=== PATIENT | female | born 1980 | race Caucasian/White ===

== ENCOUNTER → 2016-06-25 | Outpatient (REF) | payer OTHER ==
[2016-06-25 14:51] LABS: BASO % 0.2 % (0.0-1.0); EOS # 0.1 K/mm3 (0.0-0.50); EOS % 1.4 % (0.0-3.0); LARGE UNSTAINED CELL # 0.1 K/mm3 (0.0-0.4); LARGE UNSTAINED CELL % 2.1 % (0.0-4.0); LYMPH # 1.5 K/mm3 (1.5-4.5); LYMPH % 23.6 % (24.0-44.0); MEAN CORPUSCULAR HEMOGLOBIN 29.3 pg (27.0-33.0); MEAN CORPUSCULAR HGB CONC 32.5 g/dl (32.0-36.5); MEAN CORPUSCULAR VOLUME 90.3 fl (80.0-96.0); MONO # 0.3 K/mm3 (0.0-0.8); MONO % 5.6 % (0.0-5.0); NEUTROPHILS % 67.1 % (36.0-66.0); PLATELET COUNT, AUTOMATED 261 k/mm3 (150-450); RED CELL DISTRIBUTION WIDTH 13.3 % (11.5-14.5); WHITE BLOOD COUNT 5.9 K/mm3 (4.0-10.0)
== END ==
LOC: M LABNEURO 12:57
PROVIDERS: ATTEND Physician Assistant Medical
DX: E55.9 Vitamin D deficiency, unspecified (principal); G70.00 Myasthenia gravis without (acute) exacerbation

== ENCOUNTER → 2016-11-28 | Outpatient (REF) | payer OTHER ==
[~2016-11-28] MED LIST: CELL500T PO; DIAZ1CON PO; DIAZ5TAB PO; GABA-282 PO; LORA10TA2 PO; MAGNESIUM OIL TOP; MEST60TA PO; METH36TA2 PO; MOME50SP; VITA1CAP7 PO; ZOLO100T PO
[2016-11-28 21:11] LABS: BASO % 0.5 % (0.0-1.0); EOS # 0.2 K/mm3 (0.0-0.50); EOS % 2.3 % (0.0-3.0); LARGE UNSTAINED CELL # 0.1 K/mm3 (0.0-0.4); LARGE UNSTAINED CELL % 1.9 % (0.0-4.0); LYMPH # 1.7 K/mm3 (1.5-4.5); LYMPH % 23.1 % (24.0-44.0); MEAN CORPUSCULAR HEMOGLOBIN 29.8 pg (27.0-33.0); MEAN CORPUSCULAR HGB CONC 32.3 g/dl (32.0-36.5); MEAN CORPUSCULAR VOLUME 92.1 fl (80.0-96.0); MONO # 0.4 K/mm3 (0.0-0.8); MONO % 5.9 % (0.0-5.0); NEUTROPHILS # 4.6 K/mm3 (1.8-7.7); NEUTROPHILS % 66.5 % (36.0-66.0); PLATELET COUNT, AUTOMATED 231 k/mm3 (150-450); RED CELL DISTRIBUTION WIDTH 13.2 % (11.5-14.5); WHITE BLOOD COUNT 6.8 K/mm3 (4.0-10.0)
[2016-12-01 10:35] LABS: CONTROL LINE MONO RF C INT CTR LINE PRESENT
== END ==
LOC: M LABDRWAD 09:18
PROVIDERS: ATTEND Physician Assistant Medical
DX: R59.0 Localized enlarged lymph nodes (principal)

== ENCOUNTER → 2016-12-20 | Outpatient (REF) | payer OTHER ==
[2016-12-20 16:01] LABS: BASO % 0.3 % (0.0-1.0); EOS % 0.1 % (0.0-3.0); IMMATURE GRANULOCYTE % 0.4 % (0-0); LYMPH # 2.4 10^3/uL (1.5-4.5); LYMPH % 16.2 % (24.0-44.0); MEAN CORPUSCULAR HEMOGLOBIN 29.5 pg (27.0-33.0); MEAN CORPUSCULAR HGB CONC 32.7 g/dl (32.0-36.5); MONO # 0.6 10^3/uL (0.0-0.8); MONO % 4.1 % (0.0-5.0); NEUTROPHILS # 11.9 10^3/uL (1.8-7.7); NEUTROPHILS % 78.9 % (36.0-66.0); PLATELET COUNT, AUTOMATED 297 10^3/uL (150-450); RED CELL DISTRIBUTION WIDTH 13.2 % (11.5-14.5)
[2016-12-20 16:02] LABS: ADD MORPHOLOGY? NO
[2016-12-20 16:25] LABS: ERYTHROCYTE SEDIMENTATION RATE 6 mm/hr (0-20)
[2016-12-20 16:34] LABS: ALT/SGPT 21 U/L (12-78); AST/SGOT 10 U/L (15-37)
[2016-12-22 10:55] LABS: FOLATE > 24.0 NG/ML; VITAMIN B12 LEVEL 760 PG/ML
[2016-12-24 16:03] LABS: Lyme Disease IgG/IgM Antibodie See Separate Report
== END ==
LOC: M LABDRWAD 15:58
PROVIDERS: ATTEND Physician Assistant Medical
DX: R51 Headache (principal); M79.7 Fibromyalgia

== ENCOUNTER → 2016-12-26 | Outpatient (REF) | payer OTHER ==
[2016-12-26 20:25] LABS: MEAN CORPUSCULAR HEMOGLOBIN 28.8 pg (27.0-33.0); MEAN CORPUSCULAR HGB CONC 32.2 g/dl (32.0-36.5); MEAN CORPUSCULAR VOLUME 89.6 fl (80.0-96.0); RED CELL DISTRIBUTION WIDTH 13.3 % (11.5-14.5); WHITE BLOOD COUNT 10.8 10^3/uL (4.0-10.0)
[2016-12-26 20:31] LABS: ANION GAP 5 MEQ/L (8-16); BLOOD UREA NITROGEN 14 MG/DL (7-18); CALCIUM LEVEL 9.3 MG/DL (8.5-10.1); CARBON DIOXIDE LEVEL 29 MEQ/L (21-32); CHLORIDE LEVEL 107 MEQ/L (98-107); CREATININE FOR GFR 0.85 MG/DL (0.55-1.02); GLOMERULAR FILTRATION RATE > 60.0 (>60); GLUCOSE, FASTING 89 MG/DL (70-105); POTASSIUM SERUM 4.3 MEQ/L (3.5-5.1); SODIUM LEVEL 141 MEQ/L (136-145)
== END ==
LOC: M LABSMT 13:36
PROVIDERS: ATTEND Specialist
DX: Z01.812 Encounter for preprocedural laboratory examination (principal); N39.3 Stress incontinence (female) (male); N32.81 Overactive bladder

== ENCOUNTER → 2016-12-31 | Outpatient (CLI) | payer OTHER ==
--- NOTE | 2016-12-31 14:12 | PFTRPT ---
Tech: Franklin PALOMINO RRT Age: 36 Sex: Female Race: Height: 65.00 Inches Weight: 187.00 Lbs BSA: 1.92 Diagnosis: G70.00 PULMONARY FUNCTION REPORT ORDERING PROVIDER: Jamilah Ya DO DATE OF SERVICE: 12/31/16 SPIROMETRY: Excellent technical quality. The forced vital capacity is normal. The FEV1 is in proportion. The obstructive index is, therefore, normal. FLOW VOLUME LOOP: The expiratory limb of the flow volume loop is normal. LUNG VOLUMES: The total lung capacity is normal. The residual volume is in proportion. DIFFUSION CAPACITY: The diffusion capacity is minimally reduced, but is appropriate for alveolar volume. HEMOGLOBIN: No hemoglobin is available for correction. AIRWAY MECHANICS: Airways resistance and conductance are normal. IMPRESSION: Mild reduction in the absolute diffusion capacity. Please correlate clinically. MTDD
== END ==
LOC: M CARPUL 13:37
PROVIDERS: ATTEND Family Medicine
DX: G70.00 Myasthenia gravis without (acute) exacerbation (principal)

== ENCOUNTER → 2016-12-31 | Outpatient (CLI) | payer OTHER ==
--- NOTE | 2017-01-01 06:29 | REP ---
Clinical: Preoperative assessment . Comparison: 11/07/2009 . Technique: PA and lateral. Findings: The mediastinum and cardiac silhouette are normal. Evidence for prior sternotomy. Airway is patent and midline. The lung tanner are clear and without acute consolidation, effusion, or pneumothorax. The skeletal structures are intact and normal. Impression: 1. No acute cardiopulmonary process. Signed by Mt Esteban MD 01/01/2017 06:21 A
== END ==
LOC: M ADAMS 15:21
PROVIDERS: ATTEND Family Medicine
DX: Z01.810 Encounter for preprocedural cardiovascular examination (principal)

== ENCOUNTER → 2017-01-01 | Outpatient (REF) | payer OTHER | LOC: M SFHCADAM 09:16 | PROVIDERS: ATTEND Family Medicine | DX: Z01.419 Encounter for gynecological examination (general) (routine) without abnormal findings (principal) ==

== ENCOUNTER 2017-01-06 09:41 | Day surgery (SDC) | payer OTHER ==
[~2017-01-06] VITALS: Ht 165.1 cm; Wt 84.8 kg
[~2017-01-06 09:41] MED LIST changes: -MAGNESIUM OIL TOP
[2017-01-06] MEDS ORDERED: LR 1,000 ML IV ONE (10:00)
[2017-01-06] MEDS ORDERED: MAGNESIUM OIL TOP (10:49)
[2017-01-06] MEDS ORDERED: PROPOFOL 200 MG/20 ML VIAL As Ordered ONE ×3 (11:11→12:54)
[2017-01-06] MEDS ORDERED: MIDAZOLAM INJ 2 MG/2 ML VIAL (J2250) As Ordered ONE ×2 (11:12→12:00)
[2017-01-06] MEDS ORDERED: fentaNYL 100 MCG/2 ML INJECTION (J3010) As Ordered ONE (11:12)
[2017-01-06] MEDS ORDERED: LIDOCAINE 1% SDV INJ 30 ML VIAL As Ordered ONE (11:15)
[2017-01-06] MEDS ORDERED: SODIUM BICARBONATE 4.2% INJ 10 ML SYRINGE As Ordered ONE (11:15)
[2017-01-06] MEDS ORDERED: LIDOCAINE 1% MDV INJ 50 ML VIAL As Ordered ONE (11:18)
[2017-01-06] MEDS ORDERED: BACITRACIN PWD 50,000 UNITS VIAL As Ordered ONE (12:44)
--- NOTE | 2017-01-06 13:47 | REP ---
C-ARM VIEWS PELVIS: Two C-arm views of the pelvis performed during placement of InterStim device. Catheter is seen with the tip in the right pelvic region. 22 seconds fluoroscopy time utilized. Signed by Mauricio Cruz MD 01/06/2017 08:00 P
[2017-01-06] MEDS ORDERED: PERCOCET 5MG/325MG TAB PO ONE (14:00)
[2017-01-06 15:07] VITALS: BP 157/85
--- NOTE | 2017-01-06 18:10 | RO ---
DATE OF PROCEDURE: 01/06/2017 PREOPERATIVE DIAGNOSIS: Urinary urgency, frequency, and urge incontinence. POSTOPERATIVE DIAGNOSIS: Urinary urgency, frequency, and urge incontinence. PROCEDURE: Placement of a right neurostimulator electrode and implantable pulse generator with the InterStim device. SURGEON: Dr. Toyin Perez MILLING SUPERVISOR: ANESTHESIA: MAC. MEDICATIONS: Ancef 2 grams preoperatively. DRAINS: None. COMPLICATIONS: None. FINDINGS: The patient felt the neurostimulator on the right side of the vaginal region, and she also had anal bellowing and toes at low amplitudes. INDICATIONS FOR PROCEDURE: The patient is a 36-year-old female with myasthenia gravis with severe urinary urgency, frequency, and occasional urge incontinence in a patient who was unable to tolerate anticholinergic medications because of severe fatigue. She voided as often as 20 times a day with nocturia times four. Urodynamic studies were done 11/06, and this showed urgency at only 57 mL and a maximum capacity of only 127 mL. We did a bilateral percutaneous InterStim test in the office on 12/18/2016, and the right sided lead helped significantly where she could hold her urine for 3-4 hours at a time, which was a significant improvement for her. After discussing all different options, alternatives, risks, and benefits, it was decided to bring her to the operating room for placement of the InterStim device in what we used to call stage I and stage II with placement of the percutaneous neurostimulator electrode and implantable pulse generator at the same time. The risks discussed included but were not limited to general anesthesia, reactions to medication, infections, bleeding, not having the same results that she wished that she could have, nerve injury, pain from the device, problems with the device itself or with the neurostimulator electrode requiring revisions in the future, and knowing that the battery will not last forever, pain at the implantable pulse generator site and movement of the implantable pulse generator, again also requiring revisions. We were very clear that this procedure oftentimes comes with revisions and issues that do need to be dealt with on an ongoing basis. After clearly understanding all different options, alternatives, risks, and benefits, we decided to proceed with the procedure. DESCRIPTION OF PROCEDURE: The patient was brought into the operating room and placed prone on the padded operating room table. MAC was given. She was prepped and draped in the usual fashion. 1% lidocaine with sodium bicarbonate was then mixed and local anesthesia was given in the area of where the percutaneous electrode was placed previously on the right-hand side. We had marked the area where the percutaneous electrode was on the right. Fluoroscopy was then utilized, and we were able to visualize midline and the area of the S3 foramen. A needle was then placed through the previous site, and we were able to get into what appeared to be the S3 foramen by fluoroscopy. At this point, the needle was tested, and she felt this in the vaginal region and also had good movement of her first toe and anal bellowing. Next, an incision was made over the needle and using a Seldinger technique, a permanent neurostimulator electrode was then placed. This was tested on 0, 1, 2 and 3. It was placed a little bit deeper than we are accustomed to and we did not straddle the bone at 2 and 3 because we got better results on 0, 1, 2 and 3 when this was deeper. On all these leads, she felt this vaginally with excellent first toe movement and anal bellowing at very low amplitudes. When this was decided it was in excellent placement, the lead was left in place and fluoroscopy images were saved. Next, an incision was made over her right upper buttocks in an area that was mapped out in the preoperative area where it would be comfortable to place her implantable pulse generator. At this point, an approximately 4 cm incision was made, and this was brought down to fascia and an area for the neurostimulator pocket was then made using sharp and blunt dissection. Copious antibiotic irrigation was utilized and hemostasis was obtained using electrocautery. Next, the neurostimulator electrode was tunneled from the midline out through the area of the implantable pulse generator on the right upper buttocks and then this was attached. The neurostimulator electrode was then attached to the implantable pulse generator. The implantable pulse generator was then placed in the pocket making sure that the InterStim logo was face-up. Once this was in the pocket, this was tested and impedance was normal and all the leads appeared to be functioning correctly. The pocket was just large enough for the implantable pulse generator to fit correctly and next, tissue was brought over the neurostimulator electrode and then Yessica's fascia was also reapproximated using #2-0 chromic sutures. Skin was closed using jarrett. The patient tolerated the procedure well and was returned to the recovery room in stable condition.
[2017-01-06] MEDS ORDERED: CEPHALEXIN 500 MG CAP PO SCH (21:00)
== END 2017-01-06 15:08 | disposition home or self-care (01) ==
LOC: M SDC 09:41
PROVIDERS: ATTEND Specialist
DX: R39.15 Urgency of urination (principal); R35.0 Frequency of micturition; N39.41 Urge incontinence; N32.81 Overactive bladder; R53.83 Other fatigue; N83.209 Unspecified ovarian cyst, unspecified side; K21.9 Gastro-esophageal reflux disease without esophagitis; G70.00 Myasthenia gravis without (acute) exacerbation; F32.9 Major depressive disorder, single episode, unspecified; F90.9 Attention-deficit hyperactivity disorder, unspecified type; M79.7 Fibromyalgia; F41.9 Anxiety disorder, unspecified; G62.9 Polyneuropathy, unspecified; R06.83 Snoring; G47.33 Obstructive sleep apnea (adult) (pediatric); Z88.1 Allergy status to other antibiotic agents; Z88.8 Allergy status to other drugs, medicaments and biological substances; Z91.018 Allergy to other foods; Z91.09 Other allergy status, other than to drugs and biological substances; Z79.899 Other long term (current) drug therapy; Z87.891 Personal history of nicotine dependence; Z98.51 Tubal ligation status
CPT/HCPCS: 64581; 64590; 76000; C1767; C1787

== ENCOUNTER → 2017-01-31 | Outpatient (REF) | payer OTHER ==
[~2017-01-31] MED LIST changes: +MAGNESIUM OIL TOP; +PRED20TA PO; +VALI5TAB PO; +VIIB10TA
== END ==
LOC: M LAB REF 07:21
PROVIDERS: ATTEND Physician Assistant
DX: J02.9 Acute pharyngitis, unspecified (principal)

== ENCOUNTER 2017-02-04 17:57 | Emergency (ER) | payer OTHER ==
[~2017-02-04] VITALS: Ht 165.1 cm; Wt 84.1 kg
[~2017-02-04 17:57] MED LIST changes: -PRED20TA PO; -VALI5TAB PO; -VIIB10TA
[2017-02-04] MEDS ORDERED: VALI5TAB PO (18:08)
[2017-02-04] MEDS ORDERED: PRED20TA PO (18:08)
[2017-02-04] MEDS ORDERED: VIIB10TA (18:08)
[2017-02-04] MEDS ORDERED: MORPHINE 2 MG/ML 1ML SYRINGE IV ONE (20:30)
[2017-02-04] MEDS ORDERED: ONDANSETRON 4MG/2ML VIAL (J2405) IV ONE (20:30)
[2017-02-04] MEDS ORDERED: MORPHINE 2 MG/ML 1ML SYRINGE As Ordered ONE (21:13)
[2017-02-04] MEDS ORDERED: ONDANSETRON 4MG/2ML VIAL (J2405) As Ordered ONE (21:13)
[2017-02-04 21:14] LABS: MEAN CORPUSCULAR HEMOGLOBIN 29.3 pg (27.0-33.0); MEAN CORPUSCULAR HGB CONC 32.9 g/dl (32.0-36.5); MEAN CORPUSCULAR VOLUME 89.3 fl (80.0-96.0); PLATELET COUNT, AUTOMATED 297 10^3/uL (150-450); RED CELL DISTRIBUTION WIDTH 13.8 % (11.5-14.5); WHITE BLOOD COUNT 13.8 10^3/uL (4.0-10.0)
[2017-02-04] MEDS ORDERED: diphenhydrAMINE INJ 50MG/ML VIAL (J1200) IV STA (21:27)
[2017-02-04] MEDS ORDERED: diphenhydrAMINE INJ 50MG/ML VIAL (J1200) As Ordered ONE (21:29)
[2017-02-04 21:37] LABS: INR 0.93
[2017-02-04 21:47] LABS: ANION GAP 6 MEQ/L (8-16); BLOOD UREA NITROGEN 19 MG/DL (7-18); CALCIUM LEVEL 9.2 MG/DL (8.5-10.1); CARBON DIOXIDE LEVEL 25 MEQ/L (21-32); CHLORIDE LEVEL 109 MEQ/L (98-107); GLOMERULAR FILTRATION RATE > 60.0 (>60); GLUCOSE, FASTING 92 MG/DL (70-105); POTASSIUM SERUM 3.8 MEQ/L (3.5-5.1); SODIUM LEVEL 140 MEQ/L (136-145)
[2017-02-04 22:20] VITALS: BP 157/97
--- NOTE | 2017-02-05 07:50 | REP ---
Clinical: Atypical headaches . Comparison: 12/25/2008 . Findings: The ventricles, sulci, and cisterns are normal in position and appearance. Cruz-white differentiation is maintained. No acute intracranial hemorrhage, mass/mass effect, pathology or trauma/injury. No evidence for acute infarction. No extra-axial fluid collection. Calvarium is intact. Paranasal sinuses and mastoid air cells are clear. Impression: Normal noncontrast head CT. No evidence for acute intracranial pathology or trauma/injury. Signed by Mt Esteban MD 02/05/2017 07:42 A
== END 2017-02-04 22:23 | disposition home or self-care (01) ==
LOC: M ED 17:57
DX: R51 Headache (principal); G70.01 Myasthenia gravis with (acute) exacerbation; M79.7 Fibromyalgia; Z79.52 Long term (current) use of systemic steroids; Z79.899 Other long term (current) drug therapy; Z88.8 Allergy status to other drugs, medicaments and biological substances; Z88.2 Allergy status to sulfonamides; Z88.1 Allergy status to other antibiotic agents; Z91.048 Other nonmedicinal substance allergy status; Z91.018 Allergy to other foods; J30.89 Other allergic rhinitis
CPT/HCPCS: 70450; 80048; 85027; 85610; 96374; 96375; 99284; J1200; J2405

== ENCOUNTER → 2017-04-06 | Outpatient (CLI) | payer OTHER | LOC: M PAIN 11:00 | DX: R52 Pain, unspecified (principal); M79.7 Fibromyalgia; Z79.899 Other long term (current) drug therapy; Z87.891 Personal history of nicotine dependence; Z88.1 Allergy status to other antibiotic agents; Z88.8 Allergy status to other drugs, medicaments and biological substances | CPT/HCPCS: G0463 ==

== ENCOUNTER → 2017-04-10 | Outpatient (REF) | payer OTHER ==
[2017-04-10 21:33] LABS: BASO # 0.1 10^3/uL (0.0-0.2); BASO % 0.9 % (0.0-1.0); EOS # 0.1 10^3/uL (0.0-0.50); EOS % 0.8 % (0.0-3.0); HEMATOCRIT 44.3 % (36.0-47.0); HEMOGLOBIN 14.3 g/dl (12.0-16.0); IMMATURE GRANULOCYTE % 0.3 % (0-0); LYMPH % 30.5 % (24.0-44.0); MEAN CORPUSCULAR HEMOGLOBIN 29.2 pg (27.0-33.0); MEAN CORPUSCULAR HGB CONC 32.3 g/dl (32.0-36.5); MEAN CORPUSCULAR VOLUME 90.4 fl (80.0-96.0); MONO # 0.6 10^3/uL (0.0-0.8); MONO % 8.9 % (0.0-5.0); NEUTROPHILS # 3.8 10^3/uL (1.8-7.7); NEUTROPHILS % 58.6 % (36.0-66.0); PLATELET COUNT, AUTOMATED 304 10^3/uL (150-450); RED CELL DISTRIBUTION WIDTH 13.1 % (11.5-14.5); WHITE BLOOD COUNT 6.4 10^3/uL (4.0-10.0)
[2017-04-10 21:51] LABS: ALBUMIN 4.4 GM/DL (3.2-5.2); ALBUMIN/GLOBULIN RATIO 1.42 (1.00-1.93); ALKALINE PHOSPHATASE 69 U/L (45-117); ALT/SGPT 17 U/L (12-78); ANION GAP 4 MEQ/L (8-16); AST/SGOT 8 U/L (7-37); BILIRUBIN,TOTAL 0.4 MG/DL (0.2-1.0); BLOOD UREA NITROGEN 13 MG/DL (7-18); C REACTIVE PROTEIN QUANTITATIV < 0.30 MG/DL (0.00-0.30); CARBON DIOXIDE LEVEL 30 MEQ/L (21-32); CHLORIDE LEVEL 107 MEQ/L (98-107); CREATININE FOR GFR 0.92 MG/DL (0.55-1.02); GLOMERULAR FILTRATION RATE > 60.0 (>60); GLUCOSE, FASTING 108 MG/DL (70-105); POTASSIUM SERUM 4.6 MEQ/L (3.5-5.1); SODIUM LEVEL 141 MEQ/L (136-145); TOTAL PROTEIN 7.5 GM/DL (6.4-8.2)
[2017-04-10 22:10] LABS: ERYTHROCYTE SEDIMENTATION RATE 3 mm/hr (0-20)
[2017-04-15 00:06] LABS: Lyme Disease IgG/IgM Antibodie <0.91 ISR (0.00-0.90); Lyme Disease IgM Ab Quantitati <0.80 index (0.00-0.79)
== END ==
LOC: M LAB 04-11 12:34
DX: M79.1 Myalgia (principal)

== ENCOUNTER 2017-04-28 10:01 | Outpatient (RCR) | payer OTHER | END 2017-05-20 | LOC: M PT 10:01 | DX: Z51.89 Encounter for other specified aftercare (principal); R52 Pain, unspecified; M54.5 Low back pain | CPT/HCPCS: 97010 ==

== ENCOUNTER 2017-05-11 11:45 | Emergency (ER) | payer OTHER ==
[2017-05-11 12:54] LABS: BASO # 0.1 10^3/uL (0.0-0.2); BASO % 0.8 % (0.0-1.0); EOS # 0.1 10^3/uL (0.0-0.50); EOS % 0.8 % (0.0-3.0); HEMATOCRIT 41.1 % (36.0-47.0); HEMOGLOBIN 13.6 g/dl (12.0-16.0); IMMATURE GRANULOCYTE % 0.3 % (0-3.0); LYMPH # 1.5 10^3/uL (1.5-4.5); LYMPH % 22.6 % (24.0-44.0); MEAN CORPUSCULAR HEMOGLOBIN 29.1 pg (27.0-33.0); MEAN CORPUSCULAR HGB CONC 33.1 g/dl (32.0-36.5); MEAN CORPUSCULAR VOLUME 87.8 fl (80.0-96.0); MONO # 0.5 10^3/uL (0.0-0.8); MONO % 7.1 % (0.0-5.0); NEUTROPHILS # 4.6 10^3/uL (1.8-7.7); NEUTROPHILS % 68.4 % (36.0-66.0); PLATELET COUNT, AUTOMATED 296 10^3/uL (150-450); RED BLOOD COUNT 4.68 10^6/uL (4.00-5.40); RED CELL DISTRIBUTION WIDTH 13.5 % (11.5-14.5); WHITE BLOOD COUNT 6.6 10^3/uL (4.0-10.0)
[2017-05-11] MEDS: LORazepam 2 MG/ML VIAL (J2060) IV (13:01)
[2017-05-11 13:25] LABS: ALBUMIN 4.2 GM/DL (3.2-5.2); ALBUMIN/GLOBULIN RATIO 1.35 (1.00-1.93); ALKALINE PHOSPHATASE 69 U/L (45-117); ALT/SGPT 30 U/L (12-78); ANION GAP 5 MEQ/L (8-16); AST/SGOT 17 U/L (7-37); BILIRUBIN,TOTAL 0.5 MG/DL (0.2-1.0); BLOOD UREA NITROGEN 6 MG/DL (7-18); C REACTIVE PROTEIN QUANTITATIV < 0.30 MG/DL (0.00-0.30); CARBON DIOXIDE LEVEL 26 MEQ/L (21-32); CHLORIDE LEVEL 109 MEQ/L (98-107); CREATININE FOR GFR 0.93 MG/DL (0.55-1.30); GLOMERULAR FILTRATION RATE > 60.0 (>60); GLUCOSE, FASTING 94 MG/DL (70-100); POTASSIUM SERUM 4.1 MEQ/L (3.5-5.1); SODIUM LEVEL 140 MEQ/L (136-145); TOTAL PROTEIN 7.3 GM/DL (6.4-8.2)
[2017-05-11 13:40] LABS: ERYTHROCYTE SEDIMENTATION RATE 5 mm/hr (0-20)
[2017-05-14 14:12] LABS: SEROTONIN QUANTITATIVE LEVEL 9 ng/mL (0-420)
== END 2017-05-11 14:35 | disposition home or self-care (01) ==
LOC: M ED 11:45
DX: R25.2 Cramp and spasm (principal); M25.60 Stiffness of unspecified joint, not elsewhere classified; M79.7 Fibromyalgia; G70.01 Myasthenia gravis with (acute) exacerbation; Z98.890 Other specified postprocedural states; Z91.048 Other nonmedicinal substance allergy status; Z88.8 Allergy status to other drugs, medicaments and biological substances; Z88.1 Allergy status to other antibiotic agents; Z88.2 Allergy status to sulfonamides
CPT/HCPCS: J2060

== ENCOUNTER → 2017-05-12 | Outpatient (REF) | payer OTHER ==
[2017-05-12 15:02] LABS: BASO # 0.1 10^3/uL (0.0-0.2); BASO % 0.8 % (0.0-1.0); EOS # 0.1 10^3/uL (0.0-0.50); HEMATOCRIT 42.8 % (36.0-47.0); HEMOGLOBIN 13.8 g/dl (12.0-16.0); IMMATURE GRANULOCYTE % 0.3 % (0-3.0); LYMPH # 1.6 10^3/uL (1.5-4.5); LYMPH % 25.2 % (24.0-44.0); MEAN CORPUSCULAR HEMOGLOBIN 28.6 pg (27.0-33.0); MEAN CORPUSCULAR HGB CONC 32.2 g/dl (32.0-36.5); MEAN CORPUSCULAR VOLUME 88.8 fl (80.0-96.0); MONO # 0.5 10^3/uL (0.0-0.8); MONO % 7.4 % (0.0-5.0); NEUTROPHILS % 65.3 % (36.0-66.0); PLATELET COUNT, AUTOMATED 304 10^3/uL (150-450); RED BLOOD COUNT 4.82 10^6/uL (4.00-5.40); RED CELL DISTRIBUTION WIDTH 13.6 % (11.5-14.5); WHITE BLOOD COUNT 6.2 10^3/uL (4.0-10.0)
[2017-05-12 15:11] LABS: ALBUMIN/GLOBULIN RATIO 1.43 (1.00-1.93); ALKALINE PHOSPHATASE 68 U/L (45-117); ALT/SGPT 23 U/L (12-78); ANION GAP 8 MEQ/L (8-16); AST/SGOT 14 U/L (7-37); BILIRUBIN,TOTAL 0.6 MG/DL (0.2-1.0); BLOOD UREA NITROGEN 6 MG/DL (7-18); CALCIUM LEVEL 9.2 MG/DL (8.5-10.1); CARBON DIOXIDE LEVEL 27 MEQ/L (21-32); CHLORIDE LEVEL 106 MEQ/L (98-107); CREATININE FOR GFR 0.98 MG/DL (0.55-1.30); GLOMERULAR FILTRATION RATE > 60.0 (>60); GLUCOSE, FASTING 88 MG/DL (70-100); POTASSIUM SERUM 4.2 MEQ/L (3.5-5.1); SODIUM LEVEL 141 MEQ/L (136-145); TOTAL PROTEIN 6.8 GM/DL (6.4-8.2)
== END ==
LOC: M LABNEURO 09:48
DX: G70.00 Myasthenia gravis without (acute) exacerbation (principal)

== ENCOUNTER → 2017-07-06 | Outpatient (REF) | payer OTHER ==
[2017-07-06 19:25] LABS: OSMOLALITY SERUM 281 MOSM/KG (275-295)
[2017-07-06 19:31] LABS: ALBUMIN 3.9 GM/DL (3.2-5.2); ALBUMIN/GLOBULIN RATIO 1.18 (1.00-1.93); ALKALINE PHOSPHATASE 83 U/L (45-117); ALT/SGPT 32 U/L (12-78); ANION GAP 5 MEQ/L (8-16); AST/SGOT 20 U/L (7-37); BILIRUBIN,TOTAL 0.5 MG/DL (0.2-1.0); BLOOD UREA NITROGEN 9 MG/DL (7-18); CALCIUM LEVEL 9.1 MG/DL (8.5-10.1); CARBON DIOXIDE LEVEL 27 MEQ/L (21-32); CHLORIDE LEVEL 108 MEQ/L (98-107); CREATININE FOR GFR 0.88 MG/DL (0.55-1.30); GLOMERULAR FILTRATION RATE > 60.0 (>60); GLUCOSE, FASTING 98 MG/DL (70-100); POTASSIUM SERUM 3.8 MEQ/L (3.5-5.1); SODIUM LEVEL 140 MEQ/L (136-145); TOTAL PROTEIN 7.2 GM/DL (6.4-8.2); URIC ACID 5.1 MG/DL (2.6-6.0)
[2017-07-06 19:45] LABS: CORTISOL PM 10.7 UG/DL (3.1-16.7)
[2017-07-07 13:17] LABS: OSMOLALITY URINE 619 MOSM/KG (500-800)
== END ==
LOC: M LABDRWAD 18:44
DX: E22.2 Syndrome of inappropriate secretion of antidiuretic hormone (principal)

== ENCOUNTER 2017-08-27 11:23 | Emergency (ER) | payer OTHER ==
[2017-08-27 12:03] LABS: KETONE, URINE AUTO RFX NEGATIVE (NEGATIVE); NITRITE, URINE AUTO RFX NEGATIVE (NEGATIVE); RBC, URINE AUTO RFX TNTC /HPF (0-3); SPECIFIC GRAVITY UR AUTO RFX 1.027 (1.002-1.035); SQUAM EPITHELIAL CELL UR AURFX 2 /HPF (0-6)
[2017-08-27 12:14] LABS: LEUKOCYTE ESTERASE UR AUTO RFX 3+ (NEGATIVE); WBC, URINE AUTO RFX TNTC /HPF (0-3)
[2017-08-27] MEDS: PHENAZOPYRIDINE 100 MG TAB PO (13:56)
[2017-08-27] MEDS: CEPHALEXIN 500 MG CAP PO (13:56)
[2017-08-27] MEDS: IBUPROFEN 800 MG TAB PO (13:57)
== END 2017-08-27 14:00 | disposition home or self-care (01) ==
LOC: M ED 11:23
DX: N30.01 Acute cystitis with hematuria (principal); G70.01 Myasthenia gravis with (acute) exacerbation; M79.7 Fibromyalgia; K21.9 Gastro-esophageal reflux disease without esophagitis; F90.9 Attention-deficit hyperactivity disorder, unspecified type; Z87.42 Personal history of other diseases of the female genital tract; Z91.048 Other nonmedicinal substance allergy status; Z91.018 Allergy to other foods; Z88.8 Allergy status to other drugs, medicaments and biological substances; Z88.2 Allergy status to sulfonamides; Z88.1 Allergy status to other antibiotic agents; Z79.899 Other long term (current) drug therapy
CPT/HCPCS: 81001

== ENCOUNTER 2017-08-31 12:17 | Inpatient (IN) | payer MEDICAID, OTHER ==
[2017-08-31 13:28] LABS: HEMATOCRIT 40.2 % (36.0-47.0); HEMOGLOBIN 13.3 g/dl (12.0-15.5); MEAN CORPUSCULAR HEMOGLOBIN 30.6 pg (27.0-33.0); MEAN CORPUSCULAR HGB CONC 33.1 g/dl (32.0-36.5); MEAN CORPUSCULAR VOLUME 92.4 fl (80.0-96.0); PLATELET COUNT, AUTOMATED 264 10^3/uL (150-450); RED BLOOD COUNT 4.35 10^6/uL (4.00-5.40); RED CELL DISTRIBUTION WIDTH 13.2 % (11.5-14.5); WHITE BLOOD COUNT 6.3 10^3/uL (4.0-10.0)
[2017-08-31 13:40] LABS: CONTROL LINE HCG INT CTR LINE PRESENT; HCG, SERUM QUALITATIVE NEGATIVE (NEGATIVE)
[2017-08-31 13:47] LABS: AMPHETAMINES LEVEL URINE NEGATIVE (NEGATIVE); BARBITURATES URINE NEGATIVE (NEGATIVE); BENZODIAZEPINES URINE NEGATIVE (NEGATIVE); CANNABINOIDS URINE POSITIVE (NEGATIVE); COCAINE METABOLITE URINE NEGATIVE (NEGATIVE); METHADONE URINE NEGATIVE (NEGATIVE); OPIATES URINE NEGATIVE (NEGATIVE); PHENCYCLIDINE URINE NEGATIVE (NEGATIVE)
[2017-08-31 13:55] LABS: ACETAMINOPHEN LEVEL < 2.0 UG/ML (10.0-30.0); ALBUMIN/GLOBULIN RATIO 1.29 (1.00-1.93); ALKALINE PHOSPHATASE 74 U/L (45-117); ALT/SGPT 18 U/L (12-78); ANION GAP 6 MEQ/L (8-16); AST/SGOT 11 U/L (7-37); BILIRUBIN,DIRECT 0.1 MG/DL (0.0-0.2); BILIRUBIN,TOTAL 0.4 MG/DL (0.2-1.0); BLOOD UREA NITROGEN 12 MG/DL (7-18); CALCIUM LEVEL 9.1 MG/DL (8.5-10.1); CARBON DIOXIDE LEVEL 27 MEQ/L (21-32); CHLORIDE LEVEL 108 MEQ/L (98-107); CREATININE FOR GFR 0.89 MG/DL (0.55-1.30); ETHYL ALCOHOL (ETHANOL) < 0.003 % (0.000-0.010); GLOMERULAR FILTRATION RATE > 60.0 (>60); GLUCOSE, FASTING 92 MG/DL (70-100); SALICYLATE LEVEL < 1.7 MG/DL (5.0-30.0); SODIUM LEVEL 141 MEQ/L (136-145); TOTAL PROTEIN 7.1 GM/DL (6.4-8.2)
[2017-08-31] MEDS: KETOROLAC 30 MG/ML VIAL (J1885) IM (15:49)
[2017-08-31] MEDS: diphenhydrAMINE 25 MG CAP PO (15:49)
[2017-08-31] MEDS: FIORICET TAB PO (15:49)
[2017-08-31] MEDS ORDERED: ENTER DRUG NAME HERE (PATIENT'S OWN MED) PO (21:00)
[2017-08-31] MEDS: CEPHALEXIN 500 MG CAP PO (21:11)
[2017-08-31] MEDS: traZODone 50 MG TAB PO (21:12)
[2017-08-31] MEDS: MYCOPHENOLATE MOFETIL 250 MG CAP (J7517) PO (21:12)
[2017-08-31] MEDS: ACYCLOVIR 200 MG CAPSULE PO (21:12)
[2017-08-31] MEDS: PREGABALIN 100 MG CAP (LYRICA) PO (21:12)
[2017-08-31] MEDS: IBUPROFEN 400 MG TAB PO (21:12)
[2017-08-31] MEDS: PYRIDOSTIGMINE 60 MG TAB PO (21:13)
[2017-08-31] MEDS: PILL CRUSHER/CUTTER 1 EACH XX (21:34)
[2017-09-01] MEDS: CEPHALEXIN 500 MG CAP PO ×3 (06:01→21:40)
[2017-09-01] MEDS: IBUPROFEN 400 MG TAB PO ×2 (06:03→10:16)
[2017-09-01] MEDS: PILL CRUSHER/CUTTER 1 EACH XX ×3 (08:43→17:37)
[2017-09-01] MEDS: VITAMIN D 1,000 INTERNATIONAL UNITS TABLET PO (08:43)
[2017-09-01] MEDS: MYCOPHENOLATE MOFETIL 250 MG CAP (J7517) PO ×3 (08:43→20:41)
[2017-09-01] MEDS: PYRIDOSTIGMINE 60 MG TAB PO ×4 (08:43→20:42)
[2017-09-01] MEDS: ACYCLOVIR 200 MG CAPSULE PO ×2 (08:44→20:41)
[2017-09-01] MEDS: PREGABALIN 50 MG CAP (LYRICA) PO (08:44)
[2017-09-01] MEDS: FOLIC ACID 1 MG TAB PO (08:44)
[2017-09-01 13:22] LABS: KETONE, URINE AUTO RFX NEGATIVE (NEGATIVE); LEUKOCYTE ESTERASE UR AUTO RFX NEGATIVE (NEGATIVE); MUCUS, URINE RFX SMALL (NEGATIVE); NITRITE, URINE AUTO RFX NEGATIVE (NEGATIVE); RBC, URINE AUTO RFX 1 /HPF (0-3); SPECIFIC GRAVITY UR AUTO RFX 1.008 (1.002-1.035); SQUAM EPITHELIAL CELL UR AURFX 1 /HPF (0-6); WBC, URINE AUTO RFX 1 /HPF (0-3)
[2017-09-01] MEDS: clonazePAM 0.5 MG TAB PO ×3 (13:44→21:00)
[2017-09-01] MEDS: DESVENLAFAXINE ER 50 MG TABLET (PRISTIQ) PO (13:44)
[2017-09-01] MEDS: POLYVINYL ALCOHOL OPHTH SOLN 15 ML(LIQUITEARS) OU (16:36)
[2017-09-01] MEDS: PREGABALIN 100 MG CAP (LYRICA) PO (20:42)
[2017-09-01] MEDS: traZODone 50 MG TAB PO (20:45)
[2017-09-02] MEDS: CEPHALEXIN 500 MG CAP PO ×3 (06:04→20:38)
[2017-09-02] MEDS: DESVENLAFAXINE ER 50 MG TABLET (PRISTIQ) PO (08:07)
[2017-09-02] MEDS: FOLIC ACID 1 MG TAB PO (08:07)
[2017-09-02] MEDS: PREGABALIN 50 MG CAP (LYRICA) PO (08:07)
[2017-09-02] MEDS: PYRIDOSTIGMINE 60 MG TAB PO ×4 (08:08→20:38)
[2017-09-02] MEDS: MYCOPHENOLATE MOFETIL 250 MG CAP (J7517) PO ×3 (08:09→20:38)
[2017-09-02] MEDS: VITAMIN D 1,000 INTERNATIONAL UNITS TABLET PO (08:09)
[2017-09-02] MEDS: ACYCLOVIR 200 MG CAPSULE PO ×2 (08:09→20:38)
[2017-09-02] MEDS: PILL CRUSHER/CUTTER 1 EACH XX ×4 (08:09→20:41)
[2017-09-02] MEDS: clonazePAM 0.5 MG TAB PO (10:04)
[2017-09-02 12:22] LABS: BASO % 0.5 % (0.0-1.0); EOS # 0.1 10^3/uL (0.0-0.50); EOS % 1.4 % (0.0-3.0); IMMATURE GRANULOCYTE % 0.5 % (0-3.0); LYMPH # 1.5 10^3/uL (1.5-4.5); LYMPH % 25.9 % (24.0-44.0); MEAN CORPUSCULAR HEMOGLOBIN 30.7 pg (27.0-33.0); MEAN CORPUSCULAR HGB CONC 33.3 g/dl (32.0-36.5); MEAN CORPUSCULAR VOLUME 92.2 fl (80.0-96.0); MONO # 0.6 10^3/uL (0.0-0.8); MONO % 9.9 % (0.0-5.0); NEUTROPHILS # 3.6 10^3/uL (1.8-7.7); NEUTROPHILS % 61.8 % (36.0-66.0); PLATELET COUNT, AUTOMATED 227 10^3/uL (150-450); RED BLOOD COUNT 4.23 10^6/uL (4.00-5.40); RED CELL DISTRIBUTION WIDTH 13.3 % (11.5-14.5); WHITE BLOOD COUNT 5.9 10^3/uL (4.0-10.0)
[2017-09-02 12:38] LABS: KETONE, URINE AUTO RFX NEGATIVE (NEGATIVE); LEUKOCYTE ESTERASE UR AUTO RFX NEGATIVE (NEGATIVE); MUCUS, URINE RFX SMALL (NEGATIVE); NITRITE, URINE AUTO RFX NEGATIVE (NEGATIVE); RBC, URINE AUTO RFX 1 /HPF (0-3); SPECIFIC GRAVITY UR AUTO RFX 1.006 (1.002-1.035); SQUAM EPITHELIAL CELL UR AURFX 17 /HPF (0-6); WBC, URINE AUTO RFX 1 /HPF (0-3)
[2017-09-02 12:45] LABS: ALBUMIN 3.8 GM/DL (3.2-5.2); ALBUMIN/GLOBULIN RATIO 1.23 (1.00-1.93); ALKALINE PHOSPHATASE 65 U/L (45-117); ALT/SGPT 18 U/L (12-78); ANION GAP 7 MEQ/L (8-16); AST/SGOT 9 U/L (7-37); BILIRUBIN,TOTAL 0.5 MG/DL (0.2-1.0); BLOOD UREA NITROGEN 13 MG/DL (7-18); CALCIUM LEVEL 9.1 MG/DL (8.5-10.1); CARBON DIOXIDE LEVEL 26 MEQ/L (21-32); CHLORIDE LEVEL 107 MEQ/L (98-107); CREATININE FOR GFR 0.89 MG/DL (0.55-1.30); GLOMERULAR FILTRATION RATE > 60.0 (>60); GLUCOSE, FASTING 89 MG/DL (70-100); LIPASE 122 U/L (73-393); POTASSIUM SERUM 4.7 MEQ/L (3.5-5.1); SODIUM LEVEL 140 MEQ/L (136-145); TOTAL PROTEIN 6.9 GM/DL (6.4-8.2)
[2017-09-02] MEDS: PREGABALIN 100 MG CAP (LYRICA) PO (20:38)
[2017-09-02] MEDS: POLYVINYL ALCOHOL OPHTH SOLN 15 ML(LIQUITEARS) OU (20:39)
[2017-09-02] MEDS: diphenhydrAMINE 50 MG CAP PO (23:11)
[2017-09-03] MEDS: CEPHALEXIN 500 MG CAP PO ×3 (06:18→20:46)
[2017-09-03] MEDS: MYCOPHENOLATE MOFETIL 250 MG CAP (J7517) PO ×3 (08:24→20:46)
[2017-09-03] MEDS: PREGABALIN 50 MG CAP (LYRICA) PO (08:25)
[2017-09-03] MEDS: ACYCLOVIR 200 MG CAPSULE PO ×2 (08:25→20:46)
[2017-09-03] MEDS: VITAMIN D 1,000 INTERNATIONAL UNITS TABLET PO (08:25)
[2017-09-03] MEDS: FOLIC ACID 1 MG TAB PO (08:25)
[2017-09-03] MEDS: PYRIDOSTIGMINE 60 MG TAB PO ×4 (08:25→20:47)
[2017-09-03] MEDS: DULoxetine 30 MG CAP (CYMBALTA) PO ×2 (08:25→11:40)
[2017-09-03] MEDS: MAALOX 30 ML SUSP *UDC PO (17:53)
[2017-09-03] MEDS: PREGABALIN 100 MG CAP (LYRICA) PO (20:46)
[2017-09-03] MEDS: traZODone 50 MG TAB PO (20:51)
[2017-09-04] MEDS: CEPHALEXIN 500 MG CAP PO ×3 (06:22→20:05)
[2017-09-04] MEDS: PREGABALIN 50 MG CAP (LYRICA) PO ×2 (08:31→20:05)
[2017-09-04] MEDS: DULoxetine 30 MG CAP (CYMBALTA) PO (08:31)
[2017-09-04] MEDS: VITAMIN D 1,000 INTERNATIONAL UNITS TABLET PO (08:32)
[2017-09-04] MEDS: FOLIC ACID 1 MG TAB PO (08:32)
[2017-09-04] MEDS: PYRIDOSTIGMINE 60 MG TAB PO ×4 (08:32→20:05)
[2017-09-04] MEDS: ACYCLOVIR 200 MG CAPSULE PO ×2 (08:32→20:04)
[2017-09-04] MEDS: MYCOPHENOLATE MOFETIL 250 MG CAP (J7517) PO ×3 (08:33→20:04)
[2017-09-04] MEDS: clonazePAM 0.5 MG TAB PO (11:32)
[2017-09-04] MEDS: PILL CRUSHER/CUTTER 1 EACH XX ×2 (12:54→18:09)
[2017-09-04] MEDS: IBUPROFEN 600 MG TAB PO ×2 (18:10→20:07)
[2017-09-04] MEDS: traZODone 50 MG TAB PO (20:05)
[2017-09-05] MEDS: CEPHALEXIN 500 MG CAP PO ×3 (05:59→20:48)
[2017-09-05] MEDS: POLYVINYL ALCOHOL OPHTH SOLN 15 ML(LIQUITEARS) OU ×3 (06:50→20:49)
[2017-09-05] MEDS: PREGABALIN 50 MG CAP (LYRICA) PO ×2 (08:27→20:48)
[2017-09-05] MEDS: ACYCLOVIR 200 MG CAPSULE PO ×2 (08:28→20:49)
[2017-09-05] MEDS: MYCOPHENOLATE MOFETIL 250 MG CAP (J7517) PO ×3 (08:31→20:48)
[2017-09-05] MEDS: IBUPROFEN 600 MG TAB PO ×3 (08:31→20:49)
[2017-09-05] MEDS: PYRIDOSTIGMINE 60 MG TAB PO ×4 (08:34→20:48)
[2017-09-05] MEDS: FOLIC ACID 1 MG TAB PO (08:35)
[2017-09-05] MEDS: DULoxetine 30 MG CAP (CYMBALTA) PO (08:38)
[2017-09-05] MEDS: VITAMIN D 1,000 INTERNATIONAL UNITS TABLET PO (10:00)
[2017-09-05] MEDS: clonazePAM 0.5 MG TAB PO (10:00)
[2017-09-05] MEDS: ACETAMINOPHEN 500 MG TAB PO (17:14)
[2017-09-05] MEDS: MAALOX 30 ML SUSP *UDC PO (17:17)
[2017-09-05] MEDS: traZODone 50 MG TAB PO (20:49)
[2017-09-05] MEDS: MOM 30ML SUSPENSION UDC PO (21:23)
[2017-09-06] MEDS: CEPHALEXIN 500 MG CAP PO ×3 (06:05→20:55)
[2017-09-06] MEDS: PYRIDOSTIGMINE 60 MG TAB PO ×4 (09:15→21:03)
[2017-09-06] MEDS: PILL CRUSHER/CUTTER 1 EACH XX ×4 (09:15→21:04)
[2017-09-06] MEDS: PREGABALIN 50 MG CAP (LYRICA) PO ×2 (09:17→20:55)
[2017-09-06] MEDS: IBUPROFEN 600 MG TAB PO ×3 (09:17→20:56)
[2017-09-06] MEDS: FOLIC ACID 1 MG TAB PO (09:18)
[2017-09-06] MEDS: DULoxetine 30 MG CAP (CYMBALTA) PO (09:18)
[2017-09-06] MEDS: MYCOPHENOLATE MOFETIL 250 MG CAP (J7517) PO ×3 (09:19→20:55)
[2017-09-06] MEDS: VITAMIN D 1,000 INTERNATIONAL UNITS TABLET PO (09:19)
[2017-09-06] MEDS: ACYCLOVIR 200 MG CAPSULE PO ×2 (09:19→20:55)
[2017-09-06 11:30] LABS: BASO % 0.5 % (0.0-1.0); EOS # 0.1 10^3/uL (0.0-0.50); EOS % 2.2 % (0.0-3.0); HEMATOCRIT 36.9 % (36.0-47.0); HEMOGLOBIN 12.2 g/dl (12.0-15.5); IMMATURE GRANULOCYTE % 0.5 % (0-3.0); LYMPH # 1.8 10^3/uL (1.5-4.5); LYMPH % 28.2 % (24.0-44.0); MEAN CORPUSCULAR HEMOGLOBIN 30.5 pg (27.0-33.0); MEAN CORPUSCULAR HGB CONC 33.1 g/dl (32.0-36.5); MEAN CORPUSCULAR VOLUME 92.3 fl (80.0-96.0); MONO # 0.5 10^3/uL (0.0-0.8); MONO % 8.5 % (0.0-5.0); NEUTROPHILS # 3.9 10^3/uL (1.8-7.7); NEUTROPHILS % 60.1 % (36.0-66.0); PLATELET COUNT, AUTOMATED 221 10^3/uL (150-450); RED CELL DISTRIBUTION WIDTH 13.1 % (11.5-14.5); WHITE BLOOD COUNT 6.4 10^3/uL (4.0-10.0)
[2017-09-06 11:55] LABS: ALBUMIN 3.6 GM/DL (3.2-5.2); ALBUMIN/GLOBULIN RATIO 1.38 (1.00-1.93); ALKALINE PHOSPHATASE 79 U/L (45-117); ALT/SGPT 21 U/L (12-78); ANION GAP 5 MEQ/L (8-16); AST/SGOT 9 U/L (7-37); BILIRUBIN,TOTAL 0.4 MG/DL (0.2-1.0); BLOOD UREA NITROGEN 12 MG/DL (7-18); CALCIUM LEVEL 8.5 MG/DL (8.5-10.1); CARBON DIOXIDE LEVEL 27 MEQ/L (21-32); CHLORIDE LEVEL 110 MEQ/L (98-107); GLOMERULAR FILTRATION RATE > 60.0 (>60); GLUCOSE, FASTING 94 MG/DL (70-100); POTASSIUM SERUM 4.5 MEQ/L (3.5-5.1); SODIUM LEVEL 142 MEQ/L (136-145); TOTAL PROTEIN 6.2 GM/DL (6.4-8.2)
[2017-09-06] MEDS: ACETAMINOPHEN 500 MG TAB PO (13:32)
[2017-09-06] MEDS: diphenhydrAMINE 50 MG CAP PO (20:56)
[2017-09-07] MEDS ORDERED: UNRESOLVED CLARIFICATION ENTRY XX (00:01)
[2017-09-07] MEDS: CEPHALEXIN 500 MG CAP PO (06:05)
[2017-09-07] MEDS: VITAMIN D 1,000 INTERNATIONAL UNITS TABLET PO (09:11)
[2017-09-07] MEDS: PREGABALIN 50 MG CAP (LYRICA) PO ×2 (09:11→20:30)
[2017-09-07] MEDS: DULoxetine 30 MG CAP (CYMBALTA) PO (09:11)
[2017-09-07] MEDS: ACYCLOVIR 200 MG CAPSULE PO ×2 (09:11→20:30)
[2017-09-07] MEDS: FOLIC ACID 1 MG TAB PO (09:11)
[2017-09-07] MEDS: MYCOPHENOLATE MOFETIL 250 MG CAP (J7517) PO ×3 (09:12→20:30)
[2017-09-07] MEDS: ACETAMINOPHEN 500 MG TAB PO ×3 (09:16→20:35)
[2017-09-07] MEDS: PYRIDOSTIGMINE 60 MG TAB PO ×4 (10:43→20:30)
[2017-09-07] MEDS: clonazePAM 0.5 MG TAB PO (12:22)
[2017-09-07] MEDS: LORazepam 0.5 MG TAB PO (18:26)
[2017-09-07] MEDS: PILL CRUSHER/CUTTER 1 EACH XX (20:30)
[2017-09-07] MEDS: traZODone 50 MG TAB PO (20:32)
[2017-09-08] MEDS: ACYCLOVIR 200 MG CAPSULE PO (08:39)
[2017-09-08] MEDS: DULoxetine 30 MG CAP (CYMBALTA) PO (08:39)
[2017-09-08] MEDS: VITAMIN D 1,000 INTERNATIONAL UNITS TABLET PO (08:39)
[2017-09-08] MEDS: FOLIC ACID 1 MG TAB PO (08:39)
[2017-09-08] MEDS: ACETAMINOPHEN 500 MG TAB PO (08:39)
[2017-09-08] MEDS: MYCOPHENOLATE MOFETIL 250 MG CAP (J7517) PO (08:39)
[2017-09-08] MEDS: PYRIDOSTIGMINE 60 MG TAB PO (08:40)
[2017-09-08] MEDS: diazePAM 2 MG TAB PO (11:14)
== END 2017-09-08 12:15 | disposition home or self-care (01) | DRG 885 ==
LOC: M ED 12:17 → M ED INP 16:02 → M PSY 17:15
DX: F33.2 Major depressive disorder, recurrent severe without psychotic features (principal); F60.3 Borderline personality disorder; M79.7 Fibromyalgia; J30.1 Allergic rhinitis due to pollen; G89.4 Chronic pain syndrome; K21.9 Gastro-esophageal reflux disease without esophagitis; G70.00 Myasthenia gravis without (acute) exacerbation; G47.33 Obstructive sleep apnea (adult) (pediatric); R10.9 Unspecified abdominal pain; Z62.810 Personal history of physical and sexual abuse in childhood; Z81.8 Family history of other mental and behavioral disorders; Z88.8 Allergy status to other drugs, medicaments and biological substances; Z88.2 Allergy status to sulfonamides; Z87.891 Personal history of nicotine dependence; Z91.048 Other nonmedicinal substance allergy status; Z91.018 Allergy to other foods; Z79.899 Other long term (current) drug therapy; Z91.5 Personal history of self-harm

== ENCOUNTER → 2017-09-19 | Outpatient (CLI) | payer MEDICAID, OTHER | LOC: M ADAMS 13:15 | DX: M54.5 Low back pain (principal) | CPT/HCPCS: 72220 ==

== ENCOUNTER → 2017-10-13 | Outpatient (CLI) | payer OTHER | LOC: M CARPUL 08:33 | DX: R60.9 Edema, unspecified (principal) | CPT/HCPCS: 93306 ==

== ENCOUNTER → 2017-10-21 | Outpatient (REF) | payer OTHER ==
[2017-10-21 12:48] LABS: HEMATOCRIT 40.9 % (36.0-47.0); HEMOGLOBIN 13.9 g/dl (12.0-15.5); MEAN CORPUSCULAR HEMOGLOBIN 31.1 pg (27.0-33.0); MEAN CORPUSCULAR VOLUME 91.5 fl (80.0-96.0); PLATELET COUNT, AUTOMATED 312 10^3/uL (150-450); RED BLOOD COUNT 4.47 10^6/uL (4.00-5.40); RED CELL DISTRIBUTION WIDTH 12.9 % (11.5-14.5); WHITE BLOOD COUNT 7.6 10^3/uL (4.0-10.0)
[2017-10-21 12:54] LABS: BACTERIA, URINE AUTO NEGATIVE (NEGATIVE); RBC, URINE AUTO TNTC /HPF (0-3); SQUAMOUS EPITHELIAL CELL UR AU 2 /HPF (0-6); WBC, URINE AUTO TNTC /HPF (0-3)
[2017-10-21 13:05] LABS: ANION GAP 7 MEQ/L (8-16); BLOOD UREA NITROGEN 11 MG/DL (7-18); CALCIUM LEVEL 8.8 MG/DL (8.5-10.1); CARBON DIOXIDE LEVEL 28 MEQ/L (21-32); CHLORIDE LEVEL 107 MEQ/L (98-107); CREATININE FOR GFR 1.04 MG/DL (0.55-1.30); GLOMERULAR FILTRATION RATE > 60.0 (>60); GLUCOSE, FASTING 86 MG/DL (70-100); POTASSIUM SERUM 4.4 MEQ/L (3.5-5.1); SODIUM LEVEL 142 MEQ/L (136-145)
== END ==
LOC: M LABSMT 10:46 → M LABDRWAD 10:50
DX: N32.81 Overactive bladder (principal)
CPT/HCPCS: 80048

== ENCOUNTER 2017-10-28 12:56 | Day surgery (SDC) | payer OTHER ==
[2017-10-28] MEDS: LR 1,000 ML IV (14:00)
[2017-10-28] MEDS: CIPROFLOXACIN 400 MG in APPROPRIATE DILUENT 1 EA IV (15:43)
[2017-10-28] MEDS ORDERED: PROPOFOL 200 MG/20 ML VIAL As Ordered ×2 (16:15→16:56)
[2017-10-28] MEDS ORDERED: MIDAZOLAM INJ 2 MG/2 ML VIAL (J2250) As Ordered (16:15)
[2017-10-28] MEDS ORDERED: fentaNYL 100 MCG/2 ML INJECTION (J3010) As Ordered (16:15)
[2017-10-28] MEDS ORDERED: dexameTHASONE 4 MG/ML 1ML VIAL (J1100) As Ordered ×2 (16:46)
[2017-10-28] MEDS ORDERED: ONDANSETRON 4MG/2ML VIAL (J2405) As Ordered (16:47)
[2017-10-28] MEDS ORDERED: KETOROLAC 60 MG/2 ML VIAL (J1885) As Ordered (16:47)
[2017-10-28] MEDS: LIDOCAINE 1% SDV INJ 30 ML VIAL As Ordered (17:10)
[2017-10-28] MEDS ORDERED: PERCOCET 5MG/325MG TAB As Ordered (18:22)
[2017-10-28] MEDS: PERCOCET 5MG/325MG TAB PO (18:25)
[2017-10-28] MEDS ORDERED: MEPERIDINE INJ 25 MG/ML VIAL (J2175) IV (18:30)
[2017-10-28] MEDS ORDERED: ONDANSETRON 4MG/2ML VIAL (J2405) IV (18:30)
[2017-10-28] MEDS ORDERED: PROMETHAZINE INJ 25 MG/ML VIAL (J2550) IV (18:30)
[2017-10-28] MEDS ORDERED: LR 1,000 ML IV (18:30)
[2017-10-28] MEDS ORDERED: fentaNYL 100 MCG/2 ML INJECTION (J3010) IV (18:30)
[2017-10-28] MEDS ORDERED: diphenhydrAMINE INJ 50MG/ML VIAL (J1200) IV (18:30)
[2017-10-28] MEDS ORDERED: NORCO, ANEXSIA 5/325MG TABLET (HYDROcodone/ACETAMINOPHEN) PO (18:30)
[2017-10-28] MEDS ORDERED: MORPHINE 10 MG/ML 1ML VIAL (J2270) IV (18:30)
[2017-10-28] MEDS ORDERED: NALBUPHINE HCL 10 MG/ML AMP (J2300) IV (18:30)
[2017-10-28] MEDS ORDERED: KETOROLAC 30 MG/ML VIAL (J1885) IV (18:30)
[2017-10-28] MEDS ORDERED: METOCLOPRAMIDE INJ 10MG/2ML VIAL (J2765) IV (18:30)
[2017-10-28] MEDS ORDERED: HYDROMORPHONE HCL 0.5 MG/ 0.5 ML SYRINGE (J1170 PER 1) IV (18:30)
== END 2017-10-28 19:00 | disposition home or self-care (01) ==
LOC: M SDC 12:56
DX: Z45.42 Encounter for adjustment and management of neurostimulator (principal); T85.698A Other mechanical complication of other specified internal prosthetic devices, implants and grafts, initial encounter; N32.81 Overactive bladder; M79.7 Fibromyalgia; R35.1 Nocturia; K21.9 Gastro-esophageal reflux disease without esophagitis; N39.46 Mixed incontinence; Z86.69 Personal history of other diseases of the nervous system and sense organs; Z87.891 Personal history of nicotine dependence; F32.9 Major depressive disorder, single episode, unspecified; Z88.2 Allergy status to sulfonamides; Z88.8 Allergy status to other drugs, medicaments and biological substances; F41.9 Anxiety disorder, unspecified
CPT/HCPCS: 64585

== ENCOUNTER 2017-11-01 13:29 | Emergency (ER) | payer OTHER | END 2017-11-01 14:19 | disposition home or self-care (01) | LOC: M ED 13:29 | DX: M79.7 Fibromyalgia (principal); G62.9 Polyneuropathy, unspecified; E66.9 Obesity, unspecified; J30.89 Other allergic rhinitis; J30.2 Other seasonal allergic rhinitis; Z79.899 Other long term (current) drug therapy; Z88.8 Allergy status to other drugs, medicaments and biological substances; Z88.1 Allergy status to other antibiotic agents; Z91.018 Allergy to other foods | CPT/HCPCS: 99282 ==

== ENCOUNTER → 2017-11-03 | Outpatient (CLI) | payer OTHER | LOC: M RAD 09:17 | DX: I87.393 Chronic venous hypertension (idiopathic) with other complications of bilateral lower extremity (principal); R22.43 Localized swelling, mass and lump, lower limb, bilateral | CPT/HCPCS: 93970 ==

== ENCOUNTER 2017-11-26 11:47 | Outpatient (RCR) | payer OTHER | END 2017-12-20 | LOC: M PT 11:47 | DX: M79.604 Pain in right leg (principal); M79.605 Pain in left leg | CPT/HCPCS: 97140 ==

== ENCOUNTER 2017-12-17 10:14 | Emergency (ER) | payer OTHER ==
[2017-12-17] MEDS: ONDANSETRON 4 MG ORAL DISINTEGRATING TAB (Q0162 PER 1MG) PO (11:18)
== END 2017-12-17 11:22 | disposition home or self-care (01) ==
LOC: M ED 10:14
DX: R11.0 Nausea (principal); R20.2 Paresthesia of skin; T50.995A Adverse effect of other drugs, medicaments and biological substances, initial encounter; X58.XXXA Exposure to other specified factors, initial encounter; K21.9 Gastro-esophageal reflux disease without esophagitis; M79.7 Fibromyalgia; M54.81 Occipital neuralgia; F41.9 Anxiety disorder, unspecified; F33.9 Major depressive disorder, recurrent, unspecified; G47.33 Obstructive sleep apnea (adult) (pediatric); R51 Headache; N83.9 Noninflammatory disorder of ovary, fallopian tube and broad ligament, unspecified; Z79.899 Other long term (current) drug therapy; Z88.1 Allergy status to other antibiotic agents; Z88.8 Allergy status to other drugs, medicaments and biological substances; Z91.018 Allergy to other foods; J30.89 Other allergic rhinitis
CPT/HCPCS: Q0162

== ENCOUNTER 2017-12-21 12:50 | Outpatient (RCR) | payer OTHER | END 2018-01-20 | LOC: M PT 12-30 08:30 | DX: M79.604 Pain in right leg (principal); M79.605 Pain in left leg | CPT/HCPCS: 97140 ==

== ENCOUNTER 2018-01-15 14:29 | Emergency (ER) | payer OTHER ==
[2018-01-15] MEDS: NS 1,000 ML IV (15:26)
[2018-01-15] MEDS: ADACEL/BOOSTRIX VACCINE (DIPHTH/PERTUSS/ACELL/TETANUS)0.5ML SYR (90715) IM (15:26)
[2018-01-15 15:32] LABS: BASO % 0.5 % (0.0-1.0); EOS # 0.1 10^3/uL (0.0-0.50); EOS % 1.2 % (0.0-3.0); HEMATOCRIT 41.9 % (36.0-47.0); HEMOGLOBIN 13.8 g/dl (12.0-15.5); IMMATURE GRANULOCYTE % 0.5 % (0-3.0); LYMPH % 23.3 % (24.0-44.0); MEAN CORPUSCULAR HEMOGLOBIN 31.2 pg (27.0-33.0); MEAN CORPUSCULAR HGB CONC 32.9 g/dl (32.0-36.5); MEAN CORPUSCULAR VOLUME 94.6 fl (80.0-96.0); MONO # 0.6 10^3/uL (0.0-0.8); MONO % 6.9 % (0.0-5.0); NEUTROPHILS # 5.7 10^3/uL (1.8-7.7); NEUTROPHILS % 67.6 % (36.0-66.0); PLATELET COUNT, AUTOMATED 312 10^3/uL (150-450); RED BLOOD COUNT 4.43 10^6/uL (4.00-5.40); RED CELL DISTRIBUTION WIDTH 13.3 % (11.5-14.5); WHITE BLOOD COUNT 8.4 10^3/uL (4.0-10.0)
[2018-01-15 15:53] LABS: OSMOLALITY SERUM 289 MOSM/KG (275-295)
[2018-01-15 15:55] LABS: AMPHETAMINES LEVEL URINE NEGATIVE (NEGATIVE); BARBITURATES URINE NEGATIVE (NEGATIVE); BENZODIAZEPINES URINE POSITIVE (NEGATIVE); CANNABINOIDS URINE NEGATIVE (NEGATIVE); COCAINE METABOLITE URINE NEGATIVE (NEGATIVE); METHADONE URINE NEGATIVE (NEGATIVE); OPIATES URINE NEGATIVE (NEGATIVE); PHENCYCLIDINE URINE NEGATIVE (NEGATIVE)
[2018-01-15 16:06] LABS: ACETAMINOPHEN LEVEL < 2.0 UG/ML (10.0-30.0); ALBUMIN 4.5 GM/DL (3.2-5.2); ALBUMIN/GLOBULIN RATIO 1.45 (1.00-1.93); ALKALINE PHOSPHATASE 87 U/L (45-117); ALT/SGPT 20 U/L (12-78); ANION GAP 8 MEQ/L (8-16); AST/SGOT 13 U/L (7-37); BILIRUBIN,DIRECT < 0.1 MG/DL (0.0-0.2); BILIRUBIN,TOTAL 0.3 MG/DL (0.2-1.0); BLOOD UREA NITROGEN 11 MG/DL (7-18); CALCIUM LEVEL 9.5 MG/DL (8.5-10.1); CARBON DIOXIDE LEVEL 25 MEQ/L (21-32); CHLORIDE LEVEL 107 MEQ/L (98-107); CPK CREATINE PHOSPHOKINASE 158 U/L (26-192); CREATININE FOR GFR 0.83 MG/DL (0.55-1.30); ETHYL ALCOHOL (ETHANOL) < 0.003 % (0.000-0.010); GLOMERULAR FILTRATION RATE > 60.0 (>60); GLUCOSE, FASTING 90 MG/DL (70-100); HCG, SERUM QUANTITATIVE < 1.0 MIU/ML; POTASSIUM SERUM 3.9 MEQ/L (3.5-5.1); SALICYLATE LEVEL < 1.7 MG/DL (5.0-30.0); SODIUM LEVEL 140 MEQ/L (136-145); TOTAL PROTEIN 7.6 GM/DL (6.4-8.2)
== END 2018-01-16 04:12 | disposition short-term general hospital (02) ==
LOC: M ED 01-16 04:12
DX: F33.2 Major depressive disorder, recurrent severe without psychotic features (principal); F98.8 Other specified behavioral and emotional disorders with onset usually occurring in childhood and adolescence; G70.00 Myasthenia gravis without (acute) exacerbation; M79.7 Fibromyalgia; K21.9 Gastro-esophageal reflux disease without esophagitis; G47.33 Obstructive sleep apnea (adult) (pediatric); Z87.891 Personal history of nicotine dependence; Z91.018 Allergy to other foods; Z88.1 Allergy status to other antibiotic agents; Z88.8 Allergy status to other drugs, medicaments and biological substances; Z88.2 Allergy status to sulfonamides; J30.1 Allergic rhinitis due to pollen; Z79.899 Other long term (current) drug therapy
CPT/HCPCS: 90715

== ENCOUNTER 2018-02-04 15:26 | Inpatient (IN) | payer MEDICAID, OTHER ==
[2018-02-04] MEDS: IBUPROFEN 600 MG TAB PO (15:45)
[2018-02-04 17:45] LABS: HEMATOCRIT 39.1 % (36.0-47.0); HEMOGLOBIN 13.1 g/dl (12.0-15.5); MEAN CORPUSCULAR HEMOGLOBIN 30.5 pg (27.0-33.0); MEAN CORPUSCULAR HGB CONC 33.5 g/dl (32.0-36.5); MEAN CORPUSCULAR VOLUME 91.1 fl (80.0-96.0); PLATELET COUNT, AUTOMATED 292 10^3/uL (150-450); RED BLOOD COUNT 4.29 10^6/uL (4.00-5.40); RED CELL DISTRIBUTION WIDTH 13.2 % (11.5-14.5); WHITE BLOOD COUNT 9.5 10^3/uL (4.0-10.0)
[2018-02-04 17:51] LABS: CONTROL LINE HCG INT CTR LINE PRESENT; HCG, SERUM QUALITATIVE NEGATIVE (NEGATIVE)
[2018-02-04 18:08] LABS: ACETAMINOPHEN LEVEL < 2.0 UG/ML (10.0-30.0); ALBUMIN 3.7 GM/DL (3.2-5.2); ALBUMIN/GLOBULIN RATIO 1.28 (1.00-1.93); ALKALINE PHOSPHATASE 81 U/L (45-117); ALT/SGPT 23 U/L (12-78); ANION GAP 7 MEQ/L (8-16); AST/SGOT 11 U/L (7-37); BILIRUBIN,DIRECT < 0.1 MG/DL (0.0-0.2); BILIRUBIN,TOTAL 0.3 MG/DL (0.2-1.0); BLOOD UREA NITROGEN 13 MG/DL (7-18); CALCIUM LEVEL 8.9 MG/DL (8.5-10.1); CARBON DIOXIDE LEVEL 24 MEQ/L (21-32); CHLORIDE LEVEL 108 MEQ/L (98-107); ETHYL ALCOHOL (ETHANOL) < 0.003 % (0.000-0.010); GLOMERULAR FILTRATION RATE > 60.0 (>60); GLUCOSE, FASTING 94 MG/DL (70-100); SALICYLATE LEVEL < 1.7 MG/DL (5.0-30.0); SODIUM LEVEL 139 MEQ/L (136-145); TOTAL PROTEIN 6.6 GM/DL (6.4-8.2)
[2018-02-04 18:15] LABS: AMPHETAMINES LEVEL URINE NEGATIVE (NEGATIVE); BARBITURATES URINE NEGATIVE (NEGATIVE); BENZODIAZEPINES URINE NEGATIVE (NEGATIVE); CANNABINOIDS URINE POSITIVE (NEGATIVE); COCAINE METABOLITE URINE NEGATIVE (NEGATIVE); METHADONE URINE NEGATIVE (NEGATIVE); OPIATES URINE NEGATIVE (NEGATIVE); PHENCYCLIDINE URINE NEGATIVE (NEGATIVE)
[2018-02-04] MEDS ORDERED: MOM 30ML SUSPENSION UDC PO (18:45)
[2018-02-05] MEDS ORDERED: ONDANSETRON 4 MG TAB (S0181) PO (00:15)
[2018-02-05] MEDS: ACETAMINOPHEN TAB 650MG DOSE (2X325MG) PO ×2 (00:44→13:35)
[2018-02-05] MEDS: NALTREXONE 50 MG TAB PO ×3 (01:06→21:20)
[2018-02-05] MEDS: DULoxetine 30 MG CAP (CYMBALTA) PO ×2 (01:07→08:11)
[2018-02-05] MEDS: BACLOFEN 10 MG TAB PO (01:07)
[2018-02-05] MEDS ORDERED: BACLOFEN 10 MG TAB PO ×2 (01:15→09:00)
[2018-02-05] MEDS: MYCOPHENOLATE MOFETIL 250 MG CAP (J7517) PO ×4 (01:26→21:20)
[2018-02-05] MEDS: ACYCLOVIR 200 MG CAPSULE PO ×3 (01:27→21:21)
[2018-02-05] MEDS: rOPINIRole 1MG TAB PO ×2 (01:27→21:19)
[2018-02-05] MEDS: PYRIDOSTIGMINE 60 MG TAB PO ×5 (01:28→21:19)
[2018-02-05] MEDS ORDERED: TEARS NATURALE FREE OPHTH DROP VIAL OU (06:00)
[2018-02-05] MEDS: INFLUENZA QUADRIVALENT PF VACCINE 0.5ML SYRINGE (90686) IM (08:10)
[2018-02-05] MEDS: PILL CRUSHER/CUTTER 1 EACH XX (08:11)
[2018-02-05] MEDS: FOLIC ACID 1 MG TAB PO (08:11)
[2018-02-05] MEDS ORDERED: NALTREXONE 50 MG TAB PO (09:00)
[2018-02-05] MEDS ORDERED: ACYCLOVIR 200 MG CAPSULE PO (09:00)
[2018-02-05] MEDS ORDERED: MYCOPHENOLATE MOFETIL 250 MG CAP (J7517) PO (09:00)
[2018-02-05] MEDS ORDERED: DULoxetine 30 MG CAP (CYMBALTA) PO (09:00)
[2018-02-05] MEDS ORDERED: PYRIDOSTIGMINE 60 MG TAB PO (09:00)
[2018-02-05] MEDS: VENLAFAXINE **XR** 75MG CAPSULE PO (12:13)
[2018-02-05] MEDS: hydrOXYzine 50 MG TAB PO (14:23)
[2018-02-05] MEDS ORDERED: POLYVINYL ALCOHOL OPHTH SOLN 15 ML(LIQUITEARS) OU (14:30)
[2018-02-05] MEDS ORDERED: rOPINIRole 1MG TAB PO (21:00)
[2018-02-05] MEDS: ARIPiprazole 15 MG TAB (AbiLIFY) PO (21:20)
[2018-02-05] MEDS: PRAZOSIN 1 MG CAP PO (21:21)
[2018-02-05] MEDS: BELSOMRA PO (21:23)
[2018-02-06] MEDS: PILL CRUSHER/CUTTER 1 EACH XX ×3 (08:21→16:58)
[2018-02-06] MEDS: FOLIC ACID 1 MG TAB PO (08:22)
[2018-02-06] MEDS: ACYCLOVIR 200 MG CAPSULE PO ×2 (08:22→20:33)
[2018-02-06] MEDS: MYCOPHENOLATE MOFETIL 250 MG CAP (J7517) PO ×3 (08:22→20:33)
[2018-02-06] MEDS: NALTREXONE 50 MG TAB PO ×2 (08:22→20:33)
[2018-02-06] MEDS: VENLAFAXINE **XR** 75MG CAPSULE PO (08:22)
[2018-02-06] MEDS: PYRIDOSTIGMINE 60 MG TAB PO ×4 (08:22→20:33)
[2018-02-06] MEDS: MAALOX 30 ML SUSP *UDC PO (12:10)
[2018-02-06] MEDS: ACETAMINOPHEN TAB 650MG DOSE (2X325MG) PO (14:25)
[2018-02-06] MEDS: rOPINIRole 1MG TAB PO (20:33)
[2018-02-06] MEDS: PRAZOSIN 1 MG CAP PO (20:33)
[2018-02-06] MEDS: BELSOMRA PO (20:34)
[2018-02-06] MEDS: ARIPiprazole 15 MG TAB (AbiLIFY) PO (20:34)
[2018-02-07] MEDS: traZODone 50 MG TAB PO (02:10)
[2018-02-07] MEDS: VENLAFAXINE **XR** 75MG CAPSULE PO (08:47)
[2018-02-07] MEDS: MYCOPHENOLATE MOFETIL 250 MG CAP (J7517) PO ×3 (08:47→20:59)
[2018-02-07] MEDS: ACYCLOVIR 200 MG CAPSULE PO ×2 (08:47→20:59)
[2018-02-07] MEDS: FOLIC ACID 1 MG TAB PO (08:47)
[2018-02-07] MEDS: PYRIDOSTIGMINE 60 MG TAB PO ×4 (08:48→21:00)
[2018-02-07] MEDS: NALTREXONE 50 MG TAB PO ×2 (08:48→20:59)
[2018-02-07] MEDS: PILL CRUSHER/CUTTER 1 EACH XX ×3 (08:49→17:01)
[2018-02-07] MEDS: hydrOXYzine 50 MG TAB PO (13:16)
[2018-02-07] MEDS: MIRTAZAPINE 15 MG TAB PO (20:58)
[2018-02-07] MEDS: PRAZOSIN 1 MG CAP PO (20:59)
[2018-02-07] MEDS: BELSOMRA PO (21:00)
[2018-02-07] MEDS: rOPINIRole 1MG TAB PO (21:00)
[2018-02-08] MEDS: MYCOPHENOLATE MOFETIL 250 MG CAP (J7517) PO ×3 (08:19→20:30)
[2018-02-08] MEDS: PYRIDOSTIGMINE 60 MG TAB PO ×4 (08:19→20:31)
[2018-02-08] MEDS: ACYCLOVIR 200 MG CAPSULE PO ×2 (08:19→20:32)
[2018-02-08] MEDS: FOLIC ACID 1 MG TAB PO (08:20)
[2018-02-08] MEDS: VENLAFAXINE **XR** 75MG CAPSULE PO (08:20)
[2018-02-08] MEDS: NALTREXONE 50 MG TAB PO ×2 (08:20→20:32)
[2018-02-08] MEDS: hydrOXYzine 50 MG TAB PO (15:31)
[2018-02-08] MEDS: MIRTAZAPINE 15 MG TAB PO (20:32)
[2018-02-08] MEDS: rOPINIRole 1MG TAB PO (20:34)
[2018-02-08] MEDS: PRAZOSIN 1 MG CAP PO (20:34)
[2018-02-08] MEDS: PILL CRUSHER/CUTTER 1 EACH XX (20:38)
[2018-02-08] MEDS: BELSOMRA PO (22:39)
[2018-02-09] MEDS: FOLIC ACID 1 MG TAB PO (08:24)
[2018-02-09] MEDS: NALTREXONE 50 MG TAB PO (08:24)
[2018-02-09] MEDS: MYCOPHENOLATE MOFETIL 250 MG CAP (J7517) PO (08:24)
[2018-02-09] MEDS: VENLAFAXINE **XR** 75MG CAPSULE PO (08:24)
[2018-02-09] MEDS: ACYCLOVIR 200 MG CAPSULE PO (08:24)
[2018-02-09] MEDS: PILL CRUSHER/CUTTER 1 EACH XX (08:25)
[2018-02-09] MEDS: PYRIDOSTIGMINE 60 MG TAB PO (08:25)
[2018-02-09] MEDS: ACETAMINOPHEN TAB 650MG DOSE (2X325MG) PO (08:25)
[2018-02-09] MEDS: hydrOXYzine 50 MG TAB PO (09:12)
== END 2018-02-09 11:45 | disposition home or self-care (01) | DRG 751 ==
LOC: M ED 15:26 → M ED INP 18:37 → M PSY 02-05 14:11
DX: F33.2 Major depressive disorder, recurrent severe without psychotic features (principal); G70.00 Myasthenia gravis without (acute) exacerbation; N32.81 Overactive bladder; F60.3 Borderline personality disorder; Z91.5 Personal history of self-harm; Z62.811 Personal history of psychological abuse in childhood; Z62.810 Personal history of physical and sexual abuse in childhood; K21.9 Gastro-esophageal reflux disease without esophagitis; A60.09 Herpesviral infection of other urogenital tract; G89.29 Other chronic pain; M79.7 Fibromyalgia; G47.33 Obstructive sleep apnea (adult) (pediatric); J30.1 Allergic rhinitis due to pollen; Z90.49 Acquired absence of other specified parts of digestive tract; Z79.899 Other long term (current) drug therapy; Z88.2 Allergy status to sulfonamides; Z88.8 Allergy status to other drugs, medicaments and biological substances; Z91.018 Allergy to other foods; Z91.048 Other nonmedicinal substance allergy status

== ENCOUNTER → 2018-07-01 | Outpatient (REF) | payer MEDICAID, OTHER ==
[~2018-07-01] MED LIST changes: +ABIL1TAB11 PO; +ACYC200C8 PO; +ACYC400T PO; +ADDE10CA3; +AKWASOL OD; +ANEC4CRE3; +ARIP1TAB2 PO; +ARIP1TAB6 PO; +ARTI99.0 OU; +ATIV1TAB7 PO; +BACL1TAB8 PO; +BELS1TAB PO; +CEPH500T PO; +CLON0.5T17; +CLON0.5T8 PO; +D-3-50003 PO; +D-50TAB PO; +DESV50TA3 PO; +DIAZ2TAB PO; +DULO1CAP3 PO; +DULO30CA9 PO; +FOLI1TAB11 PO; -GABA-282 PO; +GABA-843 PO; +HYDR-3363; +HYDRO50TAB PO; +KEFL500C17 PO; +LIDO1CRE2; +LORA-243 PO; +LORA0.5T11 PO; -LORA10TA2 PO; +MINI1CAP PO; +MIRT15TA3 PO; +MYCO500T; +MYRB50TA PO; +NALT50TA4; +NALT50TA4 PO; +NEUR300C PO; +ONDA4TAB5 PO; +PRED20TA PO; +PREG50CA PO; +PROG1CRE TD; +PYRI1TAB5 PO; +PYRI60TA2; +ROPI1TAB PO; +TRAZO50TA PO; +VALI5TAB PO; +VENL75CA47 PO; +VIIB10TA; -VITA1CAP7 PO; +XANA0.5T PO; +ZALE10CA; +ZALE5CA; +ZALE5CA PO; +ZOFR4TAB14 PO
== END ==
LOC: M SFHCADAM 14:24
PROVIDERS: ATTEND Family Medicine
DX: R30.0 Dysuria (principal)

== ENCOUNTER 2018-07-12 08:50 | Emergency (ER) | payer MEDICAID, OTHER ==
[~2018-07-12] VITALS: Ht 165.1 cm; Wt 109.1 kg
[2018-07-12] MEDS ORDERED: ADDE15CA3 (09:06)
[2018-07-12] MEDS ORDERED: CLIN300C5 (09:06)
[2018-07-12] MEDS ORDERED: FURO20TA2 (09:06)
[2018-07-12] MEDS ORDERED: CLOZ50TA (09:06)
[2018-07-12] MEDS ORDERED: OMEP-218 (09:06)
[2018-07-12] MEDS ORDERED: ACETAMINOPHEN 500 MG TAB PO ONE (09:30)
--- NOTE | 2018-07-12 11:12 | REP ---
PELVIC SONOGRAPHY: HISTORY: Pelvic pain. History of fibroid. Cysts. FINDINGS: Transabdominal and transvaginal scanning are performed. Uterine dimensions are 8.2 x 4.3 x 5.6 cm. Endometrial echo is 1.3 cm thick. There is an anterior fibroid seen measuring 2.2 x 2.0 x 2.5 cm. No other focal uterine mass seen. No free fluid is noted. Right ovary measures 2.4 x 1.4 x 2.0 cm. The left ovary is normal measuring 2.0 2.0 x 2.0 x 2.1 cm. Doppler flow is present in both ovaries. A Nabothian cyst is seen on transvaginal scanning. IMPRESSION: 2.5 cm anterior myometrial fibroid. Otherwise negative pelvic sonography. Electronically Signed by Justin Tucker MD 07/12/2018 11:41 A
[2018-07-12] MEDS ORDERED: KETO10TAB PO (11:18)
[2018-07-12 11:19] VITALS: BP 145/95
== END 2018-07-12 11:30 | disposition home or self-care (01) ==
LOC: M ED 08:50
DX: D25.9 Leiomyoma of uterus, unspecified (principal); Z87.42 Personal history of other diseases of the female genital tract; K21.9 Gastro-esophageal reflux disease without esophagitis; M79.7 Fibromyalgia; F99 Mental disorder, not otherwise specified; G70.00 Myasthenia gravis without (acute) exacerbation; Z88.8 Allergy status to other drugs, medicaments and biological substances; Z88.1 Allergy status to other antibiotic agents; Z88.2 Allergy status to sulfonamides; Z91.018 Allergy to other foods; Z91.048 Other nonmedicinal substance allergy status; J30.1 Allergic rhinitis due to pollen; Z79.899 Other long term (current) drug therapy; Z79.2 Long term (current) use of antibiotics

== ENCOUNTER → 2018-07-30 | Outpatient (REF) | payer OTHER ==
[~2018-07-30] MED LIST changes: +ADDE15CA3; +CLIN300C5; +CLOZ50TA; +FURO20TA2; +KETO10TAB PO; +OMEP-218
[2018-08-03 14:16] LABS: HPV HYBRID CAPTURE II Positive (Negative)
== END ==
LOC: M LAB REF 13:31
PROVIDERS: ATTEND Obstetrics & Gynecology
DX: Z12.4 Encounter for screening for malignant neoplasm of cervix (principal)

== ENCOUNTER → 2018-08-12 | Outpatient (REF) | payer OTHER | LOC: M LAB REF 17:36 | PROVIDERS: ATTEND Obstetrics & Gynecology | DX: N93.9 Abnormal uterine and vaginal bleeding, unspecified (principal) ==

== ENCOUNTER → 2018-08-26 | Outpatient (CLI) | payer OTHER ==
[~2018-08-26] MED LIST changes: -ADDE15CA3; +ADDE15CA3 PO; -CLOZ50TA; +CLOZ50TA PO; -FURO20TA2; +FURO20TA2 PO; +MIRT1TAB16 PO; -OMEP-218; +OMEP-218 PO; +OXYC1TAB23 PO; +TRAZ1TAB10 PO; -TRAZO50TA PO; +VENL150C43 PO; +XANA1TAB2 PO
--- NOTE | 2018-08-27 03:31 | REP ---
Clinical: Uterine fibroid. Comparison: 07/12/2018 . Technique: Transabdominal pelvic ultrasound followed by transvaginal examination for better evaluation of the endometrium and adnexa with color Doppler evaluation of the ovaries. Findings: Bladder is unremarkable and measures 11.1 x 3.9 x 7.7 cm . Anteverted uterus measures 9.2 x 3.4 x 6.1 cm . The endometrial complex measures 8.4 mm thickness. 2.7 x 1.3 x 1.6 cm anterior intramural fibroid noted. Small Nabothian cysts are identified in the lower uterine segment. Bilateral ovaries are normal in appearance and vascularity without evidence for torsion. Right ovary measures 2.4 x 1.4 x 1.5 cm ; R I = 0.51 . Left ovary measures 3.3 x 2.3 x 2.6 cm with 2.4 cm hemorrhagic cyst ; R I = 0.51 . No pelvic fluid or adnexal mass lesion . Impression: 1. 2.7 cm anterior intramural fibroid. 2. Bilateral ovaries without torsion. 2.4 cm left hemorrhagic cyst noted. Electronically Signed by Mt Esteban MD 08/27/2018 03:22 A
== END ==
LOC: M RAD 16:38
PROVIDERS: ATTEND Obstetrics & Gynecology
DX: D25.9 Leiomyoma of uterus, unspecified (principal)

== ENCOUNTER → 2018-09-04 | Outpatient (CLI) | payer OTHER ==
[~2018-09-04] MED LIST changes: +COLA100C5 PO; +IBUP80TA PO; +PERCOCET PO
--- NOTE | 2018-09-05 13:44 | ECGEPIP ---
[facility] Test Date: 2018-09-04 Pat Name: BRADY CARVAJAL Department: Room: - Gender: Female Social Worker Psychiatric: [place] : 1980 Requested By: DUANE Garcia Order Number: [id number] Reading MD: Torin Montoya Measurements Intervals [place] Rate: 85 P: 28 IA: 147 QRS: 14 QRSD: 111 T: QT: 353 QTc: 421 Interpretive Statements SINUS RHYTHM Incomplete right bundle branch block Nonspecific T wave abnormality represents a change from tracing done 01-15-18 Electronically Signed on 09-05-2018 13:44:11 EDT by Torin Montoya
== END ==
LOC: M EKG 11:07
PROVIDERS: ATTEND Anesthesiology
DX: Z01.818 Encounter for other preprocedural examination (principal); R40.0 Somnolence

== ENCOUNTER 2018-09-13 09:14 | Day surgery (SDC) | payer OTHER ==
[~2018-09-13] VITALS: Ht 167.6 cm; Wt 111.0 kg
[2018-09-13] VITALS (7 sets, daily range): BP systolic 131–152; BP diastolic 72–89
[~2018-09-13 09:14] MED LIST changes: -COLA100C5 PO; -IBUP80TA PO; +LR 1,000 ML IV ONE; -PERCOCET PO
[2018-09-13] MEDS ORDERED: ROCURONIUM BROMIDE 50 MG/5 ML VIAL As Ordered ONE (10:09)
[2018-09-13] MEDS ORDERED: PROPOFOL 200 MG/20 ML VIAL As Ordered ONE (10:09)
[2018-09-13] MEDS ORDERED: MIDAZOLAM INJ 2 MG/2 ML VIAL (J2250) As Ordered ONE (10:09)
[2018-09-13] MEDS ORDERED: fentaNYL 250 MCG/5 ML INJECTION (J3010) As Ordered ONE ×2 (10:09→12:02)
[2018-09-13] MEDS ORDERED: LIDOCAINE 2% INJ 100 MG/5 ML SDV (FOR ANES.) As Ordered ONE (10:10)
[2018-09-13] MEDS ORDERED: ONDANSETRON 4MG/2ML VIAL (J2405) As Ordered ONE (10:10)
[2018-09-13] MEDS ORDERED: dexameTHASONE 4 MG/ML 1ML VIAL (J1100) As Ordered ONE (10:10)
[2018-09-13 10:25] LABS: HCG, SERUM QUALITATIVE NEGATIVE (NEGATIVE)
[2018-09-13] MEDS ORDERED: METHYLENE BLUE 0.5% (5MG/ML) 10 ML AMP (PROVAYBLUE)(Q9968 PER 1MG) As Ordered ONE (11:01)
[2018-09-13] MEDS ORDERED: BUPIVACAINE HCL 0.25% 10 ML VIAL As Ordered ONE (11:01)
[2018-09-13] MEDS ORDERED: BUPIVACAINE HCL 0.25% 30 ML VIAL As Ordered ONE (11:07)
[2018-09-13] MEDS ORDERED: KETOROLAC 60 MG/2 ML VIAL (J1885) As Ordered ONE (13:57)
[2018-09-13] MEDS ORDERED: PERCOCET 5MG/325MG TAB PO PRN ×2 (14:30)
[2018-09-13] MEDS ORDERED: ONDANSETRON 4MG/2ML VIAL (J2405) IV PRN ×2 (14:30→15:00)
[2018-09-13] MEDS ORDERED: PROMETHAZINE INJ 25 MG/ML VIAL (J2550) IV PRN (14:30)
[2018-09-13] MEDS ORDERED: LR 1,000 ML IV SCH (15:00)
[2018-09-13] MEDS ORDERED: METOCLOPRAMIDE INJ 10MG/2ML VIAL (J2765) IV PRN (15:00)
--- NOTE | 2018-09-13 15:05 | NUR ---
Operative Note DATE OF PROCEDURE: 09/13/2018 PREOPERATIVE DIAGNOSIS: 1. Abnormal uterine bleeding. 2. Chronic pelvic pain 3. Uterine leiomyoma POSTOPERATIVE DIAGNOSIS: 1. Abnormal uterine bleeding. 2. Chronic pelvic pain 3. Uterine leiomyoma PROCEDURE PERFORMED: Robotic-assisted total laparoscopic hysterectomy, bilateral salpingectomy and cystoscopy. SURGEON: Mickey Gilmore DO ENDOSCOPY TECHNICIAN: Yaneli Kaiser, PGY-3 (ICE CREAM SHOP ASSOCIATE), Ceelste Luis, CASH CONTROLLER-C (needed for uterine manipulation). ANESTHESIA: General endotracheal. SPECIMENS TO PATHOLOGY: Uterus, cervix with bilateral fallopian tubes ESTIMATED BLOOD LOSS: 50 mL. FLUIDS REPLACED: 1 liters lactated Ringer's. DRAINS: Singh catheter 100 mL. COMPLICATIONS: None. PREOPERATIVE ANTIBIOTICS: Ancef 2g IV x 1 (administered within 30 minutes of procedure start time) INTRAOPERATIVE FINDINGS: Uterus was approximately 8-10 cm in greatest dimension. No e/o subserosal leiomyoma. The right and left ovary and fallopian tubes were normal in appearance. Cystoscopic findings: No bladder injury. No suture material. Bilateral ureteral orifice efflux visualized after IV infusion of methylene blue. INDICATION: Abnormal uterine bleeding/CPP/uterine leiomyoma. PROCEDURE: The patient was counseled and consented on the risks, benefits, indications, and alternatives of the procedure. Informed consent was obtained. She was take n to the operating room with an IV running and placed on the operating table in the dorsal supine position. General anesthesia was administered and airway secured without any difficulty. The patient was placed in a level horizontal low lithotomy position. She was prepped and draped in a normal sterile fashion. A time-out was performed per protocol. A Singh catheter was placed under sterile conditions. A sterile speculum was placed into the vagina with good visualization of the cervix. The anterior lip of the cervix was grasped with a single-tooth tenaculum and downward traction was applied. The uterus was sounded to 8 cm. The cervix was sequentially dilated with Lance dilators up to #16. The anterior and posterior lip were tagged with and interrupted stitch using #0 Vicryl suture. The VCare uterine manipulator was placed in typical fashion without any difficulty. The single-toothed tenaculum was removed. The sterile speculum was removed. The VCare uterine manipulator was noted to be adequately in place. A glove switch was performed. Attention was turned to the abdomen. A 2 mm umbilical incision was made with the 11 blade. The Veress needle was placed through this incision into the intraperitoneal cavity. Intraperitoneal placement was confirmed with the following checks: no resistance/ease of flow of normal saline from the attached syringe through the Veress needle, no return of blood/fluid/succus upon aspirating with the attached syringe, a positi ve drop test, and the opening pressure during insufflation was less than 10 mmHg. The abdomen was insufflated with 2.5 liters of gas. The Veress needle was removed. An 8mm horizontal midline, supraumbilical incision was made with the 11 blade. Through this incision, a laparoscopic cannula was placed under direct visualization technique into the intraperitoneal cavity. Intraperitoneal placement was confirmed. The patient was placed in a low lithotomy steep Trendelenberg position. The right and left lower quadrant port sites were placed via 8 mm incisions using the 11 blade. The 8 mm da Ronnie cannulas were placed under laparoscopic guidance on both sides. An additional 8 mm accessory port-site was placed under laparoscopic guidance in the left upper quadrant, approximately 10 cm directly above the left lower quadrant port site. Given the successful placement of all the DaVinci cannulas, the robot was easily side-docked. Attention was turned to the [employer] robotic console. The right and left distal fallopian tubes were identified and excised with the Da Ronnie vessel sealer instrument, thus removing both fimbriated ends of each fallopian tube. The right fallopian tube, utero-ovarian ligament, and round ligament were sequentially clamped, coagulated and transected with the DaVinci vessel sealer device. The Da Ronnie vessel sealer was used to dissect and mobilize the right-sided half of the vesicouterine peritoneum/"bladder flap" with both blunt and bipolar dissection. The right uterine vasculature was skeletonized and identified. Excellent hemostasis was achieved. The left fallopian tube, utero-ovarian ligament and round ligament were sequentially clamped, coagulated and transected using the Da Ronnie vessel sealer device. The left chicken ranch rine vasculature was skeletonized and easily identified. Excellent hemostasis was noted. The remainder of the vesicouterine peritoneum was dissected and mobilized along the anterior portion of the VCare uterine manipulator cup in order to complete the bladder flap. This resulted in adequate mobilization/displacement of the bladder away from the cervix. During all of the dissection described above, an occasional small bleeding vessel needed to be cauterized with the DaVinci Force bipolar forceps. The right and left uterine vasculature were sequentially clamped, coagulated and transected with both DaVinci Force bipolar forceps and vessel sealer instruments. Excellent blanching of the uterus was noted, thus indicating that the blood supply to the uterus was obliterated. Excellent hemostasis was noted. The DaVinci monopolar augusta were used to create the circumferential colpotomy around the VCare cervical cup border. Incidental small bleeding vaginal vessels were cauterized with the DaVinci Force bipolar forceps. This circumferential incision was completed and the uterus with the cervix was noted to be fully amputated as one unit. This specimen was brought through the colpotomy into the vagina, and ultimately removed and sent to pathology for permanent section. The vaginal cuff was closed in running fashion with V-Loc suture. Excellent hemostasis of the vaginal cuff was noted. The lower abdomen/pelvis was irrigated and suctioned, thus removing all blood and clot. Excellent hemostasis was noted. Elizabeth was placed over the surgical sites to maintain hemostasis. The insufflation gas was released from the intraperitoneal cavity. All cannulas were removed. The robot was un-docked without any difficulty. The patient was taken out of steep Trendelenburg and placed back into a level horizontal low lithotomy position. The Singh catheter was removed. A 30 degree cystoscope was placed transurethrally into the bladder. The entire bladder mucosa was examined. There was no evidence of a bladder injury or suture material. Brisk bilateral ureteral orifice efflux of urine was visualized after IV infusion of methylene blue. The cystoscope was removed and the Singh catheter was replaced. The vagina was copiously irrigated. The vaginal cuff was palpated and noted to be intact. The sponge, needle, and instrument counts were correct. A glove switch was performed. Attention was turned back to the abdomen. [facility]. The gas was released from the abdomen. The cannulas were all removed. Each skin incision was closed with #4-0 Monocryl in subcuticular fashi on and reinforced with Dermabond. Sponge, needle, and instrument counts were again correct. The patient tolerated the entire procedure well. She was transferred to the postanesthesia care unit in good and stable condition. Dinah Gilmore DO
[2018-09-13] MEDS: fentaNYL 100 MCG/2 ML INJECTION (J3010) IV PRN ×4 (15:20→15:35)
[2018-09-13] MEDS: PERCOCET 5MG/325MG TAB PO PRN ×2 (15:20→15:57)
[2018-09-13] MEDS ORDERED: PYRIDOSTIGMINE 60 MG TAB PO ONE (16:00)
[2018-09-13] MEDS ORDERED: PILL CUTTER 1 EACH XX ONE (16:03)
[2018-09-13] MEDS ORDERED: PILL CUTTER 1 EACH XX PRN (16:30)
[2018-09-13] MEDS: LR 1,000 ML IV SCH (16:49)
[2018-09-13] MEDS: DOCUSATE SODIUM 100 MG CAP PO SCH (20:59)
[2018-09-13] MEDS: PYRIDOSTIGMINE 60 MG TAB PO SCH (21:00)
[2018-09-13] MEDS: KETOROLAC 30 MG/ML VIAL (J1885) IV SCH (21:00)
[2018-09-13] MEDS ORDERED: cloZAPine 25 MG TAB (S0136) PO SCH (21:00)
[2018-09-14] MEDS: LR 1,000 ML IV SCH (00:50)
[2018-09-14 02:00] VITALS: BP 138/78
[2018-09-14] MEDS: KETOROLAC 30 MG/ML VIAL (J1885) IV SCH ×2 (02:31→08:47)
[2018-09-14 06:00] VITALS: BP 156/82
--- NOTE | 2018-09-14 07:30 | IPNPDOC ---
Subjective General Date/Time Seen The patient was seen on 09/14/18 at 07:23. Subject Chief Complaint/History The patient is a 38-year-old P1 POD#1 s/p RA TLH/BS, cystoscopy for uterine fibroids and chronic pelvic pain. She is doing well this am, pain is well controlled, tolerating PO, voiding, ambulating. No CP, SOB, dizziness, n/v. +Flatus Current Medications Current Medications Current Medications Clozapine (Clozaril) 50 mg QHS PO Last administered on 09/13/18at 20:59; Start 09/13/18 at 21:00 Docusate Sodium (Colace) 100 mg BID PO Last administered on 09/13/18at 20:59; Start 09/13/18 at 21:00 Fentanyl Citrate (Sublimaze) 25 mcg Q5MP PRN IV MODERATE PAIN (PS 4-7) Last administered on 09/13/18at 15:35; Start 09/13/18 at 15:00; Stop 09/13/18 at 15 :42; Status DC Ibuprofen (Advil) 800 mg Q8H PO ; Start 09/14/18 at 16:00 Ketorolac Tromethamine (ToRADol) 30 mg Q6H IV Last administered on 09/14/18at 02:31; Start 09/13/18 at 20:00; Stop 09/14/18 at 08:01 Lactated Ringer's 1,000 ml @ 100 mls/hr Q10H IV ; Start 09/13/18 at 15:00; Stop 09/13/18 at 16:00; Status DC Lactated Ringer's 1,000 ml @ 125 mls/hr Q8H IV Last administered on 09/14/18at 00:50; Start 09/13/18 at 14:30 Metoclopramide HCl (REGLAN INJection) 10 mg Q6HP PRN IV NAUSEA OR VOMITING; Start 09/13/18 at 15:00; Stop 09/13/18 at 16:00; Status DC Ondansetron HCl (ZOFRAN INJection) 4 mg Q4HP PRN IV NAUSEA OR VOMITING; Start 09/13/18 at 15:00; Stop 09/13/18 at 16:00; Status DC Ondansetron HCl (ZOFRAN INJection) 4 mg Q6HP PRN IV NAUSEA OR VOMITING; Start 09/13/18 at 14:30 Oxycodone/ Acetaminophen (Percocet 5mg/ 325mg Tablet) 1 tab ASDIRECTED PRN PO MILD/MODERATE PAIN (PS 1-7) Last administered on 09/13/18at 15:57; Start 09/13/18 at 15:00; Stop 09/13/18 at 15:57; Status DC Oxycodone/ Acetaminophen (Percocet 5mg/ 325mg Tablet) 1 tab Q4HP PRN PO MILD PAIN (PS 1-4); Start 09/13/18 at 14:30 Oxycodone/ Acetaminophen (Percocet 5mg/ 325mg Tablet) 2 tab Q4HP PRN PO MODERATE/SEVERE PAIN (PS 5-10) Last administered on 09/14/18at 05:38; Start 09/13/18 at 14:30 Promethazine HCl (PHENERGAN INJection) 12.5 mg Q6HP PRN IV NAUSEA; Start 09/13/18 at 14:30 Pyridostigmine [place] (Mestinon) 90 mg QID PO Last administered on 09/13/18at 21:00; Start 09/13/18 at 21:00 Allergies Coded Allergies: amitriptyline (Verified Allergy, Severe, SWELLING, 07/12/18) Grass (Verified Allergy, Mild, ITCHY EYES,NOSE, 12/17/17) TREES (Verified Allergy, Mild, ITCHY EYES,NOSE, 12/17/17) TAPE (Verified Allergy, Unknown, RASH/BLISTER, 07/12/18) bupropion (Verified Allergy, Unknown, ESOPHAGEAL SPASMS, 07/12/18) metaxalone (Verified Allergy, Unknown, itching, 07/12/18) minocycline (Verified Allergy, Unknown, 07/12/18) mold (Verified Allergy, Unknown, 07/12/18) pregabalin (Verified Allergy, Unknown, EDEMA, 07/12/18) propranolol (Verified Allergy, Unknown, 07/12/18) tizanidine (Verified Allergy, Unknown, ITCHING, 07/12/18) trazodone (Verified Allergy, Unknown, EDEMA, 07/12/18) valproic acid (Verified Allergy, Unknown, DOES NOT METABOLIZE, 07/12/18) banana (Verified Adverse Reaction, Unknown, VOMITING, 07/12/18) benztropine (Verified Adverse Reaction, Unknown, BLURRED VISION, 08/31/18) clindamycin (Verified Adverse Reaction, Unknown, HEART BURN, 07/12/18) cyclobenzaprine (Verified Adverse Reaction, Unknown, IRRITABILITY, 07/12/18) gabapentin (Verified Adverse Reaction, Unknown, extreme weakness, 08/31/18) sulfamethoxazole (Verified Adverse Reaction, Unknown, DIARRHEA, 07/12/18) trimethoprim (Verified Adverse Reaction, Unknown, DIARRHEA, 07/12/18) vilazodone (Verified Adverse Reaction, Unknown, MOOD CHANGES, 08/31/18) Objective Physical Examination Examination GENERAL APPEARANCE:Patient seen, laying in bed, awake, alert, and oriented. Comfortable, in no acute distress. LUNGS: Clear to auscultation bilaterally. No wheezing appreciated HEART: No chest wall abnormalities. Regular rate and rhythm with no murmurs appreciated ABDOMEN: Abdomen is soft, mildly distended and appropriately tender to palpation. +BS in all 4 quadrants. No rebound or guarding. EXTREMITIES: Non tender, non edematous. Old scars present on all 4 extremities Vital Signs Vital Signs Date Time Temp Pulse Resp B/P (MAP) Pulse Ox O2 Delivery O2 Flow Rate FiO2 09/14/18 06:08 18 09/14/18 06:00 97.6 79 156/82 (106) 97 2.0 I&Os I&O- Last 24 Hours up to 6 AM 09/14/18 06:00 Intake Total 2760 ml Output Total 1250 ml Balance 1510 ml Laboratory Data Labs 24H Laboratory Tests 2 09/13/18 09:27: Human Chorionic Gonadotropin, Qual NEGATIVE Impression 38 yo P1 POD#1 s/p RA TLH/BS, cysto for uterine fibroid and chronic pelvic pain Neuro: pain well controlled on current regimen. Continue toradol, percocet. Continue home antianxiety meds. H/o myasthenia gravis, continue pyridostigmine. CV/Pulm: No acute issues FEN/GI: tolerating regular diet, will SLIV. Phenergan prn for nausea, colace for constipation : voiding spontaneously, UOP adequate LEAD MINER BLASTING: s/p TLH, will follow up with Dr. Gilmore in 2-3 weeks PPx: SCDs, IS, encourage ambulation Dispo: anticipate discharge home today d/w Dr. Trujillo and Dr. Deirdre Kaiser, PGY3 Plan / VTE VTE Prophylaxis Ordered?: No VTE Exclusion Mechanical Proph: Low Risk for VTE VTE Exclusion Pharmacological: At Low Risk for VTE Plan / Urinary Catheter Urinary Catheter: D/C OSCAR Klein PGY-3 Sep 14, 2018 07:29
[2018-09-14] MEDS ORDERED: IBUP80TA PO (08:08)
[2018-09-14] MEDS ORDERED: COLA100C5 PO (08:08)
[2018-09-14] MEDS ORDERED: PERCOCET PO (08:08)
[2018-09-14] MEDS: PYRIDOSTIGMINE 60 MG TAB PO SCH (08:47)
[2018-09-14] MEDS: DOCUSATE SODIUM 100 MG CAP PO SCH (08:47)
[2018-09-14 10:00] VITALS: BP 147/87
[2018-09-14] MEDS ORDERED: IBUPROFEN 800 MG TAB PO SCH (16:00)
== END 2018-09-14 11:07 | disposition home or self-care (01) ==
LOC: M SDC 09:14 → M MSPAV 16:37 → M SDC 09-14 11:07
PROVIDERS: ATTEND Obstetrics & Gynecology
DX: R10.2 Pelvic and perineal pain (principal); N80.0 Endometriosis of uterus; N72 Inflammatory disease of cervix uteri; K21.9 Gastro-esophageal reflux disease without esophagitis; M79.7 Fibromyalgia; F41.9 Anxiety disorder, unspecified; F32.9 Major depressive disorder, single episode, unspecified; G47.30 Sleep apnea, unspecified; G70.00 Myasthenia gravis without (acute) exacerbation; Z88.1 Allergy status to other antibiotic agents; Z88.8 Allergy status to other drugs, medicaments and biological substances; Z87.891 Personal history of nicotine dependence; Z79.899 Other long term (current) drug therapy
CPT/HCPCS: 36415; 58571; 84703; 86850; 88307; 96361; 96374; 96376; J0690; J1100; J1885; J2250; J2405; J3010; Q9968

== ENCOUNTER → 2018-09-20 | Outpatient (REF) | payer OTHER ==
[~2018-09-20] MED LIST changes: +COLA100C5 PO; +IBUP80TA PO; -LR 1,000 ML IV ONE; +PERCOCET PO
[2018-09-20 16:45] LABS: BASO # 0.1 10^3/uL (0.0-0.2); BASO % 0.6 % (0.0-1.0); EOS # 0.7 10^3/uL (0.0-0.50); EOS % 6.6 % (0.0-3.0); HEMATOCRIT 39.5 % (36.0-47.0); LYMPH # 2.1 10^3/uL (1.5-4.5); LYMPH % 20.5 % (24.0-44.0); MEAN CORPUSCULAR HEMOGLOBIN 29.5 pg (27.0-33.0); MEAN CORPUSCULAR HGB CONC 32.9 g/dl (32.0-36.5); MEAN CORPUSCULAR VOLUME 89.6 fl (80.0-96.0); MONO # 0.8 10^3/uL (0.0-0.8); MONO % 7.6 % (0.0-5.0); NEUTROPHILS # 6.5 10^3/uL (1.8-7.7); NEUTROPHILS % 63.3 % (36.0-66.0); PLATELET COUNT, AUTOMATED 305 10^3/uL (150-450); RED BLOOD COUNT 4.41 10^6/uL (4.00-5.40); WHITE BLOOD COUNT 10.3 10^3/uL (4.0-10.0)
== END ==
LOC: M LABDRWAD 15:22
PROVIDERS: ATTEND Nurse Practitioner Psychiatric/Mental Health
DX: F28 Other psychotic disorder not due to a substance or known physiological condition (principal); Z79.899 Other long term (current) drug therapy

== ENCOUNTER 2018-10-30 20:38 | Inpatient (IN) | payer MEDICAID, OTHER ==
[~2018-10-30] VITALS: Ht 162.6 cm; Wt 110.2 kg
[~2018-10-30 20:38] MED LIST changes: -ARTI99.0 OU; +ARTIDRO2 OU; -DULO1CAP3 PO; +DULO1CAP6 PO; +HYDR1TAB33 PO; -HYDRO50TAB PO
[2018-10-30] MEDS ORDERED: rOPINIRole 1MG TAB PO SCH (21:00)
[2018-10-30 21:33] LABS: HEMATOCRIT 39.6 % (36.0-47.0); HEMOGLOBIN 12.8 g/dl (12.0-15.5); MEAN CORPUSCULAR HEMOGLOBIN 29.1 pg (27.0-33.0); MEAN CORPUSCULAR HGB CONC 32.3 g/dl (32.0-36.5); PLATELET COUNT, AUTOMATED 285 10^3/uL (150-450); WHITE BLOOD COUNT 8.9 10^3/uL (4.0-10.0)
[2018-10-30 21:45] LABS: HCG, SERUM QUALITATIVE NEGATIVE (NEGATIVE)
[2018-10-30] MEDS ORDERED: NALT50TA4 PO (21:45)
[2018-10-30] MEDS ORDERED: LOXA50CA PO (21:45)
[2018-10-30] MEDS ORDERED: IBUP80TA PO (21:45)
[2018-10-30] MEDS ORDERED: ROPI0.253 PO (21:45)
[2018-10-30] MEDS ORDERED: ZALE10CA PO (21:45)
[2018-10-30 22:10] LABS: ACETAMINOPHEN LEVEL < 2.0 UG/ML (10.0-30.0); ALBUMIN 3.9 GM/DL (3.2-5.2); ALT/SGPT 61 U/L (12-78); BILIRUBIN,DIRECT < 0.1 MG/DL (0.0-0.2); BILIRUBIN,TOTAL 0.3 MG/DL (0.2-1.0); BLOOD UREA NITROGEN 8 MG/DL (7-18); CALCIUM LEVEL 9.1 MG/DL (8.5-10.1); CARBON DIOXIDE LEVEL 27 MEQ/L (21-32); CHLORIDE LEVEL 107 MEQ/L (98-107); CREATININE FOR GFR 0.89 MG/DL (0.55-1.30); ETHYL ALCOHOL (ETHANOL) < 0.003 % (0.000-0.010); GLOMERULAR FILTRATION RATE > 60.0 (>60); GLUCOSE, FASTING 87 MG/DL (70-100); POTASSIUM SERUM 4.1 MEQ/L (3.5-5.1); SALICYLATE LEVEL < 1.7 MG/DL (5.0-30.0); SODIUM LEVEL 139 MEQ/L (136-145)
[2018-10-30 22:23] LABS: AMPHETAMINES LEVEL URINE POSITIVE (NEGATIVE); BARBITURATES URINE NEGATIVE (NEGATIVE); BENZODIAZEPINES URINE POSITIVE (NEGATIVE); CANNABINOIDS URINE NEGATIVE (NEGATIVE); COCAINE METABOLITE URINE NEGATIVE (NEGATIVE); METHADONE URINE NEGATIVE (NEGATIVE); OPIATES URINE NEGATIVE (NEGATIVE); PHENCYCLIDINE URINE NEGATIVE (NEGATIVE)
[2018-10-30] MEDS ORDERED: MAALOX 30 ML SUSP *UDC PO PRN (23:15)
[2018-10-30] MEDS ORDERED: NICOTINE 21MG/24HR 1 EA TRANSDERMAL TD PRN (23:15)
[2018-10-30] MEDS ORDERED: MOM 30ML SUSPENSION UDC PO PRN (23:15)
[2018-10-31 00:25] VITALS: BP 163/90
[2018-10-31] MEDS: MYCOPHENOLATE MOFETIL 250 MG CAP (J7517) PO SCH ×4 (02:02→21:08)
[2018-10-31] MEDS: ACYCLOVIR 200 MG CAPSULE PO SCH ×3 (02:03→21:14)
[2018-10-31] MEDS: NALTREXONE 50 MG TAB PO SCH ×3 (02:03→21:13)
[2018-10-31] MEDS: PYRIDOSTIGMINE 60 MG TAB PO SCH ×5 (02:04→21:11)
[2018-10-31] MEDS: PILL CUTTER 1 EACH XX PRN ×3 (08:59→16:56)
[2018-10-31] MEDS: BACLOFEN 10 MG TAB PO SCH ×3 (09:00→21:09)
[2018-10-31] MEDS: rOPINIRole 0.25 MG TAB(REQUIP) PO SCH (09:00)
[2018-10-31] MEDS ORDERED: VENLAFAXINE **XR** 75MG CAPSULE PO SCH (09:00)
[2018-10-31] MEDS: FOLIC ACID 1 MG TAB PO SCH (09:00)
[2018-10-31 12:20] VITALS: BP 163/90
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
[2018-10-31] MEDS: OMEPRAZOLE 20 MG CAP PO SCH (15:21)
[2018-10-31] MEDS ORDERED: LORazepam 1 MG TAB PO STA (16:54)
[2018-10-31 18:00] VITALS: BP 143/83
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
[2018-10-31] MEDS: rOPINIRole 2MG TAB PO SCH (21:12)
[2018-10-31] MEDS: QUEtiapine FUMARATE 25 MG TAB PO SCH (21:14)
[2018-10-31] MEDS: ALPRAZolam 0.5 MG TAB PO PRN (21:17)
[2018-11-01 06:37] VITALS: BP 143/84
[2018-11-01] MEDS: IBUPROFEN 800 MG TAB PO PRN ×2 (06:39→14:50)
[2018-11-01] MEDS: MYCOPHENOLATE MOFETIL 250 MG CAP (J7517) PO SCH ×3 (08:04→20:38)
[2018-11-01] MEDS: rOPINIRole 0.25 MG TAB(REQUIP) PO SCH (08:04)
[2018-11-01] MEDS: VENLAFAXINE **XR** 75MG CAPSULE PO SCH (08:04)
[2018-11-01] MEDS: ACYCLOVIR 200 MG CAPSULE PO SCH ×2 (08:04→20:39)
[2018-11-01] MEDS: NALTREXONE 50 MG TAB PO SCH ×2 (08:05→20:39)
[2018-11-01] MEDS: BACLOFEN 10 MG TAB PO SCH ×3 (08:05→20:38)
[2018-11-01] MEDS: PYRIDOSTIGMINE 60 MG TAB PO SCH ×4 (08:05→20:40)
[2018-11-01] MEDS: FOLIC ACID 1 MG TAB PO SCH (08:05)
[2018-11-01] MEDS: OMEPRAZOLE 20 MG CAP PO SCH (08:05)
[2018-11-01] MEDS: ACETAMINOPHEN TAB 650MG DOSE (2X325MG) PO PRN ×2 (10:28→16:40)
--- NOTE | 2018-11-01 11:10 | MHIPNPDOC ---
[facility] Progress Note Progress Note Date of Service: 11/01/2018 History of Present Illness The patient a 38-year-old woman with a likely history of borderline personality disorder and depression presents with suicidality. She has multiple conflicting, controlled prescriptions that are likely unhelpful for her as recent studies have indicated borderline personality disorder decompensates in the context of benzodiazepine use. The patient has made various self-harm statements, but all have appeared very vain and primarily manipulative and behavioral. Interval History The patient was met with today where she describes that her symptoms do appear to be improving on the increased Effexor and Seroquel at night. She reports that she's fairly tired as she has had difficulty sleeping at home and reports that she is enjoying having some time to sleep. She's had no behavioral problems today. Last night, she had reported that she had claimed that she was worried she would want to try to "eat jarrett from her roommate's admission packet" so she was allowed to sleep in the restraint room. However, she was removed from their earlier today as the room would need to be used. It appeared that her situation was primarily behavioral in nature. Review Of Systems Reports improving mood, less fatigue, better motivation, less concentration focus with improving suicidal thoughts only intermittent throughout the day. Psychotherapy None on this visit. Vital Signs Reviewed. Mental Status Examination General: Well dressed with good hygiene Speech: Spontaneous and fluid Thought processes: Linear and logical MSK: Smooth and coordinated gait, no signs of tremors or involuntary orofacial movements Thought content: Future orientated Abstract reasoning, and computation: Intact Description of associations: Intact Description of abnormal or psychotic thoughts: Admits to intermittent fleeting suicidal ideation. Denies homicidal ideation. Judgment: Limited Insight: Limited Orientation: Alert and orientated 3 Cognition: Grossly normal Recent and remote memory: Intact Attention span and concentration: Intact Fund of knowledge: Adequate Mood: "okay" Affect: Dysthymic with a constricted range. Diagnoses Unspecified depressive disorder. Rule out MDD versus substance induced. Borderline personality disorder. Assessment and Plan The patient a complex individual with borderline personality disorder, appears to be making some improvements on her increased Effexor 225 mg daily that will be continued and additionally her 75 mg of Seroquel at night. Her Ativan and Adderall will likely need to be addressed with her outpatient provider, Dr. Mg Viramontes as it is fairly problematic and studies indicate the borderline personality disorder does not perform well in these situations. Pulling the patient off the medication suddenly will likely destroy the therapeutic alliance with no overall change due to her difficulties in tolerating sudden change. Coordination with the outpatient care will need to commence in order to ascertain whether they would be amenable to discontinuing this as an outpatient. Disposition Patient need a further inpatient admission in order to treat her depression and to stabilize and remove her suicidal thoughts that currently pose a risk to her safety. Time Spent 20 minutes face to face Thursday Vital Signs Vital Signs Date Time Temp Pulse Resp B/P (MAP) Pulse Ox O2 Delivery O2 Flow Rate FiO2 11/01/18 06:37 98.4 64 14 143/84 (103) 10/31/18 12:20 100 10/31/18 12:20 Room Air Current Medications Current Medications Medications (Trade) Dose Ordered Sig/Ben Route PRN Reason Start Time Stop Time Status Last Admin Dose Admin Acetaminophen (Tylenol Tab) 650 mg Q6HP PRN PO HEADACHE or DISCOMFORT 10/30/18 23:15 11/01/18 10:28 Acyclovir (Zovirax) 400 mg BID PO 10/30/18 21:00 11/01/18 08:04 Al Hydrox/Mg Hydrox/Simethicone (Mylanta) 30 ml Q4HP PRN PO HEARTBURN/INDIGESTION 10/30/18 23:15 Alprazolam (Xanax) 1 mg QHS PRN PO SLEEP 10/30/18 23:15 10/31/18 21:17 Baclofen (Lioresal) 10 mg TID PO 10/31/18 09:00 11/01/18 08:05 Folic Acid (Folic Acid) 1 mg DAILY PO 10/31/18 09:00 11/01/18 08:05 Home Med (Med Rec Complete!) ASDIRECTED XX 10/30/18 22:00 10/30/18 22:00 DC Ibuprofen (Advil) 800 mg Q8H PRN PO PAIN 10/30/18 23:15 11/01/18 06:39 Lorazepam (Ativan) 0.5 mg Q6HP PRN PO ANXIETY 10/31/18 17:00 Lorazepam (Ativan) 1 mg STAT STAT PO 10/31/18 16:54 10/31/18 16:58 DC 10/31/18 17:06 Magnesium Hydroxide (Milk Of Magnesia) 30 ml DAILYPRN PRN PO CONSTIPATION 10/30/18 23:15 Mycophenolate Mofetil (Cellcept) 1,000 mg TID PO 10/30/18 21:00 11/01/18 08:04 Naltrexone HCl (Revia) 25 mg BID PO 10/30/18 21:00 11/01/18 08:05 Nicotine (Nicoderm Cq 21mg) 1 patch DAILY PRN TD As Needed For Craving 10/30/18 23:15 Cancel Omeprazole (PriLOSEC) 20 mg DAILY PO 10/31/18 09:00 11/01/18 08:05 Pyridostigmine [place] (Mestinon) 90 mg QID PO 10/30/18 21:00 11/01/18 08:05 Quetiapine Fumarate (SEROquel) 75 mg QHS PO 10/31/18 21:00 10/31/18 21:14 Ropinirole HCl (Requip) 0.25 mg QAM PO 10/31/18 09:00 11/01/18 08:04 Ropinirole HCl (Requip) 2 mg QHS PO 10/30/18 21:00 10/31/18 17:13 DC 10/31/18 02:02 Ropinirole HCl (Requip) 2 mg QHS PO 10/31/18 21:00 10/31/18 21:12 Venlafaxine HCl (Effexor Xr) 150 mg DAILY PO 10/31/18 09:00 10/31/18 16:52 DC 10/31/18 08:59 Venlafaxine HCl (Effexor Xr) 225 mg DAILY PO 11/01/18 09:00 11/01/18 08:04 Allergies Coded Allergies: amitriptyline (Verified Allergy, Severe, SWELLING, 07/12/18) Grass (Verified Allergy, Mild, ITCHY EYES,NOSE, 12/17/17) TREES (Verified Allergy, Mild, ITCHY EYES,NOSE, 12/17/17) TAPE (Verified Allergy, Unknown, RASH/BLISTER, 07/12/18) bupropion (Verified Allergy, Unknown, ESOPHAGEAL SPASMS, 07/12/18) metaxalone (Verified Allergy, Unknown, itching, 07/12/18) minocycline (Verified Allergy, Unknown, 07/12/18) mold (Verified Allergy, Unknown, 07/12/18) pregabalin (Verified Allergy, Unknown, EDEMA, 07/12/18) propranolol (Verified Allergy, Unknown, 07/12/18) tizanidine (Verified Allergy, Unknown, ITCHING, 07/12/18) trazodone (Verified Allergy, Unknown, EDEMA, 07/12/18) valproic acid (Verified Allergy, Unknown, DOES NOT METABOLIZE, 07/12/18) banana (Verified Adverse Reaction, Unknown, VOMITING, 07/12/18) benztropine (Verified Adverse Reaction, Unknown, BLURRED VISION, 08/31/18) clindamycin (Verified Adverse Reaction, Unknown, HEART BURN, 07/12/18) cyclobenzaprine (Verified Adverse Reaction, Unknown, IRRITABILITY, 07/12) gabapentin (Verified Adverse Reaction, Unknown, extreme weakness, 08/31/18) sulfamethoxazole (Verified Adverse Reaction, Unknown, DIARRHEA, 07/12/18) trimethoprim (Verified Adverse Reaction, Unknown, DIARRHEA, 07/12/18) vilazodone (Verified Adverse Reaction, Unknown, MOOD CHANGES, 08/31/18) MANJULA ALBRIGHT DO Nov 01, 2018 11:10
[2018-11-01 18:07] VITALS: BP 146/67
[2018-11-01] MEDS: QUEtiapine FUMARATE 25 MG TAB PO SCH (20:39)
[2018-11-01] MEDS: rOPINIRole 2MG TAB PO SCH (20:46)
[2018-11-01] MEDS: ALPRAZolam 0.5 MG TAB PO PRN (21:19)
[2018-11-02 06:36] VITALS: BP 148/88
[2018-11-02] MEDS: BACLOFEN 10 MG TAB PO SCH ×3 (09:01→20:44)
[2018-11-02] MEDS: OMEPRAZOLE 20 MG CAP PO SCH (09:01)
[2018-11-02] MEDS: VENLAFAXINE **XR** 75MG CAPSULE PO SCH (09:01)
[2018-11-02] MEDS: MYCOPHENOLATE MOFETIL 250 MG CAP (J7517) PO SCH ×3 (09:01→20:43)
[2018-11-02] MEDS: rOPINIRole 0.25 MG TAB(REQUIP) PO SCH (09:01)
[2018-11-02] MEDS: FOLIC ACID 1 MG TAB PO SCH (09:01)
[2018-11-02] MEDS: PYRIDOSTIGMINE 60 MG TAB PO SCH ×4 (09:01→20:42)
[2018-11-02] MEDS: NALTREXONE 50 MG TAB PO SCH ×2 (09:01→20:41)
[2018-11-02] MEDS: ACYCLOVIR 200 MG CAPSULE PO SCH ×2 (09:05→20:44)
--- NOTE | 2018-11-02 11:22 | MHIPNPDOC ---
[facility] Progress Note Progress Note Date of Service: 11/02/2018 History of Present Illness The patient a 38-year-old woman with a likely history of borderline personality disorder and depression presents with suicidality. She has multiple conflicting, controlled prescriptions that are likely unhelpful for her as recent studies have indicated borderline personality disorder decompensates in the context of benzodiazepine use. The patient has made various self-harm statements, but all have appeared very vain and primarily manipulative and behavioral. Interval History The patient is met with today. She describes that she generally spends most of the day in bed as she has noticed some oversedation from her Seroquel. She cont inues to ask about receiving benzodiazepines for tremors; however, she was told that this is unlikely to be helpful and emphasized that long-term benzodiazepine use is not approved for treatment of anxiety or depression. The patient reports that she is feeling somewhat better on increased Effexor 225 and that she reports generally feeling improved with less low mood, tearfulness, suicidal thought and improved outlook. Review Of Systems Denies any tremors, GI upsets, headaches or other side effects related to her medications at this time. Psychotherapy None on this visit. Vital Signs Reviewed. Mental Status Examination General: Well dressed with good hygiene Speech: Spontaneous and fluid Thought processes: Linear and logical MSK: Smooth and coordinated gait, no signs of tremors or involuntary orofacial movements Thought content: Future orientated Abstract reasoning, and computation: Intact Description of associations: Intact Description of abnormal or psychotic thoughts: Admits to intermittent fleeting suicidal ideation. Denies homicidal ideation. Judgment: Limited Insight: Limited Orientation: Alert and orientated 3 Cognition: Grossly normal Recent and remote memory: Intact Attention span and concentration: Intact Fund of knowledge: Adequate Mood: "okay" Affect: Dysthymic with a constricted range. Diagnoses Unspecified depressive disorder. Rule out MDD versus substance induced. Borderline personality disorder. Assessment and Plan The patient appears to making continued mild improvement, although she still admits to suicidal thoughts. Continue Effexor at current dose and Seroquel as oversedation will likely improve. Coordination with outpatient will likely be helpful to reduce her reliance on controlled substances as it is unlikely to be helpful in BPD. Disposition Patient need a further inpatient admission in order to treat her depression and to stabilize and remove her suicidal thoughts that currently pose a risk to her safety. Time Spent 15 minutes [id number]. Thursday Vital Signs Vital Signs Date Time Temp Pulse Resp B/P (MAP) Pulse Ox O2 Delivery O2 Flow Rate FiO2 11/02/18 06:36 99.4 82 16 148/88 (108) 10/31/18 12:20 100 10/31/18 12:20 Room Air Current Medications Current Medications Medications (Trade) Dose Ordered Sig/Ben Route PRN Reason Start Time Stop Time Status Last Admin Dose Admin Acetaminophen (Tylenol Tab) 650 mg Q6HP PRN PO HEADACHE or DISCOMFORT 10/30/18 23:15 11/01/18 16:40 Acyclovir (Zovirax) 400 mg BID PO 10/30/18 21:00 11/02/18 09:05 Al Hydrox/Mg Hydrox/Simethicone (Mylanta) 30 ml Q4HP PRN PO HEARTBURN/INDIGESTION 10/30/18 23:15 Alprazolam (Xanax) 1 mg QHS PRN PO SLEEP 10/30/18 23:15 11/01/18 21:19 Baclofen (Lioresal) 10 mg TID PO 10/31/18 09:00 11/02/18 09:01 Folic Acid (Folic Acid) 1 mg DAILY PO 10/31/18 09:00 11/02/18 09:01 Home Med (Med Rec Complete!) ASDIRECTED XX 10/30/18 22:00 10/30/18 22:00 DC Ibuprofen (Advil) 800 mg Q8H PRN PO PAIN 10/30/18 23:15 11/01/18 14:50 Lorazepam (Ativan) 0.5 mg Q6HP PRN PO ANXIETY 10/31/18 17:00 Lorazepam (Ativan) 1 mg STAT STAT PO 10/31/18 16:54 10/31/18 16:58 DC 10/31/18 17:06 Magnesium Hydroxide (Milk Of Magnesia) 30 ml DAILYPRN PRN PO CONSTIPATION 10/30/18 23:15 Mycophenolate Mofetil (Cellcept) 1,000 mg TID PO 10/30/18 21:00 11/02/18 09:01 Naltrexone HCl (Revia) 25 mg BID PO 10/30/18 21:00 11/02/18 09:01 Nicotine (Nicoderm Cq 21mg) 1 patch DAILY PRN TD As Needed For Craving 10/30/18 23:15 Cancel Omeprazole (PriLOSEC) 20 mg DAILY PO 10/31/18 09:00 11/02/18 09:01 Pyridostigmine [place] (Mestinon) 90 mg QID PO 10/30/18 21:00 11/02/18 09:01 Quetiapine Fumarate (SEROquel) 75 mg QHS PO 10/31/18 21:00 11/01/18 20:39 Ropinirole HCl (Requip) 0.25 mg QAM PO 10/31/18 09:00 11/02/18 09:01 Ropinirole HCl (Requip) 2 mg QHS PO 10/30/18 21:00 10/31/18 17:13 DC 10/31/18 02:02 Ropinirole HCl (Requip) 2 mg QHS PO 10/31/18 21:00 11/01/18 20:46 Venlafaxine HCl (Effexor Xr) 150 mg DAILY PO 10/31/18 09:00 10/31/18 16:52 DC 10/31/18 08:59 Venlafaxine HCl (Effexor Xr) 225 mg DAILY PO 11/01/18 09:00 11/02/18 09:01 Allergies Coded Allergies: amitriptyline (Verified Allergy, Severe, SWELLING, 07/12/18) Grass (Verified Allergy, Mild, ITCHY EYES,NOSE, 12/17/17) TREES (Verified Allergy, Mild, ITCHY EYES,NOSE, 12/17/17) TAPE (Verified Allergy, Unknown, RASH/BLISTER, 07/12/18) bupropion (Verified Allergy, Unknown, ESOPHAGEAL SPASMS, 07/12/18) metaxalone (Verified Allergy, Unknown, itching, 07/12/18) minocycline (Verified Allergy, Unknown, 07/12/18) mold (Verified Allergy, Unknown, 07/12/18) pregabalin (Verified Allergy, Unknown, EDEMA, 07/12/18) propranolol (Verified Allergy, Unknown, 07/12/18) tizanidine (Verified Allergy, Unknown, ITCHING, 07/12/18) trazodone (Verified Allergy, Unknown, EDEMA, 07/12/18) valproic acid (Verified Allergy, Unknown, DOES NOT METABOLIZE, 07/12/18) banana (Verified Adverse Reaction, Unknown, VOMITING, 07/12/18) benztropine (Verified Adverse Reaction, Unknown, BLURRED VISION, 08/31/18) clindamycin (Verified Adverse Reaction, Unknown, HEART BURN, 07/12/18) cyclobenzaprine (Verified Adverse Reaction, Unknown, IRRITABILITY, 07/12/18) gabapentin (Verified Adverse Reaction, Unknown, extreme weakness, 08/31/18) sulfamethoxazole (Verified Adverse Reaction, Unknown, DIARRHEA, 07/12/18) trimethoprim (Verified Adverse Reaction, Unknown, DIARRHEA, 07/12/18) vilazodone (Verified Adverse Reaction, Unknown, MOOD CHANGES, 08/31/18) MANJULA ALBRIGHT DO Nov 02, 2018 11:21
[2018-11-02] MEDS: IBUPROFEN 800 MG TAB PO PRN ×2 (12:49→20:53)
[2018-11-02] MEDS: ACETAMINOPHEN TAB 650MG DOSE (2X325MG) PO PRN (15:15)
[2018-11-02 17:46] VITALS: BP 161/89
[2018-11-02] MEDS: LORazepam 0.5 MG TAB PO PRN (17:48)
[2018-11-02 18:00] VITALS: BP 161/89
[2018-11-02] MEDS: rOPINIRole 2MG TAB PO SCH (20:41)
[2018-11-02] MEDS: PILL CUTTER 1 EACH XX PRN (20:41)
[2018-11-02] MEDS: QUEtiapine FUMARATE 25 MG TAB PO SCH (20:44)
[2018-11-02] MEDS: ALPRAZolam 0.5 MG TAB PO PRN (20:45)
[2018-11-03 06:46] VITALS: BP 140/83
[2018-11-03] MEDS: rOPINIRole 0.25 MG TAB(REQUIP) PO SCH (08:30)
[2018-11-03] MEDS: OMEPRAZOLE 20 MG CAP PO SCH (08:30)
[2018-11-03] MEDS: NALTREXONE 50 MG TAB PO SCH ×2 (08:31→20:38)
[2018-11-03] MEDS: MYCOPHENOLATE MOFETIL 250 MG CAP (J7517) PO SCH ×3 (08:31→20:43)
[2018-11-03] MEDS: ACYCLOVIR 200 MG CAPSULE PO SCH ×2 (08:31→20:41)
[2018-11-03] MEDS: BACLOFEN 10 MG TAB PO SCH ×3 (08:31→20:37)
[2018-11-03] MEDS: VENLAFAXINE **XR** 75MG CAPSULE PO SCH (08:31)
[2018-11-03] MEDS: FOLIC ACID 1 MG TAB PO SCH (08:31)
[2018-11-03] MEDS: PYRIDOSTIGMINE 60 MG TAB PO SCH ×4 (08:31→20:41)
[2018-11-03] MEDS: LORazepam 0.5 MG TAB PO PRN ×2 (08:32→15:24)
--- NOTE | 2018-11-03 11:53 | MHIPNPDOC ---
[facility] [place] Progress Note Progress Note Date of Service: 11/03/2018 History of Present Illness The patient a 38-year-old woman with a likely history of borderline personality disorder and depression presents with suicidality. She has multiple conflicting, controlled prescriptions that are likely unhelpful for her as recent studies have indicated borderline personality disorder decompensates in the context of benzodiazepine use. The patient has made various self-harm statements, but all have appeared very vain and primarily manipulative and behavioral. Interval History The patient is met with today. She describes feeling more depressed and hopelessness has recurred. She describes having some triggering events in two groups that she had gone to, where people had mentioned subjects as she finds typically difficult to tolerate. She describes feeling more hopeless, ruminating on past, anxieties and having difficulty motivating herself, staying in her bed for a fair portion of the day. Staff have noted no major behavioral issues today, however, last night she notably probably scratched herself with a staple she had found. She describes that she still has suicidal thoughts and that they're more intense. She describes doing fairly well on clozapine in the past, but noted that the weight gain was particularly bad and that she had difficulty tolerating that. Discussed with patient the risks and benefits of clozapine. Review Of Systems Denies any side effects from her Seroquel or venlafaxine such as rapid heart rate, chest pain, tremors, GI upset or headache. Psychotherapy None on this visit. Vital Signs Reviewed. Mental Status Examination General: Well dressed with good hygiene Speech: Spontaneous and fluid Thought processes: Linear and logical MSK: Smooth and coordinated gait, no signs of tremors or involuntary orofacial movements Thought content: Hopeless and pessimistic Abstract reasoning, and computation: Intact Description of associations: Intact Description of abnormal or psychotic thoughts: Admits to suicidal thoughts with an intention to . Denies homicidal ideation. Denies auditory or visual hallucination. Does not appear to be responding to internal stimuli. Judgment: Limited Insight: Limited Orientation: Alert and orientated 3 Cognition: Grossly normal Recent and remote memory: Intact Attention span and concentration: Intact Fund of knowledge: Adequate Mood: "okay" Affect: Dysthymic with a constricted range. Diagnoses Unspecified depressive disorder. Rule out MDD versus substance induced. Borderline personality disorder. Assessment and Plan The patient has made fair progress with the increased amount of venlafaxine and will continue 225 mg daily as she's tolerating it well. The Seroquel appears to help with sleep, but is not likely stabilizing her mood. She had done very well with Clozaril by her report and it appears she was prescribed up to 100 mg. She describes the weight gain is a problem, however, after discussing the risks, benefits and potential side effects as well as options to treat the weight gain related to neuroleptics with melatonin, the patient was open to trying Clozaril again. We'll start 25 mg tonight, discontinue Seroquel with CBC to be ordered for baseline labs. We'll attempt to discuss with outpatient provider about options to treat patient's potential weight gain as clozapine appear to keep the patient out of the hospital for quite some time. Disposition Patient need a further inpatient admission in order to treat her depression and to stabilize and remove her suicidal thoughts that currently pose a risk to her safety. Time Spent 15 minutes [id number]. Thursday Vital Signs Vital Signs Date Time Temp Pulse Resp B/P (MAP) Pulse Ox O2 Delivery O2 Flow Rate FiO2 11/03/18 06:46 98.7 66 18 140/83 (102) 10/31/18 12:20 100 10/31/18 12:20 Room Air Current Medications Current Medications Medications (Trade) Dose Ordered Sig/Ben Route PRN Reason Start Time Stop Time Status Last Admin Dose Admin Acetaminophen (Tylenol Tab) 650 mg Q6HP PRN PO HEADACHE or DISCOMFORT 10/30/18 23:15 11/02/18 15:15 Acyclovir (Zovirax) 400 mg BID PO 10/30/18 21:00 11/03/18 08:31 Al Hydrox/Mg Hydrox/Simethicone (Mylanta) 30 ml Q4HP PRN PO HEARTBURN/INDIGESTION 10/30/18 23:15 Alprazolam (Xanax) 1 mg QHS PRN PO SLEEP 10/30/18 23:15 11/02/18 20:45 Baclofen (Lioresal) 10 mg TID PO 10/31/18 09:00 11/03/18 08:31 Folic Acid (Folic Acid) 1 mg DAILY PO 10/31/18 09:00 11/03/18 08:31 Home Med (Med Rec Complete!) ASDIRECTED XX 10/30/18 22:00 10/30/18 22:00 DC Ibuprofen (Advil) 800 mg Q8H PRN PO PAIN 10/30/18 23:15 11/02/18 20:53 Lorazepam (Ativan) 0.5 mg Q6HP PRN PO ANXIETY 10/31/18 17:00 11/03/18 08:32 Lorazepam (Ativan) 1 mg STAT STAT PO 10/31/18 16:54 10/31/18 16:58 DC 10/31/18 17:06 Magnesium Hydroxide (Milk Of Magnesia) 30 ml DAILYPRN PRN PO CONSTIPATION 10/30/18 23:15 Mycophenolate Mofetil (Cellcept) 1,000 mg TID PO 10/30/18 21:00 11/03/18 08:31 Naltrexone HCl (Revia) 25 mg BID PO 10/30/18 21:00 11/03/18 08:31 Nicotine (Nicoderm Cq 21mg) 1 patch DAILY PRN TD As Needed For Craving 10/30/18 23:15 Cancel Omeprazole (PriLOSEC) 20 mg DAILY PO 10/31/18 09:00 11/03/18 08:30 Pyridostigmine [place] (Mestinon) 90 mg QID PO 10/30/18 21:00 11/03/18 08:31 Quetiapine Fumarate (SEROquel) 75 mg QHS PO 10/31/18 21:00 11/02/18 20:44 Ropinirole HCl (Requip) 0.25 mg QAM PO 10/31/18 09:00 11/03/18 08:30 Ropinirole HCl (Requip) 2 mg QHS PO 10/30/18 21:00 10/31/18 17:13 DC 10/31/18 02:02 Ropinirole HCl (Requip) 2 mg QHS PO 10/31/18 21:00 11/02/18 20:41 Venlafaxine HCl (Effexor Xr) 150 mg DAILY PO 10/31/18 09:00 10/31/18 16:52 DC 10/31/18 08:59 Venlafaxine HCl (Effexor Xr) 225 mg DAILY PO 11/01/18 09:00 11/03/18 08:31 Allergies Coded Allergies: amitriptyline (Verified Allergy, Severe, SWELLING, 4/22/19) Grass (Verified Allergy, Mild, ITCHY EYES,NOSE, 12/17/17) TREES (Verified Allergy, Mild, ITCHY EYES,NOSE, 12/17/17) TAPE (Verified Allergy, Unknown, RASH/BLISTER, 07/12/18) bupropion (Verified Allergy, Unknown, ESOPHAGEAL SPASMS, 07/12/18) metaxalone (Verified Allergy, Unknown, itching, 07/12/18) minocycline (Verified Allergy, Unknown, 07/12/18) mold (Verified Allergy, Unknown, 07/12/18) pregabalin (Verified Allergy, Unknown, EDEMA, 07/12/18) propranolol (Verified Allergy, Unknown, 07/12/18) tizanidine (Verified Allergy, Unknown, ITCHING, 07/12/18) trazodone (Verified Allergy, Unknown, EDEMA, 07/12/18) valproic acid (Verified Allergy, Unknown, DOES NOT METABOLIZE, 07/12/18) banana (Verified Adverse Reaction, Unknown, VOMITING, 07/12/18) benztropine (Verified Adverse Reaction, Unknown, BLURRED VISION, 08/31/18) clindamycin (Verified Adverse Reaction, Unknown, HEART BURN, 07/12/18) cyclobenzaprine (Verified Adverse Reaction, Unknown, IRRITABILITY, 07/12/18) gabapentin (Verified Adverse Reaction, Unknown, extreme weakness, 08/31/18) sulfamethoxazole (Verified Adverse Reaction, Unknown, DIARRHEA, 07/12/18) trimethoprim (Verified Adverse Reaction, Unknown, DIARRHEA, 07/12/18) vilazodone (Verified Adverse Reaction, Unknown, MOOD CHANGES, 08/31/18) MANJULA ALBRIGHT DO Nov 03, 2018 11:53
[2018-11-03 17:50] LABS: BASO % 0.4 % (0.0-1.0); EOS # 0.2 10^3/uL (0.0-0.50); EOS % 1.9 % (0.0-3.0); HEMATOCRIT 39.7 % (36.0-47.0); HEMOGLOBIN 12.9 g/dl (12.0-15.5); LYMPH # 1.9 10^3/uL (1.5-4.5); LYMPH % 23.7 % (24.0-44.0); MEAN CORPUSCULAR HEMOGLOBIN 29.5 pg (27.0-33.0); MEAN CORPUSCULAR HGB CONC 32.5 g/dl (32.0-36.5); MEAN CORPUSCULAR VOLUME 90.6 fl (80.0-96.0); MONO # 0.6 10^3/uL (0.0-0.8); MONO % 7.7 % (0.0-5.0); NEUTROPHILS # 5.3 10^3/uL (1.8-7.7); NEUTROPHILS % 65.9 % (36.0-66.0); PLATELET COUNT, AUTOMATED 264 10^3/uL (150-450); RED BLOOD COUNT 4.38 10^6/uL (4.00-5.40); WHITE BLOOD COUNT 8.1 10^3/uL (4.0-10.0)
[2018-11-03 18:00] VITALS: BP 160/88
[2018-11-03] MEDS: rOPINIRole 2MG TAB PO SCH (20:39)
[2018-11-03] MEDS ORDERED: cloZAPine 25 MG TAB (S0136) PO SCH (21:00)
[2018-11-04] MEDS: OMEPRAZOLE 20 MG CAP PO SCH (09:28)
[2018-11-04] MEDS: MYCOPHENOLATE MOFETIL 250 MG CAP (J7517) PO SCH ×3 (09:28→20:02)
[2018-11-04] MEDS: NALTREXONE 50 MG TAB PO SCH ×2 (09:30→20:06)
[2018-11-04] MEDS: PYRIDOSTIGMINE 60 MG TAB PO SCH ×4 (09:30→20:05)
[2018-11-04] MEDS: FOLIC ACID 1 MG TAB PO SCH (09:31)
[2018-11-04] MEDS: BACLOFEN 10 MG TAB PO SCH ×3 (09:31→20:03)
[2018-11-04] MEDS: rOPINIRole 0.25 MG TAB(REQUIP) PO SCH (09:32)
[2018-11-04] MEDS: VENLAFAXINE **XR** 75MG CAPSULE PO SCH (09:32)
[2018-11-04] MEDS: ACYCLOVIR 200 MG CAPSULE PO SCH ×2 (09:32→20:05)
[2018-11-04] MEDS ORDERED: BISACODYL 5 MG TAB PO ONE (11:45)
[2018-11-04 18:00] VITALS: BP 147/85
[2018-11-04] MEDS: ALPRAZolam 0.5 MG TAB PO PRN (20:04)
[2018-11-04] MEDS: rOPINIRole 2MG TAB PO SCH (20:07)
[2018-11-04] MEDS: cloZAPine 25 MG TAB (S0136) PO SCH (20:12)
--- NOTE | 2018-11-04 20:52 | MHIPNPDOC ---
[facility] Progress Note Progress Note Date of Service: 11/04/2018 History of Present Illness The patient a 38-year-old woman with a likely history of borderline personality disorder and depression presents with suicidality. She has multiple conflicting, controlled prescriptions that are likely unhelpful for her as recent studies have indicated borderline personality disorder decompensates in the context of benzodiazepine use. The patient has made various self-harm statements, but all have appeared very vain and primarily manipulative and behavioral. Interval History The patient's met with today. She describes that she hasn't noticed strong effect from the clozapine, but is surprising now she is not experiencing any increased appetite, which is generally a report problem with clozapine. She requests to have her clozapine increased to 50 as she notes that that dose she did quite well. The patient's CBC is within normal limits and ANC appears normal. The patient has been less behavioral today and generally much less dependent, which is fairly helpful for the patient's treatment. She has not made any self-harm attempts and is generally able to attend to some need. She attends groups intermittently, but does spend a fair amount of time isolated to her room. Review Of Systems Reports continued hopelessness, depressed mood, fatigue, loss of interest, and suicidal thoughts. Denies any change in bowel habits, tremors, fevers or other potential side effects from clozapine. Psychotherapy None on this visit. Vital Signs Reviewed. Mental Status Examination General: Well dressed with good hygiene Speech: Spontaneous and fluid Thought processes: Linear and logical MSK: Smooth and coordinated gait, no signs of tremors or involuntary orofacial movements Thought content: Hopeless and pessimistic Abstract reasoning, and computation: Intact Description of associations: Intact Description of abnormal or psychotic thoughts: Admits to suicidal thoughts with an intention to . Denies homicidal ideation. Denies auditory or visual hallucination. Does not appear to be responding to internal stimuli. Judgment: Limited Insight: Limited Orientation: Alert and orientated 3 Cognition: Grossly normal Recent and remote memory: Intact Attention span and concentration: Intact Fund of knowledge: Adequate Mood: "okay" Affect: Dysthymic with a constricted range. Diagnoses Unspecified depressive disorder. Rule out MDD versus substance induced. Borderline personality disorder. Assessment and Plan The patient appears to be making some progress. We'll increase clozapine to 50 mg daily, as she has tolerated before with close observation. Continuing other home medications, as clozapine appeared to perform best as clozapine is able to be more effectively used and tapered to higher dose could possibly get patient off of Xanax and other medications that are less helpful for her condition. Disposition Patient need a further inpatient admission in order to treat her depression and to stabilize and remove her suicidal thoughts that currently pose a risk to her safety. Time Spent 15 minutes [id number] Vital Signs Vital Signs Date Time Temp Pulse Resp B/P (MAP) Pulse Ox O2 Delivery O2 Flow Rate FiO2 11/04/18 18:00 98.8 67 16 147/85 (105) 10/31/18 12:20 100 10/31/18 12:20 Room Air Current Medications Current Medications Medications (Trade) Dose Ordered Sig/Ben Route PRN Reason Start Time Stop Time Status Last Admin Dose Admin Acetaminophen (Tylenol Tab) 650 mg Q6HP PRN PO HEADACHE or DISCOMFORT 10/30/18 23:15 11/02/18 15:15 Acyclovir (Zovirax) 400 mg BID PO 10/30/18 21:00 11/04/18 20:05 Al Hydrox/Mg Hydrox/Simethicone (Mylanta) 30 ml Q4HP PRN PO HEARTBURN/INDIGESTION 10/30/18 23:15 Alprazolam (Xanax) 1 mg QHS PRN PO SLEEP 10/30/18 23:15 11/04/18 20:04 Baclofen (Lioresal) 10 mg TID PO 10/31/18 09:00 11/04/18 20:03 Clozapine (Clozaril) 25 mg QHS PO 11/03/18 21:00 11/04/18 12:52 DC 11/03/18 20:37 Clozapine (Clozaril) 50 mg QHS PO 11/04/18 21:00 11/04/18 20:12 Folic Acid (Folic Acid) 1 mg DAILY PO 10/31/18 09:00 11/04/18 09:31 Home Med (Med Rec Complete!) ASDIRECTED XX 10/30/18 22:00 10/30/18 22:00 DC Ibuprofen (Advil) 800 mg Q8H PRN PO PAIN 10/30/18 23:15 11/02/18 20:53 Lorazepam (Ativan) 0.5 mg Q6HP PRN PO ANXIETY 10/31/18 17:00 11/03/18 15:24 Lorazepam (Ativan) 1 mg STAT STAT PO 10/31/18 16:54 10/31/18 16:58 DC 10/31/18 17:06 Magnesium Hydroxide (Milk Of Magnesia) 30 ml DAILYPRN PRN PO CONSTIPATION 10/30/18 23:15 Mycophenolate Mofetil (Cellcept) 1,000 mg TID PO 10/30/18 21:00 11/04/18 20:02 Naltrexone HCl (Revia) 25 mg BID PO 10/30/18 21:00 11/04/18 20:06 Nicotine (Nicoderm Cq 21mg) 1 patch DAILY PRN TD As Needed For Craving 10/30/18 23:15 Cancel Omeprazole (PriLOSEC) 20 mg DAILY PO 10/31/18 09:00 11/04/18 09:28 Pyridostigmine [place] (Mestinon) 90 mg QID PO 10/30/18 21:00 11/04/18 20:05 Quetiapine Fumarate (SEROquel) 75 mg QHS PO 10/31/18 21:00 11/03/18 16:50 DC 11/02/18 20:44 Ropinirole HCl (Requip) 0.25 mg QAM PO 10/31/18 09:00 11/04/18 09:32 Ropinirole HCl (Requip) 2 mg QHS PO 10/30/18 21:00 10/31/18 17:13 DC 10/31/18 02:02 Ropinirole HCl (Requip) 2 mg QHS PO 10/31/18 21:00 11/04/18 20:07 Venlafaxine HCl (Effexor Xr) 150 mg DAILY PO 10/31/18 09:00 10/31/18 16:52 DC 10/31/18 08:59 Venlafaxine HCl (Effexor Xr) 225 mg DAILY PO 11/01/18 09:00 11/04/18 09:32 Allergies Coded Allergies: amitriptyline (Verified Allergy, Severe, SWELLING, 07/12/18) Grass (Verified Allergy, Mild, ITCHY EYES,NOSE, 12/17/17) TREES (Verified Allergy, Mild, ITCHY EYES,NOSE, 12/17/17) TAPE (Verified Allergy, Unknown, RASH/BLISTER, 07/12/18) bupropion (Verified Allergy, Unknown, ESOPHAGEAL SPASMS, 07/12/18) metaxalone (Verified Allergy, Unknown, itching, 07/12/18) minocycline (Verified Allergy, Unknown, 07/12/18) mold (Verified Allergy, Unknown, 07/12/18) pregabalin (Verified Allergy, Unknown, EDEMA, 07/12/18) propranolol (Verified Allergy, Unknown, 07/12/18) tizanidine (Verified Allergy, Unknown, ITCHING, 07/12/18) trazodone (Verified Allergy, Unknown, EDEMA, 07/12/18) valproic acid (Verified Allergy, Unknown, DOES NOT METABOLIZE, 07/12/18) banana (Verified Adverse Reaction, Unknown, VOMITING, 07/12/18) benztropine (Verified Adverse Reaction, Unknown, BLURRED VISION, 08/31/18) clindamycin (Verified Adverse Reaction, Unknown, HEART BURN, 07/12/18) cyclobenzaprine (Verified Adverse Reaction, Unknown, IRRITABILITY, 07/12/18) gabapentin (Verified Adverse Reaction, Unknown, extreme weakness, 08/31/18) sulfamethoxazole (Verified Adverse Reaction, Unknown, DIARRHEA, 07/12/18) trimethoprim (Verified Adverse Reaction, Unknown, DIARRHEA, 07/12/18) vilazodone (Verified Adverse Reaction, Unknown, MOOD CHANGES, 08/31/18) MANJULA ALBRIGHT DO Nov 04, 2018 20:52
[2018-11-05 06:07] VITALS: BP 142/75
[2018-11-05] MEDS: OMEPRAZOLE 20 MG CAP PO SCH (08:01)
[2018-11-05] MEDS: VENLAFAXINE **XR** 75MG CAPSULE PO SCH (08:01)
[2018-11-05] MEDS: MYCOPHENOLATE MOFETIL 250 MG CAP (J7517) PO SCH ×3 (08:01→20:17)
[2018-11-05] MEDS: rOPINIRole 0.25 MG TAB(REQUIP) PO SCH (08:01)
[2018-11-05] MEDS: PYRIDOSTIGMINE 60 MG TAB PO SCH ×4 (08:02→20:17)
[2018-11-05] MEDS: FOLIC ACID 1 MG TAB PO SCH (08:02)
[2018-11-05] MEDS: IBUPROFEN 800 MG TAB PO PRN (08:02)
[2018-11-05] MEDS: NALTREXONE 50 MG TAB PO SCH ×2 (08:02→20:16)
[2018-11-05] MEDS: BACLOFEN 10 MG TAB PO SCH ×3 (08:02→20:16)
[2018-11-05] MEDS: ACYCLOVIR 200 MG CAPSULE PO SCH ×2 (08:02→20:16)
--- NOTE | 2018-11-05 14:18 | MHIPNPDOC ---
[facility] Progress Note Progress Note Date of Service: 11/05/2018 History of Present Illness The patient a 38-year-old woman with a likely history of borderline personality disorder and depression presents with suicidality. She has multiple conflicting, controlled prescriptions that are likely unhelpful for her as recent studies have indicated borderline personality disorder decompensates in the context of benzodiazepine use. The patient has made various self-harm statements, but all have appeared very vain and primarily manipulative and behavioral. Interval History The patient is met with today. She describes her depression is lifting and she feels as though she is making some headway, first in her treatment. She descri bes improving low mood, loss of interest and increased activities. She has been to groups more frequently today and has had no behavioral problems as noted by staff. She does ask whether she can be changed from baclofen to Zanaflex due to muscle spasms and describes that she has done this as an outpatient and it has done well. She does report odd episodes of "blanking out" on the unit and that had been present prior to her admission that might be consistent with seizures. The patient describes that she had had an episode in the lounge where she had felt mildly dissociated from her current surroundings. Review Of Systems The patient denies any side effects from clozapine such as constipation, tremors or other discomfort. She reports improving self-harm thoughts and a better ability to control her aggression. The patient denies any appetite changes that she has reported in the past with clozapine. Psychotherapy None on this visit. Vital Signs Reviewed. Mental Status Examination General: Well dressed with good hygiene Speech: Spontaneous and fluid Thought processes: Linear and logical MSK: Smooth and coordinated gait, no signs of tremors or involuntary orofacial movements Thought content: Hopeless and pessimistic Abstract reasoning, and computation: Intact Description of associations: Intact Description of abnormal or psychotic thoughts: Denies suicidal or homicidal ideation. Denies auditory visualization. Does not appear to be responding to internal stimuli. Judgment: Improving Insight: Improving Orientation: Alert and orientated 3 Cognition: Grossly normal Recent and remote memory: Intact Attention span and concentration: Intact Fund of knowledge: Adequate Mood: "okay" Affect: Less dysthymic Diagnoses Unspecified depressive disorder. Rule out MDD versus substance induced. Borderline personality disorder. Assessment and Plan The patient appears to be making good progress on 50 mg of clozapine, recommend to continue. We'll order an EEG to be done in order to ascertain whether her seizures or disassociation, which could be a complex issue to resolve. Discussed with patient that changing the baclofen in the concerning presence of possible seizures would be inadvisable. And thus, if the patient elects, lidocaine can be used. However, she notes that next to the reported spasm area is a non-healing burn. The patient appears to be doing well with an unlikely combination of medications. However, she has experienced none of her reported hyperphagia that had been a problem in the past. Disposition Patient need a further inpatient admission in order to treat her depression. Time Spent 15 minutes [id number] Thursday Vital Signs Vital Signs Date Time Temp Pulse Resp B/P (MAP) Pulse Ox O2 Delivery O2 Flow Rate FiO2 11/05/18 06:07 98.5 81 16 142/75 (97) 10/31/18 12:20 100 10/31/18 12:20 Room Air Current Medications Current Medications Medications (Trade) Dose Ordered Sig/Ben Route PRN Reason Start Time Stop Time Status Last Admin Dose Admin Acetaminophen (Tylenol Tab) 650 mg Q6HP PRN PO HEADACHE or DISCOMFORT 10/30/18 23:15 11/02/18 15:15 Acyclovir (Zovirax) 400 mg BID PO 10/30/18 21:00 11/05/18 08:02 Al Hydrox/Mg Hydrox/Simethicone (Mylanta) 30 ml Q4HP PRN PO HEARTBURN/INDIGESTION 10/30/18 23:15 Alprazolam (Xanax) 1 mg QHS PRN PO SLEEP 10/30/18 23:15 11/04/18 20:04 Baclofen (Lioresal) 10 mg TID PO 10/31/18 09:00 11/05/18 08:02 Clozapine (Clozaril) 25 mg QHS PO 11/03/18 21:00 11/04/18 12:52 DC 11/03/18 20:37 Clozapine (Clozaril) 50 mg QHS PO 11/04/18 21:00 11/04/18 20:12 Folic Acid (Folic Acid) 1 mg DAILY PO 10/31/18 09:00 11/05/18 08:02 Home Med (Med Rec Complete!) ASDIRECTED XX 10/30/18 22:00 10/30/18 22:00 DC Ibuprofen (Advil) 800 mg Q8H PRN PO PAIN 10/30/18 23:15 11/05/18 08:02 Lorazepam (Ativan) 0.5 mg Q6HP PRN PO ANXIETY 10/31/18 17:00 11/03/18 15:24 Lorazepam (Ativan) 1 mg STAT STAT PO 10/31/18 16:54 10/31/18 16:58 DC 10/31/18 17:06 Magnesium Hydroxide (Milk Of Magnesia) 30 ml DAILYPRN PRN PO CONSTIPATION 10/30/18 23:15 Mycophenolate Mofetil (Cellcept) 1,000 mg TID PO 10/30/18 21:00 11/05/18 08:01 Naltrexone HCl (Revia) 25 mg BID PO 10/30/18 21:00 11/05/18 08:02 Nicotine (Nicoderm Cq 21mg) 1 patch DAILY PRN TD As Needed For Craving 10/30/18 23:15 Cancel Omeprazole (PriLOSEC) 20 mg DAILY PO 10/31/18 09:00 11/05/18 08:01 Pyridostigmine [place] (Mestinon) 90 mg QID PO 10/30/18 21:00 11/05/18 12:40 Quetiapine Fumarate (SEROquel) 75 mg QHS PO 10/31/18 21:00 11/03/18 16:50 DC 11/02/18 20:44 Ropinirole HCl (Requip) 0.25 mg QAM PO 10/31/18 09:00 11/05/18 08:01 Ropinirole HCl (Requip) 2 mg QHS PO 10/30/18 21:00 10/31/18 17:13 DC 10/31/18 02:02 Ropinirole HCl (Requip) 2 mg QHS PO 10/31/18 21:00 11/04/18 20:07 Venlafaxine HCl (Effexor Xr) 150 mg DAILY PO 10/31/18 09:00 10/31/18 16:52 DC 10/31/18 08:59 Venlafaxine HCl (Effexor Xr) 225 mg DAILY PO 11/01/18 09:00 11/05/18 08:01 Allergies Coded Allergies: amitriptyline (Verified Allergy, Severe, SWELLING, 07/12/18) Grass (Verified Allergy, Mild, ITCHY EYES,NOSE, 12/17/17) TREES (Verified Allergy, Mild, ITCHY EYES,NOSE, 12/17/17) TAPE (Verified Allergy, Unknown, RASH/BLISTER, 07/12/18) bupropion (Verified Allergy, Unknown, ESOPHAGEAL SPASMS, 07/12/18) metaxalone (Verified Allergy, Unknown, itching, 07/12/18) minocycline (Verified Allergy, Unknown, 07/12/18) mold (Verified Allergy, Unknown, 07/12/18) pregabalin (Verified Allergy, Unknown, EDEMA, 07/12/18) propranolol (Verified Allergy, Unknown, 07/12/18) tizanidine (Verified Allergy, Unknown, ITCHING, 07/12/18) trazodone (Verified Allergy, Unknown, EDEMA, 07/12/18) valproic acid (Verified Allergy, Unknown, DOES NOT METABOLIZE, 07/12/18) banana (Verified Adverse Reaction, Unknown, VOMITING, 07/12/18) benztropine (Verified Adverse Reaction, Unknown, BLURRED VISION, 08/31/18) clindamycin (Verified Adverse Reaction, Unknown, HEART BURN, 07/12/18) cyclobenzaprine (Verified Adverse Reaction, Unknown, IRRITABILITY, 07/12/18) gabapentin (Verified Adverse Reaction, Unknown, extreme weakness, 08/31/18) sulfamethoxazole (Verified Adverse Reaction, Unknown, DIARRHEA, 07/12/18) trimethoprim (Verified Adverse Reaction, Unknown, DIARRHEA, 07/12/18) vilazodone (Verified Adverse Reaction, Unknown, MOOD CHANGES, 08/31/18) MANJULA ALBRIGHT DO Nov 05, 2018 14:18
[2018-11-05] MEDS: LIDOCAINE 5% (LIDODERM) PATCH TD PRN (18:24)
[2018-11-05] MEDS: ALPRAZolam 0.5 MG TAB PO PRN (20:16)
[2018-11-05] MEDS: rOPINIRole 2MG TAB PO SCH (20:16)
[2018-11-05] MEDS: cloZAPine 25 MG TAB (S0136) PO SCH (20:16)
[2018-11-05] MEDS: PILL CUTTER 1 EACH XX PRN (20:19)
[2018-11-06 06:50] VITALS: BP 126/86
[2018-11-06] MEDS: NALTREXONE 50 MG TAB PO SCH ×2 (08:48→20:25)
[2018-11-06] MEDS: ACYCLOVIR 200 MG CAPSULE PO SCH ×2 (08:48→20:25)
[2018-11-06] MEDS: OMEPRAZOLE 20 MG CAP PO SCH (08:48)
[2018-11-06] MEDS: BACLOFEN 10 MG TAB PO SCH ×3 (08:48→20:25)
[2018-11-06] MEDS: VENLAFAXINE **XR** 75MG CAPSULE PO SCH (08:49)
[2018-11-06] MEDS: PYRIDOSTIGMINE 60 MG TAB PO SCH ×4 (08:49→20:24)
[2018-11-06] MEDS: FOLIC ACID 1 MG TAB PO SCH (08:49)
[2018-11-06] MEDS: rOPINIRole 0.25 MG TAB(REQUIP) PO SCH (08:49)
[2018-11-06] MEDS: MYCOPHENOLATE MOFETIL 250 MG CAP (J7517) PO SCH ×3 (08:49→20:27)
[2018-11-06] MEDS: IBUPROFEN 800 MG TAB PO PRN ×2 (08:50→17:17)
[2018-11-06] MEDS: LIDOCAINE 5% (LIDODERM) PATCH TD PRN (08:54)
[2018-11-06] MEDS: ACETAMINOPHEN TAB 650MG DOSE (2X325MG) PO PRN ×2 (11:56→20:28)
[2018-11-06 18:01] VITALS: BP 135/88
[2018-11-06] MEDS: cloZAPine 25 MG TAB (S0136) PO SCH (20:26)
[2018-11-06] MEDS: ALPRAZolam 0.5 MG TAB PO PRN (20:26)
[2018-11-06] MEDS: rOPINIRole 2MG TAB PO SCH (20:26)
[2018-11-06] MEDS: PILL CUTTER 1 EACH XX PRN (20:28)
[2018-11-07 06:52] VITALS: BP 132/82
[2018-11-07] MEDS: IBUPROFEN 800 MG TAB PO PRN (08:12)
[2018-11-07] MEDS: rOPINIRole 0.25 MG TAB(REQUIP) PO SCH (08:13)
[2018-11-07] MEDS: PYRIDOSTIGMINE 60 MG TAB PO SCH ×4 (08:13→20:59)
[2018-11-07] MEDS: FOLIC ACID 1 MG TAB PO SCH (08:13)
[2018-11-07] MEDS: OMEPRAZOLE 20 MG CAP PO SCH (08:13)
[2018-11-07] MEDS: BACLOFEN 10 MG TAB PO SCH ×3 (08:13→20:59)
[2018-11-07] MEDS: ACYCLOVIR 200 MG CAPSULE PO SCH ×2 (08:13→20:58)
[2018-11-07] MEDS: VENLAFAXINE **XR** 75MG CAPSULE PO SCH (08:13)
[2018-11-07] MEDS: NALTREXONE 50 MG TAB PO SCH ×2 (08:13→21:00)
[2018-11-07] MEDS: MYCOPHENOLATE MOFETIL 250 MG CAP (J7517) PO SCH ×3 (08:14→21:01)
[2018-11-07] MEDS: LIDOCAINE 5% (LIDODERM) PATCH TD PRN (08:33)
[2018-11-07 18:39] VITALS: BP 128/73
[2018-11-07] MEDS: rOPINIRole 2MG TAB PO SCH (20:58)
[2018-11-07] MEDS: cloZAPine 25 MG TAB (S0136) PO SCH (21:01)
[2018-11-07] MEDS: ALPRAZolam 0.5 MG TAB PO PRN (21:46)
[2018-11-08 06:36] VITALS: BP 138/79
[2018-11-08] MEDS: NALTREXONE 50 MG TAB PO SCH (08:31)
[2018-11-08] MEDS: LIDOCAINE 5% (LIDODERM) PATCH TD PRN (08:36)
[2018-11-08] MEDS: PILL CUTTER 1 EACH XX PRN ×3 (08:36→17:07)
[2018-11-08] MEDS: ACYCLOVIR 200 MG CAPSULE PO SCH ×2 (08:37→20:21)
[2018-11-08] MEDS: MYCOPHENOLATE MOFETIL 250 MG CAP (J7517) PO SCH ×3 (08:37→20:21)
[2018-11-08] MEDS: VENLAFAXINE **XR** 75MG CAPSULE PO SCH (08:37)
[2018-11-08] MEDS: FOLIC ACID 1 MG TAB PO SCH (08:38)
[2018-11-08] MEDS: rOPINIRole 0.25 MG TAB(REQUIP) PO SCH (08:38)
[2018-11-08] MEDS: PYRIDOSTIGMINE 60 MG TAB PO SCH ×4 (08:38→20:23)
[2018-11-08] MEDS: BACLOFEN 10 MG TAB PO SCH ×3 (08:38→20:22)
[2018-11-08] MEDS: OMEPRAZOLE 20 MG CAP PO SCH (08:38)
--- NOTE | 2018-11-08 09:47 | MHIPNPDOC ---
[facility] Progress Note Progress Note Date of Service: 11/08/2018 History of Present Illness The patient a 38-year-old woman with a likely history of borderline personality disorder and depression presents with suicidality. She has multiple conflicting, controlled prescriptions that are likely unhelpful for her as recent studies have indicated borderline personality disorder decompensates in the context of benzodiazepine use. The patient has made various self-harm statements, but all have appeared very vain and primarily manipulative and behavioral. Interval History The patient was met with today. She describes that she has had an increase in her depression, more hopelessness and suicidal thoughts re-emerging. She reports that she had had a "difficult weekend" where she has notably ruminated on the difficulties of her situation and had talked with her about the potential doing ECT as an outpatient. The patient reports doing well on the clozapine. She does report some constipation of which she requests Dulcolax for. She inquires whether her Xanax which she feels is unhelpful for her sleep could be changed to Ambien or another related medicine as she feels that it does not help her sleep overall. Staff have noted that she has had no major behavioral problems on the unit with no further episodes of self-harm with various objects and has engaging in groups well. Review Of Systems Denies any tremors or nausea or vomiting related to clozapine at this time. Psychotherapy None on this visit. Vital Signs Reviewed. Mental Status Examination General: Well dressed with good hygiene Speech: Spontaneous and fluid Thought processes: Linear and logical MSK: Smooth and coordinated gait, no signs of tremors or involuntary orofacial movements Thought content: Hopeless and pessimistic Abstract reasoning, and computation: Intact Description of associations: Intact Description of abnormal or psychotic thoughts: Admits to suicidal thoughts with a plan to "swallow magnets ." Denies homicidal ideation. Denies auditory or visual hallucinations. Does not appear to be responding to internal stimuli. Judgment: Poor Insight: Poor Orientation: Alert and orientated 3 Cognition: Grossly normal Recent and remote memory: Intact Attention span and concentration: Intact Fund of knowledge: Adequate Mood: "bad" Affect: Dysthymic with a constricted range. Diagnoses Unspecified depressive disorder. Rule out MDD versus substance induced. Borderline personality disorder. Cannabis use disorder, mild. Assessment and Plan The patient appears to make some progress on the clozapine, however, it is unclear as to why she has sudden decompensation, it could be from a variety of factors including relatively small insult as she does have a notable history of borderline personality disorder. She requested change in her sleeping medication and thus her Xanax will be changed to Ambien 5 mg nightly PRN. Her clozapine will be increased to 75 mg nightly. CBC drawn with normal A1c. Dulcolax PRN 100 mg daily will be started as well for constipation. EKG ordered as patient was having increased swelling that she feels is from her naltrexone. We will restart patient's home vitamin D5 K units per day. EKG determine if any Clozaril related cardiomyopathy and prompt referral to medicine if any concerning signs. Disposition Patient will need a further inpatient admission in order to treat her decompensation, suicidality and depression. Time Spent 15 minutes face to face. M Vital Signs Vital Signs Date Time Temp Pulse Resp B/P (MAP) Pulse Ox O2 Delivery O2 Flow Rate FiO2 11/08/18 06:36 98.6 98 14 138/79 (98) Current Medications Current Medications Medications (Trade) Dose Ordered Sig/Ben Route PRN Reason Start Time Stop Time Status Last Admin Dose Admin Acetaminophen (Tylenol Tab) 650 mg Q6HP PRN PO HEADACHE or DISCOMFORT 10/30/18 23:15 11/06/18 20:28 Acyclovir (Zovirax) 400 mg BID PO 10/30/18 21:00 11/08/18 08:37 Al Hydrox/Mg Hydrox/Simethicone (Mylanta) 30 ml Q4HP PRN PO HEARTBURN/INDIGESTION 10/30/18 23:15 Alprazolam (Xanax) 1 mg QHS PRN PO SLEEP 10/30/18 23:15 11/07/18 21:46 Baclofen (Lioresal) 10 mg TID PO 10/31/18 09:00 11/08/18 08:38 Clozapine (Clozaril) 25 mg QHS PO 11/03/18 21:00 11/04/18 12:52 DC 11/03/18 20:37 Clozapine (Clozaril) 50 mg QHS PO 11/04/18 21:00 11/07/18 21:01 Folic Acid (Folic Acid) 1 mg DAILY PO 10/31/18 09:00 11/08/18 08:38 Home Med (Med Rec Complete!) ASDIRECTED XX 10/30/18 22:00 10/30/18 22:00 DC Ibuprofen (Advil) 800 mg Q8H PRN PO PAIN 10/30/18 23:15 11/07/18 08:12 Lidocaine (Lidoderm Patch) 1 patch DAILYPRN PRN TD pain 11/05/18 17:30 11/08/18 08:36 Lorazepam (Ativan) 0.5 mg Q6HP PRN PO ANXIETY 10/31/18 17:00 11/03/18 15:24 Lorazepam (Ativan) 1 mg STAT STAT PO 10/31/18 16:54 10/31/18 16:58 DC 10/31/18 17:06 Magnesium Hydroxide (Milk Of Magnesia) 30 ml DAILYPRN PRN PO CONSTIPATION 10/30/18 23:15 11/07/18 12:04 Miscellaneous (Unresolved Clarification Entry) SEE LABEL COMMENTS DAILY XX 11/05/18 09:00 11/06/18 08:08 DC Miscellaneous (Unresolved Clarification Entry) SEE LABEL COMMENTS DAILY XX 11/06/18 09:00 11/06/18 13:02 DC Mycophenolate Mofetil (Cellcept) 1,000 mg TID PO 10/30/18 21:00 11/08/18 08:37 Naltrexone HCl (Revia) 25 mg BID PO 10/30/18 21:00 11/07/18 08:13 Nicotine (Nicoderm Cq 21mg) 1 patch DAILY PRN TD As Needed For Craving 10/30/18 23:15 Cancel Non-Formulary Medication ( See Comment Field Below ) REMOVE LIDODERM PATCH... DAILY@21 XX 11/05/18 21:00 11/07/18 21:06 Omeprazole (PriLOSEC) 20 mg DAILY PO 10/31/18 09:00 11/08/18 08:38 Pyridostigmine [place] (Mestinon) 90 mg QID PO 10/30/18 21:00 11/08/18 08:38 Quetiapine Fumarate (SEROquel) 75 mg QHS PO 10/31/18 21:00 11/03/18 16:50 DC 11/02/18 20:44 Ropinirole HCl (Requip) 0.25 mg QAM PO 10/31/18 09:00 11/08/18 08:38 Ropinirole HCl (Requip) 2 mg QHS PO 10/30/18 21:00 10/31/18 17:13 DC 10/31/18 02:02 Ropinirole HCl (Requip) 2 mg QHS PO 10/31/18 21:00 11/07/18 20:58 Venlafaxine HCl (Effexor Xr) 150 mg DAILY PO 10/31/18 09:00 10/31/18 16:52 DC 10/31/18 08:59 Venlafaxine HCl (Effexor Xr) 225 mg DAILY PO 11/01/18 09:00 11/08/18 08:37 Allergies Coded Allergies: amitriptyline (Verified Allergy, Severe, SWELLING, 07/12/18) Grass (Verified Allergy, Mild, ITCHY EYES,NOSE, 12/17/17) TREES (Verified Allergy, Mild, ITCHY EYES,NOSE, 12/17/17) TAPE (Verified Allergy, Unknown, RASH/BLISTER, 07/12/18) bupropion (Verified Allergy, Unknown, ESOPHAGEAL SPASMS, 07/12/18) metaxalone (Verified Allergy, Unknown, itching, 07/12/18) minocycline (Verified Allergy, Unknown, 07/12/18) mold (Verified Allergy, Unknown, 07/12/18) pregabalin (Verified Allergy, Unknown, EDEMA, 07/12/18) propranolol (Verified Allergy, Unknown, 07/12/18) tizanidine (Verified Allergy, Unknown, ITCHING, 07/12/18) trazodone (Verified Allergy, Unknown, EDEMA, 07/12/18) valproic acid (Verified Allergy, Unknown, DOES NOT METABOLIZE, 07/12/18) banana (Verified Adverse Reaction, Unknown, VOMITING, 07/12/18) benztropine (Verified Adverse Reaction, Unknown, BLURRED VISION, 08/31/18) clindamycin (Verified Adverse Reaction, Unknown, HEART BURN, 07/12/18) cyclobenzaprine (Verified Adverse Reaction, Unknown, IRRITABILITY, 07/12/18) gabapentin (Verified Adverse Reaction, Unknown, extreme weakness, 08/31/18) sulfamethoxazole (Verified Adverse Reaction, Unknown, DIARRHEA, 07/12/18) trimethoprim (Verified Adverse Reaction, Unknown, DIARRHEA, 07/12/18) vilazodone (Verified Adverse Reaction, Unknown, MOOD CHANGES, 08/31/18) MANJULA ALBRIGHT DO Nov 08, 2018 09:47
[2018-11-08 11:38] LABS: BASO # 0.1 10^3/uL (0.0-0.2); BASO % 0.9 % (0.0-1.0); EOS # 0.2 10^3/uL (0.0-0.50); EOS % 3.4 % (0.0-3.0); HEMATOCRIT 39.5 % (36.0-47.0); HEMOGLOBIN 12.5 g/dl (12.0-15.5); LYMPH % 27.8 % (24.0-44.0); MEAN CORPUSCULAR HEMOGLOBIN 28.3 pg (27.0-33.0); MEAN CORPUSCULAR HGB CONC 31.6 g/dl (32.0-36.5); MEAN CORPUSCULAR VOLUME 89.4 fl (80.0-96.0); MONO # 0.5 10^3/uL (0.0-0.8); MONO % 6.6 % (0.0-5.0); NEUTROPHILS # 4.3 10^3/uL (1.8-7.7); NEUTROPHILS % 60.9 % (36.0-66.0); PLATELET COUNT, AUTOMATED 259 10^3/uL (150-450); RED BLOOD COUNT 4.42 10^6/uL (4.00-5.40)
[2018-11-08] MEDS: DOCUSATE SODIUM 100 MG CAP PO PRN (15:33)
[2018-11-08 15:55] VITALS: BP 132/80
--- NOTE | 2018-11-08 18:42 | ECGEPIP ---
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
[2018-11-08] MEDS: IBUPROFEN 800 MG TAB PO PRN (19:14)
[2018-11-08] MEDS: rOPINIRole 2MG TAB PO SCH (20:21)
[2018-11-08] MEDS: LORazepam 0.5 MG TAB PO PRN (20:21)
[2018-11-08] MEDS: cloZAPine 25 MG TAB (S0136) PO SCH (20:22)
[2018-11-09] MEDS: IBUPROFEN 800 MG TAB PO PRN ×3 (06:20→23:12)
[2018-11-09 06:40] VITALS: BP 136/62
[2018-11-09] MEDS: PILL CUTTER 1 EACH XX PRN ×3 (08:08→16:56)
[2018-11-09] MEDS: MYCOPHENOLATE MOFETIL 250 MG CAP (J7517) PO SCH ×3 (08:10→21:16)
[2018-11-09] MEDS: LIDOCAINE 5% (LIDODERM) PATCH TD PRN ×2 (08:10→16:58)
[2018-11-09] MEDS: VITAMIN D 1,000 INTERNATIONAL UNITS TABLET PO SCH (08:11)
[2018-11-09] MEDS: VENLAFAXINE **XR** 75MG CAPSULE PO SCH (08:11)
[2018-11-09] MEDS: OMEPRAZOLE 20 MG CAP PO SCH (08:12)
[2018-11-09] MEDS: FOLIC ACID 1 MG TAB PO SCH (08:12)
[2018-11-09] MEDS: PYRIDOSTIGMINE 60 MG TAB PO SCH ×4 (08:12→21:15)
[2018-11-09] MEDS: ACYCLOVIR 200 MG CAPSULE PO SCH ×2 (08:12→21:16)
[2018-11-09] MEDS: BACLOFEN 10 MG TAB PO SCH ×3 (08:12→21:16)
[2018-11-09] MEDS: rOPINIRole 0.25 MG TAB(REQUIP) PO SCH (08:14)
[2018-11-09] MEDS: ACETAMINOPHEN TAB 650MG DOSE (2X325MG) PO PRN (10:08)
--- NOTE | 2018-11-09 11:32 | MHIPNPDOC ---
[facility] Progress Note Progress Note Date of Service: 11/09/2018 History of Present Illness The patient a 38-year-old woman with a likely history of borderline personality disorder and depression presents with suicidality. She has multiple conflicting, controlled prescriptions that are likely unhelpful for her as recent studies have indicated borderline personality disorder decompensates in the context of benzodiazepine use. The patient has made various self-harm statements, but all have appeared very vain and primarily manipulative and behavioral. Interval History The patient was met with today. She describes the clozapine is helping her depression and she is improving well with less self-harm thoughts and improving depression. She does report having consistent spasms that are problematic as well as some intermittent confusion episodes. She reports having difficulties with pain secondary to her spasms, but otherwise reports that her anxiety and ability to attend to her needs has been improving. She describes she is becoming more future orientated and positive. Review Of Systems Denies any constipation, tremors or other side effects from clozapine. Does report some sedation likely from the Ambien on the previous evening. Reports improving hopelessness and fatigue. Psychotherapy None on this visit. Vital Signs Reviewed. Mental Status Examination General: Well dressed with good hygiene Speech: Spontaneous and fluid Thought processes: Linear and logical MSK: Smooth and coordinated gait, no signs of tremors or involuntary orofacial movements Thought content: Future orientated Abstract reasoning, and computation: Intact Description of associations: Intact Description of abnormal or psychotic thoughts: Denies suicidal thoughts at this time. Denies consistent self-harm thoughts. Denies homicidal thoughts. Denies auditory or visual hallucinations. Judgment: fair Insight: fair Orientation: Alert and orientated 3 Cognition: Grossly normal Recent and remote memory: Intact Attention span and concentration: Intact Fund of knowledge: Adequate Mood: "Okay" Affect: Less dysthymic with a improving range. Diagnoses Unspecified depressive disorder. Rule out MDD versus substance induced. Borderline personality disorder. Cannabis use disorder, mild. Assessment and Plan The patient appears to be making some improvement on the clozapine, we will co ntinue 75 mg nightly and Ambien 5 mg. We will order med consult for muscle spasms and EEG to rule out potential seizures related to clozapine. Patient reports that she does have more myasthenia symptoms when she is on clozapine. We will consider med consult for this if medication adjustment is warranted. Disposition The patient will need further inpatient admission to titrate her medications and to start safety planning in order to produce a safe discharge due to her fluctuating symptoms. Time Spent 15 minutes. Thursday Vital Signs Vital Signs Date Time Temp Pulse Resp B/P (MAP) Pulse Ox O2 Delivery O2 Flow Rate FiO2 11/09/18 06:40 98.1 81 16 136/62 (86) Current Medications Current Medications Medications (Trade) Dose Ordered Sig/Ben Route PRN Reason Start Time Stop Time Status Last Admin Dose Admin Acetaminophen (Tylenol Tab) 650 mg Q6HP PRN PO HEADACHE or DISCOMFORT 10/30/18 23:15 11/09/18 10:08 Acyclovir (Zovirax) 400 mg BID PO 10/30/18 21:00 11/09/18 08:12 Al Hydrox/Mg Hydrox/Simethicone (Mylanta) 30 ml Q4HP PRN PO HEARTBURN/INDIGESTION 10/30/18 23:15 Alprazolam (Xanax) 1 mg QHS PRN PO SLEEP 10/30/18 23:15 11/08/18 10:47 DC 11/07/18 21:46 Baclofen (Lioresal) 10 mg TID PO 10/31/18 09:00 11/09/18 08:12 Clozapine (Clozaril) 25 mg QHS PO 11/03/18 21:00 11/04/18 12:52 DC 11/03/18 20:37 Clozapine (Clozaril) 50 mg QHS PO 11/04/18 21:00 11/08/18 10:47 DC 11/07/18 21:01 Clozapine (Clozaril) 75 mg QHS PO 11/08/18 21:00 11/08/18 20:22 Docusate Sodium (Colace) 100 mg DAILYPRN PRN PO CONSTIPATION 11/08/18 10:45 11/08/18 15:33 Folic Acid (Folic Acid) 1 mg DAILY PO 10/31/18 09:00 11/09/18 08:12 Home Med (Med Rec Complete!) ASDIRECTED XX 10/30/18 22:00 10/30/18 22:00 DC Ibuprofen (Advil) 800 mg Q8H PRN PO PAIN 10/30/18 23:15 11/09/18 06:20 Lidocaine (Lidoderm Patch) 1 patch DAILYPRN PRN TD pain 11/05/18 17:30 11/09/18 08:10 Lorazepam (Ativan) 0.5 mg Q6HP PRN PO ANXIETY 10/31/18 17:00 11/08/18 20:21 Lorazepam (Ativan) 1 mg STAT STAT PO 10/31/18 16:54 10/31/18 16:58 DC 10/31/18 17:06 Magnesium Hydroxide (Milk Of Magnesia) 30 ml DAILYPRN PRN PO CONSTIPATION 10/30/18 23:15 11/07/18 12:04 Miscellaneous (Unresolved Clarification Entry) SEE LABEL COMMENTS DAILY XX 11/05/18 09:00 11/06/18 08:08 DC Miscellaneous (Unresolved Clarification Entry) SEE LABEL COMMENTS DAILY XX 11/06/18 09:00 11/06/18 13:02 DC Mycophenolate Mofetil (Cellcept) 1,000 mg TID PO 10/30/18 21:00 11/09/18 08:10 Naltrexone HCl (Revia) 25 mg BID PO 10/30/18 21:00 11/08/18 19:48 DC 11/07/18 08:13 Nicotine (Nicoderm Cq 21mg) 1 patch DAILY PRN TD As Needed For Craving 10/30/18 23:15 Cancel Non-Formulary Medication ( See Comment Field Below ) REMOVE LIDODERM PATCH... DAILY@21 XX 11/05/18 21:00 11/08/18 21:41 Omeprazole (PriLOSEC) 20 mg DAILY PO 10/31/18 09:00 11/09/18 08:12 Pyridostigmine [place] (Mestinon) 90 mg QID PO 10/30/18 21:00 11/09/18 08:12 Quetiapine Fumarate (SEROquel) 75 mg QHS PO 10/31/18 21:00 11/03/18 16:50 DC 11/02/18 20:44 Ropinirole HCl (Requip) 0.25 mg QAM PO 10/31/18 09:00 11/09/18 08:14 Ropinirole HCl (Requip) 2 mg QHS PO 10/30/18 21:00 10/31/18 17:13 DC 10/31/18 02:02 Ropinirole HCl (Requip) 2 mg QHS PO 10/31/18 21:00 11/08/18 20:21 Venlafaxine HCl (Effexor Xr) 150 mg DAILY PO 10/31/18 09:00 10/31/18 16:52 DC 10/31/18 08:59 Venlafaxine HCl (Effexor Xr) 225 mg DAILY PO 11/01/18 09:00 11/09/18 08:11 Vitamin D (Vitamin D) 5,000 units DAILY PO 11/09/18 09:00 11/09/18 08:11 Zolpidem Tartrate (Ambien) 5 mg QHSP PRN PO sleep 11/08/18 10:45 Allergies Coded Allergies: amitriptyline (Verified Allergy, Severe, SWELLING, 07/12/18) Grass (Verified Allergy, Mild, ITCHY EYES,NOSE, 12/17/17) TREES (Verified Allergy, Mild, ITCHY EYES,NOSE, 12/17/17) TAPE (Verified Allergy, Unknown, RASH/BLISTER, 07/12/18) bupropion (Verified Allergy, Unknown, ESOPHAGEAL SPASMS, 07/12/18) metaxalone (Verified Allergy, Unknown, itching, 07/12/18) minocycline (Verified Allergy, Unknown, 07/12/18) mold (Verified Allergy, Unknown, 07/12/18) pregabalin (Verified Allergy, Unknown, EDEMA, 07/12/18) propranolol (Verified Allergy, Unknown, 07/12/18) tizanidine (Verified Allergy, Unknown, ITCHING, 07/12/18) trazodone (Verified Allergy, Unknown, EDEMA, 07/12/18) valproic acid (Verified Allergy, Unknown, DOES NOT METABOLIZE, 07/12/18) banana (Verified Adverse Reaction, Unknown, VOMITING, 07/12/18) benztropine (Verified Adverse Reaction, Unknown, BLURRED VISION, 08/31/18) clindamycin (Verified Adverse Reaction, Unknown, HEART BURN, 07/12/18) cyclobenzaprine (Verified Adverse Reaction, Unknown, IRRITABILITY, 07/12/18) gabapentin (Verified Adverse Reaction, Unknown, extreme weakness, 08/31/18) sulfamethoxazole (Verified Adverse Reaction, Unknown, DIARRHEA, 07/12/18) trimethoprim (Verified Adverse Reaction, Unknown, DIARRHEA, 07/12/18) vilazodone (Verified Adverse Reaction, Unknown, MOOD CHANGES, 08/31/18) MANJULA ALBRIGHT DO Nov 09, 2018 11:32
[2018-11-09 12:54] VITALS: BP 136/62
[2018-11-09 12:58] VITALS: BP 136/62
--- NOTE | 2018-11-09 14:26 | IPN ---
DATE: 11/09/2018 Mitra is seen in inpatient mental health unit. Reconsulted for back spasms. She described back pain and back spasms. She uses Baclofen as an outpatient. PHYSICAL EXAMINATION: Low back is tender to palpate. She does have some spasms in the vertebral muscles in the lumbar area. is at baseline. She did have some low back pain on axial loading, which is a nonorganic sign as well. IMPRESSION: 1. Low back pain with spasm. Question of nonorganic signs present as well. PLAN: She typically responds to Baclofen. She is probably habituated to the current dose. We will increase it to 20 mg three times a day and asked nursing staff to observe for sedative effects.
[2018-11-09 16:30] VITALS: BP 140/87
[2018-11-09] MEDS: DOCUSATE SODIUM 100 MG CAP PO PRN (16:55)
[2018-11-09 19:20] VITALS: BP 140/87
[2018-11-09] MEDS: rOPINIRole 2MG TAB PO SCH (21:15)
[2018-11-09] MEDS: cloZAPine 25 MG TAB (S0136) PO SCH (21:16)
[2018-11-09] MEDS: zolPIDEM TARTRATE 5 MG TAB PO PRN (23:11)
[2018-11-10 06:37] VITALS: BP 142/75
[2018-11-10] MEDS: PILL CUTTER 1 EACH XX PRN ×3 (08:20→17:11)
[2018-11-10] MEDS: VITAMIN D 1,000 INTERNATIONAL UNITS TABLET PO SCH (08:21)
[2018-11-10] MEDS: PYRIDOSTIGMINE 60 MG TAB PO SCH ×4 (08:22→20:50)
[2018-11-10] MEDS: MYCOPHENOLATE MOFETIL 250 MG CAP (J7517) PO SCH ×3 (08:22→20:50)
[2018-11-10] MEDS: VENLAFAXINE **XR** 75MG CAPSULE PO SCH (08:22)
[2018-11-10] MEDS: IBUPROFEN 800 MG TAB PO PRN (08:23)
[2018-11-10] MEDS: LIDOCAINE 5% (LIDODERM) PATCH TD PRN (08:23)
[2018-11-10] MEDS: OMEPRAZOLE 20 MG CAP PO SCH (08:23)
[2018-11-10] MEDS: FOLIC ACID 1 MG TAB PO SCH (08:24)
[2018-11-10] MEDS: ACYCLOVIR 200 MG CAPSULE PO SCH ×2 (08:24→20:50)
[2018-11-10] MEDS: BACLOFEN 10 MG TAB PO SCH ×3 (08:24→20:50)
[2018-11-10] MEDS: rOPINIRole 0.25 MG TAB(REQUIP) PO SCH (08:45)
--- NOTE | 2018-11-10 09:10 | MHIPNPDOC ---
[facility] Progress Note Progress Note Mitra Taylor Inpatient Progress Note Mitra Taylor Select Gender MRN: N/A Date of : MM/DD/YYYY Date of Service: 11/10/2018 History of Present Illness The patient a 38-year-old woman with a likely history of borderline personality disorder and depression presents with suicidality. She has multiple conflicting, controlled prescriptions that are likely unhelpful for her as recent studies have indicated borderline personality disorder decompensates in the context of benzodiazepine use. The patient has made various self-harm statements, but all have appeared very vain and primarily manipulative and behavioral. Interval History The patient is met with today. She was seen by the medical provider yesterday and her baclofen was increased with some positive effects on her chronic back pain. She reports that she is having a bit more appetite increase from the clozapine and that her constipation is stable, but still problematic with clozapine. She denies any other side effects such as tremors, headaches or fevers at this time. She reports her depression is lifting with less depressed mood, better motivation, less fatigue and better ability to attend to her needs. Reports that her suicidal ideations have generally resolved with only fleeting thoughts at times of stress. She reports that she is feeling ready for discharge potentially tomorrow. She had her EEG today in order to ascertain the nature of these reported confusion episodes, which could be related to dissociation or seizure disorder, she does have multiple autoimmune disorders. Review Of Systems As above reports improving self-harm thoughts and resolving impulsivity. Psychotherapy None on this visit. Vital Signs Reviewed. Mental Status Examination General: Well dressed with good hygiene Speech: Spontaneous and fluid Thought processes: Linear and logical MSK: Smooth and coordinated gait, no signs of tremors or involuntary orofacial movements Thought content: Future orientated Abstract reasoning, and computation: Intact Description of associations: Intact Description of abnormal or psychotic thoughts: Denies suicidal thoughts at this time. Denies consistent self-harm thoughts. Denies homicidal thoughts. Denies auditory or visual hallucinations. Judgment: fair Insight: fair Orientation: Alert and orientated 3 Cognition: Grossly normal Recent and remote memory: Intact Attention span and concentration: Intact Fund of knowledge: Adequate Mood: "Okay" Affect: More euthymic with an improving range. Diagnoses Unspecified depressive disorder. Rule out MDD versus substance induced. Borderline personality disorder. Cannabis use disorder, mild. Assessment and Plan Continue clozapine 75 mg, continue Ambien 5 mg PRN, start Rozerem 8 mg nightly as appetite associated with her Clozaril. Discussed risks and benefits as well as the use of Rozerem preferentially melatonin is contraindicated in autoimmune disorders. We will await results from EEG, however, plan for discharged tomorrow as suicidality appears to have resolved. Nursing notes reveal no suicidality for the last several days. Disposition Likely discharge tomorrow. Time Spent 20 minutes face to face. Vital Signs Vital Signs Date Time Temp Pulse Resp B/P (MAP) Pulse Ox O2 Delivery O2 Flow Rate FiO2 11/10/18 06:37 97.2 76 16 142/75 (97) 11/09/18 19:20 100 11/09/18 12:58 Room Air Current Medications Current Medications Medications (Trade) Dose Ordered Sig/Ben Route PRN Reason Start Time Stop Time Status Last Admin Dose Admin Acetaminophen (Tylenol Tab) 650 mg Q6HP PRN PO HEADACHE or DISCOMFORT 10/30/18 23:15 11/09/18 10:08 Acyclovir (Zovirax) 400 mg BID PO 10/30/18 21:00 11/10/18 08:24 Al Hydrox/Mg Hydrox/Simethicone (Mylanta) 30 ml Q4HP PRN PO HEARTBURN/INDIGESTION 10/30/18 23:15 Alprazolam (Xanax) 1 mg QHS PRN PO SLEEP 10/30/18 23:15 11/08/18 10:47 DC 11/07/18 21:46 Baclofen (Lioresal) 10 mg TID PO 10/31/18 09:00 11/09/18 14:17 DC 11/09/18 08:12 Baclofen (Lioresal) 20 mg TID PO 11/09/18 16:00 11/10/18 08:24 Clozapine (Clozaril) 25 mg QHS PO 11/03/18 21:00 11/04/18 12:52 DC 11/03/18 20:37 Clozapine (Clozaril) 50 mg QHS PO 11/04/18 21:00 11/08/18 10:47 DC 11/07/18 21:01 Clozapine (Clozaril) 75 mg QHS PO 11/08/18 21:00 11/09/18 21:16 Docusate Sodium (Colace) 100 mg DAILYPRN PRN PO CONSTIPATION 11/08/18 10:45 11/09/18 16:55 Folic Acid (Folic Acid) 1 mg DAILY PO 10/31/18 09:00 11/10/18 08:24 Home Med (Med Rec Complete!) ASDIRECTED XX 10/30/18 22:00 10/30/18 22:00 DC Ibuprofen (Advil) 800 mg Q8H PRN PO PAIN 10/30/18 23:15 11/10/18 08:23 Lidocaine (Lidoderm Patch) 1 patch DAILYPRN PRN TD pain 11/05/18 17:30 11/10/18 08:23 Lorazepam (Ativan) 0.5 mg Q6HP PRN PO ANXIETY 10/31/18 17:00 11/08/18 20:21 Lorazepam (Ativan) 1 mg STAT STAT PO 10/31/18 16:54 10/31/18 16:58 DC 10/31/18 17:06 Magnesium Hydroxide (Milk Of Magnesia) 30 ml DAILYPRN PRN PO CONSTIPATION 10/30/18 23:15 11/07/18 12:04 Miscellaneous (Unresolved Clarification Entry) SEE LABEL COMMENTS DAILY XX 11/05/18 09:00 11/06/18 08:08 DC Miscellaneous (Unresolved Clarification Entry) SEE LABEL COMMENTS DAILY XX 11/06/18 09:00 11/06/18 13:02 DC Mycophenolate Mofetil (Cellcept) 1,000 mg TID PO 10/30/18 21:00 11/10/18 08:22 Naltrexone HCl (Revia) 25 mg BID PO 10/30/18 21:00 11/08/18 19:48 DC 11/07/18 08:13 Nicotine (Nicoderm Cq 21mg) 1 patch DAILY PRN TD As Needed For Craving 10/30/18 23:15 Cancel Non-Formulary Medication ( See Comment Field Below ) REMOVE LIDODERM PATCH... DAILY@21 XX 11/05/18 21:00 11/09/18 21:10 Omeprazole (PriLOSEC) 20 mg DAILY PO 10/31/18 09:00 11/10/18 08:23 Pyridostigmine [place] (Mestinon) 90 mg QID PO 10/30/18 21:00 11/10/18 08:22 Quetiapine Fumarate (SEROquel) 75 mg QHS PO 10/31/18 21:00 11/03/18 16:50 DC 11/02/18 20:44 Ropinirole HCl (Requip) 0.25 mg QAM PO 10/31/18 09:00 11/10/18 08:45 Ropinirole HCl (Requip) 2 mg QHS PO 10/30/18 21:00 10/31/18 17:13 DC 10/31/18 02:02 Ropinirole HCl (Requip) 2 mg QHS PO 10/31/18 21:00 11/09/18 21:15 Venlafaxine HCl (Effexor Xr) 150 mg DAILY PO 10/31/18 09:00 10/31/18 16:52 DC 10/31/18 08:59 Venlafaxine HCl (Effexor Xr) 225 mg DAILY PO 11/01/18 09:00 11/10/18 08:22 Vitamin D (Vitamin D) 5,000 units DAILY PO 11/09/18 09:00 11/10/18 08:21 Zolpidem Tartrate (Ambien) 5 mg QHSP PRN PO sleep 11/08/18 10:45 11/09/18 23:11 Allergies Coded Allergies: amitriptyline (Verified Allergy, Severe, SWELLING, 07/12/18) Grass (Verified Allergy, Mild, ITCHY EYES,NOSE, 12/17/17) TREES (Verified Allergy, Mild, ITCHY EYES,NOSE, 12/17/17) TAPE (Verified Allergy, Unknown, RASH/BLISTER, 07/12/18) bupropion (Verified Allergy, Unknown, ESOPHAGEAL SPASMS, 07/12/18) metaxalone (Verified Allergy, Unknown, itching, 07/12/18) minocycline (Verified Allergy, Unknown, 07/12/18) mold (Verified Allergy, Unknown, 07/12/18) pregabalin (Verified Allergy, Unknown, EDEMA, 07/12/18) propranolol (Verified Allergy, Unknown, 07/12/18) tizanidine (Verified Allergy, Unknown, ITCHING, 07/12/18) trazodone (Verified Allergy, Unknown, EDEMA, 07/12/18) valproic acid (Verified Allergy, Unknown, DOES NOT METABOLIZE, 07/12/18) banana (Verified Adverse Reaction, Unknown, VOMITING, 07/12/18) benztropine (Verified Adverse Reaction, Unknown, BLURRED VISION, 08/31/18) clindamycin (Verified Adverse Reaction, Unknown, HEART BURN, 07/12/18) cyclobenzaprine (Verified Adverse Reaction, Unknown, IRRITABILITY, 07/12/18) gabapentin (Verified Adverse Reaction, Unknown, extreme weakness, 08/31/18) sulfamethoxazole (Verified Adverse Reaction, Unknown, DIARRHEA, 07/12/18) trimethoprim (Verified Adverse Reaction, Unknown, DIARRHEA, 07/12/18) vilazodone (Verified Adverse Reaction, Unknown, MOOD CHANGES, 08/31/18) MANJULA ALBRIGHT DO Nov 10, 2018 09:10
[2018-11-10 13:47] LABS: BASO # 0.1 10^3/uL (0.0-0.2); BASO % 0.6 % (0.0-1.0); EOS # 0.3 10^3/uL (0.0-0.50); EOS % 3.1 % (0.0-3.0); HEMATOCRIT 40.9 % (36.0-47.0); HEMOGLOBIN 13.2 g/dl (12.0-15.5); LYMPH # 1.9 10^3/uL (1.5-4.5); LYMPH % 21.8 % (24.0-44.0); MEAN CORPUSCULAR HEMOGLOBIN 29.7 pg (27.0-33.0); MEAN CORPUSCULAR HGB CONC 32.3 g/dl (32.0-36.5); MEAN CORPUSCULAR VOLUME 92.1 fl (80.0-96.0); MONO # 0.5 10^3/uL (0.0-0.8); MONO % 5.1 % (0.0-5.0); NEUTROPHILS # 6.1 10^3/uL (1.8-7.7); NEUTROPHILS % 68.8 % (36.0-66.0); PLATELET COUNT, AUTOMATED 249 10^3/uL (150-450); RED BLOOD COUNT 4.44 10^6/uL (4.00-5.40); WHITE BLOOD COUNT 8.9 10^3/uL (4.0-10.0)
[2018-11-10] MEDS: ACETAMINOPHEN TAB 650MG DOSE (2X325MG) PO PRN (15:35)
[2018-11-10] MEDS: LORazepam 0.5 MG TAB PO PRN (15:55)
[2018-11-10 18:00] VITALS: BP 135/68
[2018-11-10] MEDS: zolPIDEM TARTRATE 5 MG TAB PO PRN (20:49)
[2018-11-10] MEDS: rOPINIRole 2MG TAB PO SCH (20:55)
[2018-11-10] MEDS ORDERED: cloZAPine 25 MG TAB (S0136) PO SCH ×2 (21:00)
[2018-11-10] MEDS ORDERED: RAMELTEON 8 MG TAB (ROZEREM) PO SCH (21:00)
[2018-11-11 06:39] VITALS: BP 148/86
[2018-11-11] MEDS: IBUPROFEN 800 MG TAB PO PRN (06:45)
[2018-11-11] MEDS: MYCOPHENOLATE MOFETIL 250 MG CAP (J7517) PO SCH (08:35)
[2018-11-11] MEDS: rOPINIRole 0.25 MG TAB(REQUIP) PO SCH (08:35)
[2018-11-11] MEDS: PYRIDOSTIGMINE 60 MG TAB PO SCH (08:36)
[2018-11-11] MEDS: VENLAFAXINE **XR** 75MG CAPSULE PO SCH (08:36)
[2018-11-11] MEDS: ACYCLOVIR 200 MG CAPSULE PO SCH (08:36)
[2018-11-11] MEDS: VITAMIN D 1,000 INTERNATIONAL UNITS TABLET PO SCH (08:36)
[2018-11-11] MEDS: DOCUSATE SODIUM 100 MG CAP PO PRN (08:36)
[2018-11-11] MEDS: OMEPRAZOLE 20 MG CAP PO SCH (08:36)
[2018-11-11] MEDS: FOLIC ACID 1 MG TAB PO SCH (08:37)
[2018-11-11] MEDS: BACLOFEN 10 MG TAB PO SCH (08:37)
[2018-11-11] MEDS: LIDOCAINE 5% (LIDODERM) PATCH TD PRN (08:37)
--- NOTE | 2018-11-11 09:50 | MHDSPDOC ---
[facility] Discharge Summary Discharge Summary DATE OF ADMISSION: Oct 30, 2018 at 23:07 DATE OF DISCHARGE: 11/11/18 Date of Service: 11/11/2018 Diagnoses Unspecified depressive disorder. Rule out MDD versus substance induced. Borderline personality disorder. Cannabis use disorder, mild. History of Present Illness The patient a 38-year-old woman with a likely history of borderline personality disorder and depression presents with suicidality. She has multiple conflicting, controlled prescriptions that are likely unhelpful for her as recent studies have indicated borderline personality disorder decompensates in the context of benzodiazepine use. The patient has made various self-harm statements, but all have appeared very vain and primarily manipulative and behavioral. Consultants Involved Hospitalist/PCP screening Treatment and Progress On The Unit The patient was admitted to the unit and subsequently further evaluated. She was increased on her Effexor to 225 mg a day with some positive effects on her mood. She additionally was then augmented with clozapine as she had done previously quite well in the past on it. She was continued on her home Adderall 15 mg BID. She was additionally continued on her 1 mg of Xanax nightly for insomnia, howev er, she was titrated up on the clozapine to 75 mg daily with positive effects, reduced self-harm thoughts and her suicidal ideation resolving. She made positive progress on the unit where she was able to demonstrate more effect on her treatment attending groups regularly. The patient additionally was augmented with Rozerem 8 mg nightly for the clozapine. After augmentation, she reported less feelings of increased appetite, which she reported had been a problem that had led to her initial problem with the clozapine she had tried in September. She was discontinued on her Ativan as she had tried a low dose Ambien, but found it too oversedating. She was discharged free of suicidal ideation and significantly improved. She did explore the options of ECT and other various options for depression, but was able to come up with an effective discharge plan. She was demonstrating no significant signs of self-harm, suicidal ideation or severe depression on discharge. Discharge Assessment A 38-year-old woman with significant depression, borderline personality disorder and difficulty with self-harm who benefits from augmentation with clozapine as well as venlafaxine. She does have multiple controlled substances which are unlikely to be helpful for her as an outpatient. Mental Status Examination General: Well dressed with good hygiene Speech: Spontaneous and fluid Thought processes: Linear and logical MSK: Smooth and coordinated gait, no signs of tremors or involuntary orofacial movements Thought content: Future orientated Abstract reasoning, and computation: Intact Description of associations: Intact Description of abnormal or psychotic thoughts: Denies any suicidal or homicidal ideation. Denies any auditory or visual hallucinations. Does not appear to be responding to internal stimuli. Does not appear to be endorsing any bizarre or paranoid ideation. Judgment: fair Insight: fair Orientation: Alert and orientated 3 Cognition: Grossly normal Recent and remote memory: Intact Attention span and concentration: Intact Fund of knowledge: Adequate Mood: "okay" Affect: Euthymic with a full range Follow Up The social work team worked during the predischarge meeting in order to evaluate for further issues of lethality address them fully before discharge. They worked on safety planning with the patient's family members in order to ensure that the patient will have a safe and effective discharge. Time Spent The amount of time spent in the coordination of care for this patient was approximately 30 minutes. Vital Signs/I&Os Vital Signs Date Time Temp Pulse Resp B/P (MAP) Pulse Ox O2 Delivery O2 Flow Rate FiO2 11/11/18 06:39 98.4 92 14 148/86 (106) 11/09/18 19:20 100 11/09/18 12:58 Room Air Laboratory Data Labs 24H Laboratory Tests 2 11/10/18 13:31: Immature Granulocyte % (Auto) 0.6, White Blood Count 8.9, Red Blood Count 4.44, Hemoglobin 13.2, Hematocrit 40.9, Mean Corpuscular Volume 92.1, Mean Corpuscular Hemoglobin 29.7, Mean Corpuscular Hemoglobin Concent 32.3, Red Cell Distribution Width 13.6, Platelet Count 249, Neutrophils (%) (Auto) 68.8H, Lymphocytes (%) (Auto) 21.8L, Monocytes (%) (Auto) 5.1H, Eosinophils (%) (Auto) 3.1H, Basophils (%) (Auto) 0.6, Neutrophils # (Auto) 6.1, Lymphocytes # (Auto) 1.9, Monocytes # (Auto) 0.5, Eosinophils # (Auto) 0.3, Basophils # (Auto) 0.1, Nucleated Red Blood Cells % (auto) 0.0 CBC/BMP Laboratory Tests 11/10/18 13:31 Red Blood Count 4.44, Mean Corpuscular Volume 92.1, Mean Corpuscular Hemoglobin 29.7, Mean Corpuscular Hemoglobin Concent 32.3, Red Cell Distribution Width 13.6, Neutrophils (%) (Auto) 68.8 H, Lymphocytes (%) (Auto) 21.8 L, Monocytes (%) (Auto) 5.1 H, Eosinophils (%) (Auto) 3.1 H, Basophils (%) (Auto) 0.6, Neutrophils # (Auto) 6.1, Lymphocytes # (Auto) 1.9, Monocytes # (Auto) 0.5, Eosinophils # (Auto) 0.3, Basophils # (Auto) 0.1 Medications Scheduled Acyclovir (Acyclovir) 400 Mg Tab, 400 MG PO BID, (Reported) Baclofen (Baclofen) 10 Mg Tablet, 20 MG PO TID for back pain for 7 Days, #14 Cholecalciferol (Vitamin D3) (Vitamin D3) 5,000 Unit Tab, 5,000 UNIT PO DAILY, (Reported) Clozapine (Clozapine) 25 Mg Tablet, 75 MG PO QHS for mood for 7 Days, #21 Dextroamphetamine/Amphetamine (Adderall Xr 15 mg Capsule) 15 Mg Cap.er.24h, 15 MG PO BID, (Reported) TAKES QAM AND NOON Folic Acid (Folic Acid) 1 Mg Tab, 1 MG PO DAILY, (Reported) Mirabegron (Myrbetriq) 50 Mg Tab, 50 MG PO DAILY, (Reported) Mycophenolate Mofetil (Cellcept) 500 Mg Tab, 1,000 MG PO TID, (Reported) Omeprazole (Omeprazole) 20 Mg Capsule.dr, 20 MG PO DAILY, (Reported) Pyridostigmine [place] (Mestinon) 60 Mg Tab, 90 MG PO QID, (Reported) Ramelteon (Ramelteon) 8 Mg Tablet, 8 MG PO QHS for sleep for 30 Days, #30 Ropinirole HCl (Ropinirole HCl) 1 Mg Tab, 2 MG PO QHS, (Reported) Ropinirole HCl (Ropinirole HCl) 0.25 Mg Tablet, 0.25 MG PO QAM, (Reported) Venlafaxine HCl (Venlafaxine HCl ER) 75 Mg Cap.er.24h, 225 MG PO DAILY for mood for 7 Days, #21 Scheduled PRN Ibuprofen (Ibuprofen) 800 Mg Tablet, 800 MG PO Q8H PRN for PAIN, (Reported) Allergies Coded Allergies: amitriptyline (Verified Allergy, Severe, SWELLING, 07/12/18) Grass (Verified Allergy, Mild, ITCHY EYES,NOSE, 12/17/17) TREES (Verified Allergy, Mild, ITCHY EYES,NOSE, 12/17/17) TAPE (Verified Allergy, Unknown, RASH/BLISTER, 07/12/18) bupropion (Verified Allergy, Unknown, ESOPHAGEAL SPASMS, 07/12/18) metaxalone (Verified Allergy, Unknown, itching, 07/12/18) minocycline (Verified Allergy, Unknown, 07/12/18) mold (Verified Allergy, Unknown, 07/12/18) pregabalin (Verified Allergy, Unknown, EDEMA, 07/12/18) propranolol (Verified Allergy, Unknown, 07/12/18) tizanidine (Verified Allergy, Unknown, ITCHING, 07/12/18) trazodone (Verified Allergy, Unknown, EDEMA, 07/12/18) valproic acid (Verified Allergy, Unknown, DOES NOT METABOLIZE, 07/12/18) banana (Verified Adverse Reaction, Unknown, VOMITING, 07/12/18) benztropine (Verified Adverse Reaction, Unknown, BLURRED VISION, 08/31/18) clindamycin (Verified Adverse Reaction, Unknown, HEART BURN, 07/12/18) cyclobenzaprine (Verified Adverse Reaction, Unknown, IRRITABILITY, 07/12/18) gabapentin (Verified Adverse Reaction, Unknown, extreme weakness, 08/31/18) sulfamethoxazole (Verified Adverse Reaction, Unknown, DIARRHEA, 07/12/18) trimethoprim (Verified Adverse Reaction, Unknown, DIARRHEA, 07/12/18) vilazodone (Verified Adverse Reaction, Unknown, MOOD CHANGES, 08/31/18) MANJULA ALBRIGHT DO Nov 11, 2018 09:50
[2018-11-11] MEDS ORDERED: RAME8TAB2 PO (10:47)
[2018-11-11] MEDS ORDERED: BACL10TA2 PO (10:47)
[2018-11-11] MEDS ORDERED: CLOZ25TA3 PO (10:47)
[2018-11-11] MEDS ORDERED: VENL75CA47 PO (10:47)
--- NOTE | 2018-11-12 07:55 | EEG ---
DATE OF PROCEDURE: 11/10/2018 REFERRING PHYSICIAN: Dr. Alfredo Montes DIAGNOSIS: Possible seizure. EEG NUMBER: [id number] HISTORY: The patient is a 38-year-old woman who was admitted at [facility] due to depression, borderline personality disorder and suicidality. EEG was done to rule out seizures and dissociative disorder. She is currently taking baclofen, folic acid, CellCept, Mestinon, Requip, acyclovir, Prilosec, Effexor, clozapine. TECHNICAL DESCRIPTION: This digital EEG was recorded by 21 scalp, ear and two EKG electrodes and was reviewed in bipolar and referential montages following reformatting in 10-20 international electrode placement system. INTERPRETATION: The patient was noted to be in awake and drowsy states during this EEG. Resting awake background rhythm consisted of 10 Hz alpha activity measuring 15 - 40 microvolts in amplitude, which was symmetric and reactive to eye opening. Attenuation of posterior dominant was seen during transition into drowsiness. Stage I and II sleep were reviewed and was symmetric bilaterally. Hyperventilation and photic stimulation remained unremarkable. EKG revealed normal sinus rhythm. Left rectus muscle artifact was noted. Benign small spikes of sleep were noted in left temporal head region during sleep. No focal, lateralizing or epileptiform abnormalities were seen. No clinical or electrographic seizures were recorded. CONCLUSION: This EEG in awake, drowsy states, stage I and II sleep is within normal limits.
== END 2018-11-11 13:10 | disposition home or self-care (01) | DRG 751 ==
LOC: M ED 20:38 → M ED INP 23:07 → M PSY 10-31 00:15
PROVIDERS: ADMIT Psychiatry & Neurology Psychiatry; ATTEND Psychiatry & Neurology Addiction Medicine
DX: F33.9 Major depressive disorder, recurrent, unspecified (principal); J30.1 Allergic rhinitis due to pollen; F60.3 Borderline personality disorder; M62.830 Muscle spasm of back; F12.10 Cannabis abuse, uncomplicated; A60.09 Herpesviral infection of other urogenital tract; G25.81 Restless legs syndrome; G47.00 Insomnia, unspecified; K21.9 Gastro-esophageal reflux disease without esophagitis; G70.00 Myasthenia gravis without (acute) exacerbation; Z88.2 Allergy status to sulfonamides; Z88.8 Allergy status to other drugs, medicaments and biological substances; Z91.048 Other nonmedicinal substance allergy status; Z81.8 Family history of other mental and behavioral disorders; Z62.811 Personal history of psychological abuse in childhood; Z79.899 Other long term (current) drug therapy; Z91.5 Personal history of self-harm

== ENCOUNTER → 2019-03-24 | Outpatient (CLI) | payer OTHER ==
[~2019-03-24] MED LIST changes: +BACL10TA2 PO; +CLON0.5T2 PO; -CLON0.5T8 PO; +CLOZ25TA3 PO; +LOXA50CA PO; +RAME8TAB2 PO; +ROPI0.253 PO; +ZALE10CA PO
--- NOTE | 2019-03-24 16:00 | REP ---
Digital diagnostic bilateral mammography with CAD, 3-D tomography, and focused right breast sonography. History: Palpable lump right breast noted 1 week ago. Comparison mammography is from November 01, 2008. Mammographic findings: A skin marker is affixed to the skin at the site of the palpable lump. This projects inferiorly and medially in the right breast. Routine views are accomplished along with magnified focal spot compression images and 3-D tomography. These views confirm the presence of a slightly spiculated irregularly shaped inferomedial right breast mass. This measures 2.2 cm medial to lateral by 1.6 cm cranial to caudal by 2.0 cm anterior to posterior. This is considered suspicious mammographically and appears to correspond to the palpable abnormality. Breast parenchyma is heterogeneously dense in a pattern which may otherwise inhibit the sensitivity of mammography. No other soft tissue mass is seen. No micro calcific cluster is observed. No worrisome skin change is seen. 3-D tomography images show no additional abnormality. Focused right breast sonographic findings: The right breast is examined at the site of the palpable lump at approximate 4 o'clock inferiorly and medially. Spiculated very hypoechoic suspicious mass is seen sonographically measuring 2.0 x 1.5 x 1.3 cm. This is felt to correspond to mammographic opacity. It has irregular spiculated margins. Its long axis is parallel to the skin. Impression: BIRADS category five highly suspicious right breast imaging. The palpable lump corresponds to a 2.2 cm mass mammographically and hypoechoic spiculated mass sonographically. Ultrasound-guided needle biopsy with marker clip placement is recommended. BIRADS 5: BI-RADS/ACR category 5 mammogram. Highly Suggestive of Malignancy - appropriate action should be taken. This mammogram was interpreted with the aid of an FDA-approved computer-aided detection system. The patient states she had a clinical breast exam in February 2019. The patient letter being requested is m4 This patient's estimated Tyrer-Cuzick lifetime risk assessment for the breast cancer is 12.8 %. Electronically Signed by Justin Tucker MD 03/24/2019 06:15 P
== END ==
LOC: M RAD 13:53
PROVIDERS: ATTEND Family Medicine
DX: N63.10 Unspecified lump in the right breast, unspecified quadrant (principal)
CPT/HCPCS: 76642; 77066; G0279

== ENCOUNTER → 2019-04-14 | Outpatient (CLI) | payer OTHER ==
[~2019-04-14] MED LIST changes: -LORA0.5T11 PO; +LORA0.5T5 PO; +ONDA-83 PO; -ONDA4TAB5 PO
--- NOTE | 2019-04-15 02:57 | REP ---
Clinical: Cough . Comparison: 01/15/2018 . Technique: PA and lateral. Findings: The mediastinum and cardiac silhouette are normal. Evidence of prior sternotomy. The lung tanner are clear and without acute consolidation, effusion, or pneumothorax. The skeletal structures are intact and normal. Impression: 1. No acute cardiopulmonary process. Electronically Signed by Mt Esteban MD 04/15/2019 02:49 A
== END ==
LOC: M ADAMS 09:56
PROVIDERS: ATTEND Family Medicine
DX: R05 Cough (principal)

== ENCOUNTER → 2019-04-14 | Outpatient (REF) | payer OTHER ==
[2019-04-14 12:46] LABS: APPEARANCE, URINE TURBID (CLEAR); BACTERIA, URINE AUTO NEGATIVE (NEGATIVE); BILIRUBIN, URINE AUTO NEGATIVE (NEGATIVE); BLOOD, URINE BLOOD 1+ (NEGATIVE); CALCIUM OXALATE CRYSTALS LARGE; COLOR, URINE AMBER (YELLOW); GLUCOSE, URINE (UA) AUTO NEGATIVE (NEGATIVE); KETONE, URINE AUTO TRACE mg/dL (NEGATIVE); LEUKOCYTE ESTERASE, URINE AUTO TRACE (NEGATIVE); NITRITE, URINE AUTO NEGATIVE (NEGATIVE); PROTEIN, URINE AUTO NEGATIVE (NEGATIVE); RBC, URINE AUTO 14 /HPF (0-3); SPECIFIC GRAVITY URINE AUTO 1.032 (1.002-1.035); SQUAMOUS EPITHELIAL CELL UR AU 7 /HPF (0-6); UROBILINOGEN, URINE AUTO 0.2 mg/dL (0.0-2.0); WBC, URINE AUTO 13 /HPF (0-3)
[2019-04-14 13:17] LABS: ALBUMIN 3.9 GM/DL (3.2-5.2); ALT/SGPT 34 U/L (12-78); BILIRUBIN,TOTAL 0.4 MG/DL (0.2-1.0); BLOOD UREA NITROGEN 7 MG/DL (7-18); CARBON DIOXIDE LEVEL 23 MEQ/L (21-32); CHLORIDE LEVEL 111 MEQ/L (98-107); CREATININE FOR GFR 0.84 MG/DL (0.55-1.30); GLOMERULAR FILTRATION RATE > 60.0 (>58); GLUCOSE, FASTING 103 MG/DL (70-100); POTASSIUM SERUM 3.7 MEQ/L (3.5-5.1); SODIUM LEVEL 142 MEQ/L (136-145); TOTAL PROTEIN 7.1 GM/DL (6.4-8.2)
== END ==
LOC: M SFHCADAM 09:47
PROVIDERS: ATTEND Family Medicine
DX: R35.0 Frequency of micturition (principal); C50.919 Malignant neoplasm of unspecified site of unspecified female breast

== ENCOUNTER → 2019-04-19 | Outpatient (CLI) | payer OTHER | LOC: M PLALAB 15:13 | PROVIDERS: ATTEND Surgery | DX: Z13.79 Encounter for other screening for genetic and chromosomal anomalies (principal) ==

== ENCOUNTER → 2019-05-03 | Outpatient (CLI) | payer OTHER ==
[~2019-05-03] MED LIST changes: -ARTIDRO2 OU; +ATIV1TAB10 PO; +CEPH500C PO; +MELO15TA28 PO; +POLYOPD OU; +PROHANCE 279.3MG/ML 15ML VIAL (A9576) As Ordered ONE; +PROHANCE 279.3MG/ML 5ML VIAL (A9576) As Ordered ONE; -ROPI1TAB PO; +ROPI1TAB3 PO; +VITA500079 PO
--- NOTE | 2019-05-03 18:04 | REP ---
Bilateral breast MRI study without and with IV gadolinium: History: Malignant neoplasm of the lower inner quadrant right breast. Comparison mammography March 24, 2019 and post biopsy imaging April 06, 2019. The patient underwent ultrasound-guided needle biopsy right breast mass April 06, 2019. Technique: Three Divya MRI imaging was performed with a dedicated breast coil. Axial, coronal, and sagittal T1 and T2-weighted scans were obtained with and without fat saturation in the usual fashion. The study includes dynamically acquired post gadolinium enhanced imaging subtraction imaging. Maximal intensity projection and multiplanar re-formation imaging is included as well. The study was interpreted with the aid of WakoopaD, an FDA approved computer-aided detection (CAD) software program, on a dedicated breast MRI work station. The gadolinium enhancement dose is 20 ml of intravenous ProHance. Findings: There is a moderate pattern of fibroglandular tissue the breast parenchyma bilaterally. Magnetic field susceptibility artifact is seen emanating from sternotomy wires. There is no evidence of axillary lymphadenopathy on either side. No internal mammary adenopathy is appreciated. There are innumerable foci of T2 hyperintensity distributed throughout the breast parenchyma bilaterally consistent with multiple small breast cysts bilaterally. The biopsy proven malignancy is seen as a mass in the inferomedial quadrant of the right breast. This shows irregular spiculated margins and heterogeneous pattern of enhancement. It measures 2.2 x 2.4 x 1.6 cm in diameter. It contains a marker clip post biopsy artifact. On dynamic postcontrast images, there is a heterogeneous pattern of enhancement with extensive areas of plateau and washout kinetics. There are asymmetric prominent draining venous channels in the right breast. There is a mild to moderate pattern of background parenchymal enhancement. No other suspicious morphologic abnormality is seen. No other suspicious focus of enhancement and/or washout on dynamically acquired post contrast images. Impression: BIRADS category six known right breast malignancy. No evidence of axillary or internal mammary adenopathy. No other suspicious abnormality seen in either breast. Numerous small sub-centimeter breast cysts. Prominent draining veins associated with the known malignancy on the right. Electronically Signed by Justin Tucker MD 05/03/2019 08:02 P
== END ==
LOC: M RAD 13:52
PROVIDERS: ATTEND Surgery
DX: C50.911 Malignant neoplasm of unspecified site of right female breast (principal)
CPT/HCPCS: A9576; C8908

== ENCOUNTER 2019-05-18 18:46 | Inpatient (IN) | payer OTHER ==
[~2019-05-18] VITALS: Ht 165.1 cm; Wt 116.7 kg
[~2019-05-18 18:46] MED LIST changes: -PROHANCE 279.3MG/ML 15ML VIAL (A9576) As Ordered ONE; -PROHANCE 279.3MG/ML 5ML VIAL (A9576) As Ordered ONE
--- NOTE | 2019-05-18 19:32 | HPEPDOC ---
[facility] Medical History & Physical Date of Admission May 18, 2019 Date of Service: May 18, 2019 Attending Physician: ALEXIA TORRES MD History and Physical TIME OF SERVICE: 8:20 PM CHIEF COMPLAINT: Left breast pain and swelling HISTORY OF PRESENT ILLNESS: This is a 39-year-old female who presented to Dr. Kaur's day office with complaints of 6 /10 in severity left breast pain, swelling, and purple discoloration that began this morning associated with bloody discharge from the incision site. She was recently diagnosed with right-sided breast cancer and had a lumpectomy and lymph node dissection yesterday [place]; she was unable to drive to [place] today because the drive was about an hour away. She is also complaining of feeling tired, but doesn't think her myasthenia is acting up. REVIEW OF SYSTEMS: 12 point review of systems negative except as listed in HPI PAST MEDICAL/ SURGICAL HISTORY: Stage II, ER positive, IN positive, HER-2 negative, invasive ductal carcinoma of the right breast status post lumpectomy and lymph node dissection Status post total abdominal hysterectomy with retained ovaries. Myasthenia gravis Status post thymectomy Fibromyalgia. GERD. Depression. ADD OPHELIA with CPAP. Hearing loss. Mild mitral regurgitation. Status post cholecystectomy Status post tubal ligation. Status post bladder stimulator placement and resection SOCIAL HISTORY: Former smoker FAMILY HISTORY: Testicular cancer Uterine cancer Lung cancer. Colon cancer. Rectal cancer. Breast cancer affecting multiple family members. Ovarian cancer Alzheimer's ALLERGIES: Please see below. HOME MEDICATIONS: Please see below. PHYSICAL EXAMINATION: Vital Signs Date Time Temp Pulse Resp B/P (MAP) Pulse Ox O2 Delivery O2 Flow Rate FiO2 05/18/19 19:40 98.2 67 20 155/89 (111) 99 Room Air 05/18/19 23:05 2 GEN: Obese / well developed/ flat affect INTEGUMENT: the right breast is purple in color and enlarged compared to the left breast, it is warm and tender on palpation / she has maynard from cutting on her left lower arm HEENT: NCAT / lips acyanotic /mucus membranes moist and pink CVS: RRR/NMRG LUNGS: / lungs are clear to auscultation bilaterally on room air ABDOMEN: Contour ( obese) / soft & not tender with palpation MSK/EXTREMITIES: range of motion intact in all 4 extremities NEURO: CN 2-12 are grossly intact / speech is not dysarthric PSYCH: alert and oriented to person place and time/ able to understand and follow all commands LABORATORY DATA: 05/18/19 19:54 ASSESSMENT: Ms. Taylor is a 39-year-old female with a past medical history of right-sided invasive ductal carcinoma, myasthenia gravis, fibromyalgia, depression, ADD, and multiple surgeries, who is admitted for management of a right breast hematoma. PLAN: 1. Right breast hematoma. Plan: Admit to medical floor/follow-up with Dr. Kaur for evacuation of hematoma and drain placement today/ will order perioperative antibiotics / f/u serial Hg 2. Myasthenia gravis. Plan: Per discussion with Dr. Yusuf we will continue with her current doses of CellCept & Mestinon 3. Fibromyalgia - Plan: c/w home meds 4. GERD. - Plan: c/w home meds 5. Depression. - Plan: c/w home meds 6. ADD - Plan: c/w home meds 7. OPHELIA with CPAP. - Plan: may use own CPAP DVT PROPHYLAXIS: SCDs DISPOSITION: home [facility] after more than 2 midnight's stay Home Medications Scheduled Acyclovir (Acyclovir) 400 Mg Tab, 400 MG PO BID Baclofen (Baclofen) 10 Mg Tablet, 10 MG PO TID Cholecalciferol (Vitamin D3) (Vitamin D3) 125 Mcg Capsule, 125 MCG PO DAILY Clozapine (Clozapine) 100 Mg Tablet, 100 MG PO QHS Dextroamphetamine/Amphetamine (Adderall 20 mg Tablet) 20 Mg Tablet, 20 MG PO BID MORNING AND NOON Docusate Sodium (Docusate Sodium) 100 Mg Capsule, 100 MG PO DAILY Ferrous Sulfate (Ferrous Sulfate) 325 Mg Tablet, 325 MG PO DAILY Folic Acid (Folic Acid) 1 Mg Tab, 1 MG PO DAILY Furosemide (Furosemide) 20 Mg Tablet, 20 MG PO DAILY Lorazepam (Ativan) 0.5 Mg Tablet, 0.5 MG PO QHS Meloxicam (Meloxicam) 15 Mg Tablet, 15 MG PO QHS Mirabegron (Myrbetriq) 50 Mg Tab, 50 MG PO DAILY Mycophenolate Mofetil (Cellcept) 500 Mg Tab, 1,000 MG PO TID Naltrexone HCl (Naltrexone HCl) 50 Mg Tablet, 50 MG PO DAILY Omeprazole (Omeprazole) 20 Mg Capsule.dr, 20 MG PO DAILY Pyridostigmine [place] (Mestinon) 60 Mg Tab, 90 MG PO QID Ramelteon (Rozerem) 8 Mg Tablet, 8 MG PO QHS Ropinirole HCl (Ropinirole HCl) 0.25 Mg Tablet, 0.25 MG PO DAILY Ropinirole HCl (Ropinirole HCl) 2 Mg Tablet, 2 MG PO QHS Venlafaxine HCl (Venlafaxine HCl ER) 75 Mg Cap.er.24h, 225 MG PO DAILY Zaleplon (Zaleplon) 10 Mg Capsule, 10 MG PO QHS Scheduled PRN Hydrocodone/Acetaminophen (Peck 5-325 Tablet) 1 Each Tablet, 1 TAB PO Q6H PRN for PAIN Polyvinyl Alcohol (Artificial Tears) 15 Ml Drops, 1 DROP OU QID PRN for DRY EYES Allergies Coded Allergies: amitriptyline (Verified Allergy, Severe, SWELLING, 07/12/18) Grass (Verified Allergy, Mild, ITCHY EYES,NOSE, 12/17/17) TREES (Verified Allergy, Mild, ITCHY EYES,NOSE, 12/17/17) TAPE (Verified Allergy, Unknown, RASH/BLISTER, 07/12/18) bupropion (Verified Allergy, Unknown, ESOPHAGEAL SPASMS, 07/12/18) metaxalone (Verified Allergy, Unknown, itching, 07/12/18) minocycline (Verified Allergy, Unknown, 07/12/18) mold (Verified Allergy, Unknown, 07/12/18) pregabalin (Verified Allergy, Unknown, EDEMA, 07/12/18) tizanidine (Verified Allergy, Unknown, ITCHING, 07/12/18) trazodone (Verified Allergy, Unknown, EDEMA, 07/12/18) valproic acid (Verified Allergy, Unknown, DOES NOT METABOLIZE, 07/12/18) banana (Verified Adverse Reaction, Unknown, VOMITING, 07/12/18) benztropine (Verified Adverse Reaction, Unknown, BLURRED VISION, 08/31/18) clindamycin (Verified Adverse Reaction, Unknown, HEART BURN, 07/12/18) cyclobenzaprine (Verified Adverse Reaction, Unknown, IRRITABILITY, 07/12/18) gabapentin (Verified Adverse Reaction, Unknown, extreme weakness, 08/31/18) sulfamethoxazole (Verified Adverse Reaction, Unknown, DIARRHEA, 07/12/18) trimethoprim (Verified Adverse Reaction, Unknown, DIARRHEA, 07/12/18) vilazodone (Verified Adverse Reaction, Unknown, MOOD CHANGES, 08/31/18) A-FIB/CHADSVASC A-FIB History Current/History of A-Fib/PAF?: No Current PO Anticoag Therapy: No ALEXIA TORRES MD May 18, 2019 19:32
[2019-05-18 19:40] VITALS: BP 155/89
[2019-05-18 20:08] LABS: HEMATOCRIT 35.3 % (36.0-47.0); HEMOGLOBIN 11.5 g/dl (12.0-15.5); MEAN CORPUSCULAR HEMOGLOBIN 29.2 pg (27.0-33.0); MEAN CORPUSCULAR HGB CONC 32.6 g/dl (32.0-36.5); MEAN CORPUSCULAR VOLUME 89.6 fl (80.0-96.0); PLATELET COUNT, AUTOMATED 260 10^3/uL (150-450); RED BLOOD COUNT 3.94 10^6/uL (4.00-5.40); WHITE BLOOD COUNT 9.8 10^3/uL (4.0-10.0)
[2019-05-18] MEDS ORDERED: PIPERACILLIN/TAZOBACTAM SOD 2.25 GM in D5W MINI-BAG PLUS 50 ML IV ONE (20:15)
[2019-05-18 20:40] LABS: ALBUMIN 3.8 GM/DL (3.2-5.2); ALT/SGPT 23 U/L (12-78); BILIRUBIN,TOTAL 0.2 MG/DL (0.2-1.0); BLOOD UREA NITROGEN 12 MG/DL (7-18); CALCIUM LEVEL 8.5 MG/DL (8.5-10.1); CARBON DIOXIDE LEVEL 25 MEQ/L (21-32); CHLORIDE LEVEL 109 MEQ/L (98-107); CREATININE FOR GFR 0.78 MG/DL (0.55-1.30); GLOMERULAR FILTRATION RATE > 60.0 (>58); GLUCOSE, FASTING 94 MG/DL (70-100); POTASSIUM SERUM 3.5 MEQ/L (3.5-5.1); SODIUM LEVEL 140 MEQ/L (136-145); TOTAL PROTEIN 6.7 GM/DL (6.4-8.2)
--- NOTE | 2019-05-18 21:21 | CR.PDOC ---
Plastic Surgery Consultation Date of Consultation 05/18/19 History and Physical CONSULT REPORT FOR: REASON FOR CONSULTATION: Right breast hematoma after recent surgery HISTORY OF PRESENT ILLNESS: Ms Taylor is a 39 -year-old lady with past medical history of myasthenia gravis recent diagnosis of right breast cancer. Patient had the right breast lumpectomy and right sentinel lymph node biopsy done yesterday (05/17/2019) done at [facility]. This morning around 10 she noted increasing swelling in her right breast. She called her surgeon at [facility] around 4 PM to let them know that her breast is swollen. Unfortunately, her surgeons an hour away and she could not be seen today. I was asked to see a patient and evaluate her. Patient reports right breast pain 7 out of 10. Past meal was at 2 PM and it was a dominant PAST MEDICAL HISTORY: GERD, myasthenia gravis(follows with neurology), depression, ADD, fibromyalgia, OPHELIA with CPAP, mild mitral regurgitation, infiltrating ductal carcinoma of the right breast, lymphedema of the legs, ovarian cyst PAST SURGICAL HISTORY: INCLUDES: Right breast lumpectomy and right sentinel lymph node biopsy 05/17/2019, cholecystectomy 2004, tubal ligation 2009, 2006, thymectomy (for myas thenia gravis) 2004, PRK surgery bilaterally, [employer] InterStim for bladder 2016, InterStim removal 2017, lap assisted hysterectomy. 2019 right breast biopsy March 2019 ALLERGIES: Please see below. FAMILY HISTORY: Father diagnosed with diabetes and hypertension, mother alive, sibling alive with asthma and diabetes, maternal grandfather: Cancer, Alzheimer's, unknown cancer, maternal grandmother with lung cancer and other malignancy, paternal grandfather with diabetes, maternal grandparent and with breast cancer, ovarian cancer. No known family history of any urological related disease/cancer HOME MEDICATIONS: Please see below. REVIEW OF SYSTEMS: GENERAL: Reports pain in the right breast, not feeling well. CARDIOVASCULAR: mitral regurg MUSCULOSKELETAL: myastenia gravis SKIN: patient has numerous cut maynard NEUROLOGIC: myasthenia gravis, on Mestinon and Cellcept PSYCHIATRIC: depression, ADD, fibromyalgia. PULMONARY: OPHELIA GASTROINTESTINAL: GERD GENITOURINARY:bladder issues PHYSICAL EXAMINATION: VITALS SIGNS: Please see below. GENERAL APPEARANCE: Alert and oriented, in mild distress due to pain SKIN: Skin of the right breast with severe ecchymosis BREAST: Right breast status post lumpectomy and right sentinel lymph node biopsy. There are 2 incisions, one in the inframammary fold close with the stitches, one in the axilla close with the stitches. The skin over right breast is severely ecchymotic the right breast is enlarged and firm. Ultrasound examination of the right breast shows free fluid in the cavity HEENT: Oral mucosa moist NECK: Supple LUNGS: Breathing comfortably on room air HEART:RR, not tachycardic ABDOMEN: nondistended EXTREMITIES: good range of motion in upper extremities. Patient is able to ambulate without assistance. LABORATORY DATA: Please see below. IMPRESSION: RIGHT BREAST CANCER S/P RIGHT LUMPECTOMY AND RIGHT SENTINEL LYMPH NODE BX 05/17/2019 POD1 RIGHT BREAST HEMATOMA Myastenia Gravis OPHELIA GERD PLANS: - admitted directly from the office - NPO - IVF - pain control - STAT labs CBC/BMP - to OR tonight to evacuate hematoma and drain placement - consent will be obtained in preop - I greatly appreciate medicine team input Vital Signs HR 73/min BP 136/84 mm Hg RR 18 Temp 98.0 O2 sats 99 [id number] ht 65 in Laboratory Data Labs 24H Laboratory Tests 2 05/18/19 19:54: Nucleated Red Blood Cells % (auto) 0.0, Anion Gap 6L, Glomerular Filtration Rate > 60.0, Lactic Acid Level 0.9, Calcium Level 8.5, Total Bilirubin 0.2, Aspartate Amino Transf (AST/SGOT) 27, Alanine Aminotransferase (ALT/SGPT) 23, Alkaline Phosphatase 89, Total Protein 6.7, Albumin 3.8, Albumin/Globulin Ratio 1.31 CBC/BMP Laboratory Tests 05/18/19 19:54 Microbiology Microbiology 05/18/19 Blood Culture, Received Pending Home Medications Scheduled Acyclovir (Acyclovir) 400 Mg Tab, 400 MG PO BID, (Reported) Baclofen (Baclofen) 10 Mg Tablet, 20 MG PO TID for back pain Cephalexin (Cephalexin) 500 Mg Capsule, 500 MG PO TID, (Reported) Cholecalciferol (Vitamin D3) (Vitamin D3) 5,000 Unit Tab.rapdis, 1 TAB PO DAILY, (Reported) Clozapine (Clozapine) 25 Mg Tablet, 75 MG PO QHS for mood Dextroamphetamine/Amphetamine (Adderall Xr 15 mg Capsule) 15 Mg Cap.er.24h, 15 MG PO BID, (Reported) TAKES QAM AND NOON Folic Acid (Folic Acid) 1 Mg Tab, 1 MG PO DAILY, (Reported) Meloxicam (Meloxicam) 15 Mg Tablet, 1 TAB PO DAILY, (Reported) Mirabegron (Myrbetriq) 50 Mg Tab, 50 MG PO DAILY, (Reported) Mycophenolate Mofetil (Cellcept) 500 Mg Tab, 1,000 MG PO TID, (Reported) Omeprazole (Omeprazole) 20 Mg Capsule.dr, 20 MG PO DAILY, (Reported) Pyridostigmine [place] (Mestinon) 60 Mg Tab, 90 MG PO QID, (Reported) Ramelteon (Ramelteon) 8 Mg Tablet, 8 MG PO QHS for sleep Ropinirole HCl (Ropinirole HCl) 1 Mg Tab, 2 MG PO QHS, (Reported) Ropinirole HCl (Ropinirole HCl) 0.25 Mg Tablet, 0.25 MG PO QAM, (Reported) Venlafaxine HCl (Venlafaxine HCl ER) 75 Mg Cap.er.24h, 225 MG PO DAILY for mood Miscellaneous Medications Lorazepam (Ativan) 0.5 Mg Tablet, 0.5 MG PO, (Reported) Allergies Coded Allergies: amitriptyline (Verified Allergy, Severe, SWELLING, 07/12/18) Grass (Verified Allergy, Mild, ITCHY EYES,NOSE, 12/17/17) TREES (Verified Allergy, Mild, ITCHY EYES,NOSE, 12/17/17) TAPE (Verified Allergy, Unknown, RASH/BLISTER, 07/12/18) bupropion (Verified Allergy, Unknown, ESOPHAGEAL SPASMS, 07/12/18) metaxalone (Verified Allergy, Unknown, itching, 07/12/18) minocycline (Verified Allergy, Unknown, 07/12/18) mold (Verified Allergy, Unknown, 07/12/18) pregabalin (Verified Allergy, Unknown, EDEMA, 07/12/18) propranolol (Verified Allergy, Unknown, 07/12/18) tizanidine (Verified Allergy, Unknown, ITCHING, 07/12/18) trazodone (Verified Allergy, Unknown, EDEMA, 07/12/18) valproic acid (Verified Allergy, Unknown, DOES NOT METABOLIZE, 07/12/18) banana (Verified Adverse Reaction, Unknown, VOMITING, 07/12/18) benztropine (Verified Adverse Reaction, Unknown, BLURRED VISION, 08/31/18) clindamycin (Verified Adverse Reaction, Unknown, HEART BURN, 07/12/18) cyclobenzaprine (Verified Adverse Reaction, Unknown, IRRITABILITY, 07/12/18) gabapentin (Verified Adverse Reaction, Unknown, extreme weakness, 08/31/18) sulfamethoxazole (Verified Adverse Reaction, Unknown, DIARRHEA, 07/12/18) trimethoprim (Verified Adverse Reaction, Unknown, DIARRHEA, 07/12/18) vilazodone (Verified Adverse Reaction, Unknown, MOOD CHANGES, 08/31/18) ALBA SIMONS DO May 18, 2019 21:21
[2019-05-18] MEDS ORDERED: ceFAZolin 1GM INJ (J0690 PER 500MG) As Ordered ONE (21:33)
[2019-05-18] MEDS ORDERED: LIDOCAINE 2% INJ 100 MG/5 ML SDV (FOR ANES.) As Ordered ONE (21:42)
[2019-05-18] MEDS ORDERED: fentaNYL 100 MCG/2 ML INJECTION (J3010) As Ordered ONE ×3 (21:42→23:08)
[2019-05-18] MEDS ORDERED: propofoL 200 MG/20 ML VIAL As Ordered ONE (21:42)
[2019-05-18] MEDS ORDERED: dexameTHASONE 4 MG/ML 1ML VIAL (J1100) As Ordered ONE (21:50)
[2019-05-18] MEDS ORDERED: ONDANSETRON 4MG/2ML VIAL (J2405) As Ordered ONE (21:50)
[2019-05-18] MEDS ORDERED: SEVOFLURANE INHAL SOLN 250 ML BTL As Ordered ONE (22:02)
[2019-05-18] MEDS ORDERED: BUPIVACAINE HCL 0.25% 30 ML VIAL As Ordered ONE (22:16)
[2019-05-18] MEDS ORDERED: LIDOCAINE 1% SDV INJ 30 ML VIAL As Ordered ONE (22:16)
[2019-05-18] MEDS ORDERED: METOCLOPRAMIDE INJ 10MG/2ML VIAL (J2765) As Ordered ONE (22:24)
[2019-05-18] MEDS: fentaNYL 100 MCG/2 ML INJECTION (J3010) IV PRN ×4 (23:09→23:30)
[2019-05-18] MEDS ORDERED: LR 1,000 ML IV SCH (23:15)
[2019-05-18] MEDS ORDERED: PERCOCET 5MG/325MG TAB PO PRN (23:15)
[2019-05-18] MEDS ORDERED: ONDANSETRON 4MG/2ML VIAL (J2405) IV PRN (23:15)
[2019-05-18] MEDS ORDERED: MORPHINE 2 MG/ML 1ML VIAL (J2270) IV PRN (23:30)
[2019-05-18] MEDS ORDERED: oxyCODONE 5MG TAB PO PRN (23:30)
[2019-05-19] VITALS (12 sets, daily range): BP systolic 106–144; BP diastolic 60–90; O2SAT 96–98
[2019-05-19] MEDS ORDERED: PYRIDOSTIGMINE 60 MG TAB PO ONE (00:15)
[2019-05-19] MEDS ORDERED: MYCOPHENOLATE MOFETIL 250 MG CAP (J7517) PO ONE (00:15)
[2019-05-19] MEDS ORDERED: D 50CAP3 PO (00:23)
[2019-05-19] MEDS ORDERED: MELO15TA28 PO (00:23)
[2019-05-19] MEDS ORDERED: BACL10TA2 PO (00:23)
[2019-05-19] MEDS ORDERED: CLOZ100T2 PO (00:23)
[2019-05-19] MEDS ORDERED: ADDE20TA PO (00:23)
[2019-05-19] MEDS: LR 1,000 ML IV SCH ×3 (00:29→14:05)
[2019-05-19] MEDS ORDERED: ROZE8TAB16 PO (00:32)
[2019-05-19] MEDS ORDERED: FURO20TA2 PO (00:32)
[2019-05-19] MEDS ORDERED: FERR1TAB8 PO (00:32)
[2019-05-19] MEDS ORDERED: ROPI2TAB3 PO (00:32)
[2019-05-19] MEDS ORDERED: POLYOPD OU (00:32)
[2019-05-19] MEDS ORDERED: DOCU100C17 PO (00:32)
[2019-05-19] MEDS ORDERED: NORC1TAB7 PO (00:32)
[2019-05-19] MEDS ORDERED: VENL75CA2 PO (00:32)
[2019-05-19] MEDS ORDERED: ZALE10CA PO (00:32)
[2019-05-19] MEDS ORDERED: NALT50TA4 PO (00:32)
[2019-05-19] MEDS ORDERED: POLYVINYL ALCOHOL OPHTH SOLN 15 ML(LIQUITEARS) OU PRN (01:00)
[2019-05-19] MEDS: VITAMIN D 1,000 INTERNATIONAL UNITS TABLET PO SCH ×2 (01:51→22:47)
[2019-05-19] MEDS: RAMELTEON 8 MG TAB (ROZEREM) PO SCH ×2 (01:51→22:46)
[2019-05-19] MEDS: PYRIDOSTIGMINE 60 MG TAB PO SCH ×5 (01:52→22:46)
[2019-05-19] MEDS: MELOXICAM (MOBIC) 7.5 MG TAB PO SCH ×2 (01:52→22:46)
[2019-05-19] MEDS: ACYCLOVIR 200 MG CAPSULE PO SCH ×3 (01:52→22:47)
[2019-05-19] MEDS: MYCOPHENOLATE MOFETIL 250 MG CAP (J7517) PO SCH ×4 (01:53→22:45)
[2019-05-19] MEDS: cloZAPine 100 MG TAB (S0136) PO SCH ×2 (01:53→22:45)
[2019-05-19] MEDS: LORazepam 0.5 MG TAB PO SCH ×2 (01:53→22:46)
[2019-05-19] MEDS ORDERED: ceFAZolin SOD 2 GM in IV 1 EA IV ONE (06:00)
[2019-05-19 06:07] LABS: HEMATOCRIT 35.4 % (36.0-47.0); HEMOGLOBIN 11.3 g/dl (12.0-15.5); MEAN CORPUSCULAR HEMOGLOBIN 28.3 pg (27.0-33.0); MEAN CORPUSCULAR HGB CONC 31.9 g/dl (32.0-36.5); MEAN CORPUSCULAR VOLUME 88.7 fl (80.0-96.0); PLATELET COUNT, AUTOMATED 263 10^3/uL (150-450); RED BLOOD COUNT 3.99 10^6/uL (4.00-5.40); WHITE BLOOD COUNT 9.4 10^3/uL (4.0-10.0)
[2019-05-19 06:36] LABS: BLOOD UREA NITROGEN 10 MG/DL (7-18); CALCIUM LEVEL 7.9 MG/DL (8.5-10.1); CARBON DIOXIDE LEVEL 24 MEQ/L (21-32); CHLORIDE LEVEL 113 MEQ/L (98-107); CREATININE FOR GFR 0.75 MG/DL (0.55-1.30); GLOMERULAR FILTRATION RATE > 60.0 (>58); GLUCOSE, FASTING 126 MG/DL (70-100); POTASSIUM SERUM 3.9 MEQ/L (3.5-5.1); SODIUM LEVEL 142 MEQ/L (136-145)
--- NOTE | 2019-05-19 07:52 | IPNPDOC ---
Subjective General Date Seen: May 19, 2019 Subject Chief Complaint/History The patient is a 39-year-old female admitted with right breast hematoma s/p R breast lumpectomy and right breast SLNBx on 05/17/2019 s/p evacuation of Right breast hematoma, exploration of right axilla and drain placement in the right breast 05/18/2019 Since the surgical procedure. Patient is doing well. She states that she has less pain. AFIA drain since the procedure was only 20 mL sanguinous. Patient states that she was able to tolerate some crackers last night and she was able to void. There is no nausea or vomiting. Her pain is well-controlled with oral medications. Current Medications Current Medications Current Medications Medications (Trade) Dose Ordered Sig/Ben Route PRN Reason Start Time Stop Time Status Last Admin Dose Admin Acetaminophen (Tylenol Tab) 500 mg Q4HP PRN PO PAIN 1-5 05/18/19 23:30 Acetaminophen/ Hydrocodone Bitart ([place], Anexsia 5/325) 1 tab Q6H PRN PO PAIN 05/19/19 01:00 Acyclovir (Zovirax) 400 mg BID PO 05/19/19 01:00 05/19/19 01:52 Amphetamine/ Dextroamphetamine (Adderall) 20 mg BID@0800,1400 PO 05/19/19 08:00 Artificial Tears (Akwa Tears) 1 drop QID PRN OU DRY EYES 05/19/19 01:00 Baclofen (Lioresal) 10 mg TID PO 05/19/19 09:00 Clozapine (Clozaril) 100 mg QHS PO 05/19/19 01:00 05/19/19 01:53 Docusate Sodium (Colace) 100 mg DAILY PO 05/19/19 09:00 Fentanyl Citrate (Sublimaze) 25 mcg Q5MP PRN IV PAIN LEVEL 5-10 05/18/19 23:15 05/18/19 23:38 DC 05/18/19 23:30 Ferrous Sulfate (Ferrous Sulfate) 325 mg DAILY PO 05/19/19 09:00 Folic Acid (Folic Acid) 1 mg DAILY PO 05/19/19 09:00 Furosemide (Lasix) 20 mg DAILY PO 05/19/19 09:00 Home Med (Med Rec Complete!) ASDIRECTED XX 05/19/19 00:45 05/19/19 00:34 DC Lactated Ringer's 1,000 ml @ 80 mls/hr [id number] IV 05/18/19 23:15 05/19/19 00:15 DC Lactated Ringer's 1,000 ml @ 120 mls/hr Q8H20M IV 05/18/19 20:15 05/19/19 05:36 Lorazepam (Ativan) 0.5 mg QHS PO 05/19/19 01:00 05/19/19 01:53 Meloxicam (Mobic) 15 mg QHS PO 05/19/19 01:00 05/19/19 01:52 Miscellaneous (Unresolved Patient Own Med Order) SEE LABEL COMMENTS DAILY XX 05/19/19 09:00 Morphine Sulfate (Morphine Sulfate Inj) 2 mg Q2HP PRN IV BREAKTHROUGH PAIN 05/18/19 23:30 Mycophenolate Mofetil (Cellcept) 1,000 mg TID PO 05/18/19 21:00 05/19/19 01:53 Naltrexone HCl (Revia) 50 mg DAILY PO 05/19/19 09:00 Omeprazole (PriLOSEC) 20 mg DAILY PO 05/19/19 09:00 Ondansetron HCl (ZOFRAN INJection) 4 mg Q4HP PRN IV NAUSEA OR VOMITING 05/18/19 23:15 05/19/19 00:15 DC Oxycodone HCl (Roxicodone, Oxyir) 5 mg Q4HP PRN PO PAIN 6-10 05/18/19 23:30 05/19/19 05:36 Oxycodone/ Acetaminophen (Percocet 5mg/ 325mg Tablet) 1 tab ASDIRECTED PRN PO PAIN LEVEL 1-4 05/18/19 23:15 05/19/19 00:15 DC Patient Own Medication (Patient'S Own Med) MYRBETRIQ 50MG DAILY DAILY PO 05/19/19 09:00 UNV Pyridostigmine [place] (Mestinon) 90 mg QID PO 05/18/19 21:00 05/19/19 01:52 Ramelteon (Rozerem) 8 mg QHS PO 05/18/19 21:00 05/19/19 01:51 Ropinirole HCl (Requip) 0.25 mg DAILY PO 05/19/19 09:00 Venlafaxine HCl (Effexor Xr) 225 mg DAILY PO 05/19/19 09:00 Vitamin D (Vitamin D) 2,000 units QHS PO 05/18/19 21:00 05/19/19 01:51 Allergies Coded Allergies: amitriptyline (Verified Allergy, Severe, SWELLING, 07/12/18) Grass (Verified Allergy, Mild, ITCHY EYES,NOSE, 12/17/17) TREES (Verified Allergy, Mild, ITCHY EYES,NOSE, 12/17/17) TAPE (Verified Allergy, Unknown, RASH/BLISTER, 07/12/18) bupropion (Verified Allergy, Unknown, ESOPHAGEAL SPASMS, 07/12/18) metaxalone (Verified Allergy, Unknown, itching, 07/12/18) minocycline (Verified Allergy, Unknown, 07/12/18) mold (Verified Allergy, Unknown, 07/12/18) pregabalin (Verified Allergy, Unknown, EDEMA, 07/12/18) tizanidine (Verified Allergy, Unknown, ITCHING, 07/12/18) trazodone (Verified Allergy, Unknown, EDEMA, 07/12/18) valproic acid (Verified Allergy, Unknown, DOES NOT METABOLIZE, 07/12/18) banana (Verified Adverse Reaction, Unknown, VOMITING, 07/12/18) benztropine (Verified Adverse Reaction, Unknown, BLURRED VISION, 08/31/18) clindamycin (Verified Adverse Reaction, Unknown, HEART BURN, 07/12/18) cyclobenzaprine (Verified Adverse Reaction, Unknown, IRRITABILITY, 07/12/18) gabapentin (Verified Adverse Reaction, Unknown, extreme weakness, 08/31/18) sulfamethoxazole (Verified Adverse Reaction, Unknown, DIARRHEA, 07/12/18) trimethoprim (Verified Adverse Reaction, Unknown, DIARRHEA, 07/12/18) vilazodone (Verified Adverse Reaction, Unknown, MOOD CHANGES, 08/31/18) Objective Physical Examination Examination GENERAL APPEARANCE:Patient seen, laying in bed, awake, alert, and oriented. Comfortable, in no acute distress. SKIN: Warm and moist. BREAST: Right is softer than preop, majority of right breast is ecchymotic with some traction down to the abdomen, mildly tender on palpation, inframammary and axillary incisions intact. AFIA drains: 20cc/24 hr. HEENT: Lips and mucosa appear moist LUNGS: Breathing comfortably on room air HEART: Regular rate. No tachycardia ABDOMEN: Abdomen soft, nondistended AFIA drains with sanguinous drainage. 20 cc/24hr each drain. EXTREMITIES: No visible edema in upper extremities Vital Signs Vital Signs Date Time Temp Pulse Resp B/P (MAP) Pulse Ox O2 Delivery O2 Flow Rate FiO2 05/19/19 06:06 68 16 97 Room Air 05/19/19 05:00 98.1 134/84 (101) 05/18/19 23:35 2 I&Os I&O- Last 24 Hours up to 6 AM 05/19/19 06:00 Intake Total 1320 ml Output Total 105 ml Balance 1215 ml Laboratory Data Labs 24H Laboratory Tests 2 05/18/19 19:54: Nucleated Red Blood Cells % (auto) 0.0, Anion Gap 6L, Glomerular Filtration Rate > 60.0, Lactic Acid Level 0.9, Calcium Level 8.5, Total Bilirubin 0.2, Aspartate Amino Transf (AST/SGOT) 27, Alanine Aminotransferase (ALT/SGPT) 23, Alkaline Phosphatase 89, Total Protein 6.7, Albumin 3.8, Albumin/Globulin Ratio 1.31 05/19/19 05:43: Nucleated Red Blood Cells % (auto) 0.0, Anion Gap 5L, Glomerular Filtration Rate > 60.0, Calcium Level 7.9L CBC/BMP Laboratory Tests 05/18/19 19:54 05/19/19 00:41 05/19/19 05:43 Microbiology Microbiology 05/18/19 Gram Stain, Received Pending 05/18/19 Wound Culture, Received Pending 05/18/19 Anaerobic Culture, Received Pending 05/18/19 Blood Culture, Received Pending Impression 39 -year-old woman with myasthenia gravis and recent history of right breast cancer. Status post right breast lumpectomy and right sentinel lymph node biopsy done at [place] on 05/17/2019 who developed right breast hematoma yesterday requiring OR exploration of right breast lumpectomy and right axilla, evacuation of right breast hematoma and right breast drain placement done on 05/18/2019. - Admitted to medicine/I greatly appreciate medical team help with numerous medical issues with this patient has - Monitor right AFIA output, drain Per protocol - Monitor labs, especially hemoglobin - Follow up on wound culture and clot cultures, continue antibiotics until cultures are negative - Pain control - Regular diet - ok to DC fluids if patient has adequate by mouth intake - I will be changing patient's dressing as needed with Xeroform. Please have it available by bedside - VTE prophylaxis with sequential compression devices, no heparin please as patient has increased risk of bleeding - continue pulmonary toilet with Incentive spirometer - will keep in house today to continue to monitor and to assess need for outpatient abx - case discussed with nursing staff. Plan / VTE VTE Prophylaxis Ordered?: Yes VTE Exclusion Pharmacological: Bleeding Risk ALBA SIMONS DO May 19, 2019 07:52
[2019-05-19] MEDS: ADDERALL 5 MG TAB PO SCH ×2 (08:25→14:01)
[2019-05-19] MEDS: FERROUS SULFATE 325MG TAB PO SCH (08:27)
[2019-05-19] MEDS: OMEPRAZOLE 20 MG CAP PO SCH (08:27)
[2019-05-19] MEDS: FOLIC ACID 1 MG TAB PO SCH (08:27)
[2019-05-19] MEDS: VENLAFAXINE **XR** 75MG CAPSULE PO SCH (08:27)
[2019-05-19] MEDS: FUROSEMIDE 20 MG TAB PO SCH (08:28)
[2019-05-19] MEDS: BACLOFEN 10 MG TAB PO SCH ×3 (08:28→22:46)
[2019-05-19] MEDS: rOPINIRole 0.25 MG TAB(REQUIP) PO SCH (08:28)
[2019-05-19] MEDS: NALTREXONE 50 MG TAB PO SCH (08:28)
[2019-05-19] MEDS ORDERED: ENTER DRUG NAME HERE (PATIENT'S OWN MED) PO SCH (09:00)
[2019-05-19] MEDS ORDERED: DOCUSATE SODIUM 100 MG CAP PO SCH ×2 (09:00→21:00)
[2019-05-19] MEDS: NORCO, ANEXSIA 5/325MG TABLET (HYDROcodone/ACETAMINOPHEN) PO PRN ×2 (11:29→22:47)
--- NOTE | 2019-05-19 11:40 | IPNPDOC ---
Subjective Date Seen The patient was seen on 05/19/19. Subjective Chief Complaint/HPI No complaints - pain controlled Constitutional: Denies: Chills, Fever Pulmonary: Denies: Dyspnea, Cough Cardiovascular: Denies: Chest Pain, Palpitations Gastrointestinal: Denies: Nausea, Vomiting, Abdominal Pain, Diarrhea, Constipation Objective Physical Examination General Exam: Positive: Alert, No Acute Distress Chest Exam: Positive: Clear to auscultation; Negative: Rales, Rhonchi, Wheezing Heart Exam: Positive: Rate Normal, Regular Rhythm Abdomen Exam: Positive: Normal bowel sounds, Soft; Negative: Tenderness Extremity Exam: Negative: Edema Psych Exam: Positive: Mental status NL, Mood NL Assessment /Plan Problems (1) Chest heaviness Status: Acute Problem Text: 05/19/19 new onset ~1420 p repositioning in bed aw dyspnea laying in bed-no previous VTE, mild bibasialr rales-SLIV-+ ~2.5L since admission 05/19/19 1451 EKG NSR 79, diffuse RA similar to 11/08/18 per px, ho post- pulmonary edema, 03/2017 TTE Antecol: 1. Normal left ventricle internal dimensions and wall thickness. Normal regional left ventricular (LV) wall motion and wall thickening. Normal LV systolic function. Left ventricular ejection fraction (LVEF) 60% by visual estimate. Normal LV diastolic function. 2. Structurally normal appearing mitral leaflets. Mild mitral regurgitation within normal limits. 3. No coarctation of the aorta. 4. Otherwise normal appearing echocardiogram Doppler findings. (2) Breast hematoma after procedure Status: Acute Problem Text: Psot lumpectomy in [place] - Hematoma evacuated by Dr. Sawyer - per patient, she plans to see her again later today and decide on d/c plan (3) Major depression Status: Acute Problem Text: continue HD cloz 100 QHS, venla ER 225, Adderall 120 BID, martha 0.5 QHS Patient has new cuts on left wrist - I spoke with her about this and she states that although she tends to cut herself superficially, she is not actively suicidal. I offered psychiatry eval, but she does not feel she needs this currently - F ollowed with [facility] as outpatient and feels she is stable at this time. (4) Myasthenia gravis Status: Acute Response to Treatment: Stable Problem Text: Stable on HD pyrido 90 QID, MM 1000 TID (5) Breast cancer, right (6) Dysuria Status: Acute Problem Text: 05/19 check UA/reflex, PVR Plan/VTE VTE Prophylaxis Ordered?: Yes VTE Exclusion Pharmacological: Bleeding Risk VS, I&O, 24H, Fishbone Vital Signs/I&O Vital Signs Date Time Temp Pulse Resp B/P (MAP) Pulse Ox O2 Delivery O2 Flow Rate FiO2 05/19/19 11:29 76 22 98 Room Air 05/19/19 10:00 98.3 115/68 (84) 05/18/19 23:35 2 I&O- Last 24 Hours up to 6 AM 05/19/19 06:00 Intake Total 1320 ml Output Total 105 ml Balance 1215 ml Laboratory Data 24H LABS Laboratory Tests 2 05/18/19 19:54: Nucleated Red Blood Cells % (auto) 0.0, Anion Gap 6L, Glomerular Filtration Rate > 60.0, Lactic Acid Level 0.9, Calcium Level 8.5, Total Bilirubin 0.2, Aspartate Amino Transf (AST/SGOT) 27, Alanine Aminotransferase (ALT/SGPT) 23, Alkaline Phosphatase 89, Total Protein 6.7, Albumin 3.8, Albumin/Globulin Ratio 1.31 05/19/19 05:43: Nucleated Red Blood Cells % (auto) 0.0, Anion Gap 5L, Glomerular Filtration Rate > 60.0, Calcium Level 7.9L CBC/BMP Laboratory Tests 05/18/19 19:54 05/19/19 00:41 05/19/19 05:43 Microbiology Microbiology 05/18/19 Gram Stain - Final, Resulted 05/18/19 Wound Culture, Resulted Pending 05/18/19 Anaerobic Culture, Resulted Pending 05/18/19 Blood Culture, Received Pending DIEGO EASON PA-C May 19, 2019 11:40 Cristino Obrien M.D. May 19, 2019 15:45
[2019-05-19] MEDS: ACETAMINOPHEN 500 MG TAB PO PRN (14:01)
--- NOTE | 2019-05-19 14:03 | ROOPDOC ---
[facility] Report Of Operation Report of Operation DATE OF PROCEDURE: 05/18/19 PREPROCEDURE DIAGNOSES: Right breast and right axilla hematoma POSTPROCEDURE DIAGNOSES: Right breast hematoma PROCEDURE: Right breast and right axilla exploration and evacuation of the right breast hematoma SURGEON: Alba Simons COURT SECURITY OFFICER: ANESTHESIA: general ESTIMATED BLOOD LOSS: Approximately 1 mL. COMPLICATIONS: none REMARKS: moderate amount of blood clot in the lumpectomy cavity DESCRIPTION OF PROCEDURE: INDICATIONS: Ms. Taylor is a 39-year-old woman with a past medical history of obstructive sleep apnea and myasthenia gravis, status sternotomy and thymectomy, currently on CellCept and Mestinon, who was recently diagnosed with right breast cancer. Due to patients complex medical history after discussion with neurology patient was referred to [facility] for surgical procedure. She had right breast lumpectomy and right sentinel lymph node biopsy done on 05/17/2019. The next morning patient noted that her right breast is swollen and tender. She presented to my clinic with extensive ecchymosis of the right breast and hematoma. I explained to the patient that hematoma needs to be evacuated. Patient was admitted to the hospital for surgery. Risks and possible complications of surgical procedure including bleeding, infection and injury to surrounding structures were explained to the patient and she wished to proceed. Consent was signed. DETAILS: Patient was taken to the operating room and placed supine on the operating room table. A sign in was called stating patients name, date of and the procedure to be done. Preoperative antibiotics were infused. Smooth induction of general anesthesia was done. Patients hands were extended on arm rests and placed in the protective foam. Care was taken not to over extend patients arms. Patients right breast was prepped and draped in the usual fashion. Appropriate time out was called confirming patients name, date of and procedure to be done. Upon examination, patients Right breast appeared firm and had extensive skin ecchymosis involving majority of the right breast, some part of the right axilla and some tracking of ecchymosis below inframammary fold. Procedure was started with opening the right inframammary incision by pulling proline suture out. Hemostat was used to spread the edges of the incision. A moderate amount of black blood clot was encountered. Two wound culture sticks were placed in the wound at two different sites. Specimens were marked with patient name and were sent to the lab. The moderate amount of black blood clot was evacuated from the lumpectomy cavity. A piece of the clot was sent as a specimen to pathology after appropriately marking it with patient information. Wound was irrigated. No arterial bleeding was seen. There were a few spots of raw tissue with some oozing. Those areas were coagulated with electrocautery. Wound was thoroughly irrigated and hemostasis was assured. Right axillary incision site also appeared weller although markedly less full than the lumpectomy site. Decision was made to open axillary incision and eval uate it for presence of hematoma as well. The proline suture was pulled out of incision. Hemostat was used to spread the incision. Examination of the right axillary cavity showed small amount of serous fluid in the axilla. This was suctioned out and the incision was closed with interrupted 3-0 Monocryl. 10mm AFIA drain was placed into the wound through separate inframammary incision. The drain was secured to the skin with stitches. The deep space of the lumpectomy cavity was closed with interrupted 3-0 Vicryl stitches. The dermis was closed with interrupted 3-0 Monocryl stitches. Local anesthetic using 1% lidocaine and 0.25 % Marcaine 50/50 mix was injected around the drain site and at the sites of previously opened incision. Xeroform gauze was placed over ecchymotic breast skin and incisions. This was covered with fluffs and ABD dressing. Surgical bra was placed. Patient emerged from the anesthesia without any problems. Patient tolerated procedure well and was taken to recovery unit in stable condition. ALBA SIMONS DO May 19, 2019 14:02
[2019-05-19] MEDS ORDERED: ISOVUE-370 76% 100ML VIAL (Q9967) As Ordered ONE (16:03)
[2019-05-19 16:46] LABS: NT-PRO BNP 381 PG/ML (<125); TROPONIN I < 0.02 NG/ML (< 0.10)
[2019-05-19] MEDS ORDERED: LORazepam 0.5 MG TAB PO ONE (18:15)
--- NOTE | 2019-05-19 19:06 | REPVR ---
PROCEDURE INFORMATION: Exam: US Duplex Lower Extremity Veins Exam date and time: 05/19/2019 6:49 PM Age: 39 years old Clinical indication: Lymphedema and swelling (edema) of limb; Lower extremity, bilateral; Additional info: RO dvt TECHNIQUE: Imaging protocol: Real-time duplex ultrasound of the Lower Extremities with 2-D najera scale, color Doppler flow and spectral waveform analysis with image documentation. Complete exam focused on the bilateral lower extremity veins. COMPARISON: US Duplex, Ext LOWER veins, bilat 11/03/2017 10:00 AM FINDINGS: Right deep veins: Unremarkable. The common femoral, femoral, proximal profunda femoral and popliteal veins are patent without thrombus. Normal Doppler waveforms. Normal compressibility and/or augmentation response. Right superficial veins: Saphenofemoral junction is patent without thrombus. Left deep veins: Unremarkable. The common femoral, femoral, proximal profunda femoral and popliteal veins are patent without thrombus. Normal Doppler waveforms. Normal compressibility and/or augmentation response. Left superficial veins: Saphenofemoral junction is patent without thrombus. Soft tissues: Unremarkable. IMPRESSION: No DVT of bilateral lower extremity veins. Electronically signed by: Harman Valle On 05/19/2019 19:06:07 PM
--- NOTE | 2019-05-19 20:08 | IPNPDOC ---
Subjective General Date Seen: May 19, 2019 Subject Chief Complaint/History i got called by the RN on the floor that Ms. Taylor is complaining of Shortness of breast and chest pain. PAtient states that it is difficult to breast. She feels like something is sitting on her chest. She also felt that possibly the right breast is more tender, especially arount the drain site Current Medications Current Medications Current Medications Medications (Trade) Dose Ordered Sig/Ben Route PRN Reason Start Time Stop Time Status Last Admin Dose Admin Acetaminophen (Tylenol Tab) 500 mg Q4HP PRN PO PAIN 1-5 05/18/19 23:30 05/19/19 14:01 Acetaminophen/ Hydrocodone Bitart ([place], Anexsia 5/325) 1 tab Q6H PRN PO PAIN 05/19/19 01:00 05/19/19 11:29 Acyclovir (Zovirax) 400 mg BID PO 05/19/19 01:00 05/19/19 08:27 Amphetamine/ Dextroamphetamine (Adderall) 20 mg BID@0800,1400 PO 05/19/19 08:00 05/19/19 14:01 Artificial Tears (Akwa Tears) 1 drop QID PRN OU DRY EYES 05/19/19 01:00 Baclofen (Lioresal) 10 mg TID PO 05/19/19 09:00 05/19/19 16:02 Clozapine (Clozaril) 100 mg QHS PO 05/19/19 01:00 05/19/19 01:53 Docusate Sodium (Colace) 100 mg BID PO 05/19/19 21:00 05/19/19 10:32 DC Docusate Sodium (Colace) 100 mg BID PO 05/19/19 21:00 Docusate Sodium (Colace) 100 mg DAILY PO 05/19/19 09:00 05/19/19 10:32 DC 05/19/19 08:28 Fentanyl Citrate (Sublimaze) 25 mcg Q5MP PRN IV PAIN LEVEL 5-10 05/18/19 23:15 05/18/19 23:38 DC 05/18/19 23:30 Ferrous Sulfate (Ferrous Sulfate) 325 mg DAILY PO 05/19/19 09:00 05/19/19 08:27 Folic Acid (Folic Acid) 1 mg DAILY PO 05/19/19 09:00 05/19/19 08:27 Furosemide (Lasix) 20 mg DAILY PO 05/19/19 09:00 05/19/19 08:28 Home Med (Med Rec Complete!) ASDIRECTED XX 05/19/19 00:45 05/19/19 00:34 DC Lactated Ringer's 1,000 ml @ 80 mls/hr [id number] IV 05/18/19 23:15 05/19/19 00:15 DC Lactated Ringer's 1,000 ml @ 120 mls/hr Q8H20M IV 05/18/19 20:15 05/19/19 15:52 DC 05/19/19 14:05 Lorazepam (Ativan) 0.5 mg QHS PO 05/19/19 01:00 05/19/19 01:53 Meloxicam (Mobic) 15 mg QHS PO 05/19/19 01:00 05/19/19 01:52 Miscellaneous (Unresolved Patient Own Med Order) SEE LABEL COMMENTS DAILY XX 05/19/19 09:00 Morphine Sulfate (Morphine Sulfate Inj) 2 mg Q2HP PRN IV BREAKTHROUGH PAIN 05/18/19 23:30 05/19/19 08:29 Mycophenolate Mofetil (Cellcept) 1,000 mg TID PO 05/18/19 21:00 05/19/19 16:02 Naltrexone HCl (Revia) 50 mg DAILY PO 05/19/19 09:00 05/19/19 08:28 Omeprazole (PriLOSEC) 20 mg DAILY PO 05/19/19 09:00 05/19/19 08:27 Ondansetron HCl (ZOFRAN INJection) 4 mg Q4HP PRN IV NAUSEA OR VOMITING 05/18/19 23:15 05/19/19 00:15 DC Oxycodone HCl (Roxicodone, Oxyir) 5 mg Q4HP PRN PO PAIN 6-10 05/18/19 23:30 05/19/19 05:36 Oxycodone/ Acetaminophen (Percocet 5mg/ 325mg Tablet) 1 tab ASDIRECTED PRN PO PAIN LEVEL 1-4 05/18/19 23:15 05/19/19 00:15 DC Patient Own Medication (Patient'S Own Med) MYRBETRIQ 50MG DAILY DAILY PO 05/19/19 09:00 UNV Pyridostigmine [place] (Mestinon) 90 mg QID PO 05/18/19 21:00 05/19/19 16:02 Ramelteon (Rozerem) 8 mg QHS PO 05/18/19 21:00 05/19/19 01:51 Ropinirole HCl (Requip) 0.25 mg DAILY PO 05/19/19 09:00 05/19/19 08:28 Venlafaxine HCl (Effexor Xr) 225 mg DAILY PO 05/19/19 09:00 05/19/19 08:27 Vitamin D (Vitamin D) 2,000 units QHS PO 05/18/19 21:00 05/19/19 01:51 Allergies Coded Allergies: amitriptyline (Verified Allergy, Severe, SWELLING, 07/12/18) Grass (Verified Allergy, Mild, ITCHY EYES,NOSE, 12/17/17) TREES (Verified Allergy, Mild, ITCHY EYES,NOSE, 12/17/17) TAPE (Verified Allergy, Unknown, RASH/BLISTER, 07/12/18) bupropion (Verified Allergy, Unknown, ESOPHAGEAL SPASMS, 07/12/18) metaxalone (Verified Allergy, Unknown, itching, 07/12/18) minocycline (Verified Allergy, Unknown, 07/12/18) mold (Verified Allergy, Unknown, 07/12/18) pregabalin (Verified Allergy, Unknown, EDEMA, 07/12/18) tizanidine (Verified Allergy, Unknown, ITCHING, 07/12/18) trazodone (Verified Allergy, Unknown, EDEMA, 07/12/18) valproic acid (Verified Allergy, Unknown, DOES NOT METABOLIZE, 07/12/18) banana (Verified Adverse Reaction, Unknown, VOMITING, 07/12/18) benztropine (Verified Adverse Reaction, Unknown, BLURRED VISION, 08/31/18) clindamycin (Verified Adverse Reaction, Unknown, HEART BURN, 07/12/18) cyclobenzaprine (Verified Adverse Reaction, Unknown, IRRITABILITY, 07/12/18) gabapentin (Verified Adverse Reaction, Unknown, extreme weakness, 08/31/18) sulfamethoxazole (Verified Adverse Reaction, Unknown, DIARRHEA, 07/12/18) trimethoprim (Verified Adverse Reaction, Unknown, DIARRHEA, 07/12/18) vilazodone (Verified Adverse Reaction, Unknown, MOOD CHANGES, 08/31/18) Objective Physical Examination Examination GENERAL APPEARANCE: patient is in bed in mild distress due to discomfort ans shortness of breast BREAST: right breast is with extensive ecchymosis which was present on admission. The right breast is softer than yesterday and feels the same it felt this morning. AFIA drain is in place and draining small amount of s/s drainage. The incision in the inframammary fold and axilla look fine. Drain site is very tender. LUNGS: appears short of breath HEART: no tachycardia ABDOMEN: soft EXTREMITIES: no calf tenderness Vital Signs Vital Signs Date Time Temp Pulse Resp B/P (MAP) Pulse Ox O2 Delivery O2 Flow Rate FiO2 05/19/19 18:00 97.9 67 21 135/81 (99) 92 Room Air 05/18/19 23:35 2 I&Os I&O- Last 24 Hours up to 6 AM 05/19/19 06:00 Intake Total 1320 ml Output Total 105 ml Balance 1215 ml Laboratory Data Labs 24H Laboratory Tests 2 05/19/19 05:43: Nucleated Red Blood Cells % (auto) 0.0, Anion Gap 5L, Glomerular Filtration Rate > 60.0, Calcium Level 7.9L 05/19/19 16:04: D-Dimer, Quantitative 329.91, Troponin I < 0.02, BR-Flo-Y-Type Natriuretic P eptide 381H 05/19/19 18:04: Urine Color YELLOW, Urine Appearance CLEAR, Urine pH 6.0, Urine Specific [place] 1.046, Urine Protein NEGATIVE, Urine Glucose (UA) NEGATIVE, Urine Ketones NEGATIVE, Urine Blood 1+H, Urine Nitrite NEGATIVE, Urine Bilirubin NEGATIVE, Urine Urobilinogen 0.2, Urine Leukocyte Esterase NEGATIVE, Urine WBC (Auto) 2, Urine RBC (Auto) 3, Urine Hyaline Casts (Auto) 0, Urine Bacteria (Auto) NEGATIVE, Urine Squamous Epithelial Cells 7, Urine Mucus (Auto) SMALL, Urine Sperm (Auto) CBC/BMP Laboratory Tests 05/19/19 00:41 05/19/19 05:43 05/19/19 12:07 Microbiology Microbiology 05/18/19 Gram Stain - Final, Resulted 05/18/19 Wound Culture, Resulted Pending 05/18/19 Anaerobic Culture, Resulted Pending 05/18/19 Blood Culture, Received Pending Impression 39 y o F with R breast cancer and myastenia gravis, admitted yesterday due to right breast hematoma, s/p evacuation of hematoma last night, now complaining of chest pain and trouble breathing. US lower extremities was negative for DVT. Pt supposed to go for CT chest to r/o PE but there is an issue with her IV. ICU nurse will try to replace IV. - I spoke with hospitalist doctor and discussed possible cardiac etiology - will continue to monitor drain output and breast exam Plan / VTE VTE Prophylaxis Ordered?: Yes VTE Exclusion Pharmacological: Bleeding Risk ALBA SIMONS DO May 19, 2019 20:08
[2019-05-19] MEDS: DOCUSATE SODIUM 100 MG CAP PO SCH (22:45)
[2019-05-20 02:00] VITALS: BP 141/75
[2019-05-20 06:00] VITALS: BP 142/78; O2SAT 98
[2019-05-20] MEDS ORDERED: fentaNYL 100 MCG/2 ML INJECTION (J3010) IV SCH (06:00)
[2019-05-20] MEDS ORDERED: MIDAZOLAM INJ 2 MG/2 ML VIAL (J2250) IV SCH (06:00)
[2019-05-20 06:29] LABS: BASO # 0.1 10^3/uL (0.0-0.2); BASO % 0.7 % (0.0-1.0); EOS # 0.4 10^3/uL (0.0-0.5); EOS % 4.5 % (0.0-3.0); HEMATOCRIT 33.7 % (36.0-47.0); HEMOGLOBIN 10.9 g/dl (12.0-15.5); LYMPH # 3.6 10^3/uL (1.5-5.0); LYMPH % 43.4 % (24.0-44.0); MEAN CORPUSCULAR HEMOGLOBIN 28.8 pg (27.0-33.0); MEAN CORPUSCULAR HGB CONC 32.3 g/dl (32.0-36.5); MEAN CORPUSCULAR VOLUME 88.9 fl (80.0-96.0); MONO # 0.5 10^3/uL (0.0-0.8); MONO % 6.2 % (0.0-5.0); NEUTROPHILS # 3.7 10^3/uL (1.5-8.5); NEUTROPHILS % 44.5 % (36.0-66.0); PLATELET COUNT, AUTOMATED 244 10^3/uL (150-450); RED BLOOD COUNT 3.79 10^6/uL (4.00-5.40); WHITE BLOOD COUNT 8.3 10^3/uL (4.0-10.0)
[2019-05-20 06:53] LABS: ALBUMIN 2.9 GM/DL (3.2-5.2); ALT/SGPT 24 U/L (12-78); BILIRUBIN,TOTAL 0.3 MG/DL (0.2-1.0); BLOOD UREA NITROGEN 11 MG/DL (7-18); CALCIUM LEVEL 7.9 MG/DL (8.5-10.1); CARBON DIOXIDE LEVEL 26 MEQ/L (21-32); CHLORIDE LEVEL 114 MEQ/L (98-107); CREATININE FOR GFR 0.76 MG/DL (0.55-1.30); GLOMERULAR FILTRATION RATE > 60.0 (>58); GLUCOSE, FASTING 91 MG/DL (70-100); POTASSIUM SERUM 3.5 MEQ/L (3.5-5.1); SODIUM LEVEL 144 MEQ/L (136-145); TOTAL PROTEIN 5.6 GM/DL (6.4-8.2)
--- NOTE | 2019-05-20 07:46 | IPNPDOC ---
Subjective General Date Seen: May 20, 2019 Subject Chief Complaint/History The patient is a 39-year-old female admitted due to right breast hematoma. She had right breast lumpectomy and right sentinel lymph node biopsy at [place] on 05/17/2019, s/p R breast hematoma evacuation, right axilla exploration and Right breast drain placement at [facility] 05/18/2019, now POD2. Yesterday patient developed a chest pain and shortness of breath. She described it as somebody sitting on her chest. EKG and trops were done and normal. US LE was done and no DVT. CTA chest was not done yet because issues with IV but will be attempted again today. Patient states that she feels better today. Her chest pain is better when she is flat in bed. Her right breast hurts less as well. Current Medications Current Medications Current Medications Medications (Trade) Dose Ordered Sig/Ben Route PRN Reason Start Time Stop Time Status Last Admin Dose Admin Acetaminophen (Tylenol Tab) 500 mg Q4HP PRN PO PAIN 1-5 05/18/19 23:30 05/19/19 14:01 Acetaminophen/ Hydrocodone Bitart (Bud, Anexsia 5/325) 1 tab Q6H PRN PO PAIN 05/19/19 01:00 05/19/19 22:47 Acyclovir (Zovirax) 400 mg BID PO 05/19/19 01:00 05/19/19 22:47 Amphetamine/ Dextroamphetamine (Adderall) 20 mg BID@0800,1400 PO 05/19/19 08:00 05/19/19 14:01 Artificial Tears (Akwa Tears) 1 drop QID PRN OU DRY EYES 05/19/19 01:00 Baclofen (Lioresal) 10 mg TID PO 05/19/19 09:00 05/19/19 22:46 Clozapine (Clozaril) 100 mg QHS PO 05/19/19 01:00 05/19/19 22:45 Docusate Sodium (Colace) 100 mg BID PO 05/19/19 21:00 05/19/19 10:32 DC Docusate Sodium (Colace) 100 mg BID PO 05/19/19 21:00 05/19/19 22:45 Docusate Sodium (Colace) 100 mg DAILY PO 05/19/19 09:00 05/19/19 10:32 DC 05/19/19 08:28 Fentanyl Citrate (Sublimaze) 25 mcg Q5MP PRN IV PAIN LEVEL 5-10 05/18/19 23:15 05/18/19 23:38 DC 05/18/19 23:30 Ferrous Sulfate (Ferrous Sulfate) 325 mg DAILY PO 05/19/19 09:00 05/19/19 08:27 Folic Acid (Folic Acid) 1 mg DAILY PO 05/19/19 09:00 05/19/19 08:27 Furosemide (Lasix) 20 mg DAILY PO 05/19/19 09:00 05/19/19 08:28 Home Med (Med Rec Complete!) ASDIRECTED XX 05/19/19 00:45 05/19/19 00:34 DC Lactated Ringer's 1,000 ml @ 80 mls/hr [id number] IV 05/18/19 23:15 05/19/19 00:15 DC Lactated Ringer's 1,000 ml @ 120 mls/hr Q8H20M IV 05/18/19 20:15 05/19/19 15:52 DC 05/19/19 14:05 Lorazepam (Ativan) 0.5 mg QHS PO 05/19/19 01:00 05/19/19 01:53 Meloxicam (Mobic) 15 mg QHS PO 05/19/19 01:00 05/19/19 22:46 Miscellaneous (Unresolved Patient Own Med Order) SEE LABEL COMMENTS DAILY XX 05/19/19 09:00 Morphine Sulfate (Morphine Sulfate Inj) 2 mg Q2HP PRN IV BREAKTHROUGH PAIN 05/18/19 23:30 05/19/19 08:29 Mycophenolate Mofetil (Cellcept) 1,000 mg TID PO 05/18/19 21:00 05/19/19 22:45 Naltrexone HCl (Revia) 50 mg DAILY PO 05/19/19 09:00 05/19/19 08:28 Omeprazole (PriLOSEC) 20 mg DAILY PO 05/19/19 09:00 05/19/19 08:27 Ondansetron HCl (ZOFRAN INJection) 4 mg Q4HP PRN IV NAUSEA OR VOMITING 05/18/19 23:15 05/19/19 00:15 DC Oxycodone HCl (Roxicodone, Oxyir) 5 mg Q4HP PRN PO PAIN 6-10 05/18/19 23:30 05/19/19 05:36 Oxycodone/ Acetaminophen (Percocet 5mg/ 325mg Tablet) 1 tab ASDIRECTED PRN PO PAIN LEVEL 1-4 05/18/19 23:15 05/19/19 00:15 DC Patient Own Medication (Patient'S Own Med) MYRBETRIQ 50MG DAILY DAILY PO 05/19/19 09:00 UNV Pyridostigmine [place] (Mestinon) 90 mg QID PO 05/18/19 21:00 05/19/19 22:46 Ramelteon (Rozerem) 8 mg QHS PO 05/18/19 21:00 05/19/19 22:46 Ropinirole HCl (Requip) 0.25 mg DAILY PO 05/19/19 09:00 05/19/19 08:28 Venlafaxine HCl (Effexor Xr) 225 mg DAILY PO 05/19/19 09:00 05/19/19 08:27 Vitamin D (Vitamin D) 2,000 units QHS PO 05/18/19 21:00 05/19/19 22:47 Allergies Coded Allergies: amitriptyline (Verified Allergy, Severe, SWELLING, 07/12/18) Grass (Verified Allergy, Mild, ITCHY EYES,NOSE, 12/17/17) TREES (Verified Allergy, Mild, ITCHY EYES,NOSE, 12/17/17) TAPE (Verified Allergy, Unknown, RASH/BLISTER, 07/12/18) bupropion (Verified Allergy, Unknown, ESOPHAGEAL SPASMS, 07/12/18) metaxalone (Verified Allergy, Unknown, itching, 07/12/18) minocycline (Verified Allergy, Unknown, 07/12/18) mold (Verified Allergy, Unknown, 07/12/18) pregabalin (Verified Allergy, Unknown, EDEMA, 07/12/18) tizanidine (Verified Allergy, Unknown, ITCHING, 07/12/18) trazodone (Verified Allergy, Unknown, EDEMA, 07/12/18) valproic acid (Verified Allergy, Unknown, DOES NOT METABOLIZE, 07/12/18) banana (Verified Adverse Reaction, Unknown, VOMITING, 07/12/18) benztropine (Verified Adverse Reaction, Unknown, BLURRED VISION, 08/31/18) clindamycin (Verified Adverse Reaction, Unknown, HEART BURN, 07/12/18) cyclobenzaprine (Verified Adverse Reaction, Unknown, IRRITABILITY, 07/12/18) gabapentin (Verified Adverse Reaction, Unknown, extreme weakness, 08/31/18) sulfamethoxazole (Verified Adverse Reaction, Unknown, DIARRHEA, 07/12/18) trimethoprim (Verified Adverse Reaction, Unknown, DIARRHEA, 07/12/18) vilazodone (Verified Adverse Reaction, Unknown, MOOD CHANGES, 08/31/18) Objective Physical Examination Examination GENERAL APPEARANCE:Patient seen, laying in bed, awake, alert, and oriented. Comfortable, in no acute distress BREAST: Right breast still with extensive ecchymosis but remains soft. There is some tracking of the ecchymosis below the inflammatory fold which expected. incisions in the inflammatory fold and right axilla are intact. right AFIA with low drainage - still mostly sanguinous. Left breast is soft, non-tender. HEENT: mucosa moist LUNGS: breathing comfortably on room air when lying down HEART: RR, no tachycardia ABDOMEN: soft EXTREMITIES: no pain in lower extremities pain Vital Signs Vital Signs Date Time Temp Pulse Resp B/P (MAP) Pulse Ox O2 Delivery O2 Flow Rate FiO2 05/20/19 02:00 97.9 65 18 141/75 (97) 96 Room Air 05/18/19 23:35 2 I&Os I&O- Last 24 Hours up to 6 AM 05/20/19 06:00 Intake Total 3300 ml Output Total 1740 ml Balance 1560 ml Laboratory Data Labs 24H Laboratory Tests 2 05/19/19 16:04: D-Dimer, Quantitative 329.91, Troponin I < 0.02, UU-Llg-Q-Type Natriuretic Peptide 381H 05/19/19 18:04: Urine Color YELLOW, Urine Appearance CLEAR, Urine pH 6.0, Urine Specific [place] 1.046, Urine Protein NEGATIVE, Urine Glucose (UA) NEGATIVE, Urine Ketones NEGATIVE, Urine Blood 1+H, Urine Nitrite NEGATIVE, Urine Bilirubin NEGATIVE, Urine Urobilinogen 0.2, Urine Leukocyte Esterase NEGATIVE, Urine WBC (Auto) 2, Urine RBC (Auto) 3, Urine Hyaline Casts (Auto) 0, Urine Bacteria (Auto) NEGATIVE, Urine Squamous Epithelial Cells 7, Urine Mucus (Auto) SMALL, Urine Sperm (Auto) 2/28/20 06:12: Immature Granulocyte % (Auto) 0.7, Neutrophils (%) (Auto) 44.5, Lymphocytes (%) (Auto) 43.4, Monocytes (%) (Auto) 6.2H, Eosinophils (%) (Auto) 4.5H, Basophils (%) (Auto) 0.7, Neutrophils # (Auto) 3.7, Lymphocytes # (Auto) 3.6, Monocytes # (Auto) 0.5, Eosinophils # (Auto) 0.4, Basophils # (Auto) 0.1, Nucleated Red Bl ood Cells % (auto) 0.0, Anion Gap 4L, Glomerular Filtration Rate > 60.0, Calcium Level 7.9L, Total Bilirubin 0.3, Aspartate Amino Transf (AST/SGOT) 11, Alanine Aminotransferase (ALT/SGPT) 24, Alkaline Phosphatase 73, Total Protein 5.6L, Albumin 2.9#L, Albumin/Globulin Ratio 1.07 CBC/BMP Laboratory Tests 05/19/19 12:07 05/20/19 06:12 Microbiology Microbiology 05/18/19 Gram Stain - Final, Resulted 05/18/19 Wound Culture, Resulted Pending 05/18/19 Anaerobic Culture, Resulted Pending 05/18/19 Blood Culture - Preliminary, Resulted No growth after 24 hours . All specim... Imaging Studies US LE negative for DVT Impression The patient is a 39-year-old female admitted due to right breast hematoma. She had right breast lumpectomy and right sentinel lymph node biopsy at [place] on 05/17/2019, s/p R breast hematoma evacuation, right axilla exploration and Right breast drain placement at [facility] 05/18/2019, now POD2 with new chest pain and shortness of breast - monitor AFIA output, will remove outpatient when output is serous and low - monitor right breast for increased swelling - ok to keep surgical bra open when patient is in bed, please close it when she is moving around as the dressings will fall off - monitor Hb, slowly trending down now - will follow CT chest today - greatly appreciate medical team help with management of multiple health issues of this patient - not ready for d/c yet from surgical point Plan / VTE VTE Prophylaxis Ordered?: Yes VTE Exclusion Pharmacological: Bleeding Risk ALBA SIMONS DO May 20, 2019 07:46
[2019-05-20] MEDS: ACETAMINOPHEN 500 MG TAB PO PRN ×3 (09:13→21:08)
[2019-05-20] MEDS: MYCOPHENOLATE MOFETIL 250 MG CAP (J7517) PO SCH ×3 (09:13→21:01)
[2019-05-20] MEDS: OMEPRAZOLE 20 MG CAP PO SCH (09:14)
[2019-05-20] MEDS: PYRIDOSTIGMINE 60 MG TAB PO SCH ×4 (09:14→20:59)
[2019-05-20] MEDS: FERROUS SULFATE 325MG TAB PO SCH (09:14)
[2019-05-20] MEDS: ADDERALL 5 MG TAB PO SCH ×2 (09:14→15:17)
[2019-05-20] MEDS: BACLOFEN 10 MG TAB PO SCH ×3 (09:15→21:00)
[2019-05-20] MEDS: ACYCLOVIR 200 MG CAPSULE PO SCH ×2 (09:15→21:01)
[2019-05-20] MEDS: FUROSEMIDE 20 MG TAB PO SCH (09:15)
[2019-05-20] MEDS: VENLAFAXINE **XR** 75MG CAPSULE PO SCH (09:15)
[2019-05-20] MEDS: NALTREXONE 50 MG TAB PO SCH (09:15)
[2019-05-20] MEDS: DOCUSATE SODIUM 100 MG CAP PO SCH ×2 (09:15→21:00)
[2019-05-20] MEDS: FOLIC ACID 1 MG TAB PO SCH (09:15)
[2019-05-20] MEDS: rOPINIRole 0.25 MG TAB(REQUIP) PO SCH (09:15)
[2019-05-20] MEDS ORDERED: ISOVUE-370 76% 100ML VIAL (Q9967) As Ordered ONE (09:41)
[2019-05-20 10:00] VITALS: BP 126/79; O2SAT 99
--- NOTE | 2019-05-20 10:23 | IPNPDOC ---
Subjective Date Seen The patient was seen on 05/20/19. Subjective Chief Complaint/HPI continues to c/o chest heaviness and dyspnea - heading down for CT angio Constitutional: Denies: Chills, Fever Pulmonary: Reports: Dyspnea; Denies: Cough Cardiovascular: Reports: Chest Pain (chest heaviness); Denies: Palpitations Gastrointestinal: Denies: Nausea, Vomiting, Abdominal Pain, Diarrhea, Constipation Objective Physical Examination General Exam: Positive: Alert, Mild Distress (looks dyspneic) Chest Exam: Positive: Clear to auscultation; Negative: Rales, Rhonchi, Wheezing Heart Exam: Positive: Rate Normal, Regular Rhythm Abdomen Exam: Positive: Normal bowel sounds, Soft; Negative: Tenderness Extremity Exam: Negative: Edema Psych Exam: Positive: Mental status NL, Mood NL Assessment /Plan Problems (1) Chest heaviness Status: Acute Problem Text: 05/20 - CT angio this am - (unable to get IV access for test until this am) 05/19/19 new onset ~1420 p repositioning in bed aw dyspnea laying in bed-no previous VTE, mild bibasialr rales-SLIV-+ ~2.5L since admission, DD 330, T-I <0.03, BNP 381-favor 2 mild fluid overload 05/19/19 1451 EKG NSR 79, diffuse RA similar to 11/08/18 per px, ho post- pulmonary edema 03/2017 TTE Antecol: 1. Normal left ventricle internal dimensions and wall thickness. Normal regional left ventricular (LV) wall motion and wall thickening. Normal LV systolic function. Left ventricular ejection fraction (LVEF) 60% by visual estimate. Normal LV diastolic function. 2. Structurally normal appearing mitral leaflets. Mild mitral regurgitation within normal limits. 3. No coarctation of the aorta. 4. Otherwise normal appearing echocardiogram Doppler findings. (2) Breast hematoma after procedure Status: Acute Problem Text: Psot lumpectomy in [place] - Hematoma evacuated by Dr. Sawyer - per patient, she plans to see her again later today and decide on d/c plan (3) Major depression Status: Acute Problem Text: continue HD cloz 100 QHS, venla ER 225, Adderall 120 BID, martha 0.5 QHS Patient has new cuts on left wrist - I spoke with her about this and she states that although she tends to cut herself superficially, she is not actively suicidal. I offered psychiatry eval, but she does not feel she needs this currently - [facility] and feels she is stable at this time. (4) Myasthenia gravis Status: Acute Response to Treatment: Stable Problem Text: Stable on HD pyrido 90 QID, MM 1000 TID (5) Breast cancer, right Problem Text: 0/6 nodes involved with tumor tumor size 3 cm. very high oncotype score-HCT P (6) Dysuria Status: Acute Problem Text: 05/19 check UA/reflex, PVR (7) Nephrolithiasis Status: Chronic Problem Text: favor outpx ESWL 05/20 CTA chest c incidental: There is a nonobstructive right renal upper pole 9 mm calculus. Plan/VTE VTE Prophylaxis Ordered?: Yes VTE Exclusion Pharmacological: Bleeding Risk VS, I&O, 24H, Fishbone Vital Signs/I&O Vital Signs Date Time Temp Pulse Resp B/P (MAP) Pulse Ox O2 Delivery O2 Flow Rate FiO2 05/20/19 10:00 97.7 86 20 126/79 (95) 99 Room Air 05/18/19 23:35 2 I&O- Last 24 Hours up to 6 AM 05/20/19 05:59 Intake Total 4020 ml Output Total 1740 ml Balance 2280 ml Laboratory Data 24H LABS Laboratory Tests 2 05/19/19 16:04: D-Dimer, Quantitative 329.91, Troponin I < 0.02, QM-Duq-P-Type Natriuretic Peptide 381H 05/19/19 18:04: Urine Color YELLOW, Urine Appearance CLEAR, Urine pH 6.0, Urine Specific [place] 1.046, Urine Protein NEGATIVE, Urine Glucose (UA) NEGATIVE, Urine Ketones NEGATIVE, Urine Blood 1+H, Urine Nitrite NEGATIVE, Urine Bilirubin NEGATIVE, Urine Urobilinogen 0.2, Urine Leukocyte Esterase NEGATIVE, Urine WBC (Auto) 2, Urine RBC (Auto) 3, Urine Hyaline Casts (Auto) 0, Urine Bacteria (Auto) NEGATIVE, Urine Squamous Epithelial Cells 7, Urine Mucus (Auto) SMALL, Urine Sperm (Auto) 05/20/19 06:12: Immature Granulocyte % (Auto) 0.7, Neutrophils (%) (Auto) 44.5, Lymphocytes (%) (Auto) 43.4, Monocytes (%) (Auto) 6.2H, Eosinophils (%) (Auto) 4.5H, Basophils (%) (Auto) 0.7, Neutrophils # (Auto) 3.7, Lymphocytes # (Auto) 3.6, Monocytes # (Auto) 0.5, Eosinophils # (Auto) 0.4, Basophils # (Auto) 0.1, Nucleated Red Blood Cells % (auto) 0.0, Anion Gap 4L, Glomerular Filtration Rate > 60.0, Calcium Level 7.9L, Total Bilirubin 0.3, Aspartate Amino Transf (AST/SGOT) 11, Alanine Aminotransferase (ALT/SGPT) 24, Alkaline Phosphatase 73, Total Protein 5.6L, Albumin 2.9#L, Albumin/Globulin Ratio 1.07 CBC/BMP Laboratory Tests 05/19/19 12:07 05/20/19 06:12 Microbiology Microbiology 05/18/19 Gram Stain - Final, Complete 05/18/19 Wound Culture - Final, Complete 05/18/19 Anaerobic Culture - Final, Complete 05/18/19 Blood Culture - Preliminary, Resulted No growth after 24 hours . All specim... DIEGO EASON PA-C May 20, 2019 10:23 Cristino Obrien M.D. May 20, 2019 15:59
--- NOTE | 2019-05-20 10:49 | REP ---
CT of the chest with IV contrast, CT pulmonary angiography: The patient has a history of right breast lumpectomy and thymectomy. There are no emboli in the pulmonary trunk or central pulmonary arteries. There are no emboli in the pulmonary artery lobe or segment branches. There are no infiltrates or pleural effusions. There are no lung masses or nodules. There is a surgical drain in the right breast. There are a few tiny air bubbles in the right breast, likely postsurgical. There are sternotomy wires compatible with thymectomy. The thoracic aorta is unremarkable. Cardiac size is normal. There is no pericardial effusion. Upper abdomen: There are surgical clips in the gallbladder fossa. There is a nonobstructive 9 mm calculus in the right renal upper pole. Otherwise, the visualized upper abdominal contents are unremarkable. Impression: There are no pulmonary emboli. Otherwise, negative CT study of the chest. There is a right breast surgical drain. There are sternotomy wires compatible with the history of thyroidectomy. There is a nonobstructive right renal upper pole 9 mm calculus. Electronically Signed by Mauricio Spear MD 05/20/2019 10:41 A
--- NOTE | 2019-05-20 12:01 | MEDONC ---
MEDICAL ONCOLOGY TELEPHONE NOTE / CHART UPDATE DATE OF SERVICE: 05/20/2019 I spoke with Sierra Mckinney MD, breast surgery, this morning. She reports that surgery went well, margins were negative, 0/6 nodes involved with tumor, tumor size 3 cm. She received oncotype results, very high oncotype score and requested myriad hereditary testing results. I looked these up, it was drawn on 04/19/2019, result not yet received and I confirmed the same with Dr. Kaur's office. Finally, pathology from Mitra's current surgery will be slightly delayed for repeated ER, MD, and HER2 testing to absolutely confirm her histologic status before deciding adjuvant chemotherapy. Electronically Signed by Apolonia Funez MD 05/20/2019 01:28 P DD: Apolonia Funez MD 05/20/2019 10:56 A DT: simin 05/20/2019 11:58 A CC: DO Sierra Haq MD
[2019-05-20 14:00] VITALS: BP 127/78
--- NOTE | 2019-05-20 17:03 | ECGEPIP ---
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
[2019-05-20] MEDS: LORazepam 0.5 MG TAB PO SCH (21:00)
[2019-05-20] MEDS: VITAMIN D 1,000 INTERNATIONAL UNITS TABLET PO SCH (21:00)
[2019-05-20] MEDS: RAMELTEON 8 MG TAB (ROZEREM) PO SCH (21:00)
[2019-05-20] MEDS: cloZAPine 100 MG TAB (S0136) PO SCH (21:01)
[2019-05-20] MEDS: MELOXICAM (MOBIC) 7.5 MG TAB PO SCH (21:01)
[2019-05-20 22:00] VITALS: BP 118/69
[2019-05-21 06:00] VITALS: BP 142/89
[2019-05-21] MEDS: DOCUSATE SODIUM 100 MG CAP PO SCH (08:34)
[2019-05-21] MEDS: ADDERALL 5 MG TAB PO SCH (08:34)
[2019-05-21] MEDS: FERROUS SULFATE 325MG TAB PO SCH (08:34)
[2019-05-21] MEDS: VENLAFAXINE **XR** 75MG CAPSULE PO SCH (08:34)
[2019-05-21] MEDS: OMEPRAZOLE 20 MG CAP PO SCH (08:34)
[2019-05-21] MEDS: ACYCLOVIR 200 MG CAPSULE PO SCH (08:35)
[2019-05-21] MEDS: PYRIDOSTIGMINE 60 MG TAB PO SCH (08:35)
[2019-05-21] MEDS: rOPINIRole 0.25 MG TAB(REQUIP) PO SCH (08:35)
[2019-05-21] MEDS: FOLIC ACID 1 MG TAB PO SCH (08:35)
[2019-05-21] MEDS: BACLOFEN 10 MG TAB PO SCH (08:36)
[2019-05-21] MEDS: FUROSEMIDE 20 MG TAB PO SCH (08:36)
[2019-05-21] MEDS: NALTREXONE 50 MG TAB PO SCH (08:36)
[2019-05-21] MEDS: MYCOPHENOLATE MOFETIL 250 MG CAP (J7517) PO SCH (08:36)
--- NOTE | 2019-05-21 10:57 | IPNPDOC ---
Subjective General Date Seen: May 21, 2019 Subject Chief Complaint/History The patient is a 39-year-old female admitted due to right breast hematoma. She had right breast lumpectomy and right sentinel lymph node biopsy at [place] on 05/17/2019, s/p R breast hematoma evacuation, right axilla exploration and Right breast drain placement at [facility] 05/18/2019, now POD3. On POD1 patient developed a chest pain and shortness of breath. She described it as somebody sitting on her chest. EKG and trops were done and normal. US LE was done and no DVT. CTA chest was done and no PE. Patient states that she feels much better today. Her chest pain resolved. Her right breast hurts less as well. The drain site is most bothersome. The drain put out 55cc over last 24 h. It is now s/s as opposed to sanguineous yesterday. Current Medications Current Medications Current Medications Medications (Trade) Dose Ordered Sig/Ben Route PRN Reason Start Time Stop Time Status Last Admin Dose Admin Acetaminophen (Tylenol Tab) 500 mg Q4HP PRN PO PAIN 1-5 05/18/19 23:30 05/20/19 21:08 Acetaminophen/ Hydrocodone Bitart ([place], Anexsia 5/325) 1 tab Q6H PRN PO PAIN 05/19/19 01:00 05/19/19 22:47 Acyclovir (Zovirax) 400 mg BID PO 05/19/19 01:00 05/21/19 08:35 Amphetamine/ Dextroamphetamine (Adderall) 20 mg BID@0800,1400 PO 05/19/19 08:00 05/21/19 08:34 Artificial Tears (Akwa Tears) 1 drop QID PRN OU DRY EYES 05/19/19 01:00 Baclofen (Lioresal) 10 mg TID PO 05/19/19 09:00 05/21/19 08:36 Clozapine (Clozaril) 100 mg QHS PO 05/19/19 01:00 05/20/19 21:01 Docusate Sodium (Colace) 100 mg BID PO 05/19/19 21:00 05/19/19 10:32 DC Docusate Sodium (Colace) 100 mg BID PO 05/19/19 21:00 05/21/19 08:34 Docusate Sodium (Colace) 100 mg DAILY PO 05/19/19 09:00 05/19/19 10:32 DC 05/19/19 08:28 Fentanyl Citrate (Sublimaze) 25 mcg Q5MP PRN IV PAIN LEVEL 5-10 05/18/19 23:15 05/18/19 23:38 DC 05/18/19 23:30 Fentanyl Citrate (Sublimaze) 50 mcg ASDIRECTED IV 05/20/19 06:00 05/20/19 23:59 Cancel Ferrous Sulfate (Ferrous Sulfate) 325 mg DAILY PO 05/19/19 09:00 05/21/19 08:34 Folic Acid (Folic Acid) 1 mg DAILY PO 05/19/19 09:00 05/21/19 08:35 Furosemide (Lasix) 20 mg DAILY PO 05/19/19 09:00 05/21/19 08:36 Home Med (Med Rec Complete!) ASDIRECTED XX 05/19/19 00:45 05/19/19 00:34 DC Lactated Ringer's 1,000 ml @ 80 mls/hr [id number] IV 05/18/19 23:15 05/19/19 00:15 DC Lactated Ringer's 1,000 ml @ 120 mls/hr Q8H20M IV 05/18/19 20:15 05/19/19 15:52 DC 05/19/19 14:05 Lorazepam (Ativan) 0.5 mg QHS PO 05/19/19 01:00 05/20/19 21:00 Meloxicam (Mobic) 15 mg QHS PO 05/19/19 01:00 05/20/19 21:01 Midazolam HCl (Versed) 1 mg ASDIRECTED IV 05/20/19 06:00 05/20/19 23:59 Cancel Miscellaneous (Unresolved Patient Own Med Order) SEE LABEL COMMENTS DAILY XX 05/19/19 09:00 Morphine Sulfate (Morphine Sulfate Inj) 2 mg Q2HP PRN IV BREAKTHROUGH PAIN 05/18/19 23:30 05/19/19 08:29 Mycophenolate Mofetil (Cellcept) 1,000 mg TID PO 05/18/19 21:00 05/21/19 08:36 Naltrexone HCl (Revia) 50 mg DAILY PO 05/19/19 09:00 05/21/19 08:36 Omeprazole (PriLOSEC) 20 mg DAILY PO 05/19/19 09:00 05/21/19 08:34 Ondansetron HCl (ZOFRAN INJection) 4 mg Q4HP PRN IV NAUSEA OR VOMITING 05/18/19 23:15 05/19/19 00:15 DC Oxycodone HCl (Roxicodone, Oxyir) 5 mg Q4HP PRN PO PAIN 6-10 05/18/19 23:30 05/19/19 05:36 Oxycodone/ Acetaminophen (Percocet 5mg/ 325mg Tablet) 1 tab ASDIRECTED PRN PO PAIN LEVEL 1-4 05/18/19 23:15 05/19/19 00:15 DC Patient Own Medication (Patient'S Own Med) MYRBETRIQ 50MG DAILY DAILY PO 05/19/19 09:00 UNV Pyridostigmine [place] (Mestinon) 90 mg QID PO 05/18/19 21:00 05/21/19 08:35 Ramelteon (Rozerem) 8 mg QHS PO 05/18/19 21:00 05/20/19 21:00 Ropinirole HCl (Requip) 0.25 mg DAILY PO 05/19/19 09:00 05/21/19 08:35 Venlafaxine HCl (Effexor Xr) 225 mg DAILY PO 05/19/19 09:00 05/21/19 08:34 Vitamin D (Vitamin D) 2,000 units QHS PO 05/18/19 21:00 05/20/19 21:00 Allergies Coded Allergies: amitriptyline (Verified Allergy, Severe, SWELLING, 07/12/18) Grass (Verified Allergy, Mild, ITCHY EYES,NOSE, 12/17/17) TREES (Verified Allergy, Mild, ITCHY EYES,NOSE, 12/17/17) TAPE (Verified Allergy, Unknown, RASH/BLISTER, 07/12/18) bupropion (Verified Allergy, Unknown, ESOPHAGEAL SPASMS, 07/12/18) metaxalone (Verified Allergy, Unknown, itching, 07/12/18) minocycline (Verified Allergy, Unknown, 07/12/18) mold (Verified Allergy, Unknown, 07/12/18) pregabalin (Verified Allergy, Unknown, EDEMA, 07/12/18) tizanidine (Verified Allergy, Unknown, ITCHING, 07/12/18) trazodone (Verified Allergy, Unknown, EDEMA, 07/12/18) valproic acid (Verified Allergy, Unknown, DOES NOT METABOLIZE, 07/12/18) banana (Verified Adverse Reaction, Unknown, VOMITING, 07/12/18) benztropine (Verified Adverse Reaction, Unknown, BLURRED VISION, 08/31/18) clindamycin (Verified Adverse Reaction, Unknown, HEART BURN, 07/12/18) cyclobenzaprine (Verified Adverse Reaction, Unknown, IRRITABILITY, 07/12/18) gabapentin (Verified Adverse Reaction, Unknown, extreme weakness, 08/31/18) sulfamethoxazole (Verified Adverse Reaction, Unknown, DIARRHEA, 07/12/18) trimethoprim (Verified Adverse Reaction, Unknown, DIARRHEA, 07/12/18) vilazodone (Verified Adverse Reaction, Unknown, MOOD CHANGES, 08/31/18) Objective Physical Examination Examination GENERAL APPEARANCE:Patient seen, laying in bed, awake, alert, and oriented. Comfortable, in no acute distress. BREAST: Right is soft although with extensive ecchymosis, the ecchymosis is slowly becoming yellowish, there is mild tracking of the ecchymosis below the inflammatory fold which is expected. Both incisions at the inframammary fold and axilla are well approximated and without drainage. Xeroform dressing was replaced over the right breast on todays exam. HEENT: Lips and mucosa appear moist]. LUNGS: breathing comfortably on room air HEART: RR ABDOMEN: nondistended EXTREMITIES: able to spontaneously move al 4 extremities. There are signs of self inflicted cutting Vital Signs Vital Signs Date Time Temp Pulse Resp B/P (MAP) Pulse Ox O2 Delivery O2 Flow Rate FiO2 05/21/19 06:00 97.8 70 18 142/89 (106) 96 Room Air 05/18/19 23:35 2 I&Os I&O- Last 24 Hours up to 6 AM 05/21/19 06:00 Intake Total 1350 ml Output Total 3115 ml Balance -1765 ml Laboratory Data Microbiology Microbiology 05/18/19 Gram Stain - Final, Complete 05/18/19 Wound Culture - Final, Complete 05/18/19 Anaerobic Culture - Final, Complete 05/18/19 Blood Culture - Preliminary, Resulted No Growth after 48 hours. All Specime... Impression The patient is a 39-year-old female admitted due to right breast hematoma. She had right breast lumpectomy and right sentinel lymph node biopsy at [place] on 05/17/2019, s/p R breast hematoma evacuation, right axilla exploration and Right breast drain placement at [facility] 05/18/2019, now POD3 - monitor AFIA output, will remove outpatient when output is serous and low - drain care teaching per nursing staff, please teach patient how to measure output and keep drain on bulb suction - no need to change dressings until postop appointment - no showers until drain is out, ok for sponge baths - ok to keep surgical bra open when patient is in bed, please close it when she is moving around as the dressings will fall off - greatly appreciate medical team help with management of multiple health issues of this patient - ready for discharge from surgical point of view. Follow up appointment already made for May 26 Plan / VTE VTE Prophylaxis Ordered?: Yes VTE Exclusion Pharmacological: Bleeding Risk ALBA SIMONS DO May 21, 2019 10:50
[2019-05-21 12:31] VITALS: O2SAT 98
--- NOTE | 2019-05-21 15:35 | DSES ---
DATE OF ADMISSION: 05/18/2019 DATE OF DISCHARGE: 05/21/2019 PRINCIPAL DIAGNOSIS: Postoperative hematoma following right breast lumpectomy, right sentinel lymph node biopsy in [place] 05/17/2019. CONSULTATIONS BY: Dr. Netta Kaur PROCEDURE: Evacuation hematoma right breast. SECONDARY DIAGNOSES: Noncardiac chest pain. HISTORY: The patient was admitted with a hematoma right breast one day postop breast surgery in [place]. See details in history and physical from admission. HOSPITAL COURSE: The patient was admitted to a medical bed. She had hematoma evacuated by Dr. Sawyer of plastic surgery. She was seen by Dr. Kaur on a daily basis. Her postoperative care was essentially unremarkable. She has a drain in place, and I spoke to Dr. Kaur today. We discussed the case. She feels she can go home. The patient developed a noncardiac chest heaviness during hospitalization. EKG was normal. Troponins were normal and CT scan of the chest showed no pulmonary embolism. She had a history of major depression and cutting behaviors, which she says is how she deals with stress. Denied any suicidal ideation, was offered psychiatry evaluation, but she declined this. She has myasthenia gravis, which remained stable during her hospitalization. SIGNIFICANT LABS: Today, white count is 8.3, hemoglobin 10.9, platelets 244, sodium 144, potassium 3.5, BUN 11, creatinine 0.7, glucose 91. Cultures were all negative. DISPOSITION: The patient will be discharged home today in improved and stable condition. Followup with Dr. Bolaños in 1-[address] Kaur and Dr. Apolonia Funez per their office. Activity as tolerated. Regular diet advised. Wound care as per Dr. Kaur, and she reviewed this with the patient today. Medications are unchanged from admission: - acyclovir 400 mg twice a day - baclofen 10 mg three times a day - vitamin D - clozapine 100 mg nightly - Adderall 20 mg twice a day - Colace as needed - ferrous sulfate 325 mg daily - folic acid 1 mg daily - furosemide 20 mg daily - [place] as needed - Ativan 0.5 mg nightly - meloxicam 15 mg daily - Cellcept 1000 mg three times a day - naltrexone 50 mg daily - omeprazole 20 mg daily - Artificial Tears - Mestinon 90 mg four times a day - Rozerem 8 mg nightly - ropinirole mg daily (2 mg plus 0.25 mg); taking this 0.25 mg in the morning and 2 mg at bedtime - venlafaxine ER 225 mg - zaleplon 10 mg nightly
== END 2019-05-21 13:01 | disposition home health service (06) | DRG 813 ==
LOC: M MSPAV 19:33
PROVIDERS: ADMIT Surgery; ATTEND Family Medicine
PROC: 0HCT0ZZ Extirpation of Matter from Right Breast, Open Approach (ICD-10-PCS; principal; 2019-05-18 19:26)
DX: L76.32 Postprocedural hematoma of skin and subcutaneous tissue following other procedure (principal); G70.00 Myasthenia gravis without (acute) exacerbation; C50.911 Malignant neoplasm of unspecified site of right female breast; F32.9 Major depressive disorder, single episode, unspecified; M79.7 Fibromyalgia; K21.9 Gastro-esophageal reflux disease without esophagitis; F90.9 Attention-deficit hyperactivity disorder, unspecified type; G47.33 Obstructive sleep apnea (adult) (pediatric); H91.90 Unspecified hearing loss, unspecified ear; I34.0 Nonrheumatic mitral (valve) insufficiency; R30.0 Dysuria; Z87.891 Personal history of nicotine dependence; Z90.49 Acquired absence of other specified parts of digestive tract; Z90.710 Acquired absence of both cervix and uterus; Y83.8 Other surgical procedures as the cause of abnormal reaction of the patient, or of later complication, without mention of misadventure at the time of the procedure; Z79.1 Long term (current) use of non-steroidal anti-inflammatories (NSAID); Z79.899 Other long term (current) drug therapy; Z88.1 Allergy status to other antibiotic agents; Z88.8 Allergy status to other drugs, medicaments and biological substances; Z91.048 Other nonmedicinal substance allergy status; Z91.018 Allergy to other foods; Z88.2 Allergy status to sulfonamides

== ENCOUNTER → 2019-07-01 | Outpatient (REF) | payer OTHER ==
[~2019-07-01] MED LIST changes: +ADDE20TA PO; +CLOZ100T2 PO; +D 50CAP3 PO; +DEXA4TA PO; +DOCU100C17 PO; +FERR1TAB8 PO; +NORC1TAB7 PO; +ONDA8TAB10 PO; +PROC10TA4 PO; +ROPI2TAB3 PO; +ROZE8TAB16 PO; +SENN1TAB8 PO; +TORS20TA2 PO; +VENL75CA2 PO
== END ==
LOC: M LAB REF 12:17
PROVIDERS: ATTEND Physician Assistant
DX: L02.91 Cutaneous abscess, unspecified (principal)

== ENCOUNTER → 2019-07-07 | Outpatient (CLI) | payer OTHER ==
[~2019-07-07] MED LIST changes: +ISOVUE-370 76% 100ML VIAL (Q9967) As Ordered ONE; +SENN-80 PO; -SENN1TAB8 PO
--- NOTE | 2019-07-07 15:08 | REP ---
CT SOFT TISSUE NECK: CT soft tissues neck performed following the intravenous administration of 100 mL Isovue 370. Sagittal and coronal reconstruction images are performed. There are no prior studies for comparison. Along the right jugular vein, at the angle of the right mandible, there is a mildly enlarged lymph node, measuring 2.1 x 1.2 cm. A lymph node is seen at the same location on the left with a short axis dimension of 1 cm, upper limits of normal. No other adenopathy is seen and there is no other evidence of soft tissue mass. Parotid, submandibular and thyroid glands are unremarkable and homogeneous in density. Airway is patent with no abnormality. Visualized osseous structures are unremarkable. Visualized paranasal sinuses are clear. Epiglottic is normal. There is no prevertebral soft tissue swelling. The adenoids are not enlarged, nor are the palatine tonsils. IMPRESSION: Mildly enlarged lymph node along the posterior margin of the angle of the right mandible, 2.1 x 1.2 cm. No other evidence of adenopathy or mass. Electronically Signed by Mauricio Cruz MD 07/07/2019 03:48 P
== END ==
LOC: M RAD 14:01
PROVIDERS: ATTEND Internal Medicine Medical Oncology
DX: R22.1 Localized swelling, mass and lump, neck (principal); Z85.3 Personal history of malignant neoplasm of breast
CPT/HCPCS: 70491; Q9967

== ENCOUNTER → 2019-07-11 | Outpatient (REF) | payer OTHER ==
[~2019-07-11] MED LIST changes: -ISOVUE-370 76% 100ML VIAL (Q9967) As Ordered ONE
[2019-07-11 16:58] LABS: BASO # 0.1 10^3/uL (0.0-0.2); BASO % 1.3 % (0.0-1.0); EOS % 0.1 % (0.0-3.0); HEMATOCRIT 41.3 % (36.0-47.0); HEMOGLOBIN 13.3 g/dl (12.0-15.5); LYMPH # 0.9 10^3/uL (1.5-5.0); LYMPH % 11.1 % (24.0-44.0); MEAN CORPUSCULAR HEMOGLOBIN 28.5 pg (27.0-33.0); MEAN CORPUSCULAR HGB CONC 32.2 g/dl (32.0-36.5); MEAN CORPUSCULAR VOLUME 88.6 fl (80.0-96.0); MONO # 0.3 10^3/uL (0.0-0.8); MONO % 3.8 % (0.0-5.0); NEUTROPHILS # 6.5 10^3/uL (1.5-8.5); NEUTROPHILS % 79.3 % (36.0-66.0); PLATELET COUNT, AUTOMATED 469 10^3/uL (150-450); RED BLOOD COUNT 4.66 10^6/uL (4.00-5.40); WHITE BLOOD COUNT 8.2 10^3/uL (4.0-10.0)
[2019-07-11 17:10] LABS: ALBUMIN 3.9 GM/DL (3.2-5.2); ALT/SGPT 38 U/L (12-78); BILIRUBIN,TOTAL 0.3 MG/DL (0.2-1.0); BLOOD UREA NITROGEN 12 MG/DL (7-18); CALCIUM LEVEL 9.5 MG/DL (8.5-10.1); CARBON DIOXIDE LEVEL 26 MEQ/L (21-32); CHLORIDE LEVEL 106 MEQ/L (98-107); CREATININE FOR GFR 0.92 MG/DL (0.55-1.30); GLOMERULAR FILTRATION RATE > 60.0 (>58); GLUCOSE, FASTING 117 MG/DL (70-100); SODIUM LEVEL 139 MEQ/L (136-145); TOTAL PROTEIN 7.7 GM/DL (6.4-8.2)
== END ==
LOC: M LAB REF 16:18
PROVIDERS: ATTEND Internal Medicine Medical Oncology
DX: R22.1 Localized swelling, mass and lump, neck (principal); Z85.3 Personal history of malignant neoplasm of breast

== ENCOUNTER 2019-07-22 13:01 | Inpatient (IN) | payer MEDICAID, OTHER ==
[~2019-07-22] VITALS: Ht 165.1 cm; Wt 112.7 kg
[2019-07-22 13:56] LABS: HEMATOCRIT 40.3 % (36.0-47.0); MEAN CORPUSCULAR HEMOGLOBIN 29.1 pg (27.0-33.0); MEAN CORPUSCULAR HGB CONC 32.3 g/dl (32.0-36.5); MEAN CORPUSCULAR VOLUME 90.2 fl (80.0-96.0); PLATELET COUNT, AUTOMATED 259 10^3/uL (150-450); RED BLOOD COUNT 4.47 10^6/uL (4.00-5.40); WHITE BLOOD COUNT 15.2 10^3/uL (4.0-10.0)
[2019-07-22 14:29] LABS: AMPHETAMINES LEVEL URINE NEGATIVE (NEGATIVE); BARBITURATES URINE NEGATIVE (NEGATIVE); BENZODIAZEPINES URINE NEGATIVE (NEGATIVE); CANNABINOIDS URINE NEGATIVE (NEGATIVE); COCAINE METABOLITE URINE NEGATIVE (NEGATIVE); METHADONE URINE NEGATIVE (NEGATIVE); OPIATES URINE NEGATIVE (NEGATIVE); PHENCYCLIDINE URINE NEGATIVE (NEGATIVE)
[2019-07-22 14:45] LABS: ACETAMINOPHEN LEVEL < 2.0 UG/ML (10.0-30.0); ALBUMIN 3.8 GM/DL (3.2-5.2); ALT/SGPT 72 U/L (12-78); BILIRUBIN,DIRECT < 0.1 MG/DL (0.0-0.2); BILIRUBIN,TOTAL 0.3 MG/DL (0.2-1.0); BLOOD UREA NITROGEN 14 MG/DL (7-18); CARBON DIOXIDE LEVEL 27 MEQ/L (21-32); CHLORIDE LEVEL 103 MEQ/L (98-107); CREATININE FOR GFR 0.96 MG/DL (0.55-1.30); ETHYL ALCOHOL (ETHANOL) < 0.003 % (0.000-0.010); GLOMERULAR FILTRATION RATE > 60.0 (>58); GLUCOSE, FASTING 94 MG/DL (70-100); POTASSIUM SERUM 3.7 MEQ/L (3.5-5.1); SALICYLATE LEVEL < 1.7 MG/DL (5.0-30.0); SODIUM LEVEL 138 MEQ/L (136-145); TOTAL PROTEIN 7.3 GM/DL (6.4-8.2)
[2019-07-22] MEDS ORDERED: VITA500079 PO (15:34)
[2019-07-22] MEDS ORDERED: ONDA8TAB10 PO (15:36)
[2019-07-22] MEDS ORDERED: PROC10TA4 PO (15:38)
[2019-07-22] MEDS ORDERED: DEXA4TA PO (15:41)
[2019-07-22] MEDS ORDERED: MIRT1TAB16 PO (15:41)
[2019-07-22] MEDS ORDERED: NALT50TA4 PO (15:41)
[2019-07-22] MEDS ORDERED: DOCU100C16 PO (15:41)
[2019-07-22] MEDS ORDERED: MAALOX 30 ML SUSP *UDC PO PRN (22:30)
[2019-07-22] MEDS ORDERED: MOM 30ML SUSPENSION UDC PO PRN (22:30)
[2019-07-22] MEDS ORDERED: traZODone 50 MG TAB PO PRN (22:30)
[2019-07-23 00:08] VITALS: BP 129/88
[2019-07-23] MEDS ORDERED: ONDANSETRON 4 MG TAB PO PRN (00:45)
[2019-07-23 06:28] VITALS: BP 142/81
[2019-07-23] MEDS: PILL CUTTER 1 EACH XX PRN ×4 (08:38→20:48)
[2019-07-23] MEDS: MYCOPHENOLATE MOFETIL 250 MG CAP (J7517) PO SCH ×3 (08:39→20:47)
[2019-07-23] MEDS: PYRIDOSTIGMINE 60 MG TAB PO SCH ×4 (08:39→20:45)
[2019-07-23] MEDS: OMEPRAZOLE 20 MG CAP PO SCH (08:40)
[2019-07-23] MEDS: TORSEMIDE 20 MG TAB PO SCH (08:40)
[2019-07-23] MEDS: VITAMIN D 1,000 INTERNATIONAL UNITS TABLET PO SCH (08:40)
[2019-07-23] MEDS: rOPINIRole 0.25 MG TAB(REQUIP) PO SCH (08:40)
[2019-07-23] MEDS: BACLOFEN 10 MG TAB PO SCH ×3 (08:40→20:45)
[2019-07-23] MEDS: ACYCLOVIR 200 MG CAPSULE PO SCH ×2 (08:40→20:44)
[2019-07-23] MEDS: FOLIC ACID 1 MG TAB PO SCH (08:40)
[2019-07-23] MEDS: VENLAFAXINE **XR** 75MG CAPSULE PO SCH (08:40)
[2019-07-23] MEDS: NALTREXONE 50 MG TAB PO SCH (08:40)
[2019-07-23] MEDS: DOCUSATE SODIUM 100 MG CAP PO SCH (08:40)
[2019-07-23] MEDS: ACETAMINOPHEN TAB 650MG DOSE (2X325MG) PO PRN (13:27)
--- NOTE | 2019-07-23 15:31 | HPE ---
DATE OF ADMISSION: 07/22/2019 CHIEF COMPLAINT: Depression. HISTORY OF PRESENTING ILLNESS: This is a 39-year-old female with a history of depressive disorder, myasthenia gravis, stage 2 ER positive, MA positive, HER2/ave negative invasive ductal carcinoma of the right breast with right breast hematoma evacuated in April 2019, with lymph node dissection, status post total abdominal hysterectomy, retained ovaries, status post thymectomy from myasthenia gravis, fibromyalgia, reflux, depression, attention deficit disorder (ADD), obstructive sleep apnea (OPHELIA) with continuous positive airway pressure (CPAP), hearing loss, admitted to the inpatient mental health until due to severe depression and self-cutting. Patient says that her fibromyalgia is acting up and has not been taking her Tylenol or naltrexone recently. Her myasthenia appears to be stable. She usually sees Mitra Land from Dr. Peguero's office at [facility]. Patient otherwise denies any other new symptoms. Denies fever, chills, weight gain, weight loss, changes in appetite, diplopia, photophobia. Denies any sore throat, nasal congestion, coryza, shortness of breath, chest pain, pressure, tightness, lightheadedness, dizziness, nausea, vomiting, diarrhea, abdominal pain, constipation, bright red blood per rectum, melena, black tarry stools, dysuria, urgency, frequency, flank pain. Denies any nocturia, polyphagia, polydipsia, upper or lower extremity weakness at this time or paresthesias. All other systems otherwise are negative aside from other findings with positive for depression. PAST MEDICAL HISTORY: Myasthenia gravis, status post thymectomy, lumpectomy, and lymph node dissection for stage 2 ER positive, MA positive, HER2/ave negative invasive ductal carcinoma of the right breast. Right breast hematoma, status post surgical evacuation April 2019, total abdominal hysterectomy with retained ovaries, reflux, depression, ADD, OPHELIA with CPAP, fibromyalgia, hearing loss, mild mitral regurgitation. PAST SURGICAL HISTORY: Lymph node dissection, lumpectomy of the right breast, total abdominal hysterectomy with retained ovaries, thymectomy for myasthenia gravis, cholecystectomy, bladder stimulator placement and resection, tubal ligation. HOSPITAL MEDICATIONS: - Clozaril 100 mg nightly - Mobic 15 mg nightly - Requip 2 mg nightly - Senokot two tabs nightly - Remeron 30 mg nightly - acyclovir 400 mg twice a day - baclofen 10 mg three times a day - Colace 100 mg every morning - folic acid 1 mg daily - Cellcept 1 gram three times a day - naltrexone 50 mg daily - Prilosec 20 mg daily - Mestinon 90 mg four times a day - Requip 0.25 mg daily - torsemide 20 mg daily - Effexor XR 225 mg daily - vitamin D 5000 units daily - Zofran 8 mg every 6 hours as needed - trazodone 50 mg nightly as needed - Tylenol 650 mg every 6 hours as needed - Milk of Magnesia 30 mL daily as needed - Mylanta 30 mL every 4 hours as needed SOCIAL HISTORY: Former smoker. No alcohol or recreational drug use. Unemployed. FAMILY HISTORY: Positive for uterine cancer, lung, colon, rectal, breast cancer, multiple family members, testicular cancer, ovarian and Alzheimer's. ALLERGIES: Multiple allergies - GRASS, TAPE, TREES, BANANA, AMITRIPTYLINE, ADHESIVE, BENZTROPINE, BUPROPION, CLINDAMYCIN, CYCLOBENZAPRINE, PREGABALIN, MOLD, MINOCYCLINE, METAXALONE, GABAPENTIN, DIVALPROEX SODIUM, and CYCLOBENZAPRINE. REVIEW OF SYSTEMS: Per history of the present illness; 12-point system otherwise negative. PHYSICAL EXAMINATION: Temperature 96.9, pulse 99, respiratory rate 18, blood pressure 142/81, 99% on room air. Generally, awake, alert, oriented to person, place and time. Answering questions appropriately. Obese with thick neck. No jugular venous distention (JVD), thyromegaly. Moist mucous membranes. Wearing a mask. Lungs are clear to auscultation. No wheezing, rales or rhonchi. Postop changes in the right breast. Heart: S1, S2, sinus rhythm. No murmurs, rubs, or gallops. Abdomen is soft, nontender, nondistended. Positive bowel sounds. Extremities: No cyanosis, clubbing or any pitting edema. Patient has multiple self-inflicted cuttings on the right arm. LAB DATA: 07/22/2019: CBC, metabolic panel have all been reviewed. Liver function test, TSH are all normal. ASSESSMENT AND PLAN: This is a 39-year-old female with a history of invasive right breast cancer with strong family history, stage 2 ER positive, MA positive, HER2 negative, status post lumpectomy and lymph node dissection, total abdominal hysterectomy with retained ovaries, myasthenia gravis, status post thymectomy, fibromyalgia, depression, reflux, OPHELIA with CPAP, mild mitral regurgitation, hearing loss and ADD, admitted to inpatient mental health unit for depression. CURRENT ISSUES: 1. Depression. Currently managed by psychiatric team. 2. Herpes, on Zovirax 400 mg twice a day. 3. Myasthenia gravis. Continued on CellCept and Mestinon, Requip. 4. Chronic venous insufficiency, on chronic torsemide. 5. Obstructive sleep apnea. Should resume on home CPAP at hospital discharge. 6. History of right breast invasive ductal carcinoma, stage 2. Outpatient followup with her breast surgeon and medical oncologist. 7. History of myasthenia gravis without acute exacerbation, status post thymectomy. Followup with neurology, Dr. Peguero, as outpatient or Mitra Land. 8. Reflux. Continued on Prilosec 20 mg daily. 9. Folic acid deficiency, on folic acid replacement 1 mg daily. 10. Vitamin D deficiency, on 5000 units daily. MTDD
[2019-07-23 16:26] VITALS: BP 142/82
[2019-07-23] MEDS: MELOXICAM (MOBIC) 7.5 MG TAB PO SCH (20:44)
[2019-07-23] MEDS: SENNA 8.6 MG TAB (SENOKOT) PO SCH (20:44)
[2019-07-23] MEDS: MIRTAZAPINE 15 MG TAB PO SCH (20:44)
[2019-07-23] MEDS: cloZAPine 100 MG TAB (S0136) PO SCH (20:44)
[2019-07-23] MEDS: rOPINIRole 1MG TAB PO SCH (20:46)
[2019-07-24 06:40] VITALS: BP 148/90
[2019-07-24] MEDS: PILL CUTTER 1 EACH XX PRN ×3 (08:29→17:20)
[2019-07-24] MEDS: PYRIDOSTIGMINE 60 MG TAB PO SCH ×4 (08:29→21:02)
[2019-07-24] MEDS: NALTREXONE 50 MG TAB PO SCH (08:30)
[2019-07-24] MEDS: rOPINIRole 0.25 MG TAB(REQUIP) PO SCH (08:30)
[2019-07-24] MEDS: FOLIC ACID 1 MG TAB PO SCH (08:30)
[2019-07-24] MEDS: MYCOPHENOLATE MOFETIL 250 MG CAP (J7517) PO SCH ×3 (08:30→21:01)
[2019-07-24] MEDS: BACLOFEN 10 MG TAB PO SCH ×3 (08:30→21:02)
[2019-07-24] MEDS: DOCUSATE SODIUM 100 MG CAP PO SCH (08:30)
[2019-07-24] MEDS: VENLAFAXINE **XR** 75MG CAPSULE PO SCH (08:30)
[2019-07-24] MEDS: TORSEMIDE 20 MG TAB PO SCH (08:30)
[2019-07-24] MEDS: ACYCLOVIR 200 MG CAPSULE PO SCH ×2 (08:30→21:01)
[2019-07-24] MEDS: VITAMIN D 1,000 INTERNATIONAL UNITS TABLET PO SCH (08:30)
[2019-07-24] MEDS: OMEPRAZOLE 20 MG CAP PO SCH (08:30)
[2019-07-24] MEDS: ACETAMINOPHEN TAB 650MG DOSE (2X325MG) PO PRN ×2 (11:46→18:01)
[2019-07-24 16:21] VITALS: BP 131/80
[2019-07-24] MEDS: SENNA 8.6 MG TAB (SENOKOT) PO SCH (21:01)
[2019-07-24] MEDS: MELOXICAM (MOBIC) 7.5 MG TAB PO SCH (21:01)
[2019-07-24] MEDS: MIRTAZAPINE 15 MG TAB PO SCH (21:02)
[2019-07-24] MEDS: rOPINIRole 1MG TAB PO SCH (21:02)
[2019-07-24] MEDS: cloZAPine 100 MG TAB (S0136) PO SCH (21:02)
[2019-07-25 06:34] VITALS: BP 132/78
--- NOTE | 2019-07-25 09:11 | MHIPNPDOC ---
[facility] Progress Note Progress Note Inpatient Progress Note Mitra Taylor MRN: N/A Date of : N/A Date of Service: 07/25/2019 History of Present Illness The patient a 38-year-old woman with a likely history of borderline personality disorder and depression presents with suicidality. She has multiple conflicting, controlled prescriptions that are likely unhelpful for her as recent studies have indicated borderline personality disorder decompensates in the context of b enzodiazepine use. The patient has made various self-harm statements, but all have appeared very vain and primarily manipulative and behavioral. Interval History The patient was met with today. She reports she is doing much better and has been able to cope better than she has been on the unit. She reports that she has difficulties with her anxiety related to her current situation of having cancer, but reports that she is feeling more focused as she is going to continue with her chemotherapy. She has had some reported suicidal ideation over the previous evening, however, upon further investigation appears to be more hopelessness at times rather than overt suicidality. Review Of Systems Cardiovascular: Denies Chest pain or palpations GI: Denies Nausea, vomiting, or bowel changes Respiratory: Denies shortness of breath or cough Neuro: Denies dizziness, tremors Derm: Denies any rashes or pruritus MSK: Denies any muscle tightness or stiffness HEENT: Denies any vision changes or headaches Psychotherapy None on this visit. Vital Signs Reviewed. Mental Status Examination General: Well dressed with good hygiene Speech: Spontaneous and fluid Thought processes: Linear and logical MSK: Smooth and coordinated gait, no signs of tremors or involuntary orofacial movements Thought content: Future orientated Abstract reasoning, and computation: Intact Description of associations: Intact Description of abnormal or psychotic thoughts: Denies any suicidal or homicidal ideation. Denies any auditory or visual hallucinations. Does not appear to be responding to internal stimuli. Does not appear to be endorsing any bizarre or paranoid ideation. Judgment: fair Insight: fair Orientation: Alert and orientated 3 Cognition: Grossly normal Recent and remote memory: Intact Attention span and concentration: Intact Fund of knowledge: Adequate Mood: "okay" Affect: Euthymic with a full range Diagnoses Adjustment disorder with disruption of conduct. Borderline personality disorder. Cannabis use disorder, mild. Assessment and Plan Adjustment disorder: Continue patient's home medications. Borderline personality disorder: Continue clozapine and naltrexone as off label treatments. CBC with differential ordered. Disposition We will observe and if continues to be without suicidality, we will honor shelby meza's request to be discharged tomorrow. She has a port scheduled to be put in on Thursday. Time Spent 15 minutes. Thursday Vital Signs Vital Signs Date Time Temp Pulse Resp B/P (MAP) Pulse Ox O2 Delivery O2 Flow Rate FiO2 07/25/19 06:34 99.1 80 16 132/78 (96) 07/24/19 08:22 Room Air 07/24/19 06:40 97 Current Medications Current Medications Medications (Trade) Dose Ordered Sig/Ben Route PRN Reason Start Time Stop Time Status Last Admin Dose Admin Acetaminophen (Tylenol Tab) 650 mg Q6HP PRN PO HEADACHE or DISCOMFORT 07/22/19 22:30 07/24/19 18:01 Acyclovir (Zovirax) 400 mg BID PO 07/23/19 09:00 07/24/19 21:01 Al Hydrox/Mg Hydrox/Simethicone (Mylanta) 30 ml Q4HP PRN PO HEARTBURN/INDIGESTION 07/22/19 22:30 Baclofen (Lioresal) 10 mg TID PO 07/23/19 09:00 07/24/19 21:02 Clozapine (Clozaril) 100 mg QHS PO 07/23/19 21:00 07/24/19 21:02 Docusate Sodium (Colace) 100 mg QAM PO 07/23/19 09:00 07/24/19 08:30 Folic Acid (Folic Acid) 1 mg DAILY PO 07/23/19 09:00 07/24/19 08:30 Home Med (Med Rec Complete!) ASDIRECTED XX 07/22/19 15:45 07/22/19 15:43 DC Magnesium Hydroxide (Milk Of Magnesia) 30 ml DAILYPRN PRN PO CONSTIPATION 07/22/19 22:30 Meloxicam (Mobic) 15 mg QHS PO 07/23/19 21:00 07/24/19 21:01 Mirtazapine (Remeron) 30 mg QHS PO 07/23/19 21:00 07/24/19 21:02 Mycophenolate Mofetil (Cellcept) 1,000 mg TID PO 07/23/19 09:00 07/24/19 21:01 Naltrexone HCl (Revia) 50 mg DAILY PO 07/23/19 09:00 07/24/19 08:30 Omeprazole (PriLOSEC) 20 mg DAILY PO 07/23/19 09:00 07/24/19 08:30 Ondansetron HCl (Zofran) 8 mg Q6H PRN PO NAUSEA OR VOMITING 07/23/19 00:45 Pyridostigmine [place] (Mestinon) 90 mg QID PO 07/23/19 09:00 07/24/19 21:02 Ropinirole HCl (Requip) 0.25 mg DAILY PO 07/23/19 09:00 07/24/19 08:30 Ropinirole HCl (Requip) 2 mg QHS PO 07/23/19 21:00 07/24/19 21:02 Senna (Senokot) 2 tab QHS PO 07/23/19 21:00 07/24/19 21:01 Torsemide (Demadex) 20 mg DAILY PO 07/23/19 09:00 07/24/19 08:30 Trazodone HCl (Desyrel) 50 mg QHSP PRN PO INSOMNIA 07/22/19 22:30 Venlafaxine HCl (Effexor Xr) 225 mg DAILY PO 07/23/19 09:00 07/24/19 08:30 Vitamin D (Vitamin D) 5,000 units DAILY PO 07/23/19 09:00 07/24/19 08:30 Allergies Coded Allergies: amitriptyline (Verified Allergy, Severe, SWELLING, 07/12/18) Grass (Verified Allergy, Mild, ITCHY EYES,NOSE, 12/17/17) TAPE (Verified Allergy, Mild, RASH/BLISTER, 07/22/19) TREES (Verified Allergy, Mild, ITCHY EYES,NOSE, 12/17/17) adhesive (Verified Allergy, Unknown, 07/22/19) divalproex sodium (Verified Allergy, Unknown, 07/22/19) minocycline (Verified Allergy, Unknown, 07/12/18) mold (Verified Allergy, Unknown, 07/12/18) tetracycline (Verified Allergy, Unknown, 07/22/19) bupropion (Verified Adverse Reaction, Intermediate, ESOPHAGEAL SPASMS, 07/22/19) banana (Verified Adverse Reaction, Mild, VOMITING, 07/22/19) benztropine (Verified Adverse Reaction, Mild, BLURRED VISION, 07/22/19) clindamycin (Verified Adverse Reaction, Mild, HEART BURN, 07/22/19) gabapentin (Verified Adverse Reaction, Mild, extreme weakness, 07/22/19) metaxalone (Verified Adverse Reaction, Mild, itching, 07/22/19) pregabalin (Verified Adverse Reaction, Mild, EDEMA, 07/22/19) sulfamethoxazole (Verified Adverse Reaction, Mild, DIARRHEA, 07/22/19) tizanidine (Verified Adverse Reaction, Mild, ITCHING, 07/22/19) trazodone (Verified Adverse Reaction, Mild, EDEMA, 07/22/19) trimethoprim (Verified Adverse Reaction, Mild, DIARRHEA, 07/22/19) vilazodone (Verified Adverse Reaction, Mild, MOOD CHANGES, 07/22/19) cyclobenzaprine (Verified Adverse Reaction, Unknown, IRRITABILITY, 07/12/18) valproic acid (Unverified Adverse Reaction, Unknown, DOES NOT METABOLIZE, 07/22/19) MANJULA ALBRIGHT DO July 25, 2019 09:11
[2019-07-25] MEDS: DOCUSATE SODIUM 100 MG CAP PO SCH (09:12)
[2019-07-25] MEDS: rOPINIRole 0.25 MG TAB(REQUIP) PO SCH (09:12)
[2019-07-25] MEDS: FOLIC ACID 1 MG TAB PO SCH (09:12)
[2019-07-25] MEDS: OMEPRAZOLE 20 MG CAP PO SCH (09:12)
[2019-07-25] MEDS: NALTREXONE 50 MG TAB PO SCH (09:13)
[2019-07-25] MEDS: TORSEMIDE 20 MG TAB PO SCH (09:13)
[2019-07-25] MEDS: VENLAFAXINE **XR** 75MG CAPSULE PO SCH (09:13)
[2019-07-25] MEDS: BACLOFEN 10 MG TAB PO SCH ×3 (09:13→21:04)
[2019-07-25] MEDS: VITAMIN D 1,000 INTERNATIONAL UNITS TABLET PO SCH (09:13)
[2019-07-25] MEDS: PYRIDOSTIGMINE 60 MG TAB PO SCH ×4 (09:14→21:05)
[2019-07-25] MEDS: MYCOPHENOLATE MOFETIL 250 MG CAP (J7517) PO SCH ×3 (09:14→21:09)
[2019-07-25] MEDS: ACYCLOVIR 200 MG CAPSULE PO SCH ×2 (10:18→21:03)
[2019-07-25 12:18] LABS: BASO # 0.1 10^3/uL (0.0-0.2); BASO % 0.9 % (0.0-1.0); EOS # 0.3 10^3/uL (0.0-0.5); EOS % 2.7 % (0.0-3.0); HEMATOCRIT 41.4 % (36.0-47.0); HEMOGLOBIN 13.3 g/dl (12.0-15.5); LYMPH # 1.7 10^3/uL (1.5-5.0); MEAN CORPUSCULAR HEMOGLOBIN 28.5 pg (27.0-33.0); MEAN CORPUSCULAR HGB CONC 32.1 g/dl (32.0-36.5); MEAN CORPUSCULAR VOLUME 88.8 fl (80.0-96.0); MONO # 0.7 10^3/uL (0.0-0.8); MONO % 6.8 % (0.0-5.0); NEUTROPHILS # 7.3 10^3/uL (1.5-8.5); NEUTROPHILS % 69.7 % (36.0-66.0); PLATELET COUNT, AUTOMATED 232 10^3/uL (150-450); RED BLOOD COUNT 4.66 10^6/uL (4.00-5.40); WHITE BLOOD COUNT 10.5 10^3/uL (4.0-10.0)
[2019-07-25 15:35] VITALS: BP 136/90
[2019-07-25] MEDS: MIRTAZAPINE 15 MG TAB PO SCH (21:03)
[2019-07-25] MEDS: SENNA 8.6 MG TAB (SENOKOT) PO SCH (21:03)
[2019-07-25] MEDS: MELOXICAM (MOBIC) 7.5 MG TAB PO SCH (21:04)
[2019-07-25] MEDS: cloZAPine 100 MG TAB (S0136) PO SCH (21:04)
[2019-07-25] MEDS: rOPINIRole 1MG TAB PO SCH (21:09)
[2019-07-25] MEDS: ACETAMINOPHEN TAB 650MG DOSE (2X325MG) PO PRN (21:10)
[2019-07-26 06:34] VITALS: BP 135/65
[2019-07-26] MEDS: VENLAFAXINE **XR** 75MG CAPSULE PO SCH (08:23)
[2019-07-26] MEDS: ACYCLOVIR 200 MG CAPSULE PO SCH (08:23)
[2019-07-26] MEDS: PYRIDOSTIGMINE 60 MG TAB PO SCH (08:24)
[2019-07-26] MEDS: rOPINIRole 0.25 MG TAB(REQUIP) PO SCH (08:26)
[2019-07-26] MEDS: VITAMIN D 1,000 INTERNATIONAL UNITS TABLET PO SCH (08:26)
[2019-07-26] MEDS: BACLOFEN 10 MG TAB PO SCH (08:26)
[2019-07-26] MEDS: TORSEMIDE 20 MG TAB PO SCH (08:26)
[2019-07-26] MEDS: OMEPRAZOLE 20 MG CAP PO SCH (08:26)
[2019-07-26] MEDS: MYCOPHENOLATE MOFETIL 250 MG CAP (J7517) PO SCH (08:27)
[2019-07-26] MEDS: NALTREXONE 50 MG TAB PO SCH (08:27)
[2019-07-26] MEDS: FOLIC ACID 1 MG TAB PO SCH (08:27)
[2019-07-26] MEDS: DOCUSATE SODIUM 100 MG CAP PO SCH (08:27)
--- NOTE | 2019-07-26 08:32 | MHHPE ---
DATE OF ADMISSION: 07/22/2019 This is a telemedicine video assessment, she is seen in the presence of staff. VITAL SIGNS: Blood pressure 142/82, pulse 98, temperature 98.6. CHIEF COMPLAINT: She is suicidal. SUBJECTIVE: She is [id number]. She is . Has a child. She, her and the child live together. The patient has been depressed. Attends outpatient care at the [facility]. Has a long history of psychiatric difficulties, depression, and says had recently her therapist. Has been feeling increasingly depressed the last few weeks, felt hopeless, and then began thinking of take her life. Has a tendency to cut went distressed, including in order to obtain emotional pain relief, says has been doing that, and then decided to take 10 of her Ativan, each one being a milligram. Says she blacked out, woke up, attended her appointment to see her therapist, informed her therapist of that, was sent to the hospital for admission. Says is still "on the fence" these are her words, regarding having survived. She realizes she wishes to survive because of her young child. Has several medical difficulties, diagnosed a few months ago with breast cancer, and is undergoing treatment for that, including chemotherapy, sees the local center, Dr. Funez. Also has a long history of myasthenia gravis, sees neurology locally. She says the myasthenia gravis was triggered by clozapine, which she first used about 12-13 years ago. Says was at [facility] during that time. Found the clozapine quite helpful. Says was put on it because most other medicines have been tried, in terms of antidepressants. As far as she is aware does not have any psychiatric features. Denies any history of hallucinations or delusions. After a gap of several years, says had seen Dr. Isaac Cavanaugh at [place], in October a colleague had suggested the patient restarting clozapine. She will be seeing Dr. Cavanaugh for essentially the pain management, which he suggest. Says was seeing a clinician here, [place], who recently retired. She says he agreed to start her on clozapine, recently, says she felt better on it, and has been less depressed. Says more interactive with her , their relationship has improved, and that she does not get despondent as often. PAST PSYCHIATRIC HISTORY: She has had previous admissions, last visit here last October, was here for about 12 days, seen by Dr. Montes. Was diagnosed with unspecified depressive disorder, some concerns regarding major depressive disorder versus substance use depression. She has also been diagnosed with borderline personality disorder and cannabis use disorder. Some question if she has had difficulties with substances, as well as drinking in the past. Please refer to Dr. Montes's summary for details related to that particular hospitalization. On various psychotropics, and they currently include clozapine 100 mg at night, mirtazapine 30 mg at night, naltrexone 50 mg daily, venlafaxine 225 mg daily, trazodone 50 mg at night. She says she takes one here for sleep. FAMILY PSYCHIATRIC HISTORY/SUBSTANCE ABUSE HISTORY: Please refer to previous summary. MEDICAL HISTORY: Has history of breast cancer, right breast, had surgery related to that, April 2016, with lymph node dissection. She has had a total abdominal hysterectomy, has retained her ovaries however. Has had a thymectomy for myasthenia gravis. Other difficulties include obstructive sleep apnea, has a continuous positive airway pressure (CPAP) machine. She has been diagnosed with fibromyalgia in the past. There was some question of mild mitral valve regurgitation. MEDICATIONS: Please see the list above, in addition to that, these include: - Mobic 15 mg at night - Requip 20 mg nightly. - acyclovir 400 mg twice a day - baclofen 20 mg three times a day - Colace 100 mg every morning - folic acid 1 mg daily - Cellcept 1 gram three times a day - naltrexone 50 mg daily - Mestinon 90 mg four times a day Other medications include: - Requip - torsemide - venlafaxine - Zofran ALLERGIES: Has multiple allergies, relative to GRASS, TAPE, TREES, BANANA, AMITRIPTYLINE, ADHESIVE, BENZTROPINE, BUPROPION, CLINDAMYCIN, CYCLOBENZAPRINE, PREGABALIN, MOLD, MINOCYCLINE, METAXALONE, GABAPENTIN, DIVALPROEX, and CYCLOBENZAPRINE. SOCIAL HISTORY: This is also as detailed in previous history summary, she lives with her and son. MENTAL STATUS EXAMINATION: She is neat. She is cooperative. Wearing a mask, as a precaution. No agitation. No psychomotor retardation. She is coherent. Affect is restricted but reactive. Has suicidal thoughts, no firm plans. No evidence of psychosis. Does not appear to be internally preoccupied. Cognition is grossly intact. Her intellect is average. Judgment and insight are questionable. ASSESSMENT: Major depressive disorder, recurrent, severe, without psychotic features. Borderline personality disorder by history. Cannabis use disorder by history. Several medical difficulties including breast cancer, myasthenia gravis. Clinically significantly depressed, took an overdose, recently, and then called her therapist, then was brought here for admission. PLAN: She is admitted the inpatient psychiatry unit, placed on relevant precautions. We will look at obtaining collateral information. She is to be encouraged to participate in activities on the unit. We will keep her on her current medication regimen, this may not necessary require a change, but should it do so, will institute it. Will look at encouraging her to participate in activities in the unit as tolerated. She will be discharged with followup when she is stabilized, a 5-7 day stay. The assessment took 30 minutes.
--- NOTE | 2019-07-26 09:44 | MHDSPDOC ---
[facility] Discharge Summary Discharge Summary DATE OF ADMISSION: July 22, 2019 at 22:22 DATE OF DISCHARGE: 07/26/19 Discharge Mitra Taylor MRN: N/[id number] Date of : N/A Date of Service: 07/26/2019 Diagnoses Adjustment disorder with disruption of conduct. Borderline personality disorder. Cannabis use disorder, mild. History of Present Illness The patient a 38-year-old woman with a likely history of borderline personality disorder and depression presents with suicidality. She has multiple conflicting, controlled prescriptions that are likely unhelpful for her as recent studies have indicated borderline personality disorder decompensates in the context of benzodiazepine use. The patient has made various self-harm statements, but all have appeared very vain and primarily manipulative and behavioral. Consultants Involved Hospitalist/PCP screening. Treatment and Progress On The Unit The patient was admitted to the inpatient mental health unit. She was resumed on her home medications without any alterations. She did well and participate in treatment results significantly well suggesting adjustment disorder to her current cancer diagnosis. She had no behavioral problems while on he unit and subsequently requested discharge after making improvements in the supportive environment. Discharge Assessment 38-year-old woman with a history of borderline personality disorder and likely adjustment presents after having multiple stressors that make it difficult for her to cope with her emotions. She is treated primarily supportively that produces positive results. The patient at the time of discharge did not meet criteria for involuntary admission/extension due to having a normal mental status exam, fair insight into the situation, They are engaged in the discharge process, as well as being friendly and amenable in behavioral control and havent been engaging in any observed concerning behavior or ideation recently. They decline voluntary extension/admission at this time and must be discharged in good eduarda, as Im unable to make a case for holding the patient against their will. They may have historical risk factors of admissions and other interactions with psychiatry however, those are not modifiable from a clinical perspective. The patient will need to be discharged in good eduarda. Mental Status Examination General: Well dressed with good hygiene Speech: Spontaneous and fluid Thought processes: Linear and logical MSK: Smooth and coordinated gait, no signs of tremors or involuntary orofacial movements Thought content: Future orientated Abstract reasoning, and computation: Intact Description of associations: Intact Description of abnormal or psychotic thoughts: Denies any suicidal or homicidal ideation. Denies any auditory or visual hallucinations. Does not appear to be responding to internal stimuli. Does not appear to be endorsing any bizarre or paranoid ideation. Judgment: fair Insight: fair Orientation: Alert and orientated 3 Cognition: Grossly normal Recent and remote memory: Intact Attention span and concentration: Intact Fund of knowledge: Adequate Mood: "okay" Affect: Euthymic with a full range Follow Up The social work team worked during the predischarge meeting in order to evaluate for further issues of lethality address them fully before discharge. They worked on safety planning with the patient's family members in order to ensure that the patient will have a safe and effective discharge. Time Spent The amount of time spent in the coordination of care for this patient was approximately 45 minutes. Thursday Vital Signs/I&Os Vital Signs Date Time Temp Pulse Resp B/P (MAP) Pulse Ox O2 Delivery O2 Flow Rate FiO2 07/26/19 06:34 97.8 92 12 135/65 (88) Room Air 07/24/19 06:40 97 Laboratory Data Labs 24H Laboratory Tests 2 07/25/19 11:53: Immature Granulocyte % (Auto) 3.9H, Neutrophils (%) (Auto) 69.7H, Lymphocytes (%) (Auto) 16.0L, Monocytes (%) (Auto) 6.8H, Eosinophils (%) (Auto) 2.7, Basophils (%) (Auto) 0.9, Neutrophils # (Auto) 7.3, Lymphocytes # (Auto) 1.7, Monocytes # (Auto) 0.7, Eosinophils # (Auto) 0.3, Basophils # (Auto) 0.1, Nucleated Red Blood Cells % (auto) 0.0 CBC/BMP Laboratory Tests 07/25/19 11:53 Medications Scheduled Acyclovir (Acyclovir) 400 Mg Tab, 400 MG PO BID, (Reported) Baclofen (Baclofen) 10 Mg Tablet, 10 MG PO TID, (Reported) Cholecalciferol (Vitamin D3) (Vitamin D3) 125 Mcg (5000 Unit) Tab.rapdis, 5,000 UNITS PO DAILY, (Reported) Clozapine (Clozapine) 100 Mg Tablet, 100 MG PO QHS, (Reported) Dexamethasone (Dexamethasone) 4 Mg Tablet, 4 MG PO BID, (Reported) take 2 tabs by mouth daily the day before chemo, the day of chemo, and the day after chemo Docusate Sodium (Docusate Sodium) 100 Mg Capsule, 100 MG PO QAM, (Reported) Folic Acid (Folic Acid) 1 Mg Tab, 1 MG PO DAILY, (Reported) Meloxicam (Meloxicam) 15 Mg Tablet, 15 MG PO QHS, (Reported) Mirabegron (Myrbetriq) 50 Mg Tab, 50 MG PO DAILY, (Reported) Mirtazapine (Mirtazapine) 30 Mg Tab.rapdis, 30 MG PO QHS, (Reported) Mycophenolate Mofetil (Cellcept) 500 Mg Tab, 1,000 MG PO TID, (Reported) Naltrexone HCl (Naltrexone HCl) 50 Mg Tablet, 50 MG PO DAILY, (Reported) Omeprazole (Omeprazole) 20 Mg Capsule.dr, 20 MG PO DAILY, (Reported) Pyridostigmine [place] (Mestinon) 60 Mg Tab, 90 MG PO QID, (Reported) Ramelteon (Rozerem) 8 Mg Tablet, 8 MG PO QHS, (Reported) Ropinirole HCl (Ropinirole HCl) 0.25 Mg Tablet, 0.25 MG PO DAILY, (Reported) Ropinirole HCl (Ropinirole HCl) 2 Mg Tablet, 2 MG PO QHS, (Reported) Sennosides (Senna) 8.6 Mg Tablet, 2 TAB PO QHS for constipation for 25 Days, #100 (Reported) Torsemide (Torsemide) 20 Mg Tablet, 1 TAB PO DAILY for 30 Days, #30 (Reported) Venlafaxine HCl (Venlafaxine HCl ER) 75 Mg Cap.er.24h, 225 MG PO DAILY, (Reported) Zaleplon (Zaleplon) 10 Mg Capsule, 10 MG PO QHS, (Reported) Scheduled PRN Ondansetron HCl (Ondansetron HCl) 8 Mg Tablet, 8 MG PO Q6H PRN for NAUSEA OR VOMITING, (Reported) Prochlorperazine Maleate (Prochlorperazine Maleate) 10 Mg Tablet, 10 MG PO Q8H PRN for NAUSEA OR VOMITING for 5 Days, #20 (Reported) Allergies Coded Allergies: amitriptyline (Verified Allergy, Severe, SWELLING, 07/12/18) Grass (Verified Allergy, Mild, ITCHY EYES,NOSE, 12/17/17) TAPE (Verified Allergy, Mild, RASH/BLISTER, 07/22/19) TREES (Verified Allergy, Mild, ITCHY EYES,NOSE, 12/17/17) adhesive (Verified Allergy, Unknown, 07/22/19) divalproex sodium (Verified Allergy, Unknown, 07/22/19) minocycline (Verified Allergy, Unknown, 07/12/18) mold (Verified Allergy, Unknown, 07/12/18) tetracycline (Verified Allergy, Unknown, 07/22/19) bupropion (Verified Adverse Reaction, Intermediate, ESOPHAGEAL SPASMS, 07/22/19) banana (Verified Adverse Reaction, Mild, VOMITING, 07/22/19) benztropine (Verified Adverse Reaction, Mild, BLURRED VISION, 07/22/19) clindamycin (Verified Adverse Reaction, Mild, HEART BURN, 07/22/19) gabapentin (Verified Adverse Reaction, Mild, extreme weakness, 07/22/19) metaxalone (Verified Adverse Reaction, Mild, itching, 07/22/19) pregabalin (Verified Adverse Reaction, Mild, EDEMA, 07/22/19) sulfamethoxazole (Verified Adverse Reaction, Mild, DIARRHEA, 07/22/19) tizanidine (Verified Adverse Reaction, Mild, ITCHING, 07/22/19) trazodone (Verified Adverse Reaction, Mild, EDEMA, 07/22/19) trimethoprim (Verified Adverse Reaction, Mild, DIARRHEA, 07/22/19) vilazodone (Verified Adverse Reaction, Mild, MOOD CHANGES, 07/22/19) cyclobenzaprine (Verified Adverse Reaction, Unknown, IRRITABILITY, 07/12/18) valproic acid (Unverified Adverse Reaction, Unknown, DOES NOT METABOLIZE, 07/22/19) MANJULA ALBRIGHT DO July 26, 2019 09:44
[2019-07-26] MEDS ORDERED: REME15TA PO (10:57)
--- NOTE | 2019-07-26 14:18 | MHIPN ---
DATE: 07/24/2019 VITAL SIGNS: Blood pressure 148/90. Pulse 106. Temperature 98.5. This is a telemedicine video followup assessment. CHIEF COMPLAINT: Feels depressed. SUBJECTIVE: She is seen for followup, in the presence of staff. Says feels depressed, but that she slept relatively well, says got up several times at night, was able to go back to sleep, does tend to wake up more frequently generally. Somewhat less anxious. Has had temptations to cut, does not intend doing so, but says if she was outside hospital, may have acted on them and possibly also on suicidal thoughts. MENTAL STATUS EXAMINATION: She is neat. She is cooperative. She is wearing a mask for the virus precautions. No agitation. No psychomotor retardation. Coherent. Affect reactive as far as I can determine. Has suicidal thoughts. No firm plans. No homicidal ideas or intents. No evidence of any psychosis at present. Cognition grossly intact. Judgment and insight remain compromised overall. Remains depressed, but possibly somewhat less anxious. PLAN: Continue current care, and medication regimen. I do not think that the medications need changing at present. It should be noted, says is on naltrexone to help with moods and pain, this was first prescribed by Dr. Cavanaugh, psychiatrist, at [place]. She has found it to be helpful. She is to be encouraged to engage in activities as best she can within the unit. Further recommendations will be made depending on the clinical picture, when she sees the assigned psychiatrist tomorrow.
== END 2019-07-26 12:15 | disposition home or self-care (01) | DRG 755 ==
LOC: M ED 13:01 → M ED INP 22:22 → M PSY 23:20
PROVIDERS: ADMIT Psychiatry & Neurology Addiction Medicine; ATTEND Psychiatry & Neurology Addiction Medicine
DX: F43.24 Adjustment disorder with disturbance of conduct (principal); G70.00 Myasthenia gravis without (acute) exacerbation; F60.3 Borderline personality disorder; F12.10 Cannabis abuse, uncomplicated; G47.33 Obstructive sleep apnea (adult) (pediatric); K21.9 Gastro-esophageal reflux disease without esophagitis; C50.911 Malignant neoplasm of unspecified site of right female breast; J30.1 Allergic rhinitis due to pollen; M79.10 Myalgia, unspecified site; Z88.8 Allergy status to other drugs, medicaments and biological substances; Z91.018 Allergy to other foods; Z91.048 Other nonmedicinal substance allergy status; Z88.1 Allergy status to other antibiotic agents; Z87.891 Personal history of nicotine dependence; Z79.899 Other long term (current) drug therapy

== ENCOUNTER → 2019-07-27 | Outpatient (CLI) | payer OTHER ==
[~2019-07-27] MED LIST changes: +ACETAMINOPHEN 325 MG TAB As Ordered ONE; +ACETAMINOPHEN TAB 650MG DOSE (2X325MG) PO ONE; +DOCU100C16 PO; +FISH306C PO; +LIDOCAINE 1% MDV 20ML VIAL As Ordered ONE; +MIDAZOLAM INJ 2MG/2ML VIAL (J2250 PER 1MG) As Ordered ONE; +PROMETHAZINE INJ 25 MG/ML VIAL (J2550) As Ordered ONE; +REME15TA PO; +ceFAZolin 2 GM/D5W 50 ML IV BAG (J0690 PER 500MG) As Ordered ONE; +diphenhydrAMINE 50MG/ML VIAL (J1200) As Ordered ONE
--- NOTE | 2019-07-27 15:37 | REP ---
IR Ultrasound and fluoroscopy-guided port placement. IR Ultrasound of the neck. IR Moderate sedation. Clinical information: Right sided breast cancer. Physician: Dr. Wong. Procedure: The patient was advised of the benefits, risks, and alternatives of the procedure and informed consent was obtained. A time-out was performed with verification of the patient's name, MRN, site of procedure and type of procedure to be performed. The patient was positioned in the supine position on the angiographic table. The site was prepped and draped in the usual sterile fashion. Moderate sedation was performed by the physician including the presence of an independent trained observer who assisted and monitored the patient's level of consciousness and physiologic status. Following the administration of Fentanyl and versed, the physician spent 45 minutes of continuous face to face time with the patient. Ultrasound of the neck reveals a patent and compressible left internal jugular vein. A epic willow specialist radiograph reveals median sternotomy wires. The neck and anterior chest wall were anesthetized with lidocaine. The left internal jugular vein was accessed using a microintroducer needle under ultrasound guidance, via a lateral approach. An 018 wire was advanced into the superior vena cava, the needle was removed and a microsheath was placed. An Amplatz wire was then passed into the inferior vena cava. An incision at the internal jugular vein access site and anterior chest wall were made using a scalpel. An incision was made at the anterior chest wall. A small pocket was created using a combination of blunt and sharp dissection. A tunneling device was then used to pass the catheter from the pocket to the neck puncture site. An 8-[place] Angio dynamics Smart power port was then positioned in the pocket. The catheter was then measured and cut. The introducer sheath was exchanged for a peel-away sheath. The catheter was passed through the peel-away sheath into the internal jugular vein and the peel-away sheath was removed. The port tip was positioned at the cavoatrial junction. The port was then accessed with a Hickman needle. The port flushes and aspirates well. The puncture site in the neck was closed. The chest wall incision was then closed with 2-0 Vicryl and 4-0 Monocryl. Glue and Steri-Strips were applied. A sterile dressing was then applied. The patient tolerated the procedure well and was returned to the PRU in stable condition. Estimated blood loss: <5 ml. Complications: None. Conclusion: 1. Successful placement of an 8-[place] Angio dynamics Smart power port via the left internal jugular vein. The port is ready for immediate use. 2. Patient to follow up in IR clinic in 2 weeks. Thank you for this referral. Electronically Signed by Jossie Wong MD 07/27/2019 03:36 P
[2019-07-27 16:35] VITALS: BP 160/88
--- NOTE | 2019-07-27 17:00 | IRHP ---
[facility] IR Pre-Procedure H & P General Date of Service: July 27, 2019 Procedure: Same Day Surgery Interval History and Physical I have seen the patient and reviewed last H & P performed within 30 days. There is no significant interval change. History of Present Illness Chief Complaint The patient is a 39-year-old female admitted with a reason for visit of Breast Ca. PRE-PROCEDURE DIAGNOSIS: breast ca HEART: normal rate. LUNGS: normal breathing at rest. ASA Classification ASA Classification: II-Mild systemic disease Mallampati Score: II NPO: Yes Problems with prior sedation: No Obstructive Sleep Apnea: No Plan moderate sedation Allergies Coded Allergies: amitriptyline (Verified Allergy, Severe, SWELLING, 07/12/18) Grass (Verified Allergy, Mild, ITCHY EYES,NOSE, 12/17/17) TAPE (Verified Allergy, Mild, RASH/BLISTER, 07/22/19) TREES (Verified Allergy, Mild, ITCHY EYES,NOSE, 12/17/17) adhesive (Verified Allergy, Unknown, 07/22/19) divalproex sodium (Verified Allergy, Unknown, 07/22/19) minocycline (Verified Allergy, Unknown, 07/12/18) mold (Verified Allergy, Unknown, 07/12/18) tetracycline (Verified Allergy, Unknown, 07/22/19) bupropion (Verified Adverse Reaction, Intermediate, ESOPHAGEAL SPASMS, 07/22/19) banana (Verified Adverse Reaction, Mild, VOMITING, 07/22/19) benztropine (Verified Adverse Reaction, Mild, BLURRED VISION, 07/22/19) clindamycin (Verified Adverse Reaction, Mild, HEART BURN, 07/22/19) gabapentin (Verified Adverse Reaction, Mild, extreme weakness, 07/22/19) metaxalone (Verified Adverse Reaction, Mild, itching, 07/22/19) pregabalin (Verified Adverse Reaction, Mild, EDEMA, 07/22/19) sulfamethoxazole (Verified Adverse Reaction, Mild, DIARRHEA, 07/22/19) tizanidine (Verified Adverse Reaction, Mild, ITCHING, 07/22/19) trazodone (Verified Adverse Reaction, Mild, EDEMA, 07/22/19) trimethoprim (Verified Adverse Reaction, Mild, DIARRHEA, 07/22/19) vilazodone (Verified Adverse Reaction, Mild, MOOD CHANGES, 07/22/19) cyclobenzaprine (Verified Adverse Reaction, Unknown, IRRITABILITY, 07/12/18) valproic acid (Unverified Adverse Reaction, Unknown, DOES NOT METABOLIZE, 07/22/19) Home Medications Scheduled Acyclovir (Acyclovir), 400 MG PO BID, (Reported) Baclofen (Baclofen), 10 MG PO TID, (Reported) Cholecalciferol (Vitamin D3) (Vitamin D3), 5,000 UNITS PO DAILY, (Reported) Clozapine (Clozapine), 100 MG PO QHS, (Reported) Dexamethasone (Dexamethasone), 4 MG PO BID, (Reported) Docusate Sodium (Docusate Sodium), 100 MG PO QAM, (Reported) Folic Acid (Folic Acid), 1 MG PO DAILY, (Reported) Meloxicam (Meloxicam), 15 MG PO QHS, (Reported) Mirabegron (Myrbetriq), 50 MG PO DAILY, (Reported) Mirtazapine (Mirtazapine), 30 MG PO QHS, (Reported) Mycophenolate Mofetil (Cellcept), 1,000 MG PO TID, (Reported) Naltrexone HCl (Naltrexone HCl), 50 MG PO DAILY, (Reported) Omeprazole (Omeprazole), 20 MG PO DAILY, (Reported) Pyridostigmine [place] (Mestinon), 90 MG PO QID, (Reported) Ramelteon (Rozerem), 8 MG PO QHS, (Reported) Ropinirole HCl (Ropinirole HCl), 0.25 MG PO DAILY, (Reported) Ropinirole HCl (Ropinirole HCl), 2 MG PO QHS, (Reported) Sennosides (Senna), 2 TAB PO QHS, (Reported) Torsemide (Torsemide), 1 TAB PO DAILY, (Reported) Venlafaxine HCl (Venlafaxine HCl ER), 225 MG PO DAILY, (Reported) Zaleplon (Zaleplon), 10 MG PO QHS, (Reported) Scheduled PRN Ondansetron HCl (Ondansetron HCl), 8 MG PO Q6H PRN for NAUSEA OR VOMITING, (Reported) Prochlorperazine Maleate (Prochlorperazine Maleate), 10 MG PO Q8H PRN for NAUSEA OR VOMITING, (Reported) Discontinued Medications Cholecalciferol (Vitamin D3) (Vitamin D3), 1 TAB PO DAILY, (Reported) Discontinued Reason: Re-entering as new Dexamethasone (Dexamethasone), 4 MG PO ASDIRECTED Discontinued Reason: Pt states not taking Lorazepam (Ativan), 1 TAB PO QHS PRN for ANXIETY, (Reported) Discontinued Reason: Pt states not taking Mirtazapine (Remeron), 30 MG PO QHS Discontinued Reason: Pt states not taking Naltrexone HCl (Naltrexone HCl), 5 MG PO BID, (Reported) Discontinued Reason: Pt states not taking Ondansetron HCl (Ondansetron HCl), 8 MG PO Q6H PRN for NAUSEA OR VOMITING Discontinued Reason: Re-entering as new Polyvinyl Alcohol (Artificial Tears), 1 DROP OU QID PRN for DRY EYES, (Reported) Discontinued Reason: Pt states not taking Prochlorperazine Maleate (Prochlorperazine Maleate), 10 MG PO Q8HP PRN for NAUS EA OR VOMITING Discontinued Reason: Re-entering as new VS, I&O, 24H, Fishbone Vital Signs/I&O Vital Signs Date Time Temp Pulse Resp B/P (MAP) Pulse Ox O2 Delivery O2 Flow Rate FiO2 07/27/19 15:50 105 18 99 Room Air 07/27/19 14:25 2 07/27/19 12:20 99.1 ANJELICA MONTANA MD July 27, 2019 16:59
== END ==
LOC: M IRPRO 11:50
PROVIDERS: ATTEND Internal Medicine Medical Oncology
DX: C50.911 Malignant neoplasm of unspecified site of right female breast (principal); Z79.899 Other long term (current) drug therapy
CPT/HCPCS: 36561; 99152; 99153; C1769; C1788; C1894; J0690; J1200; J1642; J1644; J2250

== ENCOUNTER → 2019-08-03 | Outpatient (REF) | payer OTHER ==
[~2019-08-03] MED LIST changes: -ACETAMINOPHEN 325 MG TAB As Ordered ONE; -ACETAMINOPHEN TAB 650MG DOSE (2X325MG) PO ONE; -LIDOCAINE 1% MDV 20ML VIAL As Ordered ONE; -MIDAZOLAM INJ 2MG/2ML VIAL (J2250 PER 1MG) As Ordered ONE; -PROMETHAZINE INJ 25 MG/ML VIAL (J2550) As Ordered ONE; -ceFAZolin 2 GM/D5W 50 ML IV BAG (J0690 PER 500MG) As Ordered ONE; -diphenhydrAMINE 50MG/ML VIAL (J1200) As Ordered ONE
[2019-08-03 14:00] LABS: ALT/SGPT 50 U/L (12-78); BILIRUBIN,TOTAL 0.4 MG/DL (0.2-1.0); BLOOD UREA NITROGEN 16 MG/DL (7-18); CALCIUM LEVEL 9.8 MG/DL (8.5-10.1); CARBON DIOXIDE LEVEL 30 MEQ/L (21-32); CHLORIDE LEVEL 99 MEQ/L (98-107); CREATININE FOR GFR 1.01 MG/DL (0.55-1.30); GLOMERULAR FILTRATION RATE > 60.0 (>58); GLUCOSE, FASTING 109 MG/DL (70-100); SODIUM LEVEL 136 MEQ/L (136-145); TOTAL PROTEIN 7.7 GM/DL (6.4-8.2)
[2019-08-03 14:04] LABS: HEMATOCRIT 44.3 % (36.0-47.0); HEMOGLOBIN 14.2 g/dl (12.0-15.5); MEAN CORPUSCULAR HEMOGLOBIN 28.3 pg (27.0-33.0); MEAN CORPUSCULAR HGB CONC 32.1 g/dl (32.0-36.5); MEAN CORPUSCULAR VOLUME 88.4 fl (80.0-96.0); PLATELET COUNT, AUTOMATED 187 10^3/uL (150-450); RED BLOOD COUNT 5.01 10^6/uL (4.00-5.40); WHITE BLOOD COUNT 5.4 10^3/uL (4.0-10.0)
[2019-08-03 14:31] LABS: EOSINOPHILS 8 % (0-3); LYMPHOCYTES 25 % (16-44); MONOCYTES 3 % (0-5); NEUTROPHILS 63 % (28-66)
[2019-08-03 14:32] LABS: ANISOCYTOSIS 1+; PLATELET ESTIMATE NORMAL (NORMAL)
== END ==
LOC: M SFHCADAM 09:59
PROVIDERS: ATTEND Family Medicine
DX: Z01.818 Encounter for other preprocedural examination (principal)

== ENCOUNTER → 2019-08-09 | Outpatient (POV) | payer OTHER ==
--- NOTE | 2019-08-10 09:05 | IRPN ---
[facility] IR Progress Note IR Progress Note DATE: August 09, 2019 Consent was given by patient for this telephone call. Length of call was 5 minutes. FOLLOW-UP: Status post port placement. Patient states she is doing well. No pain, fevers or chills. Port used without issues. ON EXAMINATION: Patient sent picture of the port site. Site appears to be healing well. No erythema or discharge. No glue or steristrips remain. IMPRESSION: Doing well status post port placement . No further follow up scheduled unless initiated by patient and or referring provider. Thank you for this referral Allergies Coded Allergies: amitriptyline (Verified Allergy, Severe, SWELLING, 07/12/18) Grass (Verified Allergy, Mild, ITCHY EYES,NOSE, 12/17/17) TAPE (Verified Allergy, Mild, RASH/BLISTER, 07/22/19) TREES (Verified Allergy, Mild, ITCHY EYES,NOSE, 12/17/17) adhesive (Verified Allergy, Unknown, 07/22/19) divalproex sodium (Verified Allergy, Unknown, 07/22/19) minocycline (Verified Allergy, Unknown, 07/12/18) mold (Verified Allergy, Unknown, 07/12/18) tetracycline (Verified Allergy, Unknown, 07/22/19) bupropion (Verified Adverse Reaction, Intermediate, ESOPHAGEAL SPASMS, 07/22/19) banana (Verified Adverse Reaction, Mild, VOMITING, 07/22/19) benztropine (Verified Adverse Reaction, Mild, BLURRED VISION, 07/22/19) clindamycin (Verified Adverse Reaction, Mild, HEART BURN, 07/22/19) gabapentin (Verified Adverse Reaction, Mild, extreme weakness, 07/22/19) metaxalone (Verified Adverse Reaction, Mild, itching, 07/22/19) pregabalin (Verified Adverse Reaction, Mild, EDEMA, 07/22/19) sulfamethoxazole (Verified Adverse Reaction, Mild, DIARRHEA, 07/22/19) tizanidine (Verified Adverse Reaction, Mild, ITCHING, 07/22/19) trazodone (Verified Adverse Reaction, Mild, EDEMA, 07/22/19) trimethoprim (Verified Adverse Reaction, Mild, DIARRHEA, 07/22/19) vilazodone (Verified Adverse Reaction, Mild, MOOD CHANGES, 07/22/19) cyclobenzaprine (Verified Adverse Reaction, Unknown, IRRITABILITY, 07/12/18) valproic acid (Unverified Adverse Reaction, Unknown, DOES NOT METABOLIZE, 07/22/19) ANJELICA MONTANA MD August 10, 2019 09:05
== END ==
LOC: M TMIRPOV 09:15
PROVIDERS: ATTEND Radiology Diagnostic Radiology
DX: Z45.2 Encounter for adjustment and management of vascular access device (principal)

== ENCOUNTER → 2019-08-30 | Outpatient (CLI) | payer OTHER ==
--- NOTE | 2019-09-03 13:24 | RADONC ---
RADIATION ONCOLOGY CONSULTATION NOTE DATE OF CONSULTATION: 08/30/2019 This is a telemedicine visit. The patient was informed of the risks including security breech, technological failure, inability to perform a comprehensive physical exam which could delay or prevent an accurate diagnosis, and potential complications from treatment decisions rendered over a telemedicine platform. The patient understands and consented to the use of telehealth services. Phone only. CHART NUMBER: [id number]. DIAGNOSIS: Right breast cancer. STAGE: IB, T2, N0, M0, grade 3, ER positive, W[place] positive, HER2 negative, Oncotype score 69. ECOG PERFORMANCE STATUS: 0. CONSULTATION NOTE: Ms. Taylor is a very pleasant 39-year-old white female with the diagnosis what appears to be a stage IB, T2, N0, M0 all poorly differentiated infiltrating ductal carcinoma which is estrogen receptor positive, progesterone receptor positive, and HER2 negative with an initial Oncotype score of 69, who is presenting to in today status post lumpectomy and sentinel lymph node biopsy, followed by chemotherapy consisting of thus far three out of four cycles of TC. HISTORY OF PRESENT ILLNESS: The patient was in the usual state of health until February of 2019 when she first noticed a small lump of the medial lower aspect of the right breast. She subsequently underwent a mammogram on March 24, 2019, as well as an ultrasound which showed a suspicious mass in the lower inner quadrant. Ultrasound biopsy was performed on 04/06/2019 with pathology revealing a poorly differentiated infiltrating ductal carcinoma. The tumor was estrogen receptor positive, progesterone receptor positive, and HER2 negative. The patient was subsequently seen by Dr. Sierra Mckinney MD, and underwent a lumpectomy, as well as sentinel lymph node biopsy, on 05/17/2019. Pathology revealed a 3.5 cm x 2.5 cm x 1.8 cm poorly differentiated invasive ductal carcinoma. All margins of resection were negative. Lymph vascular invasion was not seen. A total of six sentinel lymph nodes were sampled, and all were negative for malignancy. Once again, the tumor was found to be estrogen receptor positive, progesterone receptor positive, and HER2 negative. Oncotype testing was sent with a resulting score of 69. The patient was subsequently seen by medical oncology and has been undergoing systemic therapy. She has thus far received her third cycle of TC chemotherapy and is scheduled for a fourth cycle on September 08. She is now presenting to in for consideration of postoperative radiation therapy for conservative breast management. PAST MEDICAL HISTORY: The patient's past medical history is positive for depression, ADD, fibromyalgia, mild hearing loss, mild mitral valve regurgitation, myasthenia gravis, obstructive sleep apnea with CPAP use, ovarian cyst, poor memory, and tension headaches. The patient has had a cholecystectomy, a C section, a laparoscopic hysterectomy, as well as the thymectomy and tubal ligation. ALLERGIES: The patient has multiple medical allergies, and I would refer you to her chart. They are listed in our electronic medical record. FAMILY HISTORY: The patient's family history is positive for a maternal grandmother with uterine cancer and lung cancer. She had a paternal grandmother with uterine cancer. She has a maternal grandfather with colon and rectal cancer. She has a paternal uncle with testicular cancer, and a maternal great aunt with breast cancer. SOCIAL HISTORY: The patient has smoked one pack of cigarettes per day for 17 years. She quit 8 years ago. She does not abuse alcohol. REVIEW OF SYSTEMS: The patient's review of systems at this time is positive for some bilateral lymphedema, as well as some fibromyalgia discomfort; but overall, she is feeling quite well. She denies nausea, vomiting, fevers, chills, night sweats, diplopia, headaches, anxiety or depression, anorexia, weight loss, visual disturbances, chest pain, urinary or bowel difficulties, bone pain, or neurological problems. PHYSICAL EXAMINATION: Physical examination was deferred as per COVID-19 precautions. This was a telephone consultation. ASSESSMENT: Clearly, the patient is a candidate for postoperative radiation therapy, and I so informed her. I have discussed with the patient in detail the potential benefits, as well as possible acute and chronic sequelae, of external beam radiation therapy. We discussed logistics of treatment planning, simulation, and subsequent fractionated daily radiation treatments. The patient is scheduled for her last chemo on September 08, and radiation usually begins 4 weeks following that. In light of this, I have put in an order to initiate treatment planning the week of October 02. Thank you for allowing us to participate in the care of this very pleasant woman. If I could be of any further assistance or provide you with any information, please feel free to contact me at any time. As always, warm regards. Vel Szymanski cc: Netta Kaur, DO Jamilah Bolaños, MD Apolonia Stahl MD Abdul Latif, MD Lisa Trickey, PA-C
== END ==
LOC: M ONCR 13:04
PROVIDERS: ATTEND Radiology Radiation Oncology
DX: C50.911 Malignant neoplasm of unspecified site of right female breast (principal)

== ENCOUNTER → 2019-09-27 | Outpatient (POV) | payer OTHER ==
[~2019-09-27] MED LIST changes: +ACET250T2 PO
--- NOTE | 2019-09-28 10:10 | IRPN ---
[facility] IR Progress Note IR Progress Note DATE: Sep 27, 2019 Patient agreed to this telephone consultation. Duration of call 5 minutes. FOLLOW-UP: 2 months status post port placement, patient was doing well but states after last access she noticed redness over the port and tracking to the neck. She states the port is tender to touch. No fevers or chills and she denies any discharge or busting open of the skin over the port. ON EXAMINATION: no video on patient side. IMPRESSION: Possible overlying cellulitis without systemic symptoms of infection. I have prescribed a short course of antibiotics and patient is to follow up in clinic in 1 week. Allergies Coded Allergies: amitriptyline (Verified Allergy, Severe, SWELLING, 07/12/18) Grass (Verified Allergy, Mild, ITCHY EYES,NOSE, 12/17/17) TAPE (Verified Allergy, Mild, RASH/BLISTER, 07/22/19) TREES (Verified Allergy, Mild, ITCHY EYES,NOSE, 12/17/17) adhesive (Verified Allergy, Unknown, 07/22/19) divalproex sodium (Verified Allergy, Unknown, 07/22/19) minocycline (Verified Allergy, Unknown, 07/12/18) mold (Verified Allergy, Unknown, 07/12/18) tetracycline (Verified Allergy, Unknown, 07/22/19) bupropion (Verified Adverse Reaction, Intermediate, ESOPHAGEAL SPASMS, 07/22/19) banana (Verified Adverse Reaction, Mild, VOMITING, 07/22/19) benztropine (Verified Adverse Reaction, Mild, BLURRED VISION, 07/22/19) clindamycin (Verified Adverse Reaction, Mild, HEART BURN, 07/22/19) gabapentin (Verified Adverse Reaction, Mild, extreme weakness, 07/22/19) metaxalone (Verified Adverse Reaction, Mild, itching, 07/22/19) pregabalin (Verified Adverse Reaction, Mild, EDEMA, 07/22/19) sulfamethoxazole (Verified Adverse Reaction, Mild, DIARRHEA, 07/22/19) tizanidine (Verified Adverse Reaction, Mild, ITCHING, 07/22/19) trazodone (Verified Adverse Reaction, Mild, EDEMA, 07/22/19) trimethoprim (Verified Adverse Reaction, Mild, DIARRHEA, 07/22/19) vilazodone (Verified Adverse Reaction, Mild, MOOD CHANGES, 07/22/19) cyclobenzaprine (Verified Adverse Reaction, Unknown, IRRITABILITY, 07/12/18) valproic acid (Unverified Adverse Reaction, Unknown, DOES NOT METABOLIZE, 07/22/19) ANJELICA MONTANA MD Sep 28, 2019 10:10
== END ==
LOC: M TMIRPOV 10:14
PROVIDERS: ATTEND Radiology Diagnostic Radiology
DX: Z45.2 Encounter for adjustment and management of vascular access device (principal)

== ENCOUNTER 2019-10-05 12:50 | Outpatient (RCR) | payer OTHER ==
[2019-12-21] MEDS ORDERED: TAMO20TA8 PO (14:39)
[2019-12-21] MEDS ORDERED: POTA1TAB14 PO (15:57)
[2020-01-10] MEDS ORDERED: REME30TA PO (21:32)
== END 2019-10-21 ==
LOC: M ONCR 12:50
PROVIDERS: ATTEND Radiology Radiation Oncology
DX: C50.311 Malignant neoplasm of lower-inner quadrant of right female breast (principal)

== ENCOUNTER 2019-11-29 16:25 | Inpatient (IN) | payer MEDICAID, OTHER ==
[~2019-11-29] VITALS: Ht 165.1 cm; Wt 106.5 kg
[2019-11-29] MEDS ORDERED: PROZ20CA11 PO (16:54)
[2019-11-29 17:44] LABS: HEMATOCRIT 39.4 % (36.0-47.0); HEMOGLOBIN 12.8 g/dl (12.0-15.5); MEAN CORPUSCULAR HEMOGLOBIN 28.6 pg (27.0-33.0); MEAN CORPUSCULAR HGB CONC 32.5 g/dl (32.0-36.5); MEAN CORPUSCULAR VOLUME 88.1 fl (80.0-96.0); PLATELET COUNT, AUTOMATED 239 10^3/uL (150-450); RED BLOOD COUNT 4.47 10^6/uL (4.00-5.40); WHITE BLOOD COUNT 4.9 10^3/uL (4.0-10.0)
[2019-11-29 17:59] LABS: AMPHETAMINES LEVEL URINE NEGATIVE (NEGATIVE); BARBITURATES URINE NEGATIVE (NEGATIVE); BENZODIAZEPINES URINE NEGATIVE (NEGATIVE); CANNABINOIDS URINE POSITIVE (NEGATIVE); COCAINE METABOLITE URINE NEGATIVE (NEGATIVE); METHADONE URINE NEGATIVE (NEGATIVE); OPIATES URINE NEGATIVE (NEGATIVE); PHENCYCLIDINE URINE NEGATIVE (NEGATIVE)
[2019-11-29 18:29] LABS: ACETAMINOPHEN LEVEL < 2.0 UG/ML (10.0-30.0); ALBUMIN 4.1 GM/DL (3.2-5.2); ALT/SGPT 27 U/L (12-78); BILIRUBIN,DIRECT < 0.1 MG/DL (0.0-0.2); BILIRUBIN,TOTAL 0.3 MG/DL (0.2-1.0); BLOOD UREA NITROGEN 11 MG/DL (7-18); CALCIUM LEVEL 9.1 MG/DL (8.5-10.1); CARBON DIOXIDE LEVEL 24 MEQ/L (21-32); CHLORIDE LEVEL 112 MEQ/L (98-107); CREATININE FOR GFR 1.14 MG/DL (0.55-1.30); ETHYL ALCOHOL (ETHANOL) < 0.003 % (0.000-0.010); GLOMERULAR FILTRATION RATE 56.2 (>58); GLUCOSE, FASTING 95 MG/DL (70-100); POTASSIUM SERUM 3.3 MEQ/L (3.5-5.1); SALICYLATE LEVEL < 1.7 MG/DL (5.0-30.0); SODIUM LEVEL 142 MEQ/L (136-145); TOTAL PROTEIN 7.4 GM/DL (6.4-8.2)
[2019-11-29] MEDS ORDERED: POTASSIUM CHLORIDE 10 MEQ SR TABLET PO ONE (19:00)
[2019-11-29] MEDS ORDERED: MYCOPHENOLATE MOFETIL 250 MG CAP (J7517) PO ONE (20:30)
[2019-11-29] MEDS ORDERED: ACYCLOVIR 200 MG CAPSULE PO ONE (20:30)
[2019-11-29] MEDS ORDERED: RAMELTEON 8 MG TAB (ROZEREM) PO ONE (20:30)
[2019-11-29] MEDS ORDERED: BACLOFEN 10 MG TAB PO ONE (20:30)
[2019-11-29] MEDS ORDERED: acetaZOLAMIDE 250 MG TAB PO ONE (20:30)
[2019-11-29] MEDS ORDERED: PYRIDOSTIGMINE 60 MG TAB PO ONE (20:30)
[2019-11-29] MEDS ORDERED: MIRTAZAPINE 15 MG TAB PO ONE (20:30)
[2019-11-29] MEDS ORDERED: cloZAPine 100 MG TAB (S0136) PO ONE (20:30)
[2019-11-29] MEDS ORDERED: SENN8.6T28 PO (22:49)
[2019-11-29] MEDS ORDERED: OMEG100011 PO (22:49)
[2019-11-29] MEDS ORDERED: FLUO20CA22 PO (22:49)
[2019-11-29] MEDS ORDERED: TORS20TA2 PO (22:49)
[2019-11-29] MEDS ORDERED: REME30TA PO (22:49)
[2019-11-30] MEDS ORDERED: acetaZOLAMIDE 250 MG TAB PO SCH ×2 (09:00)
[2019-11-30] MEDS ORDERED: OMEGA-3 1000MG CAPSULE PO SCH (09:00)
[2019-11-30] MEDS ORDERED: OMEPRAZOLE 20 MG CAP PO SCH (09:00)
[2019-11-30] MEDS ORDERED: DOCUSATE SODIUM 100 MG CAP PO SCH (09:00)
[2019-11-30] MEDS ORDERED: FLUoxetine 20 MG CAP PO SCH (09:00)
[2019-11-30] MEDS ORDERED: VENLAFAXINE 37.5 MG TAB PO SCH (09:00)
[2019-11-30] MEDS ORDERED: FOLIC ACID 1 MG TAB PO SCH (09:00)
[2019-11-30] MEDS ORDERED: MYCOPHENOLATE MOFETIL 250 MG CAP (J7517) PO SCH (09:00)
[2019-11-30] MEDS ORDERED: TORSEMIDE 20 MG TAB PO SCH (09:00)
[2019-11-30] MEDS ORDERED: NALTREXONE 50 MG TAB PO SCH (09:00)
[2019-11-30] MEDS ORDERED: VENLAFAXINE **XR** 75MG CAPSULE PO SCH (09:00)
[2019-11-30] MEDS: VITAMIN D 1,000 INTERNATIONAL UNITS TABLET PO SCH (09:04)
[2019-11-30] MEDS: ACYCLOVIR 200 MG CAPSULE PO SCH ×2 (09:06→21:00)
[2019-11-30] MEDS: PYRIDOSTIGMINE 60 MG TAB PO SCH ×4 (09:29→20:23)
[2019-11-30] MEDS ORDERED: MAALOX 30 ML SUSP *UDC PO PRN (16:30)
[2019-11-30] MEDS ORDERED: MOM 30ML SUSPENSION UDC PO PRN (16:30)
[2019-11-30] MEDS ORDERED: SENNA 8.6 MG TAB (SENOKOT) PO PRN (16:30)
[2019-11-30 17:07] VITALS: BP 143/85
[2019-11-30] MEDS: cloZAPine 100 MG TAB (S0136) PO SCH (20:19)
[2019-11-30] MEDS: zolPIDEM TARTRATE 5 MG TAB PO PRN (20:19)
[2019-11-30] MEDS: MIRTAZAPINE 15 MG TAB PO SCH (20:19)
[2019-11-30] MEDS: MYCOPHENOLATE MOFETIL 250 MG CAP (J7517) PO SCH (20:20)
[2019-11-30] MEDS: acetaZOLAMIDE 250 MG TAB PO SCH (20:20)
[2019-11-30] MEDS ORDERED: MIRTAZAPINE 15 MG TAB PO SCH (21:00)
[2019-11-30] MEDS ORDERED: cloZAPine 100 MG TAB (S0136) PO SCH (21:00)
[2019-12-01 06:43] VITALS: BP 131/86
[2019-12-01] MEDS ORDERED: OLANZapine ORAL DISINTEGRATING TAB 5MG PO ONE (07:45)
[2019-12-01] MEDS: ACYCLOVIR 200 MG CAPSULE PO SCH ×2 (09:00→21:00)
[2019-12-01] MEDS: TORSEMIDE 20 MG TAB PO SCH (09:45)
[2019-12-01] MEDS: NALTREXONE 50 MG TAB PO SCH (09:46)
[2019-12-01] MEDS: acetaZOLAMIDE 250 MG TAB PO SCH ×2 (09:46→21:31)
[2019-12-01] MEDS: VENLAFAXINE **XR** 75MG CAPSULE PO SCH (09:46)
[2019-12-01] MEDS: VITAMIN D 1,000 INTERNATIONAL UNITS TABLET PO SCH (09:46)
[2019-12-01] MEDS: DOCUSATE SODIUM 100 MG CAP PO SCH (09:46)
[2019-12-01] MEDS: FLUoxetine 20 MG CAP PO SCH (09:46)
[2019-12-01] MEDS: OMEGA-3 1000MG CAPSULE PO SCH (09:46)
[2019-12-01] MEDS: PYRIDOSTIGMINE 60 MG TAB PO SCH ×4 (09:47→21:32)
[2019-12-01] MEDS: FOLIC ACID 1 MG TAB PO SCH (09:47)
[2019-12-01] MEDS: MYCOPHENOLATE MOFETIL 250 MG CAP (J7517) PO SCH ×3 (09:47→21:30)
[2019-12-01] MEDS: OMEPRAZOLE 20 MG CAP PO SCH (09:47)
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
[2019-12-01] MEDS: BACLOFEN 10 MG TAB PO PRN (16:08)
[2019-12-01 16:20] VITALS: BP 135/87
--- NOTE | 2019-12-01 20:36 | HPEPDOC ---
General Date of Admission Nov 30, 2019 at 16:26 Date of Service: Dec 01, 2019 Chief Complaint The patient is a 39-year-old female admitted with a reason for visit of Unspecified Depression. Source: Patient Exam Limitations: No limitations Severity: Moderate History of Present Illness Patient is 39 years old female with past medical history of depression, anxiety, breast cancer, myasthenia gravis presented hospital with suicidal ideation. She was evaluated in the emergency department and admitted on a 9.39 legal status. She reports many situational stressors including finishing her last chemo treatment for Breast Cancer on Thursday of this week. Patient denied fever, chills, nausea,, diarrhea or dysuria Home Medications Scheduled Acetazolamide (Acetazolamide) 250 Mg Tablet, 500 MG PO BID, (Reported) Acyclovir (Acyclovir) 400 Mg Tab, 400 MG PO BID, (Reported) Cholecalciferol (Vitamin D3) (Vitamin D3) 125 Mcg (5000 Unit) Tab.rapdis, 5,000 UNITS PO DAILY, (Reported) Clozapine (Clozapine) 100 Mg Tablet, 100 MG PO QHS, (Reported) Docusate Sodium (Docusate Sodium) 100 Mg Capsule, 100 MG PO DAILY, (Reported) Fluoxetine Hcl (Fluoxetine HCl) 20 Mg Capsule, 20 MG PO DAILY, (Reported) Folic Acid (Folic Acid) 1 Mg Tab, 1 MG PO DAILY, (Reported) Mirtazapine (Remeron) 30 Mg Tablet, 30 MG PO QHS, (Reported) Mycophenolate Mofetil (Cellcept) 500 Mg Tab, 1,000 MG PO TID, (Reported) Naltrexone HCl (Naltrexone HCl) 50 Mg Tablet, 50 MG PO DAILY, (Reported) Cartwright-3 Fatty Acids/Fish Oil (Cartwright 3 1,000 mg Softgel) 1 Each Capsule, 1 CAP PO DAILY, (Reported) Omeprazole (Omeprazole) 20 Mg Capsule.dr, 20 MG PO DAILY, (Reported) Pyridostigmine Louise (Mestinon) 60 Mg Tab, 90 MG PO QID, (Reported) Torsemide (Torsemide) 20 Mg Tablet, 20 MG PO DAILY, (Reported) Venlafaxine HCl (Venlafaxine HCl ER) 75 Mg Cap.er.24h, 225 MG PO DAILY, (Reported) Zaleplon (Zaleplon) 10 Mg Capsule, 10 MG PO Q2D, (Reported) EVERY OTHER NIGHT Scheduled PRN Baclofen (Baclofen) 10 Mg Tablet, 10 MG PO TID PRN for MUSCLE SPASMS, (Reported) Sennosides (Senna) 8.6 Mg Tablet, 2 TAB PO QHS PRN for CONSTIPATION, (Reported) Allergies Coded Allergies: amitriptyline (Verified Allergy, Severe, SWELLING, 11/29/19) Grass (Verified Allergy, Mild, ITCHY EYES,NOSE, 11/29/19) TAPE (Verified Allergy, Mild, RASH/BLISTER, 11/29/19) TREES (Verified Allergy, Mild, ITCHY EYES,NOSE, 11/29/19) adhesive (Verified Allergy, Unknown, 11/29/19) divalproex sodium (Verified Allergy, Unknown, 11/29/19) minocycline (Verified Allergy, Unknown, 11/29/19) mold (Verified Allergy, Unknown, 11/29/19) tetracycline (Verified Allergy, Unknown, 11/29/19) bupropion (Verified Adverse Reaction, Intermediate, ESOPHAGEAL SPASMS, 11/29/19) banana (Verified Adverse Reaction, Mild, VOMITING, 11/29/19) benztropine (Verified Adverse Reaction, Mild, BLURRED VISION, 11/29/19) clindamycin (Verified Adverse Reaction, Mild, HEART BURN, 11/29/19) gabapentin (Verified Adverse Reaction, Mild, extreme weakness, 11/29/19) metaxalone (Verified Adverse Reaction, Mild, itching, 11/29/19) pregabalin (Verified Adverse Reaction, Mild, EDEMA, 11/29/19) sulfamethoxazole (Verified Adverse Reaction, Mild, DIARRHEA, 11/29/19) tizanidine (Verified Adverse Reaction, Mild, ITCHING, 11/29/19) trazodone (Verified Adverse Reaction, Mild, EDEMA, 11/29/19) trimethoprim (Verified Adverse Reaction, Mild, DIARRHEA, 11/29/19) vilazodone (Verified Adverse Reaction, Mild, MOOD CHANGES, 11/29/19) cyclobenzaprine (Verified Adverse Reaction, Unknown, IRRITABILITY, 11/29/19) valproic acid (Unverified Adverse Reaction, Unknown, DOES NOT METABOLIZE, 11/29/19) Past Medical History Medical History Myasthenia gravis, breast cancer, depression, anxiety, fibromyalgia Surgical History Right breast lumpectomy due to breast cancer diagnosed in 2019 Family History Father has diabetes Social History * Smoker: Denies, current smoker Alcohol: Denies Drugs: marijuana A-FIB/CHADSVASC A-FIB History Current/History of A-Fib/PAF?: No Current PO Anticoag Therapy: No Review of Systems Constitutional: Denies: Chills, Fever Eyes: Denies: Pain ENT: Denies: Head Aches Skin: Denies: Rash, Lesions Pulmonary: Denies: Dyspnea Cardiovascular: Denies: Chest Pain Gastrointestinal: Denies: Nausea, Vomiting Genitourinary: Denies: Dysuria, Frequency Hematologic: Denies: Bruising Endocrine: Denies: Polydipsia, Polyphagia Musculoskeletal: Denies: Neck Pain Neurological: Denies: Weakness Psych: Reports: Anxiety, Depression Physical Examination General Exam: Positive: Alert, Cooperative Eye Exam: Positive: PERRLA ENT Exam: Positive: Atraumatic Neck Exam: Positive: Supple; Negative: JVD Chest Exam: Positive: Clear to auscultation Heart Exam: Positive: Rate Normal Telemetry: Positive: No significant arrhythmia Abdomen Exam: Positive: Normal bowel sounds Extremity Exam: Negative: Clubbing, Cyanosis Skin Exam: Positive: Nl turgor and temperature Neuro Exam: Positive: Normal Gait, Strength at 5/5 X4 ext, Cranial Nerves 3-12 NL Psych Exam: Positive: Anxiety Vital Signs Vital Signs Date Time Temp Pulse Resp B/P (MAP) Pulse Ox O2 Delivery O2 Flow Rate FiO2 12/01/19 16:20 98.7 89 14 135/87 (103) 12/01/19 06:43 97 Room Air Assessment/Plan Patient is 39 years old female with past medical history of depression, anxiety, breast cancer, myasthenia gravis presented hospital with suicidal ideation. She was evaluated in the emergency department and admitted on a 9.39 legal status. She reports many situational stressors including finishing her last chemo treatment for Breast Cancer on Thursday of this week. Patient denied fever, chills, nausea,, diarrhea or dysuria Problems (1) Myasthenia gravis Status: Chronic Problem Text: Continue home meds Not in acute exacerbation (2) Major depression Status: Acute Problem Text: Defer to psych team (3) Breast cancer, right Status: Chronic Problem Text: Follow-up with oncologist in the outpatient settings Plan / VTE VTE Prophylaxis Ordered?: No VTE Exclusion Mechanical Proph: Low Risk for VTE JOSE D PREALTA DO Dec 01, 2019 20:36
[2019-12-01] MEDS: zolPIDEM TARTRATE 5 MG TAB PO PRN (21:29)
[2019-12-01] MEDS: cloZAPine 100 MG TAB (S0136) PO SCH (21:30)
[2019-12-01] MEDS: MIRTAZAPINE 15 MG TAB PO SCH (21:31)
[2019-12-02 06:59] VITALS: BP 130/82
[2019-12-02] MEDS: FOLIC ACID 1 MG TAB PO SCH (08:17)
[2019-12-02] MEDS: FLUoxetine 20 MG CAP PO SCH (08:17)
[2019-12-02] MEDS: VENLAFAXINE **XR** 75MG CAPSULE PO SCH (08:17)
[2019-12-02] MEDS: OMEPRAZOLE 20 MG CAP PO SCH (08:17)
[2019-12-02] MEDS: VITAMIN D 1,000 INTERNATIONAL UNITS TABLET PO SCH (08:17)
[2019-12-02] MEDS: TORSEMIDE 20 MG TAB PO SCH (08:18)
[2019-12-02] MEDS: NALTREXONE 50 MG TAB PO SCH (08:18)
[2019-12-02] MEDS: DOCUSATE SODIUM 100 MG CAP PO SCH (08:18)
[2019-12-02] MEDS: OMEGA-3 1000MG CAPSULE PO SCH (08:18)
[2019-12-02] MEDS: MYCOPHENOLATE MOFETIL 250 MG CAP (J7517) PO SCH ×3 (08:19→21:40)
[2019-12-02] MEDS: acetaZOLAMIDE 250 MG TAB PO SCH ×2 (08:19→21:39)
[2019-12-02] MEDS: PYRIDOSTIGMINE 60 MG TAB PO SCH ×4 (08:19→21:38)
[2019-12-02] MEDS ORDERED: INFLUENZA QUADRIVALENT PF VACCINE 0.5ML SYRINGE IM ONE (09:00)
[2019-12-02] MEDS: hydrOXYzine 50 MG TAB PO PRN ×2 (09:22→15:40)
[2019-12-02] MEDS: ACYCLOVIR 200 MG CAPSULE PO SCH ×2 (11:26→21:39)
--- NOTE | 2019-12-02 12:16 | MHIPNPDOC ---
[facility] Progress Note Progress Note DATE OF SERVICE: 12/02/19 HISTORY: Patient is a 39 -year-old , Disabled, Comiciled , Female, who reports many situational stressors and long history of psychiatric illnesses. Patient reports increase in Depressive Symptoms due to situational stressors: 1) Patient has numerous medication conditions including diagnosis of Breast Cancer and finishing up last chemo treatment on Thursday11/29/19. Also has Fibromyalgia, Myasthenia Gravis. Patient's has Muscular Dystrophy recently fell and broke his knee. He wa in the hospital for several weeks and she helped him rehabilitate at home. But she reports feelings of being overwhelmed with housekeeping, cooking and taking care of the household. States that her anxiety and depression is debilitating because she wants to clean the house because when it is messy she gets anxious but the depression stops her from being motivated to do it. VITAL SIGNS: See below. NEW TEST RESULTS: CURRENT MEDICATIONS: See below. MENTAL STATUS EXAMINATION: Patient is a 39 year old , disabled, domiciled Female who reports depression and plan to overdose on medications. She reports numerous situational stressors, including depression and anxiety. She appears her stated age. Calm and cooperative in the interview. She is dressed in hospital scrubs and her hygiene and grooming is good. Her hair is very short due to recent chemo treatment. She makes intermittent eye contact. She does not have psychomotor retardation or agitation Speech: Is fluid, spontaneous, initially very impoverished but she became more conversant at the end of the interview. Language skills are good Thought processes including: linear and goal oriented Thought content: depression, anxiety, Abstract reasoning, and computation: fair Description of associations: none noted/patient denies Description of abnormal or psychotic thoughts: none noted/patient denies Judgment: fair Insight: fair Orientation: alert and oriented Recent and remote memory: intact Attention span and concentration: good Language: good Fund of knowledge: average Mood: depressed. Affect: constricted DIAGNOSES: 1. Major Depressive Disorder, Recurrent, Moderate 2. Anxiety Disorder ASSESSMENT: Cut self with jarrett from a book this AM, reports feeling trapped, anxious, depressed, feeling hopeless, agitated. Having a room mate is difficult for her. Having a difficulty tolerating sharing room with another person, states the peer wants to have conversations but patient is aware of her own limitations and has difficulty having conversation with others. She reports that at one point she and her were much happier in another place years ago, currently they live in an apartment owned by her Aunt and Uncle and she is often very scared of being judged by her family for the way the house is. Reports that it is difficult to leave this apartment because of her having a previous felony charge (sexual offender) and inability to live in areas that might accommodate his disability. Rating depression 7/10, anxiety 4/10, agitation 2/10, report suicidal ideation and thoughts of planning but no intent. States that her son is her reason for living, doesn't want to leave him with unresolved feelings because of her suicidality. (patient lost her brother due to overdose and her stepfather by hanging) Patient medicated for anxiety and self-harm thoughts, reports Hydroxyzine was effective. Patient is willing to work on listing behaviors and feelings for mild agitation, moderate agitation and severe agitation. Encouraging patient to identify her behaviors at below moderate agitation/anxiety in order to seek talk therapy or medications, MANAGEMENT PLAN: Patient is not stable for discharge, she continues to report depression, anxiety and suicidal ideation, she also has cut herself while hospitalized. Continue all medications as ordered, she will be discharged when she is stable and has met criteria for discharge by the treatment team TIME SPENT: 35 minutes. Vital Signs Vital Signs Date Time Temp Pulse Resp B/P (MAP) Pulse Ox O2 Delivery O2 Flow Rate FiO2 12/02/19 06:59 98.2 80 14 130/82 (98) Room Air 12/01/19 06:43 97 Current Medications Current Medications Medications (Trade) Dose Ordered Sig/Ben Route PRN Reason Start Time Stop Time Status Last Admin Dose Admin Acetaminophen (Tylenol Tab) 650 mg Q6HP PRN PO HEADACHE or DISCOMFORT 11/30/19 16:30 Acetazolamide (Diamox) 500 mg BID PO 11/30/19 09:00 11/30/19 09:03 DC Acetazolamide (Diamox) 500 mg BID PO 11/30/19 21:00 12/02/19 08:19 Acetazolamide (Diamox) 500 mg BID@0900,1700 PO 11/30/19 09:00 11/30/19 16:48 DC 11/30/19 09:31 Acyclovir (Zovirax) 400 mg BID PO 11/30/19 09:00 12/02/19 11:26 Al Hydrox/Mg Hydrox/Simethicone (Mylanta) 30 ml Q4HP PRN PO HEARTBURN/INDIGESTION 11/30/19 16:30 Baclofen (Lioresal) 10 mg TID PRN PO MUSCLE SPASMS 11/30/19 16:30 12/01/19 16:08 Clozapine (Clozaril) 100 mg QHS PO 11/30/19 21:00 11/30/19 16:50 DC Clozapine (Clozaril) 100 mg QHS PO 11/30/19 21:00 12/01/19 21:30 Docusate Sodium (Colace) 100 mg DAILY PO 12/01/19 09:00 12/02/19 08:18 Docusate Sodium (Colace) 100 mg DAILY PO 11/30/19 09:00 11/30/19 16:48 DC 11/30/19 09:07 Fish Oil ([place]-3 (1000mg)) 1 cap DAILY PO 12/01/19 09:00 12/02/19 08:18 Fish Oil ([place]-3 (1000mg)) 1 cap DAILY PO 11/30/19 09:00 11/30/19 16:55 DC 11/30/19 09:31 Fluoxetine HCl (PROzac) 20 mg DAILY PO 12/01/19 09:00 12/02/19 08:17 Fluoxetine HCl (PROzac) 20 mg DAILY PO 11/30/19 09:00 11/30/19 16:49 DC 11/30/19 09:06 Folic Acid (Folic Acid) 1 mg DAILY PO 12/01/19 09:00 12/02/19 08:17 Folic Acid (Folic Acid) 1 mg DAILY PO 11/30/19 09:00 11/30/19 16:51 DC 11/30/19 09:08 Home Med (Med Rec Complete!) ASDIRECTED XX 11/29/19 23:00 11/29/19 22:51 DC Hydroxyzine HCl (Atarax) 50 mg Q6HP PRN PO anxiety 12/02/19 09:00 12/02/19 09:22 Magnesium Hydroxide (Milk Of Magnesia) 30 ml DAILYPRN PRN PO CONSTIPATION 11/30/19 16:30 Mirtazapine (Remeron) 30 mg QHS PO 11/30/19 21:00 11/30/19 16:52 DC Mirtazapine (Remeron) 30 mg QHS PO 11/30/19 21:00 12/01/19 21:31 Mycophenolate Mofetil (Cellcept) 1,000 mg TID PO 11/30/19 09:00 11/30/19 17:18 DC 11/30/19 09:33 Mycophenolate Mofetil (Cellcept) 1,000 mg TID PO 11/30/19 21:00 12/02/19 08:19 Naltrexone HCl (Revia) 50 mg DAILY PO 12/01/19 09:00 12/02/19 08:18 Naltrexone HCl (Revia) 50 mg DAILY PO 11/30/19 09:00 11/30/19 17:20 DC 11/30/19 09:31 Omeprazole (PriLOSEC) 20 mg DAILY PO 12/01/19 09:00 12/02/19 08:17 Omeprazole (PriLOSEC) 20 mg DAILY PO 11/30/19 09:00 11/30/19 16:54 DC 11/30/19 09:07 Pyridostigmine [place] (Mestinon) 90 mg QID PO 11/30/19 09:00 11/30/19 17:21 DC 11/30/19 14:38 Pyridostigmine [place] (Mestinon) 90 mg QID PO 11/30/19 17:00 12/02/19 08:19 Senna (Senokot) 2 tab QHS PRN PO CONSTIPATION 11/30/19 16:30 Torsemide (Demadex) 20 mg DAILY PO 12/01/19 09:00 12/02/19 08:18 Torsemide (Demadex) 20 mg DAILY PO 11/30/19 09:00 11/30/19 16:53 DC 11/30/19 09:08 Venlafaxine HCl (Effexor Xr) 225 mg DAILY PO 12/01/19 09:00 12/02/19 08:17 Venlafaxine HCl (Effexor Xr) 225 mg DAILY PO 11/30/19 09:00 11/30/19 16:53 DC 11/30/19 09:08 Venlafaxine HCl (Effexor) 225 mg DAILY PO 11/30/19 09:00 11/30/19 07:50 DC Vitamin D (Vitamin D) 5,000 units DAILY PO 11/30/19 09:00 12/02/19 08:17 Zolpidem Tartrate (Ambien) 10 mg QHSP PRN PO INSOMNIA 11/30/19 16:30 12/01/19 21:29 Allergies Coded Allergies: amitriptyline (Verified Allergy, Severe, SWELLING, 11/29/19) Grass (Verified Allergy, Mild, ITCHY EYES,NOSE, 11/29/19) TAPE (Verified Allergy, Mild, RASH/BLISTER, 11/29/19) TREES (Verified Allergy, Mild, ITCHY EYES,NOSE, 11/29/19) adhesive (Verified Allergy, Unknown, 11/29/19) divalproex sodium (Verified Allergy, Unknown, 11/29/19) minocycline (Verified Allergy, Unknown, 11/29/19) mold (Verified Allergy, Unknown, 11/29/19) tetracycline (Verified Allergy, Unknown, 11/29/19) bupropion (Verified Adverse Reaction, Intermediate, ESOPHAGEAL SPASMS, 11/29/19) banana (Verified Adverse Reaction, Mild, VOMITING, 11/29/19) benztropine (Verified Adverse Reaction, Mild, BLURRED VISION, 11/29/19) clindamycin (Verified Adverse Reaction, Mild, HEART BURN, 11/29/19) gabapentin (Verified Adverse Reaction, Mild, extreme weakness, 11/29/19) metaxalone (Verified Adverse Reaction, Mild, itching, 11/29/19) pregabalin (Verified Adverse Reaction, Mild, EDEMA, 11/29/19) sulfamethoxazole (Verified Adverse Reaction, Mild, DIARRHEA, 11/29/19) tizanidine (Verified Adverse Reaction, Mild, ITCHING, 11/29/19) trazodone (Verified Adverse Reaction, Mild, EDEMA, 11/29/19) trimethoprim (Verified Adverse Reaction, Mild, DIARRHEA, 11/29/19) vilazodone (Verified Adverse Reaction, Mild, MOOD CHANGES, 11/29/19) cyclobenzaprine (Verified Adverse Reaction, Unknown, IRRITABILITY, 11/29/19) valproic acid (Unverified Adverse Reaction, Unknown, DOES NOT METABOLIZE, 11/29/19) GEORGE DAWN NP Dec 02, 2019 12:16
[2019-12-02] MEDS: ACETAMINOPHEN TAB 650MG DOSE (2X325MG) PO PRN (13:56)
[2019-12-02] MEDS: BACLOFEN 10 MG TAB PO PRN ×2 (13:56→21:42)
[2019-12-02 18:11] VITALS: BP 148/73
[2019-12-02] MEDS: MIRTAZAPINE 15 MG TAB PO SCH (21:40)
[2019-12-02] MEDS: cloZAPine 100 MG TAB (S0136) PO SCH (21:40)
[2019-12-03 07:01] VITALS: BP 151/95
[2019-12-03] MEDS: ACYCLOVIR 200 MG CAPSULE PO SCH ×2 (09:31→20:54)
[2019-12-03] MEDS: VITAMIN D 1,000 INTERNATIONAL UNITS TABLET PO SCH (09:31)
[2019-12-03] MEDS: DOCUSATE SODIUM 100 MG CAP PO SCH (09:31)
[2019-12-03] MEDS: MYCOPHENOLATE MOFETIL 250 MG CAP (J7517) PO SCH ×3 (09:32→20:53)
[2019-12-03] MEDS: ACETAMINOPHEN TAB 650MG DOSE (2X325MG) PO PRN ×2 (09:33→15:37)
[2019-12-03] MEDS: PYRIDOSTIGMINE 60 MG TAB PO SCH ×4 (09:33→20:58)
[2019-12-03] MEDS: OMEGA-3 1000MG CAPSULE PO SCH (09:33)
[2019-12-03] MEDS: FOLIC ACID 1 MG TAB PO SCH (09:33)
[2019-12-03] MEDS: VENLAFAXINE **XR** 75MG CAPSULE PO SCH (09:33)
[2019-12-03] MEDS: acetaZOLAMIDE 250 MG TAB PO SCH ×2 (09:34→20:55)
[2019-12-03] MEDS: OMEPRAZOLE 20 MG CAP PO SCH (09:34)
[2019-12-03] MEDS: FLUoxetine 20 MG CAP PO SCH (09:34)
[2019-12-03] MEDS: TORSEMIDE 20 MG TAB PO SCH (09:34)
[2019-12-03] MEDS: NALTREXONE 50 MG TAB PO SCH (09:34)
[2019-12-03] MEDS: LIDOCAINE 5% (LIDODERM) PATCH TD SCH (13:22)
--- NOTE | 2019-12-03 14:53 | ECGEPIP ---
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
[2019-12-03] MEDS: BACLOFEN 10 MG TAB PO PRN ×2 (15:37→21:43)
[2019-12-03] MEDS: hydrOXYzine 50 MG TAB PO PRN (17:03)
[2019-12-03 18:00] VITALS: BP 132/88
--- NOTE | 2019-12-03 18:32 | MHIPNPDOC ---
[facility] Progress Note Progress Note DATE OF SERVICE: 12/03/19 HISTORY: Patient is a 39 -year-old , Disabled, Comiciled , Female, who reports many situational stressors and long history of psychiatric illnesses. As per previous notes: "Patient reports increase in Depressive Symptoms due to situational stressors: 1) Patient has numerous medication conditions including diagnosis of Breast Cancer and finishing up last chemo treatment on Thursday11/29/19. Also has Fibromyalgia, Myasthenia Gravis. Patient's has Muscular Dystrophy recently fell and broke his knee. He was in the hospital for several weeks and she helped him rehabilitate at home. But she reports feelings of being overwhelmed with housekeeping, cooking and taking care of the household. States that her anxiety and depression is debilitating because she wants to clean the house because when it is messy she gets anxious but the depression stops her from being motivated to do it." VITAL SIGNS: See below. NEW TEST RESULTS: CURRENT MEDICATIONS: See below. MENTAL STATUS EXAMINATION: Mitra is a 39 year old female with h/o previous admissions to [facility] and a h/o Depression, previous suicide attempts and multiple medical illnesses. She was dressed in hospital clothes, she was cooperative, restless, very fidgety. Her hair was shaved. Speech: Spontaneous and fluent, normal in rate, tone and volume Language skills intact Thought processes including: linear and coherent Thought content: Anxious and depressed thoughts, reported recent suicidal thoughts "just what I would do to myself, but not here" ( she mentioned she had those suicidal thoughts 1-2 hours before this interview) Abstract reasoning, and computation: fair Description of associations: not loose Description of abnormal or psychotic thoughts: She denies thought delusions, she denies TAV hallucinations Judgment: fair Insight: fair Orientation: x 3 Recent and remote memory: good Attention span and concentration: good Language: no abnormalities observed Fund of knowledge: average and anxious Mood: depressed. Affect: congruent with mood DIAGNOSES: 1. Major Depressive Disorder, Recurrent, Moderate 2. Anxiety Disorder ASSESSMENT: The patient has been at [facility] before, i had her under my care. She has a h/o depression and anxiety and what I believed to be PTSD and Borderline Personality disorder. She has a family history of depression, substance abuse and suicide. her life is difficult because she has multiple medical illnesses that interfere with her level of functioning and later on she has been dealing with radiotherapy, chemotherapy and a diagnosis of breast cancer. As she says, she has kept "lots of things inside". MANAGEMENT PLAN: The patient should continue on the same treatment plan. Encouraged her to remain outside of her room as long as she could do it because when she goes in she starts ruminating about her depression and anxiety. encouraged her to seek help in case she would feel that she is in danger to self or others. TIME SPENT: 20 minutes. Vital Signs Vital Signs Date Time Temp Pulse Resp B/P (MAP) Pulse Ox O2 Delivery O2 Flow Rate FiO2 12/03/19 07:01 97.7 101 16 151/95 (113) 100 Room Air Current Medications Current Medications Medications (Trade) Dose Ordered Sig/Ben Route PRN Reason Start Time Stop Time Status Last Admin Dose Admin Acetaminophen (Tylenol Tab) 650 mg Q6HP PRN PO HEADACHE or DISCOMFORT 11/30/19 16:30 12/03/19 15:37 Acetazolamide (Diamox) 500 mg BID PO 11/30/19 09:00 11/30/19 09:03 DC Acetazolamide (Diamox) 500 mg BID PO 11/30/19 21:00 12/03/19 09:34 Acetazolamide (Diamox) 500 mg BID@0900,1700 PO 11/30/19 09:00 11/30/19 16:48 DC 11/30/19 09:31 Acyclovir (Zovirax) 400 mg BID PO 11/30/19 09:00 12/03/19 09:31 Al Hydrox/Mg Hydrox/Simethicone (Mylanta) 30 ml Q4HP PRN PO HEARTBURN/INDIGESTION 11/30/19 16:30 Baclofen (Lioresal) 10 mg TID PRN PO MUSCLE SPASMS 11/30/19 16:30 12/03/19 15:37 Clozapine (Clozaril) 100 mg QHS PO 11/30/19 21:00 11/30/19 16:50 DC Clozapine (Clozaril) 100 mg QHS PO 11/30/19 21:00 12/02/19 21:40 Docusate Sodium (Colace) 100 mg DAILY PO 12/01/19 09:00 12/03/19 09:31 Docusate Sodium (Colace) 100 mg DAILY PO 11/30/19 09:00 11/30/19 16:48 DC 11/30/19 09:07 Fish Oil ([place]-3 (1000mg)) 1 cap DAILY PO 12/01/19 09:00 12/03/19 09:33 Fish Oil ([place]-3 (1000mg)) 1 cap DAILY PO 11/30/19 09:00 11/30/19 16:55 DC 11/30/19 09:31 Fluoxetine HCl (PROzac) 20 mg DAILY PO 12/01/19 09:00 12/03/19 09:34 Fluoxetine HCl (PROzac) 20 mg DAILY PO 11/30/19 09:00 11/30/19 16:49 DC 11/30/19 09:06 Folic Acid (Folic Acid) 1 mg DAILY PO 12/01/19 09:00 12/03/19 09:33 Folic Acid (Folic Acid) 1 mg DAILY PO 11/30/19 09:00 11/30/19 16:51 DC 11/30/19 09:08 Home Med (Med Rec Complete!) ASDIRECTED XX 11/29/19 23:00 11/29/19 22:51 DC Hydroxyzine HCl (Atarax) 50 mg Q6HP PRN PO anxiety 12/02/19 09:00 12/03/19 17:03 Lidocaine (Lidoderm Patch) 1 patch DAILY TD 12/03/19 09:00 12/03/19 13:22 Magnesium Hydroxide (Milk Of Magnesia) 30 ml DAILYPRN PRN PO CONSTIPATION 11/30/19 16:30 Mirtazapine (Remeron) 30 mg QHS PO 11/30/19 21:00 11/30/19 16:52 DC Mirtazapine (Remeron) 30 mg QHS PO 11/30/19 21:00 12/02/19 21:40 Mycophenolate Mofetil (Cellcept) 1,000 mg TID PO 11/30/19 09:00 11/30/19 17:18 DC 11/30/19 09:33 Mycophenolate Mofetil (Cellcept) 1,000 mg TID PO 11/30/19 21:00 12/03/19 15:37 Naltrexone HCl (Revia) 50 mg DAILY PO 12/01/19 09:00 12/03/19 09:34 Naltrexone HCl (Revia) 50 mg DAILY PO 11/30/19 09:00 11/30/19 17:20 DC 11/30/19 09:31 Non-Formulary Medication ( See Comment Field Below ) REMOVE LIDODERM PATCH DAILY@21 XX 12/03/19 21:00 Omeprazole (PriLOSEC) 20 mg DAILY PO 12/01/19 09:00 12/03/19 09:34 Omeprazole (PriLOSEC) 20 mg DAILY PO 11/30/19 09:00 11/30/19 16:54 DC 11/30/19 09:07 Pyridostigmine [place] (Mestinon) 90 mg QID PO 11/30/19 09:00 11/30/19 17:21 DC 11/30/19 14:38 Pyridostigmine [place] ([place]) 90 mg QID PO 11/30/19 17:00 12/03/19 17:04 Senna (Senokot) 2 tab QHS PRN PO CONSTIPATION 11/30/19 16:30 Torsemide (Demadex) 20 mg DAILY PO 12/01/19 09:00 12/03/19 09:34 Torsemide (Demadex) 20 mg DAILY PO 11/30/19 09:00 11/30/19 16:53 DC 11/30/19 09:08 Venlafaxine HCl (Effexor Xr) 225 mg DAILY PO 12/01/19 09:00 12/03/19 09:33 Venlafaxine HCl (Effexor Xr) 225 mg DAILY PO 11/30/19 09:00 11/30/19 16:53 DC 11/30/19 09:08 Venlafaxine HCl (Effexor) 225 mg DAILY PO 11/30/19 09:00 11/30/19 07:50 DC Vitamin D (Vitamin D) 5,000 units DAILY PO 11/30/19 09:00 12/03/19 09:31 Zolpidem Tartrate (Ambien) 10 mg QHSP PRN PO INSOMNIA 11/30/19 16:30 12/01/19 21:29 Allergies Coded Allergies: amitriptyline (Verified Allergy, Severe, SWELLING, 11/29/19) Grass (Verified Allergy, Mild, ITCHY EYES,NOSE, 11/29/19) TAPE (Verified Allergy, Mild, RASH/BLISTER, 11/29/19) TREES (Verified Allergy, Mild, ITCHY EYES,NOSE, 11/29/19) adhesive (Verified Allergy, Unknown, 11/29/19) divalproex sodium (Verified Allergy, Unknown, 11/29/19) minocycline (Verified Allergy, Unknown, 11/29/19) mold (Verified Allergy, Unknown, 11/29/19) tetracycline (Verified Allergy, Unknown, 11/29/19) bupropion (Verified Adverse Reaction, Intermediate, ESOPHAGEAL SPASMS, 11/29/19) banana (Verified Adverse Reaction, Mild, VOMITING, 11/29/19) benztropine (Verified Adverse Reaction, Mild, BLURRED VISION, 11/29/19) clindamycin (Verified Adverse Reaction, Mild, HEART BURN, 11/29/19) gabapentin (Verified Adverse Reaction, Mild, extreme weakness, 11/29/19) metaxalone (Verified Adverse Reaction, Mild, itching, 11/29/19) pregabalin (Verified Adverse Reaction, Mild, EDEMA, 11/29/19) sulfamethoxazole (Verified Adverse Reaction, Mild, DIARRHEA, 11/29/19) tizanidine (Verified Adverse Reaction, Mild, ITCHING, 11/29/19) trazodone (Verified Adverse Reaction, Mild, EDEMA, 11/29/19) trimethoprim (Verified Adverse Reaction, Mild, DIARRHEA, 11/29/19) vilazodone (Verified Adverse Reaction, Mild, MOOD CHANGES, 11/29/19) cyclobenzaprine (Verified Adverse Reaction, Unknown, IRRITABILITY, 11/29/19) valproic acid (Unverified Adverse Reaction, Unknown, DOES NOT METABOLIZE, 11/29/19) MARK ANTHONY HDZ MD Dec 03, 2019 18:32
[2019-12-03] MEDS ORDERED: LORazepam 1 MG TAB PO ONE (19:00)
[2019-12-03] MEDS: PILL CUTTER 1 EACH XX PRN (20:52)
[2019-12-03] MEDS: cloZAPine 100 MG TAB (S0136) PO SCH (20:54)
[2019-12-03] MEDS: MIRTAZAPINE 15 MG TAB PO SCH (20:54)
[2019-12-03] MEDS: **NOTE PATIENT COMMENT** MISC XX SCH (21:00)
[2019-12-03] MEDS: zolPIDEM TARTRATE 5 MG TAB PO PRN (21:43)
[2019-12-04 06:38] VITALS: BP 146/87
[2019-12-04] MEDS: OMEGA-3 1000MG CAPSULE PO SCH (10:01)
[2019-12-04] MEDS: OMEPRAZOLE 20 MG CAP PO SCH (10:01)
[2019-12-04] MEDS: VENLAFAXINE **XR** 75MG CAPSULE PO SCH (10:02)
[2019-12-04] MEDS: ACYCLOVIR 200 MG CAPSULE PO SCH ×2 (10:02→20:10)
[2019-12-04] MEDS: VITAMIN D 1,000 INTERNATIONAL UNITS TABLET PO SCH (10:02)
[2019-12-04] MEDS: FOLIC ACID 1 MG TAB PO SCH (10:02)
[2019-12-04] MEDS: DOCUSATE SODIUM 100 MG CAP PO SCH (10:02)
[2019-12-04] MEDS: FLUoxetine 20 MG CAP PO SCH (10:02)
[2019-12-04] MEDS: TORSEMIDE 20 MG TAB PO SCH (10:03)
[2019-12-04] MEDS: acetaZOLAMIDE 250 MG TAB PO SCH ×2 (10:03→20:10)
[2019-12-04] MEDS: BACLOFEN 10 MG TAB PO PRN ×2 (10:03→18:59)
[2019-12-04] MEDS: NALTREXONE 50 MG TAB PO SCH (10:03)
[2019-12-04] MEDS: MYCOPHENOLATE MOFETIL 250 MG CAP (J7517) PO SCH ×3 (10:03→20:18)
[2019-12-04] MEDS: LIDOCAINE 5% (LIDODERM) PATCH TD SCH (10:04)
[2019-12-04] MEDS: PYRIDOSTIGMINE 60 MG TAB PO SCH ×4 (10:05→20:12)
[2019-12-04] MEDS: hydrOXYzine 50 MG TAB PO PRN (11:23)
--- NOTE | 2019-12-04 15:05 | MHIPNPDOC ---
[facility] Progress Note Progress Note DATE OF SERVICE: 12/04/19 HISTORY: Patient is a 39 -year-old , Disabled, Comiciled , Female, who reports many situational stressors and long history of psychiatric illnesses. As per previous notes: "Patient reports increase in Depressive Symptoms due to situational stressors: 1) Patient has numerous medication conditions including diagnosis of Breast Cancer and finishing up last chemo treatment on Thursday11/29/19. Also has Fibromyalgia, Myasthenia Gravis. Patient's has Muscular Dystrophy recently fell and broke his knee. He was in the hospital for several weeks and she helped him rehabilitate at home. But she reports feelings of being overwhelmed with housekeeping, cooking and taking care of the household. States that her anxiety and depression is debilitating because she wants to clean the house because when it is messy she gets anxious but the depression stops her from being motivated to do it." VITAL SIGNS: See below. NEW TEST RESULTS: CURRENT MEDICATIONS: See below. MENTAL STATUS EXAMINATION: Mitra is a 39 year old female with h/o previous admissions to [facility] and a h/o Depression, previous suicide attempts and multiple medical illnesses. She was dressed in hospital clothes, she was cooperative, restless, very fidgety. Her hair was shaved. Speech: Spontaneous and fluent, normal in rate, tone and volume Language skills intact Thought processes including: linear and coherent Thought content: Anxious and depressed thoughts but she denied SI/HI or thought delusions Abstract reasoning, and computation: fair Description of associations: not loose Description of abnormal or psychotic thoughts: She denies thought delusions, she denies TAV hallucinations Judgment: fair Insight: fair Orientation: x 3 Recent and remote memory: good Attention span and concentration: good Language: no abnormalities observed Fund of knowledge: average and anxious Mood: depressed and anxious Affect: congruent with mood DIAGNOSES: 1. Major Depressive Disorder, Recurrent, Moderate 2. Anxiety Disorder ASSESSMENT: The patient is less anxious and less depressed than yesterday but she is still concerned about her marital relationship and not being able to comply with house chores, etc. because she feels she has no energy and no motivation. MANAGEMENT PLAN: The patient should continue on the same treatment plan. TIME SPENT: 20 minutes. Vital Signs Vital Signs Date Time Temp Pulse Resp B/P (MAP) Pulse Ox O2 Delivery O2 Flow Rate FiO2 12/04/19 06:38 97.1 84 14 146/87 (106) 95 Room Air Current Medications Current Medications Medications (Trade) Dose Ordered Sig/Ben Route PRN Reason Start Time Stop Time Status Last Admin Dose Admin Acetaminophen (Tylenol Tab) 650 mg Q6HP PRN PO HEADACHE or DISCOMFORT 11/30/19 16:30 12/03/19 15:37 Acetazolamide (Diamox) 500 mg BID PO 11/30/19 09:00 11/30/19 09:03 DC Acetazolamide (Diamox) 500 mg BID PO 11/30/19 21:00 12/04/19 10:03 Acetazolamide (Diamox) 500 mg BID@0900,1700 PO 11/30/19 09:00 11/30/19 16:48 DC 11/30/19 09:31 Acyclovir (Zovirax) 400 mg BID PO 11/30/19 09:00 12/04/19 10:02 Al Hydrox/Mg Hydrox/Simethicone (Mylanta) 30 ml Q4HP PRN PO HEARTBURN/INDIGESTION 11/30/19 16:30 Baclofen (Lioresal) 10 mg TID PRN PO MUSCLE SPASMS 11/30/19 16:30 12/04/19 10:03 Clozapine (Clozaril) 100 mg QHS PO 11/30/19 21:00 11/30/19 16:50 DC Clozapine (Clozaril) 100 mg QHS PO 11/30/19 21:00 12/03/19 20:54 Docusate Sodium (Colace) 100 mg DAILY PO 12/01/19 09:00 12/04/19 10:02 Docusate Sodium (Colace) 100 mg DAILY PO 11/30/19 09:00 11/30/19 16:48 DC 11/30/19 09:07 Fish Oil ([place]-3 (1000mg)) 1 cap DAILY PO 12/01/19 09:00 12/04/19 10:01 Fish Oil ([place]-3 (1000mg)) 1 cap DAILY PO 11/30/19 09:00 11/30/19 16:55 DC 11/30/19 09:31 Fluoxetine HCl (PROzac) 20 mg DAILY PO 12/01/19 09:00 12/04/19 10:02 Fluoxetine HCl (PROzac) 20 mg DAILY PO 11/30/19 09:00 11/30/19 16:49 DC 11/30/19 09:06 Folic Acid (Folic Acid) 1 mg DAILY PO 12/01/19 09:00 12/04/19 10:02 Folic Acid (Folic Acid) 1 mg DAILY PO 11/30/19 09:00 11/30/19 16:51 DC 11/30/19 09:08 Home Med (Med Rec Complete!) ASDIRECTED XX 11/29/19 23:00 11/29/19 22:51 DC Hydroxyzine HCl (Atarax) 50 mg Q6HP PRN PO anxiety 12/02/19 09:00 12/04/19 11:23 Lidocaine (Lidoderm Patch) 1 patch DAILY TD 12/03/19 09:00 12/04/19 10:04 Magnesium Hydroxide (Milk Of Magnesia) 30 ml DAILYPRN PRN PO CONSTIPATION 11/30/19 16:30 Mirtazapine (Remeron) 30 mg QHS PO 11/30/19 21:00 11/30/19 16:52 DC Mirtazapine (Remeron) 30 mg QHS PO 11/30/19 21:00 12/03/19 20:54 Miscellaneous (Unresolved Clarification Entry) SEE LABEL COMMENTS DAILY XX 12/04/19 09:00 12/04/19 09:43 DC Mycophenolate Mofetil (Cellcept) 1,000 mg TID PO 11/30/19 09:00 11/30/19 17:18 DC 11/30/19 09:33 Mycophenolate Mofetil (Cellcept) 1,000 mg TID PO 11/30/19 21:00 12/04/19 10:03 Naltrexone HCl (Revia) 50 mg DAILY PO 12/01/19 09:00 12/04/19 10:03 Naltrexone HCl (Revia) 50 mg DAILY PO 11/30/19 09:00 11/30/19 17:20 DC 11/30/19 09:31 Non-Formulary Medication ( See Comment Field Below ) REMOVE LIDODERM PATCH DAILY@21 XX 12/03/19 21:00 12/03/19 21:00 Omeprazole (PriLOSEC) 20 mg DAILY PO 12/01/19 09:00 12/04/19 10:01 Omeprazole (PriLOSEC) 20 mg DAILY PO 11/30/19 09:00 11/30/19 16:54 DC 11/30/19 09:07 Pyridostigmine [place] (Mestinon) 90 mg QID PO 11/30/19 09:00 11/30/19 17:21 DC 11/30/19 14:38 Pyridostigmine [place] (Mestinon) 90 mg QID PO 11/30/19 17:00 12/04/19 12:39 Senna (Senokot) 2 tab QHS PRN PO CONSTIPATION 11/30/19 16:30 12/03/19 21:43 Torsemide (Demadex) 20 mg DAILY PO 12/01/19 09:00 12/04/19 10:03 Torsemide (Demadex) 20 mg DAILY PO 11/30/19 09:00 11/30/19 16:53 DC 11/30/19 09:08 Venlafaxine HCl (Effexor Xr) 225 mg DAILY PO 12/01/19 09:00 12/04/19 10:02 Venlafaxine HCl (Effexor Xr) 225 mg DAILY PO 11/30/19 09:00 11/30/19 16:53 DC 11/30/19 09:08 Venlafaxine HCl (Effexor) 225 mg DAILY PO 11/30/19 09:00 11/30/19 07:50 DC Vitamin D (Vitamin D) 5,000 units DAILY PO 11/30/19 09:00 12/04/19 10:02 Zolpidem Tartrate (Ambien) 10 mg QHSP PRN PO INSOMNIA 11/30/19 16:30 12/03/19 21:43 Allergies Coded Allergies: amitriptyline (Verified Allergy, Severe, SWELLING, 11/29/19) Grass (Verified Allergy, Mild, ITCHY EYES,NOSE, 11/29/19) TAPE (Verified Allergy, Mild, RASH/BLISTER, 11/29/19) TREES (Verified Allergy, Mild, ITCHY EYES,NOSE, 11/29/19) adhesive (Verified Allergy, Unknown, 11/29/19) divalproex sodium (Verified Allergy, Unknown, 11/29/19) minocycline (Verified Allergy, Unknown, 11/29/19) mold (Verified Allergy, Unknown, 11/29/19) tetracycline (Verified Allergy, Unknown, 11/29/19) bupropion (Verified Adverse Reaction, Intermediate, ESOPHAGEAL SPASMS, 11/29/19) banana (Verified Adverse Reaction, Mild, VOMITING, 11/29/19) benztropine (Verified Adverse Reaction, Mild, BLURRED VISION, 11/29/19) clindamycin (Verified Adverse Reaction, Mild, HEART BURN, 11/29/19) gabapentin (Verified Adverse Reaction, Mild, extreme weakness, 11/29/19) metaxalone (Verified Adverse Reaction, Mild, itching, 11/29/19) pregabalin (Verified Adverse Reaction, Mild, EDEMA, 11/29/19) sulfamethoxazole (Verified Adverse Reaction, Mild, DIARRHEA, 11/29/19) tizanidine (Verified Adverse Reaction, Mild, ITCHING, 11/29/19) trazodone (Verified Adverse Reaction, Mild, EDEMA, 11/29/19) trimethoprim (Verified Adverse Reaction, Mild, DIARRHEA, 11/29/19) vilazodone (Verified Adverse Reaction, Mild, MOOD CHANGES, 11/29/19) cyclobenzaprine (Verified Adverse Reaction, Unknown, IRRITABILITY, 11/29/19) valproic acid (Unverified Adverse Reaction, Unknown, DOES NOT METABOLIZE, 11/29/19) MARK ANTHONY HDZ MD Dec 04, 2019 15:05
[2019-12-04 18:00] VITALS: BP 127/69
[2019-12-04] MEDS: ACETAMINOPHEN TAB 650MG DOSE (2X325MG) PO PRN (18:59)
[2019-12-04] MEDS: cloZAPine 100 MG TAB (S0136) PO SCH (20:09)
[2019-12-04] MEDS: MIRTAZAPINE 15 MG TAB PO SCH (20:09)
[2019-12-04] MEDS: PILL CUTTER 1 EACH XX PRN (20:12)
[2019-12-04] MEDS: zolPIDEM TARTRATE 5 MG TAB PO PRN (20:21)
[2019-12-04] MEDS: **NOTE PATIENT COMMENT** MISC XX SCH (20:22)
[2019-12-05 06:04] VITALS: BP 156/68
[2019-12-05] MEDS: hydrOXYzine 50 MG TAB PO PRN ×2 (07:24→12:58)
[2019-12-05] MEDS: NALTREXONE 50 MG TAB PO SCH (09:37)
[2019-12-05] MEDS: DOCUSATE SODIUM 100 MG CAP PO SCH (09:37)
[2019-12-05] MEDS: VENLAFAXINE **XR** 75MG CAPSULE PO SCH (09:37)
[2019-12-05] MEDS: MYCOPHENOLATE MOFETIL 250 MG CAP (J7517) PO SCH ×3 (09:38→21:24)
[2019-12-05] MEDS: ACYCLOVIR 200 MG CAPSULE PO SCH ×2 (09:39→21:24)
[2019-12-05] MEDS: VITAMIN D 1,000 INTERNATIONAL UNITS TABLET PO SCH (09:39)
[2019-12-05] MEDS: OMEPRAZOLE 20 MG CAP PO SCH (09:40)
[2019-12-05] MEDS: PILL CUTTER 1 EACH XX PRN ×4 (09:40→21:25)
[2019-12-05] MEDS: PYRIDOSTIGMINE 60 MG TAB PO SCH ×4 (09:40→21:27)
[2019-12-05] MEDS: FLUoxetine 20 MG CAP PO SCH (09:40)
[2019-12-05] MEDS: FOLIC ACID 1 MG TAB PO SCH (09:42)
[2019-12-05] MEDS: OMEGA-3 1000MG CAPSULE PO SCH (09:42)
[2019-12-05] MEDS: acetaZOLAMIDE 250 MG TAB PO SCH ×2 (09:42→21:25)
[2019-12-05] MEDS: BACLOFEN 10 MG TAB PO PRN ×2 (09:42→21:26)
[2019-12-05] MEDS: LIDOCAINE 5% (LIDODERM) PATCH TD SCH (09:43)
[2019-12-05] MEDS: TORSEMIDE 20 MG TAB PO SCH (09:43)
--- NOTE | 2019-12-05 12:13 | MHIPNPDOC ---
[facility] Progress Note Progress Note DATE OF SERVICE: 12/05/19 ISTORY: Patient is a 39 -year-old , Disabled, Comiciled , Female, who reports many situational stressors and long history of psychiatric illnesses. As per previous notes: "Patient reports increase in Depressive Symptoms due to situational stressors: 1) Patient has numerous medication conditions including diagnosis of Breast Cancer and finishing up last chemo treatment on Thursday11/29/19. Also has Fibromyalgia, Myasthenia Gravis. Patient's has Muscular Dystrophy recently fell and broke his knee. He was in the hospital for several weeks and she helped him rehabilitate at home. But she reports feelings of being overwhelmed with housekeeping, cooking and taking care of the household. States that her anxiety and depression is debilitating because she wants to clean the house because when it is messy she gets anxious but the depression stops her from being motivated to do it." VITAL SIGNS: See below. NEW TEST RESULTS: CURRENT MEDICATIONS: See below. MENTAL STATUS EXAMINATION: Mitra is a 39 year old female with h/o previous admissions to [facility] and a h/o Depression, previous suicide attempts and multiple medical illnesses. She was dressed in hospital clothes, she was cooperative, . Her hair was shaved. Speech: Spontaneous and fluent, normal in rate, tone and volume Language skills intact Thought processes including: linear and coherent Thought content: Anxious and depressed thoughts but she denied SI/HI or thought delusions Abstract reasoning, and computation: fair Description of associations: not loose Description of abnormal or psychotic thoughts: She denies thought delusions, she denies T/A/V hallucinations Judgment: fair Insight: fair Orientation: x 3 Recent and remote memory: good Attention span and concentration: good Language: no abnormalities observed Fund of knowledge: average and anxious Mood: depressed and anxious Affect: congruent with mood DIAGNOSES: 1. Major Depressive Disorder, Recurrent, Moderate 2. Anxiety Disorder ASSESSMENT: She rates her depression 8/10, and anxiety 6/10 and agitation 6/10. States that she has pent up anger at times, would like to punch something. She is not observed with any agitation or threats to harm others. Patient reports that she has very sedentary life at home. We discussed her relationship with her son, she reports that she had suggested that he take Karate, I made the recommendation that she consider it for herself if she feels at times like wanting to direct her anger a sport that may help with her agitation, need to punch may help her. She was contemplating this and reported that she can see the value in this activity. We also discussed the importance of exercise. MANAGEMENT PLAN: Will continue all medications, consider increasing Clozaril to 125 mg. Labs to monitor current neutrophils count result. TIME SPENT: 20 minutes. Vital Signs Vital Signs Date Time Temp Pulse Resp B/P (MAP) Pulse Ox O2 Delivery O2 Flow Rate FiO2 12/05/19 06:04 97.9 89 20 156/68 (97) 96 Room Air Current Medications Current Medications Medications (Trade) Dose Ordered Sig/Ben Route PRN Reason Start Time Stop Time Status Last Admin Dose Admin Acetaminophen (Tylenol Tab) 650 mg Q6HP PRN PO HEADACHE or DISCOMFORT 11/30/19 16:30 12/04/19 18:59 Acetazolamide (Diamox) 500 mg BID PO 11/30/19 09:00 11/30/19 09:03 DC Acetazolamide (Diamox) 500 mg BID PO 11/30/19 21:00 12/05/19 09:42 Acetazolamide (Diamox) 500 mg BID@0900,1700 PO 11/30/19 09:00 11/30/19 16:48 DC 11/30/19 09:31 Acyclovir (Zovirax) 400 mg BID PO 11/30/19 09:00 12/05/19 09:39 Al Hydrox/Mg Hydrox/Simethicone (Mylanta) 30 ml Q4HP PRN PO HEARTBURN/INDIGESTION 11/30/19 16:30 Baclofen (Lioresal) 10 mg TID PRN PO MUSCLE SPASMS 11/30/19 16:30 12/05/19 09:42 Clozapine (Clozaril) 100 mg QHS PO 11/30/19 21:00 11/30/19 16:50 DC Clozapine (Clozaril) 100 mg QHS PO 11/30/19 21:00 12/04/19 20:09 Docusate Sodium (Colace) 100 mg DAILY PO 12/01/19 09:00 12/05/19 09:37 Docusate Sodium (Colace) 100 mg DAILY PO 11/30/19 09:00 11/30/19 16:48 DC 11/30/19 09:07 Fish Oil ([place]-3 (1000mg)) 1 cap DAILY PO 12/01/19 09:00 12/05/19 09:42 Fish Oil ([place]-3 (1000mg)) 1 cap DAILY PO 11/30/19 09:00 11/30/19 16:55 DC 11/30/19 09:31 Fluoxetine HCl (PROzac) 20 mg DAILY PO 12/01/19 09:00 12/05/19 09:40 Fluoxetine HCl (PROzac) 20 mg DAILY PO 11/30/19 09:00 11/30/19 16:49 DC 11/30/19 09:06 Folic Acid (Folic Acid) 1 mg DAILY PO 12/01/19 09:00 12/05/19 09:42 Folic Acid (Folic Acid) 1 mg DAILY PO 11/30/19 09:00 11/30/19 16:51 DC 11/30/19 09:08 Home Med (Med Rec Complete!) ASDIRECTED XX 11/29/19 23:00 11/29/19 22:51 DC Hydroxyzine HCl (Atarax) 50 mg Q6HP PRN PO anxiety 12/02/19 09:00 12/05/19 07:24 Lidocaine (Lidoderm Patch) 1 patch DAILY TD 12/03/19 09:00 12/05/19 09:43 Magnesium Hydroxide (Milk Of Magnesia) 30 ml DAILYPRN PRN PO CONSTIPATION 11/30/19 16:30 Mirtazapine (Remeron) 30 mg QHS PO 11/30/19 21:00 11/30/19 16:52 DC Mirtazapine (Remeron) 30 mg QHS PO 11/30/19 21:00 12/04/19 20:09 Miscellaneous (Unresolved Clarification Entry) SEE LABEL COMMENTS DAILY XX 12/04/19 09:00 12/04/19 09:43 DC Mycophenolate Mofetil (Cellcept) 1,000 mg TID PO 11/30/19 09:00 11/30/19 17:18 DC 11/30/19 09:33 Mycophenolate Mofetil (Cellcept) 1,000 mg TID PO 11/30/19 21:00 12/05/19 09:38 Naltrexone HCl (Revia) 50 mg DAILY PO 12/01/19 09:00 12/05/19 09:37 Naltrexone HCl (Revia) 50 mg DAILY PO 11/30/19 09:00 11/30/19 17:20 DC 11/30/19 09:31 Non-Formulary Medication ( See Comment Field Below ) REMOVE LIDODERM PATCH DAILY@21 XX 12/03/19 21:00 12/04/19 20:22 Omeprazole (PriLOSEC) 20 mg DAILY PO 12/01/19 09:00 12/05/19 09:40 Omeprazole (PriLOSEC) 20 mg DAILY PO 11/30/19 09:00 11/30/19 16:54 DC 11/30/19 09:07 Pyridostigmine [place] (Mestinon) 90 mg QID PO 11/30/19 09:00 11/30/19 17:21 DC 11/30/19 14:38 Pyridostigmine [place] (Mestinon) 90 mg QID PO 11/30/19 17:00 12/05/19 09:40 Senna (Senokot) 2 tab QHS PRN PO CONSTIPATION 11/30/19 16:30 12/03/19 21:43 Torsemide (Demadex) 20 mg DAILY PO 12/01/19 09:00 12/05/19 09:43 Torsemide (Demadex) 20 mg DAILY PO 11/30/19 09:00 11/30/19 16:53 DC 11/30/19 09:08 Venlafaxine HCl (Effexor Xr) 225 mg DAILY PO 12/01/19 09:00 12/05/19 09:37 Venlafaxine HCl (Effexor Xr) 225 mg DAILY PO 11/30/19 09:00 11/30/19 16:53 DC 11/30/19 09:08 Venlafaxine HCl (Effexor) 225 mg DAILY PO 11/30/19 09:00 11/30/19 07:50 DC Vitamin D (Vitamin D) 5,000 units DAILY PO 11/30/19 09:00 12/05/19 09:39 Zolpidem Tartrate (Ambien) 10 mg QHSP PRN PO INSOMNIA 11/30/19 16:30 12/04/19 20:21 Allergies Coded Allergies: amitriptyline (Verified Allergy, Severe, SWELLING, 11/29/19) Grass (Verified Allergy, Mild, ITCHY EYES,NOSE, 11/29/19) TAPE (Verified Allergy, Mild, RASH/BLISTER, 11/29/19) TREES (Verified Allergy, Mild, ITCHY EYES,NOSE, 11/29/19) adhesive (Verified Allergy, Unknown, 11/29/19) divalproex sodium (Verified Allergy, Unknown, 11/29/19) minocycline (Verified Allergy, Unknown, 11/29/19) mold (Verified Allergy, Unknown, 11/29/19) tetracycline (Verified Allergy, Unknown, 11/29/19) bupropion (Verified Adverse Reaction, Intermediate, ESOPHAGEAL SPASMS, 11/29/19) banana (Verified Adverse Reaction, Mild, VOMITING, 11/29/19) benztropine (Verified Adverse Reaction, Mild, BLURRED VISION, 11/29/19) clindamycin (Verified Adverse Reaction, Mild, HEART BURN, 11/29/19) gabapentin (Verified Adverse Reaction, Mild, extreme weakness, 11/29/19) metaxalone (Verified Adverse Reaction, Mild, itching, 11/29/19) pregabalin (Verified Adverse Reaction, Mild, EDEMA, 11/29/19) sulfamethoxazole (Verified Adverse Reaction, Mild, DIARRHEA, 11/29/19) tizanidine (Verified Adverse Reaction, Mild, ITCHING, 11/29/19) trazodone (Verified Adverse Reaction, Mild, EDEMA, 11/29/19) trimethoprim (Verified Adverse Reaction, Mild, DIARRHEA, 11/29/19) vilazodone (Verified Adverse Reaction, Mild, MOOD CHANGES, 11/29/19) cyclobenzaprine (Verified Adverse Reaction, Unknown, IRRITABILITY, 11/29/19) valproic acid (Unverified Adverse Reaction, Unknown, DOES NOT METABOLIZE, 11/29/19) GEORGE DAWN NP Dec 05, 2019 12:13
[2019-12-05] MEDS: **NOTE PATIENT COMMENT** MISC XX SCH (13:00)
[2019-12-05 13:42] LABS: BASO % 0.4 % (0.0-1.0); EOS # 0.4 10^3/uL (0.0-0.5); EOS % 5.8 % (0.0-3.0); HEMATOCRIT 42.3 % (36.0-47.0); HEMOGLOBIN 13.5 g/dl (12.0-15.5); LYMPH # 0.5 10^3/uL (1.5-5.0); LYMPH % 7.7 % (24.0-44.0); MEAN CORPUSCULAR HEMOGLOBIN 28.4 pg (27.0-33.0); MEAN CORPUSCULAR HGB CONC 31.9 g/dl (32.0-36.5); MEAN CORPUSCULAR VOLUME 88.9 fl (80.0-96.0); MONO # 0.5 10^3/uL (0.0-0.8); MONO % 6.8 % (0.0-5.0); NEUTROPHILS # 5.3 10^3/uL (1.5-8.5); NEUTROPHILS % 78.9 % (36.0-66.0); PLATELET COUNT, AUTOMATED 235 10^3/uL (150-450); RED BLOOD COUNT 4.76 10^6/uL (4.00-5.40); WHITE BLOOD COUNT 6.7 10^3/uL (4.0-10.0)
[2019-12-05] MEDS: ACETAMINOPHEN TAB 650MG DOSE (2X325MG) PO PRN (14:32)
[2019-12-05 16:44] VITALS: BP 120/76
[2019-12-05] MEDS: MIRTAZAPINE 15 MG TAB PO SCH (21:26)
[2019-12-05] MEDS: cloZAPine 100 MG TAB (S0136) PO SCH (21:27)
[2019-12-05] MEDS: zolPIDEM TARTRATE 5 MG TAB PO PRN (21:27)
[2019-12-06 06:32] VITALS: BP 135/65
[2019-12-06] MEDS: NALTREXONE 50 MG TAB PO SCH (08:39)
[2019-12-06] MEDS: FLUoxetine 20 MG CAP PO SCH (08:39)
[2019-12-06] MEDS: PILL CUTTER 1 EACH XX PRN ×3 (08:39→18:05)
[2019-12-06] MEDS: PYRIDOSTIGMINE 60 MG TAB PO SCH ×4 (08:39→21:46)
[2019-12-06] MEDS: FOLIC ACID 1 MG TAB PO SCH (08:40)
[2019-12-06] MEDS: ACETAMINOPHEN TAB 650MG DOSE (2X325MG) PO PRN (08:40)
[2019-12-06] MEDS: VITAMIN D 1,000 INTERNATIONAL UNITS TABLET PO SCH (08:40)
[2019-12-06] MEDS: OMEPRAZOLE 20 MG CAP PO SCH (08:40)
[2019-12-06] MEDS: VENLAFAXINE **XR** 75MG CAPSULE PO SCH (08:40)
[2019-12-06] MEDS: MYCOPHENOLATE MOFETIL 250 MG CAP (J7517) PO SCH ×3 (08:41→21:49)
[2019-12-06] MEDS: DOCUSATE SODIUM 100 MG CAP PO SCH (08:41)
[2019-12-06] MEDS: BACLOFEN 10 MG TAB PO PRN ×2 (08:41→15:44)
[2019-12-06] MEDS: OMEGA-3 1000MG CAPSULE PO SCH (08:41)
[2019-12-06] MEDS: ACYCLOVIR 200 MG CAPSULE PO SCH ×2 (08:41→21:47)
[2019-12-06] MEDS: TORSEMIDE 20 MG TAB PO SCH (08:42)
[2019-12-06] MEDS: acetaZOLAMIDE 250 MG TAB PO SCH ×2 (08:42→21:48)
[2019-12-06] MEDS: LIDOCAINE 5% (LIDODERM) PATCH TD SCH (08:46)
[2019-12-06] MEDS: hydrOXYzine 50 MG TAB PO PRN (11:58)
[2019-12-06] MEDS: IBUPROFEN 800 MG TAB PO PRN (14:34)
--- NOTE | 2019-12-06 15:04 | MHIPNPDOC ---
[facility] Progress Note Progress Note DATE OF SERVICE: 12/06/19 HISTORY: Patient is a 39 -year-old , Disabled, Domiciled , Female, who reports many situational stressors and long history of psychiatric illnesses. As per previous notes: "Patient reports increase in Depressive Symptoms due to situational stressors: 1) Patient has numerous medication conditions including diagnosis of Breast Cancer and finishing up last chemo treatment on Thursday. Also has Fibromyalgia, Myasthenia Gravis. Patient's has Muscular Dystrophy recently fell and broke his knee. He was in the hospital for several weeks and she helped him rehabilitate at home. But she reports feelings of being overwhelmed with housekeeping, cooking and taking care of the household. States that her anxiety and depression is debilitating because she wants to clean the house because when it is messy she gets anxious but the depression stops her from being motivated to do it." VITAL SIGNS: See below. NEW TEST RESULTS: CURRENT MEDICATIONS: See below. MENTAL STATUS EXAMINATION: Mitra is a 39 year old female with h/o previous admissions to [facility] and a h/o Depression, previous suicide attempts and multiple medical illnesses. She was dressed in hospital clothes, she was cooperative, . Her hair was shaved. Speech: Spontaneous and fluent, normal in rate, tone and volume Language skills intact Thought processes including: linear and coherent Thought content: Anxious and depressed thoughts and reporting fleeting suicidal ideation with no current planning or intent Abstract reasoning, and computation: fair Description of associations: not loose Description of abnormal or psychotic thoughts: She denies thought delusions, she denies T/A/V hallucinations Judgment: fair Insight: fair Orientation: x 3 Recent and remote memory: good Attention span and concentration: good Language: no abnormalities observed Fund of knowledge: average and anxious Mood: mild decrease of depression and anxiety Affect: congruent with mood DIAGNOSES: 1. Major Depressive Disorder, Recurrent, Moderate 2. Anxiety Disorder ASSESSMENT: Patient appeared to be less depressed and anxious. She reports that because she had a nursing education specialist and this helped with distraction. We discussed that her Absolute Neutrophil Count is within normal limits. We discussed the possibility of increasing Clozaril, she opted for Hydroxyzine which will help with her anxiety. She states, "I can't go home like this, but I don't want to go to the [facility] Patient's presentation is less depressed and less anxious, she states she only has minimal decrease. MANAGEMENT PLAN: Will continue all medications, patient reporting anxiety is moderately high. Hydroxyzine 100 mg three times daily. TIME SPENT: 20 minutes. Vital Signs Vital Signs Date Time Temp Pulse Resp B/P (MAP) Pulse Ox O2 Delivery O2 Flow Rate FiO2 12/06/19 06:32 99.2 81 16 135/65 (88) 12/05/19 06:04 96 Room Air Current Medications Current Medications Medications (Trade) Dose Ordered Sig/Ben Route PRN Reason Start Time Stop Time Status Last Admin Dose Admin Acetaminophen (Tylenol Tab) 650 mg Q6HP PRN PO HEADACHE or DISCOMFORT 11/30/19 16:30 12/06/19 08:40 Acetazolamide (Diamox) 500 mg BID PO 11/30/19 09:00 11/30/19 09:03 DC Acetazolamide (Diamox) 500 mg BID PO 11/30/19 21:00 12/06/19 08:42 Acetazolamide (Diamox) 500 mg BID@0900,1700 PO 11/30/19 09:00 11/30/19 16:48 DC 11/30/19 09:31 Acyclovir (Zovirax) 400 mg BID PO 11/30/19 09:00 12/06/19 08:41 Al Hydrox/Mg Hydrox/Simethicone (Mylanta) 30 ml Q4HP PRN PO HEARTBURN/INDIGESTION 11/30/19 16:30 Baclofen (Lioresal) 10 mg TID PRN PO MUSCLE SPASMS 11/30/19 16:30 12/06/19 08:41 Clozapine (Clozaril) 100 mg QHS PO 11/30/19 21:00 11/30/19 16:50 DC Clozapine (Clozaril) 100 mg QHS PO 11/30/19 21:00 12/05/19 21:27 Docusate Sodium (Colace) 100 mg DAILY PO 12/01/19 09:00 12/06/19 08:41 Docusate Sodium (Colace) 100 mg DAILY PO 11/30/19 09:00 11/30/19 16:48 DC 11/30/19 09:07 Fish Oil ([place]-3 (1000mg)) 1 cap DAILY PO 12/01/19 09:00 12/06/19 08:41 Fish Oil ([place]-3 (1000mg)) 1 cap DAILY PO 11/30/19 09:00 11/30/19 16:55 DC 11/30/19 09:31 Fluoxetine HCl (PROzac) 20 mg DAILY PO 12/01/19 09:00 12/06/19 08:39 Fluoxetine HCl (PROzac) 20 mg DAILY PO 11/30/19 09:00 11/30/19 16:49 DC 11/30/19 09:06 Folic Acid (Folic Acid) 1 mg DAILY PO 12/01/19 09:00 12/06/19 08:40 Folic Acid (Folic Acid) 1 mg DAILY PO 11/30/19 09:00 11/30/19 16:51 DC 11/30/19 09:08 Home Med (Med Rec Complete!) ASDIRECTED XX 11/29/19 23:00 11/29/19 22:51 DC Hydroxyzine HCl (Atarax) 50 mg Q6HP PRN PO anxiety 12/02/19 09:00 12/06/19 14:20 DC 12/06/19 11:58 Hydroxyzine HCl (Atarax) 100 mg TID PO 12/06/19 16:00 Ibuprofen (Advil) 800 mg Q8HP PRN PO MODERATE PAIN (PS 5-7) 12/06/19 14:30 12/06/19 14:34 Lidocaine (Lidoderm Patch) 1 patch DAILY TD 12/03/19 09:00 12/06/19 08:46 Magnesium Hydroxide (Milk Of Magnesia) 30 ml DAILYPRN PRN PO CONSTIPATION 11/30/19 16:30 Mirtazapine (Remeron) 30 mg QHS PO 11/30/19 21:00 11/30/19 16:52 DC Mirtazapine (Remeron) 30 mg QHS PO 11/30/19 21:00 12/05/19 21:26 Miscellaneous (Unresolved Clarification Entry) SEE LABEL COMMENTS DAILY XX 12/04/19 09:00 12/04/19 09:43 DC Mycophenolate Mofetil (Cellcept) 1,000 mg TID PO 11/30/19 09:00 11/30/19 17:18 DC 11/30/19 09:33 Mycophenolate Mofetil (Cellcept) 1,000 mg TID PO 11/30/19 21:00 12/06/19 08:41 Naltrexone HCl (Revia) 50 mg DAILY PO 12/01/19 09:00 12/06/19 08:39 Naltrexone HCl (Revia) 50 mg DAILY PO 11/30/19 09:00 11/30/19 17:20 DC 11/30/19 09:31 Non-Formulary Medication ( See Comment Field Below ) REMOVE LIDODERM PATCH DAILY@21 XX 12/03/19 21:00 12/05/19 13:00 Omeprazole (PriLOSEC) 20 mg DAILY PO 12/01/19 09:00 12/06/19 08:40 Omeprazole (PriLOSEC) 20 mg DAILY PO 11/30/19 09:00 11/30/19 16:54 DC 11/30/19 09:07 Pyridostigmine [place] (Mestinon) 90 mg QID PO 11/30/19 09:00 11/30/19 17:21 DC 11/30/19 14:38 Pyridostigmine [place] (Mestinon) 90 mg QID PO 11/30/19 17:00 12/06/19 12:20 Senna (Senokot) 2 tab QHS PRN PO CONSTIPATION 11/30/19 16:30 12/03/19 21:43 Torsemide (Demadex) 20 mg DAILY PO 12/01/19 09:00 12/06/19 08:42 Torsemide (Demadex) 20 mg DAILY PO 11/30/19 09:00 11/30/19 16:53 DC 11/30/19 09:08 Venlafaxine HCl (Effexor Xr) 225 mg DAILY PO 12/01/19 09:00 12/06/19 08:40 Venlafaxine HCl (Effexor Xr) 225 mg DAILY PO 11/30/19 09:00 11/30/19 16:53 DC 11/30/19 09:08 Venlafaxine HCl (Effexor) 225 mg DAILY PO 11/30/19 09:00 11/30/19 07:50 DC Vitamin D (Vitamin D) 5,000 units DAILY PO 11/30/19 09:00 12/06/19 08:40 Zolpidem Tartrate (Ambien) 10 mg QHSP PRN PO INSOMNIA 11/30/19 16:30 12/05/19 21:27 Allergies Coded Allergies: amitriptyline (Verified Allergy, Severe, SWELLING, 11/29/19) Grass (Verified Allergy, Mild, ITCHY EYES,NOSE, 11/29/19) TAPE (Verified Allergy, Mild, RASH/BLISTER, 11/29/19) TREES (Verified Allergy, Mild, ITCHY EYES,NOSE, 11/29/19) adhesive (Verified Allergy, Unknown, 11/29/19) divalproex sodium (Verified Allergy, Unknown, 11/29/19) minocycline (Verified Allergy, Unknown, 11/29/19) mold (Verified Allergy, Unknown, 11/29/19) tetracycline (Verified Allergy, Unknown, 11/29/19) bupropion (Verified Adverse Reaction, Intermediate, ESOPHAGEAL SPASMS, 11/29/19) banana (Verified Adverse Reaction, Mild, VOMITING, 11/29/19) benztropine (Verified Adverse Reaction, Mild, BLURRED VISION, 11/29/19) clindamycin (Verified Adverse Reaction, Mild, HEART BURN, 11/29/19) gabapentin (Verified Adverse Reaction, Mild, extreme weakness, 11/29/19) metaxalone (Verified Adverse Reaction, Mild, itching, 11/29/19) pregabalin (Verified Adverse Reaction, Mild, EDEMA, 11/29/19) sulfamethoxazole (Verified Adverse Reaction, Mild, DIARRHEA, 11/29/19) tizanidine (Verified Adverse Reaction, Mild, ITCHING, 11/29/19) trazodone (Verified Adverse Reaction, Mild, EDEMA, 11/29/19) trimethoprim (Verified Adverse Reaction, Mild, DIARRHEA, 11/29/19) vilazodone (Verified Adverse Reaction, Mild, MOOD CHANGES, 11/29/19) cyclobenzaprine (Verified Adverse Reaction, Unknown, IRRITABILITY, 11/29/19) valproic acid (Unverified Adverse Reaction, Unknown, DOES NOT METABOLIZE, 11/29/19) GEORGE DAWN NP Dec 06, 2019 15:04
[2019-12-06] MEDS: hydrOXYzine 50 MG TAB PO SCH ×2 (15:44→21:48)
[2019-12-06 16:20] VITALS: BP 128/86
[2019-12-06] MEDS: cloZAPine 100 MG TAB (S0136) PO SCH (21:47)
[2019-12-06] MEDS: MIRTAZAPINE 15 MG TAB PO SCH (21:48)
[2019-12-06] MEDS: **NOTE PATIENT COMMENT** MISC XX SCH (21:49)
[2019-12-07 06:16] VITALS: BP 122/72
[2019-12-07] MEDS: NALTREXONE 50 MG TAB PO SCH (08:18)
[2019-12-07] MEDS: PILL CUTTER 1 EACH XX PRN ×3 (08:18→17:05)
[2019-12-07] MEDS: MYCOPHENOLATE MOFETIL 250 MG CAP (J7517) PO SCH ×3 (08:19→21:49)
[2019-12-07] MEDS: OMEGA-3 1000MG CAPSULE PO SCH (08:19)
[2019-12-07] MEDS: acetaZOLAMIDE 250 MG TAB PO SCH ×2 (08:19→21:49)
[2019-12-07] MEDS: VENLAFAXINE **XR** 75MG CAPSULE PO SCH (08:19)
[2019-12-07] MEDS: hydrOXYzine 50 MG TAB PO SCH ×3 (08:19→21:49)
[2019-12-07] MEDS: FLUoxetine 20 MG CAP PO SCH (08:19)
[2019-12-07] MEDS: ACYCLOVIR 200 MG CAPSULE PO SCH ×2 (08:19→21:49)
[2019-12-07] MEDS: DOCUSATE SODIUM 100 MG CAP PO SCH (08:20)
[2019-12-07] MEDS: FOLIC ACID 1 MG TAB PO SCH (08:20)
[2019-12-07] MEDS: PYRIDOSTIGMINE 60 MG TAB PO SCH ×4 (08:20→21:51)
[2019-12-07] MEDS: VITAMIN D 1,000 INTERNATIONAL UNITS TABLET PO SCH (08:20)
[2019-12-07] MEDS: OMEPRAZOLE 20 MG CAP PO SCH (08:20)
[2019-12-07] MEDS: BACLOFEN 10 MG TAB PO PRN ×3 (08:20→21:49)
[2019-12-07] MEDS: TORSEMIDE 20 MG TAB PO SCH (08:20)
[2019-12-07] MEDS: LIDOCAINE 5% (LIDODERM) PATCH TD SCH (08:21)
--- NOTE | 2019-12-07 10:33 | MHIPNPDOC ---
[facility] Progress Note Progress Note DATE OF SERVICE: 12/07/19 HISTORY: Patient is a 39 -year-old , Disabled, Domiciled , Female, who reports many situational stressors and long history of psychiatric illnesses. As per previous notes: "Patient reports increase in Depressive Symptoms due to situational stressors: 1) Patient has numerous medication conditions including diagnosis of Breast Cancer and finishing up last chemo treatment on Thursday. Also has Fibromyalgia, Myasthenia Gravis. Patient's has Muscular Dystrophy recently fell and broke his knee. He was in the hospital for several weeks and she helped him rehabilitate at home. But she reports feelings of being overwhelmed with housekeeping, cooking and taking care of the household. States that her anxiety and depression is debilitating because she wants to clean the house because when it is messy she gets anxious but the depression stops her from being motivated to do it." VITAL SIGNS: See below. NEW TEST RESULTS: CURRENT MEDICATIONS: See below. MENTAL STATUS EXAMINATION: Mitra is a 39 year old female with h/o previous admissions to [facility] and a h/o Depression and Anxiety, previous suicide attempts and multiple medical illnesses. She was dressed in hospital clothes, she was cooperative, . Her hair was very short due to chemo treatment. Eye contact is fleeting Speech: Spontaneous and fluid, normal in rate, tone and low volume Language skills intact Thought processes including: linear and coherent Thought content: Anxious and depressed thoughts but she denied SI/HI or thought delusions, she reports not cutting in 48 hours Abstract reasoning, and computation: fair Description of associations: not loose Description of abnormal or psychotic thoughts: She denies thought delusions, she denies T/A/V hallucinations Judgment: fair Insight: fair Orientation: x 3 Recent and remote memory: good Attention span and concentration: good Language: no abnormalities observed Fund of knowledge: average Mood: depressed and anxious Affect: congruent with mood/flat DIAGNOSES: 1. Major Depressive Disorder, Recurrent, Moderate 2. Anxiety Disorder ASSESSMENT: She states her depression is mild today, Reports moderate anxiety. Fleeting suicidal ideation. Has not attempted to cut herself in 48 hours/ Feels that the addition of Hydroxyzine is helping. She remains anxious reports that she is not as depressed but this is incongruent with her stated mood and affect MANAGEMENT PLAN: Continues all medications. Patient is reporting not stable for discharge stating that she feels anxious about it. TIME SPENT: 20 minutes. Vital Signs Vital Signs Date Time Temp Pulse Resp B/P (MAP) Pulse Ox O2 Delivery O2 Flow Rate FiO2 12/07/19 06:16 97.3 76 16 122/72 (89) 12/05/19 06:04 96 Room Air Current Medications Current Medications Medications (Trade) Dose Ordered Sig/Ben Route PRN Reason Start Time Stop Time Status Last Admin Dose Admin Acetaminophen (Tylenol Tab) 650 mg Q6HP PRN PO HEADACHE or DISCOMFORT 11/30/19 16:30 12/06/19 08:40 Acetazolamide (Diamox) 500 mg BID PO 11/30/19 09:00 11/30/19 09:03 DC Acetazolamide (Diamox) 500 mg BID PO 11/30/19 21:00 12/07/19 08:19 Acetazolamide (Diamox) 500 mg BID@0900,1700 PO 11/30/19 09:00 11/30/19 16:48 DC 11/30/19 09:31 Acyclovir (Zovirax) 400 mg BID PO 11/30/19 09:00 12/07/19 08:19 Al Hydrox/Mg Hydrox/Simethicone (Mylanta) 30 ml Q4HP PRN PO HEARTBURN/INDIGESTION 11/30/19 16:30 Baclofen (Lioresal) 10 mg TID PRN PO MUSCLE SPASMS 11/30/19 16:30 12/07/19 08:20 Clozapine (Clozaril) 100 mg QHS PO 11/30/19 21:00 11/30/19 16:50 DC Clozapine (Clozaril) 100 mg QHS PO 11/30/19 21:00 12/06/19 21:47 Docusate Sodium (Colace) 100 mg DAILY PO 12/01/19 09:00 12/07/19 08:20 Docusate Sodium (Colace) 100 mg DAILY PO 11/30/19 09:00 11/30/19 16:48 DC 11/30/19 09:07 Fish Oil ([place]-3 (1000mg)) 1 cap DAILY PO 12/01/19 09:00 12/07/19 08:19 Fish Oil ([place]-3 (1000mg)) 1 cap DAILY PO 11/30/19 09:00 11/30/19 16:55 DC 11/30/19 09:31 Fluoxetine HCl (PROzac) 20 mg DAILY PO 12/01/19 09:00 12/07/19 08:19 Fluoxetine HCl (PROzac) 20 mg DAILY PO 11/30/19 09:00 11/30/19 16:49 DC 11/30/19 09:06 Folic Acid (Folic Acid) 1 mg DAILY PO 12/01/19 09:00 12/07/19 08:20 Folic Acid (Folic Acid) 1 mg DAILY PO 11/30/19 09:00 11/30/19 16:51 DC 11/30/19 09:08 Home Med (Med Rec Complete!) ASDIRECTED XX 11/29/19 23:00 11/29/19 22:51 DC Hydroxyzine HCl (Atarax) 50 mg Q6HP PRN PO anxiety 12/02/19 09:00 12/06/19 14:20 DC 12/06/19 11:58 Hydroxyzine HCl (Atarax) 100 mg TID PO 12/06/19 16:00 12/07/19 08:19 Ibuprofen (Advil) 800 mg Q8HP PRN PO MODERATE PAIN (PS 5-7) 12/06/19 14:30 12/06/19 14:34 Lidocaine (Lidoderm Patch) 1 patch DAILY TD 12/03/19 09:00 12/07/19 08:21 Magnesium Hydroxide (Milk Of Magnesia) 30 ml DAILYPRN PRN PO CONSTIPATION 11/30/19 16:30 Mirtazapine (Remeron) 30 mg QHS PO 11/30/19 21:00 11/30/19 16:52 DC Mirtazapine (Remeron) 30 mg QHS PO 11/30/19 21:00 12/06/19 21:48 Miscellaneous (Unresolved Clarification Entry) SEE LABEL COMMENTS DAILY XX 12/04/19 09:00 12/04/19 09:43 DC Mycophenolate Mofetil (Cellcept) 1,000 mg TID PO 11/30/19 09:00 11/30/19 17:18 DC 11/30/19 09:33 Mycophenolate Mofetil (Cellcept) 1,000 mg TID PO 11/30/19 21:00 12/07/19 08:19 Naltrexone HCl (Revia) 50 mg DAILY PO 12/01/19 09:00 12/07/19 08:18 Naltrexone HCl (Revia) 50 mg DAILY PO 11/30/19 09:00 11/30/19 17:20 DC 11/30/19 09:31 Non-Formulary Medication ( See Comment Field Below ) REMOVE LIDODERM PATCH DAILY@21 XX 12/03/19 21:00 12/06/19 21:49 Omeprazole (PriLOSEC) 20 mg DAILY PO 12/01/19 09:00 12/07/19 08:20 Omeprazole (PriLOSEC) 20 mg DAILY PO 11/30/19 09:00 11/30/19 16:54 DC 11/30/19 09:07 Pyridostigmine [place] (Mestinon) 90 mg QID PO 11/30/19 09:00 11/30/19 17:21 DC 11/30/19 14:38 Pyridostigmine [place] (Mestinon) 90 mg QID PO 11/30/19 17:00 12/07/19 08:20 Senna (Senokot) 2 tab QHS PRN PO CONSTIPATION 11/30/19 16:30 12/03/19 21:43 Torsemide (Demadex) 20 mg DAILY PO 12/01/19 09:00 12/07/19 08:20 Torsemide (Demadex) 20 mg DAILY PO 11/30/19 09:00 11/30/19 16:53 DC 11/30/19 09:08 Venlafaxine HCl (Effexor Xr) 225 mg DAILY PO 12/01/19 09:00 12/07/19 08:19 Venlafaxine HCl (Effexor Xr) 225 mg DAILY PO 11/30/19 09:00 11/30/19 16:53 DC 11/30/19 09:08 Venlafaxine HCl (Effexor) 225 mg DAILY PO 11/30/19 09:00 11/30/19 07:50 DC Vitamin D (Vitamin D) 5,000 units DAILY PO 11/30/19 09:00 12/07/19 08:20 Zolpidem Tartrate (Ambien) 10 mg QHSP PRN PO INSOMNIA 11/30/19 16:30 12/05/19 21:27 Allergies Coded Allergies: amitriptyline (Verified Allergy, Severe, SWELLING, 11/29/19) Grass (Verified Allergy, Mild, ITCHY EYES,NOSE, 11/29/19) TAPE (Verified Allergy, Mild, RASH/BLISTER, 11/29/19) TREES (Verified Allergy, Mild, ITCHY EYES,NOSE, 11/29/19) adhesive (Verified Allergy, Unknown, 11/29/19) divalproex sodium (Verified Allergy, Unknown, 11/29/19) minocycline (Verified Allergy, Unknown, 11/29/19) mold (Verified Allergy, Unknown, 11/29/19) tetracycline (Verified Allergy, Unknown, 11/29/19) bupropion (Verified Adverse Reaction, Intermediate, ESOPHAGEAL SPASMS, 11/29/19) banana (Verified Adverse Reaction, Mild, VOMITING, 11/29/19) benztropine (Verified Adverse Reaction, Mild, BLURRED VISION, 11/29/19) clindamycin (Verified Adverse Reaction, Mild, HEART BURN, 11/29/19) gabapentin (Verified Adverse Reaction, Mild, extreme weakness, 11/29/19) metaxalone (Verified Adverse Reaction, Mild, itching, 11/29/19) pregabalin (Verified Adverse Reaction, Mild, EDEMA, 11/29/19) sulfamethoxazole (Verified Adverse Reaction, Mild, DIARRHEA, 11/29/19) tizanidine (Verified Adverse Reaction, Mild, ITCHING, 11/29/19) trazodone (Verified Adverse Reaction, Mild, EDEMA, 11/29/19) trimethoprim (Verified Adverse Reaction, Mild, DIARRHEA, 11/29/19) vilazodone (Verified Adverse Reaction, Mild, MOOD CHANGES, 11/29/19) cyclobenzaprine (Verified Adverse Reaction, Unknown, IRRITABILITY, 11/29/19) valproic acid (Unverified Adverse Reaction, Unknown, DOES NOT METABOLIZE, 11/29/19) GEORGE DAWN NP Dec 07, 2019 10:33
[2019-12-07] MEDS: ACETAMINOPHEN TAB 650MG DOSE (2X325MG) PO PRN (11:18)
[2019-12-07] MEDS: IBUPROFEN 800 MG TAB PO PRN (15:12)
[2019-12-07 16:15] VITALS: BP 123/81
[2019-12-07] MEDS: MIRTAZAPINE 15 MG TAB PO SCH (21:48)
[2019-12-07] MEDS: cloZAPine 100 MG TAB (S0136) PO SCH (21:49)
[2019-12-07] MEDS: **NOTE PATIENT COMMENT** MISC XX SCH (21:54)
[2019-12-08 06:35] VITALS: BP 138/70
[2019-12-08] MEDS: LIDOCAINE 5% (LIDODERM) PATCH TD SCH (08:28)
[2019-12-08] MEDS: FOLIC ACID 1 MG TAB PO SCH (08:32)
[2019-12-08] MEDS: VITAMIN D 1,000 INTERNATIONAL UNITS TABLET PO SCH (08:32)
[2019-12-08] MEDS: NALTREXONE 50 MG TAB PO SCH (08:32)
[2019-12-08] MEDS: BACLOFEN 10 MG TAB PO PRN ×2 (08:32→21:35)
[2019-12-08] MEDS: DOCUSATE SODIUM 100 MG CAP PO SCH (08:33)
[2019-12-08] MEDS: VENLAFAXINE **XR** 75MG CAPSULE PO SCH (08:33)
[2019-12-08] MEDS: hydrOXYzine 50 MG TAB PO SCH ×3 (08:33→21:35)
[2019-12-08] MEDS: TORSEMIDE 20 MG TAB PO SCH (08:33)
[2019-12-08] MEDS: FLUoxetine 20 MG CAP PO SCH (08:33)
[2019-12-08] MEDS: OMEPRAZOLE 20 MG CAP PO SCH (08:33)
[2019-12-08] MEDS: OMEGA-3 1000MG CAPSULE PO SCH (08:34)
[2019-12-08] MEDS: ACYCLOVIR 200 MG CAPSULE PO SCH ×2 (08:34→21:35)
[2019-12-08] MEDS: MYCOPHENOLATE MOFETIL 250 MG CAP (J7517) PO SCH ×3 (08:35→21:34)
[2019-12-08] MEDS: acetaZOLAMIDE 250 MG TAB PO SCH ×2 (08:36→21:35)
[2019-12-08] MEDS: PYRIDOSTIGMINE 60 MG TAB PO SCH ×4 (08:37→21:36)
[2019-12-08] MEDS: PILL CUTTER 1 EACH XX PRN ×2 (08:38→21:34)
[2019-12-08] MEDS: IBUPROFEN 800 MG TAB PO PRN ×2 (13:04→21:35)
--- NOTE | 2019-12-08 14:35 | MHIPNPDOC ---
[facility] Progress Note Progress Note DATE OF SERVICE: 12/08/19 HISTORY: Patient is a 39 -year-old , Disabled, Domiciled , Female, who reports many situational stressors and long history of psychiatric illnesses. As per previous notes: "Patient reports increase in Depressive Symptoms due to situational stressors: 1) Patient has numerous medication conditions including diagnosis of Breast Cancer and finishing up last chemo treatment on 11/29/19. Also has Fibromyalgia, Myasthenia Gravis. Patient's has Muscular Dystrophy recently fell and broke his knee. He was in the hospital for several weeks and she helped him rehabilitate at home. But she reports feelings of being overwhelmed with housekeeping, cooking and taking care of the household. States that her anxiety and depression is debilitating because she wants to clean the house because when it is messy she gets anxious but the depression stops her from being motivated to do it." VITAL SIGNS: See below. NEW TEST RESULTS: CURRENT MEDICATIONS: See below. MENTAL STATUS EXAMINATION: Mitra is a 39 year old female with h/o previous admissions to [facility] and a h/o Depression, previous suicide attempts and multiple medical illnesses. She was dressed in hospital clothes, she was cooperative, . Her hair was shaved. Speech: Spontaneous and fluent, normal in rate, tone and volume Language skills intact Thought processes including: linear and coherent Thought content: Reporting decreased anxiety and depression and she denied SI/HI or thought delusions Abstract reasoning, and computation: fair Description of associations: not loose Description of abnormal or psychotic thoughts: She denies thought delusions, she denies T/A/V hallucinations Judgment: good Insight: good Orientation: x 3 Recent and remote memory: good Attention span and concentration: good Language: no abnormalities observed Fund of knowledge: average Mood: euthymic Affect: reactive, smiling in the interview DIAGNOSES: 1. Major Depressive Disorder, Recurrent, Moderate 2. Anxiety Disorder ASSESSMENT: Reports sleep is good, sleeping well the last few nights Mood: I feel good, I was talking to dad and , felt happy and excited about going home. Continuing to feel better, not overwhelmed about going home, feels like a good thing" Anxiety: I had a little this morning when I got up, not as bad today, I find that I get more anxious before the Hydroxyzine. Suicidal thoughts: None in the last few days Patient observed to be brighter in mood and affect. She reports minimal depression and anxiety is in control. States that scheduled Hydroxyzine helped her. Reinforced finding coping activities to distract her, she states that she would like to take up some of her crafting hobbies again. Reports good communication with her spouse, feels that she is doing well enough to return home. She is requesting discharge tomorrow. MANAGEMENT PLAN: Discharge tomorrow TIME SPENT: 20 minutes. MANAGEMENT PLAN: . TIME SPENT: minutes. Vital Signs Vital Signs Date Time Temp Pulse Resp B/P (MAP) Pulse Ox O2 Delivery O2 Flow Rate FiO2 12/08/19 08:28 Room Air 12/08/19 06:35 97.9 81 16 138/70 (92) 96 Current Medications Current Medications Medications (Trade) Dose Ordered Sig/Ben Route PRN Reason Start Time Stop Time Status Last Admin Dose Admin Acetaminophen (Tylenol Tab) 650 mg Q6HP PRN PO HEADACHE or DISCOMFORT 11/30/19 16:30 12/07/19 11:18 Acetazolamide (Diamox) 500 mg BID PO 11/30/19 09:00 11/30/19 09:03 DC Acetazolamide (Diamox) 500 mg BID PO 11/30/19 21:00 12/08/19 08:36 Acetazolamide (Diamox) 500 mg BID@0900,1700 PO 11/30/19 09:00 11/30/19 16:48 DC 11/30/19 09:31 Acyclovir (Zovirax) 400 mg BID PO 11/30/19 09:00 12/08/19 08:34 Al Hydrox/Mg Hydrox/Simethicone (Mylanta) 30 ml Q4HP PRN PO HEARTBURN/INDIGESTION 11/30/19 16:30 Baclofen (Lioresal) 10 mg TID PRN PO MUSCLE SPASMS 11/30/19 16:30 12/08/19 08:32 Clozapine (Clozaril) 100 mg QHS PO 11/30/19 21:00 11/30/19 16:50 DC Clozapine (Clozaril) 100 mg QHS PO 11/30/19 21:00 12/07/19 21:49 Docusate Sodium (Colace) 100 mg DAILY PO 12/01/19 09:00 12/08/19 08:33 Docusate Sodium (Colace) 100 mg DAILY PO 11/30/19 09:00 11/30/19 16:48 DC 11/30/19 09:07 Fish Oil ([place]-3 (1000mg)) 1 cap DAILY PO 12/01/19 09:00 12/08/19 08:34 Fish Oil ([place]-3 (1000mg)) 1 cap DAILY PO 11/30/19 09:00 11/30/19 16:55 DC 11/30/19 09:31 Fluoxetine HCl (PROzac) 20 mg DAILY PO 12/01/19 09:00 12/08/19 08:33 Fluoxetine HCl (PROzac) 20 mg DAILY PO 11/30/19 09:00 11/30/19 16:49 DC 11/30/19 09:06 Folic Acid (Folic Acid) 1 mg DAILY PO 12/01/19 09:00 12/08/19 08:32 Folic Acid (Folic Acid) 1 mg DAILY PO 11/30/19 09:00 11/30/19 16:51 DC 11/30/19 09:08 Home Med (Med Rec Complete!) ASDIRECTED XX 11/29/19 23:00 11/29/19 22:51 DC Hydroxyzine HCl (Atarax) 50 mg Q6HP PRN PO anxiety 12/02/19 09:00 12/06/19 14:20 DC 12/06/19 11:58 Hydroxyzine HCl (Atarax) 100 mg TID PO 12/06/19 16:00 12/08/19 08:33 Ibuprofen (Advil) 800 mg Q8HP PRN PO MODERATE PAIN (PS 5-7) 12/06/19 14:30 12/08/19 13:04 Lidocaine (Lidoderm Patch) 1 patch DAILY TD 12/03/19 09:00 12/07/19 08:21 Magnesium Hydroxide (Milk Of Magnesia) 30 ml DAILYPRN PRN PO CONSTIPATION 11/30/19 16:30 Mirtazapine (Remeron) 30 mg QHS PO 11/30/19 21:00 11/30/19 16:52 DC Mirtazapine (Remeron) 30 mg QHS PO 11/30/19 21:00 12/07/19 21:48 Miscellaneous (Unresolved Clarification Entry) SEE LABEL COMMENTS DAILY XX 12/04/19 09:00 12/04/19 09:43 DC Mycophenolate Mofetil (Cellcept) 1,000 mg TID PO 11/30/19 09:00 11/30/19 17:18 DC 11/30/19 09:33 Mycophenolate Mofetil (Cellcept) 1,000 mg TID PO 11/30/19 21:00 12/08/19 08:35 Naltrexone HCl (Revia) 50 mg DAILY PO 12/01/19 09:00 12/08/19 08:32 Naltrexone HCl (Revia) 50 mg DAILY PO 11/30/19 09:00 11/30/19 17:20 DC 11/30/19 09:31 Non-Formulary Medication ( See Comment Field Below ) REMOVE LIDODERM PATCH DAILY@21 XX 12/03/19 21:00 12/07/19 21:54 Omeprazole (PriLOSEC) 20 mg DAILY PO 12/01/19 09:00 12/08/19 08:33 Omeprazole (PriLOSEC) 20 mg DAILY PO 11/30/19 09:00 11/30/19 16:54 DC 11/30/19 09:07 Pyridostigmine [place] (Mestinon) 90 mg QID PO 11/30/19 09:00 11/30/19 17:21 DC 11/30/19 14:38 Pyridostigmine [place] (Mestinon) 90 mg QID PO 11/30/19 17:00 12/08/19 13:06 Senna (Senokot) 2 tab QHS PRN PO CONSTIPATION 11/30/19 16:30 12/03/19 21:43 Torsemide (Demadex) 20 mg DAILY PO 12/01/19 09:00 12/08/19 08:33 Torsemide (Demadex) 20 mg DAILY PO 11/30/19 09:00 11/30/19 16:53 DC 11/30/19 09:08 Venlafaxine HCl (Effexor Xr) 225 mg DAILY PO 12/01/19 09:00 12/08/19 08:33 Venlafaxine HCl (Effexor Xr) 225 mg DAILY PO 11/30/19 09:00 11/30/19 16:53 DC 11/30/19 09:08 Venlafaxine HCl (Effexor) 225 mg DAILY PO 11/30/19 09:00 11/30/19 07:50 DC Vitamin D (Vitamin D) 5,000 units DAILY PO 11/30/19 09:00 12/08/19 08:32 Zolpidem Tartrate (Ambien) 10 mg QHSP PRN PO INSOMNIA 11/30/19 16:30 12/05/19 21:27 Allergies Coded Allergies: amitriptyline (Verified Allergy, Severe, SWELLING, 11/29/19) Grass (Verified Allergy, Mild, ITCHY EYES,NOSE, 11/29/19) TAPE (Verified Allergy, Mild, RASH/BLISTER, 11/29/19) TREES (Verified Allergy, Mild, ITCHY EYES,NOSE, 11/29/19) adhesive (Verified Allergy, Unknown, 11/29/19) divalproex sodium (Verified Allergy, Unknown, 11/29/19) minocycline (Verified Allergy, Unknown, 11/29/19) mold (Verified Allergy, Unknown, 11/29/19) tetracycline (Verified Allergy, Unknown, 11/29/19) bupropion (Verified Adverse Reaction, Intermediate, ESOPHAGEAL SPASMS, 11/29/19) banana (Verified Adverse Reaction, Mild, VOMITING, 11/29/19) benztropine (Verified Adverse Reaction, Mild, BLURRED VISION, 11/29/19) clindamycin (Verified Adverse Reaction, Mild, HEART BURN, 11/29/19) gabapentin (Verified Adverse Reaction, Mild, extreme weakness, 11/29/19) metaxalone (Verified Adverse Reaction, Mild, itching, 11/29/19) pregabalin (Verified Adverse Reaction, Mild, EDEMA, 11/29/19) sulfamethoxazole (Verified Adverse Reaction, Mild, DIARRHEA, 11/29/19) tizanidine (Verified Adverse Reaction, Mild, ITCHING, 11/29/19) trazodone (Verified Adverse Reaction, Mild, EDEMA, 11/29/19) trimethoprim (Verified Adverse Reaction, Mild, DIARRHEA, 11/29/19) vilazodone (Verified Adverse Reaction, Mild, MOOD CHANGES, 11/29/19) cyclobenzaprine (Verified Adverse Reaction, Unknown, IRRITABILITY, 11/29/19) valproic acid (Unverified Adverse Reaction, Unknown, DOES NOT METABOLIZE, 11/29/19) GEORGE DAWN NP Dec 08, 2019 14:35
[2019-12-08] MEDS: ACETAMINOPHEN TAB 650MG DOSE (2X325MG) PO PRN (16:31)
[2019-12-08 18:33] VITALS: BP 131/86
[2019-12-08] MEDS: **NOTE PATIENT COMMENT** MISC XX SCH (21:00)
[2019-12-08] MEDS: MIRTAZAPINE 15 MG TAB PO SCH (21:35)
[2019-12-08] MEDS: cloZAPine 100 MG TAB (S0136) PO SCH (21:35)
[2019-12-09 06:59] VITALS: BP 136/86
[2019-12-09] MEDS: PILL CUTTER 1 EACH XX PRN (08:37)
[2019-12-09] MEDS: VENLAFAXINE **XR** 75MG CAPSULE PO SCH (08:38)
[2019-12-09] MEDS: OMEGA-3 1000MG CAPSULE PO SCH (08:38)
[2019-12-09] MEDS: DOCUSATE SODIUM 100 MG CAP PO SCH (08:38)
[2019-12-09] MEDS: MYCOPHENOLATE MOFETIL 250 MG CAP (J7517) PO SCH (08:38)
[2019-12-09] MEDS: NALTREXONE 50 MG TAB PO SCH (08:38)
[2019-12-09] MEDS: VITAMIN D 1,000 INTERNATIONAL UNITS TABLET PO SCH (08:38)
[2019-12-09] MEDS: ACYCLOVIR 200 MG CAPSULE PO SCH (08:38)
[2019-12-09] MEDS: hydrOXYzine 50 MG TAB PO SCH (08:38)
[2019-12-09] MEDS: OMEPRAZOLE 20 MG CAP PO SCH (08:38)
[2019-12-09] MEDS: PYRIDOSTIGMINE 60 MG TAB PO SCH (08:38)
[2019-12-09] MEDS: FLUoxetine 20 MG CAP PO SCH (08:38)
[2019-12-09] MEDS: FOLIC ACID 1 MG TAB PO SCH (08:39)
[2019-12-09] MEDS: BACLOFEN 10 MG TAB PO PRN (08:39)
[2019-12-09] MEDS: TORSEMIDE 20 MG TAB PO SCH (08:39)
[2019-12-09] MEDS: ACETAMINOPHEN TAB 650MG DOSE (2X325MG) PO PRN (08:39)
[2019-12-09] MEDS: acetaZOLAMIDE 250 MG TAB PO SCH (08:40)
[2019-12-09] MEDS: LIDOCAINE 5% (LIDODERM) PATCH TD SCH (08:40)
[2019-12-09] MEDS ORDERED: REME30TA PO (09:32)
[2019-12-09] MEDS ORDERED: ACET250T2 PO (09:32)
[2019-12-09] MEDS ORDERED: VENL75CA2 PO (09:32)
[2019-12-09] MEDS ORDERED: HYDR50TA70 PO (09:32)
[2019-12-09] MEDS ORDERED: FLUO20CA22 PO (09:32)
[2019-12-09] MEDS: IBUPROFEN 800 MG TAB PO PRN (10:35)
--- NOTE | 2019-12-09 11:54 | MHDSPDOC ---
[facility] Discharge Summary Discharge Summary DATE OF ADMISSION: Nov 30, 2019 at 16:26 DATE OF DISCHARGE: December 09, 2019 11:40 DISCHARGE DIAGNOSES: 1. Major Depressive Disorder, Recurrent, Moderate 2. Anxiety Disorder 3. Borderline Personality Disorder REASON FOR ADMISSION: HISTORY: Patient is a 39 -year-old , Disabled, Domiciled , Female, who reports many ongoing situational stressors and long history of psychiatric illnesses. Patient reports increase in Depressive Symptoms due to situational stressors: 1) Patient has numerous medication conditions including diagnosis of Breast Cancer and finishing up last chemo treatment on Thursday11/29/19. Also has Fibromyalgia, Myasthenia Gravis. Patient's has Muscular Dystrophy recently fell and broke his knee. He was in the hospital for several weeks and she helped him rehabilitate at home. But she reports feelings of being overwhelmed with housekeeping, cooking and taking care of the household. States that her anxiety and depression is debilitating because she wants to clean the house because when it is messy she gets anxious but the depression stops her from being motivated to do it. She had been going to chemo treatments by herself, taking care of the household and their 13-year old son. When the returned home, she felt very anxious and had feelings of self-harm. Patient presents with numerous self-lacerations to her left forearm. CONSULTANTS INVOLVED: TREATMENT AND PROGRESS ON THE UNIT : See Medical H + P by Dr. Berger [facility]SE: Patient was afforded: 1) Individual and group therapy, 2) Psychopharmacological management, 3) Family therapy conducted by discharge pl anning department with patient and family for the purpose of education and discharge planning. DISCHARGE ASSESSMENT: The patient responded well to individual and group psychotherapy, milieu therapy and medication management. Patient had just finished chemotherapy treatment on Thursday prior to her admission. Due to her medical co-morbidities (Breast Cancer, Fibromyalgia and Myasthenia Gravis) and abnormal white blood cell levels, we had considered increasing her Clozapine but did not make any changes. She had reported that much of her thoughts were centered around anxiety. She is currently on Mirtazapine, Effexor and Fluoxetine. Due to the risk of Serotonin Toxicity, these were not changed. She was agreeable to Hydroxyzine and was given an as needed but she continued to have anxiety. This was changed to Hydroxyzine 100 mg three times daily and she felt that she had improved from this. During her admission, she was cooperative with milieu, medications and individual/group therapy. She identified several ways to alleviate her anxiety and states that she will incorporate these into her life. At time of discharge the patient is alert and fully oriented, Mood euthymic. Affect broad range. Patient denies suicidal/homicidal ideation, planning or intent. IQ is at baseline. Memory is intact and insight and judgement is good. She is welcome to return home and her feels that she is safe for return. MENTAL STATUS EXAMINATION ON DISCHARGE: Mitra is a 39 year old female with h/o previous admissions to [facility] and a h/o Depression, previous suicide attempts and multiple medical illnesses. She was dressed in hospital clothes, she was cooperative. Her hair was short, hygiene and grooming is well-kempt. She is not observed with psychomotor retardation or agitation. Makes good eye contact Speech: Spontaneous and fluent, normal in rate, tone and volume Language skills intact Thought processes including: linear and coherent Thought content: Anxious and depressed thoughts but she denied SI/HI or thought delusions Abstract reasoning, and computation: fair Description of associations: not loose Description of abnormal or psychotic thoughts: She denies thought delusions, she denies T/A/V hallucinations Judgment: good Insight: good Orientation: x 3 Recent and remote memory: good Attention span and concentration: good Language: no abnormalities observed Fund of knowledge: average and anxious Mood: euthymic Affect: reactive MEDICATIONS ON DISCHARGE: see Medication Reconciliation PLAN/FOLLOWUP ARRANGEMENTS: The patient is being discharged as he/she no longer poses a risk of harm towards himself or others. The patient will continue on her medications. All of her home medications were continued on discharge. She was given a prescription for Hydroxyzine 100 mg three times daily. She is following up with [facility]. The amount of time spent in the coordination of care for this patient was approximately 30 minutes. Vital Signs/I&Os Vital Signs Date Time Temp Pulse Resp B/P (MAP) Pulse Ox O2 Delivery O2 Flow Rate FiO2 12/09/19 06:59 97.4 78 18 136/86 (103) 99 Room Air Medications Scheduled Acetazolamide (Acetazolamide) 500 Mg Capsule.er, 500 MG PO BID, (Reported) Acyclovir (Acyclovir) 400 Mg Tab, 400 MG PO BID, (Reported) Cholecalciferol (Vitamin D3) (Vitamin D3) 125 Mcg (5000 Unit) Tab.rapdis, 5,000 UNITS PO DAILY, (Reported) Clozapine (Clozapine) 100 Mg Tablet, 100 MG PO QHS, (Reported) Docusate Sodium (Docusate Sodium) 100 Mg Capsule, 100 MG PO DAILY, (Reported) Fluoxetine Hcl (Fluoxetine HCl) 20 Mg Capsule, 20 MG PO DAILY, (Reported) Folic Acid (Folic Acid) 1 Mg Tab, 1 MG PO DAILY, (Reported) Meloxicam (Meloxicam) 15 Mg Tablet, 15 MG PO DAILY, (Reported) Mirtazapine (Remeron) 30 Mg Tablet, 30 MG PO QHS, (Reported) Mycophenolate Mofetil (Cellcept) 500 Mg Tab, 1,000 MG PO TID, (Reported) Naltrexone HCl (Naltrexone HCl) 50 Mg Tablet, 50 MG PO BID, (Reported) [place]-3 Fatty Acids/Fish Oil ([place] 3 1,000 mg Softgel) 1 Each Capsule, 1 CAP PO DAILY, (Reported) Omeprazole (Omeprazole) 20 Mg Capsule.dr, 20 MG PO DAILY, (Reported) Potassium Chloride (Potassium Chloride) 20 Meq Tablet.er, 20 MEQ PO DAILY, (Reported) Pyridostigmine [place] (Mestinon) 60 Mg Tab, 90 MG PO QID, (Reported) Tamoxifen Citrate (Tamoxifen Citrate) 20 Mg Tablet, 20 MG PO DAILY, (Reported) Torsemide (Torsemide) 20 Mg Tablet, 20 MG PO DAILY, (Reported) Venlafaxine HCl (Venlafaxine HCl ER) 75 Mg Cap.er.24h, 225 MG PO DAILY, (Repor staci) Zaleplon (Zaleplon) 10 Mg Capsule, 10 MG PO Q2D, (Reported) EVERY OTHER NIGHT Scheduled PRN Baclofen (Baclofen) 10 Mg Tablet, 10 MG PO TID PRN for MUSCLE SPASMS, (Reported) Hydroxyzine HCl (Hydroxyzine HCl) 50 Mg Tablet, 50 MG PO QID PRN for ANXIETY, (Reported) Sennosides (Senna) 8.6 Mg Tablet, 2 TAB PO QHS PRN for CONSTIPATION, (Reported) Allergies Coded Allergies: amitriptyline (Verified Allergy, Severe, SWELLING, 11/29/19) Grass (Verified Allergy, Mild, ITCHY EYES,NOSE, 11/29/19) TAPE (Verified Allergy, Mild, RASH/BLISTER, 11/29/19) TREES (Verified Allergy, Mild, ITCHY EYES,NOSE, 11/29/19) adhesive (Verified Allergy, Unknown, 11/29/19) divalproex sodium (Verified Allergy, Unknown, 11/29/19) minocycline (Verified Allergy, Unknown, 11/29/19) mold (Verified Allergy, Unknown, 11/29/19) tetracycline (Verified Allergy, Unknown, 11/29/19) bupropion (Verified Adverse Reaction, Intermediate, ESOPHAGEAL SPASMS, 11/29/19) banana (Verified Adverse Reaction, Mild, VOMITING, 11/29/19) benztropine (Verified Adverse Reaction, Mild, BLURRED VISION, 11/29/19) clindamycin (Verified Adverse Reaction, Mild, HEART BURN, 11/29/19) gabapentin (Verified Adverse Reaction, Mild, extreme weakness, 11/29/19) metaxalone (Verified Adverse Reaction, Mild, itching, 11/29/19) pregabalin (Verified Adverse Reaction, Mild, EDEMA, 11/29/19) sulfamethoxazole (Verified Adverse Reaction, Mild, DIARRHEA, 11/29/19) tizanidine (Verified Adverse Reaction, Mild, ITCHING, 11/29/19) trazodone (Verified Adverse Reaction, Mild, EDEMA, 11/29/19) trimethoprim (Verified Adverse Reaction, Mild, DIARRHEA, 11/29/19) vilazodone (Verified Adverse Reaction, Mild, MOOD CHANGES, 11/29/19) cyclobenzaprine (Verified Adverse Reaction, Unknown, IRRITABILITY, 11/29/19) valproic acid (Unverified Adverse Reaction, Unknown, DOES NOT METABOLIZE, 11/29/19) GEORGE DAWN NP Dec 09, 2019 11:54
[2019-12-21] MEDS ORDERED: TAMO20TA8 PO (14:39)
[2019-12-21] MEDS ORDERED: POTA1TAB14 PO (15:57)
[2020-01-10] MEDS ORDERED: REME30TA PO (21:32)
== END 2019-12-09 11:15 | disposition home or self-care (01) | DRG 751 ==
LOC: M ED 16:25 → M ED INP 11-30 16:26 → M PSY 11-30 17:00
PROVIDERS: ADMIT Psychiatry & Neurology Addiction Medicine; ATTEND Psychiatry & Neurology Psychiatry
DX: F33.1 Major depressive disorder, recurrent, moderate (principal); G70.00 Myasthenia gravis without (acute) exacerbation; C50.912 Malignant neoplasm of unspecified site of left female breast; F41.9 Anxiety disorder, unspecified; M79.7 Fibromyalgia; Z79.899 Other long term (current) drug therapy; Z88.1 Allergy status to other antibiotic agents; Z88.2 Allergy status to sulfonamides; Z92.21 Personal history of antineoplastic chemotherapy; Z88.8 Allergy status to other drugs, medicaments and biological substances; Z91.048 Other nonmedicinal substance allergy status; Z81.8 Family history of other mental and behavioral disorders; Z63.79 Other stressful life events affecting family and household; Z87.891 Personal history of nicotine dependence; Z63.6 Dependent relative needing care at home

== ENCOUNTER → 2019-12-14 | Outpatient (REF) | payer MEDICAID ==
[~2019-12-14] MED LIST changes: +ACET50CA PO; +FLUO20CA20 PO; +FLUO20CA22 PO; +HYDR50TA70 PO; +MELO15TA28; +OMEG100011 PO; +POTA1TAB14 PO; +PROZ20CA11 PO; +REME30TA PO; +SENN8.6T28 PO; +TAMO20TA8 PO
[2019-12-14 14:03] LABS: BILIRUBIN,TOTAL 0.2 MG/DL (0.2-1.0); CALCIUM LEVEL 8.8 MG/DL (8.5-10.1); CREATININE FOR GFR 1.11 MG/DL (0.55-1.30); POTASSIUM SERUM 3.4 MEQ/L (3.5-5.1)
== END ==
LOC: M SFHCADAM 13:02
PROVIDERS: ATTEND Family Medicine
DX: E87.6 Hypokalemia (principal)

== ENCOUNTER 2020-01-09 08:54 | Inpatient (IN) | payer MEDICAID, OTHER ==
[~2020-01-09] VITALS: Ht 165.1 cm; Wt 100.0 kg
[~2020-01-09 08:54] MED LIST changes: -ACET50CA PO; -CLIN300C5; +CLIN300C6; -FLUO20CA20 PO; -MELO15TA28; +MIRT-60 PO; +MIRT-62 PO; -REME15TA PO; -REME30TA PO
[2020-01-09] MEDS ORDERED: MELO15TA28 (09:13)
[2020-01-09] MEDS ORDERED: HYDR50TA70 PO (09:13)
[2020-01-09] MEDS ORDERED: LIDOCAINE W/EPINEPHRINE 1% 20ML VIAL SC ONE (09:30)
[2020-01-09] MEDS ORDERED: BOOSTRIX/ADACEL VACCINE (DIPHTH/PERTUSS/ACELL/TETANUS) 0.5ML SYR IM ONE (09:30)
[2020-01-09 11:04] LABS: AMPHETAMINES LEVEL URINE NEGATIVE (NEGATIVE); BARBITURATES URINE NEGATIVE (NEGATIVE); BENZODIAZEPINES URINE NEGATIVE (NEGATIVE); CANNABINOIDS URINE NEGATIVE (NEGATIVE); COCAINE METABOLITE URINE NEGATIVE (NEGATIVE); METHADONE URINE NEGATIVE (NEGATIVE); OPIATES URINE NEGATIVE (NEGATIVE); PHENCYCLIDINE URINE NEGATIVE (NEGATIVE)
[2020-01-09 11:35] LABS: HEMATOCRIT 38.4 % (36.0-47.0); MEAN CORPUSCULAR HEMOGLOBIN 27.9 pg (27.0-33.0); MEAN CORPUSCULAR HGB CONC 31.3 g/dl (32.0-36.5); MEAN CORPUSCULAR VOLUME 89.3 fl (80.0-96.0); PLATELET COUNT, AUTOMATED 216 10^3/uL (150-450); WHITE BLOOD COUNT 5.5 10^3/uL (4.0-10.0)
[2020-01-09 12:07] LABS: HCG, SERUM QUALITATIVE NEGATIVE (NEGATIVE)
[2020-01-09 12:11] LABS: ACETAMINOPHEN LEVEL < 2.0 UG/ML (10.0-30.0); ALBUMIN 3.6 GM/DL (3.2-5.2); ALT/SGPT 51 U/L (12-78); BILIRUBIN,DIRECT < 0.1 MG/DL (0.0-0.2); BILIRUBIN,TOTAL 0.3 MG/DL (0.2-1.0); BLOOD UREA NITROGEN 12 MG/DL (7-18); CALCIUM LEVEL 9.3 MG/DL (8.5-10.1); CARBON DIOXIDE LEVEL 30 MEQ/L (21-32); CHLORIDE LEVEL 108 MEQ/L (98-107); CREATININE FOR GFR 0.96 MG/DL (0.55-1.30); ETHYL ALCOHOL (ETHANOL) < 0.003 % (0.000-0.010); GLOMERULAR FILTRATION RATE > 60.0 (>58); GLUCOSE, FASTING 95 MG/DL (70-100); POTASSIUM SERUM 4.5 MEQ/L (3.5-5.1); SALICYLATE LEVEL < 1.7 MG/DL (5.0-30.0); SODIUM LEVEL 142 MEQ/L (136-145); THYROID STIMULATING HORMONE 0.584 uIU/ML (0.358-3.740); TOTAL PROTEIN 6.7 GM/DL (6.4-8.2)
[2020-01-09] MEDS ORDERED: cloZAPine 100 MG TAB (S0136) PO ONE (20:15)
[2020-01-09] MEDS ORDERED: MELOXICAM (MOBIC) 7.5 MG TAB PO ONE (20:15)
[2020-01-09] MEDS ORDERED: hydrOXYzine 50 MG TAB PO ONE (20:15)
[2020-01-09] MEDS ORDERED: BACLOFEN 10 MG TAB PO ONE (20:15)
[2020-01-09] MEDS ORDERED: acetaZOLAMIDE 250 MG TAB PO ONE ×2 (20:15→21:15)
[2020-01-09] MEDS ORDERED: PYRIDOSTIGMINE 60 MG TAB PO ONE (20:15)
[2020-01-09] MEDS ORDERED: NALTREXONE 50 MG TAB PO ONE (20:15)
[2020-01-09] MEDS ORDERED: MYCOPHENOLATE MOFETIL 250 MG CAP (J7517) PO ONE (20:15)
[2020-01-09] MEDS ORDERED: ACYCLOVIR 200 MG CAPSULE PO ONE (20:15)
[2020-01-09] MEDS ORDERED: MIRTAZAPINE 15 MG TAB PO ONE (20:45)
[2020-01-10] MEDS ORDERED: hydrOXYzine 50 MG TAB PO ONE (07:45)
[2020-01-10] MEDS ORDERED: BACLOFEN 10 MG TAB PO ONE (07:45)
[2020-01-10] MEDS: PYRIDOSTIGMINE 60 MG TAB PO SCH ×3 (08:27→17:02)
[2020-01-10] MEDS: MYCOPHENOLATE MOFETIL 250 MG CAP (J7517) PO SCH ×2 (08:30→17:04)
[2020-01-10] MEDS ORDERED: FOLIC ACID 1 MG TAB PO SCH (09:00)
[2020-01-10] MEDS ORDERED: TORSEMIDE 20 MG TAB PO SCH (09:00)
[2020-01-10] MEDS ORDERED: FLUoxetine 20 MG CAP PO SCH (09:00)
[2020-01-10] MEDS ORDERED: VENLAFAXINE 37.5 MG TAB PO SCH (09:00)
[2020-01-10] MEDS ORDERED: VITAMIN D 1,000 INTERNATIONAL UNITS TABLET PO SCH (09:00)
[2020-01-10] MEDS ORDERED: POTASSIUM CHLORIDE 10 MEQ SR TABLET PO SCH (09:00)
[2020-01-10] MEDS ORDERED: acetaZOLAMIDE 250 MG TAB PO SCH (09:00)
[2020-01-10] MEDS ORDERED: ACYCLOVIR 200 MG CAPSULE PO SCH (09:00)
[2020-01-10] MEDS ORDERED: NALTREXONE 50 MG TAB PO SCH (09:00)
[2020-01-10] MEDS ORDERED: TAMOXIFEN CITRATE 10 MG TAB PO SCH (09:00)
[2020-01-10] MEDS ORDERED: OMEPRAZOLE 20 MG CAP PO SCH (09:00)
[2020-01-10] MEDS ORDERED: OMEGA-3 1000MG CAPSULE PO SCH (09:00)
[2020-01-10] MEDS: hydrOXYzine 50 MG TAB PO SCH ×2 (13:47→17:03)
[2020-01-10] MEDS ORDERED: PILL CUTTER 1 EACH XX ONE (16:58)
[2020-01-10] MEDS ORDERED: LORazepam 2 MG TAB PO PRN (20:30)
[2020-01-10] MEDS ORDERED: MOM 30ML SUSPENSION UDC PO PRN (20:30)
[2020-01-10] MEDS ORDERED: VENL75CA2 PO (21:32)
[2020-01-10] MEDS ORDERED: ACET50CA PO (21:32)
[2020-01-10] MEDS ORDERED: TAMO20TA8 PO (21:32)
[2020-01-10] MEDS ORDERED: MIRT-60 PO (21:32)
[2020-01-10] MEDS ORDERED: POTA1TAB14 PO (21:32)
[2020-01-10] MEDS ORDERED: FLUO20CA20 PO (21:32)
[2020-01-10] MEDS ORDERED: HYDR50TA70 PO (21:32)
[2020-01-10] MEDS ORDERED: MELO15TA28 PO (21:32)
[2020-01-10] MEDS ORDERED: PILL CUTTER 1 EACH XX PRN (22:15)
[2020-01-10 22:45] VITALS: BP 136/88
[2020-01-10] MEDS ORDERED: hydrOXYzine 50 MG TAB PO PRN (22:45)
[2020-01-10] MEDS ORDERED: SENNA 8.6 MG TAB (SENOKOT) PO PRN (22:45)
[2020-01-10 23:31] VITALS: BP 139/88
[2020-01-11] MEDS: MIRTAZAPINE 15 MG TAB PO SCH ×2 (03:34→22:15)
[2020-01-11] MEDS: acetaZOLAMIDE 500 MG ER CAP PO SCH ×3 (03:34→22:21)
[2020-01-11] MEDS: PYRIDOSTIGMINE 60 MG TAB PO SCH ×5 (03:34→22:18)
[2020-01-11] MEDS: MYCOPHENOLATE MOFETIL 250 MG CAP (J7517) PO SCH ×4 (03:34→22:17)
[2020-01-11] MEDS: NALTREXONE 50 MG TAB PO SCH ×3 (03:34→22:21)
[2020-01-11] MEDS: cloZAPine 100 MG TAB (S0136) PO SCH ×2 (03:34→22:19)
[2020-01-11] MEDS: THIAMINE 100 MG TAB PO SCH ×3 (03:34→22:44)
[2020-01-11] MEDS: ACYCLOVIR 200 MG CAPSULE PO SCH ×3 (03:35→22:20)
[2020-01-11 06:38] VITALS: BP 144/88
[2020-01-11] MEDS: FLUoxetine 20 MG CAP PO SCH (08:37)
[2020-01-11] MEDS: DOCUSATE SODIUM 100MG CAPSULE PO SCH (08:37)
[2020-01-11] MEDS: MULTIVITAMINS/MINERALS THERAP 1 TAB PO SCH (08:38)
[2020-01-11] MEDS: TORSEMIDE 20 MG TAB PO SCH (08:39)
[2020-01-11] MEDS: FOLIC ACID 1 MG TAB PO SCH (08:39)
[2020-01-11] MEDS: OMEPRAZOLE 20 MG CAP PO SCH (08:39)
[2020-01-11] MEDS: BACLOFEN 10 MG TAB PO PRN ×2 (08:40→18:46)
[2020-01-11] MEDS: POTASSIUM CHLORIDE 10 MEQ SR TABLET PO SCH (08:41)
[2020-01-11] MEDS: VENLAFAXINE **XR** 75MG CAPSULE PO SCH (08:42)
[2020-01-11] MEDS: TAMOXIFEN CITRATE 10 MG TAB PO SCH (08:43)
[2020-01-11] MEDS: OMEGA-3 1000MG CAPSULE PO SCH (08:45)
[2020-01-11] MEDS: MELOXICAM (MOBIC) 7.5 MG TAB PO SCH (08:47)
[2020-01-11] MEDS ORDERED: FOLIC ACID 1 MG TAB PO SCH (09:00)
[2020-01-11 09:30] VITALS: BP 144/88
--- NOTE | 2020-01-11 12:28 | HPEPDOC ---
[facility] Medical History & Physical Date of Admission Jan 10, 2020 Date of Service: Jan 11, 2020 Attending Physician: Siobhan Chanel MD History and Physical HISTORY OF PRESENT ILLNESS: The patient is a 39-year-old female with past medical history of neuralgia ophthalmicus, myasthenia gravis, fibromyalgia, chronic pain, depression, anxiety, borderline personality disorder, bipolar disorder who presented to [facility] emergency room after increased depression with suicidal thoughts. The patient states that she's had increased and uncontrolled depression, hopelessness, decreased appetite, decreased interaction with other people, poor sleep. She cut both anterior forearms with a sharp item multiple times. She states that cutting "makes her feel better". The patient follows with [facility] but admits to not accessing her resources regularly. She also follows with a therapist regularly. She denies fevers, chills, nausea or vomiting but admits to having increased shortness of breath, occasional wheezing and nonproductive cough along with postnasal drip over the past 2 weeks. REVIEW OF SYSTEMS: Neg except for what is mentioned above PAST MEDICAL HISTORY: 1. neuralgia ophthalmicus 2. myasthenia gravis 3. fibromyalgia 4. chronic pain 5. depression 6. anxiety 7. borderline personality disorder 8. bipolar disorder 9. major depressive disorder 10. gastroesophageal reflux disease 11. Hx of childhood asthma 12. Breast cancer s/p chemotherapy and radiation PAST SURGICAL HISTORY: 1. lumpectomy 2. partial hysterectomy 3. cholecystectomy 4. thymus removal 5. c. section 6. tubal ligation FAMILY HISTORY: Father: DM, HTN, depression, alive Mother: Healthy. Alive SOCIAL HISTORY: Smoked 1 pack per day for 15 years, quit 8 years ago. Drinks all garrison occasionally, smokes marijuana recreationally. Lives with her family in [place]. She is . She is a full code. ALLERGIES: Please see below. HOME MEDICATIONS: Please see below. PHYSICAL EXAMINATION: VS: Please see below. CONSTITUTIONAL: No acute distress, resting comfortably, AAO x 3 EYES: PERRLA, EOM intact HENT, MOUTH: Normocephalic, atraumatic, moist mucous membranes, NECK: SUPPLE, no JVD, no lymphadenopathy, no carotid bruit CV: Regular rate and rhythm, S1S2 normal, no murmurs/rubs/gallops RESPIRATORY: Clear to auscultation bilaterally, no rales/rhonchi/wheezes GI: obese abdomen, BS positive in 4 quadrants, soft, nontender, nondistended, no rebound or guarding, no organomegaly : Deferred MUSCULOSKELETAL: Normal ROM. No cyanosis, clubbing, swelling, joint deformity, extremity edema INTEGUMENTARY: Numerous long cuts on bilateral anterior forearms, scabbed and some are bleeding. Multiple tattoos. NEUROLOGIC: Cranial Nerves II-XII are intact, no focal deficits PSYCHIATRIC: Mood and affect are normal LABORATORY DATA: Please see below IMAGING: None ASSESSMENT: 39-year-old female with past medical history of neuralgia ophthalmicus, myasthenia gravis, fibromyalgia, chronic pain, depression, anxiety, borderline personality disorder, bipolar disorder who was admitted to [facility] for unspecified depressive disorder. PLAN: 1. Upper respiratory infection, likely viral. Recommend hydration throughout the day, added albuterol inhaler if needed. 2. Chronic pain with muscle spasming, fibromyalgia. Stable. The patient asked to make her baclofen scheduled but with psych possibly changing medications, I do not want this to make her too sleepy. Will keep home meds, baclofen as PRN. 3. Myasthenia gravis. Stable. F/u with Dr. Hooks office o/p. 4. Breast cancer s/p radiation and chemo. F/u with Dr. Chase as o/p. 5. Borderline personality d/o/ depression/anxiety with hx of SI. Plan per psychiatry team. DISPOSITION: Thank you kindly for the consult. Will sign off but if needed again please do not hesitate to call at any time. Vital Signs Vital Signs Date Time Temp Pulse Resp B/P (MAP) Pulse Ox O2 Delivery O2 Flow Rate FiO2 01/11/20 09:30 89 144/88 01/11/20 06:38 97.2 16 01/10/20 22:45 96 Room Air Home Medications Scheduled Acetazolamide (Acetazolamide) 500 Mg Capsule.er, 500 MG PO BID Acyclovir (Acyclovir) 400 Mg Tab, 400 MG PO BID Cholecalciferol (Vitamin D3) (Vitamin D3) 125 Mcg (5000 Unit) Tab.rapdis, 5,000 UNITS PO DAILY Clozapine (Clozapine) 100 Mg Tablet, 100 MG PO QHS Docusate Sodium (Docusate Sodium) 100 Mg Capsule, 100 MG PO DAILY Fluoxetine Hcl (Fluoxetine HCl) 20 Mg Capsule, 20 MG PO DAILY Folic Acid (Folic Acid) 1 Mg Tab, 1 MG PO DAILY Meloxicam (Meloxicam) 15 Mg Tablet, 15 MG PO DAILY Mirtazapine (Remeron) 30 Mg Tablet, 30 MG PO QHS Mycophenolate Mofetil (Cellcept) 500 Mg Tab, 1,000 MG PO TID Naltrexone HCl (Naltrexone HCl) 50 Mg Tablet, 50 MG PO BID [place]-3 Fatty Acids/Fish Oil ([place] 3 1,000 mg Softgel) 1 Each Capsule, 1 CAP PO DAILY Omeprazole (Omeprazole) 20 Mg Capsule.dr, 20 MG PO DAILY Potassium Chloride (Potassium Chloride) 20 Meq Tablet.er, 20 MEQ PO DAILY Pyridostigmine [place] (Mestinon) 60 Mg Tab, 90 MG PO QID Tamoxifen Citrate (Tamoxifen Citrate) 20 Mg Tablet, 20 MG PO DAILY Torsemide (Torsemide) 20 Mg Tablet, 20 MG PO DAILY Venlafaxine HCl (Venlafaxine HCl ER) 75 Mg Cap.er.24h, 225 MG PO DAILY Zaleplon (Zaleplon) 10 Mg Capsule, 10 MG PO Q2D EVERY OTHER NIGHT Scheduled PRN Baclofen (Baclofen) 10 Mg Tablet, 10 MG PO TID PRN for MUSCLE SPASMS Hydroxyzine HCl (Hydroxyzine HCl) 50 Mg Tablet, 50 MG PO QID PRN for ANXIETY Sennosides (Senna) 8.6 Mg Tablet, 2 TAB PO QHS PRN for CONSTIPATION Allergies Coded Allergies: amitriptyline (Verified Allergy, Severe, SWELLING, 11/29/19) Grass (Verified Allergy, Mild, ITCHY EYES,NOSE, 11/29/19) TAPE (Verified Allergy, Mild, RASH/BLISTER, 11/29/19) TREES (Verified Allergy, Mild, ITCHY EYES,NOSE, 11/29/19) adhesive (Verified Allergy, Unknown, 11/29/19) divalproex sodium (Verified Allergy, Unknown, 11/29/19) minocycline (Verified Allergy, Unknown, 11/29/19) mold (Verified Allergy, Unknown, 11/29/19) tetracycline (Verified Allergy, Unknown, 11/29/19) bupropion (Verified Adverse Reaction, Intermediate, ESOPHAGEAL SPASMS, 11/29/19) banana (Verified Adverse Reaction, Mild, VOMITING, 11/29/19) benztropine (Verified Adverse Reaction, Mild, BLURRED VISION, 11/29/19) clindamycin (Verified Adverse Reaction, Mild, HEART BURN, 11/29/19) gabapentin (Verified Adverse Reaction, Mild, extreme weakness, 11/29/19) metaxalone (Verified Adverse Reaction, Mild, itching, 11/29/19) pregabalin (Verified Adverse Reaction, Mild, EDEMA, 11/29/19) sulfamethoxazole (Verified Adverse Reaction, Mild, DIARRHEA, 11/29/19) tizanidine (Verified Adverse Reaction, Mild, ITCHING, 11/29/19) trazodone (Verified Adverse Reaction, Mild, EDEMA, 11/29/19) trimethoprim (Verified Adverse Reaction, Mild, DIARRHEA, 11/29/19) vilazodone (Verified Adverse Reaction, Mild, MOOD CHANGES, 11/29/19) cyclobenzaprine (Verified Adverse Reaction, Unknown, IRRITABILITY, 11/29/19) valproic acid (Unverified Adverse Reaction, Unknown, DOES NOT METABOLIZE, 11/29/19) A-FIB/CHADSVASC A-FIB History Current/History of A-Fib/PAF?: No Current PO Anticoag Therapy: No Age/Risk Factor Scoring CHADSVASC: CHADSVASC Response (Comments) Value Age Risk Factor Age < 65 years old 0 Gender Risk Factor Female 1 Hx of CHF No 0 Hx of HTN No 0 Hx of Stroke/TIA/or VTE No 0 Hx of Diabetes No 0 Hx of Vascular Disease No 0 Total 1 Treatment Treatment ordered: NONE Other anticoagulant ordered: None Siobhan Chanel MD Jan 11, 2020 12:28
[2020-01-11] MEDS: hydrOXYzine 50 MG TAB PO SCH ×3 (12:47→22:19)
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
[2020-01-11] MEDS: OLANZapine ORAL DISINTEGRATING TAB 5MG PO PRN (16:56)
[2020-01-11] MEDS: BACITRACIN OINTMENT 30GM TUBE TOP SCH (22:13)
[2020-01-12 07:28] VITALS: BP 129/87
[2020-01-12] MEDS: OLANZapine ORAL DISINTEGRATING TAB 5MG PO PRN ×2 (07:53→12:22)
[2020-01-12] MEDS: ACYCLOVIR 200 MG CAPSULE PO SCH ×2 (08:25→21:43)
[2020-01-12] MEDS: acetaZOLAMIDE 500 MG ER CAP PO SCH ×2 (08:25→21:42)
[2020-01-12] MEDS: OMEGA-3 1000MG CAPSULE PO SCH (08:26)
[2020-01-12] MEDS: TORSEMIDE 20 MG TAB PO SCH (08:28)
[2020-01-12] MEDS: TAMOXIFEN CITRATE 10 MG TAB PO SCH (08:29)
[2020-01-12] MEDS: MELOXICAM (MOBIC) 7.5 MG TAB PO SCH (08:30)
[2020-01-12] MEDS: MULTIVITAMINS/MINERALS THERAP 1 TAB PO SCH (08:31)
[2020-01-12] MEDS: THIAMINE 100 MG TAB PO SCH ×2 (08:31→21:41)
[2020-01-12] MEDS: hydrOXYzine 50 MG TAB PO SCH ×4 (08:31→21:41)
[2020-01-12] MEDS: NALTREXONE 50 MG TAB PO SCH ×2 (08:31→21:42)
[2020-01-12] MEDS: MYCOPHENOLATE MOFETIL 250 MG CAP (J7517) PO SCH ×3 (08:32→21:42)
[2020-01-12] MEDS: FLUoxetine 20 MG CAP PO SCH (08:33)
[2020-01-12] MEDS: DOCUSATE SODIUM 100MG CAPSULE PO SCH (08:33)
[2020-01-12] MEDS: FOLIC ACID 1 MG TAB PO SCH (08:33)
[2020-01-12] MEDS: POTASSIUM CHLORIDE 10 MEQ SR TABLET PO SCH (08:33)
[2020-01-12] MEDS: VENLAFAXINE **XR** 75MG CAPSULE PO SCH (08:34)
[2020-01-12] MEDS: PILL CUTTER 1 EACH XX PRN ×4 (08:34→21:41)
[2020-01-12] MEDS: PYRIDOSTIGMINE 60 MG TAB PO SCH ×4 (08:34→21:41)
[2020-01-12] MEDS: OMEPRAZOLE 20 MG CAP PO SCH (08:35)
[2020-01-12] MEDS: BACITRACIN OINTMENT 30GM TUBE TOP SCH ×3 (08:36→21:42)
[2020-01-12] MEDS: BACLOFEN 10 MG TAB PO PRN ×2 (08:36→14:00)
--- NOTE | 2020-01-12 10:30 | MHIPNPDOC ---
[facility] Progress Note Progress Note DATE OF SERVICE: 01/12/20 Subjective HPI: The patient is met with, she reports that she is feeling still quite depressed, with difficulty motivating herself and sleeping. She reports that she still feels suicidal and is increasingly hopeless. Objective General: Well dressed with good hygiene Speech: Spontaneous and fluid Thought processes: Linear and logical Thought content: hopeless Abstract reasoning, and computation: Intact Description of associations: Intact Description of abnormal or psychotic thoughts: reports thoughts as above Judgment: fair Insight: fair Orientation: Alert and orientated 3 Recent and remote memory: Intact Attention span and concentration: Intact Fund of knowledge: Adequate Mood: "okay" Affect: dysthymic, constricted Assessment major depressive disorder, recurrent, severe borderline personality disorder Plan Increase Prozac to 30 mg daily, continue Clozaril as is and other medications Vital Signs Vital Signs Date Time Temp Pulse Resp B/P (MAP) Pulse Ox O2 Delivery O2 Flow Rate FiO2 01/12/20 07:28 96.7 84 16 129/87 (101) 16 Room Air Current Medications Current Medications Medications (Trade) Dose Ordered Sig/Ben Route PRN Reason Start Time Stop Time Status Last Admin Dose Admin Acetaminophen (Tylenol Tab) 650 mg Q6HP PRN PO HEADACHE or DISCOMFORT 01/10/20 20:30 Acetazolamide (Diamox Sequels) 500 mg BID PO 01/10/20 21:00 01/12/20 08:25 Acetazolamide (Diamox) 500 mg BID PO 01/10/20 09:00 01/10/20 22:33 DC 01/10/20 08:29 Acyclovir (Zovirax) 400 mg BID PO 01/10/20 09:00 01/10/20 22:33 DC 01/10/20 08:22 Acyclovir (Zovirax) 400 mg BID PO 01/10/20 21:00 01/12/20 08:25 Al Hydrox/Mg Hydrox/Simethicone (Mylanta) 30 ml Q4HP PRN PO HEARTBURN/INDIGESTION 01/10/20 20:30 Albuterol Sulfate (Proventil, Ventolin Hfa) 2 puff Q2HP PRN INH SHORTNESS OF BREATH 01/11/20 12:15 Bacitracin (Bacitracin Oint) apply to left arm lacerations TID TOP 01/11/20 21:00 01/12/20 08:36 Baclofen (Lioresal) 10 mg TIDP PRN PO MUSCLE SPASMS 01/10/20 22:45 01/12/20 08:36 Clozapine (Clozaril) 100 mg QHS PO 01/10/20 21:00 01/11/20 22:19 Docusate Sodium (Colace) 100 mg DAILY PO 01/11/20 09:00 01/12/20 08:33 Fish Oil ([place]-3 (1000mg)) 1 cap DAILY PO 01/10/20 09:00 01/10/20 22:33 DC 01/10/20 08:29 Fish Oil ([place]-3 (1000mg)) 1 cap DAILY PO 01/11/20 09:00 01/12/20 08:26 Fluoxetine HCl (PROzac) 20 mg DAILY PO 01/10/20 09:00 01/10/20 22:33 DC 01/10/20 08:22 Fluoxetine HCl (PROzac) 20 mg DAILY PO 01/11/20 09:00 01/12/20 08:33 Folic Acid (Folic Acid) 1 mg DAILY PO 01/10/20 09:00 01/10/20 20:27 DC 01/10/20 08:23 Folic Acid (Folic Acid) 1 mg DAILY PO 01/11/20 09:00 01/12/20 08:33 Folic Acid (Folic Acid) 1 mg DAILY PO 01/11/20 09:00 Cancel Home Med (Med Rec Complete!) ASDIRECTED XX 01/10/20 21:45 01/10/20 21:35 DC Hydroxyzine HCl (Atarax) 50 mg QID PO 01/10/20 13:00 01/10/20 22:33 DC 01/10/20 17:03 Hydroxyzine HCl (Atarax) 50 mg QID PO 01/11/20 13:00 01/12/20 08:31 Hydroxyzine HCl (Atarax) 50 mg QIDP PRN PO ANXIETY 01/10/20 22:45 01/11/20 12:19 DC 01/11/20 08:37 Lorazepam (Ativan) 2 mg ASDIRECTED PRN PO SEE PROTOCOL 01/10/20 20:30 01/11/20 16:44 DC Magnesium Hydroxide (Milk Of Magnesia) 30 ml DAILYPRN PRN PO CONSTIPATION 01/10/20 20:30 Meloxicam (Mobic) 15 mg DAILY PO 01/11/20 09:00 01/12/20 08:30 Mirtazapine (Remeron) 30 mg QHS PO 01/10/20 21:00 01/11/20 22:15 Multivitamins (Theragram-M) 1 tab DAILY PO 01/11/20 09:00 01/12/20 08:31 Mycophenolate Mofetil (Cellcept) 500 mg TID PO 01/10/20 09:00 01/10/20 22:33 DC 01/10/20 17:04 Mycophenolate Mofetil (Cellcept) 1,000 mg TID PO 01/10/20 21:00 01/12/20 08:32 Naltrexone HCl (Revia) 50 mg BID PO 01/10/20 09:00 01/10/20 22:33 DC 01/10/20 08:28 Naltrexone HCl (Revia) 50 mg BID PO 01/10/20 21:00 01/12/20 08:31 Olanzapine (ZyPREXA ZYDIS) 5 mg Q4HP PRN PO ANXIETY/AGITATION 01/11/20 16:45 01/12/20 07:53 Omeprazole (PriLOSEC) 20 mg DAILY PO 01/10/20 09:00 01/10/20 22:33 DC 01/10/20 08:21 Omeprazole (PriLOSEC) 20 mg DAILY PO 01/11/20 09:00 01/12/20 08:35 Potassium Chloride (Micro-K Extencaps) 20 meq DAILY PO 01/10/20 09:00 01/10/20 22:33 DC 01/10/20 08:22 Potassium Chloride (Micro-K Extencaps) 20 meq DAILY PO 01/11/20 09:00 01/12/20 08:33 Pyridostigmine [place] (Mestinon) 90 mg QID PO 01/10/20 09:00 01/10/20 22:33 DC 01/10/20 17:02 Pyridostigmine [place] (Mestinon) 90 mg QID PO 01/10/20 21:00 01/12/20 08:34 Senna (Senokot) 2 tab QHSP PRN PO CONSTIPATION 01/10/20 22:45 Tamoxifen Citrate (Nolvadex) 20 mg DAILY PO 01/10/20 09:00 01/10/20 22:33 DC 01/10/20 08:31 Tamoxifen Citrate (Nolvadex) 20 mg DAILY PO 01/11/20 09:00 01/12/20 08:29 Thiamine HCl (Thiamine HCl) 100 mg BID PO 01/10/20 21:00 01/13/20 20:59 01/12/20 08:31 Torsemide (Demadex) 20 mg DAILY PO 01/10/20 09:00 01/10/20 22:33 DC 01/10/20 08:22 Torsemide (Demadex) 20 mg DAILY PO 01/11/20 09:00 01/12/20 08:28 Trazodone HCl (Desyrel) 50 mg QHSP PRN PO INSOMNIA 01/10/20 20:30 Venlafaxine HCl (Effexor Xr) 225 mg DAILY PO 01/11/20 09:00 01/12/20 08:34 Venlafaxine HCl (Effexor) 225 mg DAILY PO 01/10/20 09:00 01/10/20 22:33 DC 01/10/20 08:28 Vitamin D (Vitamin D) 5,000 units DAILY PO 01/10/20 09:00 01/10/20 22:33 DC 01/10/20 08:20 Allergies Coded Allergies: amitriptyline (Verified Allergy, Severe, SWELLING, 11/29/19) Grass (Verified Allergy, Mild, ITCHY EYES,NOSE, 11/29/19) TAPE (Verified Allergy, Mild, RASH/BLISTER, 11/29/19) TREES (Verified Allergy, Mild, ITCHY EYES,NOSE, 11/29/19) adhesive (Verified Allergy, Unknown, 11/29/19) divalproex sodium (Verified Allergy, Unknown, 11/29/19) minocycline (Verified Allergy, Unknown, 11/29/19) mold (Verified Allergy, Unknown, 11/29/19) tetracycline (Verified Allergy, Unknown, 11/29/19) bupropion (Verified Adverse Reaction, Intermediate, ESOPHAGEAL SPASMS, 11/29/19) banana (Verified Adverse Reaction, Mild, VOMITING, 11/29/19) benztropine (Verified Adverse Reaction, Mild, BLURRED VISION, 11/29/19) clindamycin (Verified Adverse Reaction, Mild, HEART BURN, 11/29/19) gabapentin (Verified Adverse Reaction, Mild, extreme weakness, 11/29/19) metaxalone (Verified Adverse Reaction, Mild, itching, 11/29/19) pregabalin (Verified Adverse Reaction, Mild, EDEMA, 11/29/19) sulfamethoxazole (Verified Adverse Reaction, Mild, DIARRHEA, 11/29/19) tizanidine (Verified Adverse Reaction, Mild, ITCHING, 11/29/19) trazodone (Verified Adverse Reaction, Mild, EDEMA, 11/29/19) trimethoprim (Verified Adverse Reaction, Mild, DIARRHEA, 11/29/19) vilazodone (Verified Adverse Reaction, Mild, MOOD CHANGES, 11/29/19) cyclobenzaprine (Verified Adverse Reaction, Unknown, IRRITABILITY, 11/29/19) valproic acid (Unverified Adverse Reaction, Unknown, DOES NOT METABOLIZE, 11/29/19) MANJULA ALBRIGHT DO Jan 12, 2020 10:30
[2020-01-12 19:15] VITALS: BP 124/64
[2020-01-12] MEDS: MIRTAZAPINE 15 MG TAB PO SCH (21:42)
[2020-01-12] MEDS: cloZAPine 100 MG TAB (S0136) PO SCH (21:42)
[2020-01-13 06:27] VITALS: BP 140/88
[2020-01-13] MEDS: OLANZapine ORAL DISINTEGRATING TAB 5MG PO PRN ×2 (08:02→12:30)
[2020-01-13] MEDS: MYCOPHENOLATE MOFETIL 250 MG CAP (J7517) PO SCH ×3 (08:02→21:40)
[2020-01-13] MEDS: OMEGA-3 1000MG CAPSULE PO SCH (08:03)
[2020-01-13] MEDS: OMEPRAZOLE 20 MG CAP PO SCH (08:03)
[2020-01-13] MEDS: THIAMINE 100 MG TAB PO SCH (08:03)
[2020-01-13] MEDS: ACYCLOVIR 200 MG CAPSULE PO SCH ×2 (08:03→21:41)
[2020-01-13] MEDS: MELOXICAM (MOBIC) 7.5 MG TAB PO SCH (08:04)
[2020-01-13] MEDS: POTASSIUM CHLORIDE 10 MEQ SR TABLET PO SCH (08:04)
[2020-01-13] MEDS: TORSEMIDE 20 MG TAB PO SCH (08:04)
[2020-01-13] MEDS: NALTREXONE 50 MG TAB PO SCH ×2 (08:04→21:40)
[2020-01-13] MEDS: PILL CUTTER 1 EACH XX PRN ×4 (08:05→21:39)
[2020-01-13] MEDS: PYRIDOSTIGMINE 60 MG TAB PO SCH ×4 (08:05→21:38)
[2020-01-13] MEDS: hydrOXYzine 50 MG TAB PO SCH ×4 (08:06→21:41)
[2020-01-13] MEDS: MULTIVITAMINS/MINERALS THERAP 1 TAB PO SCH (08:06)
[2020-01-13] MEDS: DOCUSATE SODIUM 100MG CAPSULE PO SCH (08:06)
[2020-01-13] MEDS: acetaZOLAMIDE 500 MG ER CAP PO SCH ×2 (08:06→21:41)
[2020-01-13] MEDS: VENLAFAXINE **XR** 75MG CAPSULE PO SCH (08:06)
[2020-01-13] MEDS: FOLIC ACID 1 MG TAB PO SCH (08:06)
[2020-01-13] MEDS: FLUoxetine 10 MG CAP PO SCH (08:06)
[2020-01-13] MEDS: TAMOXIFEN CITRATE 10 MG TAB PO SCH (08:08)
[2020-01-13] MEDS: BACITRACIN OINTMENT 30GM TUBE TOP SCH ×3 (08:09→21:40)
--- NOTE | 2020-01-13 12:31 | MHIPNPDOC ---
[facility] Progress Note Progress Note DATE OF SERVICE: 01/13/20 Subjective HPI: The patient is met with, she reports that she still depressed and hopeless with little change. She reports that she is still having suicidal thoughts and has little outlook for the future. Objective General: Well dressed with good hygiene Speech: Spontaneous and fluid Thought processes: Linear and logical Thought content: hopeless Abstract reasoning, and computation: Intact Description of associations: Intact Description of abnormal or psychotic thoughts: reports intermittent SI with no plan Judgment:. Fair Insight: fair Orientation: Alert and orientated 3 Recent and remote memory: Intact Attention span and concentration: Intact Fund of knowledge: Adequate Mood: "okay" Affect: dysthymic, constricted Assessment major depressive disorder, recurrent, severe borderline personality disorder Plan Continue Prozac, Clozaril and others at this time Vital Signs Vital Signs Date Time Temp Pulse Resp B/P (MAP) Pulse Ox O2 Delivery O2 Flow Rate FiO2 01/13/20 11:04 82 01/13/20 06:27 97.3 16 140/88 (105) Room Air 01/12/20 07:28 16 Current Medications Current Medications Medications (Trade) Dose Ordered Sig/Ben Route PRN Reason Start Time Stop Time Status Last Admin Dose Admin Acetaminophen (Tylenol Tab) 650 mg Q6HP PRN PO HEADACHE or DISCOMFORT 01/10/20 20:30 Acetazolamide (Diamox Sequels) 500 mg BID PO 01/10/20 21:00 01/13/20 08:06 Acetazolamide (Diamox) 500 mg BID PO 01/10/20 09:00 01/10/20 22:33 DC 01/10/20 08:29 Acyclovir (Zovirax) 400 mg BID PO 01/10/20 09:00 01/10/20 22:33 DC 01/10/20 08:22 Acyclovir (Zovirax) 400 mg BID PO 01/10/20 21:00 01/13/20 08:03 Al Hydrox/Mg Hydrox/Simethicone (Mylanta) 30 ml Q4HP PRN PO HEARTBURN/INDIGESTION 01/10/20 20:30 Albuterol Sulfate (Proventil, Ventolin Hfa) 2 puff Q2HP PRN INH SHORTNESS OF BREATH 01/11/20 12:15 Bacitracin (Bacitracin Oint) apply to left arm lacerations TID TOP 01/11/20 21:00 01/13/20 08:09 Baclofen (Lioresal) 10 mg TIDP PRN PO MUSCLE SPASMS 01/10/20 22:45 01/12/20 14:00 Clozapine (Clozaril) 100 mg QHS PO 01/10/20 21:00 01/12/20 21:42 Docusate Sodium (Colace) 100 mg DAILY PO 01/11/20 09:00 01/13/20 08:06 Fish Oil ([place]-3 (1000mg)) 1 cap DAILY PO 01/10/20 09:00 01/10/20 22:33 DC 01/10/20 08:29 Fish Oil ([place]-3 (1000mg)) 1 cap DAILY PO 01/11/20 09:00 01/13/20 08:03 Fluoxetine HCl (PROzac) 20 mg DAILY PO 01/10/20 09:00 01/10/20 22:33 DC 01/10/20 08:22 Fluoxetine HCl (PROzac) 20 mg DAILY PO 01/11/20 09:00 01/12/20 12:40 DC 01/12/20 08:33 Fluoxetine HCl (PROzac) 30 mg DAILY PO 01/13/20 09:00 01/13/20 08:06 Folic Acid (Folic Acid) 1 mg DAILY PO 01/10/20 09:00 01/10/20 20:27 DC 01/10/20 08:23 Folic Acid (Folic Acid) 1 mg DAILY PO 01/11/20 09:00 01/13/20 08:06 Folic Acid (Folic Acid) 1 mg DAILY PO 01/11/20 09:00 Cancel Home Med (Med Rec Complete!) ASDIRECTED XX 01/10/20 21:45 01/10/20 21:35 DC Hydroxyzine HCl (Atarax) 50 mg QID PO 01/10/20 13:00 01/10/20 22:33 DC 01/10/20 17:03 Hydroxyzine HCl (Atarax) 50 mg QID PO 01/11/20 13:00 01/13/20 08:06 Hydroxyzine HCl (Atarax) 50 mg QIDP PRN PO ANXIETY 01/10/20 22:45 01/11/20 12:19 DC 01/11/20 08:37 Lorazepam (Ativan) 2 mg ASDIRECTED PRN PO SEE PROTOCOL 01/10/20 20:30 01/11/20 16:44 DC Magnesium Hydroxide (Milk Of Magnesia) 30 ml DAILYPRN PRN PO CONSTIPATION 01/10/20 20:30 Meloxicam (Mobic) 15 mg DAILY PO 01/11/20 09:00 01/13/20 08:04 Mirtazapine (Remeron) 30 mg QHS PO 01/10/20 21:00 01/12/20 21:42 Multivitamins (Theragram-M) 1 tab DAILY PO 01/11/20 09:00 01/13/20 08:06 Mycophenolate Mofetil (Cellcept) 500 mg TID PO 01/10/20 09:00 01/10/20 22:33 DC 01/10/20 17:04 Mycophenolate Mofetil (Cellcept) 1,000 mg TID PO 01/10/20 21:00 01/13/20 08:02 Naltrexone HCl (Revia) 50 mg BID PO 01/10/20 09:00 01/10/20 22:33 DC 01/10/20 08:28 Naltrexone HCl (Revia) 50 mg BID PO 01/10/20 21:00 01/13/20 08:04 Olanzapine (ZyPREXA ZYDIS) 5 mg Q4HP PRN PO ANXIETY/AGITATION 01/11/20 16:45 01/13/20 08:02 Omeprazole (PriLOSEC) 20 mg DAILY PO 01/10/20 09:00 01/10/20 22:33 DC 01/10/20 08:21 Omeprazole (PriLOSEC) 20 mg DAILY PO 01/11/20 09:00 01/13/20 08:03 Potassium Chloride (Micro-K Extencaps) 20 meq DAILY PO 01/10/20 09:00 01/10/20 22:33 DC 01/10/20 08:22 Potassium Chloride (Micro-K Extencaps) 20 meq DAILY PO 01/11/20 09:00 01/13/20 08:04 Pyridostigmine [place] (Mestinon) 90 mg QID PO 01/10/20 09:00 01/10/20 22:33 DC 01/10/20 17:02 Pyridostigmine [place] ([place]) 90 mg QID PO 01/10/20 21:00 01/13/20 08:05 Senna (Senokot) 2 tab QHSP PRN PO CONSTIPATION 01/10/20 22:45 Tamoxifen Citrate (Nolvadex) 20 mg DAILY PO 01/10/20 09:00 01/10/20 22:33 DC 01/10/20 08:31 Tamoxifen Citrate (Nolvadex) 20 mg DAILY PO 01/11/20 09:00 01/13/20 08:08 Thiamine HCl (Thiamine HCl) 100 mg BID PO 01/10/20 21:00 01/13/20 20:59 01/13/20 08:03 Torsemide (Demadex) 20 mg DAILY PO 01/10/20 09:00 01/10/20 22:33 DC 01/10/20 08:22 Torsemide (Demadex) 20 mg DAILY PO 01/11/20 09:00 01/13/20 08:04 Trazodone HCl (Desyrel) 50 mg QHSP PRN PO INSOMNIA 01/10/20 20:30 Venlafaxine HCl (Effexor Xr) 225 mg DAILY PO 01/11/20 09:00 01/13/20 08:06 Venlafaxine HCl (Effexor) 225 mg DAILY PO 01/10/20 09:00 01/10/20 22:33 DC 01/10/20 08:28 Vitamin D (Vitamin D) 5,000 units DAILY PO 01/10/20 09:00 01/10/20 22:33 DC 01/10/20 08:20 Allergies Coded Allergies: amitriptyline (Verified Allergy, Severe, SWELLING, 11/29/19) Grass (Verified Allergy, Mild, ITCHY EYES,NOSE, 11/29/19) TAPE (Verified Allergy, Mild, RASH/BLISTER, 11/29/19) TREES (Verified Allergy, Mild, ITCHY EYES,NOSE, 11/29/19) adhesive (Verified Allergy, Unknown, 11/29/19) divalproex sodium (Verified Allergy, Unknown, 11/29/19) minocycline (Verified Allergy, Unknown, 11/29/19) mold (Verified Allergy, Unknown, 11/29/19) tetracycline (Verified Allergy, Unknown, 11/29/19) bupropion (Verified Adverse Reaction, Intermediate, ESOPHAGEAL SPASMS, 11/29/19) banana (Verified Adverse Reaction, Mild, VOMITING, 11/29/19) benztropine (Verified Adverse Reaction, Mild, BLURRED VISION, 11/29/19) clindamycin (Verified Adverse Reaction, Mild, HEART BURN, 11/29/19) gabapentin (Verified Adverse Reaction, Mild, extreme weakness, 11/29/19) metaxalone (Verified Adverse Reaction, Mild, itching, 11/29/19) pregabalin (Verified Adverse Reaction, Mild, EDEMA, 11/29/19) sulfamethoxazole (Verified Adverse Reaction, Mild, DIARRHEA, 11/29/19) tizanidine (Verified Adverse Reaction, Mild, ITCHING, 11/29/19) trazodone (Verified Adverse Reaction, Mild, EDEMA, 11/29/19) trimethoprim (Verified Adverse Reaction, Mild, DIARRHEA, 11/29/19) vilazodone (Verified Adverse Reaction, Mild, MOOD CHANGES, 11/29/19) cyclobenzaprine (Verified Adverse Reaction, Unknown, IRRITABILITY, 11/29/19) valproic acid (Unverified Adverse Reaction, Unknown, DOES NOT METABOLIZE, 11/29/19) MANJULA ALBRIGHT DO Jan 13, 2020 12:31
[2020-01-13] MEDS: BACLOFEN 10 MG TAB PO PRN ×2 (14:06→21:41)
[2020-01-13] MEDS: ALBUTEROL 90 MCG/ACT 8GM HFA INHALER INH PRN (14:08)
[2020-01-13 18:10] VITALS: BP 143/78
[2020-01-13] MEDS: cloZAPine 100 MG TAB (S0136) PO SCH (21:41)
[2020-01-13] MEDS: MIRTAZAPINE 15 MG TAB PO SCH (21:41)
[2020-01-14] MEDS: BACITRACIN OINTMENT 30GM TUBE TOP SCH ×3 (08:17→21:24)
[2020-01-14] MEDS: ALBUTEROL 90 MCG/ACT 8GM HFA INHALER INH PRN (08:17)
[2020-01-14] MEDS: VENLAFAXINE **XR** 75MG CAPSULE PO SCH (08:18)
[2020-01-14] MEDS: MELOXICAM (MOBIC) 7.5 MG TAB PO SCH (08:18)
[2020-01-14] MEDS: TORSEMIDE 20 MG TAB PO SCH (08:19)
[2020-01-14] MEDS: FOLIC ACID 1 MG TAB PO SCH (08:19)
[2020-01-14] MEDS: OMEPRAZOLE 20 MG CAP PO SCH (08:19)
[2020-01-14] MEDS: DOCUSATE SODIUM 100MG CAPSULE PO SCH (08:19)
[2020-01-14] MEDS: hydrOXYzine 50 MG TAB PO SCH ×4 (08:19→21:26)
[2020-01-14] MEDS: FLUoxetine 10 MG CAP PO SCH (08:19)
[2020-01-14] MEDS: MULTIVITAMINS/MINERALS THERAP 1 TAB PO SCH (08:20)
[2020-01-14] MEDS: POTASSIUM CHLORIDE 10 MEQ SR TABLET PO SCH (08:20)
[2020-01-14] MEDS: ACYCLOVIR 200 MG CAPSULE PO SCH ×2 (08:20→21:25)
[2020-01-14] MEDS: acetaZOLAMIDE 500 MG ER CAP PO SCH ×2 (08:21→21:25)
[2020-01-14] MEDS: PYRIDOSTIGMINE 60 MG TAB PO SCH ×4 (08:21→21:26)
[2020-01-14] MEDS: PILL CUTTER 1 EACH XX PRN ×2 (08:21→12:59)
[2020-01-14] MEDS: NALTREXONE 50 MG TAB PO SCH ×2 (08:21→21:26)
[2020-01-14] MEDS: OLANZapine ORAL DISINTEGRATING TAB 5MG PO PRN ×2 (08:22→12:59)
[2020-01-14] MEDS: MYCOPHENOLATE MOFETIL 250 MG CAP (J7517) PO SCH ×3 (08:22→21:29)
[2020-01-14] MEDS: TAMOXIFEN CITRATE 10 MG TAB PO SCH (08:22)
[2020-01-14] MEDS: BACLOFEN 10 MG TAB PO PRN ×2 (08:22→21:27)
[2020-01-14] MEDS: OMEGA-3 1000MG CAPSULE PO SCH (08:24)
[2020-01-14 17:38] VITALS: BP 142/80
[2020-01-14] MEDS: MIRTAZAPINE 15 MG TAB PO SCH (21:26)
[2020-01-14] MEDS: cloZAPine 100 MG TAB (S0136) PO SCH (21:26)
[2020-01-15 07:05] VITALS: BP 149/88
[2020-01-15] MEDS: BACITRACIN OINTMENT 30GM TUBE TOP SCH ×3 (09:00→23:12)
[2020-01-15] MEDS: ACYCLOVIR 200 MG CAPSULE PO SCH ×2 (09:42→21:41)
[2020-01-15] MEDS: FLUoxetine 10 MG CAP PO SCH (09:42)
[2020-01-15] MEDS: FOLIC ACID 1 MG TAB PO SCH (09:42)
[2020-01-15] MEDS: hydrOXYzine 50 MG TAB PO SCH ×4 (09:42→21:35)
[2020-01-15] MEDS: MULTIVITAMINS/MINERALS THERAP 1 TAB PO SCH (09:43)
[2020-01-15] MEDS: MELOXICAM (MOBIC) 7.5 MG TAB PO SCH (09:43)
[2020-01-15] MEDS: OMEPRAZOLE 20 MG CAP PO SCH (09:43)
[2020-01-15] MEDS: NALTREXONE 50 MG TAB PO SCH ×2 (09:43→21:36)
[2020-01-15] MEDS: DOCUSATE SODIUM 100MG CAPSULE PO SCH (09:43)
[2020-01-15] MEDS: acetaZOLAMIDE 500 MG ER CAP PO SCH ×2 (09:43→21:35)
[2020-01-15] MEDS: OMEGA-3 1000MG CAPSULE PO SCH (09:44)
[2020-01-15] MEDS: POTASSIUM CHLORIDE 10 MEQ SR TABLET PO SCH (09:44)
[2020-01-15] MEDS: MYCOPHENOLATE MOFETIL 250 MG CAP (J7517) PO SCH ×3 (09:45→21:35)
[2020-01-15] MEDS: BACLOFEN 10 MG TAB PO PRN ×2 (09:45→14:57)
[2020-01-15] MEDS: TORSEMIDE 20 MG TAB PO SCH (09:45)
[2020-01-15] MEDS: TAMOXIFEN CITRATE 10 MG TAB PO SCH (09:45)
[2020-01-15] MEDS: VENLAFAXINE **XR** 75MG CAPSULE PO SCH (09:46)
[2020-01-15] MEDS: PYRIDOSTIGMINE 60 MG TAB PO SCH ×4 (09:57→21:36)
[2020-01-15] MEDS: OLANZapine ORAL DISINTEGRATING TAB 5MG PO PRN (18:02)
[2020-01-15 18:28] VITALS: BP 159/105
[2020-01-15] MEDS: MIRTAZAPINE 15 MG TAB PO SCH (21:33)
[2020-01-15] MEDS: cloZAPine 100 MG TAB (S0136) PO SCH (21:37)
[2020-01-16 06:54] VITALS: BP 141/79
[2020-01-16] MEDS: TORSEMIDE 20 MG TAB PO SCH (08:47)
[2020-01-16] MEDS: MYCOPHENOLATE MOFETIL 250 MG CAP (J7517) PO SCH ×3 (08:48→22:00)
[2020-01-16] MEDS: TAMOXIFEN CITRATE 10 MG TAB PO SCH (08:48)
[2020-01-16] MEDS: OMEGA-3 1000MG CAPSULE PO SCH (08:49)
[2020-01-16] MEDS: VENLAFAXINE **XR** 75MG CAPSULE PO SCH (08:49)
[2020-01-16] MEDS: POTASSIUM CHLORIDE 10 MEQ SR TABLET PO SCH (08:49)
[2020-01-16] MEDS: MELOXICAM (MOBIC) 7.5 MG TAB PO SCH (08:49)
[2020-01-16] MEDS: FLUoxetine 10 MG CAP PO SCH (08:50)
[2020-01-16] MEDS: hydrOXYzine 50 MG TAB PO SCH ×4 (08:50→22:00)
[2020-01-16] MEDS: acetaZOLAMIDE 500 MG ER CAP PO SCH ×2 (08:50→22:00)
[2020-01-16] MEDS: OMEPRAZOLE 20 MG CAP PO SCH (08:50)
[2020-01-16] MEDS: MULTIVITAMINS/MINERALS THERAP 1 TAB PO SCH (08:50)
[2020-01-16] MEDS: PYRIDOSTIGMINE 60 MG TAB PO SCH ×4 (08:51→21:59)
[2020-01-16] MEDS: BACLOFEN 10 MG TAB PO PRN (08:51)
[2020-01-16] MEDS: DOCUSATE SODIUM 100MG CAPSULE PO SCH (08:51)
[2020-01-16] MEDS: FOLIC ACID 1 MG TAB PO SCH (08:51)
[2020-01-16] MEDS: ACETAMINOPHEN TAB 650MG DOSE (2X325MG) PO PRN (08:52)
[2020-01-16] MEDS: NALTREXONE 50 MG TAB PO SCH ×2 (08:52→22:01)
[2020-01-16] MEDS: ACYCLOVIR 200 MG CAPSULE PO SCH ×2 (08:53→21:59)
[2020-01-16] MEDS: BACITRACIN OINTMENT 30GM TUBE TOP SCH ×3 (08:53→22:01)
--- NOTE | 2020-01-16 09:47 | MHIPNPDOC ---
[facility] Progress Note Progress Note DATE OF SERVICE: 01/16/20 Subjective HPI: Mitra was met with today. She continues to reports that shes quite dysthymic, tired, and sad. She continues to feel hopeless and helpless with passive ideation. MEDICATIONS: She feels that the Baclofen, being PRN, makes it easy for her to forget taking the medicine and now that its scheduled, it helps her and claims that this might contribute to her mood variation and her low mood at this time. Objective Appearance: Fair hygiene. Mood: Constricted. Associations intact. Dysthymic. Thought Content: No evidence of delusions. Intermittent suicidal ideation unchanged from yesterday. No thoughts of self harm. No evidence of aggressive or homicidal ideation. Judgement: Poor to fair. Insight: Poor to fair. Assessment F33.40 Major depressive disorder, recurrent, in remission, unspecified F60.3 Borderline personality disorder Plan Schedule Baclofen, increased dose of Prozac to 40 mg, and will be mindful of interactions as she has multiple different medication. She may need long-term care and its unclear if Tamoxifen or other aspects are playing into her depression. However, its not unheard of at this time. Vital Signs Vital Signs Date Time Temp Pulse Resp B/P (MAP) Pulse Ox O2 Delivery O2 Flow Rate FiO2 01/16/20 09:16 Room Air 01/16/20 06:54 97.7 75 16 141/79 (99) 01/15/20 18:28 100 Current Medications Current Medications Medications (Trade) Dose Ordered Sig/Ben Route PRN Reason Start Time Stop Time Status Last Admin Dose Admin Acetaminophen (Tylenol Tab) 650 mg Q6HP PRN PO HEADACHE or DISCOMFORT 01/10/20 20:30 01/16/20 08:52 Acetazolamide (Diamox Sequels) 500 mg BID PO 01/10/20 21:00 01/16/20 08:50 Acetazolamide (Diamox) 500 mg BID PO 01/10/20 09:00 01/10/20 22:33 DC 01/10/20 08:29 Acyclovir (Zovirax) 400 mg BID PO 01/10/20 09:00 01/10/20 22:33 DC 01/10/20 08:22 Acyclovir (Zovirax) 400 mg BID PO 01/10/20 21:00 01/16/20 08:53 Al Hydrox/Mg Hydrox/Simethicone (Mylanta) 30 ml Q4HP PRN PO HEARTBURN/INDIGESTION 01/10/20 20:30 Albuterol Sulfate (Proventil, Ventolin Hfa) 2 puff Q2HP PRN INH SHORTNESS OF BREATH 01/11/20 12:15 01/14/20 08:17 Bacitracin (Bacitracin Oint) apply to left arm lacerations TID TOP 01/11/20 21:00 01/16/20 08:53 Baclofen (Lioresal) 10 mg TIDP PRN PO MUSCLE SPASMS 01/10/20 22:45 01/16/20 08:51 Clozapine (Clozaril) 100 mg QHS PO 01/10/20 21:00 01/15/20 21:37 Docusate Sodium (Colace) 100 mg DAILY PO 01/11/20 09:00 01/16/20 08:51 Fish Oil ([place]-3 (1000mg)) 1 cap DAILY PO 01/10/20 09:00 01/10/20 22:33 DC 01/10/20 08:29 Fish Oil ([place]-3 (1000mg)) 1 cap DAILY PO 01/11/20 09:00 01/16/20 08:49 Fluoxetine HCl (PROzac) 20 mg DAILY PO 01/10/20 09:00 01/10/20 22:33 DC 01/10/20 08:22 Fluoxetine HCl (PROzac) 20 mg DAILY PO 01/11/20 09:00 01/12/20 12:40 DC 01/12/20 08:33 Fluoxetine HCl (PROzac) 30 mg DAILY PO 01/13/20 09:00 01/16/20 08:50 Folic Acid (Folic Acid) 1 mg DAILY PO 01/10/20 09:00 01/10/20 20:27 DC 01/10/20 08:23 Folic Acid (Folic Acid) 1 mg DAILY PO 01/11/20 09:00 01/16/20 08:51 Folic Acid (Folic Acid) 1 mg DAILY PO 01/11/20 09:00 Cancel Home Med (Med Rec Complete!) ASDIRECTED XX 01/10/20 21:45 01/10/20 21:35 DC Hydroxyzine HCl (Atarax) 50 mg QID PO 01/10/20 13:00 01/10/20 22:33 DC 01/10/20 17:03 Hydroxyzine HCl (Atarax) 50 mg QID PO 01/11/20 13:00 01/16/20 08:50 Hydroxyzine HCl (Atarax) 50 mg QIDP PRN PO ANXIETY 01/10/20 22:45 01/11/20 12:19 DC 01/11/20 08:37 Lorazepam (Ativan) 2 mg ASDIRECTED PRN PO SEE PROTOCOL 01/10/20 20:30 01/11/20 16:44 DC Magnesium Hydroxide (Milk Of Magnesia) 30 ml DAILYPRN PRN PO CONSTIPATION 01/10/20 20:30 Meloxicam (Mobic) 15 mg DAILY PO 01/11/20 09:00 01/16/20 08:49 Mirtazapine (Remeron) 30 mg QHS PO 01/10/20 21:00 01/15/20 21:33 Miscellaneous (Unresolved Clarification Entry) SEE LABEL COMMENTS DAILY XX 01/15/20 09:00 01/15/20 11:17 DC Multivitamins (Theragram-M) 1 tab DAILY PO 01/11/20 09:00 01/16/20 08:50 Mycophenolate Mofetil (Cellcept) 500 mg TID PO 01/10/20 09:00 01/10/20 22:33 DC 01/10/20 17:04 Mycophenolate Mofetil (Cellcept) 1,000 mg TID PO 01/10/20 21:00 01/16/20 08:48 Naltrexone HCl (Revia) 50 mg BID PO 01/10/20 09:00 01/10/20 22:33 DC 01/10/20 08:28 Naltrexone HCl (Revia) 50 mg BID PO 01/10/20 21:00 01/16/20 08:52 Olanzapine (ZyPREXA ZYDIS) 5 mg Q4HP PRN PO ANXIETY/AGITATION 01/11/20 16:45 01/15/20 18:02 Omeprazole (PriLOSEC) 20 mg DAILY PO 01/10/20 09:00 01/10/20 22:33 DC 01/10/20 08:21 Omeprazole (PriLOSEC) 20 mg DAILY PO 01/11/20 09:00 01/16/20 08:50 Potassium Chloride (Micro-K Extencaps) 20 meq DAILY PO 01/10/20 09:00 01/10/20 22:33 DC 01/10/20 08:22 Potassium Chloride (Micro-K Extencaps) 20 meq DAILY PO 01/11/20 09:00 01/16/20 08:49 Pyridostigmine [place] (Mestin[place]) 90 mg QID PO 01/10/20 09:00 01/10/20 22:33 DC 01/10/20 17:02 Pyridostigmine [place] ([place]) 90 mg QID PO 01/10/20 21:00 01/16/20 08:51 Senna (Senokot) 2 tab QHSP PRN PO CONSTIPATION 01/10/20 22:45 Tamoxifen Citrate (Nolvadex) 20 mg DAILY PO 01/10/20 09:00 01/10/20 22:33 DC 01/10/20 08:31 Tamoxifen Citrate (Nolvadex) 20 mg DAILY PO 01/11/20 09:00 01/16/20 08:48 Thiamine HCl (Thiamine HCl) 100 mg BID PO 01/10/20 21:00 01/13/20 20:59 DC 01/13/20 08:03 Torsemide (Demadex) 20 mg DAILY PO 01/10/20 09:00 01/10/20 22:33 DC 01/10/20 08:22 Torsemide (Demadex) 20 mg DAILY PO 01/11/20 09:00 01/16/20 08:47 Trazodone HCl (Desyrel) 50 mg QHSP PRN PO INSOMNIA 01/10/20 20:30 Venlafaxine HCl (Effexor Xr) 225 mg DAILY PO 01/11/20 09:00 01/16/20 08:49 Venlafaxine HCl (Effexor) 225 mg DAILY PO 01/10/20 09:00 01/10/20 22:33 DC 01/10/20 08:28 Vitamin D (Vitamin D) 5,000 units DAILY PO 01/10/20 09:00 01/10/20 22:33 DC 01/10/20 08:20 Allergies Coded Allergies: amitriptyline (Verified Allergy, Severe, SWELLING, 11/29/19) Grass (Verified Allergy, Mild, ITCHY EYES,NOSE, 11/29/19) TAPE (Verified Allergy, Mild, RASH/BLISTER, 11/29/19) TREES (Verified Allergy, Mild, ITCHY EYES,NOSE, 11/29/19) adhesive (Verified Allergy, Unknown, 11/29/19) divalproex sodium (Verified Allergy, Unknown, 11/29/19) minocycline (Verified Allergy, Unknown, 11/29/19) mold (Verified Allergy, Unknown, 11/29/19) tetracycline (Verified Allergy, Unknown, 11/29/19) bupropion (Verified Adverse Reaction, Intermediate, ESOPHAGEAL SPASMS, 11/29/19) banana (Verified Adverse Reaction, Mild, VOMITING, 11/29/19) benztropine (Verified Adverse Reaction, Mild, BLURRED VISION, 11/29/19) clindamycin (Verified Adverse Reaction, Mild, HEART BURN, 11/29/19) gabapentin (Verified Adverse Reaction, Mild, extreme weakness, 11/29/19) metaxalone (Verified Adverse Reaction, Mild, itching, 11/29/19) pregabalin (Verified Adverse Reaction, Mild, EDEMA, 11/29/19) sulfamethoxazole (Verified Adverse Reaction, Mild, DIARRHEA, 11/29/19) tizanidine (Verified Adverse Reaction, Mild, ITCHING, 11/29/19) trazodone (Verified Adverse Reaction, Mild, EDEMA, 11/29/19) trimethoprim (Verified Adverse Reaction, Mild, DIARRHEA, 11/29/19) vilazodone (Verified Adverse Reaction, Mild, MOOD CHANGES, 11/29/19) cyclobenzaprine (Verified Adverse Reaction, Unknown, IRRITABILITY, 11/29/19) valproic acid (Unverified Adverse Reaction, Unknown, DOES NOT METABOLIZE, 11/29/19) MANJULA ALBRIGHT DO Jan 16, 2020 09:47
[2020-01-16] MEDS: ALBUTEROL 90 MCG/ACT 8GM HFA INHALER INH PRN (11:42)
--- NOTE | 2020-01-16 11:56 | MHIPN ---
DATE: 01/14/2020 VITAL SIGNS: Blood pressure 142/80, pulse 66, temperature 96.8. CHIEF COMPLAINT: Feels depressed. SUBJECTIVE: Seen for followup in the presence of staff. Says feels depressed, anxious, has some suicidal thoughts, but no plans, though somewhat vague on this. MENTAL STATUS EXAMINATION: Cooperative, coherent, has cut maynard on her arms, these appear to be old ones. Displays no agitation at present. Affect is restricted in range. Has suicidal thoughts, no firm plans. No homicidal ideas or intents currently. No evidence of any psychosis. Cognition grossly intact. Judgment is questionable as is insight. ASSESSMENT: Major depressive disorder, recurrent. Borderline personality disorder by history. PLAN: Continue current care, observations. Encourage participation in activities in the unit. She is to continue with Prozac at the current dose. Has been taking olanzapine as needed. MTDD
[2020-01-16] MEDS: PILL CUTTER 1 EACH XX PRN ×2 (12:47→17:03)
[2020-01-16] MEDS: BACLOFEN 10 MG TAB PO SCH ×2 (15:29→22:01)
[2020-01-16] MEDS: OLANZapine ORAL DISINTEGRATING TAB 5MG PO PRN ×2 (16:09→21:59)
[2020-01-16 16:54] VITALS: BP 121/77
[2020-01-16] MEDS: MIRTAZAPINE 15 MG TAB PO SCH (22:00)
[2020-01-16] MEDS: cloZAPine 100 MG TAB (S0136) PO SCH (22:01)
[2020-01-17 06:40] VITALS: BP 134/72
[2020-01-17] MEDS: ALBUTEROL 90 MCG/ACT 8GM HFA INHALER INH PRN (08:25)
[2020-01-17] MEDS: TAMOXIFEN CITRATE 10 MG TAB PO SCH (08:25)
[2020-01-17] MEDS: BACITRACIN OINTMENT 30GM TUBE TOP SCH ×3 (08:26→21:23)
[2020-01-17] MEDS: OLANZapine ORAL DISINTEGRATING TAB 5MG PO PRN ×2 (08:27→12:25)
[2020-01-17] MEDS: ACYCLOVIR 200 MG CAPSULE PO SCH ×2 (08:27→21:24)
[2020-01-17] MEDS: DOCUSATE SODIUM 100MG CAPSULE PO SCH (08:28)
[2020-01-17] MEDS: OMEGA-3 1000MG CAPSULE PO SCH (08:28)
[2020-01-17] MEDS: NALTREXONE 50 MG TAB PO SCH ×2 (08:28→21:24)
[2020-01-17] MEDS: TORSEMIDE 20 MG TAB PO SCH (08:28)
[2020-01-17] MEDS: PILL CUTTER 1 EACH XX PRN ×2 (08:29→16:33)
[2020-01-17] MEDS: FOLIC ACID 1 MG TAB PO SCH (08:29)
[2020-01-17] MEDS: POTASSIUM CHLORIDE 10 MEQ SR TABLET PO SCH (08:29)
[2020-01-17] MEDS: PYRIDOSTIGMINE 60 MG TAB PO SCH ×4 (08:29→21:27)
[2020-01-17] MEDS: FLUoxetine 20 MG CAP PO SCH (08:30)
[2020-01-17] MEDS: MULTIVITAMINS/MINERALS THERAP 1 TAB PO SCH (08:30)
[2020-01-17] MEDS: acetaZOLAMIDE 500 MG ER CAP PO SCH ×2 (08:30→21:25)
[2020-01-17] MEDS: OMEPRAZOLE 20 MG CAP PO SCH (08:30)
[2020-01-17] MEDS: MYCOPHENOLATE MOFETIL 250 MG CAP (J7517) PO SCH ×3 (08:30→21:24)
[2020-01-17] MEDS: BACLOFEN 10 MG TAB PO SCH ×3 (08:30→21:25)
[2020-01-17] MEDS: MELOXICAM (MOBIC) 7.5 MG TAB PO SCH (08:30)
[2020-01-17] MEDS: hydrOXYzine 50 MG TAB PO SCH ×4 (08:30→21:25)
[2020-01-17] MEDS: VENLAFAXINE **XR** 75MG CAPSULE PO SCH (08:31)
--- NOTE | 2020-01-17 13:29 | MHIPNPDOC ---
[facility] [place] Progress Note Progress Note DATE OF SERVICE: 01/17/20 Subjective HPI: Mitra presents today for her suicidal ideation and depression. She reports that she is doing fair. Her suicidal ideation and depression are mildly improved since scheduling of baclofen. Mitra reports no other major changes and still feels tired, disinterested, and generally unengaged. SOCIAL HISTORY - LIVING SITUATION: Isolated to room generally. Objective Mood: Dysthymic. Constricted. Cognition: Grossly intact. Thought Form: Linear logical association intact. Thought Content: Intermittent SI with no plan. Judgement: Poor to fair. Insight: Poor to fair. Assessment F33.2 Major depressive disorder, recurrent severe without psychotic features F60.3 Borderline personality disorder Plan Continue Prozac Clozaril. Schedule baclofen. Will determine if the improvement is likely secondary to adjustment versus medication-related. Vital Signs Vital Signs Date Time Temp Pulse Resp B/P (MAP) Pulse Ox O2 Delivery O2 Flow Rate FiO2 01/17/20 06:40 96.7 74 16 134/72 (92) 01/16/20 09:16 Room Air 01/15/20 18:28 100 Current Medications Current Medications Medications (Trade) Dose Ordered Sig/Ben Route PRN Reason Start Time Stop Time Status Last Admin Dose Admin Acetaminophen (Tylenol Tab) 650 mg Q6HP PRN PO HEADACHE or DISCOMFORT 01/10/20 20:30 01/16/20 08:52 Acetazolamide (Diamox Sequels) 500 mg BID PO 01/10/20 21:00 01/17/20 08:30 Acetazolamide (Diamox) 500 mg BID PO 01/10/20 09:00 01/10/20 22:33 DC 01/10/20 08:29 Acyclovir (Zovirax) 400 mg BID PO 01/10/20 09:00 01/10/20 22:33 DC 01/10/20 08:22 Acyclovir (Zovirax) 400 mg BID PO 01/10/20 21:00 01/17/20 08:27 Al Hydrox/Mg Hydrox/Simethicone (Mylanta) 30 ml Q4HP PRN PO HEARTBURN/INDIGESTION 01/10/20 20:30 Albuterol Sulfate (Proventil, Ventolin Hfa) 2 puff Q2HP PRN INH SHORTNESS OF BREATH 01/11/20 12:15 01/17/20 08:25 Bacitracin (Bacitracin Oint) apply to left arm lacerations TID TOP 01/11/20 21:00 01/17/20 08:26 Baclofen (Lioresal) 10 mg TID PO 01/16/20 16:00 01/17/20 08:30 Baclofen (Lioresal) 10 mg TIDP PRN PO MUSCLE SPASMS 01/10/20 22:45 01/16/20 11:38 DC 01/16/20 08:51 Clozapine (Clozaril) 100 mg QHS PO 01/10/20 21:00 01/16/20 22:01 Docusate Sodium (Colace) 100 mg DAILY PO 01/11/20 09:00 01/17/20 08:28 Fish Oil ([place]-3 (1000mg)) 1 cap DAILY PO 01/10/20 09:00 01/10/20 22:33 DC 01/10/20 08:29 Fish Oil ([place]-3 (1000mg)) 1 cap DAILY PO 01/11/20 09:00 01/17/20 08:28 Fluoxetine HCl (PROzac) 20 mg DAILY PO 01/10/20 09:00 01/10/20 22:33 DC 01/10/20 08:22 Fluoxetine HCl (PROzac) 20 mg DAILY PO 01/11/20 09:00 01/12/20 12:40 DC 01/12/20 08:33 Fluoxetine HCl (PROzac) 30 mg DAILY PO 01/13/20 09:00 01/16/20 11:35 DC 01/16/20 08:50 Fluoxetine HCl (PROzac) 40 mg DAILY PO 01/17/20 09:00 01/17/20 08:30 Folic Acid (Folic Acid) 1 mg DAILY PO 01/10/20 09:00 01/10/20 20:27 DC 01/10/20 08:23 Folic Acid (Folic Acid) 1 mg DAILY PO 01/11/20 09:00 01/17/20 08:29 Folic Acid (Folic Acid) 1 mg DAILY PO 01/11/20 09:00 Cancel Home Med (Med Rec Complete!) ASDIRECTED XX 01/10/20 21:45 01/10/20 21:35 DC Hydroxyzine HCl (Atarax) 50 mg QID PO 01/10/20 13:00 01/10/20 22:33 DC 01/10/20 17:03 Hydroxyzine HCl (Atarax) 50 mg QID PO 01/11/20 13:00 01/17/20 12:25 Hydroxyzine HCl (Atarax) 50 mg QIDP PRN PO ANXIETY 01/10/20 22:45 01/11/20 12:19 DC 01/11/20 08:37 Lorazepam (Ativan) 2 mg ASDIRECTED PRN PO SEE PROTOCOL 01/10/20 20:30 01/11/20 16:44 DC Magnesium Hydroxide (Milk Of Magnesia) 30 ml DAILYPRN PRN PO CONSTIPATION 01/10/20 20:30 Meloxicam (Mobic) 15 mg DAILY PO 01/11/20 09:00 01/17/20 08:30 Mirtazapine (Remeron) 30 mg QHS PO 01/10/20 21:00 01/16/20 22:00 Miscellaneous (Unresolved Clarification Entry) SEE LABEL COMMENTS DAILY XX 01/15/20 09:00 01/15/20 11:17 DC Multivitamins (Theragram-M) 1 tab DAILY PO 01/11/20 09:00 01/17/20 08:30 Mycophenolate Mofetil (Cellcept) 500 mg TID PO 01/10/20 09:00 01/10/20 22:33 DC 01/10/20 17:04 Mycophenolate Mofetil (Cellcept) 1,000 mg TID PO 01/10/20 21:00 01/17/20 08:30 Naltrexone HCl (Revia) 50 mg BID PO 01/10/20 09:00 01/10/20 22:33 DC 01/10/20 08:28 Naltrexone HCl (Revia) 50 mg BID PO 01/10/20 21:00 01/17/20 08:28 Olanzapine (ZyPREXA ZYDIS) 5 mg Q4HP PRN PO ANXIETY/AGITATION 01/11/20 16:45 01/17/20 12:25 Omeprazole (PriLOSEC) 20 mg DAILY PO 01/10/20 09:00 01/10/20 22:33 DC 01/10/20 08:21 Omeprazole (PriLOSEC) 20 mg DAILY PO 01/11/20 09:00 01/17/20 08:30 Potassium Chloride (Micro-K Extencaps) 20 meq DAILY PO 01/10/20 09:00 01/10/20 22:33 DC 01/10/20 08:22 Potassium Chloride (Micro-K Extencaps) 20 meq DAILY PO 01/11/20 09:00 01/17/20 08:29 Pyridostigmine [place] (Mestinon) 90 mg QID PO 01/10/20 09:00 01/10/20 22:33 DC 01/10/20 17:02 Pyridostigmine [place] ([place]) 90 mg QID PO 01/10/20 21:00 01/17/20 12:25 Senna (Senokot) 2 tab QHSP PRN PO CONSTIPATION 01/10/20 22:45 Tamoxifen Citrate (Nolvadex) 20 mg DAILY PO 01/10/20 09:00 01/10/20 22:33 DC 01/10/20 08:31 Tamoxifen Citrate (Nolvadex) 20 mg DAILY PO 01/11/20 09:00 01/17/20 08:25 Thiamine HCl (Thiamine HCl) 100 mg BID PO 01/10/20 21:00 01/13/20 20:59 DC 01/13/20 08:03 Torsemide (Demadex) 20 mg DAILY PO 01/10/20 09:00 01/10/20 22:33 DC 01/10/20 08:22 Torsemide (Demadex) 20 mg DAILY PO 01/11/20 09:00 01/17/20 08:28 Trazodone HCl (Desyrel) 50 mg QHSP PRN PO INSOMNIA 01/10/20 20:30 Venlafaxine HCl (Effexor Xr) 225 mg DAILY PO 01/11/20 09:00 01/17/20 08:31 Venlafaxine HCl (Effexor) 225 mg DAILY PO 01/10/20 09:00 01/10/20 22:33 DC 01/10/20 08:28 Vitamin D (Vitamin D) 5,000 units DAILY PO 01/10/20 09:00 01/10/20 22:33 DC 01/10/20 08:20 Allergies Coded Allergies: amitriptyline (Verified Allergy, Severe, SWELLING, 11/29/19) Grass (Verified Allergy, Mild, ITCHY EYES,NOSE, 11/29/19) TAPE (Verified Allergy, Mild, RASH/BLISTER, 11/29/19) TREES (Verified Allergy, Mild, ITCHY EYES,NOSE, 11/29/19) adhesive (Verified Allergy, Unknown, 11/29/19) divalproex sodium (Verified Allergy, Unknown, 11/29/19) minocycline (Verified Allergy, Unknown, 11/29/19) mold (Verified Allergy, Unknown, 11/29/19) tetracycline (Verified Allergy, Unknown, 11/29/19) bupropion (Verified Adverse Reaction, Intermediate, ESOPHAGEAL SPASMS, 11/29/19) banana (Verified Adverse Reaction, Mild, VOMITING, 11/29/19) benztropine (Verified Adverse Reaction, Mild, BLURRED VISION, 11/29/19) clindamycin (Verified Adverse Reaction, Mild, HEART BURN, 11/29/19) gabapentin (Verified Adverse Reaction, Mild, extreme weakness, 11/29/19) metaxalone (Verified Adverse Reaction, Mild, itching, 11/29/19) pregabalin (Verified Adverse Reaction, Mild, EDEMA, 11/29/19) sulfamethoxazole (Verified Adverse Reaction, Mild, DIARRHEA, 11/29/19) tizanidine (Verified Adverse Reaction, Mild, ITCHING, 11/29/19) trazodone (Verified Adverse Reaction, Mild, EDEMA, 11/29/19) trimethoprim (Verified Adverse Reaction, Mild, DIARRHEA, 11/29/19) vilazodone (Verified Adverse Reaction, Mild, MOOD CHANGES, 11/29/19) cyclobenzaprine (Verified Adverse Reaction, Unknown, IRRITABILITY, 11/29/19) valproic acid (Unverified Adverse Reaction, Unknown, DOES NOT METABOLIZE, 11/29/19) MANJULA ALBRIGHT DO Jan 17, 2020 13:29
[2020-01-17 16:18] VITALS: BP 124/67
[2020-01-17] MEDS: MIRTAZAPINE 15 MG TAB PO SCH (21:24)
[2020-01-17] MEDS: cloZAPine 100 MG TAB (S0136) PO SCH (21:25)
[2020-01-18 06:40] VITALS: BP 142/82
[2020-01-18] MEDS: ALBUTEROL 90 MCG/ACT 8GM HFA INHALER INH PRN (08:31)
[2020-01-18] MEDS: BACITRACIN OINTMENT 30GM TUBE TOP SCH ×3 (08:31→22:31)
[2020-01-18] MEDS: PILL CUTTER 1 EACH XX PRN ×3 (08:31→17:19)
[2020-01-18] MEDS: TAMOXIFEN CITRATE 10 MG TAB PO SCH (08:34)
[2020-01-18] MEDS: DOCUSATE SODIUM 100MG CAPSULE PO SCH (08:35)
[2020-01-18] MEDS: MYCOPHENOLATE MOFETIL 250 MG CAP (J7517) PO SCH ×3 (08:35→22:30)
[2020-01-18] MEDS: BACLOFEN 10 MG TAB PO SCH ×3 (08:35→22:28)
[2020-01-18] MEDS: hydrOXYzine 50 MG TAB PO SCH ×4 (08:35→22:28)
[2020-01-18] MEDS: ACYCLOVIR 200 MG CAPSULE PO SCH ×2 (08:35→22:27)
[2020-01-18] MEDS: TORSEMIDE 20 MG TAB PO SCH (08:35)
[2020-01-18] MEDS: PYRIDOSTIGMINE 60 MG TAB PO SCH ×4 (08:36→22:29)
[2020-01-18] MEDS: OMEPRAZOLE 20 MG CAP PO SCH (08:36)
[2020-01-18] MEDS: MULTIVITAMINS/MINERALS THERAP 1 TAB PO SCH (08:36)
[2020-01-18] MEDS: acetaZOLAMIDE 500 MG ER CAP PO SCH ×2 (08:36→22:28)
[2020-01-18] MEDS: POTASSIUM CHLORIDE 10 MEQ SR TABLET PO SCH (08:36)
[2020-01-18] MEDS: FLUoxetine 20 MG CAP PO SCH (08:37)
[2020-01-18] MEDS: OMEGA-3 1000MG CAPSULE PO SCH (08:37)
[2020-01-18] MEDS: MELOXICAM (MOBIC) 7.5 MG TAB PO SCH (08:37)
[2020-01-18] MEDS: VENLAFAXINE **XR** 75MG CAPSULE PO SCH (08:37)
[2020-01-18] MEDS: FOLIC ACID 1 MG TAB PO SCH (08:37)
[2020-01-18] MEDS: NALTREXONE 50 MG TAB PO SCH ×2 (08:37→22:28)
--- NOTE | 2020-01-18 10:22 | MHIPNPDOC ---
[facility] Progress Note Progress Note DATE OF SERVICE: 01/18/20 Subjective HPI: Mitra presents today to be met with, she reports that she is doing better and making some improvements. She notes that she does not feel overly pressured by her current situation. She is notably more engaged today. MEDICATIONS: Patient states that Prozac has been helpful and that she is less depressed. Objective Appearance: Well groomed. Appears to be stated age. Well nourished. Fair hygien e. Behavior: Cooperative with good eye contact. Pleasant. Engaged. Mood: Generally good. Euthymic. Less dysthymic, more reactive. Speech: Normal volume. Normal rate. Spontaneous and Fluid. Cognition: Alert, Attentive, and Oriented to person, place, time. Thought Content: No evidence of delusions. No evidence of aggressive or homicidal ideation. No thoughts of self harm. Suicidal ideation appears to be improving. Judgement: Improved. Insight: Improved. Assessment F33.2 Major depressive disorder, recurrent severe without psychotic features F60.3 Borderline personality disorder Plan Continue Prozac elevation, Clozaril, and others at this time making some slow progress. Discussed with patient about talking to her oncologist when she leaves about changing medications if she finds Tamoxifen makes her feel worse. Vital Signs Vital Signs Date Time Temp Pulse Resp B/P (MAP) Pulse Ox O2 Delivery O2 Flow Rate FiO2 01/18/20 06:40 96.8 78 18 142/82 (102) 01/16/20 09:16 Room Air 01/15/20 18:28 100 Current Medications Current Medications Medications (Trade) Dose Ordered Sig/Ben Route PRN Reason Start Time Stop Time Status Last Admin Dose Admin Acetaminophen (Tylenol Tab) 650 mg Q6HP PRN PO HEADACHE or DISCOMFORT 01/10/20 20:30 01/16/20 08:52 Acetazolamide (Diamox Sequels) 500 mg BID PO 01/10/20 21:00 01/18/20 08:36 Acetazolamide (Diamox) 500 mg BID PO 01/10/20 09:00 01/10/20 22:33 DC 01/10/20 08:29 Acyclovir (Zovirax) 400 mg BID PO 01/10/20 09:00 01/10/20 22:33 DC 01/10/20 08:22 Acyclovir (Zovirax) 400 mg BID PO 01/10/20 21:00 01/18/20 08:35 Al Hydrox/Mg Hydrox/Simethicone (Mylanta) 30 ml Q4HP PRN PO HEARTBURN/INDIGESTION 01/10/20 20:30 Albuterol Sulfate (Proventil, Ventolin Hfa) 2 puff Q2HP PRN INH SHORTNESS OF BREATH 01/11/20 12:15 01/18/20 08:31 Bacitracin (Bacitracin Oint) apply to left arm lacerations TID TOP 01/11/20 21:00 01/18/20 08:31 Baclofen (Lioresal) 10 mg TID PO 01/16/20 16:00 01/18/20 08:35 Baclofen (Lioresal) 10 mg TIDP PRN PO MUSCLE SPASMS 01/10/20 22:45 01/16/20 11:38 DC 01/16/20 08:51 Clozapine (Clozaril) 100 mg QHS PO 01/10/20 21:00 01/17/20 21:25 Docusate Sodium (Colace) 100 mg DAILY PO 01/11/20 09:00 01/18/20 08:35 Fish Oil ([place]-3 (1000mg)) 1 cap DAILY PO 01/10/20 09:00 01/10/20 22:33 DC 01/10/20 08:29 Fish Oil ([place]-3 (1000mg)) 1 cap DAILY PO 01/11/20 09:00 01/18/20 08:37 Fluoxetine HCl (PROzac) 20 mg DAILY PO 01/10/20 09:00 01/10/20 22:33 DC 01/10/20 08:22 Fluoxetine HCl (PROzac) 20 mg DAILY PO 01/11/20 09:00 01/12/20 12:40 DC 01/12/20 08:33 Fluoxetine HCl (PROzac) 30 mg DAILY PO 01/13/20 09:00 01/16/20 11:35 DC 01/16/20 08:50 Fluoxetine HCl (PROzac) 40 mg DAILY PO 01/17/20 09:00 01/18/20 08:37 Folic Acid (Folic Acid) 1 mg DAILY PO 01/10/20 09:00 01/10/20 20:27 DC 01/10/20 08:23 Folic Acid (Folic Acid) 1 mg DAILY PO 01/11/20 09:00 01/18/20 08:37 Folic Acid (Folic Acid) 1 mg DAILY PO 01/11/20 09:00 Cancel Home Med (Med Rec Complete!) ASDIRECTED XX 01/10/20 21:45 01/10/20 21:35 DC Hydroxyzine HCl (Atarax) 50 mg QID PO 01/10/20 13:00 01/10/20 22:33 DC 01/10/20 17:03 Hydroxyzine HCl (Atarax) 50 mg QID PO 01/11/20 13:00 01/18/20 08:35 Hydroxyzine HCl (Atarax) 50 mg QIDP PRN PO ANXIETY 01/10/20 22:45 01/11/20 12:19 DC 01/11/20 08:37 Lorazepam (Ativan) 2 mg ASDIRECTED PRN PO SEE PROTOCOL 01/10/20 20:30 01/11/20 16:44 DC Magnesium Hydroxide (Milk Of Magnesia) 30 ml DAILYPRN PRN PO CONSTIPATION 01/10/20 20:30 Meloxicam (Mobic) 15 mg DAILY PO 01/11/20 09:00 01/18/20 08:37 Mirtazapine (Remeron) 30 mg QHS PO 01/10/20 21:00 01/17/20 21:24 Miscellaneous (Unresolved Clarification Entry) SEE LABEL COMMENTS DAILY XX 01/15/20 09:00 01/15/20 11:17 DC Multivitamins (Theragram-M) 1 tab DAILY PO 01/11/20 09:00 01/18/20 08:36 Mycophenolate Mofetil (Cellcept) 500 mg TID PO 01/10/20 09:00 01/10/20 22:33 DC 01/10/20 17:04 Mycophenolate Mofetil (Cellcept) 1,000 mg TID PO 01/10/20 21:00 01/18/20 08:35 Naltrexone HCl (Revia) 50 mg BID PO 01/10/20 09:00 01/10/20 22:33 DC 01/10/20 08:28 Naltrexone HCl (Revia) 50 mg BID PO 01/10/20 21:00 01/18/20 08:37 Olanzapine (ZyPREXA ZYDIS) 5 mg Q4HP PRN PO ANXIETY/AGITATION 01/11/20 16:45 01/17/20 12:25 Omeprazole (PriLOSEC) 20 mg DAILY PO 01/10/20 09:00 01/10/20 22:33 DC 01/10/20 08:21 Omeprazole (PriLOSEC) 20 mg DAILY PO 01/11/20 09:00 01/18/20 08:36 Potassium Chloride (Micro-K Extencaps) 20 meq DAILY PO 01/10/20 09:00 01/10/20 22:33 DC 01/10/20 08:22 Potassium Chloride (Micro-K Extencaps) 20 meq DAILY PO 01/11/20 09:00 01/18/20 08:36 Pyridostigmine [place] (Mestinon) 90 mg QID PO 01/10/20 09:00 01/10/20 22:33 DC 01/10/20 17:02 Pyridostigmine [place] (Mestinon) 90 mg QID PO 01/10/20 21:00 01/18/20 08:36 Senna (Senokot) 2 tab QHSP PRN PO CONSTIPATION 01/10/20 22:45 Tamoxifen Citrate (Nolvadex) 20 mg DAILY PO 01/10/20 09:00 01/10/20 22:33 DC 01/10/20 08:31 Tamoxifen Citrate (Nolvadex) 20 mg DAILY PO 01/11/20 09:00 01/18/20 08:34 Thiamine HCl (Thiamine HCl) 100 mg BID PO 01/10/20 21:00 01/13/20 20:59 DC 01/13/20 08:03 Torsemide (Demadex) 20 mg DAILY PO 01/10/20 09:00 01/10/20 22:33 DC 01/10/20 08:22 Torsemide (Demadex) 20 mg DAILY PO 01/11/20 09:00 01/18/20 08:35 Trazodone HCl (Desyrel) 50 mg QHSP PRN PO INSOMNIA 01/10/20 20:30 Venlafaxine HCl (Effexor Xr) 225 mg DAILY PO 01/11/20 09:00 01/18/20 08:37 Venlafaxine HCl (Effexor) 225 mg DAILY PO 01/10/20 09:00 01/10/20 22:33 DC 01/10/20 08:28 Vitamin D (Vitamin D) 5,000 units DAILY PO 01/10/20 09:00 01/10/20 22:33 DC 01/10/20 08:20 Allergies Coded Allergies: amitriptyline (Verified Allergy, Severe, SWELLING, 11/29/19) Grass (Verified Allergy, Mild, ITCHY EYES,NOSE, 11/29/19) TAPE (Verified Allergy, Mild, RASH/BLISTER, 11/29/19) TREES (Verified Allergy, Mild, ITCHY EYES,NOSE, 11/29/19) adhesive (Verified Allergy, Unknown, 11/29/19) divalproex sodium (Verified Allergy, Unknown, 11/29/19) minocycline (Verified Allergy, Unknown, 11/29/19) mold (Verified Allergy, Unknown, 11/29/19) tetracycline (Verified Allergy, Unknown, 11/29/19) bupropion (Verified Adverse Reaction, Intermediate, ESOPHAGEAL SPASMS, 11/29/19) banana (Verified Adverse Reaction, Mild, VOMITING, 11/29/19) benztropine (Verified Adverse Reaction, Mild, BLURRED VISION, 11/29/19) clindamycin (Verified Adverse Reaction, Mild, HEART BURN, 11/29/19) gabapentin (Verified Adverse Reaction, Mild, extreme weakness, 11/29/19) metaxalone (Verified Adverse Reaction, Mild, itching, 11/29/19) pregabalin (Verified Adverse Reaction, Mild, EDEMA, 11/29/19) sulfamethoxazole (Verified Adverse Reaction, Mild, DIARRHEA, 11/29/19) tizanidine (Verified Adverse Reaction, Mild, ITCHING, 11/29/19) trazodone (Verified Adverse Reaction, Mild, EDEMA, 11/29/19) trimethoprim (Verified Adverse Reaction, Mild, DIARRHEA, 11/29/19) vilazodone (Verified Adverse Reaction, Mild, MOOD CHANGES, 11/29/19) cyclobenzaprine (Verified Adverse Reaction, Unknown, IRRITABILITY, 11/29/19) valproic acid (Unverified Adverse Reaction, Unknown, DOES NOT METABOLIZE, 11/29/19) MANJULA ALBRIGHT DO Jan 18, 2020 10:22
[2020-01-18] MEDS: OLANZapine ORAL DISINTEGRATING TAB 5MG PO PRN ×2 (11:07→15:53)
[2020-01-18 16:28] VITALS: BP 140/80
[2020-01-18] MEDS: cloZAPine 100 MG TAB (S0136) PO SCH (22:27)
[2020-01-18] MEDS: MIRTAZAPINE 15 MG TAB PO SCH (22:27)
[2020-01-19 06:47] VITALS: BP 151/85
[2020-01-19] MEDS: VENLAFAXINE **XR** 75MG CAPSULE PO SCH (08:00)
[2020-01-19] MEDS: TAMOXIFEN CITRATE 10 MG TAB PO SCH (08:01)
[2020-01-19] MEDS: FLUoxetine 20 MG CAP PO SCH (08:01)
[2020-01-19] MEDS: ACYCLOVIR 200 MG CAPSULE PO SCH ×2 (08:02→20:50)
[2020-01-19] MEDS: POTASSIUM CHLORIDE 10 MEQ SR TABLET PO SCH (08:02)
[2020-01-19] MEDS: FOLIC ACID 1 MG TAB PO SCH (08:03)
[2020-01-19] MEDS: MELOXICAM (MOBIC) 7.5 MG TAB PO SCH (08:03)
[2020-01-19] MEDS: MYCOPHENOLATE MOFETIL 250 MG CAP (J7517) PO SCH ×3 (08:04→20:54)
[2020-01-19] MEDS: acetaZOLAMIDE 500 MG ER CAP PO SCH ×2 (08:04→20:50)
[2020-01-19] MEDS: TORSEMIDE 20 MG TAB PO SCH (08:05)
[2020-01-19] MEDS: MULTIVITAMINS/MINERALS THERAP 1 TAB PO SCH (08:05)
[2020-01-19] MEDS: DOCUSATE SODIUM 100MG CAPSULE PO SCH (08:05)
[2020-01-19] MEDS: OMEGA-3 1000MG CAPSULE PO SCH (08:05)
[2020-01-19] MEDS: OMEPRAZOLE 20 MG CAP PO SCH (08:06)
[2020-01-19] MEDS: NALTREXONE 50 MG TAB PO SCH ×2 (08:06→20:54)
[2020-01-19] MEDS: BACLOFEN 10 MG TAB PO SCH ×3 (08:06→20:54)
[2020-01-19] MEDS: hydrOXYzine 50 MG TAB PO SCH ×4 (08:06→20:52)
[2020-01-19] MEDS: PYRIDOSTIGMINE 60 MG TAB PO SCH ×4 (08:07→20:51)
[2020-01-19] MEDS: BACITRACIN OINTMENT 30GM TUBE TOP SCH ×3 (08:49→20:57)
--- NOTE | 2020-01-19 11:15 | MHIPNPDOC ---
[facility] Progress Note Progress Note DATE OF SERVICE: 01/19/20 Subjective HPI: The patient today reports that she is feeling more depressed, and her suicidal thoughts have returned. She reports that she feels down and hopeless about things, having difficulty sleeping and increased anxiety about her situation. She hasnt attended groups, but reports the Hydroxyzine is no longer effective. Objective Appearance: Well groomed. Appears to be stated age. Well nourished. Behavior: Poor eye contact. Mood: Dysthymic. Speech: Normal rate. Normal volume. Spontaneous and Fluid. Thought Content: Passive suicidal ideation. Judgement: Fair. Insight: Fair. Assessment F33.2 Major depressive disorder, recurrent severe without psychotic features F60.3 Borderline personality disorder Plan Continue Prozac and Clozaril. Change Hydroxyzine to 100 mg b.i.d with a 25 mg p.r.n on a q.4h. p.r.n to help with anxiety issues likely attenuating to this. Situational stressors could be at play, however, she does appear quite dysthymic. Vital Signs Vital Signs Date Time Temp Pulse Resp B/P (MAP) Pulse Ox O2 Delivery O2 Flow Rate FiO2 01/19/20 06:47 97.3 71 14 151/85 (107) 98 Room Air Current Medications Current Medications Medications (Trade) Dose Ordered Sig/Ben Route PRN Reason Start Time Stop Time Status Last Admin Dose Admin Acetaminophen (Tylenol Tab) 650 mg Q6HP PRN PO HEADACHE or DISCOMFORT 01/10/20 20:30 01/16/20 08:52 Acetazolamide (Diamox Sequels) 500 mg BID PO 01/10/20 21:00 01/19/20 08:04 Acetazolamide (Diamox) 500 mg BID PO 01/10/20 09:00 01/10/20 22:33 DC 01/10/20 08:29 Acyclovir (Zovirax) 400 mg BID PO 01/10/20 09:00 01/10/20 22:33 DC 01/10/20 08:22 Acyclovir (Zovirax) 400 mg BID PO 01/10/20 21:00 01/19/20 08:02 Al Hydrox/Mg Hydrox/Simethicone (Mylanta) 30 ml Q4HP PRN PO HEARTBURN/INDIGESTION 01/10/20 20:30 Albuterol Sulfate (Proventil, Ventolin Hfa) 2 puff Q2HP PRN INH SHORTNESS OF BREATH 01/11/20 12:15 01/18/20 08:31 Bacitracin (Bacitracin Oint) apply to left arm lacerations TID TOP 01/11/20 21:00 01/19/20 08:49 Baclofen (Lioresal) 10 mg TID PO 01/16/20 16:00 01/19/20 08:06 Baclofen (Lioresal) 10 mg TIDP PRN PO MUSCLE SPASMS 01/10/20 22:45 01/16/20 11:38 DC 01/16/20 08:51 Clozapine (Clozaril) 100 mg QHS PO 01/10/20 21:00 01/18/20 22:27 Docusate Sodium (Colace) 100 mg DAILY PO 01/11/20 09:00 01/19/20 08:05 Fish Oil ([place]-3 (1000mg)) 1 cap DAILY PO 01/10/20 09:00 01/10/20 22:33 DC 01/10/20 08:29 Fish Oil ([place]-3 (1000mg)) 1 cap DAILY PO 01/11/20 09:00 01/19/20 08:05 Fluoxetine HCl (PROzac) 20 mg DAILY PO 01/10/20 09:00 01/10/20 22:33 DC 01/10/20 08:22 Fluoxetine HCl (PROzac) 20 mg DAILY PO 01/11/20 09:00 01/12/20 12:40 DC 01/12/20 08:33 Fluoxetine HCl (PROzac) 30 mg DAILY PO 01/13/20 09:00 01/16/20 11:35 DC 01/16/20 08:50 Fluoxetine HCl (PROzac) 40 mg DAILY PO 01/17/20 09:00 01/19/20 08:01 Folic Acid (Folic Acid) 1 mg DAILY PO 01/10/20 09:00 01/10/20 20:27 DC 01/10/20 08:23 Folic Acid (Folic Acid) 1 mg DAILY PO 01/11/20 09:00 01/19/20 08:03 Folic Acid (Folic Acid) 1 mg DAILY PO 01/11/20 09:00 Cancel Home Med (Med Rec Complete!) ASDIRECTED XX 01/10/20 21:45 01/10/20 21:35 DC Hydroxyzine HCl (Atarax) 50 mg QID PO 01/10/20 13:00 01/10/20 22:33 DC 01/10/20 17:03 Hydroxyzine HCl (Atarax) 50 mg QID PO 01/11/20 13:00 01/19/20 08:06 Hydroxyzine HCl (Atarax) 50 mg QIDP PRN PO ANXIETY 01/10/20 22:45 01/11/20 12:19 DC 01/11/20 08:37 Lorazepam (Ativan) 2 mg ASDIRECTED PRN PO SEE PROTOCOL 01/10/20 20:30 01/11/20 16:44 DC Magnesium Hydroxide (Milk Of Magnesia) 30 ml DAILYPRN PRN PO CONSTIPATION 01/10/20 20:30 Meloxicam (Mobic) 15 mg DAILY PO 01/11/20 09:00 01/19/20 08:03 Mirtazapine (Remeron) 30 mg QHS PO 01/10/20 21:00 01/18/20 22:27 Miscellaneous (Unresolved Clarification Entry) SEE LABEL COMMENTS DAILY XX 01/15/20 09:00 01/15/20 11:17 DC Multivitamins (Theragram-M) 1 tab DAILY PO 01/11/20 09:00 01/19/20 08:05 Mycophenolate Mofetil (Cellcept) 500 mg TID PO 01/10/20 09:00 01/10/20 22:33 DC 01/10/20 17:04 Mycophenolate Mofetil (Cellcept) 1,000 mg TID PO 01/10/20 21:00 01/19/20 08:04 Naltrexone HCl (Revia) 50 mg BID PO 01/10/20 09:00 01/10/20 22:33 DC 01/10/20 08:28 Naltrexone HCl (Revia) 50 mg BID PO 01/10/20 21:00 01/19/20 08:06 Olanzapine (ZyPREXA ZYDIS) 5 mg Q4HP PRN PO ANXIETY/AGITATION 01/11/20 16:45 01/18/20 15:53 Omeprazole (PriLOSEC) 20 mg DAILY PO 01/10/20 09:00 01/10/20 22:33 DC 01/10/20 08:21 Omeprazole (PriLOSEC) 20 mg DAILY PO 01/11/20 09:00 01/19/20 08:06 Potassium Chloride (Micro-K Extencaps) 20 meq DAILY PO 01/10/20 09:00 01/10/20 22:33 DC 01/10/20 08:22 Potassium Chloride (Micro-K Extencaps) 20 meq DAILY PO 01/11/20 09:00 01/19/20 08:02 Pyridostigmine [place] (Mestinon) 90 mg QID PO 01/10/20 09:00 01/10/20 22:33 DC 01/10/20 17:02 Pyridostigmine [place] (Mestinon) 90 mg QID PO 01/10/20 21:00 01/19/20 08:07 Senna (Senokot) 2 tab QHSP PRN PO CONSTIPATION 01/10/20 22:45 Tamoxifen Citrate (Nolvadex) 20 mg DAILY PO 01/10/20 09:00 01/10/20 22:33 DC 01/10/20 08:31 Tamoxifen Citrate (Nolvadex) 20 mg DAILY PO 01/11/20 09:00 01/19/20 08:01 Thiamine HCl (Thiamine HCl) 100 mg BID PO 01/10/20 21:00 01/13/20 20:59 DC 01/13/20 08:03 Torsemide (Demadex) 20 mg DAILY PO 01/10/20 09:00 01/10/20 22:33 DC 01/10/20 08:22 Torsemide (Demadex) 20 mg DAILY PO 01/11/20 09:00 01/19/20 08:05 Trazodone HCl (Desyrel) 50 mg QHSP PRN PO INSOMNIA 01/10/20 20:30 Venlafaxine HCl (Effexor Xr) 225 mg DAILY PO 01/11/20 09:00 01/19/20 08:00 Venlafaxine HCl (Effexor) 225 mg DAILY PO 01/10/20 09:00 01/10/20 22:33 DC 01/10/20 08:28 Vitamin D (Vitamin D) 5,000 units DAILY PO 01/10/20 09:00 01/10/20 22:33 DC 10/20/20 08:20 Allergies Coded Allergies: amitriptyline (Verified Allergy, Severe, SWELLING, 11/29/19) Grass (Verified Allergy, Mild, ITCHY EYES,NOSE, 11/29/19) TAPE (Verified Allergy, Mild, RASH/BLISTER, 11/29/19) TREES (Verified Allergy, Mild, ITCHY EYES,NOSE, 11/29/19) adhesive (Verified Allergy, Unknown, 11/29/19) divalproex sodium (Verified Allergy, Unknown, 11/29/19) minocycline (Verified Allergy, Unknown, 11/29/19) mold (Verified Allergy, Unknown, 11/29/19) tetracycline (Verified Allergy, Unknown, 11/29/19) bupropion (Verified Adverse Reaction, Intermediate, ESOPHAGEAL SPASMS, 11/29/19) banana (Verified Adverse Reaction, Mild, VOMITING, 11/29/19) benztropine (Verified Adverse Reaction, Mild, BLURRED VISION, 11/29/19) clindamycin (Verified Adverse Reaction, Mild, HEART BURN, 11/29/19) gabapentin (Verified Adverse Reaction, Mild, extreme weakness, 11/29/19) metaxalone (Verified Adverse Reaction, Mild, itching, 11/29/19) pregabalin (Verified Adverse Reaction, Mild, EDEMA, 11/29/19) sulfamethoxazole (Verified Adverse Reaction, Mild, DIARRHEA, 11/29/19) tizanidine (Verified Adverse Reaction, Mild, ITCHING, 11/29/19) trazodone (Verified Adverse Reaction, Mild, EDEMA, 11/29/19) trimethoprim (Verified Adverse Reaction, Mild, DIARRHEA, 11/29/19) vilazodone (Verified Adverse Reaction, Mild, MOOD CHANGES, 11/29/19) cyclobenzaprine (Verified Adverse Reaction, Unknown, IRRITABILITY, 11/29/19) valproic acid (Unverified Adverse Reaction, Unknown, DOES NOT METABOLIZE, 11/29/19) MANJULA ALBRIGHT DO Jan 19, 2020 11:15
--- NOTE | 2020-01-19 12:30 | ECGEPIP ---
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 Electronically Signed on 01-19-2020 12:29:52 EDT by Torin Tellez
[2020-01-19] MEDS: OLANZapine ORAL DISINTEGRATING TAB 5MG PO PRN (15:56)
[2020-01-19 16:47] VITALS: BP 136/80
--- NOTE | 2020-01-19 17:41 | IPNPDOC ---
Text Note Date of Service The patient was seen on 01/19/20. NOTE Subjective: Patient complains of legs edema. Patient stated that for past few days her legs edema increased. Objective: VS: Please see below. CONSTITUTIONAL: No acute distress EYES: PERRLA, EOM intact HENT, MOUTH: Normocephalic, atraumatic, moist mucous membranes, NECK: SUPPLE, no JVD, no lymphadenopathy, no carotid bruit CV: Regular rate and rhythm, S1S2 normal, no murmurs/rubs/gallops RESPIRATORY: Clear to auscultation bilaterally, no rales/rhonchi/wheezes GI: obese abdomen, BS positive in 4 quadrants, soft, nontender, nondistended, no rebound or guarding, no organomegaly : Deferred MUSCULOSKELETAL: +2 pitting edema NEUROLOGIC: Cranial Nerves II-XII are intact, no focal deficits ASSESSMENT: 39-year-old female with past medical history of neuralgia ophthalmicus, myasthenia gravis, fibromyalgia, chronic pain, depression, anxiety, borderline personality disorder, bipolar disorder who was admitted to [facility] for unspecified depressive disorder. Legs edema Unclear etiology for now Patient stated that she has been having legs edema since childhood We will check BNP and echo Also there is possibility for lymphostasis Patient cannot tolerate compression stockings VS,Fishbone, I+O VS, Fishbone, I+O Vital Signs Date Time Temp Pulse Resp B/P (MAP) Pulse Ox O2 Delivery O2 Flow Rate FiO2 01/19/20 16:47 98.0 77 16 136/80 (98) 99 Room Air JOSE D PERALTA DO Jan 19, 2020 17:41
[2020-01-19] MEDS: hydrOXYzine 50 MG TAB PO PRN (17:57)
[2020-01-19] MEDS: MIRTAZAPINE 15 MG TAB PO SCH (20:53)
[2020-01-19] MEDS: cloZAPine 100 MG TAB (S0136) PO SCH (20:53)
[2020-01-20 06:53] VITALS: BP 135/71
[2020-01-20] MEDS: PILL CUTTER 1 EACH XX PRN ×3 (08:21→16:59)
[2020-01-20] MEDS: TAMOXIFEN CITRATE 10 MG TAB PO SCH (08:21)
[2020-01-20] MEDS: ALBUTEROL 90 MCG/ACT 8GM HFA INHALER INH PRN (08:22)
[2020-01-20] MEDS: NALTREXONE 50 MG TAB PO SCH ×2 (08:23→20:52)
[2020-01-20] MEDS: OMEPRAZOLE 20 MG CAP PO SCH (08:23)
[2020-01-20] MEDS: FOLIC ACID 1 MG TAB PO SCH (08:23)
[2020-01-20] MEDS: MYCOPHENOLATE MOFETIL 250 MG CAP (J7517) PO SCH ×3 (08:23→20:52)
[2020-01-20] MEDS: FLUoxetine 20 MG CAP PO SCH (08:23)
[2020-01-20] MEDS: acetaZOLAMIDE 500 MG ER CAP PO SCH ×2 (08:23→20:52)
[2020-01-20] MEDS: ACYCLOVIR 200 MG CAPSULE PO SCH ×2 (08:24→20:51)
[2020-01-20] MEDS: TORSEMIDE 20 MG TAB PO SCH (08:24)
[2020-01-20] MEDS: BACLOFEN 10 MG TAB PO SCH ×3 (08:25→20:51)
[2020-01-20] MEDS: hydrOXYzine 50 MG TAB PO SCH ×2 (08:25→15:36)
[2020-01-20] MEDS: OMEGA-3 1000MG CAPSULE PO SCH (08:25)
[2020-01-20] MEDS: VENLAFAXINE **XR** 75MG CAPSULE PO SCH (08:25)
[2020-01-20] MEDS: DOCUSATE SODIUM 100MG CAPSULE PO SCH (08:25)
[2020-01-20] MEDS: MULTIVITAMINS/MINERALS THERAP 1 TAB PO SCH (08:25)
[2020-01-20] MEDS: MELOXICAM (MOBIC) 7.5 MG TAB PO SCH (08:25)
[2020-01-20] MEDS: PYRIDOSTIGMINE 60 MG TAB PO SCH ×4 (08:25→20:51)
[2020-01-20] MEDS: BACITRACIN OINTMENT 30GM TUBE TOP SCH ×3 (08:26→20:52)
[2020-01-20] MEDS: POTASSIUM CHLORIDE 10 MEQ SR TABLET PO SCH (08:26)
--- NOTE | 2020-01-20 11:04 | MHIPNPDOC ---
[facility] Progress Note Progress Note DATE OF SERVICE: 01/20/20 Subjective HPI/Interval Hx: Patient is met with today, reports continual low mood, she feels that her tamoxifen could be the problem. She reports that she has been trying to cut on the unit feeling increasingly depressed and despondent. 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 borderline personality disorder Plan Will continue medications as current with the exception of cluster all increased by 25 mg nightly , will attempt to engage patient more in therapy on the unit, as it appears she is regressing Vital Signs Vital Signs Date Time Temp Pulse Resp B/P (MAP) Pulse Ox O2 Delivery O2 Flow Rate FiO2 01/20/20 06:53 97.8 80 16 135/71 (92) 98 Room Air Laboratory Data 24H Labs Laboratory Tests 2 01/19/20 17:40: [id number] Natriuretic Peptide 45 Current Medications Current Medications Medications (Trade) Dose Ordered Sig/Ben Route PRN Reason Start Time Stop Time Status Last Admin Dose Admin Acetaminophen (Tylenol Tab) 650 mg Q6HP PRN PO HEADACHE or DISCOMFORT 01/10/20 20:30 01/16/20 08:52 Acetazolamide (Diamox Sequels) 500 mg BID PO 01/10/20 21:00 01/20/20 08:23 Acetazolamide (Diamox) 500 mg BID PO 01/10/20 09:00 01/10/20 22:33 DC 01/10/20 08:29 Acyclovir (Zovirax) 400 mg BID PO 01/10/20 09:00 01/10/20 22:33 DC 01/10/20 08:22 Acyclovir (Zovirax) 400 mg BID PO 01/10/20 21:00 01/20/20 08:24 Al Hydrox/Mg Hydrox/Simethicone (Mylanta) 30 ml Q4HP PRN PO HEARTBURN/INDIGESTION 01/10/20 20:30 Albuterol Sulfate (Proventil, Ventolin Hfa) 2 puff Q2HP PRN INH SHORTNESS OF BREATH 01/11/20 12:15 01/20/20 08:22 Bacitracin (Bacitracin Oint) apply to left arm lacerations TID TOP 01/11/20 21:00 01/20/20 08:26 Baclofen (Lioresal) 10 mg TID PO 01/16/20 16:00 01/20/20 08:25 Baclofen (Lioresal) 10 mg TIDP PRN PO MUSCLE SPASMS 01/10/20 22:45 01/16/20 11:38 DC 01/16/20 08:51 Clozapine (Clozaril) 100 mg QHS PO 01/10/20 21:00 01/19/20 20:53 Docusate Sodium (Colace) 100 mg DAILY PO 01/11/20 09:00 01/20/20 08:25 Fish Oil ([place]-3 (1000mg)) 1 cap DAILY PO 01/10/20 09:00 01/10/20 22:33 DC 01/10/20 08:29 Fish Oil ([place]-3 (1000mg)) 1 cap DAILY PO 01/11/20 09:00 01/20/20 08:25 Fluoxetine HCl (PROzac) 20 mg DAILY PO 01/10/20 09:00 01/10/20 22:33 DC 01/10/20 08:22 Fluoxetine HCl (PROzac) 20 mg DAILY PO 01/11/20 09:00 01/12/20 12:40 DC 01/12/20 08:33 Fluoxetine HCl (PROzac) 30 mg DAILY PO 01/13/20 09:00 01/16/20 11:35 DC 01/16/20 08:50 Fluoxetine HCl (PROzac) 40 mg DAILY PO 01/17/20 09:00 01/20/20 08:23 Folic Acid (Folic Acid) 1 mg DAILY PO 01/10/20 09:00 01/10/20 20:27 DC 01/10/20 08:23 Folic Acid (Folic Acid) 1 mg DAILY PO 01/11/20 09:00 01/20/20 08:23 Folic Acid (Folic Acid) 1 mg DAILY PO 01/11/20 09:00 Cancel Home Med (Med Rec Complete!) ASDIRECTED XX 01/10/20 21:45 01/10/20 21:35 DC Hydroxyzine HCl (Atarax) 50 mg Q6HP PRN PO anxiety 01/19/20 17:00 01/19/20 17:57 Hydroxyzine HCl (Atarax) 50 mg QID PO 01/10/20 13:00 01/10/20 22:33 DC 01/10/20 17:03 Hydroxyzine HCl (Atarax) 50 mg QID PO 01/11/20 13:00 01/19/20 16:52 DC 01/19/20 15:53 Hydroxyzine HCl (Atarax) 50 mg QIDP PRN PO ANXIETY 01/10/20 22:45 01/11/20 12:19 DC 01/11/20 08:37 Hydroxyzine HCl (Atarax) 100 mg BID PO 01/19/20 21:00 01/20/20 08:25 Lorazepam (Ativan) 2 mg ASDIRECTED PRN PO SEE PROTOCOL 01/10/20 20:30 01/11/20 16:44 DC Magnesium Hydroxide (Milk Of Magnesia) 30 ml DAILYPRN PRN PO CONSTIPATION 01/10/20 20:30 Meloxicam (Mobic) 15 mg DAILY PO 01/11/20 09:00 01/20/20 08:25 Mirtazapine (Remeron) 30 mg QHS PO 01/10/20 21:00 01/19/20 20:53 Miscellaneous (Unresolved Clarification Entry) SEE LABEL COMMENTS DAILY XX 01/15/20 09:00 01/15/20 11:17 DC Multivitamins (Theragram-M) 1 tab DAILY PO 01/11/20 09:00 01/20/20 08:25 Mycophenolate Mofetil (Cellcept) 500 mg TID PO 01/10/20 09:00 01/10/20 22:33 DC 01/10/20 17:04 Mycophenolate Mofetil (Cellcept) 1,000 mg TID PO 01/10/20 21:00 01/20/20 08:23 Naltrexone HCl (Revia) 50 mg BID PO 01/10/20 09:00 01/10/20 22:33 DC 01/10/20 08:28 Naltrexone HCl (Revia) 50 mg BID PO 01/10/20 21:00 01/20/20 08:23 Olanzapine (ZyPREXA ZYDIS) 5 mg Q4HP PRN PO ANXIETY/AGITATION 01/11/20 16:45 01/19/20 16:55 DC 01/19/20 15:56 Omeprazole (PriLOSEC) 20 mg DAILY PO 01/10/20 09:00 01/10/20 22:33 DC 01/10/20 08:21 Omeprazole (PriLOSEC) 20 mg DAILY PO 01/11/20 09:00 01/20/20 08:23 Potassium Chloride (Micro-K Extencaps) 20 meq DAILY PO 01/10/20 09:00 01/10/20 22:33 DC 01/10/20 08:22 Potassium Chloride (Micro-K Extencaps) 20 meq DAILY PO 01/11/20 09:00 01/20/20 08:26 Pyridostigmine [place] (Mestinon) 90 mg QID PO 01/10/20 09:00 01/10/20 22:33 DC 01/10/20 17:02 Pyridostigmine [place] ([place]) 90 mg QID PO 01/10/20 21:00 01/20/20 08:25 Senna (Senokot) 2 tab QHSP PRN PO CONSTIPATION 01/10/20 22:45 Tamoxifen Citrate (Nolvadex) 20 mg DAILY PO 01/10/20 09:00 01/10/20 22:33 DC 01/10/20 08:31 Tamoxifen Citrate (Nolvadex) 20 mg DAILY PO 01/11/20 09:00 01/20/20 08:21 Thiamine HCl (Thiamine HCl) 100 mg BID PO 01/10/20 21:00 01/13/20 20:59 DC 01/13/20 08:03 Torsemide (Demadex) 20 mg DAILY PO 01/10/20 09:00 01/10/20 22:33 DC 01/10/20 08:22 Torsemide (Demadex) 20 mg DAILY PO 01/11/20 09:00 01/19/20 16:37 DC 01/19/20 08:05 Torsemide (Demadex) 40 mg DAILY PO 01/20/20 09:00 01/20/20 08:24 Trazodone HCl (Desyrel) 50 mg QHSP PRN PO INSOMNIA 01/10/20 20:30 Venlafaxine HCl (Effexor Xr) 225 mg DAILY PO 01/11/20 09:00 01/20/20 08:25 Venlafaxine HCl (Effexor) 225 mg DAILY PO 01/10/20 09:00 01/10/20 22:33 DC 01/10/20 08:28 Vitamin D (Vitamin D) 5,000 units DAILY PO 01/10/20 09:00 01/10/20 22:33 DC 01/10/20 08:20 Allergies Coded Allergies: amitriptyline (Verified Allergy, Severe, SWELLING, 11/29/19) Grass (Verified Allergy, Mild, ITCHY EYES,NOSE, 11/29/19) TAPE (Verified Allergy, Mild, RASH/BLISTER, 11/29/19) TREES (Verified Allergy, Mild, ITCHY EYES,NOSE, 11/29/19) adhesive (Verified Allergy, Unknown, 11/29/19) divalproex sodium (Verified Allergy, Unknown, 11/29/19) minocycline (Verified Allergy, Unknown, 11/29/19) mold (Verified Allergy, Unknown, 11/29/19) tetracycline (Verified Allergy, Unknown, 11/29/19) bupropion (Verified Adverse Reaction, Intermediate, ESOPHAGEAL SPASMS, 11/29/19) banana (Verified Adverse Reaction, Mild, VOMITING, 11/29/19) benztropine (Verified Adverse Reaction, Mild, BLURRED VISION, 11/29/19) clindamycin (Verified Adverse Reaction, Mild, HEART BURN, 11/29/19) gabapentin (Verified Adverse Reaction, Mild, extreme weakness, 11/29/19) metaxalone (Verified Adverse Reaction, Mild, itching, 11/29/19) pregabalin (Verified Adverse Reaction, Mild, EDEMA, 11/29/19) sulfamethoxazole (Verified Adverse Reaction, Mild, DIARRHEA, 11/29/19) tizanidine (Verified Adverse Reaction, Mild, ITCHING, 11/29/19) trazodone (Verified Adverse Reaction, Mild, EDEMA, 11/29/19) trimethoprim (Verified Adverse Reaction, Mild, DIARRHEA, 11/29/19) vilazodone (Verified Adverse Reaction, Mild, MOOD CHANGES, 11/29/19) cyclobenzaprine (Verified Adverse Reaction, Unknown, IRRITABILITY, 11/29/19) valproic acid (Unverified Adverse Reaction, Unknown, DOES NOT METABOLIZE, 11/29/19) MANJULA ALBRIGHT DO Jan 20, 2020 11:04
[2020-01-20 16:04] VITALS: BP 134/86
[2020-01-20] MEDS: MIRTAZAPINE 15 MG TAB PO SCH (20:51)
[2020-01-20] MEDS: cloZAPine 25 MG TAB (S0136) PO SCH (20:52)
[2020-01-20] MEDS: traZODone 50 MG TAB PO PRN (20:53)
[2020-01-20] MEDS ORDERED: cloZAPine 100 MG TAB (S0136) PO SCH (21:00)
[2020-01-21 06:46] VITALS: BP 142/98
[2020-01-21] MEDS: ACYCLOVIR 200 MG CAPSULE PO SCH ×2 (08:08→20:07)
[2020-01-21] MEDS: MELOXICAM (MOBIC) 7.5 MG TAB PO SCH (08:08)
[2020-01-21] MEDS: TORSEMIDE 20 MG TAB PO SCH (08:08)
[2020-01-21] MEDS: hydrOXYzine 50 MG TAB PO SCH ×2 (08:09→15:05)
[2020-01-21] MEDS: BACLOFEN 10 MG TAB PO SCH ×3 (08:09→20:07)
[2020-01-21] MEDS: VENLAFAXINE **XR** 75MG CAPSULE PO SCH (08:09)
[2020-01-21] MEDS: OMEPRAZOLE 20 MG CAP PO SCH (08:09)
[2020-01-21] MEDS: FOLIC ACID 1 MG TAB PO SCH (08:09)
[2020-01-21] MEDS: MULTIVITAMINS/MINERALS THERAP 1 TAB PO SCH (08:09)
[2020-01-21] MEDS: NALTREXONE 50 MG TAB PO SCH ×2 (08:09→20:06)
[2020-01-21] MEDS: OMEGA-3 1000MG CAPSULE PO SCH (08:10)
[2020-01-21] MEDS: acetaZOLAMIDE 500 MG ER CAP PO SCH ×2 (08:10→20:07)
[2020-01-21] MEDS: FLUoxetine 20 MG CAP PO SCH (08:10)
[2020-01-21] MEDS: PYRIDOSTIGMINE 60 MG TAB PO SCH ×4 (08:10→20:06)
[2020-01-21] MEDS: POTASSIUM CHLORIDE 10 MEQ SR TABLET PO SCH (08:11)
[2020-01-21] MEDS: DOCUSATE SODIUM 100MG CAPSULE PO SCH (08:11)
[2020-01-21] MEDS: BACITRACIN OINTMENT 30GM TUBE TOP SCH ×4 (08:12→20:07)
[2020-01-21] MEDS: MYCOPHENOLATE MOFETIL 250 MG CAP (J7517) PO SCH ×3 (08:12→20:07)
[2020-01-21] MEDS: TAMOXIFEN CITRATE 10 MG TAB PO SCH (09:29)
[2020-01-21] MEDS: hydrOXYzine 50 MG TAB PO PRN (17:26)
[2020-01-21] MEDS: traZODone 50 MG TAB PO PRN (20:06)
[2020-01-21] MEDS: MIRTAZAPINE 15 MG TAB PO SCH (20:06)
[2020-01-21] MEDS: cloZAPine 25 MG TAB (S0136) PO SCH (20:06)
[2020-01-22 06:38] VITALS: BP 152/98
[2020-01-22] MEDS: hydrOXYzine 50 MG TAB PO SCH ×2 (08:23→14:32)
[2020-01-22] MEDS: BACITRACIN OINTMENT 30GM TUBE TOP SCH ×3 (08:23→20:13)
[2020-01-22] MEDS: TAMOXIFEN CITRATE 10 MG TAB PO SCH (08:32)
[2020-01-22] MEDS: NALTREXONE 50 MG TAB PO SCH ×2 (08:34→20:13)
[2020-01-22] MEDS: PYRIDOSTIGMINE 60 MG TAB PO SCH ×4 (08:34→20:15)
[2020-01-22] MEDS: DOCUSATE SODIUM 100MG CAPSULE PO SCH (08:34)
[2020-01-22] MEDS: BACLOFEN 10 MG TAB PO SCH ×3 (08:34→20:13)
[2020-01-22] MEDS: VENLAFAXINE **XR** 75MG CAPSULE PO SCH (08:35)
[2020-01-22] MEDS: ACYCLOVIR 200 MG CAPSULE PO SCH ×2 (08:35→20:15)
[2020-01-22] MEDS: OMEGA-3 1000MG CAPSULE PO SCH (08:35)
[2020-01-22] MEDS: acetaZOLAMIDE 500 MG ER CAP PO SCH ×2 (08:35→20:16)
[2020-01-22] MEDS: MYCOPHENOLATE MOFETIL 250 MG CAP (J7517) PO SCH ×3 (08:35→20:15)
[2020-01-22] MEDS: MELOXICAM (MOBIC) 7.5 MG TAB PO SCH (08:35)
[2020-01-22] MEDS: MULTIVITAMINS/MINERALS THERAP 1 TAB PO SCH (08:36)
[2020-01-22] MEDS: FLUoxetine 20 MG CAP PO SCH (08:36)
[2020-01-22] MEDS: POTASSIUM CHLORIDE 10 MEQ SR TABLET PO SCH (08:36)
[2020-01-22] MEDS: OMEPRAZOLE 20 MG CAP PO SCH (08:36)
[2020-01-22] MEDS: TORSEMIDE 20 MG TAB PO SCH (08:36)
[2020-01-22] MEDS: FOLIC ACID 1 MG TAB PO SCH (08:36)
[2020-01-22] MEDS: PILL CUTTER 1 EACH XX PRN (16:33)
[2020-01-22 16:40] VITALS: BP 134/90
[2020-01-22] MEDS: hydrOXYzine 50 MG TAB PO PRN (18:24)
[2020-01-22] MEDS: cloZAPine 25 MG TAB (S0136) PO SCH (20:13)
[2020-01-22] MEDS: MIRTAZAPINE 15 MG TAB PO SCH (20:13)
[2020-01-23 06:48] VITALS: BP 150/87
[2020-01-23] MEDS: FLUoxetine 20 MG CAP PO SCH (08:03)
[2020-01-23] MEDS: acetaZOLAMIDE 500 MG ER CAP PO SCH ×2 (08:03→21:17)
[2020-01-23] MEDS: OMEGA-3 1000MG CAPSULE PO SCH (08:03)
[2020-01-23] MEDS: MULTIVITAMINS/MINERALS THERAP 1 TAB PO SCH (08:03)
[2020-01-23] MEDS: FOLIC ACID 1 MG TAB PO SCH (08:03)
[2020-01-23] MEDS: OMEPRAZOLE 20 MG CAP PO SCH (08:04)
[2020-01-23] MEDS: DOCUSATE SODIUM 100MG CAPSULE PO SCH (08:04)
[2020-01-23] MEDS: hydrOXYzine 50 MG TAB PO SCH ×2 (08:04→15:23)
[2020-01-23] MEDS: BACITRACIN OINTMENT 30GM TUBE TOP SCH ×3 (08:04→21:00)
[2020-01-23] MEDS: MELOXICAM (MOBIC) 7.5 MG TAB PO SCH (08:05)
[2020-01-23] MEDS: MYCOPHENOLATE MOFETIL 250 MG CAP (J7517) PO SCH ×3 (08:05→21:17)
[2020-01-23] MEDS: PYRIDOSTIGMINE 60 MG TAB PO SCH ×4 (08:05→21:16)
[2020-01-23] MEDS: ACYCLOVIR 200 MG CAPSULE PO SCH ×2 (08:05→21:17)
[2020-01-23] MEDS: POTASSIUM CHLORIDE 10 MEQ SR TABLET PO SCH (08:06)
[2020-01-23] MEDS: TORSEMIDE 20 MG TAB PO SCH (08:06)
[2020-01-23] MEDS: NALTREXONE 50 MG TAB PO SCH ×2 (08:06→21:16)
[2020-01-23] MEDS: BACLOFEN 10 MG TAB PO SCH ×3 (08:06→21:16)
[2020-01-23] MEDS: VENLAFAXINE **XR** 75MG CAPSULE PO SCH (08:07)
[2020-01-23] MEDS: TAMOXIFEN CITRATE 10 MG TAB PO SCH (08:07)
--- NOTE | 2020-01-23 10:13 | MHIPNPDOC ---
[facility] Progress Note Progress Note DATE OF SERVICE: 01/23/20 HPI: Mitra presents today for feeling increasingly depressed. She complains that her and child are not going to help with chores. Throughout the day, she claims to have constant thoughts about self mutilating. MEDICAL HISTORY: Patient reports of being in a one-to-one sitter due to self mutilation. Objective Appearance: Appears to be stated age. Well nourished. Well groomed. Mood: Dysthymic. Speech: Constricted. Thought Form: Linear and goal directed. Thought Content: Constant thoughts of self harm. Perception: No perceptual abnormalities noted. Assessment F33.2 Major depressive disorder, recurrent severe without psychotic features F60.3 Borderline personality disorder Plan Continue current medications. Continue one-to-one sitter due to self mutilating. Convert to voluntary today for longer stay as Patient is amenable; however, she may need even long-term or other treatment as she is still heavily depressed. Vital Signs Vital Signs Date Time Temp Pulse Resp B/P (MAP) Pulse Ox O2 Delivery O2 Flow Rate FiO2 01/23/20 06:48 98.1 83 12 150/87 (108) Room Air 01/20/20 06:53 98 Current Medications Current Medications Medications (Trade) Dose Ordered Sig/Ben Route PRN Reason Start Time Stop Time Status Last Admin Dose Admin Acetaminophen (Tylenol Tab) 650 mg Q6HP PRN PO HEADACHE or DISCOMFORT 01/10/20 20:30 01/16/20 08:52 Acetazolamide (Diamox Sequels) 500 mg BID PO 01/10/20 21:00 01/23/20 08:03 Acetazolamide (Diamox) 500 mg BID PO 01/10/20 09:00 01/10/20 22:33 DC 01/10/20 08:29 Acyclovir (Zovirax) 400 mg BID PO 01/10/20 09:00 01/10/20 22:33 DC 01/10/20 08:22 Acyclovir (Zovirax) 400 mg BID PO 01/10/20 21:00 01/23/20 08:05 Al Hydrox/Mg Hydrox/Simethicone (Mylanta) 30 ml Q4HP PRN PO HEARTBURN/INDIGESTION 01/10/20 20:30 Albuterol Sulfate (Proventil, Ventolin Hfa) 2 puff Q2HP PRN INH SHORTNESS OF BREATH 01/11/20 12:15 01/20/20 08:22 Bacitracin (Bacitracin Oint) apply to left arm lacerations TID TOP 01/11/20 21:00 01/22/20 20:13 Baclofen (Lioresal) 10 mg TID PO 01/16/20 16:00 01/23/20 08:06 Baclofen (Lioresal) 10 mg TIDP PRN PO MUSCLE SPASMS 01/10/20 22:45 01/16/20 11:38 DC 01/16/20 08:51 Clozapine (Clozaril) 100 mg QHS PO 01/10/20 21:00 01/20/20 17:14 DC 01/19/20 20:53 Clozapine (Clozaril) 125 mg QHS PO 01/20/20 21:00 01/22/20 20:13 Clozapine (Clozaril) 150 mg QHS PO 01/20/20 21:00 01/20/20 17:16 DC Docusate Sodium (Colace) 100 mg DAILY PO 01/11/20 09:00 01/23/20 08:04 Fish Oil ([place]-3 (1000mg)) 1 cap DAILY PO 01/10/20 09:00 01/10/20 22:33 DC 01/10/20 08:29 Fish Oil ([place]-3 (1000mg)) 1 cap DAILY PO 01/11/20 09:00 01/23/20 08:03 Fluoxetine HCl (PROzac) 20 mg DAILY PO 01/10/20 09:00 01/10/20 22:33 DC 01/10/20 08:22 Fluoxetine HCl (PROzac) 20 mg DAILY PO 01/11/20 09:00 01/12/20 12:40 DC 01/12/20 08:33 Fluoxetine HCl (PROzac) 30 mg DAILY PO 01/13/20 09:00 01/16/20 11:35 DC 01/16/20 08:50 Fluoxetine HCl (PROzac) 40 mg DAILY PO 01/17/20 09:00 01/23/20 08:03 Folic Acid (Folic Acid) 1 mg DAILY PO 01/10/20 09:00 01/10/20 20:27 DC 01/10/20 08:23 Folic Acid (Folic Acid) 1 mg DAILY PO 01/11/20 09:00 01/23/20 08:03 Folic Acid (Folic Acid) 1 mg DAILY PO 01/11/20 09:00 Cancel Home Med (Med Rec Complete!) ASDIRECTED XX 01/10/20 21:45 01/10/20 21:35 DC Hydroxyzine HCl (Atarax) 50 mg Q6HP PRN PO anxiety 01/19/20 17:00 01/22/20 18:24 Hydroxyzine HCl (Atarax) 50 mg QID PO 01/10/20 13:00 01/10/20 22:33 DC 01/10/20 17:03 Hydroxyzine HCl (Atarax) 50 mg QID PO 01/11/20 13:00 01/19/20 16:52 DC 01/19/20 15:53 Hydroxyzine HCl (Atarax) 50 mg QIDP PRN PO ANXIETY 01/10/20 22:45 01/11/20 12:19 DC 01/11/20 08:37 Hydroxyzine HCl (Atarax) 100 mg BID PO 01/19/20 21:00 01/20/20 11:16 DC 01/20/20 08:25 Hydroxyzine HCl (Atarax) 100 mg BID@0900,1500 PO 01/20/20 15:00 01/23/20 08:04 Lorazepam (Ativan) 2 mg ASDIRECTED PRN PO SEE PROTOCOL 01/10/20 20:30 01/11/20 16:44 DC Magnesium Hydroxide (Milk Of Magnesia) 30 ml DAILYPRN PRN PO CONSTIPATION 01/10/20 20:30 Meloxicam (Mobic) 15 mg DAILY PO 01/11/20 09:00 01/23/20 08:05 Mirtazapine (Remeron) 30 mg QHS PO 01/10/20 21:00 01/22/20 20:13 Miscellaneous (Unresolved Clarification Entry) SEE LABEL COMMENTS DAILY XX 01/15/20 09:00 01/15/20 11:17 DC Multivitamins (Theragram-M) 1 tab DAILY PO 01/11/20 09:00 01/23/20 08:03 Mycophenolate Mofetil (Cellcept) 500 mg TID PO 01/10/20 09:00 01/10/20 22:33 DC 01/10/20 17:04 Mycophenolate Mofetil (Cellcept) 1,000 mg TID PO 01/10/20 21:00 01/23/20 08:05 Naltrexone HCl (Revia) 50 mg BID PO 01/10/20 09:00 01/10/20 22:33 DC 01/10/20 08:28 Naltrexone HCl (Revia) 50 mg BID PO 01/10/20 21:00 01/23/20 08:06 Olanzapine (ZyPREXA ZYDIS) 5 mg Q4HP PRN PO ANXIETY/AGITATION 01/11/20 16:45 01/19/20 16:55 DC 01/19/20 15:56 Omeprazole (PriLOSEC) 20 mg DAILY PO 01/10/20 09:00 01/10/20 22:33 DC 01/10/20 08:21 Omeprazole (PriLOSEC) 20 mg DAILY PO 01/11/20 09:00 01/23/20 08:04 Potassium Chloride (Micro-K Extencaps) 20 meq DAILY PO 01/10/20 09:00 01/10/20 22:33 DC 01/10/20 08:22 Potassium Chloride (Micro-K Extencaps) 20 meq DAILY PO 01/11/20 09:00 01/23/20 08:06 Pyridostigmine [place] (Mestinon) 90 mg QID PO 01/10/20 09:00 01/10/20 22:33 DC 01/10/20 17:02 Pyridostigmine [place] ([place]) 90 mg QID PO 01/10/20 21:00 01/23/20 08:05 Senna (Senokot) 2 tab QHSP PRN PO CONSTIPATION 01/10/20 22:45 Tamoxifen Citrate (Nolvadex) 20 mg DAILY PO 01/10/20 09:00 01/10/20 22:33 DC 01/10/20 08:31 Tamoxifen Citrate (Nolvadex) 20 mg DAILY PO 01/11/20 09:00 01/23/20 08:07 Thiamine HCl (Thiamine HCl) 100 mg BID PO 01/10/20 21:00 01/13/20 20:59 DC 01/13/20 08:03 Torsemide (Demadex) 20 mg DAILY PO 01/10/20 09:00 01/10/20 22:33 DC 01/10/20 08:22 Torsemide (Demadex) 20 mg DAILY PO 01/11/20 09:00 01/19/20 16:37 DC 01/19/20 08:05 Torsemide (Demadex) 40 mg DAILY PO 01/20/20 09:00 01/23/20 08:06 Trazodone HCl (Desyrel) 50 mg QHSP PRN PO INSOMNIA 01/10/20 20:30 01/21/20 20:06 Venlafaxine HCl (Effexor Xr) 225 mg DAILY PO 01/11/20 09:00 01/23/20 08:07 Venlafaxine HCl (Effexor) 225 mg DAILY PO 01/10/20 09:00 01/10/20 22:33 DC 01/10/20 08:28 Vitamin D (Vitamin D) 5,000 units DAILY PO 01/10/20 09:00 01/10/20 22:33 DC 01/10/20 08:20 Allergies Coded Allergies: amitriptyline (Verified Allergy, Severe, SWELLING, 11/29/19) Grass (Verified Allergy, Mild, ITCHY EYES,NOSE, 11/29/19) TAPE (Verified Allergy, Mild, RASH/BLISTER, 11/29/19) TREES (Verified Allergy, Mild, ITCHY EYES,NOSE, 11/29/19) adhesive (Verified Allergy, Unknown, 11/29/19) divalproex sodium (Verified Allergy, Unknown, 11/29/19) minocycline (Verified Allergy, Unknown, 11/29/19) mold (Verified Allergy, Unknown, 11/29/19) tetracycline (Verified Allergy, Unknown, 11/29/19) bupropion (Verified Adverse Reaction, Intermediate, ESOPHAGEAL SPASMS, 11/29/19) banana (Verified Adverse Reaction, Mild, VOMITING, 11/29/19) benztropine (Verified Adverse Reaction, Mild, BLURRED VISION, 11/29/19) clindamycin (Verified Adverse Reaction, Mild, HEART BURN, 11/29/19) gabapentin (Verified Adverse Reaction, Mild, extreme weakness, 11/29/19) metaxalone (Verified Adverse Reaction, Mild, itching, 11/29/19) pregabalin (Verified Adverse Reaction, Mild, EDEMA, 11/29/19) sulfamethoxazole (Verified Adverse Reaction, Mild, DIARRHEA, 11/29/19) tizanidine (Verified Adverse Reaction, Mild, ITCHING, 11/29/19) trazodone (Verified Adverse Reaction, Mild, EDEMA, 11/29/19) trimethoprim (Verified Adverse Reaction, Mild, DIARRHEA, 11/29/19) vilazodone (Verified Adverse Reaction, Mild, MOOD CHANGES, 11/29/19) cyclobenzaprine (Verified Adverse Reaction, Unknown, IRRITABILITY, 11/29/19) valproic acid (Unverified Adverse Reaction, Unknown, DOES NOT METABOLIZE, 11/29/19) MANJULA ALBRIGHT DO Jan 23, 2020 10:13
[2020-01-23 18:03] VITALS: BP 139/89
[2020-01-23] MEDS: cloZAPine 25 MG TAB (S0136) PO SCH (21:16)
[2020-01-23] MEDS: MIRTAZAPINE 15 MG TAB PO SCH (21:16)
[2020-01-24 06:55] VITALS: BP 127/75
--- NOTE | 2020-01-24 08:01 | ECHO ---
DATE OF PROCEDURE: 01/20/2020 Age: 39 Gender: Female REFERRING PHYSICIAN: Dr. Berger INDICATION: Edema. MEASUREMENTS: 2D measurements: IVS 1.2 cm LV 4.6 cm LVPW 1.0 cm LA 3.7 cm Aorta 2.6 cm IVC 1.7 cm DOPPLER MEASURMENTS: Peak velocity across the aortic valve 1.6 meters per second Peak velocity across the LVOT 1.3 meters per second Peak gradient across the aortic valve 10 mmHg Mean gradient across the aortic valve 6 mmHg Mitral E 0.75, mitral A 0.84 with ratio of 0.9 Maximum tricuspid jet velocity 2.3 meters per second 2D COMMENTS: 1. Normal left ventricular size, wall thickness and normal global left ventricular systolic function The estimated left ventricular systolic ejection fraction is 60 to 65%. 2. Normal left atrium, normal right atrium and right ventricle. 3. The atrial septum appear to be normal without evidence of defect or shunt. 4. Normal aortic root. 5. No pericardial effusion seen. 6. Mildly calcified aortic valve. Leaflet excursion appear to be normal. Normal mitral valve, tricuspid valve and pulmonic valve. The proximal pulmonary artery branches appear to be normal in limited views. 7. The inferior vena cava is normal in size. Central venous pressure is most likely normal. DOPPLER: It detects mild mitral regurgitation and mild tricuspid regurgitation. The calculated pulmonary artery systolic pressure varies between 30 to 40 mmHg. Abnormal relaxation pattern was noted across the mitral valve leaflets, as well as the mitral valve annulus consistent with features of grade 1 left ventricular diastolic dysfunction. IMPRESSION: 1. Normal global left ventricular systolic function. There are features of grade 1 left ventricular diastolic function manifested by abnormal relaxation. 2. Aortic valve sclerosis with trivial aortic stenosis, but no aortic regurgitation. 3. Mild mitral regurgitation. 4. Trace to mild tricuspid regurgitation with probably mild pulmonary hypertension. 5. This was compared with prior echocardiogram on 10/13/2017, more mitral regurgitation was detected at that time and the gradient across the aortic valve was slightly higher. MTDD
[2020-01-24] MEDS: BACITRACIN OINTMENT 30GM TUBE TOP SCH ×3 (09:00→20:35)
[2020-01-24] MEDS: FOLIC ACID 1 MG TAB PO SCH (09:54)
[2020-01-24] MEDS: FLUoxetine 20 MG CAP PO SCH (09:54)
[2020-01-24] MEDS: MELOXICAM (MOBIC) 7.5 MG TAB PO SCH (09:54)
[2020-01-24] MEDS: OMEPRAZOLE 20 MG CAP PO SCH (09:54)
[2020-01-24] MEDS: MYCOPHENOLATE MOFETIL 250 MG CAP (J7517) PO SCH ×3 (09:55→20:35)
[2020-01-24] MEDS: POTASSIUM CHLORIDE 10 MEQ SR TABLET PO SCH (09:55)
[2020-01-24] MEDS: TORSEMIDE 20 MG TAB PO SCH (09:55)
[2020-01-24] MEDS: VENLAFAXINE **XR** 75MG CAPSULE PO SCH (09:55)
[2020-01-24] MEDS: BACLOFEN 10 MG TAB PO SCH ×3 (09:56→20:33)
[2020-01-24] MEDS: DOCUSATE SODIUM 100MG CAPSULE PO SCH (09:56)
[2020-01-24] MEDS: hydrOXYzine 50 MG TAB PO SCH ×2 (09:56→15:12)
[2020-01-24] MEDS: acetaZOLAMIDE 500 MG ER CAP PO SCH ×2 (09:56→20:33)
[2020-01-24] MEDS: NALTREXONE 50 MG TAB PO SCH ×2 (09:56→20:33)
[2020-01-24] MEDS: TAMOXIFEN CITRATE 10 MG TAB PO SCH (09:56)
[2020-01-24] MEDS: PYRIDOSTIGMINE 60 MG TAB PO SCH ×4 (09:56→20:32)
[2020-01-24] MEDS: MULTIVITAMINS/MINERALS THERAP 1 TAB PO SCH (09:56)
[2020-01-24] MEDS: OMEGA-3 1000MG CAPSULE PO SCH (09:56)
[2020-01-24] MEDS: ACYCLOVIR 200 MG CAPSULE PO SCH ×2 (09:57→20:33)
[2020-01-24] MEDS: hydrOXYzine 50 MG TAB PO PRN (12:58)
[2020-01-24] MEDS ORDERED: hydrOXYzine 50 MG TAB PO ONE (17:30)
[2020-01-24 17:57] VITALS: BP 132/82
[2020-01-24] MEDS: traZODone 50 MG TAB PO PRN (20:32)
[2020-01-24] MEDS: MIRTAZAPINE 15 MG TAB PO SCH (20:32)
[2020-01-24] MEDS: cloZAPine 25 MG TAB (S0136) PO SCH (20:33)
[2020-01-25 07:00] VITALS: BP 147/82
[2020-01-25] MEDS: hydrOXYzine 50 MG TAB PO SCH ×2 (08:16→14:50)
[2020-01-25] MEDS: FOLIC ACID 1 MG TAB PO SCH (08:17)
[2020-01-25] MEDS: TORSEMIDE 20 MG TAB PO SCH (08:17)
[2020-01-25] MEDS: POTASSIUM CHLORIDE 10 MEQ SR TABLET PO SCH (08:17)
[2020-01-25] MEDS: FLUoxetine 20 MG CAP PO SCH (08:17)
[2020-01-25] MEDS: acetaZOLAMIDE 500 MG ER CAP PO SCH ×2 (08:18→20:08)
[2020-01-25] MEDS: MYCOPHENOLATE MOFETIL 250 MG CAP (J7517) PO SCH ×3 (08:18→20:09)
[2020-01-25] MEDS: MULTIVITAMINS/MINERALS THERAP 1 TAB PO SCH (08:18)
[2020-01-25] MEDS: VENLAFAXINE **XR** 75MG CAPSULE PO SCH (08:18)
[2020-01-25] MEDS: OMEPRAZOLE 20 MG CAP PO SCH (08:19)
[2020-01-25] MEDS: DOCUSATE SODIUM 100MG CAPSULE PO SCH (08:19)
[2020-01-25] MEDS: BACLOFEN 10 MG TAB PO SCH ×3 (08:19→20:09)
[2020-01-25] MEDS: NALTREXONE 50 MG TAB PO SCH ×2 (08:19→20:08)
[2020-01-25] MEDS: PYRIDOSTIGMINE 60 MG TAB PO SCH ×4 (08:20→20:09)
[2020-01-25] MEDS: ACYCLOVIR 200 MG CAPSULE PO SCH ×2 (08:20→20:08)
[2020-01-25] MEDS: OMEGA-3 1000MG CAPSULE PO SCH (08:20)
[2020-01-25] MEDS: TAMOXIFEN CITRATE 10 MG TAB PO SCH (09:00)
[2020-01-25] MEDS: BACITRACIN OINTMENT 30GM TUBE TOP SCH ×3 (09:00→20:12)
--- NOTE | 2020-01-25 10:42 | MHIPNPDOC ---
[facility] Progress Note Progress Note DATE OF SERVICE: 01/25/20 Subjective HPI: Mitra presents today for a mental health check-up. Patient reports feeling frustrated and irritable. She notes she does not feel as weighed down by it though and says the suicidal thoughts have lessened. Patient confirms she has had self-mutilations since she has been on the sitter. She states she has been cutting. She reports she has gone to all the group sessions. Objective Mood: Constricted. Dysthymic. Thought Form: Associations intact. Linear and goal directed. Thought Content: No evidence of aggressive or homicidal ideation. No evidence of delusions. Reports improved suicidal thoughts with self-mutilation. Judgement: Poor. Insight: Poor. Assessment F33.2 Major depressive disorder, recurrent severe without psychotic features F60.3 Borderline personality disorder Plan Increase clozapine by another 25 milligrams. Will draw a CBC with differential to further ascertain if she has neutropenia. Will follow closely. Vital Signs Vital Signs Date Time Temp Pulse Resp B/P (MAP) Pulse Ox O2 Delivery O2 Flow Rate FiO2 01/25/20 07:00 97.8 86 15 147/82 (103) 100 Room Air Current Medications Current Medications Medications (Trade) Dose Ordered Sig/Ben Route PRN Reason Start Time Stop Time Status Last Admin Dose Admin Acetaminophen (Tylenol Tab) 650 mg Q6HP PRN PO HEADACHE or DISCOMFORT 01/10/20 20:30 01/16/20 08:52 Acetazolamide (Diamox Sequels) 500 mg BID PO 01/10/20 21:00 01/25/20 08:18 Acetazolamide (Diamox) 500 mg BID PO 01/10/20 09:00 01/10/20 22:33 DC 01/10/20 08:29 Acyclovir (Zovirax) 400 mg BID PO 01/10/20 09:00 01/10/20 22:33 DC 01/10/20 08:22 Acyclovir (Zovirax) 400 mg BID PO 01/10/20 21:00 01/25/20 08:20 Al Hydrox/Mg Hydrox/Simethicone (Mylanta) 30 ml Q4HP PRN PO HEARTBURN/INDIGESTION 01/10/20 20:30 Albuterol Sulfate (Proventil, Ventolin Hfa) 2 puff Q2HP PRN INH SHORTNESS OF BREATH 01/11/20 12:15 01/20/20 08:22 Bacitracin (Bacitracin Oint) apply to left arm lacerations TID TOP 01/11/20 21:00 01/22/20 20:13 Baclofen (Lioresal) 10 mg TID PO 01/16/20 16:00 01/25/20 08:19 Baclofen (Lioresal) 10 mg TIDP PRN PO MUSCLE SPASMS 01/10/20 22:45 01/16/20 11:38 DC 01/16/20 08:51 Clozapine (Clozaril) 100 mg QHS PO 01/10/20 21:00 01/20/20 17:14 DC 01/19/20 20:53 Clozapine (Clozaril) 125 mg QHS PO 01/20/20 21:00 01/24/20 20:33 Clozapine (Clozaril) 150 mg QHS PO 01/20/20 21:00 01/20/20 17:16 DC Docusate Sodium (Colace) 100 mg DAILY PO 01/11/20 09:00 01/25/20 08:19 Fish Oil ([place]-3 (1000mg)) 1 cap DAILY PO 01/10/20 09:00 01/10/20 22:33 DC 01/10/20 08:29 Fish Oil ([place]-3 (1000mg)) 1 cap DAILY PO 01/11/20 09:00 01/25/20 08:20 Fluoxetine HCl (PROzac) 20 mg DAILY PO 01/10/20 09:00 01/10/20 22:33 DC 01/10/20 08:22 Fluoxetine HCl (PROzac) 20 mg DAILY PO 01/11/20 09:00 01/12/20 12:40 DC 01/12/20 08:33 Fluoxetine HCl (PROzac) 30 mg DAILY PO 01/13/20 09:00 01/16/20 11:35 DC 01/16/20 08:50 Fluoxetine HCl (PROzac) 40 mg DAILY PO 01/17/20 09:00 01/25/20 08:17 Folic Acid (Folic Acid) 1 mg DAILY PO 01/10/20 09:00 01/10/20 20:27 DC 01/10/20 08:23 Folic Acid (Folic Acid) 1 mg DAILY PO 01/11/20 09:00 01/25/20 08:17 Folic Acid (Folic Acid) 1 mg DAILY PO 01/11/20 09:00 Cancel Home Med (Med Rec Complete!) ASDIRECTED XX 01/10/20 21:45 01/10/20 21:35 DC Hydroxyzine HCl (Atarax) 50 mg Q6HP PRN PO anxiety 01/19/20 17:00 01/24/20 14:12 DC 01/24/20 12:58 Hydroxyzine HCl (Atarax) 50 mg QID PO 01/10/20 13:00 01/10/20 22:33 DC 01/10/20 17:03 Hydroxyzine HCl (Atarax) 50 mg QID PO 01/11/20 13:00 01/19/20 16:52 DC 01/19/20 15:53 Hydroxyzine HCl (Atarax) 50 mg QIDP PRN PO ANXIETY 01/10/20 22:45 01/11/20 12:19 DC 01/11/20 08:37 Hydroxyzine HCl (Atarax) 100 mg BID PO 01/19/20 21:00 01/20/20 11:16 DC 01/20/20 08:25 Hydroxyzine HCl (Atarax) 100 mg BID@0900,1500 PO 01/20/20 15:00 01/25/20 08:16 Lorazepam (Ativan) 2 mg ASDIRECTED PRN PO SEE PROTOCOL 01/10/20 20:30 01/11/20 16:44 DC Magnesium Hydroxide (Milk Of Magnesia) 30 ml DAILYPRN PRN PO CONSTIPATION 01/10/20 20:30 Meloxicam (Mobic) 15 mg DAILY PO 01/11/20 09:00 01/24/20 09:54 Mirtazapine (Remeron) 30 mg QHS PO 01/10/20 21:00 01/24/20 20:32 Miscellaneous (Unresolved Clarification Entry) SEE LABEL COMMENTS DAILY XX 01/15/20 09:00 01/15/20 11:17 DC Multivitamins (Theragram-M) 1 tab DAILY PO 01/11/20 09:00 01/25/20 08:18 Mycophenolate Mofetil (Cellcept) 500 mg TID PO 01/10/20 09:00 01/10/20 22:33 DC 01/10/20 17:04 Mycophenolate Mofetil (Cellcept) 1,000 mg TID PO 01/10/20 21:00 01/25/20 08:18 Naltrexone HCl (Revia) 50 mg BID PO 01/10/20 09:00 01/10/20 22:33 DC 01/10/20 08:28 Naltrexone HCl (Revia) 50 mg BID PO 01/10/20 21:00 01/25/20 08:19 Olanzapine (ZyPREXA ZYDIS) 5 mg Q4HP PRN PO ANXIETY/AGITATION 01/11/20 16:45 01/19/20 16:55 DC 01/19/20 15:56 Omeprazole (PriLOSEC) 20 mg DAILY PO 01/10/20 09:00 01/10/20 22:33 DC 01/10/20 08:21 Omeprazole (PriLOSEC) 20 mg DAILY PO 01/11/20 09:00 01/25/20 08:19 Potassium Chloride (Micro-K Extencaps) 20 meq DAILY PO 01/10/20 09:00 01/10/20 22:33 DC 01/10/20 08:22 Potassium Chloride (Micro-K Extencaps) 20 meq DAILY PO 01/11/20 09:00 01/25/20 08:17 Pyridostigmine [place] (Mestinon) 90 mg QID PO 01/10/20 09:00 01/10/20 22:33 DC 01/10/20 17:02 Pyridostigmine [place] (Mest[place]on) 90 mg QID PO 01/10/20 21:00 01/25/20 08:20 Senna (Senokot) 2 tab QHSP PRN PO CONSTIPATION 01/10/20 22:45 Tamoxifen Citrate (Nolvadex) 20 mg DAILY PO 01/10/20 09:00 01/10/20 22:33 DC 01/10/20 08:31 Tamoxifen Citrate (Nolvadex) 20 mg DAILY PO 01/11/20 09:00 01/24/20 09:56 Thiamine HCl (Thiamine HCl) 100 mg BID PO 01/10/20 21:00 01/13/20 20:59 DC 01/13/20 08:03 Torsemide (Demadex) 20 mg DAILY PO 01/10/20 09:00 01/10/20 22:33 DC 01/10/20 08:22 Torsemide (Demadex) 20 mg DAILY PO 01/11/20 09:00 01/19/20 16:37 DC 01/19/20 08:05 Torsemide (Demadex) 40 mg DAILY PO 01/20/20 09:00 01/25/20 08:17 Trazodone HCl (Desyrel) 50 mg QHSP PRN PO INSOMNIA 01/10/20 20:30 01/24/20 20:32 Venlafaxine HCl (Effexor Xr) 225 mg DAILY PO 01/11/20 09:00 01/25/20 08:18 Venlafaxine HCl (Effexor) 225 mg DAILY PO 01/10/20 09:00 01/10/20 22:33 DC 01/10/20 08:28 Vitamin D (Vitamin D) 5,000 units DAILY PO 01/10/20 09:00 01/10/20 22:33 DC 01/10/20 08:20 Allergies Coded Allergies: amitriptyline (Verified Allergy, Severe, SWELLING, 11/29/19) Grass (Verified Allergy, Mild, ITCHY EYES,NOSE, 11/29/19) TAPE (Verified Allergy, Mild, RASH/BLISTER, 11/29/19) TREES (Verified Allergy, Mild, ITCHY EYES,NOSE, 11/29/19) adhesive (Verified Allergy, Unknown, 11/29/19) divalproex sodium (Verified Allergy, Unknown, 11/29/19) minocycline (Verified Allergy, Unknown, 11/29/19) mold (Verified Allergy, Unknown, 11/29/19) tetracycline (Verified Allergy, Unknown, 11/29/19) bupropion (Verified Adverse Reaction, Intermediate, ESOPHAGEAL SPASMS, 11/29/19) banana (Verified Adverse Reaction, Mild, VOMITING, 11/29/19) benztropine (Verified Adverse Reaction, Mild, BLURRED VISION, 11/29/19) clindamycin (Verified Adverse Reaction, Mild, HEART BURN, 11/29/19) gabapentin (Verified Adverse Reaction, Mild, extreme weakness, 11/29/19) metaxalone (Verified Adverse Reaction, Mild, itching, 11/29/19) pregabalin (Verified Adverse Reaction, Mild, EDEMA, 11/29/19) sulfamethoxazole (Verified Adverse Reaction, Mild, DIARRHEA, 11/29/19) tizanidine (Verified Adverse Reaction, Mild, ITCHING, 11/29/19) trazodone (Verified Adverse Reaction, Mild, EDEMA, 11/29/19) trimethoprim (Verified Adverse Reaction, Mild, DIARRHEA, 11/29/19) vilazodone (Verified Adverse Reaction, Mild, MOOD CHANGES, 11/29/19) cyclobenzaprine (Verified Adverse Reaction, Unknown, IRRITABILITY, 11/29/19) valproic acid (Unverified Adverse Reaction, Unknown, DOES NOT METABOLIZE, 11/29/19) MANJULA ALBRIGHT DO Jan 25, 2020 10:42
[2020-01-25] MEDS: MELOXICAM (MOBIC) 7.5 MG TAB PO SCH (10:48)
[2020-01-25] MEDS ORDERED: PILL CUTTER 1 EACH XX PRN (12:00)
[2020-01-25 12:34] LABS: BASO # 0.1 10^3/uL (0.0-0.2); BASO % 0.9 % (0.0-1.0); EOS # 0.4 10^3/uL (0.0-0.5); HEMATOCRIT 40.5 % (36.0-47.0); HEMOGLOBIN 12.8 g/dl (12.0-15.5); LYMPH % 17.2 % (24.0-44.0); MEAN CORPUSCULAR HEMOGLOBIN 27.6 pg (27.0-33.0); MEAN CORPUSCULAR HGB CONC 31.6 g/dl (32.0-36.5); MEAN CORPUSCULAR VOLUME 87.5 fl (80.0-96.0); MONO # 0.5 10^3/uL (0.0-0.8); MONO % 8.9 % (0.0-5.0); NEUTROPHILS # 3.7 10^3/uL (1.5-8.5); NEUTROPHILS % 65.5 % (36.0-66.0); PLATELET COUNT, AUTOMATED 232 10^3/uL (150-450); RED BLOOD COUNT 4.63 10^6/uL (4.00-5.40); WHITE BLOOD COUNT 5.6 10^3/uL (4.0-10.0)
[2020-01-25 18:00] VITALS: BP 125/77
[2020-01-25] MEDS: MIRTAZAPINE 15 MG TAB PO SCH (20:08)
[2020-01-25] MEDS: traZODone 50 MG TAB PO PRN (20:09)
[2020-01-25] MEDS: cloZAPine 100 MG TAB (S0136) PO SCH (20:09)
[2020-01-25] MEDS: PILL CUTTER 1 EACH XX PRN (20:13)
[2020-01-26 06:13] VITALS: BP 118/72
[2020-01-26] MEDS: MULTIVITAMINS/MINERALS THERAP 1 TAB PO SCH (08:08)
[2020-01-26] MEDS: OMEPRAZOLE 20 MG CAP PO SCH (08:08)
[2020-01-26] MEDS: BACLOFEN 10 MG TAB PO SCH ×3 (08:08→21:25)
[2020-01-26] MEDS: MYCOPHENOLATE MOFETIL 250 MG CAP (J7517) PO SCH ×3 (08:08→21:27)
[2020-01-26] MEDS: TAMOXIFEN CITRATE 10 MG TAB PO SCH (08:08)
[2020-01-26] MEDS: MELOXICAM (MOBIC) 7.5 MG TAB PO SCH (08:08)
[2020-01-26] MEDS: NALTREXONE 50 MG TAB PO SCH ×2 (08:08→21:26)
[2020-01-26] MEDS: ACYCLOVIR 200 MG CAPSULE PO SCH ×2 (08:09→21:25)
[2020-01-26] MEDS: DOCUSATE SODIUM 100MG CAPSULE PO SCH (08:09)
[2020-01-26] MEDS: FOLIC ACID 1 MG TAB PO SCH (08:09)
[2020-01-26] MEDS: FLUoxetine 20 MG CAP PO SCH (08:09)
[2020-01-26] MEDS: POTASSIUM CHLORIDE 10 MEQ SR TABLET PO SCH (08:09)
[2020-01-26] MEDS: hydrOXYzine 50 MG TAB PO SCH ×2 (08:09→15:51)
[2020-01-26] MEDS: PYRIDOSTIGMINE 60 MG TAB PO SCH ×4 (08:09→21:26)
[2020-01-26] MEDS: VENLAFAXINE **XR** 75MG CAPSULE PO SCH (08:10)
[2020-01-26] MEDS: OMEGA-3 1000MG CAPSULE PO SCH (08:10)
[2020-01-26] MEDS: acetaZOLAMIDE 500 MG ER CAP PO SCH ×2 (08:10→21:26)
[2020-01-26] MEDS: TORSEMIDE 20 MG TAB PO SCH (08:10)
[2020-01-26] MEDS: BACITRACIN OINTMENT 30GM TUBE TOP SCH ×3 (09:00→21:00)
--- NOTE | 2020-01-26 11:04 | MHIPNPDOC ---
[facility] Progress Note Progress Note DATE OF SERVICE: 01/26/20 HPI: Mitra presents today for a follow up in an inpatient mental health unit. She states that it is too hard to do the group activities because of her energy decrease. She notes that she is having a suicidal thought currently. Her thoughts about self harm and cutting are the same. She reports that her and mother do not want her to take her medication, and it is stressful for her because she does not want to lie to them about her taking it. Objective Behavior: Cooperative with good eye contact. Pleasant. Engaged. Fair. Affect: Constricted. Mood: Dysthymic. Speech: Slow and tired. Thought Content: No evidence of delusions. No thoughts of self harm. Reports suicidal thoughts. No evidence of aggressive or homicidal ideation. Judgement: Poor to fair. Insight: Poor to fair. Assessment F33.2 Major depressive disorder, recurrent severe without psychotic features Plan Trial a stimulant. Tomorrow well do EKG. Today to determine if she has an appropriate QTC. Discuss the risks and benefits of off-label stimulant use as she is quite tired medically. Her condition and use of aromatase inhibitors could be causing it; however, she may very well need this. We'll continue 1-to-1 as she's still quite risky for suicide. Vital Signs Vital Signs Date Time Temp Pulse Resp B/P (MAP) Pulse Ox O2 Delivery O2 Flow Rate FiO2 01/26/20 06:13 97.7 84 16 118/72 (87) 01/25/20 07:00 100 Room Air Laboratory Data 24H Labs Laboratory Tests 2 01/25/20 12:11: Immature Granulocyte % (Auto) 0.5, Neutrophils (%) (Auto) 65.5, Lymphocytes (%) (Auto) 17.2L, Monocytes (%) (Auto) 8.9H, Eosinophils (%) (Auto) 7.0H, Basophils (%) (Auto) 0.9, Neutrophils # (Auto) 3.7, Lymphocytes # (Auto) 1.0L, Monocytes # (Auto) 0.5, Eosinophils # (Auto) 0.4, Basophils # (Auto) 0.1, Nucleated Red Blood Cells % (auto) 0.0 CBC/BMP Laboratory Tests 01/25/20 12:11 Current Medications Current Medications Medications (Trade) Dose Ordered Sig/Ben Route PRN Reason Start Time Stop Time Status Last Admin Dose Admin Acetaminophen (Tylenol Tab) 650 mg Q6HP PRN PO HEADACHE or DISCOMFORT 01/10/20 20:30 01/16/20 08:52 Acetazolamide (Diamox Sequels) 500 mg BID PO 01/10/20 21:00 01/26/20 08:10 Acetazolamide (Diamox) 500 mg BID PO 01/10/20 09:00 01/10/20 22:33 DC 01/10/20 08:29 Acyclovir (Zovirax) 400 mg BID PO 01/10/20 09:00 01/10/20 22:33 DC 01/10/20 08:22 Acyclovir (Zovirax) 400 mg BID PO 01/10/20 21:00 01/26/20 08:09 Al Hydrox/Mg Hydrox/Simethicone (Mylanta) 30 ml Q4HP PRN PO HEARTBURN/INDIGESTION 01/10/20 20:30 Albuterol Sulfate (Proventil, Ventolin Hfa) 2 puff Q2HP PRN INH SHORTNESS OF BREATH 01/11/20 12:15 01/20/20 08:22 Bacitracin (Bacitracin Oint) apply to left arm lacerations TID TOP 01/11/20 21:00 01/22/20 20:13 Baclofen (Lioresal) 10 mg TID PO 01/16/20 16:00 01/26/20 08:08 Baclofen (Lioresal) 10 mg TIDP PRN PO MUSCLE SPASMS 01/10/20 22:45 01/16/20 11:38 DC 01/16/20 08:51 Clozapine (Clozaril) 100 mg QHS PO 01/10/20 21:00 01/20/20 17:14 DC 01/19/20 20:53 Clozapine (Clozaril) 125 mg QHS PO 01/20/20 21:00 01/25/20 11:52 DC 01/24/20 20:33 Clozapine (Clozaril) 150 mg QHS PO 01/20/20 21:00 01/20/20 17:16 DC Clozapine (Clozaril) 150 mg QHS PO 01/25/20 21:00 01/25/20 20:09 Docusate Sodium (Colace) 100 mg DAILY PO 01/11/20 09:00 01/26/20 08:09 Fish Oil ([place]-3 (1000mg)) 1 cap DAILY PO 01/10/20 09:00 01/10/20 22:33 DC 01/10/20 08:29 Fish Oil ([place]-3 (1000mg)) 1 cap DAILY PO 01/11/20 09:00 01/26/20 08:10 Fluoxetine HCl (PROzac) 20 mg DAILY PO 01/10/20 09:00 01/10/20 22:33 DC 01/10/20 08:22 Fluoxetine HCl (PROzac) 20 mg DAILY PO 01/11/20 09:00 01/12/20 12:40 DC 01/12/20 08:33 Fluoxetine HCl (PROzac) 30 mg DAILY PO 01/13/20 09:00 01/16/20 11:35 DC 01/16/20 08:50 Fluoxetine HCl (PROzac) 40 mg DAILY PO 01/17/20 09:00 01/26/20 08:09 Folic Acid (Folic Acid) 1 mg DAILY PO 01/10/20 09:00 01/10/20 20:27 DC 01/10/20 08:23 Folic Acid (Folic Acid) 1 mg DAILY PO 01/11/20 09:00 01/26/20 08:09 Folic Acid (Folic Acid) 1 mg DAILY PO 01/11/20 09:00 Cancel Home Med (Med Rec Complete!) ASDIRECTED XX 01/10/20 21:45 01/10/20 21:35 DC Hydroxyzine HCl (Atarax) 50 mg Q6HP PRN PO anxiety 01/19/20 17:00 01/24/20 14:12 DC 01/24/20 12:58 Hydroxyzine HCl (Atarax) 50 mg QID PO 01/10/20 13:00 01/10/20 22:33 DC 01/10/20 17:03 Hydroxyzine HCl (Atarax) 50 mg QID PO 01/11/20 13:00 01/19/20 16:52 DC 01/19/20 15:53 Hydroxyzine HCl (Atarax) 50 mg QIDP PRN PO ANXIETY 01/10/20 22:45 01/11/20 12:19 DC 01/11/20 08:37 Hydroxyzine HCl (Atarax) 100 mg BID PO 01/19/20 21:00 01/20/20 11:16 DC 01/20/20 08:25 Hydroxyzine HCl (Atarax) 100 mg BID@0900,1500 PO 01/20/20 15:00 01/26/20 08:09 Lorazepam (Ativan) 2 mg ASDIRECTED PRN PO SEE PROTOCOL 01/10/20 20:30 01/11/20 16:44 DC Magnesium Hydroxide (Milk Of Magnesia) 30 ml DAILYPRN PRN PO CONSTIPATION 01/10/20 20:30 Meloxicam (Mobic) 15 mg DAILY PO 01/11/20 09:00 01/26/20 08:08 Mirtazapine (Remeron) 30 mg QHS PO 01/10/20 21:00 01/25/20 20:08 Miscellaneous (Unresolved Clarification Entry) SEE LABEL COMMENTS DAILY XX 01/15/20 09:00 01/15/20 11:17 DC Multivitamins (Theragram-M) 1 tab DAILY PO 01/11/20 09:00 01/26/20 08:08 Mycophenolate Mofetil (Cellcept) 500 mg TID PO 01/10/20 09:00 01/10/20 22:33 DC 01/10/20 17:04 Mycophenolate Mofetil (Cellcept) 1,000 mg TID PO 01/10/20 21:00 01/26/20 08:08 Naltrexone HCl (Revia) 50 mg BID PO 01/10/20 09:00 01/10/20 22:33 DC 01/10/20 08:28 Naltrexone HCl (Revia) 50 mg BID PO 01/10/20 21:00 01/26/20 08:08 Olanzapine (ZyPREXA ZYDIS) 5 mg Q4HP PRN PO ANXIETY/AGITATION 01/11/20 16:45 01/19/20 16:55 DC 01/19/20 15:56 Omeprazole (PriLOSEC) 20 mg DAILY PO 01/10/20 09:00 01/10/20 22:33 DC 01/10/20 08:21 Omeprazole (PriLOSEC) 20 mg DAILY PO 01/11/20 09:00 01/26/20 08:08 Potassium Chloride (Micro-K Extencaps) 20 meq DAILY PO 01/10/20 09:00 01/10/20 22:33 DC 01/10/20 08:22 Potassium Chloride (Micro-K Extencaps) 20 meq DAILY PO 01/11/20 09:00 01/26/20 08:09 Pyridostigmine [place] (Mestinon) 90 mg QID PO 01/10/20 09:00 01/10/20 22:33 DC 01/10/20 17:02 Pyridostigmine [place] ([place]) 90 mg QID PO 01/10/20 21:00 01/26/20 08:09 Senna (Senokot) 2 tab QHSP PRN PO CONSTIPATION 01/10/20 22:45 Tamoxifen Citrate (Nolvadex) 20 mg DAILY PO 01/10/20 09:00 01/10/20 22:33 DC 01/10/20 08:31 Tamoxifen Citrate (Nolvadex) 20 mg DAILY PO 01/11/20 09:00 01/26/20 08:08 Thiamine HCl (Thiamine HCl) 100 mg BID PO 01/10/20 21:00 01/13/20 20:59 DC 01/13/20 08:03 Torsemide (Demadex) 20 mg DAILY PO 01/10/20 09:00 01/10/20 22:33 DC 01/10/20 08:22 Torsemide (Demadex) 20 mg DAILY PO 01/11/20 09:00 01/19/20 16:37 DC 01/19/20 08:05 Torsemide (Demadex) 40 mg DAILY PO 01/20/20 09:00 01/26/20 08:10 Trazodone HCl (Desyrel) 50 mg QHSP PRN PO INSOMNIA 01/10/20 20:30 01/25/20 20:09 Venlafaxine HCl (Effexor Xr) 225 mg DAILY PO 01/11/20 09:00 01/26/20 08:10 Venlafaxine HCl (Effexor) 225 mg DAILY PO 01/10/20 09:00 01/10/20 22:33 DC 01/10/20 08:28 Vitamin D (Vitamin D) 5,000 units DAILY PO 01/10/20 09:00 01/10/20 22:33 DC 01/10/20 08:20 Allergies Coded Allergies: amitriptyline (Verified Allergy, Severe, SWELLING, 9/8/20) Grass (Verified Allergy, Mild, ITCHY EYES,NOSE, 11/29/19) TAPE (Verified Allergy, Mild, RASH/BLISTER, 11/29/19) TREES (Verified Allergy, Mild, ITCHY EYES,NOSE, 11/29/19) adhesive (Verified Allergy, Unknown, 11/29/19) divalproex sodium (Verified Allergy, Unknown, 11/29/19) minocycline (Verified Allergy, Unknown, 11/29/19) mold (Verified Allergy, Unknown, 11/29/19) tetracycline (Verified Allergy, Unknown, 11/29/19) bupropion (Verified Adverse Reaction, Intermediate, ESOPHAGEAL SPASMS, 11/29/19) banana (Verified Adverse Reaction, Mild, VOMITING, 11/29/19) benztropine (Verified Adverse Reaction, Mild, BLURRED VISION, 11/29/19) clindamycin (Verified Adverse Reaction, Mild, HEART BURN, 11/29/19) gabapentin (Verified Adverse Reaction, Mild, extreme weakness, 11/29/19) metaxalone (Verified Adverse Reaction, Mild, itching, 11/29/19) pregabalin (Verified Adverse Reaction, Mild, EDEMA, 11/29/19) sulfamethoxazole (Verified Adverse Reaction, Mild, DIARRHEA, 11/29/19) tizanidine (Verified Adverse Reaction, Mild, ITCHING, 11/29/19) trazodone (Verified Adverse Reaction, Mild, EDEMA, 11/29/19) trimethoprim (Verified Adverse Reaction, Mild, DIARRHEA, 11/29/19) vilazodone (Verified Adverse Reaction, Mild, MOOD CHANGES, 11/29/19) cyclobenzaprine (Verified Adverse Reaction, Unknown, IRRITABILITY, 11/29/19) valproic acid (Unverified Adverse Reaction, Unknown, DOES NOT METABOLIZE, 11/29/19) MANJULA ALBRIGHT DO Jan 26, 2020 11:04
--- NOTE | 2020-01-26 16:03 | MHIPNPDOC ---
[facility] Progress Note Progress Note DATE OF SERVICE: 01/24/20 HPI: Mitra presents today for a follow up in an inpatient mental health unit. She states that it is too hard to do the group activities because of her energy d ecrease. She notes that she is having a suicidal thought currently. Her thoughts about self harm and cutting are the same. She reports that her and mother do not want her to take her medication, and it is stressful for her because she does not want to lie to them about her taking it. Objective Behavior: Cooperative with good eye contact. Pleasant. Engaged. Fair. Affect: Constricted. Mood: Dysthymic. Speech: Slow and tired. Thought Content: No evidence of delusions. No thoughts of self harm. Reports suicidal thoughts. No evidence of aggressive or homicidal ideation. Judgement: Poor to fair. Insight: Poor to fair. Assessment F33.2 Major depressive disorder, recurrent severe without psychotic features Plan Trial a stimulant. Tomorrow well do EKG. Today to determine if she has an appropriate QTC. Discuss the risks and benefits of off-label stimulant use as she is quite tired medically. Her condition and use of aromatase inhibitors could be causing it; however, she may very well need this. We'll continue 1-to-1 as she's still quite risky for suicide. Vital Signs Vital Signs Date Time Temp Pulse Resp B/P (MAP) Pulse Ox O2 Delivery O2 Flow Rate FiO2 01/26/20 06:13 97.7 84 16 118/72 (87) 01/25/20 07:00 100 Room Air Current Medications Current Medications Medications (Trade) Dose Ordered Sig/Ben Route PRN Reason Start Time Stop Time Status Last Admin Dose Admin Acetaminophen (Tylenol Tab) 650 mg Q6HP PRN PO HEADACHE or DISCOMFORT 01/10/20 20:30 01/16/20 08:52 Acetazolamide (Diamox Sequels) 500 mg BID PO 01/10/20 21:00 01/26/20 08:10 Acetazolamide (Diamox) 500 mg BID PO 01/10/20 09:00 01/10/20 22:33 DC 01/10/20 08:29 Acyclovir (Zovirax) 400 mg BID PO 01/10/20 09:00 01/10/20 22:33 DC 01/10/20 08:22 Acyclovir (Zovirax) 400 mg BID PO 01/10/20 21:00 01/26/20 08:09 Al Hydrox/Mg Hydrox/Simethicone (Mylanta) 30 ml Q4HP PRN PO HEARTBURN/INDIGESTION 01/10/20 20:30 Albuterol Sulfate (Proventil, Ventolin Hfa) 2 puff Q2HP PRN INH SHORTNESS OF BREATH 01/11/20 12:15 01/20/20 08:22 Bacitracin (Bacitracin Oint) apply to left arm lacerations TID TOP 01/11/20 21:00 01/22/20 20:13 Baclofen (Lioresal) 10 mg TID PO 01/16/20 16:00 01/26/20 15:51 Baclofen (Lioresal) 10 mg TIDP PRN PO MUSCLE SPASMS 01/10/20 22:45 01/16/20 11:38 DC 01/16/20 08:51 Clozapine (Clozaril) 100 mg QHS PO 01/10/20 21:00 01/20/20 17:14 DC 01/19/20 20:53 Clozapine (Clozaril) 125 mg QHS PO 01/20/20 21:00 01/25/20 11:52 DC 01/24/20 20:33 Clozapine (Clozaril) 150 mg QHS PO 01/20/20 21:00 01/20/20 17:16 DC Clozapine (Clozaril) 150 mg QHS PO 01/25/20 21:00 01/25/20 20:09 Docusate Sodium (Colace) 100 mg DAILY PO 01/11/20 09:00 01/26/20 08:09 Fish Oil ([place]-3 (1000mg)) 1 cap DAILY PO 01/10/20 09:00 01/10/20 22:33 DC 01/10/20 08:29 Fish Oil ([place]-3 (1000mg)) 1 cap DAILY PO 01/11/20 09:00 01/26/20 08:10 Fluoxetine HCl (PROzac) 20 mg DAILY PO 01/10/20 09:00 01/10/20 22:33 DC 01/10/20 08:22 Fluoxetine HCl (PROzac) 20 mg DAILY PO 01/11/20 09:00 01/12/20 12:40 DC 01/12/20 08:33 Fluoxetine HCl (PROzac) 30 mg DAILY PO 01/13/20 09:00 01/16/20 11:35 DC 01/16/20 08:50 Fluoxetine HCl (PROzac) 40 mg DAILY PO 01/17/20 09:00 01/26/20 08:09 Folic Acid (Folic Acid) 1 mg DAILY PO 01/10/20 09:00 01/10/20 20:27 DC 01/10/20 08:23 Folic Acid (Folic Acid) 1 mg DAILY PO 01/11/20 09:00 01/26/20 08:09 Folic Acid (Folic Acid) 1 mg DAILY PO 01/11/20 09:00 Cancel Home Med (Med Rec Complete!) ASDIRECTED XX 01/10/20 21:45 01/10/20 21:35 DC Hydroxyzine HCl (Atarax) 50 mg Q6HP PRN PO anxiety 01/19/20 17:00 01/24/20 14:12 DC 01/24/20 12:58 Hydroxyzine HCl (Atarax) 50 mg QID PO 01/10/20 13:00 01/10/20 22:33 DC 01/10/20 17:03 Hydroxyzine HCl (Atarax) 50 mg QID PO 01/11/20 13:00 01/19/20 16:52 DC 01/19/20 15:53 Hydroxyzine HCl (Atarax) 50 mg QIDP PRN PO ANXIETY 01/10/20 22:45 01/11/20 12:19 DC 01/11/20 08:37 Hydroxyzine HCl (Atarax) 100 mg BID PO 01/19/20 21:00 01/20/20 11:16 DC 01/20/20 08:25 Hydroxyzine HCl (Atarax) 100 mg BID@0900,1500 PO 01/20/20 15:00 01/26/20 15:51 Lorazepam (Ativan) 2 mg ASDIRECTED PRN PO SEE PROTOCOL 01/10/20 20:30 01/11/20 16:44 DC Magnesium Hydroxide (Milk Of Magnesia) 30 ml DAILYPRN PRN PO CONSTIPATION 01/10/20 20:30 Meloxicam (Mobic) 15 mg DAILY PO 01/11/20 09:00 01/26/20 08:08 Mirtazapine (Remeron) 30 mg QHS PO 01/10/20 21:00 01/25/20 20:08 Miscellaneous (Unresolved Clarification Entry) SEE LABEL COMMENTS DAILY XX 01/15/20 09:00 01/15/20 11:17 DC Multivitamins (Theragram-M) 1 tab DAILY PO 01/11/20 09:00 01/26/20 08:08 Mycophenolate Mofetil (Cellcept) 500 mg TID PO 01/10/20 09:00 01/10/20 22:33 DC 01/10/20 17:04 Mycophenolate Mofetil (Cellcept) 1,000 mg TID PO 01/10/20 21:00 01/26/20 15:52 Naltrexone HCl (Revia) 50 mg BID PO 01/10/20 09:00 01/10/20 22:33 DC 01/10/20 08:28 Naltrexone HCl (Revia) 50 mg BID PO 01/10/20 21:00 01/26/20 08:08 Olanzapine (ZyPREXA ZYDIS) 5 mg Q4HP PRN PO ANXIETY/AGITATION 01/11/20 16:45 01/19/20 16:55 DC 01/19/20 15:56 Omeprazole (PriLOSEC) 20 mg DAILY PO 01/10/20 09:00 01/10/20 22:33 DC 01/10/20 08:21 Omeprazole (PriLOSEC) 20 mg DAILY PO 01/11/20 09:00 01/26/20 08:08 Potassium Chloride (Micro-K Extencaps) 20 meq DAILY PO 01/10/20 09:00 01/10/20 22:33 DC 01/10/20 08:22 Potassium Chloride (Micro-K Extencaps) 20 meq DAILY PO 01/11/20 09:00 01/26/20 08:09 Pyridostigmine [place] (Mestinon) 90 mg QID PO 01/10/20 09:00 01/10/20 22:33 DC 01/10/20 17:02 Pyridostigmine [place] (Mestinon) 90 mg QID PO 01/10/20 21:00 01/26/20 13:15 Senna (Senokot) 2 tab QHSP PRN PO CONSTIPATION 01/10/20 22:45 Tamoxifen Citrate (Nolvadex) 20 mg DAILY PO 01/10/20 09:00 01/10/20 22:33 DC 01/10/20 08:31 Tamoxifen Citrate (Nolvadex) 20 mg DAILY PO 01/11/20 09:00 01/26/20 08:08 Thiamine HCl (Thiamine HCl) 100 mg BID PO 01/10/20 21:00 01/13/20 20:59 DC 01/13/20 08:03 Torsemide (Demadex) 20 mg DAILY PO 01/10/20 09:00 01/10/20 22:33 DC 01/10/20 08:22 Torsemide (Demadex) 20 mg DAILY PO 01/11/20 09:00 01/19/20 16:37 DC 01/19/20 08:05 Torsemide (Demadex) 40 mg DAILY PO 01/20/20 09:00 01/26/20 08:10 Trazodone HCl (Desyrel) 50 mg QHSP PRN PO INSOMNIA 01/10/20 20:30 01/25/20 20:09 Venlafaxine HCl (Effexor Xr) 225 mg DAILY PO 01/11/20 09:00 01/26/20 08:10 Venlafaxine HCl (Effexor) 225 mg DAILY PO 01/10/20 09:00 01/10/20 22:33 DC 01/10/20 08:28 Vitamin D (Vitamin D) 5,000 units DAILY PO 01/10/20 09:00 01/10/20 22:33 DC 01/10/20 08:20 Allergies Coded Allergies: amitriptyline (Verified Allergy, Severe, SWELLING, 11/29/19) Grass (Verified Allergy, Mild, ITCHY EYES,NOSE, 11/29/19) TAPE (Verified Allergy, Mild, RASH/BLISTER, 11/29/19) TREES (Verified Allergy, Mild, ITCHY EYES,NOSE, 11/29/19) adhesive (Verified Allergy, Unknown, 11/29/19) divalproex sodium (Verified Allergy, Unknown, 11/29/19) minocycline (Verified Allergy, Unknown, 11/29/19) mold (Verified Allergy, Unknown, 11/29/19) tetracycline (Verified Allergy, Unknown, 11/29/19) bupropion (Verified Adverse Reaction, Intermediate, ESOPHAGEAL SPASMS, 11/29/19) banana (Verified Adverse Reaction, Mild, VOMITING, 11/29/19) benztropine (Verified Adverse Reaction, Mild, BLURRED VISION, 11/29/19) clindamycin (Verified Adverse Reaction, Mild, HEART BURN, 11/29/19) gabapentin (Verified Adverse Reaction, Mild, extreme weakness, 11/29/19) metaxalone (Verified Adverse Reaction, Mild, itching, 11/29/19) pregabalin (Verified Adverse Reaction, Mild, EDEMA, 11/29/19) sulfamethoxazole (Verified Adverse Reaction, Mild, DIARRHEA, 11/29/19) tizanidine (Verified Adverse Reaction, Mild, ITCHING, 11/29/19) trazodone (Verified Adverse Reaction, Mild, EDEMA, 11/29/19) trimethoprim (Verified Adverse Reaction, Mild, DIARRHEA, 11/29/19) vilazodone (Verified Adverse Reaction, Mild, MOOD CHANGES, 11/29/19) cyclobenzaprine (Verified Adverse Reaction, Unknown, IRRITABILITY, 11/29/19) valproic acid (Unverified Adverse Reaction, Unknown, DOES NOT METABOLIZE, 11/29/19) MANJULA ALBRIGHT DO Jan 26, 2020 16:03
[2020-01-26 18:24] VITALS: BP 123/96
[2020-01-26] MEDS: MIRTAZAPINE 15 MG TAB PO SCH (21:25)
[2020-01-26] MEDS: cloZAPine 100 MG TAB (S0136) PO SCH (21:25)
--- NOTE | 2020-01-27 01:55 | ECGEPIP ---
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
[2020-01-27 06:34] VITALS: BP 142/80
[2020-01-27] MEDS: BACITRACIN OINTMENT 30GM TUBE TOP SCH ×3 (09:00→20:42)
[2020-01-27] MEDS: PILL CUTTER 1 EACH XX PRN ×3 (09:01→16:46)
[2020-01-27] MEDS: PYRIDOSTIGMINE 60 MG TAB PO SCH ×4 (09:01→20:22)
[2020-01-27] MEDS: OMEGA-3 1000MG CAPSULE PO SCH (09:01)
[2020-01-27] MEDS: DOCUSATE SODIUM 100MG CAPSULE PO SCH (09:01)
[2020-01-27] MEDS: NALTREXONE 50 MG TAB PO SCH ×2 (09:03→20:23)
[2020-01-27] MEDS: FLUoxetine 20 MG CAP PO SCH (09:03)
[2020-01-27] MEDS: OMEPRAZOLE 20 MG CAP PO SCH (09:03)
[2020-01-27] MEDS: MELOXICAM (MOBIC) 7.5 MG TAB PO SCH (09:03)
[2020-01-27] MEDS: BACLOFEN 10 MG TAB PO SCH ×3 (09:03→20:23)
[2020-01-27] MEDS: hydrOXYzine 50 MG TAB PO SCH ×2 (09:03→14:06)
[2020-01-27] MEDS: VENLAFAXINE **XR** 75MG CAPSULE PO SCH (09:04)
[2020-01-27] MEDS: FOLIC ACID 1 MG TAB PO SCH (09:04)
[2020-01-27] MEDS: acetaZOLAMIDE 500 MG ER CAP PO SCH ×2 (09:04→20:22)
[2020-01-27] MEDS: MULTIVITAMINS/MINERALS THERAP 1 TAB PO SCH (09:05)
[2020-01-27] MEDS: ACYCLOVIR 200 MG CAPSULE PO SCH ×2 (09:05→20:22)
[2020-01-27] MEDS: POTASSIUM CHLORIDE 10 MEQ SR TABLET PO SCH (09:05)
[2020-01-27] MEDS: TORSEMIDE 20 MG TAB PO SCH (09:06)
[2020-01-27] MEDS: MYCOPHENOLATE MOFETIL 250 MG CAP (J7517) PO SCH ×3 (09:06→20:22)
--- NOTE | 2020-01-27 10:09 | MHIPNPDOC ---
[facility] Progress Note Progress Note DATE OF SERVICE: 01/27/20 HPI: Mitra presents today for her suicidal and self-mutilating thoughts. She reports that shes made some mild progress in terms of her suicidal thoughts and self- mutilating thoughts. MEDICATIONS: She reports since the tamoxifen stopping she has done a little better. FAMILY HISTORY: Staff report that her difficulties with her family do appear to make it more difficult for her to progress. TESTS: She remains on a one-to-one with close observation. Objective Appearance: Hygiene fair. Mood: Dysthymic but mildly less so. Speech: Fluid. Cognition: Grossly intact. Thought Form: Linear and logical with no problems with associations. Thought Content: Suicidal thoughts. Self-mutilating thoughts. Judgement: Poor. Insight: Poor. Assessment F33.2 Major depressive disorder, recurrent severe without psychotic features F31.9 Bipolar disorder, unspecified Plan Continue medication as current, Clozaril and Prozac. Stopping tamoxifen could serve as an improvement incentive as well as potentially reduce some dysphoria. Continue on one-to-one as she still has quite a bit of self-mutilating tendencies. Vital Signs Vital Signs Date Time Temp Pulse Resp B/P (MAP) Pulse Ox O2 Delivery O2 Flow Rate FiO2 01/27/20 06:34 99.3 73 18 142/80 (100) 01/25/20 07:00 100 Room Air Current Medications Current Medications Medications (Trade) Dose Ordered Sig/Ben Route PRN Reason Start Time Stop Time Status Last Admin Dose Admin Acetaminophen (Tylenol Tab) 650 mg Q6HP PRN PO HEADACHE or DISCOMFORT 01/10/20 20:30 01/16/20 08:52 Acetazolamide (Diamox Sequels) 500 mg BID PO 01/10/20 21:00 01/27/20 09:04 Acetazolamide (Diamox) 500 mg BID PO 01/10/20 09:00 01/10/20 22:33 DC 01/10/20 08:29 Acyclovir (Zovirax) 400 mg BID PO 01/10/20 09:00 01/10/20 22:33 DC 01/10/20 08:22 Acyclovir (Zovirax) 400 mg BID PO 01/10/20 21:00 01/27/20 09:05 Al Hydrox/Mg Hydrox/Simethicone (Mylanta) 30 ml Q4HP PRN PO HEARTBURN/INDIGESTION 01/10/20 20:30 Albuterol Sulfate (Proventil, Ventolin Hfa) 2 puff Q2HP PRN INH SHORTNESS OF BREATH 01/11/20 12:15 01/20/20 08:22 Bacitracin (Bacitracin Oint) apply to left arm lacerations TID TOP 01/11/20 21:00 01/22/20 20:13 Baclofen (Lioresal) 10 mg TID PO 01/16/20 16:00 01/27/20 09:03 Baclofen (Lioresal) 10 mg TIDP PRN PO MUSCLE SPASMS 01/10/20 22:45 01/16/20 11:38 DC 01/16/20 08:51 Clozapine (Clozaril) 100 mg QHS PO 01/10/20 21:00 01/20/20 17:14 DC 01/19/20 20:53 Clozapine (Clozaril) 125 mg QHS PO 01/20/20 21:00 01/25/20 11:52 DC 01/24/20 20:33 Clozapine (Clozaril) 150 mg QHS PO 01/20/20 21:00 01/20/20 17:16 DC Clozapine (Clozaril) 150 mg QHS PO 01/25/20 21:00 01/26/20 21:25 Docusate Sodium (Colace) 100 mg DAILY PO 01/11/20 09:00 01/27/20 09:01 Fish Oil ([place]-3 (1000mg)) 1 cap DAILY PO 01/10/20 09:00 01/10/20 22:33 DC 01/10/20 08:29 Fish Oil ([place]raper-3 (1000mg)) 1 cap DAILY PO 01/11/20 09:00 01/27/20 09:01 Fluoxetine HCl (PROzac) 20 mg DAILY PO 01/10/20 09:00 01/10/20 22:33 DC 01/10/20 08:22 Fluoxetine HCl (PROzac) 20 mg DAILY PO 01/11/20 09:00 01/12/20 12:40 DC 01/12/20 08:33 Fluoxetine HCl (PROzac) 30 mg DAILY PO 01/13/20 09:00 01/16/20 11:35 DC 01/16/20 08:50 Fluoxetine HCl (PROzac) 40 mg DAILY PO 01/17/20 09:00 01/27/20 09:03 Folic Acid (Folic Acid) 1 mg DAILY PO 01/10/20 09:00 01/10/20 20:27 DC 01/10/20 08:23 Folic Acid (Folic Acid) 1 mg DAILY PO 01/11/20 09:00 01/27/20 09:04 Folic Acid (Folic Acid) 1 mg DAILY PO 01/11/20 09:00 Cancel Home Med (Med Rec Complete!) ASDIRECTED XX 01/10/20 21:45 01/10/20 21:35 DC Hydroxyzine HCl (Atarax) 50 mg Q6HP PRN PO anxiety 01/19/20 17:00 01/24/20 14:12 DC 01/24/20 12:58 Hydroxyzine HCl (Atarax) 50 mg QID PO 01/10/20 13:00 01/10/20 22:33 DC 01/10/20 17:03 Hydroxyzine HCl (Atarax) 50 mg QID PO 01/11/20 13:00 01/19/20 16:52 DC 01/19/20 15:53 Hydroxyzine HCl (Atarax) 50 mg QIDP PRN PO ANXIETY 01/10/20 22:45 01/11/20 12:19 DC 01/11/20 08:37 Hydroxyzine HCl (Atarax) 100 mg BID PO 01/19/20 21:00 01/20/20 11:16 DC 01/20/20 08:25 Hydroxyzine HCl (Atarax) 100 mg BID@0900,1500 PO 01/20/20 15:00 01/27/20 09:03 Lorazepam (Ativan) 2 mg ASDIRECTED PRN PO SEE PROTOCOL 01/10/20 20:30 01/11/20 16:44 DC Magnesium Hydroxide (Milk Of Magnesia) 30 ml DAILYPRN PRN PO CONSTIPATION 01/10/20 20:30 Meloxicam (Mobic) 15 mg DAILY PO 01/11/20 09:00 01/27/20 09:03 Mirtazapine (Remeron) 30 mg QHS PO 01/10/20 21:00 01/26/20 21:25 Miscellaneous (Unresolved Clarification Entry) SEE LABEL COMMENTS DAILY XX 01/15/20 09:00 01/15/20 11:17 DC Multivitamins (Theragram-M) 1 tab DAILY PO 01/11/20 09:00 01/27/20 09:05 Mycophenolate Mofetil (Cellcept) 500 mg TID PO 01/10/20 09:00 01/10/20 22:33 DC 01/10/20 17:04 Mycophenolate Mofetil (Cellcept) 1,000 mg TID PO 01/10/20 21:00 01/27/20 09:06 Naltrexone HCl (Revia) 50 mg BID PO 01/10/20 09:00 01/10/20 22:33 DC 01/10/20 08:28 Naltrexone HCl (Revia) 50 mg BID PO 01/10/20 21:00 01/27/20 09:03 Olanzapine (ZyPREXA ZYDIS) 5 mg Q4HP PRN PO ANXIETY/AGITATION 01/11/20 16:45 01/19/20 16:55 DC 01/19/20 15:56 Omeprazole (PriLOSEC) 20 mg DAILY PO 01/10/20 09:00 01/10/20 22:33 DC 01/10/20 08:21 Omeprazole (PriLOSEC) 20 mg DAILY PO 01/11/20 09:00 01/27/20 09:03 Potassium Chloride (Micro-K Extencaps) 20 meq DAILY PO 01/10/20 09:00 01/10/20 22:33 DC 01/10/20 08:22 Potassium Chloride (Micro-K Extencaps) 20 meq DAILY PO 01/11/20 09:00 01/27/20 09:05 Pyridostigmine [place] (Mestinon) 90 mg QID PO 01/10/20 09:00 01/10/20 22:33 DC 01/10/20 17:02 Pyridostigmine [place] (Mestinon) 90 mg QID PO 01/10/20 21:00 01/27/20 09:01 Senna (Senokot) 2 tab QHSP PRN PO CONSTIPATION 01/10/20 22:45 Tamoxifen Citrate (Nolvadex) 20 mg DAILY PO 01/10/20 09:00 01/10/20 22:33 DC 01/10/20 08:31 Tamoxifen Citrate (Nolvadex) 20 mg DAILY PO 01/11/20 09:00 01/26/20 16:25 DC 01/26/20 08:08 Thiamine HCl (Thiamine HCl) 100 mg BID PO 01/10/20 21:00 01/13/20 20:59 DC 01/13/20 08:03 Torsemide (Demadex) 20 mg DAILY PO 01/10/20 09:00 01/10/20 22:33 DC 01/10/20 08:22 Torsemide (Demadex) 20 mg DAILY PO 01/11/20 09:00 01/19/20 16:37 DC 01/19/20 08:05 Torsemide (Demadex) 40 mg DAILY PO 01/20/20 09:00 01/27/20 09:06 Trazodone HCl (Desyrel) 50 mg QHSP PRN PO INSOMNIA 01/10/20 20:30 01/25/20 20:09 Venlafaxine HCl (Effexor Xr) 225 mg DAILY PO 01/11/20 09:00 01/27/20 09:04 Venlafaxine HCl (Effexor) 225 mg DAILY PO 01/10/20 09:00 01/10/20 22:33 DC 01/10/20 08:28 Vitamin D (Vitamin D) 5,000 units DAILY PO 01/10/20 09:00 01/10/20 22:33 DC 01/10/20 08:20 Allergies Coded Allergies: amitriptyline (Verified Allergy, Severe, SWELLING, 11/29/19) Grass (Verified Allergy, Mild, ITCHY EYES,NOSE, 11/29/19) TAPE (Verified Allergy, Mild, RASH/BLISTER, 11/29/19) TREES (Verified Allergy, Mild, ITCHY EYES,NOSE, 11/29/19) adhesive (Verified Allergy, Unknown, 11/29/19) divalproex sodium (Verified Allergy, Unknown, 11/29/19) minocycline (Verified Allergy, Unknown, 11/29/19) mold (Verified Allergy, Unknown, 11/29/19) tetracycline (Verified Allergy, Unknown, 11/29/19) bupropion (Verified Adverse Reaction, Intermediate, ESOPHAGEAL SPASMS, 11/29/19) banana (Verified Adverse Reaction, Mild, VOMITING, 11/29/19) benztropine (Verified Adverse Reaction, Mild, BLURRED VISION, 11/29/19) clindamycin (Verified Adverse Reaction, Mild, HEART BURN, 11/29/19) gabapentin (Verified Adverse Reaction, Mild, extreme weakness, 11/29/19) metaxalone (Verified Adverse Reaction, Mild, itching, 11/29/19) pregabalin (Verified Adverse Reaction, Mild, EDEMA, 11/29/19) sulfamethoxazole (Verified Adverse Reaction, Mild, DIARRHEA, 11/29/19) tizanidine (Verified Adverse Reaction, Mild, ITCHING, 11/29/19) trazodone (Verified Adverse Reaction, Mild, EDEMA, 11/29/19) trimethoprim (Verified Adverse Reaction, Mild, DIARRHEA, 11/29/19) vilazodone (Verified Adverse Reaction, Mild, MOOD CHANGES, 11/29/19) cyclobenzaprine (Verified Adverse Reaction, Unknown, IRRITABILITY, 11/29/19) valproic acid (Unverified Adverse Reaction, Unknown, DOES NOT METABOLIZE, 11/29/19) MANJULA ALBRIGHT DO Jan 27, 2020 10:09
[2020-01-27 18:46] VITALS: BP 132/88
[2020-01-27] MEDS: MIRTAZAPINE 15 MG TAB PO SCH (20:23)
[2020-01-27] MEDS: cloZAPine 100 MG TAB (S0136) PO SCH (20:23)
[2020-01-27] MEDS: traZODone 50 MG TAB PO PRN (20:23)
[2020-01-28 07:11] VITALS: BP 144/86
[2020-01-28] MEDS: ACYCLOVIR 200 MG CAPSULE PO SCH ×2 (08:03→21:46)
[2020-01-28] MEDS: acetaZOLAMIDE 500 MG ER CAP PO SCH ×2 (08:03→21:46)
[2020-01-28] MEDS: MYCOPHENOLATE MOFETIL 250 MG CAP (J7517) PO SCH ×3 (08:04→21:45)
[2020-01-28] MEDS: OMEGA-3 1000MG CAPSULE PO SCH (08:04)
[2020-01-28] MEDS: MELOXICAM (MOBIC) 7.5 MG TAB PO SCH (08:05)
[2020-01-28] MEDS: PYRIDOSTIGMINE 60 MG TAB PO SCH ×4 (08:05→21:46)
[2020-01-28] MEDS: TORSEMIDE 20 MG TAB PO SCH (08:05)
[2020-01-28] MEDS: BACLOFEN 10 MG TAB PO SCH ×3 (08:05→21:44)
[2020-01-28] MEDS: NALTREXONE 50 MG TAB PO SCH ×2 (08:06→21:44)
[2020-01-28] MEDS: POTASSIUM CHLORIDE 10 MEQ SR TABLET PO SCH (08:07)
[2020-01-28] MEDS: DOCUSATE SODIUM 100MG CAPSULE PO SCH (08:07)
[2020-01-28] MEDS: MULTIVITAMINS/MINERALS THERAP 1 TAB PO SCH (08:07)
[2020-01-28] MEDS: FLUoxetine 20 MG CAP PO SCH (08:07)
[2020-01-28] MEDS: OMEPRAZOLE 20 MG CAP PO SCH (08:07)
[2020-01-28] MEDS: FOLIC ACID 1 MG TAB PO SCH (08:08)
[2020-01-28] MEDS: hydrOXYzine 50 MG TAB PO SCH ×2 (08:08→14:03)
[2020-01-28] MEDS: VENLAFAXINE **XR** 75MG CAPSULE PO SCH (08:08)
[2020-01-28] MEDS: PILL CUTTER 1 EACH XX PRN ×3 (08:08→16:22)
[2020-01-28] MEDS: BACITRACIN OINTMENT 30GM TUBE TOP SCH ×3 (08:12→21:00)
[2020-01-28 18:04] VITALS: BP 118/66
[2020-01-28] MEDS: cloZAPine 100 MG TAB (S0136) PO SCH (21:43)
[2020-01-28] MEDS: MIRTAZAPINE 15 MG TAB PO SCH (21:44)
[2020-01-28] MEDS: traZODone 50 MG TAB PO PRN (21:44)
[2020-01-29 07:01] VITALS: BP 142/79
[2020-01-29] MEDS: BACITRACIN OINTMENT 30GM TUBE TOP SCH ×3 (09:00→20:36)
[2020-01-29] MEDS: acetaZOLAMIDE 500 MG ER CAP PO SCH ×2 (09:02→20:34)
[2020-01-29] MEDS: MYCOPHENOLATE MOFETIL 250 MG CAP (J7517) PO SCH ×3 (09:03→20:34)
[2020-01-29] MEDS: ACYCLOVIR 200 MG CAPSULE PO SCH ×2 (09:03→20:34)
[2020-01-29] MEDS: OMEGA-3 1000MG CAPSULE PO SCH (09:04)
[2020-01-29] MEDS: PYRIDOSTIGMINE 60 MG TAB PO SCH ×4 (09:04→20:32)
[2020-01-29] MEDS: PILL CUTTER 1 EACH XX PRN ×2 (09:05→16:38)
[2020-01-29] MEDS: BACLOFEN 10 MG TAB PO SCH ×3 (09:05→20:33)
[2020-01-29] MEDS: TORSEMIDE 20 MG TAB PO SCH (09:05)
[2020-01-29] MEDS: MELOXICAM (MOBIC) 7.5 MG TAB PO SCH (09:05)
[2020-01-29] MEDS: NALTREXONE 50 MG TAB PO SCH ×2 (09:06→20:33)
[2020-01-29] MEDS: POTASSIUM CHLORIDE 10 MEQ SR TABLET PO SCH (09:07)
[2020-01-29] MEDS: FLUoxetine 20 MG CAP PO SCH (09:07)
[2020-01-29] MEDS: MULTIVITAMINS/MINERALS THERAP 1 TAB PO SCH (09:07)
[2020-01-29] MEDS: OMEPRAZOLE 20 MG CAP PO SCH (09:07)
[2020-01-29] MEDS: FOLIC ACID 1 MG TAB PO SCH (09:07)
[2020-01-29] MEDS: VENLAFAXINE **XR** 75MG CAPSULE PO SCH (09:08)
[2020-01-29] MEDS: DOCUSATE SODIUM 100MG CAPSULE PO SCH (09:08)
[2020-01-29] MEDS: hydrOXYzine 50 MG TAB PO SCH ×2 (09:08→14:20)
[2020-01-29 19:08] VITALS: BP 119/67
[2020-01-29] MEDS: cloZAPine 100 MG TAB (S0136) PO SCH (20:33)
[2020-01-29] MEDS: MIRTAZAPINE 15 MG TAB PO SCH (20:33)
[2020-01-29] MEDS: traZODone 50 MG TAB PO PRN (20:34)
[2020-01-30] MEDS: BACITRACIN OINTMENT 30GM TUBE TOP SCH ×3 (08:48→20:53)
[2020-01-30] MEDS: FLUoxetine 20 MG CAP PO SCH (08:49)
[2020-01-30] MEDS: PYRIDOSTIGMINE 60 MG TAB PO SCH ×4 (08:49→20:48)
[2020-01-30] MEDS: MELOXICAM (MOBIC) 7.5 MG TAB PO SCH (08:49)
[2020-01-30] MEDS: NALTREXONE 50 MG TAB PO SCH ×2 (08:49→20:47)
[2020-01-30] MEDS: OMEGA-3 1000MG CAPSULE PO SCH (08:49)
[2020-01-30] MEDS: PILL CUTTER 1 EACH XX PRN ×3 (08:49→16:51)
[2020-01-30] MEDS: BACLOFEN 10 MG TAB PO SCH ×3 (08:49→20:48)
[2020-01-30] MEDS: POTASSIUM CHLORIDE 10 MEQ SR TABLET PO SCH (08:49)
[2020-01-30] MEDS: TORSEMIDE 20 MG TAB PO SCH (08:50)
[2020-01-30] MEDS: MYCOPHENOLATE MOFETIL 250 MG CAP (J7517) PO SCH ×3 (08:50→20:50)
[2020-01-30] MEDS: OMEPRAZOLE 20 MG CAP PO SCH (08:50)
[2020-01-30] MEDS: MULTIVITAMINS/MINERALS THERAP 1 TAB PO SCH (08:50)
[2020-01-30] MEDS: ACYCLOVIR 200 MG CAPSULE PO SCH ×2 (08:50→20:47)
[2020-01-30] MEDS: FOLIC ACID 1 MG TAB PO SCH (08:50)
[2020-01-30] MEDS: DOCUSATE SODIUM 100MG CAPSULE PO SCH (08:50)
[2020-01-30] MEDS: acetaZOLAMIDE 500 MG ER CAP PO SCH ×2 (08:51→20:46)
[2020-01-30] MEDS: hydrOXYzine 50 MG TAB PO SCH ×2 (08:51→15:25)
[2020-01-30] MEDS: VENLAFAXINE **XR** 75MG CAPSULE PO SCH (08:51)
[2020-01-30] MEDS ORDERED: OLANZapine ORAL DISINTEGRATING TAB 5MG PO ONE (11:30)
[2020-01-30 16:09] VITALS: BP 121/62
[2020-01-30 17:03] VITALS: BP 142/79
[2020-01-30] MEDS: traZODone 50 MG TAB PO PRN (20:47)
[2020-01-30] MEDS: cloZAPine 100 MG TAB (S0136) PO SCH (20:47)
[2020-01-30] MEDS: MIRTAZAPINE 15 MG TAB PO SCH (20:48)
--- NOTE | 2020-01-31 07:27 | MHIPN ---
DATE OF SERVICE: 01/28/2020 NOTE: The patient today refused to talk to me and so I am not able to complete an evaluation. CASIMIRO
--- NOTE | 2020-01-31 07:33 | MHIPN ---
DATE: 01/30/2020 VITAL SIGNS: Blood pressure 119/67, pulse 101, temperature 97. CHIEF COMPLAINT: Feels depressed. OBJECTIVE: She is seen for follow-up. I am assigned to her care today as is away. She says she feels depressed, has had suicidal thoughts, and also thoughts of harming herself, for example cutting, says has attempted looking for ways to do that, but feels a bit better, she took Zydis earlier today, feels a bit tired after that. MENTAL STATUS EXAMINATION: She is neat, cooperative. No agitation. No psychomotor retardation. Affect is restricted in range, with little reactivity, has suicidal thoughts, no certain plans, no current evidence of psychosis. Judgment and insight remain compromised. ASSESSMENT: 1. Bipolar disorder. 2. Borderline personality disorder by history. PLAN: Continue current care, observations including one-on-one observations, and I would suggest using Zyprexa as needed, to help with racing thoughts and irritabilities, which raise risks for looking at harming herself. It should be noted, differential diagnosis, among others would include major depressive disorder and for early . MTDD
[2020-01-31] MEDS: PILL CUTTER 1 EACH XX PRN ×3 (08:08→16:49)
[2020-01-31] MEDS: TORSEMIDE 20 MG TAB PO SCH (08:08)
[2020-01-31] MEDS: BACITRACIN OINTMENT 30GM TUBE TOP SCH ×3 (08:09→21:00)
[2020-01-31] MEDS: MULTIVITAMINS/MINERALS THERAP 1 TAB PO SCH (08:09)
[2020-01-31] MEDS: MYCOPHENOLATE MOFETIL 250 MG CAP (J7517) PO SCH ×3 (08:09→21:39)
[2020-01-31] MEDS: NALTREXONE 50 MG TAB PO SCH ×2 (08:09→21:40)
[2020-01-31] MEDS: POTASSIUM CHLORIDE 10 MEQ SR TABLET PO SCH (08:09)
[2020-01-31] MEDS: ACYCLOVIR 200 MG CAPSULE PO SCH ×2 (08:10→21:40)
[2020-01-31] MEDS: BACLOFEN 10 MG TAB PO SCH ×3 (08:10→21:40)
[2020-01-31] MEDS: FLUoxetine 20 MG CAP PO SCH (08:10)
[2020-01-31] MEDS: FOLIC ACID 1 MG TAB PO SCH (08:10)
[2020-01-31] MEDS: acetaZOLAMIDE 500 MG ER CAP PO SCH ×2 (08:10→21:40)
[2020-01-31] MEDS: DOCUSATE SODIUM 100MG CAPSULE PO SCH (08:10)
[2020-01-31] MEDS: hydrOXYzine 50 MG TAB PO SCH (08:10)
[2020-01-31] MEDS: OMEPRAZOLE 20 MG CAP PO SCH (08:10)
[2020-01-31] MEDS: PYRIDOSTIGMINE 60 MG TAB PO SCH ×4 (08:10→21:37)
[2020-01-31] MEDS: OMEGA-3 1000MG CAPSULE PO SCH (08:10)
[2020-01-31] MEDS: MELOXICAM (MOBIC) 7.5 MG TAB PO SCH (08:11)
[2020-01-31] MEDS: VENLAFAXINE **XR** 75MG CAPSULE PO SCH (08:11)
--- NOTE | 2020-01-31 10:42 | MHIPNPDOC ---
[facility] Progress Note Progress Note DATE OF SERVICE: 01/31/20 Subjective HPI: Mitra presents today for continuous report of feeling very mildly improved in terms of her depression and anxiety. Patient claims that she still has not made much progress on self-harm thoughts every day. She notes of not noticing a significant difference in general. Objective Appearance: Appears to be stated age. Well nourished. Well groomed. Behavior: Pleasant. Poor eye contact. Engaged. Affect: Little. No reactivity. Mood: Dysthymic. Speech: Constricted. Thought Form: Linear and goal directed. Associations intact. Thought Content: No evidence of suicidal ideation. Self mutilating thoughts. No evidence of aggressive or homicidal ideation. No evidence of delusions. Perception: No perceptual abnormalities noted. Judgement: Poor. Insight: Poor. Assessment F32.2 Major depressive disorder, single episode, severe without psychotic features F60.3 Borderline personality disorder Plan We will make significant changes as she has not made much progress the discontinuation of Tamoxifen or the attempted use of the Clozaril. Discontinue Clozaril and Mirtazapine at this time, and augment her Prozac and Effexor 0.5 mg daily. Risk, benefits, and potential side effects were discussed. EKG to be ordered to monitor QTC. Vital Signs Vital Signs Date Time Temp Pulse Resp B/P (MAP) Pulse Ox O2 Delivery O2 Flow Rate FiO2 01/30/20 17:03 98.4 72 16 142/79 (100) 01/29/20 07:01 98 Room Air Current Medications Current Medications Medications (Trade) Dose Ordered Sig/Ben Route PRN Reason Start Time Stop Time Status Last Admin Dose Admin Acetaminophen (Tylenol Tab) 650 mg Q6HP PRN PO HEADACHE or DISCOMFORT 01/10/20 20:30 01/16/20 08:52 Acetazolamide (Diamox Sequels) 500 mg BID PO 01/10/20 21:00 01/31/20 08:10 Acetazolamide (Diamox) 500 mg BID PO 01/10/20 09:00 01/10/20 22:33 DC 01/10/20 08:29 Acyclovir (Zovirax) 400 mg BID PO 01/10/20 09:00 01/10/20 22:33 DC 01/10/20 08:22 Acyclovir (Zovirax) 400 mg BID PO 01/10/20 21:00 01/31/20 08:10 Al Hydrox/Mg Hydrox/Simethicone (Mylanta) 30 ml Q4HP PRN PO HEARTBURN/INDIGESTION 01/10/20 20:30 Albuterol Sulfate (Proventil, Ventolin Hfa) 2 puff Q2HP PRN INH SHORTNESS OF BREATH 01/11/20 12:15 01/20/20 08:22 Bacitracin (Bacitracin Oint) apply to left arm lacerations TID TOP 01/11/20 21:00 01/31/20 08:09 Baclofen (Lioresal) 10 mg TID PO 01/16/20 16:00 01/31/20 08:10 Baclofen (Lioresal) 10 mg TIDP PRN PO MUSCLE SPASMS 01/10/20 22:45 01/16/20 11:38 DC 01/16/20 08:51 Clozapine (Clozaril) 100 mg QHS PO 01/10/20 21:00 01/20/20 17:14 DC 01/19/20 20:53 Clozapine (Clozaril) 125 mg QHS PO 01/20/20 21:00 01/25/20 11:52 DC 01/24/20 20:33 Clozapine (Clozaril) 150 mg QHS PO 01/20/20 21:00 01/20/20 17:16 DC Clozapine (Clozaril) 150 mg QHS PO 01/25/20 21:00 01/30/20 20:47 Docusate Sodium (Colace) 100 mg DAILY PO 01/11/20 09:00 01/31/20 08:10 Fish Oil ([place]-3 (1000mg)) 1 cap DAILY PO 01/10/20 09:00 01/10/20 22:33 DC 01/10/20 08:29 Fish Oil ([place]-3 (1000mg)) 1 cap DAILY PO 01/11/20 09:00 01/31/20 08:10 Fluoxetine HCl (PROzac) 20 mg DAILY PO 01/10/20 09:00 01/10/20 22:33 DC 01/10/20 08:22 Fluoxetine HCl (PROzac) 20 mg DAILY PO 01/11/20 09:00 01/12/20 12:40 DC 01/12/20 08:33 Fluoxetine HCl (PROzac) 30 mg DAILY PO 01/13/20 09:00 01/16/20 11:35 DC 01/16/20 08:50 Fluoxetine HCl (PROzac) 40 mg DAILY PO 01/17/20 09:00 01/31/20 08:10 Folic Acid (Folic Acid) 1 mg DAILY PO 01/10/20 09:00 01/10/20 20:27 DC 01/10/20 08:23 Folic Acid (Folic Acid) 1 mg DAILY PO 01/11/20 09:00 01/31/20 08:10 Folic Acid (Folic Acid) 1 mg DAILY PO 01/11/20 09:00 Cancel Home Med (Med Rec Complete!) ASDIRECTED XX 01/10/20 21:45 01/10/20 21:35 DC Hydroxyzine HCl (Atarax) 50 mg Q6HP PRN PO anxiety 01/19/20 17:00 01/24/20 14:12 DC 01/24/20 12:58 Hydroxyzine HCl (Atarax) 50 mg QID PO 01/10/20 13:00 01/10/20 22:33 DC 01/10/20 17:03 Hydroxyzine HCl (Atarax) 50 mg QID PO 01/11/20 13:00 01/19/20 16:52 DC 01/19/20 15:53 Hydroxyzine HCl (Atarax) 50 mg QIDP PRN PO ANXIETY 01/10/20 22:45 01/11/20 12:19 DC 01/11/20 08:37 Hydroxyzine HCl (Atarax) 100 mg BID PO 01/19/20 21:00 01/20/20 11:16 DC 01/20/20 08:25 Hydroxyzine HCl (Atarax) 100 mg BID@0900,1500 PO 01/20/20 15:00 01/31/20 08:10 Lorazepam (Ativan) 2 mg ASDIRECTED PRN PO SEE PROTOCOL 01/10/20 20:30 01/11/20 16:44 DC Magnesium Hydroxide (Milk Of Magnesia) 30 ml DAILYPRN PRN PO CONSTIPATION 01/10/20 20:30 Meloxicam (Mobic) 15 mg DAILY PO 01/11/20 09:00 01/31/20 08:11 Mirtazapine (Remeron) 30 mg QHS PO 01/10/20 21:00 01/30/20 20:48 Miscellaneous (Unresolved Clarification Entry) SEE LABEL COMMENTS DAILY XX 01/15/20 09:00 01/15/20 11:17 DC Multivitamins (Theragram-M) 1 tab DAILY PO 01/11/20 09:00 01/31/20 08:09 Mycophenolate Mofetil (Cellcept) 500 mg TID PO 01/10/20 09:00 01/10/20 22:33 DC 01/10/20 17:04 Mycophenolate Mofetil (Cellcept) 1,000 mg TID PO 01/10/20 21:00 01/31/20 08:09 Naltrexone HCl (Revia) 50 mg BID PO 01/10/20 09:00 01/10/20 22:33 DC 01/10/20 08:28 Naltrexone HCl (Revia) 50 mg BID PO 01/10/20 21:00 01/31/20 08:09 Olanzapine (ZyPREXA ZYDIS) 5 mg Q4HP PRN PO ANXIETY/AGITATION 01/11/20 16:45 01/19/20 16:55 DC 01/19/20 15:56 Omeprazole (PriLOSEC) 20 mg DAILY PO 01/10/20 09:00 01/10/20 22:33 DC 01/10/20 08:21 Omeprazole (PriLOSEC) 20 mg DAILY PO 01/11/20 09:00 01/31/20 08:10 Potassium Chloride (Micro-K Extencaps) 20 meq DAILY PO 01/10/20 09:00 01/10/20 22:33 DC 01/10/20 08:22 Potassium Chloride (Micro-K Extencaps) 20 meq DAILY PO 01/11/20 09:00 01/31/20 08:09 Pyridostigmine [place] (Mestinon) 90 mg QID PO 01/10/20 09:00 01/10/20 22:33 DC 01/10/20 17:02 Pyridostigmine [place] (Mestinon) 90 mg QID PO 01/10/20 21:00 01/31/20 08:10 Senna (Senokot) 2 tab QHSP PRN PO CONSTIPATION 01/10/20 22:45 Tamoxifen Citrate (Nolvadex) 20 mg DAILY PO 01/10/20 09:00 01/10/20 22:33 DC 01/10/20 08:31 Tamoxifen Citrate (Nolvadex) 20 mg DAILY PO 01/11/20 09:00 01/26/20 16:25 DC 01/26/20 08:08 Thiamine HCl (Thiamine HCl) 100 mg BID PO 01/10/20 21:00 01/13/20 20:59 DC 01/13/20 08:03 Torsemide (Demadex) 20 mg DAILY PO 01/10/20 09:00 01/10/20 22:33 DC 01/10/20 08:22 Torsemide (Demadex) 20 mg DAILY PO 01/11/20 09:00 01/19/20 16:37 DC 01/19/20 08:05 Torsemide (Demadex) 40 mg DAILY PO 01/20/20 09:00 01/31/20 08:08 Trazodone HCl (Desyrel) 50 mg QHSP PRN PO INSOMNIA 01/10/20 20:30 01/30/20 20:47 Venlafaxine HCl (Effexor Xr) 225 mg DAILY PO 01/11/20 09:00 01/31/20 08:11 Venlafaxine HCl (Effexor) 225 mg DAILY PO 01/10/20 09:00 01/10/20 22:33 DC 01/10/20 08:28 Vitamin D (Vitamin D) 5,000 units DAILY PO 01/10/20 09:00 01/10/20 22:33 DC 01/10/20 08:20 Allergies Coded Allergies: amitriptyline (Verified Allergy, Severe, SWELLING, 11/29/19) Grass (Verified Allergy, Mild, ITCHY EYES,NOSE, 11/29/19) TAPE (Verified Allergy, Mild, RASH/BLISTER, 11/29/19) TREES (Verified Allergy, Mild, ITCHY EYES,NOSE, 11/29/19) adhesive (Verified Allergy, Unknown, 11/29/19) divalproex sodium (Verified Allergy, Unknown, 11/29/19) minocycline (Verified Allergy, Unknown, 11/29/19) mold (Verified Allergy, Unknown, 11/29/19) tetracycline (Verified Allergy, Unknown, 11/29/19) bupropion (Verified Adverse Reaction, Intermediate, ESOPHAGEAL SPASMS, 11/29/19) banana (Verified Adverse Reaction, Mild, VOMITING, 11/29/19) benztropine (Verified Adverse Reaction, Mild, BLURRED VISION, 11/29/19) clindamycin (Verified Adverse Reaction, Mild, HEART BURN, 11/29/19) gabapentin (Verified Adverse Reaction, Mild, extreme weakness, 11/29/19) metaxalone (Verified Adverse Reaction, Mild, itching, 11/29/19) pregabalin (Verified Adverse Reaction, Mild, EDEMA, 11/29/19) sulfamethoxazole (Verified Adverse Reaction, Mild, DIARRHEA, 11/29/19) tizanidine (Verified Adverse Reaction, Mild, ITCHING, 11/29/19) trazodone (Verified Adverse Reaction, Mild, EDEMA, 11/29/19) trimethoprim (Verified Adverse Reaction, Mild, DIARRHEA, 11/29/19) vilazodone (Verified Adverse Reaction, Mild, MOOD CHANGES, 11/29/19) cyclobenzaprine (Verified Adverse Reaction, Unknown, IRRITABILITY, 11/29/19) valproic acid (Unverified Adverse Reaction, Unknown, DOES NOT METABOLIZE, 11/29/19) MANJULA ALBRIGHT DO Jan 31, 2020 10:42
[2020-01-31] MEDS ORDERED: BREXPIPRAZOLE 0.5MG TABLET (REXULTI) PO ONE (13:30)
[2020-01-31] MEDS: OXAZEPAM 10 MG CAP PO PRN (14:24)
[2020-01-31 16:34] VITALS: BP 102/62
--- NOTE | 2020-01-31 18:15 | ECGEPIP ---
[facility] Test Date: 2020-01-31 Pat Name: BRADY CARVAJAL Department: Room: [place] [address] Gender: Female Account Development Representative: CAROLINA : 1980 Requested By: MANJULA ALBRIGHT Order Number: [id number] Reading MD: Ronak Luna Measurements Intervals [place] Rate: 81 P: 35 MT: 146 QRS: 22 QRSD: 116 T: -74 QT: 376 QTc: 439 Interpretive Statements Normal sinus rhythm Incomplete right bundle branch block Nonspecific ST-T wave abnormalities No significant change since prior tracing of 01/26/2020 Electronically Signed on 01-31-2020 18:14:55 EST by Ronak Luna
[2020-02-01 07:21] VITALS: BP 138/84
[2020-02-01] MEDS: PILL CUTTER 1 EACH XX PRN ×3 (08:08→17:02)
[2020-02-01] MEDS: MYCOPHENOLATE MOFETIL 250 MG CAP (J7517) PO SCH ×3 (08:08→21:43)
[2020-02-01] MEDS: OMEPRAZOLE 20 MG CAP PO SCH (08:08)
[2020-02-01] MEDS: PYRIDOSTIGMINE 60 MG TAB PO SCH ×4 (08:08→21:46)
[2020-02-01] MEDS: OMEGA-3 1000MG CAPSULE PO SCH (08:08)
[2020-02-01] MEDS: POTASSIUM CHLORIDE 10 MEQ SR TABLET PO SCH (08:09)
[2020-02-01] MEDS: BREXPIPRAZOLE 0.5MG TABLET (REXULTI) PO SCH (08:09)
[2020-02-01] MEDS: MELOXICAM (MOBIC) 7.5 MG TAB PO SCH (08:09)
[2020-02-01] MEDS: MULTIVITAMINS/MINERALS THERAP 1 TAB PO SCH (08:09)
[2020-02-01] MEDS: FLUoxetine 20 MG CAP PO SCH (08:09)
[2020-02-01] MEDS: VENLAFAXINE **XR** 75MG CAPSULE PO SCH (08:09)
[2020-02-01] MEDS: DOCUSATE SODIUM 100MG CAPSULE PO SCH (08:09)
[2020-02-01] MEDS: FOLIC ACID 1 MG TAB PO SCH (08:09)
[2020-02-01] MEDS: TORSEMIDE 20 MG TAB PO SCH (08:09)
[2020-02-01] MEDS: acetaZOLAMIDE 500 MG ER CAP PO SCH ×2 (08:09→21:44)
[2020-02-01] MEDS: BACLOFEN 10 MG TAB PO SCH ×3 (08:09→21:44)
[2020-02-01] MEDS: NALTREXONE 50 MG TAB PO SCH ×2 (08:10→21:44)
[2020-02-01] MEDS: ACYCLOVIR 200 MG CAPSULE PO SCH ×2 (08:10→21:44)
[2020-02-01] MEDS: BACITRACIN OINTMENT 30GM TUBE TOP SCH ×3 (08:10→21:00)
[2020-02-01] MEDS ORDERED: SODIUM CHLORIDE 0.9% INJ 10 ML SYR IV SCH (09:00)
[2020-02-01] MEDS ORDERED: OLANZapine ORAL DISINTEGRATING TAB 5MG PO ONE (10:30)
--- NOTE | 2020-02-01 10:40 | MHIPNPDOC ---
[facility] Progress Note Progress Note DATE OF SERVICE: 02/01/20 Subjective HPI: Mitra presents today for her psych issues. The patient was met with today she reports that she hasn't noticed any changes yet on her medication. Still has self-harm thoughts but no Suicidal Thoughts. She is interested to know when she could come off the one-to-one. Nursing staff reports still quite concerned about her want to harm. Objective Appearance: Fair hygiene. Appears to be stated age. Mood: Appropriately reactive. Dysthymic. Constricted. Thought Content: No evidence of suicidal ideation. No evidence of aggressive or homicidal ideation. No evidence of delusions. Reports self-harm thoughts. Associations intact. Judgement: Poor-fair. Insight: Poor-fair. Assessment F33.2 Major depressive disorder, recurrent severe without psychotic features F60.3 Borderline personality disorder Plan Plan is to continue Rexulti, Prozac and Effexor. We'll slowly titrate up. EKG pending repeat. Vital Signs Vital Signs Date Time Temp Pulse Resp B/P (MAP) Pulse Ox O2 Delivery O2 Flow Rate FiO2 02/01/20 07:21 96.3 86 16 138/84 (102) 01/29/20 07:01 98 Room Air Current Medications Current Medications Medications (Trade) Dose Ordered Sig/Ben Route PRN Reason Start Time Stop Time Status Last Admin Dose Admin Acetaminophen (Tylenol Tab) 650 mg Q6HP PRN PO HEADACHE or DISCOMFORT 01/10/20 20:30 01/16/20 08:52 Acetazolamide (Diamox Sequels) 500 mg BID PO 01/10/20 21:00 02/01/20 08:09 Acetazolamide (Diamox) 500 mg BID PO 01/10/20 09:00 01/10/20 22:33 DC 01/10/20 08:29 Acyclovir (Zovirax) 400 mg BID PO 01/10/20 09:00 01/10/20 22:33 DC 01/10/20 08:22 Acyclovir (Zovirax) 400 mg BID PO 01/10/20 21:00 02/01/20 08:10 Al Hydrox/Mg Hydrox/Simethicone (Mylanta) 30 ml Q4HP PRN PO HEARTBURN/INDIGESTION 01/10/20 20:30 Albuterol Sulfate (Proventil, Ventolin Hfa) 2 puff Q2HP PRN INH SHORTNESS OF BREATH 01/11/20 12:15 01/20/20 08:22 Bacitracin (Bacitracin Oint) apply to left arm lacerations TID TOP 01/11/20 21:00 02/01/20 08:10 Baclofen (Lioresal) 10 mg TID PO 01/16/20 16:00 02/01/20 08:09 Baclofen (Lioresal) 10 mg TIDP PRN PO MUSCLE SPASMS 01/10/20 22:45 01/16/20 11:38 DC 01/16/20 08:51 Brexpiprazole (Rexulti) 0.5 mg DAILY PO 02/01/20 09:00 02/01/20 08:09 Clozapine (Clozaril) 100 mg QHS PO 01/10/20 21:00 01/20/20 17:14 DC 01/19/20 20:53 Clozapine (Clozaril) 125 mg QHS PO 01/20/20 21:00 01/25/20 11:52 DC 01/24/20 20:33 Clozapine (Clozaril) 150 mg QHS PO 01/20/20 21:00 01/20/20 17:16 DC Clozapine (Clozaril) 150 mg QHS PO 01/25/20 21:00 01/31/20 13:28 DC 01/30/20 20:47 Docusate Sodium (Colace) 100 mg DAILY PO 01/11/20 09:00 02/01/20 08:09 Fish Oil ([place]-3 (1000mg)) 1 cap DAILY PO 01/10/20 09:00 01/10/20 22:33 DC 01/10/20 08:29 Fish Oil (Stella-3 (1000mg)) 1 cap DAILY PO 01/11/20 09:00 02/01/20 08:08 Fluoxetine HCl (PROzac) 20 mg DAILY PO 01/10/20 09:00 01/10/20 22:33 DC 01/10/20 08:22 Fluoxetine HCl (PROzac) 20 mg DAILY PO 01/11/20 09:00 01/12/20 12:40 DC 01/12/20 08:33 Fluoxetine HCl (PROzac) 30 mg DAILY PO 01/13/20 09:00 01/16/20 11:35 DC 01/16/20 08:50 Fluoxetine HCl (PROzac) 40 mg DAILY PO 01/17/20 09:00 02/01/20 08:09 Folic Acid (Folic Acid) 1 mg DAILY PO 01/10/20 09:00 01/10/20 20:27 DC 01/10/20 08:23 Folic Acid (Folic Acid) 1 mg DAILY PO 01/11/20 09:00 02/01/20 08:09 Folic Acid (Folic Acid) 1 mg DAILY PO 01/11/20 09:00 Cancel Home Med (Med Rec Complete!) ASDIRECTED XX 01/10/20 21:45 01/10/20 21:35 DC Hydroxyzine HCl (Atarax) 50 mg Q6HP PRN PO anxiety 01/19/20 17:00 01/24/20 14:12 DC 01/24/20 12:58 Hydroxyzine HCl (Atarax) 50 mg QID PO 01/10/20 13:00 01/10/20 22:33 DC 01/10/20 17:03 Hydroxyzine HCl (Atarax) 50 mg QID PO 01/11/20 13:00 01/19/20 16:52 DC 01/19/20 15:53 Hydroxyzine HCl (Atarax) 50 mg QIDP PRN PO ANXIETY 01/10/20 22:45 01/11/20 12:19 DC 01/11/20 08:37 Hydroxyzine HCl (Atarax) 100 mg BID PO 01/19/20 21:00 01/20/20 11:16 DC 01/20/20 08:25 Hydroxyzine HCl (Atarax) 100 mg BID@0900,1500 PO 01/20/20 15:00 01/31/20 13:28 DC 01/31/20 08:10 Lorazepam (Ativan) 2 mg ASDIRECTED PRN PO SEE PROTOCOL 01/10/20 20:30 01/11/20 16:44 DC Magnesium Hydroxide (Milk Of Magnesia) 30 ml DAILYPRN PRN PO CONSTIPATION 01/10/20 20:30 Meloxicam (Mobic) 15 mg DAILY PO 01/11/20 09:00 02/01/20 08:09 Mirtazapine (Remeron) 30 mg QHS PO 01/10/20 21:00 01/31/20 13:28 DC 01/30/20 20:48 Miscellaneous (Unresolved Clarification Entry) SEE LABEL COMMENTS DAILY XX 01/15/20 09:00 01/15/20 11:17 DC Multivitamins (Theragram-M) 1 tab DAILY PO 01/11/20 09:00 02/01/20 08:09 Mycophenolate Mofetil (Cellcept) 500 mg TID PO 01/10/20 09:00 01/10/20 22:33 DC 01/10/20 17:04 Mycophenolate Mofetil (Cellcept) 1,000 mg TID PO 01/10/20 21:00 02/01/20 08:08 Naltrexone HCl (Revia) 50 mg BID PO 01/10/20 09:00 01/10/20 22:33 DC 01/10/20 08:28 Naltrexone HCl (Revia) 50 mg BID PO 01/10/20 21:00 02/01/20 08:10 Olanzapine (ZyPREXA ZYDIS) 5 mg Q4HP PRN PO ANXIETY/AGITATION 01/11/20 16:45 01/19/20 16:55 DC 01/19/20 15:56 Omeprazole (PriLOSEC) 20 mg DAILY PO 01/10/20 09:00 01/10/20 22:33 DC 01/10/20 08:21 Omeprazole (PriLOSEC) 20 mg DAILY PO 01/11/20 09:00 02/01/20 08:08 Oxazepam (Serax) 10 mg DAILYPRN PRN PO ANXIETY 01/31/20 13:30 01/31/20 14:24 Potassium Chloride (Micro-K Extencaps) 20 meq DAILY PO 01/10/20 09:00 01/10/20 22:33 DC 01/10/20 08:22 Potassium Chloride (Micro-K Extencaps) 20 meq DAILY PO 01/11/20 09:00 02/01/20 08:09 Pyridostigmine [place] (Mestinon) 90 mg QID PO 01/10/20 09:00 01/10/20 22:33 DC 01/10/20 17:02 Pyridostigmine [place] (Mestinon) 90 mg QID PO 01/10/20 21:00 02/01/20 08:08 Ramelteon (Rozerem) 8 mg QHS PRN PO INSOMNIA 01/31/20 13:30 Senna (Senokot) 2 tab QHSP PRN PO CONSTIPATION 01/10/20 22:45 Tamoxifen Citrate (Nolvadex) 20 mg DAILY PO 01/10/20 09:00 01/10/20 22:33 DC 01/10/20 08:31 Tamoxifen Citrate (Nolvadex) 20 mg DAILY PO 01/11/20 09:00 01/26/20 16:25 DC 01/26/20 08:08 Thiamine HCl (Thiamine HCl) 100 mg BID PO 01/10/20 21:00 01/13/20 20:59 DC 01/13/20 08:03 Torsemide (Demadex) 20 mg DAILY PO 01/10/20 09:00 01/10/20 22:33 DC 01/10/20 08:22 Torsemide (Demadex) 20 mg DAILY PO 01/11/20 09:00 01/19/20 16:37 DC 01/19/20 08:05 Torsemide (Demadex) 40 mg DAILY PO 01/20/20 09:00 02/01/20 08:09 Trazodone HCl (Desyrel) 50 mg QHSP PRN PO INSOMNIA 01/10/20 20:30 01/31/20 13:29 DC 01/30/20 20:47 Venlafaxine HCl (Effexor Xr) 225 mg DAILY PO 01/11/20 09:00 02/01/20 08:09 Venlafaxine HCl (Effexor) 225 mg DAILY PO 01/10/20 09:00 01/10/20 22:33 DC 01/10/20 08:28 Vitamin D (Vitamin D) 5,000 units DAILY PO 01/10/20 09:00 01/10/20 22:33 DC 01/10/20 08:20 Allergies Coded Allergies: amitriptyline (Verified Allergy, Severe, SWELLING, 11/29/19) Grass (Verified Allergy, Mild, ITCHY EYES,NOSE, 11/29/19) TAPE (Verified Allergy, Mild, RASH/BLISTER, 11/29/19) TREES (Verified Allergy, Mild, ITCHY EYES,NOSE, 11/29/19) adhesive (Verified Allergy, Unknown, 11/29/19) divalproex sodium (Verified Allergy, Unknown, 11/29/19) minocycline (Verified Allergy, Unknown, 11/29/19) mold (Verified Allergy, Unknown, 11/29/19) tetracycline (Verified Allergy, Unknown, 11/29/19) bupropion (Verified Adverse Reaction, Intermediate, ESOPHAGEAL SPASMS, 11/29/19) banana (Verified Adverse Reaction, Mild, VOMITING, 11/29/19) benztropine (Verified Adverse Reaction, Mild, BLURRED VISION, 11/29/19) clindamycin (Verified Adverse Reaction, Mild, HEART BURN, 11/29/19) gabapentin (Verified Adverse Reaction, Mild, extreme weakness, 11/29/19) metaxalone (Verified Adverse Reaction, Mild, itching, 11/29/19) pregabalin (Verified Adverse Reaction, Mild, EDEMA, 11/29/19) sulfamethoxazole (Verified Adverse Reaction, Mild, DIARRHEA, 11/29/19) tizanidine (Verified Adverse Reaction, Mild, ITCHING, 11/29/19) trazodone (Verified Adverse Reaction, Mild, EDEMA, 11/29/19) trimethoprim (Verified Adverse Reaction, Mild, DIARRHEA, 11/29/19) vilazodone (Verified Adverse Reaction, Mild, MOOD CHANGES, 11/29/19) cyclobenzaprine (Verified Adverse Reaction, Unknown, IRRITABILITY, 11/29/19) valproic acid (Unverified Adverse Reaction, Unknown, DOES NOT METABOLIZE, 11/29/19) MANJULA ALBRIGHT DO Feb 01, 2020 10:40
[2020-02-01] MEDS ORDERED: LIDOCAINE 4% CREAM 5GM (LMX4) TOP ONE (12:00)
[2020-02-01 16:47] VITALS: BP 143/84
[2020-02-01] MEDS: RAMELTEON 8 MG TAB (ROZEREM) PO PRN (22:40)
[2020-02-02 06:51] VITALS: BP 130/74
--- NOTE | 2020-02-02 08:39 | MHIPN ---
DATE: 01/29/2020 The patient today refused to see me again, and so I am not able to complete an evaluation. MTDD
[2020-02-02] MEDS: ACYCLOVIR 200 MG CAPSULE PO SCH ×2 (09:00→21:36)
[2020-02-02] MEDS: BACITRACIN OINTMENT 30GM TUBE TOP SCH ×3 (09:00→21:00)
[2020-02-02] MEDS: MYCOPHENOLATE MOFETIL 250 MG CAP (J7517) PO SCH ×3 (09:00→21:34)
[2020-02-02] MEDS: FLUoxetine 20 MG CAP PO SCH (09:01)
[2020-02-02] MEDS: POTASSIUM CHLORIDE 10 MEQ SR TABLET PO SCH (09:02)
[2020-02-02] MEDS: MELOXICAM (MOBIC) 7.5 MG TAB PO SCH (09:02)
[2020-02-02] MEDS: VENLAFAXINE **XR** 75MG CAPSULE PO SCH (09:02)
[2020-02-02] MEDS: DOCUSATE SODIUM 100MG CAPSULE PO SCH (09:03)
[2020-02-02] MEDS: PYRIDOSTIGMINE 60 MG TAB PO SCH ×4 (09:03→21:37)
[2020-02-02] MEDS: TORSEMIDE 20 MG TAB PO SCH (09:04)
[2020-02-02] MEDS: NALTREXONE 50 MG TAB PO SCH ×2 (09:04→21:38)
[2020-02-02] MEDS: OMEGA-3 1000MG CAPSULE PO SCH (09:06)
[2020-02-02] MEDS: OXAZEPAM 10 MG CAP PO PRN (09:08)
[2020-02-02] MEDS: BACLOFEN 10 MG TAB PO SCH ×3 (09:08→21:38)
[2020-02-02] MEDS: MULTIVITAMINS/MINERALS THERAP 1 TAB PO SCH (09:08)
[2020-02-02] MEDS: BREXPIPRAZOLE 0.5MG TABLET (REXULTI) PO SCH (09:09)
[2020-02-02] MEDS: FOLIC ACID 1 MG TAB PO SCH (09:09)
[2020-02-02] MEDS: OMEPRAZOLE 20 MG CAP PO SCH (09:09)
[2020-02-02] MEDS: acetaZOLAMIDE 500 MG ER CAP PO SCH ×2 (09:11→21:36)
--- NOTE | 2020-02-02 11:14 | MHIPNPDOC ---
[facility] Progress Note Progress Note DATE OF SERVICE: 02/02/20 Subjective HPI: The patient is met with today. She reports that shes doing somewhat better since the change and that shes doing okay off the sitter. She otherwise reports that her depression is making slight improvements. Objective Appearance: Hygiene fair. Affect: Less disthymic. More reactive. Thought Form: Linear and goal directed. Associations intact. Thought Content: Denies suicidal thoughts. Reports self mutilating thoughts improving. Judgement: Poor. Insight: Poor. Assessment F33.2 Major depressive disorder, recurrent severe without psychotic features F60.3 Borderline personality disorder Plan Plan is to continue Rexulti, Effexor, and Prozac at current dose. Serax 10 mg as PRN. Hopefully, can get the patient more stable before early next week. Vital Signs Vital Signs Date Time Temp Pulse Resp B/P (MAP) Pulse Ox O2 Delivery O2 Flow Rate FiO2 02/02/20 06:51 97.8 72 16 130/74 (92) 96 Room Air Current Medications Current Medications Medications (Trade) Dose Ordered Sig/Ben Route PRN Reason Start Time Stop Time Status Last Admin Dose Admin Acetaminophen (Tylenol Tab) 650 mg Q6HP PRN PO HEADACHE or DISCOMFORT 01/10/20 20:30 01/16/20 08:52 Acetazolamide (Diamox Sequels) 500 mg BID PO 01/10/20 21:00 02/02/20 09:11 Acetazolamide (Diamox) 500 mg BID PO 01/10/20 09:00 01/10/20 22:33 DC 01/10/20 08:29 Acyclovir (Zovirax) 400 mg BID PO 01/10/20 09:00 01/10/20 22:33 DC 01/10/20 08:22 Acyclovir (Zovirax) 400 mg BID PO 01/10/20 21:00 02/02/20 09:00 Al Hydrox/Mg Hydrox/Simethicone (Mylanta) 30 ml Q4HP PRN PO HEARTBURN/INDIGESTION 01/10/20 20:30 Albuterol Sulfate (Proventil, Ventolin Hfa) 2 puff Q2HP PRN INH SHORTNESS OF BREATH 01/11/20 12:15 01/20/20 08:22 Bacitracin (Bacitracin Oint) apply to left arm lacerations TID TOP 10/21/20 21:00 02/01/20 15:58 Baclofen (Lioresal) 10 mg TID PO 01/16/20 16:00 02/02/20 09:08 Baclofen (Lioresal) 10 mg TIDP PRN PO MUSCLE SPASMS 01/10/20 22:45 01/16/20 11:38 DC 01/16/20 08:51 Brexpiprazole (Rexulti) 0.5 mg DAILY PO 02/01/20 09:00 02/02/20 09:09 Clozapine (Clozaril) 100 mg QHS PO 01/10/20 21:00 01/20/20 17:14 DC 01/19/20 20:53 Clozapine (Clozaril) 125 mg QHS PO 01/20/20 21:00 01/25/20 11:52 DC 01/24/20 20:33 Clozapine (Clozaril) 150 mg QHS PO 01/20/20 21:00 01/20/20 17:16 DC Clozapine (Clozaril) 150 mg QHS PO 01/25/20 21:00 01/31/20 13:28 DC 01/30/20 20:47 Docusate Sodium (Colace) 100 mg DAILY PO 01/11/20 09:00 02/02/20 09:03 Fish Oil ([place]-3 (1000mg)) 1 cap DAILY PO 01/10/20 09:00 01/10/20 22:33 DC 01/10/20 08:29 Fish Oil ([place]-3 (1000mg)) 1 cap DAILY PO 01/11/20 09:00 02/02/20 09:06 Fluoxetine HCl (PROzac) 20 mg DAILY PO 01/10/20 09:00 01/10/20 22:33 DC 01/10/20 08:22 Fluoxetine HCl (PROzac) 20 mg DAILY PO 01/11/20 09:00 01/12/20 12:40 DC 01/12/20 08:33 Fluoxetine HCl (PROzac) 30 mg DAILY PO 01/13/20 09:00 01/16/20 11:35 DC 01/16/20 08:50 Fluoxetine HCl (PROzac) 40 mg DAILY PO 01/17/20 09:00 02/02/20 09:01 Folic Acid (Folic Acid) 1 mg DAILY PO 01/10/20 09:00 01/10/20 20:27 DC 01/10/20 08:23 Folic Acid (Folic Acid) 1 mg DAILY PO 01/11/20 09:00 02/02/20 09:09 Folic Acid (Folic Acid) 1 mg DAILY PO 01/11/20 09:00 Cancel Heparin Sodium (Heparin (Flush)) 500 units Q30D@09 IV 02/01/20 09:00 02/01/20 15:33 Home Med (Med Rec Complete!) ASDIRECTED XX 01/10/20 21:45 01/10/20 21:35 DC Hydroxyzine HCl (Atarax) 50 mg Q6HP PRN PO anxiety 01/19/20 17:00 01/24/20 14:12 DC 01/24/20 12:58 Hydroxyzine HCl (Atarax) 50 mg QID PO 01/10/20 13:00 01/10/20 22:33 DC 01/10/20 17:03 Hydroxyzine HCl (Atarax) 50 mg QID PO 01/11/20 13:00 01/19/20 16:52 DC 01/19/20 15:53 Hydroxyzine HCl (Atarax) 50 mg QIDP PRN PO ANXIETY 01/10/20 22:45 01/11/20 12:19 DC 01/11/20 08:37 Hydroxyzine HCl (Atarax) 100 mg BID PO 01/19/20 21:00 01/20/20 11:16 DC 01/20/20 08:25 Hydroxyzine HCl (Atarax) 100 mg BID@0900,1500 PO 01/20/20 15:00 01/31/20 13:28 DC 01/31/20 08:10 Lorazepam (Ativan) 2 mg ASDIRECTED PRN PO SEE PROTOCOL 01/10/20 20:30 01/11/20 16:44 DC Magnesium Hydroxide (Milk Of Magnesia) 30 ml DAILYPRN PRN PO CONSTIPATION 01/10/20 20:30 Meloxicam (Mobic) 15 mg DAILY PO 01/11/20 09:00 02/02/20 09:02 Mirtazapine (Remeron) 30 mg QHS PO 01/10/20 21:00 01/31/20 13:28 DC 01/30/20 20:48 Miscellaneous (Unresolved Clarification Entry) SEE LABEL COMMENTS DAILY XX 01/15/20 09:00 01/15/20 11:17 DC Multivitamins (Theragram-M) 1 tab DAILY PO 01/11/20 09:00 02/02/20 09:08 Mycophenolate Mofetil (Cellcept) 500 mg TID PO 01/10/20 09:00 01/10/20 22:33 DC 01/10/20 17:04 Mycophenolate Mofetil (Cellcept) 1,000 mg TID PO 01/10/20 21:00 02/02/20 09:00 Naltrexone HCl (Revia) 50 mg BID PO 01/10/20 09:00 01/10/20 22:33 DC 01/10/20 08:28 Naltrexone HCl (Revia) 50 mg BID PO 01/10/20 21:00 02/02/20 09:04 Olanzapine (ZyPREXA ZYDIS) 5 mg Q4HP PRN PO ANXIETY/AGITATION 01/11/20 16:45 01/19/20 16:55 DC 01/19/20 15:56 Omeprazole (PriLOSEC) 20 mg DAILY PO 01/10/20 09:00 01/10/20 22:33 DC 01/10/20 08:21 Omeprazole (PriLOSEC) 20 mg DAILY PO 01/11/20 09:00 02/02/20 09:09 Oxazepam (Serax) 10 mg DAILYPRN PRN PO ANXIETY 01/31/20 13:30 02/02/20 09:08 Potassium Chloride (Micro-K Extencaps) 20 meq DAILY PO 01/10/20 09:00 01/10/20 22:33 DC 01/10/20 08:22 Potassium Chloride (Micro-K Extencaps) 20 meq DAILY PO 01/11/20 09:00 02/02/20 09:02 Pyridostigmine [place] (Mestinon) 90 mg QID PO 01/10/20 09:00 01/10/20 22:33 DC 01/10/20 17:02 Pyridostigmine [place] (Mestinon) 90 mg QID PO 01/10/20 21:00 02/02/20 09:03 Ramelteon (Rozerem) 8 mg QHS PRN PO INSOMNIA 01/31/20 13:30 02/01/20 22:40 Senna (Senokot) 2 tab QHSP PRN PO CONSTIPATION 01/10/20 22:45 Sodium Chloride (Saline Lock Flush) 10 ml Q30D IV 02/01/20 09:00 02/01/20 15:33 Tamoxifen Citrate (Nolvadex) 20 mg DAILY PO 01/10/20 09:00 01/10/20 22:33 DC 01/10/20 08:31 Tamoxifen Citrate (Nolvadex) 20 mg DAILY PO 01/11/20 09:00 01/26/20 16:25 DC 01/26/20 08:08 Thiamine HCl (Thiamine HCl) 100 mg BID PO 01/10/20 21:00 01/13/20 20:59 DC 01/13/20 08:03 Torsemide (Demadex) 20 mg DAILY PO 01/10/20 09:00 01/10/20 22:33 DC 01/10/20 08:22 Torsemide (Demadex) 20 mg DAILY PO 01/11/20 09:00 01/19/20 16:37 DC 01/19/20 08:05 Torsemide (Demadex) 40 mg DAILY PO 01/20/20 09:00 02/02/20 09:04 Trazodone HCl (Desyrel) 50 mg QHSP PRN PO INSOMNIA 01/10/20 20:30 01/31/20 13:29 DC 01/30/20 20:47 Venlafaxine HCl (Effexor Xr) 225 mg DAILY PO 01/11/20 09:00 02/02/20 09:02 Venlafaxine HCl (Effexor) 225 mg DAILY PO 01/10/20 09:00 01/10/20 22:33 DC 01/10/20 08:28 Vitamin D (Vitamin D) 5,000 units DAILY PO 01/10/20 09:00 01/10/20 22:33 DC 01/10/20 08:20 Allergies Coded Allergies: amitriptyline (Verified Allergy, Severe, SWELLING, 11/29/19) Grass (Verified Allergy, Mild, ITCHY EYES,NOSE, 11/29/19) TAPE (Verified Allergy, Mild, RASH/BLISTER, 11/29/19) TREES (Verified Allergy, Mild, ITCHY EYES,NOSE, 11/29/19) adhesive (Verified Allergy, Unknown, 11/29/19) divalproex sodium (Verified Allergy, Unknown, 11/29/19) minocycline (Verified Allergy, Unknown, 11/29/19) mold (Verified Allergy, Unknown, 11/29/19) tetracycline (Verified Allergy, Unknown, 11/29/19) bupropion (Verified Adverse Reaction, Intermediate, ESOPHAGEAL SPASMS, 11/29/19) banana (Verified Adverse Reaction, Mild, VOMITING, 11/29/19) benztropine (Verified Adverse Reaction, Mild, BLURRED VISION, 11/29/19) clindamycin (Verified Adverse Reaction, Mild, HEART BURN, 11/29/19) gabapentin (Verified Adverse Reaction, Mild, extreme weakness, 11/29/19) metaxalone (Verified Adverse Reaction, Mild, itching, 11/29/19) pregabalin (Verified Adverse Reaction, Mild, EDEMA, 11/29/19) sulfamethoxazole (Verified Adverse Reaction, Mild, DIARRHEA, 11/29/19) tizanidine (Verified Adverse Reaction, Mild, ITCHING, 11/29/19) trazodone (Verified Adverse Reaction, Mild, EDEMA, 11/29/19) trimethoprim (Verified Adverse Reaction, Mild, DIARRHEA, 11/29/19) vilazodone (Verified Adverse Reaction, Mild, MOOD CHANGES, 11/29/19) cyclobenzaprine (Verified Adverse Reaction, Unknown, IRRITABILITY, 11/29/19) valproic acid (Unverified Adverse Reaction, Unknown, DOES NOT METABOLIZE, 11/29/19) MANJULA ALBRIGHT DO Feb 02, 2020 11:14
[2020-02-02] MEDS: MAALOX 30 ML SUSP *UDC PO PRN (16:00)
[2020-02-02 17:28] VITALS: BP 127/64
[2020-02-02] MEDS: RAMELTEON 8 MG TAB (ROZEREM) PO PRN (21:33)
[2020-02-03] MEDS: MAALOX 30 ML SUSP *UDC PO PRN ×3 (06:19→17:46)
[2020-02-03] MEDS: OXAZEPAM 10 MG CAP PO PRN ×2 (06:44→12:07)
[2020-02-03 06:55] VITALS: BP 126/92
[2020-02-03] MEDS: BACITRACIN OINTMENT 30GM TUBE TOP SCH ×3 (08:23→20:28)
[2020-02-03] MEDS: PILL CUTTER 1 EACH XX PRN ×3 (08:23→16:53)
[2020-02-03] MEDS: BREXPIPRAZOLE 0.5MG TABLET (REXULTI) PO SCH (08:24)
[2020-02-03] MEDS: MYCOPHENOLATE MOFETIL 250 MG CAP (J7517) PO SCH ×3 (08:24→20:27)
[2020-02-03] MEDS: PYRIDOSTIGMINE 60 MG TAB PO SCH ×4 (08:25→20:27)
[2020-02-03] MEDS: acetaZOLAMIDE 500 MG ER CAP PO SCH ×2 (08:27→20:27)
[2020-02-03] MEDS: OMEPRAZOLE 20 MG CAP PO SCH (08:28)
[2020-02-03] MEDS: TORSEMIDE 20 MG TAB PO SCH (08:28)
[2020-02-03] MEDS: NALTREXONE 50 MG TAB PO SCH ×2 (08:29→20:27)
[2020-02-03] MEDS: BACLOFEN 10 MG TAB PO SCH ×3 (08:29→20:27)
[2020-02-03] MEDS: MELOXICAM (MOBIC) 7.5 MG TAB PO SCH (08:29)
[2020-02-03] MEDS: FLUoxetine 20 MG CAP PO SCH (08:30)
[2020-02-03] MEDS: VENLAFAXINE **XR** 75MG CAPSULE PO SCH (08:30)
[2020-02-03] MEDS: MULTIVITAMINS/MINERALS THERAP 1 TAB PO SCH (08:56)
[2020-02-03] MEDS: ACYCLOVIR 200 MG CAPSULE PO SCH ×2 (08:56→20:27)
[2020-02-03] MEDS: POTASSIUM CHLORIDE 10 MEQ SR TABLET PO SCH (08:56)
[2020-02-03] MEDS: OMEGA-3 1000MG CAPSULE PO SCH (08:56)
[2020-02-03] MEDS: FOLIC ACID 1 MG TAB PO SCH (08:56)
[2020-02-03] MEDS: DOCUSATE SODIUM 100MG CAPSULE PO SCH (08:56)
--- NOTE | 2020-02-03 10:17 | MHIPNPDOC ---
[facility] Progress Note Progress Note DATE OF SERVICE: 02/03/20 Subjective HPI: Mitra presents today to follow-up on her depression. She reports that she is doing fairly well, without any major problems. She states that she has felt some increasing anxiety at times, but is unable to identify the rationale or the feeling. Mitra noted that she is able to control her self-mutilating thoughts and has improved. She remained off a one-to-one without any self-harm behavior. Objective Appearance: Well nourished. Well groomed. Appears to be stated age. Mood: Generally good. Appropriately reactive. Less dysthymic. Speech: Normal volume. Spontaneous and Fluid. Normal rate. Cognition: Alert, Attentive, and Oriented to person, place, time. Eye contact better. Thought Form: Linear and goal directed. Thought Content: No evidence of aggressive or homicidal ideation. No thoughts of self harm. No evidence of suicidal ideation. No evidence of delusions. Perception: No perceptual abnormalities noted. Judgement: Intact as evidenced by decision making in the recent past. Insight: Good insight into symptoms and treatment options. Assessment F32.2 Major depressive disorder, single episode, severe without psychotic features F60.3 Borderline personality disorder Plan Continue Effexor and Prozac at this time. We will increase Serax to 10 milligrams BID PRN to help with anxiety. She appears to be able to use her coping skills much better than before. Vital Signs Vital Signs Date Time Temp Pulse Resp B/P (MAP) Pulse Ox O2 Delivery O2 Flow Rate FiO2 02/03/20 06:55 98.1 97 16 126/92 (103) 98 Room Air Current Medications Current Medications Medications (Trade) Dose Ordered Sig/Ben Route PRN Reason Start Time Stop Time Status Last Admin Dose Admin Acetaminophen (Tylenol Tab) 650 mg Q6HP PRN PO HEADACHE or DISCOMFORT 01/10/20 20:30 01/16/20 08:52 Acetazolamide (Diamox Sequels) 500 mg BID PO 01/10/20 21:00 02/03/20 08:27 Acetazolamide (Diamox) 500 mg BID PO 01/10/20 09:00 01/10/20 22:33 DC 01/10/20 08:29 Acyclovir (Zovirax) 400 mg BID PO 01/10/20 09:00 10/20/20 22:33 DC 01/10/20 08:22 Acyclovir (Zovirax) 400 mg BID PO 01/10/20 21:00 02/03/20 08:56 Al Hydrox/Mg Hydrox/Simethicone (Mylanta) 30 ml Q4HP PRN PO HEARTBURN/INDIGESTION 01/10/20 20:30 02/03/20 06:19 Albuterol Sulfate (Proventil, Ventolin Hfa) 2 puff Q2HP PRN INH SHORTNESS OF BREATH 01/11/20 12:15 01/20/20 08:22 Bacitracin (Bacitracin Oint) apply to left arm lacerations TID TOP 01/11/20 21:00 02/03/20 08:23 Baclofen (Lioresal) 10 mg TID PO 01/16/20 16:00 02/03/20 08:29 Baclofen (Lioresal) 10 mg TIDP PRN PO MUSCLE SPASMS 01/10/20 22:45 01/16/20 11:38 DC 01/16/20 08:51 Brexpiprazole (Rexulti) 0.5 mg DAILY PO 02/01/20 09:00 02/03/20 08:24 Clozapine (Clozaril) 100 mg QHS PO 01/10/20 21:00 01/20/20 17:14 DC 01/19/20 20:53 Clozapine (Clozaril) 125 mg QHS PO 01/20/20 21:00 01/25/20 11:52 DC 01/24/20 20:33 Clozapine (Clozaril) 150 mg QHS PO 01/20/20 21:00 01/20/20 17:16 DC Clozapine (Clozaril) 150 mg QHS PO 01/25/20 21:00 01/31/20 13:28 DC 01/30/20 20:47 Docusate Sodium (Colace) 100 mg DAILY PO 01/11/20 09:00 02/03/20 08:56 Fish Oil ([place]-3 (1000mg)) 1 cap DAILY PO 01/10/20 09:00 01/10/20 22:33 DC 01/10/20 08:29 Fish Oil ([place]-3 (1000mg)) 1 cap DAILY PO 01/11/20 09:00 02/03/20 08:56 Fluoxetine HCl (PROzac) 20 mg DAILY PO 01/10/20 09:00 01/10/20 22:33 DC 01/10/20 08:22 Fluoxetine HCl (PROzac) 20 mg DAILY PO 01/11/20 09:00 01/12/20 12:40 DC 01/12/20 08:33 Fluoxetine HCl (PROzac) 30 mg DAILY PO 01/13/20 09:00 01/16/20 11:35 DC 01/16/20 08:50 Fluoxetine HCl (PROzac) 40 mg DAILY PO 01/17/20 09:00 02/03/20 08:30 Folic Acid (Folic Acid) 1 mg DAILY PO 01/10/20 09:00 01/10/20 20:27 DC 01/10/20 08:23 Folic Acid (Folic Acid) 1 mg DAILY PO 01/11/20 09:00 02/03/20 08:56 Folic Acid (Folic Acid) 1 mg DAILY PO 01/11/20 09:00 Cancel Heparin Sodium (Heparin (Flush)) 500 units Q30D@09 IV 02/01/20 09:00 02/01/20 15:33 Home Med (Med Rec Complete!) ASDIRECTED XX 01/10/20 21:45 01/10/20 21:35 DC Hydroxyzine HCl (Atarax) 50 mg Q6HP PRN PO anxiety 01/19/20 17:00 01/24/20 14:12 DC 01/24/20 12:58 Hydroxyzine HCl (Atarax) 50 mg QID PO 01/10/20 13:00 01/10/20 22:33 DC 01/10/20 17:03 Hydroxyzine HCl (Atarax) 50 mg QID PO 01/11/20 13:00 01/19/20 16:52 DC 01/19/20 15:53 Hydroxyzine HCl (Atarax) 50 mg QIDP PRN PO ANXIETY 01/10/20 22:45 01/11/20 12:19 DC 01/11/20 08:37 Hydroxyzine HCl (Atarax) 100 mg BID PO 01/19/20 21:00 01/20/20 11:16 DC 01/20/20 08:25 Hydroxyzine HCl (Atarax) 100 mg BID@0900,1500 PO 01/20/20 15:00 01/31/20 13:28 DC 01/31/20 08:10 Lorazepam (Ativan) 2 mg ASDIRECTED PRN PO SEE PROTOCOL 01/10/20 20:30 01/11/20 16:44 DC Magnesium Hydroxide (Milk Of Magnesia) 30 ml DAILYPRN PRN PO CONSTIPATION 01/10/20 20:30 Meloxicam (Mobic) 15 mg DAILY PO 01/11/20 09:00 02/03/20 08:29 Mirtazapine (Remeron) 30 mg QHS PO 01/10/20 21:00 01/31/20 13:28 DC 01/30/20 20:48 Miscellaneous (Unresolved Clarification Entry) SEE LABEL COMMENTS DAILY XX 01/15/20 09:00 01/15/20 11:17 DC Multivitamins (Theragram-M) 1 tab DAILY PO 01/11/20 09:00 02/03/20 08:56 Mycophenolate Mofetil (Cellcept) 500 mg TID PO 01/10/20 09:00 01/10/20 22:33 DC 01/10/20 17:04 Mycophenolate Mofetil (Cellcept) 1,000 mg TID PO 01/10/20 21:00 02/03/20 08:24 Naltrexone HCl (Revia) 50 mg BID PO 01/10/20 09:00 01/10/20 22:33 DC 01/10/20 08:28 Naltrexone HCl (Revia) 50 mg BID PO 01/10/20 21:00 02/03/20 08:29 Olanzapine (ZyPREXA ZYDIS) 5 mg Q4HP PRN PO ANXIETY/AGITATION 01/11/20 16:45 01/19/20 16:55 DC 01/19/20 15:56 Omeprazole (PriLOSEC) 20 mg DAILY PO 01/10/20 09:00 01/10/20 22:33 DC 01/10/20 08:21 Omeprazole (PriLOSEC) 20 mg DAILY PO 01/11/20 09:00 02/03/20 08:28 Oxazepam (Serax) 10 mg DAILYPRN PRN PO ANXIETY 01/31/20 13:30 02/03/20 06:44 Potassium Chloride (Micro-K Extencaps) 20 meq DAILY PO 01/10/20 09:00 01/10/20 22:33 DC 01/10/20 08:22 Potassium Chloride (Micro-K Extencaps) 20 meq DAILY PO 01/11/20 09:00 02/03/20 08:56 Pyridostigmine [place] (Mestinon) 90 mg QID PO 01/10/20 09:00 01/10/20 22:33 DC 01/10/20 17:02 Pyridostigmine [place] (Mestinon) 90 mg QID PO 01/10/20 21:00 02/03/20 08:25 Ramelteon (Rozerem) 8 mg QHS PRN PO INSOMNIA 01/31/20 13:30 02/02/20 21:33 Senna (Senokot) 2 tab QHSP PRN PO CONSTIPATION 01/10/20 22:45 Sodium Chloride (Saline Lock Flush) 10 ml Q30D IV 02/01/20 09:00 02/01/20 15:33 Tamoxifen Citrate (Nolvadex) 20 mg DAILY PO 01/10/20 09:00 01/10/20 22:33 DC 01/10/20 08:31 Tamoxifen Citrate (Nolvadex) 20 mg DAILY PO 01/11/20 09:00 01/26/20 16:25 DC 01/26/20 08:08 Thiamine HCl (Thiamine HCl) 100 mg BID PO 01/10/20 21:00 01/13/20 20:59 DC 01/13/20 08:03 Torsemide (Demadex) 20 mg DAILY PO 01/10/20 09:00 01/10/20 22:33 DC 01/10/20 08:22 Torsemide (Demadex) 20 mg DAILY PO 01/11/20 09:00 01/19/20 16:37 DC 01/19/20 08:05 Torsemide (Demadex) 40 mg DAILY PO 01/20/20 09:00 02/03/20 08:28 Trazodone HCl (Desyrel) 50 mg QHSP PRN PO INSOMNIA 01/10/20 20:30 01/31/20 13:29 DC 01/30/20 20:47 Venlafaxine HCl (Effexor Xr) 225 mg DAILY PO 01/11/20 09:00 02/03/20 08:30 Venlafaxine HCl (Effexor) 225 mg DAILY PO 01/10/20 09:00 01/10/20 22:33 DC 01/10/20 08:28 Vitamin D (Vitamin D) 5,000 units DAILY PO 01/10/20 09:00 01/10/20 22:33 DC 01/10/20 08:20 Allergies Coded Allergies: amitriptyline (Verified Allergy, Severe, SWELLING, 11/29/19) Grass (Verified Allergy, Mild, ITCHY EYES,NOSE, 11/29/19) TAPE (Verified Allergy, Mild, RASH/BLISTER, 11/29/19) TREES (Verified Allergy, Mild, ITCHY EYES,NOSE, 11/29/19) adhesive (Verified Allergy, Unknown, 11/29/19) divalproex sodium (Verified Allergy, Unknown, 11/29/19) minocycline (Verified Allergy, Unknown, 11/29/19) mold (Verified Allergy, Unknown, 11/29/19) tetracycline (Verified Allergy, Unknown, 11/29/19) bupropion (Verified Adverse Reaction, Intermediate, ESOPHAGEAL SPASMS, 11/29/19) banana (Verified Adverse Reaction, Mild, VOMITING, 11/29/19) benztropine (Verified Adverse Reaction, Mild, BLURRED VISION, 11/29/19) clindamycin (Verified Adverse Reaction, Mild, HEART BURN, 11/29/19) gabapentin (Verified Adverse Reaction, Mild, extreme weakness, 11/29/19) metaxalone (Verified Adverse Reaction, Mild, itching, 11/29/19) pregabalin (Verified Adverse Reaction, Mild, EDEMA, 11/29/19) sulfamethoxazole (Verified Adverse Reaction, Mild, DIARRHEA, 11/29/19) tizanidine (Verified Adverse Reaction, Mild, ITCHING, 11/29/19) trazodone (Verified Adverse Reaction, Mild, EDEMA, 11/29/19) trimethoprim (Verified Adverse Reaction, Mild, DIARRHEA, 11/29/19) vilazodone (Verified Adverse Reaction, Mild, MOOD CHANGES, 11/29/19) cyclobenzaprine (Verified Adverse Reaction, Unknown, IRRITABILITY, 11/29/19) valproic acid (Unverified Adverse Reaction, Unknown, DOES NOT METABOLIZE, 11/29/19) MANJULA ALBRIGHT DO Feb 03, 2020 10:17
[2020-02-03 16:12] VITALS: BP 125/72
[2020-02-03] MEDS: LOPERAMIDE 2 MG CAPLET PO PRN (19:33)
[2020-02-03] MEDS: RAMELTEON 8 MG TAB (ROZEREM) PO PRN (20:30)
[2020-02-04] MEDS: LOPERAMIDE 2 MG CAPLET PO PRN ×2 (01:40→11:05)
[2020-02-04 06:42] VITALS: BP 148/82
[2020-02-04] MEDS: OXAZEPAM 10 MG CAP PO PRN ×2 (06:51→19:27)
[2020-02-04] MEDS: PYRIDOSTIGMINE 60 MG TAB PO SCH ×4 (08:18→20:37)
[2020-02-04] MEDS: PILL CUTTER 1 EACH XX PRN ×3 (08:18→16:41)
[2020-02-04] MEDS: DOCUSATE SODIUM 100MG CAPSULE PO SCH (08:19)
[2020-02-04] MEDS: OMEGA-3 1000MG CAPSULE PO SCH (08:19)
[2020-02-04] MEDS: MELOXICAM (MOBIC) 7.5 MG TAB PO SCH (08:19)
[2020-02-04] MEDS: ACYCLOVIR 200 MG CAPSULE PO SCH ×2 (08:19→20:37)
[2020-02-04] MEDS: MYCOPHENOLATE MOFETIL 250 MG CAP (J7517) PO SCH ×3 (08:19→20:37)
[2020-02-04] MEDS: FLUoxetine 20 MG CAP PO SCH (08:19)
[2020-02-04] MEDS: OMEPRAZOLE 20 MG CAP PO SCH (08:19)
[2020-02-04] MEDS: VENLAFAXINE **XR** 75MG CAPSULE PO SCH (08:19)
[2020-02-04] MEDS: POTASSIUM CHLORIDE 10 MEQ SR TABLET PO SCH (08:20)
[2020-02-04] MEDS: acetaZOLAMIDE 500 MG ER CAP PO SCH ×2 (08:20→20:37)
[2020-02-04] MEDS: NALTREXONE 50 MG TAB PO SCH ×2 (08:20→20:37)
[2020-02-04] MEDS: MULTIVITAMINS/MINERALS THERAP 1 TAB PO SCH (08:20)
[2020-02-04] MEDS: BACLOFEN 10 MG TAB PO SCH ×3 (08:20→20:38)
[2020-02-04] MEDS: TORSEMIDE 20 MG TAB PO SCH (08:20)
[2020-02-04] MEDS: BREXPIPRAZOLE 0.5MG TABLET (REXULTI) PO SCH (08:20)
[2020-02-04] MEDS: FOLIC ACID 1 MG TAB PO SCH (08:20)
[2020-02-04] MEDS: BACITRACIN OINTMENT 30GM TUBE TOP SCH ×3 (08:21→20:38)
[2020-02-04 16:31] VITALS: BP 130/69
[2020-02-05 06:14] VITALS: BP 136/92
[2020-02-05] MEDS: PILL CUTTER 1 EACH XX PRN ×3 (08:52→16:12)
[2020-02-05] MEDS: BREXPIPRAZOLE 0.5MG TABLET (REXULTI) PO SCH (08:53)
[2020-02-05] MEDS: ACETAMINOPHEN TAB 650MG DOSE (2X325MG) PO PRN ×2 (08:53→15:06)
[2020-02-05] MEDS: BACLOFEN 10 MG TAB PO SCH ×3 (08:54→20:29)
[2020-02-05] MEDS: POTASSIUM CHLORIDE 10 MEQ SR TABLET PO SCH (08:54)
[2020-02-05] MEDS: FLUoxetine 20 MG CAP PO SCH (08:54)
[2020-02-05] MEDS: PYRIDOSTIGMINE 60 MG TAB PO SCH ×4 (08:54→20:29)
[2020-02-05] MEDS: ACYCLOVIR 200 MG CAPSULE PO SCH ×2 (08:54→20:30)
[2020-02-05] MEDS: MELOXICAM (MOBIC) 7.5 MG TAB PO SCH (08:54)
[2020-02-05] MEDS: VENLAFAXINE **XR** 75MG CAPSULE PO SCH (08:54)
[2020-02-05] MEDS: OMEGA-3 1000MG CAPSULE PO SCH (08:55)
[2020-02-05] MEDS: MYCOPHENOLATE MOFETIL 250 MG CAP (J7517) PO SCH ×3 (08:55→20:29)
[2020-02-05] MEDS: MULTIVITAMINS/MINERALS THERAP 1 TAB PO SCH (08:55)
[2020-02-05] MEDS: NALTREXONE 50 MG TAB PO SCH ×2 (08:55→20:29)
[2020-02-05] MEDS: TORSEMIDE 20 MG TAB PO SCH (08:55)
[2020-02-05] MEDS: FOLIC ACID 1 MG TAB PO SCH (08:55)
[2020-02-05] MEDS: acetaZOLAMIDE 500 MG ER CAP PO SCH ×2 (08:55→20:30)
[2020-02-05] MEDS: OMEPRAZOLE 20 MG CAP PO SCH (08:55)
[2020-02-05] MEDS: DOCUSATE SODIUM 100MG CAPSULE PO SCH (08:56)
[2020-02-05] MEDS: BACITRACIN OINTMENT 30GM TUBE TOP SCH ×3 (08:56→21:00)
[2020-02-05] MEDS: OXAZEPAM 10 MG CAP PO PRN ×2 (11:06→18:37)
[2020-02-05 16:17] VITALS: BP 135/88
[2020-02-05 16:33] VITALS: BP 140/74
[2020-02-05] MEDS: IBUPROFEN 400 MG TAB PO PRN (17:01)
[2020-02-06 06:37] VITALS: BP 136/14
[2020-02-06] MEDS: BACITRACIN OINTMENT 30GM TUBE TOP SCH ×3 (09:00→21:00)
[2020-02-06] MEDS: BREXPIPRAZOLE 0.5MG TABLET (REXULTI) PO SCH (09:52)
[2020-02-06] MEDS: BACLOFEN 10 MG TAB PO SCH ×3 (09:52→21:54)
[2020-02-06] MEDS: FLUoxetine 20 MG CAP PO SCH (09:52)
[2020-02-06] MEDS: DOCUSATE SODIUM 100MG CAPSULE PO SCH (09:52)
[2020-02-06] MEDS: acetaZOLAMIDE 500 MG ER CAP PO SCH ×2 (09:52→21:54)
[2020-02-06] MEDS: OMEGA-3 1000MG CAPSULE PO SCH (09:53)
[2020-02-06] MEDS: POTASSIUM CHLORIDE 10 MEQ SR TABLET PO SCH (09:54)
[2020-02-06] MEDS: TORSEMIDE 20 MG TAB PO SCH (09:54)
[2020-02-06] MEDS: OMEPRAZOLE 20 MG CAP PO SCH (09:54)
[2020-02-06] MEDS: VENLAFAXINE **XR** 75MG CAPSULE PO SCH (09:55)
[2020-02-06] MEDS: MYCOPHENOLATE MOFETIL 250 MG CAP (J7517) PO SCH ×3 (09:56→21:54)
[2020-02-06] MEDS: FOLIC ACID 1 MG TAB PO SCH (09:56)
[2020-02-06] MEDS: PYRIDOSTIGMINE 60 MG TAB PO SCH ×4 (09:57→21:54)
[2020-02-06] MEDS: MELOXICAM (MOBIC) 7.5 MG TAB PO SCH (09:57)
[2020-02-06] MEDS: NALTREXONE 50 MG TAB PO SCH ×2 (09:58→21:54)
[2020-02-06] MEDS: MULTIVITAMINS/MINERALS THERAP 1 TAB PO SCH (09:59)
[2020-02-06] MEDS: PILL CUTTER 1 EACH XX PRN ×2 (10:01→17:47)
[2020-02-06] MEDS: ACYCLOVIR 200 MG CAPSULE PO SCH ×2 (10:01→21:54)
--- NOTE | 2020-02-06 11:13 | MHIPNPDOC ---
[facility] Progress Note Progress Note DATE OF SERVICE: 02/06/20 Subjective HPI: Mitra presents today for a check up. Patient reports that she is doing somewhat better. Patient reports that she is working with her nurse and making solid progress towards working on coping skills and being off the sitter. She claims of feeling anxious but overall encouraged. MEDICATIONS: She notes that the Serax is helpful and the Brexpiprazole is making some progress. Objective Appearance: Well groomed. Well nourished. Appears to be stated age. Mood: Appropriately reactive. Less dysthymic. Generally good. Thought Form: Linear and goal directed. Thought Content: No evidence of delusions. No evidence of aggressive or homicidal ideation. No evidence of suicidal ideation. Some mutilation ideation. Judgement: Mildly improving. Insight: Mildly improving. Assessment F60.3 Borderline personality disorder F33.2 Major depressive disorder, recurrent severe without psychotic features Plan Patient is doing somewhat better. Continue Brexpiprazole increased to 1 mg daily, Effexor, and Prozac. Continue Serax 10 mg BID PRN. Vital Signs Vital Signs Date Time Temp Pulse Resp B/P (MAP) Pulse Ox O2 Delivery O2 Flow Rate FiO2 02/06/20 06:37 97.3 92 14 136/14 (54) Room Air 02/05/20 06:14 96 Current Medications Current Medications Medications (Trade) Dose Ordered Sig/Ben Route PRN Reason Start Time Stop Time Status Last Admin Dose Admin Acetaminophen (Tylenol Tab) 650 mg Q6HP PRN PO HEADACHE or DISCOMFORT 01/10/20 20:30 02/05/20 15:06 Acetazolamide (Diamox Sequels) 500 mg BID PO 01/10/20 21:00 02/06/20 09:52 Acetazolamide (Diamox) 500 mg BID PO 01/10/20 09:00 01/10/20 22:33 DC 01/10/20 08:29 Acyclovir (Zovirax) 400 mg BID PO 01/10/20 09:00 01/10/20 22:33 DC 01/10/20 08:22 Acyclovir (Zovirax) 400 mg BID PO 01/10/20 21:00 02/06/20 10:01 Al Hydrox/Mg Hydrox/Simethicone (Mylanta) 30 ml Q4HP PRN PO HEARTBURN/INDIGESTION 01/10/20 20:30 11/13/20 17:46 Albuterol Sulfate (Proventil, Ventolin Hfa) 2 puff Q2HP PRN INH SHORTNESS OF BREATH 01/11/20 12:15 01/20/20 08:22 Bacitracin (Bacitracin Oint) apply to left arm lacerations TID TOP 01/11/20 21:00 02/03/20 08:23 Baclofen (Lioresal) 10 mg TID PO 01/16/20 16:00 02/06/20 09:52 Baclofen (Lioresal) 10 mg TIDP PRN PO MUSCLE SPASMS 01/10/20 22:45 01/16/20 11:38 DC 01/16/20 08:51 Brexpiprazole (Rexulti) 0.5 mg DAILY PO 02/01/20 09:00 02/06/20 09:52 Clozapine (Clozaril) 100 mg QHS PO 01/10/20 21:00 01/20/20 17:14 DC 01/19/20 20:53 Clozapine (Clozaril) 125 mg QHS PO 01/20/20 21:00 01/25/20 11:52 DC 01/24/20 20:33 Clozapine (Clozaril) 150 mg QHS PO 01/20/20 21:00 01/20/20 17:16 DC Clozapine (Clozaril) 150 mg QHS PO 01/25/20 21:00 01/31/20 13:28 DC 01/30/20 20:47 Docusate Sodium (Colace) 100 mg DAILY PO 01/11/20 09:00 02/06/20 09:52 Fish Oil ([place]-3 (1000mg)) 1 cap DAILY PO 01/10/20 09:00 01/10/20 22:33 DC 01/10/20 08:29 Fish Oil ([place]-3 (1000mg)) 1 cap DAILY PO 01/11/20 09:00 02/06/20 09:53 Fluoxetine HCl (PROzac) 20 mg DAILY PO 01/10/20 09:00 01/10/20 22:33 DC 01/10/20 08:22 Fluoxetine HCl (PROzac) 20 mg DAILY PO 01/11/20 09:00 01/12/20 12:40 DC 01/12/20 08:33 Fluoxetine HCl (PROzac) 30 mg DAILY PO 01/13/20 09:00 01/16/20 11:35 DC 01/16/20 08:50 Fluoxetine HCl (PROzac) 40 mg DAILY PO 01/17/20 09:00 02/06/20 09:52 Folic Acid (Folic Acid) 1 mg DAILY PO 01/10/20 09:00 01/10/20 20:27 DC 01/10/20 08:23 Folic Acid (Folic Acid) 1 mg DAILY PO 01/11/20 09:00 02/06/20 09:56 Folic Acid (Folic Acid) 1 mg DAILY PO 01/11/20 09:00 Cancel Heparin Sodium (Heparin (Flush)) 500 units Q30D@09 IV 02/01/20 09:00 02/01/20 15:33 Home Med (Med Rec Complete!) ASDIRECTED XX 01/10/20 21:45 01/10/20 21:35 DC Hydroxyzine HCl (Atarax) 50 mg Q6HP PRN PO anxiety 01/19/20 17:00 01/24/20 14:12 DC 01/24/20 12:58 Hydroxyzine HCl (Atarax) 50 mg QID PO 01/10/20 13:00 01/10/20 22:33 DC 01/10/20 17:03 Hydroxyzine HCl (Atarax) 50 mg QID PO 01/11/20 13:00 01/19/20 16:52 DC 01/19/20 15:53 Hydroxyzine HCl (Atarax) 50 mg QIDP PRN PO ANXIETY 01/10/20 22:45 01/11/20 12:19 DC 01/11/20 08:37 Hydroxyzine HCl (Atarax) 100 mg BID PO 01/19/20 21:00 01/20/20 11:16 DC 01/20/20 08:25 Hydroxyzine HCl (Atarax) 100 mg BID@0900,1500 PO 01/20/20 15:00 01/31/20 13:28 DC 01/31/20 08:10 Ibuprofen (Advil) 400 mg Q6HP PRN PO PAIN 02/05/20 15:00 02/05/20 17:01 Loperamide HCl (Imodium) 2 mg ASDIRECTED PRN PO DIARRHEA 02/03/20 19:30 02/04/20 11:05 Lorazepam (Ativan) 2 mg ASDIRECTED PRN PO SEE PROTOCOL 01/10/20 20:30 01/11/20 16:44 DC Magnesium Hydroxide (Milk Of Magnesia) 30 ml DAILYPRN PRN PO CONSTIPATION 01/10/20 20:30 Meloxicam (Mobic) 15 mg DAILY PO 01/11/20 09:00 02/06/20 09:57 Mirtazapine (Remeron) 30 mg QHS PO 01/10/20 21:00 01/31/20 13:28 DC 01/30/20 20:48 Miscellaneous (Unresolved Clarification Entry) SEE LABEL COMMENTS DAILY XX 01/15/20 09:00 01/15/20 11:17 DC Multivitamins (Theragram-M) 1 tab DAILY PO 01/11/20 09:00 02/06/20 09:59 Mycophenolate Mofetil (Cellcept) 500 mg TID PO 01/10/20 09:00 01/10/20 22:33 DC 01/10/20 17:04 Mycophenolate Mofetil (Cellcept) 1,000 mg TID PO 01/10/20 21:00 02/06/20 09:56 Naltrexone HCl (Revia) 50 mg BID PO 01/10/20 09:00 01/10/20 22:33 DC 01/10/20 08:28 Naltrexone HCl (Revia) 50 mg BID PO 01/10/20 21:00 02/06/20 09:58 Olanzapine (ZyPREXA ZYDIS) 5 mg Q4HP PRN PO ANXIETY/AGITATION 01/11/20 16:45 01/19/20 16:55 DC 01/19/20 15:56 Omeprazole (PriLOSEC) 20 mg DAILY PO 01/10/20 09:00 01/10/20 22:33 DC 01/10/20 08:21 Omeprazole (PriLOSEC) 20 mg DAILY PO 01/11/20 09:00 02/06/20 09:54 Oxazepam (Serax) 10 mg BIDP PRN PO ANXIETY 02/03/20 12:00 02/05/20 18:37 Oxazepam (Serax) 10 mg DAILYPRN PRN PO ANXIETY 01/31/20 13:30 02/03/20 11:55 DC 02/03/20 06:44 Potassium Chloride (Micro-K Extencaps) 20 meq DAILY PO 01/10/20 09:00 01/10/20 22:33 DC 01/10/20 08:22 Potassium Chloride (Micro-K Extencaps) 20 meq DAILY PO 01/11/20 09:00 02/06/20 09:54 Pyridostigmine [place] (Mestinon) 90 mg QID PO 01/10/20 09:00 01/10/20 22:33 DC 01/10/20 17:02 Pyridostigmine Ragland (Mestinon) 90 mg QID PO 01/10/20 21:00 02/06/20 09:57 Ramelteon (Rozerem) 8 mg QHS PRN PO INSOMNIA 01/31/20 13:30 02/03/20 20:30 Senna (Senokot) 2 tab QHSP PRN PO CONSTIPATION 01/10/20 22:45 Sodium Chloride (Saline Lock Flush) 10 ml Q30D IV 02/01/20 09:00 02/01/20 15:33 Tamoxifen Citrate (Nolvadex) 20 mg DAILY PO 01/10/20 09:00 01/10/20 22:33 DC 01/10/20 08:31 Tamoxifen Citrate (Nolvadex) 20 mg DAILY PO 01/11/20 09:00 01/26/20 16:25 DC 01/26/20 08:08 Thiamine HCl (Thiamine HCl) 100 mg BID PO 01/10/20 21:00 01/13/20 20:59 DC 01/13/20 08:03 Torsemide (Demadex) 20 mg DAILY PO 01/10/20 09:00 01/10/20 22:33 DC 01/10/20 08:22 Torsemide (Demadex) 20 mg DAILY PO 01/11/20 09:00 01/19/20 16:37 DC 01/19/20 08:05 Torsemide (Demadex) 40 mg DAILY PO 01/20/20 09:00 02/06/20 09:54 Trazodone HCl (Desyrel) 50 mg QHSP PRN PO INSOMNIA 01/10/20 20:30 01/31/20 13:29 DC 01/30/20 20:47 Venlafaxine HCl (Effexor Xr) 225 mg DAILY PO 01/11/20 09:00 02/06/20 09:55 Venlafaxine HCl (Effexor) 225 mg DAILY PO 01/10/20 09:00 01/10/20 22:33 DC 01/10/20 08:28 Vitamin D (Vitamin D) 5,000 units DAILY PO 01/10/20 09:00 01/10/20 22:33 DC 01/10/20 08:20 Allergies Coded Allergies: amitriptyline (Verified Allergy, Severe, SWELLING, 11/29/19) Grass (Verified Allergy, Mild, ITCHY EYES,NOSE, 11/29/19) TAPE (Verified Allergy, Mild, RASH/BLISTER, 11/29/19) TREES (Verified Allergy, Mild, ITCHY EYES,NOSE, 11/29/19) adhesive (Verified Allergy, Unknown, 11/29/19) divalproex sodium (Verified Allergy, Unknown, 11/29/19) minocycline (Verified Allergy, Unknown, 11/29/19) mold (Verified Allergy, Unknown, 11/29/19) tetracycline (Verified Allergy, Unknown, 11/29/19) bupropion (Verified Adverse Reaction, Intermediate, ESOPHAGEAL SPASMS, 11/29/19) banana (Verified Adverse Reaction, Mild, VOMITING, 11/29/19) benztropine (Verified Adverse Reaction, Mild, BLURRED VISION, 11/29/19) clindamycin (Verified Adverse Reaction, Mild, HEART BURN, 11/29/19) gabapentin (Verified Adverse Reaction, Mild, extreme weakness, 11/29/19) metaxalone (Verified Adverse Reaction, Mild, itching, 11/29/19) pregabalin (Verified Adverse Reaction, Mild, EDEMA, 11/29/19) sulfamethoxazole (Verified Adverse Reaction, Mild, DIARRHEA, 11/29/19) tizanidine (Verified Adverse Reaction, Mild, ITCHING, 11/29/19) trazodone (Verified Adverse Reaction, Mild, EDEMA, 11/29/19) trimethoprim (Verified Adverse Reaction, Mild, DIARRHEA, 11/29/19) vilazodone (Verified Adverse Reaction, Mild, MOOD CHANGES, 11/29/19) cyclobenzaprine (Verified Adverse Reaction, Unknown, IRRITABILITY, 11/29/19) valproic acid (Unverified Adverse Reaction, Unknown, DOES NOT METABOLIZE, 11/29/19) MANJULA ALBRIGHT DO Feb 06, 2020 11:13
[2020-02-06] MEDS: ACETAMINOPHEN TAB 650MG DOSE (2X325MG) PO PRN (12:50)
[2020-02-06] MEDS: OXAZEPAM 10 MG CAP PO PRN (12:50)
[2020-02-06] MEDS: RAMELTEON 8 MG TAB (ROZEREM) PO PRN (21:54)
[2020-02-07 06:10] VITALS: BP 138/88
[2020-02-07] MEDS: PILL CUTTER 1 EACH XX PRN ×3 (08:42→16:09)
[2020-02-07] MEDS: acetaZOLAMIDE 500 MG ER CAP PO SCH ×2 (08:43→21:16)
[2020-02-07] MEDS: ACYCLOVIR 200 MG CAPSULE PO SCH ×2 (08:44→21:16)
[2020-02-07] MEDS: BACITRACIN OINTMENT 30GM TUBE TOP SCH ×3 (08:45→21:00)
[2020-02-07] MEDS: MYCOPHENOLATE MOFETIL 250 MG CAP (J7517) PO SCH ×3 (08:45→21:16)
[2020-02-07] MEDS: OMEGA-3 1000MG CAPSULE PO SCH (08:45)
[2020-02-07] MEDS: TORSEMIDE 20 MG TAB PO SCH (08:46)
[2020-02-07] MEDS: PYRIDOSTIGMINE 60 MG TAB PO SCH ×4 (08:46→21:15)
[2020-02-07] MEDS: MELOXICAM (MOBIC) 7.5 MG TAB PO SCH (08:46)
[2020-02-07] MEDS: BREXPIPRAZOLE 0.5MG TABLET (REXULTI) PO SCH (08:47)
[2020-02-07] MEDS: BACLOFEN 10 MG TAB PO SCH ×3 (08:47→21:16)
[2020-02-07] MEDS: POTASSIUM CHLORIDE 10 MEQ SR TABLET PO SCH (08:48)
[2020-02-07] MEDS: FLUoxetine 20 MG CAP PO SCH (08:48)
[2020-02-07] MEDS: NALTREXONE 50 MG TAB PO SCH ×2 (08:48→21:16)
[2020-02-07] MEDS: OMEPRAZOLE 20 MG CAP PO SCH (08:49)
[2020-02-07] MEDS: FOLIC ACID 1 MG TAB PO SCH (08:49)
[2020-02-07] MEDS: MULTIVITAMINS/MINERALS THERAP 1 TAB PO SCH (08:49)
[2020-02-07] MEDS: VENLAFAXINE **XR** 75MG CAPSULE PO SCH (08:49)
[2020-02-07] MEDS: OXAZEPAM 10 MG CAP PO PRN (08:51)
[2020-02-07] MEDS: DOCUSATE SODIUM 100MG CAPSULE PO SCH (08:59)
--- NOTE | 2020-02-07 14:44 | MHIPNPDOC ---
[facility] Progress Note Progress Note DATE OF SERVICE: 02/07/20 HISTORY: As per Ed report "Patient is a 39-year-old female, who, as per ED report: 'PT has long hx of cutting for emotional relief. She admits to 2 suicide attempts by OD. She has had multiple admissions to [facility] with last admission 11/2019. PT states that she has been feeling depressed for the past two weeks. She typically will have SI up to 10x daily when she is doing well but current she states the SI is non stop. "I want to " "I hope I never wake up" Last night PT intended to cut her worst to kill herself but decided to wait until today when her son went to school. Instead of her wrist she cut her forearm and "Blood gushed and it freaked me out" The site of her blood "gushing" helped PT refocus and she sought medical care. She feels she is still suicidal and that if she is d/c she cannot trust herself to remain safe. She cannot identify a trigger for her latest cycle of depression. She feels overwhelmed and constantly tired. Her sleep has been interupted and her appetite has been poor. PT is agreeable to admission and is aware she will require transfer due to [facility] being at capacity". VITAL SIGNS: See below. NEW TEST RESULTS: See below CURRENT MEDICATIONS: See below. MENTAL STATUS EXAMINATION: Patient is a 39-year old female, who is alert, cooperative, laying in bed, dressed in hospital clothes. Speech: Is normal in rate, rhythm, tone and volume. Language skills are Intact Thought processes including: liner and coherent. Thought content: is positive for depressed/anxious thoughts, positive for fleeting passive suicidal ideation without a plan or intent. Negative for homicidal ideation, negative for paranoid thoughts or other thought delusions . Abstract reasoning, and computation: fair. Description of associations: not loose. Description of abnormal or psychotic thoughts: denies thought delusions, denies active suicidal thoughts, reports passive, fleeting suicidal thoughts. Denies homicidal ideation, denies bizarre/grandiose delusions Judgment: improving Insight: fair Orientation: x 3 Recent and remote memory: fir. Attention span and concentration: good. Language: adequate. Fund of knowledge: average. Mood: euthymic at this time Affect: congruent with mood DIAGNOSES: F32.2 Major depressive disorder, single episode, severe without psychotic features F60.3 Borderline personality disorder ASSESSMENT: Patient is improved today, she say she has spoken to her Nurses who have been really helpful. She says talking usually helps her relieve her pain. She denies feeling actively suicidal, denies having a plan or intent. MANAGEMENT PLAN: Continue as per Dr. Montes TIME SPENT: 15 minutes. Vital Signs Vital Signs Date Time Temp Pulse Resp B/P (MAP) Pulse Ox O2 Delivery O2 Flow Rate FiO2 02/07/20 06:10 98.3 108 18 138/88 (105) Room Air 02/05/20 06:14 96 Current Medications Current Medications Medications (Trade) Dose Ordered Sig/Ben Route PRN Reason Start Time Stop Time Status Last Admin Dose Admin Acetaminophen (Tylenol Tab) 650 mg Q6HP PRN PO HEADACHE or DISCOMFORT 01/10/20 20:30 02/06/20 12:50 Acetazolamide (Diamox Sequels) 500 mg BID PO 01/10/20 21:00 02/07/20 08:43 Acetazolamide (Diamox) 500 mg BID PO 01/10/20 09:00 01/10/20 22:33 DC 01/10/20 08:29 Acyclovir (Zovirax) 400 mg BID PO 01/10/20 09:00 01/10/20 22:33 DC 01/10/20 08:22 Acyclovir (Zovirax) 400 mg BID PO 01/10/20 21:00 02/07/20 08:44 Al Hydrox/Mg Hydrox/Simethicone (Mylanta) 30 ml Q4HP PRN PO HEARTBURN/INDIGESTION 01/10/20 20:30 02/03/20 17:46 Albuterol Sulfate (Proventil, Ventolin Hfa) 2 puff Q2HP PRN INH SHORTNESS OF BREATH 01/11/20 12:15 01/20/20 08:22 Bacitracin (Bacitracin Oint) apply to left arm lacerations TID TOP 01/11/20 21:00 02/07/20 08:45 Baclofen (Lioresal) 10 mg TID PO 01/16/20 16:00 02/07/20 08:47 Baclofen (Lioresal) 10 mg TIDP PRN PO MUSCLE SPASMS 01/10/20 22:45 01/16/20 11:38 DC 01/16/20 08:51 Brexpiprazole (Rexulti) 0.5 mg DAILY PO 02/01/20 09:00 02/06/20 12:33 DC 02/06/20 09:52 Brexpiprazole (Rexulti) 1 mg DAILY PO 02/07/20 09:00 02/07/20 08:47 Clozapine (Clozaril) 100 mg QHS PO 01/10/20 21:00 01/20/20 17:14 DC 01/19/20 20:53 Clozapine (Clozaril) 125 mg QHS PO 01/20/20 21:00 01/25/20 11:52 DC 01/24/20 20:33 Clozapine (Clozaril) 150 mg QHS PO 01/20/20 21:00 01/20/20 17:16 DC Clozapine (Clozaril) 150 mg QHS PO 01/25/20 21:00 01/31/20 13:28 DC 01/30/20 20:47 Docusate Sodium (Colace) 100 mg DAILY PO 01/11/20 09:00 02/06/20 09:52 Fish Oil ([place]-3 (1000mg)) 1 cap DAILY PO 01/10/20 09:00 01/10/20 22:33 DC 01/10/20 08:29 Fish Oil ([place]-3 (1000mg)) 1 cap DAILY PO 01/11/20 09:00 02/07/20 08:45 Fluoxetine HCl (PROzac) 20 mg DAILY PO 01/10/20 09:00 01/10/20 22:33 DC 01/10/20 08:22 Fluoxetine HCl (PROzac) 20 mg DAILY PO 01/11/20 09:00 01/12/20 12:40 DC 01/12/20 08:33 Fluoxetine HCl (PROzac) 30 mg DAILY PO 01/13/20 09:00 01/16/20 11:35 DC 01/16/20 08:50 Fluoxetine HCl (PROzac) 40 mg DAILY PO 01/17/20 09:00 02/07/20 08:48 Folic Acid (Folic Acid) 1 mg DAILY PO 01/10/20 09:00 01/10/20 20:27 DC 01/10/20 08:23 Folic Acid (Folic Acid) 1 mg DAILY PO 01/11/20 09:00 02/07/20 08:49 Folic Acid (Folic Acid) 1 mg DAILY PO 01/11/20 09:00 Cancel Heparin Sodium (Heparin (Flush)) 500 units Q30D@09 IV 02/01/20 09:00 02/01/20 15:33 Home Med (Med Rec Complete!) ASDIRECTED XX 01/10/20 21:45 01/10/20 21:35 DC Hydroxyzine HCl (Atarax) 50 mg Q6HP PRN PO anxiety 01/19/20 17:00 01/24/20 14:12 DC 01/24/20 12:58 Hydroxyzine HCl (Atarax) 50 mg QID PO 01/10/20 13:00 01/10/20 22:33 DC 01/10/20 17:03 Hydroxyzine HCl (Atarax) 50 mg QID PO 01/11/20 13:00 01/19/20 16:52 DC 01/19/20 15:53 Hydroxyzine HCl (Atarax) 50 mg QIDP PRN PO ANXIETY 01/10/20 22:45 01/11/20 12:19 DC 01/11/20 08:37 Hydroxyzine HCl (Atarax) 100 mg BID PO 01/19/20 21:00 01/20/20 11:16 DC 01/20/20 08:25 Hydroxyzine HCl (Atarax) 100 mg BID@0900,1500 PO 01/20/20 15:00 01/31/20 13:28 DC 01/31/20 08:10 Ibuprofen (Advil) 400 mg Q6HP PRN PO PAIN 02/05/20 15:00 02/05/20 17:01 Loperamide HCl (Imodium) 2 mg ASDIRECTED PRN PO DIARRHEA 02/03/20 19:30 02/04/20 11:05 Lorazepam (Ativan) 2 mg ASDIRECTED PRN PO SEE PROTOCOL 01/10/20 20:30 01/11/20 16:44 DC Magnesium Hydroxide (Milk Of Magnesia) 30 ml DAILYPRN PRN PO CONSTIPATION 01/10/20 20:30 Meloxicam (Mobic) 15 mg DAILY PO 01/11/20 09:00 02/07/20 08:46 Mirtazapine (Remeron) 30 mg QHS PO 01/10/20 21:00 01/31/20 13:28 DC 01/30/20 20:48 Miscellaneous (Unresolved Clarification Entry) SEE LABEL COMMENTS DAILY XX 01/15/20 09:00 01/15/20 11:17 DC Multivitamins (Theragram-M) 1 tab DAILY PO 01/11/20 09:00 02/07/20 08:49 Mycophenolate Mofetil (Cellcept) 500 mg TID PO 01/10/20 09:00 01/10/20 22:33 DC 01/10/20 17:04 Mycophenolate Mofetil (Cellcept) 1,000 mg TID PO 01/10/20 21:00 02/07/20 08:45 Naltrexone HCl (Revia) 50 mg BID PO 01/10/20 09:00 01/10/20 22:33 DC 01/10/20 08:28 Naltrexone HCl (Revia) 50 mg BID PO 01/10/20 21:00 02/07/20 08:48 Olanzapine (ZyPREXA ZYDIS) 5 mg Q4HP PRN PO ANXIETY/AGITATION 01/11/20 16:45 01/19/20 16:55 DC 01/19/20 15:56 Omeprazole (PriLOSEC) 20 mg DAILY PO 01/10/20 09:00 01/10/20 22:33 DC 01/10/20 08:21 Omeprazole (PriLOSEC) 20 mg DAILY PO 01/11/20 09:00 02/07/20 08:49 Oxazepam (Serax) 10 mg BIDP PRN PO ANXIETY 02/03/20 12:00 02/07/20 08:51 Oxazepam (Serax) 10 mg DAILYPRN PRN PO ANXIETY 01/31/20 13:30 02/03/20 11:55 DC 02/03/20 06:44 Potassium Chloride (Micro-K Extencaps) 20 meq DAILY PO 01/10/20 09:00 01/10/20 22:33 DC 01/10/20 08:22 Potassium Chloride (Micro-K Extencaps) 20 meq DAILY PO 01/11/20 09:00 02/07/20 08:48 Pyridostigmine [place] (Mestinon) 90 mg QID PO 01/10/20 09:00 01/10/20 22:33 DC 01/10/20 17:02 Pyridostigmine [place] (Mestinon) 90 mg QID PO 01/10/20 21:00 02/07/20 13:23 Ramelteon (Rozerem) 8 mg QHS PRN PO INSOMNIA 01/31/20 13:30 02/06/20 21:54 Senna (Senokot) 2 tab QHSP PRN PO CONSTIPATION 01/10/20 22:45 Sodium Chloride (Saline Lock Flush) 10 ml Q30D IV 02/01/20 09:00 02/01/20 15:33 Tamoxifen Citrate (Nolvadex) 20 mg DAILY PO 01/10/20 09:00 01/10/20 22:33 DC 01/10/20 08:31 Tamoxifen Citrate (Nolvadex) 20 mg DAILY PO 01/11/20 09:00 01/26/20 16:25 DC 01/26/20 08:08 Thiamine HCl (Thiamine HCl) 100 mg BID PO 01/10/20 21:00 01/13/20 20:59 DC 01/13/20 08:03 Torsemide (Demadex) 20 mg DAILY PO 01/10/20 09:00 01/10/20 22:33 DC 01/10/20 08:22 Torsemide (Demadex) 20 mg DAILY PO 01/11/20 09:00 01/19/20 16:37 DC 01/19/20 08:05 Torsemide (Demadex) 40 mg DAILY PO 01/20/20 09:00 02/07/20 08:46 Trazodone HCl (Desyrel) 50 mg QHSP PRN PO INSOMNIA 01/10/20 20:30 01/31/20 13:29 DC 01/30/20 20:47 Venlafaxine HCl (Effexor Xr) 225 mg DAILY PO 01/11/20 09:00 02/07/20 08:49 Venlafaxine HCl (Effexor) 225 mg DAILY PO 01/10/20 09:00 01/10/20 22:33 DC 01/10/20 08:28 Vitamin D (Vitamin D) 5,000 units DAILY PO 01/10/20 09:00 01/10/20 22:33 DC 01/10/20 08:20 Allergies Coded Allergies: amitriptyline (Verified Allergy, Severe, SWELLING, 11/29/19) Grass (Verified Allergy, Mild, ITCHY EYES,NOSE, 11/29/19) TAPE (Verified Allergy, Mild, RASH/BLISTER, 11/29/19) TREES (Verified Allergy, Mild, ITCHY EYES,NOSE, 11/29/19) adhesive (Verified Allergy, Unknown, 11/29/19) divalproex sodium (Verified Allergy, Unknown, 11/29/19) minocycline (Verified Allergy, Unknown, 11/29/19) mold (Verified Allergy, Unknown, 11/29/19) tetracycline (Verified Allergy, Unknown, 11/29/19) bupropion (Verified Adverse Reaction, Intermediate, ESOPHAGEAL SPASMS, 11/29/19) banana (Verified Adverse Reaction, Mild, VOMITING, 11/29/19) benztropine (Verified Adverse Reaction, Mild, BLURRED VISION, 11/29/19) clindamycin (Verified Adverse Reaction, Mild, HEART BURN, 11/29/19) gabapentin (Verified Adverse Reaction, Mild, extreme weakness, 11/29/19) metaxalone (Verified Adverse Reaction, Mild, itching, 11/29/19) pregabalin (Verified Adverse Reaction, Mild, EDEMA, 11/29/19) sulfamethoxazole (Verified Adverse Reaction, Mild, DIARRHEA, 11/29/19) tizanidine (Verified Adverse Reaction, Mild, ITCHING, 11/29/19) trazodone (Verified Adverse Reaction, Mild, EDEMA, 11/29/19) trimethoprim (Verified Adverse Reaction, Mild, DIARRHEA, 11/29/19) vilazodone (Verified Adverse Reaction, Mild, MOOD CHANGES, 11/29/19) cyclobenzaprine (Verified Adverse Reaction, Unknown, IRRITABILITY, 11/29/19) valproic acid (Unverified Adverse Reaction, Unknown, DOES NOT METABOLIZE, 11/29/19) MARK ANTHONY HDZ MD Feb 07, 2020 14:37
[2020-02-07] MEDS: ACETAMINOPHEN TAB 650MG DOSE (2X325MG) PO PRN (16:09)
[2020-02-07] MEDS: IBUPROFEN 400 MG TAB PO PRN (18:04)
[2020-02-07] MEDS: RAMELTEON 8 MG TAB (ROZEREM) PO PRN (21:17)
[2020-02-08 06:31] VITALS: BP 142/89
[2020-02-08] MEDS: MULTIVITAMINS/MINERALS THERAP 1 TAB PO SCH (08:28)
[2020-02-08] MEDS: FOLIC ACID 1 MG TAB PO SCH (08:28)
[2020-02-08] MEDS: MELOXICAM (MOBIC) 7.5 MG TAB PO SCH (08:28)
[2020-02-08] MEDS: FLUoxetine 20 MG CAP PO SCH (08:28)
[2020-02-08] MEDS: OMEPRAZOLE 20 MG CAP PO SCH (08:28)
[2020-02-08] MEDS: BACLOFEN 10 MG TAB PO SCH ×3 (08:28→20:46)
[2020-02-08] MEDS: MYCOPHENOLATE MOFETIL 250 MG CAP (J7517) PO SCH ×3 (08:30→20:46)
[2020-02-08] MEDS: TORSEMIDE 20 MG TAB PO SCH (08:31)
[2020-02-08] MEDS: DOCUSATE SODIUM 100MG CAPSULE PO SCH (08:33)
[2020-02-08] MEDS: OMEGA-3 1000MG CAPSULE PO SCH (08:34)
[2020-02-08] MEDS: POTASSIUM CHLORIDE 10 MEQ SR TABLET PO SCH (08:34)
[2020-02-08] MEDS: VENLAFAXINE **XR** 75MG CAPSULE PO SCH (08:34)
[2020-02-08] MEDS: BREXPIPRAZOLE 0.5MG TABLET (REXULTI) PO SCH (08:35)
[2020-02-08] MEDS: NALTREXONE 50 MG TAB PO SCH ×2 (08:35→20:46)
[2020-02-08] MEDS: acetaZOLAMIDE 500 MG ER CAP PO SCH ×2 (08:36→20:46)
[2020-02-08] MEDS: ACYCLOVIR 200 MG CAPSULE PO SCH ×2 (08:36→20:47)
[2020-02-08] MEDS: PYRIDOSTIGMINE 60 MG TAB PO SCH ×4 (08:38→20:47)
[2020-02-08] MEDS: BACITRACIN OINTMENT 30GM TUBE TOP SCH ×3 (08:39→20:47)
[2020-02-08] MEDS: OXAZEPAM 10 MG CAP PO PRN (08:40)
[2020-02-08] MEDS: ACETAMINOPHEN TAB 650MG DOSE (2X325MG) PO PRN (08:41)
--- NOTE | 2020-02-08 16:25 | MHIPNPDOC ---
[facility] Progress Note Progress Note DATE OF SERVICE: 02/08/20 HISTORY: As per Ed report "Patient is a 39-year-old female, who, as per ED report: 'PT has long hx of cutting for emotional relief. She admits to 2 suicide attempts by OD. She has had multiple admissions to [facility] with last admission 11/2019. PT states that she has been feeling depressed for the past two weeks. She typically will have SI up to 10x daily when she is doing well but current she states the SI is non stop. "I want to " "I hope I never wake up" Last night PT intended to cut her worst to kill herself but decided to wait until today when her son went to school. Instead of her wrist she cut her forearm and "Blood gushed and it freaked me out" The site of her blood "gushing" helped PT refocus and she sought medical care. She feels she is still suicidal and that if she is d/c she cannot trust herself to remain safe. She cannot identify a trigger for her latest cycle of depression. She feels overwhelmed and constantly tired. Her sleep has been interupted and her appetite has been poor. PT is agreeable to admission and is aware she will require transfer due to [facility] being at capacity". VITAL SIGNS: See below. NEW TEST RESULTS: See below CURRENT MEDICATIONS: See below. MENTAL STATUS EXAMINATION: Patient is a 39-year old female, who is alert, cooperative, laying in bed, dressed in personal clothes. Speech: Is normal in rate, rhythm, tone and volume. Language skills are Intact Thought processes including: liner and coherent. Thought content: is positive for depressed/anxious thoughts, positive for fleeting passive suicidal ideation without a plan or intent.; the last time she had suicidal thoughts today was around 10:30 a.m. thought content is negative for homicidal ideation, negative for paranoid thoughts or other thought delusions . Abstract reasoning, and computation: fair. Description of associations: not loose. Description of abnormal or psychotic thoughts: denies thought delusions, denies active suicidal thoughts, reports passive, fleeting suicidal thoughts. Denies homicidal ideation, denies bizarre/grandiose delusions Judgment: improving Insight: fair Orientation: x 3 Recent and remote memory: fair. Attention span and concentration: good. Language: adequate. Fund of knowledge: average. Mood: very anxious at this time Affect: congruent with mood DIAGNOSES: F32.2 Major depressive disorder, single episode, severe without psychotic features F60.3 Borderline personality disorder ASSESSMENT: Patient reports feeling very anxious, she says her anxiety has increased since she starting the cross taper between Clozaril and Rexulti. she says Serx doesn't work but she has accepted Klonopin becaue I have explained that it has a longer half life compared to other benzodiazepines. MANAGEMENT PLAN: Will start Klonopin 1 mg PO TID PRN for anxiety TIME SPENT: 15 minutes. Vital Signs Vital Signs Date Time Temp Pulse Resp B/P (MAP) Pulse Ox O2 Delivery O2 Flow Rate FiO2 02/08/20 06:31 98.2 70 17 142/89 (106) 02/07/20 06:10 Room Air 02/05/20 06:14 96 Current Medications Current Medications Medications (Trade) Dose Ordered Sig/Ben Route PRN Reason Start Time Stop Time Status Last Admin Dose Admin Acetaminophen (Tylenol Tab) 650 mg Q6HP PRN PO HEADACHE or DISCOMFORT 01/10/20 20:30 02/08/20 08:41 Acetazolamide (Diamox Sequels) 500 mg BID PO 01/10/20 21:00 02/08/20 08:36 Acetazolamide (Diamox) 500 mg BID PO 01/10/20 09:00 01/10/20 22:33 DC 01/10/20 08:29 Acyclovir (Zovirax) 400 mg BID PO 01/10/20 09:00 01/10/20 22:33 DC 01/10/20 08:22 Acyclovir (Zovirax) 400 mg BID PO 01/10/20 21:00 02/08/20 08:36 Al Hydrox/Mg Hydrox/Simethicone (Mylanta) 30 ml Q4HP PRN PO HEARTBURN/INDIGESTION 01/10/20 20:30 02/03/20 17:46 Albuterol Sulfate (Proventil, Ventolin Hfa) 2 puff Q2HP PRN INH SHORTNESS OF BREATH 01/11/20 12:15 01/20/20 08:22 Bacitracin (Bacitracin Oint) apply to left arm lacerations TID TOP 01/11/20 21:00 02/07/20 08:45 Baclofen (Lioresal) 10 mg TID PO 01/16/20 16:00 02/08/20 15:37 Baclofen (Lioresal) 10 mg TIDP PRN PO MUSCLE SPASMS 01/10/20 22:45 01/16/20 11:38 DC 01/16/20 08:51 Brexpiprazole (Rexulti) 0.5 mg DAILY PO 02/01/20 09:00 02/06/20 12:33 DC 02/06/20 09:52 Brexpiprazole (Rexulti) 1 mg DAILY PO 02/07/20 09:00 02/08/20 08:35 Clozapine (Clozaril) 100 mg QHS PO 01/10/20 21:00 01/20/20 17:14 DC 01/19/20 20:53 Clozapine (Clozaril) 125 mg QHS PO 01/20/20 21:00 01/25/20 11:52 DC 01/24/20 20:33 Clozapine (Clozaril) 150 mg QHS PO 01/20/20 21:00 01/20/20 17:16 DC Clozapine (Clozaril) 150 mg QHS PO 01/25/20 21:00 01/31/20 13:28 DC 01/30/20 20:47 Docusate Sodium (Colace) 100 mg DAILY PO 01/11/20 09:00 02/06/20 09:52 Fish Oil ([place]-3 (1000mg)) 1 cap DAILY PO 01/10/20 09:00 01/10/20 22:33 DC 01/10/20 08:29 Fish Oil ([place]-3 (1000mg)) 1 cap DAILY PO 01/11/20 09:00 02/08/20 08:34 Fluoxetine HCl (PROzac) 20 mg DAILY PO 01/10/20 09:00 01/10/20 22:33 DC 01/10/20 08:22 Fluoxetine HCl (PROzac) 20 mg DAILY PO 01/11/20 09:00 01/12/20 12:40 DC 01/12/20 08:33 Fluoxetine HCl (PROzac) 30 mg DAILY PO 01/13/20 09:00 01/16/20 11:35 DC 01/16/20 08:50 Fluoxetine HCl (PROzac) 40 mg DAILY PO 01/17/20 09:00 02/08/20 08:28 Folic Acid (Folic Acid) 1 mg DAILY PO 01/10/20 09:00 01/10/20 20:27 DC 01/10/20 08:23 Folic Acid (Folic Acid) 1 mg DAILY PO 01/11/20 09:00 02/08/20 08:28 Folic Acid (Folic Acid) 1 mg DAILY PO 01/11/20 09:00 Cancel Heparin Sodium (Heparin (Flush)) 500 units Q30D@09 IV 02/01/20 09:00 02/01/20 15:33 Home Med (Med Rec Complete!) ASDIRECTED XX 01/10/20 21:45 01/10/20 21:35 DC Hydroxyzine HCl (Atarax) 50 mg Q6HP PRN PO anxiety 01/19/20 17:00 01/24/20 14:12 DC 01/24/20 12:58 Hydroxyzine HCl (Atarax) 50 mg QID PO 01/10/20 13:00 01/10/20 22:33 DC 01/10/20 17:03 Hydroxyzine HCl (Atarax) 50 mg QID PO 01/11/20 13:00 01/19/20 16:52 DC 01/19/20 15:53 Hydroxyzine HCl (Atarax) 50 mg QIDP PRN PO ANXIETY 01/10/20 22:45 01/11/20 12:19 DC 01/11/20 08:37 Hydroxyzine HCl (Atarax) 100 mg BID PO 01/19/20 21:00 01/20/20 11:16 DC 01/20/20 08:25 Hydroxyzine HCl (Atarax) 100 mg BID@0900,1500 PO 01/20/20 15:00 01/31/20 13:28 DC 01/31/20 08:10 Ibuprofen (Advil) 400 mg Q6HP PRN PO PAIN 02/05/20 15:00 02/07/20 18:04 Loperamide HCl (Imodium) 2 mg ASDIRECTED PRN PO DIARRHEA 02/03/20 19:30 02/04/20 11:05 Lorazepam (Ativan) 2 mg ASDIRECTED PRN PO SEE PROTOCOL 01/10/20 20:30 01/11/20 16:44 DC Magnesium Hydroxide (Milk Of Magnesia) 30 ml DAILYPRN PRN PO CONSTIPATION 01/10/20 20:30 Meloxicam (Mobic) 15 mg DAILY PO 01/11/20 09:00 02/08/20 08:28 Mirtazapine (Remeron) 30 mg QHS PO 01/10/20 21:00 01/31/20 13:28 DC 01/30/20 20:48 Miscellaneous (Unresolved Clarification Entry) SEE LABEL COMMENTS DAILY XX 01/15/20 09:00 01/15/20 11:17 DC Multivitamins (Theragram-M) 1 tab DAILY PO 01/11/20 09:00 02/08/20 08:28 Mycophenolate Mofetil (Cellcept) 500 mg TID PO 01/10/20 09:00 01/10/20 22:33 DC 01/10/20 17:04 Mycophenolate Mofetil (Cellcept) 1,000 mg TID PO 01/10/20 21:00 02/08/20 15:37 Naltrexone HCl (Revia) 50 mg BID PO 01/10/20 09:00 01/10/20 22:33 DC 01/10/20 08:28 Naltrexone HCl (Revia) 50 mg BID PO 01/10/20 21:00 02/08/20 08:35 Olanzapine (ZyPREXA ZYDIS) 5 mg Q4HP PRN PO ANXIETY/AGITATION 01/11/20 16:45 01/19/20 16:55 DC 01/19/20 15:56 Omeprazole (PriLOSEC) 20 mg DAILY PO 01/10/20 09:00 01/10/20 22:33 DC 01/10/20 08:21 Omeprazole (PriLOSEC) 20 mg DAILY PO 01/11/20 09:00 02/08/20 08:28 Oxazepam (Serax) 10 mg BIDP PRN PO ANXIETY 02/03/20 12:00 02/08/20 08:40 Oxazepam (Serax) 10 mg DAILYPRN PRN PO ANXIETY 01/31/20 13:30 02/03/20 11:55 DC 02/03/20 06:44 Potassium Chloride (Micro-K Extencaps) 20 meq DAILY PO 01/10/20 09:00 01/10/20 22:33 DC 01/10/20 08:22 Potassium Chloride (Micro-K Extencaps) 20 meq DAILY PO 01/11/20 09:00 02/08/20 08:34 Pyridostigmine [place] (Mestinon) 90 mg QID PO 01/10/20 09:00 01/10/20 22:33 DC 01/10/20 17:02 Pyridostigmine [place] (Mestinon) 90 mg QID PO 01/10/20 21:00 02/08/20 15:37 Ramelteon (Rozerem) 8 mg QHS PRN PO INSOMNIA 01/31/20 13:30 02/07/20 21:17 Senna (Senokot) 2 tab QHSP PRN PO CONSTIPATION 01/10/20 22:45 Sodium Chloride (Saline Lock Flush) 10 ml Q30D IV 02/01/20 09:00 02/01/20 15:33 Tamoxifen Citrate (Nolvadex) 20 mg DAILY PO 01/10/20 09:00 01/10/20 22:33 DC 01/10/20 08:31 Tamoxifen Citrate (Nolvadex) 20 mg DAILY PO 01/11/20 09:00 01/26/20 16:25 DC 01/26/20 08:08 Thiamine HCl (Thiamine HCl) 100 mg BID PO 01/10/20 21:00 01/13/20 20:59 DC 01/13/20 08:03 Torsemide (Demadex) 20 mg DAILY PO 01/10/20 09:00 01/10/20 22:33 DC 01/10/20 08:22 Torsemide (Demadex) 20 mg DAILY PO 01/11/20 09:00 01/19/20 16:37 DC 01/19/20 08:05 Torsemide (Demadex) 40 mg DAILY PO 01/20/20 09:00 02/08/20 08:31 Trazodone HCl (Desyrel) 50 mg QHSP PRN PO INSOMNIA 01/10/20 20:30 01/31/20 13:29 DC 01/30/20 20:47 Venlafaxine HCl (Effexor Xr) 225 mg DAILY PO 01/11/20 09:00 02/08/20 08:34 Venlafaxine HCl (Effexor) 225 mg DAILY PO 01/10/20 09:00 01/10/20 22:33 DC 01/10/20 08:28 Vitamin D (Vitamin D) 5,000 units DAILY PO 01/10/20 09:00 01/10/20 22:33 DC 01/10/20 08:20 Allergies Coded Allergies: amitriptyline (Verified Allergy, Severe, SWELLING, 11/29/19) Grass (Verified Allergy, Mild, ITCHY EYES,NOSE, 11/29/19) TAPE (Verified Allergy, Mild, RASH/BLISTER, 11/29/19) TREES (Verified Allergy, Mild, ITCHY EYES,NOSE, 11/29/19) adhesive (Verified Allergy, Unknown, 11/29/19) divalproex sodium (Verified Allergy, Unknown, 11/29/19) minocycline (Verified Allergy, Unknown, 11/29/19) mold (Verified Allergy, Unknown, 11/29/19) tetracycline (Verified Allergy, Unknown, 11/29/19) bupropion (Verified Adverse Reaction, Intermediate, ESOPHAGEAL SPASMS, 11/29/19) banana (Verified Adverse Reaction, Mild, VOMITING, 11/29/19) benztropine (Verified Adverse Reaction, Mild, BLURRED VISION, 11/29/19) clindamycin (Verified Adverse Reaction, Mild, HEART BURN, 11/29/19) gabapentin (Verified Adverse Reaction, Mild, extreme weakness, 11/29/19) metaxalone (Verified Adverse Reaction, Mild, itching, 11/29/19) pregabalin (Verified Adverse Reaction, Mild, EDEMA, 11/29/19) sulfamethoxazole (Verified Adverse Reaction, Mild, DIARRHEA, 11/29/19) tizanidine (Verified Adverse Reaction, Mild, ITCHING, 11/29/19) trazodone (Verified Adverse Reaction, Mild, EDEMA, 11/29/19) trimethoprim (Verified Adverse Reaction, Mild, DIARRHEA, 11/29/19) vilazodone (Verified Adverse Reaction, Mild, MOOD CHANGES, 11/29/19) cyclobenzaprine (Verified Adverse Reaction, Unknown, IRRITABILITY, 11/29/19) valproic acid (Unverified Adverse Reaction, Unknown, DOES NOT METABOLIZE, 11/29/19) MARK ANTHONY HDZ MD Feb 08, 2020 16:25
[2020-02-08] MEDS: clonazePAM 1 MG TAB PO PRN (17:02)
[2020-02-08 18:00] VITALS: BP 127/78
[2020-02-08] MEDS: RAMELTEON 8 MG TAB (ROZEREM) PO PRN (20:46)
[2020-02-09 06:34] VITALS: BP 148/84
[2020-02-09] MEDS: BACITRACIN OINTMENT 30GM TUBE TOP SCH ×3 (09:00→21:00)
[2020-02-09] MEDS: VENLAFAXINE **XR** 75MG CAPSULE PO SCH (09:00)
[2020-02-09] MEDS: clonazePAM 1 MG TAB PO PRN (09:27)
[2020-02-09] MEDS: MYCOPHENOLATE MOFETIL 250 MG CAP (J7517) PO SCH ×3 (09:34→16:42)
[2020-02-09] MEDS: TORSEMIDE 20 MG TAB PO SCH (09:36)
[2020-02-09] MEDS: acetaZOLAMIDE 500 MG ER CAP PO SCH ×2 (09:38→21:18)
[2020-02-09] MEDS: PYRIDOSTIGMINE 60 MG TAB PO SCH ×4 (09:41→21:17)
[2020-02-09] MEDS: FOLIC ACID 1 MG TAB PO SCH (09:49)
[2020-02-09] MEDS: FLUoxetine 20 MG CAP PO SCH (09:49)
[2020-02-09] MEDS: DOCUSATE SODIUM 100MG CAPSULE PO SCH (09:49)
[2020-02-09] MEDS: BACLOFEN 10 MG TAB PO SCH ×3 (09:50→21:17)
[2020-02-09] MEDS: MELOXICAM (MOBIC) 7.5 MG TAB PO SCH (09:50)
[2020-02-09] MEDS: ACYCLOVIR 200 MG CAPSULE PO SCH ×2 (09:53→21:18)
[2020-02-09] MEDS: OMEGA-3 1000MG CAPSULE PO SCH (09:55)
[2020-02-09] MEDS: NALTREXONE 50 MG TAB PO SCH ×2 (10:04→21:17)
[2020-02-09] MEDS: POTASSIUM CHLORIDE 10 MEQ SR TABLET PO SCH (10:06)
[2020-02-09] MEDS: MULTIVITAMINS/MINERALS THERAP 1 TAB PO SCH (10:06)
[2020-02-09] MEDS: OMEPRAZOLE 20 MG CAP PO SCH (10:06)
[2020-02-09] MEDS: BREXPIPRAZOLE 0.5MG TABLET (REXULTI) PO SCH (10:09)
--- NOTE | 2020-02-09 10:31 | MHIPNPDOC ---
[facility] Progress Note Progress Note DATE OF SERVICE: 02/09/20 Subjective HPI: Mitra presents today for her psych issues. The patient's met with today. She reports that she's not feeling very good and that the she feels the brexpiprazole hasn't been helpful for her. She noticeably had an episode where she had cut herself and was placed back on a one-to-one, briefly then was taking off . She appears to have digressed. MEDICATIONS: She was placed on Klonopin 1 mg TID PRN, but appears much more depressed. Objective Speech: Normal volume. Spontaneous and Fluid. Normal rate. Associations intact. Thought Form: Linear, logical but dismissive. Depressed and constricted. Thought Content: Reports suicidal thoughts and self-mutilating thoughts. Judgement: Poor. Insight: Poor. Assessment F33.2 Major depressive disorder, recurrent severe without psychotic features F60.3 Borderline personality disorder Plan Patient will be transitioned back onto clozapine, and she does not want to take the Brexpiprazole. Discontinued the clonazepam as this could be causing her to feel more depressed and unhinging her borderline personality disorder traits. We'll attempt to reinstate behavioral controls as this is critical to helping he r do better as she appeared to be making some progress. Vital Signs Vital Signs Date Time Temp Pulse Resp B/P (MAP) Pulse Ox O2 Delivery O2 Flow Rate FiO2 02/09/20 06:34 98.8 66 18 148/84 (105) Room Air 02/05/20 06:14 96 Current Medications Current Medications Medications (Trade) Dose Ordered Sig/Ben Route PRN Reason Start Time Stop Time Status Last Admin Dose Admin Acetaminophen (Tylenol Tab) 650 mg Q6HP PRN PO HEADACHE or DISCOMFORT 01/10/20 20:30 02/08/20 08:41 Acetazolamide (Diamox Sequels) 500 mg BID PO 01/10/20 21:00 02/09/20 09:38 Acetazolamide (Diamox) 500 mg BID PO 01/10/20 09:00 01/10/20 22:33 DC 01/10/20 08:29 Acyclovir (Zovirax) 400 mg BID PO 01/10/20 09:00 01/10/20 22:33 DC 01/10/20 08:22 Acyclovir (Zovirax) 400 mg BID PO 01/10/20 21:00 02/09/20 09:53 Al Hydrox/Mg Hydrox/Simethicone (Mylanta) 30 ml Q4HP PRN PO HEARTBURN/INDIGESTION 01/10/20 20:30 02/03/20 17:46 Albuterol Sulfate (Proventil, Ventolin Hfa) 2 puff Q2HP PRN INH SHORTNESS OF BREATH 01/11/20 12:15 01/20/20 08:22 Bacitracin (Bacitracin Oint) apply to left arm lacerations TID TOP 01/11/20 21:00 02/07/20 08:45 Baclofen (Lioresal) 10 mg TID PO 01/16/20 16:00 02/09/20 09:50 Baclofen (Lioresal) 10 mg TIDP PRN PO MUSCLE SPASMS 01/10/20 22:45 01/16/20 11:38 DC 01/16/20 08:51 Brexpiprazole (Rexulti) 0.5 mg DAILY PO 02/01/20 09:00 02/06/20 12:33 DC 02/06/20 09:52 Brexpiprazole (Rexulti) 1 mg DAILY PO 02/07/20 09:00 02/09/20 10:09 Clonazepam (KlonoPIN) 1 mg TID PRN PO ANXIETY/AGITATION 02/08/20 16:30 02/09/20 09:27 Clozapine (Clozaril) 100 mg QHS PO 01/10/20 21:00 01/20/20 17:14 DC 01/19/20 20:53 Clozapine (Clozaril) 125 mg QHS PO 01/20/20 21:00 01/25/20 11:52 DC 01/24/20 20:33 Clozapine (Clozaril) 150 mg QHS PO 01/20/20 21:00 01/20/20 17:16 DC Clozapine (Clozaril) 150 mg QHS PO 01/25/20 21:00 01/31/20 13:28 DC 01/30/20 20:47 Docusate Sodium (Colace) 100 mg DAILY PO 01/11/20 09:00 02/09/20 09:49 Fish Oil ([place]-3 (1000mg)) 1 cap DAILY PO 01/10/20 09:00 01/10/20 22:33 DC 01/10/20 08:29 Fish Oil ([place]-3 (1000mg)) 1 cap DAILY PO 01/11/20 09:00 02/09/20 09:55 Fluoxetine HCl (PROzac) 20 mg DAILY PO 01/10/20 09:00 01/10/20 22:33 DC 01/10/20 08:22 Fluoxetine HCl (PROzac) 20 mg DAILY PO 01/11/20 09:00 01/12/20 12:40 DC 01/12/20 08:33 Fluoxetine HCl (PROzac) 30 mg DAILY PO 01/13/20 09:00 01/16/20 11:35 DC 01/16/20 08:50 Fluoxetine HCl (PROzac) 40 mg DAILY PO 01/17/20 09:00 02/09/20 09:49 Folic Acid (Folic Acid) 1 mg DAILY PO 01/10/20 09:00 01/10/20 20:27 DC 01/10/20 08:23 Folic Acid (Folic Acid) 1 mg DAILY PO 01/11/20 09:00 02/09/20 09:49 Folic Acid (Folic Acid) 1 mg DAILY PO 01/11/20 09:00 Cancel Heparin Sodium (Heparin (Flush)) 500 units Q30D@09 IV 02/01/20 09:00 02/01/20 15:33 Home Med (Med Rec Complete!) ASDIRECTED XX 01/10/20 21:45 01/10/20 21:35 DC Hydroxyzine HCl (Atarax) 50 mg Q6HP PRN PO anxiety 01/19/20 17:00 01/24/20 14:12 DC 01/24/20 12:58 Hydroxyzine HCl (Atarax) 50 mg QID PO 01/10/20 13:00 01/10/20 22:33 DC 01/10/20 17:03 Hydroxyzine HCl (Atarax) 50 mg QID PO 01/11/20 13:00 01/19/20 16:52 DC 01/19/20 15:53 Hydroxyzine HCl (Atarax) 50 mg QIDP PRN PO ANXIETY 01/10/20 22:45 01/11/20 12:19 DC 01/11/20 08:37 Hydroxyzine HCl (Atarax) 100 mg BID PO 01/19/20 21:00 01/20/20 11:16 DC 01/20/20 08:25 Hydroxyzine HCl (Atarax) 100 mg BID@0900,1500 PO 01/20/20 15:00 01/31/20 13:28 DC 01/31/20 08:10 Ibuprofen (Advil) 400 mg Q6HP PRN PO PAIN 02/05/20 15:00 02/07/20 18:04 Loperamide HCl (Imodium) 2 mg ASDIRECTED PRN PO DIARRHEA 02/03/20 19:30 02/04/20 11:05 Lorazepam (Ativan) 2 mg ASDIRECTED PRN PO SEE PROTOCOL 01/10/20 20:30 01/11/20 16:44 DC Magnesium Hydroxide (Milk Of Magnesia) 30 ml DAILYPRN PRN PO CONSTIPATION 01/10/20 20:30 Meloxicam (Mobic) 15 mg DAILY PO 01/11/20 09:00 02/09/20 09:50 Mirtazapine (Remeron) 30 mg QHS PO 01/10/20 21:00 01/31/20 13:28 DC 01/30/20 20:48 Miscellaneous (Unresolved Clarification Entry) SEE LABEL COMMENTS DAILY XX 01/15/20 09:00 01/15/20 11:17 DC Multivitamins (Theragram-M) 1 tab DAILY PO 01/11/20 09:00 02/09/20 10:06 Mycophenolate Mofetil (Cellcept) 500 mg TID PO 01/10/20 09:00 01/10/20 22:33 DC 01/10/20 17:04 Mycophenolate Mofetil (Cellcept) 1,000 mg TID PO 01/10/20 21:00 02/09/20 10:10 Naltrexone HCl (Revia) 50 mg BID PO 01/10/20 09:00 01/10/20 22:33 DC 01/10/20 08:28 Naltrexone HCl (Revia) 50 mg BID PO 01/10/20 21:00 02/09/20 10:04 Olanzapine (ZyPREXA ZYDIS) 5 mg Q4HP PRN PO ANXIETY/AGITATION 01/11/20 16:45 01/19/20 16:55 DC 01/19/20 15:56 Omeprazole (PriLOSEC) 20 mg DAILY PO 01/10/20 09:00 01/10/20 22:33 DC 01/10/20 08:21 Omeprazole (PriLOSEC) 20 mg DAILY PO 01/11/20 09:00 02/09/20 10:06 Oxazepam (Serax) 10 mg BIDP PRN PO ANXIETY 02/03/20 12:00 02/08/20 08:40 Oxazepam (Serax) 10 mg DAILYPRN PRN PO ANXIETY 01/31/20 13:30 02/03/20 11:55 DC 02/03/20 06:44 Potassium Chloride (Micro-K Extencaps) 20 meq DAILY PO 01/10/20 09:00 01/10/20 22:33 DC 01/10/20 08:22 Potassium Chloride (Micro-K Extencaps) 20 meq DAILY PO 01/11/20 09:00 02/09/20 10:06 Pyridostigmine [place] (Mestinon) 90 mg QID PO 01/10/20 09:00 01/10/20 22:33 DC 01/10/20 17:02 Pyridostigmine [place] (Mestinon) 90 mg QID PO 01/10/20 21:00 02/09/20 09:41 Ramelteon (Rozerem) 8 mg QHS PRN PO INSOMNIA 01/31/20 13:30 02/08/20 20:46 Senna (Senokot) 2 tab QHSP PRN PO CONSTIPATION 01/10/20 22:45 Sodium Chloride (Saline Lock Flush) 10 ml Q30D IV 02/01/20 09:00 02/01/20 15:33 Tamoxifen Citrate (Nolvadex) 20 mg DAILY PO 01/10/20 09:00 01/10/20 22:33 DC 01/10/20 08:31 Tamoxifen Citrate (Nolvadex) 20 mg DAILY PO 01/11/20 09:00 01/26/20 16:25 DC 01/26/20 08:08 Thiamine HCl (Thiamine HCl) 100 mg BID PO 01/10/20 21:00 01/13/20 20:59 DC 01/13/20 08:03 Torsemide (Demadex) 20 mg DAILY PO 01/10/20 09:00 01/10/20 22:33 DC 01/10/20 08:22 Torsemide (Demadex) 20 mg DAILY PO 01/11/20 09:00 01/19/20 16:37 DC 01/19/20 08:05 Torsemide (Demadex) 40 mg DAILY PO 01/20/20 09:00 02/09/20 09:36 Trazodone HCl (Desyrel) 50 mg QHSP PRN PO INSOMNIA 01/10/20 20:30 01/31/20 13:29 DC 01/30/20 20:47 Venlafaxine HCl (Effexor Xr) 225 mg DAILY PO 01/11/20 09:00 02/08/20 08:34 Venlafaxine HCl (Effexor) 225 mg DAILY PO 01/10/20 09:00 01/10/20 22:33 DC 01/10/20 08:28 Vitamin D (Vitamin D) 5,000 units DAILY PO 01/10/20 09:00 01/10/20 22:33 DC 01/10/20 08:20 Allergies Coded Allergies: amitriptyline (Verified Allergy, Severe, SWELLING, 11/29/19) Grass (Verified Allergy, Mild, ITCHY EYES,NOSE, 11/29/19) TAPE (Verified Allergy, Mild, RASH/BLISTER, 11/29/19) TREES (Verified Allergy, Mild, ITCHY EYES,NOSE, 11/29/19) adhesive (Verified Allergy, Unknown, 11/29/19) divalproex sodium (Verified Allergy, Unknown, 11/29/19) minocycline (Verified Allergy, Unknown, 11/29/19) mold (Verified Allergy, Unknown, 11/29/19) tetracycline (Verified Allergy, Unknown, 11/29/19) bupropion (Verified Adverse Reaction, Intermediate, ESOPHAGEAL SPASMS, 11/29/19) banana (Verified Adverse Reaction, Mild, VOMITING, 11/29/19) benztropine (Verified Adverse Reaction, Mild, BLURRED VISION, 11/29/19) clindamycin (Verified Adverse Reaction, Mild, HEART BURN, 11/29/19) gabapentin (Verified Adverse Reaction, Mild, extreme weakness, 11/29/19) metaxalone (Verified Adverse Reaction, Mild, itching, 11/29/19) pregabalin (Verified Adverse Reaction, Mild, EDEMA, 11/29/19) sulfamethoxazole (Verified Adverse Reaction, Mild, DIARRHEA, 11/29/19) tizanidine (Verified Adverse Reaction, Mild, ITCHING, 11/29/19) trazodone (Verified Adverse Reaction, Mild, EDEMA, 11/29/19) trimethoprim (Verified Adverse Reaction, Mild, DIARRHEA, 11/29/19) vilazodone (Verified Adverse Reaction, Mild, MOOD CHANGES, 11/29/19) cyclobenzaprine (Verified Adverse Reaction, Unknown, IRRITABILITY, 11/29/19) valproic acid (Unverified Adverse Reaction, Unknown, DOES NOT METABOLIZE, 11/29/19) MANJULA ALBRIGHT DO Feb 09, 2020 10:31
[2020-02-09 16:32] VITALS: BP 136/98
[2020-02-09 16:41] LABS: BASO # 0.1 10^3/uL (0.0-0.2); BASO % 0.8 % (0.0-1.0); EOS # 0.2 10^3/uL (0.0-0.5); EOS % 2.5 % (0.0-3.0); HEMOGLOBIN 12.4 g/dl (12.0-15.5); LYMPH % 16.7 % (24.0-44.0); MEAN CORPUSCULAR HEMOGLOBIN 27.6 pg (27.0-33.0); MEAN CORPUSCULAR HGB CONC 31.8 g/dl (32.0-36.5); MEAN CORPUSCULAR VOLUME 86.9 fl (80.0-96.0); MONO # 0.6 10^3/uL (0.0-0.8); MONO % 9.6 % (0.0-5.0); NEUTROPHILS # 4.2 10^3/uL (1.5-8.5); NEUTROPHILS % 69.9 % (36.0-66.0); PLATELET COUNT, AUTOMATED 257 10^3/uL (150-450); RED BLOOD COUNT 4.49 10^6/uL (4.00-5.40); WHITE BLOOD COUNT 5.9 10^3/uL (4.0-10.0)
[2020-02-09] MEDS: cloZAPine 25 MG TAB (S0136) PO SCH (21:17)
[2020-02-09] MEDS: RAMELTEON 8 MG TAB (ROZEREM) PO PRN (21:18)
[2020-02-10 06:36] VITALS: BP 146/74
[2020-02-10] MEDS: PILL CUTTER 1 EACH XX PRN ×3 (08:25→16:37)
[2020-02-10] MEDS: acetaZOLAMIDE 500 MG ER CAP PO SCH ×2 (08:30→21:09)
[2020-02-10] MEDS: ACYCLOVIR 200 MG CAPSULE PO SCH ×2 (08:30→21:09)
[2020-02-10] MEDS: OMEGA-3 1000MG CAPSULE PO SCH (08:31)
[2020-02-10] MEDS: MYCOPHENOLATE MOFETIL 250 MG CAP (J7517) PO SCH ×3 (08:31→21:09)
[2020-02-10] MEDS: PYRIDOSTIGMINE 60 MG TAB PO SCH ×4 (08:31→21:08)
[2020-02-10] MEDS: cloZAPine 25 MG TAB (S0136) PO SCH (08:33)
[2020-02-10] MEDS: TORSEMIDE 20 MG TAB PO SCH (08:33)
[2020-02-10] MEDS: MELOXICAM (MOBIC) 7.5 MG TAB PO SCH (08:33)
[2020-02-10] MEDS: POTASSIUM CHLORIDE 10 MEQ SR TABLET PO SCH (08:34)
[2020-02-10] MEDS: BACLOFEN 10 MG TAB PO SCH ×3 (08:34→21:08)
[2020-02-10] MEDS: NALTREXONE 50 MG TAB PO SCH ×2 (08:34→21:08)
[2020-02-10] MEDS: FLUoxetine 20 MG CAP PO SCH (08:34)
[2020-02-10] MEDS: FOLIC ACID 1 MG TAB PO SCH (08:35)
[2020-02-10] MEDS: MULTIVITAMINS/MINERALS THERAP 1 TAB PO SCH (08:35)
[2020-02-10] MEDS: OMEPRAZOLE 20 MG CAP PO SCH (08:35)
[2020-02-10] MEDS: VENLAFAXINE **XR** 75MG CAPSULE PO SCH (08:36)
[2020-02-10] MEDS: BACITRACIN OINTMENT 30GM TUBE TOP SCH ×3 (08:40→21:00)
[2020-02-10] MEDS: DOCUSATE SODIUM 100MG CAPSULE PO SCH (08:40)
--- NOTE | 2020-02-10 09:49 | MHIPNPDOC ---
[facility] Progress Note Progress Note DATE OF SERVICE: 02/10/20 Subjective Copy HPI: Patient was met with today and reports she has depression. She has been sleepy d uring the day today and otherwise reports no major change in her mood. She denies constipation or other problems. She has not been interacting very much today and has not engaged in many groups. She reports no changes in her suicidal thoughts or self-mutilating thoughts. MEDICATIONS: She was placed on Klonopin 12.5 mg BID. Objective Copy Behavior: poor eye contact. Affect: dysthemic. constricted. Cognition: Alert, Attentive, and Oriented to person, place, time. Thought Content: unchanged, suicidal thoughts from previous. significant hopelessness. Judgement: Poor. Insight: Poor. Assessment Copy F32.2 Major depressive disorder, single episode, severe without psychotic feat ures F60.3 Borderline personality disorder Plan The Klonopin could be causing her to feel worse as is sometimes seen in borderline organized individuals. Maybe possible to help with behavioral int erventions to encourage her to use coping skills. Long-term care will likely need to be pursued if this fails. Continue Clozapine 25 mg nightly to reduce daytime sedation. Continue bowel prophylaxis.. Vital Signs Vital Signs Date Time Temp Pulse Resp B/P (MAP) Pulse Ox O2 Delivery O2 Flow Rate FiO2 02/10/20 06:36 97.3 67 18 146/74 (98) Room Air 02/05/20 06:14 96 Laboratory Data 24H Labs Laboratory Tests 2 02/09/20 16:20: Immature Granulocyte % (Auto) 0.5, Neutrophils (%) (Auto) 69.9H, Lymphocytes (%) (Auto) 16.7L, Monocytes (%) (Auto) 9.6H, Eosinophils (%) (Auto) 2.5, Basophils (%) (Auto) 0.8, Neutrophils # (Auto) 4.2, Lymphocytes # (Auto) 1.0L, Monocytes # (Auto) 0.6, Eosinophils # (Auto) 0.2, Basophils # (Auto) 0.1, Nucleated Red Blood Cells % (auto) 0.0 CBC/BMP Laboratory Tests 02/09/20 16:20 Current Medications Current Medications Medications (Trade) Dose Ordered Sig/Ben Route PRN Reason Start Time Stop Time Status Last Admin Dose Admin Acetaminophen (Tylenol Tab) 650 mg Q6HP PRN PO HEADACHE or DISCOMFORT 01/10/20 20:30 02/08/20 08:41 Acetazolamide (Diamox Sequels) 500 mg BID PO 01/10/20 21:00 02/10/20 08:30 Acetazolamide (Diamox) 500 mg BID PO 01/10/20 09:00 01/10/20 22:33 DC 01/10/20 08:29 Acyclovir (Zovirax) 400 mg BID PO 01/10/20 09:00 01/10/20 22:33 DC 01/10/20 08:22 Acyclovir (Zovirax) 400 mg BID PO 01/10/20 21:00 02/10/20 08:30 Al Hydrox/Mg Hydrox/Simethicone (Mylanta) 30 ml Q4HP PRN PO HEARTBURN/INDIGESTION 01/10/20 20:30 02/03/20 17:46 Albuterol Sulfate (Proventil, Ventolin Hfa) 2 puff Q2HP PRN INH SHORTNESS OF BREATH 01/11/20 12:15 01/20/20 08:22 Bacitracin (Bacitracin Oint) apply to left arm lacerations TID TOP 01/11/20 21:00 02/09/20 16:41 Baclofen (Lioresal) 10 mg TID PO 01/16/20 16:00 02/10/20 08:34 Baclofen (Lioresal) 10 mg TIDP PRN PO MUSCLE SPASMS 01/10/20 22:45 01/16/20 11:38 DC 01/16/20 08:51 Brexpiprazole (Rexulti) 0.5 mg DAILY PO 02/01/20 09:00 02/06/20 12:33 DC 02/06/20 09:52 Brexpiprazole (Rexulti) 1 mg DAILY PO 02/07/20 09:00 02/09/20 15:59 DC 02/09/20 10:09 Clonazepam (KlonoPIN) 1 mg TID PRN PO ANXIETY/AGITATION 02/08/20 16:30 02/09/20 15:59 DC 02/09/20 09:27 Clozapine (Clozaril) 12.5 mg BID PO 02/09/20 21:00 02/10/20 08:33 Clozapine (Clozaril) 100 mg QHS PO 01/10/20 21:00 01/20/20 17:14 DC 01/19/20 20:53 Clozapine (Clozaril) 125 mg QHS PO 01/20/20 21:00 01/25/20 11:52 DC 01/24/20 20:33 Clozapine (Clozaril) 150 mg QHS PO 01/20/20 21:00 01/20/20 17:16 DC Clozapine (Clozaril) 150 mg QHS PO 01/25/20 21:00 01/31/20 13:28 DC 01/30/20 20:47 Docusate Sodium (Colace) 100 mg DAILY PO 01/11/20 09:00 02/09/20 09:49 Fish Oil ([place]-3 (1000mg)) 1 cap DAILY PO 01/10/20 09:00 01/10/20 22:33 DC 01/10/20 08:29 Fish Oil ([place]-3 (1000mg)) 1 cap DAILY PO 01/11/20 09:00 02/10/20 08:31 Fluoxetine HCl (PROzac) 20 mg DAILY PO 01/10/20 09:00 01/10/20 22:33 DC 01/10/20 08:22 Fluoxetine HCl (PROzac) 20 mg DAILY PO 01/11/20 09:00 01/12/20 12:40 DC 01/12/20 08:33 Fluoxetine HCl (PROzac) 30 mg DAILY PO 01/13/20 09:00 01/16/20 11:35 DC 01/16/20 08:50 Fluoxetine HCl (PROzac) 40 mg DAILY PO 01/17/20 09:00 02/10/20 08:34 Folic Acid (Folic Acid) 1 mg DAILY PO 01/10/20 09:00 01/10/20 20:27 DC 01/10/20 08:23 Folic Acid (Folic Acid) 1 mg DAILY PO 01/11/20 09:00 02/10/20 08:35 Folic Acid (Folic Acid) 1 mg DAILY PO 01/11/20 09:00 Cancel Heparin Sodium (Heparin (Flush)) 500 units Q30D@09 IV 02/01/20 09:00 02/01/20 15:33 Home Med (Med Rec Complete!) ASDIRECTED XX 01/10/20 21:45 01/10/20 21:35 DC Hydroxyzine HCl (Atarax) 50 mg Q6HP PRN PO anxiety 01/19/20 17:00 01/24/20 14:12 DC 01/24/20 12:58 Hydroxyzine HCl (Atarax) 50 mg QID PO 01/10/20 13:00 01/10/20 22:33 DC 01/10/20 17:03 Hydroxyzine HCl (Atarax) 50 mg QID PO 01/11/20 13:00 01/19/20 16:52 DC 01/19/20 15:53 Hydroxyzine HCl (Atarax) 50 mg QIDP PRN PO ANXIETY 01/10/20 22:45 01/11/20 12:19 DC 01/11/20 08:37 Hydroxyzine HCl (Atarax) 100 mg BID PO 01/19/20 21:00 01/20/20 11:16 DC 01/20/20 08:25 Hydroxyzine HCl (Atarax) 100 mg BID@0900,1500 PO 01/20/20 15:00 01/31/20 13:28 DC 01/31/20 08:10 Ibuprofen (Advil) 400 mg Q6HP PRN PO PAIN 02/05/20 15:00 02/07/20 18:04 Loperamide HCl (Imodium) 2 mg ASDIRECTED PRN PO DIARRHEA 02/03/20 19:30 02/04/20 11:05 Lorazepam (Ativan) 2 mg ASDIRECTED PRN PO SEE PROTOCOL 01/10/20 20:30 01/11/20 16:44 DC Magnesium Hydroxide (Milk Of Magnesia) 30 ml DAILYPRN PRN PO CONSTIPATION 01/10/20 20:30 Meloxicam (Mobic) 15 mg DAILY PO 01/11/20 09:00 02/10/20 08:33 Mirtazapine (Remeron) 30 mg QHS PO 01/10/20 21:00 01/31/20 13:28 DC 01/30/20 20:48 Miscellaneous (Unresolved Clarification Entry) SEE LABEL COMMENTS DAILY XX 01/15/20 09:00 01/15/20 11:17 DC Multivitamins (Theragram-M) 1 tab DAILY PO 01/11/20 09:00 02/10/20 08:35 Mycophenolate Mofetil (Cellcept) 500 mg TID PO 01/10/20 09:00 01/10/20 22:33 DC 01/10/20 17:04 Mycophenolate Mofetil (Cellcept) 1,000 mg TID PO 01/10/20 21:00 02/10/20 08:31 Naltrexone HCl (Revia) 50 mg BID PO 01/10/20 09:00 01/10/20 22:33 DC 01/10/20 08:28 Naltrexone HCl (Revia) 50 mg BID PO 01/10/20 21:00 02/10/20 08:34 Olanzapine (ZyPREXA ZYDIS) 5 mg Q4HP PRN PO ANXIETY/AGITATION 01/11/20 16:45 01/19/20 16:55 DC 01/19/20 15:56 Omeprazole (PriLOSEC) 20 mg DAILY PO 01/10/20 09:00 01/10/20 22:33 DC 01/10/20 08:21 Omeprazole (PriLOSEC) 20 mg DAILY PO 01/11/20 09:00 02/10/20 08:35 Oxazepam (Serax) 10 mg BIDP PRN PO ANXIETY 02/03/20 12:00 02/08/20 08:40 Oxazepam (Serax) 10 mg DAILYPRN PRN PO ANXIETY 01/31/20 13:30 02/03/20 11:55 DC 02/03/20 06:44 Potassium Chloride (Micro-K Extencaps) 20 meq DAILY PO 01/10/20 09:00 01/10/20 22:33 DC 01/10/20 08:22 Potassium Chloride (Micro-K Extencaps) 20 meq DAILY PO 01/11/20 09:00 02/10/20 08:34 Pyridostigmine [place] (Mestinon) 90 mg QID PO 01/10/20 09:00 01/10/20 22:33 DC 01/10/20 17:02 Pyridostigmine [place] (Mestinon) 90 mg QID PO 01/10/20 21:00 02/10/20 08:31 Ramelteon (Rozerem) 8 mg QHS PRN PO INSOMNIA 01/31/20 13:30 02/09/20 21:18 Senna (Senokot) 2 tab QHSP PRN PO CONSTIPATION 10/20/20 22:45 Sodium Chloride (Saline Lock Flush) 10 ml Q30D IV 02/01/20 09:00 02/01/20 15:33 Tamoxifen Citrate (Nolvadex) 20 mg DAILY PO 01/10/20 09:00 01/10/20 22:33 DC 01/10/20 08:31 Tamoxifen Citrate (Nolvadex) 20 mg DAILY PO 01/11/20 09:00 01/26/20 16:25 DC 01/26/20 08:08 Thiamine HCl (Thiamine HCl) 100 mg BID PO 01/10/20 21:00 01/13/20 20:59 DC 01/13/20 08:03 Torsemide (Demadex) 20 mg DAILY PO 01/10/20 09:00 01/10/20 22:33 DC 01/10/20 08:22 Torsemide (Demadex) 20 mg DAILY PO 01/11/20 09:00 01/19/20 16:37 DC 01/19/20 08:05 Torsemide (Demadex) 40 mg DAILY PO 01/20/20 09:00 02/10/20 08:33 Trazodone HCl (Desyrel) 50 mg QHSP PRN PO INSOMNIA 01/10/20 20:30 01/31/20 13:29 DC 01/30/20 20:47 Venlafaxine HCl (Effexor Xr) 225 mg DAILY PO 01/11/20 09:00 02/10/20 08:36 Venlafaxine HCl (Effexor) 225 mg DAILY PO 01/10/20 09:00 01/10/20 22:33 DC 01/10/20 08:28 Vitamin D (Vitamin D) 5,000 units DAILY PO 01/10/20 09:00 01/10/20 22:33 DC 01/10/20 08:20 Allergies Coded Allergies: amitriptyline (Verified Allergy, Severe, SWELLING, 11/29/19) Grass (Verified Allergy, Mild, ITCHY EYES,NOSE, 11/29/19) TAPE (Verified Allergy, Mild, RASH/BLISTER, 11/29/19) TREES (Verified Allergy, Mild, ITCHY EYES,NOSE, 11/29/19) adhesive (Verified Allergy, Unknown, 11/29/19) divalproex sodium (Verified Allergy, Unknown, 11/29/19) minocycline (Verified Allergy, Unknown, 11/29/19) mold (Verified Allergy, Unknown, 11/29/19) tetracycline (Verified Allergy, Unknown, 11/29/19) bupropion (Verified Adverse Reaction, Intermediate, ESOPHAGEAL SPASMS, 11/29/19) banana (Verified Adverse Reaction, Mild, VOMITING, 11/29/19) benztropine (Verified Adverse Reaction, Mild, BLURRED VISION, 11/29/19) clindamycin (Verified Adverse Reaction, Mild, HEART BURN, 11/29/19) gabapentin (Verified Adverse Reaction, Mild, extreme weakness, 11/29/19) metaxalone (Verified Adverse Reaction, Mild, itching, 11/29/19) pregabalin (Verified Adverse Reaction, Mild, EDEMA, 11/29/19) sulfamethoxazole (Verified Adverse Reaction, Mild, DIARRHEA, 11/29/19) tizanidine (Verified Adverse Reaction, Mild, ITCHING, 11/29/19) trazodone (Verified Adverse Reaction, Mild, EDEMA, 11/29/19) trimethoprim (Verified Adverse Reaction, Mild, DIARRHEA, 11/29/19) vilazodone (Verified Adverse Reaction, Mild, MOOD CHANGES, 11/29/19) cyclobenzaprine (Verified Adverse Reaction, Unknown, IRRITABILITY, 11/29/19) valproic acid (Unverified Adverse Reaction, Unknown, DOES NOT METABOLIZE, 11/29/19) MANJULA ALBRIGHT DO Feb 10, 2020 09:49
[2020-02-10 11:57] LABS: BASO % 0.4 % (0.0-1.0); EOS # 0.1 10^3/uL (0.0-0.5); EOS % 1.8 % (0.0-3.0); HEMATOCRIT 39.4 % (36.0-47.0); HEMOGLOBIN 12.6 g/dl (12.0-15.5); LYMPH # 0.8 10^3/uL (1.5-5.0); LYMPH % 13.8 % (24.0-44.0); MEAN CORPUSCULAR HEMOGLOBIN 27.7 pg (27.0-33.0); MEAN CORPUSCULAR VOLUME 86.6 fl (80.0-96.0); MONO # 0.6 10^3/uL (0.0-0.8); MONO % 10.1 % (0.0-5.0); NEUTROPHILS % 73.5 % (36.0-66.0); PLATELET COUNT, AUTOMATED 249 10^3/uL (150-450); RED BLOOD COUNT 4.55 10^6/uL (4.00-5.40); WHITE BLOOD COUNT 5.5 10^3/uL (4.0-10.0)
[2020-02-10 12:25] LABS: CREATININE FOR GFR 1.26 MG/DL (0.55-1.30); GLOMERULAR FILTRATION RATE 50.1 (>58); POTASSIUM SERUM 3.9 MEQ/L (3.5-5.1)
[2020-02-10 12:26] LABS: ALBUMIN 4.1 GM/DL (3.2-5.2); BILIRUBIN,TOTAL 0.3 MG/DL (0.2-1.0); CALCIUM LEVEL 9.1 MG/DL (8.5-10.1); MAGNESIUM LEVEL 2.3 MG/DL (1.8-2.4); TOTAL PROTEIN 6.7 GM/DL (6.4-8.2)
--- NOTE | 2020-02-10 13:16 | IPNPDOC ---
Text Note Date of Service The patient was seen on 02/10/20. NOTE Subjective: Patient is a 39 year old female with a PMHx of Neuralgia ophthalmicus, myasthenia gravis, fibromyalgia, chronic pain, depression, anxiety, borderline personality disorder, bipolar disorder who presented to the ER after increased depression with suicidal thoughts. Patient was admitted to inpatient mental health unit under the care of psychiatry. Hospital services were consulted for medical screening evaluation. I was called to reevaluate this patient for diarrhea. Patient was seen and examined at the bedside. Currently patient reports that she's been experiencing 3-4 bowel movements a day. She describes these as liquid, watery without blood or mucus. Patient reports that these bowel movements have started since arrival to the inpatient mental health unit, which has been more than 30 days ago. Patient has reported a remote history of infectious diarrhea years ago.. She denies the use of any recent antibiotics. Currently she reports some nausea. Denies any vomiting. Denies abdominal pain, or urinary discomfort. She denies any recent fevers or chills. Does experience hot and cold intolerance, denies any shortness breath, cough, chest pain or palpitations. Objective: Vitals (See below) General: Lying in bed, no acute distress, comfortable, AAOx3 HEENT: NC, AT CVS: RRR, +S1S2 Lungs: Fair air entry b/l, -w/r/r Abdomen: Soft, ND, NT Extremities: - Edema, - Calf tenderness Assessment and plan: Diarrhea - Patient has reported several episodes of diarrhea since admission - Remains hemodynamically stable and afebrile - Abdomen is benign on palpation - Lab work reviewed without any leukocytosis / mild elevation of creatinine - Review of medications, does reveal that she has received several doses of docusate - Will discontinue bowel regimen - Will hold off on diuretic therapy at this time and resume in 2 days if Cr is < 1 DVT prophylaxis - c/w early ambulation Female cremator was present throughout the duration of his history and physical examination Thank you for this reconsultation; hospitalist service will now sign off, please reconsult as needed VS,Fishbone, I+O VS, Fishbone, I+O Laboratory Tests 02/09/20 16:20 02/10/20 11:24 Vital Signs Date Time Temp Pulse Resp B/P (MAP) Pulse Ox O2 Delivery O2 Flow Rate FiO2 02/10/20 06:36 97.3 67 18 146/74 (98) Room Air 02/05/20 06:14 96 SLY MORENO MD Feb 10, 2020 13:16
[2020-02-10] MEDS: RAMELTEON 8 MG TAB (ROZEREM) PO PRN (21:12)
[2020-02-11 06:34] VITALS: BP 144/94
[2020-02-11] MEDS: NALTREXONE 50 MG TAB PO SCH ×2 (08:26→20:03)
[2020-02-11] MEDS: FLUoxetine 20 MG CAP PO SCH (08:27)
[2020-02-11] MEDS: MULTIVITAMINS/MINERALS THERAP 1 TAB PO SCH (08:27)
[2020-02-11] MEDS: VENLAFAXINE **XR** 75MG CAPSULE PO SCH (08:27)
[2020-02-11] MEDS: acetaZOLAMIDE 500 MG ER CAP PO SCH ×2 (08:27→20:03)
[2020-02-11] MEDS: OMEGA-3 1000MG CAPSULE PO SCH (08:27)
[2020-02-11] MEDS: POTASSIUM CHLORIDE 10 MEQ SR TABLET PO SCH (08:27)
[2020-02-11] MEDS: MYCOPHENOLATE MOFETIL 250 MG CAP (J7517) PO SCH ×3 (08:28→20:03)
[2020-02-11] MEDS: MELOXICAM (MOBIC) 7.5 MG TAB PO SCH (08:28)
[2020-02-11] MEDS: OMEPRAZOLE 20 MG CAP PO SCH (08:28)
[2020-02-11] MEDS: FOLIC ACID 1 MG TAB PO SCH (08:28)
[2020-02-11] MEDS: ACYCLOVIR 200 MG CAPSULE PO SCH ×2 (08:28→20:03)
[2020-02-11] MEDS: BACLOFEN 10 MG TAB PO SCH ×3 (08:28→20:03)
[2020-02-11] MEDS: BACITRACIN OINTMENT 30GM TUBE TOP SCH ×3 (08:29→20:03)
[2020-02-11] MEDS: PYRIDOSTIGMINE 60 MG TAB PO SCH ×4 (08:29→20:03)
[2020-02-11] MEDS: OXAZEPAM 10 MG CAP PO PRN (11:20)
[2020-02-11 16:00] VITALS: BP 141/76
[2020-02-11] MEDS: cloZAPine 25 MG TAB (S0136) PO SCH (19:04)
[2020-02-12 06:53] VITALS: BP 148/77
[2020-02-12] MEDS: BACITRACIN OINTMENT 30GM TUBE TOP SCH ×3 (08:52→21:00)
[2020-02-12] MEDS: acetaZOLAMIDE 500 MG ER CAP PO SCH ×2 (08:56→20:41)
[2020-02-12] MEDS: MYCOPHENOLATE MOFETIL 250 MG CAP (J7517) PO SCH ×3 (08:58→20:42)
[2020-02-12] MEDS: TORSEMIDE 20 MG TAB PO SCH (09:00)
[2020-02-12] MEDS: VENLAFAXINE **XR** 75MG CAPSULE PO SCH (09:02)
[2020-02-12 09:03] LABS: CALCIUM LEVEL 9.5 MG/DL (8.5-10.1); CREATININE FOR GFR 1.27 MG/DL (0.55-1.30); GLOMERULAR FILTRATION RATE 49.6 (>58); POTASSIUM SERUM 3.7 MEQ/L (3.5-5.1)
[2020-02-12] MEDS: FOLIC ACID 1 MG TAB PO SCH (09:03)
[2020-02-12] MEDS: BACLOFEN 10 MG TAB PO SCH ×3 (09:03→20:41)
[2020-02-12] MEDS: PYRIDOSTIGMINE 60 MG TAB PO SCH ×4 (09:03→20:42)
[2020-02-12] MEDS: POTASSIUM CHLORIDE 10 MEQ SR TABLET PO SCH (09:04)
[2020-02-12] MEDS: MELOXICAM (MOBIC) 7.5 MG TAB PO SCH (09:04)
[2020-02-12] MEDS: OMEPRAZOLE 20 MG CAP PO SCH (09:05)
[2020-02-12] MEDS: FLUoxetine 20 MG CAP PO SCH (09:05)
[2020-02-12] MEDS: NALTREXONE 50 MG TAB PO SCH ×2 (09:05→20:41)
[2020-02-12] MEDS: OMEGA-3 1000MG CAPSULE PO SCH (09:05)
[2020-02-12] MEDS: MULTIVITAMINS/MINERALS THERAP 1 TAB PO SCH (09:05)
[2020-02-12] MEDS: ACYCLOVIR 200 MG CAPSULE PO SCH ×2 (09:06→20:41)
[2020-02-12] MEDS: OXAZEPAM 10 MG CAP PO PRN (10:43)
[2020-02-12] MEDS: PILL CUTTER 1 EACH XX PRN ×2 (12:48→16:34)
[2020-02-12] MEDS ORDERED: OXAZEPAM 10 MG CAP PO ONE (17:30)
[2020-02-12 18:57] VITALS: BP 118/68
[2020-02-12] MEDS: cloZAPine 25 MG TAB (S0136) PO SCH (20:42)
[2020-02-13 06:59] VITALS: BP 145/73
[2020-02-13] MEDS: TORSEMIDE 20 MG TAB PO SCH (08:55)
[2020-02-13] MEDS: MULTIVITAMINS/MINERALS THERAP 1 TAB PO SCH (08:59)
[2020-02-13] MEDS: BACITRACIN OINTMENT 30GM TUBE TOP SCH ×3 (09:00→20:05)
[2020-02-13] MEDS: PILL CUTTER 1 EACH XX PRN ×3 (09:00→17:13)
[2020-02-13] MEDS: ACYCLOVIR 200 MG CAPSULE PO SCH ×2 (09:00→20:02)
[2020-02-13] MEDS: FLUoxetine 20 MG CAP PO SCH (09:01)
[2020-02-13] MEDS: POTASSIUM CHLORIDE 10 MEQ SR TABLET PO SCH (09:01)
[2020-02-13] MEDS: MYCOPHENOLATE MOFETIL 250 MG CAP (J7517) PO SCH ×3 (09:01→20:05)
[2020-02-13] MEDS: FOLIC ACID 1 MG TAB PO SCH (09:02)
[2020-02-13] MEDS: OMEGA-3 1000MG CAPSULE PO SCH (09:02)
[2020-02-13] MEDS: OMEPRAZOLE 20 MG CAP PO SCH (09:02)
[2020-02-13] MEDS: VENLAFAXINE **XR** 75MG CAPSULE PO SCH (09:02)
[2020-02-13] MEDS: PYRIDOSTIGMINE 60 MG TAB PO SCH ×4 (09:02→20:04)
[2020-02-13] MEDS: NALTREXONE 50 MG TAB PO SCH ×2 (09:03→20:02)
[2020-02-13] MEDS: BACLOFEN 10 MG TAB PO SCH ×3 (09:03→20:02)
[2020-02-13] MEDS: acetaZOLAMIDE 500 MG ER CAP PO SCH ×2 (09:03→20:01)
[2020-02-13] MEDS: MELOXICAM (MOBIC) 7.5 MG TAB PO SCH (09:03)
--- NOTE | 2020-02-13 09:43 | MHIPNPDOC ---
[facility] Progress Note Progress Note DATE OF SERVICE: 02/13/20 HISTORY: The patient is met with today, she reports that she feels worse in she has not made much progress in her opinion. She feels the medicine has been in effective that she still feels fairly depressed, hopeless with little interest in daily activities. She reports still feeling quite despondent but her suicidal thoughts have generally been unchanged. She reports no side effects from the Clozaril, with no constipation.. VITAL SIGNS: See below. NEW TEST RESULTS: NA. CURRENT MEDICATIONS: See below. MENTAL STATUS EXAMINATION: General: [Well dressed with good hygiene] Speech: [Spontaneous and fluid] Thought processes: [Linear and logical] Thought content: Hopelessness Abstract reasoning, and computation: [Intact] Description of associations: [Intact] Description of abnormal or psychotic thoughts: Reports unchanged passive SI, as well as self-regulating thoughts unchanged Judgment: Poor Insight: Poor Orientation: [Alert and orientated 3] Recent and remote memory: [Intact] Attention span and concentration: [Intact] Fund of knowledge: [Adequate] Mood: "Fine" Affect: Dysthymic and constricted DIAGNOSES: 1. MDD, recurrent, severe without psychotic features. 2. Borderline personality disorder 3. . ASSESSMENT: The patient doesn't appear to be making much progress, it's unclear whether her borderline traits are making it difficult for her to adapt to difficult social settings but she does appear to become much more depressed recently will attempt to continue titrating the causal is the patient's only amenable to trying this and had an uninterested in further titration of the Rexulti despite some improvement she had had. MANAGEMENT PLAN: We'll continue Clozaril with increased to 50 mg nightly, denies any constipation reports some mild loose stools. Will continue Prozac and Effexor as well as naltrexone pain management. Patient is quite eager about increasing the dose however due to its unusual side effects will be cautious, will draw CBC shortly due to her chemotherapy for cancer, although it appears in the past she has tolerated the Clozaril with her chemotherapy without major issue in terms of her CBC. TIME SPENT: 15 minutes. Vital Signs Vital Signs Date Time Temp Pulse Resp B/P (MAP) Pulse Ox O2 Delivery O2 Flow Rate FiO2 02/13/20 06:59 97.2 70 16 145/73 (97) 99 Room Air Current Medications Current Medications Medications (Trade) Dose Ordered Sig/Ben Route PRN Reason Start Time Stop Time Status Last Admin Dose Admin Acetaminophen (Tylenol Tab) 650 mg Q6HP PRN PO HEADACHE or DISCOMFORT 01/10/20 20:30 02/08/20 08:41 Acetazolamide (Diamox Sequels) 500 mg BID PO 01/10/20 21:00 02/13/20 09:03 Acetazolamide (Diamox) 500 mg BID PO 01/10/20 09:00 01/10/20 22:33 DC 01/10/20 08:29 Acyclovir (Zovirax) 400 mg BID PO 01/10/20 09:00 01/10/20 22:33 DC 01/10/20 08:22 Acyclovir (Zovirax) 400 mg BID PO 01/10/20 21:00 02/13/20 09:00 Al Hydrox/Mg Hydrox/Simethicone (Mylanta) 30 ml Q4HP PRN PO HEARTBURN/INDIGESTION 01/10/20 20:30 02/03/20 17:46 Albuterol Sulfate (Proventil, Ventolin Hfa) 2 puff Q2HP PRN INH SHORTNESS OF BREATH 01/11/20 12:15 01/20/20 08:22 Bacitracin (Bacitracin Oint) apply to left arm lacerations TID TOP 01/11/20 21:00 02/09/20 16:41 Baclofen (Lioresal) 10 mg TID PO 01/16/20 16:00 02/13/20 09:03 Baclofen (Lioresal) 10 mg TIDP PRN PO MUSCLE SPASMS 01/10/20 22:45 01/16/20 11:38 DC 01/16/20 08:51 Brexpiprazole (Rexulti) 0.5 mg DAILY PO 02/01/20 09:00 02/06/20 12:33 DC 02/06/20 09:52 Brexpiprazole (Rexulti) 1 mg DAILY PO 02/07/20 09:00 02/09/20 15:59 DC 02/09/20 10:09 Clonazepam (KlonoPIN) 1 mg TID PRN PO ANXIETY/AGITATION 02/08/20 16:30 02/09/20 15:59 DC 02/09/20 09:27 Clozapine (Clozaril) 12.5 mg BID PO 02/09/20 21:00 02/10/20 13:31 DC 02/10/20 08:33 Clozapine (Clozaril) 25 mg QHS PO 02/11/20 21:00 02/12/20 20:42 Clozapine (Clozaril) 100 mg QHS PO 01/10/20 21:00 01/20/20 17:14 DC 01/19/20 20:53 Clozapine (Clozaril) 125 mg QHS PO 01/20/20 21:00 01/25/20 11:52 DC 01/24/20 20:33 Clozapine (Clozaril) 150 mg QHS PO 01/20/20 21:00 01/20/20 17:16 DC Clozapine (Clozaril) 150 mg QHS PO 01/25/20 21:00 01/31/20 13:28 DC 01/30/20 20:47 Docusate Sodium (Colace) 100 mg DAILY PO 01/11/20 09:00 02/10/20 13:12 DC 02/09/20 09:49 Fish Oil ([place]-3 (1000mg)) 1 cap DAILY PO 01/10/20 09:00 01/10/20 22:33 DC 01/10/20 08:29 Fish Oil ([place]-3 (1000mg)) 1 cap DAILY PO 01/11/20 09:00 02/13/20 09:02 Fluoxetine HCl (PROzac) 20 mg DAILY PO 01/10/20 09:00 01/10/20 22:33 DC 01/10/20 08:22 Fluoxetine HCl (PROzac) 20 mg DAILY PO 01/11/20 09:00 01/12/20 12:40 DC 01/12/20 08:33 Fluoxetine HCl (PROzac) 30 mg DAILY PO 01/13/20 09:00 01/16/20 11:35 DC 01/16/20 08:50 Fluoxetine HCl (PROzac) 40 mg DAILY PO 01/17/20 09:00 02/13/20 09:01 Folic Acid (Folic Acid) 1 mg DAILY PO 01/10/20 09:00 01/10/20 20:27 DC 01/10/20 08:23 Folic Acid (Folic Acid) 1 mg DAILY PO 01/11/20 09:00 02/13/20 09:02 Folic Acid (Folic Acid) 1 mg DAILY PO 01/11/20 09:00 Cancel Heparin Sodium (Heparin (Flush)) 500 units Q30D@09 IV 02/01/20 09:00 02/01/20 15:33 Home Med (Med Rec Complete!) ASDIRECTED XX 01/10/20 21:45 01/10/20 21:35 DC Hydroxyzine HCl (Atarax) 50 mg Q6HP PRN PO anxiety 01/19/20 17:00 01/24/20 14:12 DC 01/24/20 12:58 Hydroxyzine HCl (Atarax) 50 mg QID PO 01/10/20 13:00 01/10/20 22:33 DC 01/10/20 17:03 Hydroxyzine HCl (Atarax) 50 mg QID PO 01/11/20 13:00 01/19/20 16:52 DC 01/19/20 15:53 Hydroxyzine HCl (Atarax) 50 mg QIDP PRN PO ANXIETY 01/10/20 22:45 01/11/20 12:19 DC 01/11/20 08:37 Hydroxyzine HCl (Atarax) 100 mg BID PO 01/19/20 21:00 01/20/20 11:16 DC 01/20/20 08:25 Hydroxyzine HCl (Atarax) 100 mg BID@0900,1500 PO 01/20/20 15:00 01/31/20 13:28 DC 01/31/20 08:10 Ibuprofen (Advil) 400 mg Q6HP PRN PO PAIN 02/05/20 15:00 02/07/20 18:04 Loperamide HCl (Imodium) 2 mg ASDIRECTED PRN PO DIARRHEA 02/03/20 19:30 02/04/20 11:05 Lorazepam (Ativan) 2 mg ASDIRECTED PRN PO SEE PROTOCOL 01/10/20 20:30 01/11/20 16:44 DC Magnesium Hydroxide (Milk Of Magnesia) 30 ml DAILYPRN PRN PO CONSTIPATION 01/10/20 20:30 02/10/20 13:12 DC Meloxicam (Mobic) 15 mg DAILY PO 01/11/20 09:00 02/13/20 09:03 Mirtazapine (Remeron) 30 mg QHS PO 01/10/20 21:00 01/31/20 13:28 DC 01/30/20 20:48 Miscellaneous (Unresolved Clarification Entry) SEE LABEL COMMENTS DAILY XX 01/15/20 09:00 01/15/20 11:17 DC Multivitamins (Theragram-M) 1 tab DAILY PO 01/11/20 09:00 02/13/20 08:59 Mycophenolate Mofetil (Cellcept) 500 mg TID PO 01/10/20 09:00 01/10/20 22:33 DC 01/10/20 17:04 Mycophenolate Mofetil (Cellcept) 1,000 mg TID PO 01/10/20 21:00 02/13/20 09:01 Naltrexone HCl (Revia) 50 mg BID PO 01/10/20 09:00 01/10/20 22:33 DC 01/10/20 08:28 Naltrexone HCl (Revia) 50 mg BID PO 01/10/20 21:00 02/13/20 09:03 Olanzapine (ZyPREXA ZYDIS) 5 mg Q4HP PRN PO ANXIETY/AGITATION 01/11/20 16:45 01/19/20 16:55 DC 01/19/20 15:56 Omeprazole (PriLOSEC) 20 mg DAILY PO 01/10/20 09:00 01/10/20 22:33 DC 01/10/20 08:21 Omeprazole (PriLOSEC) 20 mg DAILY PO 01/11/20 09:00 02/13/20 09:02 Oxazepam (Serax) 10 mg BIDP PRN PO ANXIETY 02/03/20 12:00 02/12/20 10:43 Oxazepam (Serax) 10 mg DAILYPRN PRN PO ANXIETY 01/31/20 13:30 02/03/20 11:55 DC 02/03/20 06:44 Potassium Chloride (Micro-K Extencaps) 20 meq DAILY PO 01/10/20 09:00 01/10/20 22:33 DC 01/10/20 08:22 Potassium Chloride (Micro-K Extencaps) 20 meq DAILY PO 01/11/20 09:00 02/13/20 09:01 Pyridostigmine [place] (Mestinon) 90 mg QID PO 01/10/20 09:00 01/10/20 22:33 DC 01/10/20 17:02 Pyridostigmine [place] (Mest[place]) 90 mg QID PO 01/10/20 21:00 02/13/20 09:02 Ramelteon (Rozerem) 8 mg QHS PRN PO INSOMNIA 01/31/20 13:30 02/10/20 21:12 Senna (Senokot) 2 tab QHSP PRN PO CONSTIPATION 01/10/20 22:45 02/10/20 13:12 DC Sodium Chloride (Saline Lock Flush) 10 ml Q30D IV 02/01/20 09:00 02/01/20 15:33 Tamoxifen Citrate (Nolvadex) 20 mg DAILY PO 01/10/20 09:00 01/10/20 22:33 DC 01/10/20 08:31 Tamoxifen Citrate (Nolvadex) 20 mg DAILY PO 01/11/20 09:00 01/26/20 16:25 DC 01/26/20 08:08 Thiamine HCl (Thiamine HCl) 100 mg BID PO 01/10/20 21:00 01/13/20 20:59 DC 01/13/20 08:03 Torsemide (Demadex) 20 mg DAILY PO 01/10/20 09:00 01/10/20 22:33 DC 01/10/20 08:22 Torsemide (Demadex) 20 mg DAILY PO 01/11/20 09:00 01/19/20 16:37 DC 01/19/20 08:05 Torsemide (Demadex) 40 mg DAILY PO 01/20/20 09:00 02/10/20 13:01 DC 02/10/20 08:33 Torsemide (Demadex) 40 mg DAILY PO 02/12/20 09:00 Trazodone HCl (Desyrel) 50 mg QHSP PRN PO INSOMNIA 01/10/20 20:30 01/31/20 13:29 DC 01/30/20 20:47 Venlafaxine HCl (Effexor Xr) 225 mg DAILY PO 01/11/20 09:00 02/13/20 09:02 Venlafaxine HCl (Effexor) 225 mg DAILY PO 01/10/20 09:00 01/10/20 22:33 DC 01/10/20 08:28 Vitamin D (Vitamin D) 5,000 units DAILY PO 01/10/20 09:00 01/10/20 22:33 DC 01/10/20 08:20 Allergies Coded Allergies: amitriptyline (Verified Allergy, Severe, SWELLING, 11/29/19) Grass (Verified Allergy, Mild, ITCHY EYES,NOSE, 11/29/19) TAPE (Verified Allergy, Mild, RASH/BLISTER, 11/29/19) TREES (Verified Allergy, Mild, ITCHY EYES,NOSE, 11/29/19) adhesive (Verified Allergy, Unknown, 11/29/19) divalproex sodium (Verified Allergy, Unknown, 11/29/19) minocycline (Verified Allergy, Unknown, 11/29/19) mold (Verified Allergy, Unknown, 11/29/19) tetracycline (Verified Allergy, Unknown, 11/29/19) bupropion (Verified Adverse Reaction, Intermediate, ESOPHAGEAL SPASMS, 11/29/19) banana (Verified Adverse Reaction, Mild, VOMITING, 11/29/19) benztropine (Verified Adverse Reaction, Mild, BLURRED VISION, 11/29/19) clindamycin (Verified Adverse Reaction, Mild, HEART BURN, 11/29/19) gabapentin (Verified Adverse Reaction, Mild, extreme weakness, 11/29/19) metaxalone (Verified Adverse Reaction, Mild, itching, 11/29/19) pregabalin (Verified Adverse Reaction, Mild, EDEMA, 11/29/19) sulfamethoxazole (Verified Adverse Reaction, Mild, DIARRHEA, 11/29/19) tizanidine (Verified Adverse Reaction, Mild, ITCHING, 11/29/19) trazodone (Verified Adverse Reaction, Mild, EDEMA, 11/29/19) trimethoprim (Verified Adverse Reaction, Mild, DIARRHEA, 11/29/19) vilazodone (Verified Adverse Reaction, Mild, MOOD CHANGES, 11/29/19) cyclobenzaprine (Verified Adverse Reaction, Unknown, IRRITABILITY, 11/29/19) valproic acid (Unverified Adverse Reaction, Unknown, DOES NOT METABOLIZE, 11/29/19) MANJULA ALBRIGHT DO Feb 13, 2020 09:43
[2020-02-13] MEDS: LOPERAMIDE 2 MG CAPLET PO PRN ×4 (10:20→17:49)
[2020-02-13] MEDS: OXAZEPAM 10 MG CAP PO PRN (11:38)
[2020-02-13 11:40] LABS: BASO % 0.5 % (0.0-1.0); EOS # 0.3 10^3/uL (0.0-0.5); EOS % 5.1 % (0.0-3.0); HEMATOCRIT 39.1 % (36.0-47.0); HEMOGLOBIN 12.8 g/dl (12.0-15.5); LYMPH # 0.7 10^3/uL (1.5-5.0); LYMPH % 11.6 % (24.0-44.0); MEAN CORPUSCULAR HEMOGLOBIN 28.5 pg (27.0-33.0); MEAN CORPUSCULAR HGB CONC 32.7 g/dl (32.0-36.5); MEAN CORPUSCULAR VOLUME 87.1 fl (80.0-96.0); MONO # 0.6 10^3/uL (0.0-0.8); MONO % 10.3 % (0.0-5.0); NEUTROPHILS # 4.4 10^3/uL (1.5-8.5); NEUTROPHILS % 71.8 % (36.0-66.0); PLATELET COUNT, AUTOMATED 239 10^3/uL (150-450); RED BLOOD COUNT 4.49 10^6/uL (4.00-5.40); WHITE BLOOD COUNT 6.1 10^3/uL (4.0-10.0)
[2020-02-13] MEDS: RAMELTEON 8 MG TAB (ROZEREM) PO PRN (20:02)
[2020-02-13] MEDS ORDERED: cloZAPine 25 MG TAB (S0136) PO SCH (21:00)
[2020-02-14 06:21] VITALS: BP 133/71
[2020-02-14] MEDS: MULTIVITAMINS/MINERALS THERAP 1 TAB PO SCH (08:08)
[2020-02-14] MEDS: PILL CUTTER 1 EACH XX PRN ×3 (08:08→16:32)
[2020-02-14] MEDS: FLUoxetine 20 MG CAP PO SCH (08:09)
[2020-02-14] MEDS: PYRIDOSTIGMINE 60 MG TAB PO SCH ×4 (08:09→22:56)
[2020-02-14] MEDS: OMEGA-3 1000MG CAPSULE PO SCH (08:09)
[2020-02-14] MEDS: acetaZOLAMIDE 500 MG ER CAP PO SCH ×2 (08:09→22:55)
[2020-02-14] MEDS: NALTREXONE 50 MG TAB PO SCH ×2 (08:09→22:55)
[2020-02-14] MEDS: ACYCLOVIR 200 MG CAPSULE PO SCH ×2 (08:09→22:54)
[2020-02-14] MEDS: OMEPRAZOLE 20 MG CAP PO SCH (08:09)
[2020-02-14] MEDS: FOLIC ACID 1 MG TAB PO SCH (08:10)
[2020-02-14] MEDS: MELOXICAM (MOBIC) 7.5 MG TAB PO SCH (08:10)
[2020-02-14] MEDS: POTASSIUM CHLORIDE 10 MEQ SR TABLET PO SCH (08:10)
[2020-02-14] MEDS: MYCOPHENOLATE MOFETIL 250 MG CAP (J7517) PO SCH ×3 (08:10→22:56)
[2020-02-14] MEDS: BACLOFEN 10 MG TAB PO SCH ×3 (08:10→22:57)
[2020-02-14] MEDS: BACITRACIN OINTMENT 30GM TUBE TOP SCH ×3 (08:11→22:55)
[2020-02-14] MEDS: OXAZEPAM 10 MG CAP PO PRN (08:11)
[2020-02-14] MEDS: VENLAFAXINE **XR** 75MG CAPSULE PO SCH (08:11)
[2020-02-14] MEDS: TORSEMIDE 20 MG TAB PO SCH (08:11)
--- NOTE | 2020-02-14 09:56 | MHIPNPDOC ---
[facility] Progress Note Progress Note DATE OF SERVICE: 02/14/20 HISTORY: the patient is met with today, she has been notably quite dysphoric today, posting signs on her door for people to go away and that she feels that she is "broken". The patient reports that she is still quite depressed and dysphoric and that although she has less anxiety, she still feels hopeless, helpless and unable to engage in any meaningful activity VITAL SIGNS: See below. NEW TEST RESULTS: NA. CURRENT MEDICATIONS: See below. MENTAL STATUS EXAMINATION: General: [Well dressed with good hygiene] Speech: [Spontaneous and fluid] Thought processes: [Linear and logical] Thought content: Hopelessness Abstract reasoning, and computation: [Intact] Description of associations: [Intact] Description of abnormal or psychotic thoughts. Reports some SI, similar in intensity as prior, self mutilating thoughts more present Judgment: Poor Insight: Poor Orientation: [Alert and orientated 3] Recent and remote memory: [Intact] Attention span and concentration: [Intact] Fund of knowledge: [Adequate] Mood: "Fine" Affect: Dysthymic and constricted DIAGNOSES: 1. MDD, recurrent, severe without psychotic features. 2. Borderline personality disorder ASSESSMENT: will continue to increase Clozaril, recommend low threshold for putting the sitter back on when one sitter, ambivalent about this at this time as the patient generally tends to regress in the situations becomes harder to engage. She hasn't had any self harming activity and the staff are more closely monitoring her more than every 15 minutes with a cautious side to any unusual behavior. MANAGEMENT PLAN: increase Clozaril to 75 Milgram's daily, no constipation at this time, CBC to be drawn Continue Effexor 225 Milgram's daily Continue Prozac 40 mg daily Discharge process is still unclear, will attempt to utilize Clozaril as patient is only amenable to taking this unclear if this is related to borderline traits or whether she generally doesn't feel benefit from the previous rexculti TIME SPENT: 15 minutes. Vital Signs Vital Signs Date Time Temp Pulse Resp B/P (MAP) Pulse Ox O2 Delivery O2 Flow Rate FiO2 02/14/20 06:21 99.2 72 16 133/71 (91) 99 Room Air Laboratory Data 24H Labs Laboratory Tests 2 02/13/20 11:19: Immature Granulocyte % (Auto) 0.7, Neutrophils (%) (Auto) 71.8H, Lymphocytes (%) (Auto) 11.6L, Monocytes (%) (Auto) 10.3H, Eosinophils (%) (Auto) 5.1H, Basophils (%) (Auto) 0.5, Neutrophils # (Auto) 4.4, Lymphocytes # (Auto) 0.7L, Monocytes # (Auto) 0.6, Eosinophils # (Auto) 0.3, Basophils # (Auto) 0.0, Nucleated Red Blood Cells % (auto) 0.0 CBC/BMP Laboratory Tests 02/13/20 11:19 Current Medications Current Medications Medications (Trade) Dose Ordered Sig/Ben Route PRN Reason Start Time Stop Time Status Last Admin Dose Admin Acetaminophen (Tylenol Tab) 650 mg Q6HP PRN PO HEADACHE or DISCOMFORT 01/10/20 20:30 02/08/20 08:41 Acetazolamide (Diamox Sequels) 500 mg BID PO 01/10/20 21:00 02/14/20 08:09 Acetazolamide (Diamox) 500 mg BID PO 01/10/20 09:00 01/10/20 22:33 DC 01/10/20 08:29 Acyclovir (Zovirax) 400 mg BID PO 01/10/20 09:00 01/10/20 22:33 DC 01/10/20 08:22 Acyclovir (Zovirax) 400 mg BID PO 01/10/20 21:00 02/14/20 08:09 Al Hydrox/Mg Hydrox/Simethicone (Mylanta) 30 ml Q4HP PRN PO HEARTBURN/INDIGESTION 01/10/20 20:30 02/03/20 17:46 Albuterol Sulfate (Proventil, Ventolin Hfa) 2 puff Q2HP PRN INH SHORTNESS OF BREATH 01/11/20 12:15 01/20/20 08:22 Bacitracin (Bacitracin Oint) apply to left arm lacerations TID TOP 01/11/20 21:00 02/09/20 16:41 Baclofen (Lioresal) 10 mg TID PO 01/16/20 16:00 02/14/20 08:10 Baclofen (Lioresal) 10 mg TIDP PRN PO MUSCLE SPASMS 01/10/20 22:45 01/16/20 11:38 DC 01/16/20 08:51 Brexpiprazole (Rexulti) 0.5 mg DAILY PO 02/01/20 09:00 02/06/20 12:33 DC 02/06/20 09:52 Brexpiprazole (Rexulti) 1 mg DAILY PO 02/07/20 09:00 02/09/20 15:59 DC 02/09/20 10:09 Clonazepam (KlonoPIN) 1 mg TID PRN PO ANXIETY/AGITATION 02/08/20 16:30 02/09/20 15:59 DC 02/09/20 09:27 Clozapine (Clozaril) 12.5 mg BID PO 02/09/20 21:00 02/10/20 13:31 DC 02/10/20 08:33 Clozapine (Clozaril) 25 mg QHS PO 02/11/20 21:00 02/13/20 11:00 DC 02/12/20 20:42 Clozapine (Clozaril) 50 mg QHS PO 02/13/20 21:00 02/13/20 20:02 Clozapine (Clozaril) 100 mg QHS PO 01/10/20 21:00 01/20/20 17:14 DC 01/19/20 20:53 Clozapine (Clozaril) 125 mg QHS PO 01/20/20 21:00 01/25/20 11:52 DC 01/24/20 20:33 Clozapine (Clozaril) 150 mg QHS PO 01/20/20 21:00 01/20/20 17:16 DC Clozapine (Clozaril) 150 mg QHS PO 01/25/20 21:00 01/31/20 13:28 DC 01/30/20 20:47 Docusate Sodium (Colace) 100 mg DAILY PO 01/11/20 09:00 02/10/20 13:12 DC 02/09/20 09:49 Fish Oil ([place]-3 (1000mg)) 1 cap DAILY PO 01/10/20 09:00 01/10/20 22:33 DC 01/10/20 08:29 Fish Oil ([place]-3 (1000mg)) 1 cap DAILY PO 01/11/20 09:00 02/14/20 08:09 Fluoxetine HCl (PROzac) 20 mg DAILY PO 01/10/20 09:00 01/10/20 22:33 DC 01/10/20 08:22 Fluoxetine HCl (PROzac) 20 mg DAILY PO 01/11/20 09:00 01/12/20 12:40 DC 01/12/20 08:33 Fluoxetine HCl (PROzac) 30 mg DAILY PO 01/13/20 09:00 01/16/20 11:35 DC 01/16/20 08:50 Fluoxetine HCl (PROzac) 40 mg DAILY PO 01/17/20 09:00 02/14/20 08:09 Folic Acid (Folic Acid) 1 mg DAILY PO 01/10/20 09:00 01/10/20 20:27 DC 01/10/20 08:23 Folic Acid (Folic Acid) 1 mg DAILY PO 01/11/20 09:00 02/14/20 08:10 Folic Acid (Folic Acid) 1 mg DAILY PO 01/11/20 09:00 Cancel Heparin Sodium (Heparin (Flush)) 500 units Q30D@09 IV 02/01/20 09:00 02/01/20 15:33 Home Med (Med Rec Complete!) ASDIRECTED XX 01/10/20 21:45 01/10/20 21:35 DC Hydroxyzine HCl (Atarax) 50 mg Q6HP PRN PO anxiety 01/19/20 17:00 01/24/20 14:12 DC 01/24/20 12:58 Hydroxyzine HCl (Atarax) 50 mg QID PO 01/10/20 13:00 01/10/20 22:33 DC 01/10/20 17:03 Hydroxyzine HCl (Atarax) 50 mg QID PO 01/11/20 13:00 01/19/20 16:52 DC 01/19/20 15:53 Hydroxyzine HCl (Atarax) 50 mg QIDP PRN PO ANXIETY 01/10/20 22:45 01/11/20 12:19 DC 01/11/20 08:37 Hydroxyzine HCl (Atarax) 100 mg BID PO 01/19/20 21:00 01/20/20 11:16 DC 01/20/20 08:25 Hydroxyzine HCl (Atarax) 100 mg BID@0900,1500 PO 01/20/20 15:00 01/31/20 13:28 DC 01/31/20 08:10 Ibuprofen (Advil) 400 mg Q6HP PRN PO PAIN 02/05/20 15:00 02/07/20 18:04 Loperamide HCl (Imodium) 2 mg ASDIRECTED PRN PO DIARRHEA 02/03/20 19:30 02/13/20 17:49 Lorazepam (Ativan) 2 mg ASDIRECTED PRN PO SEE PROTOCOL 01/10/20 20:30 01/11/20 16:44 DC Magnesium Hydroxide (Milk Of Magnesia) 30 ml DAILYPRN PRN PO CONSTIPATION 01/10/20 20:30 02/10/20 13:12 DC Meloxicam (Mobic) 15 mg DAILY PO 01/11/20 09:00 02/14/20 08:10 Mirtazapine (Remeron) 30 mg QHS PO 01/10/20 21:00 01/31/20 13:28 DC 01/30/20 20:48 Miscellaneous (Unresolved Clarification Entry) SEE LABEL COMMENTS DAILY XX 01/15/20 09:00 01/15/20 11:17 DC Multivitamins (Theragram-M) 1 tab DAILY PO 01/11/20 09:00 02/14/20 08:08 Mycophenolate Mofetil (Cellcept) 500 mg TID PO 01/10/20 09:00 01/10/20 22:33 DC 01/10/20 17:04 Mycophenolate Mofetil (Cellcept) 1,000 mg TID PO 01/10/20 21:00 02/14/20 08:10 Naltrexone HCl (Revia) 50 mg BID PO 01/10/20 09:00 01/10/20 22:33 DC 01/10/20 08:28 Naltrexone HCl (Revia) 50 mg BID PO 01/10/20 21:00 02/14/20 08:09 Olanzapine (ZyPREXA ZYDIS) 5 mg Q4HP PRN PO ANXIETY/AGITATION 01/11/20 16:45 01/19/20 16:55 DC 01/19/20 15:56 Omeprazole (PriLOSEC) 20 mg DAILY PO 01/10/20 09:00 01/10/20 22:33 DC 01/10/20 08:21 Omeprazole (PriLOSEC) 20 mg DAILY PO 01/11/20 09:00 02/14/20 08:09 Oxazepam (Serax) 10 mg BIDP PRN PO ANXIETY 02/03/20 12:00 02/14/20 08:11 Oxazepam (Serax) 10 mg DAILYPRN PRN PO ANXIETY 01/31/20 13:30 02/03/20 11:55 DC 02/03/20 06:44 Potassium Chloride (Micro-K Extencaps) 20 meq DAILY PO 01/10/20 09:00 01/10/20 22:33 DC 01/10/20 08:22 Potassium Chloride (Micro-K Extencaps) 20 meq DAILY PO 01/11/20 09:00 02/14/20 08:10 Pyridostigmine [place] (Mestinon) 90 mg QID PO 01/10/20 09:00 01/10/20 22:33 DC 01/10/20 17:02 Pyridostigmine [place] ([place]) 90 mg QID PO 01/10/20 21:00 02/14/20 08:09 Ramelteon (Rozerem) 8 mg QHS PRN PO INSOMNIA 01/31/20 13:30 02/13/20 20:02 Senna (Senokot) 2 tab QHSP PRN PO CONSTIPATION 01/10/20 22:45 02/10/20 13:12 DC Sodium Chloride (Saline Lock Flush) 10 ml Q30D IV 02/01/20 09:00 02/01/20 15:33 Tamoxifen Citrate (Nolvadex) 20 mg DAILY PO 01/10/20 09:00 01/10/20 22:33 DC 01/10/20 08:31 Tamoxifen Citrate (Nolvadex) 20 mg DAILY PO 01/11/20 09:00 01/26/20 16:25 DC 01/26/20 08:08 Thiamine HCl (Thiamine HCl) 100 mg BID PO 01/10/20 21:00 01/13/20 20:59 DC 01/13/20 08:03 Torsemide (Demadex) 20 mg DAILY PO 01/10/20 09:00 01/10/20 22:33 DC 01/10/20 08:22 Torsemide (Demadex) 20 mg DAILY PO 01/11/20 09:00 01/19/20 16:37 DC 01/19/20 08:05 Torsemide (Demadex) 40 mg DAILY PO 01/20/20 09:00 02/10/20 13:01 DC 02/10/20 08:33 Torsemide (Demadex) 40 mg DAILY PO 02/12/20 09:00 Trazodone HCl (Desyrel) 50 mg QHSP PRN PO INSOMNIA 01/10/20 20:30 01/31/20 13:29 DC 01/30/20 20:47 Venlafaxine HCl (Effexor Xr) 225 mg DAILY PO 01/11/20 09:00 02/14/20 08:11 Venlafaxine HCl (Effexor) 225 mg DAILY PO 01/10/20 09:00 01/10/20 22:33 DC 01/10/20 08:28 Vitamin D (Vitamin D) 5,000 units DAILY PO 01/10/20 09:00 01/10/20 22:33 DC 01/10/20 08:20 Allergies Coded Allergies: amitriptyline (Verified Allergy, Severe, SWELLING, 11/29/19) Grass (Verified Allergy, Mild, ITCHY EYES,NOSE, 11/29/19) TAPE (Verified Allergy, Mild, RASH/BLISTER, 11/29/19) TREES (Verified Allergy, Mild, ITCHY EYES,NOSE, 11/29/19) adhesive (Verified Allergy, Unknown, 11/29/19) divalproex sodium (Verified Allergy, Unknown, 11/29/19) minocycline (Verified Allergy, Unknown, 11/29/19) mold (Verified Allergy, Unknown, 11/29/19) tetracycline (Verified Allergy, Unknown, 11/29/19) bupropion (Verified Adverse Reaction, Intermediate, ESOPHAGEAL SPASMS, 11/29/19) banana (Verified Adverse Reaction, Mild, VOMITING, 11/29/19) benztropine (Verified Adverse Reaction, Mild, BLURRED VISION, 11/29/19) clindamycin (Verified Adverse Reaction, Mild, HEART BURN, 11/29/19) gabapentin (Verified Adverse Reaction, Mild, extreme weakness, 11/29/19) metaxalone (Verified Adverse Reaction, Mild, itching, 11/29/19) pregabalin (Verified Adverse Reaction, Mild, EDEMA, 11/29/19) sulfamethoxazole (Verified Adverse Reaction, Mild, DIARRHEA, 11/29/19) tizanidine (Verified Adverse Reaction, Mild, ITCHING, 11/29/19) trazodone (Verified Adverse Reaction, Mild, EDEMA, 11/29/19) trimethoprim (Verified Adverse Reaction, Mild, DIARRHEA, 11/29/19) vilazodone (Verified Adverse Reaction, Mild, MOOD CHANGES, 11/29/19) cyclobenzaprine (Verified Adverse Reaction, Unknown, IRRITABILITY, 11/29/19) valproic acid (Unverified Adverse Reaction, Unknown, DOES NOT METABOLIZE, 11/29/19) MANJULA ALBRIGHT DO Feb 14, 2020 09:56
[2020-02-14 16:35] VITALS: BP 139/89
[2020-02-14] MEDS: LOPERAMIDE 2 MG CAPLET PO PRN (17:56)
[2020-02-14] MEDS: cloZAPine 25 MG TAB (S0136) PO SCH (22:54)
[2020-02-15] MEDS: LOPERAMIDE 2 MG CAPLET PO PRN ×6 (01:54→14:52)
[2020-02-15 06:30] VITALS: BP 146/74
[2020-02-15] MEDS: PILL CUTTER 1 EACH XX PRN ×3 (08:21→16:54)
[2020-02-15] MEDS: POTASSIUM CHLORIDE 10 MEQ SR TABLET PO SCH (08:22)
[2020-02-15] MEDS: MYCOPHENOLATE MOFETIL 250 MG CAP (J7517) PO SCH ×3 (08:22→21:45)
[2020-02-15] MEDS: VENLAFAXINE **XR** 75MG CAPSULE PO SCH (08:22)
[2020-02-15] MEDS: ACYCLOVIR 200 MG CAPSULE PO SCH ×2 (08:22→21:45)
[2020-02-15] MEDS: OMEPRAZOLE 20 MG CAP PO SCH (08:23)
[2020-02-15] MEDS: MULTIVITAMINS/MINERALS THERAP 1 TAB PO SCH (08:23)
[2020-02-15] MEDS: FOLIC ACID 1 MG TAB PO SCH (08:23)
[2020-02-15] MEDS: acetaZOLAMIDE 500 MG ER CAP PO SCH ×2 (08:24→21:46)
[2020-02-15] MEDS: BACLOFEN 10 MG TAB PO SCH ×3 (08:24→21:46)
[2020-02-15] MEDS: FLUoxetine 20 MG CAP PO SCH (08:24)
[2020-02-15] MEDS: OMEGA-3 1000MG CAPSULE PO SCH (08:24)
[2020-02-15] MEDS: MELOXICAM (MOBIC) 7.5 MG TAB PO SCH (08:24)
[2020-02-15] MEDS: NALTREXONE 50 MG TAB PO SCH ×2 (08:24→21:46)
[2020-02-15] MEDS: PYRIDOSTIGMINE 60 MG TAB PO SCH ×4 (08:24→21:46)
[2020-02-15] MEDS: BACITRACIN OINTMENT 30GM TUBE TOP SCH ×3 (08:25→21:00)
[2020-02-15] MEDS: TORSEMIDE 20 MG TAB PO SCH (08:25)
--- NOTE | 2020-02-15 10:47 | MHIPNPDOC ---
[facility] Progress Note Progress Note DATE OF SERVICE: 02/15/20 HISTORY: the patient still quite depressed today, she reports she is less anxious but feels more hopeless and unable to engage. She generally is been sleeping more and appears fairly depressed. She reports that the Clozaril only helps the anxiety slightly. Denies constipation VITAL SIGNS: See below. NEW TEST RESULTS: NA. CURRENT MEDICATIONS: See below. MENTAL STATUS EXAMINATION: General: [Well dressed with good hygiene] Speech: [Spontaneous and fluid] Thought processes: [Linear and logical] Thought content: Hopelessness Abstract reasoning, and computation: [Intact] Description of associations: [Intact] Description of abnormal or psychotic thoughts. Reports some SI, similar in intensity as prior, self mutilating thoughts more present Judgment: Poor Insight: Poor Orientation: [Alert and orientated 3] Recent and remote memory: [Intact] Attention span and concentration: [Intact] Fund of knowledge: [Adequate] Mood: "Fine" Affect: Dysthymic and constricted DIAGNOSES: 1. MDD, recurrent, severe without psychotic features. 2. Borderline personality disorder ASSESSMENT: will try off label Mirapex, the patient will likely need to be referred for long-term hopefully we can avert this but her progress is very slow. MANAGEMENT PLAN: Continue Clozaril to 75 Milgram's daily, no constipation at this time Continue Effexor 225 Milgram's daily Continue Prozac 40 mg daily Start Mirapex 0.125 mg QHS intention to increase to therapeutic range of 0.5 mg and above Referral to [facility] in process TIME SPENT: 15 minutes. Vital Signs Vital Signs Date Time Temp Pulse Resp B/P (MAP) Pulse Ox O2 Delivery O2 Flow Rate FiO2 02/15/20 06:30 98.5 73 16 146/74 (98) 98 Room Air Current Medications Current Medications Medications (Trade) Dose Ordered Sig/Ben Route PRN Reason Start Time Stop Time Status Last Admin Dose Admin Acetaminophen (Tylenol Tab) 650 mg Q6HP PRN PO HEADACHE or DISCOMFORT 01/10/20 20:30 02/08/20 08:41 Acetazolamide (Diamox Sequels) 500 mg BID PO 01/10/20 21:00 02/15/20 08:24 Acetazolamide (Diamox) 500 mg BID PO 01/10/20 09:00 01/10/20 22:33 DC 01/10/20 08:29 Acyclovir (Zovirax) 400 mg BID PO 01/10/20 09:00 01/10/20 22:33 DC 01/10/20 08:22 Acyclovir (Zovirax) 400 mg BID PO 01/10/20 21:00 02/15/20 08:22 Al Hydrox/Mg Hydrox/Simethicone (Mylanta) 30 ml Q4HP PRN PO HEARTBURN/INDIGESTION 01/10/20 20:30 02/03/20 17:46 Albuterol Sulfate (Proventil, Ventolin Hfa) 2 puff Q2HP PRN INH SHORTNESS OF BREATH 01/11/20 12:15 01/20/20 08:22 Bacitracin (Bacitracin Oint) apply to left arm lacerations TID TOP 01/11/20 21:00 02/14/20 22:55 Baclofen (Lioresal) 10 mg TID PO 01/16/20 16:00 02/15/20 08:24 Baclofen (Lioresal) 10 mg TIDP PRN PO MUSCLE SPASMS 01/10/20 22:45 01/16/20 11:38 DC 01/16/20 08:51 Brexpiprazole (Rexulti) 0.5 mg DAILY PO 02/01/20 09:00 02/06/20 12:33 DC 02/06/20 09:52 Brexpiprazole (Rexulti) 1 mg DAILY PO 02/07/20 09:00 02/09/20 15:59 DC 02/09/20 10:09 Clonazepam (KlonoPIN) 1 mg TID PRN PO ANXIETY/AGITATION 02/08/20 16:30 02/09/20 15:59 DC 02/09/20 09:27 Clozapine (Clozaril) 12.5 mg BID PO 02/09/20 21:00 02/10/20 13:31 DC 02/10/20 08:33 Clozapine (Clozaril) 25 mg QHS PO 02/11/20 21:00 02/13/20 11:00 DC 02/12/20 20:42 Clozapine (Clozaril) 50 mg QHS PO 02/13/20 21:00 02/14/20 13:31 DC 02/13/20 20:02 Clozapine (Clozaril) 75 mg QHS PO 02/14/20 21:00 02/14/20 22:54 Clozapine (Clozaril) 100 mg QHS PO 01/10/20 21:00 01/20/20 17:14 DC 01/19/20 20:53 Clozapine (Clozaril) 125 mg QHS PO 01/20/20 21:00 01/25/20 11:52 DC 01/24/20 20:33 Clozapine (Clozaril) 150 mg QHS PO 01/20/20 21:00 01/20/20 17:16 DC Clozapine (Clozaril) 150 mg QHS PO 01/25/20 21:00 01/31/20 13:28 DC 01/30/20 20:47 Docusate Sodium (Colace) 100 mg DAILY PO 01/11/20 09:00 02/10/20 13:12 DC 02/09/20 09:49 Fish Oil ([place]-3 (1000mg)) 1 cap DAILY PO 01/10/20 09:00 01/10/20 22:33 DC 01/10/20 08:29 Fish Oil ([place]-3 (1000mg)) 1 cap DAILY PO 01/11/20 09:00 02/15/20 08:24 Fluoxetine HCl (PROzac) 20 mg DAILY PO 01/10/20 09:00 01/10/20 22:33 DC 01/10/20 08:22 Fluoxetine HCl (PROzac) 20 mg DAILY PO 01/11/20 09:00 01/12/20 12:40 DC 01/12/20 08:33 Fluoxetine HCl (PROzac) 30 mg DAILY PO 01/13/20 09:00 01/16/20 11:35 DC 01/16/20 08:50 Fluoxetine HCl (PROzac) 40 mg DAILY PO 01/17/20 09:00 02/15/20 08:24 Folic Acid (Folic Acid) 1 mg DAILY PO 01/10/20 09:00 01/10/20 20:27 DC 01/10/20 08:23 Folic Acid (Folic Acid) 1 mg DAILY PO 01/11/20 09:00 02/15/20 08:23 Folic Acid (Folic Acid) 1 mg DAILY PO 01/11/20 09:00 Cancel Heparin Sodium (Heparin (Flush)) 500 units Q30D@09 IV 02/01/20 09:00 02/01/20 15:33 Home Med (Med Rec Complete!) ASDIRECTED XX 01/10/20 21:45 01/10/20 21:35 DC Hydroxyzine HCl (Atarax) 50 mg Q6HP PRN PO anxiety 01/19/20 17:00 01/24/20 14:12 DC 01/24/20 12:58 Hydroxyzine HCl (Atarax) 50 mg QID PO 01/10/20 13:00 01/10/20 22:33 DC 01/10/20 17:03 Hydroxyzine HCl (Atarax) 50 mg QID PO 01/11/20 13:00 01/19/20 16:52 DC 01/19/20 15:53 Hydroxyzine HCl (Atarax) 50 mg QIDP PRN PO ANXIETY 01/10/20 22:45 01/11/20 12:19 DC 01/11/20 08:37 Hydroxyzine HCl (Atarax) 100 mg BID PO 01/19/20 21:00 01/20/20 11:16 DC 01/20/20 08:25 Hydroxyzine HCl (Atarax) 100 mg BID@0900,1500 PO 01/20/20 15:00 01/31/20 13:28 DC 01/31/20 08:10 Ibuprofen (Advil) 400 mg Q6HP PRN PO PAIN 02/05/20 15:00 02/07/20 18:04 Loperamide HCl (Imodium) 2 mg ASDIRECTED PRN PO DIARRHEA 02/03/20 19:30 02/15/20 08:23 Lorazepam (Ativan) 2 mg ASDIRECTED PRN PO SEE PROTOCOL 01/10/20 20:30 01/11/20 16:44 DC Magnesium Hydroxide (Milk Of Magnesia) 30 ml DAILYPRN PRN PO CONSTIPATION 01/10/20 20:30 02/10/20 13:12 DC Meloxicam (Mobic) 15 mg DAILY PO 01/11/20 09:00 02/15/20 08:24 Mirtazapine (Remeron) 30 mg QHS PO 01/10/20 21:00 01/31/20 13:28 DC 01/30/20 20:48 Miscellaneous (Unresolved Clarification Entry) SEE LABEL COMMENTS DAILY XX 01/15/20 09:00 01/15/20 11:17 DC Multivitamins (Theragram-M) 1 tab DAILY PO 01/11/20 09:00 02/15/20 08:23 Mycophenolate Mofetil (Cellcept) 500 mg TID PO 01/10/20 09:00 01/10/20 22:33 DC 01/10/20 17:04 Mycophenolate Mofetil (Cellcept) 1,000 mg TID PO 01/10/20 21:00 02/15/20 08:22 Naltrexone HCl (Revia) 50 mg BID PO 01/10/20 09:00 01/10/20 22:33 DC 01/10/20 08:28 Naltrexone HCl (Revia) 50 mg BID PO 01/10/20 21:00 02/15/20 08:24 Olanzapine (ZyPREXA ZYDIS) 5 mg Q4HP PRN PO ANXIETY/AGITATION 01/11/20 16:45 01/19/20 16:55 DC 01/19/20 15:56 Omeprazole (PriLOSEC) 20 mg DAILY PO 01/10/20 09:00 01/10/20 22:33 DC 01/10/20 08:21 Omeprazole (PriLOSEC) 20 mg DAILY PO 01/11/20 09:00 02/15/20 08:23 Oxazepam (Serax) 10 mg BIDP PRN PO ANXIETY 02/03/20 12:00 02/14/20 08:11 Oxazepam (Serax) 10 mg DAILYPRN PRN PO ANXIETY 01/31/20 13:30 02/03/20 11:55 DC 02/03/20 06:44 Potassium Chloride (Micro-K Extencaps) 20 meq DAILY PO 01/10/20 09:00 01/10/20 22:33 DC 01/10/20 08:22 Potassium Chloride (Micro-K Extencaps) 20 meq DAILY PO 01/11/20 09:00 02/15/20 08:22 Pyridostigmine [place] (Mestinon) 90 mg QID PO 01/10/20 09:00 01/10/20 22:33 DC 01/10/20 17:02 Pyridostigmine [place] (Mestinon) 90 mg QID PO 01/10/20 21:00 02/15/20 08:24 Ramelteon (Rozerem) 8 mg QHS PRN PO INSOMNIA 01/31/20 13:30 02/13/20 20:02 Senna (Senokot) 2 tab QHSP PRN PO CONSTIPATION 01/10/20 22:45 02/10/20 13:12 DC Sodium Chloride (Saline Lock Flush) 10 ml Q30D IV 02/01/20 09:00 02/01/20 15:33 Tamoxifen Citrate (Nolvadex) 20 mg DAILY PO 01/10/20 09:00 01/10/20 22:33 DC 01/10/20 08:31 Tamoxifen Citrate (Nolvadex) 20 mg DAILY PO 01/11/20 09:00 01/26/20 16:25 DC 01/26/20 08:08 Thiamine HCl (Thiamine HCl) 100 mg BID PO 01/10/20 21:00 01/13/20 20:59 DC 01/13/20 08:03 Torsemide (Demadex) 20 mg DAILY PO 01/10/20 09:00 01/10/20 22:33 DC 01/10/20 08:22 Torsemide (Demadex) 20 mg DAILY PO 01/11/20 09:00 01/19/20 16:37 DC 01/19/20 08:05 Torsemide (Demadex) 40 mg DAILY PO 01/20/20 09:00 02/10/20 13:01 DC 02/10/20 08:33 Torsemide (Demadex) 40 mg DAILY PO 02/12/20 09:00 Trazodone HCl (Desyrel) 50 mg QHSP PRN PO INSOMNIA 01/10/20 20:30 01/31/20 13:29 DC 01/30/20 20:47 Venlafaxine HCl (Effexor Xr) 225 mg DAILY PO 01/11/20 09:00 02/15/20 08:22 Venlafaxine HCl (Effexor) 225 mg DAILY PO 01/10/20 09:00 01/10/20 22:33 DC 01/10/20 08:28 Vitamin D (Vitamin D) 5,000 units DAILY PO 01/10/20 09:00 01/10/20 22:33 DC 01/10/20 08:20 Allergies Coded Allergies: amitriptyline (Verified Allergy, Severe, SWELLING, 11/29/19) Grass (Verified Allergy, Mild, ITCHY EYES,NOSE, 11/29/19) TAPE (Verified Allergy, Mild, RASH/BLISTER, 11/29/19) TREES (Verified Allergy, Mild, ITCHY EYES,NOSE, 11/29/19) adhesive (Verified Allergy, Unknown, 11/29/19) divalproex sodium (Verified Allergy, Unknown, 11/29/19) minocycline (Verified Allergy, Unknown, 11/29/19) mold (Verified Allergy, Unknown, 11/29/19) tetracycline (Verified Allergy, Unknown, 11/29/19) bupropion (Verified Adverse Reaction, Intermediate, ESOPHAGEAL SPASMS, 11/29/19) banana (Verified Adverse Reaction, Mild, VOMITING, 11/29/19) benztropine (Verified Adverse Reaction, Mild, BLURRED VISION, 11/29/19) clindamycin (Verified Adverse Reaction, Mild, HEART BURN, 11/29/19) gabapentin (Verified Adverse Reaction, Mild, extreme weakness, 11/29/19) metaxalone (Verified Adverse Reaction, Mild, itching, 11/29/19) pregabalin (Verified Adverse Reaction, Mild, EDEMA, 11/29/19) sulfamethoxazole (Verified Adverse Reaction, Mild, DIARRHEA, 11/29/19) tizanidine (Verified Adverse Reaction, Mild, ITCHING, 11/29/19) trazodone (Verified Adverse Reaction, Mild, EDEMA, 11/29/19) trimethoprim (Verified Adverse Reaction, Mild, DIARRHEA, 11/29/19) vilazodone (Verified Adverse Reaction, Mild, MOOD CHANGES, 11/29/19) cyclobenzaprine (Verified Adverse Reaction, Unknown, IRRITABILITY, 11/29/19) valproic acid (Unverified Adverse Reaction, Unknown, DOES NOT METABOLIZE, 11/29/19) MANJULA ALBRIGHT DO Feb 15, 2020 10:47
[2020-02-15] MEDS: diphenhydrAMINE 25MG CAP PO SCH ×3 (14:27→21:46)
[2020-02-15 16:00] VITALS: BP 135/75
[2020-02-15] MEDS: cloZAPine 25 MG TAB (S0136) PO SCH (21:44)
[2020-02-15] MEDS: RAMELTEON 8 MG TAB (ROZEREM) PO PRN (21:45)
[2020-02-15] MEDS: PRAMIPEXOLE (MIRAPEX) 0.125 MG TAB PO SCH (21:46)
[2020-02-16] MEDS: diphenhydrAMINE 25MG CAP PO SCH ×6 (01:18→22:12)
[2020-02-16 06:29] VITALS: BP 133/79
[2020-02-16] MEDS: VENLAFAXINE **XR** 75MG CAPSULE PO SCH (08:43)
[2020-02-16] MEDS: MELOXICAM (MOBIC) 7.5 MG TAB PO SCH (08:43)
[2020-02-16] MEDS: FOLIC ACID 1 MG TAB PO SCH (08:44)
[2020-02-16] MEDS: TORSEMIDE 20 MG TAB PO SCH (08:44)
[2020-02-16] MEDS: PYRIDOSTIGMINE 60 MG TAB PO SCH ×4 (08:44→22:11)
[2020-02-16] MEDS: MULTIVITAMINS/MINERALS THERAP 1 TAB PO SCH (08:44)
[2020-02-16] MEDS: ACYCLOVIR 200 MG CAPSULE PO SCH ×2 (08:45→22:12)
[2020-02-16] MEDS: NALTREXONE 50 MG TAB PO SCH ×2 (08:45→22:12)
[2020-02-16] MEDS: OMEPRAZOLE 20 MG CAP PO SCH (08:45)
[2020-02-16] MEDS: FLUoxetine 20 MG CAP PO SCH (08:45)
[2020-02-16] MEDS: acetaZOLAMIDE 500 MG ER CAP PO SCH ×2 (08:45→22:11)
[2020-02-16] MEDS: BACLOFEN 10 MG TAB PO SCH ×3 (08:45→22:11)
[2020-02-16] MEDS: POTASSIUM CHLORIDE 10 MEQ SR TABLET PO SCH (08:45)
[2020-02-16] MEDS: OMEGA-3 1000MG CAPSULE PO SCH (08:45)
[2020-02-16] MEDS: LOPERAMIDE 2 MG CAPLET PO PRN ×2 (08:49→10:23)
[2020-02-16] MEDS: BACITRACIN OINTMENT 30GM TUBE TOP SCH ×3 (09:00→21:00)
[2020-02-16] MEDS: MYCOPHENOLATE MOFETIL 250 MG CAP (J7517) PO SCH ×3 (09:00→22:12)
[2020-02-16 11:15] VITALS: BP 133/79
[2020-02-16] MEDS: MAALOX 30 ML SUSP *UDC PO PRN (16:48)
[2020-02-16 17:48] VITALS: BP 128/84
[2020-02-16] MEDS: cloZAPine 25 MG TAB (S0136) PO SCH (22:11)
[2020-02-16] MEDS: PRAMIPEXOLE (MIRAPEX) 0.125 MG TAB PO SCH (22:24)
[2020-02-17] MEDS: diphenhydrAMINE 25MG CAP PO SCH ×6 (01:00→22:07)
[2020-02-17 06:52] VITALS: BP 117/66
[2020-02-17] MEDS: BACLOFEN 10 MG TAB PO SCH ×3 (08:24→22:07)
[2020-02-17] MEDS: ACYCLOVIR 200 MG CAPSULE PO SCH ×2 (08:24→22:07)
[2020-02-17] MEDS: OMEGA-3 1000MG CAPSULE PO SCH ×2 (08:24→22:06)
[2020-02-17] MEDS: FLUoxetine 20 MG CAP PO SCH (08:25)
[2020-02-17] MEDS: PYRIDOSTIGMINE 60 MG TAB PO SCH ×4 (08:25→22:08)
[2020-02-17] MEDS: FOLIC ACID 1 MG TAB PO SCH (08:25)
[2020-02-17] MEDS: acetaZOLAMIDE 500 MG ER CAP PO SCH ×2 (08:25→22:07)
[2020-02-17] MEDS: MYCOPHENOLATE MOFETIL 250 MG CAP (J7517) PO SCH ×3 (08:26→22:06)
[2020-02-17] MEDS: NALTREXONE 50 MG TAB PO SCH ×2 (08:28→22:07)
[2020-02-17] MEDS: MELOXICAM (MOBIC) 7.5 MG TAB PO SCH (08:28)
[2020-02-17] MEDS: PILL CUTTER 1 EACH XX PRN ×3 (08:28→16:32)
[2020-02-17] MEDS: OMEPRAZOLE 20 MG CAP PO SCH (08:29)
[2020-02-17] MEDS: MULTIVITAMINS/MINERALS THERAP 1 TAB PO SCH (08:29)
[2020-02-17] MEDS: VENLAFAXINE **XR** 75MG CAPSULE PO SCH (08:29)
[2020-02-17] MEDS: POTASSIUM CHLORIDE 10 MEQ SR TABLET PO SCH (08:29)
[2020-02-17] MEDS: BACITRACIN OINTMENT 30GM TUBE TOP SCH ×3 (08:30→21:00)
[2020-02-17] MEDS: TORSEMIDE 20 MG TAB PO SCH (09:00)
--- NOTE | 2020-02-17 09:53 | MHIPNPDOC ---
[facility] Progress Note Progress Note DATE OF SERVICE: 02/17/20 HISTORY: The patient is met with today, she reports that she still dysthymic and depressed, she reports that she hasn't had any appreciable changes in general appears quite negative and upset. Staff report that she does laugh at times and is somewhat engaged although she does have some difficulty with splitting. The patient generally still reports being fairly depressed. She denies any constipation at this time. Reports hasn't had any changes from the Mirapex. VITAL SIGNS: See below. NEW TEST RESULTS: NA. CURRENT MEDICATIONS: See below. MENTAL STATUS EXAMINATION: General: [Well dressed with good hygiene] Speech: [Spontaneous and fluid] Thought processes: [Linear and logical] Thought content: Hopelessness Abstract reasoning, and computation: [Intact] Description of associations: [Intact] Description of abnormal or psychotic thoughts. Reports some SI, similar in intensity as prior, self mutilating thoughts more present Judgment: Poor Insight: Poor Orientation: [Alert and orientated 3] Recent and remote memory: [Intact] Attention span and concentration: [Intact] Fund of knowledge: [Adequate] Mood: "Fine" Affect: Dysthymic and constricted DIAGNOSES: 1. MDD, recurrent, severe without psychotic features. 2. Borderline personality disorder ASSESSMENT: We'll continue to titrate Mirapex, and monitor, some staff members report that she complains of lip smacking, however this hasn't been observed during my interviews and the patient does have a lot of somatizations will monitor closely. MANAGEMENT PLAN: Increase Clozaril to 100 mg daily Continue Effexor 225 Milgram's daily Continue Prozac 40 mg daily Increase Mirapex to 0.25 mg daily Patient wishes to have her tamoxifen 20 mg daily restarted, as she reports her is no longer pressuring her as her depression still remains, will restart previous dose. Referral to [facility] in process TIME SPENT: 15 minutes. Vital Signs Vital Signs Date Time Temp Pulse Resp B/P (MAP) Pulse Ox O2 Delivery O2 Flow Rate FiO2 02/17/20 06:52 99.2 78 16 117/66 (83) 95 Room Air Current Medications Current Medications Medications (Trade) Dose Ordered Sig/Ben Route PRN Reason Start Time Stop Time Status Last Admin Dose Admin Acetaminophen (Tylenol Tab) 650 mg Q6HP PRN PO HEADACHE or DISCOMFORT 01/10/20 20:30 02/08/20 08:41 Acetazolamide (Diamox Sequels) 500 mg BID PO 01/10/20 21:00 02/17/20 08:25 Acetazolamide (Diamox) 500 mg BID PO 01/10/20 09:00 01/10/20 22:33 DC 01/10/20 08:29 Acyclovir (Zovirax) 400 mg BID PO 01/10/20 09:00 01/10/20 22:33 DC 01/10/20 08:22 Acyclovir (Zovirax) 400 mg BID PO 01/10/20 21:00 02/17/20 08:24 Al Hydrox/Mg Hydrox/Simethicone (Mylanta) 30 ml Q4HP PRN PO HEARTBURN/INDIGESTION 01/10/20 20:30 02/16/20 16:48 Albuterol Sulfate (Proventil, Ventolin Hfa) 2 puff Q2HP PRN INH SHORTNESS OF BREATH 01/11/20 12:15 01/20/20 08:22 Bacitracin (Bacitracin Oint) apply to left arm lacerations TID TOP 01/11/20 21:00 02/16/20 09:00 Baclofen (Lioresal) 10 mg TID PO 01/16/20 16:00 02/17/20 08:24 Baclofen (Lioresal) 10 mg TIDP PRN PO MUSCLE SPASMS 01/10/20 22:45 01/16/20 11:38 DC 01/16/20 08:51 Brexpiprazole (Rexulti) 0.5 mg DAILY PO 02/01/20 09:00 02/06/20 12:33 DC 02/06/20 09:52 Brexpiprazole (Rexulti) 1 mg DAILY PO 02/07/20 09:00 02/09/20 15:59 DC 02/09/20 10:09 Clonazepam (KlonoPIN) 1 mg TID PRN PO ANXIETY/AGITATION 02/08/20 16:30 02/09/20 15:59 DC 02/09/20 09:27 Clozapine (Clozaril) 12.5 mg BID PO 02/09/20 21:00 02/10/20 13:31 DC 02/10/20 08:33 Clozapine (Clozaril) 25 mg QHS PO 02/11/20 21:00 02/13/20 11:00 DC 02/12/20 20:42 Clozapine (Clozaril) 50 mg QHS PO 02/13/20 21:00 02/14/20 13:31 DC 02/13/20 20:02 Clozapine (Clozaril) 75 mg QHS PO 02/14/20 21:00 02/16/20 22:11 Clozapine (Clozaril) 100 mg QHS PO 01/10/20 21:00 01/20/20 17:14 DC 01/19/20 20:53 Clozapine (Clozaril) 125 mg QHS PO 01/20/20 21:00 01/25/20 11:52 DC 01/24/20 20:33 Clozapine (Clozaril) 150 mg QHS PO 01/20/20 21:00 01/20/20 17:16 DC Clozapine (Clozaril) 150 mg QHS PO 01/25/20 21:00 01/31/20 13:28 DC 01/30/20 20:47 Diphenhydramine HCl (Benadryl) 25 mg Q4H PO 02/15/20 13:00 02/17/20 06:07 Docusate Sodium (Colace) 100 mg DAILY PO 01/11/20 09:00 02/10/20 13:12 DC 02/09/20 09:49 Fish Oil ([place]-3 (1000mg)) 1 cap DAILY PO 01/10/20 09:00 01/10/20 22:33 DC 01/10/20 08:29 Fish Oil ([place]-3 (1000mg)) 1 cap DAILY PO 01/11/20 09:00 02/17/20 08:24 Fluoxetine HCl (PROzac) 20 mg DAILY PO 01/10/20 09:00 01/10/20 22:33 DC 01/10/20 08:22 Fluoxetine HCl (PROzac) 20 mg DAILY PO 01/11/20 09:00 01/12/20 12:40 DC 01/12/20 08:33 Fluoxetine HCl (PROzac) 30 mg DAILY PO 01/13/20 09:00 01/16/20 11:35 DC 01/16/20 08:50 Fluoxetine HCl (PROzac) 40 mg DAILY PO 01/17/20 09:00 02/17/20 08:25 Folic Acid (Folic Acid) 1 mg DAILY PO 01/10/20 09:00 01/10/20 20:27 DC 01/10/20 08:23 Folic Acid (Folic Acid) 1 mg DAILY PO 01/11/20 09:00 02/17/20 08:25 Folic Acid (Folic Acid) 1 mg DAILY PO 01/11/20 09:00 Cancel Heparin Sodium (Heparin (Flush)) 500 units Q30D@09 IV 02/01/20 09:00 02/01/20 15:33 Home Med (Med Rec Complete!) ASDIRECTED XX 01/10/20 21:45 01/10/20 21:35 DC Hydroxyzine HCl (Atarax) 50 mg Q6HP PRN PO anxiety 01/19/20 17:00 01/24/20 14:12 DC 01/24/20 12:58 Hydroxyzine HCl (Atarax) 50 mg QID PO 01/10/20 13:00 01/10/20 22:33 DC 01/10/20 17:03 Hydroxyzine HCl (Atarax) 50 mg QID PO 01/11/20 13:00 01/19/20 16:52 DC 01/19/20 15:53 Hydroxyzine HCl (Atarax) 50 mg QIDP PRN PO ANXIETY 01/10/20 22:45 01/11/20 12:19 DC 01/11/20 08:37 Hydroxyzine HCl (Atarax) 100 mg BID PO 01/19/20 21:00 01/20/20 11:16 DC 01/20/20 08:25 Hydroxyzine HCl (Atarax) 100 mg BID@0900,1500 PO 01/20/20 15:00 01/31/20 13:28 DC 01/31/20 08:10 Ibuprofen (Advil) 400 mg Q6HP PRN PO PAIN 02/05/20 15:00 02/07/20 18:04 Loperamide HCl (Imodium) 2 mg ASDIRECTED PRN PO DIARRHEA 02/03/20 19:30 02/16/20 10:23 Lorazepam (Ativan) 2 mg ASDIRECTED PRN PO SEE PROTOCOL 01/10/20 20:30 01/11/20 16:44 DC Magnesium Hydroxide (Milk Of Magnesia) 30 ml DAILYPRN PRN PO CONSTIPATION 01/10/20 20:30 02/10/20 13:12 DC Meloxicam (Mobic) 15 mg DAILY PO 01/11/20 09:00 02/17/20 08:28 Mirtazapine (Remeron) 30 mg QHS PO 01/10/20 21:00 01/31/20 13:28 DC 01/30/20 20:48 Miscellaneous (Unresolved Clarification Entry) SEE LABEL COMMENTS DAILY XX 01/15/20 09:00 01/15/20 11:17 DC Multivitamins (Theragram-M) 1 tab DAILY PO 01/11/20 09:00 02/17/20 08:29 Mycophenolate Mofetil (Cellcept) 500 mg TID PO 01/10/20 09:00 01/10/20 22:33 DC 01/10/20 17:04 Mycophenolate Mofetil (Cellcept) 1,000 mg TID PO 01/10/20 21:00 02/17/20 08:26 Naltrexone HCl (Revia) 50 mg BID PO 01/10/20 09:00 01/10/20 22:33 DC 01/10/20 08:28 Naltrexone HCl (Revia) 50 mg BID PO 01/10/20 21:00 02/17/20 08:28 Olanzapine (ZyPREXA ZYDIS) 5 mg Q4HP PRN PO ANXIETY/AGITATION 01/11/20 16:45 01/19/20 16:55 DC 01/19/20 15:56 Omeprazole (PriLOSEC) 20 mg DAILY PO 01/10/20 09:00 01/10/20 22:33 DC 01/10/20 08:21 Omeprazole (PriLOSEC) 20 mg DAILY PO 01/11/20 09:00 02/17/20 08:29 Oxazepam (Serax) 10 mg BIDP PRN PO ANXIETY 02/03/20 12:00 02/14/20 08:11 Oxazepam (Serax) 10 mg DAILYPRN PRN PO ANXIETY 01/31/20 13:30 02/03/20 11:55 DC 02/03/20 06:44 Potassium Chloride (Micro-K Extencaps) 20 meq DAILY PO 01/10/20 09:00 01/10/20 22:33 DC 01/10/20 08:22 Potassium Chloride (Micro-K Extencaps) 20 meq DAILY PO 01/11/20 09:00 02/17/20 08:29 Pramipexole Dihydrochloride (Mirapex) 0.125 mg QHS PO 02/15/20 21:00 02/16/20 22:24 Pyridostigmine [place] (Mestinon) 90 mg QID PO 01/10/20 09:00 01/10/20 22:33 DC 01/10/20 17:02 Pyridostigmine [place] (Mestinon) 90 mg QID PO 01/10/20 21:00 02/17/20 08:25 Ramelteon (Rozerem) 8 mg QHS PRN PO INSOMNIA 01/31/20 13:30 02/15/20 21:45 Senna (Senokot) 2 tab QHSP PRN PO CONSTIPATION 01/10/20 22:45 02/10/20 13:12 DC Sodium Chloride (Saline Lock Flush) 10 ml Q30D IV 02/01/20 09:00 02/01/20 15:33 Tamoxifen Citrate (Nolvadex) 20 mg DAILY PO 01/10/20 09:00 01/10/20 22:33 DC 01/10/20 08:31 Tamoxifen Citrate (Nolvadex) 20 mg DAILY PO 01/11/20 09:00 01/26/20 16:25 DC 01/26/20 08:08 Thiamine HCl (Thiamine HCl) 100 mg BID PO 01/10/20 21:00 01/13/20 20:59 DC 01/13/20 08:03 Torsemide (Demadex) 20 mg DAILY PO 01/10/20 09:00 01/10/20 22:33 DC 01/10/20 08:22 Torsemide (Demadex) 20 mg DAILY PO 01/11/20 09:00 01/19/20 16:37 DC 01/19/20 08:05 Torsemide (Demadex) 40 mg DAILY PO 01/20/20 09:00 02/10/20 13:01 DC 02/10/20 08:33 Torsemide (Demadex) 40 mg DAILY PO 02/12/20 09:00 02/16/20 08:44 Trazodone HCl (Desyrel) 50 mg QHSP PRN PO INSOMNIA 01/10/20 20:30 01/31/20 13:29 DC 01/30/20 20:47 Venlafaxine HCl (Effexor Xr) 225 mg DAILY PO 01/11/20 09:00 02/17/20 08:29 Venlafaxine HCl (Effexor) 225 mg DAILY PO 01/10/20 09:00 01/10/20 22:33 DC 01/10/20 08:28 Vitamin D (Vitamin D) 5,000 units DAILY PO 01/10/20 09:00 01/10/20 22:33 DC 01/10/20 08:20 Allergies Coded Allergies: amitriptyline (Verified Allergy, Severe, SWELLING, 11/29/19) Grass (Verified Allergy, Mild, ITCHY EYES,NOSE, 11/29/19) TAPE (Verified Allergy, Mild, RASH/BLISTER, 11/29/19) TREES (Verified Allergy, Mild, ITCHY EYES,NOSE, 11/29/19) adhesive (Verified Allergy, Unknown, 11/29/19) divalproex sodium (Verified Allergy, Unknown, 11/29/19) minocycline (Verified Allergy, Unknown, 11/29/19) mold (Verified Allergy, Unknown, 11/29/19) tetracycline (Verified Allergy, Unknown, 11/29/19) bupropion (Verified Adverse Reaction, Intermediate, ESOPHAGEAL SPASMS, 11/29/19) banana (Verified Adverse Reaction, Mild, VOMITING, 11/29/19) benztropine (Verified Adverse Reaction, Mild, BLURRED VISION, 11/29/19) clindamycin (Verified Adverse Reaction, Mild, HEART BURN, 11/29/19) gabapentin (Verified Adverse Reaction, Mild, extreme weakness, 11/29/19) metaxalone (Verified Adverse Reaction, Mild, itching, 11/29/19) pregabalin (Verified Adverse Reaction, Mild, EDEMA, 11/29/19) sulfamethoxazole (Verified Adverse Reaction, Mild, DIARRHEA, 11/29/19) tizanidine (Verified Adverse Reaction, Mild, ITCHING, 11/29/19) trazodone (Verified Adverse Reaction, Mild, EDEMA, 11/29/19) trimethoprim (Verified Adverse Reaction, Mild, DIARRHEA, 11/29/19) vilazodone (Verified Adverse Reaction, Mild, MOOD CHANGES, 11/29/19) cyclobenzaprine (Verified Adverse Reaction, Unknown, IRRITABILITY, 11/29/19) valproic acid (Unverified Adverse Reaction, Unknown, DOES NOT METABOLIZE, 11/29/19) MANJULA ALBRIGHT DO Feb 17, 2020 09:53
[2020-02-17] MEDS: LOPERAMIDE 2 MG CAPLET PO PRN (10:46)
[2020-02-17 14:04] LABS: ALBUMIN 3.8 GM/DL (3.2-5.2); BILIRUBIN,TOTAL 0.2 MG/DL (0.2-1.0); CALCIUM LEVEL 9.1 MG/DL (8.5-10.1); CREATININE FOR GFR 1.31 MG/DL (0.55-1.30); GLOMERULAR FILTRATION RATE 47.9 (>58); POTASSIUM SERUM 3.6 MEQ/L (3.5-5.1); TOTAL PROTEIN 6.7 GM/DL (6.4-8.2)
[2020-02-17 16:00] VITALS: BP 119/95
[2020-02-17] MEDS: PRAMIPEXOLE 0.25 MG TAB PO SCH (21:00)
[2020-02-17] MEDS: MAALOX 30 ML SUSP *UDC PO PRN (22:05)
[2020-02-17] MEDS: cloZAPine 100 MG TAB (S0136) PO SCH (22:07)
[2020-02-17] MEDS: RAMELTEON 8 MG TAB (ROZEREM) PO PRN (23:05)
[2020-02-18] MEDS: diphenhydrAMINE 25MG CAP PO SCH ×6 (00:37→21:00)
[2020-02-18 06:48] VITALS: BP 136/97
[2020-02-18] MEDS: TAMOXIFEN CITRATE 10 MG TAB PO SCH (08:59)
[2020-02-18] MEDS: OMEPRAZOLE 20 MG CAP PO SCH (09:00)
[2020-02-18] MEDS: VENLAFAXINE **XR** 75MG CAPSULE PO SCH (09:00)
[2020-02-18] MEDS: BACITRACIN OINTMENT 30GM TUBE TOP SCH ×3 (09:00→21:00)
[2020-02-18] MEDS: TORSEMIDE 20 MG TAB PO SCH (09:00)
[2020-02-18] MEDS: MELOXICAM (MOBIC) 7.5 MG TAB PO SCH (09:00)
[2020-02-18] MEDS: BACLOFEN 10 MG TAB PO SCH ×3 (09:00→21:28)
[2020-02-18] MEDS: NALTREXONE 50 MG TAB PO SCH ×2 (09:00→21:26)
[2020-02-18] MEDS: FOLIC ACID 1 MG TAB PO SCH (09:00)
[2020-02-18] MEDS: PILL CUTTER 1 EACH XX PRN ×4 (09:01→21:36)
[2020-02-18] MEDS: MYCOPHENOLATE MOFETIL 250 MG CAP (J7517) PO SCH ×3 (09:01→21:28)
[2020-02-18] MEDS: FLUoxetine 20 MG CAP PO SCH (09:01)
[2020-02-18] MEDS: POTASSIUM CHLORIDE 10 MEQ SR TABLET PO SCH (09:01)
[2020-02-18] MEDS: OMEGA-3 1000MG CAPSULE PO SCH (09:02)
[2020-02-18] MEDS: acetaZOLAMIDE 500 MG ER CAP PO SCH ×2 (09:02→21:28)
[2020-02-18] MEDS: ACYCLOVIR 200 MG CAPSULE PO SCH ×2 (09:02→21:27)
[2020-02-18] MEDS: MULTIVITAMINS/MINERALS THERAP 1 TAB PO SCH (09:02)
[2020-02-18] MEDS: PYRIDOSTIGMINE 60 MG TAB PO SCH ×4 (09:02→21:27)
[2020-02-18 16:14] VITALS: BP 112/98
[2020-02-18] MEDS: RAMELTEON 8 MG TAB (ROZEREM) PO PRN (21:26)
[2020-02-18] MEDS: cloZAPine 100 MG TAB (S0136) PO SCH (21:27)
[2020-02-18] MEDS: PRAMIPEXOLE 0.25 MG TAB PO SCH (21:30)
[2020-02-19] MEDS: diphenhydrAMINE 25MG CAP PO SCH ×6 (00:44→19:55)
[2020-02-19 06:14] VITALS: BP 135/70
[2020-02-19] MEDS: BACITRACIN OINTMENT 30GM TUBE TOP SCH ×3 (08:34→21:12)
[2020-02-19] MEDS: TAMOXIFEN CITRATE 10 MG TAB PO SCH (08:47)
[2020-02-19] MEDS: VENLAFAXINE **XR** 75MG CAPSULE PO SCH (08:48)
[2020-02-19] MEDS: MYCOPHENOLATE MOFETIL 250 MG CAP (J7517) PO SCH ×3 (08:48→19:54)
[2020-02-19] MEDS: MELOXICAM (MOBIC) 7.5 MG TAB PO SCH (08:48)
[2020-02-19] MEDS: acetaZOLAMIDE 500 MG ER CAP PO SCH ×2 (08:48→19:53)
[2020-02-19] MEDS: ACYCLOVIR 200 MG CAPSULE PO SCH ×2 (08:49→19:55)
[2020-02-19] MEDS: NALTREXONE 50 MG TAB PO SCH ×2 (08:49→19:54)
[2020-02-19] MEDS: BACLOFEN 10 MG TAB PO SCH ×3 (08:49→19:55)
[2020-02-19] MEDS: FLUoxetine 20 MG CAP PO SCH (08:49)
[2020-02-19] MEDS: OMEPRAZOLE 20 MG CAP PO SCH (08:49)
[2020-02-19] MEDS: MULTIVITAMINS/MINERALS THERAP 1 TAB PO SCH (08:49)
[2020-02-19] MEDS: OMEGA-3 1000MG CAPSULE PO SCH (08:49)
[2020-02-19] MEDS: PYRIDOSTIGMINE 60 MG TAB PO SCH ×4 (08:50→19:56)
[2020-02-19] MEDS: FOLIC ACID 1 MG TAB PO SCH (08:50)
[2020-02-19] MEDS: POTASSIUM CHLORIDE 10 MEQ SR TABLET PO SCH (08:50)
[2020-02-19] MEDS: TORSEMIDE 20 MG TAB PO SCH (09:00)
[2020-02-19] MEDS: PILL CUTTER 1 EACH XX PRN ×2 (12:48→16:41)
[2020-02-19] MEDS: cloZAPine 100 MG TAB (S0136) PO SCH (19:55)
[2020-02-19] MEDS: RAMELTEON 8 MG TAB (ROZEREM) PO PRN (20:00)
[2020-02-19] MEDS: PRAMIPEXOLE 0.25 MG TAB PO SCH (20:00)
[2020-02-19] MEDS: OXAZEPAM 10 MG CAP PO PRN (20:39)
[2020-02-20] MEDS: diphenhydrAMINE 25MG CAP PO SCH ×6 (00:40→21:49)
[2020-02-20 06:29] VITALS: BP 143/84
[2020-02-20] MEDS: FOLIC ACID 1 MG TAB PO SCH (08:56)
[2020-02-20] MEDS: acetaZOLAMIDE 500 MG ER CAP PO SCH ×2 (08:56→21:48)
[2020-02-20] MEDS: ACYCLOVIR 200 MG CAPSULE PO SCH ×2 (08:56→21:49)
[2020-02-20] MEDS: VENLAFAXINE **XR** 75MG CAPSULE PO SCH (08:56)
[2020-02-20] MEDS: MELOXICAM (MOBIC) 7.5 MG TAB PO SCH (08:57)
[2020-02-20] MEDS: NALTREXONE 50 MG TAB PO SCH ×2 (08:57→21:46)
[2020-02-20] MEDS: BACLOFEN 10 MG TAB PO SCH ×3 (08:57→21:47)
[2020-02-20] MEDS: FLUoxetine 20 MG CAP PO SCH (08:57)
[2020-02-20] MEDS: OMEPRAZOLE 20 MG CAP PO SCH (08:57)
[2020-02-20] MEDS: MULTIVITAMINS/MINERALS THERAP 1 TAB PO SCH (08:58)
[2020-02-20] MEDS: POTASSIUM CHLORIDE 10 MEQ SR TABLET PO SCH (08:58)
[2020-02-20] MEDS: TORSEMIDE 20 MG TAB PO SCH (09:00)
[2020-02-20] MEDS: TAMOXIFEN CITRATE 10 MG TAB PO SCH (09:00)
[2020-02-20] MEDS: BACITRACIN OINTMENT 30GM TUBE TOP SCH ×3 (09:00→21:51)
[2020-02-20] MEDS: PYRIDOSTIGMINE 60 MG TAB PO SCH ×4 (09:02→21:47)
--- NOTE | 2020-02-20 10:31 | MHIPNPDOC ---
[facility] Progress Note Progress Note DATE OF SERVICE: 02/20/20 HISTORY: the patient is met with today, she had an episode of significant cutting over the weekend, this had been discovered during a routine vitals check when she had declined to show her arm, nursing staff had searched her room finding a variety of small ingenious cutting objects that she has been collecting. She was placed back on a one-to-one immediately, when I met with her, she reported that she was still feeling depressed and that herself mewling thoughts have been present. She has little to say appears generally unengaged, she generally feels the staff don't help her and there's no hope for her to improve. VITAL SIGNS: See below. NEW TEST RESULTS: NA. CURRENT MEDICATIONS: See below. MENTAL STATUS EXAMINATION: General: [Well dressed with good hygiene] Speech: [Spontaneous and fluid] Thought processes: [Linear and logical] Thought content: Hopelessness Abstract reasoning, and computation: [Intact] Description of associations: [Intact] Description of abnormal or psychotic thoughts. Reports some SI, similar in intensity as prior, self mutilating thoughts more present Judgment: Poor Insight: Poor Orientation: [Alert and orientated 3] Recent and remote memory: [Intact] Attention span and concentration: [Intact] Fund of knowledge: [Adequate] Mood: "Fine" Affect: Dysthymic and constricted DIAGNOSES: 1. MDD, recurrent, severe without psychotic features. 2. Borderline personality disorder ASSESSMENT: will continue to increase Mirapex into the therapeutic range, patient will be best met with outside of office space and continued on a very close one-to-one, with even some group restriction as she appears to collect objects to self-harm with on the unit. Her Clozaril will be continued, no signs of any tart I've has had been reported over the weekend, likely her or line personality disorder is playing a component and some difficulties with her behavior and thought process. Long-term can be an option. However, in a lost am not optimistic about her chances of being accepted given the current climate of [facility] unit. MANAGEMENT PLAN: Continue Clozaril to 100 mg daily Continue Effexor 225 Milgram's daily Continue Prozac 40 mg daily Increase Mirapex to 0.5 mg daily Referral to [facility] in process, will likely not pursue if patient is not interested as it would be quite difficult to improve, will still try to maximize Mirapex or even consider MAOI agent TIME SPENT: 15 minutes. Vital Signs Vital Signs Date Time Temp Pulse Resp B/P (MAP) Pulse Ox O2 Delivery O2 Flow Rate FiO2 02/20/20 06:29 98.2 80 16 143/84 (103) 98 Room Air Current Medications Current Medications Medications (Trade) Dose Ordered Sig/Ben Route PRN Reason Start Time Stop Time Status Last Admin Dose Admin Acetaminophen (Tylenol Tab) 650 mg Q6HP PRN PO HEADACHE or DISCOMFORT 01/10/20 20:30 02/08/20 08:41 Acetazolamide (Diamox Sequels) 500 mg BID PO 01/10/20 21:00 02/20/20 08:56 Acetazolamide (Diamox) 500 mg BID PO 01/10/20 09:00 01/10/20 22:33 DC 01/10/20 08:29 Acyclovir (Zovirax) 400 mg BID PO 01/10/20 09:00 01/10/20 22:33 DC 01/10/20 08:22 Acyclovir (Zovirax) 400 mg BID PO 01/10/20 21:00 02/20/20 08:56 Al Hydrox/Mg Hydrox/Simethicone (Mylanta) 30 ml Q4HP PRN PO HEARTBURN/INDIGESTION 01/10/20 20:30 02/17/20 22:05 Albuterol Sulfate (Proventil, Ventolin Hfa) 2 puff Q2HP PRN INH SHORTNESS OF BREATH 01/11/20 12:15 01/20/20 08:22 Bacitracin (Bacitracin Oint) apply to left arm lacerations TID TOP 01/11/20 21:00 02/19/20 21:12 Baclofen (Lioresal) 10 mg TID PO 01/16/20 16:00 02/20/20 08:57 Baclofen (Lioresal) 10 mg TIDP PRN PO MUSCLE SPASMS 01/10/20 22:45 01/16/20 11:38 DC 01/16/20 08:51 Brexpiprazole (Rexulti) 0.5 mg DAILY PO 02/01/20 09:00 02/06/20 12:33 DC 02/06/20 09:52 Brexpiprazole (Rexulti) 1 mg DAILY PO 02/07/20 09:00 02/09/20 15:59 DC 02/09/20 10:09 Clonazepam (KlonoPIN) 1 mg TID PRN PO ANXIETY/AGITATION 02/08/20 16:30 02/09/20 15:59 DC 02/09/20 09:27 Clozapine (Clozaril) 12.5 mg BID PO 02/09/20 21:00 02/10/20 13:31 DC 02/10/20 08:33 Clozapine (Clozaril) 25 mg QHS PO 02/11/20 21:00 02/13/20 11:00 DC 02/12/20 20:42 Clozapine (Clozaril) 50 mg QHS PO 02/13/20 21:00 02/14/20 13:31 DC 02/13/20 20:02 Clozapine (Clozaril) 75 mg QHS PO 02/14/20 21:00 02/17/20 12:57 DC 02/16/20 22:11 Clozapine (Clozaril) 100 mg QHS PO 01/10/20 21:00 01/20/20 17:14 DC 01/19/20 20:53 Clozapine (Clozaril) 100 mg QHS PO 02/17/20 21:00 02/19/20 19:55 Clozapine (Clozaril) 125 mg QHS PO 01/20/20 21:00 01/25/20 11:52 DC 01/24/20 20:33 Clozapine (Clozaril) 150 mg QHS PO 01/20/20 21:00 01/20/20 17:16 DC Clozapine (Clozaril) 150 mg QHS PO 01/25/20 21:00 01/31/20 13:28 DC 01/30/20 20:47 Diphenhydramine HCl (Benadryl) 25 mg Q4H PO 02/15/20 13:00 02/20/20 08:56 Docusate Sodium (Colace) 100 mg DAILY PO 01/11/20 09:00 02/10/20 13:12 DC 02/09/20 09:49 Fish Oil ([place]-3 (1000mg)) 1 cap DAILY PO 01/10/20 09:00 01/10/20 22:33 DC 01/10/20 08:29 Fish Oil ([place]-3 (1000mg)) 1 cap DAILY PO 01/11/20 09:00 02/19/20 08:49 Fluoxetine HCl (PROzac) 20 mg DAILY PO 01/10/20 09:00 01/10/20 22:33 DC 01/10/20 08:22 Fluoxetine HCl (PROzac) 20 mg DAILY PO 01/11/20 09:00 01/12/20 12:40 DC 01/12/20 08:33 Fluoxetine HCl (PROzac) 30 mg DAILY PO 01/13/20 09:00 01/16/20 11:35 DC 01/16/20 08:50 Fluoxetine HCl (PROzac) 40 mg DAILY PO 01/17/20 09:00 02/20/20 08:57 Folic Acid (Folic Acid) 1 mg DAILY PO 01/10/20 09:00 01/10/20 20:27 DC 01/10/20 08:23 Folic Acid (Folic Acid) 1 mg DAILY PO 01/11/20 09:00 02/20/20 08:56 Folic Acid (Folic Acid) 1 mg DAILY PO 01/11/20 09:00 Cancel Heparin Sodium (Heparin (Flush)) 500 units Q30D@09 IV 02/01/20 09:00 02/01/20 15:33 Home Med (Med Rec Complete!) ASDIRECTED XX 01/10/20 21:45 01/10/20 21:35 DC Hydroxyzine HCl (Atarax) 50 mg Q6HP PRN PO anxiety 01/19/20 17:00 01/24/20 14:12 DC 01/24/20 12:58 Hydroxyzine HCl (Atarax) 50 mg QID PO 01/10/20 13:00 01/10/20 22:33 DC 01/10/20 17:03 Hydroxyzine HCl (Atarax) 50 mg QID PO 01/11/20 13:00 01/19/20 16:52 DC 01/19/20 15:53 Hydroxyzine HCl (Atarax) 50 mg QIDP PRN PO ANXIETY 01/10/20 22:45 01/11/20 12:19 DC 01/11/20 08:37 Hydroxyzine HCl (Atarax) 100 mg BID PO 01/19/20 21:00 01/20/20 11:16 DC 01/20/20 08:25 Hydroxyzine HCl (Atarax) 100 mg BID@0900,1500 PO 01/20/20 15:00 01/31/20 13:28 DC 01/31/20 08:10 Ibuprofen (Advil) 400 mg Q6HP PRN PO PAIN 02/05/20 15:00 02/07/20 18:04 Loperamide HCl (Imodium) 2 mg ASDIRECTED PRN PO DIARRHEA 02/03/20 19:30 02/17/20 10:46 Lorazepam (Ativan) 2 mg ASDIRECTED PRN PO SEE PROTOCOL 01/10/20 20:30 01/11/20 16:44 DC Magnesium Hydroxide (Milk Of Magnesia) 30 ml DAILYPRN PRN PO CONSTIPATION 01/10/20 20:30 02/10/20 13:12 DC Meloxicam (Mobic) 15 mg DAILY PO 01/11/20 09:00 02/20/20 08:57 Mirtazapine (Remeron) 30 mg QHS PO 01/10/20 21:00 01/31/20 13:28 DC 01/30/20 20:48 Miscellaneous (Unresolved Clarification Entry) SEE LABEL COMMENTS DAILY XX 01/15/20 09:00 01/15/20 11:17 DC Multivitamins (Theragram-M) 1 tab DAILY PO 01/11/20 09:00 02/20/20 08:58 Mycophenolate Mofetil (Cellcept) 500 mg TID PO 01/10/20 09:00 01/10/20 22:33 DC 01/10/20 17:04 Mycophenolate Mofetil (Cellcept) 1,000 mg TID PO 01/10/20 21:00 02/19/20 19:54 Naltrexone HCl (Revia) 50 mg BID PO 01/10/20 09:00 01/10/20 22:33 DC 01/10/20 08:28 Naltrexone HCl (Revia) 50 mg BID PO 01/10/20 21:00 02/20/20 08:57 Olanzapine (ZyPREXA ZYDIS) 5 mg Q4HP PRN PO ANXIETY/AGITATION 01/11/20 16:45 01/19/20 16:55 DC 01/19/20 15:56 Omeprazole (PriLOSEC) 20 mg DAILY PO 01/10/20 09:00 01/10/20 22:33 DC 01/10/20 08:21 Omeprazole (PriLOSEC) 20 mg DAILY PO 01/11/20 09:00 02/20/20 08:57 Oxazepam (Serax) 10 mg BIDP PRN PO ANXIETY 02/03/20 12:00 02/19/20 20:39 Oxazepam (Serax) 10 mg DAILYPRN PRN PO ANXIETY 01/31/20 13:30 02/03/20 11:55 DC 02/03/20 06:44 Potassium Chloride (Micro-K Extencaps) 20 meq DAILY PO 01/10/20 09:00 01/10/20 22:33 DC 01/10/20 08:22 Potassium Chloride (Micro-K Extencaps) 20 meq DAILY PO 01/11/20 09:00 02/20/20 08:58 Pramipexole Dihydrochloride (Mirapex) 0.125 mg QHS PO 02/15/20 21:00 02/17/20 12:57 DC 02/16/20 22:24 Pramipexole Dihydrochloride (Mirapex) 0.25 mg QHS PO 02/17/20 21:00 02/19/20 20:00 Pyridostigmine [place] (Mestinon) 90 mg QID PO 01/10/20 09:00 01/10/20 22:33 DC 01/10/20 17:02 Pyridostigmine [place] (Mestinon) 90 mg QID PO 01/10/20 21:00 02/20/20 09:02 Ramelteon (Rozerem) 8 mg QHS PRN PO INSOMNIA 01/31/20 13:30 02/19/20 20:00 Senna (Senokot) 2 tab QHSP PRN PO CONSTIPATION 01/10/20 22:45 02/10/20 13:12 DC Sodium Chloride (Saline Lock Flush) 10 ml Q30D IV 02/01/20 09:00 02/01/20 15:33 Tamoxifen Citrate (Nolvadex) 20 mg DAILY PO 01/10/20 09:00 01/10/20 22:33 DC 01/10/20 08:31 Tamoxifen Citrate (Nolvadex) 20 mg DAILY PO 01/11/20 09:00 01/26/20 16:25 DC 01/26/20 08:08 Tamoxifen Citrate (Nolvadex) 20 mg DAILY PO 02/18/20 09:00 02/20/20 09:00 Thiamine HCl (Thiamine HCl) 100 mg BID PO 01/10/20 21:00 01/13/20 20:59 DC 01/13/20 08:03 Torsemide (Demadex) 20 mg DAILY PO 01/10/20 09:00 01/10/20 22:33 DC 01/10/20 08:22 Torsemide (Demadex) 20 mg DAILY PO 01/11/20 09:00 01/19/20 16:37 DC 01/19/20 08:05 Torsemide (Demadex) 40 mg DAILY PO 01/20/20 09:00 02/10/20 13:01 DC 02/10/20 08:33 Torsemide (Demadex) 40 mg DAILY PO 02/12/20 09:00 02/16/20 08:44 Trazodone HCl (Desyrel) 50 mg QHSP PRN PO INSOMNIA 01/10/20 20:30 01/31/20 13:29 DC 01/30/20 20:47 Venlafaxine HCl (Effexor Xr) 225 mg DAILY PO 01/11/20 09:00 02/20/20 08:56 Venlafaxine HCl (Effexor) 225 mg DAILY PO 01/10/20 09:00 01/10/20 22:33 DC 01/10/20 08:28 Vitamin D (Vitamin D) 5,000 units DAILY PO 01/10/20 09:00 01/10/20 22:33 DC 01/10/20 08:20 Allergies Coded Allergies: amitriptyline (Verified Allergy, Severe, SWELLING, 11/29/19) Grass (Verified Allergy, Mild, ITCHY EYES,NOSE, 11/29/19) TAPE (Verified Allergy, Mild, RASH/BLISTER, 11/29/19) TREES (Verified Allergy, Mild, ITCHY EYES,NOSE, 11/29/19) adhesive (Verified Allergy, Unknown, 11/29/19) divalproex sodium (Verified Allergy, Unknown, 11/29/19) minocycline (Verified Allergy, Unknown, 11/29/19) mold (Verified Allergy, Unknown, 11/29/19) tetracycline (Verified Allergy, Unknown, 11/29/19) bupropion (Verified Adverse Reaction, Intermediate, ESOPHAGEAL SPASMS, 11/29/19) banana (Verified Adverse Reaction, Mild, VOMITING, 11/29/19) benztropine (Verified Adverse Reaction, Mild, BLURRED VISION, 11/29/19) clindamycin (Verified Adverse Reaction, Mild, HEART BURN, 11/29/19) gabapentin (Verified Adverse Reaction, Mild, extreme weakness, 11/29/19) metaxalone (Verified Adverse Reaction, Mild, itching, 11/29/19) pregabalin (Verified Adverse Reaction, Mild, EDEMA, 11/29/19) sulfamethoxazole (Verified Adverse Reaction, Mild, DIARRHEA, 11/29/19) tizanidine (Verified Adverse Reaction, Mild, ITCHING, 11/29/19) trazodone (Verified Adverse Reaction, Mild, EDEMA, 11/29/19) trimethoprim (Verified Adverse Reaction, Mild, DIARRHEA, 11/29/19) vilazodone (Verified Adverse Reaction, Mild, MOOD CHANGES, 11/29/19) cyclobenzaprine (Verified Adverse Reaction, Unknown, IRRITABILITY, 11/29/19) valproic acid (Unverified Adverse Reaction, Unknown, DOES NOT METABOLIZE, 11/29/19) MANJULA ALBRIGHT DO Feb 20, 2020 10:31
[2020-02-20] MEDS: MYCOPHENOLATE MOFETIL 250 MG CAP (J7517) PO SCH ×3 (10:55→21:50)
[2020-02-20] MEDS: OMEGA-3 1000MG CAPSULE PO SCH (10:57)
[2020-02-20] MEDS: OXAZEPAM 10 MG CAP PO PRN (17:11)
[2020-02-20 18:58] VITALS: BP 160/82
[2020-02-20] MEDS ORDERED: PRAMIPEXOLE 0.25 MG TAB PO SCH (21:00)
[2020-02-20] MEDS: cloZAPine 100 MG TAB (S0136) PO SCH (21:47)
[2020-02-21] MEDS: diphenhydrAMINE 25MG CAP PO SCH ×6 (01:00→21:51)
[2020-02-21 06:27] VITALS: BP 158/85
[2020-02-21] MEDS: acetaZOLAMIDE 500 MG ER CAP PO SCH ×2 (08:42→21:52)
[2020-02-21] MEDS: ACYCLOVIR 200 MG CAPSULE PO SCH ×2 (08:42→21:51)
[2020-02-21] MEDS: MYCOPHENOLATE MOFETIL 250 MG CAP (J7517) PO SCH ×3 (08:43→21:50)
[2020-02-21] MEDS: OMEGA-3 1000MG CAPSULE PO SCH (08:43)
[2020-02-21] MEDS: BACLOFEN 10 MG TAB PO SCH ×3 (08:45→21:51)
[2020-02-21] MEDS: MELOXICAM (MOBIC) 7.5 MG TAB PO SCH (08:45)
[2020-02-21] MEDS: PILL CUTTER 1 EACH XX PRN ×3 (08:45→16:42)
[2020-02-21] MEDS: TAMOXIFEN CITRATE 10 MG TAB PO SCH (08:45)
[2020-02-21] MEDS: NALTREXONE 50 MG TAB PO SCH ×2 (08:46→21:52)
[2020-02-21] MEDS: POTASSIUM CHLORIDE 10 MEQ SR TABLET PO SCH (08:47)
[2020-02-21] MEDS: FLUoxetine 20 MG CAP PO SCH (08:47)
[2020-02-21] MEDS: MULTIVITAMINS/MINERALS THERAP 1 TAB PO SCH (08:47)
[2020-02-21] MEDS: OMEPRAZOLE 20 MG CAP PO SCH (08:47)
[2020-02-21] MEDS: VENLAFAXINE **XR** 75MG CAPSULE PO SCH (08:48)
[2020-02-21] MEDS: PYRIDOSTIGMINE 60 MG TAB PO SCH ×4 (08:48→21:53)
[2020-02-21] MEDS: FOLIC ACID 1 MG TAB PO SCH (08:48)
[2020-02-21] MEDS: BACITRACIN OINTMENT 30GM TUBE TOP SCH ×3 (08:53→21:00)
[2020-02-21] MEDS: TORSEMIDE 20 MG TAB PO SCH (08:55)
--- NOTE | 2020-02-21 10:41 | MHIPNPDOC ---
[facility] Progress Note Progress Note DATE OF SERVICE: 02/21/20 HISTORY: the patient is met with in her room, she still quite depressed and generally uninterested and engaging. She is writing various letters, it appears nurse reports that she is fairly poorly engaged, still on one-to-one sitter VITAL SIGNS: See below. NEW TEST RESULTS: NA. CURRENT MEDICATIONS: See below. MENTAL STATUS EXAMINATION: General: cut maynard a long arm Speech: [Spontaneous and fluid] Thought processes: [Linear and logical] Thought content: Hopelessness Abstract reasoning, and computation: [Intact] Description of associations: [Intact] Description of abnormal or psychotic thoughts. Reports her self muting thoughts are frequent Judgment: Poor Insight: Poor Orientation: [Alert and orientated 3] Recent and remote memory: [Intact] Attention span and concentration: [Intact] Fund of knowledge: [Adequate] Mood: "Fine" Affect: Dysthymic and constricted DIAGNOSES: 1. MDD, recurrent, severe without psychotic features. 2. Borderline personality disorder ASSESSMENT: will continue to increase Mirapex, if does not produce results the next week or so will need to take much more aggressive treatment even recommending electroconvulsive MANAGEMENT PLAN: Continue Clozaril to 100 mg daily Continue Effexor 225 Milgram's daily Continue Prozac 40 mg daily Increase Mirapex to 0.75 mg nightly Referral to [facility] in process, will likely not pursue if patient is not interested as it would be quite difficult to improve, will still try to maximize Mirapex or even consider MAOI agent TIME SPENT: 15 minutes. Vital Signs Vital Signs Date Time Temp Pulse Resp B/P (MAP) Pulse Ox O2 Delivery O2 Flow Rate FiO2 02/21/20 06:27 98.5 90 18 158/85 (109) 02/20/20 06:29 98 Room Air Current Medications Current Medications Medications (Trade) Dose Ordered Sig/Ben Route PRN Reason Start Time Stop Time Status Last Admin Dose Admin Acetaminophen (Tylenol Tab) 650 mg Q6HP PRN PO HEADACHE or DISCOMFORT 01/10/20 20:30 02/08/20 08:41 Acetazolamide (Diamox Sequels) 500 mg BID PO 01/10/20 21:00 02/21/20 08:42 Acetazolamide (Diamox) 500 mg BID PO 01/10/20 09:00 01/10/20 22:33 DC 01/10/20 08:29 Acyclovir (Zovirax) 400 mg BID PO 01/10/20 09:00 01/10/20 22:33 DC 01/10/20 08:22 Acyclovir (Zovirax) 400 mg BID PO 01/10/20 21:00 02/21/20 08:42 Al Hydrox/Mg Hydrox/Simethicone (Mylanta) 30 ml Q4HP PRN PO HEARTBURN/INDIGESTION 01/10/20 20:30 02/17/20 22:05 Albuterol Sulfate (Proventil, Ventolin Hfa) 2 puff Q2HP PRN INH SHORTNESS OF BREATH 01/11/20 12:15 01/20/20 08:22 Bacitracin (Bacitracin Oint) apply to left arm lacerations TID TOP 01/11/20 21:00 02/20/20 21:51 Baclofen (Lioresal) 10 mg TID PO 01/16/20 16:00 02/21/20 08:45 Baclofen (Lioresal) 10 mg TIDP PRN PO MUSCLE SPASMS 01/10/20 22:45 01/16/20 11:38 DC 01/16/20 08:51 Brexpiprazole (Rexulti) 0.5 mg DAILY PO 02/01/20 09:00 02/06/20 12:33 DC 02/06/20 09:52 Brexpiprazole (Rexulti) 1 mg DAILY PO 02/07/20 09:00 02/09/20 15:59 DC 02/09/20 10:09 Clonazepam (KlonoPIN) 1 mg TID PRN PO ANXIETY/AGITATION 02/08/20 16:30 02/09/20 15:59 DC 02/09/20 09:27 Clozapine (Clozaril) 12.5 mg BID PO 02/09/20 21:00 02/10/20 13:31 DC 02/10/20 08:33 Clozapine (Clozaril) 25 mg QHS PO 02/11/20 21:00 02/13/20 11:00 DC 02/12/20 20:42 Clozapine (Clozaril) 50 mg QHS PO 02/13/20 21:00 02/14/20 13:31 DC 02/13/20 20:02 Clozapine (Clozaril) 75 mg QHS PO 02/14/20 21:00 02/17/20 12:57 DC 02/16/20 22:11 Clozapine (Clozaril) 100 mg QHS PO 01/10/20 21:00 01/20/20 17:14 DC 01/19/20 20:53 Clozapine (Clozaril) 100 mg QHS PO 02/17/20 21:00 02/20/20 21:47 Clozapine (Clozaril) 125 mg QHS PO 01/20/20 21:00 01/25/20 11:52 DC 01/24/20 20:33 Clozapine (Clozaril) 150 mg QHS PO 01/20/20 21:00 01/20/20 17:16 DC Clozapine (Clozaril) 150 mg QHS PO 01/25/20 21:00 01/31/20 13:28 DC 01/30/20 20:47 Diphenhydramine HCl (Benadryl) 25 mg Q4H PO 02/15/20 13:00 02/21/20 08:48 Docusate Sodium (Colace) 100 mg DAILY PO 01/11/20 09:00 02/10/20 13:12 DC 02/09/20 09:49 Fish Oil ([place]-3 (1000mg)) 1 cap DAILY PO 01/10/20 09:00 01/10/20 22:33 DC 01/10/20 08:29 Fish Oil ([place]-3 (1000mg)) 1 cap DAILY PO 01/11/20 09:00 02/21/20 08:43 Fluoxetine HCl (PROzac) 20 mg DAILY PO 01/10/20 09:00 01/10/20 22:33 DC 01/10/20 08:22 Fluoxetine HCl (PROzac) 20 mg DAILY PO 01/11/20 09:00 01/12/20 12:40 DC 01/12/20 08:33 Fluoxetine HCl (PROzac) 30 mg DAILY PO 01/13/20 09:00 01/16/20 11:35 DC 01/16/20 08:50 Fluoxetine HCl (PROzac) 40 mg DAILY PO 01/17/20 09:00 02/21/20 08:47 Folic Acid (Folic Acid) 1 mg DAILY PO 01/10/20 09:00 01/10/20 20:27 DC 01/10/20 08:23 Folic Acid (Folic Acid) 1 mg DAILY PO 01/11/20 09:00 02/21/20 08:48 Folic Acid (Folic Acid) 1 mg DAILY PO 01/11/20 09:00 Cancel Heparin Sodium (Heparin (Flush)) 500 units Q30D@09 IV 02/01/20 09:00 02/01/20 15:33 Home Med (Med Rec Complete!) ASDIRECTED XX 01/10/20 21:45 01/10/20 21:35 DC Hydroxyzine HCl (Atarax) 50 mg Q6HP PRN PO anxiety 01/19/20 17:00 01/24/20 14:12 DC 01/24/20 12:58 Hydroxyzine HCl (Atarax) 50 mg QID PO 01/10/20 13:00 01/10/20 22:33 DC 01/10/20 17:03 Hydroxyzine HCl (Atarax) 50 mg QID PO 01/11/20 13:00 01/19/20 16:52 DC 01/19/20 15:53 Hydroxyzine HCl (Atarax) 50 mg QIDP PRN PO ANXIETY 01/10/20 22:45 01/11/20 12:19 DC 01/11/20 08:37 Hydroxyzine HCl (Atarax) 100 mg BID PO 01/19/20 21:00 01/20/20 11:16 DC 01/20/20 08:25 Hydroxyzine HCl (Atarax) 100 mg BID@0900,1500 PO 01/20/20 15:00 01/31/20 13:28 DC 01/31/20 08:10 Ibuprofen (Advil) 400 mg Q6HP PRN PO PAIN 02/05/20 15:00 02/07/20 18:04 Loperamide HCl (Imodium) 2 mg ASDIRECTED PRN PO DIARRHEA 02/03/20 19:30 02/17/20 10:46 Lorazepam (Ativan) 2 mg ASDIRECTED PRN PO SEE PROTOCOL 01/10/20 20:30 01/11/20 16:44 DC Magnesium Hydroxide (Milk Of Magnesia) 30 ml DAILYPRN PRN PO CONSTIPATION 01/10/20 20:30 02/10/20 13:12 DC Meloxicam (Mobic) 15 mg DAILY PO 01/11/20 09:00 02/21/20 08:45 Mirtazapine (Remeron) 30 mg QHS PO 01/10/20 21:00 01/31/20 13:28 DC 01/30/20 20:48 Miscellaneous (Unresolved Clarification Entry) SEE LABEL COMMENTS DAILY XX 01/15/20 09:00 01/15/20 11:17 DC Multivitamins (Theragram-M) 1 tab DAILY PO 01/11/20 09:00 02/21/20 08:47 Mycophenolate Mofetil (Cellcept) 500 mg TID PO 01/10/20 09:00 01/10/20 22:33 DC 01/10/20 17:04 Mycophenolate Mofetil (Cellcept) 1,000 mg TID PO 01/10/20 21:00 02/21/20 08:43 Naltrexone HCl (Revia) 50 mg BID PO 01/10/20 09:00 01/10/20 22:33 DC 01/10/20 08:28 Naltrexone HCl (Revia) 50 mg BID PO 01/10/20 21:00 02/21/20 08:46 Olanzapine (ZyPREXA ZYDIS) 5 mg Q4HP PRN PO ANXIETY/AGITATION 01/11/20 16:45 01/19/20 16:55 DC 01/19/20 15:56 Omeprazole (PriLOSEC) 20 mg DAILY PO 01/10/20 09:00 01/10/20 22:33 DC 01/10/20 08:21 Omeprazole (PriLOSEC) 20 mg DAILY PO 01/11/20 09:00 02/21/20 08:47 Oxazepam (Serax) 10 mg BIDP PRN PO ANXIETY 02/03/20 12:00 02/20/20 17:11 Oxazepam (Serax) 10 mg DAILYPRN PRN PO ANXIETY 01/31/20 13:30 02/03/20 11:55 DC 02/03/20 06:44 Potassium Chloride (Micro-K Extencaps) 20 meq DAILY PO 01/10/20 09:00 01/10/20 22:33 DC 01/10/20 08:22 Potassium Chloride (Micro-K Extencaps) 20 meq DAILY PO 01/11/20 09:00 02/21/20 08:47 Pramipexole Dihydrochloride (Mirapex) 0.125 mg QHS PO 02/15/20 21:00 02/17/20 12:57 DC 02/16/20 22:24 Pramipexole Dihydrochloride (Mirapex) 0.25 mg QHS PO 02/17/20 21:00 02/20/20 12:23 DC 02/19/20 20:00 Pramipexole Dihydrochloride (Mirapex) 0.5 mg QHS PO 02/20/20 21:00 02/20/20 21:48 Pyridostigmine [place] (Mestinon) 90 mg QID PO 01/10/20 09:00 01/10/20 22:33 DC 01/10/20 17:02 Pyridostigmine [place] (Mestinon) 90 mg QID PO 01/10/20 21:00 02/21/20 08:48 Ramelteon (Rozerem) 8 mg QHS PRN PO INSOMNIA 01/31/20 13:30 02/19/20 20:00 Senna (Senokot) 2 tab QHSP PRN PO CONSTIPATION 01/10/20 22:45 02/10/20 13:12 DC Sodium Chloride (Saline Lock Flush) 10 ml Q30D IV 02/01/20 09:00 02/01/20 15:33 Tamoxifen Citrate (Nolvadex) 20 mg DAILY PO 01/10/20 09:00 01/10/20 22:33 DC 01/10/20 08:31 Tamoxifen Citrate (Nolvadex) 20 mg DAILY PO 01/11/20 09:00 01/26/20 16:25 DC 01/26/20 08:08 Tamoxifen Citrate (Nolvadex) 20 mg DAILY PO 02/18/20 09:00 02/21/20 08:45 Thiamine HCl (Thiamine HCl) 100 mg BID PO 01/10/20 21:00 01/13/20 20:59 DC 01/13/20 08:03 Torsemide (Demadex) 20 mg DAILY PO 01/10/20 09:00 01/10/20 22:33 DC 01/10/20 08:22 Torsemide (Demadex) 20 mg DAILY PO 01/11/20 09:00 01/19/20 16:37 DC 01/19/20 08:05 Torsemide (Demadex) 40 mg DAILY PO 01/20/20 09:00 02/10/20 13:01 DC 02/10/20 08:33 Torsemide (Demadex) 40 mg DAILY PO 02/12/20 09:00 02/16/20 08:44 Trazodone HCl (Desyrel) 50 mg QHSP PRN PO INSOMNIA 01/10/20 20:30 01/31/20 13:29 DC 01/30/20 20:47 Venlafaxine HCl (Effexor Xr) 225 mg DAILY PO 01/11/20 09:00 02/21/20 08:48 Venlafaxine HCl (Effexor) 225 mg DAILY PO 01/10/20 09:00 01/10/20 22:33 DC 01/10/20 08:28 Vitamin D (Vitamin D) 5,000 units DAILY PO 01/10/20 09:00 01/10/20 22:33 DC 01/10/20 08:20 Allergies Coded Allergies: amitriptyline (Verified Allergy, Severe, SWELLING, 11/29/19) Grass (Verified Allergy, Mild, ITCHY EYES,NOSE, 11/29/19) TAPE (Verified Allergy, Mild, RASH/BLISTER, 11/29/19) TREES (Verified Allergy, Mild, ITCHY EYES,NOSE, 11/29/19) adhesive (Verified Allergy, Unknown, 11/29/19) divalproex sodium (Verified Allergy, Unknown, 11/29/19) minocycline (Verified Allergy, Unknown, 11/29/19) mold (Verified Allergy, Unknown, 11/29/19) tetracycline (Verified Allergy, Unknown, 11/29/19) bupropion (Verified Adverse Reaction, Intermediate, ESOPHAGEAL SPASMS, 11/29/19) banana (Verified Adverse Reaction, Mild, VOMITING, 11/29/19) benztropine (Verified Adverse Reaction, Mild, BLURRED VISION, 11/29/19) clindamycin (Verified Adverse Reaction, Mild, HEART BURN, 11/29/19) gabapentin (Verified Adverse Reaction, Mild, extreme weakness, 11/29/19) metaxalone (Verified Adverse Reaction, Mild, itching, 11/29/19) pregabalin (Verified Adverse Reaction, Mild, EDEMA, 11/29/19) sulfamethoxazole (Verified Adverse Reaction, Mild, DIARRHEA, 11/29/19) tizanidine (Verified Adverse Reaction, Mild, ITCHING, 11/29/19) trazodone (Verified Adverse Reaction, Mild, EDEMA, 11/29/19) trimethoprim (Verified Adverse Reaction, Mild, DIARRHEA, 11/29/19) vilazodone (Verified Adverse Reaction, Mild, MOOD CHANGES, 11/29/19) cyclobenzaprine (Verified Adverse Reaction, Unknown, IRRITABILITY, 11/29/19) valproic acid (Unverified Adverse Reaction, Unknown, DOES NOT METABOLIZE, 11/29/19) MANJULA ALBRIGHT DO Feb 21, 2020 10:41
[2020-02-21 18:00] VITALS: BP 142/72
[2020-02-21] MEDS ORDERED: PRAMIPEXOLE 0.25 MG TAB PO SCH (21:00)
[2020-02-21] MEDS: RAMELTEON 8 MG TAB (ROZEREM) PO PRN (21:51)
[2020-02-21] MEDS: cloZAPine 100 MG TAB (S0136) PO SCH (21:51)
[2020-02-22] MEDS: diphenhydrAMINE 25MG CAP PO SCH ×6 (01:00→20:56)
[2020-02-22 06:34] VITALS: BP 153/96
[2020-02-22] MEDS: BACITRACIN OINTMENT 30GM TUBE TOP SCH ×3 (08:48→20:58)
[2020-02-22] MEDS: TORSEMIDE 20 MG TAB PO SCH (08:48)
[2020-02-22] MEDS: LOPERAMIDE 2 MG CAPLET PO PRN (08:49)
[2020-02-22] MEDS: NALTREXONE 50 MG TAB PO SCH ×2 (08:50→20:56)
[2020-02-22] MEDS: OMEPRAZOLE 20 MG CAP PO SCH (08:50)
[2020-02-22] MEDS: POTASSIUM CHLORIDE 10 MEQ SR TABLET PO SCH (08:50)
[2020-02-22] MEDS: ACYCLOVIR 200 MG CAPSULE PO SCH ×2 (08:50→20:55)
[2020-02-22] MEDS: FOLIC ACID 1 MG TAB PO SCH (08:51)
[2020-02-22] MEDS: acetaZOLAMIDE 500 MG ER CAP PO SCH ×2 (08:52→20:55)
[2020-02-22] MEDS: MYCOPHENOLATE MOFETIL 250 MG CAP (J7517) PO SCH ×3 (08:53→20:54)
[2020-02-22] MEDS: MULTIVITAMINS/MINERALS THERAP 1 TAB PO SCH (08:53)
[2020-02-22] MEDS: BACLOFEN 10 MG TAB PO SCH ×3 (08:53→20:55)
[2020-02-22] MEDS: VENLAFAXINE **XR** 75MG CAPSULE PO SCH (08:53)
[2020-02-22] MEDS: PYRIDOSTIGMINE 60 MG TAB PO SCH ×4 (08:54→20:55)
[2020-02-22] MEDS: PILL CUTTER 1 EACH XX PRN (08:54)
[2020-02-22] MEDS: MELOXICAM (MOBIC) 7.5 MG TAB PO SCH (08:54)
[2020-02-22] MEDS: TAMOXIFEN CITRATE 10 MG TAB PO SCH (08:54)
[2020-02-22] MEDS: FLUoxetine 20 MG CAP PO SCH (08:55)
--- NOTE | 2020-02-22 10:01 | MHIPNPDOC ---
[facility] Progress Note Progress Note DATE OF SERVICE: 02/22/20 HISTORY: the patient is met with today, she reports that she feels like she is doing better on a very slight level, she does not want to go to long-term and w ith prefer to do administrative hearing, discussed with patient about the options available and she elects continue to try treatment here. Staff report that the patient still appears quite depressed, although his oppositional at times with staff and does attempt to rile up other patients. VITAL SIGNS: See below. NEW TEST RESULTS: NA. CURRENT MEDICATIONS: See below. MENTAL STATUS EXAMINATION: General: cut maynard a long arm Speech: [Spontaneous and fluid] Thought processes: [Linear and logical] Thought content: Hopelessness Abstract reasoning, and computation: [Intact] Description of associations: [Intact] Description of abnormal or psychotic thoughts. Reports her self muting thoughts are frequent Judgment: Poor Insight: Poor Orientation: [Alert and orientated 3] Recent and remote memory: [Intact] Attention span and concentration: [Intact] Fund of knowledge: [Adequate] Mood: "Fine" Affect: Dysthymic and constricted DIAGNOSES: 1. MDD, recurrent, severe without psychotic features. 2. Borderline personality disorder ASSESSMENT: will continue to titrate Mirapex, however, at this time I do not believe I would be successful in totality of getting her to long-term treatment given the current state of things with long-term care facility, as she is unlikely to be approved if she is uninterested. MANAGEMENT PLAN: Continue Clozaril to 100 mg daily Continue Effexor 225 Milgram's daily Continue Prozac 40 mg daily Increase Mirapex to 1 mg nightly Discontinue referral to [facility] at this time, will attempt to create more advanced medication management, with more aggressive changes to produce reduction in depression TIME SPENT: 15 minutes. Vital Signs Vital Signs Date Time Temp Pulse Resp B/P (MAP) Pulse Ox O2 Delivery O2 Flow Rate FiO2 02/22/20 06:34 99.4 89 18 153/96 (115) 02/20/20 06:29 98 Room Air Current Medications Current Medications Medications (Trade) Dose Ordered Sig/Ben Route PRN Reason Start Time Stop Time Status Last Admin Dose Admin Acetaminophen (Tylenol Tab) 650 mg Q6HP PRN PO HEADACHE or DISCOMFORT 01/10/20 20:30 02/08/20 08:41 Acetazolamide (Diamox Sequels) 500 mg BID PO 01/10/20 21:00 02/22/20 08:52 Acetazolamide (Diamox) 500 mg BID PO 01/10/20 09:00 01/10/20 22:33 DC 01/10/20 08:29 Acyclovir (Zovirax) 400 mg BID PO 01/10/20 09:00 01/10/20 22:33 DC 01/10/20 08:22 Acyclovir (Zovirax) 400 mg BID PO 01/10/20 21:00 02/22/20 08:50 Al Hydrox/Mg Hydrox/Simethicone (Mylanta) 30 ml Q4HP PRN PO HEARTBURN/INDIGESTION 01/10/20 20:30 02/17/20 22:05 Albuterol Sulfate (Proventil, Ventolin Hfa) 2 puff Q2HP PRN INH SHORTNESS OF BREATH 01/11/20 12:15 01/20/20 08:22 Bacitracin (Bacitracin Oint) apply to left arm lacerations TID TOP 01/11/20 21:00 02/20/20 21:51 Baclofen (Lioresal) 10 mg TID PO 01/16/20 16:00 02/22/20 08:53 Baclofen (Lioresal) 10 mg TIDP PRN PO MUSCLE SPASMS 01/10/20 22:45 01/16/20 11:38 DC 01/16/20 08:51 Brexpiprazole (Rexulti) 0.5 mg DAILY PO 02/01/20 09:00 02/06/20 12:33 DC 02/06/20 09:52 Brexpiprazole (Rexulti) 1 mg DAILY PO 02/07/20 09:00 02/09/20 15:59 DC 02/09/20 10:09 Clonazepam (KlonoPIN) 1 mg TID PRN PO ANXIETY/AGITATION 02/08/20 16:30 02/09/20 15:59 DC 02/09/20 09:27 Clozapine (Clozaril) 12.5 mg BID PO 02/09/20 21:00 02/10/20 13:31 DC 02/10/20 08:33 Clozapine (Clozaril) 25 mg QHS PO 02/11/20 21:00 02/13/20 11:00 DC 02/12/20 20:42 Clozapine (Clozaril) 50 mg QHS PO 02/13/20 21:00 02/14/20 13:31 DC 02/13/20 20:02 Clozapine (Clozaril) 75 mg QHS PO 02/14/20 21:00 02/17/20 12:57 DC 02/16/20 22:11 Clozapine (Clozaril) 100 mg QHS PO 01/10/20 21:00 01/20/20 17:14 DC 01/19/20 20:53 Clozapine (Clozaril) 100 mg QHS PO 02/17/20 21:00 02/21/20 21:51 Clozapine (Clozaril) 125 mg QHS PO 01/20/20 21:00 01/25/20 11:52 DC 01/24/20 20:33 Clozapine (Clozaril) 150 mg QHS PO 01/20/20 21:00 01/20/20 17:16 DC Clozapine (Clozaril) 150 mg QHS PO 01/25/20 21:00 01/31/20 13:28 DC 01/30/20 20:47 Diphenhydramine HCl (Benadryl) 25 mg Q4H PO 02/15/20 13:00 02/22/20 09:50 Docusate Sodium (Colace) 100 mg DAILY PO 01/11/20 09:00 02/10/20 13:12 DC 02/09/20 09:49 Fish Oil ([place]-3 (1000mg)) 1 cap DAILY PO 01/10/20 09:00 01/10/20 22:33 DC 01/10/20 08:29 Fish Oil ([place]-3 (1000mg)) 1 cap DAILY PO 01/11/20 09:00 02/21/20 08:43 Fluoxetine HCl (PROzac) 20 mg DAILY PO 01/10/20 09:00 01/10/20 22:33 DC 01/10/20 08:22 Fluoxetine HCl (PROzac) 20 mg DAILY PO 01/11/20 09:00 01/12/20 12:40 DC 01/12/20 08:33 Fluoxetine HCl (PROzac) 30 mg DAILY PO 01/13/20 09:00 01/16/20 11:35 DC 01/16/20 08:50 Fluoxetine HCl (PROzac) 40 mg DAILY PO 01/17/20 09:00 02/22/20 08:55 Folic Acid (Folic Acid) 1 mg DAILY PO 01/10/20 09:00 01/10/20 20:27 DC 01/10/20 08:23 Folic Acid (Folic Acid) 1 mg DAILY PO 01/11/20 09:00 02/22/20 08:51 Folic Acid (Folic Acid) 1 mg DAILY PO 01/11/20 09:00 Cancel Heparin Sodium (Heparin (Flush)) 500 units Q30D@09 IV 02/01/20 09:00 02/01/20 15:33 Home Med (Med Rec Complete!) ASDIRECTED XX 01/10/20 21:45 01/10/20 21:35 DC Hydroxyzine HCl (Atarax) 50 mg Q6HP PRN PO anxiety 01/19/20 17:00 01/24/20 14:12 DC 01/24/20 12:58 Hydroxyzine HCl (Atarax) 50 mg QID PO 01/10/20 13:00 01/10/20 22:33 DC 01/10/20 17:03 Hydroxyzine HCl (Atarax) 50 mg QID PO 01/11/20 13:00 01/19/20 16:52 DC 01/19/20 15:53 Hydroxyzine HCl (Atarax) 50 mg QIDP PRN PO ANXIETY 01/10/20 22:45 01/11/20 12:19 DC 01/11/20 08:37 Hydroxyzine HCl (Atarax) 100 mg BID PO 01/19/20 21:00 01/20/20 11:16 DC 01/20/20 08:25 Hydroxyzine HCl (Atarax) 100 mg BID@0900,1500 PO 01/20/20 15:00 01/31/20 13:28 DC 01/31/20 08:10 Ibuprofen (Advil) 400 mg Q6HP PRN PO PAIN 02/05/20 15:00 02/07/20 18:04 Loperamide HCl (Imodium) 2 mg ASDIRECTED PRN PO DIARRHEA 02/03/20 19:30 02/22/20 08:49 Lorazepam (Ativan) 2 mg ASDIRECTED PRN PO SEE PROTOCOL 01/10/20 20:30 01/11/20 16:44 DC Magnesium Hydroxide (Milk Of Magnesia) 30 ml DAILYPRN PRN PO CONSTIPATION 01/10/20 20:30 02/10/20 13:12 DC Meloxicam (Mobic) 15 mg DAILY PO 01/11/20 09:00 02/22/20 08:54 Mirtazapine (Remeron) 30 mg QHS PO 01/10/20 21:00 01/31/20 13:28 DC 01/30/20 20:48 Miscellaneous (Unresolved Clarification Entry) SEE LABEL COMMENTS DAILY XX 01/15/20 09:00 01/15/20 11:17 DC Multivitamins (Theragram-M) 1 tab DAILY PO 01/11/20 09:00 02/22/20 08:53 Mycophenolate Mofetil (Cellcept) 500 mg TID PO 01/10/20 09:00 01/10/20 22:33 DC 01/10/20 17:04 Mycophenolate Mofetil (Cellcept) 1,000 mg TID PO 01/10/20 21:00 02/22/20 08:53 Naltrexone HCl (Revia) 50 mg BID PO 01/10/20 09:00 01/10/20 22:33 DC 01/10/20 08:28 Naltrexone HCl (Revia) 50 mg BID PO 01/10/20 21:00 02/22/20 08:50 Olanzapine (ZyPREXA ZYDIS) 5 mg Q4HP PRN PO ANXIETY/AGITATION 01/11/20 16:45 01/19/20 16:55 DC 01/19/20 15:56 Omeprazole (PriLOSEC) 20 mg DAILY PO 01/10/20 09:00 01/10/20 22:33 DC 01/10/20 08:21 Omeprazole (PriLOSEC) 20 mg DAILY PO 01/11/20 09:00 02/22/20 08:50 Oxazepam (Serax) 10 mg BIDP PRN PO ANXIETY 02/03/20 12:00 02/20/20 17:11 Oxazepam (Serax) 10 mg DAILYPRN PRN PO ANXIETY 01/31/20 13:30 02/03/20 11:55 DC 02/03/20 06:44 Potassium Chloride (Micro-K Extencaps) 20 meq DAILY PO 01/10/20 09:00 01/10/20 22:33 DC 01/10/20 08:22 Potassium Chloride (Micro-K Extencaps) 20 meq DAILY PO 01/11/20 09:00 02/22/20 08:50 Pramipexole Dihydrochloride (Mirapex) 0.125 mg QHS PO 02/15/20 21:00 02/17/20 12:57 DC 02/16/20 22:24 Pramipexole Dihydrochloride (Mirapex) 0.25 mg QHS PO 02/17/20 21:00 02/20/20 12:23 DC 02/19/20 20:00 Pramipexole Dihydrochloride (Mirapex) 0.5 mg QHS PO 02/20/20 21:00 02/21/20 13:34 DC 02/20/20 21:48 Pramipexole Dihydrochloride (Mirapex) 0.75 mg QHS PO 02/21/20 21:00 02/21/20 21:52 Pyridostigmine [place] (Mestinon) 90 mg QID PO 01/10/20 09:00 01/10/20 22:33 DC 01/10/20 17:02 Pyridostigmine [place] (Mestinon) 90 mg QID PO 01/10/20 21:00 02/22/20 08:54 Ramelteon (Rozerem) 8 mg QHS PRN PO INSOMNIA 01/31/20 13:30 02/21/20 21:51 Senna (Senokot) 2 tab QHSP PRN PO CONSTIPATION 01/10/20 22:45 02/10/20 13:12 DC Sodium Chloride (Saline Lock Flush) 10 ml Q30D IV 02/01/20 09:00 02/01/20 15:33 Tamoxifen Citrate (Nolvadex) 20 mg DAILY PO 01/10/20 09:00 01/10/20 22:33 DC 01/10/20 08:31 Tamoxifen Citrate (Nolvadex) 20 mg DAILY PO 01/11/20 09:00 01/26/20 16:25 DC 01/26/20 08:08 Tamoxifen Citrate (Nolvadex) 20 mg DAILY PO 02/18/20 09:00 02/22/20 08:54 Thiamine HCl (Thiamine HCl) 100 mg BID PO 01/10/20 21:00 01/13/20 20:59 DC 01/13/20 08:03 Torsemide (Demadex) 20 mg DAILY PO 01/10/20 09:00 01/10/20 22:33 DC 01/10/20 08:22 Torsemide (Demadex) 20 mg DAILY PO 01/11/20 09:00 01/19/20 16:37 DC 01/19/20 08:05 Torsemide (Demadex) 40 mg DAILY PO 01/20/20 09:00 02/10/20 13:01 DC 02/10/20 08:33 Torsemide (Demadex) 40 mg DAILY PO 02/12/20 09:00 02/16/20 08:44 Trazodone HCl (Desyrel) 50 mg QHSP PRN PO INSOMNIA 01/10/20 20:30 01/31/20 13:29 DC 01/30/20 20:47 Venlafaxine HCl (Effexor Xr) 225 mg DAILY PO 01/11/20 09:00 02/22/20 08:53 Venlafaxine HCl (Effexor) 225 mg DAILY PO 01/10/20 09:00 01/10/20 22:33 DC 01/10/20 08:28 Vitamin D (Vitamin D) 5,000 units DAILY PO 01/10/20 09:00 01/10/20 22:33 DC 01/10/20 08:20 Allergies Coded Allergies: amitriptyline (Verified Allergy, Severe, SWELLING, 11/29/19) Grass (Verified Allergy, Mild, ITCHY EYES,NOSE, 11/29/19) TAPE (Verified Allergy, Mild, RASH/BLISTER, 11/29/19) TREES (Verified Allergy, Mild, ITCHY EYES,NOSE, 11/29/19) adhesive (Verified Allergy, Unknown, 11/29/19) divalproex sodium (Verified Allergy, Unknown, 11/29/19) minocycline (Verified Allergy, Unknown, 11/29/19) mold (Verified Allergy, Unknown, 11/29/19) tetracycline (Verified Allergy, Unknown, 11/29/19) bupropion (Verified Adverse Reaction, Intermediate, ESOPHAGEAL SPASMS, 11/29/19) banana (Verified Adverse Reaction, Mild, VOMITING, 11/29/19) benztropine (Verified Adverse Reaction, Mild, BLURRED VISION, 11/29/19) clindamycin (Verified Adverse Reaction, Mild, HEART BURN, 11/29/19) gabapentin (Verified Adverse Reaction, Mild, extreme weakness, 11/29/19) metaxalone (Verified Adverse Reaction, Mild, itching, 11/29/19) pregabalin (Verified Adverse Reaction, Mild, EDEMA, 11/29/19) sulfamethoxazole (Verified Adverse Reaction, Mild, DIARRHEA, 11/29/19) tizanidine (Verified Adverse Reaction, Mild, ITCHING, 11/29/19) trazodone (Verified Adverse Reaction, Mild, EDEMA, 11/29/19) trimethoprim (Verified Adverse Reaction, Mild, DIARRHEA, 11/29/19) vilazodone (Verified Adverse Reaction, Mild, MOOD CHANGES, 11/29/19) cyclobenzaprine (Verified Adverse Reaction, Unknown, IRRITABILITY, 11/29/19) valproic acid (Unverified Adverse Reaction, Unknown, DOES NOT METABOLIZE, 11/29/19) MANJULA ALBRIGHT DO Feb 22, 2020 10:01
[2020-02-22] MEDS: OMEGA-3 1000MG CAPSULE PO SCH (11:59)
[2020-02-22] MEDS: RAMELTEON 8 MG TAB (ROZEREM) PO PRN (20:54)
[2020-02-22] MEDS: cloZAPine 100 MG TAB (S0136) PO SCH (20:55)
[2020-02-22] MEDS ORDERED: PRAMIPEXOLE 1 MG TAB PO SCH (21:00)
[2020-02-23] MEDS: diphenhydrAMINE 25MG CAP PO SCH ×6 (01:00→20:45)
[2020-02-23 06:46] VITALS: BP 139/88
[2020-02-23] MEDS: MYCOPHENOLATE MOFETIL 250 MG CAP (J7517) PO SCH ×3 (08:34→20:45)
[2020-02-23] MEDS: acetaZOLAMIDE 500 MG ER CAP PO SCH ×2 (08:34→20:45)
[2020-02-23] MEDS: TAMOXIFEN CITRATE 10 MG TAB PO SCH (08:34)
[2020-02-23] MEDS: OMEPRAZOLE 20 MG CAP PO SCH (08:36)
[2020-02-23] MEDS: ACYCLOVIR 200 MG CAPSULE PO SCH ×2 (08:36→20:45)
[2020-02-23] MEDS: FOLIC ACID 1 MG TAB PO SCH (08:36)
[2020-02-23] MEDS: MELOXICAM (MOBIC) 7.5 MG TAB PO SCH (08:36)
[2020-02-23] MEDS: PYRIDOSTIGMINE 60 MG TAB PO SCH ×4 (08:39→20:45)
[2020-02-23] MEDS: OMEGA-3 1000MG CAPSULE PO SCH (08:40)
[2020-02-23] MEDS: BACLOFEN 10 MG TAB PO SCH ×3 (08:40→20:45)
[2020-02-23] MEDS: NALTREXONE 50 MG TAB PO SCH (08:40)
[2020-02-23] MEDS: TORSEMIDE 20 MG TAB PO SCH (08:40)
[2020-02-23] MEDS: BACITRACIN OINTMENT 30GM TUBE TOP SCH ×3 (09:00→20:42)
[2020-02-23] MEDS: MULTIVITAMINS/MINERALS THERAP 1 TAB PO SCH (09:00)
[2020-02-23] MEDS: POTASSIUM CHLORIDE 10 MEQ SR TABLET PO SCH (09:00)
[2020-02-23] MEDS: FLUoxetine 20 MG CAP PO SCH (09:00)
[2020-02-23] MEDS: VENLAFAXINE **XR** 75MG CAPSULE PO SCH (09:00)
[2020-02-23] MEDS ORDERED: POTA1TAB14 PO (09:47)
--- NOTE | 2020-02-23 10:43 | MHIPNPDOC ---
[facility] Progress Note Progress Note DATE OF SERVICE: 02/23/20 HISTORY: the patient is met with today, she still reports that she's feeling depressed, with minimal benefit from the medications, she otherwise doesn't have much to engage with. She reports that she is open to trying a different medication, as we discussed. She reports that she isn't having any side effects other than some sedation and feeling groggy from the Clozaril. VITAL SIGNS: See below. NEW TEST RESULTS: NA. CURRENT MEDICATIONS: See below. MENTAL STATUS EXAMINATION: General: fair hygiene Speech: [Spontaneous and fluid] Thought processes: [Linear and logical] Thought content: Hopelessness Abstract reasoning, and computation: [Intact] Description of associations: [Intact] Description of abnormal or psychotic thoughts. Reports her self muting thoughts are frequent Judgment: Poor Insight: Poor Orientation: [Alert and orientated 3] Recent and remote memory: [Intact] Attention span and concentration: [Intact] Fund of knowledge: [Adequate] Mood: "Fine" Affect: Dysthymic and constricted DIAGNOSES: 1. MDD, recurrent, severe without psychotic features. 2. Borderline personality disorder ASSESSMENT: given the patient's significant depression and BPD. I believe it appropriate to try and off label treatment, buprenorphine does have an low dose evidence in multiple trials for depression in individuals that have BPD, this was discussed with patient, as well as the various options, Risks and benefits, as she would likely be needed and MAO I or tricyclic agent, she elects this out of a range. Will try to taper down the number of medications, she has an come closer to mono therapy. MANAGEMENT PLAN: Discontinue Clozaril to 100 mg daily Continue Effexor 225 Milgram's daily Continue Prozac 40 mg daily Discontinue Mirapex to 1 mg nightly Start Suboxone 2 mg daily, monitor for nausea TIME SPENT: 15 minutes. Vital Signs Vital Signs Date Time Temp Pulse Resp B/P (MAP) Pulse Ox O2 Delivery O2 Flow Rate FiO2 02/23/20 06:46 98.1 90 16 139/88 (105) 98 Room Air Current Medications Current Medications Medications (Trade) Dose Ordered Sig/Ben Route PRN Reason Start Time Stop Time Status Last Admin Dose Admin Acetaminophen (Tylenol Tab) 650 mg Q6HP PRN PO HEADACHE or DISCOMFORT 01/10/20 20:30 02/08/20 08:41 Acetazolamide (Diamox Sequels) 500 mg BID PO 01/10/20 21:00 02/23/20 08:34 Acetazolamide (Diamox) 500 mg BID PO 01/10/20 09:00 01/10/20 22:33 DC 01/10/20 08:29 Acyclovir (Zovirax) 400 mg BID PO 01/10/20 09:00 01/10/20 22:33 DC 01/10/20 08:22 Acyclovir (Zovirax) 400 mg BID PO 01/10/20 21:00 02/23/20 08:36 Al Hydrox/Mg Hydrox/Simethicone (Mylanta) 30 ml Q4HP PRN PO HEARTBURN/INDIGESTION 01/10/20 20:30 02/17/20 22:05 Albuterol Sulfate (Proventil, Ventolin Hfa) 2 puff Q2HP PRN INH SHORTNESS OF BREATH 01/11/20 12:15 01/20/20 08:22 Bacitracin (Bacitracin Oint) apply to left arm lacerations TID TOP 01/11/20 21:00 02/20/20 21:51 Baclofen (Lioresal) 10 mg TID PO 01/16/20 16:00 02/23/20 08:40 Baclofen (Lioresal) 10 mg TIDP PRN PO MUSCLE SPASMS 01/10/20 22:45 01/16/20 11:38 DC 01/16/20 08:51 Brexpiprazole (Rexulti) 0.5 mg DAILY PO 02/01/20 09:00 02/06/20 12:33 DC 02/06/20 09:52 Brexpiprazole (Rexulti) 1 mg DAILY PO 02/07/20 09:00 02/09/20 15:59 DC 02/09/20 10:09 Clonazepam (KlonoPIN) 1 mg TID PRN PO ANXIETY/AGITATION 02/08/20 16:30 02/09/20 15:59 DC 02/09/20 09:27 Clozapine (Clozaril) 12.5 mg BID PO 02/09/20 21:00 02/10/20 13:31 DC 02/10/20 08:33 Clozapine (Clozaril) 25 mg QHS PO 02/11/20 21:00 02/13/20 11:00 DC 02/12/20 20:42 Clozapine (Clozaril) 50 mg QHS PO 02/13/20 21:00 02/14/20 13:31 DC 02/13/20 20:02 Clozapine (Clozaril) 75 mg QHS PO 02/14/20 21:00 02/17/20 12:57 DC 02/16/20 22:11 Clozapine (Clozaril) 100 mg QHS PO 01/10/20 21:00 01/20/20 17:14 DC 01/19/20 20:53 Clozapine (Clozaril) 100 mg QHS PO 02/17/20 21:00 02/22/20 20:55 Clozapine (Clozaril) 125 mg QHS PO 01/20/20 21:00 01/25/20 11:52 DC 01/24/20 20:33 Clozapine (Clozaril) 150 mg QHS PO 01/20/20 21:00 01/20/20 17:16 DC Clozapine (Clozaril) 150 mg QHS PO 01/25/20 21:00 01/31/20 13:28 DC 01/30/20 20:47 Diphenhydramine HCl (Benadryl) 25 mg Q4H PO 02/15/20 13:00 02/23/20 08:40 Docusate Sodium (Colace) 100 mg DAILY PO 01/11/20 09:00 02/10/20 13:12 DC 02/09/20 09:49 Fish Oil ([place]-3 (1000mg)) 1 cap DAILY PO 01/10/20 09:00 01/10/20 22:33 DC 01/10/20 08:29 Fish Oil ([place]-3 (1000mg)) 1 cap DAILY PO 01/11/20 09:00 02/23/20 08:40 Fluoxetine HCl (PROzac) 20 mg DAILY PO 01/10/20 09:00 01/10/20 22:33 DC 01/10/20 08:22 Fluoxetine HCl (PROzac) 20 mg DAILY PO 01/11/20 09:00 01/12/20 12:40 DC 01/12/20 08:33 Fluoxetine HCl (PROzac) 30 mg DAILY PO 01/13/20 09:00 01/16/20 11:35 DC 01/16/20 08:50 Fluoxetine HCl (PROzac) 40 mg DAILY PO 01/17/20 09:00 02/22/20 08:55 Folic Acid (Folic Acid) 1 mg DAILY PO 01/10/20 09:00 01/10/20 20:27 DC 01/10/20 08:23 Folic Acid (Folic Acid) 1 mg DAILY PO 01/11/20 09:00 02/23/20 08:36 Folic Acid (Folic Acid) 1 mg DAILY PO 01/11/20 09:00 Cancel Heparin Sodium (Heparin (Flush)) 500 units Q30D@09 IV 02/01/20 09:00 02/01/20 15:33 Home Med (Med Rec Complete!) ASDIRECTED XX 01/10/20 21:45 01/10/20 21:35 DC Hydroxyzine HCl (Atarax) 50 mg Q6HP PRN PO anxiety 01/19/20 17:00 01/24/20 14:12 DC 01/24/20 12:58 Hydroxyzine HCl (Atarax) 50 mg QID PO 01/10/20 13:00 01/10/20 22:33 DC 01/10/20 17:03 Hydroxyzine HCl (Atarax) 50 mg QID PO 01/11/20 13:00 01/19/20 16:52 DC 01/19/20 15:53 Hydroxyzine HCl (Atarax) 50 mg QIDP PRN PO ANXIETY 01/10/20 22:45 01/11/20 12:19 DC 01/11/20 08:37 Hydroxyzine HCl (Atarax) 100 mg BID PO 01/19/20 21:00 01/20/20 11:16 DC 01/20/20 08:25 Hydroxyzine HCl (Atarax) 100 mg BID@0900,1500 PO 01/20/20 15:00 01/31/20 13:28 DC 01/31/20 08:10 Ibuprofen (Advil) 400 mg Q6HP PRN PO PAIN 02/05/20 15:00 02/07/20 18:04 Loperamide HCl (Imodium) 2 mg ASDIRECTED PRN PO DIARRHEA 02/03/20 19:30 02/22/20 08:49 Lorazepam (Ativan) 2 mg ASDIRECTED PRN PO SEE PROTOCOL 01/10/20 20:30 01/11/20 16:44 DC Magnesium Hydroxide (Milk Of Magnesia) 30 ml DAILYPRN PRN PO CONSTIPATION 01/10/20 20:30 02/10/20 13:12 DC Meloxicam (Mobic) 15 mg DAILY PO 01/11/20 09:00 02/23/20 08:36 Mirtazapine (Remeron) 30 mg QHS PO 01/10/20 21:00 01/31/20 13:28 DC 01/30/20 20:48 Miscellaneous (Unresolved Clarification Entry) SEE LABEL COMMENTS DAILY XX 01/15/20 09:00 01/15/20 11:17 DC Multivitamins (Theragram-M) 1 tab DAILY PO 01/11/20 09:00 02/23/20 09:00 Mycophenolate Mofetil (Cellcept) 500 mg TID PO 01/10/20 09:00 01/10/20 22:33 DC 01/10/20 17:04 Mycophenolate Mofetil (Cellcept) 1,000 mg TID PO 01/10/20 21:00 02/23/20 08:34 Naltrexone HCl (Revia) 50 mg BID PO 01/10/20 09:00 01/10/20 22:33 DC 01/10/20 08:28 Naltrexone HCl (Revia) 50 mg BID PO 01/10/20 21:00 02/23/20 08:40 Olanzapine (ZyPREXA ZYDIS) 5 mg Q4HP PRN PO ANXIETY/AGITATION 01/11/20 16:45 01/19/20 16:55 DC 01/19/20 15:56 Omeprazole (PriLOSEC) 20 mg DAILY PO 01/10/20 09:00 01/10/20 22:33 DC 01/10/20 08:21 Omeprazole (PriLOSEC) 20 mg DAILY PO 01/11/20 09:00 02/23/20 08:36 Oxazepam (Serax) 10 mg BIDP PRN PO ANXIETY 02/03/20 12:00 02/20/20 17:11 Oxazepam (Serax) 10 mg DAILYPRN PRN PO ANXIETY 01/31/20 13:30 02/03/20 11:55 DC 02/03/20 06:44 Potassium Chloride (Micro-K Extencaps) 20 meq DAILY PO 01/10/20 09:00 01/10/20 22:33 DC 01/10/20 08:22 Potassium Chloride (Micro-K Extencaps) 20 meq DAILY PO 01/11/20 09:00 02/22/20 08:50 Pramipexole Dihydrochloride (Mirapex) 0.125 mg QHS PO 02/15/20 21:00 02/17/20 12:57 DC 02/16/20 22:24 Pramipexole Dihydrochloride (Mirapex) 0.25 mg QHS PO 02/17/20 21:00 02/20/20 12:23 DC 02/19/20 20:00 Pramipexole Dihydrochloride (Mirapex) 0.5 mg QHS PO 02/20/20 21:00 02/21/20 13:34 DC 02/20/20 21:48 Pramipexole Dihydrochloride (Mirapex) 0.75 mg QHS PO 02/21/20 21:00 02/22/20 12:11 DC 02/21/20 21:52 Pramipexole Dihydrochloride (Mirapex) 1 mg QHS PO 02/22/20 21:00 02/22/20 20:54 Pyridostigmine [place] (Mestinon) 90 mg QID PO 01/10/20 09:00 01/10/20 22:33 DC 01/10/20 17:02 Pyridostigmine [place] (Mestinon) 90 mg QID PO 01/10/20 21:00 02/23/20 08:39 Ramelteon (Rozerem) 8 mg QHS PRN PO INSOMNIA 01/31/20 13:30 02/22/20 20:54 Senna (Senokot) 2 tab QHSP PRN PO CONSTIPATION 01/10/20 22:45 02/10/20 13:12 DC Sodium Chloride (Saline Lock Flush) 10 ml Q30D IV 02/01/20 09:00 02/01/20 15:33 Tamoxifen Citrate (Nolvadex) 20 mg DAILY PO 01/10/20 09:00 01/10/20 22:33 DC 01/10/20 08:31 Tamoxifen Citrate (Nolvadex) 20 mg DAILY PO 01/11/20 09:00 01/26/20 16:25 DC 01/26/20 08:08 Tamoxifen Citrate (Nolvadex) 20 mg DAILY PO 02/18/20 09:00 02/23/20 08:34 Thiamine HCl (Thiamine HCl) 100 mg BID PO 01/10/20 21:00 01/13/20 20:59 DC 01/13/20 08:03 Torsemide (Demadex) 20 mg DAILY PO 01/10/20 09:00 01/10/20 22:33 DC 01/10/20 08:22 Torsemide (Demadex) 20 mg DAILY PO 01/11/20 09:00 01/19/20 16:37 DC 01/19/20 08:05 Torsemide (Demadex) 40 mg DAILY PO 01/20/20 09:00 02/10/20 13:01 DC 02/10/20 08:33 Torsemide (Demadex) 40 mg DAILY PO 02/12/20 09:00 02/23/20 08:40 Trazodone HCl (Desyrel) 50 mg QHSP PRN PO INSOMNIA 01/10/20 20:30 01/31/20 13:29 DC 01/30/20 20:47 Venlafaxine HCl (Effexor Xr) 225 mg DAILY PO 01/11/20 09:00 02/22/20 08:53 Venlafaxine HCl (Effexor) 225 mg DAILY PO 01/10/20 09:00 01/10/20 22:33 DC 01/10/20 08:28 Vitamin D (Vitamin D) 5,000 units DAILY PO 01/10/20 09:00 01/10/20 22:33 DC 01/10/20 08:20 Allergies Coded Allergies: amitriptyline (Verified Allergy, Severe, SWELLING, 11/29/19) Grass (Verified Allergy, Mild, ITCHY EYES,NOSE, 11/29/19) TAPE (Verified Allergy, Mild, RASH/BLISTER, 11/29/19) TREES (Verified Allergy, Mild, ITCHY EYES,NOSE, 11/29/19) adhesive (Verified Allergy, Unknown, 11/29/19) divalproex sodium (Verified Allergy, Unknown, 11/29/19) minocycline (Verified Allergy, Unknown, 11/29/19) mold (Verified Allergy, Unknown, 11/29/19) tetracycline (Verified Allergy, Unknown, 11/29/19) bupropion (Verified Adverse Reaction, Intermediate, ESOPHAGEAL SPASMS, 11/29/19) banana (Verified Adverse Reaction, Mild, VOMITING, 11/29/19) benztropine (Verified Adverse Reaction, Mild, BLURRED VISION, 11/29/19) clindamycin (Verified Adverse Reaction, Mild, HEART BURN, 11/29/19) gabapentin (Verified Adverse Reaction, Mild, extreme weakness, 11/29/19) metaxalone (Verified Adverse Reaction, Mild, itching, 11/29/19) pregabalin (Verified Adverse Reaction, Mild, EDEMA, 11/29/19) sulfamethoxazole (Verified Adverse Reaction, Mild, DIARRHEA, 11/29/19) tizanidine (Verified Adverse Reaction, Mild, ITCHING, 11/29/19) trazodone (Verified Adverse Reaction, Mild, EDEMA, 11/29/19) trimethoprim (Verified Adverse Reaction, Mild, DIARRHEA, 11/29/19) vilazodone (Verified Adverse Reaction, Mild, MOOD CHANGES, 11/29/19) cyclobenzaprine (Verified Adverse Reaction, Unknown, IRRITABILITY, 11/29/19) valproic acid (Unverified Adverse Reaction, Unknown, DOES NOT METABOLIZE, 11/29/19) MANJULA ALBRIGHT DO Feb 23, 2020 10:43
[2020-02-23 17:01] VITALS: BP 110/80
[2020-02-23] MEDS ORDERED: BUPRENORPHINE/NALOXONE 2-0.5MG SUBLINGUAL TABLET(SUBOXONE) SL ONE (18:00)
[2020-02-23] MEDS: RAMELTEON 8 MG TAB (ROZEREM) PO PRN (20:45)
[2020-02-24] MEDS: diphenhydrAMINE 25MG CAP PO SCH ×6 (00:39→21:12)
[2020-02-24 06:21] VITALS: BP 143/67
[2020-02-24] MEDS: OMEPRAZOLE 20 MG CAP PO SCH (08:40)
[2020-02-24] MEDS: MULTIVITAMINS/MINERALS THERAP 1 TAB PO SCH (08:40)
[2020-02-24] MEDS: FOLIC ACID 1 MG TAB PO SCH (08:40)
[2020-02-24] MEDS: POTASSIUM CHLORIDE 10 MEQ SR TABLET PO SCH (08:41)
[2020-02-24] MEDS: VENLAFAXINE **XR** 75MG CAPSULE PO SCH (08:41)
[2020-02-24] MEDS: BACLOFEN 10 MG TAB PO SCH ×3 (08:41→21:13)
[2020-02-24] MEDS: MYCOPHENOLATE MOFETIL 250 MG CAP (J7517) PO SCH ×3 (08:41→21:12)
[2020-02-24] MEDS: MELOXICAM (MOBIC) 7.5 MG TAB PO SCH (08:42)
[2020-02-24] MEDS: FLUoxetine 20 MG CAP PO SCH (08:42)
[2020-02-24] MEDS: ACYCLOVIR 200 MG CAPSULE PO SCH ×2 (08:43→21:13)
[2020-02-24] MEDS: BUPRENORPHINE/NALOXONE 2-0.5MG SUBLINGUAL TABLET(SUBOXONE) SL SCH (08:43)
[2020-02-24] MEDS: PYRIDOSTIGMINE 60 MG TAB PO SCH ×4 (08:43→21:13)
[2020-02-24] MEDS: OMEGA-3 1000MG CAPSULE PO SCH (08:44)
[2020-02-24] MEDS: TAMOXIFEN CITRATE 10 MG TAB PO SCH (08:44)
[2020-02-24] MEDS: acetaZOLAMIDE 500 MG ER CAP PO SCH ×2 (08:44→21:12)
[2020-02-24] MEDS: TORSEMIDE 20 MG TAB PO SCH (09:00)
[2020-02-24] MEDS: BACITRACIN OINTMENT 30GM TUBE TOP SCH ×3 (09:00→21:00)
--- NOTE | 2020-02-24 09:46 | MHIPNPDOC ---
[facility] Progress Note Progress Note DATE OF SERVICE: 02/24/20 HISTORY: The patient has met with today, she reports that she is doing better and feeling improved, she reports that she is more talkative, had some mild nausea but otherwise reports that she is doing better. Staff reports she is generally engaging better making some progress since starting on the Suboxone. She reports that she is conscious but generally has been more gregarious and talkative. She has been off the sitter without any major issues VITAL SIGNS: See below. NEW TEST RESULTS: NA. CURRENT MEDICATIONS: See below. MENTAL STATUS EXAMINATION: General: fair hygiene Speech: [Spontaneous and fluid] Thought processes: [Linear and logical] Thought content: More future orientated Abstract reasoning, and computation: [Intact] Description of associations: [Intact] Description of abnormal or psychotic thoughts. Denies any suicidal or homicidal thoughts judgment: Improved Insight: Improved Orientation: [Alert and orientated 3] Recent and remote memory: [Intact] Attention span and concentration: [Intact] Fund of knowledge: [Adequate] Mood: "Fine" Affect: More euthymic DIAGNOSES: 1. MDD, recurrent, severe without psychotic features. 2. Borderline personality disorder ASSESSMENT: Patient appears to be making significant improvement on the Suboxone, will observe over the weekend, appears to be making very brisk progress MANAGEMENT PLAN: Continue Effexor 225 Milgram's daily Continue Prozac 40 mg daily Continue Suboxone 2 mg daily, monitor for nausea TIME SPENT: 15 minutes. Vital Signs Vital Signs Date Time Temp Pulse Resp B/P (MAP) Pulse Ox O2 Delivery O2 Flow Rate FiO2 02/24/20 06:21 99.0 83 18 143/67 (92) 97 Room Air Current Medications Current Medications Medications (Trade) Dose Ordered Sig/Ben Route PRN Reason Start Time Stop Time Status Last Admin Dose Admin Acetaminophen (Tylenol Tab) 650 mg Q6HP PRN PO HEADACHE or DISCOMFORT 01/10/20 20:30 02/08/20 08:41 Acetazolamide (Diamox Sequels) 500 mg BID PO 01/10/20 21:00 02/24/20 08:44 Acetazolamide (Diamox) 500 mg BID PO 01/10/20 09:00 01/10/20 22:33 DC 01/10/20 08:29 Acyclovir (Zovirax) 400 mg BID PO 01/10/20 09:00 01/10/20 22:33 DC 01/10/20 08:22 Acyclovir (Zovirax) 400 mg BID PO 01/10/20 21:00 02/24/20 08:43 Al Hydrox/Mg Hydrox/Simethicone (Mylanta) 30 ml Q4HP PRN PO HEARTBURN/INDIGESTION 01/10/20 20:30 02/17/20 22:05 Albuterol Sulfate (Proventil, Ventolin Hfa) 2 puff Q2HP PRN INH SHORTNESS OF BREATH 01/11/20 12:15 01/20/20 08:22 Bacitracin (Bacitracin Oint) apply to left arm lacerations TID TOP 01/11/20 21:00 02/20/20 21:51 Baclofen (Lioresal) 10 mg TID PO 01/16/20 16:00 02/24/20 08:41 Baclofen (Lioresal) 10 mg TIDP PRN PO MUSCLE SPASMS 01/10/20 22:45 01/16/20 11:38 DC 01/16/20 08:51 Brexpiprazole (Rexulti) 0.5 mg DAILY PO 02/01/20 09:00 02/06/20 12:33 DC 02/06/20 09:52 Brexpiprazole (Rexulti) 1 mg DAILY PO 02/07/20 09:00 02/09/20 15:59 DC 02/09/20 10:09 Buprenorphine/ Naloxone (Suboxone 2/ 0.5mg) 1 tab DAILY SL 02/24/20 09:00 02/24/20 08:43 Clonazepam (KlonoPIN) 1 mg TID PRN PO ANXIETY/AGITATION 02/08/20 16:30 02/09/20 15:59 DC 02/09/20 09:27 Clozapine (Clozaril) 12.5 mg BID PO 02/09/20 21:00 02/10/20 13:31 DC 02/10/20 08:33 Clozapine (Clozaril) 25 mg QHS PO 02/11/20 21:00 02/13/20 11:00 DC 02/12/20 20:42 Clozapine (Clozaril) 50 mg QHS PO 02/13/20 21:00 02/14/20 13:31 DC 02/13/20 20:02 Clozapine (Clozaril) 75 mg QHS PO 02/14/20 21:00 02/17/20 12:57 DC 02/16/20 22:11 Clozapine (Clozaril) 100 mg QHS PO 01/10/20 21:00 01/20/20 17:14 DC 01/19/20 20:53 Clozapine (Clozaril) 100 mg QHS PO 02/17/20 21:00 02/23/20 17:49 DC 02/22/20 20:55 Clozapine (Clozaril) 125 mg QHS PO 01/20/20 21:00 01/25/20 11:52 DC 01/24/20 20:33 Clozapine (Clozaril) 150 mg QHS PO 01/20/20 21:00 01/20/20 17:16 DC Clozapine (Clozaril) 150 mg QHS PO 01/25/20 21:00 01/31/20 13:28 DC 01/30/20 20:47 Diphenhydramine HCl (Benadryl) 25 mg Q4H PO 02/15/20 13:00 02/24/20 08:43 Docusate Sodium (Colace) 100 mg DAILY PO 01/11/20 09:00 02/10/20 13:12 DC 02/09/20 09:49 Fish Oil ([place]-3 (1000mg)) 1 cap DAILY PO 01/10/20 09:00 01/10/20 22:33 DC 01/10/20 08:29 Fish Oil ([place]-3 (1000mg)) 1 cap DAILY PO 01/11/20 09:00 02/24/20 08:44 Fluoxetine HCl (PROzac) 20 mg DAILY PO 01/10/20 09:00 01/10/20 22:33 DC 01/10/20 08:22 Fluoxetine HCl (PROzac) 20 mg DAILY PO 01/11/20 09:00 01/12/20 12:40 DC 01/12/20 08:33 Fluoxetine HCl (PROzac) 30 mg DAILY PO 01/13/20 09:00 01/16/20 11:35 DC 01/16/20 08:50 Fluoxetine HCl (PROzac) 40 mg DAILY PO 01/17/20 09:00 02/24/20 08:42 Folic Acid (Folic Acid) 1 mg DAILY PO 01/10/20 09:00 01/10/20 20:27 DC 01/10/20 08:23 Folic Acid (Folic Acid) 1 mg DAILY PO 01/11/20 09:00 02/24/20 08:40 Folic Acid (Folic Acid) 1 mg DAILY PO 01/11/20 09:00 Cancel Heparin Sodium (Heparin (Flush)) 500 units Q30D@09 IV 02/01/20 09:00 02/01/20 15:33 Home Med (Med Rec Complete!) ASDIRECTED XX 01/10/20 21:45 01/10/20 21:35 DC Hydroxyzine HCl (Atarax) 50 mg Q6HP PRN PO anxiety 01/19/20 17:00 01/24/20 14:12 DC 01/24/20 12:58 Hydroxyzine HCl (Atarax) 50 mg QID PO 01/10/20 13:00 01/10/20 22:33 DC 01/10/20 17:03 Hydroxyzine HCl (Atarax) 50 mg QID PO 01/11/20 13:00 01/19/20 16:52 DC 01/19/20 15:53 Hydroxyzine HCl (Atarax) 50 mg QIDP PRN PO ANXIETY 01/10/20 22:45 01/11/20 12:19 DC 01/11/20 08:37 Hydroxyzine HCl (Atarax) 100 mg BID PO 01/19/20 21:00 01/20/20 11:16 DC 01/20/20 08:25 Hydroxyzine HCl (Atarax) 100 mg BID@0900,1500 PO 01/20/20 15:00 01/31/20 13:28 DC 01/31/20 08:10 Ibuprofen (Advil) 400 mg Q6HP PRN PO PAIN 02/05/20 15:00 02/07/20 18:04 Loperamide HCl (Imodium) 2 mg ASDIRECTED PRN PO DIARRHEA 02/03/20 19:30 02/22/20 08:49 Lorazepam (Ativan) 2 mg ASDIRECTED PRN PO SEE PROTOCOL 01/10/20 20:30 01/11/20 16:44 DC Magnesium Hydroxide (Milk Of Magnesia) 30 ml DAILYPRN PRN PO CONSTIPATION 01/10/20 20:30 02/10/20 13:12 DC Meloxicam (Mobic) 15 mg DAILY PO 01/11/20 09:00 02/24/20 08:42 Mirtazapine (Remeron) 30 mg QHS PO 01/10/20 21:00 01/31/20 13:28 DC 01/30/20 20:48 Miscellaneous (Unresolved Clarification Entry) SEE LABEL COMMENTS DAILY XX 01/15/20 09:00 01/15/20 11:17 DC Multivitamins (Theragram-M) 1 tab DAILY PO 01/11/20 09:00 02/24/20 08:40 Mycophenolate Mofetil (Cellcept) 500 mg TID PO 01/10/20 09:00 01/10/20 22:33 DC 01/10/20 17:04 Mycophenolate Mofetil (Cellcept) 1,000 mg TID PO 01/10/20 21:00 02/24/20 08:41 Naltrexone HCl (Revia) 50 mg BID PO 01/10/20 09:00 01/10/20 22:33 DC 01/10/20 08:28 Naltrexone HCl (Revia) 50 mg BID PO 01/10/20 21:00 02/23/20 17:49 DC 02/23/20 08:40 Olanzapine (ZyPREXA ZYDIS) 5 mg Q4HP PRN PO ANXIETY/AGITATION 01/11/20 16:45 01/19/20 16:55 DC 01/19/20 15:56 Omeprazole (PriLOSEC) 20 mg DAILY PO 01/10/20 09:00 01/10/20 22:33 DC 01/10/20 08:21 Omeprazole (PriLOSEC) 20 mg DAILY PO 01/11/20 09:00 02/24/20 08:40 Oxazepam (Serax) 10 mg BIDP PRN PO ANXIETY 02/03/20 12:00 02/23/20 17:49 DC 02/20/20 17:11 Oxazepam (Serax) 10 mg DAILYPRN PRN PO ANXIETY 01/31/20 13:30 02/03/20 11:55 DC 02/03/20 06:44 Potassium Chloride (Micro-K Extencaps) 20 meq DAILY PO 01/10/20 09:00 01/10/20 22:33 DC 01/10/20 08:22 Potassium Chloride (Micro-K Extencaps) 20 meq DAILY PO 01/11/20 09:00 02/24/20 08:41 Pramipexole Dihydrochloride (Mirapex) 0.125 mg QHS PO 02/15/20 21:00 02/17/20 12:57 DC 02/16/20 22:24 Pramipexole Dihydrochloride (Mirapex) 0.25 mg QHS PO 02/17/20 21:00 02/20/20 12:23 DC 02/19/20 20:00 Pramipexole Dihydrochloride (Mirapex) 0.5 mg QHS PO 02/20/20 21:00 02/21/20 13:34 DC 02/20/20 21:48 Pramipexole Dihydrochloride (Mirapex) 0.75 mg QHS PO 02/21/20 21:00 02/22/20 12:11 DC 02/21/20 21:52 Pramipexole Dihydrochloride (Mirapex) 1 mg QHS PO 02/22/20 21:00 02/23/20 17:49 DC 02/22/20 20:54 Pyridostigmine [place] (Mestinon) 90 mg QID PO 01/10/20 09:00 01/10/20 22:33 DC 01/10/20 17:02 Pyridostigmine [place] (Mestinon) 90 mg QID PO 01/10/20 21:00 02/24/20 08:43 Ramelteon (Rozerem) 8 mg QHS PRN PO INSOMNIA 01/31/20 13:30 02/23/20 20:45 Senna (Senokot) 2 tab QHSP PRN PO CONSTIPATION 01/10/20 22:45 02/10/20 13:12 DC Sodium Chloride (Saline Lock Flush) 10 ml Q30D IV 02/01/20 09:00 02/01/20 15:33 Tamoxifen Citrate (Nolvadex) 20 mg DAILY PO 01/10/20 09:00 01/10/20 22:33 DC 01/10/20 08:31 Tamoxifen Citrate (Nolvadex) 20 mg DAILY PO 01/11/20 09:00 01/26/20 16:25 DC 01/26/20 08:08 Tamoxifen Citrate (Nolvadex) 20 mg DAILY PO 02/18/20 09:00 02/24/20 08:44 Thiamine HCl (Thiamine HCl) 100 mg BID PO 01/10/20 21:00 01/13/20 20:59 DC 01/13/20 08:03 Torsemide (Demadex) 20 mg DAILY PO 01/10/20 09:00 01/10/20 22:33 DC 01/10/20 08:22 Torsemide (Demadex) 20 mg DAILY PO 01/11/20 09:00 01/19/20 16:37 DC 01/19/20 08:05 Torsemide (Demadex) 40 mg DAILY PO 01/20/20 09:00 02/10/20 13:01 DC 02/10/20 08:33 Torsemide (Demadex) 40 mg DAILY PO 02/12/20 09:00 02/23/20 08:40 Trazodone HCl (Desyrel) 50 mg QHSP PRN PO INSOMNIA 01/10/20 20:30 01/31/20 13:29 DC 01/30/20 20:47 Venlafaxine HCl (Effexor Xr) 225 mg DAILY PO 01/11/20 09:00 02/24/20 08:41 Venlafaxine HCl (Effexor) 225 mg DAILY PO 01/10/20 09:00 01/10/20 22:33 DC 01/10/20 08:28 Vitamin D (Vitamin D) 5,000 units DAILY PO 01/10/20 09:00 01/10/20 22:33 DC 01/10/20 08:20 Allergies Coded Allergies: amitriptyline (Verified Allergy, Severe, SWELLING, 11/29/19) Grass (Verified Allergy, Mild, ITCHY EYES,NOSE, 11/29/19) TAPE (Verified Allergy, Mild, RASH/BLISTER, 11/29/19) TREES (Verified Allergy, Mild, ITCHY EYES,NOSE, 11/29/19) adhesive (Verified Allergy, Unknown, 11/29/19) divalproex sodium (Verified Allergy, Unknown, 11/29/19) minocycline (Verified Allergy, Unknown, 11/29/19) mold (Verified Allergy, Unknown, 11/29/19) tetracycline (Verified Allergy, Unknown, 11/29/19) bupropion (Verified Adverse Reaction, Intermediate, ESOPHAGEAL SPASMS, 11/29/19) banana (Verified Adverse Reaction, Mild, VOMITING, 11/29/19) benztropine (Verified Adverse Reaction, Mild, BLURRED VISION, 11/29/19) clindamycin (Verified Adverse Reaction, Mild, HEART BURN, 11/29/19) gabapentin (Verified Adverse Reaction, Mild, extreme weakness, 11/29/19) metaxalone (Verified Adverse Reaction, Mild, itching, 11/29/19) pregabalin (Verified Adverse Reaction, Mild, EDEMA, 11/29/19) sulfamethoxazole (Verified Adverse Reaction, Mild, DIARRHEA, 11/29/19) tizanidine (Verified Adverse Reaction, Mild, ITCHING, 11/29/19) trazodone (Verified Adverse Reaction, Mild, EDEMA, 11/29/19) trimethoprim (Verified Adverse Reaction, Mild, DIARRHEA, 11/29/19) vilazodone (Verified Adverse Reaction, Mild, MOOD CHANGES, 11/29/19) cyclobenzaprine (Verified Adverse Reaction, Unknown, IRRITABILITY, 11/29/19) valproic acid (Unverified Adverse Reaction, Unknown, DOES NOT METABOLIZE, 11/29/19) MANJULA ALBRIGHT DO Feb 24, 2020 09:46
--- NOTE | 2020-02-24 12:37 | IPNPDOC ---
Date Seen The patient was seen on 02/24/20. Progress Note SUBJECTIVE: I was asked to follow up on patient as she is having increased lower ext swelling. She has history of lymphedema/swelling which is chronic; however, diuretic was held since 02/10/20 due to increased Cr. She was also having diarrhea 2/2 to bowel regimen and this was believed to have increased her Cr at the time. She denies worsening diarrhea, decreased PO intake, n/v, abdominal pain since this previous evaluation. Labs are ordered today to follow up. OBJECTIVE: PHYSICAL EXAMINATION: VS: Please see below. CONSTITUTIONAL: NAD, AAO x 3 EYES: PERRLA, EOM intact HENT, MOUTH: Normocephalic, atraumatic, moist mucous membranes, NECK: SUPPLE, no JVD, no lymphadenopathy, no carotid bruit CV: Regular rate and rhythm, S1S2 normal, no murmurs/rubs/gallops RESPIRATORY: Clear to auscultation bilaterally, no rales/rhonchi/wheezes GI: obese abdomen, BS positive in 4 quadrants, soft, nontender, nondistended, no rebound or guarding, no organomegaly : Deferred MUSCULOSKELETAL: Normal ROM. No cyanosis, clubbing, swelling, joint deformity EXT: +2 pitting edema in the lower ext , no erythema, tenderness to palpation INTEGUMENTARY: Numerous long cuts on bilateral anterior forearms, scabbed and some are bleeding. Multiple tattoos. NEUROLOGIC: Cranial Nerves II-XII are intact, no focal deficits PSYCHIATRIC: Mood and affect are normal LABORATORY DATA: Please see below IMAGING: None ASSESSMENT: 39-year-old female with past medical history of neuralgia ophthalmicus, myasthenia gravis, fibromyalgia, chronic pain, depression, anxiet y, borderline personality disorder, bipolar disorder who was admitted to [facility] for unspecified depressive disorder. PLAN: 1. Lower extremity edema/lymphedema. -+ 2 pitting edema, states that compression stockings do not fit her here. Cannot do JAILENE bandages due to rules in [facility] -Will recheck Cr again today, if normalized c/w home torsemide. -Encourage elevation of feet when resting. 2. YAMILETH likely 2/2 to diarrhea, torsemide -Cr 02/10/20 1.3, baseline is wnl -Repeat labs today -Encouarge PO hydration throughout day. 3. MDD. -Plan per psychiatry. 4. Borderline personality disorder -Plan per psychiatry. All other chronic issues are stable. DISPOSITION: Will recheck labs and follow up later today. There will be no need to follow patient if Cr is normalized so if so, will sign off. VS, I&O, 24H, Fishbone Vital Signs/I&O Vital Signs Date Time Temp Pulse Resp B/P (MAP) Pulse Ox O2 Delivery O2 Flow Rate FiO2 02/24/20 06:21 99.0 83 18 143/67 (92) 97 Room Air Current Medications Current Medications Medications (Trade) Dose Ordered Sig/Ben Route PRN Reason Start Time Stop Time Status Last Admin Dose Admin Acetaminophen (Tylenol Tab) 650 mg Q6HP PRN PO HEADACHE or DISCOMFORT 01/10/20 20:30 02/08/20 08:41 Acetazolamide (Diamox Sequels) 500 mg BID PO 01/10/20 21:00 02/24/20 08:44 Acetazolamide (Diamox) 500 mg BID PO 01/10/20 09:00 01/10/20 22:33 DC 01/10/20 08:29 Acyclovir (Zovirax) 400 mg BID PO 01/10/20 09:00 01/10/20 22:33 DC 01/10/20 08:22 Acyclovir (Zovirax) 400 mg BID PO 01/10/20 21:00 02/24/20 08:43 Al Hydrox/Mg Hydrox/Simethicone (Mylanta) 30 ml Q4HP PRN PO HEARTBURN/INDIGESTION 01/10/20 20:30 02/17/20 22:05 Albuterol Sulfate (Proventil, Ventolin Hfa) 2 puff Q2HP PRN INH SHORTNESS OF BREATH 01/11/20 12:15 01/20/20 08:22 Bacitracin (Bacitracin Oint) apply to left arm lacerations TID TOP 01/11/20 21:00 02/20/20 21:51 Baclofen (Lioresal) 10 mg TID PO 01/16/20 16:00 02/24/20 08:41 Baclofen (Lioresal) 10 mg TIDP PRN PO MUSCLE SPASMS 01/10/20 22:45 01/16/20 11:38 DC 01/16/20 08:51 Brexpiprazole (Rexulti) 0.5 mg DAILY PO 02/01/20 09:00 02/06/20 12:33 DC 02/06/20 09:52 Brexpiprazole (Rexulti) 1 mg DAILY PO 02/07/20 09:00 02/09/20 15:59 DC 02/09/20 10:09 Buprenorphine/ Naloxone (Suboxone 2/ 0.5mg) 1 tab DAILY SL 02/24/20 09:00 02/24/20 08:43 Clonazepam (KlonoPIN) 1 mg TID PRN PO ANXIETY/AGITATION 02/08/20 16:30 02/09/20 15:59 DC 02/09/20 09:27 Clozapine (Clozaril) 12.5 mg BID PO 02/09/20 21:00 02/10/20 13:31 DC 02/10/20 08:33 Clozapine (Clozaril) 25 mg QHS PO 02/11/20 21:00 02/13/20 11:00 DC 02/12/20 20:42 Clozapine (Clozaril) 50 mg QHS PO 02/13/20 21:00 02/14/20 13:31 DC 02/13/20 20:02 Clozapine (Clozaril) 75 mg QHS PO 02/14/20 21:00 02/17/20 12:57 DC 02/16/20 22:11 Clozapine (Clozaril) 100 mg QHS PO 01/10/20 21:00 01/20/20 17:14 DC 01/19/20 20:53 Clozapine (Clozaril) 100 mg QHS PO 02/17/20 21:00 02/23/20 17:49 DC 02/22/20 20:55 Clozapine (Clozaril) 125 mg QHS PO 01/20/20 21:00 01/25/20 11:52 DC 01/24/20 20:33 Clozapine (Clozaril) 150 mg QHS PO 01/20/20 21:00 01/20/20 17:16 DC Clozapine (Clozaril) 150 mg QHS PO 01/25/20 21:00 01/31/20 13:28 DC 01/30/20 20:47 Diphenhydramine HCl (Benadryl) 25 mg Q4H PO 02/15/20 13:00 02/24/20 08:43 Docusate Sodium (Colace) 100 mg DAILY PO 01/11/20 09:00 02/10/20 13:12 DC 02/09/20 09:49 Fish Oil ([place]-3 (1000mg)) 1 cap DAILY PO 01/10/20 09:00 01/10/20 22:33 DC 01/10/20 08:29 Fish Oil ([place]-3 (1000mg)) 1 cap DAILY PO 01/11/20 09:00 02/24/20 08:44 Fluoxetine HCl (PROzac) 20 mg DAILY PO 01/10/20 09:00 01/10/20 22:33 DC 01/10/20 08:22 Fluoxetine HCl (PROzac) 20 mg DAILY PO 01/11/20 09:00 01/12/20 12:40 DC 01/12/20 08:33 Fluoxetine HCl (PROzac) 30 mg DAILY PO 01/13/20 09:00 01/16/20 11:35 DC 01/16/20 08:50 Fluoxetine HCl (PROzac) 40 mg DAILY PO 01/17/20 09:00 02/24/20 08:42 Folic Acid (Folic Acid) 1 mg DAILY PO 01/10/20 09:00 01/10/20 20:27 DC 01/10/20 08:23 Folic Acid (Folic Acid) 1 mg DAILY PO 01/11/20 09:00 02/24/20 08:40 Folic Acid (Folic Acid) 1 mg DAILY PO 01/11/20 09:00 Cancel Heparin Sodium (Heparin (Flush)) 500 units Q30D@09 IV 02/01/20 09:00 02/01/20 15:33 Home Med (Med Rec Complete!) ASDIRECTED XX 01/10/20 21:45 01/10/20 21:35 DC Hydroxyzine HCl (Atarax) 50 mg Q6HP PRN PO anxiety 01/19/20 17:00 01/24/20 14:12 DC 01/24/20 12:58 Hydroxyzine HCl (Atarax) 50 mg QID PO 01/10/20 13:00 01/10/20 22:33 DC 01/10/20 17:03 Hydroxyzine HCl (Atarax) 50 mg QID PO 01/11/20 13:00 01/19/20 16:52 DC 01/19/20 15:53 Hydroxyzine HCl (Atarax) 50 mg QIDP PRN PO ANXIETY 01/10/20 22:45 01/11/20 12:19 DC 01/11/20 08:37 Hydroxyzine HCl (Atarax) 100 mg BID PO 01/19/20 21:00 01/20/20 11:16 DC 01/20/20 08:25 Hydroxyzine HCl (Atarax) 100 mg BID@0900,1500 PO 01/20/20 15:00 01/31/20 13:28 DC 01/31/20 08:10 Ibuprofen (Advil) 400 mg Q6HP PRN PO PAIN 02/05/20 15:00 02/07/20 18:04 Loperamide HCl (Imodium) 2 mg ASDIRECTED PRN PO DIARRHEA 02/03/20 19:30 02/22/20 08:49 Lorazepam (Ativan) 2 mg ASDIRECTED PRN PO SEE PROTOCOL 01/10/20 20:30 01/11/20 16:44 DC Magnesium Hydroxide (Milk Of Magnesia) 30 ml DAILYPRN PRN PO CONSTIPATION 01/10/20 20:30 02/10/20 13:12 DC Meloxicam (Mobic) 15 mg DAILY PO 01/11/20 09:00 02/24/20 08:42 Mirtazapine (Remeron) 30 mg QHS PO 01/10/20 21:00 01/31/20 13:28 DC 01/30/20 20:48 Miscellaneous (Unresolved Clarification Entry) SEE LABEL COMMENTS DAILY XX 01/15/20 09:00 01/15/20 11:17 DC Multivitamins (Theragram-M) 1 tab DAILY PO 01/11/20 09:00 02/24/20 08:40 Mycophenolate Mofetil (Cellcept) 500 mg TID PO 01/10/20 09:00 01/10/20 22:33 DC 01/10/20 17:04 Mycophenolate Mofetil (Cellcept) 1,000 mg TID PO 01/10/20 21:00 02/24/20 08:41 Naltrexone HCl (Revia) 50 mg BID PO 01/10/20 09:00 01/10/20 22:33 DC 01/10/20 08:28 Naltrexone HCl (Revia) 50 mg BID PO 01/10/20 21:00 02/23/20 17:49 DC 02/23/20 08:40 Olanzapine (ZyPREXA ZYDIS) 5 mg Q4HP PRN PO ANXIETY/AGITATION 01/11/20 16:45 01/19/20 16:55 DC 01/19/20 15:56 Omeprazole (PriLOSEC) 20 mg DAILY PO 01/10/20 09:00 01/10/20 22:33 DC 01/10/20 08:21 Omeprazole (PriLOSEC) 20 mg DAILY PO 01/11/20 09:00 02/24/20 08:40 Oxazepam (Serax) 10 mg BIDP PRN PO ANXIETY 02/03/20 12:00 02/23/20 17:49 DC 02/20/20 17:11 Oxazepam (Serax) 10 mg DAILYPRN PRN PO ANXIETY 01/31/20 13:30 02/03/20 11:55 DC 02/03/20 06:44 Potassium Chloride (Micro-K Extencaps) 20 meq DAILY PO 01/10/20 09:00 01/10/20 22:33 DC 01/10/20 08:22 Potassium Chloride (Micro-K Extencaps) 20 meq DAILY PO 01/11/20 09:00 02/24/20 08:41 Pramipexole Dihydrochloride (Mirapex) 0.125 mg QHS PO 02/15/20 21:00 02/17/20 12:57 DC 02/16/20 22:24 Pramipexole Dihydrochloride (Mirapex) 0.25 mg QHS PO 02/17/20 21:00 02/20/20 12:23 DC 02/19/20 20:00 Pramipexole Dihydrochloride (Mirapex) 0.5 mg QHS PO 02/20/20 21:00 02/21/20 13:34 DC 02/20/20 21:48 Pramipexole Dihydrochloride (Mirapex) 0.75 mg QHS PO 02/21/20 21:00 02/22/20 12:11 DC 02/21/20 21:52 Pramipexole Dihydrochloride (Mirapex) 1 mg QHS PO 02/22/20 21:00 02/23/20 17:49 DC 02/22/20 20:54 Pyridostigmine [place] (Mestinon) 90 mg QID PO 01/10/20 09:00 01/10/20 22:33 DC 01/10/20 17:02 Pyridostigmine [place] (Mestinon) 90 mg QID PO 01/10/20 21:00 02/24/20 08:43 Ramelteon (Rozerem) 8 mg QHS PRN PO INSOMNIA 01/31/20 13:30 02/23/20 20:45 Senna (Senokot) 2 tab QHSP PRN PO CONSTIPATION 01/10/20 22:45 02/10/20 13:12 DC Sodium Chloride (Saline Lock Flush) 10 ml Q30D IV 02/01/20 09:00 02/01/20 15:33 Tamoxifen Citrate (Nolvadex) 20 mg DAILY PO 01/10/20 09:00 01/10/20 22:33 DC 01/10/20 08:31 Tamoxifen Citrate (Nolvadex) 20 mg DAILY PO 01/11/20 09:00 01/26/20 16:25 DC 01/26/20 08:08 Tamoxifen Citrate (Nolvadex) 20 mg DAILY PO 02/18/20 09:00 02/24/20 08:44 Thiamine HCl (Thiamine HCl) 100 mg BID PO 01/10/20 21:00 01/13/20 20:59 DC 01/13/20 08:03 Torsemide (Demadex) 20 mg DAILY PO 01/10/20 09:00 01/10/20 22:33 DC 01/10/20 08:22 Torsemide (Demadex) 20 mg DAILY PO 01/11/20 09:00 01/19/20 16:37 DC 01/19/20 08:05 Torsemide (Demadex) 40 mg DAILY PO 01/20/20 09:00 02/10/20 13:01 DC 02/10/20 08:33 Torsemide (Demadex) 40 mg DAILY PO 02/12/20 09:00 02/23/20 08:40 Trazodone HCl (Desyrel) 50 mg QHSP PRN PO INSOMNIA 01/10/20 20:30 01/31/20 13:29 DC 01/30/20 20:47 Venlafaxine HCl (Effexor Xr) 225 mg DAILY PO 01/11/20 09:00 02/24/20 08:41 Venlafaxine HCl (Effexor) 225 mg DAILY PO 01/10/20 09:00 01/10/20 22:33 DC 01/10/20 08:28 Vitamin D (Vitamin D) 5,000 units DAILY PO 01/10/20 09:00 01/10/20 22:33 DC 01/10/20 08:20 Allergies Coded Allergies: amitriptyline (Verified Allergy, Severe, SWELLING, 11/29/19) Grass (Verified Allergy, Mild, ITCHY EYES,NOSE, 11/29/19) TAPE (Verified Allergy, Mild, RASH/BLISTER, 11/29/19) TREES (Verified Allergy, Mild, ITCHY EYES,NOSE, 11/29/19) adhesive (Verified Allergy, Unknown, 11/29/19) divalproex sodium (Verified Allergy, Unknown, 11/29/19) minocycline (Verified Allergy, Unknown, 11/29/19) mold (Verified Allergy, Unknown, 11/29/19) tetracycline (Verified Allergy, Unknown, 11/29/19) bupropion (Verified Adverse Reaction, Intermediate, ESOPHAGEAL SPASMS, 11/29/19) banana (Verified Adverse Reaction, Mild, VOMITING, 11/29/19) benztropine (Verified Adverse Reaction, Mild, BLURRED VISION, 11/29/19) clindamycin (Verified Adverse Reaction, Mild, HEART BURN, 11/29/19) gabapentin (Verified Adverse Reaction, Mild, extreme weakness, 11/29/19) metaxalone (Verified Adverse Reaction, Mild, itching, 11/29/19) pregabalin (Verified Adverse Reaction, Mild, EDEMA, 11/29/19) sulfamethoxazole (Verified Adverse Reaction, Mild, DIARRHEA, 11/29/19) tizanidine (Verified Adverse Reaction, Mild, ITCHING, 11/29/19) trazodone (Verified Adverse Reaction, Mild, EDEMA, 11/29/19) trimethoprim (Verified Adverse Reaction, Mild, DIARRHEA, 11/29/19) vilazodone (Verified Adverse Reaction, Mild, MOOD CHANGES, 11/29/19) cyclobenzaprine (Verified Adverse Reaction, Unknown, IRRITABILITY, 9/8/20) valproic acid (Unverified Adverse Reaction, Unknown, DOES NOT METABOLIZE, 11/29/19) Siobhan Chanel MD Feb 24, 2020 12:36
[2020-02-24 13:39] LABS: CREATININE FOR GFR 1.21 MG/DL (0.55-1.30); GLOMERULAR FILTRATION RATE 52.5 (>58); POTASSIUM SERUM 4.1 MEQ/L (3.5-5.1)
[2020-02-24 13:40] LABS: BILIRUBIN,TOTAL 0.3 MG/DL (0.2-1.0); CALCIUM LEVEL 8.9 MG/DL (8.5-10.1); TOTAL PROTEIN 7.1 GM/DL (6.4-8.2)
[2020-02-24] MEDS: ACETAMINOPHEN TAB 650MG DOSE (2X325MG) PO PRN (14:31)
[2020-02-24] MEDS: IBUPROFEN 400 MG TAB PO PRN (14:31)
[2020-02-24 16:00] VITALS: BP 117/72
[2020-02-24] MEDS: LOPERAMIDE 2 MG CAPLET PO PRN ×2 (16:01→16:55)
[2020-02-24] MEDS ORDERED: TORSEMIDE 20 MG TAB PO ONE (20:30)
[2020-02-24] MEDS: RAMELTEON 8 MG TAB (ROZEREM) PO PRN (21:12)
[2020-02-25] MEDS: diphenhydrAMINE 25MG CAP PO SCH ×6 (01:18→22:47)
[2020-02-25] MEDS: TORSEMIDE 20 MG TAB PO SCH ×2 (08:11→17:14)
[2020-02-25] MEDS: BUPRENORPHINE/NALOXONE 2-0.5MG SUBLINGUAL TABLET(SUBOXONE) SL SCH (08:22)
[2020-02-25] MEDS: MULTIVITAMINS/MINERALS THERAP 1 TAB PO SCH (08:23)
[2020-02-25] MEDS: FLUoxetine 20 MG CAP PO SCH (08:23)
[2020-02-25] MEDS: OMEPRAZOLE 20 MG CAP PO SCH (08:23)
[2020-02-25] MEDS: POTASSIUM CHLORIDE 10 MEQ SR TABLET PO SCH (08:24)
[2020-02-25] MEDS: TAMOXIFEN CITRATE 10 MG TAB PO SCH (08:24)
[2020-02-25] MEDS: acetaZOLAMIDE 500 MG ER CAP PO SCH ×2 (08:24→22:47)
[2020-02-25] MEDS: ACYCLOVIR 200 MG CAPSULE PO SCH ×2 (08:25→22:47)
[2020-02-25] MEDS: VENLAFAXINE **XR** 75MG CAPSULE PO SCH (08:25)
[2020-02-25] MEDS: FOLIC ACID 1 MG TAB PO SCH (08:25)
[2020-02-25] MEDS: PYRIDOSTIGMINE 60 MG TAB PO SCH ×4 (08:25→22:49)
[2020-02-25] MEDS: BACLOFEN 10 MG TAB PO SCH ×3 (08:25→22:47)
[2020-02-25] MEDS: OMEGA-3 1000MG CAPSULE PO SCH (08:25)
[2020-02-25] MEDS: BACITRACIN OINTMENT 30GM TUBE TOP SCH ×3 (08:26→21:00)
[2020-02-25] MEDS: MYCOPHENOLATE MOFETIL 250 MG CAP (J7517) PO SCH ×3 (08:26→22:48)
[2020-02-25] MEDS: MELOXICAM (MOBIC) 7.5 MG TAB PO SCH (08:26)
[2020-02-25 17:15] VITALS: BP 124/79
[2020-02-25] MEDS: RAMELTEON 8 MG TAB (ROZEREM) PO PRN (22:49)
[2020-02-25] MEDS ORDERED: hydrOXYzine 50 MG TAB PO ONE (23:15)
[2020-02-26] MEDS: diphenhydrAMINE 25MG CAP PO SCH ×6 (01:00→21:55)
[2020-02-26] MEDS: BACLOFEN 10 MG TAB PO SCH ×3 (08:31→21:55)
[2020-02-26] MEDS: MELOXICAM (MOBIC) 7.5 MG TAB PO SCH (08:31)
[2020-02-26] MEDS: BUPRENORPHINE/NALOXONE 2-0.5MG SUBLINGUAL TABLET(SUBOXONE) SL SCH (08:31)
[2020-02-26] MEDS: VENLAFAXINE **XR** 75MG CAPSULE PO SCH (08:32)
[2020-02-26] MEDS: OMEPRAZOLE 20 MG CAP PO SCH (08:32)
[2020-02-26] MEDS: acetaZOLAMIDE 500 MG ER CAP PO SCH ×2 (08:32→21:58)
[2020-02-26] MEDS: MULTIVITAMINS/MINERALS THERAP 1 TAB PO SCH (08:32)
[2020-02-26] MEDS: FOLIC ACID 1 MG TAB PO SCH (08:32)
[2020-02-26] MEDS: POTASSIUM CHLORIDE 10 MEQ SR TABLET PO SCH (08:32)
[2020-02-26] MEDS: FLUoxetine 20 MG CAP PO SCH (08:32)
[2020-02-26] MEDS: OMEGA-3 1000MG CAPSULE PO SCH (08:33)
[2020-02-26] MEDS: TAMOXIFEN CITRATE 10 MG TAB PO SCH (08:33)
[2020-02-26] MEDS: MYCOPHENOLATE MOFETIL 250 MG CAP (J7517) PO SCH ×3 (08:33→21:54)
[2020-02-26] MEDS: ACYCLOVIR 200 MG CAPSULE PO SCH ×2 (08:33→21:54)
[2020-02-26] MEDS: TORSEMIDE 20 MG TAB PO SCH (08:33)
[2020-02-26] MEDS: PYRIDOSTIGMINE 60 MG TAB PO SCH ×4 (08:33→21:54)
[2020-02-26] MEDS: BACITRACIN OINTMENT 30GM TUBE TOP SCH ×3 (08:39→21:00)
[2020-02-26 18:36] VITALS: BP 142/72
[2020-02-26] MEDS: RAMELTEON 8 MG TAB (ROZEREM) PO PRN (21:54)
[2020-02-27] MEDS: diphenhydrAMINE 25MG CAP PO SCH ×5 (01:00→12:56)
[2020-02-27 06:28] VITALS: BP 133/62
[2020-02-27] MEDS: IBUPROFEN 400 MG TAB PO PRN (06:30)
[2020-02-27] MEDS: BACITRACIN OINTMENT 30GM TUBE TOP SCH (09:00)
[2020-02-27] MEDS: TAMOXIFEN CITRATE 10 MG TAB PO SCH (09:04)
[2020-02-27] MEDS: BUPRENORPHINE/NALOXONE 2-0.5MG SUBLINGUAL TABLET(SUBOXONE) SL SCH (09:07)
[2020-02-27] MEDS: ACYCLOVIR 200 MG CAPSULE PO SCH (09:07)
[2020-02-27] MEDS: acetaZOLAMIDE 500 MG ER CAP PO SCH (09:08)
[2020-02-27] MEDS: OMEGA-3 1000MG CAPSULE PO SCH (09:08)
[2020-02-27] MEDS: FLUoxetine 20 MG CAP PO SCH (09:08)
[2020-02-27] MEDS: OMEPRAZOLE 20 MG CAP PO SCH (09:08)
[2020-02-27] MEDS: VENLAFAXINE **XR** 75MG CAPSULE PO SCH (09:08)
[2020-02-27] MEDS: MELOXICAM (MOBIC) 7.5 MG TAB PO SCH (09:09)
[2020-02-27] MEDS: MULTIVITAMINS/MINERALS THERAP 1 TAB PO SCH (09:09)
[2020-02-27] MEDS: POTASSIUM CHLORIDE 10 MEQ SR TABLET PO SCH (09:09)
[2020-02-27] MEDS: TORSEMIDE 20 MG TAB PO SCH (09:09)
[2020-02-27] MEDS: PYRIDOSTIGMINE 60 MG TAB PO SCH ×2 (09:10→12:56)
[2020-02-27] MEDS: BACLOFEN 10 MG TAB PO SCH (09:10)
[2020-02-27] MEDS: FOLIC ACID 1 MG TAB PO SCH (09:10)
[2020-02-27] MEDS: MYCOPHENOLATE MOFETIL 250 MG CAP (J7517) PO SCH (09:16)
--- NOTE | 2020-02-27 09:58 | MHDSPDOC ---
[facility] Discharge Summary Discharge Summary DATE OF ADMISSION: Jan 10, 2020 at 20:22 DATE OF DISCHARGE: Feb 27, 2020 at 14:20 DISCHARGE DIAGNOSES: Major depressive disorder recurrent severe without psychotic features Borderline personality disorder CONSULTANTS INVOLVED: Oncology, regarding whether tamoxifen could be briefly stopped, hospitalist for management of diuretics REASON FOR ADMISSION & TREATMENT AND PROGRESS ON THE UNIT : The patient was admitted to the inpatient mental health unit with suicidality and significant cutting she was resumed on her home clozapine, venlafaxine and Prozac, she additionally had mirtazapine for sleep, which did not help with her anxiety and depression. She was tried on increasing dose of Clazuril which proved fairly ineffective, she was then tried on Rexulti as an augmentation after moving her mirtazapine which failed even after going to 1 mg, explored various options and triage for a terminal block assembler of which the patient opposed, due to her diagnosis it would be unlikely she would be successful and negotiated with patient to try an alternative option removed the majority of her medications for psychiatry including mirtazapine clozapine and only leaving venlafaxine and Prozac which had been increased to 40 mg respectively. The patient was tried on low-dose Suboxone 2 mg daily as an off label treatment for depression and anxiety as well as treating her chronic pain which was one of her major complaints, there is evidence that low-dose Suboxone can be helpful especially in borderline individuals who are quite depressed and suicidal, she required going on and off a one-to-one multiple different times due to hiding various objects and self harming. She eventually engaged much better once being started on the Suboxone and generally did fairly well coming off the one-to-one in short order within a day, being observed over the prior weekend she did wonderfully engaged more with more talkative and even her realized that she was more talkative and engaged she reported that she felt much improved and want to continue on this treatment she reported that it did wear off towards in the day, of which she was reports she could split the dose to help improve the effects. Her suicidality vanished quite quickly after, she did still retain some of her borderline traits with splitting but these appear to even improve after the start of the Suboxone. DISCHARGE ASSESSMENT[improved] Legal status considerations: The patient at the time of discharge did not meet criteria for involuntary admission/extension due to having a [normal] mental status exam, [fair] insight into the situation, They are engaged in the discharge process, as well as being friendly and amenable in behavioral control and havent been engaging in any observed concerning behavior or ideation recently. They decline voluntary extension/admission at this time and must be discharged in good eduarda, as Im unable to make a case for holding the patient against their will. They may have historical risk factors of admissions and other interactions with psychiatry however, those are not modifiable from a clinical perspective. The patient will need to be discharged in good eduarda. MENTAL STATUS EXAMINATION ON DISCHARGE: [General: Well dressed with good hygiene Speech: Spontaneous and fluid Thought processes: Linear and logical Thought content: Future orientated Abstract reasoning, and computation: Intact Description of associations: Intact Description of abnormal or psychotic thoughts:Denies any suicidal or homicidal ideation. Denies any auditory or visual hallucinations. Does not appear to be responding to internal stimuli. Does not appear to be endorsing any bizarre or paranoid ideation. Judgment: fair Insight: fair Orientation: Alert and orientated 3 Recent and remote memory: Intact Attention span and concentration: Intact Fund of knowledge: Adequate Mood: "okay" Affect: Euthymic with a full range] PLAN/FOLLOWUP ARRANGEMENTS: Follow up appointments made (PCP and MH in 5 days of D/C date) and safety plan completed. Safety Planning aspects completed prior to discharge [Medication supplies limited to 7 days with 4 refills to prevent accumulation to OD]-Suboxone given as a 14-day supply, refill may need to be done before seeing [facility], discussed with patient about closing her case at [facility] and going to [facility] in order to see provider who could continue her Suboxone for depression [Family contact completed, educated on safe practices, instructed on removal and mitigation of dangerous means] [RN reviewed crisis hotline information and other aspects to empower patient to access care in interim before next appointment.] The amount of time spent in the coordination of care for this patient was approximately 30 minutes. Vital Signs/I&Os Vital Signs Date Time Temp Pulse Resp B/P (MAP) Pulse Ox O2 Delivery O2 Flow Rate FiO2 02/27/20 06:28 99.3 77 16 133/62 (85) 02/26/20 18:36 98 Room Air Medications Scheduled Acetazolamide (Acetazolamide) 500 Mg Capsule.er, 500 MG PO BID, (Reported) Acyclovir (Acyclovir) 400 Mg Tab, 400 MG PO BID, (Reported) Buprenorphine HCl/Naloxone HCl (Buprenorphn-Naloxn 2-0.5 mg Sl) 1 Each Tab.subl, 1 TAB SL DAILY for pain for 14 Days, #14 Cholecalciferol (Vitamin D3) (Vitamin D3) 125 Mcg (5000 Unit) Tab.rapdis, 5,000 UNITS PO DAILY, (Reported) Docusate Sodium (Docusate Sodium) 100 Mg Capsule, 100 MG PO DAILY, (Reported) Fluoxetine Hcl (Fluoxetine HCl) 20 Mg Capsule, 40 MG PO DAILY for mood for 7 Days, #14 Folic Acid (Folic Acid) 1 Mg Tab, 1 MG PO DAILY, (Reported) Meloxicam (Meloxicam) 15 Mg Tablet, 15 MG PO DAILY, (Reported) Mycophenolate Mofetil (Cellcept) 500 Mg Tab, 1,000 MG PO TID, (Reported) [place]-3 Fatty Acids/Fish Oil ([place] 3 1,000 mg Softgel) 1 Each Capsule, 1 CAP PO DAILY, (Reported) Omeprazole (Omeprazole) 20 Mg Capsule.dr, 20 MG PO DAILY, (Reported) Potassium Chloride (Potassium Chloride) 20 Meq Tablet.er, 20 MEQ PO DAILY, #30 Pyridostigmine [place] (Mestinon) 60 Mg Tab, 90 MG PO QID, (Reported) Tamoxifen Citrate (Tamoxifen Citrate) 20 Mg Tablet, 20 MG PO DAILY, (Reported) Torsemide (Torsemide) 20 Mg Tablet, 20 MG PO DAILY, (Reported) Venlafaxine HCl (Venlafaxine HCl ER) 75 Mg Cap.er.24h, 225 MG PO DAILY, (Reported) Scheduled PRN Baclofen (Baclofen) 10 Mg Tablet, 10 MG PO TID PRN for MUSCLE SPASMS, (Reported) Hydroxyzine HCl (Hydroxyzine HCl) 50 Mg Tablet, 50 MG PO QID PRN for ANXIETY, (Reported) Hydroxyzine HCl (Hydroxyzine HCl) 50 Mg Tablet, 2 TAB PO QPM PRN for SLEEP for 7 Days, #14 Ramelteon (Ramelteon) 8 Mg Tablet, 8 MG PO QHS PRN for INSOMNIA for 30 Days, #30 Sennosides (Senna) 8.6 Mg Tablet, 2 TAB PO QHS PRN for CONSTIPATION, (Reported) Allergies Coded Allergies: amitriptyline (Verified Allergy, Severe, SWELLING, 11/29/19) Grass (Verified Allergy, Mild, ITCHY EYES,NOSE, 11/29/19) TAPE (Verified Allergy, Mild, RASH/BLISTER, 11/29/19) TREES (Verified Allergy, Mild, ITCHY EYES,NOSE, 11/29/19) adhesive (Verified Allergy, Unknown, 11/29/19) divalproex sodium (Verified Allergy, Unknown, 11/29/19) minocycline (Verified Allergy, Unknown, 11/29/19) mold (Verified Allergy, Unknown, 11/29/19) tetracycline (Verified Allergy, Unknown, 11/29/19) bupropion (Verified Adverse Reaction, Intermediate, ESOPHAGEAL SPASMS, 11/29/19) banana (Verified Adverse Reaction, Mild, VOMITING, 11/29/19) benztropine (Verified Adverse Reaction, Mild, BLURRED VISION, 11/29/19) clindamycin (Verified Adverse Reaction, Mild, HEART BURN, 11/29/19) gabapentin (Verified Adverse Reaction, Mild, extreme weakness, 11/29/19) metaxalone (Verified Adverse Reaction, Mild, itching, 11/29/19) pregabalin (Verified Adverse Reaction, Mild, EDEMA, 11/29/19) sulfamethoxazole (Verified Adverse Reaction, Mild, DIARRHEA, 11/29/19) tizanidine (Verified Adverse Reaction, Mild, ITCHING, 11/29/19) trazodone (Verified Adverse Reaction, Mild, EDEMA, 11/29/19) trimethoprim (Verified Adverse Reaction, Mild, DIARRHEA, 11/29/19) vilazodone (Verified Adverse Reaction, Mild, MOOD CHANGES, 11/29/19) cyclobenzaprine (Verified Adverse Reaction, Unknown, IRRITABILITY, 11/29/19) valproic acid (Unverified Adverse Reaction, Unknown, DOES NOT METABOLIZE, 11/29/19) MANJULA ALBRIGHT DO Feb 27, 2020 09:58
[2020-02-27] MEDS: ACETAMINOPHEN TAB 650MG DOSE (2X325MG) PO PRN (10:22)
[2020-02-27] MEDS ORDERED: RAME8TAB2 PO (10:51)
[2020-02-27] MEDS ORDERED: BUPR1SUB33 SL (10:51)
[2020-02-27] MEDS ORDERED: HYDR1TAB33 PO (11:08)
[2020-02-27] MEDS ORDERED: FLUO20CA22 PO (11:10)
== END 2020-02-27 14:20 | disposition home or self-care (01) | DRG 751 ==
LOC: M ED 08:54 → M ED INP 01-10 20:22 → M PSY 01-10 22:20
PROVIDERS: ADMIT Psychiatry & Neurology Addiction Medicine; ATTEND Psychiatry & Neurology Addiction Medicine
DX: F33.2 Major depressive disorder, recurrent severe without psychotic features (principal); F41.9 Anxiety disorder, unspecified; G70.00 Myasthenia gravis without (acute) exacerbation; M79.7 Fibromyalgia; G89.29 Other chronic pain; R45.851 Suicidal ideations; J30.1 Allergic rhinitis due to pollen; R19.7 Diarrhea, unspecified; J06.9 Acute upper respiratory infection, unspecified; N17.9 Acute kidney failure, unspecified; F60.3 Borderline personality disorder; R60.0 Localized edema; K21.9 Gastro-esophageal reflux disease without esophagitis; Z85.3 Personal history of malignant neoplasm of breast; Z81.8 Family history of other mental and behavioral disorders; Z62.810 Personal history of physical and sexual abuse in childhood; Z62.811 Personal history of psychological abuse in childhood; Z92.21 Personal history of antineoplastic chemotherapy; Z92.3 Personal history of irradiation; Z87.891 Personal history of nicotine dependence; Z79.1 Long term (current) use of non-steroidal anti-inflammatories (NSAID); Z79.899 Other long term (current) drug therapy; Z88.1 Allergy status to other antibiotic agents; Z88.2 Allergy status to sulfonamides; Z88.8 Allergy status to other drugs, medicaments and biological substances; Z91.018 Allergy to other foods

== ENCOUNTER → 2020-03-14 | Outpatient (REF) | payer OTHER ==
[~2020-03-14] MED LIST changes: +ACET50CA PO; +BUPR1SUB33 SL; +BUPR1SUB4 SL; +FLUO20CA20 PO; +MELA3TAB29 PO; +MELO15TA28
[2020-03-14 12:51] LABS: BASO # 0.1 10^3/uL (0.0-0.2); BASO % 0.8 % (0.0-1.0); EOS # 0.3 10^3/uL (0.0-0.5); EOS % 5.1 % (0.0-3.0); HEMATOCRIT 38.7 % (36.0-47.0); HEMOGLOBIN 12.2 g/dl (12.0-15.5); LYMPH # 0.7 10^3/uL (1.5-5.0); LYMPH % 12.2 % (24.0-44.0); MEAN CORPUSCULAR HGB CONC 31.5 g/dl (32.0-36.5); MEAN CORPUSCULAR VOLUME 88.8 fl (80.0-96.0); MONO # 0.5 10^3/uL (0.0-0.8); MONO % 9.1 % (0.0-5.0); NEUTROPHILS # 4.2 10^3/uL (1.5-8.5); NEUTROPHILS % 71.4 % (36.0-66.0); PLATELET COUNT, AUTOMATED 288 10^3/uL (150-450); RED BLOOD COUNT 4.36 10^6/uL (4.00-5.40); WHITE BLOOD COUNT 5.9 10^3/uL (4.0-10.0)
[2020-03-14 13:20] LABS: ALBUMIN 4.1 GM/DL (3.2-5.2); BILIRUBIN,TOTAL 0.8 MG/DL (0.2-1.0); CALCIUM LEVEL 9.3 MG/DL (8.5-10.1); CREATININE FOR GFR 1.22 MG/DL (0.55-1.30); GLOMERULAR FILTRATION RATE 51.7 (>58); POTASSIUM SERUM 3.3 MEQ/L (3.5-5.1); TOTAL PROTEIN 7.3 GM/DL (6.4-8.2)
== END ==
LOC: M LABDRWAD 12:30
PROVIDERS: ATTEND Physician Assistant Medical
DX: G70.00 Myasthenia gravis without (acute) exacerbation (principal)

== ENCOUNTER → 2020-03-26 | Outpatient (CLI) | payer OTHER ==
--- NOTE | 2020-03-26 10:42 | REPMRS ---
Patient History Family history of unknown cancer at age 81 in paternal grandmother, unknown cancer at age 80 in maternal grandmother, colorectal cancer at age 80 in maternal grandfather. Malignant US guided breast biopsy of the right breast, April 06, 2019. Diagnostic Bilateral Mammo: March 26, 2020 - Exam #: [id number] Bilateral CC and MLO view(s) were taken. Technologist: Radha Gary, Technologist Prior study comparison: April 06, 2019, right breast digital mammo diagnostic unilateral, performed at [facility]. March 24, 2019, digital mammo diagnostic bilateral, performed at [facility]. November 01, 2008, digital mammo diagnostic bilateral, performed at [facility]. FINDINGS: The breast tissue is heterogeneously dense. This may lower the sensitivity of mammography. The Volpara volumetric breast density category is: C. There is diffuse stromal and dermal thickening in the right breast as expected post radiation therapy. An [id number] is noted over the pectoralis muscle on the left. The previously noted right breast mass is no longer apparent. There is a moderate amount of heterogeneously dense fibroglandular tissue which is fairly symmetric. There is no interval development of dominant mass, architectural distortion, or grouped microcalcification typical of malignancy. There has been no other change in the appearance of the mammogram from the prior studies. 3-D tomosynthesis shows no additional findings. Assessment: BI-RADS/ACR category 2 mammogram. Benign Findings. Recommendation Routine screening mammogram of both breasts in 1 year (for women over age 40). This mammogram was interpreted with the aid of an FDA-approved computer-aided dectection system. Electronically Signed By: Adán Tucker MD 03/26/20 9894
== END ==
LOC: M WHC 09:55
PROVIDERS: ATTEND Surgery
DX: C50.911 Malignant neoplasm of unspecified site of right female breast (principal)
CPT/HCPCS: 77066; G0279

== ENCOUNTER → 2020-03-29 | Outpatient (REF) | payer OTHER ==
[2020-03-29 13:30] LABS: BASO % 0.8 % (0.0-1.0); EOS # 0.3 10^3/uL (0.0-0.5); EOS % 5.6 % (0.0-3.0); HEMOGLOBIN 12.2 g/dl (12.0-15.5); LYMPH % 18.8 % (24.0-44.0); MEAN CORPUSCULAR HEMOGLOBIN 28.2 pg (27.0-33.0); MEAN CORPUSCULAR HGB CONC 31.3 g/dl (32.0-36.5); MEAN CORPUSCULAR VOLUME 90.3 fl (80.0-96.0); MONO # 0.4 10^3/uL (0.0-0.8); MONO % 7.7 % (0.0-5.0); NEUTROPHILS # 3.4 10^3/uL (1.5-8.5); NEUTROPHILS % 66.7 % (36.0-66.0); PLATELET COUNT, AUTOMATED 241 10^3/uL (150-450); RED BLOOD COUNT 4.32 10^6/uL (4.00-5.40)
[2020-03-29 14:00] LABS: ALBUMIN 4.1 GM/DL (3.2-5.2); ALT/SGPT 20 U/L (12-78); BILIRUBIN,TOTAL 0.4 MG/DL (0.2-1.0); BLOOD UREA NITROGEN 12 MG/DL (7-18); CALCIUM LEVEL 9.1 MG/DL (8.5-10.1); CARBON DIOXIDE LEVEL 22 MEQ/L (21-32); CHLORIDE LEVEL 113 MEQ/L (98-107); CHOLESTEROL LEVEL 188 MG/DL (<200); CHOLESTEROL RISK RATIO 4.372 (<5); CREATININE FOR GFR 1.04 MG/DL (0.55-1.30); GLOMERULAR FILTRATION RATE > 60.0 (>58); GLUCOSE, FASTING 92 MG/DL (70-100); HDL CHOLESTEROL 43 MG/DL (>40); LDL CHOLESTEROL 115 MG/DL (<100); NON-HDL-C 145 MG/DL; POTASSIUM SERUM 4.6 MEQ/L (3.5-5.1); SODIUM LEVEL 140 MEQ/L (136-145); TOTAL PROTEIN 6.5 GM/DL (6.4-8.2); TRIGLYCERIDES LEVEL 152 MG/DL (<150)
== END ==
LOC: M SFHCADAM 08:52
PROVIDERS: ATTEND Family Medicine
DX: F32.9 Major depressive disorder, single episode, unspecified (principal); E66.1 Drug-induced obesity; Z68.41 Body mass index [BMI] 40.0-44.9, adult; E87.6 Hypokalemia

== ENCOUNTER 2020-04-09 13:52 | Emergency (ER) | payer MEDICAID, OTHER ==
[~2020-04-09] VITALS: Ht 165.1 cm; Wt 93.2 kg
[~2020-04-09 13:52] MED LIST changes: +GABA-282 PO; -GABA-843 PO
--- OUTSIDE RECORDS SUMMARY | 2020-04-09 13:59 | CCD ---
Author Author [facility] Organization [facility] Address Unknown Phone Unavailable Care Team Providers Care Hatch Supervisor Name Role Phone Jamilah Bolaños Unavailable PROBLEMS Type Condition ICD9-CM Code [id number] Code Onset Dates Condition S tatus SNOMED Code Notes Problem Overactive bladder N32.81 Active 501435346 Problem Stress incontinence N39.3 Active 28899697 Problem HSV (herpes simplex virus) anogenital infection A6 0.9 Active 372301144 Problem Mixed incontinence N39.46 Active 510837901 Problem Body mass index (BMI) 40.0-44.9, adult Z68.41 A ctive 759714532 Problem Irregular menses N92.6 Active 24674132 Problem Fibromyalgia M79.7 Active 235698999 Problem Generalized pain R52 Active 06715508 Problem Insomnia, unspecified type G47.00 Active 24441 2000 Problem Myalgia M79.1 Active 74445625 Problem Other chronic pain G89.29 Active 57363087 Problem Depression, unspecified depression type F32.9 Active 09261580 Problem Gastroesophageal reflux disease, esophagitis pre sence not specified K21.9 Active 629740819 Problem Chronic pain disorder G89.4 Active 537462096 Problem 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 Active 283030131 Problem Infiltrating ductal carcinoma C50.919 Active 37 9704508 Problem Malignant neoplasm of lower-inner quadrant of ri ght female breast C50.311 Active 470310302 Problem Neoplastic malignant related fatigue R53.0 Act sherri 550984467 Problem Obstructive sleep apnea G47.33 Active 46580483 Problem Other elevated white blood cell (WBC) count D72.82 8 Active 934959175 Problem Myasthenia gravis G70.00 Active 06831546 Problem Hearing loss, unspecified hearing loss type, uns pecified laterality H91.90 Active 54102259 Problem Myasthenia gravis without (acute) exacerbation G70 .00 Active 25989056 Problem Breast hematoma N64.89 Active 914201767 Problem Infiltrating ductal carcinoma of right breast C50. 911 Active 409571620 Problem Constipation, unspecified constipation type K59.00 Active 37681147 ALLERGIES Allergen (clinical drug ingredient) Drug/Non Drug Allergy do cumented on EMR Reaction Allergy Type Onset Date Status Wellbutrin throat spasms Drug Allergy Active pregabalin Lyrica(NDC Code:[address]-42) fluid retentiom Drug Allerg y Active clindamycin Clindamycin HCl(NDC Code:[address]-15) heart burn Drug A llergy Active sulfamethoxazole / trimethoprim Bactrim DS(NDC Code:[address]-8 1) Diarrhea Drug Allergy Active Zanaflex itching Drug Allergy Active gabapentin Gabapentin(NDC Code:[address]-80) weakness and confusion Drug Allergy Active Flexeril irritability Drug Allergy Active amitriptyline Amitriptyline HCl(NDC Code:[address]-22) edema Dr ug Allergy Active metaxalone Skelaxin(NDC Code:[address]-14) itching Drug Allergy Active benztropine Cogentin(NDC Code:[address]-09) blurry eyes Drug Allergy Active valproate Depakote(NDC Code:[address]-15) does not metabo lize properly Drug Allergy Active trazodone TraZODone HCl(NDC Code:[address]-11) swelling Drug Jerod rgy Active ENCOUNTERS from 1979 to 2020-03-26 Encounter Location Date Provider Diagnosis [facility] [address] [place] [address] Feb, 20 Jamilah Felton-Tartell Peripheral edema R60.9 IMMUNIZATIONS Vaccine Route Administration Date Status Influenza (18 yrs & older) Flublok IM Intramuscular Feb 14, 2019 Administered Pneumococcal Adult 0.5mL (Pneumovax 23) IM Intramuscular Nov Administered TDAP 0.5mL (Boostrix) Unknown Oct 24, 2018 Administer ed TDAP 0.5mL (Boostrix) IM Intramuscular October 06, 2016 Administe red Pneumococcal 0.5mL (Prevnar 13) Unknown October 06, 2016 Administered Influenza (6mo & up) Fluzone Unknown Mar 10, 2018 Adm inistered SOCIAL HISTORY Tobacco Use: Social History Observation Description Date Details (start date - stop date) Former Smoker Sex Assigned At : Social History Observation Description Sex Assigned At Unknown Education: Question Answer Notes Level of Education: High School Audit Question Answer Notes Interpretation: Alcohol Education Total Score: 2 Sexual Hx: Question Answer Notes Had sex in the last 12 months (vaginal, oral, or anal)? Yes Have you ever had an STD? Yes with Men only Herpes? Yes Drug and Alcohol Question Answer Notes Total Score: 0 Interpretation: No problems reported Alcohol Screening: Question Answer Notes Did you have a drink containing alcohol in the past year? Ye s Points 1 Interpretation Negative How often did you have six or more drinks on one occas ion in the past year? Never (0 points) How many drinks did you have on a typica l day when you were drinking in the past year? 1 or 2 (0 points) How often did you have a drink containing alcohol in t he past year? Monthly or less (1 point) BMI Care Goal Follow-Up Question Answer Notes Above Normal BMI Follow-Up Giving encouragement to exercise Tobacco Use: Question Answer Notes Are you a: former smoker quit 2011 How long has it been since you last smoked? 1-5 years REASON FOR REFERRAL No Information VITAL SIGNS No information MEDICATIONS Medication SIG (Take, Route, Frequency, Duration) Notes Start Da te End Date Status Tamoxifen Citrate 20 MG 53 tab(s) Orally Once a day Active Cyclophosphamide 1 GM as directed Injection Not-Taking Docusate Sodium 100 MG Oral for 30 Active FLUoxetine HCl 40 MG 1 capsule Orally Once a day for 30 day(s) Active Ramelteon 8 MG 1 tablet at bedtime as needed Orally Once a day Not-Taking Acyclovir 400 MG 1 tablet orally twice daily for 30 Active HydrOXYzine HCl 50 MG 1 tablet as needed Orally every 6 hrs Active Zaleplon 10 MG 1 capsule at bedtime as needed Orally Once a day Not-Taking Meloxicam 15 MG 1 tablet Orally Once a day for 30 day(s) 0 5 Nov, 2018 Active HydrOXYzine HCl 50 MG 2 tabs Orally before bedtime Active Aripiprazole 5 MG Oral for 30 Not-T aking Potassium 20 fr 1 tablet Orally Once a day Active Requip 2 MG 1 tablet 1 to 3 hours before bedtime Orally Once a day Not-Taking Vitamin D3 5000 UNIT 1 capsule Orally Once a day Active Omeprazole 20 MG TAKE ONE CAPSULE BY MOUTH EVERY DAY for 30 Active Naltrexone HCl 50 MG Oral for 30 No t-Taking Senna 8.6 MG 2 tablets at bedtime as needed Orally Once a day for 30 Active Torsemide 20 MG 1 tab Orally Daily for 30 Active Mirtazapine 30 MG TAKE ONE TABLET BY MOUTH AT BEDTIME NEEDED FOR SLEEP Oral for 7 Not-Taking AcetaZOLAMIDE 250 MG 2 tablets Orally twice daily Sep, Active Hydrocodone-Acetaminophen 5-325 MG 1 tablet as needed Orally every 6 hrs Not-Taking Mestinon 60 MG 1 1/2 tablet Orally four times a day Active Lorazepam 1 MG (Schedule IV Drug) Oral for 30 Not-Taking Adderall 20 MG 1 tablet Orally Twice a day Not-Taking Broadus 3-6-9 Fatty Acids - as directed Orally Active Docetaxel 160 MG/16ML as directed Intravenous Not-Taking CellCept 500 MG 2 tablets Orally tid Active Melatonin 3 MG 1 tablet at bedtime as needed Orally Once a day for 30 day(s) Active Myrbetriq 50 MG 1 tablet Orally Once a day for 90 days Not-Taking Tamoxifen Citrate 20 MG 1 tablet Orally Once a day Active Shower Chair without wheels as directed Dx: G70.00,M79 .7 Daily Use for 30 day(s) Sep, Active Suboxone 2-0.5 MG 2 films under the tongue and allow to dissolve Sublingual Once a day Active Artificial Tears 1.4 % Ophthalmic for 28 Active Cephalexin 500 MG 1 capsule Orally every 12 hrs for 10 day(s) Not-Taking Folic Acid 1 MG 1 tablet Orally Once a day Active Baclofen 10 MG 1 tab Orally Three times a day Active Jobst Relief 30-40mmHg Medium - as directed topically Daily for 90 day(s) Feb, Active Venlafaxine HCl ER 225 MG 1 tablet with food Orally Once a day Active PROCEDURES No Information RESULTS No Results REASON FOR VISIT Neuro/med questions MEDICAL (GENERAL) HISTORY Type Description Date Medical History ovarian cysts Medical History GERD Medical History myasthenia gravis (follows with neurolog y) Medical History depression Medical History ADD 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 [facility] Medical History fibromyalgia Medical History OPHELIA with CPAP Medical History unremarkable lumbar spine MRI (12/2016) Medical History mild hearing loss (01/2017) Medical History normal Pap (12/2016) Medical History echocardiogram with mild mitral regurg ( 09/2017) Medical History lymphedema of legs Medical History clinical stage II left breas t lower inner quadrant ER/[place] weakly positive, Her2/ave negative, grade 3 invasive ductal carcinoma (03/2019); plan Taxol cyclophosphamide, followed by radiation Medical History idiopathic intracranial hypertension (2019) Surgical History cholecystectomy 2004 Surgical History tubal ligation 2009 Surgical History C section 2006 Surgical History thymectomy (for myasthenia gravis) 2004 Surgical History PRK surgery bilat Surgical History medtronics InterStem for bladder 01-06- 017 Surgical History INTERSTIM REMOVAL 10/28/2017 Surgical History lap assist hyst 09/08 Surgical History R breast biopsy 04/06/2019 Surgical History R breast lumpectomy 05/17/19 Surgical History R breast hematoma surgical drainage 05/18 Hospitalization History depression multiple times Hospitalization History childbirth Hospitalization History D&C (for vaginal bleeding x 2 months ) -- nonmalignancy 2009 Hospitalization History depression and SI 08/2017 Hospitalization History depression 02/07 Hospitalization History [facility] - depression 10/2018 Hospitalization History R lumpectomy, sentinel node biopsy ( Dr. Mckinney, [facility]) 04/2019 Hospitalization History drainage of postop breast he matoma (Dr. White, [facility]) 04/2019 Hospitalization History idiopathic intracranial hype rtension, started on acetazolamide ([facility]) 08/2019 Goals Section No Information Health Concerns No Information MEDICAL EQUIPMENT No Information MENTAL STATUS No Information FUNCTIONAL STATUS No Information ASSESSMENTS Encounter Date Diagnosis Assessment Notes Treatment Notes Treatm ent Clinical Notes Feb, Peripheral edema (ICD-10 - R60.9) Compression stockings sent per patient request. Feb, Other Will obtain doc umentation or discuss with neurology the role of acetazolamide for this patient. PLAN OF TREATMENT Medication Medication Name Sig Start Date Stop Date Jobst Relief 30-40mmHg Medium - as directed topically Daily for 90 day(s) Feb, Treatment Notes Assessment Notes Clinical Notes Peripheral edema Compression stocking s sent per patient request. Next Appt Details Provider Name:Jamilah Bolaños, 2020-04-04 11:30:00 AM, [address], [place], [address], Provider Name:Mickey Gilmore, 10:40:00 AM, [address] [place], [address], Provider Name:Toyin Perez, 10:30:00 AM, [address] [place], [address], Provider Name:Netta Kaur, 13-05-14 10:30:00 AM, [address] [place], [address], Insurance Providers Payer Name Payer Address Payer Phone Insured Name Patient Relati onship to Insured Coverage Start Date Coverage End Date [facility] COMMUNITY PLAN [facility] [address] [facility] [id number] BRADY CARVAJAL self
--- OUTSIDE RECORDS SUMMARY | 2020-04-09 13:59 | CCD ---
Author Author [facility] Organization [facility] Address Unknown Phone Unavailable Care Team Providers Care Color Control Supervisor Name Role Phone Jamilah Bolaños Unavailable PROBLEMS Type Condition ICD9-CM Code [id number] Code Onset Dates Condition S tatus SNOMED Code Notes Problem Overactive bladder N32.81 Active 981443685 Problem Stress incontinence N39.3 Active 36962482 Problem HSV (herpes simplex virus) anogenital infection A6 0.9 Active 613632991 Problem Mixed incontinence N39.46 Active 481480387 Problem Body mass index (BMI) 40.0-44.9, adult Z68.41 A ctive 944766719 Problem Irregular menses N92.6 Active 61986322 Problem Fibromyalgia M79.7 Active 282384328 Problem Generalized pain R52 Active 39944594 Problem Insomnia, unspecified type G47.00 Active 75958 2000 Problem Myalgia M79.1 Active 66286130 Problem Other chronic pain G89.29 Active 27458750 Problem Depression, unspecified depression type F32.9 Active 29789479 Problem Gastroesophageal reflux disease, esophagitis pre sence not specified K21.9 Active 952615120 Problem Chronic pain disorder G89.4 Active 509145731 Problem 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 Active 962802927 Problem Infiltrating ductal carcinoma C50.919 Active 37 1208540 Problem Malignant neoplasm of lower-inner quadrant of ri ght female breast C50.311 Active 748992399 Problem Neoplastic malignant related fatigue R53.0 Act sherri 732716501 Problem Obstructive sleep apnea G47.33 Active 23375532 Problem Other elevated white blood cell (WBC) count D72.82 8 Active 422009126 Problem Myasthenia gravis G70.00 Active 89882328 Problem Hearing loss, unspecified hearing loss type, uns pecified laterality H91.90 Active 25518581 Problem Myasthenia gravis without (acute) exacerbation G70 .00 Active 66640806 Problem Breast hematoma N64.89 Active 448596094 Problem Infiltrating ductal carcinoma of right breast C50. 911 Active 053240702 Problem Constipation, unspecified constipation type K59.00 Active 24878553 ALLERGIES Allergen (clinical drug ingredient) Drug/Non Drug Allergy do cumented on EMR Reaction Allergy Type Onset Date Status Wellbutrin throat spasms Drug Allergy Active pregabalin Lyrica(NDC Code:[address]-59) fluid retentiom Drug Allerg y Active clindamycin Clindamycin HCl(NDC Code:[address]-49) heart burn Drug A llergy Active sulfamethoxazole / trimethoprim Bactrim DS(NDC Code:[address]-9 1) Diarrhea Drug Allergy Active Zanaflex itching Drug Allergy Active gabapentin Gabapentin(NDC Code:[address]-29) weakness and confusion Drug Allergy Active Flexeril irritability Drug Allergy Active amitriptyline Amitriptyline HCl(NDC Code:[address]-53) edema Dr ug Allergy Active metaxalone Skelaxin(NDC Code:[address]-91) itching Drug Allergy Active benztropine Cogentin(NDC Code:[address]-01) blurry eyes Drug Allergy Active valproate Depakote(NDC Code:[address]-89) does not metabo lize properly Drug Allergy Active trazodone TraZODone HCl(NDC Code:[address]-09) swelling Drug Jerod rgy Active ENCOUNTERS from 1979 to 2020-03-20 Encounter Location Date Provider Diagnosis [facility] [address] [place] [address] Feb, Jamilah Bolaños IMMUNIZATIONS Vaccine Route Administration Date Status Influenza [...] Education: High School Audit Question Answer Notes Total Score: 2 Interpretation: Alcohol Education Sexual Hx: Question Answer Notes Had sex [...] 1 tablet Orally Twice a day Not-Taking [place] 3-6-9 Fatty Acids - as directed Orally [...] Information RESULTS No Results REASON FOR VISIT med question MEDICAL (GENERAL) HISTORY Type Description Date Medical History ovarian cysts Medical History GERD Medical History myasthenia gravis (follows with neurolog y) Medical History depression Medical History ADD 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 [facility] Medical History fibromyalgia Medical History OPHELIA with CPAP Medical History unremarkable lumbar spine MRI (12/2016) Medical History mild hearing loss (01/2017) Medical History normal Pap (12/2016) Medical History echocardiogram with mild mitral regurg ( 09/2017) Medical History lymphedema of legs Medical History clinical stage II left breas t lower inner quadrant ER/[place] weakly positive, Her2/ave negative, grade 3 invasive ductal carcinoma (03/2019); plan Taxol cyclophosphamide, followed by radiation Medical History idiopathic intracranial hypertension (2019) Surgical History cholecystectomy 2004 Surgical History tubal ligation 2009 Surgical History C section 2006 Surgical History thymectomy (for myasthenia gravis) 2004 Surgical History PRK surgery bilat Surgical History [employer]tronics InterStem for bladder 017 Surgical History INTERSTIM REMOVAL 10/28/2017 Surgical [...] 08/2017 Hospitalization History depression 02/07 Hospitalization History [facility] IM - depression 10/2018 Hospitalization History R lumpectomy, sentinel node biopsy ( Dr. Mckinney, [facility]) 04/2019 Hospitalization History drainage of postop breast he matoma (Dr. White, [facility]) 04/2019 Hospitalization History idiopathic intracranial hype rtension, started on acetazolamide ([facility]) 08/2019 Goals Section No Information Health Concerns No Information MEDICAL EQUIPMENT No Information MENTAL STATUS No Information FUNCTIONAL STATUS No Information ASSESSMENTS No Information PLAN OF TREATMENT Medication Medication Name Sig Start Date Stop Date Jobst Relief 30-40mmHg Medium - as directed topically Daily for 90 day(s) Feb, Next Appt Details Provider Name:Jamilah Bolaños, 2020-04-04 11:30:00 AM, [address] [place] [address], [address], Provider Name:Mickey Gilmore, 10:40:00 AM, [address] [place], [address], Provider Name:Toyin Perez, 10:30:00 AM, [address], [place], [address], Provider Name:Netta Kaur, 13-05-14 10:30:00 AM, [address] [facility], [place], [address], Insurance Providers Payer Name Payer Address Payer Phone Insured Name Patient Relati onship to Insured Coverage Start Date Coverage End Date [facility] COMMUNITY PLAN [facility] [address] [facility] [id number] BRADY CARVAJAL self
--- OUTSIDE RECORDS SUMMARY | 2020-04-09 13:59 | CCD | Continuity of Care Document ---
Author Author Mitra LAND P.A.-C. Organization Unknown Address [address] [place], [place] [address] Phone [phone] Care Team Providers Care Academic Guidance Specialist Name Role Phone Jamilah Carpio DO AUTM Problems Active Problems Provider Date Numbness of limbs Melanie Rehman M.D. Onset: 12/22/2014 Carpal tunnel syndrome Melanie Rehman M.D. Onset: 12/22/2014 Social History Type Date Description Comments Sex Unknown Tobacco Use Start: Unknown Patient has never smoked Allergies, Adverse Reactions, Alerts Active Allergies Reaction Severity Comments Date Wellbutrin 04/11/2010 Depakote 04/11/2010 Cogentin vision changes 04/11/2010 Tetracycline 04/11/2010 Minocin 04/11/2010 Tape 04/11/2010 Flexeril irritability 04/12/2010 Skelaxin 04/17/2010 Zanaflex itch 10/14/2010 Lyrica edema 04/06/2017 Viibryd made her [place] 06/19/2017 Amitriptyline oral swelling 09/21/2017 Gabapentin weakness, edema 09/21/2017 Medications Active Medications SIG Qnty Indications Ordering Provide r Date Acetazolamide ER 500mg Caps ER 12H R 1 by mouth twice a day 60caps Melanie Rehman M.D. 12/16/2019 [facility], g47.33 Maggie Ruth 11/15/2018 Pyridostigmine [place] 60mg Tablet s Take 1 & 1/2 Tablets By Mouth Four Times A Day 180tabs Melanie Leal M.D. 04/28/2018 Mycophenolate Mofetil 500mg Tablet s Take Two Tablets By Mouth Three Times A Day Maximum Daily Dose = 6 Tablets 180tabs Melanie Rehman M.D. 03/11/2018 Baclofen 10mg Tablets Take One Tablet By Mouth Three Times A Day as Needed 90tabs Kranthi Ruth 11/30/2017 Cpap [facility], g47.33 1unbraydon Rehman M.D. 01/24/2016 Immunizations Description No Information Available Vital Signs Date Vital Result Comment 12/12/2019 5:36am BP Systolic 124 mmHg BP Diastolic 84 mmHg Heart Rate 80 /min Respiratory Rate 16 /min Height 65 inches 5'5" Weight 235.00 lb BMI (Body Mass Index) 39.1 kg/m2 [place] Body Weight 125 lb 12/12/2019 5:36am BP Systolic 124 mmHg BP Diastolic 84 mmHg Heart Rate 80 /min Respiratory Rate 20 /min Results Test Acquired Date Facility Test Result H/L Range Note CBC With Differential 03/14/2020 [facility] White Blood Count 5.9 10 Normal 4.0-10.0 Red Blood Count 4.36 10 Normal 4.00-5.40 Hemoglobin 12.2 g/dL Normal 12.0-15.5 Hematocrit 38.7 % Normal 36.0-47.0 Mean Corpuscular Volume 88.8 fl Normal 80.0-96.0 Mean Corpuscular Hemoglobin 28.0 pg Normal 27.0-33.0 Mean Corpuscular HGB Conc 31.5 g/dL Low 32.0-36.5 Red Cell Distribution Width 15.3 % High 11.5-14.5 Platelet Count, Automated 288 10 Normal 150-450 Neutrophils % 71.4 % High 36.0-66.0 Lymph % 12.2 % Low 24.0-44.0 [place] % 9.1 % High 0.0-5.0 Eos % 5.1 % High 0.0-3.0 Baso % 0.8 % Normal 0.0-1.0 Immature Granulocyte % 1.4 % Normal 0-3.0 Nucleated Red Blood Cell % 0.0 % Normal 0-0 Neutrophils # 4.2 10 Normal 1.5-8.5 Lymph # 0.7 10 Low 1.5-5.0 [place] # 0.5 10 Normal 0.0-0.8 Eos # 0.3 10 Normal 0.0-0.5 Baso # 0.1 10 Normal 0.0-0.2 Comprehensive Metabolic Profil 03/14/2020 [facility] Glucose, Fasting 92 mg/dL Normal 70-100 Blood Urea Nitrogen 17 mg/dL Normal 7-18 Creatinine For GFR 1.22 mg/dL Normal 0.55-1.30 Glomerular Filtration Rate 51.7 Low >58 1 Sodium Level 138 mEq/L Normal 136-145 Potassium Serum 3.3 mEq/L Low 3.5-5.1 Chloride Level 108 mEq/L High 98-107 Carbon Dioxide Level 23 mEq/L Normal 21-32 Anion Gap 7 mEq/L Low 8-16 Calcium Level 9.3 mg/dL Normal 8.5-10.1 Ast/Sgot 13 U/L Normal 7-37 Alt/SGPT 21 U/L Normal 12-78 Alkaline Phosphatase 108 U/L Normal 45-117 Bilirubin,Total 0.8 mg/dL Normal 0.2-1.0 Total Protein 7.3 GM/DL Normal 6.4-8.2 Albumin 4.1 GM/DL Normal 3.2-5.2 Albumin/Globulin Ratio 1.3 Normal 1.2-2.2 1 Units are mL/min/1.73 m2 Chronic Kidney Disease Staging per NKF: Stage I & II GFR >=60 Normal to Mildly Decreased Stage III GFR 30-59 Moderately Decreased Stage IV GFR 15-29 Severely Decreased Stage V GFR <15 Very Little GFR Left ESRD GFR <15 on [employer] T[employer]ER Procedures Date Code Description Status 12/19/2019 99350 Nerve Conduction 13+ Studies Com pleted 12/19/2019 42190 Needle Electromyography Complete , Five Or More Muscles Studied Completed 12/19/2019 92673 Needle Electromyography Complete , Five Or More Muscles Studied Completed Medical Devices Description No Information Available Encounters Type Date Location Provider Dx Diagnosis Office Visit 03/12/2020 9:00a Main office - [place] Mitra samayoa P.A.-C. 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 03/12/2020 G93.0 Cerebral cysts Mitra Land P.A.-C. 03/12/2020 G93.2 Benign intracranial hypertension Mitra Land P.A.-C. 03/12/2020 M54.81 Occipital neuralgia Mitra samayoa P.A.-C. 03/12/2020 M26.633 Articular disc disorder of bilat eral temporomandibular joint Mitra Land P.A.-C. 03/12/2020 M79.7 Fibromyalgia Mitra Land P.A.-C. 03/12/2020 M62.838 Other muscle spasm Mitra sal P.A.-C. 03/12/2020 M54.2 Cervicalgia Mitra Land P.A.-C. 03/12/2020 M54.5 Low back pain Mitra Land P.A.-C. 03/12/2020 G47.33 Obstructive sleep apnea (adult) (pediatric) Mitra Land P.A.-C. 03/12/2020 G24.01 Drug induced subacute dyskinesia Mitra Land P.A.-C. 12/19/2019 M25.579 Pain in unspecified ankle and frankie ints of unspecified foot Melanie Sherie, M.D. 12/19/2019 M54.5 Low back pain Melanie Sherie, M.D . 12/19/2019 R20.2 Paresthesia of skin Melanie Sherie, M.D. 12/19/2019 G60.9 Hereditary and idiopathic neurop athy, unspecified Melanie Sherie, M.D. 12/12/2019 G93.0 Cerebral cysts Kevin JavedA.-C. 12/12/2019 G70.00 Myasthenia gravis without (acute ) exacerbation Rex Javed.A.-C. 12/12/2019 M54.81 Occipital neuralgia Kevin BennettA.-C. 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 12/12/2019 M54.2 Cervicalgia Rex Javed.A.-C. 12/12/2019 M54.5 Low back pain Rex Javed.A.-C. 12/12/2019 M62.838 Other muscle spasm Rex Lucero.A.-C. 12/12/2019 M79.7 Fibromyalgia Rex Javed.A.-C. 12/12/2019 G56.01 Carpal tunnel syndrome, right up per limb Kevin JavedAZeke-CZeke 12/12/2019 G47.33 Obstructive sleep apnea (adult) (pediatric) Rex Javed.A.-C. 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 CBC and CMP pending. * G93.0 Cerebral cysts* Comments:* Brain imaging up to date. * G93.2 Benign intracranial hypertension* Comments:* She does not like side effects of Diamox. She can ask her PCP if she can take Lasix with her current diuretic. Follow up at [facility]. * M54.81 Occipital neuralgia* Comments:* Improved. 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 * M79.7 Fibromyalgia* Comments:* Improved. She no longer sees Dr Cavanaugh. She takes Suboxone per mental health. * M62.838 Other muscle spasm* Comments:* Continue baclofen. * M54.2 Cervicalgia* Comments:* Improved. * M54.5 Low back pain* Comments:* Improved. * G47.33 Obstructive sleep apnea (adult) (pediatric)* Comments:* She continues CPAP. 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 * Follow up:* 3 months Functional Status Description No Information Available Mental Status Description No Information Available Referrals Description No Information Available
--- OUTSIDE RECORDS SUMMARY | 2020-04-09 13:59 | CCD ---
Author Author [facility] Organization [facility] Address Unknown Phone Unavailable Care Team Providers Care Overseer Kosher Kitchen Name Role Phone Jamilah Bolaños Unavailable PROBLEMS Type Condition ICD9-CM Code NUW34-GN Code Onset Dates Condition S tatus SNOMED Code Notes Problem Overactive bladder N32.81 Active 384979827 Problem Stress incontinence N39.3 Active 87025860 Problem HSV (herpes simplex virus) anogenital infection A6 0.9 Active 921184226 Problem Mixed incontinence N39.46 Active 081148514 Problem Body mass index (BMI) 40.0-44.9, adult Z68.41 A ctive 467069095 Problem Irregular menses N92.6 Active 32291842 Problem Fibromyalgia M79.7 Active 878010440 Problem Generalized pain R52 Active 52164387 Problem Insomnia, unspecified type G47.00 Active 22136 2000 Problem Myalgia M79.1 Active 02634136 Problem Other chronic pain G89.29 Active 46669287 Problem Depression, unspecified depression type F32.9 Active 94169688 Problem Gastroesophageal reflux disease, esophagitis pre sence not specified K21.9 Active 147279705 Problem Chronic pain disorder G89.4 Active 787128671 Problem 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 Active 429553225 Problem Infiltrating ductal carcinoma C50.919 Active 37 9911895 Problem Malignant neoplasm of lower-inner quadrant of ri ght female breast C50.311 Active 863598126 Problem Neoplastic malignant related fatigue R53.0 Act sherri 152123232 Problem Obstructive sleep apnea G47.33 Active 49733435 Problem Other elevated white blood cell (WBC) count D72.82 8 Active 965515351 Problem Myasthenia gravis G70.00 Active 19688120 Problem Hearing loss, unspecified hearing loss type, uns pecified laterality H91.90 Active 43723478 Problem Myasthenia gravis without (acute) exacerbation G70 .00 Active 44573025 Problem Breast hematoma N64.89 Active 724337196 Problem Infiltrating ductal carcinoma of right breast C50. 911 Active 454063575 Problem Constipation, unspecified constipation type K59.00 Active 71825965 ALLERGIES Allergen (clinical drug ingredient) Drug/Non Drug Allergy do cumented on EMR Reaction Allergy Type Onset Date Status Wellbutrin throat spasms Drug Allergy Active pregabalin Lyrica(NDC Code:[address]-64) fluid retentiom Drug Allerg y Active clindamycin Clindamycin HCl(NDC Code:[address]-25) heart burn Drug A llergy Active sulfamethoxazole / trimethoprim Bactrim DS(NDC Code:[address]-7 1) Diarrhea Drug Allergy Active Zanaflex itching Drug Allergy Active gabapentin Gabapentin(NDC Code:[address]-62) weakness and confusion Drug Allergy Active Flexeril irritability Drug Allergy Active amitriptyline Amitriptyline HCl(NDC Code:[address]-59) edema Dr ug Allergy Active metaxalone Skelaxin(NDC Code:[address]-91) itching Drug Allergy Active benztropine Cogentin(NDC Code:[address]-59) blurry eyes Drug Allergy Active valproate Depakote(NDC Code:[address]-62) does not metabo lize properly Drug Allergy Active trazodone TraZODone HCl(NDC Code:[address]-23) swelling Drug Jerod rgy Active ENCOUNTERS from 1980 to 2020-03-22 Encounter Location Date Provider Diagnosis [facility] [address] [place] [address] 30 Dec, 20 20 Jamilah Felton-Tartell Hypokalemia E87.6 IMMUNIZATIONS Vaccine Route Administration Date Status Influenza [...] 1 tablet Orally Twice a day Not-Taking [place] 3-6-9 Fatty Acids - as directed Orally [...] Information RESULTS No Results REASON FOR VISIT starting lasix MEDICAL (GENERAL) HISTORY Type Description Date Medical History ovarian cysts Medical History GERD Medical History myasthenia gravis (follows with neurolog y) Medical History depression Medical History ADD 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 [facility] Medical History fibromyalgia Medical History OPHELIA with CPAP Medical History unremarkable lumbar spine MRI (12/2016) Medical History mild hearing loss (01/2017) Medical History normal Pap (12/2016) Medical History echocardiogram with mild mitral regurg ( 09/2017) Medical History lymphedema of legs Medical History clinical stage II left breas t lower inner quadrant ER/IN weakly positive, Her2/ave negative, grade 3 invasive [...] 08/2017 Hospitalization History depression 02/07 Hospitalization History [facility] IM - depression 10/2018 Hospitalization History R lumpectomy, sentinel node biopsy ( Dr. Mckinney, [facility]) 04/2019 Hospitalization History drainage of postop breast he matoma (Dr. White, [facility]) 04/2019 Hospitalization History idiopathic intracranial hype rtension, started on acetazolamide ([facility]) 08/2019 Goals Section No Information Health Concerns No Information MEDICAL EQUIPMENT No Information MENTAL STATUS No Information FUNCTIONAL STATUS No Information ASSESSMENTS Encounter Date Diagnosis Assessment Notes Treatment Notes Treatm ent Clinical Notes Feb, Hypokalemia (ICD-10 - E87.6) PLAN OF TREATMENT Medication Medication Name Sig Start Date Stop Date Jobst Relief 30-40mmHg Medium - as directed topically Daily for 90 day(s) Feb, Future Test Test Name Order Date Basic Metabolic Profile (BMP) [id number] Next Appt Details Provider Name:Jamilah Bolaños, 2020-04-04 11:30:00 AM, [address], [place], [address], Provider Name:Mickey Gilmore, 10:40:00 AM, [address] [place], [address], Provider Name:Toyin Perez, 10:30:00 AM, [address], [place], [address], Provider Name:Netta Kaur, 13-05-14 10:30:00 AM, [address] [place], [address], Insurance Providers Payer Name Payer Address Payer Phone Insured Name Patient Relati onship to Insured Coverage Start Date Coverage End Date [facility] [employer] [facility] [address] [facility] [phone] [phone] BRADY CARVAJAL self
--- OUTSIDE RECORDS SUMMARY | 2020-04-09 14:00 | CCD | Continuity of Care Document ---
Author Author Mitra LAND P.A.-C. Organization Unknown Address [address] [place], [place] [address] Phone [phone] Care Team Providers Care Gynecologist Name Role Phone Jamilah Carpio DO AUTM [...] [facility], g47.33 Maggie Ruth 11/15/2018 Pyridostigmine [place] 60mg Tablet s Take 1 & 1/2 [...] lb BMI (Body Mass Index) 39.1 kg/m2 [place] Body Weight 125 lb 12/12/2019 5:36am BP Systolic 124 mmHg BP Diastolic 84 mmHg Heart Rate 80 /min Respiratory Rate 20 /min Results Test Acquired Date Facility Test Result H/L Range Note CBC With Differential 03/14/2020 [facility] White Blood Count 5.9 10 Normal 4.0-10.0 [...] 36.0-66.0 Lymph % 12.2 % Low 24.0-44.0 [place] % 9.1 % High 0.0-5.0 Eos % 5.1 % High 0.0-3.0 Baso % 0.8 % Normal 0.0-1.0 Immature Granulocyte % 1.4 % Normal 0-3.0 Nucleated Red Blood Cell % 0.0 % Normal 0-0 Neutrophils # 4.2 10 Normal 1.5-8.5 Lymph # 0.7 10 Low 1.5-5.0 [place] # 0.5 10 Normal 0.0-0.8 Eos # 0.3 10 Normal 0.0-0.5 Baso # 0.1 10 Normal 0.0-0.2 Comprehensive Metabolic Profil 03/14/2020 [facility] Glucose, Fasting 92 mg/dL Normal 70-100 Blood [...] Little GFR Left ESRD GFR <15 on [employer]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 G93.0 Cerebral cysts G70.00 [...] Land P.A.-C. 03/12/2020 M54.5 Low back pain Mirta Land P.A.-C. 03/12/2020 G47.33 Obstructive sleep apnea [...] Sherie, M.D. 12/12/2019 G93.0 Cerebral cysts Kevin JavdeA.-C. 12/12/2019 G70.00 Myasthenia gravis without (acute ) [...]
--- OUTSIDE RECORDS SUMMARY | 2020-04-09 14:00 | CCD ---
Author Author [facility] Organization [facility] Address Unknown Phone Unavailable Care Team Providers Care Ems Manager Name Role Phone Jamilah Bolaños Unavailable PROBLEMS Type Condition ICD9-CM Code [id number] Code Onset Dates Condition S tatus SNOMED Code Notes Problem Overactive bladder N32.81 Active 355501249 Problem Stress incontinence N39.3 Active 70122941 Problem HSV (herpes simplex virus) anogenital infection A6 0.9 Active 919763719 Problem Mixed incontinence N39.46 Active 264890794 Problem Body mass index (BMI) 40.0-44.9, adult Z68.41 A ctive 714910860 Problem Irregular menses N92.6 Active 72143034 Problem Fibromyalgia M79.7 Active 243192896 Problem Generalized pain R52 Active 54165722 Problem Insomnia, unspecified type G47.00 Active 34882 2000 Problem Myalgia M79.1 Active 49349231 Problem Other chronic pain G89.29 Active 58996238 Problem Depression, unspecified depression type F32.9 Active 54695134 Problem Gastroesophageal reflux disease, esophagitis pre sence not specified K21.9 Active 079455487 Problem Chronic pain disorder G89.4 Active 191558224 Problem 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 Active 913048926 Problem Infiltrating ductal carcinoma C50.919 Active 37 3429000 Problem Malignant neoplasm of lower-inner quadrant of ri ght female breast C50.311 Active 160551429 Problem Neoplastic malignant related fatigue R53.0 Act sherri 533946506 Problem Obstructive sleep apnea G47.33 Active 38769505 Problem Other elevated white blood cell (WBC) count D72.82 8 Active 978550913 Problem Myasthenia gravis G70.00 Active 18909500 Problem Hearing loss, unspecified hearing loss type, uns pecified laterality H91.90 Active 82953313 Problem Myasthenia gravis without (acute) exacerbation G70 .00 Active 89928206 Problem Breast hematoma N64.89 Active 167144543 Problem Infiltrating ductal carcinoma of right breast C50. 911 Active 188962451 Problem Constipation, unspecified constipation type K59.00 Active 38295697 ALLERGIES Allergen (clinical drug ingredient) Drug/Non Drug Allergy do cumented on EMR Reaction Allergy Type Onset Date Status Wellbutrin throat spasms Drug Allergy Active pregabalin Lyrica(NDC Code:[address]-51) fluid retentiom Drug Allerg y Active clindamycin Clindamycin HCl(NDC Code:[address]-88) heart burn Drug A llergy Active sulfamethoxazole / trimethoprim Bactrim DS(NDC Code:[address]-1 1) Diarrhea Drug Allergy Active Zanaflex itching Drug Allergy Active gabapentin Gabapentin(NDC Code:[address]-04) weakness and confusion Drug Allergy Active Flexeril irritability Drug Allergy Active amitriptyline Amitriptyline HCl(NDC Code:[address]-45) edema Dr ug Allergy Active metaxalone Skelaxin(NDC Code:[address]-10) itching Drug Allergy Active benztropine Cogentin(NDC Code:[address]-63) blurry eyes Drug Allergy Active valproate Depakote(NDC Code:[address]-94) does not metabo lize properly Drug Allergy Active trazodone TraZODone HCl(NDC Code:[address]-74) swelling Drug Jerod rgy Active ENCOUNTERS from 1979 to 2020-03-15 Encounter Location Date Provider Diagnosis [facility] [address] [place] [address] Feb, 20 Jamilah Felton-Tartell Suicidal ideation R45.851 and Diarrhea, unspecified type R19.7 IMMUNIZATIONS Vaccine Route Administration Date Status Influenza [...] Notes Start Da te End Date Status HydrOXYzine HCl 50 MG 2 tabs Orally before bedtime Active Aripiprazole 5 MG Oral for 30 Not-T aking Potassium 20 fr 1 tablet Orally Once a day Active Tamoxifen Citrate 20 MG 53 tab(s) Orally Once a day Active Cyclophosphamide 1 GM as directed Injection Not-Taking Docusate Sodium 100 MG Oral for 30 Active Omeprazole 20 MG TAKE ONE CAPSULE BY MOUTH EVERY DAY for 30 Active Naltrexone HCl 50 MG Oral for 30 No t-Taking Senna 8.6 MG 2 tablets at bedtime as needed Orally Once a day for 30 Active HydrOXYzine HCl 50 MG 1 tablet as needed Orally every 6 hrs Active Zaleplon 10 MG 1 capsule at bedtime as needed Orally Once a day Not-Taking Meloxicam 15 MG 1 tablet Orally Once a day for 30 day(s) 0 5 Nov, 2018 Active Mirtazapine 30 MG TAKE ONE TABLET BY MOUTH AT BEDTIME NEEDED FOR SLEEP Oral for 7 Not-Taking AcetaZOLAMIDE 250 MG 2 tablets Orally twice daily Sep, Active Melatonin 3 MG 1 tablet at bedtime as needed Orally Once a day for 30 day(s) Active Requip 2 MG 1 tablet 1 to 3 hours before bedtime Orally Once a day Not-Taking Vitamin D3 5000 UNIT 1 capsule Orally Once a day Active Tamoxifen Citrate 20 MG 1 tablet Orally Once a day Active Torsemide 20 MG 1 tab Orally Daily for 30 Active CellCept 500 MG 2 tablets Orally tid Active Hydrocodone-Acetaminophen 5-325 MG 1 tablet as needed Orally every 6 hrs Not-Taking Shower Chair without wheels as directed Dx: G70.00,M79 .7 Daily Use for 30 day(s) Sep, Active Suboxone 2-0.5 MG 2 films under the tongue and allow to dissolve Sublingual Once a day Active Myrbetriq 50 MG 1 tablet Orally Once a day for 90 days Not-Taking Artificial Tears 1.4 % Ophthalmic for 28 Active Adderall 20 MG 1 tablet Orally Twice a day Not-Taking [place] 3-6-9 Fatty Acids - as directed Orally Active Ramelteon 8 MG 1 tablet at bedtime as needed Orally Once a day Not-Taking Acyclovir 400 MG 1 tablet orally twice daily for 30 Active Docetaxel 160 MG/16ML as directed Intravenous Not-Taking FLUoxetine HCl 40 MG 1 capsule Orally Once a day for 30 day(s) Active Mestinon 60 MG 1 1/2 tablet Orally four times a day Active Lorazepam 1 MG (Schedule IV Drug) Oral for 30 Not-Taking Baclofen 10 MG 1 tab Orally Three times a day Active Cephalexin 500 MG 1 capsule Orally every 12 hrs for 10 day(s) Not-Taking Folic Acid 1 MG 1 tablet Orally Once a day Active Venlafaxine HCl ER 225 MG 1 tablet with food Orally Once a day Active PROCEDURES No Information RESULTS No Results REASON FOR VISIT [facility] inpatient mental health MEDICAL (GENERAL) HISTORY Type Description Date Medical History ovarian cysts Medical History GERD Medical History myasthenia gravis (follows with neurolog y) Medical History depression Medical History ADD 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 [facility] Medical History fibromyalgia Medical History OPHELIA with CPAP Medical History unremarkable lumbar spine MRI (12/2016) Medical History mild hearing loss (01/2017) Medical History normal Pap (12/2016) Medical History echocardiogram with mild mitral regurg ( 09/2017) Medical History lymphedema of legs Medical History clinical stage II left breas t lower inner quadrant [place] weakly positive, Her2/ave negative, grade 3 invasive [...] 08/2017 Hospitalization History depression 02/07 Hospitalization History [facility] - depression 10/2018 Hospitalization History R lumpectomy, sentinel node biopsy ( Dr. Mckinney, [facility]) 04/2019 Hospitalization History drainage of postop breast he matoma (Dr. White, [facility]) 04/2019 Hospitalization History idiopathic intracranial hype rtension, started on acetazolamide ([facility]) 08/2019 Goals Section No Information Health Concerns No Information MEDICAL EQUIPMENT No Information MENTAL STATUS No Information FUNCTIONAL STATUS No Information ASSESSMENTS Encounter Date Diagnosis Assessment Notes Treatment Notes Treatm ent Clinical Notes Feb, Suicidal ideation (ICD-10 - R45.851) She reports stabilization of mood, denies current SI. Intends to change her providers to [facility], has followup available. Feb, Diarrhea, unspecified type (ICD-10 - R19.7) Possibly secondary to change in medications. Labwork ordered to evaluate for other causes. PLAN OF TREATMENT Treatment Notes Assessment Notes Clinical Notes Suicidal ideation She reports stabiliz ation of mood, denies current SI. Intends to change her providers to [facility], has followup available. Diarrhea, unspecified type Possibly seco ndary to change in medications. Labwork ordered to evaluate for other causes. Treatment Notes Test Name Order Date FECAL OCCULT BLOOD (FOBT) 2020-03-15 GASTROINTESTINAL GI PANEL (GIPANEL) 2020-03-15 Next Appt Details Provider Name:Mickey Gilmore, 10:40:00 AM, [address] [place], [address], Provider Name:Toyin Perez, 10:30:00 AM, [address] [place], [address], Provider Name:Netta Kaur, 13-05-14 10:30:00 AM, [address] [place], [address], Insurance Providers Payer Name Payer Address Payer Phone Insured Name Patient Relati onship to Insured Coverage Start Date Coverage End Date [facility] [address] [facility] [phone] BRADY CARVAJAL self
--- OUTSIDE RECORDS SUMMARY | 2020-04-09 14:00 | CCD ---
Author Author [facility] Organization [facility] Address Unknown Phone Unavailable Care Team Providers Care Music Industry Internship Name Role Phone Jamilah Bolaños Unavailable PROBLEMS Type Condition ICD9-CM Code [id number] Code Onset Dates Condition S tatus SNOMED Code Notes Problem Overactive bladder N32.81 Active 289739724 Problem Stress incontinence N39.3 Active 08557060 Problem HSV (herpes simplex virus) anogenital infection A6 0.9 Active 124280058 Problem Mixed incontinence N39.46 Active 182471899 Problem Body mass index (BMI) 40.0-44.9, adult Z68.41 A ctive 612395712 Problem Irregular menses N92.6 Active 63171038 Problem Fibromyalgia M79.7 Active 894197709 Problem Generalized pain R52 Active 87053327 Problem Insomnia, unspecified type G47.00 Active 00751 2000 Problem Myalgia M79.1 Active 21316597 Problem Other chronic pain G89.29 Active 52101768 Problem Depression, unspecified depression type F32.9 Active 24023906 Problem Gastroesophageal reflux disease, esophagitis pre sence not specified K21.9 Active 983754427 Problem Chronic pain disorder G89.4 Active 675852876 Problem 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 Active 596630282 Problem Infiltrating ductal carcinoma C50.919 Active 37 1847550 Problem Malignant neoplasm of lower-inner quadrant of ri ght female breast C50.311 Active 275994950 Problem Neoplastic malignant related fatigue R53.0 Act sherri 878066432 Problem Obstructive sleep apnea G47.33 Active 11713386 Problem Other elevated white blood cell (WBC) count D72.82 8 Active 385341806 Problem Myasthenia gravis G70.00 Active 20245156 Problem Hearing loss, unspecified hearing loss type, uns pecified laterality H91.90 Active 85405736 Problem Myasthenia gravis without (acute) exacerbation G70 .00 Active 27502790 Problem Breast hematoma N64.89 Active 827088242 Problem Infiltrating ductal carcinoma of right breast C50. 911 Active 443429703 Problem Constipation, unspecified constipation type K59.00 Active 78064420 ALLERGIES Allergen (clinical drug ingredient) Drug/Non Drug Allergy do cumented on EMR Reaction Allergy Type Onset Date Status Wellbutrin throat spasms Drug Allergy Active pregabalin Lyrica(NDC Code:[address]-12) fluid retentiom Drug Allerg y Active clindamycin Clindamycin HCl(NDC Code:[address]-22) heart burn Drug A llergy Active sulfamethoxazole / trimethoprim Bactrim DS(NDC Code:[address]-6 1) Diarrhea Drug Allergy Active Zanaflex itching Drug Allergy Active gabapentin Gabapentin(NDC Code:[address]-75) weakness and confusion Drug Allergy Active Flexeril irritability Drug Allergy Active amitriptyline Amitriptyline HCl(NDC Code:[address]-83) edema Dr ug Allergy Active metaxalone Skelaxin(NDC Code:[address]-86) itching Drug Allergy Active benztropine Cogentin(NDC Code:[address]-96) blurry eyes Drug Allergy Active valproate Depakote(NDC Code:[address]-23) does not metabo lize properly Drug Allergy Active trazodone TraZODone HCl(NDC Code:[address]-41) swelling Drug Jerod rgy Active ENCOUNTERS from 1979 to 2020-03-10 Encounter Location Date Provider Diagnosis [facility] [address] [place] [address] July, Jamilah Bolaños IMMUNIZATIONS Vaccine Route Administration Date [...] Notes Start Da te End Date Status Potassium 20 fr 1 tablet Orally Once a day Active Venlafaxine HCl ER 225 MG 1 tablet with food Orally Once a day Active Tamoxifen Citrate 20 MG 53 tab(s) Orally Once a day Not-Taking Mestinon 60 MG 1 1/2 tablet Orally four times a day Active Omeprazole 20 MG TAKE ONE CAPSULE BY MOUTH EVERY DAY for 30 Active Tamoxifen Citrate 20 MG 1 tablet Orally Once a day Active CellCept 500 MG 2 tablets Orally tid Active Acyclovir 400 MG 1 tablet orally twice daily for 30 Active Ramelteon 8 MG 1 tablet at bedtime as needed Orally Once a day Not-Taking Folic Acid 1 MG 1 tablet Orally Once a day Active Shower Chair without wheels as directed Dx: G70.00,M79 .7 Daily Use for 30 day(s) Sep, Not-Taking Myrbetriq 50 MG 1 tablet Orally Once a day for 90 days Not-Taking Vitamin D3 5000 UNIT 1 capsule Orally Once a day Active Aripiprazole 5 MG Oral for 30 Not-T aking Zaleplon 10 MG 1 capsule at bedtime as needed Orally Once a day Active Cephalexin 500 MG 1 capsule Orally every 12 hrs for 10 day(s) Not-Taking Torsemide 20 MG 1 tab Orally Daily for 30 Active Requip 2 MG 1 tablet 1 to 3 hours before bedtime Orally Once a day Not-Taking Senna 8.6 MG 2 tablets at bedtime as needed Orally Once a day for 30 Active Docusate Sodium 100 MG Oral for 30 Not-Taking Meloxicam 15 MG 1 tablet Orally Once a day for 30 day(s) 0 Nov, Not-Taking Artificial Tears 1.4 % Ophthalmic for 28 Not-Taking Baclofen 10 MG 1 tab Orally Three times a day Active Mirtazapine 30 MG TAKE ONE TABLET BY MOUTH AT BEDTIME NEEDED FOR SLEEP Oral for 7 Active AcetaZOLAMIDE 250 MG 2 tablets Orally twice daily Sep, Active Naltrexone HCl 50 MG Oral for 30 Ac tive Lorazepam 1 MG (Schedule IV Drug) Oral for 30 Not-Taking Cyclophosphamide 1 GM as directed Injection Not-Taking Docetaxel 160 MG/16ML as directed Intravenous Not-Taking Hydrocodone-Acetaminophen 5-325 MG 1 tablet as needed Orally every 6 hrs Not-Taking Adderall 20 MG 1 tablet Orally Twice a day Not-Taking PROCEDURES No Information RESULTS No Results REASON FOR VISIT needs a 2020 transportation MEDICAL (GENERAL) HISTORY Type Description Date Medical History ovarian cysts Medical History GERD Medical History myasthenia gravis (follows with neurolog y) Medical History depression Medical History ADD 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 [facility] Medical History fibromyalgia Medical History OPHELIA with CPAP Medical History unremarkable lumbar spine MRI (12/2016) Medical History mild hearing loss (01/2017) Medical History normal Pap (12/2016) Medical History echocardiogram with mild mitral regurg ( 09/2017) Medical History lymphedema of legs Medical History clinical stage II left breas t lower inner quadrant ER/[place] weakly positive, Her2/ave negative, grade 3 invasive ductal carcinoma (03/2019); plan Taxol cyclophosphamide, followed by radiation Medical History idiopathic intracranial hypertension (2019) Surgical History cholecystectomy 2004 Surgical History tubal ligation 2009 Surgical History C section 2006 Surgical History thymectomy (for myasthenia gravis) 2004 Surgical History PRK surgery bilat Surgical History medtronics InterStem for bladder -17-2 017 Surgical History INTERSTIM REMOVAL 10/28/2017 Surgical [...] 08/2017 Hospitalization History depression 02/07 Hospitalization History [facility] IM - depression 10/2018 Hospitalization History R lumpectomy, sentinel node biopsy ( Dr. Mckinney, [facility]) 04/2019 Hospitalization History drainage of postop breast he matoma (Dr. White, [facility]) 04/2019 Hospitalization History idiopathic intracranial hype rtension, started on acetazolamide ([facility]) 08/2019 Goals Section No Information Health Concerns No Information MEDICAL EQUIPMENT No Information MENTAL STATUS No Information FUNCTIONAL STATUS No Information ASSESSMENTS No Information PLAN OF TREATMENT Medication Medication Name Sig Start Date Stop Date Omeprazole 20 MG TAKE ONE CAPSULE BY MOUTH EVERY DAY for 30 Next Appt Details Provider Name:Netta Kaur, 20 13-05-14 10:30:00 AM, [address] [place] [address], [id number], Insurance Providers Payer Name Payer Address Payer Phone Insured Name Patient Relati onship to Insured Coverage Start Date Coverage End Date [facility] [address] [facility] [phone] [phone] BRADY CARVAJAL self
--- OUTSIDE RECORDS SUMMARY | 2020-04-09 14:00 | CCD ---
Author Author [facility] Organization [facility] Address Unknown Phone Unavailable Care Team Providers Care Save All Operator Name Role Phone Jamilah Bolaños Unavailable PROBLEMS Type Condition ICD9-CM Code [id number] Code Onset Dates Condition S tatus SNOMED Code Notes Problem Overactive bladder N32.81 Active 484531428 Problem Stress incontinence N39.3 Active 16328562 Problem HSV (herpes simplex virus) anogenital infection A6 0.9 Active 100939243 Problem Mixed incontinence N39.46 Active 034704011 Problem Body mass index (BMI) 40.0-44.9, adult Z68.41 A ctive 717181062 Problem Irregular menses N92.6 Active 08243160 Problem Fibromyalgia M79.7 Active 808390650 Problem Generalized pain R52 Active 88504009 Problem Insomnia, unspecified type G47.00 Active 34151 2000 Problem Myalgia M79.1 Active 21111342 Problem Other chronic pain G89.29 Active 27925664 Problem Depression, unspecified depression type F32.9 Active 11360343 Problem Gastroesophageal reflux disease, esophagitis pre sence not specified K21.9 Active 985131522 Problem Chronic pain disorder G89.4 Active 682356112 Problem 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 Active 403341638 Problem Infiltrating ductal carcinoma C50.919 Active 37 0614840 Problem Malignant neoplasm of lower-inner quadrant of ri ght female breast C50.311 Active 739682769 Problem Neoplastic malignant related fatigue R53.0 Act sherri 788753725 Problem Obstructive sleep apnea G47.33 Active 48764800 Problem Other elevated white blood cell (WBC) count D72.82 8 Active 608969610 Problem Myasthenia gravis G70.00 Active 04643524 Problem Hearing loss, unspecified hearing loss type, uns pecified laterality H91.90 Active 36901815 Problem Myasthenia gravis without (acute) exacerbation G70 .00 Active 24624915 Problem Breast hematoma N64.89 Active 528194863 Problem Infiltrating ductal carcinoma of right breast C50. 911 Active 749263901 Problem Constipation, unspecified constipation type K59.00 Active 42432181 ALLERGIES Allergen (clinical drug ingredient) Drug/Non Drug Allergy do cumented on EMR Reaction Allergy Type Onset Date Status Wellbutrin throat spasms Drug Allergy Active pregabalin Lyrica(NDC Code:[address]-32) fluid retentiom Drug Allerg y Active clindamycin Clindamycin HCl(NDC Code:[address]-28) heart burn Drug A llergy Active sulfamethoxazole / trimethoprim Bactrim DS(NDC Code:[address]-2 1) Diarrhea Drug Allergy Active Zanaflex itching Drug Allergy Active gabapentin Gabapentin(NDC Code:[address]-56) weakness and confusion Drug Allergy Active Flexeril irritability Drug Allergy Active amitriptyline Amitriptyline HCl(NDC Code:[address]-74) edema Dr ug Allergy Active metaxalone Skelaxin(NDC Code:[address]-16) itching Drug Allergy Active benztropine Cogentin(NDC Code:[address]-34) blurry eyes Drug Allergy Active valproate Depakote(NDC Code:[address]-91) does not metabo lize properly Drug Allergy Active trazodone TraZODone HCl(NDC Code:[address]-67) swelling Drug Jerod rgy Active ENCOUNTERS from 1979 to 2020-03-13 Encounter Location Date Provider Diagnosis [facility] [address] [place] [address] Feb, Jamilah Bolaños IMMUNIZATIONS Vaccine Route Administration [...] 1 tablet Orally Twice a day Not-Taking [place] 3-6-9 Fatty Acids - as directed Orally [...] Information RESULTS No Results REASON FOR VISIT reason for med change MEDICAL (GENERAL) HISTORY Type Description Date Medical History ovarian cysts Medical History GERD Medical History myasthenia gravis (follows with neurolog y) Medical History depression Medical History ADD 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[facility] Medical History fibromyalgia Medical History OPHELIA with CPAP Medical History unremarkable lumbar spine MRI (12/2016) Medical History mild hearing loss (01/2017) Medical History normal Pap (12/2016) Medical History echocardiogram with mild mitral regurg ( 09/2017) Medical History lymphedema of legs Medical History clinical stage II left breas t lower inner quadrant ER/[place] weakly positive, Her2/ave negative, grade 3 invasive [...] 08/2017 Hospitalization History depression 02/07 Hospitalization History [facility] IM - depression 10/2018 Hospitalization History R lumpectomy, sentinel node biopsy ( Dr. Mckinney, [facility]) 04/2019 Hospitalization History drainage of postop breast he matoma (Dr. White, [facility]) 04/2019 Hospitalization History idiopathic intracranial hype rtension, started on acetazolamide ([facility]) 08/2019 Goals Section No Information Health Concerns No Information MEDICAL EQUIPMENT No Information MENTAL STATUS No Information FUNCTIONAL STATUS No Information ASSESSMENTS No Information PLAN OF TREATMENT Next Appt Details Provider Name:Mickey Gilmore, 10:40:00 AM, [facility] [place], [address], Provider Name:Toyin Perez, 10:30:00 AM, [address] [place], [address], Provider Name:Netta Kaur, 13-05-14 10:30:00 AM, [address] [place], [address], Insurance Providers Payer Name Payer Address Payer Phone Insured Name Patient Relati onship to Insured Coverage Start Date Coverage End Date [facility] [address] [facility] [phone] BRADY CARVAJAL self
--- OUTSIDE RECORDS SUMMARY | 2020-04-09 14:00 | CCD ---
Author Author [facility] Organization [facility] Address Unknown Phone Unavailable Care Team Providers Care Natural Remedy Consultant Name Role Phone Jamilah Bolaños Unavailable PROBLEMS Type Condition ICD9-CM Code [id number] Code Onset Dates Condition S tatus SNOMED Code Notes Problem Overactive bladder N32.81 Active 748015415 Problem Stress incontinence N39.3 Active 57095306 Problem HSV (herpes simplex virus) anogenital infection A6 0.9 Active 709213706 Problem Mixed incontinence N39.46 Active 801690890 Problem Body mass index (BMI) 40.0-44.9, adult Z68.41 A ctive 438660508 Problem Irregular menses N92.6 Active 01145361 Problem Fibromyalgia M79.7 Active 518824993 Problem Generalized pain R52 Active 65731966 Problem Insomnia, unspecified type G47.00 Active 03866 2000 Problem Myalgia M79.1 Active 79972120 Problem Other chronic pain G89.29 Active 96270172 Problem Depression, unspecified depression type F32.9 Active 01553943 Problem Gastroesophageal reflux disease, esophagitis pre sence not specified K21.9 Active 085047540 Problem Chronic pain disorder G89.4 Active 916182004 Problem 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 Active 284895587 Problem Infiltrating ductal carcinoma C50.919 Active 37 5042998 Problem Malignant neoplasm of lower-inner quadrant of ri ght female breast C50.311 Active 545178837 Problem Neoplastic malignant related fatigue R53.0 Act sherri 107891096 Problem Obstructive sleep apnea G47.33 Active 73442941 Problem Other elevated white blood cell (WBC) count D72.82 8 Active 034847101 Problem Myasthenia gravis G70.00 Active 98740891 Problem Hearing loss, unspecified hearing loss type, uns pecified laterality H91.90 Active 80798021 Problem Myasthenia gravis without (acute) exacerbation G70 .00 Active 48224073 Problem Breast hematoma N64.89 Active 056374939 Problem Infiltrating ductal carcinoma of right breast C50. 911 Active 282286733 Problem Constipation, unspecified constipation type K59.00 Active 38593115 ALLERGIES Allergen (clinical drug ingredient) Drug/Non Drug Allergy do cumented on EMR Reaction Allergy Type Onset Date Status Wellbutrin throat spasms Drug Allergy Active pregabalin Lyrica(NDC Code:[address]-16) fluid retentiom Drug Allerg y Active clindamycin Clindamycin HCl(NDC Code:[address]-78) heart burn Drug A llergy Active sulfamethoxazole / trimethoprim Bactrim DS(NDC Code:[address]-9 1) Diarrhea Drug Allergy Active Zanaflex itching Drug Allergy Active gabapentin Gabapentin(NDC Code:[address]-20) weakness and confusion Drug Allergy Active Flexeril irritability Drug Allergy Active amitriptyline Amitriptyline HCl(NDC Code:[address]-57) edema Dr ug Allergy Active metaxalone Skelaxin(NDC Code:[address]-55) itching Drug Allergy Active benztropine Cogentin(NDC Code:[address]-04) blurry eyes Drug Allergy Active valproate Depakote(NDC Code:[address]-10) does not metabo lize properly Drug Allergy Active trazodone TraZODone HCl(NDC Code:[address]-14) swelling Drug Jerod rgy Active ENCOUNTERS from 1979 to 2020-03-19 Encounter Location Date Provider Diagnosis [facility] [address] [place] [address] Feb, 20 Jamilah Felton-Tartell Peripheral edema R60.9 [...] 1 tablet Orally Twice a day Not-Taking Oakley 3-6-9 Fatty Acids - as directed Orally [...] RESULTS No Results REASON FOR VISIT needs compression stockings MEDICAL (GENERAL) HISTORY Type Description Date Medical History ovarian cysts Medical History GERD Medical History myasthenia gravis (follows with neurolog y) Medical History depression Medical History ADD 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 [facility] Medical History fibromyalgia Medical History OPHELIA with CPAP Medical History unremarkable lumbar spine MRI (12/2016) Medical History mild hearing loss (01/2017) Medical History normal Pap (12/2016) Medical History echocardiogram with mild mitral regurg ( 09/2017) Medical History lymphedema of legs Medical History clinical stage II left breas t lower inner quadrant ER/DC weakly positive, Her2/ave negative, grade 3 invasive [...] 08/2017 Hospitalization History depression 02/07 Hospitalization History [facility] - depression 10/2018 Hospitalization History R lumpectomy, sentinel node biopsy ( Dr. Mckinney, [facility]) 04/2019 Hospitalization History drainage of postop breast he matoma (Dr. White, [facility]) 04/2019 Hospitalization History idiopathic intracranial hype rtension, started on acetazolamide ([facility]) 08/2019 Goals Section No Information Health Concerns No Information MEDICAL EQUIPMENT No Information MENTAL STATUS No Information FUNCTIONAL STATUS No Information ASSESSMENTS Encounter Date Diagnosis Assessment Notes Treatment Notes Treatm ent Clinical Notes Feb, Peripheral edema (ICD-10 - R60.9) PLAN OF TREATMENT Medication Medication Name Sig Start Date Stop Date Jobst Relief 30-40mmHg Medium - as directed topically Daily for 90 day(s) Feb, Next Appt Details Provider Name:Jamilah Bolaños, 2020-04-04 11:30:00 AM, [address] [place] [address], [id number], Provider Name:Mickey Gilmore, 10:40:00 AM, [address] [place], [address], Provider Name:Toyin Perez, 10:30:00 AM, [address], [place], [address], Provider Name:Netta Kaur, 13-05-14 10:30:00 AM, [address] [place], [address], Insurance Providers Payer Name Payer Address Payer Phone Insured Name Patient Relati onship to Insured Coverage Start Date Coverage End Date [facility] [address] [facility] [address] BRADY CARVAJAL self
--- OUTSIDE RECORDS SUMMARY | 2020-04-09 14:00 | CCD ---
Author Author [facility] Organization [facility] Address Unknown Phone Unavailable Care Team Providers Care Hydraulic Dredge Operator Name Role Phone Netta Kaur Unavailable PROBLEMS Type Condition ICD9-CM Code [id number] Code Onset Dates Condition S tatus SNOMED Code Notes Problem Overactive bladder N32.81 Active 877537964 Problem Stress incontinence N39.3 Active 84204542 Problem HSV (herpes simplex virus) anogenital infection A6 0.9 Active 195265633 Problem Mixed incontinence N39.46 Active 831120817 Problem Body mass index (BMI) 40.0-44.9, adult Z68.41 A ctive 529779502 Problem Irregular menses N92.6 Active 62568579 Problem Fibromyalgia M79.7 Active 526935318 Problem Generalized pain R52 Active 32709504 Problem Insomnia, unspecified type G47.00 Active 72352 2000 Problem Myalgia M79.1 Active 30213278 Problem Other chronic pain G89.29 Active 11724813 Problem Depression, unspecified depression type F32.9 Active 78126265 Problem Gastroesophageal reflux disease, esophagitis pre sence not specified K21.9 Active 099515593 Problem Chronic pain disorder G89.4 Active 729504032 Problem 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 Active 808285388 Problem Infiltrating ductal carcinoma C50.919 Active 37 0859016 Problem Malignant neoplasm of lower-inner quadrant of ri ght female breast C50.311 Active 155601490 Problem Neoplastic malignant related fatigue R53.0 Act sherri 972733463 Problem Obstructive sleep apnea G47.33 Active 21847717 Problem Other elevated white blood cell (WBC) count D72.82 8 Active 664097119 Problem Myasthenia gravis G70.00 Active 57904121 Problem Hearing loss, unspecified hearing loss type, uns pecified laterality H91.90 Active 25837986 Problem Myasthenia gravis without (acute) exacerbation G70 .00 Active 51476890 Problem Breast hematoma N64.89 Active 187790433 Problem Infiltrating ductal carcinoma of right breast C50. 911 Active 828047382 Problem Constipation, unspecified constipation type K59.00 Active 78108705 ALLERGIES Allergen (clinical drug ingredient) Drug/Non Drug Allergy do cumented on EMR Reaction Allergy Type Onset Date Status Wellbutrin throat spasms Drug Allergy Active pregabalin Lyrica(ND Code:[address]-25) fluid retentiom Drug Allerg y Active clindamycin Clindamycin HCl(NDC Code:[address]-07) heart burn Drug A llergy Active sulfamethoxazole / trimethoprim Bactrim DS(ND Code:[address]-2 1) Diarrhea Drug Allergy Active Zanaflex itching Drug Allergy Active gabapentin Gabapentin(ND Code:[address]-01) weakness and confusion Drug Allergy Active Flexeril irritability Drug Allergy Active amitriptyline Amitriptyline HCl(ND Code:[address]-82) edema Dr ug Allergy Active metaxalone Skelaxin(NDC Code:[address]-22) itching Drug Allergy Active benztropine Cogentin(NDC Code:[address]-30) blurry eyes Drug Allergy Active valproate Depakote(ND Code:[address]-29) does not metabo lize properly Drug Allergy Active trazodone TraZODone HCl(ND Code:[address]-96) swelling Drug Jerod rgy Active ENCOUNTERS from 1979 to 2020-02-14 Encounter Location [place] [address] Dec, Netta Kaur Infiltrating ductal carcinom a of right breast C50.911 ; S/P lumpectomy, right breast Z98.890 and Myasthenia gravis G70.00 IMMUNIZATIONS Vaccine Route Administration Date Status Influenza [...] Yes Drug and Alcohol Question Answer Notes Interpretation: No problems reported Total Score: 0 Alcohol Screening: Question Answer Notes Did you [...] REASON FOR REFERRAL No Information VITAL SIGNS Weight 234 lbs Dec, Height 65 in Dec, BMI 38.94 kg/m2 Dec, Heart Rate 98 /min Dec, Respiratory Rate 18 /min Dec, Temperature 97.1 degrees Fahrenheit Dec, Oximetry 97 Dec, Blood pressure systolic 122 mm Hg Dec, Blood pressure diastolic 58 mm Hg Dec, MEDICATIONS Medication SIG (Take, Route, Frequency, Duration) [...] Information RESULTS No Results REASON FOR VISIT dx R breast ca, 6 month f/u after R lumpectomy and R SLNbx, s/p chemo and RT MEDICAL (GENERAL) HISTORY Type Description Date Medical History ovarian cysts Medical History GERD Medical History myasthenia gravis (follows with neurolog y) Medical History depression Medical History ADD 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 History TRANSFORMATION SPECIALIST care through [facility] Medical History fibromyalgia Medical History OPHELIA with CPAP Medical History unremarkable lumbar spine MRI (12/2016) Medical History mild hearing loss (01/2017) Medical History normal Pap (12/2016) Medical History echocardiogram with mild mitral regurg ( 09/2017) Medical History lymphedema of legs Medical History clinical stage II left breas t lower inner quadrant ER/FL weakly positive, Her2/ave negative, grade 3 invasive [...] 08/2017 Hospitalization History depression 02/07 Hospitalization History [facility] - depression 10/2018 Hospitalization History R lumpectomy, sentinel node biopsy ( Dr. Mckinney, [facility]) 04/2019 Hospitalization History drainage of postop breast he matoma (Dr. White, [facility]) 04/2019 Hospitalization History idiopathic intracranial hype rtension, started on acetazolamide ([facility]) 08/2019 Goals Section No Information Health Concerns No Information MEDICAL EQUIPMENT No Information MENTAL STATUS No Information FUNCTIONAL STATUS No Information ASSESSMENTS Encounter Date Diagnosis Assessment Notes Treatment Notes Treatm ent Clinical Notes Dec, Infiltrating ductal carcinoma of right breast (I CD-10 - C50.911) RIGHT BREAST CANCER IDC and DCIS, both GRADE 3, pT2(3.5cm) pN0 (0/6sln) cM0 ER 30%, PR30%, HER2 NEGATIVE / rpt ER 30% FL 40% HER2 NEGATIVE ALL MARGINS NEGATIVE Oncotype from [facility] bx: 68 STAGE IIA according to AJCC Breast Cancer Staging Manual 8th ed. S/P RIGHT LUMPECTOMY AND RIGJHT SLNBX 05/17/2019, s/p R hematoma evacuation 05/18/2019 s/p Chemo and RT, nor on Tamoxifen PLAN: 1. f/u with me in April for 1 year postop appt 2. Genetic testing discussed previously and was negative 3. Continue Tamoxifen with [facility] 4. B/L diagnostic mammo ordered for March 2020 Ms. Carvajal is doing well. from oncological point. She healed well. She comp;leted Chemo and RT and now is on Tamoxiifen which she tolerates well. I encouraged her to do self breast exams. her diagnostic mammo is ordered for March. She will come see me in April for 1 years postop appt. All questions were answered. Patient expressed understanding and agrees with the plan. Dec, S/P lumpectomy, right breast (ICD-10 - Z98.890) Dec, Myasthenia gravis (ICD-10 - G70.00) PLAN OF TREATMENT Medication Medication Name Sig Start Date Stop Date Omeprazole 20 MG TAKE ONE CAPSULE BY MOUTH EVERY DAY for 30 Treatment Notes Assessment Notes Clinical Notes Infiltrating ductal carcinoma of right breast RIGHT BR EAST CANCER IDC and DCIS,both GRADE 3, pT2(3.5cm) pN0 (0/6sln) cM0ER 30%, PR30%, HER2 NEGATIVE / rpt ER 30% FL 40% HER2 NEGATIVEALL MARGINS NEGATIVEOncotype from Core bx: 69STAGE IIA according to AJCC Breast Cancer Staging Manual 8th ed.S/P RIGHT LUMPECTOMY AND RIGJHT SLNBX 05/17/2019,s/p R hematoma evacuation 05/18/2019s/p Chemo and RT, nor on TamoxifenPLAN:1. f/u with me in April for 1 year postop appt2. Genetic testing discussed previously and was negative3. Continue Tamoxifen with [facility]4. B/L diagnostic mammo ordered for March 2020Ms. Carvajal is doing well. from oncological point. She healed well. She comp;leted Chemo and RT and now is on Tamoxiifen which she tolerates well.I encouraged her to do self breast exams. her diagnostic mammo is ordered for March. She will come see me in April for 1 years postop appt.All questions were answered. Patient expressed understanding and agrees with the plan. Next Appt Details Provider Name:Netta Kaur, 20 21-02-15 10:30:00 AM, [address] [place], [address], Insurance Providers Payer Name Payer Address Payer Phone Insured Name Patient Relati onship to Insured Coverage Start Date Coverage End Date [facility] COMMUNITY PLAN [facility] [address] [facility] [phone] BRADY CARVAJAL self
--- OUTSIDE RECORDS SUMMARY | 2020-04-09 14:00 | CCD | Continuity of Care Document ---
Author Author [facility] Organization Unknown Address [address] [place], [place] [address] Phone [phone] Care Team Providers Care Healthcare Administration Intern Name Role Phone Jamilah Carpio DO AUTM [phone] Problems Active Problems Provider Date Numbness of [...] [facility] [place], g47.33 Maggie Ruth 11/15/2018 Pyridostigmine [place] 60mg Tablet s Take 1 & 1/2 Tablets By Mouth Four Times A Day 180tabs Melanie Leal M.D. 04/28/2018 Mycophenolate Mofetil 500mg Tablet s Take Two Tablets By Mouth Three Times A Day Maximum Daily Dose = 6 Tablets 180tabs Melanie Rehman M.D. 03/11/2018 Baclofen 10mg Tablets Take One Tablet By Mouth Three Times A Day as Needed 90tabs Kranthi Rtuh 11/30/2017 Cpap Mask And Supplies parish, g47.33 1units Melanie Rehman M.D. 01/24/2016 Immunizations Description No Information Available Vital Signs Date Vital Result Comment 12/12/2019 5:36am BP Systolic 124 mmHg BP Diastolic 84 mmHg Heart Rate 80 /min Respiratory Rate 16 /min Height 65 inches 5'5" Weight 235.00 lb BMI (Body Mass Index) 39.1 kg/m2 Rector Body Weight 125 lb 12/12/2019 5:36am BP Systolic 124 mmHg BP Diastolic 84 mmHg Heart Rate 80 /min Respiratory Rate 20 /min Results Description No Information Available Procedures Date Code Description Status 12/19/2019 61422 Nerve Conduction 13+ Studies Com pleted 12/19/2019 35062 Needle Electromyography Complete , Five Or More Muscles Studied Completed 12/19/2019 11948 Needle Electromyography Complete , Five Or More Muscles Studied Completed Medical Devices Description No Information Available Encounters Type Date Location Provider Dx Diagnosis Office Visit 12/12/2019 2:45p Main office - [place] Mitra samayoa P.A.-C. G93.0 Cerebral cysts G70.00 [...] Land P.A.-C. 03/12/2020 G93.2 Benign intracranial hypertension iMtra Land P.A.-C. 03/12/2020 M54.81 Occipital neuralgia Rex Bennett.A.-C. 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 03/12/2020 M79.7 Fibromyalgia Rex Javed.A.-C. 03/12/2020 M62.838 Other muscle spasm Mitra sal, P.A.-C. 03/12/2020 M54.2 Cervicalgia Mitra Land P.A.-C. 03/12/2020 M54.5 Low back pain Rex Javed.A.-C. 03/12/2020 G47.33 Obstructive sleep apnea (adult) (pediatric) Rex Javed.A.-C. 03/12/2020 G24.01 Drug induced subacute dyskinesia Rex Javed.A.-C. 12/19/2019 M25.579 Pain in unspecified ankle and frankie ints of unspecified foot Melanie Sherie, M.D. 12/19/2019 M54.5 Low back pain Melanie Sherie, M.D . 12/19/2019 R20.2 Paresthesia of skin Melanie Sherie, M.D. 12/19/2019 G60.9 Hereditary and idiopathic neurop athy, unspecified Melanie Sherie, M.D. 12/12/2019 G93.0 Cerebral cysts Rex Javed.A.-C. 12/12/2019 G70.00 Myasthenia gravis without (acute ) exacerbation Rex Javed.A.-C. 12/12/2019 M54.81 Occipital neuralgia Rex Bennett.A.-C. 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 12/12/2019 M54.2 Cervicalgia Rex Javed.A.-C. 12/12/2019 M54.5 Low back pain Rex Javed.A.-C. 12/12/2019 M62.838 Other muscle spasm Mitra sal P.A.-C. 12/12/2019 M79.7 Fibromyalgia Mitra Land P.A.-C. 12/12/2019 G56.01 Carpal tunnel syndrome, right up per limb Mitra Land P.A.-C. 12/12/2019 G47.33 Obstructive sleep apnea (adult) (pediatric) Mitra Land P.A.-C. 12/12/2019 G24.01 Drug induced subacute dyskinesia Storm JavedCZeke 12/12/2019 G93.2 Benign intracranial hypertension Mitra Land P.A.-C. 12/12/2019 R20.2 Paresthesia of skin Mitra samayoa P.A.-C. Plan of Treatment No Information Available Functional Status Description No Information Available Mental Status Description No Information Available Referrals Description No Information Available
--- OUTSIDE RECORDS SUMMARY | 2020-04-09 14:01 | CCD ---
Author Author Sree Mitra Abimbola Organization Unknown Address [address] [place] [address] Phone Care Team Providers Care Card Writer Hand Name Role Phone Abimbola Balbuena PCP Allergies, Adverse Reactions, Alerts Concept Allergy Name Reaction Severity Onset Date Status Documentation Date Phone Number Npid Taxonomy Code Taxonomy Desc Author Last Name Author Valente rst Name Concept Type 175087 mirtazapine unspecified, excessive sedation 2018 Active 04/07/2016 [id number] Licensed Practical Nurse Johanna hooper RXNORM 281154 amitriptyline LE edema & Angioedema 07/20/2017 Active 0 07/20/2017 0809443569 [id number] Psychiatric/Mental Health [facility] RXNORM 145065 prazosin Fatigue 02/26/2017 Active 02/24/2017 8829397193 10 [id number] Psychiatric/Mental Health [facility] RXNORM 510773 Abilify (aripiprazole) unspecified 05/23/2016 Active 3554163868 [id number] Psychiatric/Mental Health [facility] RXNORM 857778 Cyclobenzaprine Group questionable: irritability Active 03/13/2014 4980951661 [id number] Psychiatric/Mental Health Nans Nereyda FDDC 353374 benztropine questionable Active 03/13/2014 882243354 5 [id number] Psychiatric/Mental Health Nans [facility]da RXNORM 9844023 Depakote (divalproex) questionable Active 03/13 0714913928 [id number] Psychiatric/Mental Health Nans Nereyda RX NORM 156946 Wellbutrin (bupropion hcl) difficulty breathing: throat sp asms Active 03/13/2014 4143614631 [id number] Psychiatric/Mental Health Na ns Nereyda RXNORM Problem List Concept Problem Description Status Start Date Created Date Resolv ed Date Snomed Code F33.1 Major Depressive Disorder, Recurrent episode, Moderate Active 03/31/2019 03/31/2019 F90.2 Attention-Deficit/Hyperactivity Disorder, Combin ed presentation Active 07/24/2016 07/24/2016 F41.1 Generalized Anxiety Disorder Active 02/12/2015 02/12/2015 Medications Rx Norm Medication Route Route Concept Start Date Stop Date Dosage Nestor quency Duration Formula Strength Dosage Form Dosage Form Code Dosage Description Medication Id Account Npid Author First Name Author Last Name Taxonomy Code Taxonomy Desc Phone Number [phone] naltrexone by mouth [id number] 12/26/2019 once a day 50 mg tablet as directed 59378 185143 [id number] Abimbola Balbuena [id number] Nurse Practition er [phone] 849645 Clozaril by mouth H40089 12/26/2019 01/25/2020 at bedtime 30 1 00 mg tablet as directed 46750 894241 [id number] Abimbola Balbuena [id number] Nurse Practitioner [phone] 583257 hydroxyzine HCl by mouth [id number] 12/26/2019 01/25/2020 four time s a day 30 50 mg tablet as needed 07068 808064 [id number] Abimbola Balbuena [id number] Nurse Practitioner [id number] 568988 Prozac by mouth Z82724 11/22/2019 02/24/2020 once a day 30 20 mg capsule 08624 466685 [id number] Abimbola Balbuena [id number] Nurse Clarisa ctitioner [phone] 800537 mirtazapine by mouth [id number] 07/28/2019 03/25/2020 at bedtime 30 30 mg tablet 13798 332117 [id number] Abimbola Balbuena [id number] Nurse Rex letitioner [phone] 461389 venlafaxine by mouth [id number] 11/22/2019 03/25/2020 every morning 30 75 mg tablet extended release 24hr 84293 075238 [id number] Abimbola Balbuena [id number] Nurse Practitioner [id number] Social History Social History Element Description Concept Effective Date Smoking Status Unknown if ever smoked [id number] Immunizations No Data in Section Vital Signs No Data in Section Procedures Date Concept Id Description Targeted Site Concept Targeted Site Concept Type 01/17/2020 18792 E/M Level 3 - Established Patient CPT Patient has no history of implantable de vices Encounters Encounter Start Date End Date Encounter Type Description Diagnosis Di agnosis Desc Location Author First Name Author Last Name Npid Taxonomy Cod e Taxonomy Desc Phone Number Location Addr1 Location Addr2 Location [facility] Location Sta te Location [facility] [id number] 01/17/2020 01/17/2020 54635 E/M Level 3 - Established Pa tient F33.1 Major depressive disorder, recurrent, moderate [facility] Abimbola [id number] Nurse Practitioner [phone] [address] [place] [address] [place] [phone] Plan of Treatment No Data in Section Lab Results No Data in Section Instructions No Data in Section Insurance Providers Insurance Id Policy Effective Date Policy Thru Date Company N lewis [id number] [address]
--- OUTSIDE RECORDS SUMMARY | 2020-04-09 14:01 | CCD ---
Author Author [facility] Organization [facility] Address Unknown Phone Unavailable Care Team Providers Care Maintenance Pipefitter Name Role Phone Jamilah Bolaños Unavailable PROBLEMS Type Condition ICD9-CM Code [id number] Code Onset Dates Condition S tatus SNOMED Code Notes Problem Overactive bladder N32.81 Active 512048455 Problem Stress incontinence N39.3 Active 60309173 Problem HSV (herpes simplex virus) anogenital infection A6 0.9 Active 991493764 Problem Mixed incontinence N39.46 Active 292936083 Problem Body mass index (BMI) 40.0-44.9, adult Z68.41 A ctive 505454371 Problem Irregular menses N92.6 Active 26045778 Problem Fibromyalgia M79.7 Active 480307636 Problem Generalized pain R52 Active 09907732 Problem Insomnia, unspecified type G47.00 Active 04344 2000 Problem Myalgia M79.1 Active 23666894 Problem Other chronic pain G89.29 Active 68469728 Problem Depression, unspecified depression type F32.9 Active 28513942 Problem Gastroesophageal reflux disease, esophagitis pre sence not specified K21.9 Active 766741010 Problem Chronic pain disorder G89.4 Active 417008520 Problem 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 Active 429718200 Problem Infiltrating ductal carcinoma C50.919 Active 37 3331991 Problem Malignant neoplasm of lower-inner quadrant of ri ght female breast C50.311 Active 592472442 Problem Neoplastic malignant related fatigue R53.0 Act sherri 941832494 Problem Obstructive sleep apnea G47.33 Active 55110580 Problem Other elevated white blood cell (WBC) count D72.82 8 Active 167890186 Problem Myasthenia gravis G70.00 Active 08414096 Problem Hearing loss, unspecified hearing loss type, uns pecified laterality H91.90 Active 97656704 Problem Myasthenia gravis without (acute) exacerbation G70 .00 Active 90327577 Problem Breast hematoma N64.89 Active 574939100 Problem Infiltrating ductal carcinoma of right breast C50. 911 Active 375936160 Problem Constipation, unspecified constipation type K59.00 Active 51006358 ALLERGIES Allergen (clinical drug ingredient) Drug/Non Drug Allergy do cumented on EMR Reaction Allergy Type Onset Date Status Wellbutrin throat spasms Drug Allergy Active pregabalin Lyrica(NDC Code:[address]-13) fluid retentiom Drug Allerg y Active clindamycin Clindamycin HCl(NDC Code:[address]-23) heart burn Drug A llergy Active sulfamethoxazole / trimethoprim Bactrim DS(NDC Code:[address]-6 1) Diarrhea Drug Allergy Active Zanaflex itching Drug Allergy Active gabapentin Gabapentin(NDC Code:[address]-77) weakness and confusion Drug Allergy Active Flexeril irritability Drug Allergy Active amitriptyline Amitriptyline HCl(NDC Code:[address]-57) edema Dr ug Allergy Active metaxalone Skelaxin(NDC Code:[address]-03) itching Drug Allergy Active benztropine Cogentin(NDC Code:[address]-82) blurry eyes Drug Allergy Active valproate Depakote(NDC Code:[address]-76) does not metabo lize properly Drug Allergy Active trazodone TraZODone HCl(NDC Code:[address]-16) swelling Drug Jerod rgy Active ENCOUNTERS from 1979 to 2020-01-12 Encounter Location Date Provider Diagnosis [facility] [address] [place] [id number] Dec, Jamilah [place] IMMUNIZATIONS Vaccine Route Administration Date Status Influenza [...] MEDICATIONS Medication SIG (Take, Route, Frequency, Duration) Start Date En d Date Status Potassium 20 fr 1 tablet [...] CellCept 500 MG 2 tablets Orally tid Acti ve Acyclovir 400 MG 1 tablet orally twice [...] Active Aripiprazole 5 MG Oral for 30 Not-Taking Zaleplon 10 MG 1 capsule at bedtime [...] as needed Orally Once a day for 3 0 Active Docusate Sodium 100 MG Oral for 30 Not-T aking Meloxicam 15 MG 1 tablet Orally Once a day for 30 day(s) Nov, Not-Taking Artificial Tears 1.4 % Ophthalmic for 28 Not-Taking Baclofen 10 MG 1 tab Orally Three times a day Active Mirtazapine 30 MG TAKE ONE TABLET BY MOUTH AT BEDTIME NEEDED FOR SLEEP Oral for 7 Active AcetaZOLAMIDE 250 MG 2 tablets Orally twice daily Sep, Active Naltrexone HCl 50 MG Oral for 30 Active Lorazepam 1 MG (Schedule IV Drug) Oral for 30 Not-Taking Cyclophosphamide 1 GM as directed Injection Not-Taking Docetaxel 160 MG/16ML as directed Intravenous Not-Taking Hydrocodone-Acetaminophen 5-325 MG 1 tablet as needed Orally every 6 hrs Not-Taking Adderall 20 MG 1 tablet Orally Twice a day Not-Taking PROCEDURES No Information RESULTS No Results REASON FOR VISIT omeprazole MEDICAL (GENERAL) HISTORY Type Description Date Medical History ovarian cysts Medical History GERD Medical History myasthenia gravis (follows with neurolog y) Medical History depression Medical History ADD Medical History 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 through [facility] Medical History fibromyalgia Medical History OPHELIA with CPAP Medical History unremarkable lumbar spine MRI (12/2016) Medical History mild hearing loss (01/2017) Medical History normal Pap (12/2016) Medical History echocardiogram with mild mitral regurg ( 09/2017) Medical History lymphedema of legs Medical History clinical stage II left breas t lower inner quadrant ER/[place] weakly positive, Her2/ave negative, grade 3 invasive [...] 08/2017 Hospitalization History depression 02/07 Hospitalization History [facility] IM - depression 10/2018 Hospitalization History R lumpectomy, sentinel node biopsy ( Dr. Mckinney, [place]) 04/2019 Hospitalization History drainage of postop breast he matoma (Dr. White, [facility]) 04/2019 Hospitalization History idiopathic intracranial hype rtension, started on acetazolamide ([place]) 08/2019 Goals Section No Information Health Concerns No Information MEDICAL EQUIPMENT No Information MENTAL STATUS No Information FUNCTIONAL STATUS No Information ASSESSMENTS No Information PLAN OF TREATMENT Medication Medication Name Sig Start Date Stop Date Omeprazole 20 MG TAKE ONE CAPSULE BY MOUTH EVERY DAY for 30 Next Appt Details Provider Name:Netta Kaur, 20 13-05-14 10:30:00 AM, [address] [place] [address], [id number], Insurance Providers Payer Name Payer Address Payer Phone Insured Name Patient Relati onship to Insured Coverage Start Date Coverage End Date [facility] [address] [facility] [id number] BRADY CARVAJAL self
--- OUTSIDE RECORDS SUMMARY | 2020-04-09 14:02 | CCD ---
Author Author [facility] Organization [facility] Address Unknown Phone Unavailable Care Team Providers Care Advertising Director Name Role Phone LETI, J NIKKO NEWSPAPER CARRIER Unavailable Unavailable LETI, J NIKKO NEWSPAPER CARRIER Unavailable Unavailable LETI, J NIKKO NEWSPAPER CARRIER Unavailable Unavailable LETI, J NIKKO NEWSPAPER CARRIER Unavailable Unavailable LETI, J NIKKO NEWSPAPER CARRIER Unavailable Unavailable LETI, J NIKKO NEWSPAPER CARRIER Unavailable Unavailable LETI, J NIKKO NEWSPAPER CARRIER Unavailable Unavailable LETI, J NIKKO NEWSPAPER CARRIER Unavailable Unavailable LETI, J NIKKO NEWSPAPER CARRIER Unavailable Unavailable LETI, J NIKKO NEWSPAPER CARRIER Unavailable Unavailable LETI, J NIKKO NEWSPAPER CARRIER Unavailable Unavailable LETI, J NIKKO NEWSPAPER CARRIER Unavailable Unavailable LETI, J NIKKO NEWSPAPER CARRIER Unavailable Unavailable LETI, J NIKKO NEWSPAPER CARRIER Unavailable Unavailable LETI, J NIKKO NEWSPAPER CARRIER Unavailable Unavailable LETI, J NIKKO NEWSPAPER CARRIER Unavailable Unavailable LETI, J NIKKO NEWSPAPER CARRIER Unavailable Unavailable LETI, J NIKKO NEWSPAPER CARRIER Unavailable Unavailable LETI, J NIKKO NEWSPAPER CARRIER Unavailable Unavailable LETI, J NIKKO NEWSPAPER CARRIER Unavailable Unavailable LETI, J NIKKO NEWSPAPER CARRIER Unavailable Unavailable LETI, J NIKKO NEWSPAPER CARRIER Unavailable Unavailable LETI, J NIKKO NEWSPAPER CARRIER Unavailable Unavailable LETI, J NIKKO NEWSPAPER CARRIER Unavailable Unavailable LETI, J NIKKO NEWSPAPER CARRIER Unavailable Unavailable LETI, J NIKKO NEWSPAPER CARRIER Unavailable Unavailable Kranthi Encarnacion MD Unavailable Unavailable Kranthi Encarnacion MD Unavailable Unavailable Kranthi Encarnacion MD Unavailable Unavailable Kranthi Encarnacion MD Unavailable Unavailable Kranthi Encarnacion MD Unavailable Unavailable Kranthi Encarnacion MD Unavailable Unavailable Kranthi Encarnacion MD Unavailable Unavailable Kranthi Encarnacion MD Unavailable Unavailable Kranthi Encarnacion MD Unavailable Unavailable Kranthi Encarnacion MD Unavailable Unavailable Kranthi Encarnacion MD Unavailable Unavailable Kranthi Encarnacion MD Unavailable Unavailable Kranthi Encarnacion MD Unavailable Unavailable Kranthi Encarnacion MD Unavailable Unavailable Kranthi Encarnacion MD Unavailable Unavailable Kranthi Encarnacion MD Unavailable Unavailable Kranthi Encarnacion MD Unavailable Unavailable Kranthi Encarnacion MD Unavailable Unavailable Kranthi Encarnacion MD Unavailable Unavailable Kranthi Encarnacion MD Unavailable Unavailable Kranthi Encarnacion MD Unavailable Unavailable Kranthi Encarnacion MD Unavailable Unavailable Kranthi Encarnacion MD Unavailable Unavailable Kranthi Encarnacion MD Unavailable Unavailable Kranthi Encarnacion MD Unavailable Unavailable Kranthi Encarnacion MD Unavailable Unavailable Kranthi Encarnacion MD Unavailable Unavailable Kranthi Encarnacion MD Unavailable Unavailable Kranthi Encarnacion MD Unavailable Unavailable Kranthi Encarnacion MD Unavailable Unavailable Kranthi Encarnacion MD Unavailable Unavailable Kranthi Encarnacion MD Unavailable Unavailable Kranthi Encarnacion MD Unavailable Unavailable Kranthi Encarnacion MD Unavailable Unavailable Kranthi Encarnacion MD Unavailable Unavailable Kranthi Encarnacion MD Unavailable Unavailable Kranthi Encarnacion MD Unavailable Unavailable Kranthi Encarnacion MD Unavailable Unavailable Kranthi Encarnacion MD Unavailable Unavailable Kranthi Encarnacion MD Unavailable Unavailable Kranthi Encarnacion MD Unavailable Unavailable Kranthi Encarnacion MD Unavailable Unavailable Kranthi Encarnacion MD Unavailable Unavailable Kranthi Encarnacion MD Unavailable Unavailable Kranthi Encarnacion MD Unavailable Unavailable Kranthi Encarnacion MD Unavailable Unavailable Kranthi Encarnacion MD Unavailable Unavailable Kranthi Encarnacion MD Unavailable Unavailable Kranthi Encarnacion MD Unavailable Unavailable Kranthi Encarnacion MD Unavailable Unavailable Kranthi Encarnacion MD Unavailable Unavailable Kranthi Encarnacion MD Unavailable Unavailable Kranthi Encarnacion MD Unavailable Unavailable Kranthi Encarnacion MD Unavailable Unavailable Kranthi Encarnacion MD Unavailable Unavailable Kranthi Encarnacion MD Unavailable Unavailable Kranthi Encarnacion MD Unavailable Unavailable Kranthi Encarnacion MD Unavailable Unavailable Kranthi Encarnacion MD Unavailable Unavailable Kranthi Encarnacion MD Unavailable Unavailable Kranthi Encarnacion MD Unavailable Unavailable Kranthi Encarnacion MD Unavailable Unavailable Kranthi Encarnacion MD Unavailable Unavailable Kranthi Encarnacion MD Unavailable Unavailable Kranthi Encarnacion MD Unavailable Unavailable Kranthi Encarnacion MD Unavailable Unavailable Kranthi Encarnacion MD Unavailable Unavailable Kranthi Encarnacion MD Unavailable Unavailable Kranthi Encarnacion MD Unavailable Unavailable Kranthi Encarnacion MD Unavailable Unavailable Kranthi Encarnacion MD Unavailable Unavailable Kranthi Encarnacion MD Unavailable Unavailable Kranthi Encarnacion MD Unavailable Unavailable Kranthi Encarnacion MD Unavailable Unavailable Kranthi Encarnacion MD Unavailable Unavailable Kranthi Encarnacion MD Unavailable Unavailable Kranthi Encarnacion MD Unavailable Unavailable Nela Minor MD Unavailable Unavailable Nela Minor MD Unavailable Unavailable Nela Minor MD Unavailable Unavailable Nela Minor MD Unavailable Unavailable Nela Minor MD Unavailable Unavailable Nela Minor MD Unavailable Unavailable Nela Minor MD Unavailable Unavailable Nela Minor MD Unavailable Unavailable Nela Minor MD Unavailable Unavailable Nela Minor MD Unavailable Unavailable Nela Minor MD Unavailable Unavailable Nela Minor MD Unavailable Unavailable Nela Minor MD Unavailable Unavailable Nela Minor MD Unavailable Unavailable Nela Minor MD Unavailable Unavailable Nela Minor MD Unavailable Unavailable Nela Minor MD Unavailable Unavailable Nela Minor MD Unavailable Unavailable Nela Minor MD Unavailable Unavailable HankNela MD Unavailable Unavailable HankNela MD Unavailable Unavailable Hank, Nela Esquivel MD Unavailable Unavailable Hank, Nela Esquivel MD Unavailable Unavailable Hank, Nela Esquivel MD Unavailable Unavailable Hank, Nela Esquivel MD Unavailable Unavailable Hank, Nela Esquivel MD Unavailable Unavailable Hank, Nela Esquivel MD Unavailable Unavailable Hank, Nela Esquivel MD Unavailable Unavailable Hank, Nela Esquivel MD Unavailable Unavailable Hank, Nela Esquivel MD Unavailable Unavailable Hank, Nela Esquivel MD Unavailable Unavailable Hank, Nela Esquivel MD Unavailable Unavailable Hank, Nela Esquivel MD Unavailable Unavailable Hank, Nela Esquivel MD Unavailable Unavailable Hank, Nela Esquivel MD Unavailable Unavailable Hank, Nela Esquivel MD Unavailable Unavailable Hank, Nela Esquivel MD Unavailable Unavailable Hank, Nela Esquivel MD Unavailable Unavailable HankNela MD Unavailable Unavailable HankNela MD Unavailable Unavailable HankNela MD Unavailable Unavailable HankNela MD Unavailable Unavailable HankNela MD Unavailable Unavailable HankNela MD Unavailable Unavailable HankNela MD Unavailable Unavailable HankNela MD Unavailable Unavailable HankNela MD Unavailable Unavailable HankNela MD Unavailable Unavailable HankNela MD Unavailable Unavailable HankNela MD Unavailable Unavailable HankNela MD Unavailable Unavailable HankNela MD Unavailable Unavailable HankNela MD Unavailable Unavailable HankNela MD Unavailable Unavailable HankNela MD Unavailable Unavailable HankNela MD Unavailable Unavailable HankNela MD Unavailable Unavailable HankNela MD Unavailable Unavailable HankNela MD Unavailable Unavailable HankNela MD Unavailable Unavailable HankNela MD Unavailable Unavailable HankNela MD Unavailable Unavailable HankNela MD Unavailable Unavailable HankNela MD Unavailable Unavailable HankNela MD Unavailable Unavailable HankNela MD Unavailable Unavailable HankNela MD Unavailable Unavailable HankNela MD Unavailable Unavailable HankNela MD Unavailable Unavailable HankNela MD Unavailable Unavailable HankNela MD Unavailable Unavailable Trickey, J Mitra PA Unavailable Unavailable Trickey, J Mitra PA Unavailable Unavailable Trickey, J Mitra PA Unavailable Unavailable Trickey, J Mitra PA Unavailable Unavailable Trickey, J Mitra PA Unavailable Unavailable Trickey, J Mitra PA Unavailable Unavailable Trickey, J Mitra PA Unavailable Unavailable Trickey, J Mitra PA Unavailable Unavailable Trickey, J Mitra PA Unavailable Unavailable Trickey, J Mitra PA Unavailable Unavailable Trickey, J Mitra PA Unavailable Unavailable Trickey, J Mitra PA Unavailable Unavailable Trickey, J Mitra PA Unavailable Unavailable Trickey, J Mitra PA Unavailable Unavailable Trickey, J Mitra PA Unavailable Unavailable Trickey, J Mitra PA Unavailable Unavailable Trickey, J Mitra PA Unavailable Unavailable Trickey, J Mitra PA Unavailable Unavailable Trickey, J Mitra PA Unavailable Unavailable Trickey, J Mitra PA Unavailable Unavailable Trickey, J Mitra PA Unavailable Unavailable Trickey, J Mitra PA Unavailable Unavailable Trickey, J Mitra PA Unavailable Unavailable Trickey, J Mitra PA Unavailable Unavailable Trickey, J Mitra PA Unavailable Unavailable Trickey, J Mitra PA Unavailable Unavailable Trickey, J Mitra PA Unavailable Unavailable Trickey, J Mitra PA Unavailable Unavailable Trickey, J Mitra PA Unavailable Unavailable Trickey, J Mitra PA Unavailable Unavailable Trickey, J Mitra PA Unavailable Unavailable Trickey, J Mitra PA Unavailable Unavailable Trickey, J Mitra PA Unavailable Unavailable Trickey, J Mitra PA Unavailable Unavailable Trickey, J Mitra PA Unavailable Unavailable Trickey, J Mitra PA Unavailable Unavailable Trickey, J Mitra PA Unavailable Unavailable Trickey, J Mitra PA Unavailable Unavailable Trickey, J Mitra PA Unavailable Unavailable Trickey, J Mitra PA Unavailable Unavailable Trickey, J Mitra PA Unavailable Unavailable Trickey, J Mitra PA Unavailable Unavailable Trickey, J Mitra PA Unavailable Unavailable Trickey, J Mitra PA Unavailable Unavailable Trickey, J Mitra PA Unavailable Unavailable Trickey, J Mitra PA Unavailable Unavailable Trickey, J Mitra PA Unavailable Unavailable Trickey, J Mitra PA Unavailable Unavailable Trickey, J Mitra PA Unavailable Unavailable Trickey, J Mitra PA Unavailable Unavailable Trickey, J Mitra PA Unavailable Unavailable Trickey, J Mitra PA Unavailable Unavailable VALENTIN, LEORA Unavailable Unavailable Emeli Perez MD Unavailable Unavail able Emeli Perez MD Unavailable Unavail able Emeli Perez MD Unavailable Unavail able Emeli Perez MD Unavailable Unavail able El-Dokla, Emeli Pickard MD Unavailable Unavail able El-[place]okla, Emeli Pickard MD Unavailable Unavail able [place]la, Emeli Pickard MD Unavailable Unavail able El-Dokla, Emeli Pickard MD Unavailable Unavail able El-Dokla, Emeli Pickard MD Unavailable Unavail able El-Dokla, Emeli Pickard MD Unavailable Unavail able El-Dokla, Emeli Pickard MD Unavailable Unavail able El-Dokla, Emeli Pickard MD Unavailable Unavail able El-Dokla, Emeli Pickard MD Unavailable Unavail able El-Dokla, Emeli Pickard MD Unavailable Unavail able El-Dokla, Emeli Pickard MD Unavailable Unavail able El-Dokla, Emeli Pickard MD Unavailable Unavail able El-Dokla, Emeli Pickard MD Unavailable Unavail able El-Dokla, Emeli Pickard MD Unavailable Unavail able El-Dokla, Emeli Pickard MD Unavailable Unavail able El-Dokla, Emeli Pickard MD Unavailable Unavail able El-Dokla, Emeli Pickard MD Unavailable Unavail able [place]la, Emeli Pickard MD Unavailable Unavail able El-Dokla, Emeli Pcikard MD Unavailable Unavail able [place]okla, Emeli Pickard MD Unavailable Unavail able El-Dokla, Emeli Pickard MD Unavailable Unavail able El-Dokla, Emeli Pickard MD Unavailable Unavail able El-Dokla, Emeli Pickard MD Unavailable Unavail able El-Dokla, Emeli Pickard MD Unavailable Unavail able El-Dokla, Emeli Pickard MD Unavailable Unavail able El-Dokla, Emeli Pickard MD Unavailable Unavail able El-Dokla, Emeli Pickard MD Unavailable Unavail able El-Dokla, Emeli Pickard MD Unavailable Unavail able El-Dokla, Emeli Pickard MD Unavailable Unavail able El-Dokla, Emeli Pickard MD Unavailable Unavail able [place]okla, Emeli Pickard MD Unavailable Unavail able El-Dokla, Emeli Pickard MD Unavailable Unavail able Charlie-Dokltri, Emeli Pickard MD Unavailable Unavail able El-Dokla, Emeli Pickard MD Unavailable Unavail able [place]okla, Emeli Pickard MD Unavailable Unavail able [place]la, Emeli Pickard MD Unavailable Unavail able Charlie-kla, Emeli Pickard MD Unavailable Unavail able El-Dokla, Emeli Pickard MD Unavailable Unavail able AILEEN, M ELIDIA PA Unavailable Unavailable AILEEN, M ELIDIA PA Unavailable Unavailable AILEEN, M ELIDIA PA Unavailable Unavailable AILEEN, M ELIDIA PA Unavailable Unavailable AILEEN, M ELIDIA PA Unavailable Unavailable AILEEN, M ELIDIA PA Unavailable Unavailable AILEEN, M ELIDIA PA Unavailable Unavailable AILEEN, M ELIDIA PA Unavailable Unavailable AILEEN, M ELDIIA PA Unavailable Unavailable AILEEN, M ELIDIA PA Unavailable Unavailable AILEEN, M ELIDIA PA Unavailable Unavailable AILEEN, M ELIDIA PA Unavailable Unavailable AILEEN, M ELIDIA PA Unavailable Unavailable AILEEN, M ELIDIA PA Unavailable Unavailable AILEEN, M ELIDIA PA Unavailable Unavailable AILEEN, M ELIDIA PA Unavailable Unavailable AILEEN, M ELIDIA PA Unavailable Unavailable AILEEN, M ELIDIA PA Unavailable Unavailable AILEEN, M ELIDIA PA Unavailable Unavailable IALEEN, M ELIDIA PA Unavailable Unavailable AILEEN, M ELIDIA PA Unavailable Unavailable AILEEN, M ELIDIA PA Unavailable Unavailable AILEEN, M ELIDIA PA Unavailable Unavailable AILEEN, M ELIDIA PA Unavailable Unavailable Goutremout, Lita Unavailable Roverto Szymanski MD Unavailable Unavailable Roverto Szymanski MD Unavailable Unavailable Roverto Szymanski MD Unavailable Unavailable Roverto Szymanski MD Unavailable Unavailable Roverto Szymanski MD Unavailable Unavailable Roverto Szymanski MD Unavailable Unavailable Roverto Szymanski MD Unavailable Unavailable Roverto Szymanski MD Unavailable Unavailable Roverto Szymanski MD Unavailable Unavailable Roverto Szymanski MD Unavailable Unavailable Roverto Szymanski MD Unavailable Unavailable Roverto Szymanski MD Unavailable Unavailable Roverto Szymanski MD Unavailable Unavailable Roverto Szymanski MD Unavailable Unavailable Roverto Szymanski MD Unavailable Unavailable DeBlasio, Roverto Martínez MD Unavailable Unavailable DeBlasio, Roverto Martínez MD Unavailable Unavailable DeBlasio, Roverto Martínez MD Unavailable Unavailable DeBlasio, Roverto Martínez MD Unavailable Unavailable DeBlasio, Roverto Martínez MD Unavailable Unavailable DeBlasio, Roverto Martínez MD Unavailable Unavailable DeBlasio, Roverto Martínez MD Unavailable Unavailable DeBlaskadeem, Roverto Martínez MD Unavailable Unavailable DeBlasio, Roverto Martínez MD Unavailable Unavailable DeBlasio, Roverto Martínez MD Unavailable Unavailable DeBlasio, Roverto Martínez MD Unavailable Unavailable DeBlasio, Roverto Martínez MD Unavailable Unavailable DeBlasio, Roverto Martínez MD Unavailable Unavailable DeBlasio, Roverto Martínez MD Unavailable Unavailable DeBlasio, Roverto Martínez MD Unavailable Unavailable DeBlasio, Roverto Martínez MD Unavailable Unavailable DeBlasio, Roverto Martínez MD Unavailable Unavailable DeBlasio, Roverto Martínez MD Unavailable Unavailable DeBlasio, Roverto Martínez MD Unavailable Unavailable DeBlasio, Roverto Martínez MD Unavailable Unavailable DeBlasio, Roverto Martínez MD Unavailable Unavailable DeBlasio, Roverto Martínez MD Unavailable Unavailable SYSTEM, NOT IN PROVIDER Unavailable Unavailable RAFAEL III, J JAIME Unavailable Unavailable RAFAEL III, J JAIME Unavailable Unavailable RAFAEL III, J JAIME Unavailable Unavailable RAFAEL III, J JAIME Unavailable Unavailable RAFAEL III, J JAIME Unavailable Unavailable RAFAEL III, J JAIME Unavailable Unavailable Wander, C Mg Unavailable Unavailable Waddell, C Mg Unavailable Unavailable Waddell, C Mg Unavailable Unavailable Waddell, C Mg Unavailable Unavailable Waddell, C Mg Unavailable Unavailable Waddell, C Mg Unavailable Unavailable Waddell, C Mg Unavailable Unavailable RING, K JASPREET PA Unavailable Unavailable RING, K JASPREET PA Unavailable Unavailable RING, K JASPREET PA Unavailable Unavailable RING, K JASPREET PA Unavailable Unavailable RING, K JASPREET PA Unavailable Unavailable RING, K JASPREET PA Unavailable Unavailable RING, K JASPREET PA Unavailable Unavailable RING, K JASPREET PA Unavailable Unavailable RING, K JASPREET PA Unavailable Unavailable RING, K JASPREET PA Unavailable Unavailable RING, K JASPREET PA Unavailable Unavailable RING, K JASPREET PA Unavailable Unavailable RING, K JASPREET PA Unavailable Unavailable RING, K JASPREET PA Unavailable Unavailable RING, K JASPREET PA Unavailable Unavailable RING, K JASPREET PA Unavailable Unavailable RING, K JASPREET PA Unavailable Unavailable RING, K JASPREET PA Unavailable Unavailable RING, K JASPREET PA Unavailable Unavailable RING, K JASPREET PA Unavailable Unavailable BLAINE, H NIKKO NEWSPAPER CARRIER Unavailable Unavailable BLAINE, H NIKKO NEWSPAPER CARRIER Unavailable Unavailable BLAINE, H NIKKO NEWSPAPER CARRIER Unavailable Unavailable BLAINE, H NIKKO NEWSPAPER CARRIER Unavailable Unavailable BLAINE, H NIKKO NEWSPAPER CARRIER Unavailable Unavailable BLAINE, H NIKKO NEWSPAPER CARRIER Unavailable Unavailable BLAINE, H NIKKO NEWSPAPER CARRIER Unavailable Unavailable Felton-Tartell, M Joey DO Unavailable Unavailabl e Felton-Tartell, M Joey DO Unavailable Unavailabl e Felton-Tartell, M Joey DO Unavailable Unavailabl e Felton-Tartell, M Joey DO Unavailable Unavailabl e Felton-Tartell, M Joey DO Unavailable Unavailabl e Felton-Tartell, M Joey DO Unavailable Unavailabl e Felton-Tartell, M Joey DO Unavailable Unavailabl e Felton-Tartell, M Joey DO Unavailable Unavailabl e Felton-Tartell, M Joey DO Unavailable Unavailabl e Felton-Tartell, M Joey DO Unavailable Unavailabl e Felton-Tartell, M Joey DO Unavailable Unavailabl e Felton-Tartell, M Joey DO Unavailable Unavailabl e Felton-Tartell, M Joey DO Unavailable Unavailabl e Felton-Tartell, M Joey DO Unavailable Unavailabl e Felton-Tartell, M Joey DO Unavailable Unavailabl e Felton-Tartell, M Joey DO Unavailable Unavailabl e Felton-Tartell, M Joey DO Unavailable Unavailabl e Felton-Tartell, M Joey DO Unavailable Unavailabl e Felton-Tartell, M Joey DO Unavailable Unavailabl e Felton-Tartell, M Joey DO Unavailable Unavailabl e Felton-Tartell, M Joey DO Unavailable Unavailabl e Felton-Tartell, M Joey DO Unavailable Unavailabl e Felton-Tartell, M Joey DO Unavailable Unavailabl e Felton-Tartell, M Joey DO Unavailable Unavailabl e Felton-Tartell, M Joey DO Unavailable Unavailabl e Felton-Tartell, M Joey DO Unavailable Unavailabl e Felton-Tartell, M Joey DO Unavailable Unavailabl e Felton-Tartell, M Joey DO Unavailable Unavailabl e Felton-Tartell, M Joey DO Unavailable Unavailabl e Felton-Tartell, M Joey DO Unavailable Unavailabl e Felton-Tartell, M Joey DO Unavailable Unavailabl e Felton-Tartell, M Joey DO Unavailable Unavailabl e Felton-Tartell, M Joey DO Unavailable Unavailabl e Felton-Tartell, M Joey DO Unavailable Unavailabl e Felton-Tartell, M Joey DO Unavailable Unavailabl e Felton-Tartell, M Joey DO Unavailable Unavailabl e Felton-Tartell, M Joey DO Unavailable Unavailabl e Felton-Tartell, M Joey DO Unavailable Unavailabl e Felton-Tartell, M Joey DO Unavailable Unavailabl e Felton-Tartell, M Joey DO Unavailable Unavailabl e Felton-Tartell, M Joey DO Unavailable Unavailabl e Felton-Tartell, M Joey DO Unavailable Unavailabl e Felton-Tartell, M Joey DO Unavailable Unavailabl e Felton-Tartell, M Joey DO Unavailable Unavailabl e Felton-Tartell, M Joey DO Unavailable Unavailabl e Felton-Tartell, M Joey DO Unavailable Unavailabl e Marga French Unavailable MaoViktor Isaac Unavailable Unavailable Mao, D Isaac Unavailable Unavailable Mao, D Isaac Unavailable Unavailable Mao, D Isaac Unavailable Unavailable Mao, D Isaac Unavailable Unavailable Mao, D Isaac Unavailable Unavailable Mao, D Isaac Unavailable Unavailable Mao, D Isaac Unavailable Unavailable Mao, D Isaac Unavailable Unavailable Mao, D Isaac Unavailable Unavailable Mao, D Isaac Unavailable Unavailable Mao, D Isaac Unavailable Unavailable Mao, D Isaac Unavailable Unavailable Mao, D Isaac Unavailable Unavailable Mao, D Isaac Unavailable Unavailable Mao, D Isaac Unavailable Unavailable DOMBROWSKA, K ALBA DO Unavailable Unavailable DOMBROWSKA, K ALBA DO Unavailable Unavailable DOMBROWSKA, K ALBA DO Unavailable Unavailable DOMBROWSKA, K ALBA DO Unavailable Unavailable DOMBROWSKA, K ALBA DO Unavailable Unavailable DOMBROWSKA, K ALBA DO Unavailable Unavailable DOMBROWSKA, K ALBA DO Unavailable Unavailable DOMBROWSKA, K ALBA DO Unavailable Unavailable DOMBROWSKA, K ALBA DO Unavailable Unavailable DOMBROWSKA, K ALBA DO Unavailable Unavailable DOMBROWSKA, K ALBA DO Unavailable Unavailable DOMBROWSKA, K ALBA DO Unavailable Unavailable DOMBROWSKA, K ALBA DO Unavailable Unavailable DOMBROWSKA, K ALBA DO Unavailable Unavailable DOMBROWSKA, K ALBA DO Unavailable Unavailable DOMBROWSKA, K ALBA DO Unavailable Unavailable Porter, Yaima Pia PA Unavailable Unavailable Porter, Yaima Pia PA Unavailable Unavailable Porter, Yaima Pia PA Unavailable Unavailable Porter, Yaima Pia PA Unavailable Unavailable Porter, Yaima Pia PA Unavailable Unavailable Porter, Yaima Pia PA Unavailable Unavailable Porter, Yaima Pia PA Unavailable Unavailable Porter, Yaima Pia PA Unavailable Unavailable Porter, Yaima Pia PA Unavailable Unavailable Portre, Yaima Pia PA Unavailable Unavailable KUROCHKIN, ALEXI Unavailable Unavailable Re-disclosure Warning The records that you are about to access may contain information from federally-assisted alcohol or drug abuse programs. If such information is present, then the following federally mandated warning applies: This information has been disclosed to you from records protected by federal confidentiality rules (42 CFR part 2). The federal rules prohibit you from making any further disclosure of this information unless further disclosure is expressly permitted by the written consent of the person to whom it pertains or as otherwise permitted by 42 CFR part 2. A general authorization for the release of medical or other information is NOT sufficient for this purpose. The Federal rules restrict any use of the information to criminally investigate or prosecute any alcohol or drug abuse patient.The records that you are about to access may contain highly sensitive health information, the redisclosure of which is protected by Article 27-F of the [facility] Public Health law. If you continue you may have access to information: Regarding HIV / AIDS; Provided by facilities licensed or operated by the [facility] Office of Mental Health; or Provided by the [facility] Office for People With Developmental Disabilities. If such information is present, then the following [facility] mandated warning applies: This information has been disclosed to you from confidential records which are protected by state law. State law prohibits you from making any further disclosure of this information without the specific written consent of the person to whom it pertains, or as otherwise permitted by law. Any unauthorized further disclosure in violation of state law may result in a fine or nursing home sentence or both. A general authorization for the release of medical or other information is NOT sufficient authorization for further disc losure. Allergies and Adverse Reactions Type Description Substance Reaction Status Data Source(s ) Propensity to adverse reactions to substance Wellbutrin (bup ropion hcl) Bupropion Hydrochloride 75 MG Oral Tablet [Wellbutrin] difficulty breathing: throat spasms Active [facility] ([facility]) Propensity to adverse reactions to substance Depakote (dival proex) Divalproex Sodium 125 MG Delayed Release Oral Tablet [Depakote] Active [facility] ([facility]) Propensity to adverse reactions to substance benztropine benztropine mesylate 1 MG/ML Injectable Solution Active [facility] ([facility]) Propensity to adverse reactions to substance Cyclobenzaprine Group quackgrass pollen extract 19979 UNT/ML Active [facility] ([facility]) Propensity to adverse reactions to substance Abilify (aripip razole) aripiprazole 10 MG Oral Tablet [Abilify] Active [facility] ( [facility]) Propensity to adverse reactions to substance prazosin Prazosin 1 MG Oral Capsule Fatigue Active [facility] ([facility]) Propensity to adverse reactions to substance amitriptyline Amitriptyline Hydrochloride 75 MG Oral Tablet Active [facility] ([facility]) Propensity to adverse reactions to substance mirtazapine Mirtazapine 7.5 MG Oral Tablet Active [facility] ([facility]) DRUG INGREDI TIZANIDINE TIZANIDINE Itching [facility] DRUG INGREDI BUPROPION BUPROPION [facility] DRUG INGREDI TRAZODONE TRAZODONE Swelling [facility] DRUG INGREDI METAXALONE METAXALONE Itching [facility] Drug allergy TraZODone HCl Trazodone swelling Active eCW1 ([facility]) Drug allergy Depakote Valproate does not metabolize properly Acti ve eCW1 ([facility]) Drug allergy Cogentin Benztropine blurry eyes Active eCW1 ([facility]) Drug allergy Amitriptyline HCl Amitriptyline edema Active eC W1 ([facility]) Drug allergy Gabapentin gabapentin weakness and confusion Active eCW1 ([facility]) Drug allergy Zanaflex Drug allergy itching Active eCW1 ([facility]) Drug allergy Bactrim DS sulfamethoxazole / trimethoprim Diarrhea Ac tive eCW1 ([facility]) Drug allergy Lyrica pregabalin fluid retentiom Active eCW1 ( [facility]) Drug allergy Skelaxin metaxalone itching Active eCW1 ([facility]) Clindamycin Clindamycin HCl Clindamycin heart burn Active eCW1 ( [facility]) Wellbutrin Wellbutrin Wellbutrin throat spasms Active eCW1 ([facility]) Flexeril Flexeril Flexeril irritability Active eCW1 ([facility]) Wellbutrin Wellbutrin Wellbutrin throat spasms Active eCW1 ([facility]) Flexeril Flexeril Flexeril irritability Active eCW1 ([facility]) Wellbutrin Wellbutrin Wellbutrin throat spasms Active eCW1 ([facility]) Flexeril Flexeril Flexeril irritability Active eCW1 ([facility]) Wellbutrin Wellbutrin Wellbutrin throat spasms Active eCW1 ([facility]) Flexeril Flexeril Flexeril irritability Active eCW1 ([facility]) Wellbutrin Wellbutrin Wellbutrin throat spasms Active eCW1 ([facility]) Flexeril Flexeril Flexeril irritability Active eCW1 ([facility]) Wellbutrin Wellbutrin Wellbutrin throat spasms Active eCW1 ([facility]) Flexeril Flexeril Flexeril irritability Active eCW1 ([facility]) Wellbutrin Wellbutrin Wellbutrin throat spasms Active eCW1 ([facility]) Flexeril Flexeril Flexeril irritability Active eCW1 ([facility]) Wellbutrin Wellbutrin Wellbutrin throat spasms Active eCW1 ([facility]) Flexeril Flexeril Flexeril irritability Active eCW1 ([facility]) DRUG INGREDI NICKEL NICKEL [facility] Chemical ADHESIVE TAPE ADHESIVE TAPE [facility] Drug Class NO KNOWN ALLERGIES NO KNOWN ALLERGIES [facility] Drug allergy MINOCYCLINE HCL MINOCYCLINE HCL [facility] DRUG INGREDI PREGABALIN PREGABALIN Swelling [facility] DRUG INGREDI GABAPENTIN GABAPENTIN Other [facility] DRUG INGREDI CYCLOBENZAPRINE CYCLOBENZAPRINE Other [facility] DRUG INGREDI VALPROIC ACID VALPROIC ACID [facility] INGREDI BENZTROPINE BENZTROPINE Other [facility] DRUG INGREDI AMITRIPTYLINE AMITRIPTYLINE Swelling [facility] Wellbutrin Wellbutrin Wellbutrin throat spasms Active eCW1 ([facility]) Flexeril Flexeril Flexeril irritability Active eCW1 ([facility]) Wellbutrin Wellbutrin Wellbutrin throat spasms Active eCW1 ([facility]) Flexeril Flexeril Flexeril irritability Active eCW1 ([facility]) Wellbutrin Wellbutrin Wellbutrin throat spasms Active eCW1 ([facility]) Flexeril Flexeril Flexeril irritability Active eCW1 ([facility]) TraZODone HCl TraZODone HCl Trazodone Hydrochloride 50 MG Oral Tabl et swelling Active eCW1 ([facility]) Wellbutrin Wellbutrin Wellbutrin throat spasms Active eCW1 ([facility]) Flexeril Flexeril Flexeril irritability Active eCW1 ([facility]) Family History Family Member Name Family Member Gender Family Member Status Date o f Status Description Data Source(s) Unknown Male Condition Family Member Diabetes [facility] Unknown Male Condition Family Member Mental illne [facility] Unknown Male Condition Family Member Asthma [facility] Unknown Unknown Problem [facility] ([facility]) Unknown Unknown Problem [facility] ([facility]) Unknown Female Problem MEDENT ([facility]) Encounters Encounter Providers Location Date Indications Data Source(s ) Outpatient Attender: LEORA VALENTIN 07/11/2020 12:00:00 AM E [facility] Unknown [address] [facility] [facility] [address] 03/21/2020 12:00:00 AM EST eCW1 ([facility]) Unknown [address] [facility] [address] 03/19/2020 12:00:00 AM EST eCW1 ([facility]) Unknown [address] [facility] [address] 03/14/2020 12:00:00 AM EST eCW1 ([facility]) Outpatient Attender: Mitra SCHROEDER [facility] 03/12/2020 08:00:00 AM EST [facility] ([facility]) TeleMedicine Phone E/M by Phys 5-[address] [place] [phone] 03/12/2020 12:00:00 AM EST eCW1 ([facility]) Unknown [address] [facility] [address] 03/12/2020 12:00:00 AM EST eCW1 ([facility]) TeleMedicine Phone E/M by Phys 11-[address] [place] [phone] 03/02/2020 12:00:00 AM EST eCW1 ([facility]) Outpatient Attender: NIKKO LANDEROS NP [id number] 01/30/2020 0 2:41:46 PM [facility] Outpatient Attender: NIKKO BALBUENA NP [facility] carol 01/17/2020 10:00:00 AM EDT - 01/17/2020 10:00:00 AM EDT [facility] ([facility]) Attender: NIKKO BALBUENA NP 01/17/2020 12:00:00 AM EDT [facility] ([facility]) [place] [address] [facility] [address] 01/12/2020 12:00:00 AM EDT eCW1 ([facility]) Outpatient Attender: LEORA VALENTIN 01/04/2020 12:00:00 AM [facility] Unknown [address] [facility] [address] 01/02/2020 12:00:00 AM EDT eCW1 ([facility]) Extended Individual Psychotherapy - 45 min Attender: Mesha Molina [facility] 12/29/2019 10:30:00 AM EDT - 12/29/2019 10:30:00 AM EDT [facility] ([facility]) Attender: Lita Molina 12/29/2019 12:00:0 0 AM EDT [facility] ([facility]) Outpatient Attender: LEORA VALENTINReferrer: Mauricio Szymanski MD [id number] 12/26/2019 12:00:[address] [facility] [address] [facility] [address] 12/26/2019 12:00:00 AM EDT eCW1 ([facility]) [place] [address] [facility] [address] 12/22/2019 12:00:00 AM EDT eCW1 ([facility]) Outpatient Attender: NIKKO BALBUENA NP [facility] Christophe medina 12/20/2019 09:30:00 AM EDT - 12/20/2019 09:30:00 AM EDT [facility] ([facility]) Attender: NIKKO BALBUENA NP 12/20/2019 12:00:00 AM EDT [facility] ([facility]) Outpatient Attender: Mitra SCHROEDER [facility] 12/12/2019 02:45:00 PM EDT MED[facility] ([facility]) Outpatient Attender: LEORA HE 12/12/2019 10:50:28 AM EDT [facility] Extended Individual Psychotherapy - 45 min Attender: Mesha modesto [facility] 11/25/2019 09:00:00 AM EDT - 11/25/2019 09:00:00 AM EDT [facility] ([facility] Attender: Lita Tarcy 11/25/2019 12:00:0 0 AM EDT [facility] ([facility]) [facility] [address] [place] [phone] 11/25/2019 12:00:00 AM EDT eCW1 ([facility]) Outpatient Attender: LEORA VALENTINReferrer: Mauricio AYERS 11/23/2019 12:00:00 AM EDT Malignant neoplasm of lower-inner quadra nt of right female [facility] Malignant neoplasm of lower-inner quadra nt of right female breast Outpatient Referrer: Mauricio Szymanski MD 11/22/2019 12:00:0 0 AM EDT [facility] ct sim Outpatient Attender: LEORA VALENTINReferrer: Mauricio Szymanski MD 11/16/2019 12:00:[address] [facility] ct sim Outpatient Attender: LEORA VALENTINReferrer: Mauricio AYERS 11/09/2019 12:00:00 AM EDT - 11/09/2019 01:24:31 PM EDT Malignant neoplasm of lower-inner quadrant of right female breast [facility] Malignant neoplasm of lower-inner quadra nt of right female breast Outpatient Attender: LEORA VALENTINReferrer: Mauricio Szymanski MD 11/02/2019 12:00:00 AM EDT [facility] ct sim Outpatient Referrer: Mauricio Szymanski MD 10/31/2019 12:00:0 0 AM EDT [facility] ct sim Outpatient Attender: LEORA VALENTINReferrer: Mauricio HE 10/21/2019 12:00:00 AM EDT - 10/21/2019 01:18:39 PM EDT Malignant neoplasm of lower-inner quadrant of right female breast [facility] Malignant neoplasm of lower-inner quadra nt of right female breast Outpatient Attender: LEORA VALENTINReferrer: Mauricio Szymanski MD [id number] 10/21/2019 12:00:00 AM EDT - 10/21/2019 01:18:28 PM EDT Malignant neoplasm of lower-inner quadrant of right female breast [facility] Malignant neoplasm of lower-inner quadra nt of right female breast Outpatient Referrer: Mauricio Szymanski MD 10/20/2019 12:00:0 0 AM EDT [facility] Outpatient [address] [facility] [address] 09/22/2019 12:00:00 AM EDT [facility] ([facility]) [id number]"Psychotherapy Attender: Lita Molina [facility] 09/20/2019 10:00:00 AM EDT - 09/20/2019 10:00:00 AM EDT [facility] ([facility]) Attender: Lita Molina 09/20/2019 12:00:0 0 AM EDT [facility] ([facility]) Outpatient Attender: ALEXI ESQUEDA [id number] 09/12 12:00:00 AM EDT - 09/13/2019 02:26:50 PM EDT Unspecified papilledema [facility] Unspecified papilledema Outpatient 09/12/2019 12:00:00 AM EDT [facility] Outpatient Attender: Shayy adam MDReferrer: Shayy Perez MD 09/06/2019 12:00:00 AM EDT [facility] Outpatient Attender: Shayy adam MDReferrer: Shayy Perez MD 09/06/2019 12:00:00 AM EDT [facility] Unknown [address] [facility] [address] 09/06/2019 12:00:00 AM EDT eCW1 ([facility]) Inpatient Attender: Shayy adam MDAttender: JAIME HLAL IIIAdmitter: Shayy Perez MDReferrer: PROVIDER SYSTEM [id number] 09/05/2019 12:00:00 AM EDT - 09/07/2019 12:00:00 AM EDT Benign intracranial hypertension [facility] Benign intracranial hypertension Patient discharged. [facility] [address] [facility] [address] 09/05/2019 12:00:00 AM EDT eCW1 ([facility]) [id number]"Psychotherapy Attender: Lita Molina [facility] 09/02/2019 09:00:00 AM EDT - 09/02/2019 09:00:00 AM EDT [facility] ([facility]) Attender: Lita Molina 09/02/2019 12:00:0 0 AM EDT [facility] ([facility]) Outpatient Attender: Mitra Land [facility] 09/01/2019 09:00:00 AM EDT [facility] ([facility], ) Outpatient Attender: NIKKO BALBUENA NP [facility] l 08/25/2019 04:00:00 AM EDT - 08/25/2019 04:00:00 AM EDT [facility] ([facility]) Attender: NIKKO BALBUENA NP 08/25/2019 12:00:00 AM EDT [facility] ([facility]) TEMPMHCTelemed 30" Psychotherapy Attender: Lita clements [facility] 08/18/2019 09:30:00 AM EDT - 08/18/2019 09:30:00 AM EDT [facility] ([facility]) Attender: Lita Molina 08/18/2019 12:00:0 0 AM EDT [facility] ([facility]) TEMPMHCTelemed 30" Psychotherapy Attender: Lita clements [facility] 08/04/2019 08:45:00 AM EDT - 08/04/2019 08:45:00 AM EDT [facility] ([facility]) Attender: Lita Molina 08/04/2019 12:00:0 0 AM EDT [facility] ([facility]) [facility] [address] [facility] [address] 08/03/2019 12:00:00 AM EDT [facility]CW1 ([facility]) Outpatient Attender: Isaac Cavanaugh 08/02/2019 12:00:00 AM EDT Health system [address] [facility] [address] 08/02/2019 12:00:00 AM EDT eCW1 ([facility]) Outpatient Referrer: ELIDIA SCHROEDER 07/29/2019 05:50:00 AM EDT [facility] [address] [facility] [address] 07/29/2019 12:00:00 AM EDT eCW1 ([facility]) Outpatient Attender: NIKKO BALBUENA NP [facility] Christophe medina 07/28/2019 11:00:00 AM EDT - 07/28/2019 11:00:00 AM EDT [facility] ([facility]) [facility] [address] [facility] [address] 07/28/2019 12:00:00 AM EDT eCW1 ([facility]) Attender: NIKKO BALBUENA NP 07/28/2019 12:00:00 AM EDT [facility] ([facility]) [id number]"Psychotherapy Attender: Lita Molina [facility] 07/06/2019 10:45:00 AM EDT - 07/06/2019 10:45:00 AM EDT [facility] ([facility]) Attender: Lita Molina 07/06/2019 12:00:0 0 AM EDT [facility] ([facility]) Outpatient Attender: Pia niño 07/01/2019 10:00:00 AM EDT MED[facility] ([facility] Ric [address] [facility] [place] [address] 07/01/2019 12:00:00 AM EDT eCW1 ([facility]) [facility] [address] [place] [address] 06/24/2019 12:00:00 AM EDT eCW1 ([facility]) Outpatient Attender: NIKKO BALBUENA NP [facility] Christophe medina 06/23/2019 02:30:00 AM EDT - 06/23/2019 02:30:00 AM EDT [facility] ([facility]) Attender: NIKKO BALBUENA NP 06/23/2019 12:00:00 AM EDT [facility] ([facility]) [facility] [address] [place] [phone] 06/21/2019 12:00:00 AM EDT eCW1 ([facility]) [facility] [address] [place] [phone] 06/20/2019 12:00:00 AM EDT eCW1 ([facility]) TEMPMTelemed 30" Psychotherapy Att[facility]: [facility] 06/17/2019 09:45:00 AM EDT - 06/17/2019 09:45:00 AM EDT [facility] ([facility]) [facility] Ric [address] [facility] [place] [address] 06/17/2019 12:00:00 AM EDT eCW1 ([facility]) Attender: Lita Molina 06/17/2019 12:00:0 0 AM EDT [facility] ([facility]) [facility] [address] [place] [address] 06/13/2019 12:00:00 AM EDT eCW1 ([facility]) [facility] [address] [place] [address] 06/09/2019 12:00:00 AM EDT eCW1 ([facility]) [facility] [address] [place] [phone] 06/06/2019 12:00:00 AM EDT eCW1 ([facility]) [facility] [address] [place] [address] 06/03/2019 12:00:00 AM EDT eCW1 ([facility]) Brief Individual Psychotherapy - 30 min Attender: Lita bond [facility] 06/02/2019 08:00:00 AM EDT - 06/02/2019 08:00:00 AM EDT [facility] ([facility]) [facility] [address] [place] [phone] 06/02/2019 12:00:00 AM EDT eCW1 ([facility]) Attender: Lita Molina 06/02/2019 12:00:0 0 AM EDT [facility] ([facility]) [facility] Larios [address] [place] [phone] 06/01/2019 12:00:00 AM EDT eCW1 ([facility]) Outpatient Attender: Mitra SCHROEDER [facility] 05/30/2019 02:30:00 PM EDT [facility] ([facility]) [facility] [address] [place] [phone] 05/27/2019 12:00:00 AM EST eCW1 ([facility]) Outpatient Attender: Mg Viramontes [facility] 0 05/25/2019 09:30:00 AM EST - 05/25/2019 09:30:00 AM EST [facility] ([facility] Attender: Mg Viramontes 05/25/2019 12:00:00 AM EST [facility] ([facility]) Outpatient Attender: Sierra Minor MD 05/25/2019 12:00:00 AM [facility] Outpatient Referrer: ELIDIA SCHROEDER 05/23/2019 03:37:00 PM EST [facility] [address] [place] [address] 05/23/2019 12:00:00 AM EST eCW1 ([facility]) [facility] [address] [place] [phone] 05/23/2019 12:00:00 AM EST eCW1 ([facility]) Outpatient Attender: Sierra Minor MD 05/19/2019 12:00:[address] [facility] Breast Care [address] [place] [phone] 05/18/2019 12:00:00 AM EST eCW1 ([facility]) [facility] [address] [place] [phone] 05/18/2019 12:00:00 AM EST eCW1 ([facility]) Outpatient Attender: Sierra Minor MD [id number] 05/17/2019 01:12:57 PM [facility] Outpatient Attender: Sierra Veronicaitter: Sierra Minor MD 6 [id number] 05/17/2019 12:00:00 AM EST - 05/17/2019 12:00:00 AM EST Malignant neoplasm of right breast in female, estrogen receptor positive, unspecified site of breast [C50.911, Z17.0] [facility] Malignant neoplasm of right breast in fe male, estrogen receptor positive, unspecified site of breast [C50.911, Z17.0] Patient discharged. Outpatient Attender: Sierra Minor MDAdmit ter: Sierra Melvinerrer: Sierra Minor MD 05/17/2019 12:00:00 AM EST Malignant lesley plasm of unspecified site of right female breast [facility] Malignant neoplasm of unspecified site o f right female breast Outpatient Attender: Sierra Minor MD 05/17/2019 12:00:00 AM [facility] Outpatient Attender: Sierra Melvinerrer: Sierra Minor MD 05/17/2019 12:00:00 AM [facility] Outpatient Attender: Sierra DANIELLEeferrer: Sierra Minor MD 05/17/2019 12:00:00 AM [facility] Outpatient Referrer: ELIDIA SCHROEDER 05/16/2019 03:28:00 PM EST [facility] Larios [address] [facility] [address] 05/13/2019 12:00:00 AM EST eCW1 ([facility]) Outpatient Admitter: Sierra Minor MDReferrer: Sierra Minor MD 05/12/2019 12:00:00 AM EST Malignant neoplasm of unspecified site of unspecified female breast [facility] Malignant neoplasm of unspecified site o f unspecified female breast [facility] [address] [place] [address] 05/11/2019 12:00:00 AM EST eCW1 ([facility]) Outpatient Attender: Sierra Melvinerrer: JAYME SIMONS DO [id number] 05/09/2019 12:00:00 AM EST - 05/09/2019 11:34:36 AM ES T Family history of malignant neoplasm of other genital organs [facility] Family history of malignant neoplasm of other genital organs Extended Individual Psychotherapy - 45 min Attender: Jerry [facility] 05/06/2019 10:00:00 AM EST - 05/06/2019 10:00:00 AM EST [facility] ([facility]) Attender: Marga French 05/06/2019 12:00:00 A M EST [facility] ([facility]) Outpatient Attender: Trista Encarnacion MD 05/05/2019 12:00:0 0 AM EST [facility] Breast Care [address] [place] [address] 05/04/2019 12:00:00 AM EST eCW1 ([facility]) [facility] [address] [place] [address] 04/28/2019 12:00:00 AM EST eCW1 ([facility]) Outpatient Attender: Mg Viramontes [facility] 0 04/21/2019 11:30:00 AM EST - 04/21/2019 11:30:00 AM EST [facility] ([facility] Attender: Mg Viramontes 04/21/2019 12:00:00 AM EST [facility] ([facility]) Extended Individual Psychotherapy - 45 min Attender: Jerry Orozcoews [facility] 04/20/2019 12:00:00 PM EST - 04/20/2019 12:00:00 PM EST [facility] ([facility]) [facility] [address] [place] [phone] 04/20/2019 12:00:00 AM EST eCW1 ([facility]) Attender: Marga Manolo 04/20/2019 12:00:00 A M EST [facility] ([facility]) Outpatient Referrer: ELIDIA SCHROEDER 04/19/2019 10:53:00 AM EST [facility] [address] [place] [phone] 04/19/2019 12:00:00 AM EST eCW1 ([facility]) [facility] Larios [address] [place] [phone] 04/14/2019 12:00:00 AM EST eCW1 ([facility]) Outpatient Referrer: ELIDIA SCHROEDER 04/13/2019 01:09:00 PM EST [facility] Outpatient Admitter: Joey Leoerrer: Joey Scott DO 04/12/2019 12:00:00 AM EST Malignant lesley plasm of unspecified site of unspecified female [facility] Malignant neoplasm of unspecified site o f unspecified female breast [facility] [address] [place] [phone] 04/12/2019 12:00:00 AM EST eCW1 ([facility]) [facility] [address] [place] [phone] 04/11/2019 12:00:00 AM EST eCW1 ([facility]) [address] [address] 04/06/2019 12:00:00 AM EST eCW1 ([facility]) Outpatient Attender: Pia niño 04/03/2019 09:15:00 AM EST [facility] ([facility]) Extended Individual Psychotherapy - 45 min Attender: Jerry French [facility] 04/01/2019 12:45:00 PM EST - 04/01/2019 12:45:00 PM EST [facility] ([facility] Referrer: ELIDIA SCHROEDER 04/01/2019 11:15:00 AM EST [facility] Radiology Imaging Attender: Marga French 04/01/2019 12:00:00 A M EST [facility] ([facility]) [facility] 03/31/2019 11:00:00 AM EST - 03/31/2019 11:00:00 AM EST [facility] ([facility] [address] [facility]) Attender: gM Viramontes 03/31/2019 12:00:00 AM EST [facility] ([facility]) [address] [place] [address] 03/29/2019 12:00:00 AM EST eCW1 ([facility]) [address] [place] [address] 03/29/2019 12:00:00 AM EST eCW1 ([facility]) [address] [place] [address] 03/27/2019 12:00:00 AM EST eCW1 ([facility]) Extended Individual Psychotherapy - 45 min Attender: Jerry French [facility] 03/22/2019 09:45:00 AM EST - 03/22/2019 09:45:00 AM EST [facility] ([facility]) Attender: Marga French 03/22/2019 12:00:00 A M EST [facility] ([facility]) [facility] [address] [facility] [address] [place] [address] 03/17/2019 12:00:00 AM EST eCW1 ([facility]) Outpatient Attender: Mitra SCHROEDER Main office - [facility] 03/02/2019 09:30:00 AM EST [facility] ([facility], [facility]) Outpatient Attender: JASPREET Guadalupe 02/26/2019 08:15:00 AM EST [facility] ([facility]) Extended Individual Psychotherapy - 45 min Attender: Jerry French [facility] 02/22/2019 02:00:00 AM EST - 02/22/2019 02:00:00 AM EST [facility] ([facility]) Attender: Marga French 02/22/2019 12:00:00 A M EST [facility] ([facility]) [facility] [address] [place] [address] 02/20/2019 12:00:00 AM EST eCW1 ([facility]) [facility] [address] [place] [address] 02/14/2019 12:00:00 AM EST eCW1 ([facility]) Functional Status Immunizations Vaccine Date Status Description Data Source(s) influenza, recombinant, quadrIvalent,injectable, prese rvative free 02/14/2019 11:28:00 AM EST completed eCW1 ([facility]) influenza, recombinant, quadrIvalent,injectable, prese rvative free 02/14/2019 11:28:00 AM EST completed eCW1 ([facility]) influenza, recombinant, quadrIvalent,injectable, prese rvative free 02/14/2019 11:28:00 AM EST completed eCW1 ([facility]) influenza, recombinant, quadrIvalent,injectable, prese rvative free 02/14/2019 11:28:00 AM EST completed eCW1 ([facility]) influenza, recombinant, quadrIvalent,injectable, prese rvative free 02/14/2019 11:28:00 AM EST completed eCW1 ([facility]) influenza, recombinant, quadrIvalent,injectable, prese rvative free 02/14/2019 11:28:00 AM EST completed eCW1 ([facility]) influenza, recombinant, quadrIvalent,injectable, prese rvative free 02/14/2019 11:28:00 AM EST completed eCW1 ([facility]) influenza, recombinant, quadrIvalent,injectable, prese rvative free 02/14/2019 11:28:00 AM EST completed eCW1 ([facility]) influenza, recombinant, quadrIvalent,injectable, prese rvative free 02/14/2019 11:28:00 AM EST completed eCW1 ([facility]) influenza, recombinant, quadrIvalent,injectable, prese rvative free 02/14/2019 11:28:00 AM EST completed eCW1 ([facility]) influenza, recombinant, quadrIvalent,injectable, prese rvative free 02/14/2019 11:28:00 AM EST completed eCW1 ([facility]) influenza, recombinant, quadrIvalent,injectable, prese rvative free 02/14/2019 11:28:00 AM EST completed eCW1 ([facility]) influenza, recombinant, quadrIvalent,injectable, prese rvative free 02/14/2019 11:28:00 AM EST completed eCW1 ([facility]) influenza, recombinant, quadrIvalent,injectable, prese rvative free 02/14/2019 11:28:00 AM EST completed eCW1 ([facility]) Medications Medication Brand Name Start Date Product Form Dose Route Admi nistrative Instructions Pharmacy Instructions Status Indications Reaction Description Data Source(s) Jobst Relief 30-40mmHg Medium - Jobst Relief 30-40mmHg [facility] 03/19/2020 12:00:00 AM EST active Jobst Re lief 30-40mmHg Medium - eCW1 ([facility]) Jobst Relief 30-40mmHg Medium - Jobst Relief 30-40mmHg [facility] 03/19/2020 12:00:00 AM EST active Jobst Re lief 30-40mmHg Medium - eCW1 ([facility]) Jobst Relief 30-40mmHg Medium - Jobst Relief 30-40mmHg [facility] 03/19/2020 12:00:00 AM EST active Jobst Re lief 30-40mmHg Medium - eCW1 ([facility]) Jobst Relief 30-40mmHg Medium - Jobst Relief 30-40mmHg Mediu m - 03/19/2020 12:00:00 AM EST active Jobst Re lief 30-40mmHg Medium - eCW1 ([facility]) Naltrexone hydrochloride 50 MG Oral Tablet naltrexone 12/26/2019 12:00:00 AM EDT 50 mg by mouth completed [id number] naltrexone by juliana th [id number] 12/26/2019 once a day 50 mg tablet as directed 11069 [id number] Nikko Balbuena [id number] Nurse Practitioner [facility] ([facility]) Hydroxyzine Hydrochloride 50 MG Oral Tablet hydroxyzine HCl 12/26/2019 12:00:00 AM EDT 50 mg by mouth completed 280265 hydroxyzine HCl by mouth [id number] 12/26/2019 01/25/2020 four times a day 30 50 mg tablet [place] ded 10665 [id number] [id number] Nikko Balbuena [id number] Nurse Practitioner [facility] ([facility]) Clozapine 100 MG Oral Tablet [Clozaril] Clozaril 12/26/2019 12: 00:00 AM EDT 100 mg by mouth completed 455460 Clozaril by mouth [id number] 8 12/26/2019 01/25/2020 at bedtime 30 100 mg tablet as directed 66676 [id number] [phone] [id number] Nikko Balbuena [id number] Nurse Practitioner [facility] ([facility]) 12 HR Acetazolamide 500 MG Extended Release Oral Capsule Flavio tazolamide ER 12/16/2019 12:00:00 AM EDT ORAL active [facility] ([facility]) 24 HR venlafaxine 75 MG Extended Release Oral Tablet venlafa xine 11/22/2019 12:00:00 AM EDT 75 mg by mouth completed [id number] ve nlafaxine by mouth [id number] 11/22/2019 03/25/2020 every morning 30 75 mg tablet exte nded release 24hr [id number] [id number] Nikko Balbuena [id number] Nurse Practi tioner [facility] ([facility]) Fluoxetine 20 MG Oral Capsule [Prozac] Prozac 11/22/2019 12:0 0:00 AM EDT 20 mg by mouth completed 657486 Prozac by mouth [id number] 0 11/22/2019 01/21/2020 once a day 30 20 mg capsule 64769 [id number] Albertina Balbuena [id number] Nurse Practitioner [facility] ([facility]) Fluoxetine 20 MG Oral Capsule [Prozac] Prozac 11/22/2019 12:0 0:00 AM EDT 20 mg by mouth completed 752316 Prozac by mouth [id number] 0 11/22/2019 02/24/2020 once a day 30 20 mg capsule 79095 [id number] Albertina Balbuena [id number] Nurse Practitioner [facility] ([facility]) 24 HR venlafaxine 75 MG Extended Release Oral Tablet venlafa xine 11/22/2019 12:00:00 AM EDT 75 mg by mouth completed 987282 ve nlafaxine by mouth [id number] 11/22/2019 02/20/2020 every morning 30 75 mg tablet exte nded release 24hr 18099 [id number] Nikko Balbuena [id number] Nurse Practi tionetanya [facility] ([facility]) zaleplon 10 MG Oral Capsule zaleplon 11/22/2019 12:00:00 AM EDT 10 mg by mouth completed [id number] zaleplon by mouth [id number] 11/22/19 20 12/22/2019 at bedtime 30 10 mg capsule as directed 22383 [id number] Nikko lambert [id number] Nurse Practitioner [facility] ([facility]) Fluocinonide 0.5 MG/ML Topical Cream Fluocinonide 0.05 % External Cream (LIDEX) Fluocinonide 0.05 % External Cream (LIDEX) 11/02/2019 12:00:00 AM EDT active Apply two to three times daily t o affected [facility] Acetazolamide 250 MG Oral Tablet AcetaZOLAMIDE 250 MG AcetaZ NORMA 250 MG 09/22/2019 12:00:00 AM EDT 2.0 {tablets} active AcetaZOLAMIDE 250 MG eCW1 ([facility]) Acetazolamide 250 MG Oral Tablet AcetaZOLAMIDE 250 MG AcetaZ NORMA 250 MG 09/22/2019 12:00:00 AM EDT 2.0 {tablets} active AcetaZOLAMIDE 250 MG eCW1 ([facility]) Acetazolamide 250 MG Oral Tablet AcetaZOLAMIDE 250 MG AcetaZ NORMA 250 MG 09/22/2019 12:00:00 AM EDT 2.0 {tablets} active AcetaZOLAMIDE 250 MG eCW1 ([facility]) Acetazolamide 250 MG Oral Tablet AcetaZOLAMIDE 250 MG AcetaZ NORMA 250 MG 09/22/2019 12:00:00 AM EDT 2.0 {tablets} active AcetaZOLAMIDE 250 MG eCW1 ([facility]) Acetazolamide 250 MG Oral Tablet AcetaZOLAMIDE 250 MG AcetaZ NORMA 250 MG 09/22/2019 12:00:00 AM EDT 2.0 {tablets} active AcetaZOLAMIDE 250 MG eCW1 ([facility]) Acetazolamide 250 MG Oral Tablet AcetaZOLAMIDE 250 MG AcetaZ NORMA 250 MG 09/22/2019 12:00:00 AM EDT 2.0 {tablets} active AcetaZOLAMIDE 250 MG eCW1 ([facility]) Acetazolamide 250 MG Oral Tablet AcetaZOLAMIDE 250 MG AcetaZ NORMA 250 MG 09/22/2019 12:00:00 AM EDT 2.0 {tablets} active AcetaZOLAMIDE 250 MG eCW1 ([facility]) Acetazolamide 250 MG Oral Tablet AcetaZOLAMIDE 250 MG AcetaZ NORMA 250 MG 09/22/2019 12:00:00 AM EDT 2.0 {tablets} active AcetaZOLAMIDE 250 MG eCW1 ([facility]) Acetazolamide 250 MG Oral Tablet AcetaZOLAMIDE 250 MG AcetaZ NORMA 250 MG 09/22/2019 12:00:00 AM EDT 2.0 {tablets} active AcetaZOLAMIDE 250 MG eCW1 ([facility]) Acetazolamide 250 MG Oral Tablet AcetaZOLAMIDE 250 MG AcetaZ NORMA 250 MG 09/22/2019 12:00:00 AM EDT 2.0 {tablets} active AcetaZOLAMIDE 250 MG eCW1 ([facility]) Acetazolamide 250 MG Oral Tablet AcetaZOLAMIDE 250 MG AcetaZ NORMA 250 MG 09/22/2019 12:00:00 AM EDT 2.0 {tablets} active AcetaZOLAMIDE 250 MG eCW1 ([facility]) Acetazolamide 250 MG Oral Tablet AcetaZOLAMIDE 250 MG AcetaZ NORMA 250 MG 09/22/2019 12:00:00 AM EDT 2.0 {tablets} active AcetaZOLAMIDE 250 MG eCW1 ([facility]) Proparacaine hydrochloride 5 MG/ML Ophth almic Solution proparacaine (ALCAINE) 0.5 % ophthalmic solution 1 drop proparacaine (ALCAINE) 0.5 % ophthalmic solution 1 drop 09/13/2019 12:15:00 PM EDT 1 [drp] Both Eyes completed 1 drop, Both Eyes, Once, 09/13/19 at 1215, For 1 do [facility] Medication administered onsite Phenylephrine Hydrochloride 25 MG/ML Oph thalmic Solution phenylephrine (MYDFRIN) 2.5 % ophthalmic solution 1 drop phenylephrine (MYDFRIN) 2.5 % ophthalmic solution 1 drop 09/13/2019 12:15:00 PM EDT 1 [drp] Both Eyes completed 1 drop, Both Eyes, Once, Thu09/13/19 at 1215, For 1 do [facility] Medication administered onsite Tropicamide 10 MG/ML Ophthalmic Solution tropicamide (MYDRIACYL) 1 % ophthalmic solution 1 drop tropicamide (MYDRIACYL) 1 % ophthalmic solution 1 drop 09/13/2019 12:15:00 PM EDT 1 [drp] Both Eyes completed 1 drop, Both Eyes, Once, e 09/13/19 at 1215, For 1 [facility] Medication administered onsite 3 ML heparin sodium, porcine 100 UNT/ML Prefilled Syringe heparin flush (porcine) 100 UNIT/ML injection 500 Units heparin flush (porcine) 100 UNIT/ML injection 500 Units 09/07/2019 06:28:20 PM EDT 500 U Intravenous active 500 Units, Intravenous, PRN, Line Care, Starting Thu09/07/19 at 1828, For 30 days
Verify blood return before use.For deaccessing: flush with 10 mL Sodium Chloride 0.9 % followed by 5 mL Heparin 100 units/mL.Flush per CM C- 34C Central Line Policy for Infusaport.
[facility] Medication administered onsite 3 ML heparin sodium, porcine 100 UNT/ML Prefilled Syringe heparin flush (porcine) 100 UNIT/ML injection 100 Units heparin flush (porcine) 100 UNIT/ML injection 100 Units 09/07/2019 06:01:56 PM EDT 100 U Intracatheter active 100 Units, Intracatheter, WI N, Line Care, Starting Thu09/07/19 at 1801, For 30 days [facility] Medication administered onsite Acetazolamide 250 MG Oral Tablet acetaZOLAMIDE (DIAMOX ) tablet 250 mg acetaZOLAMIDE (DIAMOX) tablet 250 mg 09/07/2019 04:45:00 PM EDT 250 m g Oral active 250 mg, Oral, 2 Times Daily, First dose on Thu09/07/19 at 1645, For 30 days [facility] Medication administered onsite sodium chloride (preservative free) 0.9 % flush 10 mL 36436- 186-00 09/07/2019 06:09:39 AM EDT 10 mL Intravenous active 10 mL, Intravenous, PRN, Line Care, Starting Thu09/07/19 at 0609, For 30 days
Verify blood return before use.For intermittent access: flush with 10 mL Sodium Chloride 0.9 % followed by 5 mL Heparin 10 units/mL.Flush per CM C-34C Central Line Policy for [facility]usaport.
[facility] Medication administered onsite heparin sodium, porcine 10 UNT/ML Inject able Solution heparin lock flush 10 UNIT/ML injection 50 Units heparin lock flush 10 UNIT/ML injection 50 Units 09/07/2019 06:09:39 AM EDT 50 U Intravenous active 50 Units, Intravenous, PRN, Line Care, Starting Thu09/07/19 at 0609, For 30 days
Verify blood return before use.For intermittent access: flush with 10 mL Sodium Chloride 0.9 % followed by 5 mL Heparin 10 units/mL.Flush per CM C-34C Central Line Policy for Infusaport.
[facility] Medication administered onsite Acetazolamide 250 MG Oral Tablet acetaZOLAMIDE 250 MG Oral Tablet (DIAMOX) acetaZOLAMIDE 250 MG Oral Tablet (DIAMOX) 09/07/2019 12:00:00 AM EDT Oral active Take 1 tablet by mouth Two Times Daily for 7 days, THEN 2 tablets Two Times Daily.. [facility] Clozapine 100 MG Oral Tablet clozapine (CLOZARIL) tabl et 100 mg clozapine (CLOZARIL) tablet 100 mg 09/06/2019 10:00:00 PM EDT 100 mg Oral active 100 mg, Oral, Nightly, First dose on Thu09/06/19 at 22 00, For 30 days [facility] Medication administered onsite gadobutrol (GADAVIST) contrast injection 11 mL [id number] 0 09/06/2019 05:15:00 PM EDT 0.1 mL/kg Intravenous completed 11 mL (r ounded from 11.16 mL = 0.1 mL/kg 111.6 kg), Intravenous, 1 TIME IMAGING, Thu09/06/19 at 1715, For 1 dose
Do not mix or administer in the same IV line with other medications.
[facility] Medication administered onsite diphenhydrAMINE (BENADRYL) injection 25 mg [id number] 09/06/2019 01:00:00 PM EDT 25 mg Intravenous completed 25 mg, Intravenous, Once, Thu09/06/19 at 1300, For 1 dose [facility] Medication administered onsite magnesium sulfate in dextrose 5 % infusion (premix) 8 mEq [id number] 09/06/2019 01:00:00 PM EDT 8 meq Intravenous completed 8 mEq, Intravenous, Administer over 60 Minutes, Once, Thu09/06/19 at 1300, For 1 dose
each 8 mEq equivalent to 1 gm
[facility] Medication administered onsite Acetaminophen 325 MG Oral Tablet acetaminophen (TYLENO L) tablet 650 mg acetaminophen (TYLENOL) tablet 650 mg 09/06/2019 11:15:54 AM EDT 65 0 mg Oral active 650 mg, Oral, E very 6 hours PRN, Mild Pain (Pain Scale Score 1- 3), Starting Thu09/06/19 at 1115, For 30 days
Maximum daily dose of acetaminophen is 3,000 mg from all sources in 24 hours.
[facility] Medication administered onsite pantoprazole 40 MG Delayed Release Oral Tablet pantoprazole (PROTONIX) EC tablet 40 mg pantoprazole (PROTONIX) EC tablet 40 mg 09/06/2019 09:00:00 AM E DT 40 mg Oral active 40 mg, Ora l, Daily Standard, First dose on Thu09/06/19 at 0900, For 30 days
Do not crush or chew
[facility] Medication administered onsite mycophenolate mofetil 250 MG Oral Capsul e mycophenolate mofetil (CELLCEPT) capsule 1,000 mg mycophenolate mofetil (CELLCEPT) capsule 1,000 mg 08/21 08:00:00 AM EDT 1000 mg Oral active 1,000 mg, Oral, Three Times Daily, First dose on Thu09/06/19 at 0800, For 3 days [facility] Medication administered onsite venlafaxine (EFFEXOR-XR) 24 hr capsule 225 mg 09/06/19 08:00:00 AM EDT 225 mg Oral active 225 mg, Or al, Daily with Breakfast, First dose on Thu09/06/19 at 0800, For 30 days
Do not crush or chew
[facility] Medication administered onsite Pyridostigmine [place] 60 MG Oral Tablet pyridostigmin e (MESTINON) tablet 90 mg pyridostigmine (MESTINON) tablet 90 mg 09/06/2019 12:00:00 AM EDT 9 0 mg Oral active 90 mg, Oral, Ev fabiana 6 hours Standard (4 times per day), First dose on Thu09/06/19 at 0000, For 30 days [facility] Medication administered onsite Acetaminophen 325 MG Oral Tablet acetaminophen (TYLENO L) tablet 650 mg acetaminophen (TYLENOL) tablet 650 mg 09/05/2019 08:45:00 PM EDT 65 0 mg Oral completed 650 mg, Oral, O nce, 09/05/19 at 2044, For 1 dose
Maximum daily dose of acetaminophen is 3,000 mg from all sources in 24 hours.
[facility] Medication administered onsite Amantadine Hydrochloride 100 MG Oral Capsule amantadine HCl 09/02/2019 12:00:00 AM EDT 100 mg by mouth completed [id number] amantadine HCl by mouth [id number] 09/02/2019 10/02/2019 twice a day 30 100 mg capsule 41735 [id number] Kemi Buckley [id number] Psychiatric/Mental Health [facility]) aripiprazole 5 MG Oral Tablet [Abilify] Abilify 08/02/2019 12: 00:00 AM EDT 5 mg by mouth completed 500661 Abilify by mouth [id number] 08/02/2019 09/01/2019 at bedtime 30 5 mg tablet 30167 [id number] Estela Balbuena [id number] Nurse Practitioner [facility] ([facility]) aripiprazole 5 MG Oral Tablet [Abilify] Abilify 08/02/2019 12: 00:00 AM EDT 5 mg by mouth completed 564645 Abilify by mouth [id number] 08/02/2019 09/01/2019 at bedtime 30 5 mg tablet 85282 [id number] [id number] Estela Balbuena [id number] Nurse Practitioner [facility] ([facility]) Naltrexone hydrochloride 50 MG Oral Tabl et Naltrexone HCl 50 MG Oral Tablet (DEPADE) Naltrexone HCl 50 MG Oral Tablet (DEPADE) 08/02/2019 12:00:00 AM EDT active Only take as directed on your [facility] Mirtazapine 30 MG Oral Tablet mirtazapine 07/28/2019 12:00:00 AM EDT 30 mg by mouth completed 871695 mirtazapine by mouth [id number] 07/2703/25/2020 at bedtime 30 30 mg tablet 61082 857610 [id number] Estela Balbuena [id number] Nurse Practitioner [facility] ([facility]) Clozapine 100 MG Oral Tablet [Clozaril] Clozaril 07/28/2019 12: 00:00 AM EDT 100 mg by mouth completed 315952 Clozaril by mouth [id number] 8 07/28/2019 09/24/2019 at bedtime 30 100 mg tablet as directed 44950 353703 [phone] [id number] Nikko Balbuena [id number] Nurse Practitioner [facility] ([facility]) Mirtazapine 30 MG Oral Tablet mirtazapine 07/28/2019 12:00:00 AM EDT 30 mg by mouth completed 595947 mirtazapine by mouth [id number] 07/2708/27/2019 at bedtime 30 30 mg tablet 68967 [id number] Estela Balbuena [id number] Nurse Practitioner [facility] ([facility]) Mirtazapine 30 MG Oral Tablet mirtazapine 07/28/2019 12:00:00 AM EDT 30 mg by mouth completed 842115 mirtazapine by mouth [id number] 07/2701/23/2020 at bedtime 30 30 mg tablet 18846 219334 [id number] Estela Balbuena [id number] Nurse Practitioner [facility] ([facility]) zaleplon 10 MG Oral Capsule zaleplon 07/28/2019 12:00:00 AM EDT 10 mg by mouth completed 169609 zaleplon by mouth [id number] 07/28/19 20 09/24/2019 at bedtime 30 10 mg capsule 73113 792258 [id number] Nikko Balbuena 3 [id number] Nurse Practitioner [facility] ([facility]) Mirtazapine 30 MG Oral Tablet mirtazapine 07/28/2019 12:00:00 AM EDT 30 mg by mouth completed 391563 mirtazapine by mouth [id number] 07/2708/27/2019 at bedtime 30 30 mg tablet 27650 939771 [id number] Estela Balbuena [id number] Nurse Practitioner [facility] ([facility]) Mirtazapine 30 MG Oral Tablet mirtazapine 07/28/2019 12:00:00 AM EDT 30 mg by mouth completed 491780 mirtazapine by mouth [id number] 07/2711/23/2019 at bedtime 30 30 mg tablet 96478 912907 [id number] Etsela Balbuena [id number] Nurse Practitioner [facility] ([facility]) Clozapine 100 MG Oral Tablet [Clozaril] Clozaril 07/28/2019 12: 00:00 AM EDT 100 mg by mouth completed 912216 Clozaril by mouth [id number] 8 07/28/2019 08/27/2019 at bedtime 30 100 mg tablet as directed 79740 968859 [phone] [id number] Nikko Balbuena [id number] Nurse Practitioner [facility] ([facility]) zaleplon 10 MG Oral Capsule zaleplon 07/28/2019 12:00:00 AM EDT 10 mg by mouth completed 312651 zaleplon by mouth [id number] 07/28/19 20 09/24/2019 at bedtime 30 10 mg capsule 82200 234183 [id number] Nikko Balbuena 3 [id number] Nurse Practitioner [facility] ([facility]) zaleplon 10 MG Oral Capsule zaleplon 07/28/2019 12:00:00 AM EDT 10 mg by mouth completed 857716 zaleplon by mouth [id number] 07/28/19 20 08/27/2019 at bedtime 30 10 mg capsule 48557 762308 [id number] Nikko Balbuena 3 [id number] Nurse Practitioner [facility] ([facility]) Clozapine 100 MG Oral Tablet [Clozaril] Clozaril 07/28/2019 12: 00:00 AM EDT 100 mg by mouth completed 311697 Clozaril by mouth [id number] 8 07/28/2019 09/02/2019 at bedtime 30 100 mg tablet as directed 08484 394624 [id number] Nikko Balbuena [id number] Nurse Practitioner [facility] ([facility]) torsemide 20 MG Oral Tablet Torsemide 07/01/2019 12:00:00 AM EDT active [facility] ([facility]) doxycycline hyclate 100 MG Oral Capsule Doxycycline Hyclate 07/01/2019 12:00:00 AM EDT active [facility] ([facility], [facility]) torsemide 20 MG Oral Tablet Torsemide 20 MG Torsemide 20 MG 06/01/2019 12:00:00 AM EDT active 1 tab eCW1 ([facility]) torsemide 20 MG Oral Tablet Torsemide 20 MG Torsemide 20 MG 06/01/2019 12:00:00 AM EDT active 1 tab eCW1 ([facility]) Senna 8.6 MG Senna 8.6 MG 06/01/2019 12:00:00 AM EDT active 2 tablets at bedtime as needed eCW1 ([facility]) Senna 8.6 MG Senna 8.6 MG 06/01/2019 12:00:00 AM EDT active 2 tablets at bedtime as needed eCW1 ([facility]) Senna 8.6 MG Senna 8.6 MG 06/01/2019 12:00:00 AM EDT active 2 tablets at bedtime as needed eCW1 ([facility]) torsemide 20 MG Oral Tablet Torsemide 20 MG Torsemide 20 MG 06/01/2019 12:00:00 AM EDT active 1 tab eCW1 ([facility]) Senna 8.6 MG Senna 8.6 MG 06/01/2019 12:00:00 AM EDT active 2 tablets at bedtime as needed eCW1 ([facility]) torsemide 20 MG Oral Tablet Torsemide 20 MG Torsemide 20 MG 06/01/2019 12:00:00 AM EDT active 1 tab eCW1 ([facility]) Lorazepam 1 MG Oral Tablet [Ativan] Ativan 05/25/2019 12:00:00 AM EST 1 mg by mouth completed [id number] Ativan by mouth [id number] 05/25/2019 06/24/2019 at bedtime 30 1 mg tablet 57543 745839 [id number] Mg Viramontes 36 [id number] [facility] ([facility]) Lorazepam 1 MG Oral Tablet [Ativan] Ativan 05/25/2019 12:00:00 AM EST 1 mg by mouth completed [id number] Ativan by mouth [id number] 05/25/2019 06/24/2019 at bedtime 30 1 mg tablet 65955 407331 [id number] Mg Viramontes 36 [id number] [facility] ([facility]) Lorazepam 1 MG Oral Tablet [Ativan] Ativan 05/25/2019 12:00:00 AM EST 1 mg by mouth completed 991589 Ativan by mouth [id number] 05/25/2019 07/23/2019 at bedtime 30 1 mg tablet 59683 897138 [id number] Nikko Balbuena 36 [id number] Nurse Practitioner [facility] ([facility]) Lorazepam 1 MG Oral Tablet [Ativan] Ativan 05/25/2019 12:00:00 AM EST 1 mg by mouth completed [id number] Ativan by mouth [id number] 05/25/2019 06/24/2019 at bedtime 30 1 mg tablet 78542 [id number] [id number] Mg Viramontes 36 [id number] Psych[facility]/Mental Health [facility] ([facility]) 1 ML Ketorolac Tromethamine 30 MG/ML Car tridge ketorolac (TORADOL) 30 MG/ML injection 30 mg ketorolac (TORADOL) 30 MG/ML injection 30 mg 0 10:00:00 AM EST 30 mg Intravenous completed 30 mg, Intravenous, Once, e 05/17/19 at 1000, For 1 dose, Recovery
In PACU
[facility] Medication administered onsite ondansetron (ZOFRAN) injection 4 mg [id number] 05/17/2019 09:57:3 9 AM EST 4 mg Intravenous active 4 mg, In travenous, Once PRN, Nausea, Vomiting, Starting Thu05/17/19 at 0957, For 1 dose, Recovery [facility] Medication administered onsite fentaNYL (SUBLIMAZE) (PF) injection 25 mcg [id number] 05/17/2019 09:57:39 AM EST 25 ug Intravenous active 25 m cg, Intravenous, Every 5 min PRN, Severe Pain (Pain Scale Score 7-10), Starting Thu05/17/19 at 0957, For 10 doses, [facility] Medication administered onsite fentaNYL (SUBLIMAZE) (PF) injection 12.5 mcg [id number] 05/17/2019 09:57:39 AM EST 12.5 ug Intravenous active 12.5 mcg, Intravenous, Every 5 min PRN, Moderate Pain (Pain Scale Score 4-6), Starting Thu05/17/19 at 0957, For 10 doses, [facility] Medication administered onsite TC-99M tilmanocept (LYMPHOSEEK) [id number] 05/17/2019 07:15:00 AM EST Intravenous completed Intravenous, Once, e 05/17/19 at 0715, For 1 dose, Imaging Protocol [facility] Medication administered onsite Calcium Chloride 0.0014 MEQ/ML / Potassi um Chloride 0.004 MEQ/ML / Sodium Chloride 0.103 MEQ/ML / Sodium Lactate 0.028 MEQ/ML Injectable Solution lactated ringers infusion lactated ringers infusion 05/17/2019 06:30:00 AM EST 100 mL/h Intravenous active at 100 m L/hr, Intravenous, Continuous, Starting Thu05/17/19 at 0630, For 1 day
Keep Vein Open. Use Wide Tubing.
Pre-op [facility] Medication administered onsite Acetaminophen 325 MG / Hydrocodone Fady trate 5 MG Oral Tablet HYDROcodone- Acetaminophen 5-325 MG Oral Tablet (LORTAB) HYDROcodone-Acetaminophen 5-325 MG Oral Tablet (LORTAB) 05/17/2019 12:00:00 AM EST Oral active Take 1-2 tablets by mouth every 6 (six) hours as needed for Pain for up to 10 days, Max Daily Dose: 8 tablets [facility] zaleplon 10 MG Oral Capsule zaleplon 05/11/2019 12:00:00 AM EST 10 mg by mouth completed [id number] zaleplon by mouth [id number] 05/11/19 20 07/07/2019 at bedtime 30 10 mg capsule 54291 [id number] Kemi Buckley [id number] [facility] ([facility]) zaleplon 10 MG Oral Capsule zaleplon 05/11/2019 12:00:00 AM EST 10 mg by mouth completed [id number] zaleplon by mouth [id number] 05/11/19 20 07/23/2019 at bedtime 30 10 mg capsule 94929 [id number] [id number] Nikko Balbuena 3 [id number] Nurse Practitioner [facility] ([facility]) Omeprazole 20 MG Delayed Release Oral Ca psule Omeprazole 20 MG Oral Capsule Delayed Release (PriLOSEC) Omeprazole 20 MG Oral Capsule Delayed Re lease (PriLOSEC) 05/04/2019 12:00:00 AM EST 20 mg Oral active Take 20 mg by mouth daily [facility] ramelteon 8 MG Oral Tablet Ramelteon 8 MG Oral Tablet (ROZEREM) Ramelteon 8 MG Oral Tablet (ROZEREM) 05/04/2019 12:00:00 AM EST 8 mg Oral active Take 8 mg by mouth nightly [facility] Clozapine 100 MG Oral Tablet cloZAPine 100 MG Oral Tab let (CLOZARIL) cloZAPine 100 MG Oral Tablet (CLOZARIL) 05/04/2019 12:00:00 AM EST 100 mg Ora l active Take 100 mg by mouth nightly [facility] Clozapine 100 MG Oral Tablet [Clozaril] Clozaril 05/02/2019 12: 00:00 AM EST 100 mg by mouth completed [id number] Clozaril by mouth [id number] 8 05/02/2019 07/21/2019 at bedtime 28 100 mg tablet as directed [id number] [phone] [id number] Nikko Balbuena [id number] Nurse Practitioner [facility] ([facility]) Clozapine 100 MG Oral Tablet [Clozaril] Clozaril 05/02/2019 12: 00:00 AM EST 100 mg by mouth completed [id number] Clozaril by mouth [id number] 8 05/02/2019 06/29/2019 at bedtime 28 100 mg tablet as directed 70954 [id number] [phone] Mg Viramontes [id number] [facility]) Lorazepam 0.5 MG Oral Tablet [Ativan] Ativan 04/21/2019 12:00 :00 AM EST 0.5 mg by mouth completed [id number] Ativan by mouth [id number] 0 04/21/2019 05/21/2019 at bedtime 30 0.5 mg tablet 49758 298542 [id number] Mg Viramontes [id number] [facility] ([facility]) Lorazepam 0.5 MG Oral Tablet LORazepam 0.5 MG Oral Tab let (ATIVAN) LORazepam 0.5 MG Oral Tablet (ATIVAN) 04/21/2019 12:00:00 AM EST aborted TAKE ONE TABLET BY MOUTH EVERY DAY AT BEDTIME MAXIMUM DAILY DOSE 1 TABLET [facility] Furosemide 20 MG Oral Tablet Furosemide 20 MG Oral Tab let (LASIX) Furosemide 20 MG Oral Tablet (LASIX) 04/09/2019 12:00:00 AM EST 20 mg Oral aborted Take 20 mg by mouth daily [facility] zaleplon 10 MG Oral Capsule zaleplon 03/09/2019 12:00:00 AM EST 10 mg by mouth completed [id number] zaleplon by mouth [id number] 03/09/20 19 04/30/2019 at bedtime 30 10 mg capsule 86630 [id number] Mg Viramontes 3 [id number] [facility] ([facility]) zaleplon 10 MG Oral Capsule zaleplon 03/09/2019 12:00:00 AM EST 10 mg by mouth completed [id number] zaleplon by mouth [id number] 03/09/20 19 04/30/2019 at bedtime 30 10 mg capsule 61268 [id number] [id number] Mg Viramontes 3 [id number] [facility] ([facility]) 24 HR venlafaxine 75 MG Extended Release Oral Tablet venlafa xine 02/28/2019 12:00:00 AM EST 75 mg by mouth completed [id number] ve nlafaxine by mouth [id number] 02/28/2019 08/23/2019 every morning 30 75 mg tablet exte nded release 24hr 51665 939395 [id number] Mg Viramontes [id number] Ps [facility] ([facility]) 24 HR venlafaxine 75 MG Extended Release Oral Tablet venlafa xine 02/28/2019 12:00:00 AM EST 75 mg by mouth completed 167993 ve nlafaxine by mouth [id number] 02/28/2019 09/21/2019 every morning 30 75 mg tablet exte nded release 24hr 12722 [id number] Nikko Balbuena [id number] Nurse Daniela hernandez [facility] ([facility]) 24 HR venlafaxine 75 MG Extended Release Oral Tablet venlafa xine 02/28/2019 12:00:00 AM EST 75 mg by mouth completed [id number] ve nlafaxine by mouth [id number] 02/28/2019 06/29/2019 every morning 30 75 mg tablet exte nded release 24hr 49313 620720 [id number] Mg Viramontes [id number] Ps ychiatric/Mental Health [facility] ([facility]) 24 HR venlafaxine 75 MG Extended Release Oral Tablet venlafa xine 02/28/2019 12:00:00 AM EST 75 mg by mouth completed [id number] ve nlafaxine by mouth [id number] 02/28/2019 08/27/2019 every morning 30 75 mg tablet exte nded release 24hr 15983 [id number] Nikko Blaine [id number] Nurse Practi tioner [facility] ([facility]) 24 HR venlafaxine 75 MG Extended Release Oral Tablet venlafa xine 02/28/2019 12:00:00 AM EST 75 mg by mouth completed [id number] ve nlafaxine by mouth [id number] 02/28/2019 11/23/2019 every morning 30 75 mg tablet exte nded release 24hr [id number] [phone] Nikko Balbuena [id number] Nurse Practi tioner [facility] ([facility]) 24 HR venlafaxine 75 MG Extended Release Oral Tablet venlafa xine 02/28/2019 12:00:00 AM EST 75 mg by mouth completed [id number] ve nlafaxine by mouth [id number] 02/28/2019 08/27/2019 every morning 30 75 mg tablet exte nded release 24hr [id number] [id number] [id number] Nikko Blaine [id number] Nurse Practi tioner [facility] ([facility]) Doxycycline Monohydrate 100 MG Oral Capsule Doxycycline [place] hydrate 02/26/2019 12:00:00 AM EST ORAL completed [facility] ([facility]) Prednisone 20 MG Oral Tablet Prednisone 02/26/2019 12:00:00 AM EST ORAL completed [facility] ([facility]) 200 ACTUAT Albuterol 0.09 MG/ACTUAT Metered Dose Inhaler [Pr oAir] Proair HFA 02/26/2019 12:00:00 AM EST ORAL completed [facility] ([facility]) Amphetamine aspartate 5 MG / Amphetamine Sulfate 5 MG / Dextroamphetamine saccharate 5 MG / Dextroamphetamine Sulfate 5 MG Oral Tablet [Adderall] Adderall 01/17/2019 12:00:00 AM EDT 20 mg by mouth completed [id number] Adderall by mouth [id number] 01/17/2019 03/16/2019 twice a day 30 20 mg tablet 16280 009700 [id number] [facility] [id number] Psychiatry [facility] ([facility]) Amphetamine aspartate 5 MG / Amphetamine Sulfate 5 MG / Dextroamphetamine saccharate 5 MG / Dextroamphetamine Sulfate 5 MG Oral Tablet [Adderall] Adderall 01/17/2019 12:00:00 AM EDT 20 mg by mouth completed [id number] Adderall by mouth [id number] 01/17/2019 05/21/2019 twice a day 30 20 mg tablet 56277 962944 [id number] Mg Viramontes [id number] [facility] ([facility]) Amphetamine aspartate 5 MG / Amphetamine Sulfate 5 MG / Dextroamphetamine saccharate 5 MG / Dextroamphetamine Sulfate 5 MG Oral Tablet [Adderall] Adderall 01/17/2019 12:00:00 AM EDT 20 mg by mouth completed [id number] Adderall by mouth [id number] 01/17/2019 05/21/2019 twice a day 30 20 mg tablet 78164 461828 [id number] Mg Viramontes [id number] [facility] ([facility]) Amphetamine aspartate 5 MG / Amphetamine Sulfate 5 MG / Dextroamphetamine saccharate 5 MG / Dextroamphetamine Sulfate 5 MG Oral Tablet [Adderall] Adderall 01/17/2019 12:00:00 AM EDT 20 mg by mouth completed [id number] Adderall by mouth [id number] 01/17/2019 04/30/2019 twice a day 30 20 mg tablet 32425 055848 [id number] Mg Viramontes [id number] [facility] ([facility]) Amphetamine aspartate 5 MG / Amphetamine Sulfate 5 MG / Dextroamphetamine saccharate 5 MG / Dextroamphetamine Sulfate 5 MG Oral Tablet [Adderall] Adderall 01/17/2019 12:00:00 AM EDT 20 mg by mouth completed [id number] Adderall by mouth [id number] 01/17/2019 05/21/2019 twice a day 30 20 mg tablet 35184 878445 [id number] Mg Viramontes [id number] [facility] ([facility]) Docusate Sodium 100 MG Oral Capsule [Colace] Colace 12:00:00 AM EDT 100 mg by mouth completed [id number] Colace by mouth [id number] 8 11/16/2018 04/17/2019 every morning 30 100 mg capsule 80736 985233 [id number] 4 Mg Viramontes [id number] [facility] ([facility]) ramelteon 8 MG Oral Tablet ramelteon 11/16/2018 12:00:00 AM EDT 8 mg by mouth completed [id number] ramelteon by mouth [id number] 11/16/2018 at bedtime 30 8 mg tablet 40678 838087 [id number] Mg Viramontes 36 [id number] [facility] ([facility]) Docusate Sodium 100 MG Oral Capsule [Colace] Colace 12:00:00 AM EDT 100 mg by mouth completed [id number] Colace by mouth [id number] 8 11/16/2018 09/21/2019 every morning 30 100 mg capsule 20832 [id number] 4 Nikko Balbuena [id number] Nurse Practitioner [facility] ([facility]) ramelteon 8 MG Oral Tablet ramelteon 11/16/2018 12:00:00 AM EDT 8 mg by mouth completed [id number] ramelteon by mouth [id number] 11/16/2018 at bedtime 30 8 mg tablet 59164 488896 [id number] Mg Viramontes 36 [id number] [facility] ([facility]) ramelteon 8 MG Oral Tablet ramelteon 11/16/2018 12:00:00 AM EDT 8 mg by mouth completed [id number] ramelteon by mouth [id number] 11/16/2018 at bedtime 30 8 mg tablet 01425 750478 [id number] Mg Viramontes 36 [id number] [facility] ([facility]) Docusate Sodium 100 MG Oral Capsule [Colace] Colace 12:00:00 AM EDT 100 mg by mouth completed [id number] Colace by mouth [id number] 8 11/16/2018 06/29/2019 every morning 30 100 mg capsule 98603 986760 [id number] 4 Mg Viramontes [id number] [facility] ([facility]) ramelteon 8 MG Oral Tablet ramelteon 11/16/2018 12:00:00 AM EDT 8 mg by mouth completed [id number] ramelteon by mouth [id number] 11/16/2018 at bedtime 30 8 mg tablet 64826 319247 [id number] Mg Viramontes 36 [id number] [facility] ([facility]) Docusate Sodium 100 MG Oral Capsule [Colace] Colace 12:00:00 AM EDT 100 mg by mouth completed [id number] Colace by mouth [id number] 8 11/16/2018 06/29/2019 every morning 30 100 mg capsule 37815 044597 [id number] 4 Mg Viramontes [id number] [facility] ([facility]) ramelteon 8 MG Oral Tablet ramelteon 11/16/2018 12:00:00 AM EDT 8 mg by mouth completed [id number] ramelteon by mouth [id number] 11/16/2018 at bedtime 30 8 mg tablet 99316 053871 [id number] Mg Viramontes 36 [id number] [facility] ([facility]) Docusate Sodium 100 MG Oral Capsule [Colace] Colace 12:00:00 AM EDT 100 mg by mouth completed [id number] Colace by mouth [id number] 8 11/16/2018 02/14/2019 every morning 30 100 mg capsule 44031 567053 [id number] 4 Mg Viramontes [id number] [facility] ([facility]) ramelteon 8 MG Oral Tablet ramelteon 11/16/2018 12:00:00 AM EDT 8 mg by mouth completed [id number] ramelteon by mouth [id number] 11/16/2018 at bedtime 30 8 mg tablet 38768 399862 [id number] Mg Viramontes 36 [id number] [facility] ([facility]) Docusate Sodium 100 MG Oral Capsule [Colace] Colace 12:00:00 AM EDT 100 mg by mouth completed [id number] Colace by mouth [id number] 8 11/16/2018 07/28/2019 every morning 30 100 mg capsule 90386 140405 [id number] 4 Nikko Balbuena [id number] Nurse Practitioner [facility] ([facility]) Docusate Sodium 100 MG Oral Capsule [Colace] Colace 12:00:00 AM EDT 100 mg by mouth completed [id number] Colace by mouth [id number] 8 11/16/2018 06/29/2019 every morning 30 100 mg capsule 31627 000274 [id number] 4 Mg Viramontes [id number] [facility] ([facility]) ramelteon 8 MG Oral Tablet ramelteon 11/16/2018 12:00:00 AM EDT 8 mg by mouth completed [id number] ramelteon by mouth [id number] 11/16/2018 at bedtime 30 8 mg tablet 93192 082839 [id number] Nikko Balbuena [id number] Nurse Practitioner [facility] ([facility]) Docusate Sodium 100 MG Oral Capsule [Colace] Colace 12:00:00 AM EDT 100 mg by mouth completed [id number] Colace by mouth [id number] 8 11/16/2018 06/29/2019 every morning 30 100 mg capsule 46279 957852 [id number] 4 Mg Viramontes [id number] [facility] ([facility]) ramelteon 8 MG Oral Tablet ramelteon 11/16/2018 12:00:00 AM EDT 8 mg by mouth completed [id number] ramelteon by mouth [id number] 11/16/2018 at bedtime 30 8 mg tablet 42165 452369 [id number] Nikko Balbuena [id number] Nurse Practitioner [facility] ([facility]) ropinirole 0.25 MG Oral Tablet [Requip] Requip 08/24/2018 12: 00:00 AM EDT 0.25 mg by mouth completed [id number] Requip by mouth [id number] 0 08/24/2018 03/31/2019 every morning 30 0.25 mg tablet 92759 581124 [id number] 4 Mg Viramontes [id number] [facility] ([facility]) ropinirole 0.25 MG Oral Tablet [Requip] Requip 08/24/2018 12: 00:00 AM EDT 0.25 mg by mouth completed [id number] Requip by mouth [id number] 0 08/24/2018 03/31/2019 every morning 30 0.25 mg tablet 45568 956629 [id number] 4 Mg Viramontes [id number] [facility] ([facility]) ropinirole 0.25 MG Oral Tablet [Requip] Requip 08/24/2018 12: 00:00 AM EDT 0.25 mg by mouth completed [id number] Requip by mouth [id number] 0 08/24/2018 09/22/2019 every morning 30 0.25 mg tablet 30676 638079 [id number] 4 Mg Viramontes [id number] [facility] ([facility]) ropinirole 0.25 MG Oral Tablet [Requip] Requip 08/24/2018 12: 00:00 AM EDT 0.25 mg by mouth completed [id number] Requip by mouth [id number] 0 08/24/2018 10/21/2019 every morning 30 0.25 mg tablet 09548 567967 [id number] 4 Nikko Balbuena [id number] Nurse Practitioner [facility] ([facility]) ropinirole 0.25 MG Oral Tablet [Requip] Requip 08/24/2018 12: 00:00 AM EDT 0.25 mg by mouth completed [id number] Requip by mouth [id number] 0 08/24/2018 03/31/2019 every morning 30 0.25 mg tablet 38561 834712 [id number] 4 Mg Viramontes [id number] [facility] ([facility]) ropinirole 0.25 MG Oral Tablet [Requip] Requip 08/24/2018 12: 00:00 AM EDT 0.25 mg by mouth completed [id number] Requip by mouth [id number] 0 08/24/2018 07/01/2019 every morning 30 0.25 mg tablet 91242 612328 [id number] 4 Mg Viramontes [id number] [facility] ([facility]) ropinirole 0.25 MG Oral Tablet [Requip] Requip 08/24/2018 12: 00:00 AM EDT 0.25 mg by mouth completed [id number] Requip by mouth [id number] 0 08/24/2018 03/31/2019 every morning 30 0.25 mg tablet 52410 996351 [id number] 4 Mg Viramontes [id number] [facility] ([facility]) ropinirole 0.25 MG Oral Tablet [Requip] Requip 08/24/2018 12: 00:00 AM EDT 0.25 mg by mouth completed [id number] Requip by mouth [id number] 0 08/24/2018 07/01/2019 every morning 30 0.25 mg tablet 27455 442096 [id number] 4 Mg Viramontes [id number] [facility] ([facility]) ropinirole 0.25 MG Oral Tablet [Requip] Requip 08/24/2018 12: 00:00 AM EDT 0.25 mg by mouth completed [id number] Requip by mouth [id number] 0 08/24/2018 07/28/2019 every morning 30 0.25 mg tablet 22306 809593 [id number] 4 Nikko Balbuena [id number] Nurse Practitioner [facility] ([facility]) ropinirole 0.25 MG Oral Tablet [Requip] Requip 08/24/2018 12: 00:00 AM EDT 0.25 mg by mouth completed [id number] Requip by mouth [id number] 0 08/24/2018 07/01/2019 every morning 30 0.25 mg tablet 53272 795640 [id number] 4 Mg Viramontes [id number] [facility] ([facility]) Folic Acid 1 MG Oral Tablet Folic Acid 1 MG Oral Table t (FOLVITE) Folic Acid 1 MG Oral Tablet (FOLVITE) 06/10/2018 12:00:00 AM EDT aborted TAKE ONE TABLET BY MOUTH EVERY DAY [facility] Naltrexone hydrochloride 50 MG Oral Tablet naltrexone 06/04/2018 12:00:00 AM EDT 50 mg by mouth completed [id number] naltrexone by [facility] [id number] 06/04/2018 07/28/2019 once a day 50 mg tablet as directed 73071 606332 [id number] Nikko Balbuena [id number] Nurse Practitioner [facility] ([facility]) Amphetamine aspartate 2.5 MG / Amphetami ne Sulfate 2.5 MG / Dextroamphetamine saccharate 2.5 MG / Dextroamphetamine Sulfate 2.5 MG Oral Tablet Amphetamine- Dextroamphetamine 10 MG Oral Tablet (ADDERALL) Amphetamine-Dextroamphetamine 10 MG Oral Tablet (ADDERALL) 05/11/2018 12:00:00 AM EST aborted TAKE ONE TABLET BY MOUTH TWICE A DAY MAXIMUM DAILY DOSE 2 [facility] Mirtazapine 30 MG Oral Tablet mirtazapine 02/22/2018 12:00:00 AM EST 30 mg by mouth completed [id number] mirtazapine by mouth [id number] 02/2203/31/2019 at bedtime 30 30 mg tablet 70623 125414 [id number] [facility] W[place] [id number] [facility] ([facility]) Mirtazapine 30 MG Oral Tablet mirtazapine 02/22/2018 12:00:00 AM EST 30 mg by mouth completed [id number] mirtazapine by mouth [id number] 02/2207/01/2019 at bedtime 30 30 mg tablet 27120 423515 [id number] [facility] [place] [id number] [facility] ([facility]) Mirtazapine 30 MG Oral Tablet mirtazapine 02/22/2018 12:00:00 AM EST 30 mg by mouth completed [id number] mirtazapine by mouth [id number] 02/2203/31/2019 at bedtime 30 30 mg tablet 18760 [id number] [id number] [facility] [place] [id number] [facility] ([facility]) Mirtazapine 30 MG Oral Tablet mirtazapine 02/22/2018 12:00:00 AM EST 30 mg by mouth completed [id number] mirtazapine by mouth [id number] 02/2203/31/2019 at bedtime 30 30 mg tablet 79467 911157 [id number] [facility] [place] [id number] [facility] ([facility]) Mirtazapine 30 MG Oral Tablet mirtazapine 02/22/2018 12:00:00 AM EST 30 mg by mouth completed [id number] mirtazapine by mouth [id number] 02/2203/31/2019 at bedtime 30 30 mg tablet 44619 920505 [id number] [facility] [place] [id number] [facility] ([facility]) Mirtazapine 30 MG Oral Tablet mirtazapine 02/22/2018 12:00:00 AM EST 30 mg by mouth completed [id number] mirtazapine by mouth [id number] 02/2207/01/2019 at bedtime 30 30 mg tablet 04002 702782 [id number] [facility] [place] [id number] [facility] ([facility]) Prazosin 1 MG Oral Capsule prazosin (MINIPRESS) 1 MG c apsule prazosin (MINIPRESS) 1 MG capsule 02/09/2018 12:00:00 AM EST aborted [facility] Hydroxyzine Hydrochloride 50 MG Oral Tablet hydrOXYzin e (ATARAX) 50 MG tablet hydrOXYzine (ATARAX) 50 MG tablet 02/09/2018 12:00:00 AM EST aborted [facility] aripiprazole 20 MG Oral Tablet ARIPiprazole (ABILIFY) 20 MG tablet ARIPiprazole (ABILIFY) 20 MG tablet 01/29/2018 12:00:00 AM EST aborted [facility] Ondansetron 4 MG Disintegrating Oral Tab let ondansetron (ZOFRAN-ODT) 4 MG disintegrating tablet ondansetron (ZOFRAN-ODT) 4 MG disintegrating tablet 12/17/2017 12:00:00 AM EDT aborted DISSOLVE ONE TABLET ON TONGUE EVERY 4 HOURS NEEDED FOR NAUSEA [facility] Pyridostigmine [place] 60 MG Oral Tablet pyridostigmin e (MESTINON) 60 MG tablet pyridostigmine (MESTINON) 60 MG tablet 12/03/2017 12:00:00 AM EDT 9 0 mg Oral aborted Take 90 mg by mouth Four times daily [facility] Naltrexone hydrochloride 50 MG Oral Tablet naltrexone (DEPADE) 50 MG tablet naltrexone (DEPADE) 50 MG tablet 12/02/2017 12:00:00 AM EDT aborted Only take as directed on your handout [facility] aripiprazole 5 MG Oral Tablet ARIPiprazole (ABILIFY) 5 MG tablet ARIPiprazole (ABILIFY) 5 MG tablet 11/17/2017 12:00:00 AM EDT a [facility] Suvorexant 5 MG Oral Tablet [Belsomra] BELSOMRA 5 MG TABS BE LSOMRA 5 MG TABS 11/06/2017 12:00:00 AM EDT aborted [facility] Naproxen 375 MG Oral Tablet naproxen (NAPROSYN) 375 MG tablet naproxen (NAPROSYN) 375 MG tablet 09/19/2017 12:00:00 AM EDT aborted TAKE ONE TABLET BY MOUTH THREE TIMES A DAY NEEDED FOR PAIN [facility] Phenazopyridine hydrochloride 200 MG Ora l Tablet phenazopyridine (PYRIDIUM) 200 MG tablet phenazopyridine (PYRIDIUM) 200 MG tablet 08/27/2017 12:00:00 AM EDT aborted [facility] Folic Acid 1 MG Oral Tablet folic acid 12/04/2016 12:00:00 AM EDT 1 mg completed [id number] folic acid 12/04/2016 07/28/2019 once a day 1 mg tablet 78820 174531 [id number] Nikko Balbuena [id number] Nurse P ractitioner [facility] Furosemide 20 MG Oral Tablet Furosemide 20 MG Oral Tab let (LASIX) Furosemide 20 MG Oral Tablet (LASIX) 20 mg Oral aborted Take 20 mg by mouth Two Times Daily [facility] Insurance Providers Payer name Policy type / Coverage type Policy ID Covered republican ID Covered republican's relationship to pichardo Policy Pichardo Plan Information [facility] [id number] SP [id number] [facility] [id number] SP [id number] [facility] [id number] SP [id number] [facility] I [id number] Self [id number] [facility] I [id number] Self [id number] [facility] I [id number] Self [id number] [facility] I [id number] Self [id number] [facility] I [id number] Self [id number] [facility] O [id number] S [id number] [facility] [id number] SP [id number] Community Plan - [facility] Commercial [id number] Self [id number] [facility] Health Maintenance Organization (HMO) [id number] Self [id number] [facility] Health Maintenance Organization (HMO) [id number] Self [id number] [facility] Health Maintenance Organization (HMO) [id number] Self [id number] [facility] Health Maintenance Organization (HMO) [id number] Self [id number] ANSI-Medicaid [id number] ANSI-Medicaid [id number] [employer] COMM[employer]ITY PLAN MCDO [id number] SP [id number] ANSI-Medicaid [id number] [facility] Health Maintenance Organization (HMO) [id number] Self [id number] [facility] Health Maintenance Organization (HMO) [id number] Self [id number] ANSI-Medicaid [id number] ANSI-Medicaid [id number] [facility] Community Plan Commercial [id number] Self [id number] [facility] Community Plan Medigap Part B [id number] Self [id number] ANSI-Medicaid [id number] ANSI-Medicaid [id number] ANSI-Medicaid [id number] [facility] Community Plan Commercial [id number] Self [id number] [facility] [id number] S [id number] [facility] [id number] S [id number] MEDICAID PROF FEES [id number] S [id number] MEDICAID [id number] S [id number] ANSI-Medicaid [id number] ANSI-Medicaid [id number] ANSI-Medicaid [id number] ANSI-Medicaid [id number] ANSI-Medicaid [id number] [facility] Health Maintenance Organization (HMO) [id number] [facility] [id number] ANSI-Medicaid [id number] ANSI-Medicaid [id number] ANSI-Medicaid [id number] ANSI-Medicaid [id number] ANSI-Medicaid [id number] ANSI-Medicaid [id number] [facility] [id number] ANSI-Medicaid [id number] ANSI-Medicaid [id number] ANSI-Medicaid [id number] ANSI-Medicaid [id number] [facility] Maintenance Organization (HMO) [id number] Self [id number] UNITED HEALTHCARE(MCAID) O [id number] S [id number] [employer] COMMUNITY PLAN MCDHMO [id number] SP [id number] UNITED H [id number] Self [id number] [facility] Maintenance Organization (HMO) [id number] Self [id number] [facility] Maintenance Organization (HMO) [id number] Self [id number] [facility] Organization (HMO) [id number] Self [id number] [facility] Maintenance Organization (HMO) [id number] Self [id number] [facility] Maintenance Organization (HMO) [id number] Self [id number] [employer] COMMUNITY PLAN MCDHMO [id number] SP [id number] [facility] Maintenance Organization (HMO) [id number] Self [id number] Community Plan - [facility] Commercial [id number] Self [id number] [employer] COMMUNITY PLAN MCDHMO [id number] SP [id number] [employer] COMMUNITY PLAN MCDHMO [id number] SP [id number] [employer] COMMUNITY PLAN MCDHMO [id number] SP [id number] [facility] Maintenance Organization (HMO) [id number] Self [id number] [facility] Maintenance Organization (HMO) [id number] Self [id number] [employer] MEDICAID [place] HMO [id number] S [id number] Community Plan - [facility] Commercial Self United Healthcare Commercial Self Medicaid [place] Self UNITED HEALTHCARE(MCAID) P [id number] S [id number] MEDICAID [id number] SP [id number] HMO BLUE [id number] SP [id number] [employer] P [id number] S [id number] BCBS [facility] [id number] S [id number] Problems, Conditions, and Diagnoses Code Display Name Description Problem Type Effective Dates Data Source(s) F41.1 Generalized anxiety disorder Generalized Anxiety Disor kyle Condition 01/17/2020 12:00:00 AM EDT [facility] ([facility]) F90.2 Attention-deficit hyperactivity disorder , combined type Attention- Deficit/Hyperactivity Disorder, Combined presentation Condition 01/17/2020 12:00:00 AM EDT [facility] ([facility]) F33.1 Major depressive disorder, recurrent, mo derate Major Depressive Disorder, Recurrent episode, Moderate Condition 01/17/2020 12:00:00 AM EDT [facility] ([facility]) D72.828 [id number] Other elevated white blood cell (WBC) cou nt Problem 08/03/2019 12:00:00 AM EDT eCW1 ([facility]) D72.828 [id number] Other elevated white blood cell (WBC) cou nt Problem 08/03/2019 12:00:00 AM EDT eCW1 ([facility]) R53.0 [id number] Neoplastic malignant related fatigue Prob lizet 07/01/2019 12:00:00 AM EDT eCW1 ([facility]) R53.0 [id number] Neoplastic malignant related fatigue Prob lizet 07/01/2019 12:00:00 AM EDT eCW1 ([facility]) K59.00 [id number] Constipation, unspecified constipation ty pe Problem 06/01/2019 12:00:00 AM EDT eCW1 ([facility]) K59.00 [id number] Constipation, unspecified constipation ty pe Problem 06/01/2019 12:00:00 AM EDT eCW1 ([facility]) N64.89 [id number] Breast hematoma Problem 05/27/2019 12:00:00 AM EST eCW1 ([facility]) N64.89 [id number] Breast hematoma Problem 05/27/2019 12:00:00 AM EST eCW1 ([facility]) C50.911 [id number] Infiltrating ductal carcinoma of right br east Problem 05/18/2019 12:00:00 AM EST eCW1 ([facility]) C50.911 [id number] Infiltrating ductal carcinoma of right br east Problem 05/18/2019 12:00:00 AM EST eCW1 ([facility]) G70.00 [id number] Myasthenia gravis without (acute) exacerb ation Problem 04/19/2019 12:00:00 AM EST eCW1 ([facility]) C50.311 [id number] Malignant neoplasm o f lower-inner quadrant of right female breast Problem 04/19/2019 12:00:00 AM EST eCW1 ([facility]) C50.311 [id number] Malignant neoplasm o f lower-inner quadrant of right female breast Problem 04/19/2019 12:00:00 AM EST eCW1 ([facility]) C50.919 [id number] Infiltrating ductal carcinoma Problem 04/14/2019 12:00:00 AM EST eCW1 ([facility]) C50.919 [id number] Infiltrating ductal carcinoma Problem 04/14/2019 12:00:00 AM EST eCW1 ([facility]) F28 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 Specified 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 Condition 03/22/2019 12:00:00 AM EST [facility] ([facility]) F06.34 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 Bipolar and Related Disorder Due to Another Medical Condition, With mixed features Condition 03/22/2019 12:00:00 AM EST [facility] ([facility]) F42.2 Mixed obsessional thoughts and acts Obsessive-Co mpulsive Disorder Condition 03/22/2019 12:00:00 AM EST [facility] ([facility]) F42.4 Excoriation (skin-picking) disorder Excoriation (Skin-Picking) Disorder Condition 03/22/2019 12:00:00 AM EST [facility] ([facility]) G70.00 Myasthenia gravis without (acute) exacer bation Myasthenia gravis without (acute) exacerbation Condition 03/22/2019 12:00:00 AM EST [facility] ([facility]) F33.42 Major depressive disorder, recurrent, in full remission Major Depressive Disorder, Recurrent episode, In full remission Condition 019 12:00:00 AM EST [facility] ([facility]) E66.1 [id number] Drug-induced obesity Problem 02/14/2019 12:0 0:00 AM EST eCW1 ([facility]) Z68.41 [id number] Body mass index (BMI) 40.0-44.9, adult Pr oblem 02/14/2019 12:00:00 AM EST eCW1 ([facility]) E66.1 [id number] Drug-induced obesity Problem 02/14/2019 12:0 0:00 AM EST eCW1 ([facility]) Z68.41 [id number] Body mass index (BMI) 40.0-44.9, adult Pr oblem 02/14/2019 12:00:00 AM EST eCW1 ([facility]) ct sim ct sim Diagnosis 12/26/2019 07:54:18 AM ED [facility] consult consult Diagnosis 10/21/2019 11:30:45 AM ED [facility] H47.10 Unspecified papilledema Unspecified papilledema Diagno sis 09/13/2019 12:01:02 PM [facility] G93.2 Benign intracranial hypertension Benign intracra nial hypertension Diagnosis 09/05/2019 10:21:20 PM [facility] H54.7 Unspecified visual loss Unspecified visual loss Diagno sis 09/05/2019 06:19:31 PM [facility] Papilledema Papilledema Diagnosis 09/05/2019 06:19:31 PM [facility] Malignant neoplasm of right breast in female, estrogen receptor positive, unspecified site of breast [C50.911, Z17.0] Malignant neoplasm of right breast in female, estrogen receptor positive, unspecified site of breast [C50.911, Z17.0] Diagnosis 05/17/2019 06:16:42 AM [facility] C50.919 Malignant neoplasm of unspecified site o f unspecified female breast Malignant neoplasm of unspecified site of unspecified female breast Diagnosis 05/12/2019 09:38:00 AM [facility] Z17.0 Estrogen receptor positive status [ER+] Estrogen receptor positive status (ER+) Diagnosis 05/09/2019 11:02:15 AM [facility] C50.311 Malignant neoplasm of lower-inner quadra nt of right female breast Malignant neoplasm of lower-inner quadrant of right female breast Diagnosis 05/09/2019 11:02:15 AM [facility] C50.911 Malignant neoplasm of unspecified site o f right female breast Malignant neoplasm of unspecified site of right female breast Diagnosis 11:02:15 AM [facility] Z80.43 Family history of malignant neoplasm of testis Family history of malignant neoplasm of testis Diagnosis 05/09/2019 10:59:[address] [facility] Z80.0 Family history of malignant neoplasm of digestive organs Family history of malignant neoplasm of digestive organs Diagnosis 05/09/2019 10:59:37 AM [facility] Z80.49 Family history of malignant neoplasm of other genital organs Family history of malignant neoplasm of other genital organs Diagnosis 05/09/2019 10:59:28 AM [facility] Surgeries/Procedures Procedure Description Date Indications Data Source(s) OFFICE OUTPATIENT VISIT 15 MINUTES 01/16 12:00:00 AM EDT - 01/17/2020 12:00:00 AM EDT [facility] ([facility]) OFFICE OUTPATIENT VISIT 15 MINUTES 01/17/2020 12:00:00 AM EDT [facility] ([facility]) Extended Individual Psychotherapy - 45 min 12/29/2019 12:00:00 AM EDT - 12/29/2019 12:00:00 AM EDT [facility] ([facility]) Extended Individual Psychotherapy - 45 min 0 12:00:00 AM EDT [facility] ([facility]) OFFICE OUTPATIENT VISIT 15 MINUTES 12/19 12:00:00 AM EDT - 12/20/2019 12:00:00 AM EDT [facility] ([facility]) OFFICE OUTPATIENT VISIT 15 MINUTES 12/20/2019 12:00:00 AM EDT [facility] ([facility]) Needle electromyography, each extremity, with related paraspinal areas, when performed, done with nerve conduction, amplitude and latency/velocity study; complete, five or more muscles studied, innervated by three or more nerves or four or more spinal levels (list separately in addition to the code for primary procedure). 12/19/2019 12:00:00 AM CALE Cle[facility] ([facility], ) Needle electromyography, each extremity, with related paraspinal areas, when performed, done with nerve conduction, amplitude and latency/velocity study; complete, five or more muscles studied, innervated by three or more nerves or four or more spinal levels (list separately in addition to the code for primary procedure). 12/19/2019 12:00:00 AM EDT MEDEN T ([facility], ) 42399 Nerve conduction studies 13 or more studies NEW 201212/19/2019 12:00:00 AM EDT [facility] ([facility] ) Extended Individual Psychotherapy - 45 min 11/25/2019 12:00:00 AM EDT - 11/25/2019 12:00:00 AM EDT [facility] ([facility]) Extended Individual Psychotherapy - 45 min 0 12:00:00 AM EDT [facility] ([facility]) [id number]"Psychotherapy 0 12:00:00 AM EDT - 09/20/2019 12:00:00 AM EDT [facility] ([facility]) [id number]"Psychotherapy 09/20/2019 12:00:00 AM EDT [facility] ([facility]) FAF PHOTOS OU FAF PHOTOS OU Routine 09/13/2019 4:59 PM EDT Optic nerve swelling 09/13/2019 08:59:56 PM EDT Optic nerve [facility] Optic nerve swelling OCT RETINA OCT RETINA Routine 09/13/2019 4:59 PM EDT Optic nerve swelling 09/13/2019 08:59:44 PM EDT Optic nerve [facility] Optic nerve swelling POSTERIOR SEGMENT OCT (OCULAR COHERENCE TOMOGRAPHY) - OU - BOTH EYES POSTERIOR SEGMENT OCT (OCULAR COHERENCE TOMOGRAPHY) - OU - BOTH EYES Routine 09/13/2019 4:58 PM EDT Optic nerve swelling 09/13/2019 08:58:45 PM EDT Optic nerve [facility] Optic nerve swelling MONTOYA VISUAL FIELD - OU - BOTH EYES MONTOYA VISUAL FIEL D - OU - BOTH EYES Routine 09/13/2019 4:58 PM EDT Optic nerve swelling 09/13/2019 08:58:34 PM EDT Optic nerve [facility] Optic nerve swelling SPINAL PUNCTURE LUMBAR DIAGNOSTIC WI DIAGNOSTIC LUMBAR SPINAL P UNCTURE Routine 09/07/2019 4:40 PM EDT IIH (idiopathic intracranial hypertension) 09/07/2019 08:40: 59 PM EDT IIH (idiopathic intracranial hypertension) [facility] IIH (idiopathic intracranial hypertensio n) CELL COUNT, CSF CELL COUNT, CSF Routine 09/07/2019 2:53 PM EDT 09/07/2019 06:53:00 PM EDT [facility] CSF PATHOGEN PANEL CSF PATHOGEN PANEL Routine 09/07/2019 2:53 PM E DT 09/07/2019 06:53:00 PM EDT [facility] PROTEIN TOTAL XCPT REFRACTOMETRY OTH SRC PROTEIN, CSF Routin e 09/07/2019 2:53 PM EDT 09/07/2019 06:53:[address] [facility] GLUCOSE BODY FLUID OTHER THAN BLOOD GLUCOSE, CSF Routine 09/07/2019 2:53 PM EDT 09/07/2019 06:53:[address] [facility] CT ORBIT SELLA/POST FOSSA/EAR W/O CONTRAST MATRL CT O RBIT SELLA EAR WITHOUT CONTRAST [id number] Routine 09/06/2019 7:19 PM EDT 09/06/2019 11:19:32 PM EDT [facility] MRA HEAD W/O &W/CONTRAST MATERIAL MR VENOGRAM HEAD WI TH AND WITHOUT CONTRAST [id number] Routine 09/06/2019 6:30 PM EDT 09/06/2019 10:30 :00 PM EDT [facility] MRI BRAIN BRAIN STEM W/O &W/CONTRAST MATERIAL MR BRAI N WITH AND WITHOUT CONTRAST [id number] Routine 09/06/2019 6:30 PM EDT 09/06/2019 10:30:00 PM EDT [facility] MRI ORBIT FACE & NCK W/O &W/CONTRAST MATRL MR ORBIT W ITH AND WITHOUT CONTRAST [id number] Routine 09/06/2019 6:30 PM EDT [facility] 09/06/2019 10:30:00 PM EDT W[facility] Worsening vision US EYE B SCAN US EYE B SCAN Routine 09/06/2019 3:04 PM EDT 09/06/2019 07:04:27 PM EDT [facility] THROMBOPLASTIN TIME PARTIAL PLASMA/WHOLE BLOOD PARTIA L THROMBOPLASTIN TIME (PTT) STAT 09/05/2019 9:11 PM EDT 09/06/2019 01:11 :00 AM [facility] PROTHROMBIN TIME PROTIME INR STAT 09/05/2019 9:11 PM EDT 09/06/2019 01:11:00 AM [facility] THROMBOPLASTIN TIME PARTIAL PLASMA/WHOLE BLOOD PARTIA L THROMBOPLASTIN TIME (PTT) STAT 09/05/2019 7:56 PM EDT 09/05/2019 [facility]56 [facility] 09/05/2019 7:56 PM EDT 09/05/2019 11:56:00 PM [facility] BLOOD COUNT COMPLETE AUTO&AUTO DIFRNTL WBC COUNT CBC AND DIFFER ENTIAL STAT 09/05/2019 7:56 PM EDT 09/05/2019 11:56:00 PM [facility] BASIC METABOLIC PANEL CALCIUM TOTAL BASIC METABOLIC PANEL STAT 09/05/2019 7:56 PM EDT 09/05/2019 11:56:[address] [facility] [id number]"Psychotherapy 0 12:00:00 AM EDT - 09/02/2019 12:00:00 AM EDT [facility] ([facility]) [id number]"Psychotherapy 09/02/2019 12:00:00 AM EDT [facility] ([facility]) MHC Telemed E/M Lvl 3--Est pt 08/25/2019 12:00:00 AM EDT - 08/25/2019 12:00:00 AM EDT [facility] ([facility]) MHC Telemed E/M Lvl 3--Est pt 08/25/2019 12:00:00 AM E DT [facility] ([facility]) TEMPMHCTelemed 30" Psychotherapy 020 12:00:00 AM EDT - 08/18/2019 12:00:00 AM EDT [facility] ([facility]) TEMPMHCTelemed 30" Psychotherapy 08/18/2019 12:00:00 A M EDT [facility] ([facility]) TEMPMHCTelemed 30" Psychotherapy 020 12:00:00 AM EDT - 08/04/2019 12:00:00 AM EDT [facility] ([facility]) TEMPMHCTelemed 30" Psychotherapy 08/04/2019 12:00:00 A M EDT [facility] ([facility]) MHC Telemed E/M Lvl 3--Est pt 07/28/2019 12:00:00 AM EDT - 07/28/2019 12:00:00 AM EDT [facility] ([facility]) MHC Telemed E/M Lvl 3--Est pt 07/28/2019 12:00:00 AM E DT [facility] ([facility]) [id number]"Psychotherapy 0 12:00:00 AM EDT - 07/06/2019 12:00:00 AM EDT [facility] ([facility]) [id number]"Psychotherapy 07/06/2019 12:00:00 AM EDT [facility] ([facility]) PHYSICIAN TELEPHONE EVALUATION 5-10 MIN 07/01/2019 12: 00:00 AM EDT eCW1 ([facility]) INCISION & DRAINAGE ABSCESS SIMPLE/SINGLE 07/01/2019 1 2:00:00 AM EDT [facility] ([facility]) MHC Telemed E/M Lvl 2--Est pt 06/23/2019 12:00:00 AM EDT - 06/23/2019 12:00:00 AM EDT [facility] ([facility]) MHC Telemed E/M Lvl 2--Est pt 06/23/2019 12:00:00 AM E DT [facility] ([facility]) TEMPMHCTelemed 30" Psychotherapy 020 12:00:00 AM EDT - 06/17/2019 12:00:00 AM EDT [facility] ([facility]) TEMPMHCTelemed 30" Psychotherapy 06/17/2019 12:00:00 A M EDT [facility] ([facility]) LAB RESULTS (OUTSIDE/HISTORICAL) LAB RESULTS (OUTSIDE/HISTORICA L) Routine 06/09/2019 06/09/2019 12:00:00 AM EDT [facility] Brief Individual Psychotherapy - 30 min 06/02/2019 12:00:00 AM EDT - 06/02/2019 12:00:00 AM EDT [facility] ([facility] Brief Individual Psychotherapy - 30 min 06/02/2019 12: 00:00 AM EDT [facility] ([facility]) OFFICE OUTPATIENT VISIT 10 MINUTES 05/24 12:00:00 AM EST - 05/25/2019 12:00:00 AM EST [facility] ([facility]) OFFICE OUTPATIENT VISIT 10 MINUTES 05/25/2019 12:00:00 AM EST [facility] ([facility]) NO CHARGE VISIT 05/18/2019 12:00:00 AM EST eCW1 ([facility]) ANESTHESIA INTUBATION ANESTHESIA INTUBATION Routine 05/17/2019 8 :47 AM EST 05/17/2019 01:47:13 PM EST [facility] MASTECTOMY,PARTIAL (LUMPECTOMY,TYLECTOMY,QUADRANTECTOM Y,SEGMENTECTOMY) MASTECTOMY,PARTIAL (LUMPECTOMY,TYLECTOMY,QUADRANTECTOMY,SEGMENTECTOMY) 05/17/2019 8:11 AM EST Malignant neoplasm of right breast in female, estrogen receptor positive, unspecified site of breast 05/17/2019 01:11:00 PM EST - 05/17/2019 03:29:00 PM EST Malignant neoplasm of right breast in male, estrogen receptor positive, unspecified site of breast [facility] Malignant neoplasm of right breast in male, estrogen receptor positive, unspecified site of breast INJ RADIOACTIVE TRACER FOR ID OF SENTINEL NODE NM INJ ECTION RADIOACTIVE TRACER - SENTINAL NODE Routine 05/17/2019 7:37 AM EST Malignant neoplasm of right breast in female, estrogen receptor positive, unspecified site of breast 05/17/2019 12:37:32 PM EST Malign ant neoplasm of right breast in female, estrogen receptor positive, unspecified site of breast [facility] Malignant neoplasm of right breast in male, estrogen receptor positive, unspecified site of breast LEVEL I SURG PATHOLOGY GROSS EXAMINATION ONLY SURGICA L PATHOLOGY EXAM ([facility] ONLY) Routine 05/17/2019 12:00 AM EST 05/17/2019 05:00:00 AM EST [facility] LAB RESULTS (OUTSIDE/HISTORICAL) LAB RESULTS (OUTSIDE/HISTORICA L) Routine 05/17/2019 05/17/2019 12:00:00 AM [facility] LAB RESULTS (OUTSIDE/HISTORICAL) LAB RESULTS (OUTSIDE/HISTORICA L) Routine 05/17/2019 05/17/2019 12:00:00 AM [facility] SURGICAL PATHOLOGY CONSULT SURGICAL PATHOLOGY CONSULT Routine 05/12/2019 12:00 AM EST 05/12/2019 05:00:00 AM [facility] Extended Individual Psychotherapy - 45 min 05/06/2019 12:00:00 AM EST - 05/06/2019 12:00:00 AM EST [facility] ([facility]) Extended Individual Psychotherapy - 45 min 0 12:00:00 AM EST [facility] ([facility]) OFFICE OUTPATIENT VISIT 10 MINUTES 04/21 12:00:00 AM EST - 04/21/2019 12:00:00 AM EST [facility] ([facility]) OFFICE OUTPATIENT VISIT 10 MINUTES 04/21/2019 12:00:00 AM EST [facility] ([facility]) Extended Individual Psychotherapy - 45 min 04/20/2019 12:00:00 AM EST - 04/20/2019 12:00:00 AM EST [facility] ([facility]) Extended Individual Psychotherapy - 45 min 0 12:00:00 AM EST [facility] ([facility]) URINE-NO MICRO 04/14/2019 12:00:00 AM EST eCW1 ([facility]) Extended Individual Psychotherapy - 45 min 04/01/2019 12:00:00 AM EST - 04/01/2019 12:00:00 AM EST [facility] ([facility]) Extended Individual Psychotherapy - 45 min 0 12:00:00 AM EST [facility] ([facility]) OFFICE OUTPATIENT VISIT 10 MINUTES 03/31 12:00:00 AM EST - 03/31/2019 12:00:00 AM EST [facility] ([facility]) OFFICE OUTPATIENT VISIT 10 MINUTES 03/31/2019 12:00:00 AM EST [facility] ([facility]) Extended Individual Psychotherapy - 45 min 03/22/2019 12:00:00 AM EST - 03/22/2019 12:00:00 AM EST [facility] ([facility]) Extended Individual Psychotherapy - 45 min 9 12:00:00 AM EST [facility] ([facility]) Extended Individual Psychotherapy - 45 min 02/22/2019 12:00:00 AM EST - 02/22/2019 12:00:00 AM EST [facility] ([facility]) Extended Individual Psychotherapy - 45 min 9 12:00:00 AM EST [facility] ([facility]) RIV4 VACC RECOMBINANT DNA IM 02/14/2019 12:00:00 AM ES T eCW1 ([facility]) IMMUNIZATION ADMIN 02/14/2019 12:00:00 AM EST eCW1 ([facility]) Results ID Date Data Source [id number] 03/14/2020 08:45:00 AM EST [facility] ([facility] ) Name Value Range Interpretation Code Description Data Jerica rce(s) Supporting Document(s) Glucose, Fasting 92 mg/dL 70-100 [facility] ([facility], ) Creatinine For GFR 1.22 mg/dL 0.55-1.30 [facility] ([facility], ) Blood Urea Nitrogen 17 mg/dL 7-18 [facility] ([facility], ) Sodium Level 138 meq/L 136-145 [facility] ([facility] ) Glomerular Filtration Rate 51.7 MED ENT ([facility], ) <content>Units are mL/min/1.73 m2</content>
<content></content>
<content>Chronic Kidney Disease Staging per NKF:</content>
<content></content>
<content>Stage I & II GFR >=60 Normal to Mildly Decreased</content>
<content>Stage III GFR 30- 59 Moderately Decreased</content>
<content>Stage IV GFR 15-29 Severely Decreased</content>
<content>Stage V GFR <15 Very Little GFR Left</content>
<content>ESRD GFR <15 on LINE CLEANER</content>
<content></content> Potassium Serum 3.3 meq/L 3.5-5.1 [facility] ([facility], ) Chloride Level 108 meq/L 98-107 [facility] ([facility]) Carbon Dioxide Level 23 meq/L 21-32 [facility] ([facility]) Anion Gap 7 meq/L 8-16 [facility] ([facility]) Ast/Sgot 13 U/L 7-37 [facility] ([facility]) Alt/SGPT 21 U/L 12-78 [facility] ([facility]) Calcium Level 9.3 mg/dL 8.5-10.1 [facility] ([facility]) Bilirubin,Total 0.8 mg/dL 0.2-1.0 [facility] ([facility]) Alkaline Phosphatase 108 U/L 45-117 [facility] ([facility] [facility]) Total Protein 7.3 GM/DL 6.4-8.2 [facility] ([facility], ) Albumin/Globulin Ratio 1.3 1.2-2.2 [facility] ([facility]) Albumin 4.1 GM/DL 3.2-5.2 [facility] ([facility]) ID Date Data Source [id number] 03/14/2020 08:45:00 AM EST [facility] ([facility]) Name Value Range Interpretation Code Description Data Jerica rce(s) Supporting Document(s) White Blood Count 5.9 10 4.0-10.0 [facility] ([facility], ) Hemoglobin 12.2 g/dL 12.0-15.5 [facility] ([facility]) Hematocrit 38.7 % 36.0-47.0 [facility] ([facility]) Red Blood Count 4.36 10 4.00-5.40 [facility] ([facility]) Mean Corpuscular Volume 88.8 fl 80.0-96.0 M EDENT ([facility]) Mean Corpuscular HGB Conc 31.5 g/dL 32.0-36.5 [facility] ([facility]) Mean Corpuscular Hemoglobin 28.0 pg 27.0-33.0 [facility] ([facility]) Red Cell Distribution Width 15.3 % 11.5-14.5 [facility] Neutrophils % 71.4 % 36.0-66.0 [facility] ([facility]) Platelet Count, Automated 288 10 150-450 [facility] ([facility]) Eos % 5.1 % 0.0-3.0 [facility] ([facility], ) [place] % 9.1 % 0.0-5.0 [facility] ([facility]) Lymph % 12.2 % 24.0-44.0 [facility] ([facility]) Nucleated Red Blood Cell % 0.0 % 0-0 MED ENT ([facility]) Immature Granulocyte % 1.4 % 0-3.0 [facility] ([facility]) Baso % 0.8 % 0.0-1.0 [facility] ([facility]) Lymph # 0.7 10 1.5-5.0 [facility] ([facility]) [place] # 0.5 10 0.0-0.8 [facility] ([facility]) Neutrophils # 4.2 10 1.5-8.5 [facility] ([facility], ) Baso # 0.1 10 0.0-0.2 [facility] ([facility]) Eos # 0.3 10 0.0-0.5 [facility] ([facility]) ID Date Data Source [id number] 02/08/2020 04:26:46 PM [facility] Name Value Range Interpretation Code Description Data Jerica rce(s) Supporting Document(s) Progress Note [facility] JUVTFi1rTaKWBkSd33/LSXdiBOBbc7McKLwiWJx0RTlaFBApL5TxWTE4xZ5zQIQ2RXaKCnZvAxNzLIU2 [facility] [file] ICAgICAgICAgICAgICAgICAgICAgICAgICAgICAgIC AgICAgICAgICAgICAgICAgICAgICAgICAgICAgDQogICAgICAgICAgICAgICAgICAgICAgICAgICAgIC AgICAgICAgICAgICAgICAgICAgICAgICAgICAgICAgICAgICAgICAgICAgICAgICAgICAgICAgICAgIC AgICAgICAgICAgDQogICAgICAgICAgICAgICAgICAg ICAgICAgICAgICAgICAgICAgICAgICAgICAgICAgICAgICAgICAgICAgICAgICAgICAgICAgICAgICAg ICAgICAgICAgICAgICAgICAgICAgDQogICAgICAgICAgICAgICAgICAgICAgICAgICAgICAgICAgICAg ICAgICAgICAgICAgICAgICAgICAgICAgICAgICAgIC AgICAgICAgICAgICAgICAgICAgICAgICAgICAgICAgDQogICAgICAgICAgICAgICAgICAgICAgICAgIC AgICAgICAgICAgICAgICAgICAgICAgICAgICAgICAgICAgICAgICAgICAgICAgICAgICAgICAgICAgIC AgICAgICAgICAgICAgDQogICAgICAgICAgICAgICAg ICAgICAgICAgICAgICAgICAgICAgICAgICAgICAgICAgICAgICAgICAgICAgICAgICAgICAgICAgICAg ICAgICAgICAgICAgICAgICAgICAgICAgDQogICAgICAgICAgICAgICAgICAgICAgICAgICAgICAgICAg ICAgICAgICAgICAgICAgICAgICAgICAgICAgICAgIC AgICAgICAgICAgICAgICAgICAgICAgICAgICAgICAgICAgDQogICAgICAgICAgICAgICAgICAgICAgIC AgICAgICAgICAgICAgICAgICAgICAgICAgICAgICAgICAgICAgICAgICAgICAgICAgICAgICAgICAgIC AgICAgICAgICAgICAgICAgDQogICAgICAgICAgICAg ICAgICAgICAgICAgICAgICAgICAgICAgICAgICAgICAgICAgICAgICAgICAgICAgICAgICAgICAgICAg ICAgICAgICAgICAgICAgICAgICAgICAgICAgDQogICAgICAgICAgICAgICAgICAgICAgICAgICAgICAg ICAgICAgICAgICAgICAgICAgICAgICAgICAgICAgIC OqSZQsDTXrZCFxLGIlYIZdVNZkBANfTQBuYTHyEBFrDOJzAPFnSTg2V9ppMVJrILAfSH8cLCa4Wq4+DQ iMAgTsVJH5ynPviC1WBW9bp4PyDNrzLSNgo8XhKEj8QW4MQYTqTWrpAN2ILVbazd3VUIRvVPEmkQKRo2 unVkQtQSQ8FAKjOudyUH3IFLBwF6cgaeRjFELlDIIJ QZlnJJIGOO4ZBnEuM8IwnF37ISYPKd3+AYwkekQbNatACeWxGQKdz4AiECf0AN3VOSUcBsdfa3HgDfCq SIOOHOnkGD3YOJO4YHAzMOUgOl4QLMCrW644hfEjET1EDf2FLgRlNG9xmn9QLjFnESQtQrbVNbc2CDpi SB3RdQSvMWvBot2dgyWfeeCWm1EhfbOqqRNCJBNdML XTBBJqB1voLK6MENO6ZTnuGD2fLOVqUWPeElX9EUXPWF7BSDHdVMBnpCGcTFXyYSMOYD0DFQwcTZU0WG TamkDepYXvUVmhKP7TDPWxlxCoCtMfITCPCTf+Au1MWK4uv2HrIJvlBaDjMH3rex2DMPdFHsDsG2Y5bC GdW8X5YHlnHn1BCBHoBFJlHXbpUIMIZJzvGH7LZB1p wdX0FW0OsAGiUGXsSFJxwCCeQLe6Q15feGUeRLgnFR6VMAW+Magdiel+Dt0FJUTuIOPuCMGwMnAgCXVEXjIa C2GoF6CTh8XoZ3KpZL48sAvvkxZoYMthTQ0ZML8xEDZcIRAUUI3XiJNcpW0hfmRuRYBuPMJJPkItM32r sXMqVCNnGAQrSNSyOn7YXRArJ7EhzaKeiZnqpbAzHY JzEMAEXK0KLDxarjVncYDhiOnuWV97gBpcWQ7ZLt4KMmLrYZ2wcx6PgPEpMf4UVTGsNN8LZCKsLSWoIZ UaZUF0RFMbEjAaNXakXNFpKVClOLC8IKMjPHFrPF4RFxKjBGVlEsU7DeNlHQGzGMVjrz8HAADdDGUzVx U0ZTIrDWJjZJXrFAyxECVmQXAkAZK2IMGbLEMcWW0X CyKcELOeRYL7BcFyNNUjIPZncm1WLCSjXRDxVUNjItBvDLFcUGFnJAzlOAJwRYF4TxB1MXQxAXBpYZ9V WjPoRAYdRDJ5ZaOhRFZbBHIctk1SGPJlXOTtLegnBsSzJBQzTSFpSPicVTRvMLG3DFL9UNIjVBNaOC1J PvObJYOrQOjeIUiiTDIwUVTjyf5CADXbJBXkMLZ9PE BeUGWtIRZzCYsmJELsHTN0WCCeBYCwQBZfOH5OOvTfRFTwWFa2QHptHCLiPSTgml3FETWlMXMsZNOcFd LrQCHuRDOkIKylQULdUMMvWrU4KFVoESUvJB7UWmMfBDXhKaL6VqlwRHGpSWBxtv3BDBUiPULcKSz2RD HdKTCoVCYeBUwnKQViLCFzTBX4RWUbMXZcGE4MCiPd YWIdBmXtTNAeWQWhLOAmtu3DCTOxVWQtRfe6IECsDVKeGXSnUMzpLWRbYYPqPVHwKNNqTPEnNI4ROvTj PILuXkN0UsPoSIJgJVGwgj7PjCUlsVfupq6DJEzYCu4IqCsjGXD7ISbmQq5bbSIfNtEiQERUPk5UruHe LTBgGWZTRKlkRVUuIAX3YdxwLwC5IxGkHSnxQGpcBs BqYsdnTbHcIZR7DWNqIbZ3AYKlQXJcNSn5HUA2XWX6IoQdRqBiXKInVRX5DpSiAHT+AB3dGYy+Pg0Kc3 OlabX8mdZxLCjaMwOnPK2JYVRLW5VCUt== ID Date Data Source [id number] 01/30/2020 02:41:46 PM [facility] Name Value Range Interpretation Code Description Data Jerica rce(s) Supporting Document(s) Progress Note [facility] HBZMJo4pFqDPFbFm89/USGgqVTCfd2RpEZpvQFo2IXkdIZDoK1NvEOA2fM7dBXJ4QBmSXwDjEdLuIZT2 lbm [file] EwWWPcGstdGAWkO2LyAFcvCqolEgR+SM0fVKj+Ba6Qb2CoqbJ6ojIsRVlwJNrqZW4OYBOXV2PJEl== ID Date Data Source [id number] 12/26/2019 02:24:08 PM EDT [facility] Name Value Range Interpretation Code Description Data Jerica rce(s) Supporting Document(s) Progress Note [facility] MYKZIl5xWeQLUrZl21/VUMqxXTTmw5VlCUebRXy8COrgTEXmT7ZcRPJ9mQ3yCAG9OYrXAjAnLvIlVEQ0 lbm [file] IUQln+/TpxLpxvZ7/2OJCU2lF+iMy5I5nQnFzgp7SZYk4di/regional vice president surgical sales+uSHZ2E7Go5+MZttUbjetnmETZtn7+ [file] AgICAgICAgICAgICAgICAgICAgICAgICAgICAgICAgICAgICAgICAgICAgICAgICAgICAgICAgICAgIC AgICAgICANCiAgICAgICAgICAgICAgICAgICAgICAg ICAgICAgICAgICAgICAgICAgICAgICAgICAgICAgICAgICAgICAgICAgICAgICAgICAgICAgICAgICAg ICAgICAgICAgICAgICAgICANCiAgICAgICAgICAgICAgICAgICAgICAgICAgICAgICAgICAgICAgICAg ICAgICAgICAgICAgICAgICAgICAgICAgICAgICAgIC AgICAgICAgICAgICAgICAgICAgICAgICAgICANCiAgICAgICAgICAgICAgICAgICAgICAgICAgICAgIC AgICAgICAgICAgICAgICAgICAgICAgICAgICAgICAgICAgICAgICAgICAgICAgICAgICAgICAgICAgIC AgICAgICAgICANCiAgICAgICAgICAgICAgICAgICAg ICAgICAgICAgICAgICAgICAgICAgICAgICAgICAgICAgICAgICAgICAgICAgICAgICAgICAgICAgICAg ICAgICAgICAgICAgICAgICAgICANCiAgICAgICAgICAgICAgICAgICAgICAgICAgICAgICAgICAgICAg ICAgICAgICAgICAgICAgICAgICAgICAgICAgICAgIC AgICAgICAgICAgICAgICAgICAgICAgICAgICAgICANCiAgICAgICAgICAgICAgICAgICAgICAgICAgIC AgICAgICAgICAgICAgICAgICAgICAgICAgICAgICAgICAgICAgICAgICAgICAgICAgICAgICAgICAgIC AgICAgICAgICAgICANCiAgICAgICAgICAgICAgICAg ICAgICAgICAgICAgICAgICAgICAgICAgICAgICAgICAgICAgICAgICAgICAgICAgICAgICAgICAgICAg ICAgICAgICAgICAgICAgICAgICAgICANCiAgICAgICAgICAgICAgICAgICAgICAgICAgICAgICAgICAg ICAgICAgICAgICAgICAgICAgICAgICAgICAgICAgIC AgICAgICAgICAgICAgICAgICAgICAgICAgICAgICAgICANCiAgICAgICAgICAgICAgICAgICAgICAgIC AgICAgICAgICAgICAgICAgICAgICAgICAgICAgICAgICAgICAgICAgICAgICAgICAgICAgICAgICAgIC AgICAgICAgICAgICAgICANCjw/hPSvA0sdvYNsheH9 G0wzFg2RRx9GOE8gj2WrBBGnKJgpwoHgKtwRQkTaIPPaZyyLXae1NKezQQ8CyKFoN9NjM8WrFMhfBX8F IHZdANRfmTVlECCvMGJfFuJ4EQAhCZnpZU0JzOHbANkfRDNnBEOcMkAtQSUeUB8VXYBpO258utPnCt4O Uf9XTyIjSN8twk8VYhHdLTKsZvkHDtz2RCrxGG8ZpY NniWVtJkUfPEQVFcMuB3rlg1NqCjKlOGTUJKofIA3Cs2DkrGJzHSx+Ej4QFV4gh3YvPMskElYpMA5leu 8FUEfPQzEdB0RiuRwqNVCcy1pmWUPvNL8ayBBdSOU8TMPplqLtG4ryyZsvutrtSTYfFMUoHZAgXM7fMU JrMWBmMyMyFKJEJX7HTCNvBUQkwZGxHIVkGSXGIZ4J VEquYKH6JZEzpcLhnTCyPPosEH7EJFMijmFkSlUyKTYFABv+Jl4RPJ4qi0ZnFWlqPyBhSX7cab9PCPdL FuAnN5L7kXXzD8U2NUmyHa8QEZAiDGYiZYscLDEKDPznLH1EWV4qulW5AD3JjOIkUUGeDDViuDAnKQp9 P82tpFYmWWcrWO9NQTC+Magdiel+Nv3RJTMqCLPyZUElVe TmBPIZDlPxR7QtY5KUd9QaX6JmHY86nGqeyqHtIVioKV3SNW9hABGpDYNIJU1TfHXtiV4wccVnSGAjMJ WERzQaX91vvZOjRCQzPKWqPPQsHr7WZIGjK5OknqSpmDwospAjFQQjOLLOXE2CPSqtdfPxuUGqzOxvXK 75dVugRR2FOc6LNdRuGE2cov9JjCKjBg0IXZLuYU8B XEImZNRwCSFsRZU7KOCaNeClCVdiDFWsPQDnIGM4UZQhZJAgWN6VLlLcRZNvArEmIxPnSDCmDZCpec4N RYIdVZGhFua5WtFbRHPxPHLyXJvnRKBfNNIbLDF3OUKdSRZeCJ9YWbXjQBRmKSBqAMMeCLCuFRAllp4T GURmNSLiAFG9TNAdDPNjPWVaPNxoJASoCJP7YQZ0RW CbQGSgGA5FQtKkDAFhXWJlPhKjDSIfMOOvav7WXFPyNFYfFwJsNYAbZNWvDHPjOYaoBGJtEGH2YgB9FS SaUBMoME9GRjBpEFSlAQyvFGumQZErWVKmna3YXXYwQHHrAKZ1SgLzNNSdUWPeMPtyMYPlBEG1OXA8NY CgJMOlDL8WVpTzPVPoXGr4XQGwSLHmNYMxvm0KTPWy YTHfWGWfXOAbFTIdAEKmJHsgJLPvDHGnSCJ8AFApOBEgXG0YThQdOOKpFeE2RnLoSAZzDMBccu6ZCATm ZLWoYOu9WmZqQPKjBLQxJPvpYAUfFZJtKJGfZXSsTJAmOB5XTtCcSNJxIvI3XHIoMLDmWHKtsx2IBGAl ZWWzWeu4QsTgJNIvKUGxOLviIXAcEESvQIE8AYPbWM JrPA1BSvAeKGYeTqGkLfAqCHZyMANlln7McDRqtLyjzq4EZAeEOw3ElVirNAO3QXxoCz3oeGMjImMkGL MFBm5JkjDiMVNrVMJXNRpxZDXuJLT5LnR7JUWbQJg2IrGiXyO6RbLtNqw9YIEtKtR3RHB0DzH2RAwyKM v8TBI3OLFbADOwQGMwTtClLIrpDIJsZrB0IKc+IF0g DQo+Xn1Cg9WupfK9arOwHZanSmVtHX3SBFHHA3TGHu== ID Date Data Source [id number] 11/23/2019 01:31:05 PM EDT [facility] Name Value Range Interpretation Code Description Data Jerica rce(s) Supporting Document(s) Progress Note [facility] ZXEPIs7cXwACUcCh83/JKIqsYJDit8LlSTpkMUs9UVrxBEZeF2RhKZH8dD1mOQC7QDxAYmKmKoRjBOPb lbm [file] G3/LRUWiJhz8k9vs6l3zLSNbyJVxnKt/jBJszBr/Maria Antonia [file] kvSRDpQE6DNCUDI9RKQh== ID Date Data Source [id number] 11/09/2019 01:51:16 PM EDT [facility] Name Value Range Interpretation Code Description Data Jerica rce(s) Supporting Document(s) Progress Note [facility] ZHIEZc7iBqDGEsTe84/UCNysNHBtc6GpYCceGVf4MImoIYCcJ6GcURR7hM5dLXA4OLoRGwNtOgNoJXI0 lbm [file] AgICAgICAgICAgICAgICAgICAgICAgICAgICAgICAgICAgICAgICAgICAgICAgICAgICAgICAgICAgIC AgICAgICAgICAgICAgICAgICAgICAgICAgICAgICAg DK3ZLQMuYHRoQBCzGIFuPGOnFIWiSBQlRTRkUPFpTHPpAAXlANOxVIRgGCOyXMNfSTYuNLOxMAWsCRQd KNKrISOhDQFiVAUkWZMaZXFtTEGqQNGxMGFjSRLsTVHyNOTpYWWtVOAnIV4FNYCoNSXiNFAoVESyRVRp ICAgICAgICAgICAgICAgICAgICAgICAgICAgICAgIC DtNBYrPKLfHHIfDPIpFCWcQLJsHKGlYQFvWXXoXPBcLTIhWUNjLSUoEIBkTPEaIDRjSYKvHM6WYVOlQR AgICAgICAgICAgICAgICAgICAgICAgICAgICAgICAgICAgICAgICAgICAgICAgICAgICAgICAgICAgIC AgICAgICAgICAgICAgICAgICAgICAgICAgICAgICAg NVGlLV7EKJYqKNWfCMBsFUZrSEFsXSGeJCLnSAMvCBVhYZZfANCrAPFhGENkPWOgVYYdTHXlZSRvFHHw NNVmSXWiYSIcNBUfRWTmCKBpTCGuDGXxAKLdWLLuWQCeUFSbURLsNCVqWUFkWK5FMGGiHFEcCVAqSMDe ICAgICAgICAgICAgICAgICAgICAgICAgICAgICAgIC NsQXDiXJDfCMYdCBJuRDUsASYfSMHhGGIdVQJyRPJhDPVuWIBcYBDuKITaZGJbWYBuJJFdRPHfXE1ILJ AgICAgICAgICAgICAgICAgICAgICAgICAgICAgICAgICAgICAgICAgICAgICAgICAgICAgICAgICAgIC AgICAgICAgICAgICAgICAgICAgICAgICAgICAgICAg VKHpFJFzSB3YZDAuZIByZRDmXRCrUSPkGWGxSKIwAFEvRPLnDYTzCFYkBRYpBMPwRNVsIJTuETVgCZWx JLCcCALkIPNhZRGyMVTvWCTvVZKkLPMxKKCsRJPkUACsKDCdUBSqOKVoOUQiIOUsWX0OCMToZSSzTFJj ICAgICAgICAgICAgICAgICAgICAgICAgICAgICAgIC AgICAgICAgICAgICAgICAgICAgICAgICAgICAgICAgICAgICAgICAgICAgICAgICAgICAgICAgICAgIA 0KICAgICAgICAgICAgICAgICAgICAgICAgICAgICAgICAgICAgICAgICAgICAgICAgICAgICAgICAgIC AgICAgICAgICAgICAgICAgICAgICAgICAgICAgICAg RWChMIDeEJPkJS0LIB87eHWks2Q1OTPsZW7qcij/Xz2RZSudnmJbsXCiSD7RJdGhIZ2yml7VUzBeNG7f jc2VKKiBEqFtK7Y1hMIsZRDzJBKYMvPvP24vRJyxQe15OLixZOUjMbYsVWu0La1PRaLxK7zcXORkDrP6 VMDhEvY1DQFoXsRrAKPyFRZsHBGsCAFPTM6WEeAeT7 KltT52EFROGf0+XDdqodFiVozHByF5UWEdh9XfWAm4AK9HSSKxFhqfs9WhRkHxGIZJDLhnON3FLKR4PH NiWBAbCt9XPVZbS625eaMvTS5MYt0XViMzXV2zyh2PXcAlUBPoJknKJpv8HStnWA8CnGZvIPlGyf7dix DlkgESr8EzsiJxdUKEzw3hUMJpPTJfdn7hXA9BIXB5 VUcaKNekQrMlBDOhNPclBMOZUDlFEwAkU3Bah0UnVkA1BXWfEcDgNTfkTJWwOlE6TE86yBfsTT7MWYCh HEIzCI31LRY0SXTqAq6BAf1KRfIoEU3hwm0TFrNwNW9rzn9KGSoLBdQjJ2S3bAMjW0Ukzg26ZF0JaJV5 jWBcKA3YvZ7sGS2Cv1BwBJCgJiQzBJBwRMDtYQSnTX MdGyAfQH7VWYPsHcOlqSYsZOKjJUD4UMRnLiL6QHVuYF3FJOXrDHL0WX6JYR6KKqxrF3SKFGoarSviZe VQSUM/WYMMKYRYMNgzOHMxB62CY4JVTTuUEwqeFFdHPtikDa4gTDa+Jx1ZCR8in4WgQMleHOCyYM4eod 5BXMxSTvAaX6V4aNVjW8W6MFzeGd5KDHMvUDDiVohh NYFHYFcfPN8EIE7dvpV9BK1CuWTtYICkSPYzfVXmTJe4O25reLSpPUlxTZ2IMGJ+Magdiel+Nf1URJVwJMLd PXCpIfHyLHUMJeMbW7TgB0BXk7UzK5LlRU05tRkosyAqSBlxPL8LGL2eQUEgLBHJQD1ByIVugO5okgKv FNKrIRNLTgGxI83dbHRnAOFoDDZ7GDDoYw8AGFTzP0 ZqhvBonCcaqiUxGSPxVRIMXB8NYNlbpiDpdRDtgXqlYC06wMmlMB5EEv2TSrJaQL5wsc1IhORdGw6LSO XgGj6FSZWiHPHcPBAiDWG5ZHZuTqXdFUebSXMnSKQgUAA6VSZjGKWhKZ8VLcFgWTSgFlj9CCccNOJpOH Xmbb4AYYUmUIApYKD1OxRdXJTvBDYmVCosPGIxJFUj LTY3GUCtQKZjFD4VMhDmFJZbWCL2NvwhDWNnQEIdgl4GFVFuVOXmIQQ6XVUnOKOlMEOuQZbjCHEkZJJd KqX2CTPrPQYrLR9EYlDnJDUwJNE6UZVlJHElEJNukg4VWOSgKFQsWwF5CRVoJIFkOSLpLLytYSOjHQNc DWq2YFRtWJYuPN0OPtIiOGUkORIzHASrWGYsPSJqrr 7FTVIpRSAbPOeqNCUgARHsNPGyARnsUOOhWLWyCMZ2LMQhWFBaDL2BJuFgQZSfJRQ9UASuOPUbJGNtiz 0VREBkRSLrYkX2TwZlVNVvFZLxPWbiKSQvQBFqZiA6OTUxYNBsBO5GWyRbVWWoHSTdNsEwKNTmJDVqmd 2YCOCbXIVtZlUpQsZuTRPzAGKfJVfuURSvTCBcDkS8 SMYtPAPqLJ8MPqJdNDYwLiNdWPVtZKJzJAMzeb4FNXDkCHRxQAY8USEnYVStDCIqJBzgZDAsUGI2Plc4 KRXgGIPxYN8RVcNtAQSzUoR6PedxQLEpOHHedt7FRUWkURDqNcR6PBBmCZGaZNUjARmfZCXhEIS5EBP4 SWMoYTEqVS5LZaNwJLEfCtlaRDnxDPAcBPBhva9KGE HpZBLxVeK6MNMtBPQkAVYzIPgtLBMjSCC1JZDoKPInEHNxEC2BLqDeDHSoUogyOrIzNWYeUHRman6WXH JcXQVeVWKyVSXbOAYrCOGgLCrgCMLoEBM7UuP2GXYxRGHmLD1YGbMuEOezPCDRCtg2ALdxM3p9WNWmMi 6ZZ8Ung3HyCtMhIYBBXKwdDP8wbiTaUADwVw3YL0wK Rze8FWTzL6L4GZx0OXAiLTagBSAyH8YyFsNbYMImHWXmVc7oHKF1EyS5NPT6ISsoMJG3WIPmFSMtI8Tv CxYoLBAxVJP4PpPrJH6QVn8HYpG5BHJ7lFSkWu6AAhq3SYgBIiXhEP6XCEv= ID Date Data Source [id number] 10/28/2019 09:45:13 AM EDT [facility] Name Value Range Interpretation Code Description Data Jerica rce(s) Supporting Document(s) Progress Note [facility] JYJNVp3sMiJDCqXp56/FMSkjUEAoa1IbQWnmEOc6JQarPAEfB9JlDKS9aD1wJIA8TWmBFhHnOfHtKME1 lbm [file] bNzS2fDhD+HZvkp8S97rk95517bjk57ZDfcYays+Velásquez [file] QA4KIq0WYlD4EDE3oAIePx6LBgRyIYXHIuYtDU8UZMj= ID Date Data Source [id number] 10/28/2019 09:43:33 AM EDT [facility] Name Value Range Interpretation Code Description Data Jerica rce(s) Supporting Document(s) Progress Note [facility] YCAFMn1tLzPPQbBw13/YRCpwTQPkg0JfEZufYRe5TJkyNYEiB0QlWKZ6eO4zUXO6FXyVFhBdXvYqNXS3 lbm [file] zMJmf3XVU+basting puller+58JM8Gwho4JsmZSb4qn0BjqUhd79u LNGn9gOB4fh5CtgVA9e+yKfZZV7ScvNoCwMkYStl1aTKpAx1iArkAycBLcEi2uVxRvCfsWRPm43VRfby ll7a9kJsO0FZXz95qFwvbj4TciTu3PRVOsY9VLQF+IVetrdU1buxK33/Winifred/J6WyvPfVp4XK0uo31dqAo [file] x6xp8QrPyUYXKMk/YclXOX+EvZHAwcVWLoA/kl9EH0FmGizX2/EVJ+IRON MINER/xH6+QtSUweUEd/VsMLAoiop /MQwJErJL98kjmkESPYRN7oJ7PAxCaTdCfw1FRI64tCXpKy6b7+WM4i8gfyyEJqCF1iSR3L67CHpwdwy zg03dETEcjCnSlWa/GiZs+pyU4h3HLqYHI3iSRI2OQ IrNyUje72J+jm2V0qFeP5/fnrU0GEQLZQrDMjmQuSZsjvbxdRlzZtwtaRf4YRsZohPDKe+o5yluQcz6N iCG4vbok97NeeY8piUXL9SCjUor6CiUKXkFf4lwRXn/+8OBzM7xHv4944fzjJJ2hMLldtBY0FKqJ8vzA 0sABEEfthHyeuGUV6qbme2S9pVSOiuayiaSMHb1ooV bArCSOyuHTnAltxOuEswKGr/fjcHTgqH/qP1eBH2EmdYCx8tnhNLNkrj0zSiM86paQn/PLdaxjHxxVk3 Q9cscbWTvZPrBkKMyVbzZ9JbeqgOmjWzVID6FtmqYFQYymtMfRp/7tRr8xPCyN6w4kIchXHooRa6T26d 4PT+xp1U0z1M24+Q+ZjaoXw02Cye99kr8vc1Q+RIKj mbtsaKVy0Nrl1ammVVw/phmOSQ5H7+D0BbBEXwD1PtAECxL33maBl16CDzemQSWB3twsuWjxtzMZ6qph 0wjWdz+e5AeogFx34s9ea/LjeToglfU1mmCFE7KAorHHYZH0t/jx1b4FKlDnh5EF/3Zg55vU8UVQGTOb bcC/DZbYr4Qpab/fWrisx51v6ujZgG1x/MrlZmdRMr 2o61HS5QCqrmVNMW1Km3CX7qoiFG7zjjdfjxbQcV9RMLaAQbwRLl5DcN85HqnN4E4Ar5haEo3TmgYPMO CXCQK/L0saiWuDfBHgS0WuHh74IAv43IUMrliQX6ZOHJL0GMwsW2b1YDu439Mo0pSyBLzw2vSTg+Sophia+ [file] c4rfNP0223/YN7fUB5Ecnf3XV8zrnUbUTPRxdKN/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+Pe2c0OpM6D+sWP8QCQf/hSot9fY7qnPX7Tfx1YYLdjeoo921FZv5OwuhSlOZsEJ3/rpbe2RfikEZ [file] Nghq235oAuXoGTVD/88QdS/otbo1F0Q7+Oa2PVHQmOuYRxECMjRSPzbxWjQu/VELÁSQUEZ+GWKXm4eifxCJVbII [file] hmEY[facility] [file] 8j+INSURANCE SALES ASSISTANT/Rg1prOfyJ0L43OFW9Z2AB7Hf1MbKZxGuz0q zI5ek1MpoD5pgbL1OhVmg5ZfLXa7eyHsRDcgkuAK4UHyJZ41QGqO/oOw9pclvtRm7cWjzuU74czmxj1O Blpt0NREAfk00q3+ew9r0sN8V3TBgOJz24tK+UFadm8rNl4EIpFn+wQ7NgkF+P6SCvF9aSnk9b9k3yLv FsIjsRdQQk8Vk7zTt4U9ftiwFp6Y9m7+f/FFVxq65x tliXRE0mEGwKn1OmwdzDQEkZSRsgkwztDwQEGVuRJgMeTTZF+bhxOm21/g1wx0r8PD/BFGMlqU9ky4zy cb4zt8KlH6ALt9HlRHO4Hju17ACcFX3Y71D97NmpY+1GOy54/E439pKJb3sd3EVIcQOsvWniJbzAcn+3 jHzdxEQs49sEdB5cubmdpu5epoffbcIVDStlQ1BtO3 JxsW/PqEb5N82hbPMCo194iRyepGry7fdGcy3mxliaXMr+rGSTmOEh/i9mcZC5gQ+GXP5GP/8GyhS4rl X1fs9tI67tQbe9rVoWZytqRWCLuD6eW3DQozWXQP2eMc1A3JILkbP9LPBm/b+Pk7pRU/Kh/NB6Mth3wX 15A8pwqiSfy815lVlZXt/y2FAFmpKr55d4s06TtkaO m8paSQyFJ843xhk0hifdJG531gEzz9gH3vktr2cM7nIDZSXGPTMUpePNWFLVXFZHkcLSJXSWICLIanNA CAAQMGDBgwYMCAAQMGDBgwYMCAAQMGDBgwYMCAAQMGDBgwYMCAAQMG/Wsl6HEV36264W4m8C/N6pzs8c [file] pUzKwKPsxKJhdvVj+1Iri+VELÁSQUEZ+3M9dxcVbgQT+sOKu/8LpUBfcbn8mGXCqsfr+QRQqu8lBW/bWhXlLg3Q [file] MGYrDnAXRGiwEjm2l8cJ6242J/+tAbm/UGxANZ [file] AgICAgICAgICAgICAgICAgICAgICAgICAgICAgICAg ICAgICAgICAgICAgICAgICAgICAgICAgICAgICANCiAgICAgICAgICAgICAgICAgICAgICAgICAgICAg ICAgICAgICAgICAgICAgICAgICAgICAgICAgICAgICAgICAgICAgICAgICAgICAgICAgICAgICAgICAg ICAgICAgICAgICANCiAgICAgICAgICAgICAgICAgIC AgICAgICAgICAgICAgICAgICAgICAgICAgICAgICAgICAgICAgICAgICAgICAgICAgICAgICAgICAgIC AgICAgICAgICAgICAgICAgICAgICANCiAgICAgICAgICAgICAgICAgICAgICAgICAgICAgICAgICAgIC AgICAgICAgICAgICAgICAgICAgICAgICAgICAgICAg ICAgICAgICAgICAgICAgICAgICAgICAgICAgICAgICANCiAgICAgICAgICAgICAgICAgICAgICAgICAg ICAgICAgICAgICAgICAgICAgICAgICAgICAgICAgICAgICAgICAgICAgICAgICAgICAgICAgICAgICAg ICAgICAgICAgICAgICANCiAgICAgICAgICAgICAgIC AgICAgICAgICAgICAgICAgICAgICAgICAgICAgICAgICAgICAgICAgICAgICAgICAgICAgICAgICAgIC AgICAgICAgICAgICAgICAgICAgICAgICANCiAgICAgICAgICAgICAgICAgICAgICAgICAgICAgICAgIC AgICAgICAgICAgICAgICAgICAgICAgICAgICAgICAg ICAgICAgICAgICAgICAgICAgICAgICAgICAgICAgICAgICANCiAgICAgICAgICAgICAgICAgICAgICAg ICAgICAgICAgICAgICAgICAgICAgICAgICAgICAgICAgICAgICAgICAgICAgICAgICAgICAgICAgICAg ICAgICAgICAgICAgICAgICANCiAgICAgICAgICAgIC AgICAgICAgICAgICAgICAgICAgICAgICAgICAgICAgICAgICAgICAgICAgICAgICAgICAgICAgICAgIC AgICAgICAgICAgICAgICAgICAgICAgICAgICANCiAgICAgICAgICAgICAgICAgICAgICAgICAgICAgIC AgICAgICAgICAgICAgICAgICAgICAgICAgICAgICAg ICAgICAgICAgICAgICAgICAgICAgICAgICAgICAgICAgICAgICANCjw/yUTrT3uwlQFthjQ0M0hoAh0G Wd2YDS2ay6GsOYDcQUbkvxQuKlxHLwHqFDGhUoqKAvh0HJolUT5VeLWxE2AeU6UlDPbpER9JGNDeLLFk iQRwWROpWLUuAdN7GYRnDHkxWE9GzTLnGTslTBYiVZ JfYfGwIJYkDMOrGLUdNZXhZLLVKSOaGWXpNzFiULEeWZInCDwnPAOVFUH5LCUeSoOlIVqnWW8Dp4WezE A4DQo+In2LNU2em4QiUIunNXZeJU3xid8KOXrXXuOxC6QhfpR9SWUcVOUrGo4KODTrMSUpuKA7MBPbMG LZJbAiL0OhnF75THKUWv7+DQplbmRvYmoNCjQwIDAg h6SdUZm3LQ9LTYRrTEo9yJZrXTCcB8Ctn7KrZv58IUFeDrbiAuIrUGClWDNNFTMbYCGTXZEylNQ1GdVo RkCvSxLhGRL2BNIkNO3oRGuuRQ8WPEI5GArjDXXtFYMgR0bYIlTnVCVaSFCrmYjpZG2QMwTeK4PpiqNf dCAzOSAwIFINCj4+AEedtgSbRnrFMrPdKIXby3VwLE u8GA8RYCObSTmbRX5XFLCmtG0gGTpeTS5YQeUgOpLzSAKDNfMsY05usMQgFQc8O3YbAyZfTGJpTydgVU MgPDwvTmFtZXMgWyBdDQogID4+ID4+IEcgWH1HIPqdmkUyTFPpBu1LXBUjKFGzIA1uMXExZKQqZ1D9xC afNIQNNqMjY5iaufhmAO6yMHQmR462sNrfwlZsTCV0 YWAzMe2PHZLoWFV4TZQohLLxBogzEVAVHGipOX4UxFHgTTV5oV0sOTtmMAKaLJUhC8hUCyMddXwqUJ26 bGwgbnVsbCBdDQo+Vu5DBE3lz0FcCFz1mvUyDBdqDCVuHOtdHYBkDIQeBDXbOKM8NFC1KBQZJeTfRZOg WGMsKFzoCSCkTNMpmt6KDOSgSKY3DBI5AhSrURHpAH NdCStsLGPxAfcaHfN2VTUdKIUkGE0LJpRxKJAlLGVpMWkiHHXvKYMkxw1VWPLzTMDnHVDsPgFmLIKmLW XdHPdoXNYhSHZ2OVCjNOYaGJGtXT9OGsSnPAWuQWflREybHGXqLJLsjt4KNGKtRVXuMFS3IyEbXTVaEQ SvMFgfRCAvDQZjJAU3EKWzAELqKK4NZgPwSLLtSRNr QqJfVNItNLRscm9AYMYxXWJoLQT3TfMbNKYmYLRwEYxhUZDfRFW6URkdHVAwRARcIX7XIhNnWRBuATN8 PBWiSZFsTIBgrl2PXYXaERHjIRa7VVNtXMNaELWtMUavIRIfSVX8VKZvYTUjZVGuHQ2CWkKgBPQzYRh7 ALvrBIXmVZSgig1UPSPfWLKcYdP1IeFqIRVdSTTfJK gbXSZeSKTvNak1FCHyYAIoWT8XSlZjTUXmDtT0YoQxSXNvHWCsej1IBWOwPMYvFgtzZGVwEATlCRZzFZ myDPVaZYE5HpeuXPZcIPDcRJ1JCvSkZHLyXuS4HVkvGQEpRKRezb2PTWAqKKRkNIE3WFTcHMZyEZMeON xuBOPxADN8FJD0RFKaWACuCY5RMeDxJIRyArJvRpPz CTVzWNXkhv2AUOOxTLObQtKrGFHuGEYrOQQyFOpsXWOrJSV2SXH5MGNqNQOuYB5GUgJbQRZxTWonFEWh DJTqOEQjrt1HGXFhZKE9RPHuPPHmDSKzJEWeXNfcOMAfRUY9ScE4LHEiMRVhCP0SHaGoGVKvBYi2FHJc KZYkHUHzxt1AWFVsVWY0PGD9HXWqSRSaBYFtCBozOK IuLTHgOHJ1PBTdFRTpBZ6HEpUjWPYxUcH8YJybWLZcTENhrt1PUSUyMFVkHDYcMWYyMCIpZONqIPvlGL XoIvG5JZQ8VFAlSYDpKD8XOqKlSISdDnn9WoMbVIOfXRGkyy1GPOCzXVH5PLluGyTgMBLxEBRlCRngAE HbPsplEAAtYMYrQIAyJO0ROuIrQBCkOkT6NSQqSAOx VRIqtx6GUCRyZDS6VFIuEYRnHZXcHVJdYUr6liPduCWuXGe0TZ6XC2GjvkWsPKRMHl8Jz413EJYrVZVg Sw2YJ7chUc9uVTPcMPWWJg4UJQq7AWzbHcx7IHmkASpsXWP5CNX2EyycBELnSWW7VHPtZHG+IDxhOGJj CPBzKZS9KxWbMth9JEe6JiHlSGCrZMcoZPA8ST8rVO ANCj4+AMaboXPfwCikLFDTDgW8ISt8IT4ZVREYG0RWOv== ID Date Data Source [id number] 09/20/2019 03:38:31 PM EDT [facility] Name Value Range Interpretation Code Description Data Jerica rce(s) Supporting Document(s) Progress Note [facility] EOXPDj0wBfXXEfPx88/YRJhvDRHyg6QeXGzdISc1RJsrYPUjP4GkXOM8bL7lRDA5YOiGDhVgPuLmYvRg lbm [file] AgICAgICAgICAgICAgICAgICAgICAgICAgICAgICAgICAgICAgICAgICAgICAgICAgICAgICAgICAgIC KnPUAtPHEmNXPrVCQlZF2KALYrIBWfXDCsNQNaNDLwJFTiDEXoWPWnWEJgNGMoIRBkTGDjFEPwAWNiWU AgICAgICAgICAgICAgICAgICAgICAgICAgICAgICAg ZHJoAAOuBSNnLRSkKFNiSQReHULjBKAuAV7CCABpPXMlUIEqTIZaMILiPNTzHTUyUIPwKAFiOWBdCAXy ICAgICAgICAgICAgICAgICAgICAgICAgICAgICAgICAgICAgICAgICAgICAgICAgICAgICAgICAgICAg OYFzDBYrKP9VARYdWRIgNIFjOMZbVUSeZGEqRLBkXY AgICAgICAgICAgICAgICAgICAgICAgICAgICAgICAgICAgICAgICAgICAgICAgICAgICAgICAgICAgIC LwPMHwAPNwHUXxXPWlXOBuPE8MMRWlWNZkUPOwQAUvGDIvNFIoCGAnYGPsAKHrGHWnOIPfSTEwOFYzNL AgICAgICAgICAgICAgICAgICAgICAgICAgICAgICAg ASGgHUBgOOBlZLWmPUCaHGYrDFNsZRTxRYAwKP5YDISqCIYrXGYpDDXwLCZmKHIlEFYxVYMkDIVjVUTo ICAgICAgICAgICAgICAgICAgICAgICAgICAgICAgICAgICAgICAgICAgICAgICAgICAgICAgICAgICAg BKTcJAQhXDHhNW7JUKSdWQXgAZNcCDDaJBRkNFLnIL AgICAgICAgICAgICAgICAgICAgICAgICAgICAgICAgICAgICAgICAgICAgICAgICAgICAgICAgICAgIC CjPMTcJNXdULTkAETxMBUbFFBaZZ0PGFUqXMIeVJVoBGUoEURrPDYhVFAeMEXgJNRtNBZmMCTtAIYbMO AgICAgICAgICAgICAgICAgICAgICAgICAgICAgICAg QPLuPLGkUCKfLWAjILFlRLQtOCLtUAQnJPZtIBHhOP2HOZFdYKKxVAAkWMWhGKFgATSeTRGqSAOkOBWg ICAgICAgICAgICAgICAgICAgICAgICAgICAgICAgICAgICAgICAgICAgICAgICAgICAgICAgICAgICAg IGFgTHAzLQAzKMVsJS6OXOEyPCGyIOBnQWMoIEVzAO AgICAgICAgICAgICAgICAgICAgICAgICAgICAgICAgICAgICAgICAgICAgICAgICAgICAgICAgICAgIC EuXWHlCPKcIMJyVSEaTDPbHHMeJQGbPW2DAO20hJDlb2E6GFXiTL2mdoy/Ap5PBRdprpBozUXxMD5TXg ErIE6nei7CDfHtCJ2unh8MIGgQUqZvT5M8lVIfFIVv PYWHMrNiI24vZLllAe73OGteKWLtQqZzSYz0Un8QBfNiU7xzRFWpMqW7SBKgNuA7ELJsCjS6OJPuQpPp SDPqWIKaROBxHWBBSTE3XPVcKoQbJBadIZ3Ik9XalVE5NBf+Sk7AYZ5fx1YvXIekXcNxYF8sjc0GGTmQ YaSxK6OcdkY6YLDoFEAhOm5KXCYyDDLvxKYnLrReYR MJBvOeA1YwkR21NDYCXs3+FMtnejZmSziMLiDnOMLap3OtGBr4DC3YAJIyMRr9sJWwAIPuD7Wpj5BgHo 76IIGxLydoZImvwBabNEw0mv2qaXppxnlqMARuMDUoYb2rCa5vCATrQMFxDoVeIMQFII1ZZCNcEVVnkE JeVCZgHCIBCC9GUKmpSTH4HWYhoiThxFYmLKffJD3M YXJlbnQgMzIgMCBSDQo+Nq8LTY3tn7GqKMebCUXnPE0wib3NXEjITeIoL0P1tQTwC8Z8KJupYx1ROCTl GTAtGbFkCYVWXKhbMF3OVJ2upfD3DZ1VlEMxUXEeNSBrdANmJZe4N54upSQmKWvlAS7EILA+Magdiel+Pg0K VPBbMCMsIAYfYwSeXMGBWvSaT8MjG4SQp3LjN1LsGG 36fFdsroJsBUumUH5GFY0eSIWaYTSDDO0VxUOyaJ7yocZqCfVuODPWRtCmP24zsVXyHWHdIUBuSUGeQm 6XZIAxD2MijyQsgJfjpkQlJOPxZOAKZL7SJBxenaMygNVgdJcdTM32kFjeAR6OMh4RPpLrRB5sev1CbZ JgFx7XKFVtOU1QLRXqQOViIVCcDAI0BVGwNnHaWAdu MRRuFQQuXNW1FQHhPWBnLG7MKmWlYUJdMaP7PNLiDFAdEDQiaa3NIFDxZEZtPNNxVVIyYKHhAIOhKUne UPEoZJSoVFB3GEAvZANiIN1NSbXwGXNmJCNwLVgfHJXcMHTljk9NUIKmBBAzZuFpEgDmJQXhSVQfEPrf XJLjLDL8AQM1TWMkSGXdBN0WOgKcEASqYPM0FBjjSG BcHAMmzj3JFUFtIWMtCHGeVRNpYMZcZXXmRRamMAToLBP2CMU2LFGaPOIvEH2XVzTaATErGJX9BfAtCP NqUPFuiw7FEHNrCPRpBUgsWvRjVJLtVOBjSQnnHTDdZWBsWmmtDCLnPVAiDV8HFqOuSALvTZL4VUkpVG GjLPHjau4LGEIuLJWjGGn1MmFwDTCdLDEvLWsvYTJd QYX0TSr3TKMvXXLvER6GIyYiZZBkGHudULurXNQwCMTeab5SGNVdSYRtQtN2VxJwWHOpFGBdOFmeGKWv CUD8OOK9BLFoFQUpAH1DZwXtXHAhAAooJOrtYHHtVYIzid1PULKwZDWbJFGyQRGeLYSdMAGyRKkqGIHb KHG5Ucw8FSZqDUVtXX6AChBaWWEfFcFlLGalAJHtWW Qlph6RGCYyJPSkCQR0WsNhGBFzHSXmFVjxBSPzTQTyKuBiVCEzZKQqHA3NMgRrQFAwQjYcOPJzRHTcJO Ryvj7LGAGuNCXjIQJ2ILUjUMIjOZEzWVazGDAhNSVfEYykVZSqRCHdQE5PXjOzTDJoIcViRABkQVCeAX Knsl5OMXFqWPIuIuQ7ODJeZHAxWPGuEIqgMWBhESBr ODd0URCvKCWkNT5PFnTiNJIwXkOtIQHgOOFeRFYini9SAYHzMMFyKJTrTcMiQUQzHQUwLHrrWHZpFYL4 VYK1KEBuRGYqZU4BAbJmJEkpKIFUJcq7OCpmS1g9MOOdBX1BD9Ylr5JlVoGeTMASKAsoEH8stjDnEMTf Ee3NI3sFXhjhBeImHfxvSnU8BaF5TmOrRoHmM6SeFd J8JLUySUBcWh8hVJKjKWJ8O6GdEMnfIAaeLWD2MEH8CRHyTQQqQKP8FIX7ZwLcHZ6CXe3GAsN2CAV5cO QxFd6SSqD3UKUOLaRoWF6AIVt= ID Date Data Source [id number] 09/13/2019 11:44:08 PM EDT [facility] Name Value Range Interpretation Code Description Data Jerica rce(s) Supporting Document(s) ED Provider Note [facility] VNGUQf9yPcBUOaEe16/ZGOebQCZmn0AuGRunFYr8EEdqYNMhX6LwTNQ0vT2tUXN9DIjWCuApSgSaDhKk lbm [file] heCXI1NXzrqifLaDt9cOhPJkAJnqDTP4ajqsFaUSoKL+hVlZ1c+x6IpK13jztxnEe+grinder and plater+LeRww2AA6w [file] ICAgICAgICAgICAgICAgICAgICAgICAgICAgICAgIC AgICAgICAgICAgICAgICAgICAgICAgICAgICAgICAgICAgICAgICAgICAgICAgICAgICAgICAgICAgIC AgICAgICAgDQogICAgICAgICAgICAgICAgICAgICAgICAgICAgICAgICAgICAgICAgICAgICAgICAgIC AgICAgICAgICAgICAgICAgICAgICAgICAgICAgICAg ICAgICAgICAgICAgICAgICAgDQogICAgICAgICAgICAgICAgICAgICAgICAgICAgICAgICAgICAgICAg ICAgICAgICAgICAgICAgICAgICAgICAgICAgICAgICAgICAgICAgICAgICAgICAgICAgICAgICAgICAg DQogICAgICAgICAgICAgICAgICAgICAgICAgICAgIC AgICAgICAgICAgICAgICAgICAgICAgICAgICAgICAgICAgICAgICAgICAgICAgICAgICAgICAgICAgIC AgICAgICAgICAgDQogICAgICAgICAgICAgICAgICAgICAgICAgICAgICAgICAgICAgICAgICAgICAgIC AgICAgICAgICAgICAgICAgICAgICAgICAgICAgICAg ICAgICAgICAgICAgICAgICAgICAgDQogICAgICAgICAgICAgICAgICAgICAgICAgICAgICAgICAgICAg ICAgICAgICAgICAgICAgICAgICAgICAgICAgICAgICAgICAgICAgICAgICAgICAgICAgICAgICAgICAg ICAgDQogICAgICAgICAgICAgICAgICAgICAgICAgIC AgICAgICAgICAgICAgICAgICAgICAgICAgICAgICAgICAgICAgICAgICAgICAgICAgICAgICAgICAgIC AgICAgICAgICAgICAgDQogICAgICAgICAgICAgICAgICAgICAgICAgICAgICAgICAgICAgICAgICAgIC AgICAgICAgICAgICAgICAgICAgICAgICAgICAgICAg ICAgICAgICAgICAgICAgICAgICAgICAgDQogICAgICAgICAgICAgICAgICAgICAgICAgICAgICAgICAg ICAgICAgICAgICAgICAgICAgICAgICAgICAgICAgICAgICAgICAgICAgICAgICAgICAgICAgICAgICAg ICAgICAgDQogICAgICAgICAgICAgICAgICAgICAgIC AgICAgICAgICAgICAgICAgICAgICAgICAgICAgICAgICAgICAgICAgICAgICAgICAgICAgICAgICAgIC ZqJFWySBLpVLLwOSKuUOVfGUe9Z8wdDUZgPYGaHO1hOJk4Ix5+ETnRIiXwPFH8rrEjlB3HMK6og5YcEY dvUEGmh3ZwFHl9GG7QOYPdZWgnIA4OIRatay4ELUXd HAKwoOQUr1piSmGhFIA5GLBbMataLQ7ZJXMuE6pnfvKlYGFvWHGZSAgsVFIOPGghEJDFFZLwEBRxDcJl SoRbHKBrXQFhYQKNOEC8DLKuBoWzEGTxFEJzKxNoOPVFIANrNTLoPpThIFMnNUPoTpfrRACGFKL7FYCy XfBxLGepEN1Yu9RoiVJoIo9SFp7LJqDcEE6ijq8CNK jeOMLeIssXZhw3PKdiFA5QqEFhhOK2JFTcJXHQFtNyL5rot1UtSNWjSWGNEWdfVS9Na6NnmEN0TYi+Pg 8ZOB1bo9OwYEe1FGLpRF1kld2VXLsDLeDtV2GlgYbpXRGLEPXuq7UzGFRaRO8whXUxXTK2WIAwlAdpJo H2kTNWIVSwxO5VdQh2sHcqIBHgOQRcPf0fMJ1iZBIi XPN3OgJ3JVDLOP1XBJNbHJQdbSCwVKFgYFCFNP8NJTowIQS0KfFgnoGtdWHbSAdvWR4RBJOtqvAkOYpp PFQWGQnlTB8UQUe7YEMqNVLwTk3BIn3MYjLoFQ5qnk1OMAOoGVJqJzwSLkg8UJbeGX6WvISvOWwAZKTH nf94mTYuozBWh0CbjqBrjYWLsZr0ZFDosYfvUTULPC ynL50mvApxMI2JYXE4BHQsRGCuSnCiSOImVNtdWaYQTSvHLnKuA7Xdr2TuDaQnNRJsCFSiW0nXTlOhBC E8MXBucWlyRX3PNlFmI7UebpZubKU0TTBpGMTGHnWcO0OcYFUdYWQlHAAVWFtwNB7VVQa2MIHsHMBtDo 6HHp1VCkOkGC8bja6HQEBlPYWwYtvQAqk1JMnpAS8Z eQAfKZoQtx0iBKL4lmQuJYM0FXAvpmPuPiQdXJIUm0Plx5kyVK4EEnBgFKNgUw3qQu0uKLOtQGY0JpTw ZJXNEJ5CVPXwLZBwnDIaVOD8WEZbXxQtYNytOGQeFAgcAI36dOewHR2SOAZpARRdZS56XAW1BQLsNz9B YQClCWGpemL4PIUfNAMFQuLaR76mfLDsWMWcGNKBCV o+Ak7CPZ3yf1FeXJs1OsYpFR2osk8VYLaSNxGaS5BobKbiWDCWMK3bdIRtLBE6YZNbymepcm0zLD0fQa LzgCkgyaIvOZAQCfQxvVP8OoN9ZnBvFfWiCGd1OVOfGS2xVVxbNB2HDLA1LEesQtyrWAIUUA0HXDuzKE AeBOirjoFniVRdKQbsXN2AYVEgymRpCXzyMMOOWEad RV3GmlV0KUOnUTZdVp2LLDXzMvI9lAB7WGHxILORGz6+KJegmxGpIhsTDdV9DBIpb4IxYTh1AU8PMNWg SCt5tPNqPVYfUEUbOObdBB5ozQBmLWK4YJCcU7qltUINIIP1DFI0TIUKNhTmpDQ9AjT1CeOlCuTsNMY6 EByxVS5hCSjlYV6PWZM9ACgoXneePNCTCU8RDMhkDY T0ItTxuCoyTS0ABlXoQ6UocyWqkCE0BEDiXEBKAoBlQ5ZiVYYsLBEbKCSATCl+Wg7NIU1yj0TpVGa6SO YjUH7udx4SFCoJLePjC9E6qGHkY7R7GYpuXl5XBPUxCYIcYBqtGFJEDZrfDG1ZQH1pfqV8QF3CxRWlDD LzTZRxlFOdWXb1O98koPDrOAtgNI6GZHV+Magdiel+Pg0K ZPKcFRHkOTIvXfLiJJFGCgYgU0DpJ1GPa0IkL4OhUT40kHkxxqEpAKoqKH7VTT4oFMCaBVVQQZ7DhHUm tF7zroF2NFIuFHHVNcHyM55tbLEtWFZvTYF1UVTnCm7VZGOlA3JbvzJmlGkjvtXhNDVbRZLGKC8AHNyb asUymYDgsGyfPC39rFcdKJ0EXp1YQdOeKV5yno4ExW KcLt7LQJS8Sm7ZCKZqSWGtWFXhJUT4VLRwVePpPLsuAAEtCCNcTLF5BHUlBZSwCC6TGuKeZLDvGHL5YA ksPTZwSYExyl6EXVVvGSR3ReBzVFVbJBTrQWBjHMgsWTOxKFElESV8ESCwHDAmGX6SCbDnXFMkBLI8NO SdNOSiSQGrsz0TLGHrDUGtBch5MEYtJTSeCKUqRUgw MGKiUNR1Mgr7HINwEDLoKJ7NNfEdMDIuYLT5RDJqHWRaKXLjxu4WZYFdSXGgDDs6NcYpTSOhNKTrXPmn GWEpDWM0GKbfDEKkLBJvYR1CRiNoSOPiRHThYNVbOWGnZSQrdy0CMSTpLQEvMyM6VDBaIWPlOEPlZRgz PZFeFMO7VTe0VWWjPAZzGO9AOuKaGTLpQPQaNVUzLA DdVBXoxk8JBUNhKOFzXPCqRBLwRRKwRHIgQQsdYBOnDKD7RbJlTCLrDVWwOI4KRgLeASUkAaYvDqAlCJ PyGIElzj4GSRApLTIwKMF2JxCeWYIzONQwXUhlUQGhAUIsXiE5XPTcARTqVL5MMbIwJKWhPvC7XmQuMV WnVJFldd0LKVYlWXRvFcP8XgHdTVKqHRDeYOmmXNBl VSV1Zsc1LPAvYRLyGA8CJtAxEYDpQpn8BfihEKEgCTPltx6WAJTrQRWwWYm5XDIvSVXcLIVvFRlaXPNo NNRmDWRpYJNqBXRuSW4XIcMvWPFeNgUkKFffHIRfHSUyxw0MRQLcMYHfAzP1WUSrMJYfFCGbAExgSBBu AKD2FJi9JQWrIJHrIT2EOeDvWYDlKya2NvVnFJLwGP Szgq8IQFNeGBNwNLPhQGOeCESjJYHgGWmcGZTwZZJ0GNuzFCRlFIEdKB2AUzGlOIDuGmarOJwrHJYuLT Vyll1HWKNbLHKfWKY9YLOoNHZfHCMtXJreGGPtGPQjSED2VKZkQOAzPD6LZdMgMUViXCX9ZaSmNQLwHU Htfx0PUHSkGCH6HUafGSFtZUBeHZCkBIstUEEqAEEp Uni3HXAcBYXrKB1ANhHqMPRbDIQ8WtTbIUFaELWfnk9GZIZlGFH4EfC6DXQeTNVbHRIyIIvaQPRyLKZd NCJ1RJUlHONzTF6SMdGjGEQhUQL0NmRrNOEjQYYrng4BJULmJHI0YBX8FODmXSRfTOLyNFxqUXFoHCG1 ZoPvRJTuQLGaSV6JWeMrPRPxDXJ5VTDcMRMpTNGmoh 0ODDAwWQN8BOPpDTChHEJpYFSiYKdrZDYtVTZ0YKs1YGThRUEpKL4ALwHwWBYeZGP8JnJjKVPfABHhjo 3WOTZbKQK4IdS0QNAySMAmOFTkWParOSUlFNW7UyXmITYsYJFhID2AQzLgNBEkRBd5TNFcJWFmJPRexz 5XRGGjMGX7Fiu0SaObRXWrGWMqHRhsXHYhLTK0QJS2 VWRaILDjIG8MWxQaOJDwJYjxWJZnDRBnQJAxkm4UHFQvAVB1OPZkEhFvQUTuONDdAUmmFVJtIRN9Bov7 MEFeAQJkDU4LOqUsSPueENYTIuu8LPpfY9b2LGK2Ya9RV4Uxd5HgTQNpIGKYGWjxLY1ldhSwWSNfCp1H G0tIDtm4UNXrALRrOyZ8YsQaSHnvSSskECXoJlMdZU lrXwUaFH4oBCU3XIIrOiBnGLP1VPY8IHFzTuM1USA1QPE4YKS2KWYiQxReTG5CRs2XAhU8IDL2vLUnPo 3HLGj0BlJLIyVqCZ9EMNv= ID Date Data Source [id number] 09/08/2019 12:22:47 AM EDT [facility] Name Value Range Interpretation Code Description Data Jerica rce(s) Supporting Document(s) Discharge Summary [facility] ZVHVDq9tXiTIFkZp70/MXHsjIKCco9YsVPyqTZy3KLnkWEXsC1WoSYH0tW4sVAR3MQeFYzMuUkHjQoN6 lbm [file] Cg== ID Date Data Source [id number] 09/12/2019 01:24:30 PM EDT [facility] Service Cmnt XXX-Imp : NoneGram Stn XXX : No WBC's or organisms seen.Specimen concentrated prior to staining.Microorganism XXX Cult : No growth 5 days Name Value Range Interpretation Code Description Data Jerica rce(s) Supporting Document(s) ID Date Data Source [id number] 09/07/2019 06:05:55 PM EDT [facility] Cmnt XXX-Imp : NoneCSF Panel : P CR ResultsAssay Note : Non-K1 E. coli serotypes and non-encapsulated strains of Neisseria meningitidis are not detected by this panel.E coli K1 DNA CSF Ql Non-probe PCR : Not DetectedHaem influ DNA CSF Ql Non-probe PCR : Not DetectedL monocytog DNA CSF Ql Non-probe PCR : Not DetectedN men DNA CSF Ql Non-probe PCR : Not DetectedGp B Strep DNA CSF Ql Non-probe PCR : Not DetectedS pneum DNA CSF Ql Non-probe PCR : Not DetectedCMV DNA CSF Ql Non-probe PCR : Not DetectedEV RNA CSF Ql Non-probe PCR : Not DetectedHSV1 DNA CSF Ql Non-probe PCR : Not DetectedHSV2 DNA CSF Ql Non- probe PCR : Not DetectedHHV6 DNA CSF Ql Non-probe PCR : Not DetectedHPeV RNA CSF Ql Non-probe PCR : Not DetectedVZV DNA CSF Ql Non-probe PCR : Not DetectedC gattii+neofor DNA CSF Ql Non-probe PCR : Not Detected Name Value Range Interpretation Code Description Data Jerica rce(s) Supporting Document(s) ID Date Data Source [id number] 09/07/2019 04:20:[address] [facility] Name Value Range Interpretation Code Description Data Jerica rce(s) Supporting Document(s) Glucose [Mass/volume] in Cerebral spinal fluid 62 mg/dL 40-70 [facility] ID Date Data Source [id number] 09/07/2019 04:20:36 PM [facility] Value Range Interpretation Code Description Data Jerica rce(s) Supporting Document(s) Protein [Mass/volume] in Cerebral spinal fluid 23 mg/dl 15-45 [facility] ID Date Data Source [id number] 09/07/2019 04:54:[address] [facility] Name Value Range Interpretation Code Description Data Jerica rce(s) Supporting Document(s) Color of Cerebral spinal fluid [facility] Clarity of Cerebral spinal fluid [facility] Tube 4 Erythrocytes [#/volume] in Cerebral spinal fluid by Manual count 7 /u L <2 H [facility] Nucleated cells [#/volume] in Cerebral spinal fluid by Manual count <5 [facility] Microscopic observation [Identifier] in Cerebral spinal fluid [facility] Cell count and Differential panel - Cerebral spinal fluid [facility] ID Date Data Source [id number] 09/07/2019 12:29:[address] [facility] CT ORBIT SELLA EAR WITHOUT CONTRAST [id number] 0FINAL RESULTInterpreted by:Ross Platt MDEXAMINATION: CT ORBIT SELLA EAR WITHOUT CONTRAST [id number] INFORMATION: 39-year-old female with history of breast cancer, worsening vision changes over approximately 6 months. Evaluate for calcification.TECHNIQUE: Axial CT images of the orbits were obtained following intravenous injection of 100 mL of Omnipaque 300. Coronal and sagittal reformatted images were then acquired using the source data. Automated dose lowering techniques and/or adjustment according to patient size were utilized f or this examination.COMPARISON: MR brain, orbits dated 09/06/2019.FINDINGS: The optic nerves are within normal limits with regard to size and symmetrical bilaterally. The intraorbital, intracanalicular, or intracranial segments of the optic nerves. There are no intraorbital masses appear unremarkable on this noncontrast study.. The extraocular muscles are symmetrical bilaterally and normally enhance. The optic globes and lacrimal glands are normal. The optic chiasm and optic tracts are normal. There is no compression of the optic chiasm. Scattered punctate calcifications are seen within the lenses bilaterally. No calcification is seen involving the optic nerves or discs.IMPRESSION: Scattered nonspecific punctate calcifications are seen within the lenses bilaterally. Please refer to the pending MR brain/orbit studies for further information.This document has been electronically signed by Destini Mas MD on 09/07/2019 12:27 PM Name Value Range Interpretation Code Description Data Jerica rce(s) Supporting Document(s) ID Date Data Source [id number] 09/07/2019 10:35:[address] [facility] MR BRAIN WITH AND WITHOUT CONTRAST [id number] FINAL RESULTInterpreted by:Malik Platt DOINDICATION: worsening vision changes since february ; has a history of breast cancer.TECHNIQUE: Multiplanar and multisequence MR images of the brain and orbits were obtained without intravenous contrast administration. Axial, coronal and sagittal T1-weighted images were then acquired following intravenous administration of Gadavist contrast. MR venogram was also obtained.COMPARISON: None.FINDINGS: No abnormal signal is present in the brain parenchyma. Normal najera-white matter differentiation is maintained. No acute intracranial hemorrhage or evidence of acute infarction. No extraaxial collections.Ventricles are normal in size and configuration. Basal cisterns are patent. No midline shift or mass effect. Midline structures including the corpus callosum and cerebellar tonsils are normal. Pituitary gland is not enlarged. The left transverse sinus appears congenitally smaller than the right however, no thrombus is demonstrated.The visualized paranasal sinuses are clear. Mastoid air cells are clear bilaterally. Orbits are grossly unremarkable.No abnormal enhancement following contrast administration.IMPRESSION:1. No abnormal enhancement following contrast. No evidence of metastatic disease.2. The orbits appear unremarkable.3. No evidence of venous sinus thrombosis.This document has been electronically signed by Destini Mas MD on 09/07/2019 10:33 AM Name Value Range Interpretation Code [facility]) ID Date Data Source [id number] 09/07/2019 10:35:[address] [facility] MR VENOGRAM HEAD WITH AND WITHOUT CONTRA ST [id number] RESULTInterpreted by:Malik Platt DOINDICATION: worsening vision changes since february ; has a history of breast cancer.TECHNIQUE: Multiplanar and multisequence MR images of the brain and orbits were obtained without intravenous contrast administration. Axial, coronal and sagittal T1-weighted images were then acquired following intravenous administration of Gadavist contrast. MR venogram was also obtained.COMPARISON: None.FINDINGS: No abnormal signal is present in the brain parenchyma. Normal najera-white matter differentiation is maintained. No acute intracranial hemorrhage or evidence of acute infarction. No extraaxial collections.Ventricles are normal in size and configuration. Basal cisterns are patent. No midline shift or mass effect. Midline structures including the corpus callosum and cerebellar tonsils are normal. Pituitary gland is not enlarged. The left transverse sinus appears congenitally smaller than the right however, no thrombus is demonstrated.The visualized paranasal sinuses are clear. Mastoid air cells are clear bilaterally. Orbits are grossly unremarkable.No abnormal enhancement following contrast adm inistration.IMPRESSION:1. No abnormal enhancement following contrast. No evidence of metastatic disease.2. The orbits appear unremarkable.3. No evidence of venous sinus thrombosis.This document has been electronically signed by Destini Mas MD on 09/07/2019 10:33 AM Name Value Range Interpretation Code Description Data [facility](s) Supporting Document(s) ID Date Data Source [id number] 09/07/2019 10:35:[address] [facility] MR ORBIT WITH AND WITHOUT CONTRAST [id number] FINAL RESULTInterpreted by:Malik Platt DOINDICATION: worsening vision changes since february ; has a history of breast cancer.TECHNIQUE: Multiplanar and multisequence MR images of the brain and orbits were obtained without intravenous contrast administration. Axial, coronal and sagittal T1-weighted images were then acquired following intravenous administration of Gadavist contrast. MR venogram was also obtained.COMPARISON: None.FINDINGS: No abnormal signal is present in the brain parenchyma. Normal najera-white matter differentiation is maintained. No acute intracranial hemorrhage or evidence of acute infarction. No extraaxial collections.Ventricles are normal in size and configuration. Basal cisterns are patent. No midline shift or mass effect. Midline structures including the corpus callosum and cerebellar tonsils are normal. Pituitary gland is not enlarged. The left transverse sinus appears congenitally smaller than the right however, no thrombus is demonstrated.The visualized paranasal sinuses are clear. Mastoid air cells are clear bilaterally. Orbits are grossly unremarkable.No abnormal enhancement following contrast administration.IMPRESSION:1. No abnormal enhancement following contrast. No evidence of metastatic disease.2. The orbits appear unremarkable.3. No evidence of venous sinus thrombosis.This document has been electronically signed by Destini Mas MD on 09/07/2019 10:33 AM Name Value Range Interpretation Code Description Data [facility] rce(s) Supporting Document(s) ID Date Data Source [id number] 09/06/2019 11:07:[address] [facility] Name Value Range Interpretation Code Description Data [facility] rce(s) Supporting Document(s) Consultation [facility] MBKPMw5hDzSQIzYg80/JGAbcVUZhz7IbWXogHEy2RZbaSEIeU1GvQID6aW0fPJO2KUmXLxTpTyVaEhC0 [facility] GaLtrOZaSeUNUtHkcGKuAwUMoyUbvobPEvUL3NsSI8TAWcQ92lWEKlWTTgK4IkSRS3OWw+Hj4NGYXpqC HoXG6LZqcJ3G2sxxb5Gu9kIK8JbBcf4aD5Mzo4J3YTKjcRp5utrTm4LjXM7HcW2doyqhEm5z/a8DxjqF V6i2wDZi6Ujh1bWm411et5hYHzWjx8V1OwMX7xhBf/ iz+dYEimhwirG6CyyMpZe6W/ojAuPf8IRdX7eS8jwrlE/Ogt4a25ZdSbFu8bgj6FS7/kPC4jOrauUGA+ 9tPpM/Wbb9uKe+u6j6qrCfdJEaC115//Uj51Pa2tcSqmOnqI2GzErBhiCnbjLcjg6JxYg69Q8uUQMNn3 kPFxKBsCVQDXxPs8sA5CQ4DvtiXox7azMf2TjD4Kii g63RHUudWyV0kAkvn9mqXmAf4SBjl4t6VBzrmZt7j/Ee7KRVzi6ysl66j+4jWmtFsvOcc8LE518quxTi xxIygXpP76phEJtcRPnmP3lOb5Bk6HAP3n1RdibtjAn/O2yn5eDoXqOh/QPWklEDYCLuKUptmw9vYKp/ nJCVEGoTy7dr90APfsYqaw6rSAVYdxaSXwXcYcr431 dc4c8ncYgiFKzsIEJmMYalHf5YYbr6ClOAse/t1236Ss5kUs9pvvCWb8NWoIYqc0H2lFCV0RbGQwOU3c J2um69JhNqGh4LR5EW88urnttDTVwwQVhqGQH9lqWaz8aDUbNad3B7bRMb6e8j7/P0TlsCtvfMWvXLmR kCE7Hl/4Eis0resXoC7Pwto/jY7T75WuPba/tEJRL9 S0FxPb7E+DHhbcjkWOnulo4bk4G3NGdjJjZFPS16A2PX6b062LfvG9fF3BqilPmKpDCLloMDxW9dqjR1 VxGdBRi5nG3aY4uhn/Galilea+/reVK8QrNTjCCjtFvhJgnrui791fAEzJ57jJVDvWQkKwyLRAb1L6TXqX95 9obV06e8a58sy361qj2kk41Xk5k0F9sDb7vDMga9M8 [file] holman+U6+/9N2/J+2y3/klI8Y3hD0x/Ekplt4hGcIwqAP+CfHlVziJmV8ZHCzCsO5D/sd3M/ZFBppd6yhWL Snqeq+Yl2a8/nIEdiVRX4awL2hpqMlDLv3XUK5Sieu 0HZ490hg3b8CL9fo6X2e5/b6HO/LcRvwL01JyZ6kVcFjam2GR+vKcYt4ancyP2B3s39+d7imM8wnDL3n 8P3sgSNX+br1W+Ja7CDP2e+P05SEABpkHpy9QAv5qO7bk6AW0sQ7tKsU0+ZE3mXTv8nkxqJ7gjW28Y58 jxrrDFf2iAis4tE+sji3GKcmvdtPug1U3BGfam7Hlo cYrNk3bSkQ7yIkh6GHulxvV53gv1V8X9y5Eb+A4fqXuneblVnb21i/hu/SNUsKLesOm4hGlF16nk6m41 dT+0uzoMc/IJ+6+5R3jmdRfnEuP2sIFQxrnKSgJuRYD8E0v2JnaOUYmrADDF0oONQqNF45uEuGebi2Mk 1q0zWz1H0JnFLBqZeU82otPw+FfvIT+AFNh/8NUANr rbOqMk6fuUPliz59ptxmH7ooK6ssaEmno3Cw2Phci7hFZI4mx6ijgsRwgWdDfXM+MdLtstfvvK/A/[employer] [file] [employer]+Lp6WCDKqKLa6T1O4CVDgTXd5N9WPD5RIHIHdRMtdYMfuUEDfKTd3D2Q8MGXyE3RYJ8Bnyqmcxb6+ HO9VT14ZRZCnRUw5Z7C9hASgV7F6hYmBfSL7EZ1JOX7MlYi0cXCsoS0+EF0LJ8WPZgSxSKj0J6F0oQBh Q3J9mMrRgEX4FU0EFT1XpLPsNYMforIjLq9dR0CRYI ePQzMPRDO5JI2PzURuTE2AfMXIW2VkaVLyZt9uIYrgtPOvgU8pMa2nGAtkLU3TDqHVTZpHSLQ2CQ1CsK LjXA5McUZPP0AbiHCfUt9sQPeniWEfuv8+WP5HTSIgYt1ODr1+PRwegrGlFhpYOqSmXSWwb7KpHBo7FN 2LDX0swVodXEO8Ve5NoOO7pHWzW5aGNQ7AgOXaO07c lSMaIYWgPc5JSjP6drEzyW9EXK60eTXoy5A3EJTaY4ugGGudv71aGOvpZPqVMT3mBWXIJQldFMxkVLA2 YuJlclaiTGIsRb6ADvCiLKw8bJ5dhTG4GMC8XfnvoWCrMVmmGqPzZcXoNhN6kRzwdim2VXnuRB4kLCru czptZXRhLyc+DQplVRKbSOEsIxeACBGxaR2tfvC8rt MiNCrxlRTpIb1do8u1GdabPv0gKq1hMYz6ZjJlBvVsPRLsOe5rpM88NHpybeWbNg6FDgJgCHU6E4LcOu pSREY+BNijPGggkEd6aXFgTWGiSo2UNDHxFQJsTMVqAAJeBREjWAFnTZZuMQXfTBPjDQXlUIAlJAGkDW AgICAgICAgICAgICAgICAgICAgICAgICAgICAgICAg XLIbMJEpMNRwRTZjPJNhJARwXKHqCKKwVYKgMLWfSC0DSVFhVUVkQCYtKHYmMXEwKJPbRWLaVUWxDDWz ICAgICAgICAgICAgICAgICAgICAgICAgICAgICAgICAgICAgICAgICAgICAgICAgICAgICAgICAgICAg BCFyRKQmVHPoBZZkYZ0LKLLbKPCbICJvHNVrHTLpEX AgICAgICAgICAgICAgICAgICAgICAgICAgICAgICAgICAgICAgICAgICAgICAgICAgICAgICAgICAgIC RsMOYzESVpEPNrFBKjTKErKWLqZZAlRK2UOJPuTWTpKDNwXSMmXWGwDUCsBJGmTTSxXSJqKCSiHUZtZK AgICAgICAgICAgICAgICAgICAgICAgICAgICAgICAg YHUlYWGfVSRdUFDrVWGqGCDvTUEhBHSsPEEfNATmZMDrTY4IUBYhGTDhMAAtRGIcUCPiAJPlLYGaLDTp ICAgICAgICAgICAgICAgICAgICAgICAgICAgICAgICAgICAgICAgICAgICAgICAgICAgICAgICAgICAg KXNaYLVpVTDeEBGcMTXhWU0ZBBZzXYDgHENuBMEtNN AgICAgICAgICAgICAgICAgICAgICAgICAgICAgICAgICAgICAgICAgICAgICAgICAgICAgICAgICAgIC UrMBEiFIApYNKwVIUsFSAkMXByNZFpRHIdLU4QKLXlONPyHPUzVPHzNIEzPESaALKlCZRvORHtRENwPQ AgICAgICAgICAgICAgICAgICAgICAgICAgICAgICAg DEHvTNUpJBUxRJQnHKJvCVQsXOUvROOjJJBuMLSoEEAuIXObJP1OHEOgMEEnRVJuJYDzGPIjLZZdLNKx ICAgICAgICAgICAgICAgICAgICAgICAgICAgICAgICAgICAgICAgICAgICAgICAgICAgICAgICAgICAg FXPbTDGzNGLwUDWwJWHjYCYtYN5TWCLpHOOwNZZePK AgICAgICAgICAgICAgICAgICAgICAgICAgICAgICAgICAgICAgICAgICAgICAgICAgICAgICAgICAgIC KdPMXmAMYpSRJvNSYoZDPbQPGqOJQyRQEgRMWpNX1FFGEgNGVlUJEqSGFxXXNeYKYmYWDxXEMyLWEiBH AgICAgICAgICAgICAgICAgICAgICAgICAgICAgICAg QPLfETEzEZDaPMIbEASlKVClERIqKMVoKABjGEOjFDNsKUPnNFNlIN3WIY36wBNyo4S3YMArOL4trjs/ Py4OSHnbcgWfqQDrBD2ZVqFoIA0wqf9VNkJeBY1kut9JNNqOGlWcY7C0mIHyASOyQOSMQjIgC92qPEjy Hi40WIooOPVpCcPkDCo3La8TAxJoU6teAVPxBhO5OJ WaReT6LJMhUiC6QAHtGmXoVNCoQCGoBNGlCWDPJEM0HIXzWqBrSIjiSJ2Vz1BxjPU8WJo+Xi4NVQ0xf9 BaONn5VnVoHJ9rbv4CPHeBOcNjL5IoofD2EUR7UGTrGm0SOAMbNFPygJO9DDQsMJTRHcAsO7SwcQ01AH ENCj4+ZQkuhpAkLviMQzH8CJMcz6YeTFl4IO3LYVFl KAm8kAUjN19ee0ZeoWVxMfxeVxNhqRblHXKhxXEmRZSAYNLrgZJ7VlP7WlGaUfCnFCK9WEFlPG0zYZey ON1CBYI8ZSeoYWUyCCDtS8ePFkWuFJXvTEWeuGmxTJ3SXwXrK4VsxaEinIO1UpObRVJPQx6+DQplbmRv QwiNHdG2GZJyj2HnCNo3BY1GTIBmLInaOI8DMTZjlP 1xXDobQK5MLsH1SLGlGALRGuEdO84klOYxZGk1S5BbBiGeDQSqXreyFNEqKGujYlFnXEOfQmSdQDkwKT 4+ID4+DZxaVW0WJErecnJmSBFbVa7IVCGgTYLjUN8dXOBoNTExV2W4hYitTSIDVjKxX8bvcuxwCA9jLZ UzP581uSrnbtUyAGLoSYDeNi4AZVMbSNJ6ZERoiOCm BFJxLYUIWZpxYQ3SvJEkWIJ2cK5jTMtsPFJyBSRbH0fKTkSevZlgGD78pChrxqTqhBTrLQc+Dg8SNX6v d1UqCAy8lkZiDBxoKBF2DTeyLAXnXIZpDUQoUTB6ALN7YRYEXkDqYNRwMSWmIVyaUEQdTYMweo3AQHBv GQX2LOIjYGEhPKOuALTkZCfeVLHwYIJsFFTsMCHnYI AnIN7CRfUkCMQhFKGuMBvsSTKeZNEdqk2GIYUfZIXbUPExAJTgQSWeLSNuHEfpLFLiKPF3NtT2GGMiAQ LlNB9ICeDiTCLjEAl0FNKoEPRlBJLnbq1NCHRtAOSzNmhcIPVkQCPwKYTdWLosXQVhCHPhJeU8INOxJL XeHO3CEvBeGMJpOZZ8NkSfHZCmKJQsix3XKEMoEKDx JoWpMLIaBFXmCVAdSFjrDITdDFPeBCT7KUMiPLPeSK5BXdJyTBIrJFn6MMZeBPAjGJZppe2ALMPtSAZk Nhj2GCFyWAYfXMTaOGznUPNrLAKeGln4YBUuYMZjNC8LCmXqKDJrYxA6VNMpIRLeLITqwm7BFWWiGWPc KTe7SZSsOSMhYAVgSSfiBPTuYETkVUR2QWLzGZDqDR 1VPcYpPMMxJvBbRsZrEVKsVLAlli8HVQNmYLFiEsN6LQHmMLGsIOGrUCfsLSYyLGLdHWjtSHYrOOJsMS 9KDuCjTPGsYmO9XZGtSSHkKDNjoj2BFJRsFJCwRFX9LLXoVTEoVRYvOFcgIUPqQPP5HVJ6ABCsEQSwTA 7XSpZmSYFaCkUzYaIwBLMzNUWbww0XSUMxVGY5QRTo FOTqXXQqQQUqXXeuJOJnMIB4BEowSZFjWPHkTV5WYjRbOMWhSZRySICyCUZvDUFqmx8YFDMcVTZ3ApEp BJFzEPLjRHZdFYzuMFAuQZZ4HqorOSTjWWFhGS3ZZiGmYKHqJJd9DaRsEXGfGHYbdl8JIYWmJTH7Bznh WyQuOCEbCUBdCLqnTJHiYBR0POb3UZGlNIEhRM5CQj KfMISzMQn2TGVmMFVcAWOqyl9BUYXxTDB2VCHpSTYtOWWnOOGgSAnzWCLwSHS3XoB8BTRsYFLuDZ4DPc SnMNRdNuQ2WKAwRIWnSYXdbj1YYGMiTUE6SGTcArKrULZgGXWwRIncYANgEHSuCdBuZQIsDDXpFL8ZBq DwQYOwAzX3VeWvHQVyDNMdlk5NUIIhRSY6IZOtTaSy MIHuVQOlLKevAFPdDJKvARjiGSOvDMChPN3DStQhTMCrUuN1BNFiDHFaKCGggx7XDNUuKEC4SoZwHvMw PHEgPQVoECgpGZNuNQEyNqL1RIMwDLOaAL0UXgPdOOlvXCCBOul0YCzrB0e6IBU9Cl0FH9Pjd1UoRVTb DFUFRQsdXM5jqyKuDUTcQr7RO3eSObx3K5BbBTw5Vv PhSaRjWvZ5QOHqTKQ9Q8N3ElfzANWmLZ5lTLa7NlHdCTCiDJNrOVFfKiQaNbZ4RvG2LExdUJE3NKGcHv WtLR9TJs9LJpP6YTI9nLFaXt0GLbC6BKtGZiGwTZ4LMOe= ID Date Data Source [id number] 09/06/2019 11:02:53 PM EDT [facility] Name Value Range Interpretation Code Description Data Jerica rce(s) Supporting Document(s) History and Physical [facility] GXVNCy8tBhWFPhTq81/NHNqmDCWpj7MvCWmnUUq0YAvnBOPhA8ZpVWD1tF5wEHR3AIfDWlCtQnLuShU3 lbm [file] [id number]= ID Date Data Source [id number] 09/06/2019 03:04:59 PM EDT [facility] Name Value Range Interpretation Code Description Data Jerica rce(s) Supporting Document(s) Consultation [facility] QDQSKv2aDvPYFbXl50/NTJizYWXpk3RdXVsxMQr5SPoaJKCwY1GjAQD9bD5sRNI3TZmKVdPyOaAhFiB7 lbm [file] arQxBnUAHpFtVuW4P6JYPeBPI4BUz1CM6eCJTKYl9+VRbbjXCduBzrPFDOHaH6MZOpYYxwWAKAIm3R ID Date Data Source [id number] 09/08/2019 01:06:25 PM EDT [facility] Name Value Range Interpretation Code Description Data Jerica rce(s) Supporting Document(s) Acetylcholine receptor Ab [Moles/volume] in Serum 0.43 nmol/L 0.00-0. 24 [facility] (NOTE) Nega tive: 0.00 - 0.24 Borderline: 0.25 - 0.40 Positive: >0.40Performed At: [facility] [id number] Sanjai MD Ph:[phone] ID Date Data Source [id number] [facility]/09[facility]2019 [facility]:07[facility] Interpretation Code Description Data Jerica rce(s) Supporting Document(s) Acetylcholine receptor blocking Ab [Units/volume] in Serum 32 % 0-25 [facility] (NOTE)Results of this test are labeled f or research purposes only by theassay's laboratory animal caretaker. The performance characteristics of this assayhave not been established by the laboratory animal caretaker. The result shouldnot be used for treatment or for diagnostic purposes withoutconfirmation of the diagnosis by another medically establisheddiagnostic product or procedure. The performance characteristics weredetermined by [email or web address]. Negative: 0 - 25 Borderline: 26 - 30 Positive: >30Performed At: [facility] [id number] [place], [place] [id number] Carrasco MD Ph:[phone] ID Date Data Source [id number] 09/14/2019 10:07:04 AM [facility] Value Range Interpretation Code Description Data Jerica rce(s) Supporting Document(s) Acetylcholine receptor modulation Ab/Acetylcholine Ab.total in Serum 0-20 [facility] (NOTE) Nega tive: <21 Equivocal: 21 - 25 Positive: >25The assay is linear between values of 12 and 64.Those <12 and >64 are reported as such. No singlevalue for ACR-modulating antibody should be used asa sole basis for diagnosis or response to therapy.Performed At: [facility] [id number] Carrasco MD Ph:[phone] ID Date Data Source [id number] 09/05/2019 09:41:54 PM [facility] Value Range Interpretation Code Description Data Jerica rce(s) Supporting Document(s) Prothrombin time (PT) 12.9 s 12.5-14.9 [facility] INR in Platelet poor plasma by Coagulation assay 0.96 [facility] Routine intensity oral anticoagulation I NR is typically 2.0-3.0. Target INR must be clinically individualized. ID Date Data Source [id number] 09/05/2019 09:41:54 PM [facility] Value Range Interpretation Code Description Data Jerica rce(s) Supporting Document(s) aPTT in Platelet poor plasma by Coagulation assay 26.7 s 24.0-33. 0 [facility] ID Date Data Source [id number] 09/05/2019 08:12:40 PM [facility] Value Range Interpretation Code Description Data Jerica rce(s) Supporting Document(s) Leukocytes [#/volume] in Blood by Automated count 6.6 10*3/uL 4-10 [facility] Erythrocytes [#/volume] in Blood by Automated count 4.08 10*6/uL 4.1- 5.3 L [facility] Hemoglobin [Mass/volume] in Blood 11.5 g/dL 11.5-15.5 [facility] Hematocrit [Volume Fraction] of Blood by Automated count 34.8 % 3 6-45 L [facility] Erythrocyte mean corpuscular volume [Entitic volume] by Auto mated count 85.2 fL 80-96 [facility] Erythrocyte mean corpuscular hemoglobin [Entitic mass] by Automated count 28.2 pg 27-33 [facility] Erythrocyte mean corpuscular hemoglobin concentration [Mass/volume] by Automated count 33.1 g/dL 32.0-36.0 [facility] width [Ratio] by Automated count 15.6 % 11.5-14.5 H [facility] Platelets [#/volume] in Blood by Automated count 175 10*3/uL 150-400 [facility] Differential cell count method - Blood [facility] Neutrophils/100 leukocytes in Blood by Automated count 63 % [facility] Lymphocytes/100 leukocytes in Blood by Automated count 22 % [facility] Monocytes/100 leukocytes in Blood by Automated count 10 % [facility] Eosinophils/100 leukocytes in Blood by Automated count 4 % [facility] Basophils/100 leukocytes in Blood by Automated count 1 % [facility] Neutrophils [#/volume] in Blood by Automated count 4.26 10*3/uL 1.8-7 .0 [facility] Lymphocytes [#/volume] in Blood by Automated count 1.43 10*3/uL 1.2-4 .0 [facility] Monocytes [#/volume] in Blood by Automated count 0.64 10*3/uL 0-0.8 [facility] Eosinophils [#/volume] in Blood by Automated count 0.23 10*3/uL 0-0.5 [facility] Basophils [#/volume] in Blood by Automated count 0.06 10*3/uL 0-0.2 [facility] Nucleated erythrocytes/100 leukocytes [Ratio] in Blood by Automated count 0 /100{WBCs} 0-0 [facility] ID Date Data Source [id number] 09/05/2019 08:38:34 PM EDT [facility] Name Value Range Interpretation Code Description Data Jerica rce(s) Supporting Document(s) Bicarbonate [Moles/volume] in Serum 23 mmol/L 22-29 [facility] Chloride [Moles/volume] in Serum or Plasma 106 mmol/L 98-107 [facility] Creatinine [Mass/volume] in Serum or Plasma 0.82 mg/dL 0.50-0.90 [facility] Glucose [Mass/volume] in Serum or Plasma 88 mg/dL 70-140 [facility] Potassium [Moles/volume] in Serum or Plasma 3.8 mmol/L 3.4-5.1 [facility] Sodium [Moles/volume] in Serum or Plasma 141 mmol/L 136-145 [facility] Urea nitrogen [Mass/volume] in Serum or Plasma 9 mg/dL 6-20 [facility] Anion gap 3 in Serum or Plasma 12 mmol/L 8-15 [facility] Osmolality of Serum or Plasma by calculation 290 mosm/kg 275-300 [facility] Creatinine/Urea nitrogen [Mass Ratio] in Serum or Plasma 11 [facility] Calcium [Mass/volume] in Serum or Plasma 8.7 mg/dL 8.6-10.0 [facility] Glomerular filtration rate/1.73 sq M pre dicted among non-blacks [Volume Rate/Area] in Serum or Plasma by Creatinine-based formula (MDRD) 89 mL/min/1.73m2 >60 [facility] Glomerular filtration rate/1.73 sq M pre dicted among blacks [Volume Rate/Area] in Serum or Plasma by Creatinine-based formula (MDRD) >60 [facility] ID Date Data Source [id number] 09/05/2019 08:44:18 PM EDT [facility] Name Value Range Interpretation Code Description Data Jerica rce(s) Supporting Document(s) Prothrombin time (PT) 12.5-14.9 [facility] CALLED TO KAYLEY GUPTA RN IN ER AT 4 BY 1767 INR in Platelet poor plasma by Coagulation assay [facility] ID Date Data Source [id number] 09/05/2019 08:44:[address] [facility] Name Value Range Interpretation Code Description Data Jerica rce(s) Supporting Document(s) aPTT in Platelet poor plasma by Coagulation assay 24.0-33. 0 [facility] ID Date Data Source Comprehensive Metabolic Profile (CMP) 08/03/2019 12:00:00 AM EDT W1 ([facility]) Name Value Range Interpretation Code Description Data Jerica rce(s) Supporting Document(s) 16 7-18 BLOOD UREA NITROGEN eCW1 ([facility]) 109 70-100 GLUCOSE, FASTING eCW1 ([facility]) 4.0 3.5-5.1 POTASSIUM SERUM eCW1 ([facility]) 1.01 0.55-1.30 CREATININE FOR GFR eCW1 ([facility]) > 60.0 >58 GLOMERULAR FILTRATION RATE eCW 1 ([facility]) 136 136-145 SODIUM LEVEL eCW1 ([facility]) 9.8 8.5-10.1 CALCIUM LEVEL eCW1 ([facility]) 99 98-107 CHLORIDE LEVEL eCW1 ([facility]) 30 21-32 CARBON DIOXIDE LEVEL eCW1 ([facility]) 20 7-37 AST/SGOT eCW1 ([facility]) 0.4 0.2-1.0 BILIRUBIN,TOTAL eCW1 ([facility]) 50 12-78 ALT/SGPT eCW1 ([facility]) 164 45-117 ALKALINE PHOSPHATASE eCW1 ([facility]) 7.7 6.4-8.2 TOTAL PROTEIN eCW1 ([facility]) 1.08 1.00-1.93 ALBUMIN/GLOBULIN RATIO eCW1 ([facility]) 4.0 3.2-5.2 ALBUMIN eCW1 ([facility]) ID Date Data Source [id number] 05/17/2019 01:12:57 PM [facility] Name Value Range Interpretation Code Description Data Jerica rce(s) Supporting Document(s) Progress Note [facility] PBUUEk5nRqIQAfOl69/PSQhqTJJkh8KtWCctSFb8IFbtDVKcO6RpAUT7gC3mSKD0XFzWRmVnEuUkTeQ6 lbm [file] Wo5IVXqaKeXZFeMvXY5QIAk= ID Date Data Source [id number] 05/17/2019 12:59:46 PM [facility] Name Value Range Interpretation Code Description Data Jerica rce(s) Supporting Document(s) Operative Note [facility] UXUQDw2wGnQIOqIe07/QHTgnWFDjf5DxTAxdSMc0NJpqRVFuT8GsUEA5oG7wIYL0NRzSUwOlZwGiZqH7 lbm [file] ICAgICAgICAgICAgICAgICAgICAgICAgICAgICAgICAgICAgICAgICAgICAgICAgICAgICAgICAgICAg HKWgHVTaRVWoMNLaGM8ULQGwGPCcHELbMWQhLTSfFK AgICAgICAgICAgICAgICAgICAgICAgICAgICAgICAgICAgICAgICAgICAgICAgICAgICAgICAgICAgIC ZeKFAiQTLeWHJrLGYbZBYvIMRsXSFhOZ5IBYClSELcXJCqFGVdQOCwIFLfMGFpICUbYBMvYZCxXERpUT AgICAgICAgICAgICAgICAgICAgICAgICAgICAgICAg UBNwEMXjQBFlDYVlZKFbHBXhBPJqYANsNZLhSSTfOUPnWA5QDXKpGHPuRJCpMBUnKTRlKTTjETFsQQYy ICAgICAgICAgICAgICAgICAgICAgICAgICAgICAgICAgICAgICAgICAgICAgICAgICAgICAgICAgICAg FWPcRTZjBVFsOKWsUUMxEO1OBKLjMWHfMFDjZIDaOW AgICAgICAgICAgICAgICAgICAgICAgICAgICAgICAgICAgICAgICAgICAgICAgICAgICAgICAgICAgIC BaBDOcPEXbGOMjTYSaPNDyNAXnADElYLAoBD8UDARlDWJoIMFfKUMmGAKgYJGdJACmXEVaSBVlZJIfVH AgICAgICAgICAgICAgICAgICAgICAgICAgICAgICAg KNBgSAIwRSPlABRxCPPqCKHdQWLxSJOnNJJaCANwTFBrAPUmDI2JLYSsZZNqIPByYMOxHBZnTERdQINe ICAgICAgICAgICAgICAgICAgICAgICAgICAgICAgICAgICAgICAgICAgICAgICAgICAgICAgICAgICAg NGCdBSUuMDBuUFMhHSOsUUOtNI6YDQAyFFAcSKZbQJ AgICAgICAgICAgICAgICAgICAgICAgICAgICAgICAgICAgICAgICAgICAgICAgICAgICAgICAgICAgIC WyOWKwFHDhYZQyMAZsWPTrAXQaWSPqDXYrJUJgRV6YARKvQJIaETXyLEHtWZWmRHRjVLRaQIDsHISoZI AgICAgICAgICAgICAgICAgICAgICAgICAgICAgICAg BKObHTDyOENnLXYlNBRzMJLeKYScQRRoLWDeGLJiAWDtZALrMDChMR9ZMCOjVQOyNZYzTOLgGZBeFSPd ICAgICAgICAgICAgICAgICAgICAgICAgICAgICAgICAgICAgICAgICAgICAgICAgICAgICAgICAgICAg EWXrLFWtICGqACCcYRUuPFPxVIQgUY4MCX23sGUey7 S9CVMdDL7olno/Tq7SDYbprfRuiEWtPU7YWzIbFM1jmt0UGpCpDY3kkg4LJXkYCwYtW3I7yEFmSCKjBG SSOrSoZ09rZSveUm83EMybIDZbHuUgXAm9Re1GUfImS7hvEHWpXwW4VBQqVvA7GYGfPxRlNTswGE0Td2 VudCAyDQo+Sk6SZJ0uw1RkUDcrKCOxUH4rin2LSUbS DeUhW1HxcpO4KUSbWZFbPc6TBIFbAJQfbJWrOMAjEBFCEeCtA6MnbD33ODLGXs6+DQplbmRvYmoNCjIw JZAuq6YzEOz6YQ6JADAoLYm6qZFgZ0TvloX1lPOpOA7rgKAnPpwfMTWmhEUJwMxgvsJTcxGknvfaGDDt MKPhNz5bCT1lEVHvLAN6OhMdPEQYNU6BAPCoUPMflM EpVBMlSFKIDV7FHCjwNET0GYRqxqYlpEAmQNqlRN5GQPXxsmVnGAllSRJZRBi+Mk2SXN4ak7BuHYyuNA IbPB3jhp5RHBpSWkRgP1R8eDAuC8F8PVaoDi9PRUAeCLHjSGvqRMKDEGgqDE0DQS8bhiF3CA0HpYReDN EbIKDbtZDyQEd5D50evGJjKBgaLK9YMMY+Magdiel+Pg0K ITMtQLLwJAEhZlIfXGXHOnLoT8TwD7RXn5NxN7HsNG63xAsoewJxFPixIW2WDO7gLTOpJPUHNO2WaYMc fP6qikFkUKIbXPGSCiEtX93mlNRnIZIbGOT3GOWjHm8EKELlF5AzqtFrhUrscdIjBZVmXFJRJQ8GLIdw irUshSGobEksTT09sMdcUT9MBm3VIlWjHJ6hhx3NfE OgUv2HLSPpWd7TYUCtDRBbNABfREA1SNCkPnMxHIjtOBYtXHXoZRY4RAFzCMSfTR0OIrReKRXlTDDkKn EsGTGkFTRfmu2HSYLmRWIrNvZjKrEkWNWnINSzEYjtQFMuYZRbXCL2GCOnNJRuJX7CQrEbGJKvJLBpGG DqUBNiKWXngs7URDVeNRKzVdRyIUXoSPZsRFQbGYqu NHThSSI0ZLm4OYCoROVvAK9CFjUkXGMxJEZjXUOiKAKoCANooo0KJQWrKGBqEzW1SEPoNSPqDPOvLRac BJQeJFQ9TnR7RLFyZAUfTR7MPjXkQGIdWVv5PstfJKTrYCFbob7RUPVfNOAbJPT0IxWgSBHsYPVeFAwg ICMaFXN5Rhw5WSEqTGHsAV8MYiZzHMSdJCm0ZSrmRQ PwJYQxwt2EPJFtNYItXAh1DBKwCLZyUIQtTUboRAOqNOJrIBF4NUZnSPPaMO3FVoFoNGCmKWXkTJFnDG UtKHNqgl5NCAAfPIGlPKV8AqZaAKEfNJWcVHbdNEWqMONhZOD8TAXhUPVgIW9JYwFuBCJlWXLaQgtyLC ObDLXlvx6MHFXaZELpZuOpYSKiKAQgWVXzOCy4ddUg yBSrWXv7NC8PA1ErodYlHcAKTx9Fb445CCUkNVAzEh4WQ0sdMp5sMSXgRLOXYg7FIYh0Qyy0JXQlNKr5 XpY8ZUB9ILJkVNzkE2J2E1PxPiO5JCS+TUgqLUA5AjN5XeoiNNtmONy6OXG5F6P8IqhyQwV2USO4PX7f XSANCj4+UYwpxGTwkYboITBYWuJiZBdmYFfhPFAJOi3X ID Date Data Source [id number] 05/17/2019 09:53:47 AM [facility] [place] INJECTION RADIOACTIVE TRACER - SENTIN AL NODEFINAL RESULTInterpreted by:Rena Bunch MDEXAM: Right Breast lymphoscintigraphy for sentinel lymph node biopsy - injection CLINICAL HISTORY: Right breast breast cancer.PROCEDURE:After sterile preparation of the skin around the area of the areola, an intradermal injection of 524 uCi of Lymphoseek was given in the superior periareolar region.No Gamma camera imaging was obtained. This document has been electronically signed by Rena Bunch MD on 05/17/2019 9:51 AM Name Value Range Interpretation Code Description Data Jerica rce(s) Supporting Document(s) ID Date Data Source [id number] 05/19/2019 04:23:00 PM [facility] Surgical Pathology Report See Addendum B elowName: MITRA TAYLOR MMRN: [id number] Number: [id number] Date: 05/17/2019 00:00Received Date: 05/17/2019 10:45Physician(s): SIERRA MINOR,SIERRA Elizabeth(s) ReceivedA: Breast lumpectomy, rightB: Stafford lymph node, right axillaryClinical HistoryMalignant neoplasm of right breast in female, estrogen receptor positive,unspecified site of breast. Part A: out of patient time - 0936, informalin time - 0937. Part B: out of patient time - 913, in formalintime - 914. Addendum 05/23/2019 Per clinician's request, immunohistochemistry for receptors was performedand the results are as follows:ESTROGEN RECEPTORS: Positive (Weak to moderate staining, 30%).PROGESTERONE RECEPTORS: Positive (Weak to moderate staining, 40%).HER2: Negative (0)./pmw Addendum Electronically Signed By: Shey Washington M.D. 05/23/2019 DiagnosisA) BREAST, RIGHT, EXCISION: INVASIVE DUCTAL CARCINOMA. MARGINSNEGATIVE. (See Synoptic Report.)B) LYMPH NODES (6), RIGHT AXILLA, EXCISION: NEGATIVE FOR MALIGNANCY. (See Microscopic Description.)Synoptic Report:Specimen Procedure: Excision (less than total mastectomy) Specimen Laterality: RightTumor Histologic Type: Invasive carcinoma of no special type (invasiveductal carcinoma, not otherwise specified) Histologic Grade (Mari Histologic Score): [place] Score Glandular (Acinar) / Tubular Differentiation: Score 3 Nuclear Pleomorphism: Score 3 Mitotic Rate: Score 3 Overall Grade: Grade 3 (scores of 8 or 9) Tumor Size: 35 x 25 x 18 mm Tumor Focality: Single focus of invasive carcinoma Ductal Carcinoma In Situ (DCIS): Present Architectural Patterns: Comedo, Cribriform, Solid Nuclear Grade: Grade III (high) Necrosis: Present, central (expansive "comedo" necrosis) Lymphovascular Invasion: Not identified Treatment Effect: No known presurgical therapyMargins Invasive Carcinoma Margins: Uninvolved by invasive carcinoma Distance from Closest Margin (Millimeters): Less than 1 mm Closest Margin: Anterior Distance from Other Margins Posterior Margin (Millimeters): 3.5 mm Superior Margin (Millimeters): 1 mm DCIS Margins: Uninvolved by DCIS Distance from Closest Margin (Millimeters): 3 mm Closest Margin: Anterior Distance from Other Margins Posterior Margin (Millimeters): 3.5 mmLymph Nodes Regional Lymph Nodes: Uninvolved by tumor cells Number of Lymph Nodes Examined: 6 Number of Stafford Nodes Examined: 6Pathologic Stage Classification (pTNM, AJCC 8th Edition) Primary Tumor (pT): pT2 Regional Lymph Nodes (pN) Category (pN): [id number] Studies Estrogen Receptor (ER): Positive (percentage) - 30% Progesterone Receptor (PgR): Positive (percentage) - 30% HER2 (by immunohistochemistry): Negative (Score 1+) Testing Performed on [facility] April 2018 Annual Release Rebecca Alston MD ; Resident PathologistElectronically Signed By Shey Washington M.D., Attending Pathologist05/19/2019 16:23:03Processed at [facility] at [facility], [address] [place] [address]. The attending pathologist named aboveattests that he/she has personally reviewed the relevant preparation(s)for the specimen, performed microscopic examination when indicated, andrendered the final diagnosis. Gross DescriptionThe specimen is received in two parts.Part A is received in formalin labeled with the patient's name "Sarita" and "right breast lumpectomy". It consists of a 5.5 cm fromlateral to medial, 4.0 cm from superior to inferior, 3.2 cm fromsuperficial to deep, oriented, ovoid, yellow, soft portion of fattytissue. Sutures are designated by the surgeon as short - superficial,medium - medial, long - lateral, two tails - inferior. The specimen isinked as follows: superior - blue, inferior - green, superficial - gold,and deep - black. The specimen is serially sectioned from lateral tomedial into eight levels. A 3.5 x 2.5 x 1.8 cm ill-defined, pink-garcia,firm lesion is identified in levels 1 - 8 which comes to within 0.1 cm ofthe superior and superficial margins, 0.4 cm of the deep margin, 0.9 cm ofthe inferior margin, 0.5 cm of the medial margin, and within 0.1 cm of thelateral margin. A 0.2 x 0.1 cm coiled metallic biopsy marker iside ntified in the superficial periphery of the lesion. The remaining cutsurfaces are predominantly yellow, homogeneous adipose tissue and minimalwhite-pink, dense fibrous tissue. Counter Cutter sections to include theentire lesion are submitted sequentially from lateral to medial asfollows:A1,2 -entire cruciate lateral margin with lesionA3 -community representative level 1 with lesionA4 -community representative level 2 with lesion A5-7 -community representative level 3 with lesion and biopsy marker site in A5A8,9 -community representative level 4 with tbumdmF14,11 -entire level 5 with asvrwkF73,13 -community representative level 6 with xcxhgcU19-95 -entire level 7 with lesion A17 -community representative level 8 with jlohhaT00 -community representative cruciate medial margin Part B is received in formalin labeled with the patient's name "Sarita" and "right axillary sentinel node". It consists of a 5.5 x 4.0 x2.0 cm aggregate of irregular, yellow, soft fatty tissue fragments. Multiple lymph nodes are grossly identified, 0.5 cm - 2.3 cm in greatestdimension. The largest lymph node displays yellow, fatty cut surfaces. The lymphoid tissue is entirely submitted in three blocks as follows: B1,2 -multiple whole lymph nodesB3 -one bisected lymph nodeCTC/pws Microscopic DescriptionWhen six or more lymph nodes are removed, the modifier "sentinel" is notused.This report may include one or more immunohistochemical stain results thatuse analyte specific reagents. All positive and negative controls havebeen reviewed by the attending pathologist and are satisfactory. The testswere developed and their performance characteristics determined by [facility] Pathology department. They have not been cleared or approved by the USFood and Drug Administration. The FDA has determined that such clearanceor approval is not necessary. Name Value Range Interpretation Code Description Data Jerica rce(s) Supporting Document(s) ID Date Data Source [id number] 05/13/2019 08:32:00 AM EST [facility] Surgical Pathology ReportName: Carol TAYLOR MMRN: [id number] Number: [id number] Date: 05/12/2019 00:00Received Date: 05/12/2019 09:40Physician(s): SIERRA MINOR MARY ELLENSpecimen(s) ReceivedA: Slides received for consultationClinical HistorySecond opinion.DiagnosisBREAST, RIGHT, NEEDLE BIOPSY: INVASIVE DUCTAL CARCINOMA..GRADE: 3. VASCULAR INVASION: Not identified. DCIS: Absent. ESTROGEN RECEPTORS: Positive (weak to moderate, 30%) per CO20-65.PROGESTERONE RECEPTORS: Positive (weak to moderate, 30%) per CO20-65.HER2: Negative (1+) per CO20-65.Reported at [facility], [facility], [address] [place] [address]. Electronically Signed By Shey Washington M.D., Attending Pathologist05/13/2019 08:32:13 Unless 'gross-only' is specified, the final diagnosis is based on amicroscopic examination of community representative sections of tissue.Gross DescriptionReceived from [facility] in [place], [place] are 2 H and Estained slides labeled [id number] with the corresponding pathology report./jrsThis report may include one or more immunohistochemical stain results thatuse analyte specific reagents. All positive and negative controls havebeen reviewed by the attending pathologist and are satisfactory. The testswere developed and their performance characteristics determined by [facility] Pathology department. They have not been cleared or approved by the USFood and Drug Administration. The FDA has determined that such clearanceor approval is not necessary. Name Value Range Interpretation Code Description Data Jerica rce(s) Supporting Document(s) ID Date Data Source [id number] 05/10/2019 10:05:53 AM [facility] Name Value Range Interpretation Code Description Data Jerica rce(s) Supporting Document(s) Progress Note [facility] URZINd1lQeTXUeXn00/TYBzjHBStc7ChQLkbYUu2UYqsFPIxL7XwAYT2pF0uHXA3SLzUXdIdYxZsPcZ3 lbm [file] AgICAgICAgICAgICAgICAgICAgICAgICAgICAgICAgICAgICAgICAgICAgICAgICANCiAgICAgICAgIC AgICAgICAgICAgICAgICAgICAgICAgICAgICAgICAg ICAgICAgICAgICAgICAgICAgICAgICAgICAgICAgICAgICAgICAgICAgICAgICAgICAgICAgICAgICAN CiAgICAgICAgICAgICAgICAgICAgICAgICAgICAgICAgICAgICAgICAgICAgICAgICAgICAgICAgICAg ICAgICAgICAgICAgICAgICAgICAgICAgICAgICAgIC AgICAgICAgICANCiAgICAgICAgICAgICAgICAgICAgICAgICAgICAgICAgICAgICAgICAgICAgICAgIC AgICAgICAgICAgICAgICAgICAgICAgICAgICAgICAgICAgICAgICAgICAgICAgICAgICANCiAgICAgIC AgICAgICAgICAgICAgICAgICAgICAgICAgICAgICAg ICAgICAgICAgICAgICAgICAgICAgICAgICAgICAgICAgICAgICAgICAgICAgICAgICAgICAgICAgICAg ICANCiAgICAgICAgICAgICAgICAgICAgICAgICAgICAgICAgICAgICAgICAgICAgICAgICAgICAgICAg ICAgICAgICAgICAgICAgICAgICAgICAgICAgICAgIC AgICAgICAgICAgICANCiAgICAgICAgICAgICAgICAgICAgICAgICAgICAgICAgICAgICAgICAgICAgIC AgICAgICAgICAgICAgICAgICAgICAgICAgICAgICAgICAgICAgICAgICAgICAgICAgICAgICANCiAgIC AgICAgICAgICAgICAgICAgICAgICAgICAgICAgICAg ICAgICAgICAgICAgICAgICAgICAgICAgICAgICAgICAgICAgICAgICAgICAgICAgICAgICAgICAgICAg ICAgICANCiAgICAgICAgICAgICAgICAgICAgICAgICAgICAgICAgICAgICAgICAgICAgICAgICAgICAg ICAgICAgICAgICAgICAgICAgICAgICAgICAgICAgIC AgICAgICAgICAgICAgICANCiAgICAgICAgICAgICAgICAgICAgICAgICAgICAgICAgICAgICAgICAgIC AgICAgICAgICAgICAgICAgICAgICAgICAgICAgICAgICAgICAgICAgICAgICAgICAgICAgICAgICANCj w/iWJsU1hmjSFjgdZ0E8ulAm0NTr5VQK3so1AgUDYu ZCyfjrHgRabVZeBkQCLpOfsDMje1GHotMP3HoUBeJ8PsL9VbALtqRK7IHNEhKADkiTCfTETqXXZcVrJ8 QRAyZHkzNC4IqTTaGJekOMMoXGLdVbHzFTZdOKZaDNIzZJCxIDUJPZVeGIMrNrXyXIVxCJYwAEbjWZHU BQE5KXHqMfGdYImcBG8Rg7PkoMQ2XDo+To2IJG7au4 FkNOf3KwPxCY0psx8KEWtFYfPeZ3IybyM5TBLtDDRfTu1KQEZlXDPjsAT3VpWrDYSANeZqK5MepQ52RV ENCj4+RMcxlqEnCstLXlMfHKWbx6YcFQk6MA9CNDMfRLe3uPRbMXNsE7Jpy7JaOo03SHDqGslfRGTerL LYzYrrigKNicWcpjfyZCHqAVPuHl3aPz0tOSAbMAJy HcAoLEKANI2RJIWoSGGteRZlGIIfERLKZM6CCRkzJXZ1MHOtbbLdlFPyVJncSP9XWUPailRyAZWcOAEU DQo+Fj1DDS6sw2AxAGm2OOYiVT0hzz6OKZmSKnVpN6V8mJSuX4P8FFjsCf8YCCBtMUKjYWGaQOJJDCzx GE6JZM4jdhS3GX1KxDSnTUKcZUXbfPLfKNb6F43ywW ZcMKrxMQ9FKVK+Magdiel+Th7DDJKmLTSmYJRwIhJuFVPFOqWkK9AhX1QNf3IyQ5GxJV09rKyjltUzXKvzNH 9SRG7oCZKeNOGQQX7TvFOzuW1ngoW3XqOaSIVMMcXpG98wpOEwCJXaNZXkQUOsPv0WTTLxP7VzfsFtmQ ftcqPeODIuGNFGKO4CIQzkqwUimZGtoDxxGG27dMnw RA1DDw0GXuQeDC1tqa0VqJJnSd4WLUM3RY5UCCUuFSRfCKQcWOV9BNHhUjIwTLhmJSAfVXSkGQF6TBGi UOPyIA9NRsCwSWWwHTJ0RINvWWOdMLFqmo5KXNTbVIP4UwX5DJQyMDCgWMZlWQkyYHCfDIXbRWU9WQAo XAAuDO8JAlXbTPGpEJRrTiIyNPPkKRXjqu0LUABlGS OuPCB8GMEsKBTlAYGeDYccNFTkJAX1FHBmUPUvEEUgMI4RXnDrGMPkXFvmFiXeOMJnFGCphe4RFWRgZH TeRCA1FrMtSQDkUSAfEQnvCJTtKNJnRwP5SKCkQATnHH1SCcXgPHQuVOE1KFHhHDKpDMQmer8EUDKuNW LqPji0TYOcUNUnPEOxHPtwDXRwZHF2AkP2VYKjJUXp BB8UTsJkFPVnJKS6QiUuWGGfSJAvtx4JKRYxJAZiDWZ8VQEzCEDfWNPhFGgnVPLyFQA8HyNbRRGtJEXc KN4RMmExYCBpFdE4BvBjDDJsJZCabc8SARWbZGDgMvl2OiNsISOvLLCdTRxzMQZxGYV6Jux6NWDbCXLm NG8VMrRaCADaAjW2TOPrNUByRFHoft4PUSUgAKLsBi D8NYIlUXMfSHMjAHjfUGPaZOT8RaI0FSChLJYsAH3LZnYxBBDzTxH1CGJwZIEgAUWppx0WPNUsTFDvYp f2LWNjCLQeNPLmQZdnDXChCKL6JDDpCFNgBESdHI9NYhRxMLMoNxnoLPtrIEAyCEUvdl9PPTHbYMVfAI ufYCWsEJFsNXCqHXmdQZDmWGJkONX3WYJmXFLvHK9S WbOoDJUkHYOkYWPhUZSdBSIzsu4ROOXkOTS0HEDzXlNjGQKtAVMqCQwvNUHvVJZmRsR3KQNwBWYuPF4O BwEdPMXyOYY7NRToXHTvTLYodu8ZZZJjEZD5QUd8KrLtVSQbEYNnFBlxIPDkABSzKTGoLSEwGAVtDJ7W GxWkJVFwBRA7IPTcONBbODQvlx2SLWMgLAV6WnK2IV TyNOMeEYZpHAzsNCKfFVUmYfwjTCYgFNWyUD0NFfNvBJAbXVRfGZNdSSXcVRYdsd7AADLcIXB6SRAnJo OsONYrNNUsTHonLIOpIOJ2SEedYHQvFAGuEV2XBcNqDRTjPFNoVatlWVOoUSKlcy2MBEKtGKE9KhInZH RxVKNnRGEeZVpuWJCdQYB5HIv5UFLjTTYaSS2UWxCi DNIaLGI1TdJtTTUvDQZnqh5XaZXayFucsi3HDOtZRr4VmPibOEY3OUkzNq4xfAY0GLOrAHLIMb2FsjMq DQLpRFDCNLvnYRLnWRQvYZM3XmBhGJQbKGW5WAFcDZzkDYQ0AIPaRlM3ToW4BtS0DLFxFxTgVuGsMcH4 DcbgFUAyULV1MIJ9UXVhQwquCLL+JA2lMKf+Te8Ce6OtikW9agBuJZr2Ysu1MU4HCXSLP6NYZp== ID Date Data Source [id number] 04/13/2019 12:55:00 PM [facility] Surgical Pathology ReportName: Carol TAYLOR MMRN: [id number] Number: [id number] Date: 04/12/2019 00:00Received Date: 04/12/2019 10:20Physician(s): JOEY SCOTT YILIN MDSpecimen(s) ReceivedA: Material received for consultationClinical HistoryRight breast mass. Outside report ([id number]): Infiltrating ductalcarcinoma, grade 3 (of 3). Please do [place], [place], Her2 by IHC; 2+ reflex toFISH.DiagnosisIMMUNOHISTOCHEMISTRY, RIGHT BREAST, CORE BIOPSY (OUTSIDE CASE [id number];04/06/2019): ESTROGEN RECEPTORS: Positive (Weak to moderate staining in 30% oftumor cells). PROGESTERONE RECEPTORS: Positive (Weak to moderate staining in 30%of tumor cells). HER2: Negative (1+). Electronically Signed By Cassius Santiago M.D., Attending Pathologist04/13/2019 12:55:08Unless 'gross-only' is specified, the final diagnosis is based on amicroscopic examination of community representative sections of tissue.Gross DescriptionReceived [facility] [place], [place], is one paraffinblock labeled [id number], with the corresponding pathology report./jrsThis report may include one or more immunohistochemical stain results thatuse analyte specific reagents. All positive and negative controls havebeen reviewed by the attending pathologist and are satisfactory. The testswere developed and their performance characteristics determined by [facility] Pathology department. They have not been cleared or approved by the USFood and Drug Administration. The FDA has determined that such clearanceor approval is not necessary. Name Value Range Interpretation Code Description Data Jerica rce(s) Supporting Document(s) Procedure Social History Code Duration Value Status Description Data Source(s ) Smoking 01/17/2020 12:00:00 AM EDT Unknown if ever smoked comp leted Unknown if ever smoked [facility] ([facility]) Smoking 12/29/2019 12:00:00 AM EDT Unknown if ever smoked comp leted Unknown if ever smoked [facility] ([facility]) Smoking 12/26/2019 12:00:00 AM EDT Former Smoker completed Former Smoker eCW1 ([facility]) Smoking 12/26/2019 12:00:00 AM EDT Former Smoker completed Former Smoker eCW1 ([facility]) Smoking 12/26/2019 12:00:00 AM EDT Former Smoker completed Former Smoker eCW1 ([facility]) Smoking 12/26/2019 12:00:00 AM EDT Former Smoker completed Former Smoker eCW1 ([facility]) Smoking 12/26/2019 12:00:00 AM EDT Former Smoker completed Former Smoker eCW1 ([facility]) Smoking 12/26/2019 12:00:00 AM EDT Former Smoker completed Former Smoker eCW1 ([facility]) Smoking 12/26/2019 12:00:00 AM EDT Former Smoker completed Former Smoker eCW1 ([facility]) Smoking 12/26/2019 12:00:00 AM EDT Former Smoker completed Former Smoker eCW1 ([facility]) Smoking 12/26/2019 12:00:00 AM EDT Former Smoker completed Former Smoker eCW1 ([facility]) Smoking 12/26/2019 12:00:00 AM EDT Former Smoker completed Former Smoker eCW1 ([facility]) Alcohol intake 12/22/2019 12:00:00 AM EDT Ex-drinker (finding) comp leted Ex- drinker (finding) [facility] Tobacco use and exposure 12/22/2019 12:00:00 AM EDT Former user co mpleted Former user [facility] Smoking 12/22/2019 12:00:00 AM EDT Former smoker completed Former smoker [facility] Smoking 12/20/2019 12:00:00 AM EDT Unknown if ever smoked comp leted Unknown if ever smoked [facility] ([facility]) Smoking 11/25/2019 12:00:00 AM EDT Unknown if ever smoked comp leted Unknown if ever smoked [facility] ([facility]) Alcohol intake 10/21/2019 12:00:00 AM EDT Ex-drinker (finding) comp leted Ex- drinker (finding) [facility] Smoking 09/22/2019 12:00:00 AM EDT Former Smoker completed Former Smoker eCW1 ([facility]) Smoking 09/22/2019 12:00:00 AM EDT Former Smoker completed Former Smoker eCW1 ([facility]) Smoking 09/20/2019 12:00:00 AM EDT Unknown if ever smoked comp leted Unknown if ever smoked [facility] ([facility]) Alcohol intake 09/13/2019 12:00:00 AM EDT Ex-drinker (finding) comp leted Ex- drinker (finding) [facility] Smoking 09/13/2019 12:00:00 AM EDT Former smoker completed Former smoker [facility] Smoking 09/08/2019 12:00:00 AM EDT Former Smoker completed Former Smoker eCW1 ([facility]) Alcohol intake 09/06/2019 12:00:00 AM EDT Ex-drinker (finding) comp leted Ex- drinker (finding) [facility] Smoking 09/06/2019 12:00:00 AM EDT Former smoker completed Former smoker [facility] Smoking 09/02/2019 12:00:00 AM EDT Unknown if ever smoked comp leted Unknown if ever smoked [facility] ([facility]) Smoking 08/25/2019 12:00:00 AM EDT Unknown if ever smoked comp leted Unknown if ever smoked [facility] ([facility]) Smoking 08/18/2019 12:00:00 AM EDT Unknown if ever smoked comp leted Unknown if ever smoked [facility] ([facility]) Smoking 08/04/2019 12:00:00 AM EDT Unknown if ever smoked comp leted Unknown if ever smoked [facility] ([facility]) Alcohol intake 08/02/2019 12:00:00 AM EDT Current drinker of al cohol (finding) completed Current drinker of alcohol (finding) [facility] Smoking 08/02/2019 12:00:00 AM EDT Former smoker completed Former smoker [facility] Smoking 07/28/2019 12:00:00 AM EDT Unknown if ever smoked comp leted Unknown if ever smoked [facility] ([facility]) Smoking 07/06/2019 12:00:00 AM EDT Unknown if ever smoked comp leted Unknown if ever smoked [facility] ([facility]) Smoking 06/23/2019 12:00:00 AM EDT Unknown if ever smoked comp leted Unknown if ever smoked [facility] ([facility]) Smoking 06/17/2019 12:00:00 AM EDT Unknown if ever smoked comp leted Unknown if ever smoked [facility] ([facility]) Smoking 06/02/2019 12:00:00 AM EDT Unknown if ever smoked comp leted Unknown if ever smoked [facility] ([facility]) Smoking 05/25/2019 12:00:00 AM EST Unknown if ever smoked comp leted Unknown if ever smoked [facility] ([facility]) Alcohol intake 05/17/2019 12:00:00 AM EST Current drinker of al cohol (finding) completed Current drinker of alcohol (finding) [facility] Smoking 05/17/2019 12:00:00 AM EST Former smoker completed Former smoker [facility] Alcohol intake 05/10/2019 12:00:00 AM EST Current drinker of al cohol (finding) completed Current drinker of alcohol (finding) [facility] Smoking 05/10/2019 12:00:00 AM EST Former smoker completed Former smoker [facility] Alcohol intake 05/09/2019 12:00:00 AM EST Current drinker of al cohol (finding) completed Current drinker of alcohol (finding) [facility] Smoking 05/09/2019 12:00:00 AM EST Former smoker completed Former smoker [facility] Smoking 05/06/2019 12:00:00 AM EST Unknown if ever smoked comp leted Unknown if ever smoked [facility] ([facility]) Smoking 04/21/2019 12:00:00 AM EST Unknown if ever smoked comp leted Unknown if ever smoked [facility] ([facility]) Smoking 04/20/2019 12:00:00 AM EST Unknown if ever smoked comp leted Unknown if ever smoked [facility] ([facility]) Smoking 04/01/2019 12:00:00 AM EST Unknown if ever smoked comp leted Unknown if ever smoked [facility] ([facility]) Smoking 03/31/2019 12:00:00 AM EST Unknown if ever smoked comp leted Unknown if ever smoked [facility] ([facility]) Smoking 03/22/2019 12:00:00 AM EST Unknown if ever smoked comp leted Unknown if ever smoked [facility] ([facility]) Smoking 02/22/2019 12:00:00 AM EST Unknown if ever smoked comp leted Unknown if ever smoked [facility] ([facility]) Vital Signs ID Date Data Source UNK Name Value Range Interpretation Code Description Data Source(s) Diastolic blood pressure 58 mm[Hg] 58 mm[Hg] eCW1 ([facility]) Systolic blood pressure 122 mm[Hg] 122 mm[Hg] e CW1 ([facility]) Body temperature 97.1 [degF] 97.1 [degF] eCW1 ( [facility]) Respiratory rate 18 /min 18 /min eCW1 ([facility]) Heart rate 98 /min 98 /min eCW1 ([facility]) Body mass index (BMI) [Ratio] 38.94 kg/m2 38.94 kg/m2 W1 ([facility]) Body height 65 [in_i] 65 [in_i] eCW1 ([facility]) Body weight 234 [lb_av] 234 [lb_av] eCW1 ([facility]) Diastolic blood pressure 0 mm[Hg] Normal (applies to non-numeric results) 0 mm[Hg] [facility] ([facility]) Systolic blood pressure 0 mm[Hg] Normal (applies t o non-numeric results) 0 mm[Hg] [facility] ([facility]) Body mass index (BMI) [Ratio] 0.00 kg/m2 No rmal (applies to non-numeric results) 0.00 kg/m2 [facility] ([facility]) Body weight Measured 0.00 lbs Normal (applies to n on-numeric results) 0.00 lbs [facility] ([facility]) Body height 0.00 in Normal (applies to non-numeric resu lts) 0.00 in [facility] ([facility]) Respiratory rate 20 /min 20 /min [facility] ( [facility], ) Heart rate 80 /min 80 /min [facility] ([facility], ) Diastolic blood pressure 84 mm[Hg] 84 mm[Hg] [facility] ([facility], ) Systolic blood pressure 124 mm[Hg] 124 mm[Hg] M EDENT ([facility]) [place] body weight 125 [lb_av] 125 [lb_av] MEDEN T ([facility]) Body mass index (BMI) [Ratio] 39.1 kg/m2 39.1 k g/m2 [facility] ([facility]) Body weight 235.00 [lb_av] 235.00 [lb_av] MEDEN T ([facility], ) Body height 65 [in_i] 65 [in_i] [facility] ([facility], ) 5'5" Respiratory rate 16 /min 16 /min [facility] ( [facility], ) Heart rate 80 /min 80 /min [facility] ([facility], ) Diastolic blood pressure 84 mm[Hg] 84 mm[Hg] [facility] ([facility], ) Systolic blood pressure 124 mm[Hg] 124 mm[Hg] M EDENT ([facility], ) Diastolic blood pressure 80 mm[Hg] 80 mm[Hg] eCW1 ([facility]) Systolic blood pressure 124 mm[Hg] 124 mm[Hg] e CW1 ([facility]) Body temperature 97.0 [degF] 97.0 [degF] eCW1 ( [facility]) Respiratory rate 18 /min 18 /min eCW1 ([facility]) Heart rate 105 /min 105 /min eCW1 ([facility]) Body mass index (BMI) [Ratio] 42.10 kg/m2 42.10 kg/m2 W1 ([facility]) Body height 65 [in_i] 65 [in_i] eCW1 ([facility]) Body weight 253.0 [lb_av] 253.0 [lb_av] eCW1 [facility] Diastolic blood pressure 0 mm[Hg] Normal (applies to non-numeric results) 0 mm[Hg] [facility] ([facility]) Systolic blood pressure 0 mm[Hg] Normal (applies t o non-numeric results) 0 mm[Hg] [facility] ([facility]) Body mass index (BMI) [Ratio] 0.00 kg/m2 No rmal (applies to non-numeric results) 0.00 kg/m2 [facility] ([facility]) Body weight Measured 0.00 lbs Normal (applies to n on-numeric results) 0.00 lbs [facility] ([facility]) Body height 0.00 in Normal (applies to non-numeric resu lts) 0.00 in [facility] ([facility]) Diastolic blood pressure 80 mm[Hg] 80 mm[Hg] eCW1 ([facility]) Systolic blood pressure 138 mm[Hg] 138 mm[Hg] e CW1 ([facility]) Body temperature 95.6 [degF] 95.6 [degF] eCW1 ( [facility]) Respiratory rate 20 /min 20 /min W1 ([facility]) Heart rate 136 /min 136 /min W1 ([facility]) Body mass index (BMI) [Ratio] 40.13 kg/m2 40.13 kg/m2 W1 ([facility]) Body height 65 [in_us] 65 [in_us] eCW1 ([facility]) Body weight Measured 241.2 [lb_av] 241.2 [lb_av ] eCW1 ([facility]) Diastolic blood pressure 0 mm[Hg] Normal (applies to non-numeric results) 0 mm[Hg] [facility] ([facility]) Systolic blood pressure 0 mm[Hg] Normal (applies t o non-numeric results) 0 mm[Hg] [facility] Body mass index (BMI) [Ratio] 0.00 kg/m2 No rmal (applies to non-numeric results) 0.00 kg/m2 [facility] ([facility]) Body weight Measured 0.00 lbs Normal (applies to n on-numeric results) 0.00 lbs [facility] ([facility]) Body height 0.00 in Normal (applies to non-numeric resu lts) 0.00 in [facility] ([facility]) Body mass index (BMI) [Ratio] 41.4 kg/m2 41.4 k g/m2 [facility] ([facility]) Body height 65 [in_i] 65 [in_i] MEDENT ([facility], [facility]) 5'5" Body weight 249.00 [lb_av] 249.00 [lb_av] MEDEN T ([facility], [facility]) Body temperature 98.5 [degF] 98.5 [degF] [facility] ([facility], [facility]) Oxygen saturation in Arterial blood by Pulse oximetry 99 % 99 % [facility] ([facility], [facility]) Respiratory rate 16 /min 16 /min [facility] ( [facility], [facility]) Heart rate 99 /min 99 /min MEDENT ([facility], [facility]) Diastolic blood pressure 72 mm[Hg] 72 mm[Hg] [facility] ([facility], [facility]) Systolic blood pressure 140 mm[Hg] 140 mm[Hg] M EDENT ([place] [facility], [facility]) Diastolic blood pressure 80 mm[Hg] 80 mm[Hg] eCW1 ([facility]) Systolic blood pressure 134 mm[Hg] 134 mm[Hg] e CW1 ([facility]) Body temperature 98.1 [degF] 98.1 [degF] eCW1 ( [facility]) Respiratory rate 18 /min 18 /min eCW1 ([facility]) Heart rate 97 /min 97 /min eCW1 ([facility]) Body mass index (BMI) [Ratio] 40.93 kg/m2 40.93 kg/m2 eCW1 ([facility]) Body height 65 [in_us] 65 [in_us] eCW1 ([facility]) Body weight Measured 246 [lb_av] 246 [lb_av] eC W1 ([facility]) Diastolic blood pressure 0 mm[Hg] Normal (applies to non-numeric results) 0 mm[Hg] [facility] ([facility]) Systolic blood pressure 0 mm[Hg] Normal (applies t o non-numeric results) 0 mm[Hg] [facility] ([facility]) Body mass index (BMI) [Ratio] 0.00 kg/m2 No rmal (applies to non-numeric results) 0.00 kg/m2 [facility] ([facility]) Body weight Measured 0.00 lbs Normal (applies to n on-numeric results) 0.00 lbs [facility] ([facility]) Body height 0.00 in Normal (applies to non-numeric resu lts) 0.00 in [facility] ([facility]) Diastolic blood pressure 84 mm[Hg] 84 mm[Hg] eCW1 ([facility]) Systolic blood pressure 122 mm[Hg] 122 mm[Hg] e CW1 ([facility]) Body temperature 98.3 [degF] 98.3 [degF] eCW1 ( [facility]) Respiratory rate 18 /min 18 /min eCW1 ([facility]) Heart rate 103 /min 103 /min eCW1 ([facility]) Body mass index (BMI) [Ratio] 40.77 kg/m2 40.77 kg/m2 eCW1 ([facility]) Body height 65 [in_us] 65 [in_us] eCW1 ([facility]) Body weight Measured 245 [lb_av] 245 [lb_av] eC W1 ([facility]) Diastolic blood pressure 78 mm[Hg] 78 mm[Hg] eCW1 ([facility]) Systolic blood pressure 118 mm[Hg] 118 mm[Hg] e CW1 ([facility]) Body temperature 97.4 [degF] 97.4 [degF] eCW1 ( [facility]) Respiratory rate 18 /min 18 /min eCW1 ([facility]) Heart rate 113 /min 113 /min eCW1 ([facility]) Body mass index (BMI) [Ratio] 41.36 kg/m2 41.36 kg/m2 eCW1 ([facility]) Body height 65 [in_us] 65 [in_us] eCW1 ([facility]) Body weight Measured 248.6 [lb_av] 248.6 [lb_av ] eCW1 ([facility]) Respiratory rate 16 /min 16 /min [facility] ( [facility], ) Heart rate 88 /min 88 /min [facility] ([facility], ) Diastolic blood pressure 80 mm[Hg] 80 mm[Hg] [facility] ([facility], ) Systolic blood pressure 140 mm[Hg] 140 mm[Hg] M EDENT ([facility], ) Diastolic blood pressure 74 mm[Hg] 74 mm[Hg] eCW1 ([facility]) Systolic blood pressure 127 mm[Hg] 127 mm[Hg] e CW1 ([facility]) Body temperature 97.8 [degF] 97.8 [degF] eCW1 ( [facility]) Respiratory rate 18 /min 18 /min eCW1 ([facility]) Heart rate 106 /min 106 /min eCW1 ([facility]) Body mass index (BMI) [Ratio] 41.6 kg/m2 41.6 k g/m2 eCW1 ([facility]) Body height 65 [in_us] 65 [in_us] eCW1 ([facility]) Body weight Measured 250 [lb_av] 250 [lb_av] eC W1 ([facility]) Diastolic blood pressure 0 mm[Hg] Normal (applies to non-numeric results) 0 mm[Hg] [facility] ([facility]) Systolic blood pressure 0 mm[Hg] Normal (applies t o non-numeric results) 0 mm[Hg] [facility] ([facility]) Body mass index (BMI) [Ratio] 0.00 kg/m2 No rmal (applies to non-numeric results) 0.00 kg/m2 [facility] ([facility]) Body weight Measured 0.00 lbs Normal (applies to n on-numeric results) 0.00 lbs [facility] ([facility]) Body height 0.00 in Normal (applies to non-numeric resu lts) 0.00 in [facility] ([facility]) Diastolic blood pressure 80 mm[Hg] 80 mm[Hg] eCW1 ([facility]) Systolic blood pressure 140 mm[Hg] 140 mm[Hg] e CW1 ([facility]) Body temperature 99.0 [degF] 99.0 [degF] eCW1 ( [facility]) Respiratory rate 18 /min 18 /min eCW1 ([facility]) Heart rate 102 /min 102 /min eCW1 ([facility]) Body mass index (BMI) [Ratio] 41.73 kg/m2 41.73 kg/m2 eCW1 ([facility]) Body height 65 [in_us] 65 [in_us] eCW1 ([facility]) Body weight Measured 250.8 [lb_av] 250.8 [lb_av ] eCW1 ([facility]) Diastolic blood pressure 84 mm[Hg] 84 mm[Hg] eCW1 ([facility]) Systolic blood pressure 136 mm[Hg] 136 mm[Hg] e CW1 ([facility]) Body temperature 98.0 [degF] 98.0 [degF] eCW1 ( [facility]) Respiratory rate 18 /min 18 /min eCW1 ([facility]) Heart rate 73 /min 73 /min eCW1 ([facility]) Body mass index (BMI) [Ratio] 41.1 kg/m2 41.1 k g/m2 eCW1 ([facility]) Body height 65 [in_us] 65 [in_us] eCW1 ([facility]) Body weight Measured 247 [lb_av] 247 [lb_av] eC W1 ([facility]) Diastolic blood pressure 80 mm[Hg] 80 mm[Hg] eCW1 ([facility]) Systolic blood pressure 124 mm[Hg] 124 mm[Hg] e CW1 ([facility]) Body temperature 97.4 [degF] 97.4 [degF] eCW1 ( [facility]) Respiratory rate 18 /min 18 /min eCW1 ([facility]) Heart rate 125 /min 125 /min eCW1 ([facility]) Body mass index (BMI) [Ratio] 40.73 kg/m2 40.73 kg/m2 eCW1 ([facility]) Body height 65 [in_us] 65 [in_us] eCW1 ([facility]) Body weight Measured 244.8 [lb_av] 244.8 [lb_av ] W1 ([facility]) Diastolic blood pressure 0 mm[Hg] Normal (applies to non-numeric results) 0 mm[Hg] [facility] ([facility]) Systolic blood pressure 0 mm[Hg] Normal (applies t o non-numeric results) 0 mm[Hg] [facility] ([facility]) Body mass index (BMI) [Ratio] 0.00 kg/m2 No rmal (applies to non-numeric results) 0.00 kg/m2 [facility] ([facility]) Body weight Measured 0.00 lbs Normal (applies to n on-numeric results) 0.00 lbs [facility] ([facility]) Body height 0.00 in Normal (applies to non-numeric resu lts) 0.00 in [facility] ([facility]) Diastolic blood pressure 2 mm[Hg] 2 mm[Hg] eCW1 ([facility]) Systolic blood pressure 158 mm[Hg] 158 mm[Hg] e CW1 ([facility]) Body temperature 98.1 [degF] 98.1 [degF] eCW1 ( [facility]) Respiratory rate 18 /min 18 /min eCW1 ([facility]) Heart rate 110 /min 110 /min eCW1 ([facility]) Body mass index (BMI) [Ratio] 40.43 kg/m2 40.43 kg/m2 eCW1 ([facility]) Body height 65 [in_us] 65 [in_us] eCW1 ([facility]) Body weight Measured 243 [lb_av] 243 [lb_av] eC W1 ([facility]) Diastolic blood pressure 82 mm[Hg] 82 mm[Hg] eCW1 ([facility]) Systolic blood pressure 140 mm[Hg] 140 mm[Hg] e CW1 ([facility]) Body temperature 97.8 [degF] 97.8 [degF] eCW1 ( [facility]) Respiratory rate 18 /min 18 /min eCW1 ([facility]) Heart rate 120 /min 120 /min eCW1 ([facility]) Body mass index (BMI) [Ratio] 40.43 kg/m2 40.43 kg/m2 eCW1 ([facility]) Body height 65 [in_us] 65 [in_us] eCW1 ([facility]) Body weight Measured 243 [lb_av] 243 [lb_av] eC W1 ([facility]) Body mass index (BMI) [Ratio] 41.4 kg/m2 41.4 k g/m2 [facility] ([facility], [facility]) Body height 65 [in_i] 65 [in_i] [facility] ([facility], [facility]) 5'5" Body weight 249.00 [lb_av] 249.00 [lb_av] MEDEN T ([facility], [facility]) Body temperature 98.0 [degF] 98.0 [degF] [facility] ([facility], [facility]) Oxygen saturation in Arterial blood by Pulse oximetry 99 % 99 % [facility] ([facility], [facility]) Respiratory rate 20 /min 20 /min [facility] ( [facility], [facility]) Heart rate 96 /min 96 /min [facility] ([facility], [facility]) Diastolic blood pressure 70 mm[Hg] 70 mm[Hg] [facility] ([facility], [facility]) Systolic blood pressure 120 mm[Hg] 120 mm[Hg] M EDENT ([place] [facility], [facility]) Diastolic blood pressure 0 mm[Hg] Normal (applies to non-numeric results) 0 mm[Hg] [facility] ([facility]) Systolic blood pressure 0 mm[Hg] Normal (applies t o non-numeric results) 0 mm[Hg] [facility] ([facility]) Body mass index (BMI) [Ratio] 0.00 kg/m2 No rmal (applies to non-numeric results) 0.00 kg/m2 [facility] ([facility]) Body weight Measured 0.00 lbs Normal (applies to n on-numeric results) 0.00 lbs [facility] ([facility]) Body height 0.00 in Normal (applies to non-numeric resu lts) 0.00 in [facility] ([facility]) Diastolic blood pressure 78 mm[Hg] 78 mm[Hg] eCW1 ([facility]) Systolic blood pressure 126 mm[Hg] 126 mm[Hg] e CW1 ([facility]) Body temperature 97.3 [degF] 97.3 [degF] eCW1 ( [facility]) Respiratory rate 18 /min 18 /min eCW1 ([facility]) Heart rate 127 /min 127 /min eCW1 ([facility]) Body mass index (BMI) [Ratio] 42.23 kg/m2 42.23 kg/m2 eCW1 ([facility]) Body height 65 [in_us] 65 [in_us] eCW1 ([facility]) Body weight Measured 253.8 [lb_av] 253.8 [lb_av ] eCW1 ([facility]) Respiratory rate 16 /min 16 /min [facility] ( [facility], ) Heart rate 92 /min 92 /min [facility] ([facility], ) Diastolic blood pressure 100 mm[Hg] 100 mm[Hg] [facility] ([facility], ) Systolic blood pressure 140 mm[Hg] 140 mm[Hg] M EDENT ([facility], ) Diastolic blood pressure 100 mm[Hg] 100 mm[Hg] [facility] ([facility], ) Systolic blood pressure 138 mm[Hg] 138 mm[Hg] M EDENT ([facility]) Body mass index (BMI) [Ratio] 41.4 kg/m2 41.4 k g/m2 [facility] ([facility], [facility]) Body height 65 [in_i] 65 [in_i] [facility] ([facility]) 5'5" Body weight 249.00 [lb_av] 249.00 [lb_av] MEDEN T ([facility], [facility]) Body temperature 98.5 [degF] 98.5 [degF] [facility] ([facility]) Oxygen saturation in Arterial blood by [facility]ulse oximetry 97 % 97 % [facility]) Respiratory rate 18 /min 18 /min [facility] ( [facility]) Heart rate 112 /min 112 /[facility], [facility]) Diastolic blood pressure 88 mm[Hg] 88 mm[Hg] [facility] ([facility], [facility]) Systolic blood pressure 128 mm[Hg] 128 mm[Hg] M EDENT ([facility], [facility]) Diastolic blood pressure 74 mm[Hg] 74 mm[Hg] eCW1 ([facility]) Systolic blood pressure 124 mm[Hg] 124 mm[Hg] e CW1 ([facility]) Body temperature 97.3 [degF] 97.3 [degF] eCW1 ( [facility]) Respiratory rate 18 /min 18 /min eCW1 ([facility]) Heart rate 105 /min 105 /min eCW1 ([facility]) Body mass index (BMI) [Ratio] 41.46 kg/m2 41.46 kg/m2 eCW1 ([facility]) Body height 65 [in_us] 65 [in_us] eCW1 ([facility]) Body weight Measured 249.2 [lb_av] 249.2 [lb_av ] eCW1 ([facility]) ID Date Data Source [id number] 12/26/2019 02:24:08 PM EDT [facility] Name Value Range Interpretation Code Description Data Source(s) WEIGHT RECORDED 235 lb 235 lb [facility] ID Date Data Source [id number] 10/28/2019 02:32:52 PM EDT [facility] Name Value Range Interpretation Code Description Data Source(s) WEIGHT RECORDED 238 lb 238 lb [facility] ID Date Data Source [id number] 09/14/2019 10:07:13 AM EDT [facility] Name Value Range Interpretation Code Description Data Source(s) WEIGHT RECORDED 246 lb 246 lb [facility] Body height Measured 65 in 65 in [facility] ID Date Data Source [id number] 05/23/2019 02:51:57 PM EST [facility] Name Value Range Interpretation Code Description Data Source(s) WEIGHT RECORDED 245 lb 245 lb [facility] Body height Measured 65 in 65 in [facility] ID Date Data Source [id number] 05/10/2019 10:05:53 AM EST [facility] Name Value Range Interpretation Code Description Data Source(s) WEIGHT RECORDED 245 lb 245 lb [facility] Body height Measured 65 in 65 in [facility] Patient Treatment Plan of Care Planned Activity Planned Date Details Description Data Source (s) Jobst Relief 30-40mmHg Medium - 03/19/2020 12:00:00 AM EST eCW1 ([facility]) Jobst Relief 30-40mmHg Medium - 03/19/2020 12:00:00 AM EST eCW1 ([facility]) Jobst Relief 30-40mmHg Medium - 03/19/2020 12:00:00 AM EST eCW1 ([facility]) Jobst Relief 30-40mmHg Medium - 03/19/2020 12:00:00 AM EST eCW1 ([facility]) Fluocinonide 0.5 MG/ML Topical Cream 11/02/2019 12:00:00 AM [facility] Proparacaine hydrochloride 5 MG/ML Ophthalmic Solution 09/13/2019 12:15:00 PM [facility] Phenylephrine Hydrochloride 25 MG/ML Ophthalmic Soluti on 09/13/2019 12:15:00 PM [facility] Tropicamide 10 MG/ML Ophthalmic Solution 09/13/2019 12:15:00 PM [facility] 3 ML heparin sodium, porcine 100 UNT/ML Prefilled Syri nge 09/07/2019 06:01:56 PM [facility] sodium chloride (preservative free) 0.9 % flush 10 mL 09/07/2019 06:09:39 AM [facility] heparin sodium, porcine 10 UNT/ML Injectable Solution 09/07/2019 06:09:39 AM [facility] Acetazolamide 250 MG Oral Tablet 09/07/2019 12:00:00 AM [facility] Naltrexone hydrochloride 50 MG Oral Tablet 08/02/2019 12:00:00 AM E [facility] Senna 8.6 MG 06/01/2019 12:00:00 AM EDT e CW1 ([facility]) torsemide 20 MG Oral Tablet 06/01/2019 12:00:00 AM EDT eCW1 ([facility]) ondansetron (ZOFRAN) injection 4 mg 05/17/2019 09:57:39 AM [facility] fentaNYL (SUBLIMAZE) (PF) injection 12.5 mcg 05/17/2019 09:57:39 AM [facility] fentaNYL (SUBLIMAZE) (PF) injection 25 mcg 05/17/2019 09:57:39 AM E [facility] Acetaminophen 325 MG / Hydrocodone Bitartrate 5 MG Ora l Tablet 05/17/2019 12:00:00 AM [facility] Clozapine 100 MG Oral Tablet 05/04/2019 12:00:00 AM [facility] Omeprazole 20 MG Delayed Release Oral Capsule 05/04/2019 12:00:00 A M [facility] ramelteon 8 MG Oral Tablet 05/04/2019 12:00:00 AM [facility] Lorazepam 0.5 MG Oral Tablet 04/21/2019 12:00:00 AM [facility] Furosemide 20 MG Oral Tablet 04/09/2019 12:00:00 AM [facility] Folic Acid 1 MG Oral Tablet 06/10/2018 12:00:00 AM [facility] Amphetamine aspartate 2.5 MG / Amphetami ne Sulfate 2.5 MG / Dextroamphetamine saccharate 2.5 MG / Dextroamphetamine Sulfate 2.5 MG Oral Tablet 05/11/2018 12:00:00 AM [facility] Prazosin 1 MG Oral Capsule 02/09/2018 12:00:00 AM [facility] Hydroxyzine Hydrochloride 50 MG Oral Tablet 02/09/2018 12:00:00 AM [facility] aripiprazole 20 MG Oral Tablet 01/29/2018 12:00:00 AM [facility] Ondansetron 4 MG Disintegrating Oral Tablet 12/17/2017 12:00:00 AM [facility] Pyridostigmine [place] 60 MG Oral Tablet 12/03/2017 12:00:00 AM [facility] Naltrexone hydrochloride 50 MG Oral Tablet 12/02/2017 12:00:00 AM E [facility] aripiprazole 5 MG Oral Tablet 11/17/2017 12:00:00 AM [facility] Suvorexant 5 MG Oral Tablet [Belsomra] 11/06/2017 12:00:00 AM [facility] Naproxen 375 MG Oral Tablet 09/19/2017 12:00:00 AM [facility] Phenazopyridine hydrochloride 200 MG Oral Tablet 08/27/2017 12:00:0 0 AM [facility] Furosemide 20 MG Oral Tablet [facility]
--- OUTSIDE RECORDS SUMMARY | 2020-04-09 15:16 | CCD ---
Author Author [facility] Organization [facility] Address Unknown Phone Unavailable Care Team Providers Care Yardage Control Operator Forming Name Role Phone LETI, J NIKKO MANUFACTURING SALES REPRESENTATIVE Unavailable Unavailable LETI, J NIKKO MANUFACTURING SALES REPRESENTATIVE Unavailable Unavailable LETI, J NIKKO MANUFACTURING SALES REPRESENTATIVE Unavailable Unavailable LETI, J NIKKO MANUFACTURING SALES REPRESENTATIVE Unavailable Unavailable LETI, J NIKKO MANUFACTURING SALES REPRESENTATIVE Unavailable Unavailable LETI, J NIKKO MANUFACTURING SALES REPRESENTATIVE Unavailable Unavailable LETI, J NIKKO MANUFACTURING SALES REPRESENTATIVE Unavailable Unavailable LETI, J NIKKO MANUFACTURING SALES REPRESENTATIVE Unavailable Unavailable LETI, J NIKKO MANUFACTURING SALES REPRESENTATIVE Unavailable Unavailable LETI, J NIKKO MANUFACTURING SALES REPRESENTATIVE Unavailable Unavailable LETI, J NIKKO MANUFACTURING SALES REPRESENTATIVE Unavailable Unavailable LETI, J NIKKO MANUFACTURING SALES REPRESENTATIVE Unavailable Unavailable LETI, J NIKKO MANUFACTURING SALES REPRESENTATIVE Unavailable Unavailable LETI, J NIKKO MANUFACTURING SALES REPRESENTATIVE Unavailable Unavailable LETI, J NIKKO MANUFACTURING SALES REPRESENTATIVE Unavailable Unavailable LETI, J NIKKO MANUFACTURING SALES REPRESENTATIVE Unavailable Unavailable LETI, J NIKKO MANUFACTURING SALES REPRESENTATIVE Unavailable Unavailable LETI, J NIKKO MANUFACTURING SALES REPRESENTATIVE Unavailable Unavailable LETI, J NIKKO MANUFACTURING SALES REPRESENTATIVE Unavailable Unavailable LETI, J NIKKO MANUFACTURING SALES REPRESENTATIVE Unavailable Unavailable LETI, J NIKKO MANUFACTURING SALES REPRESENTATIVE Unavailable Unavailable LETI, J NIKKO MANUFACTURING SALES REPRESENTATIVE Unavailable Unavailable LETI, J NIKKO MANUFACTURING SALES REPRESENTATIVE Unavailable Unavailable LETI, J NIKKO MANUFACTURING SALES REPRESENTATIVE Unavailable Unavailable LETI, J NIKKO MANUFACTURING SALES REPRESENTATIVE Unavailable Unavailable LETI, J NIKKO MANUFACTURING SALES REPRESENTATIVE Unavailable Unavailable Kranthi Encarnacion MD Unavailable Unavailable [...] Unavailable Unavailable Wander, C Mg Unavailable Unavailable Lelia Lake, C Mg Unavailable Unavailable Lelia Lake, C Mg Unavailable Unavailable Lelia Lake, C Mg Unavailable Unavailable Lelia Lake, C Mg Unavailable Unavailable Lelia Lake, C Mg Unavailable Unavailable Lelia Lake, C Mg Unavailable Unavailable RING, K JASPREET [...] JASPREET PA Unavailable Unavailable BLAINE, H NIKKO MANUFACTURING SALES REPRESENTATIVE Unavailable Unavailable BLAINE, H NIKKO MANUFACTURING SALES REPRESENTATIVE Unavailable Unavailable BLAINE, H NIKKO MANUFACTURING SALES REPRESENTATIVE Unavailable Unavailable BLAINE, H NIKKO MANUFACTURING SALES REPRESENTATIVE Unavailable Unavailable BLAINE, H NIKKO MANUFACTURING SALES REPRESENTATIVE Unavailable Unavailable BLAINE, H NIKKO MANUFACTURING SALES REPRESENTATIVE Unavailable Unavailable BLAINE, H NIKKO MANUFACTURING SALES REPRESENTATIVE Unavailable Unavailable Felton-Tartell, M Joey DO Unavailable [...] Unavailable Porter, Yaima Pia PA Unavailable Unavailable KUROCHKIN, ALEXI [...] is protected by Article 27-F of the [facility] Public Health law. If you continue you may have access to information: Regarding HIV / AIDS; Provided by facilities licensed or operated by the [facility] Office of Mental Health; or Provided by the [facility] Office for People With Developmental Disabilities. If such information is present, then the following [facility] mandated warning applies: This information has been [...] law may result in a fine or care home sentence or both. A general authorization for the release of medical or other information is NOT sufficient authorization for further disc losure. Allergies and Adverse Reactions Type Description Substance Reaction Status Data Source(s ) Propensity to adverse reactions to substance Wellbutrin (bup ropion hcl) Bupropion Hydrochloride 75 MG Oral Tablet [Wellbutrin] difficulty breathing: throat spasms Active [facility] ([facility]) Propensity to adverse reactions to substance Depakote (dival proex) Divalproex Sodium 125 MG Delayed Release Oral Tablet [Depakote] Active [facility] ([facility]) Propensity to adverse reactions to substance benztropine benztropine mesylate 1 MG/ML Injectable Solution Active [facility] ([facility]) Propensity to adverse reactions to substance Cyclobenzaprine Group quackgrass pollen extract 85686 UNT/ML Active [facility] ([facility]) Propensity to adverse reactions to substance Abilify (aripip razole) aripiprazole 10 MG Oral Tablet [Abilify] Active [facility] ( [facility]) Propensity to adverse reactions to substance prazosin Prazosin 1 MG Oral Capsule Fatigue Active [facility] ([facility]) Propensity to adverse reactions to substance amitriptyline Amitriptyline Hydrochloride 75 MG Oral Tablet Active [facility] ([facility]) Propensity to adverse reactions to substance mirtazapine Mirtazapine 7.5 MG Oral Tablet Active [facility] ([facility]) DRUG INGREDI TIZANIDINE TIZANIDINE Itching [facility] DRUG INGREDI BUPROPION BUPROPION [facility] DRUG INGREDI TRAZODONE TRAZODONE Swelling [facility] DRUG INGREDI METAXALONE METAXALONE Itching [facility] Drug allergy TraZODone HCl Trazodone swelling Active eCW1 ([facility]) Drug allergy Depakote Valproate does not metabolize properly Acti ve eCW1 ([facility]) Drug allergy Cogentin Benztropine blurry eyes Active eCW1 ([facility]) Drug allergy Amitriptyline HCl Amitriptyline edema Active eC W1 ([facility]) Drug allergy Gabapentin gabapentin weakness and confusion Active eCW1 ([facility]) Drug allergy Zanaflex Drug allergy itching Active eCW1 ([facility]) Drug allergy Bactrim DS sulfamethoxazole / trimethoprim Diarrhea Ac tive eCW1 ([facility]) Drug allergy Lyrica pregabalin fluid retentiom Active eCW1 ( [facility]) Drug allergy Skelaxin metaxalone itching Active eCW1 ([facility]) Clindamycin Clindamycin HCl Clindamycin heart burn Active eCW1 ( [facility]) Wellbutrin Wellbutrin Wellbutrin throat spasms Active eCW1 ([facility]) Flexeril Flexeril Flexeril irritability Active eCW1 ([facility]) Wellbutrin Wellbutrin Wellbutrin throat spasms Active eCW1 ([facility]) Flexeril Flexeril Flexeril irritability Active eCW1 ([facility]) Wellbutrin Wellbutrin Wellbutrin throat spasms Active eCW1 ([facility]) Flexeril Flexeril Flexeril irritability Active eCW1 ([facility]) Wellbutrin Wellbutrin Wellbutrin throat spasms Active eCW1 ([facility]) Flexeril Flexeril Flexeril irritability Active eCW1 ([facility]) Wellbutrin Wellbutrin Wellbutrin throat spasms Active eCW1 ([facility]) Flexeril Flexeril Flexeril irritability Active eCW1 ([facility]) Wellbutrin Wellbutrin Wellbutrin throat spasms Active eCW1 ([facility]) Flexeril Flexeril Flexeril irritability Active eCW1 ([facility]) Wellbutrin Wellbutrin Wellbutrin throat spasms Active eCW1 ([facility]) Flexeril Flexeril Flexeril irritability Active eCW1 ([facility]) Wellbutrin Wellbutrin Wellbutrin throat spasms Active eCW1 ([facility]) Flexeril Flexeril Flexeril irritability Active eCW1 ([facility]) DRUG INGREDI NICKEL NICKEL [facility] Chemical ADHESIVE TAPE ADHESIVE TAPE [facility] Drug Class NO KNOWN ALLERGIES NO KNOWN ALLERGIES [facility] Drug allergy MINOCYCLINE HCL MINOCYCLINE HCL [facility] DRUG INGREDI PREGABALIN PREGABALIN Swelling [facility] DRUG INGREDI GABAPENTIN GABAPENTIN Other [facility] DRUG INGREDI CYCLOBENZAPRINE CYCLOBENZAPRINE Other [facility] DRUG INGREDI VALPROIC ACID [facility]PROIC [facility] INGREDI BENZTROPINE BENZTROPINE Other [facility] DRUG INGREDI AMITRIPTYLINE AMITRIPTYLINE Swelling Med Ups [facility] Wellbutrin Wellbutrin Wellbutrin throat spasms Active eCW1 ([facility]) Flexeril Flexeril Flexeril irritability Active eCW1 ([facility]) Wellbutrin Wellbutrin Wellbutrin throat spasms Active eCW1 ([facility]) Flexeril Flexeril Flexeril irritability Active eCW1 ([facility]) Wellbutrin Wellbutrin Wellbutrin throat spasms Active eCW1 ([facility]) Flexeril Flexeril Flexeril irritability Active eCW1 ([facility]) TraZODone HCl TraZODone HCl Trazodone Hydrochloride 50 MG Oral Tabl et swelling Active eCW1 ([facility]) Wellbutrin Wellbutrin Wellbutrin throat spasms Active eCW1 ([facility]) Flexeril Flexeril Flexeril irritability Active eCW1 ([facility]) Family History Family Member Name Family Member Gender Family Member Status Date o f Status Description Data Source(s) Unknown Male Condition Family Member Diabetes [facility] Unknown Male Condition Family Member Mental illne [facility] Unknown Male Condition Family Member Asthma [facility] Unknown Unknown Problem [facility] ([facility]) Unknown Unknown Problem [facility] ([facility]) Unknown Female Problem MEDENT ([facility]) Encounters Encounter Providers Location Date Indications Data Source(s ) Outpatient Attender: LEORA VALENTIN 07/11/2020 12:00:00 AM E [facility] Unknown [address] [facility] [address] 03/21/2020 12:00:00 AM EST eCW1 ([facility]) Unknown [address] [facility] [address] 03/19/2020 12:00:00 AM EST eCW1 ([facility]) Unknown [address] [facility] [address] 03/14/2020 12:00:00 AM EST eCW1 ([facility]) Outpatient Attender: Mitra SCHROEDER [facility] 03/12/2020 08:00:00 AM EST MED[facility] ([facility]) TeleMedicine Phone E/M by Phys 5-[address] [place] [phone] 03/12/2020 12:00:00 AM EST eCW1 ([facility]) Unknown [address] [facility] [address] 03/12/2020 12:00:00 AM EST eCW1 ([facility]) TeleMedicine Phone E/M by Phys 11-[address] [place] [phone] 03/02/2020 12:00:00 AM EST eCW1 ([facility]) Outpatient Attender: NIKKO LANDEROS NP [id number] 01/30/2020 0 2:41:46 PM [facility] Outpatient Attender: NIKKO BALBUENA NP [facility] carol 01/17/2020 10:00:00 AM EDT - 01/17/2020 10:00:00 AM EDT [facility] ([facility]) Attender: NIKKO BALBUENA NP 01/17/2020 12:00:00 AM EDT [facility] ([facility]) [place] [address] [facility] [address] 01/12/2020 12:00:00 AM EDT eCW1 ([facility]) Outpatient Attender: LEORA VALENTIN 01/04/2020 12:00:00 AM [facility] [place] [address] [facility] [address] 01/02/2020 12:00:00 AM EDT eCW1 ([facility]) Extended Individual Psychotherapy - 45 min Attender: Mesha Molina [facility] 12/29/2019 10:30:00 AM EDT - 12/29/2019 10:30:00 AM EDT [facility] ([facility]) Attender: Lita Molina 12/29/2019 12:00:0 0 AM EDT [facility] ([facility]) Outpatient Attender: LEORA VALENTINReferrer: Mauricio Szymanski MD [id number] 12/26/2019 12:00:[address] [facility] [address] [facility] [address] 12/26/2019 12:00:00 AM EDT eCW1 ([facility]) [place] [address] [facility] [address] 12/22/2019 12:00:00 AM EDT eCW1 ([facility]) Outpatient Attender: NIKKO BALBUENA NP [facility] Christophe medina 12/20/2019 09:30:00 AM EDT - 12/20/2019 09:30:00 AM EDT [facility] ([facility]) Attender: NIKKO BALBUENA NP 12/20/2019 12:00:00 AM EDT [facility] ([facility]) Outpatient Attender: Mitra SCHROEDER [facility] 12/12/2019 02:45:00 PM EDT MED[facility] ([facility]) Outpatient Attender: LEORA HE 12/12/2019 10:50:28 AM EDT [facility] Extended Individual Psychotherapy - 45 min Attender: Mesha modesto [facility] 11/25/2019 09:00:00 AM EDT - 11/25/2019 09:00:00 AM EDT [facility] ([facility] Attender: Lita Tracy 11/25/2019 12:00:0 0 AM EDT [facility] ([facility]) [facility] [address] [place] [phone] 11/25/2019 12:00:00 AM EDT eCW1 ([facility]) Outpatient Attender: LEORA VALENTINReferrer: Mauricio AYERS 11/23/2019 12:00:00 AM EDT Malignant neoplasm of lower-inner quadra nt of right female [facility] Malignant neoplasm of lower-inner 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 ct sim Outpatient Attender: LEORA VALENTINReferrer: Mauricio Szymanski MD 11/16/2019 12:00:[address] [facility] ct sim Outpatient Attender: LEORA VALENTINReferrer: Mauricio AYERS 11/09/2019 12:00:00 AM EDT - 11/09/2019 01:24:31 PM EDT Malignant neoplasm of lower-inner quadrant of right female breast [facility] Malignant neoplasm of lower-inner quadra nt of right female breast Outpatient Attender: LEORA VALENTINReferrer: Mauricio Szymanski MD 11/02/2019 12:00:[address] [facility] ct sim Outpatient Referrer: Mauricio Szymanski MD 10/31/2019 12:00:[address] [facility] ct sim Outpatient Attender: LEORA VALENTINReferrer: Mauricio HE 10/21/2019 12:00:00 AM EDT - 10/21/2019 01:18:39 PM EDT Malignant neoplasm of lower-inner quadrant of right female breast [facility] Malignant neoplasm of lower-inner quadra nt of right female breast Outpatient Attender: LEORA VALENTINReferrer: Mauricio Szymanski MD [id number] 10/21/2019 12:00:00 AM EDT - 10/21/2019 01:18:28 PM EDT Malignant neoplasm of lower-inner quadrant of right female breast [facility] Malignant neoplasm of lower-inner quadra nt of right female breast Outpatient Referrer: Mauricio Szymanski MD 10/20/2019 12:00:0 0 AM EDT [facility] Outpatient [address] [facility] [address] 09/22/2019 12:00:00 AM EDT [facility] ([facility]) [id number]"Psychotherapy Attender: Lita Molina [facility] 09/20/2019 10:00:00 AM EDT - 09/20/2019 10:00:00 AM EDT [facility] ([facility]) Attender: Lita Molina 09/20/2019 12:00:0 0 AM EDT [facility] ([facility]) Outpatient Attender: ALEXI ESQUEDA [id number] 09/12 12:00:00 AM EDT - 09/13/2019 02:26:50 PM EDT Unspecified papilledema [facility] Unspecified papilledema Outpatient 09/12/2019 12:00:00 AM EDT [facility] Outpatient Attender: Shayy adam MDReferrer: Shayy Perez MD 09/06/2019 12:00:00 AM EDT [facility] Outpatient Attender: Shayy adam MDReferrer: Shayy Perez MD 09/06/2019 12:00:00 AM EDT [facility] [place] [address] [facility] [address] 09/06/2019 12:00:00 AM EDT eCW1 ([facility]) Inpatient Attender: Shayy adam MDAttender: JAIME HALL IIIAdmitter: Shayy Perez MDReferrer: PROVIDER SYSTEM [id number] 09/05/2019 12:00:00 AM EDT - 09/07/2019 12:00:00 AM EDT Benign intracranial hypertension [facility] Benign intracranial hypertension Patient discharged. [facility] [address] [facility] [address] 09/05/2019 12:00:00 AM EDT eCW1 ([facility]) [id number]"Psychotherapy Attender: Lita Molina [facility] 09/02/2019 09:00:00 AM EDT - 09/02/2019 09:00:00 AM EDT [facility] ([facility]) Attender: Lita Molina 09/02/2019 12:00:0 0 AM EDT [facility] ([facility]) Outpatient Attender: Mitra Land [facility] 09/01/2019 09:00:00 AM EDT [facility] ([facility] ) Outpatient Attender: NIKKO BALBUENA NP [facility] l 08/25/2019 04:00:00 AM EDT - 08/25/2019 04:00:00 AM EDT [facility] ([facility]) Attender: NIKKO BALBUENA NP 08/25/2019 12:00:00 AM EDT [facility] ([facility]) TEMPMHCTelemed 30" Psychotherapy Attender: Lita clements [facility] 08/18/2019 09:30:00 AM EDT - 08/18/2019 09:30:00 AM EDT [facility] ([facility]) Attender: Lita Molina 08/18/2019 12:00:0 0 AM EDT [facility] ([facility]) TEMPMHCTelemed 30" Psychotherapy Attender: Lita clements [facility] 08/04/2019 08:45:00 AM EDT - 08/04/2019 08:45:00 AM EDT [facility] ([facility]) Attender: Lita Molina 08/04/2019 12:00:0 0 AM EDT [facility] ([facility]) [facility] [address] [facility] [address] 08/03/2019 12:00:00 AM EDT eCW1 ([facility]) Outpatient Attender: Isaac Cavanaugh 08/02/2019 12:00:00 AM EDT [facility] [address] [facility] [place] [address] 08/02/2019 12:00:00 AM EDT eCW1 ([facility]) Outpatient Referrer: ELIDIA SCHROEDER 07/29/2019 05:50:00 AM EDT [facility] [address] [facility] [address] 07/29/2019 12:00:00 AM EDT eCW1 ([facility]) Outpatient Attender: NIKKO BALBUENA NP [facility] Christophe medina 07/28/2019 11:00:00 AM EDT - 07/28/2019 11:00:00 AM EDT [facility] ([facility]) [facility] [address] [facility] [address] 07/28/2019 12:00:00 AM EDT eCW1 ([facility]) Attender: NIKKO BALBUENA NP 07/28/2019 12:00:00 AM EDT [facility] ([facility]) [id number]"Psychotherapy Attender: Lita Molina [facility] 07/06/2019 10:45:00 AM EDT - 07/06/2019 10:45:00 AM EDT [facility] ([facility]) Attender: Lita Molina 07/06/2019 12:00:0 0 AM EDT [facility] ([facility]) Outpatient Attender: Pia niño 07/01/2019 10:00:00 AM EDT MED[facility] ([facility] Ric [address] [facility] [address] 07/01/2019 12:00:00 AM EDT eCW1 ([facility]) [facility] [address] [place] [address] 06/24/2019 12:00:00 AM EDT eCW1 ([facility]) Outpatient Attender: NIKKO BALBUENA NP [facility] Christophe medina 06/23/2019 02:30:00 AM EDT - 06/23/2019 02:30:00 AM EDT [facility] ([facility]) Attender: NIKKO BALBUENA NP 06/23/2019 12:00:00 AM EDT [facility] ([facility]) [facility] Breast Care [address] [place] [phone] 06/21/2019 12:00:00 AM EDT eCW1 ([facility]) [facility] [address] [place] [phone] 06/20/2019 12:00:00 AM EDT eCW1 ([facility]) TEMPMTelemed 30" Psychotherapy Att[facility]: [facility]ments [facility] 06/17/2019 09:45:00 AM EDT - 06/17/2019 09:45:00 AM EDT [facility] ([facility]) [facility] Ric [address] [facility] [place] [address] 06/17/2019 12:00:00 AM EDT eCW1 ([facility]) Attender: Lita Molina 06/17/2019 12:00:0 0 AM EDT [facility] ([facility]) [facility] [address] [place] [address] 06/13/2019 12:00:00 AM EDT eCW1 ([facility]) [facility] [address] [place] [address] 06/09/2019 12:00:00 AM EDT eCW1 ([facility]) [facility] Care [address] [place] [phone] 06/06/2019 12:00:00 AM EDT eCW1 ([facility]) [facility] [address] [place] [address] 06/03/2019 12:00:00 AM EDT eCW1 ([facility]) Brief Individual Psychotherapy - 30 min Attender: Lita bond [facility] 06/02/2019 08:00:00 AM EDT - 06/02/2019 08:00:00 AM EDT [facility] ([facility]) [facility] [address] [place] [phone] 06/02/2019 12:00:00 AM EDT eCW1 ([facility]) Attender: Lita Molina 06/02/2019 12:00:0 0 AM EDT [facility] ([facility]) [facility] Larios [address] [place] [phone] 06/01/2019 12:00:00 AM EDT eCW1 ([facility]) Outpatient Attender: Mitra SCHROEDER [facility] 05/30/2019 02:30:00 PM EDT MEDENT ([facility] FANNY [facility]) [facility] Care [address] [place] [phone] 05/27/2019 12:00:00 AM EST eCW1 ([facility]) Outpatient Attender: Mg Viramontes [facility] 0 05/25/2019 09:30:00 AM EST - 05/25/2019 09:30:00 AM EST [facility] ([facility] Attender: Mg Viramontes 05/25/2019 12:00:00 AM EST [facility] ([facility]) Outpatient Attender: Sierra Minor MD 05/25/2019 12:00:00 AM [facility] Outpatient Referrer: ELIDIA SCHROEDER 05/23/2019 03:37:00 PM EST [facility] [address] [place] [address] 05/23/2019 12:00:00 AM EST eCW1 ([facility]) [facility] Care [address] [place] [phone] 05/23/2019 12:00:00 AM EST eCW1 ([facility]) Outpatient Attender: Sierra Minor MD 05/19/2019 12:00:[address] [facility] Breast Care [address] [place] [phone] 05/18/2019 12:00:00 AM EST eCW1 ([facility]) [facility] [address] [place] [phone] 05/18/2019 12:00:00 AM EST eCW1 ([facility]) Outpatient Attender: Sierra Minor MD [id number] 05/17/2019 01:12:57 PM [facility] Outpatient Attender: Sierra Veronicaitter: Sierra Minor MD 6 [id number] 05/17/2019 12:00:00 AM EST - 05/17/2019 12:00:00 AM EST Malignant neoplasm of right breast in female, estrogen receptor positive, unspecified site of breast [C50.911, Z17.0] [facility] Malignant neoplasm of right breast in fe male, estrogen receptor positive, unspecified site of breast [C50.911, Z17.0] Patient discharged. Outpatient Attender: Sierra Minor MDAdmit ter: Sierra Melvinerrer: Sierra Minor MD 05/17/2019 12:00:00 AM EST Malignant lesley plasm of unspecified site of right female breast [facility] Malignant neoplasm of unspecified site o f right female breast Outpatient Attender: Sierra Minor MD 05/17/2019 12:00:00 AM [facility] Outpatient Attender: Sierra Melvinerrer: Sierra Minor MD 05/17/2019 12:00:00 AM [facility] Outpatient Attender: Sierra DANIELLEeferrer: Sierra Minor MD 05/17/2019 12:00:00 AM [facility] Outpatient Referrer: ELIDIA SCHROEDER 05/16/2019 03:28:00 PM EST [facility] Larios [address] [facility] [address] 05/13/2019 12:00:00 AM EST eCW1 ([facility]) Outpatient Admitter: Sierra Minor MDReferrer: Sierra Minor MD 05/12/2019 12:00:00 AM EST Malignant neoplasm of unspecified site of unspecified female breast [facility] Malignant neoplasm of unspecified site o f unspecified female breast [facility] [address] [place] [address] 05/11/2019 12:00:00 AM EST eCW1 ([facility]) Outpatient Attender: Sierra Melvinerrer: JAYME SIMONS DO [id number] 05/09/2019 12:00:00 AM EST - 05/09/2019 11:34:36 AM ES T Family history of malignant neoplasm of other genital organs [facility] Family history of malignant neoplasm of other genital organs Extended Individual Psychotherapy - 45 min Attender: [facility] 05/06/2019 10:00:00 AM EST - 05/06/2019 10:00:00 AM EST [facility] ([facility]) Attender: Marga Fernch 05/06/2019 12:00:00 A M EST [facility] ([facility]) Outpatient Attender: Trista Encarnacion MD 05/05/2019 12:00:0 0 AM EST [facility] [address] [place] [address] 05/04/2019 12:00:00 AM EST eCW1 ([facility]) [facility] [address] [place] [address] 04/28/2019 12:00:00 AM EST eCW1 ([facility]) Outpatient Attender: Mg Viramontes [facility] 0 04/21/2019 11:30:00 AM EST - 04/21/2019 11:30:00 AM EST [facility] ([facility]) Attender: Mg Viramontes 04/21/2019 12:00:00 AM EST [facility] ([facility]) Extended Individual Psychotherapy - 45 min Attender: Jerry Orozcoews [facility] 04/20/2019 12:00:00 PM EST - 04/20/2019 12:00:00 PM EST [facility] ([facility]) [facility] [address] [place] [phone] 04/20/2019 12:00:00 AM EST eCW1 ([facility]) Attender: Marga Manolo 04/20/2019 12:00:00 A M EST [facility] ([facility]) Outpatient Referrer: ELIDIA SCHROEDER 04/19/2019 10:53:00 AM EST [facility] [address] [place] [phone] 04/19/2019 12:00:00 AM EST eCW1 ([facility]) [facility] Larios [address] [place] [phone] 04/14/2019 12:00:00 AM EST eCW1 ([facility]) Outpatient Referrer: ELIDIA SCHROEDER 04/13/2019 01:09:00 PM EST [facility] Outpatient Admitter: Joey Leoerrer: Joey Scott DO 04/12/2019 12:00:00 AM EST Malignant lesley plasm of unspecified site of unspecified female [facility] Malignant neoplasm of unspecified site o f unspecified female breast [facility] [address] [place] [phone] 04/12/2019 12:00:00 AM EST eCW1 ([facility]) [facility] [address] [place] [phone] 04/11/2019 12:00:00 AM EST eCW1 ([facility]) [address] [address] 04/06/2019 12:00:00 AM EST eCW1 ([facility]) Outpatient Attender: Pia niño 04/03/2019 09:15:00 AM EST [facility] ([facility]) Extended Individual Psychotherapy - 45 min Attender: Jerry French [facility] 04/01/2019 12:45:00 PM EST - 04/01/2019 12:45:00 PM EST [facility] ([facility]) Outpatient Referrer: ELIDIA SCHROEDER 04/01/2019 11:15:00 AM EST [facility] Attender: Marga French 04/01/2019 12:00:00 A M EST [facility] ([facility]) Outpatient Attender: Mg Vir[facility]ontes [facility] 03/31/2019 11:00:00 AM EST - 03/31/2019 11:00:00 AM EST [facility] ([facility] Attender: Mg Viramontes 03/31/2019 12:00:00 AM EST [facility] ([facility]) [address] [place] [address] 03/29/2019 12:00:00 AM EST eCW1 ([facility]) [address] [place] [address] 03/29/2019 12:00:00 AM EST eCW1 ([facility]) [address] [place] [address] 03/27/2019 12:00:00 AM EST eCW1 ([facility]) Extended Individual Psychotherapy - 45 min Attender: Jerry French [facility] 03/22/2019 09:45:00 AM EST - 03/22/2019 09:45:00 AM EST [facility] ([facility]) Attender: Marga French 03/22/2019 12:00:00 A M EST [facility] ([facility]) [facility] [address] [facility] [place] [address] 03/17/2019 12:00:00 AM EST eCW1 ([facility]) Outpatient Attender: Mitra SCHROEDER Main office - [facility] 03/02/2019 09:30:00 AM EST [facility] ([facility]) Outpatient Attender: JASPREET Guadalupe 02/26/2019 08:15:00 AM EST [facility] ([facility] Extended Individual Psychotherapy - 45 min Attender: Jerry French [facility] 02/22/2019 02:00:00 AM EST - 02/22/2019 02:00:00 AM EST [facility] ([facility]) Attender: Marga French 02/22/2019 12:00:00 A M EST [facility] ([facility]) [facility] [address] [facility] [place] [address] 02/20/2019 12:00:00 AM EST eCW1 ([facility]) [facility] [address] [facility] [place] [address] 02/14/2019 12:00:00 AM EST eCW1 ([facility]) Functional Status Immunizations Vaccine Date Status Description Data Source(s) influenza, recombinant, quadrIvalent,injectable, prese rvative free 02/14/2019 11:28:00 AM EST completed eCW1 ([facility]) influenza, recombinant, quadrIvalent,injectable, prese rvative free 02/14/2019 11:28:00 AM EST completed eCW1 ([facility]) influenza, recombinant, quadrIvalent,injectable, prese rvative free 02/14/2019 11:28:00 AM EST completed eCW1 ([facility]) influenza, recombinant, quadrIvalent,injectable, prese rvative free 02/14/2019 11:28:00 AM EST completed eCW1 ([facility]) influenza, recombinant, quadrIvalent,injectable, prese rvative free 02/14/2019 11:28:00 AM EST completed eCW1 ([facility]) influenza, recombinant, quadrIvalent,injectable, prese rvative free 02/14/2019 11:28:00 AM EST completed eCW1 ([facility]) influenza, recombinant, quadrIvalent,injectable, prese rvative free 02/14/2019 11:28:00 AM EST completed eCW1 ([facility]) influenza, recombinant, quadrIvalent,injectable, prese rvative free 02/14/2019 11:28:00 AM EST completed eCW1 ([facility]) influenza, recombinant, quadrIvalent,injectable, prese rvative free 02/14/2019 11:28:00 AM EST completed eCW1 ([facility]) influenza, recombinant, quadrIvalent,injectable, prese rvative free 02/14/2019 11:28:00 AM EST completed eCW1 ([facility]) influenza, recombinant, quadrIvalent,injectable, prese rvative free 02/14/2019 11:28:00 AM EST completed eCW1 ([facility]) influenza, recombinant, quadrIvalent,injectable, prese rvative free 02/14/2019 11:28:00 AM EST completed eCW1 ([facility]) influenza, recombinant, quadrIvalent,injectable, prese rvative free 02/14/2019 11:28:00 AM EST completed eCW1 ([facility]) influenza, recombinant, quadrIvalent,injectable, prese rvative free 02/14/2019 11:28:00 AM EST completed eCW1 ([facility]) Medications Medication Brand Name Start Date Product Form Dose Route Admi nistrative Instructions Pharmacy Instructions Status Indications Reaction Description Data Source(s) Jobst Relief 30-40mmHg Medium - Jobst Relief 30-40mmHg [facility] 03/19/2020 12:00:00 AM EST active Jobst Re lief 30-40mmHg Medium - eCW1 ([facility]) Jobst Relief 30-40mmHg Medium - Jobst Relief 30-40mmHg [facility] 03/19/2020 12:00:00 AM EST active Jobst Re lief 30-40mmHg Medium - eCW1 ([facility]) Jobst Relief 30-40mmHg Medium - Jobst Relief 30-40mmHg [facility] 03/19/2020 12:00:00 AM EST active Jobst Re lief 30-40mmHg Medium - eCW1 ([facility]) Jobst Relief 30-40mmHg Medium - Jobst Relief 30-40mmHg Mediu m - 03/19/2020 12:00:00 AM EST active Jobst Re lief 30-40mmHg Medium - eCW1 ([facility]) Naltrexone hydrochloride 50 MG Oral Tablet naltrexone 12/26/2019 12:00:00 AM EDT 50 mg by mouth completed [id number] naltrexone by juliana th [id number] 12/26/2019 once a day 50 mg tablet as directed 89108 [id number] [id number] Nikko Balbuena [id number] Nurse Practitioner [facility] ([facility]) Hydroxyzine Hydrochloride 50 MG Oral Tablet hydroxyzine HCl 12/26/2019 12:00:00 AM EDT 50 mg by mouth completed 595192 hydroxyzine HCl by mouth [id number] 12/26/2019 01/25/2020 four times a day 30 50 [place] [address] [id number] Nikko Balbuena [id number] Nurse Practitioner [facility] ([facility]) Clozapine 100 MG Oral Tablet [Clozaril] Clozaril 12/26/2019 12: 00:00 AM EDT 100 mg by mouth completed [id number] Clozaril by mouth [id number] 8 12/26/2019 01/25/2020 at bedtime 30 100 mg tablet as directed 96099 [id number] [phone] Nikko Balbuena [id number] Nurse Practitioner [facility] ([facility]) 12 HR Acetazolamide 500 MG Extended Release Oral Capsule Flavio tazolamide ER 12/16/2019 12:00:00 AM EDT ORAL active [facility] ([facility]) 24 HR venlafaxine 75 MG Extended Release Oral Tablet venlafa xine 11/22/2019 12:00:00 AM EDT 75 mg by mouth completed 453518 ve nlafaxine by mouth [id number] 11/22/2019 03/25/2020 every morning 30 75 mg tablet exte nded release 24hr 10318 749705 [id number] Nikko Balbuena [id number] Nurse Practi tioner [facility] ([facility]) Fluoxetine 20 MG Oral Capsule [Prozac] Prozac 11/22/2019 12:0 0:00 AM EDT 20 mg by mouth completed 190392 Prozac by mouth [id number] 0 11/22/2019 01/21/2020 once a day 30 20 mg capsule 57541 [id number] Albertina Balbuena [id number] Nurse Practitioner [facility] ([facility]) Fluoxetine 20 MG Oral Capsule [Prozac] Prozac 11/22/2019 12:0 0:00 AM EDT 20 mg by mouth completed 763570 Prozac by mouth [id number] 0 11/22/2019 02/24/2020 once a day 30 20 mg capsule 28991 509601 [id number] Albertina Balbuena [id number] Nurse Practitioner [facility] ([facility]) 24 HR venlafaxine 75 MG Extended Release Oral Tablet venlafa xine 11/22/2019 12:00:00 AM EDT 75 mg by mouth completed 399029 ve nlafaxine by mouth [id number] 11/22/2019 02/20/2020 every morning 30 75 mg tablet exte nded release 24hr 15067 [id number] [phone] Nikko Balbuena [id number] Nurse Practi tionetanya [facility] ([facility]) zaleplon 10 MG Oral Capsule zaleplon 11/22/2019 12:00:00 AM EDT 10 mg by mouth completed 329328 zaleplon by mouth [id number] 11/22/19 20 12/22/2019 at bedtime 30 10 mg capsule as directed 18056 [id number] Nikko lambert [id number] Nurse Practitioner [facility] ([facility]) Fluocinonide 0.5 MG/ML Topical Cream Fluocinonide 0.05 % External Cream (LIDEX) Fluocinonide 0.05 % External Cream (LIDEX) 11/02/2019 12:00:00 AM EDT active Apply two to three times daily t o affected [facility] Acetazolamide 250 MG Oral Tablet AcetaZOLAMIDE 250 MG AcetaZ NORMA 250 MG 09/22/2019 12:00:00 AM EDT 2.0 {tablets} active AcetaZOLAMIDE 250 MG eCW1 ([facility]) Acetazolamide 250 MG Oral Tablet AcetaZOLAMIDE 250 MG AcetaZ NORMA 250 MG 09/22/2019 12:00:00 AM EDT 2.0 {tablets} active AcetaZOLAMIDE 250 MG eCW1 ([facility]) Acetazolamide 250 MG Oral Tablet AcetaZOLAMIDE 250 MG AcetaZ NORMA 250 MG 09/22/2019 12:00:00 AM EDT 2.0 {tablets} active AcetaZOLAMIDE 250 MG eCW1 ([facility]) Acetazolamide 250 MG Oral Tablet AcetaZOLAMIDE 250 MG AcetaZ NORMA 250 MG 09/22/2019 12:00:00 AM EDT 2.0 {tablets} active AcetaZOLAMIDE 250 MG eCW1 ([facility]) Acetazolamide 250 MG Oral Tablet AcetaZOLAMIDE 250 MG AcetaZ NORMA 250 MG 09/22/2019 12:00:00 AM EDT 2.0 {tablets} active AcetaZOLAMIDE 250 MG eCW1 ([facility]) Acetazolamide 250 MG Oral Tablet AcetaZOLAMIDE 250 MG AcetaZ NORMA 250 MG 09/22/2019 12:00:00 AM EDT 2.0 {tablets} active AcetaZOLAMIDE 250 MG eCW1 ([facility]) Acetazolamide 250 MG Oral Tablet AcetaZOLAMIDE 250 MG AcetaZ NORMA 250 MG 09/22/2019 12:00:00 AM EDT 2.0 {tablets} active AcetaZOLAMIDE 250 MG eCW1 ([facility]) Acetazolamide 250 MG Oral Tablet AcetaZOLAMIDE 250 MG AcetaZ NORMA 250 MG 09/22/2019 12:00:00 AM EDT 2.0 {tablets} active AcetaZOLAMIDE 250 MG eCW1 ([facility]) Acetazolamide 250 MG Oral Tablet AcetaZOLAMIDE 250 MG AcetaZ NORMA 250 MG 09/22/2019 12:00:00 AM EDT 2.0 {tablets} active AcetaZOLAMIDE 250 MG eCW1 ([facility]) Acetazolamide 250 MG Oral Tablet AcetaZOLAMIDE 250 MG AcetaZ NORMA 250 MG 09/22/2019 12:00:00 AM EDT 2.0 {tablets} active AcetaZOLAMIDE 250 MG eCW1 ([facility]) Acetazolamide 250 MG Oral Tablet AcetaZOLAMIDE 250 MG AcetaZ NORMA 250 MG 09/22/2019 12:00:00 AM EDT 2.0 {tablets} active AcetaZOLAMIDE 250 MG eCW1 ([facility]) Acetazolamide 250 MG Oral Tablet AcetaZOLAMIDE 250 MG AcetaZ NORMA 250 MG 09/22/2019 12:00:00 AM EDT 2.0 {tablets} active AcetaZOLAMIDE 250 MG eCW1 ([facility]) Proparacaine hydrochloride 5 MG/ML Ophth almic Solution proparacaine (ALCAINE) 0.5 % ophthalmic solution 1 drop proparacaine (ALCAINE) 0.5 % ophthalmic solution 1 drop 09/13/2019 12:15:00 PM EDT 1 [drp] Both Eyes completed 1 drop, Both Eyes, Once, 09/13/19 at 1215, For 1 do [facility] Medication administered onsite Phenylephrine Hydrochloride 25 MG/ML Oph thalmic Solution phenylephrine (MYDFRIN) 2.5 % ophthalmic solution 1 drop phenylephrine (MYDFRIN) 2.5 % ophthalmic solution 1 drop 09/13/2019 12:15:00 PM EDT 1 [drp] Both Eyes completed 1 drop, Both Eyes, Once, Thu09/13/19 at 1215, For 1 do [facility] Medication administered onsite Tropicamide 10 MG/ML Ophthalmic Solution tropicamide (MYDRIACYL) 1 % ophthalmic solution 1 drop tropicamide (MYDRIACYL) 1 % ophthalmic solution 1 drop 09/13/2019 12:15:00 PM EDT 1 [drp] Both Eyes completed 1 drop, Both Eyes, Once, e 09/13/19 at 1215, For 1 [facility] Medication administered onsite 3 ML heparin [...] C- 34C Central Line Policy for [facility].
[facility] Medication administered onsite 3 ML heparin sodium, porcine 100 UNT/ML Prefilled Syringe heparin flush (porcine) 100 UNIT/ML injection 100 Units heparin flush (porcine) 100 UNIT/ML injection 100 Units 09/07/2019 06:01:56 PM EDT 100 U Intracatheter active 100 Units, Intracatheter, RI N, Line Care, Starting Thu09/07/19 at 1801, For 30 days [facility] Medication administered onsite Acetazolamide 250 MG Oral Tablet acetaZOLAMIDE (DIAMOX ) tablet 250 mg acetaZOLAMIDE (DIAMOX) tablet 250 mg 09/07/2019 04:45:00 PM EDT 250 m g Oral active 250 mg, Oral, 2 Times Daily, First dose on Thu09/07/19 at 1645, For 30 days [facility] Medication administered onsite sodium chloride (preservative free) 0.9 % flush 10 mL 64512- 186-00 09/07/2019 06:09:39 AM EDT 10 mL Intravenous active 10 mL, Intravenous, PRN, Line Care, Starting Thu09/07/19 at 0609, For 30 days
Verify blood return before use.For intermittent access: flush with 10 mL Sodium Chloride 0.9 % followed by 5 mL Heparin 10 units/mL.Flush per CM C-34C Central Line Policy for [facility].
[facility] Medication administered onsite heparin sodium, porcine 10 [...] CM C-34C Central Line Policy for [facility].
[facility] Medication administered onsite Acetazolamide 250 MG Oral Tablet acetaZOLAMIDE 250 MG Oral Tablet (DIAMOX) acetaZOLAMIDE 250 MG Oral Tablet (DIAMOX) 09/07/2019 12:00:00 AM EDT Oral active Take 1 tablet by mouth Two Times Daily for 7 days, THEN 2 tablets Two Times Daily.. [facility] Clozapine 100 MG Oral Tablet clozapine (CLOZARIL) tabl et 100 mg clozapine (CLOZARIL) tablet 100 mg 09/06/2019 10:00:00 PM EDT 100 mg Oral active 100 mg, Oral, Nightly, First dose on Thu09/06/19 at 22 00, For 30 days [facility] Medication administered onsite gadobutrol (GADAVIST) contrast injection 11 mL [id number] 0 09/06/2019 05:15:00 PM EDT 0.1 mL/kg Intravenous completed 11 mL (r ounded from 11.16 mL = 0.1 mL/kg 111.6 kg), Intravenous, 1 TIME IMAGING, Thu09/06/19 at 1715, For 1 dose
Do not mix or administer in the same IV line with other medications.
[facility] Medication administered onsite diphenhydrAMINE (BENADRYL) injection 25 mg [id number] 09/06/2019 01:00:00 PM EDT 25 mg Intravenous completed 25 mg, Intravenous, Once, Thu09/06/19 at 1300, For 1 dose [facility] Medication administered onsite magnesium sulfate in dextrose 5 % infusion (premix) 8 mEq 04 [id number] 09/06/2019 01:00:00 PM EDT 8 meq Intravenous completed 8 mEq, Intravenous, Administer over 60 Minutes, Once, Thu09/06/19 at 1300, For 1 dose
each 8 mEq equivalent to 1 gm
[facility] Medication administered onsite Acetaminophen 325 MG Oral [...] mg from all sources in 24 hours.
[facility] Medication administered onsite pantoprazole 40 MG Delayed Release Oral Tablet pantoprazole (PROTONIX) EC tablet 40 mg pantoprazole (PROTONIX) EC tablet 40 mg 09/06/2019 09:00:00 AM E DT 40 mg Oral active 40 mg, Ora l, Daily Standard, First dose on Thu09/06/19 at 0900, For 30 days
Do not crush or chew
[facility] Medication administered onsite mycophenolate mofetil 250 MG Oral Capsul e mycophenolate mofetil (CELLCEPT) capsule 1,000 mg mycophenolate mofetil (CELLCEPT) capsule 1,000 mg 08/21 08:00:00 AM EDT 1000 mg Oral active 1,000 mg, Oral, Three Times Daily, First dose on Thu09/06/19 at 0800, For 3 days [facility] Medication administered onsite venlafaxine (EFFEXOR-XR) 24 hr capsule 225 mg 09/06/19 08:00:00 AM EDT 225 mg Oral active 225 mg, Or al, Daily with Breakfast, First dose on Thu09/06/19 at 0800, For 30 days
Do not crush or chew
[facility] Medication administered onsite Pyridostigmine [place] 60 MG Oral Tablet pyridostigmin e (MESTINON) tablet 90 mg pyridostigmine (MESTINON) tablet 90 mg 09/06/2019 12:00:00 AM EDT 9 0 mg Oral active 90 mg, Oral, Ev fabiana 6 hours Standard (4 times per day), First dose on Thu09/06/19 at 0000, For 30 days [facility] Medication administered onsite Acetaminophen 325 MG Oral Tablet acetaminophen (TYLENO L) tablet 650 mg acetaminophen (TYLENOL) tablet 650 mg 09/05/2019 08:45:00 PM EDT 65 0 mg Oral completed 650 mg, Oral, O nce, 09/05/19 at 2044, For 1 dose
Maximum daily dose of acetaminophen is 3,000 mg from all sources in 24 hours.
[facility] Medication administered onsite Amantadine Hydrochloride 100 MG Oral Capsule amantadine HCl 09/02/2019 12:00:00 AM EDT 100 mg by mouth completed [id number] amantadine HCl by mouth [id number] 09/02/2019 10/02/2019 twice a day 30 100 mg capsule 00262 [id number] Kemi Buckley [id number] Psychiatric/Mental Health [facility]) aripiprazole 5 MG Oral Tablet [Abilify] Abilify 08/02/2019 12: 00:00 AM EDT 5 mg by mouth completed [id number] Abilify by mouth [id number] 08/02/2019 09/01/2019 at bedtime 30 5 mg tablet 64542 693601 [id number] Estela Balbuena [id number] Nurse Practitioner [facility] ([facility]) aripiprazole 5 MG Oral Tablet [Abilify] Abilify 08/02/2019 12: 00:00 AM EDT 5 mg by mouth completed 837525 Abilify by mouth [id number] 08/02/2019 09/01/2019 at bedtime 30 5 mg tablet 03547 010223 [id number] Estela Balbuena [id number] Nurse Practitioner [facility] ([facility]) Naltrexone hydrochloride 50 MG Oral Tabl et Naltrexone HCl 50 MG Oral Tablet (DEPADE) Naltrexone HCl 50 MG Oral Tablet (DEPADE) 08/02/2019 12:00:00 AM EDT active Only take as directed on your [facility] Mirtazapine 30 MG Oral Tablet mirtazapine 07/28/2019 12:00:00 AM EDT 30 mg by mouth completed 039114 mirtazapine by mouth [id number] 07/2703/25/2020 at bedtime 30 30 mg tablet 88500 [id number] Estela Balbuena [id number] Nurse Practitioner [facility] ([facility]) Clozapine 100 MG Oral Tablet [Clozaril] Clozaril 07/28/2019 12: 00:00 AM EDT 100 mg by mouth completed 165829 Clozaril by mouth C3828 8 07/28/2019 09/24/2019 at bedtime 30 100 mg tablet as directed 16443 875691 [id number] Nikko Balbuena [id number] Nurse Practitioner [facility] ([facility]) Mirtazapine 30 MG Oral Tablet mirtazapine 07/28/2019 12:00:00 AM EDT 30 mg by mouth completed 130036 mirtazapine by mouth [id number] 07/2708/27/2019 at bedtime 30 30 mg tablet 82192 810390 [id number] Estela Balbuena [id number] Nurse Practitioner [facility] ([facility]) Mirtazapine 30 MG Oral Tablet mirtazapine 07/28/2019 12:00:00 AM EDT 30 mg by mouth completed 504306 mirtazapine by mouth [id number] 07/2701/23/2020 at bedtime 30 30 mg tablet 95876 339913 [id number] Estela Balbuena [id number] Nurse Practitioner [facility] ([facility]) zaleplon 10 MG Oral Capsule zaleplon 07/28/2019 12:00:00 AM EDT 10 mg by mouth completed 078883 zaleplon by mouth [id number] 07/28/19 20 09/24/2019 at bedtime 30 10 mg capsule 07608 636356 [id number] Nikko Balbuena 3 [id number] Nurse Practitioner [facility] ([facility]) Mirtazapine 30 MG Oral Tablet mirtazapine 07/28/2019 12:00:00 AM EDT 30 mg by mouth completed 803108 mirtazapine by mouth [id number] 07/2708/27/2019 at bedtime 30 30 mg tablet 13357 900854 [id number] Estela Balbuena [id number] Nurse Practitioner [facility] ([facility]) Mirtazapine 30 MG Oral Tablet mirtazapine 07/28/2019 12:00:00 AM EDT 30 mg by mouth completed 194435 mirtazapine by mouth [id number] 07/2711/23/2019 at bedtime 30 30 mg tablet 47526 381060 [id number] Estela Balbuena [id number] Nurse Practitioner [facility] ([facility]) Clozapine 100 MG Oral Tablet [Clozaril] Clozaril 07/28/2019 12: 00:00 AM EDT 100 mg by mouth completed 931027 Clozaril by mouth [id number] 8 07/28/2019 08/27/2019 at bedtime 30 100 mg tablet as directed 39759 286348 [phone] Nikko Balbuena [id number] Nurse Practitioner [facility] ([facility]) zaleplon 10 MG Oral Capsule zaleplon 07/28/2019 12:00:00 AM EDT 10 mg by mouth completed 187802 zaleplon by mouth [id number] 07/28/19 20 09/24/2019 at bedtime 30 10 mg capsule 59826 179304 [id number] Nikko Balbuena 3 [id number] Nurse Practitioner [facility] ([facility]) zaleplon 10 MG Oral Capsule zaleplon 07/28/2019 12:00:00 AM EDT 10 mg by mouth completed 697784 zaleplon by mouth [id number] 07/28/19 20 08/27/2019 at bedtime 30 10 mg capsule 34598 050658 [id number] Nikko Balbuena 3 [id number] Nurse Practitioner [facility] ([facility]) Clozapine 100 MG Oral Tablet [Clozaril] Clozaril 07/28/2019 12: 00:00 AM EDT 100 mg by mouth completed 628186 Clozaril by mouth C3828 8 07/28/2019 09/02/2019 at bedtime 30 100 mg tablet as directed [id number] Nikko Balbuena [id number] Nurse Practitioner [facility] ([facility]) torsemide 20 MG Oral Tablet Torsemide 07/01/2019 12:00:00 AM EDT active MEDENT ([facility]) doxycycline hyclate 100 MG Oral Capsule Doxycycline Hyclate 07/01/2019 12:00:00 AM EDT active MEDENT ([facility]) torsemide 20 MG Oral Tablet Torsemide 20 MG Torsemide 20 MG 06/01/2019 12:00:00 AM EDT active 1 tab eCW1 ([facility]) torsemide 20 MG Oral Tablet Torsemide 20 MG Torsemide 20 MG 06/01/2019 12:00:00 AM EDT active 1 tab eCW1 ([facility]) Senna 8.6 MG Senna 8.6 MG 06/01/2019 12:00:00 AM EDT active 2 tablets at bedtime as needed eCW1 ([facility]) Senna 8.6 MG Senna 8.6 MG 06/01/2019 12:00:00 AM EDT active 2 tablets at bedtime as needed eCW1 ([facility]) Senna 8.6 MG Senna 8.6 MG 06/01/2019 12:00:00 AM EDT active 2 tablets at bedtime as needed eCW1 ([facility]) torsemide 20 MG Oral Tablet Torsemide 20 MG Torsemide 20 MG 06/01/2019 12:00:00 AM EDT active 1 tab eCW1 ([facility]) Senna 8.6 MG Senna 8.6 MG 06/01/2019 12:00:00 AM EDT active 2 tablets at bedtime as needed eCW1 ([facility]) torsemide 20 MG Oral Tablet Torsemide 20 MG Torsemide 20 MG 06/01/2019 12:00:00 AM EDT active 1 tab eCW1 ([facility]) Lorazepam 1 MG Oral Tablet [Ativan] Ativan 05/25/2019 12:00:00 AM EST 1 mg by mouth completed [id number] Ativan by mouth [id number] 05/25/2019 06/24/2019 at bedtime 30 1 mg tablet 13543 308330 [id number] Mg Viramontes 36 [id number] Psych[facility]/Mental Health [facility] ([facility]) Lorazepam 1 MG Oral Tablet [Ativan] Ativan 05/25/2019 12:00:00 AM EST 1 mg by mouth completed [id number] Ativan by mouth [id number] 05/25/2019 06/24/2019 at bedtime 30 1 mg tablet 08260 705590 [id number] Mg Viramontes 36 [id number] Psych[facility] ([facility]) Lorazepam 1 MG Oral Tablet [Ativan] Ativan 05/25/2019 12:00:00 AM EST 1 mg by mouth completed [id number] Ativan by mouth [id number] 05/25/2019 07/23/2019 at bedtime 30 1 mg tablet 46116 600688 [id number] Nikko Balbuena 36 [id number] Nurse Practitioner [facility] ([facility]) Lorazepam 1 MG Oral Tablet [Ativan] Ativan 05/25/2019 12:00:00 AM EST 1 mg by mouth completed [id number] Ativan by mouth [id number] 05/25/2019 06/24/2019 at bedtime 30 1 mg tablet 45540 693214 [id number] Mg Viramontes 36 [id number] Psychiatric/Mental Health [facility] ([facility]) 1 ML Ketorolac Tromethamine 30 MG/ML [place] ketorolac (TORADOL) 30 MG/ML injection 30 mg ketorolac (TORADOL) 30 MG/ML injection 30 mg 0 10:00:00 AM EST 30 mg Intravenous completed 30 mg, Intravenous, Once, e 05/17/19 at 1000, For 1 dose, Recovery
In PACU
[facility] Medication administered onsite ondansetron (ZOFRAN) injection 4 mg [id number] 05/17/2019 09:57:3 9 AM EST 4 mg Intravenous active 4 mg, In travenous, Once PRN, Nausea, Vomiting, Starting Thu05/17/19 at 0957, For 1 dose, Recovery [facility] Medication administered onsite fentaNYL (SUBLIMAZE) (PF) injection 25 mcg [id number] 05/17/2019 09:57:39 AM EST 25 ug Intravenous active 25 m cg, Intravenous, Every 5 min PRN, Severe Pain (Pain Scale Score 7-10), Starting Thu05/17/19 at 0957, For 10 doses, [facility] Medication administered onsite fentaNYL (SUBLIMAZE) (PF) injection 12.5 mcg [id number] 05/17/2019 09:57:39 AM EST 12.5 ug Intravenous active 12.5 mcg, Intravenous, Every 5 min PRN, Moderate Pain (Pain Scale Score 4-6), Starting Thu05/17/19 at 0957, For 10 doses, [facility] Medication administered onsite TC-99M tilmanocept (LYMPHOSEEK) [id number] 05/17/2019 07:15:00 AM EST Intravenous completed Intravenous, Once, e 05/17/19 at 0715, For 1 dose, Imaging Protocol [facility] Medication administered onsite Calcium Chloride 0.0014 MEQ/ML / Potassi um Chloride 0.004 MEQ/ML / Sodium Chloride 0.103 MEQ/ML / Sodium Lactate 0.028 MEQ/ML Injectable Solution lactated ringers infusion lactated ringers infusion 05/17/2019 06:30:00 AM EST 100 mL/h Intravenous active at 100 m L/hr, Intravenous, Continuous, Starting Thu05/17/19 at 0630, For 1 day
Keep Vein Open. Use Wide Tubing.
Pre-op [facility] Medication administered onsite Acetaminophen 325 MG / Hydrocodone Fady trate 5 MG Oral Tablet HYDROcodone- Acetaminophen 5-325 MG Oral Tablet (LORTAB) HYDROcodone-Acetaminophen 5-325 MG Oral Tablet (LORTAB) 05/17/2019 12:00:00 AM EST Oral active Take 1-2 tablets by mouth every 6 (six) hours as needed for Pain for up to 10 days, Max Daily Dose: 8 tablets [facility] zaleplon 10 MG Oral Capsule zaleplon 05/11/2019 12:00:00 AM EST 10 mg by mouth completed [id number] zaleplon by mouth [id number] 05/11/19 20 07/07/2019 at bedtime 30 10 mg capsule 61314 [id number] Kemi Buckley [id number] Psych[facility] ([facility]) zaleplon 10 MG Oral Capsule zaleplon 05/11/2019 12:00:00 AM EST 10 mg by mouth completed [id number] zaleplon by mouth [id number] 05/11/19 20 07/23/2019 at bedtime 30 10 mg capsule 47160 [id number] Nikko Balbuena 3 [id number] Nurse Practitioner [facility] ([facility]) Omeprazole 20 MG Delayed Release Oral Ca psule Omeprazole 20 MG Oral Capsule Delayed Release (PriLOSEC) Omeprazole 20 MG Oral Capsule Delayed Re lease (PriLOSEC) 05/04/2019 12:00:00 AM EST 20 mg Oral active Take 20 mg by mouth daily [facility] ramelteon 8 MG Oral Tablet Ramelteon 8 MG Oral Tablet (ROZEREM) Ramelteon 8 MG Oral Tablet (ROZEREM) 05/04/2019 12:00:00 AM EST 8 mg Oral active Take 8 mg by mouth nightly [facility] Clozapine 100 MG Oral Tablet cloZAPine 100 MG Oral Tab let (CLOZARIL) cloZAPine 100 MG Oral Tablet (CLOZARIL) 05/04/2019 12:00:00 AM EST 100 mg Ora l active Take 100 mg by mouth nightly [facility] Clozapine 100 MG Oral Tablet [Clozaril] Clozaril 05/02/2019 12: 00:00 AM EST 100 mg by mouth completed [id number] Clozaril by mouth [id number] 8 05/02/2019 07/21/2019 at bedtime 28 100 mg tablet as directed 01930 [id number] [id number] Nikko Balbuena [id number] Nurse Practitioner [facility] ([facility]) Clozapine 100 MG Oral Tablet [Clozaril] Clozaril 05/02/2019 12: 00:00 AM EST 100 mg by mouth completed [id number] Clozaril by mouth [id number] 8 05/02/2019 06/29/2019 at bedtime 28 100 mg tablet as directed 16097 717017 [id number] Mg Viramontes [id number] Psych[facility]ental Health [facility] ([facility]) Lorazepam 0.5 MG Oral Tablet [Ativan] Ativan 04/21/2019 12:00 :00 AM EST 0.5 mg by mouth completed 749641 Ativan by mouth [id number] 0 04/21/2019 05/21/2019 at bedtime 30 0.5 mg tablet 56983 427593 [id number] Mg Viramontes [id number] Psych[facility] ([facility]) Lorazepam 0.5 MG Oral Tablet LORazepam 0.5 MG Oral Tab let (ATIVAN) LORazepam 0.5 MG Oral Tablet (ATIVAN) 04/21/2019 12:00:00 AM EST aborted TAKE ONE TABLET BY MOUTH EVERY DAY AT BEDTIME MAXIMUM DAILY DOSE 1 TABLET [facility] Furosemide 20 MG Oral Tablet Furosemide 20 MG Oral Tab let (LASIX) Furosemide 20 MG Oral Tablet (LASIX) 04/09/2019 12:00:00 AM EST 20 mg Oral aborted Take 20 mg by mouth daily [facility] zaleplon 10 MG Oral Capsule zaleplon 03/09/2019 12:00:00 AM EST 10 mg by mouth completed [id number] zaleplon by mouth [id number] 03/09/20 19 04/30/2019 at bedtime 30 10 mg capsule 95349 492371 [id number] Mg Viramontes 3 [id number] [facility] ([facility]) zaleplon 10 MG Oral Capsule zaleplon 03/09/2019 12:00:00 AM EST 10 mg by mouth completed [id number] zaleplon by mouth [id number] 03/09/20 19 04/30/2019 at bedtime 30 10 mg capsule 03383 503631 [id number] Mg Viramontes 3 [id number] [facility] ([facility]) 24 HR venlafaxine 75 MG Extended Release Oral Tablet venlafa xine 02/28/2019 12:00:00 AM EST 75 mg by mouth completed 344394 ve nlafaxine by mouth [id number] 02/28/2019 08/23/2019 every morning 30 75 mg tablet exte nded release 24hr 94747 453697 [id number] Mg Viramontes [id number] Ps hiatric/Mental Health [facility] ([facility]) 24 HR venlafaxine 75 MG Extended Release Oral Tablet venlafa xine 02/28/2019 12:00:00 AM EST 75 mg by mouth completed [id number] ve nlafaxine by mouth [id number] 02/28/2019 09/21/2019 every morning 30 75 mg tablet exte nded release 24hr 33316 597157 [id number] Nikko Balbuena [id number] Nurse Daniela hernandez [facility] ([facility]) 24 HR venlafaxine 75 MG Extended Release Oral Tablet venlafa xine 02/28/2019 12:00:00 AM EST 75 mg by mouth completed [id number] ve nlafaxine by mouth [id number] 02/28/2019 06/29/2019 every morning 30 75 mg tablet exte nded release 24hr 03872 613923 [id number] Mg Viramontes [id number] Ps ychiatric/Mental Health [facility] ([facility]) 24 HR venlafaxine 75 MG Extended Release Oral Tablet venlafa xine 02/28/2019 12:00:00 AM EST 75 mg by mouth completed 490394 ve nlafaxine by mouth [id number] 02/28/2019 08/27/2019 every morning 30 75 mg tablet exte nded release 24hr 11077 193111 [id number] Nikko Blaine [id number] Nurse Practi tioner [facility] ([facility]) 24 HR venlafaxine 75 MG Extended Release Oral Tablet venlafa xine 02/28/2019 12:00:00 AM EST 75 mg by mouth completed [id number] ve nlafaxine by mouth [id number] 02/28/2019 11/23/2019 every morning 30 75 mg tablet exte nded release 24hr 85632 [id number] Nikko Balbuena [id number] Nurse Practi tioner [facility] ([facility]) 24 HR venlafaxine 75 MG Extended Release Oral Tablet venlafa xine 02/28/2019 12:00:00 AM EST 75 mg by mouth completed [id number] ve nlafaxine by mouth [id number] 02/28/2019 08/27/2019 every morning 30 75 mg tablet exte nded release 24hr 50932 [id number] Nikko Blaine [id number] Nurse Practi tioner [facility] ([facility]) Doxycycline Monohydrate 100 MG Oral Capsule Doxycycline Edmonson hydrate 02/26/2019 12:00:00 AM EST ORAL completed MEDENT ([facility]) Prednisone 20 MG Oral Tablet Prednisone 02/26/2019 12:00:00 AM EST ORAL completed MEDENT ([facility]) 200 ACTUAT Albuterol 0.09 MG/ACTUAT Metered Dose Inhaler [Pr oAir] Proair HFA 02/26/2019 12:00:00 AM EST ORAL completed MEDENT ([facility]) Amphetamine aspartate 5 MG / Amphetamine Sulfate 5 MG / Dextroamphetamine saccharate 5 MG / Dextroamphetamine Sulfate 5 MG Oral Tablet [Adderall] Adderall 01/17/2019 12:00:00 AM EDT 20 mg by mouth completed [id number] Adderall by mouth [id number] 01/17/2019 03/16/2019 twice a day 30 20 mg tablet [id number] [facility] [id number] Psychiatry [facility] ([facility]) Amphetamine aspartate 5 MG / Amphetamine Sulfate 5 MG / Dextroamphetamine saccharate 5 MG / Dextroamphetamine Sulfate 5 MG Oral Tablet [Adderall] Adderall 01/17/2019 12:00:00 AM EDT 20 mg by mouth completed [id number] Adderall by mouth [id number] 01/17/2019 05/21/2019 twice a day 30 20 mg tablet 28869 087126 [id number] Mg Viramontes [id number] Psych[facility] ([facility]) Amphetamine aspartate 5 MG / Amphetamine Sulfate 5 MG / Dextroamphetamine saccharate 5 MG / Dextroamphetamine Sulfate 5 MG Oral Tablet [Adderall] Adderall 01/17/2019 12:00:00 AM EDT 20 mg by mouth completed [id number] Adderall by mouth [id number] 01/17/2019 05/21/2019 twice a day 30 20 mg tablet 44601 155287 [id number] Mg Viramontes [id number] Psych[facility] ([facility]) Amphetamine aspartate 5 MG / Amphetamine Sulfate 5 MG / Dextroamphetamine saccharate 5 MG / Dextroamphetamine Sulfate 5 MG Oral Tablet [Adderall] Adderall 01/17/2019 12:00:00 AM EDT 20 mg by mouth completed [id number] Adderall by mouth [id number] 01/17/2019 04/30/2019 twice a day 30 20 mg tablet 55838 401761 [id number] Mg Viramontes [id number] Psych[facility] ([facility]) Amphetamine aspartate 5 MG / Amphetamine Sulfate 5 MG / Dextroamphetamine saccharate 5 MG / Dextroamphetamine Sulfate 5 MG Oral Tablet [Adderall] Adderall 01/17/2019 12:00:00 AM EDT 20 mg by mouth completed 712905 Adderall by mouth [id number] 01/17/2019 05/21/2019 twice a day 30 20 mg tablet 41115 165421 [id number] Mg Viramontes [id number] Psych[facility] ([facility]) Docusate Sodium 100 MG Oral Capsule [Colace] Colace 12:00:00 AM EDT 100 mg by mouth completed [id number] Colace by mouth [id number] 8 11/16/2018 04/17/2019 every morning 30 100 mg capsule 79098 989198 [id number] 4 Mg Viramontes [id number] Psych[facility] Health [facility] ([facility]) ramelteon 8 MG Oral Tablet ramelteon 11/16/2018 12:00:00 AM EDT 8 mg by mouth completed [id number] ramelteon by mouth [id number] 11/16/2018 at bedtime 30 8 mg tablet 87435 969856 [id number] Mg Viramontes 36 [id number] Psych[facility] ([facility]) Docusate Sodium 100 MG Oral Capsule [Colace] Colace 12:00:00 AM EDT 100 mg by mouth completed [id number] Colace by mouth [id number] 8 11/16/2018 09/21/2019 every morning 30 100 mg capsule 87705 199166 [id number] 4 Nikko Balbuena [id number] Nurse Practitioner [facility] ([facility]) ramelteon 8 MG Oral Tablet ramelteon 11/16/2018 12:00:00 AM EDT 8 mg by mouth completed [id number] ramelteon by mouth [id number] 11/16/2018 at bedtime 30 8 mg tablet 59852 490622 [id number] Mg Viramontes 36 [id number] Psych[facility] ([facility]) ramelteon 8 MG Oral Tablet ramelteon 11/16/2018 12:00:00 AM EDT 8 mg by mouth completed [id number] ramelteon by mouth [id number] 11/16/2018 at bedtime 30 8 mg tablet 23730 975790 [id number] Mg Viramontes 36 [id number] Psych[facility] Health [facility] ([facility]) Docusate Sodium 100 MG Oral Capsule [Colace] Colace 12:00:00 AM EDT 100 mg by mouth completed [id number] Colace by mouth [id number] 8 11/16/2018 06/29/2019 every morning 30 100 mg capsule 05773 322615 [id number] 4 Mg Viramontes [id number] Psychiatric/Mental Health [facility] ([facility]) ramelteon 8 MG Oral Tablet ramelteon 11/16/2018 12:00:00 AM EDT 8 mg by mouth completed [id number] ramelteon by mouth [id number] 11/16/2018 at bedtime 30 8 mg tablet 16516 986208 [id number] Mg Viramontes 36 [id number] Psych[facility] Health [facility] ([facility]) Docusate Sodium 100 MG Oral Capsule [Colace] Colace 12:00:00 AM EDT 100 mg by mouth completed [id number] Colace by mouth [id number] 8 11/16/2018 06/29/2019 every morning 30 100 mg capsule 55312 614416 [id number] 4 Mg Viramontes [id number] Psych[facility]Mental Health [facility] ([facility]) ramelteon 8 MG Oral Tablet ramelteon 11/16/2018 12:00:00 AM EDT 8 mg by mouth completed [id number] ramelteon by mouth [id number] 11/16/2018 at bedtime 30 8 mg tablet 31754 156557 [id number] Mg Viramontes 36 [id number] Psych[facility] ([facility]) Docusate Sodium 100 MG Oral Capsule [Colace] Colace 12:00:00 AM EDT 100 mg by mouth completed [id number] Colace by mouth [id number] 8 11/16/2018 02/14/2019 every morning 30 100 mg capsule 99484 021627 [id number] 4 Mg Viramontes [id number] Psych[facility]Mental Health [facility] ([facility]) ramelteon 8 MG Oral Tablet ramelteon 11/16/2018 12:00:00 AM EDT 8 mg by mouth completed [id number] ramelteon by mouth [id number] 11/16/2018 at bedtime 30 8 mg tablet 16569 018057 [id number] Mg Viramontes 36 [id number] Psych[facility] Health [facility] ([facility]) Docusate Sodium 100 MG Oral Capsule [Colace] Colace 12:00:00 AM EDT 100 mg by mouth completed [id number] Colace by mouth [id number] 8 11/16/2018 07/28/2019 every morning 30 100 mg capsule 12546 774951 [id number] 4 Nikko Balbuena [id number] Nurse Practitioner [facility] ([facility]) Docusate Sodium 100 MG Oral Capsule [Colace] Colace 12:00:00 AM EDT 100 mg by mouth completed [id number] Colace by mouth [id number] 8 11/16/2018 06/29/2019 every morning 30 100 mg capsule 34144 034886 [id number] 4 Mg Viramontes [id number] Psych[facility] Health [facility] ([facility]) ramelteon 8 MG Oral Tablet ramelteon 11/16/2018 12:00:00 AM EDT 8 mg by mouth completed [id number] ramelteon by mouth [id number] 11/16/2018 at bedtime 30 8 mg tablet 07927 768919 [id number] Nikko Balbuena 36 [id number] Nurse Practitioner [facility] ([facility]) Docusate Sodium 100 MG Oral Capsule [Colace] Colace 12:00:00 AM EDT 100 mg by mouth completed [id number] Colace by mouth [id number] 8 11/16/2018 06/29/2019 every morning 30 100 mg capsule 26319 856748 [id number] 4 Mg Viramontes [id number] Psych[facility] Health [facility] ([facility]) ramelteon 8 MG Oral Tablet ramelteon 11/16/2018 12:00:00 AM EDT 8 mg by mouth completed [id number] ramelteon by mouth [id number] 11/16/2018 at bedtime 30 8 mg tablet 73209 728530 [id number] Nikko Balbuena 36 [id number] Nurse Practitioner [facility] ([facility]) ropinirole 0.25 MG Oral Tablet [Requip] Requip 08/24/2018 12: 00:00 AM EDT 0.25 mg by mouth completed [id number] Requip by mouth [id number] 0 08/24/2018 03/31/2019 every morning 30 0.25 mg tablet 84564 721500 [id number] 4 Mg Viramontes [id number] [facility] Health [facility] ([facility]) ropinirole 0.25 MG Oral Tablet [Requip] Requip 08/24/2018 12: 00:00 AM EDT 0.25 mg by mouth completed [id number] Requip by mouth [id number] 0 08/24/2018 03/31/2019 every morning 30 0.25 mg tablet 97716 720123 [id number] 4 Mg Viramontes [id number] Psych[facility] ([facility]) ropinirole 0.25 MG Oral Tablet [Requip] Requip 08/24/2018 12: 00:00 AM EDT 0.25 mg by mouth completed [id number] Requip by mouth [id number] 0 08/24/2018 09/22/2019 every morning 30 0.25 mg tablet 19155 104571 [id number] 4 Mg Viramontes [id number] [facility] Health [facility] ([facility]) ropinirole 0.25 MG Oral Tablet [Requip] Requip 08/24/2018 12: 00:00 AM EDT 0.25 mg by mouth completed [id number] Requip by mouth [id number] 0 08/24/2018 10/21/2019 every morning 30 0.25 mg tablet 03851 172747 [id number] 4 Nikko Balbuena [id number] Nurse Practitioner [facility] ([facility]) ropinirole 0.25 MG Oral Tablet [Requip] Requip 08/24/2018 12: 00:00 AM EDT 0.25 mg by mouth completed [id number] Requip by mouth [id number] 0 08/24/2018 03/31/2019 every morning 30 0.25 mg tablet 95793 627297 [id number] 4 Mg Viramontes [id number] [facility] Health [facility] ([facility]) ropinirole 0.25 MG Oral Tablet [Requip] Requip 08/24/2018 12: 00:00 AM EDT 0.25 mg by mouth completed [id number] Requip by mouth [id number] 0 08/24/2018 07/01/2019 every morning 30 0.25 mg tablet 72745 692499 [id number] 4 Mg Viramontes [id number] Psych[facility] Health [facility] ([facility]) ropinirole 0.25 MG Oral Tablet [Requip] Requip 08/24/2018 12: 00:00 AM EDT 0.25 mg by mouth completed [id number] Requip by mouth [id number] 0 08/24/2018 03/31/2019 every morning 30 0.25 mg tablet 09203 387661 [id number] 4 Mg Viramontes [id number] [facility] Health [facility] ([facility]) ropinirole 0.25 MG Oral Tablet [Requip] Requip 08/24/2018 12: 00:00 AM EDT 0.25 mg by mouth completed [id number] Requip by mouth [id number] 0 08/24/2018 07/01/2019 every morning 30 0.25 mg tablet 72151 495566 [id number] 4 Mg Viramontes [id number] [facility] Health [facility] ([facility]) ropinirole 0.25 MG Oral Tablet [Requip] Requip 08/24/2018 12: 00:00 AM EDT 0.25 mg by mouth completed [id number] Requip by mouth [id number] 0 08/24/2018 07/28/2019 every morning 30 0.25 mg tablet 69133 207851 [id number] 4 Nikko Balbuena [id number] Nurse Practitioner [facility] ([facility]) ropinirole 0.25 MG Oral Tablet [Requip] Requip 08/24/2018 12: 00:00 AM EDT 0.25 mg by mouth completed [id number] Requip by mouth [id number] 0 08/24/2018 07/01/2019 every morning 30 0.25 mg tablet 96950 458975 [id number] 4 Mg Viramontes [id number] Psych[facility] Health [facility] ([facility]) Folic Acid 1 MG Oral Tablet Folic Acid 1 MG Oral Table t (FOLVITE) Folic Acid 1 MG Oral Tablet (FOLVITE) 06/10/2018 12:00:00 AM EDT aborted TAKE ONE TABLET BY MOUTH EVERY DAY [facility] Naltrexone hydrochloride 50 MG Oral Tablet naltrexone 06/04/2018 12:00:00 AM EDT 50 mg by mouth completed [id number] naltrexone by [facility] [id number] 06/04/2018 07/28/2019 once a day 50 mg tablet as directed 90313 868981 [id number] Nikko Balbuena [id number] Nurse Practitioner [facility] ([facility]) Amphetamine aspartate 2.5 MG / Amphetami ne Sulfate 2.5 MG / Dextroamphetamine saccharate 2.5 MG / Dextroamphetamine Sulfate 2.5 MG Oral Tablet Amphetamine- Dextroamphetamine 10 MG Oral Tablet (ADDERALL) Amphetamine-Dextroamphetamine 10 MG Oral Tablet (ADDERALL) 05/11/2018 12:00:00 AM EST aborted TAKE ONE TABLET BY MOUTH TWICE A DAY MAXIMUM DAILY DOSE 2 [facility] Mirtazapine 30 MG Oral Tablet mirtazapine 02/22/2018 12:00:00 AM EST 30 mg by mouth completed [id number] mirtazapine by mouth [id number] 02/2203/31/2019 at bedtime 30 30 mg tablet 00374 121617 [id number] [facility] [place] [id number] Psychiatric/Mental Health [facility] ([facility]) Mirtazapine 30 MG Oral Tablet mirtazapine 02/22/2018 12:00:00 AM EST 30 mg by mouth completed [id number] mirtazapine by mouth [id number] 02/2207/01/2019 at bedtime 30 30 mg tablet 72370 053127 [id number] [facility] [place] [id number] Psychiatric/Mental Health [facility] ([facility]) Mirtazapine 30 MG Oral Tablet mirtazapine 02/22/2018 12:00:00 AM EST 30 mg by mouth completed [id number] mirtazapine by mouth [id number] 02/2203/31/2019 at bedtime 30 30 mg tablet 15715 919981 [id number] [facility] [place] [id number] Psychiatric/Mental Health [facility] ([facility]) Mirtazapine 30 MG Oral Tablet mirtazapine 02/22/2018 12:00:00 AM EST 30 mg by mouth completed [id number] mirtazapine by mouth [id number] 02/2203/31/2019 at bedtime 30 30 mg tablet 96932 481305 [id number] [facility] [place] [id number] Psychiatric/Mental Health [facility] ([facility]) Mirtazapine 30 MG Oral Tablet mirtazapine 02/22/2018 12:00:00 AM EST 30 mg by mouth completed [id number] mirtazapine by mouth [id number] 02/2203/31/2019 at bedtime 30 30 mg tablet 81115 107855 [id number] [facility] [place] [id number] Psychiatric/Mental Health [facility] ([facility]) Mirtazapine 30 MG Oral Tablet mirtazapine 02/22/2018 12:00:00 AM EST 30 mg by mouth completed [id number] mirtazapine by mouth [id number] 02/2207/01/2019 at bedtime 30 30 mg tablet 12810 318891 [id number] [facility] [place] [id number] Psych[facility]/Mental Health [facility] ([facility]) Prazosin 1 MG Oral Capsule prazosin (MINIPRESS) 1 MG c apsule prazosin (MINIPRESS) 1 MG capsule 02/09/2018 12:00:00 AM EST aborted [facility] Hydroxyzine Hydrochloride 50 MG Oral Tablet hydrOXYzin e (ATARAX) 50 MG tablet hydrOXYzine (ATARAX) 50 MG tablet 02/09/2018 12:00:00 AM EST aborted [facility] aripiprazole 20 MG Oral Tablet ARIPiprazole (ABILIFY) 20 MG tablet ARIPiprazole (ABILIFY) 20 MG tablet 01/29/2018 12:00:00 AM EST aborted [facility] Ondansetron 4 MG Disintegrating Oral Tab let ondansetron (ZOFRAN-ODT) 4 MG disintegrating tablet ondansetron (ZOFRAN-ODT) 4 MG disintegrating tablet 12/17/2017 12:00:00 AM EDT aborted DISSOLVE ONE TABLET ON TONGUE EVERY 4 HOURS NEEDED FOR NAUSEA [facility] Pyridostigmine [place] 60 MG Oral Tablet pyridostigmin e (MESTINON) 60 MG tablet pyridostigmine (MESTINON) 60 MG tablet 12/03/2017 12:00:00 AM EDT 9 0 mg Oral aborted Take 90 mg by mouth Four times daily [facility] Naltrexone hydrochloride 50 MG Oral Tablet naltrexone (DEPADE) 50 MG tablet naltrexone (DEPADE) 50 MG tablet 12/02/2017 12:00:00 AM EDT aborted Only take as directed on your handout [facility] aripiprazole 5 MG Oral Tablet ARIPiprazole (ABILIFY) 5 MG tablet ARIPiprazole (ABILIFY) 5 MG tablet 11/17/2017 12:00:00 AM EDT a [facility] Suvorexant 5 MG Oral Tablet [Belsomra] BELSOMRA 5 MG TABS BE LSOMRA 5 MG TABS 11/06/2017 12:00:00 AM EDT aborted [facility] Naproxen 375 MG Oral Tablet naproxen (NAPROSYN) 375 MG tablet naproxen (NAPROSYN) 375 MG tablet 09/19/2017 12:00:00 AM EDT aborted TAKE ONE TABLET BY MOUTH THREE TIMES A DAY NEEDED FOR PAIN [facility] Phenazopyridine hydrochloride 200 MG Ora l Tablet phenazopyridine (PYRIDIUM) 200 MG tablet phenazopyridine (PYRIDIUM) 200 MG tablet 08/27/2017 12:00:00 AM EDT aborted [facility] Folic Acid 1 MG Oral Tablet folic acid 12/04/2016 12:00:00 AM EDT 1 mg completed [id number] folic acid 12/04/2016 07/28/2019 once a day 1 mg tablet [id number] Nikko Balbuena [id number] Nurse P mimititioner [facility] ([facility]) Furosemide 20 MG Oral Tablet Furosemide 20 MG Oral Tab let (LASIX) Furosemide 20 MG Oral Tablet (LASIX) 20 mg Oral aborted Take 20 mg by mouth Two Times Daily [facility] Insurance Providers Payer name Policy type / Coverage type Policy ID Covered democrat ID Covered democrat's relationship to pichardo Policy Pichardo Plan Information HC COMMUNITY PLAN [facility] [id number] SP [id number] [facility] [id number] SP [id number] [facility] [id number] SP [id number] [facility] I [id number] Self [id number] [facility] I [id number] Self [id number] [facility] I [id number] Self [id number] [facility] I [id number] Self [id number] [facility] I [id number] Self [id number] [facility] O [id number] S [id number] [facility] [id number] SP [id number] Community Plan - [facility] Commercial [id number] Self [id number] [facility] Health Maintenance Organization (HMO) [id number] Self [id number] [facility] Health Maintenance Organization (HMO) [id number] Self [id number] [facility] Health Maintenance Organization (HMO) [id number] Self [id number] [facility] Health Maintenance Organization (HMO) [id number] Self [id number] ANSI-Medicaid [id number] ANSI-Medicaid [id number] [employer] COMMUNITY PLAN MCDO [id number] SP [id number] ANSI-Medicaid [id number] [facility] Health Maintenance Organization (HMO) [id number] Self [id number] [facility] Health Maintenance Organization (HMO) [id number] Self [id number] ANSI-Medicaid [id number] ANSI-Medicaid [id number] [facility] Community Plan Commercial [id number] Self [id number] [facility] Community Plan Medigap Part B [id number] Self [id number] ANSI-Medicaid [id number] ANSI-Medicaid [id number] ANSI-Medicaid [id number] [facility] Community Plan Commercial [id number] Self [id number] [facility] [id number] S [id number] [facility] [id number] S [id number] MEDICAID PROF FEES [id number] S [id number] MEDICAID [id number] S [id number] ANSI-Medicaid [id number] ANSI-Medicaid [id number] ANSI-Medicaid [id number] ANSI-Medicaid [id number] ANSI-Medicaid [id number] [facility] Health Maintenance Organization (HMO) [id number] [facility] [id number] ANSI-Medicaid [id number] ANSI-Medicaid [id number] ANSI-Medicaid [id number] ANSI-Medicaid [id number] ANSI-Medicaid [id number] ANSI-Medicaid [id number] [facility] [id number] ANSI-Medicaid [id number] ANSI-Medicaid [id number] ANSI-Medicaid [id number] ANSI-Medicaid [id number] [facility] Maintenance Organization (HMO) [id number] Self [id number] [employer] [facility](MCAID) O [id number] S [id number] [employer] COMMUNITY PLAN MCDHMO [id number] SP [id number] UNITED H [id number] Self [id number] [facility] Maintenance Organization (HMO) [id number] Self [id number] [facility] Maintenance Organization (HMO) [id number] Self [id number] [facility] Maintenance Organization (HMO) [id number] Self [id number] [facility] Maintenance Organization (HMO) [id number] Self [id number] [facility] Maintenance Organization (HMO) [id number] Self [id number] [facility] COMMUNITY PLAN MCDHMO [id number] SP [id number] [facility] Maintenance Organization (HMO) [id number] Self [id number] Community Plan - [facility] Commercial [id number] Self [id number] [facility] COMMUNITY PLAN MCDHMO [id number] SP [id number] UNHC COMMUNITY PLAN MCDHMO [id number] SP [id number] [facility] COMMUNITY PLAN MCDHMO [id number] SP [id number] [facility] Maintenance Organization (HMO) [id number] Self [id number] [facility] Maintenance Organization (HMO) [id number] Self [id number] [employer] [facility] MEDICAID [place] HMO [id number] S [id number] Community Plan - [facility] Commercial Self [employer] Commercial Self Medicaid [place] Medicaid Self [employer](MCAID) P [id number] S [id number] MEDICAID [id number] SP [id number] HMO BLUE [id number] SP [id number] [employer] P [id number] S [id number] BCBS [facility] BC [id number] S [id number] Problems, Conditions, and Diagnoses Code Display Name Description Problem Type Effective Dates Data Source(s) F41.1 Generalized anxiety disorder Generalized Anxiety Disor kyle Condition 01/17/2020 12:00:00 AM EDT [facility] ([facility]) F90.2 Attention-deficit hyperactivity disorder , combined type Attention- Deficit/Hyperactivity Disorder, Combined presentation Condition 01/17/2020 12:00:00 AM EDT [facility] ([facility]) F33.1 Major depressive disorder, recurrent, mo derate Major Depressive Disorder, Recurrent episode, Moderate Condition 01/17/2020 12:00:00 AM EDT [facility] ([facility]) D72.828 [id number] Other elevated white blood cell (WBC) cou nt Problem 08/03/2019 12:00:00 AM EDT eCW1 ([facility]) D72.828 246750141 Other elevated white blood cell (WBC) cou nt Problem 08/03/2019 12:00:00 AM EDT eCW1 ([facility]) R53.0 [id number] Neoplastic malignant related fatigue Prob lizet 07/01/2019 12:00:00 AM EDT eCW1 ([facility]) R53.0 [id number] Neoplastic malignant related fatigue Prob lizet 07/01/2019 12:00:00 AM EDT eCW1 ([facility]) K59.00 49068610 Constipation, unspecified constipation ty pe Problem 06/01/2019 12:00:00 AM EDT eCW1 ([facility]) K59.00 21909188 Constipation, unspecified constipation ty pe Problem 06/01/2019 12:00:00 AM EDT eCW1 ([facility]) N64.89 [id number] Breast hematoma Problem 05/27/2019 12:00:00 AM EST eCW1 ([facility]) N64.89 [id number] Breast hematoma Problem 05/27/2019 12:00:00 AM EST eCW1 ([facility]) C50.911 014128872 Infiltrating ductal carcinoma of right br east Problem 05/18/2019 12:00:00 AM EST eCW1 ([facility]) C50.911 [id number] Infiltrating ductal carcinoma of right br east Problem 05/18/2019 12:00:00 AM EST eCW1 ([facility]) G70.00 37046649 Myasthenia gravis without (acute) exacerb ation Problem 04/19/2019 12:00:00 AM EST eCW1 ([facility]) C50.311 338505205 Malignant neoplasm o f lower-inner quadrant of right female breast Problem 04/19/2019 12:00:00 AM EST eCW1 ([facility]) C50.311 750901599 Malignant neoplasm o f lower-inner quadrant of right female breast Problem 04/19/2019 12:00:00 AM EST eCW1 ([facility]) C50.919 836395837 Infiltrating ductal carcinoma Problem 04/14/2019 12:00:00 AM EST eCW1 ([facility]) C50.919 022698691 Infiltrating ductal carcinoma Problem 04/14/2019 12:00:00 AM EST eCW1 ([facility]) F28 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 Specified 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 Condition 03/22/2019 12:00:00 AM EST [facility] ([facility]) F06.34 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 Bipolar and Related Disorder Due to Another Medical Condition, With mixed features Condition 03/22/2019 12:00:00 AM EST [facility] ([facility]) F42.2 Mixed obsessional thoughts and acts Obsessive-Co mpulsive Disorder Condition 03/22/2019 12:00:00 AM EST [facility] ([facility]) F42.4 Excoriation (skin-picking) disorder Excoriation (Skin-Picking) Disorder Condition 03/22/2019 12:00:00 AM EST [facility] ([facility]) G70.00 Myasthenia gravis without (acute) exacer bation Myasthenia gravis without (acute) exacerbation Condition 03/22/2019 12:00:00 AM EST [facility] ([facility]) F33.42 Major depressive disorder, recurrent, in full remission Major Depressive Disorder, Recurrent episode, In full remission Condition 019 12:00:00 AM EST [facility] ([facility]) E66.1 [id number] Drug-induced obesity Problem 02/14/2019 12:0 0:00 AM EST eCW1 ([facility]) Z68.41 240905346 Body mass index (BMI) 40.0-44.9, adult Pr oblem 02/14/2019 12:00:00 AM EST eCW1 ([facility]) E66.1 380230917 Drug-induced obesity Problem 02/14/2019 12:0 0:00 AM EST eCW1 ([facility]) Z68.41 088883850 Body mass index (BMI) 40.0-44.9, adult Pr oblem 02/14/2019 12:00:00 AM EST eCW1 ([facility]) ct sim ct sim Diagnosis 12/26/2019 07:54:18 AM ED [facility] consult consult Diagnosis 10/21/2019 11:30:45 AM ED [facility] H47.10 Unspecified papilledema Unspecified papilledema Diagno sis 09/13/2019 12:01:02 PM [facility] G93.2 Benign intracranial hypertension Benign intracra nial hypertension Diagnosis 09/05/2019 10:21:20 PM [facility] H54.7 Unspecified visual loss Unspecified visual loss Diagno sis 09/05/2019 06:19:31 PM [facility] Papilledema Papilledema Diagnosis 09/05/2019 06:19:31 PM [facility] Malignant neoplasm of right breast in female, estrogen receptor positive, unspecified site of breast [C50.911, Z17.0] Malignant neoplasm of right breast in female, estrogen receptor positive, unspecified site of breast [C50.911, Z17.0] Diagnosis 05/17/2019 06:16:42 AM [facility] C50.919 Malignant neoplasm of unspecified site o f unspecified female breast Malignant neoplasm of unspecified site of unspecified female breast Diagnosis 05/12/2019 09:38:00 AM [facility] Z17.0 Estrogen receptor positive status [ER+] Estrogen receptor positive status (ER+) Diagnosis 05/09/2019 11:02:15 AM [facility] C50.311 Malignant neoplasm of lower-inner quadra nt of right female breast Malignant neoplasm of lower-inner quadrant of right female breast Diagnosis 05/09/2019 11:02:15 AM [facility] C50.911 Malignant neoplasm of unspecified site o f right female breast Malignant neoplasm of unspecified site of right female breast Diagnosis 11:02:15 AM [facility] Z80.43 Family history of malignant neoplasm of testis Family history of malignant neoplasm of testis Diagnosis 05/09/2019 10:59:51 AM [facility] Z80.0 Family history of malignant neoplasm of digestive organs Family history of malignant neoplasm of digestive organs Diagnosis 05/09/2019 10:59:37 AM [facility] Z80.49 Family history of malignant neoplasm of other genital organs Family history of malignant neoplasm of other genital organs Diagnosis 05/09/2019 10:59:28 AM [facility] Surgeries/Procedures Procedure Description Date Indications Data Source(s) OFFICE OUTPATIENT VISIT 15 MINUTES 01/16 12:00:00 AM EDT - 01/17/2020 12:00:00 AM EDT [facility] ([facility]) OFFICE OUTPATIENT VISIT 15 MINUTES 01/17/2020 12:00:00 AM EDT [facility] ([facility]) Extended Individual Psychotherapy - 45 min 12/29/2019 12:00:00 AM EDT - 12/29/2019 12:00:00 AM EDT [facility] ([facility]) Extended Individual Psychotherapy - 45 min 0 12:00:00 AM EDT [facility] ([facility]) OFFICE OUTPATIENT VISIT 15 MINUTES 12/19 12:00:00 AM EDT - 12/20/2019 12:00:00 AM EDT [facility] ([facility]) OFFICE OUTPATIENT VISIT 15 MINUTES 12/20/2019 12:00:00 AM EDT [facility] ([facility]) Needle electromyography, each extremity, with related paraspinal areas, when performed, done with nerve conduction, amplitude and latency/velocity study; complete, five or more muscles studied, innervated by three or more nerves or four or more spinal levels (list separately in addition to the code for primary procedure). 12/19/2019 12:00:00 AM CALE Clements ([facility], ) Needle electromyography, each extremity, with related paraspinal areas, when performed, done with nerve conduction, amplitude and latency/velocity study; complete, five or more muscles studied, innervated by three or more nerves or four or more spinal levels (list separately in addition to the code for primary procedure). 12/19/2019 12:00:00 AM EDT MEDEN T ([facility], ) 21112 Nerve conduction studies 13 or more studies NEW 201212/19/2019 12:00:00 AM EDT MEDENT ([facility] ) Extended Individual Psychotherapy - 45 min 11/25/2019 12:00:00 AM EDT - 11/25/2019 12:00:00 AM EDT [facility] ([facility]) Extended Individual Psychotherapy - 45 min 0 12:00:00 AM EDT [facility] ([facility]) [id number]"Psychotherapy 0 12:00:00 AM EDT - 09/20/2019 12:00:00 AM EDT [facility] ([facility]) [id number]"Psychotherapy 09/20/2019 12:00:00 AM EDT [facility] ([facility]) FAF PHOTOS OU FAF PHOTOS OU Routine 09/13/2019 4:59 PM EDT Optic nerve swelling 09/13/2019 08:59:56 PM EDT Optic nerve [facility] Optic nerve swelling OCT RETINA OCT RETINA Routine 09/13/2019 4:59 PM EDT Optic nerve swelling 09/13/2019 08:59:44 PM EDT Optic nerve [facility] Optic nerve swelling POSTERIOR SEGMENT OCT (OCULAR COHERENCE TOMOGRAPHY) - OU - BOTH EYES POSTERIOR SEGMENT OCT (OCULAR COHERENCE TOMOGRAPHY) - OU - BOTH EYES Routine 09/13/2019 4:58 PM EDT Optic nerve swelling 09/13/2019 08:58:45 PM EDT Optic nerve [facility] Optic nerve swelling MONTOYA VISUAL FIELD - OU - BOTH EYES MONTOYA VISUAL FIEL D - OU - BOTH EYES Routine 09/13/2019 4:58 PM EDT Optic nerve swelling 09/13/2019 08:58:34 PM EDT Optic nerve [facility] Optic nerve swelling SPINAL PUNCTURE LUMBAR DIAGNOSTIC RI DIAGNOSTIC LUMBAR SPINAL P UNCTURE Routine 09/07/2019 4:40 PM EDT IIH (idiopathic intracranial hypertension) 09/07/2019 08:40: 59 PM EDT IIH (idiopathic intracranial hypertension) [facility] IIH (idiopathic intracranial hypertensio n) CELL COUNT, CSF CELL COUNT, CSF Routine 09/07/2019 2:53 PM EDT 09/07/2019 06:53:00 PM EDT [facility] CSF PATHOGEN PANEL CSF PATHOGEN PANEL Routine 09/07/2019 2:53 PM E DT 09/07/2019 06:53:00 PM EDT [facility] PROTEIN TOTAL XCPT REFRACTOMETRY OTH SRC PROTEIN, CSF Routin e 09/07/2019 2:53 PM EDT 09/07/2019 06:53:00 PM EDT [facility] GLUCOSE BODY FLUID OTHER THAN BLOOD GLUCOSE, CSF Routine 09/07/2019 2:53 PM EDT 09/07/2019 06:53:00 PM EDT [facility] CT ORBIT SELLA/POST FOSSA/EAR W/O CONTRAST MATRL CT O RBIT SELLA EAR WITHOUT CONTRAST [id number] Routine 09/06/2019 7:19 PM EDT 09/06/2019 11:19:32 PM EDT [facility] MRA HEAD W/O &W/CONTRAST MATERIAL MR VENOGRAM HEAD WI TH AND WITHOUT CONTRAST [id number] Routine 09/06/2019 6:30 PM EDT 09/06/2019 10:30 :00 PM EDT [facility] MRI BRAIN BRAIN STEM W/O &W/CONTRAST MATERIAL MR BRAI N WITH AND WITHOUT CONTRAST [id number] Routine 09/06/2019 6:30 PM EDT 09/06/2019 10:30:00 PM EDT [facility] MRI ORBIT FACE & NCK W/O &W/CONTRAST MATRL MR ORBIT W ITH AND WITHOUT CONTRAST [id number] Routine 09/06/2019 6:30 PM EDT [facility] 09/06/2019 10:30:00 PM EDT Wors[facility] vision [facility] Worsening vision US EYE B SCAN US EYE B SCAN Routine 09/06/2019 3:04 PM EDT 09/06/2019 07:04:27 PM EDT [facility] THROMBOPLASTIN TIME PARTIAL PLASMA/WHOLE BLOOD PARTIA L THROMBOPLASTIN TIME (PTT) STAT 09/05/2019 9:11 PM EDT 09/06/2019 01:11 :00 AM [facility] PROTHROMBIN TIME PROTIME INR STAT 09/05/2019 9:11 PM EDT 09/06/2019 01:11:00 AM [facility] THROMBOPLASTIN TIME PARTIAL PLASMA/WHOLE BLOOD PARTIA L THROMBOPLASTIN TIME (PTT) STAT 09/05/2019 7:56 PM EDT 09/05/2019 11:56 :[facility] PROTIME INR STAT 09/05/2019 7:56 PM EDT 09/05/2019 11:56:00 PM [facility] BLOOD COUNT COMPLETE AUTO&AUTO DIFRNTL WBC COUNT CBC AND DIFFER ENTIAL STAT 09/05/2019 7:56 PM EDT 09/05/2019 11:56:00 PM [facility] BASIC METABOLIC PANEL CALCIUM TOTAL BASIC METABOLIC PANEL STAT 09/05/2019 7:56 PM EDT 09/05/2019 11:56:00 PM EDT [facility] [id number]"Psychotherapy 0 12:00:00 AM EDT - 09/02/2019 12:00:00 AM EDT [facility] ([facility]) [id number]"Psychotherapy 09/02/2019 12:00:00 AM EDT [facility] ([facility]) MHC Telemed E/M Lvl 3--Est pt 08/25/2019 12:00:00 AM EDT - 08/25/2019 12:00:00 AM EDT [facility] ([facility]) MHC Telemed E/M Lvl 3--Est pt 08/25/2019 12:00:00 AM E DT [facility] ([facility]) TEMPMHCTelemed 30" Psychotherapy 020 12:00:00 AM EDT - 08/18/2019 12:00:00 AM EDT [facility] ([facility]) TEMPMHCTelemed 30" Psychotherapy 08/18/2019 12:00:00 A M EDT [facility] ([facility]) TEMPMHCTelemed 30" Psychotherapy 020 12:00:00 AM EDT - 08/04/2019 12:00:00 AM EDT [facility] ([facility]) TEMPMHCTelemed 30" Psychotherapy 08/04/2019 12:00:00 A M EDT [facility] ([facility]) MHC Telemed E/M Lvl 3--Est pt 07/28/2019 12:00:00 AM EDT - 07/28/2019 12:00:00 AM EDT [facility] ([facility]) MHC Telemed E/M Lvl 3--Est pt 07/28/2019 12:00:00 AM E DT [facility] ([facility]) [id number]"Psychotherapy 0 12:00:00 AM EDT - 07/06/2019 12:00:00 AM EDT [facility] ([facility]) [id number]"Psychotherapy 07/06/2019 12:00:00 AM EDT [facility] ([facility]) PHYSICIAN TELEPHONE EVALUATION 5-10 MIN 07/01/2019 12: 00:00 AM EDT eCW1 ([facility]) INCISION & DRAINAGE ABSCESS SIMPLE/SINGLE 07/01/2019 1 2:00:00 AM EDT [facility]ENT ([facility]) MHC Telemed E/M Lvl 2--Est pt 06/23/2019 12:00:00 AM EDT - 06/23/2019 12:00:00 AM EDT [facility] ([facility]) MHC Telemed E/M Lvl 2--Est pt 06/23/2019 12:00:00 AM E DT [facility] ([facility]) TEMPMHCTelemed 30" Psychotherapy 020 12:00:00 AM EDT - 06/17/2019 12:00:00 AM EDT [facility] ([facility]) TEMPMHCTelemed 30" Psychotherapy 06/17/2019 12:00:00 A M EDT [facility] ([facility]) LAB RESULTS (OUTSIDE/HISTORICAL) LAB RESULTS (OUTSIDE/HISTORICA L) Routine 06/09/2019 06/09/2019 12:00:00 AM EDT [facility] Brief Individual Psychotherapy - 30 min 06/02/2019 12:00:00 AM EDT - 06/02/2019 12:00:00 AM EDT [facility] ([facility] Brief Individual Psychotherapy - 30 min 06/02/2019 12: 00:00 AM EDT [facility] ([facility]) OFFICE OUTPATIENT VISIT 10 MINUTES 05/24 12:00:00 AM EST - 05/25/2019 12:00:00 AM EST [facility] ([facility]) OFFICE OUTPATIENT VISIT 10 MINUTES 05/25/2019 12:00:00 AM EST [facility] ([facility]) NO CHARGE VISIT 05/18/2019 12:00:00 AM EST eCW1 ([facility]) ANESTHESIA INTUBATION ANESTHESIA INTUBATION Routine 05/17/2019 8 :47 AM EST 05/17/2019 01:47:13 PM EST [facility] MASTECTOMY,PARTIAL (LUMPECTOMY,TYLECTOMY,QUADRANTECTOM Y,SEGMENTECTOMY) MASTECTOMY,PARTIAL (LUMPECTOMY,TYLECTOMY,QUADRANTECTOMY,SEGMENTECTOMY) 05/17/2019 8:11 AM EST Malignant neoplasm of right breast in female, estrogen receptor positive, unspecified site of breast 05/17/2019 01:11:00 PM EST - 05/17/2019 03:29:00 PM EST Malignant neoplasm of right breast in male, estrogen receptor positive, unspecified site of breast [facility] Malignant neoplasm of right breast in male, [...] estrogen receptor positive, unspecified site of breast [facility] Malignant neoplasm of right breast in male, estrogen receptor positive, unspecified site of breast LEVEL I SURG PATHOLOGY GROSS EXAMINATION ONLY SURGICA L PATHOLOGY EXAM ([facility] ONLY) Routine 05/17/2019 12:00 AM EST 05/17/2019 05:00:00 AM EST [facility] LAB RESULTS (OUTSIDE/HISTORICAL) LAB RESULTS (OUTSIDE/HISTORICA L) Routine 05/17/2019 05/17/2019 12:00:00 AM [facility] LAB RESULTS (OUTSIDE/HISTORICAL) LAB RESULTS (OUTSIDE/HISTORICA L) Routine 05/17/2019 05/17/2019 12:00:00 AM [facility] SURGICAL PATHOLOGY CONSULT SURGICAL PATHOLOGY CONSULT Routine 05/12/2019 12:00 AM EST 05/12/2019 05:00:00 AM [facility] Extended Individual Psychotherapy - 45 min 05/06/2019 12:00:00 AM EST - 05/06/2019 12:00:00 AM EST [facility] ([facility]) Extended Individual Psychotherapy - 45 min 0 12:00:00 AM EST [facility] ([facility]) OFFICE OUTPATIENT VISIT 10 MINUTES 04/21 12:00:00 AM EST - 04/21/2019 12:00:00 AM EST [facility] ([facility]) OFFICE OUTPATIENT VISIT 10 MINUTES 04/21/2019 12:00:00 AM EST [facility] ([facility]) Extended Individual Psychotherapy - 45 min 04/20/2019 12:00:00 AM EST - 04/20/2019 12:00:00 AM EST [facility] ([facility]) Extended Individual Psychotherapy - 45 min 0 12:00:00 AM EST [facility] ([facility]) URINE-NO MICRO 04/14/2019 12:00:00 AM EST eCW1 ([facility]) Extended Individual Psychotherapy - 45 min 04/01/2019 12:00:00 AM EST - 04/01/2019 12:00:00 AM EST [facility] ([facility]) Extended Individual Psychotherapy - 45 min 0 12:00:00 AM EST [facility] ([facility]) OFFICE OUTPATIENT VISIT 10 MINUTES 03/31 12:00:00 AM EST - 03/31/2019 12:00:00 AM EST [facility] ([facility]) OFFICE OUTPATIENT VISIT 10 MINUTES 03/31/2019 12:00:00 AM EST [facility] ([facility]) Extended Individual Psychotherapy - 45 min 03/22/2019 12:00:00 AM EST - 03/22/2019 12:00:00 AM EST [facility] ([facility]) Extended Individual Psychotherapy - 45 min 9 12:00:00 AM EST [facility] ([facility]) Extended Individual Psychotherapy - 45 min 02/22/2019 12:00:00 AM EST - 02/22/2019 12:00:00 AM EST [facility] ([facility]) Extended Individual Psychotherapy - 45 min 9 12:00:00 AM EST [facility] ([facility]) RIV4 VACC RECOMBINANT DNA IM 02/14/2019 12:00:00 AM ES T eCW1 ([facility]) IMMUNIZATION ADMIN 02/14/2019 12:00:00 AM EST eCW1 ([facility]) Results ID Date Data Source [id number] 03/14/2020 08:45:00 AM EST [facility] ([facility], ) Name Value Range Interpretation Code Description Data Jreica rce(s) Supporting Document(s) Glucose, Fasting 92 mg/dL 70-100 [facility] ([facility], ) Creatinine For GFR 1.22 mg/dL 0.55-1.30 [facility] ([facility], ) Blood Urea Nitrogen 17 mg/dL 7-18 [facility] ([facility], ) Sodium Level 138 meq/L 136-145 [facility] ([facility], ) Glomerular Filtration Rate 51.7 MED ENT ([facility], ) <content>Units are mL/min/1.73 m2</content>
<content></content>
<content>Chronic Kidney Disease Staging per NKF:</content>
<content></content>
<content>Stage I & II GFR >=60 Normal to Mildly Decreased</content>
<content>Stage III GFR 30- 59 Moderately Decreased</content>
<content>Stage IV GFR 15-29 Severely Decreased</content>
<content>Stage V GFR <15 Very Little GFR Left</content>
<content>ESRD GFR <15 on LIFT MANAGER</content>
<content></content> Potassium Serum 3.3 meq/L 3.5-5.1 [facility] ([facility], ) Chloride Level 108 meq/L 98-107 [facility] ([facility]) Carbon Dioxide Level 23 meq/L 21-32 [facility] ([facility]) Anion Gap 7 meq/L 8-16 [facility] ([facility]) Ast/Sgot 13 U/L 7-37 [facility] ([facility]) Alt/SGPT 21 U/L 12-78 [facility] ([facility]) Calcium Level 9.3 mg/dL 8.5-10.1 [facility] ([facility]) Bilirubin,Total 0.8 mg/dL 0.2-1.0 [facility] ([facility]) Alkaline Phosphatase 108 U/L 45-117 [facility] ([facility]) Total Protein 7.3 GM/DL 6.4-8.2 [facility] ([facility], ) Albumin/Globulin Ratio 1.3 1.2-2.2 [facility] ([facility]) Albumin 4.1 GM/DL 3.2-5.2 [facility] ([facility]) ID Date Data Source [id number] 03/14/2020 08:45:00 AM EST [facility] ([facility]) Name Value Range Interpretation Code Description Data Jerica rce(s) Supporting Document(s) White Blood Count 5.9 10 4.0-10.0 [facility] ([facility], ) Hemoglobin 12.2 g/dL 12.0-15.5 [facility] ([facility]) Hematocrit 38.7 % 36.0-47.0 [facility] ([facility]) Red Blood Count 4.36 10 4.00-5.40 [facility] ([facility]) Mean Corpuscular Volume 88.8 fl 80.0-96.0 M EDENT ([facility]) Mean Corpuscular HGB Conc 31.5 g/dL 32.0-36.5 [facility] ([facility]) Mean Corpuscular Hemoglobin 28.0 pg 27.0-33.0 [facility] ([facility]) Red Cell Distribution Width 15.3 % 11.5-14.5 [facility] Neutrophils % 71.4 % 36.0-66.0 [facility] ([facility]) Platelet Count, Automated 288 10 150-450 [facility] ([facility]) Eos % 5.1 % 0.0-3.0 [facility] ([facility], ) [place] % 9.1 % 0.0-5.0 [facility] ([facility]) Lymph % 12.2 % 24.0-44.0 [facility] ([facility]) Nucleated Red Blood Cell % 0.0 % 0-0 MED ENT ([facility]) Immature Granulocyte % 1.4 % 0-3.0 [facility] ([facility]) Baso % 0.8 % 0.0-1.0 [facility] ([facility]) Lymph # 0.7 10 1.5-5.0 [facility] ([facility]) [place] # 0.5 10 0.0-0.8 [facility] ([facility]) Neutrophils # 4.2 10 1.5-8.5 [facility] ([facility], ) Baso # 0.1 10 0.0-0.2 [facility] ([facility]) Eos # 0.3 10 0.0-0.5 [facility] ([facility]) ID Date Data Source [id number] 02/08/2020 04:26:46 PM [facility] Name Value Range Interpretation Code Description Data Jerica rce(s) Supporting Document(s) Progress Note [facility] WRTWLe3rNhCOPfPr82/QQTrdTQEpl6YpUSsrYUh9CVuqVKXyW8CmRGY1fY2iPZE3JXmBReFzEaHkNDI6 [facility] [file] ICAgICAgICAgICAgICAgICAgICAgICAgICAgICAgIC AgICAgICAgICAgICAgICAgICAgICAgICAgICAgDQogICAgICAgICAgICAgICAgICAgICAgICAgICAgIC AgICAgICAgICAgICAgICAgICAgICAgICAgICAgICAgICAgICAgICAgICAgICAgICAgICAgICAgICAgIC AgICAgICAgICAgDQogICAgICAgICAgICAgICAgICAg ICAgICAgICAgICAgICAgICAgICAgICAgICAgICAgICAgICAgICAgICAgICAgICAgICAgICAgICAgICAg ICAgICAgICAgICAgICAgICAgICAgDQogICAgICAgICAgICAgICAgICAgICAgICAgICAgICAgICAgICAg ICAgICAgICAgICAgICAgICAgICAgICAgICAgICAgIC AgICAgICAgICAgICAgICAgICAgICAgICAgICAgICAgDQogICAgICAgICAgICAgICAgICAgICAgICAgIC AgICAgICAgICAgICAgICAgICAgICAgICAgICAgICAgICAgICAgICAgICAgICAgICAgICAgICAgICAgIC AgICAgICAgICAgICAgDQogICAgICAgICAgICAgICAg ICAgICAgICAgICAgICAgICAgICAgICAgICAgICAgICAgICAgICAgICAgICAgICAgICAgICAgICAgICAg ICAgICAgICAgICAgICAgICAgICAgICAgDQogICAgICAgICAgICAgICAgICAgICAgICAgICAgICAgICAg ICAgICAgICAgICAgICAgICAgICAgICAgICAgICAgIC AgICAgICAgICAgICAgICAgICAgICAgICAgICAgICAgICAgDQogICAgICAgICAgICAgICAgICAgICAgIC AgICAgICAgICAgICAgICAgICAgICAgICAgICAgICAgICAgICAgICAgICAgICAgICAgICAgICAgICAgIC AgICAgICAgICAgICAgICAgDQogICAgICAgICAgICAg ICAgICAgICAgICAgICAgICAgICAgICAgICAgICAgICAgICAgICAgICAgICAgICAgICAgICAgICAgICAg ICAgICAgICAgICAgICAgICAgICAgICAgICAgDQogICAgICAgICAgICAgICAgICAgICAgICAgICAgICAg ICAgICAgICAgICAgICAgICAgICAgICAgICAgICAgIC BbKPUlEIKaHRTsMVFmRZFmAOCjHALaMZArAMBaKXHiOQQnVXPgXEc7J9mjGNTmPVWzRJ7tOUt3Cr5+DQ aOVtWvAHT8ayGngI1QEY1up7TaJVgzYILov4VaDAw2WX4CISTsTVtjMJ9GLKnzav5TDMTuIJBcbPPSv6 odSbWeTAM4NJCcHlpvKS4DCIZwH7huouGmJUCxGMBT XFbbXVTYKT6PEyByR5ZafT09SAIOFm5+KKmbguPpQqaIHiTzFXHce4DnPAu8AC2SXJXfSirne4IlFuSh DRNFJZglFM7QPES9UDAtHRMqTm7EBGOmG055daImSV0BHe1HLtPbLU9lfw1QPkLgLYIvEzuPFcd6RFmt DT9StLPoJQiUnk6etcYwjfWEn4BxpmTtyMXMCXGtVN FXHXVzZ6ydGU6UBOU4XUwnGI0iQHZcRHTrLrA3SZQSAQ2MCOSwUJYisYZeGIYzIXOYGV1RELgaRAJ2OM TvgpIvuEErZYmqAE6OTXPjyzPbWpPuBXPXFXp+Jt2DHI0by1ChNViyEjEjWH7wnm4QNBlRVkYwY2O0gN JgB2X8KVndQs0XZKPxGBQcFTkhMJYQPBktMT4NSF2y qpT1PJ2BhSAuCHIkYMArhVBdWYy5C84nwQMiYAtmST8KRFQ+Magdiel+Yk0EIOVwBXThCLKfYgPkPSQAMiJp H0MrB6OTm4XcM1NbRA60yJflrlNhGRdiDJ3GTG4lLBCnSFFQXY3EeHZlgH6stoJjVOGcERYIEoSaD81i tWUqUGCaDHNpPPRlQl2BFREfD1BhzgJmrTnjpnKxIO LeQFURZD4QNOvjmnUdeYAjgTmmPH10fRqkRM8TRo3RIcAkHO5fqy7LzNCwEy8PVQAxOI4TTSMkSBHsKS HhUTI5OFRrBpYtTZsjPGFqQXQkBKS8GZKrQNJqPL0NHxJrSEXlQlM9PyNrBKAsMUGrtg0TRWZpPQJcLs C2MBCrTXGwRQGgHVfoIRLyHBVfIHY4JSGiORAxUD6K UiEkGYQxENG8OyNaVIOsWQPszm9NAPRnTBReLEYtViZqTYDpEYGuWQddXEJzUTJ5DfY3VVZiMHOnHR4Z QyMlDRLrCRC8TlUbPMDySCDwux9JNFEaQQCeGnxrNuYvAAOcSYMpNOuxLXBtUSH5CTO4UFLrIIIdSA0L DkIhPOUoJZssCViaZLOqYQPday0QQMIuNWPrXFK7FA VxGQIyCVPnMCslZEQmOVD4OCMcGJJiTFNmSG7HEaDzPXIrWYs7EArmSZFiJYFiid9HJYZvVVYwXWYjSr UjNJIzMIWuHTfeBVUzVUEvXcT8SHXuHJDxWJ3PArDzZUNnOxI3LxffGPYxKRKsou4NYRUsAYYpGTu5OY XwDIEbXGUrLQqsRZRkLNVdKKU5VBBqMPUoFV3YYjMj FHRsDeFtOBWgVZSkREHkes9TCWWnKMMtSuc9ZRZrDAEvVHRuHOvsYAIqVOTkCKVkKREoCROiFA6CVzHm QMXzAuQ1YxIsEIUzFSAvxa7QfYGduUkmlc5BSYzRMw1KvSuvYTX0JWwyJd5fmEAzXyHiIGHTGo2WztWa FGRpCRXHZYrjKJOtXFM3CrryKxU5OwVsZPenJNnsIz NnRiwdIvGgFNR0XIJzUwX4NGDoDDYfBSs4XNB0OXT1UqCqNpTaHNMlXJV0LwPoNWN+SB5lEGe+Pg0Kc3 VzvlM8veXxQDnvWtMuWR9STNADU5HYFp== ID Date Data Source [id number] 01/30/2020 02:41:46 PM [facility] Name Value Range Interpretation Code Description Data Jerica rce(s) Supporting Document(s) Progress Note [facility] NNEVGv5tCrKQTfVx20/PFJkmHUOsy5PpSPhkNTh5HCpeRZOtG2JkTVZ7cK8bRHE4FZzDNlCvBbItESN9 lbm [file] CoPIYcWrpeVEKiW6NoPIxwOkygBoS+EF6gXIr+Mm5Wp4YiaoN0uyYtARnwOZszQU2QQZZPO5DJWg== ID Date Data Source [id number] 12/26/2019 02:24:08 PM EDT [facility] Name Value Range Interpretation Code Description Data Jerica rce(s) Supporting Document(s) Progress Note [facility] SGMXNd3kDxVAYvDg28/RMQvlATDnz5XzEAlvHOv4GAvxWLStE0KxEGJ3nW7fWIA7FYsUIxNhJkTdVQN9 lbm [file] IUQln+/TpxLpxvZ7/6BDED9xQ+yMe7T2kNmAmqv3SFFy9yq/camera assembler+cIRT3N0Pg2+MZttUbjetnmETZtn7+ [file] AgICAgICAgICAgICAgICAgICAgICAgICAgICAgICAgICAgICAgICAgICAgICAgICAgICAgICAgICAgIC AgICAgICANCiAgICAgICAgICAgICAgICAgICAgICAg ICAgICAgICAgICAgICAgICAgICAgICAgICAgICAgICAgICAgICAgICAgICAgICAgICAgICAgICAgICAg ICAgICAgICAgICAgICAgICANCiAgICAgICAgICAgICAgICAgICAgICAgICAgICAgICAgICAgICAgICAg ICAgICAgICAgICAgICAgICAgICAgICAgICAgICAgIC AgICAgICAgICAgICAgICAgICAgICAgICAgICANCiAgICAgICAgICAgICAgICAgICAgICAgICAgICAgIC AgICAgICAgICAgICAgICAgICAgICAgICAgICAgICAgICAgICAgICAgICAgICAgICAgICAgICAgICAgIC AgICAgICAgICANCiAgICAgICAgICAgICAgICAgICAg ICAgICAgICAgICAgICAgICAgICAgICAgICAgICAgICAgICAgICAgICAgICAgICAgICAgICAgICAgICAg ICAgICAgICAgICAgICAgICAgICANCiAgICAgICAgICAgICAgICAgICAgICAgICAgICAgICAgICAgICAg ICAgICAgICAgICAgICAgICAgICAgICAgICAgICAgIC AgICAgICAgICAgICAgICAgICAgICAgICAgICAgICANCiAgICAgICAgICAgICAgICAgICAgICAgICAgIC AgICAgICAgICAgICAgICAgICAgICAgICAgICAgICAgICAgICAgICAgICAgICAgICAgICAgICAgICAgIC AgICAgICAgICAgICANCiAgICAgICAgICAgICAgICAg ICAgICAgICAgICAgICAgICAgICAgICAgICAgICAgICAgICAgICAgICAgICAgICAgICAgICAgICAgICAg ICAgICAgICAgICAgICAgICAgICAgICANCiAgICAgICAgICAgICAgICAgICAgICAgICAgICAgICAgICAg ICAgICAgICAgICAgICAgICAgICAgICAgICAgICAgIC AgICAgICAgICAgICAgICAgICAgICAgICAgICAgICAgICANCiAgICAgICAgICAgICAgICAgICAgICAgIC AgICAgICAgICAgICAgICAgICAgICAgICAgICAgICAgICAgICAgICAgICAgICAgICAgICAgICAgICAgIC AgICAgICAgICAgICAgICANCjw/qIIqW7fcyWNivrO1 O0slTb7GSy1VXD0bs7HuZCTlFJwavbLoQauCZoRhEJNvTwqJZgx0WEyxWV1OzFHrN6UvQ7IvZIxuVI7L PYGzROPlzBJpLJTtIHMbUlL8BTHqRWfwIM8UgZXmZPlkMLOzLRXpHxEdOHTbAM5AUALaF710rxHgHr6C Qz8WRfToZK5yct8CWnUxKHDbYzuISaa9YXptJX5KcW OpnVIaCqTzOBCGGiCrR7qfm9KlDeFhNBGPBGitUD2Qx3FloVAjKKu+As6ZAJ4ql0XvZQhgWxJsDQ9tem 9IAEaWBqAmI5QaeStaQNHzp7ycUBEqKA9qzDFkWZA9WSRuvvEhT5fxsDemnvwtTKMiHNGkECNqGH6oJF YlDDVjPfUbCDIXGW2HYOVsGOLyxBDqSBVnZPTVAB0K TRwjFEL4JAYnulTfsTTeFLhiBP4FNQAtkzDtNjTuPIYQQTd+Cc3DCS4wi8DgOElbCaWaTW9oqj5VGLlT LpMuV6T8kOXeR9T7KYprNg2TSKZjIRFiZStkZBFBLLriUE8LPU0ouwJ5EC6HhLUlUKJiBYIzzVBfPPc4 G14vqHXsINtlGE5EHNT+Magdiel+No9GNOCyQUWfNBNvEf WlZXDXBuUwN8HmT3QXw8CbS2FdMG34sYkclyRnEJqoPU4MLX3nBZKwSIZVVT2NhZOpnJ4sktHaJVLxXO ZFGtCeV46vxGRuDHFqSPYwGFIcEr0NNGHoV1QjcyLbhNkxvmXfXJJsONXIQA1ETDdolqRacJOerIjvGS 01pFgoVC3FHu2CQzEyDB8wcj3LtZJeKm1MIDIyZD4G JDSfAZMsMHJuCJO2PAQkPdGwUXctHYJqZXDfZOC6WJBqDNWyMN4JDsEiISNwKiAvGzCcACGzYBChgt3H LMPyRDOsSup6JhJhHAVtJNJcXEpvPMQbZAZlFGI3TDYeUQGgOI7RHuKoEKZvGXYuHXSgNTJzUPXxgd1A YWVhLFBwFIA4XPKjTGSjYQKpFZrnMBKqSTS5RSG7TL WhUMRiME6MBsUzBIOlMBKaZpBeFYChAYOrcw8JXXFkJWIiByOaZMVgQDPvEGUrFBanYMDeKOI2BdI8MT AnXTUaUR4MWfQeMNDdIQdkSUotOHDnKPZvzz8JLJLyIILdAYN2IfBxGAGgDLWnWVpjFVEbLBJ9OLU3UM YlJLMfHC2MNvBoGNFlXEg2PYZuWEMzCALlgq9CRMWe SFLfKBCvUICnSGUbRFGdZCuaKGOgDGZpXJI2LSEtJEHyBN3PYyHxFVRmWmR3JnRbMMRjMJStim7BULRg PSIfHBb5XoQrVCQmKZUsUHbbGDYyMTBiEDSpCWYuLZOaVX4XKxDlRSMqLgW0AVKhOHQiVKFwfh4DJNWr AZHoGfl2DsLyNVQgMAOnNSnlNAJlUITlZMZ2EHEvKT GuAL2UVaXxNUQgRyJtMpEyQXVfFNFkux3VpLAewIeedt4VCHjVVy2ToFxxLOX4OWtiSv3xrMPxUqElKU WCAd7OukJoPKUvLRHMLGhjGUVkOWE8ZqJ9VDNwBTt8XtHoWgT7QjEmKju2KAMdRuM6BOQ7SiX3JSaqKN h1LUX4NGMiGEPsPZIlLsCfNPcsLOFoMdC9ILp+IF0g DQo+Fg3Us5UmdsU7bsGnXHfvLhYwJI7DADYXU5CXXr== ID Date Data Source [id number] 11/23/2019 01:31:05 PM EDT [facility] Name Value Range Interpretation Code Description Data Jerica rce(s) Supporting Document(s) Progress Note [facility] XGABOr3bKvOVPsJo93/DUYsyICKas6MgFLjtRSv7EUoaLPAaA5UhTOY7aS5cLSD2UOdPNsXfMeFpZQQx lbm [file] G3/SVEEfNml3o0ni9n4oPRFzrQIfxPv/jBJszBr/Maria Antonia [file] ubWFNzUS7JLHYMW5DGPg== ID Date Data Source [id number] 11/09/2019 01:51:16 PM EDT [facility] Name Value Range Interpretation Code Description Data Jerica rce(s) Supporting Document(s) Progress Note [facility] DKIXQq4eKoGIRxEs17/NVNmfCDYqv9NfWUegTSl1MRjuCWJcT8PzPHU1qB1mNJN8AJzTDjWfZnCqMVH7 lbm [file] AgICAgICAgICAgICAgICAgICAgICAgICAgICAgICAgICAgICAgICAgICAgICAgICAgICAgICAgICAgIC AgICAgICAgICAgICAgICAgICAgICAgICAgICAgICAg GS4LCYUiOPBcJAQdFZUoYRJdCHEdPLKpIOQhABBgICOlLDVbQGMvNOZbZPRxWDEmMGWvLACvBZVsHACq WGUlVAQuTGCtSYAzCDCuYEZsHGAjZYGiCAOiFMTqGBOpYTUbUXEcWOYrFI8AISCdUOHwGWXiNLQfOGVx ICAgICAgICAgICAgICAgICAgICAgICAgICAgICAgIC YsXYDvEBAeRSElCNGeVSKpFOPkVVPgGWEyCCQuSAUwYLFoVKZgUHQrXCKqCVNnRIMqVZElDP8UDBWjEF AgICAgICAgICAgICAgICAgICAgICAgICAgICAgICAgICAgICAgICAgICAgICAgICAgICAgICAgICAgIC AgICAgICAgICAgICAgICAgICAgICAgICAgICAgICAg KCEbJG0RZFSeNHEyKNDvBRCnEHNbXVDrTYCrRQNgIUUmLJSdCPUhYZDnLXYeJJFaBCSrISHtCWLsKBGm YCIhKYVgZIDsMSVjUXStEHQlFHXwYFZlDVTzLDHhINUeVSFmEEYoUABxOZAvXD9NSKYlQXHuOALqLXHo ICAgICAgICAgICAgICAgICAgICAgICAgICAgICAgIC NsMVRbSIBvNDLuAILuOYPhTJRpZTZtIGHrMQGjVPZjAIGmCIGiATVyHTVrHYSqFMAwHOCnBAIkKA3UTU AgICAgICAgICAgICAgICAgICAgICAgICAgICAgICAgICAgICAgICAgICAgICAgICAgICAgICAgICAgIC AgICAgICAgICAgICAgICAgICAgICAgICAgICAgICAg YNZbCXBbFZ5LTGTsPPVpAEUhMSOkFFHhEFWgIXWbFXAnIKMzODGeMNNxDTDdJDLqWDChRPKgTPKeCBYp KPJmJPSvCRAmZLHtVQLpWRXgEGLoQTIvUHOsDEKhCIPuHESfJDVpVNLzDQYvLZEoUG9YVYNxNSZfGPGe ICAgICAgICAgICAgICAgICAgICAgICAgICAgICAgIC AgICAgICAgICAgICAgICAgICAgICAgICAgICAgICAgICAgICAgICAgICAgICAgICAgICAgICAgICAgIA 0KICAgICAgICAgICAgICAgICAgICAgICAgICAgICAgICAgICAgICAgICAgICAgICAgICAgICAgICAgIC AgICAgICAgICAgICAgICAgICAgICAgICAgICAgICAg KVSkOUHeCCEsCV9BGB13iPKit2O8TZGuRY3qxpr/Ni3DHZxztnCthROtXC3XEeXwRD9mpt2SZfXjYN8b yd5YBWjZAzGaF0S1lXKjADLnTNPHYhVpE81wZWlnKm29BNynVVYnNoMpZYc8Sj3PMjTfI2soFOEiJlL0 EZOyIjU2XAIjMsPdEIPvFPExAANpKGUTVU2RFsWjI7 DhjO88ASYSMw8+WUkjyrZvFhaPTuB0JQFut6QaIAa7BO0SZAGdDpqwv3FwPcInBUWDHVnpJB1IRJV6IG VbRWUmDx1HCSHyY003tvQhCY0AIq6WPuFfJA3ujk3JRyGaMEPvJrsAObb0UYgnHO8DhCFlGNuYcc7cut YvrpYWw3MusgNiiNZQzh6uYDTqYGTjjd1bZK6TZIB7 ZReeNVboCfIvQKBpUHuwYLJMMAaGRxFmZ9Mjq5SoSiS7WPYrDeVzDDbcERGyQfD6WD13uNmxWW7AFKGs MFIrIZ13ILG8JFCoTc8IIi3CEiQdDX4qvc2NKgGyWL0wad5IEMpWIlKkW3P8lQMeO1Hahj07VL6LjHA3 cLRbWJ8ZsJ7aGJ0At1IyCJDmZxSuYXTpZBIrCIWvOH HgVqXjTC6LATRzWtMcmQYvNWNdKSU1UKIdMuV2IZNeQC5CJCUfJGY0CY5NCD9DWserL1YIHYuarHukJu VQSUM/BNGLGYBLAXjuVRLqO19VE6PJQVuHIrmcOYiGBzjkBg2nBRj+As7VDR3vf1HbLWjySINxEN3nzt 8LNMnDDkAsU4D5gTMxR2P2ZTsjFn3PQRLrNCPeGdmx SFXOANtcKN6QNL6qlcJ7SP2DtKToOVCtQXBzcBXxWWf4U07yaDTsPLseEL0RVUZ+Magdiel+Qu7HNWZbAOLt TCOuTqJwUOZYLhFrX7ZsB3ZFh0OyP3SoRP97rOxsygHsAVyjIX3BRI3aRGEoEPQRBZ0ZeFNjaZ5xzfOp BAHlNVWNKxBjJ10ckRIlJDIhCUD9PUYrEy3VSMCvF6 HabqOslDfyuyYjWSBhQDGTDU6EGXwuimPklMKkjEpxMQ18wMitYP9AKx9LYtWpZK6fqb3BkLVvAw0BGM PuGn7TVSJjSRIxCSVaABF7JXQbDiEnNAmtJGYoQHFgDMK9XOGjFLLzOJ0MZcCjLYFwHvd5KMdpDQPfSK Grmj1OOTRiNEFyQPT8KhXmPAXfYKOpJEroEXVbEUGh SYQ5QZPcXIZfMR8RIwCpNDLgIQD4FxgyQJLsNFSvsp7UPOYsKWYpFCZ6BSCtMNLiZMEkJWnuWBCwJLKi NlW4BDWjEOQiIU3ADsPsNQOyETQ7SIYhBZUyTATwij4WANQaBQSyBuB4BQScYXNvYNZlHHefLHYvCSPh AYs9DMWcCCZvNA3GZfGoEQKyLCDyEKLiALQrATGuob 6PLCUuGGEySCwdNRAqXWYeEXGcTKxpHXOcTGGpQZQ1KZRvQEWwBL3SKjBrHQXkYME6XNUaVYNnAEMiiy 3JPYYiASMvBxX7QsDnXMCdKTYnRWxmMJIxQAWrEuK7GFKqXIXzHE9XDeUaNYBcMLUcMeJrVGQlXWZfrq 6XYBQwDKXdAlCcZnNaSNGgXLUgJWuaGXNgRKOzFnU4 YACzPNKmFB7YOvOlIPFdNaNnKOXtOVTwPSZboe8HHZYsRIAqALH3GFSxKYPbLIAeSTxgQGIoGBX0Dws2 CSAeASLdMJ3GJhNmVNByLpW0EnlfJLGhRAJnni7GFMOqMIVkTyB0OCFeXHAqRGCrBGhrBWXdLWY5RVV5 BSGyYPEeWG1WLnYlDIQfGdvpXUlyDRTbABZtae5ZWL FgSVIbIyL6TKClFTZlAOZsWLcgWRBmLQV7KICkDOFhRMNlKZ3BKwKvVQJaOfcpNyNtYPWnAROqbu1PUN WkRBTtSZPqFZVyAFWkQJRbNPdmFSLuUHZ3KrM2BDNmKAPgJN4KZjBkPDhsTPALYrz5BLqdQ2u0ULNhHb 4BV3Mhs0DeYvViEBRDKOjiAZ4ivoXtMSExGc7YW1kB Lpy9LHSzR7E7OJo8HIAtFNnqCYUfQ5FmIpXbSOZwMEPnJx1oJNA8VwD3EHF2BCbaIGM8QPLqYERfW4Em HuCjAVZkWEI8AlLiXJ2HIj0RMuI7IRA7qOTaKm2REet3ONwHRdZvKP1UUAg= ID Date Data Source [id number] 10/28/2019 09:45:13 AM EDT [facility] Name Value Range Interpretation Code Description Data Jerica rce(s) Supporting Document(s) Progress Note [facility] OTCKAi2uKzKZYcGk32/ZUDjqWTOlr1HvQHhgCTq8JYnxIHBqP4FxOJX1lP3fKOC2HOqQYnSyAiOkXEJ2 lbm [file] sBfX4hVoC+[id number]+Velásquez [file] LY5DDr4OStU8VTB3fFDuFc8VBeIzGIFAXwBnRU0AEGw= ID Date Data Source [id number] 10/28/2019 09:43:33 AM EDT [facility] Name Value Range Interpretation Code Description Data Jerica rce(s) Supporting Document(s) Progress Note [facility] ONIJJp6jHoJEYeEm18/BFJvuYDIso9BuVHnnNHh3WXgoKPYgI3LmUXG9gW7lCPM6TEaBSrPgHkYpCJS3 lbm [file] fWZea2TCV+vending machine assembler+03LO3Mcxh3LxzHAm6au3RufRhm51i EIPs6vMX0hf4KetNT8j+lCcHCY7GxaQjVyGtTOor2jJLaXm8mFapMqxSKfTg7jHhAvUdpGQOq80PVmsa qt6n4qKlP1DDUq92iQsfsg1XkqIu2QYRKiY6NCEV+QLukepP2pxeM06/Winifred/W0BuaAcGg9JI8nq98cfAs [file] y8wv3QtSrLKDVYh/YclXOX+EvZHAwcVWLoA/qx9BF9SiPvzF0/EVJ+SENIOR CONSULTANT/xH6+QtSUweUEd/VsMLAoiop /FZfERjMT50xtesTJOUEM1wI6SNfItUpYti8VBC79zWSzNc5u3+GE9f7tmgmMAwZR0dHS1F15OMjzuqi nb30eLNQkwLzNkFj/GiZs+gpP9l8HRvWRD5aYWJ0RV QsLjEvl40V+dx2T3qOrJ9/dgvA1XUGVOKmNQjtLpIKfwztmdEyxMkqxlWd2BDyRfxXUDg+u9hxpLxh3S aYK7ttmz13WukQ0uuXJC6QTgJeg1YuMKLwHw1siVSh/+7FCgR5oIs5532ckwRF8wCZjriIA5JZlP0myZ 7tVZODixrHtciLHO6nbyx4H9yQYVifmrtzEEMx7wmW bArCSOyuHTnAltxOuEswKGr/fjcHTgqH/uA7mMA8UwgQPp6lhkDDWxom2bMrR09buGy/PLdaxjHxxVk3 L7zkmbROqNHyKyQXePafP7PpudzCccZiZSV8VosjEBPRuidVlMf/5eYr9nRMiP3o7sJokRFplXi8W90p 4PT+ye7M9h3R76+Q+RswyGt61Kri60nv3am9G+RIKj gfoziVLe9Wjl8jogYZa/ekmNEY8Z7+X5LvBYJfB7UzQHWbS50veGo07EPefiJKQX4cwjdFkoqiAL0zkz 0wjWdz+m0ObqhFk98t1db/SsfZcsvkP0ctFTB8OQdgZQYZB1m/hi9k9OThRbk5BS/6Zv68qY7OIPLBPd bcC/TIuVb2Zacg/tQotfb53c3quNeZ0t/MrlZmdRMr 5c24YK8UTssjNSOH1Kg1UT0bkiXA1zflhpbqiMaP6TDOqTXpqHCn9DkO54VdhU9F8Tp2aqCg1ZxaYUGL CXCQK/C4taaYnGqVLzU3DyPh58JUx41UHMqtaPU7VKQWI9XQmfY5y6OQn766Sj2uQsALkr8iBBv+Sophia+ [file] w5qzGT2284/XN6eID1Iumg2AV3pkgQcYEQYuaMY/hospital recruiter [file] 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 moving estimator+Tm6o0ZeI4M+oDC1IKMh/bYei6tB9rlUE4Wlv4DUXmefal363EYc4OkpsNtUEqBT6/qmdf7OipzNJ [file] Qlfc724gQgShPGQO/88QdS/etyx7L8G6+Px4MWTKdLtSTsXPPoQPYrfkHhCo/VELÁSQUEZ+GIFEu2qqwjRQHfQE [file] [facility]YP[facility] HospitalEY[facility] CenterEYP[facility] HospitalEYPal[facility] Healthcare [file] 8j+DIRECTOR POWER/Kb0piOrmQ2N84WZK6D5US7Po6GeJWtFzm8y wF7xh9SiiK9tuqU9NxLit9VlGJy1upOwEXgkwuGU5ZViXN85BLdZ/xEu0pmkfzHo4gRbfjM15ihtke1M Aqni4NYIAkf70h6+rs5q0kH7N2SQkKEb50cZ+WDtbm6kEe1GWxCz+cR3ZhcW+B7AGiL3iPmp8k4z3tMk ByPqtFzHAn8Zz1eDv2K2bhnvHv2T7u8+f/EBSgo04n benKPZ4dDAyJb9QietbVOScHIKokhybcBhGWQChWHcViMGDN+bhxOm21/f3gz6s1MZ/ADUBofJ1fa5gp tx7cw2FdO3XLw7HpDDU1Esw78MIyZQ0F65B01PyrK+1GOy54/E520nSRb3ke1NXUwLJjoGoiVnwRbw+3 cRfzjHTv13pDaU1oweklwy4vuleeaqUJSImbF3QkV1 JxsW/YhHe6C90nwWFQv360nBklsUhq5frBbp6cwcpdJNh+rGSTmOEh/x3onMG6eL+GXP5GP/8DhqJ4jr T9qk8lA87rRzm2cRbYZrhhQEEOeM6eA3XQuwTQFD3wAj3V6AYLkuV1GSGk/b+Pk7pRU/Kh/QM5Jsc2kN 72D6rrewGty545gRfTIx/c3ANEdxEd70c7e81IxvzM c2lgJVoNH527aph8hovfLQ009gCrf3oA8qlyn4fG3qQXVGWQXNFWmaKKVLUUWEEIpbXEDHGKAKCLqaEU CAAQMGDBgwYMCAAQMGDBgwYMCAAQMGDBgwYMCAAQMGDBgwYMCAAQMG/Gii1FNP01183R7p3U/K9sph5c [file] pUzKwKPsxKJhdvVj+1Iri+VELÁSQUEZ+7N4zrpFocFB+sOKu/5XxMOtdfi2mFYBvoxi+LPZqt0mXT/fByGgSz4R [file] [place]+tmcaj0nginlcM+kM524xMbfqCn5wu3CTG+V8fz uctkgyp7bNINWdhbkBbp0gm7IUW1qGtJjVCrF1ZUmD/MbltcOBT998uLNo48/JoFhOpCB9E9n+DboUBk vPTwMQeH4AJVEajaXMFoMgGi7QuY+PsHK1Cb7Ix59+9isBLr9z9sqWzcA8ESZrGfSiTvRPkfvLCbo8FE fr/1yNyWdoc9BhAqKjP15aAa4Yyu1ySoGVxH4k4cg2 k4zugdkHDO/jHirmQ1I0oM+JnB/kUTq5lB6J6HSx9QFyJzjqsbYAxv6B/W70GZwF1bQC/bcff+y652jr d457EfkvDiqGvrMORzPq5Qr4SBTfR59Fpwzscrv/ulLnbQ294NK6vJ+4NkwJ1k8VjBP5usQZ6eY82a59 fpatN5XhmWLR74aYPH7mBVow1+qjtxiDXb5mZ7eC0g JnB+Ah2C4aKV6nmrDa4dLW9QM/T0urvU0hG4o2GmTSqkkDfSJXloBgm2k/q1W126p1zqkZHM6ye0Hfc8 EYgx08YAMvCE4vMZqtB1wkJYF4icr1HI0+9hCt/C/6IYlDJ6m3UKkwFs0fZkL7RYCtdHJYOESloTQ2Bk jHimh+jIPd0r/HsI12TU7h9kSxO3k5f6hvCfAPpS+D Jz++oRx+KtjVTp8kbWdrQaGn9EA6WCjD2MdvjCWtuGkTON0Xibz27QNGR7OjMfrUcHoQJHtki5KbR+z+ aZSszaJrxB/Xbf8CL65D3zp+CyLi443GzTaT9n+3g2/syMxdeBm4GYWQPAIopLCDxibKqZ6zOOYDMEI+ P+GxqfsBAwYMGDBgwIABAwYMGDBgwIABAwYMGDBgwI ABAwYMGDBgwIABAwYMGDBgwIABAwYMGDBgwIABAwYMGDBgwIABAwYMGDBgwIABAwYMGDBgwIABAwYMGD BgwIABAwYMGDBgwIABAwYMGDBgwIABAwYMGDBgwIABAwYMGDBgwIABAwYMGDBgwIABAwYMGDBgwIABAw YMGDBgwB+ElcZuhaSDtMLLCpmX4IQwF4ZrS8qQdBVI SxqQKFDoc7A6XpYONOUcjJ8Vm6RMYXBplXPS/pNFKv9mzBZCGgn482Ld/GlaBgwYMGDAgAE/HgIqz4OR GDBgwIABAwYMGDBgwIABAwYMGDBgwIABAwYMGDBgwIABAwYMGDBgwIABAwYMGDBgwIABAwYMGDBgwIC/ Vm8ZwXSlru3MTP0hk0QsWGMwAFhkmlFxGexTHyV1RD Pbm1PlJGe0PU3RXCFtIRbaKB5IQ9VjCEF8R2Q9LjR4lZZpAL4fW3DwIzMvEY0caWx7E0VqpEWJDTSKm3 8mr66cubPbDW3Jf8uzspQiPMEwM0RmrxwkIGjfWSebW7cwnNjvGPCwFC1BNLmktXNsLiGdZ2kyvap5xL AyNDIvRmlsdGVyIFsvRmxhdGVEZWNvZGVdDQo+Pg0K n1QtSHDtYSmJrz1MYVJGUAOVcK7nCc1YsEGBTZTZEHZGNOADWDOCEYVKFYYXAOHCMKKXLMEDMYDJGZWH AAAAAAAAAAAAAAAAAAAAAAAAAAAAAAAAAAAAAAAAAAAAAAAAAAAAAAAAAAAAAAAAAAAAAAAAAAAAAAAA AAAAAAAAAAAAAAAAAAAAAAAAAAAAAAAAAAAAAAAAAA AAAAAAAAAAAAAAAAAAAAAAAAAAAAAAAAAAAAAAAAAAAAAAAAAAAAAAAAAAAAAAAAAAAAAAAAAAAAAAAA SDKQTDGICSRTHXAQFKAZYIVFFXNWFUVCIQTULUYLTDJI5GJX7oSF2OBG9xq2XeDJCnNAeuicPvYfyOWp Z0ASScs4VmIGw9GL3NUDRzUIeaDS9ZT9FdEWO2Z2A8 YlM8nFAqCS5bZ0GuHxWbSG2qbDn3G3UnqZAUFGTQv13qs65abzDlSG8Nm6dsytCmFLStD1GwuntoCSZA Lv5HtRT7zZEfRLY3T1fveMyqlWKkPuXtEUEtG9CaDEH2Xmy6P9SnxVHcpcWzQ3YaRVEwMLPwz6VbRG5K XJWxA05nf8kyEjCvUNMBRL4XAe9PJjK9fnFhaP2LWS McHLbq5kaXPHYGGHZPUULJuWRpsEjfDhvEGcNBRCXOTLEQvYD54M6ZzpAEc/Z7d/g6imq4VVAghV+kaq a7J89/Goqi+HmZ/He9Z6X0w6qcZ9whqGv+do3+3WPTMTQIQKISOQsOgPM78IkvcrG3ldW621IuiD1u6A ee+6zsE1dkuZ83VkDXFaONBCMHER0ZzQ4zGpiipL/+ W8kbvsmPD7X+O2rU4TFWn0IcciwEyGBVl/C/0QL+2ptRE2L9BhGd3Da8DL3diiv3q+hdzCHLnjlkZRvz vqLARxn+l/MPayge13O/jpczxatqvqmyXc+xVDZTCCGQMJDYpoHhuVOn3MLddSIhlpCaAtbliw5G1ROp qB21tg3hw8FJ38gxedk8ms01tw/+qhjvJcPrUhqDf5 +zzRy3NIx64wLnr/cUs1rQuD5jmBd5xw7D7N1E7q9LLSGPiAHy0EzBVVC/BG1W7RI44JMt6L+FjA3sr3 dayzM4GRIG8Llc/+[place]+nfJ3t/v02hekYWNj//oFqBa5u7M3vopTNBwH5mseoq9KvDhWZrhsA1LPFIIq [file] JZGjEuXIBZcaDuk5x2gQ1137B/+tAbm/UGxANZ [file] AgICAgICAgICAgICAgICAgICAgICAgICAgICAgICAg ICAgICAgICAgICAgICAgICAgICAgICAgICAgICANCiAgICAgICAgICAgICAgICAgICAgICAgICAgICAg ICAgICAgICAgICAgICAgICAgICAgICAgICAgICAgICAgICAgICAgICAgICAgICAgICAgICAgICAgICAg ICAgICAgICAgICANCiAgICAgICAgICAgICAgICAgIC AgICAgICAgICAgICAgICAgICAgICAgICAgICAgICAgICAgICAgICAgICAgICAgICAgICAgICAgICAgIC AgICAgICAgICAgICAgICAgICAgICANCiAgICAgICAgICAgICAgICAgICAgICAgICAgICAgICAgICAgIC AgICAgICAgICAgICAgICAgICAgICAgICAgICAgICAg ICAgICAgICAgICAgICAgICAgICAgICAgICAgICAgICANCiAgICAgICAgICAgICAgICAgICAgICAgICAg ICAgICAgICAgICAgICAgICAgICAgICAgICAgICAgICAgICAgICAgICAgICAgICAgICAgICAgICAgICAg ICAgICAgICAgICAgICANCiAgICAgICAgICAgICAgIC AgICAgICAgICAgICAgICAgICAgICAgICAgICAgICAgICAgICAgICAgICAgICAgICAgICAgICAgICAgIC AgICAgICAgICAgICAgICAgICAgICAgICANCiAgICAgICAgICAgICAgICAgICAgICAgICAgICAgICAgIC AgICAgICAgICAgICAgICAgICAgICAgICAgICAgICAg ICAgICAgICAgICAgICAgICAgICAgICAgICAgICAgICAgICANCiAgICAgICAgICAgICAgICAgICAgICAg ICAgICAgICAgICAgICAgICAgICAgICAgICAgICAgICAgICAgICAgICAgICAgICAgICAgICAgICAgICAg ICAgICAgICAgICAgICAgICANCiAgICAgICAgICAgIC AgICAgICAgICAgICAgICAgICAgICAgICAgICAgICAgICAgICAgICAgICAgICAgICAgICAgICAgICAgIC AgICAgICAgICAgICAgICAgICAgICAgICAgICANCiAgICAgICAgICAgICAgICAgICAgICAgICAgICAgIC AgICAgICAgICAgICAgICAgICAgICAgICAgICAgICAg ICAgICAgICAgICAgICAgICAgICAgICAgICAgICAgICAgICAgICANCjw/wZEkG8qxmJCoxtI7B9dmBa6R Rp1MQF0xn3UmGIMhGEepdiHxLfhWJgHqJMOuSlhLCsi2MAqiRA9NeTCxH4WoD9MnJFefKR8VGTTdEFGn sNGkWQHmAYYfZxH1WWQsYOppYT5ClWEeVArsEJAdMC DkSpFgLBIyKQOnNCKqBCWqICYYOFArVYDkUnVdHEWlLEZmQQndEEYURJF0LBZzZfUkCWgtZI9Ca0BscN A4DQo+Oq2FGY5ra2IbDJmmPFFxAX1ejm7LGNaQAtLdT2BsrvI0VEEsKOBwLj0WJWFiHNJvtNX2EBKyFW TQWoRrD9XmvB03LTGVZb3+DQplbmRvYmoNCjQwIDAg k8PwDPl0NQ1VCMImPSa7vMCuFYUkT4Ric2XyIv55IKNsXiueTeUvTDHzKNKMWHNuIZYDVFIxzRK7ZcNg IcUbMmKxHPD6WWQgIR6sKRunYL1MJNX0XEicBTOpQKHuO1jXKjLnTDXoGEHgtMwjXI2WBzErF2YcedTp dCAzOSAwIFINCj4+BScknqApEdyPClOmHLHar5RtNK h4JP7JXAKhHUqcDX1MZSRrgL3mXYsoEE3YOfHbBzVjDYHSGyPaD14yxOQlYWn1M8UqJfRvIMAuAidkOF MgPDwvTmFtZXMgWyBdDQogID4+ID4+QKrjFH1HKWdrxxVqVMJmMa5MAIGpAHVqHT5gVINiGUXaJ2Q8rA fgLBHJAtGaG1uhpbagLY3aDUHbC980lNtuxfSeIFO3 HPStIq3HATXvVOK3AHYthCHyGajnMVASZFscWA7QvFSmTOH1rP4kMGxeJYYjIWCkS1bEFjEymXdyCV66 bGwgbnVsbCBdDQo+Zr5EVG9se0EhINt7wtOrXBzoGSLyDKumRLYxEXGtEAGwQYR3VNM5ZRCDAcRnFMGh DJPwKRdxZVDtUNHtri9IZGRaMRY0PQZ9XjAuQGZyHX JlYWxfDBUcOgqlHdA2GYReJPBmKL0EYpRoHORnOBQlHUoaUKXhRQPqse7PDUBgGYGzWQKuBkNoAEGeZF WqLCwqATDrOFD2RFJaYFXlBAZuOV5AKmCyWUSiRMwwPTnnLLZaTYUolu1FXKZjLCMsNWA9PaKbYORhEX EsLTkkIMKvYHDqYDQ9IZAxOKKrBV4OCyBcZJYsYETa HgYwXYZnNFRshz0GRQFuTVRoRTA5CcKgOOTmJAVpZJqoXNAzUXS3JLodHWOyWVRkBH9XMyXcBCPsYTY2 XZBeSMVkDECpmz6ATYYmGQSlYVm6EQOtIRZoFZJzDDlxFDXiIQJ1AWBaYGSxAYCwJQ2HWbIkSBZiLFd7 TNhpMIBkGYWzqp9IKOZbJHHgCyN2OxVoHWWaYCBgRE cyITKcLUZnToq2MDJtCCCyML9MCyWlNMKqIyS3KtYvYEFxDBOszy6PTYMoZMUmLchrUBFdIXMqDMVxOY flPAOfPWQ9RjkmJMNjXHPpHY5MOaFnQFOsPvB4OKoeGYBkRXWubp3AIXFsESTqELB0DLEbHIHmYAHgJF jxKUXvKCF0BSV1NIInYHTyUV8ENiMnOBDzCsTyEyYr OUYtDRDjwd6EKZWeGFRrKcBkCIBaUEEbQFRkMAhzBBFmINW9CZC7UIZgARHqTD9EOcTiRGRgRFbpKYDz NKOvZURwob2NGTOiTTH5CZMcQWJuOIYnBOUtBAooRWVmFBB8KyW0QYIkVLPfUP6VHmFaAZFgZKe5KQEk QCBgGPWdxe2LVFOaVPQ9UZE4AYJkWDSrGXXuAXkrDC WfAKZtBHE8SCNjYUGpFU5JHqCcQMUkKlJ1MKhyRDLsJSKnxf6BUZIfPNSbXFYlESGcDSMoUHPeMFloPU ZqGsK1BTU3LWKlGTJsKQ4MXnOvWXIzDek5PuSfDLAdTWVeef8EIGYqZXI5ARwdQfUyKOZcTTYsQNbjCD DaBikaPNUaVUFjJAHzTZ3OTpZjYLPsWqZ2HXTpTJIp PYJoct8UBOVhWAX6QNUzAQKzHLDuDNIdPBg1saPazNPvQGg7XT1YE2JqmlYwXQILKu2Ti687DPLjWOFk Ak7JV4jhDb4cVIFuUKWHYt3QGNr3JYnsMun7WSrbLXzhLUD3JEA4TztzGSMfOQW9HJTwXPL+IDxhOGJj VYLzAZS4IuGySob2VAq1ReSqCZSeFCswKYN5EQ9uVV ANCj4+FIvwkZMbgFztTLOWDzV5ZJl5GQ3WETRPD9EXXs== ID Date Data Source [id number] 09/20/2019 03:38:31 PM EDT [facility] Name Value Range Interpretation Code Description Data Jerica rce(s) Supporting Document(s) Progress Note [facility] UDBMKc3rKeUBOuBi30/COFfjHKRkl7CzHEnoXSi4RQfgTERhE0UsBHQ2kO7mWQD6FYlAVuGyVuUzFeQb lbm [file] AgICAgICAgICAgICAgICAgICAgICAgICAgICAgICAgICAgICAgICAgICAgICAgICAgICAgICAgICAgIC LdUFNqCAQfLPPmKBHoFW2OSZCsQPPvSKYkOSCaTLChQYVwXNInTUMoEUKuMDFqXRLbOUAjVXPeURFgJU AgICAgICAgICAgICAgICAgICAgICAgICAgICAgICAg XWWvBORcBXMlQIIjGQElSRSsJLQtHFXvID7LUEEzKIOnKYWzWIGyMSMmEIKjIILuVCIqDFByDTBiWNDt ICAgICAgICAgICAgICAgICAgICAgICAgICAgICAgICAgICAgICAgICAgICAgICAgICAgICAgICAgICAg HEMvLDLmQG7LFAFyBFKsPRMjOAOmUGPsJSHgKVCoEM AgICAgICAgICAgICAgICAgICAgICAgICAgICAgICAgICAgICAgICAgICAgICAgICAgICAgICAgICAgIC UyFCQcPMTpIWQoUKAlIOJhIV9WRDGjCSVyKDFyWOKfVPXlCTKkIWGvBZBtNPCoWQDgWHXbXYLsJJKdEY AgICAgICAgICAgICAgICAgICAgICAgICAgICAgICAg KLLzNDKuJPUdUAUdMRZcRDWoOTWmQYHjPXQpPS1NUPFrJMQtBWUbCUHoKZDxMUBbPYQxYUVbPSZmOVAe ICAgICAgICAgICAgICAgICAgICAgICAgICAgICAgICAgICAgICAgICAgICAgICAgICAgICAgICAgICAg UWJaGRUoMXCgIV5HFSLwGXBrZPNaMJTyQXNeRLPeLF AgICAgICAgICAgICAgICAgICAgICAgICAgICAgICAgICAgICAgICAgICAgICAgICAgICAgICAgICAgIC HiPTYbLGTzCHMyKZThXSJgLTRaJU1XJVCgCIBdAADoBBNwLUEiTINyQFOyEGOlXBFbVVFyOXOxVEXdFY AgICAgICAgICAgICAgICAgICAgICAgICAgICAgICAg KHHeNNNbHDFdWDZbGTBgYRQfLZVnWIHcQMVmIJFqWM1ODGJeHGBeRWWdZPMgAXLwLGEzJMRzDNBiYKMe ICAgICAgICAgICAgICAgICAgICAgICAgICAgICAgICAgICAgICAgICAgICAgICAgICAgICAgICAgICAg VQHiJCTbJOKsNLCjSS3MJYJvXWYiVKGvYIOtOVDnPS AgICAgICAgICAgICAgICAgICAgICAgICAgICAgICAgICAgICAgICAgICAgICAgICAgICAgICAgICAgIC EdFWQsEAWeECMdSCDdMVIbREBaOTTjOI9DKQ45dGKng1Z4GDDfCB5rlcn/Fl6DYSodmsTzgGFfKQ1XHs PyQN7zrv4NJpScSU4wyt7TGJtYHwRwU8A7pHQqGRMe SAXAWmAcH04mNBprEw06TLmqHFDoUuToNGz2Yx6AZyDuB4xtCLMkBvF2JWTqCrS6BHFlXmA2ZHKmYlJv WNNiAJAzAJVlZNOEWZG5WZUoZdMpWYtdXW6Gp4CgvOW0YSn+Zc1IJY1rs2OpUZuvVcJeBQ1vkk7HKLpP LzTnT1IxipK9OADtCWNmJp1ECRCmKVLswVJjCvBuXJ IOAdOqE0KljG39VHGUYy5+UTujrdBqXigCNwNsIPMdu3GvZDm2PX2ZJKEdMBp1yHUjOZGgM0Qse8WtNo 35WJOmFqlzFNzhbOveNVo0jy9cvLzkekvwSUDpTMLdBt6fXa4fSKLxCQFwMbExWOZCAQ6UVWAwMTSuyK WbFHZqBQFVXE0LTCgvUNP3DTJjgqFcjOJqZFmzZK0C YXJlbnQgMzIgMCBSDQo+Kq2YGJ2ia5HrIFjkULUjBV7qym9QXWpUNaXhE9I2xOYpR9F7EFwsOp4PMMXp GIWzGaQnRCHFRNbqCJ1AAU7sowD6KD2MeEAwLNPjFENilOBhGMb3Q39ooCRmLKmyLB2EFKO+Magdiel+Pg0K STYnFQQgOMIaAjKqSBRNUbKrK5IaP7REe7UoC4LuMO 75pAnxizWyOKyzAF2OTX7gFWOaUKWVFV6OpLXjgP2ypyVoPqOhXIFNZqDlT42rfMAjSTQyBFAoBZTnDv 5LGZUdN9SdjmNtxAuycpBcZZBvXCPBEG0ZEKtcxgPklQWjoSfpAE70vFocRH9PSg8UZbWtOH9emp6VrQ XkVj0QNVCtZE9EXOFxOITqWEWeVYN3KUJrYzXiFTek XOUkDZJsEUF6ENSpGKZjSC9UXmGuMNMeJhD6JRTyNCKpVJXzxq2XXFYmBFGnPPHfAJPwJGSrJCWfGIkj ODGuKEFyHLD9ZESmDDMiJC9ZWiPiEHCmWHTlTAonWPEiEQGhkk0KGRMvOCSuHtGaBnSeLGSiZYDlXFfn KYTnMQO3PBF7EMAkLHIiLV0EDmDtXXHsYAV5GQjcVQ UeCRIljg7GGGYyYFHiXGCpFKXxJHFuVIAvIEnnERDjCGW4FPG7RXKeNXDsMM5MMtMbYDGkTXN9NnZfZP ToIPSqpi0TIEDcERFoQSvmRtLvTXJwSRMdDXdkKVNqFRAlQxbyNQVdWQWtFH4HFwAzPRGbKXS6QBriTQ CyDJYvzl9RNKOiJLJmMCg7CcQlIASaKIYzSWbfZHAe GSY4PIu8EBWhBBHlKD1KJuVyVGJeRVupMZawRGXhXROzbf6ADJDqSDDkLnX5SyLsXUBmHVNdLAitQYXo BTI4HZQ7QGLtGKFpFR0JFpDcKPZwHZqxOBgqVEQmLPDxej3QSYNlRKRdMIJqWAZhHSSmPZElZBywZPGg DNG6Kiu5LIIlRFMmRQ9WHmXqMFZuOyBkOVquQDDmEU Lmpr0AIQDqITPkXJW5EcApEAWwQMHiLEwhQXMuDXAuLwPyPIJsKMZkJB3WHbDdDWYgYwNfRODpMPQrXZ Mqhm1JDEIeXBHwMPW6QRFiALSwBPQoHLewPXOkYDDgRUnrFZQkFTAnHM7TRfQuQNMmMzHoDQBbYGOyFE Gwgu1LFRTnSXXwPzF8HOQvMCLgSTMrDCguYJQfMNHe NGr9VIJvUDIcGN2TRbAoKAFiSaTxNRCiSQMjCJAics6DTAIuEJDtPOArMjKdEGKgRRGdRTunCVFeHRG7 PPC8JJBkHOIfAL0HBfErUKelYJXTAlq5CIbeA1g8AJJuSO9VO1Mgp4GlZwViLDKYNKlyID3cfmXkFOIk Lh9QA4jULchlHkWiSusiDjR6OrQ1TpBfGlIlK3JrQf N5GDOpTPEbAb5yAAIjRSQ2W7OcMQzjETtvPRN5ZUI6EAKrGTDoKOD4FLN0OrXhXC1CBh0CGoC8PGL4fH AvHk2PPqZ7KSERXcCqSR1JEGq= ID Date Data Source [id number] 09/13/2019 11:44:08 PM EDT [facility] Name Value Range Interpretation Code Description Data Jerica rce(s) Supporting Document(s) ED Provider Note [facility] MSFENv1tFqLTZcGp63/QUTplOSTlz3OaYFmbDGx8LIlsMQDmC8IvOHO0oN5pATP1VOgTHrFoFtVdZzAy lbm [file] siOCQ9GVnhytjSmVw5iGePYvLUkpYCR5bzfwRgPWgQH+hVlZ1c+h1QxO51dgsqqVx+color television console monitor+PiRnm4BI9j [file] ICAgICAgICAgICAgICAgICAgICAgICAgICAgICAgIC AgICAgICAgICAgICAgICAgICAgICAgICAgICAgICAgICAgICAgICAgICAgICAgICAgICAgICAgICAgIC AgICAgICAgDQogICAgICAgICAgICAgICAgICAgICAgICAgICAgICAgICAgICAgICAgICAgICAgICAgIC AgICAgICAgICAgICAgICAgICAgICAgICAgICAgICAg ICAgICAgICAgICAgICAgICAgDQogICAgICAgICAgICAgICAgICAgICAgICAgICAgICAgICAgICAgICAg ICAgICAgICAgICAgICAgICAgICAgICAgICAgICAgICAgICAgICAgICAgICAgICAgICAgICAgICAgICAg DQogICAgICAgICAgICAgICAgICAgICAgICAgICAgIC AgICAgICAgICAgICAgICAgICAgICAgICAgICAgICAgICAgICAgICAgICAgICAgICAgICAgICAgICAgIC AgICAgICAgICAgDQogICAgICAgICAgICAgICAgICAgICAgICAgICAgICAgICAgICAgICAgICAgICAgIC AgICAgICAgICAgICAgICAgICAgICAgICAgICAgICAg ICAgICAgICAgICAgICAgICAgICAgDQogICAgICAgICAgICAgICAgICAgICAgICAgICAgICAgICAgICAg ICAgICAgICAgICAgICAgICAgICAgICAgICAgICAgICAgICAgICAgICAgICAgICAgICAgICAgICAgICAg ICAgDQogICAgICAgICAgICAgICAgICAgICAgICAgIC AgICAgICAgICAgICAgICAgICAgICAgICAgICAgICAgICAgICAgICAgICAgICAgICAgICAgICAgICAgIC AgICAgICAgICAgICAgDQogICAgICAgICAgICAgICAgICAgICAgICAgICAgICAgICAgICAgICAgICAgIC AgICAgICAgICAgICAgICAgICAgICAgICAgICAgICAg ICAgICAgICAgICAgICAgICAgICAgICAgDQogICAgICAgICAgICAgICAgICAgICAgICAgICAgICAgICAg ICAgICAgICAgICAgICAgICAgICAgICAgICAgICAgICAgICAgICAgICAgICAgICAgICAgICAgICAgICAg ICAgICAgDQogICAgICAgICAgICAgICAgICAgICAgIC AgICAgICAgICAgICAgICAgICAgICAgICAgICAgICAgICAgICAgICAgICAgICAgICAgICAgICAgICAgIC BpYOMzTDPbNOIaADKbLAEbFJy7R6vcCDRcDMCrFO7uQFd0Wf9+GToXFhBgALM0dkEolT4LGR9zb9YcLA btYKNwq2KkDCu5BL7TLTLqQNetQF1EHPheoo2NAGZb PCLftBSNp1bwEeLiUVW0GGYeAbasGI0XETYsL8oywsYnVUSoOCNLZHlxZYGDYOxnQHKGWPKwMMHtFyQo JqIgKDWrHYIxNJZCQCB2SPGoBiVzPGIhCNMeMtPnYJJEGYRjGKOxByQlCQZuRWNuFpqwBLXCIDY7NMKo OdXqMKeuFM5Er8YqlEFuCw6QCv6QJfBbHM8vka9ELV blMPSsRqhLStk1JTsjSF1GuXFhuQY8IZMjQANBRnHhL1fkx6BiPSYcIPJAGSylYY3Gb2VevSJ8KHn+Pg 2JUS3yb9IgLKf4GAUjYO1phw6HDBtSSpFbU5RixRakPECUDVPgg5McBRDxCW7lvGDkMLV1OPPfiFbdKy G0sVUZAOFshM6QhHe2gEghLESgXVNrZo4vHZ9aGXLt LIZ1WgN6KKRKKO5AVPCmFOHvhLIoLDTvCSTZSW2AGYgdFRW8RmAcpyCyiOEeKWhzLQ4EQVEibjQvZCqa WYPVXFypIH2POHs0SMPaNIUiGk3YKy9UHmDqYK4cnb2VQNWeHSQkBuhXQqz9DYdxUD5KePPjYCfXPFGK xv01aTPadmGDc8BuvhYaeXACbKq2FQVnqAmjTMBHAC irH94hvUigJF8VHRO3ESDqUTSgMtDgYZJqJIspBkHHIQmPQkMsC8Nhw5JdZoCdLUQkTSXzB8fKHyGiDB K5XTKypMotHO3ILgBkH1XjknBdvIP4PEIzNXEOGqTfI9ItNZUvBUVhEUERLEgaID2SNNp7BBKzKJYiOj 0DMj9QThHoAT8qgo3GZMIxILCnSjyTDfm2NLwcQO5O zGJuOIuUxv6bLNZ1fqAmOGE4UQYkroXvWoUyJIWSn8Ebx8zsNS8QLcTyIJXdOk3bXn4sNFEuFEK8YhWb RLXSRZ9JEOYgUDEhyNNxBYI9RUCoVtQmUOadILNaWJicUE54tHivIB2JCIFuBOJiXX77UKP9EJIhBm8L IRYvZZSedwY3MQRyZYZQZaJgJ70asYTsFDPjMCACAF o+Ki0HFP7tb4FdSFr7CgHlGL3gxd4SOXoDRiGyZ3HmfSmuCVYABN7aiOVvVPU1VSCmgnozma7gLK5zSu EffFnjjpAwPOOJWtYlxOK7LaF9PkHrXkTaGMs7BHLoCX5eASygVD4LYXW1TNnfUxveUEKZHR1THJerZI WfPKqgsaKodCEhYNsbJW0YSRMqxhTcUEffFHTYUDrg NV3YfbZ3IGKfZEEsVn6EIBEwOlU4zWA7DOUlWAHSAf8+YIzttmTcUlsYOgU1UKSmj9TmWAk1RJ1LHDTz YOc9jTJzCESiAYOvTBhoBX9nuNJgQQX1GBCqO0dijFWQHUE8NVR0NBTEYvKyjVQ9GqR3KzGyDmIvYQF8 CVtzFC3gSDopAE3NFYC7VGtxGuvqDYICIP5JCYqcEE O0HzZhfBrhRG3PEhQiG3CmzcKonTD0FZIiZRZTTwGqX9ReHVDwWTSnTHZTQJe+Rf1TXK4rt2JwGMj9SP ScQP2ovf5KGReEEpDqV9M6oTWrT6V4LEcnUy3JMKInYWCbKHzgTDWKMLzjBK1MKV0zwwH9LY3CbNSuZB YbKGQquMEnABy3J20kzBVnOXtiOJ1VZXZ+Magdiel+Pg0K IKRvRYOcRJCjGfNeLLHHVvUjC8MdR5GNd1CjA9AnRS03qApweiVnPYkfRE7PYQ5wUMNlXVPFEZ1YjXSx eK3mklK0DHXlQRODTzJdT50hvFVdSVZgZAY8KCIbOz0WKJXhH3JdytQgqFfzqpNoMGMsLINUNH6FAJxh jhIhpTOjvWemBH78zAtgAP2LHc9LZaPwXW7wdw2IgO EfWp5VQZL4Yr7TOEDmKXZcGORbWYI5JTSzIaEsXOjlTYOuTYWrZBE1DQFoKGVlGH9PAhDfXKPnERJ0LT nlOUYnVYAjlg5YHZAnBSY6IwGtGUBbUUGfQTOeCJclZNRkYRTjIKB6FXPtNYFzZL4ZUlIdVEQuBGX1JK OhYYSeWKPgxw0WOIArTSZhDdr7ZFZgQLScSEAtQIwg ZNYwZOG6Xbu6KZVuUHTrAT7YSnXdTBQiLVJ8FOSkTJEqUMCjwi3ZLVPoPLXwGWg5VbCnPBAcUBFbJIbm UELgOPT4DJhdEVMtLDMyAC2EXnLvCAMcPQPpCNFkUYTqQNYqzx4RKVXmUIJpYvE2CKIrLXDqAATfNBmg AIOdBHE7FSy8JZBpNCKcZZ4DDhTuZTSfATAqHGSyJV MxHGVrgn0RXAEeLMAbUPWbVUOxAJQnPPJrGJhvYQSuIBC4IbFiHJDrWJKaZR5CLiNwZYUfMnUsJcBgHJ TuKPWejf0ACHWzUJUmOIF8DcGuAIOeTMMsVNiqJBBxIKSeDoD4JXTqUHVzJE6EJzReEONyXdZ3ZrNaLB LuKKJuwu3EXVNoOGJuBbK3YbSgUIXlYMLyLRzkKVUr ZFQ6Pwt8ACGyXEMrZR5FOdOgVYVlAfq0OdsqQRXdORTdcu1VCNMbKTZwRWi7UQCmWJTlZMOfNHaoQHKq OEBbHTFiXXVjQAXyVV9YPqRrHTXsEzUgKElhADIyXRCtqx7MOLPbOHAeTrV2SPRzIZMpWXKdJJctCAQa IOU4NHl6XHUeAKGgDM3TGaWiAKDnEar9YtAwXGIaEI Vzfb6QNBVkCQQwZMMlNXHsOURmTMWyQHewSFMbLQI0WRgvBCIaCPDbHL8DWlVeTKKmGqvcYIecLDOhPU Kffl0PJCKaLQEuUJR0FAIfKSVtBWIbZVttVHGcCAAiCHT3JXEhFRJyCD1AWcCrAHErJIU3EtWnVYCtPN Ykex5QFYMbDKH7PElvEJBzFHFaROLvDCfgZCLuQBMh Vqy6EOOlOYVzGM0UWjHpNJQgUOP8SpHnZPTmOBAnqe6AXXKlJBB7RvZ3GVTpPPSbEKUbYHpbPAVdCHRr ODK3FSLmZRTpUK2WGxXyCHYjYLB8EgZrPMHoBBJaos8DXKOsSSM0RJD1DYYyEPSvNZUaQDirZZMtKJE1 SgSaLUJiPKDxCJ4QWhVnSRLoQLV9PJTeWUOhZWVapd 2XMSZlOMO6QHQpDHKuZKQyQZQxOKdkEXWpGHI7ADn3WBGrHXCeVO4NVgEgQTDvDFW7LfUhWSAaJRTsrn 7KRMNzAOH6WyE8HITlGTCtLPRwMApvPGWzQRJ4VxAkOIRaJTHrEK9HHhTsSSEjXVa9EENxCPQnGAYvxn 2ZDWVkOFL0Msw7LrOmGQJbTWZsEGgzDLPfGJT7VLJ9 KCXqJTBuME4QSfGsYJBkFNuaXCZrFYIwPPDayc3YSWWzTDJ6FQUeRhQuHCWqFXDqEMhcTYDhIMJ9Ghs4 KFCnZIQrRD7ZYhXrLShwJAMOJjr0CPvnE1u4JXK4Gy9DY3Bwu5DmOPNuYUFZMEqpBM5ufcVhNZSbFf4Z T3nZTgh7ALQxWQFsHnC5ZmVnOZipUKtrVQYpFfNmCY lwGoKsZK0vMXO0ITVfTlFlGUA1ICC5JKJmRzF5TST2HLR7LYU9UQPzCkIpYN6UHq6NKmZ2IJN5oEEkTf 0TDDj1OvZWLhBoMW6CVRm= ID Date Data Source [id number] 09/08/2019 12:22:47 AM EDT [facility] Name Value Range Interpretation Code Description Data Jerica rce(s) Supporting Document(s) Discharge Summary [facility] LYCNCw5iZeMIQqTq81/KFYdgHNAia1IvDNkaMDc2JDjmOJJfW6LrYDI7kQ5wTCR3ZGkOMoOnVpInJkK3 lbm [file] Cg== ID Date Data Source [id number] 09/12/2019 01:24:30 PM EDT [facility] Service Cmnt XXX-Imp : NoneGram Stn XXX : No WBC's or organisms seen.Specimen concentrated prior to staining.Microorganism XXX Cult : No growth 5 days Name Value Range Interpretation Code Description Data Jerica rce(s) Supporting Document(s) ID Date Data Source [id number] 09/07/2019 06:05:[address] [facility] Cmnt XXX-Imp : NoneCSF Panel : [...] rce(s) Supporting Document(s) ID Date Data Source [id number] 09/07/2019 04:20:36 PM [facility] Name Value Range Interpretation Code Description Data Jerica rce(s) Supporting Document(s) Glucose [Mass/volume] in Cerebral spinal fluid 62 mg/dL 40-70 [facility] ID Date Data Source [id number] 09/07/2019 04:20:36 PM [facility] Value Range Interpretation Code Description Data Jerica rce(s) Supporting Document(s) Protein [Mass/volume] in Cerebral spinal fluid 23 mg/dl 15-45 [facility] ID Date Data Source [id number] 09/07/2019 04:54:48 PM [facility] Name Value Range Interpretation Code Description Data Jerica rce(s) Supporting Document(s) Color of Cerebral spinal fluid [facility] Clarity of Cerebral spinal fluid [facility] Tube 4 Erythrocytes [#/volume] in Cerebral spinal fluid by Manual count 7 /u L <2 H [facility] Nucleated cells [#/volume] in Cerebral spinal fluid by Manual count <5 [facility] Microscopic observation [Identifier] in Cerebral spinal fluid [facility] Cell count and Differential panel - Cerebral spinal fluid [facility] ID Date Data Source [id number] 09/07/2019 12:29:40 PM [facility] CT ORBIT SELLA EAR WITHOUT CONTRAST [id number] 0FINAL RESULTInterpreted by:Ross Platt MDEXAMINATION: CT ORBIT SELLA EAR WITHOUT CONTRAST [id number] INFORMATION: 39-year-old female with history of breast [...] rce(s) Supporting Document(s) ID Date Data Source [id number] 09/07/2019 10:35:53 AM [facility] MR BRAIN WITH AND WITHOUT CONTRAST [id number] FINAL RESULTInterpreted by:Malik Platt DOINDICATION: worsening vision [...] Name Value Range Interpretation Code [facility] ID Date Data Source [id number] 09/07/2019 10:35:53 AM [facility] MR VENOGRAM HEAD WITH AND WITHOUT CONTRA ST [id number] RESULTInterpreted by:Malik Platt DOINDICATION: worsening vision changes [...] Joseph(s) Supporting Document(s) ID Date Data Source [id number] 09/07/2019 10:35:53 AM [facility] MR ORBIT WITH AND WITHOUT CONTRAST [id number] FINAL RESULTInterpreted by:Malik Platt DOINDICATION: worsening vision [...] Name Value Range Interpretation Code Description Data [facility] rce(s) Supporting Document(s) ID Date Data Source [id number] 09/06/2019 11:07:33 PM [facility] Name Value Range Interpretation Code Description Data [facility] rce(s) Supporting Document(s) Consultation [facility] YFWQHt2nCrHUWnNc94/IUEjxJIShz7UqFTvjBMx8EGtyYYOlT3LeOGI0eU3dBAZ8GGsSJgCuDuEvHiH0 [facility] NzWjxIJrIvJYBwQicKCyUwZQnsYsvkqLPwZG7QwNZ3PMOlA29oOIQaIRYfS9TaRHH2YSh+Rh2WJUSgsH GzBZ5KJzdH4A8zblu9Li9oQF0AdGlw6lH2Vol7J3FKOooUo5cftKd0CiLZ1LuJ9rbzosKq8h/u1LzilH X9i5zZKz0Zzz0hGa854kg3lIQdKwr1S8UdKA9mhYa/ iz+wMFyfmyudV4TjyVwUh6P/vdLxEz5GNgD4yI4xbbrK/Pcj0w82LbVlJg9opd4PS5/tZN4aFrzwGSL+ 9tPpM/Bqm1wEx+w5f7jvMmqYIhL010//Nu18Qj9cfAxmXpgQ9AcGbYepBaqcYyfc9CnPz13U8pXVURo1 nDBcACzKUIUIpAq4oZ9PN4HdujDfc9igGj1EuI0Vcf b32DPEzeDhR2yOvgf8bnXuEf6NRok2m8RHovdKj5j/Cl6ALEjh1sfr16l+9sQjmWqkQqj4ZU430omaYx riIfdAuS07vmIUieIZukQ9iSi4Ez1KUQ4u5UhfxipJe/J2bd4kHzDrLn/XJLbuDIVHNmERjddf4eNPd/ iIMTZTdTz3oj15FInySelv0eKKOLbyvDElIhWbt844 jx4p6kwWfsYClbHIOuNUvvSk2QQlt3LoGEpz/d3950As5nWn4tdfWAl3YAkCSjo5W4bJGE7GvWLtBG4f C7fb81AsBzUc4WD0GQ43hdqudHKHdeEFzbXLZ2zjSgz2oARkSkj6W0kSVa5c1v1/V4DfnIurjFOvITbB kCE7Hl/3Yih6thiJaE0Yvle/mE9N02AdHlf/tEJRL9 O3FaTq3U+GDjpmxiKBnjdi5qd3A2PGiaQlPBMS73O5BS4d603MtbS1gA8AkyaWcLgCMEtrLEwD1enbH2 FvFyHVi2wN3lQ0pou/Galilea+/cgKO5SqCJhULzgYsvHnsggw807uNNxE03oBROnHGwGqlEFEo7D2KRyD68 3baK17s7r92fq518cf2nk59Cq2w0S1jBt9qUJqw6G6 [file] holman+U6+/9N2/J+2y3/sgJ6C4zC7n/Tbttt9aCqFnlTB+MgPtFjbTcT6MVTyHoY6V/sd3M/RTThxo7suXF Snqeq+Yl2a8/eTMjzSYI1roZ7rvjYnOQm5MIF6Lcht 8QV357dg3r3WD4oz8O9o9/b6HO/DbNylS30RdN3tVwJfrk5UC+sPxCv9qdcgB6X5a32+i3xyB6gyRB1o 6B9zyVGK+br1W+Oz7WVT6b+F90WWVSusApr4BPs6hV7mi7WI9oH3fVzQ1+WR0fUYy1rsusJ9ocI19M53 mwfmODs0zSfg8gS+drl8LMzwruiLjz4P7OSbcw5Esy iBgBf6iApO5tKmk8NZqlraY72rl0F1K5g3Ch+X4drBqakhlThl13m/hu/NZDjNMsjTo1mCaL93ln3h12 dT+0uzoMc/IJ+6+1T3sekOfzKvF6kYLEdamQEoPeDHF2A0z3VqkJUSvuKEHD6xPMVzLG03rMsWgrw8Na 0e8iGw7Z6WcYOWbMnO31xtOz+FfvIT+AFNh/8NUANr abKsEi2drIRgvp27clqkZ0zqD0tumAnuw5Oe5Vonz8bHPW9ij1jnngWioNqIaJL+MdLtstfvvK/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 [file] WEB MANAGER+Zz9PSNQcZKy3H4V7YDHeOAm1G4GCA1JALBElUUgzPVvxEZBhTIr6Z9S9NFFbS1OIH3Awhxqrgy6+ AF5AQ64SKLXiVMq3S2M4iTSsX7T5wOxQySV0NN8XHX1OuQr4pJGvlI1+UK9ZL4VUQzOiXNe9F6K7mQSy U5B0cViCcZC4LZ7SLI8DcRGlFNHpsbDnKh4qD1XIHJ yAGjVTKJB2TF5ClHSnXZ1QeIVQO6AvqLThNq2wCAvvxNKpvZ8jNi8aGElhHD9BSmUYVHxTXSX5PN4LlY IhJC6KuDLKW8SdlRDiBc2rGIretSJxvr5+DC2ZGIXvSg4BPe2+FOlrtkWcGsiMUnEsSNRbp4NuGSx1PX 5QFZ1srJkiHJV3Ss9KxCJ1nZUxE5jXLQ5VtYNtS15y cFXlJVGzGt6PLuP5uwMvtX0XFN38sWRps4T1SGVlK6fvZYvuj09vOSsuTKzNHQ8vJGRDEHuaCIpvLRE3 GlXwzoixCZEvLo5WTwBdWVj4gN8qvIA7REX6JjnqeBAnGWhlZoWxCnScCdS2uBqmlxb2SSxfQF2dOKns czptZXRhLyc+JNytCVBxLJVzEszSLXImsQ6cycN6me ScAYpwgIJqUp5wl1b2JgpaUh2qGs0rEWm3SfFkFxGkMQPfSf2tdA64NClveuUcEe7ITxDmLEF9X4DlXd pSREY+DWftCLjffVp9zFJiMPIjEt9MYECeDDQfWQUdODDoLPBfHLCnHJIjJMMtCROlXSIqPJRqZEIaYO AgICAgICAgICAgICAgICAgICAgICAgICAgICAgICAg OLEdUWIzEDXmQEEcYOPuUBVyMYZtDXQlTSSfQCMmDB9NCBGfDJBdNQTwESMkQYMyZNEjBMItJJFyHDBk ICAgICAgICAgICAgICAgICAgICAgICAgICAgICAgICAgICAgICAgICAgICAgICAgICAgICAgICAgICAg LCOvGVRdYNMlZHJzEG5AGQNkSSLoPIYmBLLmZTOnTD AgICAgICAgICAgICAgICAgICAgICAgICAgICAgICAgICAgICAgICAgICAgICAgICAgICAgICAgICAgIC QlCGGcRXVtGHWxOFOaBQYtZTLlRFWdAZ7YUZKaFMZkTGDsGVXtOAZjRKRbXIUnKFIhXVTcAEUoWDPlJP AgICAgICAgICAgICAgICAgICAgICAgICAgICAgICAg SVYpTXWhHYDcVKUaOYMsDZPzBLExJZQnWJDcBUHyBXLxOR8OEJYxEWGoAVPuMWSeNEKxJTFuFSXqHIYq ICAgICAgICAgICAgICAgICAgICAgICAgICAgICAgICAgICAgICAgICAgICAgICAgICAgICAgICAgICAg YBOaSDDdFUKfOAHuNIOmWU0CBXYdGSAoBGKzWWMlOW AgICAgICAgICAgICAgICAgICAgICAgICAgICAgICAgICAgICAgICAgICAgICAgICAgICAgICAgICAgIC XrGAGdRFLmOEOjMWBlLHKcSCMxHHWhTTVmZU9FTGTyZJWmGKYbEGLkFPTkOMYfBPReYUWkZUHtHODuJE AgICAgICAgICAgICAgICAgICAgICAgICAgICAgICAg UYWdTFBeFLZpISQxAFHcUKIfYFIgFZUdKFPqUPHqJPMwRFTqDG0PXMIwTQFxBYYbMPPzKTZcYTNkUSSk ICAgICAgICAgICAgICAgICAgICAgICAgICAgICAgICAgICAgICAgICAgICAgICAgICAgICAgICAgICAg ZIQsGGAgQUZbJBKtXEZrHDToLN3VMUPwYJTrWHDdXP AgICAgICAgICAgICAgICAgICAgICAgICAgICAgICAgICAgICAgICAgICAgICAgICAgICAgICAgICAgIC GcHXGqOQIyMTTpNDQcLCNzNJIsBXPvOSDdOHXkDM9REPNlIQXpCFHeVZUqNNGvNCIbWKOdSZXcPRNxSS AgICAgICAgICAgICAgICAgICAgICAgICAgICAgICAg PZAqHNVuQETeFVGePQDpNFSrTFJlMCEkEDFrINBvTFIzGRKeOGHeCP3HJC65mDRvm0V0JXJjDE6hpls/ En2RLMcuxlXlaDOdUP2GUyElEO4pzh8FWkLoMG7soz5LBCbDIaUoN8V6xSStFEMzUKOHTgApI42yKPgv Zd14GPlxPCOdOxBxXEg8Vt4XCmLcN6rdIGJiBkP8LD QlOxZ2MWUjPwY2VPMsShQeCKAvMMYzWLItPHCXLHP5RSOkWoOuKOepMR2Yl5BjsZA3AMu+Ku8SSL4af0 ByGYf7MvQhOB5lro2TYYmCJnXxJ5RzjuW5JXM4QGFfKd7GSYGjVLJyqJF7ONHlOJTUZuVfM4CwnI95KD ENCj4+QQexyhVaXigLEvB9GVXuf8WvDJe6SJ4PHADh ANw8aILaK61ds1OsxARfJivfInMfrPebGNLkzFDdPMHUEDNrhYB3MpC6KdFfIiYcFYT0RXZuYK5xSRpj XR0HQFI9UDhtIAAaVPYhQ8cAPsXhNPUcSKCesBknUB5LTrJiY9YmitVhdFW4EkYbMFXSTm2+DQplbmRv IewIVmI9OYEub8LbRUe0VC4AQQPfKYatTQ2PDMGlcN 7lDGjjVN8WMsR7EQXyQMEDWhVkC65upGFyDHd5K8EfQiEzHUGtVqboDEUdWEweWrQxTZFlNmFaRFovSM 4+ID4+WLgmSS2NQQykkbJhVBFsPv9ELMMeYRVmVA9hXDUnAYUbC9J6yDpwBNSLTxYfG2nvbegnEC2qBS LpQ845lNxxvcUtXMYmMPEeZf3EBLFwCEK3SNCqlRSx QTXtGOYMOMtnPS5YcIYtSBJ7bA5qVHbjEPEySNApP4nPRbAlmEcqJJ28pSazpzZfgKAuVBn+Dg5KPS6k d0DgGMg1yuVvBWveKKO2ZErzXOJoRHGoNPRgQOX0LVW2DNMLIoZvOOBsQFJiJNsaASSzEHKcec1MACSt IWM1BGEuBABvKFAuBOKsWBnpLXKsPJYoKWHyOMCtYF FrJH4YAqIpRSXySMJbXTymVIUvGRNckx1TQSKtJPNhBMPsFGBqLIAiXWYuALivWQTbWPC1HzW4MMSeVA ZvGZ5OYaWiOHWgXHh2RIAaKPJdTAKnns0RUKTqUQAzSnnkSBPqVAKnOGCnJUdiRJOaVMCxHyH7UNCxTQ IaID0LAnHfPNLxWGP9GsHeFALkVBUjfd0AURIsLEOi QjUgAAUiAUAoMBRlWRbvECSjLNQzFIV4DRXnHEQuHP5GSkRfZHLsZVs1FTVmKWIwSHQvqz0GFHFjFPSe Eot6PWGgESYdHEVdUJrkNVYxPEBkCha7QVFiFOKwDG7ZDqKgQUQcMrX9ZWAoJHUpUXYfdd1VPTPnBAGy YVa5BLQoQBIaSBHgAWpbYWFvVAVyKIU5KFVnICGqCH 6JYiMbOEWcNzQkQzMoIOFgCUCcst7XOLMbEVVbRwL3WCNmZCQbRQRxVZtrJPDcZWKuGQezGVYaIBIvRJ 2FFpZjOJLdTeR5EKKkMPPrAUFprr6OFFAwRKOmHMR5PWGxONFwOHSnWOnvDQHzJVQ5AYV4JNHgBMNmXI 6SVjOxDDFeZgDkVqYoJLLtLPVcgk9VTIYsZXE4MAZb SJUcZXGcSNMzPQidQLEnPUY0AFitJFDwNDTqAO3QFzFoPDBkVJXlGQNrSGTmSDFbqu2HXGSfVMI8ErXi SILiWBRuUDLzEAezWDSvVCO7BbgvMDWeQMVkGB5TBvCpFBRpSIi3JrVsDGSgFQGaqq6AELXmGAA1Ffxc FoHmBRNuLWUbCActMAMqXTH5VHb1VPBrDGGpXO6RQa LvCZNfBSv7KIQkUAGdLZYjhq3XTIJsRNM5ESItYXHhJKAkPUUkBKepDZMtGHY3CkS1GARuHXSuZF0WDm JoONKeNvI8YTCnDANjIWBnam8ZADOfPCO9JYMeHzYbCUVcFYYxDUtiBJGoTCXtAfHbHOStZVTmRX5EJe QfVJLmBtS7FtTqDSEqXJIlvw5AZJIrLBS7AUHsNwWp KURnEUKeNKtfKIZsUZAmCXdoHJBmIAYqUS2FMpNrZYKgWbL2SMUhVMRoXWKmhy4ODPJdXNQ6YcFeHhCa GOIdLHSxUMcxVBHhUNJcRyZ7LZXuBNKzTJ7VCoWdWMpqCAWULpn9SDjsH0h1PVP8So8BH1Fpw6HwRPVm QNFBPHsqZY6ugpXpCHDmDl2NI3kLRel1G3SnBQw7Ai SpMmNjUuP1HYLpOOM0D5O9FuebKSQsHC7jJQc8MhQwXVZmTMVdEIJjRjDyPcG4QhL0TBuwIFZ5TJNpUz GvQW4MLc5BXzH6ZNC2tISqJa0OWuT7HQbPQtBhWF4JFQd= ID Date Data Source [id number] 09/06/2019 11:02:53 PM EDT [facility] Name Value Range Interpretation Code Description Data Jerica rce(s) Supporting Document(s) History and Physical [facility] EGWCZz1mNuUYCySh24/BPKuxZCRct4RfSGzbZJr2RZbpOEKkC6QgTLK8pL1bBML9PXsQRvDgOaPhCwT4 lbm [file] [id number]= ID Date Data Source [id number] 09/06/2019 03:04:59 PM EDT [facility] Name Value Range Interpretation Code Description Data Jerica rce(s) Supporting Document(s) Consultation [facility] PLMQWr1aBoZCUkXj24/RAShvUHTru7AiQZzeLKv1MWqwJYYmE6JvZXR1dR6jKYO1UNcVLrZiArUaZoJ2 lbm [file] adXeTuCGBcBhGfV6I6OCQfEMX2EQt0XG0sTJMGUp8+CJwfzVKxbNlvZSRCYzW4LZXrFDpoMFKTJf0Y ID Date Data Source [id number] 09/08/2019 01:06:25 PM EDT [facility] Name Value Range Interpretation Code Description Data Jerica rce(s) Supporting Document(s) Acetylcholine receptor Ab [Moles/volume] in Serum 0.43 nmol/L 0.00-0. 24 H [facility] (NOTE) Nega tive: 0.00 - 0.24 Borderline: 0.25 - 0.40 Positive: >0.40Performed At: [facility] [id number] Sanjai MD Ph:[phone] ID Date Data Source [id number] [facility]2019 [facility] Interpretation Code Description Data Jerica rce(s) Supporting Document(s) Acetylcholine receptor blocking Ab [Units/volume] in Serum 32 % 0-25 H [facility] (NOTE)Results of this test are labeled f or research purposes only by theassay's respiratory care faculty. The performance characteristics of this assayhave not been established by the respiratory care faculty. The result shouldnot be used for treatment or for diagnostic purposes withoutconfirmation of the diagnosis by another medically establisheddiagnostic product or procedure. The performance characteristics weredetermined by [facility]. Negative: 0 - 25 Borderline: 26 - 30 Positive: >30Performed At: [facility] [address] [place], [place] [id number] Carrasco MD Ph:[phone] ID Date Data Source [id number] 09/14/2019 10:07:04 AM [facility] Value Range Interpretation Code Description Data Jerica rce(s) Supporting Document(s) Acetylcholine receptor modulation Ab/Acetylcholine Ab.total in Serum 0-20 [facility] (NOTE) Nega tive: <21 Equivocal: 21 - 25 Positive: >25The assay is linear between values of 12 and 64.Those <12 and >64 are reported as such. No singlevalue for ACR-modulating antibody should be used asa sole basis for diagnosis or response to therapy.Performed At: [facility] [id number] Carrasco MD Ph:[phone] ID Date Data Source [id number] 09/05/2019 09:41:54 PM [facility] Value Range Interpretation Code Description Data Jerica rce(s) Supporting Document(s) Prothrombin time (PT) 12.9 s 12.5-14.9 [facility] INR in Platelet poor plasma by Coagulation assay 0.96 [facility] Routine intensity oral anticoagulation I NR is typically 2.0-3.0. Target INR must be clinically individualized. ID Date Data Source [id number] 09/05/2019 09:41:54 PM [facility] Value Range Interpretation Code Description Data Jerica rce(s) Supporting Document(s) aPTT in Platelet poor plasma by Coagulation assay 26.7 s 24.0-33. 0 [facility] ID Date Data Source [id number] 09/05/2019 08:12:40 PM [facility] Value Range Interpretation Code Description Data Jerica rce(s) Supporting Document(s) Leukocytes [#/volume] in Blood by Automated count 6.6 10*3/uL 4-10 [facility] Erythrocytes [#/volume] in Blood by Automated count 4.08 10*6/uL 4.1- 5.3 L [facility] Hemoglobin [Mass/volume] in Blood 11.5 g/dL 11.5-15.5 [facility] Hematocrit [Volume Fraction] of Blood by Automated count 34.8 % 3 6-45 L [facility] Erythrocyte mean corpuscular volume [Entitic volume] by Auto mated count 85.2 fL 80-96 [facility] Erythrocyte mean corpuscular hemoglobin [Entitic mass] by Automated count 28.2 pg 27-33 [facility] Erythrocyte mean corpuscular hemoglobin concentration [Mass/volume] by Automated count 33.1 g/dL 32.0-36.0 [facility] distribution width [Ratio] by Automated count 15.6 % 11.5-14.5 H [facility] Platelets [#/volume] in Blood by Automated count 175 10*3/uL 150-400 [facility] Differential cell count method - Blood [facility] Neutrophils/100 leukocytes in Blood by Automated count 63 % [facility] Lymphocytes/100 leukocytes in Blood by Automated count 22 % [facility] Monocytes/100 leukocytes in Blood by Automated count 10 % [facility] Eosinophils/100 leukocytes in Blood by Automated count 4 % [facility] Basophils/100 leukocytes in Blood by Automated count 1 % [facility] Neutrophils [#/volume] in Blood by Automated count 4.26 10*3/uL 1.8-7 .0 [facility] Lymphocytes [#/volume] in Blood by Automated count 1.43 10*3/uL 1.2-4 .0 [facility] Monocytes [#/volume] in Blood by Automated count 0.64 10*3/uL 0-0.8 [facility] Eosinophils [#/volume] in Blood by Automated count 0.23 10*3/uL 0-0.5 [facility] Basophils [#/volume] in Blood by Automated count 0.06 10*3/uL 0-0.2 [facility] Nucleated erythrocytes/100 leukocytes [Ratio] in Blood by Automated count 0 /100{WBCs} 0-0 [facility] ID Date Data Source [id number] 09/05/2019 08:38:34 PM EDT [facility] Name Value Range Interpretation Code Description Data Jerica rce(s) Supporting Document(s) Bicarbonate [Moles/volume] in Serum 23 mmol/L 22-29 [facility] Chloride [Moles/volume] in Serum or Plasma 106 mmol/L 98-107 [facility] Creatinine [Mass/volume] in Serum or Plasma 0.82 mg/dL 0.50-0.90 [facility] Glucose [Mass/volume] in Serum or Plasma 88 mg/dL 70-140 [facility] Potassium [Moles/volume] in Serum or Plasma 3.8 mmol/L 3.4-5.1 [facility] Sodium [Moles/volume] in Serum or Plasma 141 mmol/L 136-145 [facility] Urea nitrogen [Mass/volume] in Serum or Plasma 9 mg/dL 6-20 [facility] Anion gap 3 in Serum or Plasma 12 mmol/L 8-15 [facility] Osmolality of Serum or Plasma by calculation 290 mosm/kg 275-300 [facility] Creatinine/Urea nitrogen [Mass Ratio] in Serum or Plasma 11 [facility] Calcium [Mass/volume] in Serum or Plasma 8.7 mg/dL 8.6-10.0 [facility] Glomerular filtration rate/1.73 sq M pre dicted among non-blacks [Volume Rate/Area] in Serum or Plasma by Creatinine-based formula (MDRD) 89 mL/min/1.73m2 >60 [facility] Glomerular filtration rate/1.73 sq M pre dicted among blacks [Volume Rate/Area] in Serum or Plasma by Creatinine-based formula (MDRD) >60 [facility] ID Date Data Source [id number] 09/05/2019 08:44:18 PM EDT [facility] Name Value Range Interpretation Code Description Data Jerica rce(s) Supporting Document(s) Prothrombin time (PT) 12.5-14.9 [facility] CALLED TO KAYLEY GUPTA RN IN ER AT 4 BY 1767 INR in Platelet poor plasma by Coagulation assay [facility] ID Date Data Source [id number] 09/05/2019 08:44:18 PM [facility] Name Value Range Interpretation Code Description Data Jerica rce(s) Supporting Document(s) aPTT in Platelet poor plasma by Coagulation assay 24.0-33. 0 [facility] ID Date Data Source Comprehensive Metabolic Profile (CMP) 08/03/2019 12:00:00 AM EDT W1 ([facility]) Name Value Range Interpretation Code Description Data Jerica rce(s) Supporting Document(s) 16 7-18 BLOOD UREA NITROGEN eCW1 ([facility]) 109 70-100 GLUCOSE, FASTING eCW1 ([facility]) 4.0 3.5-5.1 POTASSIUM SERUM eCW1 ([facility]) 1.01 0.55-1.30 CREATININE FOR GFR eCW1 ([facility]) > 60.0 >58 GLOMERULAR FILTRATION RATE eCW 1 ([facility]) 136 136-145 SODIUM LEVEL eCW1 ([facility]) 9.8 8.5-10.1 CALCIUM LEVEL eCW1 ([facility]) 99 98-107 CHLORIDE LEVEL eCW1 ([facility]) 30 21-32 CARBON DIOXIDE LEVEL eCW1 ([facility]) 20 7-37 AST/SGOT eCW1 ([facility]) 0.4 0.2-1.0 BILIRUBIN,TOTAL eCW1 ([facility]) 50 12-78 ALT/SGPT eCW1 ([facility]) 164 45-117 ALKALINE PHOSPHATASE eCW1 ([facility]) 7.7 6.4-8.2 TOTAL PROTEIN eCW1 ([facility]) 1.08 1.00-1.93 ALBUMIN/GLOBULIN RATIO eCW1 ([facility]) 4.0 3.2-5.2 ALBUMIN eCW1 ([facility]) ID Date Data Source [id number] 05/17/2019 01:12:57 PM [facility] Name Value Range Interpretation Code Description Data Jerica rce(s) Supporting Document(s) Progress Note [facility] YKOLSi0pDvJLWmPa71/XPUdfQDWvt8WoSNduNQo5JJywCJRsJ2SmRSD8nG3bZWJ1LFwXXeElSfJuOcT0 lbm [file] Tk6BSVxqAjWQFyOaXG0DKTb= ID Date Data Source [id number] 05/17/2019 12:59:46 PM [facility] Name Value Range Interpretation Code Description Data Jerica rce(s) Supporting Document(s) Operative Note [facility] CRFILh9vHnGKNtUu14/HXHpfHFWop4DqNKyoNMn7KRykEPOcR3HcOOF5bL8uFGU4UHfBCzJaDvKnDwX1 lbm [file] ICAgICAgICAgICAgICAgICAgICAgICAgICAgICAgICAgICAgICAgICAgICAgICAgICAgICAgICAgICAg LVZoNUVsGNKwKTJyLK6MVACnYQBmECKvHJGfZURdDS AgICAgICAgICAgICAgICAgICAgICAgICAgICAgICAgICAgICAgICAgICAgICAgICAgICAgICAgICAgIC TbALCkIFElOPWxCMKmXYNdBFWzJVOnLU1THNTsLTFxMDOoKZRgSXGwIOFzKINcNXLoTYDjTBWfDGSxIY AgICAgICAgICAgICAgICAgICAgICAgICAgICAgICAg DNMkNQHvAOFsSFIbZHUbDHPgCDAyHDXrSUYgFCTqNQWkVK3UTOFmJCEjACLoLCWvZUPlNSIuPKKjMRXa ICAgICAgICAgICAgICAgICAgICAgICAgICAgICAgICAgICAgICAgICAgICAgICAgICAgICAgICAgICAg AYNqTNRxTKFpYFJxXZJyVV0GWABeMAPyVOBsTSAbGV AgICAgICAgICAgICAgICAgICAgICAgICAgICAgICAgICAgICAgICAgICAgICAgICAgICAgICAgICAgIC MoPMIuQXRdVMRsDLJsETBrSJQmHXWqXVSxSP9ECBSpEWCoVQZtXTTlUINtOIWhNZEuXHVnQMDjNKIcWC AgICAgICAgICAgICAgICAgICAgICAgICAgICAgICAg WUWrWIKhXXLqLFVsXLToEULsKFNcXNWfQYCnYDXdTTXyIXLeSK1VDURxRQBeHFDhXACoOXUjUDCrFSSr ICAgICAgICAgICAgICAgICAgICAgICAgICAgICAgICAgICAgICAgICAgICAgICAgICAgICAgICAgICAg SMFfVKSzFBPxRQCgNRMcNZEkWN2RKPXbYVCbJKKzHS AgICAgICAgICAgICAgICAgICAgICAgICAgICAgICAgICAgICAgICAgICAgICAgICAgICAgICAgICAgIC XsXENcRHRkESWdQALdNLVsTDXvFTCgCTAeYFSgAC5XBRZdFXDzKUHvNZXcICAxXPHjIZZkTVMcYMRdWT AgICAgICAgICAgICAgICAgICAgICAgICAgICAgICAg TWGyKHEwDFEdZWPaPSNvSMUqUPHwUJGpAPToGQKlGOJfTXQpXWNrQY1HYVUbELBcYJPfWSIlIXBkFUKp ICAgICAgICAgICAgICAgICAgICAgICAgICAgICAgICAgICAgICAgICAgICAgICAgICAgICAgICAgICAg YWSlYJYeXWCqHYKfAYCnHGTeSDFjPS8JWU37nJYae8 F8LYHkOZ1emom/Ki4HEHabiqUqbPCpEP6CUgCqAW0mjj0HGcTbAL1fpm8ERJoBMyAvE6M9eWKaQAPdBA JWVtSpL88wCCgcZk15NUfbCAQwWkOsSEn6Gc0QSxQrL3otEKWjKkA4FZOwTeD0WBZeUaLvVTkmGS8Vi2 VudCAyDQo+Ic1LOK4jb9ZaXPurGBXbID0jed1BAKqZ AxFlD0MnreI5ABIwELLmDj4WZTQnZIXsyVPvSIVfLQBFNzRrS2LliY57HFOSXv4+DQplbmRvYmoNCjIw LPPvt5UuRGo5TL4MCOSlAWo5cRMiJ6BvadV1bGLcTT8dwQXoKbeqQJEsxTJDaPyfwbRZiwZbtfoaWUOe WRYyDf0uXS1eRINzIQH5OvIkVERGAD4RZDPlDNFisC AiHFYmRNRUYY7OUYaeWTT1SEZallVqlHNvQBwrYW5VJMRubfLbKDgaOCRRVXx+Oi0ZXW9pz9ZkVBcfGX WkYH2aoj3VMNpCHsNaK5D8wHMaY3O0MEjjTa3FYOTvFLGgWFhqWFJSCHggHY5DBZ9grvQ9VE7FyRUbUX FgMXJmjWTnBAu8D93zpLXeVDkxFN1XQFK+Magdiel+Pg0K CWXkNLGbIKXmNhLrAVIONcNqB1ZoY5RCz8LaT1SvIR16uCagraXgCIzvME1IGJ2cKDOyEGDBXQ5TjUDt tB2ovfXbHTLeCESVYjVaW73wsHIwNOXjZZW6LYKgSj3NMYWkB0KheiVirQfrbbDtJPBjZWLHBZ0WKJbi viOhaFNxnCuaDP93uYwcMH7BZd3SKvJiMK0wfo8EfU JdLa3NISNrOu2RYJPcNOFoJVJkGCQ8IOWeCiXrADpyDCDxPEKzUCA0YMWoQEUuJT0RZtXvRPWjPSIzKc IgTTYsCFQpcz0IBDNjYCIxZqPqJcYkRUWdFOCtSMtbQAMwYOKoSCV0FNBmKPCoEW4JAaNnETMkSGLwJI JuSCCoXWGbjl8JJBOhPDRnYmLdVLRgCDRiXJWrESzp OEFqQEX9ULe6YMZlGHEvDY4AUiQmMPSuWCWvKMPpSZXjUELimf4CVRCaVTIwYjP4VWFbTTXfDKWhJVxp EHMrJYY6UwW1VSEeEYScBP9RMkZxVDWmRSz8PvsqXKRtLCWmib7QTLHuZKOgVEH2CtBoZQRjZMFlAZbo NWEwLCC2Bcc2FLZhBXBtJF1GEvPwGZBrUSd3YHvkJJ HzHNEjyn0NLTIrKKWqFQc3SCWfOFDhQYUvZNqcKABzVPTsOTR1FZYfIJAoJY8XGaDtICVzXVNrLKZqYF TvUUXequ3BQBBcVUCxDCA5OxUmNJEyMLCoTGjfQRZaFHNrZCU4KTXqSHYoCO4AGoEwHHJjXNVoOwmzQO NrUCQone8TIVUzDBCwKiNxFKMnLKMbYRDsWYi3csXb fNVjLYj2VW1OO1SofiWkQjDQEd7Ta743BXFrBYMiXp1MR5nzSo0oJPIgUTUHAn6BIAg6Smu0SVBwNQs3 ZyI7PHL9DCFiQYrtP7J0L1MrEyV7ZTW+WBchGUY4BoZ7FqnpLWjzKKe8CNS2V7A0KsgoBjV9TBH3CD2y XSANCj4+PKusdGVlcNmqYWNJRfRrBHzhRFxtMTTDFm4L ID Date Data Source [id number] 05/17/2019 09:53:47 AM [facility] NM INJECTION RADIOACTIVE TRACER - SENTIN AL [...] rce(s) Supporting Document(s) ID Date Data Source [id number] 05/19/2019 04:23:00 PM [facility] Surgical Pathology Report See Addendum B elowName: MITRA TAYLOR MMRN: [id number] Number: [id number] Date: 05/17/2019 00:00Received Date: 05/17/2019 10:45Physician(s): SIERRA MINOR,SIERRA Elizabeth(s) ReceivedA: Breast lumpectomy, rightB: [place] lymph node, right axillaryClinical HistoryMalignant neoplasm of [...] otherwise specified) Histologic Grade (Mari Histologic Score): [place] Score Glandular (Acinar) / Tubular Differentiation: Score [...] of Lymph Nodes Examined: 6 Number of [place] Nodes Examined: 6Pathologic Stage Classification (pTNM, AJCC 8th Edition) Primary Tumor (pT): pT2 Regional Lymph Nodes (pN) Category (pN): [id number] Studies Estrogen Receptor (ER): Positive (percentage) - 30% Progesterone Receptor (PgR): Positive (percentage) - 30% HER2 (by immunohistochemistry): Negative (Score 1+) Testing Performed on [facility] April 2018 Annual Release Rebecca Alston MD ; Resident PathologistElectronically Signed By Shey Washington M.D., Attending Pathologist05/19/2019 16:23:03Processed at [facility] Pathology Laboratory at [facility], [address] [place] [address]. The attending pathologist named aboveattests that he/she [...] adipose tissue and minimalwhite-pink, dense fibrous tissue. School Bus Attendant sections to include theentire lesion are submitted sequentially from lateral to medial asfollows:A1,2 -entire cruciate lateral margin with lesionA3 -manufacturing sales representative level 1 with lesionA4 -manufacturing sales representative level 2 with lesion A5-7 -manufacturing sales representative level 3 with lesion and biopsy marker site in A5A8,9 -manufacturing sales representative level 4 with jjugioM18,11 -entire level 5 with ljbtlfF90,13 -manufacturing sales representative level 6 with nrxwkiI86-22 -entire level 7 with lesion A17 -manufacturing sales representative level 8 with jigzhmY79 -manufacturing sales representative cruciate medial margin Part B is [...] developed and their performance characteristics determined by [facility] Pathology department. They have not been cleared or approved by the USFood and Drug Administration. The FDA has determined that such clearanceor approval is not necessary. Name Value Range Interpretation Code Description Data Jerica rce(s) Supporting Document(s) ID Date Data Source [id number] 05/13/2019 08:32:00 AM EST [facility] Surgical Pathology ReportName: Carol TAYLOR MMRN: [id number] Number: [id number] Date: 05/12/2019 00:00Received Date: 05/12/2019 09:40Physician(s): SIERRA MINOR MARY ELLENSpecimen(s) ReceivedA: Slides received for consultationClinical HistorySecond opinion.DiagnosisBREAST, RIGHT, NEEDLE BIOPSY: INVASIVE DUCTAL CARCINOMA..GRADE: 3. VASCULAR INVASION: Not identified. DCIS: Absent. ESTROGEN RECEPTORS: Positive (weak to moderate, 30%) per CO20-65.PROGESTERONE RECEPTORS: Positive (weak to moderate, 30%) per CO20-65.HER2: Negative (1+) per CO20-65.Reported at [facility], [facility], [address] [place] [address]. Electronically Signed By Shey Washington M.D., Attending Pathologist05/13/2019 08:32:13 Unless 'gross-only' is specified, the final diagnosis is based on amicroscopic examination of manufacturing sales representative sections of tissue.Gross DescriptionReceived from [facility] in [place], [place] are 2 H and Estained slides labeled [id number] with the corresponding pathology report./jrsThis report may include one or more immunohistochemical stain results thatuse analyte specific reagents. All positive and negative controls havebeen reviewed by the attending pathologist and are satisfactory. The testswere developed and their performance characteristics determined by [facility] Pathology department. They have not been cleared or approved by the USFood and Drug Administration. The FDA has determined that such clearanceor approval is not necessary. Name Value Range Interpretation Code Description Data Jerica rce(s) Supporting Document(s) ID Date Data Source [id number] 05/10/2019 10:05:53 AM [facility] Name Value Range Interpretation Code Description Data Jerica rce(s) Supporting Document(s) Progress Note [facility] NMKIGc4rFmCCXoEr78/RAOudVXBvl0DqLXmeLFr7PXlfVSVjA1ObZCV0iY7aGER1LOnOZnCxApLfMzI9 lbm [file] AgICAgICAgICAgICAgICAgICAgICAgICAgICAgICAgICAgICAgICAgICAgICAgICANCiAgICAgICAgIC AgICAgICAgICAgICAgICAgICAgICAgICAgICAgICAg ICAgICAgICAgICAgICAgICAgICAgICAgICAgICAgICAgICAgICAgICAgICAgICAgICAgICAgICAgICAN CiAgICAgICAgICAgICAgICAgICAgICAgICAgICAgICAgICAgICAgICAgICAgICAgICAgICAgICAgICAg ICAgICAgICAgICAgICAgICAgICAgICAgICAgICAgIC AgICAgICAgICANCiAgICAgICAgICAgICAgICAgICAgICAgICAgICAgICAgICAgICAgICAgICAgICAgIC AgICAgICAgICAgICAgICAgICAgICAgICAgICAgICAgICAgICAgICAgICAgICAgICAgICANCiAgICAgIC AgICAgICAgICAgICAgICAgICAgICAgICAgICAgICAg ICAgICAgICAgICAgICAgICAgICAgICAgICAgICAgICAgICAgICAgICAgICAgICAgICAgICAgICAgICAg ICANCiAgICAgICAgICAgICAgICAgICAgICAgICAgICAgICAgICAgICAgICAgICAgICAgICAgICAgICAg ICAgICAgICAgICAgICAgICAgICAgICAgICAgICAgIC AgICAgICAgICAgICANCiAgICAgICAgICAgICAgICAgICAgICAgICAgICAgICAgICAgICAgICAgICAgIC AgICAgICAgICAgICAgICAgICAgICAgICAgICAgICAgICAgICAgICAgICAgICAgICAgICAgICANCiAgIC AgICAgICAgICAgICAgICAgICAgICAgICAgICAgICAg ICAgICAgICAgICAgICAgICAgICAgICAgICAgICAgICAgICAgICAgICAgICAgICAgICAgICAgICAgICAg ICAgICANCiAgICAgICAgICAgICAgICAgICAgICAgICAgICAgICAgICAgICAgICAgICAgICAgICAgICAg ICAgICAgICAgICAgICAgICAgICAgICAgICAgICAgIC AgICAgICAgICAgICAgICANCiAgICAgICAgICAgICAgICAgICAgICAgICAgICAgICAgICAgICAgICAgIC AgICAgICAgICAgICAgICAgICAgICAgICAgICAgICAgICAgICAgICAgICAgICAgICAgICAgICAgICANCj w/gHDfI0erdMKxrjJ3R4lgYs7WGa7JZJ8ss7IkLWTh KYlniwZiMdiGOgBbRXRvIkgVMmb9SIswIC3IlKTzA1RlK3KiKPayJK4ITIUvCPHslUVyJYMgHWSuMsU8 RZPhBIqeCB2EvBStYBjgMDGjFLWaLbInEKDxGXXeXWSnZTOrTWPLLCKpJTIkKaQbOKKfEREpIEblYDWH TXM6XSTqUkZxVOdaNF8Wk4RsiST2YAl+Lz0ZEJ9ms3 DoLLp7KbYiPW0nxr8OUBtZXtJbK9PupxU8BXSnWKDwMf0GFAFlSCSxtAI7ZrNmJIKYYuXdA3OmqG24KQ ENCj4+HYlzqfWhZsfYCjVwOHLvh2UsQAo7WR8JNNApJVi8zBGhQWQpJ3Vos5WiDg22TOQzWdibHAOgfX MBcToyucVKlcFfacprNPEmCSPyCp2aVl4gUWSkYYBg YbCyKDIBUG2KNRPjERAugZGtOURlQYTSGR7DKKgbYLS5UECndbHtvIYpNArmPE3AFDAhheUbCKUxSZAG DQo+Dm2HZU6ok2RiVSn5MEZjYA7jjo9ZOAcJSqTkZ4M2gPRlX0S0CPirBm9TRWGxDULaYPJmABLTSPnh RK8CNB0fkcT1NC4KyNDiPWYqIZDljNAqTSc6J75mzY HoXBpmUA1TUIR+Magdiel+Wy9HPXElYOGqJFMvUnJkHEVDQrYaZ6ZpL9FMj4CgO2EoPN26eGwfamHiYTjkXS 9DEU5xLJWdNQYLRF2JpSPfyP4ydxO1LwTuJARZIpOhZ98ccHSfWCSjNIBsPKCwDr8VGKUgI2OduqTlmS ufzcRlKZFjDKOIOY8UVLxfylYncFTmjIooNM70yWbn ZS4HSs9ONdViJB3vhf8IbBArAp6ZRBS8TH5ZABGhBDIoBGNnRSV7YZYpQcGkNVhyMSXhQBIzCOT7PMLy PGYdQR6DNrOzJPRlTLT9LMOsSCHuLPZnxb7HRXCpYTW3ZpG8WTGaZBNpBKLnKPcxHBIcTTBkFBY9BADe JVKpAW4YRzBlAIVxAZMnRjTnEJEvSACxya2IZQVwTG TeECH6AGZwWHYaVUGhHAvlWYKrAGO5QPRnCJFmMDEjQW5EEwEkBQBpUFgkKiRdABZrLINbne5ZTPJqVZ UwJAP8PnZuNPKjVPZaBOdtPDRuILIqKyT9EYWaOXWsNC5XEgDlUZWfZVN5BDIaNYNuAHNrqj7CXWKeEK ThNkh8LPEwGZQcABDxGCybNMMyXHS8YwC2PEHgWPCh RV0FXvLtONYhSOR9XhNhEQAiDEPskn5OMHLrNUXdNRN3SMNlSTWiULDjYDenVWMvBAM9HwLwLTLgJZXf MH8MRmSaYVRaZaK6QwYdLDHpXARfrq0DMHJhKQNtHhu0QsFrIJHeUJJaUOspGSWiAXJ9Lhm8ONTcASWl VH6ZPoSkMLAjBeQ5HJZxOOQlJGGzoj6UISIkPRKvKm W4MGOhVGWdSGPfDYgpBAVvERX8ZaZ0RLTeICOtDY5YMlInOYHiTfD3FDQiJDSaCDSznl7JWJZxMZMiHg w5VFDoODRzWAQiVEvgROPnNHV5IQFdJYWnYIYkXN8EBlYlBFEqTrvgOOzfHBSkUUJfin0TWROvYHJrFL kgTVFwWGGtKDTlQHxeELNeMRFhZVN9EBTwWFOsUJ5L XePcOCBcXRYkBQJlAKIvYWSycn9KSBTfUOE3KQCzKkJpAHEvYDQdDYmuUTVpQPSnOqR9FLJpRQJvPZ1T VzMjRPXpDKB0XBUtIHNqKBTwgx7FWLZdJNN6IWi6MxEkDFYfTCUtZKmqAHGdLDTcTKJkNFXoJUWqXO8D InSzKNOwQVY9YDEsZNEjMIQeqh4HZJDjQIU0VpF5NN LhEOYkWQJwXMhsYILkIQBtGgdbOJScFDAcDH3CSsJwTUBwMXUiZJLsELKnPMVqbl7FEZHgOYR2OBPsWi EwZYTnDFOmUFbrPLWiFMW3QEzdVNGjRAOhCJ8DIzUeWKUxWXWbVcvmXXOoYIBhnv3UDIPqHTK9TdSuKL BxJIZjJFOeGPtkFKChJTU4PTy3DKGaDQYdZR4QYlWu HTVwPVS0UuRkCHDbOYIfla0AcEEpbXqfho0RAPzXTd4TrCftLIE4TVfuVp9ngFV4YWEtNELZUp3XfoKc BYUzXZNTPScpAZYtZLGaBAQ7SeCyQNQqURY9KBInBWpxHWE3GQJcQsY1TxF8RdE0KQHhGdDsRcEaUxO5 YewgAVXaDAJ1ZCZ9DIAlByaoSPN+UX2jLKo+Wu7Ay7XczhZ1nrHoYXo6Asc6EH3FXDEYG0ZXGj== ID Date Data Source [id number] 04/13/2019 12:55:00 PM [facility] Surgical Pathology ReportName: Carol TAYLOR MMRN: [id number] Number: [id number] Date: 04/12/2019 00:00Received Date: 04/12/2019 10:20Physician(s): JOEY SCOTT YILIN MDSpecimen(s) ReceivedA: Material received for consultationClinical HistoryRight breast mass. Outside report ([id number]): Infiltrating ductalcarcinoma, grade 3 (of 3). Please do ER, RI, Her2 by IHC; 2+ reflex toFISH.DiagnosisIMMUNOHISTOCHEMISTRY, RIGHT BREAST, CORE BIOPSY (OUTSIDE CASE [id number];04/06/2019): ESTROGEN RECEPTORS: Positive (Weak to moderate staining in 30% oftumor cells). PROGESTERONE RECEPTORS: Positive (Weak to moderate staining in 30%of tumor cells). HER2: Negative (1+). Electronically Signed By Cassius Santiago M.D., Attending Pathologist04/13/2019 12:55:08Unless 'gross-only' is specified, the final diagnosis is based on amicroscopic examination of manufacturing sales representative sections of tissue.Gross DescriptionReceived from [facility] in [place], [place], is one paraffinblock labeled [id number], with the corresponding pathology report./jrsThis report may include one or more immunohistochemical stain results thatuse analyte specific reagents. All positive and negative controls havebeen reviewed by the attending pathologist and are satisfactory. The testswere developed and their performance characteristics determined by [facility] Pathology department. They have not been [...] smoked comp leted Unknown if ever smoked [facility] ([facility]) Smoking 12/29/2019 12:00:00 AM EDT Unknown if ever smoked comp leted Unknown if ever smoked [facility] ([facility]) Smoking 12/26/2019 12:00:00 AM EDT Former Smoker completed Former Smoker eCW1 ([facility]) Smoking 12/26/2019 12:00:00 AM EDT Former Smoker completed Former Smoker eCW1 ([facility]) Smoking 12/26/2019 12:00:00 AM EDT Former Smoker completed Former Smoker eCW1 ([facility]) Smoking 12/26/2019 12:00:00 AM EDT Former Smoker completed Former Smoker eCW1 ([facility]) Smoking 12/26/2019 12:00:00 AM EDT Former Smoker completed Former Smoker eCW1 ([facility]) Smoking 12/26/2019 12:00:00 AM EDT Former Smoker completed Former Smoker eCW1 ([facility]) Smoking 12/26/2019 12:00:00 AM EDT Former Smoker completed Former Smoker eCW1 ([facility]) Smoking 12/26/2019 12:00:00 AM EDT Former Smoker completed Former Smoker eCW1 ([facility]) Smoking 12/26/2019 12:00:00 AM EDT Former Smoker completed Former Smoker [email or web address] ([facility]) Smoking 12/26/2019 12:00:00 AM EDT Former Smoker completed Former Smoker [email or web address] ([facility]) Alcohol intake 12/22/2019 12:00:00 AM EDT Ex-drinker (finding) comp leted Ex- drinker (finding) [facility] Tobacco use and exposure 12/22/2019 12:00:00 AM EDT Former user co mpleted Former user [facility] Smoking 12/22/2019 12:00:00 AM EDT Former smoker completed Former smoker [facility] Smoking 12/20/2019 12:00:00 AM EDT Unknown if ever smoked comp leted Unknown if ever smoked [facility] ([facility]) Smoking 11/25/2019 12:00:00 AM EDT Unknown if ever smoked comp leted Unknown if ever smoked [facility] ([facility]) Alcohol intake 10/21/2019 12:00:00 AM EDT Ex-drinker (finding) comp leted Ex- drinker (finding) [facility] Smoking 09/22/2019 12:00:00 AM EDT Former Smoker completed Former Smoker [email or web address] ([facility]) Smoking 09/22/2019 12:00:00 AM EDT Former Smoker completed Former Smoker [email or web address] ([facility]) Smoking 09/20/2019 12:00:00 AM EDT Unknown if ever smoked comp leted Unknown if ever smoked [facility] ([facility]) Alcohol intake 09/13/2019 12:00:00 AM EDT Ex-drinker (finding) comp leted Ex- drinker (finding) [facility] Smoking 09/13/2019 12:00:00 AM EDT Former smoker completed Former smoker [facility] Smoking 09/08/2019 12:00:00 AM EDT Former Smoker completed Former Smoker [email or web address] ([facility]) Alcohol intake 09/06/2019 12:00:00 AM EDT Ex-drinker (finding) comp leted Ex- drinker (finding) [facility] Smoking 09/06/2019 12:00:00 AM EDT Former smoker completed Former smoker [facility] Smoking 09/02/2019 12:00:00 AM EDT Unknown if ever smoked comp leted Unknown if ever smoked [facility] ([facility]) Smoking 08/25/2019 12:00:00 AM EDT Unknown if ever smoked comp leted Unknown if ever smoked [facility] ([facility]) Smoking 08/18/2019 12:00:00 AM EDT Unknown if ever smoked comp leted Unknown if ever smoked [facility] ([facility]) Smoking 08/04/2019 12:00:00 AM EDT Unknown if ever smoked comp leted Unknown if ever smoked [facility] ([facility]) Alcohol intake 08/02/2019 12:00:00 AM EDT Current drinker of al cohol (finding) completed Current drinker of alcohol (finding) [facility] Smoking 08/02/2019 12:00:00 AM EDT Former smoker completed Former smoker [facility] Smoking 07/28/2019 12:00:00 AM EDT Unknown if ever smoked comp leted Unknown if ever smoked [facility] ([facility]) Smoking 07/06/2019 12:00:00 AM EDT Unknown if ever smoked comp leted Unknown if ever smoked [facility] ([facility]) Smoking 06/23/2019 12:00:00 AM EDT Unknown if ever smoked comp leted Unknown if ever smoked [facility] ([facility]) Smoking 06/17/2019 12:00:00 AM EDT Unknown if ever smoked comp leted Unknown if ever smoked [facility] ([facility]) Smoking 06/02/2019 12:00:00 AM EDT Unknown if ever smoked comp leted Unknown if ever smoked [facility] ([facility]) Smoking 05/25/2019 12:00:00 AM EST Unknown if ever smoked comp leted Unknown if ever smoked [facility] ([facility]) Alcohol intake 05/17/2019 12:00:00 AM EST Current drinker of al cohol (finding) completed Current drinker of alcohol (finding) [facility] Smoking 05/17/2019 12:00:00 AM EST Former smoker completed Former smoker [facility] Alcohol intake 05/10/2019 12:00:00 AM EST Current drinker of al cohol (finding) completed Current drinker of alcohol (finding) [facility] Smoking 05/10/2019 12:00:00 AM EST Former smoker completed Former smoker [facility] Alcohol intake 05/09/2019 12:00:00 AM EST Current drinker of al cohol (finding) completed Current drinker of alcohol (finding) [facility] Smoking 05/09/2019 12:00:00 AM EST Former smoker completed Former smoker [facility] Smoking 05/06/2019 12:00:00 AM EST Unknown if ever smoked comp leted Unknown if ever smoked [facility] ([facility]) Smoking 04/21/2019 12:00:00 AM EST Unknown if ever smoked comp leted Unknown if ever smoked [facility] ([facility]) Smoking 04/20/2019 12:00:00 AM EST Unknown if ever smoked comp leted Unknown if ever smoked [facility] ([facility]) Smoking 04/01/2019 12:00:00 AM EST Unknown if ever smoked comp leted Unknown if ever smoked [facility] ([facility]) Smoking 03/31/2019 12:00:00 AM EST Unknown if ever smoked comp leted Unknown if ever smoked [facility] ([facility]) Smoking 03/22/2019 12:00:00 AM EST Unknown if ever smoked comp leted Unknown if ever smoked [facility] ([facility]) Smoking 02/22/2019 12:00:00 AM EST Unknown if ever smoked comp leted Unknown if ever smoked [facility] ([facility]) Vital Signs ID Date Data Source UNK Name Value Range Interpretation Code Description Data Source(s) Diastolic blood pressure 58 mm[Hg] 58 mm[Hg] eCW1 ([facility]) Systolic blood pressure 122 mm[Hg] 122 mm[Hg] e CW1 ([facility]) Body temperature 97.1 [degF] 97.1 [degF] eCW1 ( [facility]) Respiratory rate 18 /min 18 /min eCW1 ([facility]) Heart rate 98 /min 98 /min eCW1 ([facility]) Body mass index (BMI) [Ratio] 38.94 kg/m2 38.94 kg/m2 W1 ([facility]) Body height 65 [in_i] 65 [in_i] eCW1 ([facility]) Body weight 234 [lb_av] 234 [lb_av] eCW1 ([facility]) Diastolic blood pressure 0 mm[Hg] Normal (applies to non-numeric results) 0 mm[Hg] [facility] ([facility]) Systolic blood pressure 0 mm[Hg] Normal (applies t o non-numeric results) 0 mm[Hg] [facility] ([facility]) Body mass index (BMI) [Ratio] 0.00 kg/m2 No rmal (applies to non-numeric results) 0.00 kg/m2 [facility] ([facility]) Body weight Measured 0.00 lbs Normal (applies to n on-numeric results) 0.00 lbs [facility] ([facility]) Body height 0.00 in Normal (applies to non-numeric resu lts) 0.00 in [facility] ([facility]) Respiratory rate 20 /min 20 /min MEDENT ( [facility], ) Heart rate 80 /min 80 /min MEDENT ([facility], ) Diastolic blood pressure 84 mm[Hg] 84 mm[Hg] MED[facility] ([facility], ) Systolic blood pressure 124 mm[Hg] 124 mm[Hg] M EDENT ([facility]) [place] body weight 125 [lb_av] 125 [lb_av] MEDEN T ([facility]) Body mass index (BMI) [Ratio] 39.1 kg/m2 39.1 k g/m2 MED[facility] ([facility]) Body weight 235.00 [lb_av] 235.00 [lb_av] MEDEN T ([facility], ) Body height 65 [in_i] 65 [in_i] MEDENT ([facility], ) 5'5" Respiratory rate 16 /min 16 /min MEDENT ( [facility], ) Heart rate 80 /min 80 /min MEDENT ([facility], ) Diastolic blood pressure 84 mm[Hg] 84 mm[Hg] MEDENT ([facility], ) Systolic blood pressure 124 mm[Hg] 124 mm[Hg] M EDENT ([facility], ) Diastolic blood pressure 80 mm[Hg] 80 mm[Hg] eCW1 ([facility]) Systolic blood pressure 124 mm[Hg] 124 mm[Hg] e CW1 ([facility]) Body temperature 97.0 [degF] 97.0 [degF] eCW1 ( [facility]) Respiratory rate 18 /min 18 /min eCW1 ([facility]) Heart rate 105 /min 105 /min eCW1 ([facility]) Body mass index (BMI) [Ratio] 42.10 kg/m2 42.10 kg/m2 W1 ([facility]) Body height 65 [in_i] 65 [in_i] eCW1 ([facility]) Body weight 253.0 [lb_av] 253.0 [lb_av] eCW1 ([facility]) Diastolic blood pressure 0 mm[Hg] Normal (applies to non-numeric results) 0 mm[Hg] [facility] ([facility]) Systolic blood pressure 0 mm[Hg] Normal (applies t o non-numeric results) 0 mm[Hg] [facility] ([facility]) Body mass index (BMI) [Ratio] 0.00 kg/m2 No rmal (applies to non-numeric results) 0.00 kg/m2 [facility] ([facility]) Body weight Measured 0.00 lbs Normal (applies to n on-numeric results) 0.00 lbs [facility] ([facility]) Body height 0.00 in Normal (applies to non-numeric resu lts) 0.00 in [facility] ([facility]) Diastolic blood pressure 80 mm[Hg] 80 mm[Hg] eCW1 ([facility]) Systolic blood pressure 138 mm[Hg] 138 mm[Hg] e CW1 ([facility]) Body temperature 95.6 [degF] 95.6 [degF] eCW1 ( [facility]) Respiratory rate 20 /min 20 /min W1 ([facility]) Heart rate 136 /min 136 /min W1 ([facility]) Body mass index (BMI) [Ratio] 40.13 kg/m2 40.13 kg/m2 W1 ([facility]) Body height 65 [in_us] 65 [in_us] eCW1 ([facility]) Body weight Measured 241.2 [lb_av] 241.2 [lb_av ] eCW1 ([facility]) Diastolic blood pressure 0 mm[Hg] Normal (applies to non-numeric results) 0 mm[Hg] [facility] ([facility]) Systolic blood pressure 0 mm[Hg] Normal (applies t o non-numeric results) 0 mm[Hg] [facility]) Body mass index (BMI) [Ratio] 0.00 kg/m2 No rmal (applies to non-numeric results) 0.00 kg/m2 [facility] ([facility]) Body weight Measured 0.00 lbs Normal (applies to n on-numeric results) 0.00 lbs [facility] ([facility]) Body height 0.00 in Normal (applies to non-numeric resu lts) 0.00 in [facility] ([facility]) Body mass index (BMI) [Ratio] 41.4 kg/m2 41.4 k g/m2 MEDENT ([facility]) Body height 65 [in_i] 65 [in_i] MEDENT ([facility]) 5'5" Body weight 249.00 [lb_av] 249.00 [lb_av] MEDEN T ([facility]) Body temperature 98.5 [degF] 98.5 [degF] MEDENT ([facility]) Oxygen saturation in Arterial blood by Pulse oximetry 99 % 99 % [facility] ([facility]) Respiratory rate 16 /min 16 /min MEDENT ( [facility]) Heart rate 99 /min 99 /min MED[facility] ([facility]) Diastolic blood pressure 72 mm[Hg] 72 mm[Hg] [facility] ([facility]) Systolic blood pressure 140 mm[Hg] 140 mm[Hg] M EDENT ([facility]) Diastolic blood pressure 80 mm[Hg] 80 mm[Hg] eCW1 ([facility]) Systolic blood pressure 134 mm[Hg] 134 mm[Hg] e CW1 ([facility]) Body temperature 98.1 [degF] 98.1 [degF] eCW1 ( [facility]) Respiratory rate 18 /min 18 /min eCW1 ([facility]) Heart rate 97 /min 97 /min eCW1 ([facility]) Body mass index (BMI) [Ratio] 40.93 kg/m2 40.93 kg/m2 eCW1 ([facility]) Body height 65 [in_us] 65 [in_us] eCW1 ([facility]) Body weight Measured 246 [lb_av] 246 [lb_av] eC W1 ([facility]) Diastolic blood pressure 0 mm[Hg] Normal (applies to non-numeric results) 0 mm[Hg] [facility] ([facility]) Systolic blood pressure 0 mm[Hg] Normal (applies t o non-numeric results) 0 mm[Hg] [facility] ([facility]) Body mass index (BMI) [Ratio] 0.00 kg/m2 No rmal (applies to non-numeric results) 0.00 kg/m2 [facility] ([facility]) Body weight Measured 0.00 lbs Normal (applies to n on-numeric results) 0.00 lbs [facility] ([facility]) Body height 0.00 in Normal (applies to non-numeric resu lts) 0.00 in [facility] ([facility]) Diastolic blood pressure 84 mm[Hg] 84 mm[Hg] eCW1 ([facility]) Systolic blood pressure 122 mm[Hg] 122 mm[Hg] e CW1 ([facility]) Body temperature 98.3 [degF] 98.3 [degF] eCW1 ( [facility]) Respiratory rate 18 /min 18 /min eCW1 ([facility]) Heart rate 103 /min 103 /min eCW1 ([facility]) Body mass index (BMI) [Ratio] 40.77 kg/m2 40.77 kg/m2 eCW1 ([facility]) Body height 65 [in_us] 65 [in_us] eCW1 ([facility]) Body weight Measured 245 [lb_av] 245 [lb_av] eC W1 ([facility]) Diastolic blood pressure 78 mm[Hg] 78 mm[Hg] eCW1 ([facility]) Systolic blood pressure 118 mm[Hg] 118 mm[Hg] e CW1 ([facility]) Body temperature 97.4 [degF] 97.4 [degF] eCW1 ( [facility]) Respiratory rate 18 /min 18 /min eCW1 ([facility]) Heart rate 113 /min 113 /min eCW1 ([facility]) Body mass index (BMI) [Ratio] 41.36 kg/m2 41.36 kg/m2 eCW1 ([facility]) Body height 65 [in_us] 65 [in_us] eCW1 ([facility]) Body weight Measured 248.6 [lb_av] 248.6 [lb_av ] eCW1 ([facility]) Respiratory rate 16 /min 16 /min MEDENT ( [facility], ) Heart rate 88 /min 88 /min MEDENT ([facility], ) Diastolic blood pressure 80 mm[Hg] 80 mm[Hg] [facility] ([facility], ) Systolic blood pressure 140 mm[Hg] 140 mm[Hg] M EDENT ([facility], ) Diastolic blood pressure 74 mm[Hg] 74 mm[Hg] eCW1 ([facility]) Systolic blood pressure 127 mm[Hg] 127 mm[Hg] e CW1 ([facility]) Body temperature 97.8 [degF] 97.8 [degF] eCW1 ( [facility]) Respiratory rate 18 /min 18 /min eCW1 ([facility]) Heart rate 106 /min 106 /min eCW1 ([facility]) Body mass index (BMI) [Ratio] 41.6 kg/m2 41.6 k g/m2 eCW1 ([facility]) Body height 65 [in_us] 65 [in_us] eCW1 ([facility]) Body weight Measured 250 [lb_av] 250 [lb_av] eC W1 ([facility]) Diastolic blood pressure 0 mm[Hg] Normal (applies to non-numeric results) 0 mm[Hg] [facility] ([facility]) Systolic blood pressure 0 mm[Hg] Normal (applies t o non-numeric results) 0 mm[Hg] [facility] ([facility]) Body mass index (BMI) [Ratio] 0.00 kg/m2 No rmal (applies to non-numeric results) 0.00 kg/m2 [facility] ([facility]) Body weight Measured 0.00 lbs Normal (applies to n on-numeric results) 0.00 lbs [facility] ([facility]) Body height 0.00 in Normal (applies to non-numeric resu lts) 0.00 in [facility] ([facility]) Diastolic blood pressure 80 mm[Hg] 80 mm[Hg] eCW1 ([facility]) Systolic blood pressure 140 mm[Hg] 140 mm[Hg] e CW1 ([facility]) Body temperature 99.0 [degF] 99.0 [degF] eCW1 ( [facility]) Respiratory rate 18 /min 18 /min eCW1 ([facility]) Heart rate 102 /min 102 /min eCW1 ([facility]) Body mass index (BMI) [Ratio] 41.73 kg/m2 41.73 kg/m2 eCW1 ([facility]) Body height 65 [in_us] 65 [in_us] eCW1 ([facility]) Body weight Measured 250.8 [lb_av] 250.8 [lb_av ] eCW1 ([facility]) Diastolic blood pressure 84 mm[Hg] 84 mm[Hg] eCW1 ([facility]) Systolic blood pressure 136 mm[Hg] 136 mm[Hg] e CW1 ([facility]) Body temperature 98.0 [degF] 98.0 [degF] eCW1 ( [facility]) Respiratory rate 18 /min 18 /min eCW1 ([facility]) Heart rate 73 /min 73 /min eCW1 ([facility]) Body mass index (BMI) [Ratio] 41.1 kg/m2 41.1 k g/m2 eCW1 ([facility]) Body height 65 [in_us] 65 [in_us] eCW1 ([facility]) Body weight Measured 247 [lb_av] 247 [lb_av] eC W1 ([facility]) Diastolic blood pressure 80 mm[Hg] 80 mm[Hg] eCW1 ([facility]) Systolic blood pressure 124 mm[Hg] 124 mm[Hg] e CW1 ([facility]) Body temperature 97.4 [degF] 97.4 [degF] eCW1 ( [facility]) Respiratory rate 18 /min 18 /min eCW1 ([facility]) Heart rate 125 /min 125 /min eCW1 ([facility]) Body mass index (BMI) [Ratio] 40.73 kg/m2 40.73 kg/m2 eCW1 ([facility]) Body height 65 [in_us] 65 [in_us] eCW1 ([facility]) Body weight Measured 244.8 [lb_av] 244.8 [lb_av ] W1 ([facility]) Diastolic blood pressure 0 mm[Hg] Normal (applies to non-numeric results) 0 mm[Hg] [facility] ([facility]) Systolic blood pressure 0 mm[Hg] Normal (applies t o non-numeric results) 0 mm[Hg] [facility] ([facility]) Body mass index (BMI) [Ratio] 0.00 kg/m2 No rmal (applies to non-numeric results) 0.00 kg/m2 [facility] ([facility]) Body weight Measured 0.00 lbs Normal (applies to n on-numeric results) 0.00 lbs [facility] ([facility]) Body height 0.00 in Normal (applies to non-numeric resu lts) 0.00 in [facility] ([facility]) Diastolic blood pressure 2 mm[Hg] 2 mm[Hg] eCW1 ([facility]) Systolic blood pressure 158 mm[Hg] 158 mm[Hg] e CW1 ([facility]) Body temperature 98.1 [degF] 98.1 [degF] eCW1 ( [facility]) Respiratory rate 18 /min 18 /min eCW1 ([facility]) Heart rate 110 /min 110 /min eCW1 ([facility]) Body mass index (BMI) [Ratio] 40.43 kg/m2 40.43 kg/m2 eCW1 ([facility]) Body height 65 [in_us] 65 [in_us] eCW1 ([facility]) Body weight Measured 243 [lb_av] 243 [lb_av] eC W1 ([facility]) Diastolic blood pressure 82 mm[Hg] 82 mm[Hg] eCW1 ([facility]) Systolic blood pressure 140 mm[Hg] 140 mm[Hg] e CW1 ([facility]) Body temperature 97.8 [degF] 97.8 [degF] eCW1 ( [facility]) Respiratory rate 18 /min 18 /min eCW1 ([facility]) Heart rate 120 /min 120 /min eCW1 ([facility]) Body mass index (BMI) [Ratio] 40.43 kg/m2 40.43 kg/m2 eCW1 ([facility]) Body height 65 [in_us] 65 [in_us] eCW1 ([facility]) Body weight Measured 243 [lb_av] 243 [lb_av] eC W1 ([facility]) Body mass index (BMI) [Ratio] 41.4 kg/m2 41.4 k g/m2 MEDENT ([facility]) Body height 65 [in_i] 65 [in_i] MEDENT ([facility]) 5'5" Body weight 249.00 [lb_av] 249.00 [lb_av] MEDEN T ([facility]) Body temperature 98.0 [degF] 98.0 [degF] [facility] ([facility]) Oxygen saturation in Arterial blood by Pulse oximetry 99 % 99 % [facility] ([facility]) Respiratory rate 20 /min 20 /min MED[facility] ( [facility]) Heart rate 96 /min 96 /min MEDENT ([facility]) Diastolic blood pressure 70 mm[Hg] 70 mm[Hg] MED[facility] ([facility]) Systolic blood pressure 120 mm[Hg] 120 mm[Hg] M EDENT ([facility]) Diastolic blood pressure 0 mm[Hg] Normal (applies to non-numeric results) 0 mm[Hg] [facility] ([facility]) Systolic blood pressure 0 mm[Hg] Normal (applies t o non-numeric results) 0 mm[Hg] [facility] ([facility]) Body mass index (BMI) [Ratio] 0.00 kg/m2 No rmal (applies to non-numeric results) 0.00 kg/m2 [facility] ([facility]) Body weight Measured 0.00 lbs Normal (applies to n on-numeric results) 0.00 lbs [facility] ([facility]) Body height 0.00 in Normal (applies to non-numeric resu lts) 0.00 in [facility] ([facility]) Diastolic blood pressure 78 mm[Hg] 78 mm[Hg] eCW1 ([facility]) Systolic blood pressure 126 mm[Hg] 126 mm[Hg] e CW1 ([facility]) Body temperature 97.3 [degF] 97.3 [degF] eCW1 ( [facility]) Respiratory rate 18 /min 18 /min eCW1 ([facility]) Heart rate 127 /min 127 /min eCW1 ([facility]) Body mass index (BMI) [Ratio] 42.23 kg/m2 42.23 kg/m2 eCW1 ([facility]) Body height 65 [in_us] 65 [in_us] eCW1 ([facility]) Body weight Measured 253.8 [lb_av] 253.8 [lb_av ] eCW1 ([facility]) Respiratory rate 16 /min 16 /min MEDENT ( [facility] ) Heart rate 92 /min 92 /min MED[facility] ([facility], ) Diastolic blood pressure 100 mm[Hg] 100 mm[Hg] MED[facility] ([facility], ) Systolic blood pressure 140 mm[Hg] 140 mm[Hg] M EDENT ([facility], ) Diastolic blood pressure 100 mm[Hg] 100 mm[Hg] MED[facility] ([facility], ) Systolic blood pressure 138 mm[Hg] 138 mm[Hg] M EDENT ([facility]) Body mass index (BMI) [Ratio] 41.4 kg/m2 41.4 k g/m2 MEDENT ([facility]) Body height 65 [in_i] 65 [in_i] MEDENT ([facility]) 5'5" Body weight 249.00 [lb_av] 249.00 [lb_av] MEDEN T ([facility]) Body temperature 98.5 [degF] 98.5 [degF] MEDENT ([facility]) Oxygen saturation in Arterial blood by Pulse oximetry 97 % 97 % [facility] ([facility]) Respiratory rate 18 /min 18 /min MEDENT ( [facility]) Heart rate 112 /min 112 /min [facility] ([facility]) Diastolic blood pressure 88 mm[Hg] 88 mm[Hg] MEDENT ([facility]) Systolic blood pressure 128 mm[Hg] 128 mm[Hg] M EDENT ([facility]) Diastolic blood pressure 74 mm[Hg] 74 mm[Hg] eCW1 ([facility]) Systolic blood pressure 124 mm[Hg] 124 mm[Hg] e CW1 ([facility]) Body temperature 97.3 [degF] 97.3 [degF] eCW1 ( [facility]) Respiratory rate 18 /min 18 /min eCW1 ([facility]) Heart rate 105 /min 105 /min eCW1 ([facility]) Body mass index (BMI) [Ratio] 41.46 kg/m2 41.46 kg/m2 eCW1 ([facility]) Body height 65 [in_us] 65 [in_us] eCW1 ([facility]) Body weight Measured 249.2 [lb_av] 249.2 [lb_av ] eCW1 ([facility]) ID Date Data Source [id number] 12/26/2019 02:24:08 PM EDT [facility] Name Value Range Interpretation Code Description Data Source(s) WEIGHT RECORDED 235 lb 235 lb [facility] ID Date Data Source [id number] 10/28/2019 02:32:52 PM EDT [facility] Name Value Range Interpretation Code Description Data Source(s) WEIGHT RECORDED 238 lb 238 lb [facility] ID Date Data Source [id number] 09/14/2019 10:07:13 AM EDT [facility] Name Value Range Interpretation Code Description Data Source(s) WEIGHT RECORDED 246 lb 246 lb [facility] Body height Measured 65 in 65 in [facility] ID Date Data Source [id number] 05/23/2019 02:51:57 PM EST [facility] Name Value Range Interpretation Code Description Data Source(s) WEIGHT RECORDED 245 lb 245 lb [facility] Body height Measured 65 in 65 in [facility] ID Date Data Source [id number] 05/10/2019 10:05:53 AM EST [facility] Name Value Range Interpretation Code Description Data Source(s) WEIGHT RECORDED 245 lb 245 lb [facility] Body height Measured 65 in 65 in [facility] Patient Treatment Plan of Care Planned Activity Planned Date Details Description Data Source (s) Jobst Relief 30-40mmHg Medium - 03/19/2020 12:00:00 AM EST eCW1 ([facility]) Jobst Relief 30-40mmHg Medium - 03/19/2020 12:00:00 AM EST eCW1 ([facility]) Jobst Relief 30-40mmHg Medium - 03/19/2020 12:00:00 AM EST eCW1 ([facility]) Jobst Relief 30-40mmHg Medium - 03/19/2020 12:00:00 AM EST eCW1 ([facility]) Fluocinonide 0.5 MG/ML Topical Cream 11/02/2019 12:00:00 AM [facility] Proparacaine hydrochloride 5 MG/ML Ophthalmic Solution 09/13/2019 12:15:00 PM [facility] ospital Phenylephrine Hydrochloride 25 MG/ML Ophthalmic Soluti on 09/13/2019 12:15:00 PM [facility]spital Tropicamide 10 MG/ML Ophthalmic Solution 09/13/2019 12:15:00 PM [facility] 3 ML heparin sodium, porcine 100 UNT/ML Prefilled Syri nge 09/07/2019 06:01:56 PM [facility] ospital sodium chloride (preservative free) 0.9 % flush 10 mL 09/07/2019 06:09:39 AM [facility]spital heparin sodium, porcine 10 UNT/ML Injectable Solution 09/07/2019 06:09:39 AM [facility]spital Acetazolamide 250 MG Oral Tablet 09/07/2019 12:00:00 AM [facility] Naltrexone hydrochloride 50 MG Oral Tablet 08/02/2019 12:00:00 AM [facility] Senna 8.6 MG 06/01/2019 12:00:00 AM EDT e CW1 ([facility]) torsemide 20 MG Oral Tablet 06/01/2019 12:00:00 AM EDT eCW1 ([facility]) ondansetron (ZOFRAN) injection 4 mg 05/17/2019 09:57:39 AM [facility] fentaNYL (SUBLIMAZE) (PF) injection 12.5 mcg 05/17/2019 09:57:39 AM [facility] fentaNYL (SUBLIMAZE) (PF) injection 25 mcg 05/17/2019 09:57:39 AM [facility] Acetaminophen 325 MG / Hydrocodone Bitartrate 5 MG Ora l Tablet 05/17/2019 12:00:00 AM [facility] Clozapine 100 MG Oral Tablet 05/04/2019 12:00:00 AM [facility] Omeprazole 20 MG Delayed Release Oral Capsule 05/04/2019 12:00:00 A M [facility] ramelteon 8 MG Oral Tablet 05/04/2019 12:00:00 AM [facility] Lorazepam 0.5 MG Oral Tablet 04/21/2019 12:00:00 AM [facility] Furosemide 20 MG Oral Tablet 04/09/2019 12:00:00 AM [facility] Folic Acid 1 MG Oral Tablet 06/10/2018 12:00:00 AM [facility] Amphetamine aspartate 2.5 MG / Amphetami ne Sulfate 2.5 MG / Dextroamphetamine saccharate 2.5 MG / Dextroamphetamine Sulfate 2.5 MG Oral Tablet 05/11/2018 12:00:00 AM [facility] Prazosin 1 MG Oral Capsule 02/09/2018 12:00:00 AM [facility] Hydroxyzine Hydrochloride 50 MG Oral Tablet 02/09/2018 12:00:00 AM [facility] aripiprazole 20 MG Oral Tablet 01/29/2018 12:00:00 AM [facility] Ondansetron 4 MG Disintegrating Oral Tablet 12/17/2017 12:00:00 AM [facility] Pyridostigmine [place] 60 MG Oral Tablet 12/03/2017 12:00:00 AM [facility] Naltrexone hydrochloride 50 MG Oral Tablet 12/02/2017 12:00:00 AM [facility] aripiprazole 5 MG Oral Tablet 11/17/2017 12:00:00 AM [facility] Suvorexant 5 MG Oral Tablet [Belsomra] 11/06/2017 12:00:00 AM [facility] Naproxen 375 MG Oral Tablet 09/19/2017 12:00:00 AM [facility] Phenazopyridine hydrochloride 200 MG Oral Tablet 08/27/2017 12:00:0 0 AM [facility] Furosemide 20 MG Oral Tablet [facility]
[2020-04-09 15:29] LABS: BASO % 0.6 % (0.0-1.0); EOS # 0.2 10^3/uL (0.0-0.5); EOS % 2.8 % (0.0-3.0); HEMATOCRIT 43.9 % (36.0-47.0); HEMOGLOBIN 13.8 g/dl (12.0-15.5); LYMPH # 1.3 10^3/uL (1.5-5.0); LYMPH % 20.3 % (24.0-44.0); MEAN CORPUSCULAR HEMOGLOBIN 28.5 pg (27.0-33.0); MEAN CORPUSCULAR HGB CONC 31.4 g/dl (32.0-36.5); MEAN CORPUSCULAR VOLUME 90.7 fl (80.0-96.0); MONO # 0.6 10^3/uL (0.0-0.8); MONO % 9.2 % (0.0-5.0); NEUTROPHILS # 4.3 10^3/uL (1.5-8.5); NEUTROPHILS % 66.8 % (36.0-66.0); PLATELET COUNT, AUTOMATED 221 10^3/uL (150-450); RED BLOOD COUNT 4.84 10^6/uL (4.00-5.40); WHITE BLOOD COUNT 6.4 10^3/uL (4.0-10.0)
[2020-04-09 15:59] LABS: BLOOD UREA NITROGEN 12 MG/DL (7-18); CALCIUM LEVEL 9.6 MG/DL (8.5-10.1); CARBON DIOXIDE LEVEL 32 MEQ/L (21-32); CHLORIDE LEVEL 105 MEQ/L (98-107); CREATININE FOR GFR 0.93 MG/DL (0.55-1.30); GLOMERULAR FILTRATION RATE > 60.0 (>58); GLUCOSE, FASTING 84 MG/DL (70-100); MAGNESIUM LEVEL 2.2 MG/DL (1.8-2.4); SODIUM LEVEL 141 MEQ/L (136-145)
[2020-04-09 16:50] VITALS: BP 151/83
== END 2020-04-09 16:53 | disposition home or self-care (01) ==
LOC: M ED 13:52
DX: M79.7 Fibromyalgia (principal); G70.00 Myasthenia gravis without (acute) exacerbation; F12.10 Cannabis abuse, uncomplicated; F31.9 Bipolar disorder, unspecified; Z79.899 Other long term (current) drug therapy; Z88.1 Allergy status to other antibiotic agents; Z88.8 Allergy status to other drugs, medicaments and biological substances; Z91.048 Other nonmedicinal substance allergy status; Z91.018 Allergy to other foods

== ENCOUNTER → 2020-04-11 | Outpatient (REF) | payer OTHER ==
[~2020-04-11] MED LIST changes: +MYCO500T PO; +ONDA4TAB6 PO
[2020-04-11 18:07] LABS: C REACTIVE PROTEIN QUANTITATIV 2.81 MG/DL (0.00-0.30); FREE THYROXINE INDEX 3.4 % (1.3-4.8); THYROID STIMULATING HORMONE 1.02 uIU/ML (0.358-3.740); THYROXINE (T4) 11.4 UG/DL (4.5-12.0)
== END ==
LOC: M LABDRWAD 16:14
PROVIDERS: ATTEND Physician Assistant
DX: H05.20 Unspecified exophthalmos (principal); I77.89 Other specified disorders of arteries and arterioles

== ENCOUNTER → 2020-04-11 | Outpatient (CLI) | payer OTHER ==
--- NOTE | 2020-04-12 09:24 | REP ---
INDICATION: PAIN IN BOTH KNEES COMPARISON: None. TECHNIQUE: AP, lateral, bilateral oblique and sunrise views right and left knee. FINDINGS: Examination is essentially symmetric and age-appropriate. No evidence for acute or healed injury. No effusion. No significant overt arthritic changes are appreciated. No soft tissue swelling. IMPRESSION: Essentially symmetric age-appropriate bilateral knee examination. <Electronically signed by [place] > 04/12/20 [id number]
== END ==
LOC: M ADAMS 13:20
PROVIDERS: ATTEND Family Medicine
DX: M25.562 Pain in left knee (principal); M25.561 Pain in right knee

== ENCOUNTER 2020-04-14 15:07 | Emergency (ER) | payer OTHER ==
[~2020-04-14] VITALS: Ht 165.1 cm; Wt 90.9 kg
[~2020-04-14 15:07] MED LIST changes: -MYCO500T PO; -ONDA4TAB6 PO
[2020-04-14] MEDS ORDERED: dexameTHASONE 20MG/5ML VIAL (J1100 PER 1MG) IV ONE (15:45)
[2020-04-14 16:36] LABS: BASO % 0.7 % (0.0-1.0); EOS # 0.2 10^3/uL (0.0-0.5); EOS % 3.4 % (0.0-3.0); HEMATOCRIT 41.6 % (36.0-47.0); HEMOGLOBIN 13.2 g/dl (12.0-15.5); LYMPH # 1.1 10^3/uL (1.5-5.0); LYMPH % 17.9 % (24.0-44.0); MEAN CORPUSCULAR HGB CONC 31.7 g/dl (32.0-36.5); MEAN CORPUSCULAR VOLUME 88.1 fl (80.0-96.0); MONO # 0.5 10^3/uL (0.0-0.8); MONO % 8.3 % (0.0-5.0); NEUTROPHILS # 4.1 10^3/uL (1.5-8.5); PLATELET COUNT, AUTOMATED 247 10^3/uL (150-450); RED BLOOD COUNT 4.72 10^6/uL (4.00-5.40); WHITE BLOOD COUNT 5.9 10^3/uL (4.0-10.0)
--- NOTE | 2020-04-14 16:42 | REP ---
INDICATION: brain tumor. COMPARISON: 01/15/2018 TECHNIQUE: Portable FINDINGS: The technique utilized in obtaining the radiograph has magnified the cardiac silhouette and accentuated the interstitial markings. The superior mediastinal structures are midline. The cardiac silhouette is unremarkable in size, shape, and position. The diaphragmatic surfaces of the lungs are regular, and the costophrenic angles are clear. The pulmonary tanner are clear. The imaged osseous structures are intact. A central venous catheter is in place the tip of which is in the superior vena cava. IMPRESSION: There is no acute cardiopulmonary disease. <Electronically signed by Travon Baker > 04/14/20 [id number]
[2020-04-14 16:56] LABS: PROTHROMBIN TIME 13.4 SECONDS (12.5-14.3)
[2020-04-14 16:57] LABS: PARTIAL THROMBOPLASTIN TIME 27.4 SECONDS (24.2-38.5)
[2020-04-14 17:02] LABS: ALBUMIN 3.6 GM/DL (3.2-5.2); BILIRUBIN,TOTAL 0.2 MG/DL (0.2-1.0); CREATININE FOR GFR 1.23 MG/DL (0.55-1.30); GLOMERULAR FILTRATION RATE 51.2 (>58); POTASSIUM SERUM 3.7 MEQ/L (3.5-5.1); TOTAL PROTEIN 6.7 GM/DL (6.4-8.2)
[2020-04-14 17:22] LABS: RSV AMPLIFICATION NEGATIVE (NEGATIVE)
[2020-04-14 17:46] VITALS: BP 136/91
[2020-04-14] MEDS ORDERED: ACET250T2 PO (17:53)
[2020-04-14] MEDS ORDERED: MYCO500T PO (17:53)
[2020-04-14] MEDS ORDERED: ONDA4TAB6 PO (18:07)
== END 2020-04-14 18:05 | disposition short-term general hospital (02) ==
LOC: M ED 15:07
DX: D49.6 Neoplasm of unspecified behavior of brain (principal); G70.00 Myasthenia gravis without (acute) exacerbation; F41.9 Anxiety disorder, unspecified; F31.9 Bipolar disorder, unspecified; Z87.891 Personal history of nicotine dependence; Z91.018 Allergy to other foods; Z88.8 Allergy status to other drugs, medicaments and biological substances; Z88.1 Allergy status to other antibiotic agents; Z88.6 Allergy status to analgesic agent; Z91.048 Other nonmedicinal substance allergy status
CPT/HCPCS: 36415; 71045; 80053; 85025; 85610; 85730; 87631; 96374; 99285; J1100

== ENCOUNTER 2020-06-16 20:02 | Emergency (ER) | payer MEDICAID, OTHER ==
[~2020-06-16] VITALS: Ht 165.1 cm; Wt 76.1 kg
[~2020-06-16 20:02] MED LIST changes: +MYCO500T PO; +ONDA4TAB6 PO
[2020-06-16] MEDS ORDERED: ONDANSETRON 4MG/2ML VIAL IV ONE (20:40)
[2020-06-16 21:07] LABS: HEMATOCRIT 40.4 % (36.0-47.0); HEMOGLOBIN 12.7 g/dl (12.0-15.5); MEAN CORPUSCULAR HEMOGLOBIN 26.5 pg (27.0-33.0); MEAN CORPUSCULAR HGB CONC 31.4 g/dl (32.0-36.5); MEAN CORPUSCULAR VOLUME 84.2 fl (80.0-96.0); PLATELET COUNT, AUTOMATED 424 10^3/uL (150-450); WHITE BLOOD COUNT 9.2 10^3/uL (4.0-10.0)
[2020-06-16 21:11] LABS: INR 1.24; PROTHROMBIN TIME 15.8 SECONDS (12.5-14.3)
[2020-06-16 21:12] LABS: PARTIAL THROMBOPLASTIN TIME 33.7 SECONDS (24.2-38.5)
[2020-06-16 21:18] LABS: ALBUMIN 3.5 GM/DL (3.2-5.2); ALT/SGPT 86 U/L (12-78); BILIRUBIN,TOTAL 0.4 MG/DL (0.2-1.0); BLOOD UREA NITROGEN 11 MG/DL (7-18); CALCIUM LEVEL 8.4 MG/DL (8.5-10.1); CARBON DIOXIDE LEVEL 23 MEQ/L (21-32); CHLORIDE LEVEL 106 MEQ/L (98-107); CREATININE FOR GFR 0.59 MG/DL (0.55-1.30); GLOMERULAR FILTRATION RATE > 60.0 (>58); GLUCOSE, FASTING 101 MG/DL (70-100); POTASSIUM SERUM 3.3 MEQ/L (3.5-5.1); SODIUM LEVEL 139 MEQ/L (136-145); TOTAL PROTEIN 6.2 GM/DL (6.4-8.2)
--- NOTE | 2020-06-16 21:24 | REPVR ---
PROCEDURE INFORMATION: Exam: CT Head Without Contrast Exam date and time: 06/16/2020 8:10 PM Age: 40 years old Clinical indication: Injury or trauma; Fall; Blunt trauma (contusions or hematomas); Additional info: Head injury on eliquis TECHNIQUE: Imaging protocol: Computed tomography of the head without contrast. Radiation optimization: All CT scans at this facility use at least one of these dose optimization techniques: automated exposure control; mA and/or kV adjustment per patient size (includes targeted exams where dose is matched to clinical indication); or iterative reconstruction. Other technique: STROKE PROTOCOL was implemented. COMPARISON: CT Head without contrast 02/04/2017 8:35 PM FINDINGS: Tubes, catheters and devices: A ECD shunt is noted left frontal lobe and extending to the midline. There are normal-sized ventricles. Brain: There is severe low density throughout the wojciech and also the right cerebellum. There is impression on the 4th ventricle and effacement of the quadrigeminal cistern. Nonvisualization of the right side of the quadrigeminal cistern is consistent with significant mass effect. This is probably the result of underlying mass lesion. There are areas of low density within the right external capsule and right basal ganglia region as well which may be new or old. Cerebral ventricles: There is an old lacunar infarct along the right lateral ventricle near the right frontal horn of the lateral ventricle. Bones/joints: There is a large craniotomy defect right posterior fossa. Mastoid air cells: Visualized mastoid air cells are well aerated. No evidence of acute bleed. 2.3 x 1.1 cm area of increased density at the right CP angle region probably residual neoplasm primary or metastatic. The low density of the wojciech and right cerebellum should be considered significant since the quadrigeminal cistern is no longer visualized indicating increased pressure. Low density at the right internal capsule region may be old or new, however, since there is prominence of the sulci right parietal lobe and an old lacunar infarct this may be old. According to history the patient recently fell but continues to be alert however progressive dizziness and vomiting for 2 weeks. Mass effect of great concern because low-density edema of the wojciech and right cerebellum along with the pressure on the 4th ventricle and nonvisualization of the quadrigeminal cistern. IMPRESSION: 1. Large craniotomy defect right posterior fossa region. Large low density throughout the right cerebellum is probably the result of underlying neoplasm and also impressing on the right side of the 4th ventricle and there is a basement of the quadrigeminal cistern. 2. Low density throughout the wojciech probably the result of edema from neoplasm. 3. No evidence of acute bleed. 4. The patient's previous history including previous brain studies must be obtained for comparison. I have no films for comparison and attempting to get additional history. There is a 2.3 x 1.1 cm area of increased density right CP angle region and this may represent neoplasm primary or metastatic. Additional history suggests that the patient had metastatic lesion associated with wojciech. The low density through the wojciech and right cerebellum is of concern for edema. There is concern for mass effect on the right side of the 4th ventricle and quadrigeminal cistern. This edema may be increased and progressive since the patient has experienced dizziness and nausea over the last 2 weeks. Attempt should be made to obtain the patient's previous head CT or previous reports to determine if there has been a significant change. Based on this study we should assume that the edema of the wojciech and right cerebellum represents a significant finding and possible increase.Findings were discussed with attending and staff at 06/16/2020 9:10 PM EDT. ASSESSMENT: ASPECTS ([place] Stroke Program Early CT Score) is 9. Electronically signed by: Pasquale Sims On 06/16/2020 21:24:30 PM
[2020-06-16] MEDS ORDERED: dexameTHASONE 20MG/5ML VIAL (J1100 PER 1MG) IV ONE (21:35)
[2020-06-16] MEDS ORDERED: ACETAMINOPHEN *IV* 1,000 MG in IV 1 EA IV ONE (22:30)
[2020-06-16 23:06] VITALS: BP 180/95
[2020-06-17] MEDS ORDERED: MAGN400T3 PO (19:51)
[2020-06-17] MEDS ORDERED: PANT-23 PO (19:51)
[2020-06-17] MEDS ORDERED: ELIQ5TAB PO (19:51)
[2020-06-17] MEDS ORDERED: DIPH25CA32 PO (19:51)
[2020-06-17] MEDS ORDERED: ROPI2TAB3 PO (19:51)
[2020-06-17] MEDS ORDERED: APAP325T4 PO (19:51)
[2020-06-17] MEDS ORDERED: DOK100TA2 PO (19:51)
[2020-06-17] MEDS ORDERED: HYDR-3713 PO (19:51)
[2020-06-17] MEDS ORDERED: MIRA3350 PO (19:51)
[2020-06-17] MEDS ORDERED: BUPR1SUB4 SL (19:51)
[2020-06-17] MEDS ORDERED: MED REC COMMENT (19:54)
== END 2020-06-16 23:11 | disposition short-term general hospital (02) ==
LOC: M ED 20:02
DX: G93.6 Cerebral edema (principal); R42 Dizziness and giddiness; W06.XXXA Fall from bed, initial encounter; Y92.009 Unspecified place in unspecified non-institutional (private) residence as the place of occurrence of the external cause; Y93.9 Activity, unspecified; Y99.9 Unspecified external cause status; R11.2 Nausea with vomiting, unspecified; Z79.01 Long term (current) use of anticoagulants; Z79.899 Other long term (current) drug therapy; Z88.1 Allergy status to other antibiotic agents; Z91.048 Other nonmedicinal substance allergy status; Z91.018 Allergy to other foods; Z88.8 Allergy status to other drugs, medicaments and biological substances; Z88.6 Allergy status to analgesic agent; Z98.2 Presence of cerebrospinal fluid drainage device; C50.919 Malignant neoplasm of unspecified site of unspecified female breast; C79.31 Secondary malignant neoplasm of brain; Z98.890 Other specified postprocedural states
CPT/HCPCS: 70450; 80053; 85027; 85610; 85730; 96365; 96375; 99285; J0131; J1100; J2405

== ENCOUNTER 2020-06-17 15:51 | Inpatient (IN) | payer OTHER ==
[~2020-06-17] VITALS: Ht 170.2 cm; Wt 75.0 kg
--- NOTE | 2020-06-17 16:01 | ED PDOC ---
Post-Departure Follow-Up [facility] accessed. Pt. informed Eric Braun M.D. Jun 17, 2020 16:01
[2020-06-17] MEDS ORDERED: LORazepam 2 MG/ML VIAL IV STA (16:44)
[2020-06-17] MEDS ORDERED: SODIUM CHLORIDE 0.9% INJ 10 ML SYR IV PRN (16:45)
[2020-06-17] MEDS ORDERED: MORPHINE 2 MG/ML 1ML VIAL (J2270) IV ONE ×3 (18:40→23:40)
--- NOTE | 2020-06-17 18:52 | REPVR ---
PROCEDURE INFORMATION: Exam: CT Head Without Contrast Exam date and time: 06/17/2020 6:02 PM Age: 40 years old Clinical indication: Altered mental status/memory loss TECHNIQUE: Imaging protocol: Computed tomography of the head without contrast. Radiation optimization: All CT scans at this facility use at least one of these dose optimization techniques: automated exposure control; mA and/or kV adjustment per patient size (includes targeted exams where dose is matched to clinical indication); or iterative reconstruction. COMPARISON: CT Head without contrast 06/16/2020 8:06 PM FINDINGS: Brain: As on yesterday's examination there is marked low density in the wojciech and inferior midbrain with compression of the 4th ventricle and low density extending into both cerebellar hemispheres greater on right than left. There appears to be bilateral uncal herniation again greater on right than. Prior lacunar infarction right caudate is again noted. There is edema in the right basal ganglia and internal capsule. Encephalomalacia versus tumor is again seen in the right frontal lobe. No acute intracranial hemorrhage. Cerebral ventricles: Left frontal shunt catheter tip crosses midline and is in region roof of the 3rd ventricle. Bones/joints: Right posterior fossa craniectomy, left and right frontal stephanie holes as well as right parietal. Paranasal sinuses: Visualized sinuses are unremarkable. No fluid levels. Mastoid air cells: Visualized mastoid air cells are well aerated. Soft tissues: Unremarkable. IMPRESSION: Probable infiltrative tumor involving the brainstem with extension into the right and to a lesser degree left cerebellar hemispheres compressing the 4th ventricle and likely decompressed by the ventricular peritoneal shunt. There is bilateral uncal herniation greater on right than left and associated white matter vasogenic edema. Findings are unchanged in comparison to yesterday's study. Electronically signed by: Mi King On 06/17/2020 18:52:00 PM
[2020-06-17] MEDS ORDERED: LABETALOL 100MG/20ML VIAL IV STA (18:56)
[2020-06-17] MEDS ORDERED: LABETALOL 100MG TAB PO ONE (19:00)
[2020-06-17 19:13] VITALS: BP 201/111
[2020-06-17] MEDS ORDERED: DOK100TA2 PO (19:51)
[2020-06-17] MEDS ORDERED: HYDR-3713 PO (19:51)
[2020-06-17] MEDS ORDERED: PANT-23 PO (19:51)
[2020-06-17] MEDS ORDERED: ELIQ5TAB PO (19:51)
[2020-06-17] MEDS ORDERED: BUPR1SUB4 SL (19:51)
[2020-06-17] MEDS ORDERED: DIPH25CA32 PO (19:51)
[2020-06-17] MEDS ORDERED: APAP325T4 PO (19:51)
[2020-06-17] MEDS ORDERED: ROPI2TAB3 PO (19:51)
[2020-06-17] MEDS ORDERED: MAGN400T3 PO (19:51)
[2020-06-17] MEDS ORDERED: MIRA3350 PO (19:51)
[2020-06-17] MEDS ORDERED: MED REC COMMENT (19:54)
[2020-06-17 20:05] LABS: BASO % 0.3 % (0.0-1.0); EOS % 0.1 % (0.0-3.0); HEMATOCRIT 33.6 % (36.0-47.0); LYMPH # 1.9 10^3/uL (1.5-5.0); LYMPH % 18.5 % (24.0-44.0); MEAN CORPUSCULAR HEMOGLOBIN 27.2 pg (27.0-33.0); MEAN CORPUSCULAR HGB CONC 31.8 g/dl (32.0-36.5); MEAN CORPUSCULAR VOLUME 85.3 fl (80.0-96.0); MONO # 1.3 10^3/uL (0.0-0.8); MONO % 12.3 % (2.0-8.0); NEUTROPHILS % 68.4 % (36.0-66.0); PLATELET COUNT, AUTOMATED 393 10^3/uL (150-450); RED BLOOD COUNT 3.94 10^6/uL (4.00-5.40); WHITE BLOOD COUNT 10.2 10^3/uL (4.0-10.0)
[2020-06-17 20:16] LABS: HEMOGLOBIN 10.7 g/dl (12.0-15.5)
[2020-06-17 20:20] LABS: BLOOD UREA NITROGEN 11 MG/DL (7-18); CALCIUM LEVEL 9.2 MG/DL (8.5-10.1); CARBON DIOXIDE LEVEL 20 MEQ/L (21-32); CHLORIDE LEVEL 108 MEQ/L (98-107); CREATININE FOR GFR 0.64 MG/DL (0.55-1.30); GLOMERULAR FILTRATION RATE > 60.0 (>58); GLUCOSE, FASTING 84 MG/DL (70-100); NT-PRO BNP 198 PG/ML (<125); POTASSIUM SERUM 3.4 MEQ/L (3.5-5.1); SODIUM LEVEL 140 MEQ/L (136-145)
[2020-06-17] MEDS ORDERED: METOPROLOL 5 MG/5 ML VIAL IV STA (20:31)
[2020-06-17 20:33] LABS: RSV AMPLIFICATION NEGATIVE (NEGATIVE)
[2020-06-17] MEDS ORDERED: diphenhydrAMINE 25MG CAP PO PRN (20:35)
[2020-06-17] MEDS ORDERED: NORCO, ANEXSIA 5/325MG TABLET (HYDROcodone/ACETAMINOPHEN) PO PRN (20:35)
[2020-06-17] MEDS ORDERED: ONDANSETRON 4 MG ORAL DISINTEGRATING TAB PO PRN (20:35)
[2020-06-17] MEDS ORDERED: ACETAMINOPHEN TAB 650MG DOSE (2X325MG) PO PRN (20:35)
[2020-06-17] MEDS ORDERED: MIRALAX *UNIT DOSE* 17GM PACKET PO PRN (20:35)
[2020-06-17] MEDS ORDERED: BACLOFEN 10 MG TAB PO PRN (20:35)
[2020-06-17] MEDS ORDERED: MAALOX 30 ML SUSP *UDC PO PRN (20:35)
[2020-06-17] MEDS ORDERED: SENNA 8.6 MG TAB (SENOKOT) PO PRN (20:35)
[2020-06-17] MEDS ORDERED: MOM 30ML SUSPENSION UDC PO PRN (20:35)
[2020-06-17] MEDS ORDERED: POTASSIUM CHLORIDE 10 MEQ SR TABLET PO ONE (20:35)
--- NOTE | 2020-06-17 20:38 | REPVR ---
PROCEDURE INFORMATION: Exam: XR Chest Exam date and time: 06/17/2020 8:05 PM Age: 40 years old Clinical indication: Tachypnea; Additional info: Tachycardia / tachypnea / R/O pna TECHNIQUE: Imaging protocol: XR of the chest Views: 2 views. COMPARISON: CR PORTABLE CHEST X-RAY 04/14/2020 3:54 PM FINDINGS: Tubes, catheters and devices: Right probable INTERNAL MEDICINE PHYSICIAN ASSISTANT shunt tubing is seen from neck through thorax into upper abdomen. Lungs: Lung volumes are low without focal pulmonary infiltrate. Pleural spaces: No pneumothorax or pleural effusion. Heart/Mediastinum: Cardiomediastinal silhouette is not enlarged. Vasculature: MediPort catheter tip in region of superior vena cava. Bones/joints: No significant skeletal findings. Evidence of median sternotomy. Intraperitoneal space: Surgical clips are seen in right upper quadrant. IMPRESSION: No evidence of pneumonia or congestive heart failure. Electronically signed by: Mi King On 06/17/2020 20:37:53 PM
[2020-06-17] MEDS ORDERED: acetaZOLAMIDE 250 MG TAB PO SCH (21:00)
[2020-06-17] MEDS ORDERED: rOPINIRole 1MG TAB PO SCH (21:00)
[2020-06-17] MEDS ORDERED: APIXABAN 5 MG TAB (ELIQUIS) PO SCH (21:00)
[2020-06-17] MEDS ORDERED: MYCOPHENOLATE MOFETIL 250 MG CAP (J7517) PO SCH (21:00)
[2020-06-17] MEDS ORDERED: PYRIDOSTIGMINE 60 MG TAB PO SCH (21:00)
[2020-06-17 21:16] LABS: FERRITIN 15 NG/ML (8-252); IRON (FE) 22 UG/DL (50-170); MAGNESIUM LEVEL 1.6 MG/DL (1.8-2.4); PERCENT SATURATION 6.7 % (13.2-45.0); TOTAL IRON BINDING CAPACITY 326 UG/DL (250-450)
[2020-06-17] MEDS ORDERED: dexameTHASONE 20MG/5ML VIAL (J1100 PER 1MG) IV ONE (22:25)
--- NOTE | 2020-06-17 23:38 | HPEPDOC ---
[facility] Medical History & Physical Date of Admission Jun 17, 2020 Date of Service: Jun 17, 2020 Attending Physician: ALEXIA TORRES MD History and Physical TIME OF SERVICE 948PM CHIEF COMPLAINT: WEAKNESS HISTORY OF PRESENT ILLNESS: The history was obtained from the patient's & via chart review. 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 She received 4 cycles of Docetaxel/cyclophosphamide, adjuvant chemotherapy,right lumpectomy, sentinel node biopsy 05/17/[address] [facility] and radiation therapy. Thereafter she was on tamoxifene. Early in 2019 she was [facility]/o dizziness and found to have a large mass in the cerebellum that had metastasized from the breast and had radiation. The plan was to start abimaciclib, aromatase inhibitor and Lupron therapy once the patient had recovered. According to her after discharge from [facility] she was doing well and able to use a rolling walker, but over the last few days she has been falling, can't hear and eating less. The brought the patient here yesterday, she was transferred to [facility] and saw a Neurosurgeon and discharged; unfortunately he was not able to give me details about the treatment plan from [facility] and the day time ER providers here at [facility] had left the patient to be admitted. I was not able to contact them for details about their conversation. Upon chart review I discovered CT of the head showed a mass at the brain stem along with Uncal herniation and vasogenic edema. I talked with our Oncologist who recommended Dexamethasone and transfer back to [facility]. I called [facility] [place] again and was told that Dr. Grier Neurosurgeon had already discussed the case with and had asked for an MRI, which I was not aware of, and asked to be called back with the details but unfortunately our MRI suite is closed. ROS unable to obtain bc the patient has AMS PMH/PSH Metastatic brain cancer s/p lumpectomy, chemo/radiation & brain tumor resection Myasthenia gravis on chronic immunosuppression s/p thymectomy OPHELIA. Depression/ADD GERD. Elevated spinal fluid pressure Ovarian sparing hysterectomy - Uterine leiomyoma Lymphedema legs Sleep apnea on CPAP Mitral valve regurgitation GERD Tubal ligation Cholecystectomy SH Lives with H Unobtainable Meds: see below Allergies: see below PHYSICAL EXAM Vital Signs Date Time Temp Pulse Resp B/P (MAP) Pulse Ox O2 Delivery O2 Flow Rate FiO2 06/17/20 15:56 110 20 184/96 100 Room Air 06/17/20 16:44 97.7 GEN: agitated HEENT: MMM&P CVS: tachycardic / NMRG LUNGS: CTAB MSK: moving arms an dlegs NEURO: unable to assess bc of lack of patient cooperation PSYCH: alert / trying to speak but her speech is dysarthric / appears encephalopathic LABS 06/17/20 17:00 Immature Granulocyte % (Auto) 0.4, Neutrophils (%) (Auto) 68.4H, Lymphocytes (%) (Auto) 18.5L, Monocytes (%) (Auto) 12.3H, Eosinophils (%) (Auto) 0.1, Basophils (%) (Auto) 0.3, Neutrophils # (Auto) 7.0, Lymphocytes # (Auto) 1.9, Monocytes # (Auto) 1.3H, Eosinophils # (Auto) 0.0, Basophils # (Auto) 0.0, Nucleated Red Blood Cells % (auto) 0.0, Anion Gap 12, Glomerular Filtration Rate > 60.0, Calcium Level 9.2, Magnesium Level 1.6L, Iron Level 22L, Total Iron Binding Capacity 326, Transferrin % Saturation 6.7L, Ferritin 15, WB-Ows-X-Type Natriuretic Peptide 198H 06/17/20 18:51: POC Troponin I (Misc) 0.01 06/17/20 19:25: Coronavirus (COVID-19)(PCR) NEGATIVE, Influenza Type A (RT-PCR) NEGATIVE, Influenza Type B (RT-PCR) NEGATIVE, Respiratory Syncytial Virus (PCR) NEGATIVE 06/17/20 19:33: Lactic Acid Level 1.[address] brain "IMPRESSION: Probable infiltrative tumor involving the brainstem with extension into the right and to a lesser degree left cerebellar hemispheres compressing the 4th ventricle and likely decompressed by the ventricular peritoneal shunt. There is bilateral uncal herniation greater on right than left and associated white matter vasogenic edema. Findings are unchanged in comparison to yesterday's study. " ASSESSMENT & PLAN: is a 78 yr old w a hx of breast cancer with mets to the brain, myesthenia gravis, OPHELIA, depression, ADD, GERD, elevated CSF pressure & MVR who was brought by her for evaluation of hearing loss, poor appetite, falls and weakness; CT showed brain stem tumor with compression of the 4th ventricle, uncal herniation and vasogenic edema. 1.Metastatic Brain Cancer Beyond recommendations to obtain an MRI of the brain, we do not know the treatment plan for the brain imaging findings, do not have the most recent Hematology / Oncology notes from [facility] and do not have a Neurosurgeon in house to help us manage this patient. [facility] declined transfer Plan: Because we do not have the ability to manage this patient at our facility I will make plans to transfer her to another facility with a Neurosurgeon and Hematology/Oncolgy team / will order Morphine for pain / will avoid sedatives which can suppress the patient's respiratory drive which is important to avoid bc the mass is at her brain stem / IV Decadrone 2 Encephalopathy Possibly 2/2 mets vs other source TBD Plan:pending transfer she will need a sitter because she is trying to get out of bed 3. SIRS Tachypnea and tachycardia Reactive vs 2/2 occult infection No blood work was ordered Plan:initiate sepsis protocol /f/u CBC, BMP, lactic acid, UA, respiratory panel and chest xray 4 Hypokalemia Plan: KCl / f/u Mg 5 N anemia Plan: check iron studies 6 Hypertensive Urgency Was likely 2/2 pain Plan: c/w pain meds Dispo:will attempt to transfer to a facility with a Neurosurgeon. Home Medications Scheduled Acetazolamide (Acetazolamide) 250 Mg Tablet, 500 MG PO BID Apixaban (Eliquis) 5 Mg Tablet, 5 MG PO BID Buprenorphine HCl/Naloxone HCl (Buprenorphn-Naloxn 2-0.5 mg Sl) 1 Each Tab.subl, 1 TAB SL DAILY Docusate Sodium (Dok) 100 Mg Tablet, 100 MG PO BID Folic Acid (Folic Acid) 1 Mg Tab, 1 MG PO DAILY Magnesium Oxide (Magnesium Oxide) 400 Mg Tablet, 400 MG PO DAILY Mycophenolate Mofetil (Cellcept) 500 Mg Tab, 1,000 MG PO BID Mycophenolate Mofetil (Mycophenolate Mofetil) 500 Mg Tablet, 500 MG PO DAILY NOON Pantoprazole Sodium (Pantoprazole Sodium) 40 Mg Tablet.dr, 40 MG PO DAILY Potassium Chloride (Potassium Chloride) 20 Meq Tablet.er, 20 MEQ PO DAILY Pyridostigmine [place] (Mestinon) 60 Mg Tab, 90 MG PO QID Ropinirole HCl (Ropinirole HCl) 2 Mg Tablet, 2 MG PO QHS Tamoxifen Citrate (Tamoxifen Citrate) 20 Mg Tablet, 20 MG PO DAILY Venlafaxine HCl (Venlafaxine HCl ER) 75 Mg Cap.er.24h, 225 MG PO DAILY Scheduled PRN Acetaminophen (Acetaminophen) 325 Mg Tablet, 975 MG PO Q8H PRN for PAIN Baclofen (Baclofen) 10 Mg Tablet, 10 MG PO TID PRN for MUSCLE SPASMS Diphenhydramine HCl (Diphenhydramine HCl) 25 Mg Capsule, 50 MG PO QHS PRN for ANXIETY Hydrocodone/Acetaminophen (Hydrocodone-Acetamin 5-325 mg) 1 Each Tablet, 1 TAB PO QID PRN for PAIN Ondansetron (Ondansetron Odt) 4 Mg Tab.rapdis, 4 MG PO Q6-8HP PRN for nausea/vomiting Polyethylene Glycol 3350 (Miralax) 119 Gm Powder, 17 GM PO DAILY PRN for CONSTIPATION dilute in 8 ounces of water or juice Sennosides (Senna) 8.6 Mg Tablet, 2 TAB PO QHS PRN for CONSTIPATION Miscellaneous Medications [Med Rec Comment] SPOKE WITH SPOUSE,PATIENT WAS DISCHARGED FROM [facility] TODAY HE IS UNSURE OF LAST DOSAGES.NOTHING LISTED ONLINE FOR [facility] Allergies Coded Allergies: amitriptyline (Verified Allergy, Severe, SWELLING, 11/29/19) Grass (Verified Allergy, Mild, ITCHY EYES,NOSE, 11/29/19) TAPE (Verified Allergy, Mild, RASH/BLISTER, 11/29/19) TREES (Verified Allergy, Mild, ITCHY EYES,NOSE, 11/29/19) adhesive (Verified Allergy, Unknown, 11/29/19) divalproex sodium (Verified Allergy, Unknown, 11/29/19) minocycline (Verified Allergy, Unknown, 11/29/19) mold (Verified Allergy, Unknown, 11/29/19) tetracycline (Verified Allergy, Unknown, 11/29/19) bupropion (Verified Adverse Reaction, Intermediate, ESOPHAGEAL SPASMS, 11/29/19) banana (Verified Adverse Reaction, Mild, VOMITING, 11/29/19) benztropine (Verified Adverse Reaction, Mild, BLURRED VISION, 11/29/19) clindamycin (Verified Adverse Reaction, Mild, HEART BURN, 11/29/19) gabapentin (Verified Adverse Reaction, Mild, extreme weakness, 11/29/19) metaxalone (Verified Adverse Reaction, Mild, itching, 11/29/19) pregabalin (Verified Adverse Reaction, Mild, EDEMA, 11/29/19) sulfamethoxazole (Verified Adverse Reaction, Mild, DIARRHEA, 11/29/19) tizanidine (Verified Adverse Reaction, Mild, ITCHING, 11/29/19) trazodone (Verified Adverse Reaction, Mild, EDEMA, 11/29/19) trimethoprim (Verified Adverse Reaction, Mild, DIARRHEA, 11/29/19) vilazodone (Verified Adverse Reaction, Mild, MOOD CHANGES, 11/29/19) cyclobenzaprine (Verified Adverse Reaction, Unknown, IRRITABILITY, 11/29/19) valproic acid (Unverified Adverse Reaction, Unknown, DOES NOT METABOLIZE, 11/29/19) A-FIB/CHADSVASC A-FIB History Current/History of A-Fib/PAF?: No Current PO Anticoag Therapy: No ALEXIA TORRES MD Jun 17, 2020 23:38
[2020-06-18] MEDS ORDERED: MORPHINE 2 MG/ML 1ML VIAL (J2270) IV ONE ×2 (00:45→02:55)
[2020-06-18] MEDS ORDERED: dexameTHASONE 4 MG/ML 1ML VIAL (J1100 PER 1MG) IV SCH ×2 (03:00→09:00)
[2020-06-18] MEDS ORDERED: dexameTHASONE 20MG/5ML VIAL (J1100 PER 1MG) IV SCH (03:00)
[2020-06-18 03:13] LABS: APPEARANCE, URINE CLOUDY (CLEAR); BACTERIA, URINE AUTO NEGATIVE (NEGATIVE); BILIRUBIN, URINE AUTO NEGATIVE (NEGATIVE); BLOOD, URINE BLOOD NEGATIVE (NEGATIVE); CALCIUM OXALATE CRYSTALS SMALL; COLOR, URINE AMBER (YELLOW); GLUCOSE, URINE (UA) AUTO NEGATIVE (NEGATIVE); KETONE, URINE AUTO 2+ mg/dL (NEGATIVE); LEUKOCYTE ESTERASE, URINE AUTO 1+ (NEGATIVE); MUCUS, URINE SMALL (NEGATIVE); NITRITE, URINE AUTO NEGATIVE (NEGATIVE); PROTEIN, URINE AUTO 1+ mg/dL (NEGATIVE); RBC, URINE AUTO 5 /HPF (0-3); SPECIFIC GRAVITY URINE AUTO 1.029 (1.002-1.035); SQUAMOUS EPITHELIAL CELL UR AU 15 /HPF (0-6); WBC, URINE AUTO 2 /HPF (0-3)
--- NOTE | 2020-06-18 03:28 | DS.PDOC ---
Discharge Summary General Date of Admission Jun 17, 2020 at 20:31 Date of Discharge 06/18/2020 Primary Care Physician: JOEY PHILIP DO Attending Physician: ALEXIA TORRES MD Specialist/Consultants Involve: MARIBETH MOSER MD Discharge Summary PROCEDURES PERFORMED DURING STAY: [None]. ADMITTING DIAGNOSES: 1. Metastatic breast cancer with mets to the brain. 2. Encephalopathy DISCHARGE DIAGNOSES: 1.Metastatic Brain Cancer 2 Encephalopathy 3 SIRS 4 Hypokalemia 5 N anemia 6 Hypertensive Urgency -resolved 7 Myasthenia gravis on chronic immunosuppression s/p thymectomy 8 OPHELIA 9 Depression/ADD 10 GERD COMPLICATIONS/CHIEF COMPLAINT: Sirs,Weakness. HISTORY OF PRESENT ILLNESS: per HPI "The history was obtained from the patient's & via chart review the patient can't talk. This 78 yr old F was diagnosed with stage IIA, pT2 (3.5 cm) N0 (i-), G3, ER30%/PR40% positive, Oncotype score 69 HER2 negative right breast invasive ductal carcinoma in 04/2019. She received 4 cycles of Docetaxel/cyclophosphamide, adjuvant chemotherapy,right lumpectomy, sentinel node biopsy 05/17/2019 at [facility] and radiation therapy. Thereafter she was on tamoxifene. Early in 2020 she was admitted to [facility] w c/o dizziness and found to have a large mass in the cerebellum that had metastasized from the breast and had radiation. The plan was to start abimaciclib, aromatase inhibitor and Lupron therapy once the patient had recovered. According to her after discharge from [facility] she was doing well and able to use a rolling walker, but over the last few days she has been falling, can't hear and eating less. The brought the patient here yesterday, she was transferred to [facility] and saw a Neurosurgeon and discharged; unfortunately he was not able to give me details about the treatment plan from [facility], and told me that he was told "the scans are clear". Today he returned with the patient with similar c/o the day time ER providers here at [facility] had left the patient to be admitted by our service. Upon chart review I discovered CT of the head showed a mass at the brain stem along with Uncal herniation and vasogenic edema. I talked with our Oncologist who recommended Dexamethasone and transfer back to [facility]. I called [facility] and was told that Dr. Grire Neurosurgeon had already discussed the case with and had asked for an MRI, which I was not aware of, and asked to be called back with the details but unfortunately our MRI suite is closed. I was not able to get a hold of or (ER) to discuss the case." HOSPITAL COURSE: The patient was held in the ER pending transfer. DISCHARGE MEDICATIONS: Please see below. ALLERGIES: Please see below. PHYSICAL EXAMINATION ON DISCHARGE: Vital Signs Date Time Temp Pulse Resp B/P (MAP) Pulse Ox O2 Delivery O2 Flow Rate FiO2 06/18/20 01:31 20 Room Air 06/18/20 00:45 151/89 (109) 06/18/20 00:40 96 99 06/18/20 00:30 151/90 (110) 06/18/20 00:26 148/93 (111) 06/18/20 00:25 78 06/17/20 22:10 18 94 Room Air 06/17/20 21:55 87 89 06/17/20 21:45 144/87 (106) 06/17/20 21:40 78 85 06/17/20 21:25 85 144/85 (104) 98 06/17/20 21:24 90 84 06/17/20 21:09 79 06/17/20 20:54 99 96 06/17/20 20:39 101 92 06/17/20 20:24 80 162/96 (118) 96 06/17/20 20:09 86 91 06/17/20 19:54 84 98 06/17/20 19:39 100 100 06/17/20 19:24 95 97 06/17/20 19:13 126 201/111 06/17/20 19:09 127 22 158/113 (128) 100 Room Air 06/17/20 18:52 20 06/17/20 18:51 119 22 100 Room Air 06/17/20 18:36 126 22 100 Room Air 06/17/20 18:35 126 22 205/115 (145) 100 Room Air 06/17/20 18:21 131 99 06/17/20 18:06 102 18 100 Room Air 06/17/20 17:51 111 18 100 Room Air 06/17/20 17:36 109 18 97 Room Air 06/17/20 17:21 104 18 97 Room Air 06/17/20 17:08 Room Air 06/17/20 17:06 103 18 97 Room Air 06/17/20 16:51 102 18 100 Room Air 06/17/20 16:44 97.7 06/17/20 16:31 118 18 191/112 (138) 98 Room Air 06/17/20 16:15 107 18 165/104 (124) 97 Room Air 06/17/20 16:02 106 18 184/96 (125) 100 Room Air 06/17/20 15:56 110 20 184/96 100 Room Air Laboratory Tests 06/17/20 17:00: White Blood Count 10.2H, Red Blood Count 3.94L, Hemoglobin 10.7#L, Hematocrit 33.6L, Mean Corpuscular Volume 85.3, Mean Corpuscular Hemoglobin 27.2, Mean Cor puscular Hemoglobin Concent 31.8L, Red Cell Distribution Width 14.9H, Platelet Count 393, Immature Granulocyte % (Auto) 0.4, Neutrophils (%) (Auto) 68.4H, Lymphocytes (%) (Auto) 18.5L, Monocytes (%) (Auto) 12.3H, Eosinophils (%) (Auto) 0.1, Basophils (%) (Auto) 0.3, Neutrophils # (Auto) 7.0, Lymphocytes # (Auto) 1.9, Monocytes # (Auto) 1.3H, Eosinophils # (Auto) 0.0, Basophils # (Auto) 0.0, Nucleated Red Blood Cells % (auto) 0.0, Sodium Level 140, Potassium Level 3.4L, Chloride Level 108H, Carbon Dioxide Level 20L, Anion Gap 12, Blood Urea Nitrogen 11, Creatinine 0.64, Glomerular Filtration Rate > 60.0, Fasting Glucose 84, Calcium Level 9.2, Magnesium Level 1.6L, Iron Level 22L, Total Iron Binding Capacity 326, Transferrin % Saturation 6.7L, Ferritin 15, EO-Olh-A-Type Natriuretic Peptide 198H, Vitamin B12 Level [Pending], Folate [Pending] 06/17/20 18:51: POC Troponin I (Misc) 0.01 06/17/20 19:25: Coronavirus (COVID-19)(PCR) NEGATIVE, Influenza Type A (RT-PCR) NEGATIVE, Influenza Type B (RT-PCR) NEGATIVE, Respiratory Syncytial Virus (PCR) NEGATIVE 06/17/20 19:33: Lactic Acid Level 1.4 06/18/20 01:47: Urine Color PRESLEY, Urine Appearance CLOUDYH, Urine pH 5.0, Urine Specific [place] 1.029, Urine Protein 1+H, Urine Glucose (Auto)(UA) NEGATIVE, Urine Ketones (Auto) 2+H, Urine Blood NEGATIVE, Urine Nitrite NEGATIVE, Urine Bilirubin NEGATIVE, Urine Urobilinogen 2.0H, Urine Leukocyte Esterase (Auto) 1+H, Urine WBC (Auto) 2, Urine RBC (Auto) 5H, Urine Hyaline Casts (Auto) 0, Urine Bacteria (Auto) NEGATIVE, Urine Squamous Epithelial Cells 15, Urine Calcium Oxalate Cryst (Auto) SMALL, Urine Mucus (Auto) SMALL, Urine Yeast-Like Cells (Auto) SMALLH, Urine Sperm (Auto) PROGNOSIS: [guarded] ACTIVITY: [bed rest] DISCHARGE PLAN: Transfer to [facility] under 's care, (Neurosurgery to be consulted). ITEMS TO FOLLOWUP ON ON OUTPATIENT: 1. Metastatic breast cancer treatment with primary Hem/Onc team at [facility] DISCHARGE CONDITION: [Stable]. TIME SPENT ON DISCHARGE: Greater than 90 minutes. Vital Signs/I&Os Vital Signs Date Time Temp Pulse Resp B/P (MAP) Pulse Ox O2 Delivery O2 Flow Rate FiO2 06/18/20 01:31 20 Room Air 06/18/20 00:45 151/89 (109) 06/18/20 00:40 96 99 06/17/20 16:44 97.7 Laboratory Data Labs 24H Laboratory Tests 2 06/17/20 17:00: Immature Granulocyte % (Auto) 0.4, Neutrophils (%) (Auto) 68.4H, Lymphocytes (%) (Auto) 18.5L, Monocytes (%) (Auto) 12.3H, Eosinophils (%) (Auto) 0.1, Basophils (%) (Auto) 0.3, Neutrophils # (Auto) 7.0, Lymphocytes # (Auto) 1.9, Monocytes # (Auto) 1.3H, Eosinophils # (Auto) 0.0, Basophils # (Auto) 0.0, Nucleated Red Blood Cells % (auto) 0.0, Anion Gap 12, Glomerular Filtration Rate > 60.0, Calcium Level 9.2, Magnesium Level 1.6L, Iron Level 22L, Total Iron Binding Capacity 326, Transferrin % Saturation 6.7L, Ferritin 15, OJ-Vuy-J-Type Natriuretic Peptide 198H 06/17/20 18:51: POC Troponin I (Misc) 0.01 06/17/20 19:25: Coronavirus (COVID-19)(PCR) NEGATIVE, Influenza Type A (RT-PCR) NEGATIVE, Influenza Type B (RT-PCR) NEGATIVE, Respiratory Syncytial Virus (PCR) NEGATIVE 06/17/20 19:33: Lactic Acid Level 1.4 06/18/20 01:47: Urine Color PRESLEY, Urine Appearance CLOUDYH, Urine pH 5.0, Urine Specific [place] 1.029, Urine Protein 1+H, Urine Glucose (Auto)(UA) NEGATIVE, Urine Keto monisha (Auto) 2+H, Urine Blood NEGATIVE, Urine Nitrite NEGATIVE, Urine Bilirubin NEGATIVE, Urine Urobilinogen 2.0H, Urine Leukocyte Esterase (Auto) 1+H, Urine WBC (Auto) 2, Urine RBC (Auto) 5H, Urine Hyaline Casts (Auto) 0, Urine Bacteria (Auto) NEGATIVE, Urine Squamous Epithelial Cells 15, Urine Calcium Oxalate Cryst (Auto) SMALL, Urine Mucus (Auto) SMALL, Urine Yeast-Like Cells (Auto) SMALLH, Urine Sperm (Auto) CBC/BMP Laboratory Tests 06/17/20 17:00 Microbiology Microbiology 06/17/20 Blood Culture, Received Pending 06/17/20 Blood Culture, Received Pending Discharge Medications Scheduled Acetazolamide (Acetazolamide) 250 Mg Tablet, 500 MG PO BID, (Reported) Apixaban (Eliquis) 5 Mg Tablet, 5 MG PO BID, (Reported) Buprenorphine HCl/Naloxone HCl (Buprenorphn-Naloxn 2-0.5 mg Sl) 1 Each Tab.subl, 1 TAB SL DAILY, (Reported) Docusate Sodium (Dok) 100 Mg Tablet, 100 MG PO BID, (Reported) Folic Acid (Folic Acid) 1 Mg Tab, 1 MG PO DAILY, (Reported) Magnesium Oxide (Magnesium Oxide) 400 Mg Tablet, 400 MG PO DAILY, (Reported) Mycophenolate Mofetil (Cellcept) 500 Mg Tab, 1,000 MG PO BID, (Reported) Mycophenolate Mofetil (Mycophenolate Mofetil) 500 Mg Tablet, 500 MG PO DAILY, (Reported) NOON Pantoprazole Sodium (Pantoprazole Sodium) 40 Mg Tablet.dr, 40 MG PO DAILY, (Reported) Potassium Chloride (Potassium Chloride) 20 Meq Tablet.er, 20 MEQ PO DAILY Pyridostigmine [place] (Mestinon) 60 Mg Tab, 90 MG PO QID, (Reported) Ropinirole HCl (Ropinirole HCl) 2 Mg Tablet, 2 MG PO QHS, (Reported) Tamoxifen Citrate (Tamoxifen Citrate) 20 Mg Tablet, 20 MG PO DAILY Venlafaxine HCl (Venlafaxine HCl ER) 75 Mg Cap.er.24h, 225 MG PO DAILY, (Reported) Scheduled PRN Acetaminophen (Acetaminophen) 325 Mg Tablet, 975 MG PO Q8H PRN for PAIN, (Reported) Baclofen (Baclofen) 10 Mg Tablet, 10 MG PO TID PRN for MUSCLE SPASMS, (Reported) Diphenhydramine HCl (Diphenhydramine HCl) 25 Mg Capsule, 50 MG PO QHS PRN for ANXIETY, (Reported) Hydrocodone/Acetaminophen (Hydrocodone-Acetamin 5-325 mg) 1 Each Tablet, 1 TAB PO QID PRN for PAIN, (Reported) Ondansetron (Ondansetron Odt) 4 Mg Tab.rapdis, 4 MG PO Q6-8HP PRN for nausea/vo miting, (Reported) Polyethylene Glycol 3350 (Miralax) 119 Gm Powder, 17 GM PO DAILY PRN for CONSTIPATION, (Reported) dilute in 8 ounces of water or juice Sennosides (Senna) 8.6 Mg Tablet, 2 TAB PO QHS PRN for CONSTIPATION, (Reported) Miscellaneous Medications [Med Rec Comment] , (Reported) SPOKE WITH SPOUSE,PATIENT WAS DISCHARGED FROM [facility] TODAY HE IS UNSURE OF LAST DOSAGES.NOTHING LISTED ONLINE FOR [facility] Allergies Coded Allergies: amitriptyline (Verified Allergy, Severe, SWELLING, 11/29/19) Grass (Verified Allergy, Mild, ITCHY EYES,NOSE, 11/29/19) TAPE (Verified Allergy, Mild, RASH/BLISTER, 11/29/19) TREES (Verified Allergy, Mild, ITCHY EYES,NOSE, 11/29/19) adhesive (Verified Allergy, Unknown, 11/29/19) divalproex sodium (Verified Allergy, Unknown, 11/29/19) minocycline (Verified Allergy, Unknown, 11/29/19) mold (Verified Allergy, Unknown, 11/29/19) tetracycline (Verified Allergy, Unknown, 11/29/19) bupropion (Verified Adverse Reaction, Intermediate, ESOPHAGEAL SPASMS, 11/29/19) banana (Verified Adverse Reaction, Mild, VOMITING, 11/29/19) benztropine (Verified Adverse Reaction, Mild, BLURRED VISION, 11/29/19) clindamycin (Verified Adverse Reaction, Mild, HEART BURN, 11/29/19) gabapentin (Verified Adverse Reaction, Mild, extreme weakness, 11/29/19) metaxalone (Verified Adverse Reaction, Mild, itching, 11/29/19) pregabalin (Verified Adverse Reaction, Mild, EDEMA, 11/29/19) sulfamethoxazole (Verified Adverse Reaction, Mild, DIARRHEA, 11/29/19) tizanidine (Verified Adverse Reaction, Mild, ITCHING, 11/29/19) trazodone (Verified Adverse Reaction, Mild, EDEMA, 11/29/19) trimethoprim (Verified Adverse Reaction, Mild, DIARRHEA, 11/29/19) vilazodone (Verified Adverse Reaction, Mild, MOOD CHANGES, 11/29/19) cyclobenzaprine (Verified Adverse Reaction, Unknown, IRRITABILITY, 11/29/19) valproic acid (Unverified Adverse Reaction, Unknown, DOES NOT METABOLIZE, 11/29/19) ALEXIA TORRES MD Jun 18, 2020 03:28
[2020-06-18 04:55] VITALS: BP 176/89
[2020-06-18] MEDS ORDERED: VENLAFAXINE **XR** 75MG CAPSULE PO SCH (09:00)
[2020-06-18] MEDS ORDERED: MAGNESIUM OXIDE 400MG TAB (MAG-OX) PO SCH (09:00)
[2020-06-18] MEDS ORDERED: TAMOXIFEN CITRATE 10 MG TAB PO SCH (09:00)
[2020-06-18] MEDS ORDERED: FOLIC ACID 1 MG TAB PO SCH (09:00)
[2020-06-18] MEDS ORDERED: POTASSIUM CHLORIDE 10 MEQ SR TABLET PO SCH (09:00)
[2020-06-18] MEDS ORDERED: PANTOPRAZOLE 40MG TAB (PROTONIX) PO SCH (09:00)
[2020-06-18] MEDS ORDERED: BUPRENORPHINE/NALOXONE 2-0.5MG SUBLINGUAL TABLET(SUBOXONE) SL SCH (09:00)
[2020-06-18 10:57] LABS: FOLATE > 24.0 NG/ML; VITAMIN B12 LEVEL 674 PG/ML
[2020-06-18] MEDS ORDERED: MYCOPHENOLATE MOFETIL 250 MG CAP (J7517) PO SCH (12:00)
--- NOTE | 2020-06-20 11:51 | IPNPDOC ---
Date Seen The patient was seen on 06/20/20. Progress Note Bacteriology called re: blood culture: yeast plan: -called [facility] at [phone] -faxed copy of blood culture results to [phone] ATTN: Dr. Graves VS, I&O, 24H, Fishbone Vital Signs/I&O Vital Signs Date Time Temp Pulse Resp B/P (MAP) Pulse Ox O2 Delivery O2 Flow Rate FiO2 06/18/20 04:55 96.5 82 20 176/89 (118) 95 Room Air Laboratory Data Microbiology Microbiology 06/17/20 Blood Culture - Preliminary, Resulted Yeast Like Organism 06/17/20 Blood Culture - Preliminary, Resulted Yeast Like Organism IRENA CHUA MD Jun 20, 2020 11:51
== END 2020-06-18 04:58 | disposition other institution (70) | DRG 41 ==
LOC: M ED 15:51 → M ED INP 20:31 → ENRESERV 21:18
PROVIDERS: ADMIT Internal Medicine; ATTEND Internal Medicine
DX: C79.31 Secondary malignant neoplasm of brain (principal); G93.40 Encephalopathy, unspecified; R65.10 Systemic inflammatory response syndrome (SIRS) of non-infectious origin without acute organ dysfunction; G70.00 Myasthenia gravis without (acute) exacerbation; G47.33 Obstructive sleep apnea (adult) (pediatric); F32.9 Major depressive disorder, single episode, unspecified; K21.9 Gastro-esophageal reflux disease without esophagitis; I34.1 Nonrheumatic mitral (valve) prolapse; E87.6 Hypokalemia; D64.9 Anemia, unspecified; J30.1 Allergic rhinitis due to pollen; I16.0 Hypertensive urgency; Z79.01 Long term (current) use of anticoagulants; Z85.3 Personal history of malignant neoplasm of breast; Z20.822 Contact with and (suspected) exposure to COVID-19; Z79.899 Other long term (current) drug therapy; Z88.1 Allergy status to other antibiotic agents; Z88.2 Allergy status to sulfonamides; Z88.8 Allergy status to other drugs, medicaments and biological substances; Z91.048 Other nonmedicinal substance allergy status; Z92.21 Personal history of antineoplastic chemotherapy; Z92.3 Personal history of irradiation